=== PATIENT | female | born 1955 | race African-American/Black ===

== ENCOUNTER 2016-02-19 10:07 | Inpatient (IN) | payer OTHER ==
[~2016-02-19 10:07] MED LIST: PATIENT'S OWN MEDICATION (NON-FORMULARY) (Insulin Glargine,Hum.Rec.Anlog 15 UNITS) NS SCH
[2016-02-19] MEDS ORDERED: ALBUTEROL SO4 2.5/IPRATROPIUM 0.5 INH SOL 3 ML VIAL.NEB. NEB ONE ×4 (10:18→10:19)
[2016-02-19] MEDS ORDERED: methylPREDNISolone NA SUCC 125 MG/2 ML VIAL IVPB ONE (10:18)
--- NOTE | 2016-02-19 10:20 | PDOC ---
History of Present Illness - History of Present Illness Initial Comments: 02/19/16 11:36 The patient is a 60 year old female with a past medical hx of diabetes, asthma, HTN, seizure disorder, reflux, hyperlipidemia, hypothyroidism who presents to the ED complaining of SOB and a cough for one week. The patient notes she saw Dr. Hyde 6 days ago and was prescribed Prednisone, and her SOB has not improved. She is scheduled to see Dr. Hyde tomorrow, but was informed to come to the ED if her symptoms worsened within the week. She notes dyspnea on exertion. She states she has a Nebulizer at home and uses it 2-3 times daily with minimal relief. if not feel better then ed. The patient reports feeling this way for about 6 weeks, and was last seen in the ED on 01/28/16. The patient reports a productive cough (yellow, green sputum) that is worse in the morning and on exertion. The patient reports the last time she was given Prednisone for her SOB was about one year ago. The patient denies chest pain The patient denies abdominal pain, nausea, vomiting The patient denies dysuria frequency Allergies: Penicillin, Gabapentin Social: Former smoker Surgical: R hip replacement, bilateral knee arthroscopy, bilateral bunionectomy , cholecystectomy. PCP: Dr. Hernandez Category Consultant: Dr. Hyde <Qi Orourke - Last Filed: 02/19/16 16:31> - General History Source: Patient Exam Limitations: No Limitations <Lisbet Simpson - Last Filed: 02/20/16 08:20> - General Stated Complaint: DIFF BREATHING AND CHEST PAIN Time Seen by Provider: 02/19/16 10:17 Past History <Qi Orourke - Last Filed: 02/19/16 16:31> - Past Medical History Anemia: No Asthma: Yes Cancer: No Cardiac Disorders: No CVA: No COPD: Yes CHF: No Dementia: No Diabetes: Yes (IDDM) GI Disorders: Yes (REFLUX) Disorders: No HTN: Yes Hypercholesterolemia: Yes Liver Disease: No Seizures: Yes Thyroid Disease: Yes (HYPO) - Surgical History Abdominal Surgery: No Appendectomy: No Cardiac Surgery: No Cholecystectomy: Yes Lung Surgery: No Neurologic Surgery: No Orthopedic Surgery: Yes (08/2014 R HIP REPLACEMENT, BILAT KNEE ARTHROSCOPY, BILAT BUNIONECTOMY,) - Immunization History Immunization Up to Date: Yes - Psycho/Social/Smoking Cessation Hx Anxiety: No Suicidal Ideation: No Smoking Status: Yes Smoking History: Never smoked Have you smoked in the past 12 months: No Number of Cigarettes Smoked Daily: 0 If you are a former smoker, when did you quit?: 2004 Hx Alcohol Use: No Drug/Substance Use Hx: No Substance Use Type: None Hx Substance Use Treatment: No <Lisbet Simpson - Last Filed: 02/20/16 08:20> - Past Medical History Allergies/Adverse Reactions: Allergies Allergy/AdvReac Type Severity Reaction Status Date / Time gabapentin [From Neurontin] Allergy PALPITATIONS, Verified 02/19/16 10:22 PASSES OUT Penicillins Allergy TONGUE Verified 02/19/16 10:22 Swelling phenytoin sodium Allergy diarrhea/vo Verified 02/19/16 10:22 [From Dilantin] miting phenytoin sodium extended Allergy Verified 02/19/16 10:22 [From Dilantin] theophylline [Theophylline] Allergy diarrhea,SE Verified 02/19/16 10:22 IZURES Home Medications: Ambulatory Orders Albuterol Sulfate Inhaler - [Ventolin HFA Inhaler -] 1 - 2 inh PO QID PRN Aspirin/Calcium Carbonate/Mag [Aspirin Buffered 325 mg Tab] 325 mg PO BID Atorvastatin Ca [Lipitor] 10 mg PO DAILY 10/20/15 Biotin [Hard Nails] 5,000 mcg PO DAILY 10/20/15 Budesonide/Formeterol Fumarate [SYMBICORT 160/4.5mcg -] 1 inh PO BID 10/20/15 Carbamazepine Xr [Tegretol Xr -] 400 mg PO BID 10/20/15 Cyclobenzaprine HCl [Flexeril -] 10 mg PO BID PRN 10/20/15 Exenatide [Byetta [Non-Formulary]] 10 mcg SQ BID 10/20/15 Folic Acid 2 mg PO DAILY 10/20/15 Glipizide [Glipizide ER] 10 mg PO BID 10/20/15 Hydroxychloroquine Sulfate [Plaquenil] 200 mg PO BID 10/20/15 Insulin Glargine,Hum.rec.anlog [Lantus (nf)] 15 units SQ DAILY 10/20/15 Insulin Lispro [Humalog] 0 unit SQ ACHS 10/20/15 L.acidop,Daren,Lac,Rha/B.lac,Edmundo [Advanced Probiotic Capsule] 625 mg PO DAILY 06/29 Levothyroxine [Synthroid -] 50 mcg PO DAILY 10/20/15 Linaclotide [Linzess] 145 mcg PO DAILY 10/20/15 Losartan Potassium 50 mg PO DAILY 10/20/15 Meloxicam [Mobic (Nf) -] 15 mg PO DAILY 10/20/15 Methotrexate [Mexate -] 12.5 mg PO Q7D 10/20/15 Montelukast Na [Singulair -] 10 mg PO DAILY 10/20/15 [place]-3 Fatty Acids [[place]-3] 2 tab PO DAILY 10/20/15 Omeprazole [Prilosec] 40 mg PO DAILY 10/20/15 Sertraline HCl [Zoloft -] 100 mg PO DAILY 10/20/15 Topiramate [Trokendi Xr] 100 mg PO BID 10/20/15 Umeclidinium [place] [Incruse Ellipta] 62.5 mcg IH ASDIR 10/20/15 Review of Systems - Review of Systems Able to Perform ROS?: Yes Comments:: 02/19/16 11:48 GENERAL/CONSTITUTIONAL: No: fever, chills, weakness, loss of appetite. HEAD, EYES, EARS, NOSE AND THROAT: No: change in vision, ear pain, discharge, sore throat, throat swelling. CARDIOVASCULAR: No: chest pain, lightheadedness, palpitations, syncope RESPIRATORY: +SOB, wheezing, cough, dyspnea on exertion. No: hemoptysis, stridor. GASTROINTESTINAL: No: nausea, vomiting, abdominal cramping, diarrhea, rectal bleeding, constipation. GENITOURINARY: No: dysuria, hematuria, frequency, urgency, flank pain. MUSCULOSKELETAL: No: back pain, neck pain, joint pain, muscle swelling or pain SKIN: No: lesions, pallor, rash or easy bruising. NEUROLOGIC: No: headache, vertigo, paresthesias, weakness ENDOCRINE: No: unexplained weight gain or loss HEMATOLOGIC/LYMPHATIC: No: anemia, easy bleeding, swelling nodes <Qi Orourke - Last Filed: 02/19/16 16:31> *Physical Exam - Vital Signs Last Vital Signs Temp Pulse Resp BP Pulse Ox 98.2 F 86 20 151/86 96 02/19/16 10:12 02/19/16 10:12 02/19/16 10:12 02/19/16 10:12 02/19/16 10:12 - Physical Exam Comments: 02/19/16 11:49 GENERAL: The patient is in mild distress. HEAD: Normal with no signs of trauma. EYES: PERRLA, EOMI, sclera anicteric, conjunctiva clear. ENT: Ears normal, nares patent, oropharynx clear without exudates. Moist mucous membranes. NECK: Normal range of motion, supple without lymphadenopathy, JVD, or masses. LUNGS: +Mild respiratory distress, inspiratory and expiratory wheezes, rhonchi. HEART:Regular rate and rhythm, normal S1 and S2 without murmur, rub or gallop. ABDOMEN: Soft, nontender, normoactive bowel sounds. No guarding, no rebound. EXTREMITIES: Normal range of motion, no edema. No clubbing or cyanosis. No erythema, or tenderness. NEUROLOGICAL: Cranial nerves II through XII grossly intact. Normal speech. No focal neurological deficits. MUSCULOSKELETAL: Back nontender to palpation, no CVA tenderness SKIN: Warm, Dry, normal turgor, no rashes or lesions noted. <Qi Orourke - Last Filed: 02/19/16 16:31> Heart Score/ECG Review #1 ECG reviewed & interpreted by me at: 10:27 02/19/16 10:27 Twelve-lead EKG was performed and reviewed by me. There is normal sinus rhythm with a normal rate of 80 bpm. The axis is normal. The intervals are normal - pr : 158ms, QRS::78ms, QTc:454ms. There are no ST elevations or depressions. T waves nml <Lisbet Simpson - Last Filed: 02/20/16 08:20> ED Treatment Course - LABORATORY CBC & Chemistry Diagram: 02/19/16 10:30 02/19/16 10:30 - ADDITIONAL ORDERS Additional order review: Laboratory Results 02/19/16 10:30 Sodium 144 Potassium 4.7 Chloride 108 H Carbon Dioxide 26 Anion Gap 10 BUN 16 D Creatinine 1.0 Creat Clearance w eGFR 56.75 Random Glucose 110 H Calcium 8.3 L Total Bilirubin 0.3 D AST 50 H D ALT 25 Alkaline Phosphatase 125 H D Creatine Kinase 318 H D Troponin I 0.02 Total Protein 7.4 Albumin 3.1 L 02/19/16 10:30 RBC 3.84 MCV 89.8 MCHC 32.3 RDW 16.4 H MPV 7.3 L Neutrophils % 43.8 D Lymphocytes % 43.3 H D Monocytes % 10.9 H Eosinophils % 0.8 Basophils % 1.2 - RADIOLOGY Radiograph Interpretation: 02/19/16 11:56 Chest X-Ray A single view reveals a weak inspiration with congestive changes, rotation to the left and prominent mediastinum. Since 01/28/2016, the congestive changes have developed. Impression: Weak inspiration. Prominent mediastinum. Congestive changes. Reported By: Morgan Dawson MD 02/19/16 1103 02/19/16 16:31 Chest/Thorax CTA IMPRESSION: 1. No evidence of pulmonary embolism. 2. Limited study with chronic lung disease and no acute pathology within the chest. Reported By: Robbie Chester MD 02/19/16 1621 - Medications Given in the ED: ED Medications Discontinued Medications Generic Name Dose Route Start Last Admin Trade Name Freq PRN Reason Stop Dose Admin Albuterol/Ipratropium 1 amp 02/19/16 10:18 02/19/16 10:24 Duoneb - NEB 02/19/16 10:19 1 amp ONCE ONE Administration Albuterol/Ipratropium 1 amp 02/19/16 10:19 02/19/16 10:53 Duoneb - NEB 02/19/16 10:20 1 amp NOW ONE Administration Albuterol/Ipratropium 1 amp 02/19/16 10:19 02/19/16 10:53 Duoneb - NEB 02/19/16 10:20 1 amp ONCE ONE Administration Methylprednisolone Sodium Succinate 125 mg 02/19/16 10:18 02/19/16 10:53 Solu-Medrol - IVPB 02/19/16 10:19 125 mg ONCE ONE Administration <Qi Orourke - Last Filed: 02/19/16 16:31> - LABORATORY CBC & Chemistry Diagram: 02/19/16 10:30 02/19/16 10:30 - RADIOLOGY Radiology Studies Ordered: Category Date Time Status CHEST X-RAY PORTABLE* [RAD] Stat Radiology 02/19/16 10:18 Ordered <Lisbet Simpson - Last Filed: 02/20/16 08:20> Medical Decision Making - Medical Decision Making 02/19/16 11:[address] Hyde at 1054, awaiting call back. 02/19/16 11:50 Paged Hospitalist at 11:53. Hospitalist called back at 1200. Agrees with plan for admission. <Qi Orourke - Last Filed: 02/19/16 16:31> - Medical Decision Making 02/19/16 10:20 A portion of this note was documented by scribe services under my direction. I have reviewed the details of the note, within reason, and agree with the documentation with the following case summary and management plan written by me. Nursing documentation reviewed and incorporated into medical decision making 02/19/16 12:01 This is a 60-year-old female with a history of asthma, lupus on methotrexate who presents emergency department with severe shortness of breath Patient states that her symptoms began mid December and have been persistent and worsening Pt has had intermittent fevers PT was seen by Dr Alvarenga with no improvement in symptoms despite nebs and prednisone Pt states she felt worse today and came in to the ER for evaluation PT given Solumedrol, Nebs 02/19/16 12:05 Laboratory Tests 02/19/16 02/19/16 10:30 10:30 WBC 9.2 Hgb 11.1 Hct 34.5 Plt Count 345 Neutrophils % 43.8 D Lymphocytes % 43.3 H D BUN 16 D Creatinine 1.0 Random Glucose 110 H Creatine Kinase 318 H D Troponin I 0.02 CXR: congestion, poor inspiratory effort Pt went to the bathroom and became very tachypneic Nebs given again Pt given Magnesium Will Admit Case reviewed with Dr. Alvarenga Will admit to Dr Caldwell <Lisbet Simpson - Last Filed: 02/20/16 08:20> *DC/Admit/Observation/Transfer - Attestations Scribe Attestion: 02/19/16 11:37 Documentation prepared by Qi Orourke, acting as medical record librarian for Lisbet Simpson MD/DO. <Qi Orourke - Last Filed: 02/19/16 16:31> - Discharge Dispostion Admit: Yes <Lisbet Simpson - Last Filed: 02/20/16 08:20> Diagnosis at time of Disposition: Asthma exacerbation - Discharge Dispostion Condition at time of disposition: Stable - Referrals
[2016-02-19] MEDS ORDERED: methylPREDNISolone NA SUCC 125 MG/2 ML VIAL ONE ×2 (10:51→14:02)
[2016-02-19 11:00] LABS: BASOPHIL 1.2 % (0-2.0); EOSINOPHIL 0.8 % (0-4.5); MCHC 32.3 g/dl (32.0-36.0); MEAN CELL VOLUME 89.8 fl (80-96); MEAN PLT VOLUME 7.3 fl (7.5-11.1); NEUTROPHILS 43.8 % (42.8-82.8); PLATELET COUNT 345 K/MM3 (134-434); RDW 16.4 % (11.6-15.6); WHITE BLOOD COUNT 9.2 K/mm3 (4.0-10.0)
[2016-02-19] MEDS ORDERED: MAGNESIUM SULF 50% (8.12 MEQ/2 ML-1 GM VIAL) IVPB ONE ×2 (11:19→11:48)
[2016-02-19 11:20] LABS: ALBUMIN 3.1 g/dl (3.4-5.0); BILIRUBIN,TOTAL 0.3 mg/dL (0.2-1.0); CALCIUM 8.3 mg/dL (8.5-10.1); TOT PROT 7.4 g/dl (6.4-8.2)
[2016-02-19] MEDS ORDERED: MAGNESIUM SULF 50% (8.12 MEQ/2 ML-1 GM VIAL) ONE (11:20)
[2016-02-19 11:22] LABS: TROPONIN I 0.02 ng/ml (0.00-0.05)
[2016-02-19] MEDS: ALBUTEROL SO4 2.5/IPRATROPIUM 0.5 INH SOL 3 ML VIAL.NEB. NEB SCH ×2 (12:30→23:13)
[2016-02-19] MEDS ORDERED: ALBUTEROL SO4 2.5/IPRATROPIUM 0.5 INH SOL 3 ML VIAL.NEB. NEB PRN (13:56)
[2016-02-19] MEDS: methylPREDNISolone NA SUCC 40 MG/1 ML VIAL IVPB SCH ×2 (14:06→18:53)
--- NOTE | 2016-02-19 14:31 | HP ---
CHIEF COMPLAINT: PCP: Dr. Hernandez Corner Cutter: Dr. Hyde HISTORY OF PRESENT ILLNESS: The patient is a 60 year old female, with a significant past medical history of asthma,slupus, seizure (last 2009), syncope, COPD, sleep apnea on cpap, type 2 DM, hyperlipidemia, hypothyroidism,who presents to ED with SOB. patient reports progressive SOb started about a month ago. reports an associated non bloody productive(clear, yellow/green). patient rports using her reports using her rescue inhaler with increased frequency without any help so decided to come to ED.patient is compliant with all her medications, including her asthma meds. patient visited Dr Gibbs (pulmonary) 6 days ago and on a prednisone taper, nebulizers, inhalers patient continued to worsen. patient was instructed by Dr. gibbs to go to ED if symptoms worsen. patient also reports constant chest pain that is stabbing radiating to the back especially with coughing. She notes dyspnea on exertion. Patient reports a new bilateral food swelling and redness that started 1month ago. Patient no history of intubtion 2/2 to asthma exacerbation. The patient denies fever, chills, cough, hemoptysis, diaphoresis, shortness of breath, headache, jaw, calf tenderness/ pain The patient denies recent travel, recent surgery, recent immobilization. The patient denies abdominal pain,nausea, vomiting, diarrhea, hematochezia, melena ER course was notable for: (1)EKG, oxygen (2)UA, CBC w/ diff, cmp, cardiac profile (3)albuterol/ipratropium, Magnesium, methylpredisolone Recent Travel: NO Allergies: Penicillin, Gabapentin Social: Former smoker Surgical: R hip replacement, bilateral knee arthroscopy, bilateral bunionectomy , cholecystectomy. Family History: Allergies gabapentin [From Neurontin] Allergy (Verified 02/19/16 10:22) PALPITATIONS, PASSES OUT Penicillins Allergy (Verified 02/19/16 10:22) TONGUE Swelling phenytoin sodium [From Dilantin] Allergy (Verified 02/19/16 10:22) diarrhea/vomiting phenytoin sodium extended [From Dilantin] Allergy (Verified 02/19/16 10:22) theophylline [Theophylline] Allergy (Verified 02/19/16 10:22) diarrhea,SEIZURES HOME MEDICATIONS: Medication Instructions Recorded Albuterol Sulfate Inhaler - 1 - 2 inh PO QID PRN 01/04/13 [Ventolin HFA Inhaler -] Aspirin/Calcium Carbonate/Mag 325 mg PO BID 10/20/15 [Aspirin Buffered 325 mg Tab] Atorvastatin Ca [Lipitor] 10 mg PO DAILY 10/20/15 Biotin [Hard Nails] 5,000 mcg PO DAILY 10/20/15 Budesonide/Formeterol Fumarate 1 inh PO BID 10/20/15 [SYMBICORT 160/4.5mcg -] Carbamazepine Xr [Tegretol Xr -] 400 mg PO BID 10/20/15 Cyclobenzaprine HCl [Flexeril -] 10 mg PO BID PRN 10/20/15 Exenatide [Byetta [Non-Formulary]] 10 mcg SQ BID 10/20/15 Folic Acid 2 mg PO DAILY 10/20/15 Glipizide [Glipizide ER] 10 mg PO BID 10/20/15 Hydroxychloroquine Sulfate 200 mg PO BID 10/20/15 [Plaquenil] Insulin Glargine,Hum.rec.anlog 15 units SQ DAILY 10/20/15 [Lantus (nf)] Insulin Lispro [Humalog] 0 unit SQ ACHS 10/20/15 L.acidop,Daren,Lac,Rha/B.lac,Edmundo 625 mg PO DAILY 10/20/15 [Advanced Probiotic Capsule] Levothyroxine [Synthroid -] 50 mcg PO DAILY 10/20/15 Linaclotide [Linzess] 145 mcg PO DAILY 10/20/15 Losartan Potassium 50 mg PO DAILY 10/20/15 Meloxicam [Mobic (Nf) -] 15 mg PO DAILY 10/20/15 Methotrexate [Mexate -] 12.5 mg PO Q7D 10/20/15 Montelukast Na [Singulair -] 10 mg PO DAILY 10/20/15 [place]-3 Fatty Acids [[place]-3] 2 tab PO DAILY 10/20/15 Omeprazole [Prilosec] 40 mg PO DAILY 10/20/15 Sertraline HCl [Zoloft -] 100 mg PO DAILY 10/20/15 Topiramate [Trokendi Xr] 100 mg PO BID 10/20/15 Umeclidinium [place] [Incruse 62.5 mcg IH ASDIR 10/20/15 Ellipta] Active Medications Generic Name Dose Route Start Last Admin Trade Name Freq PRN Reason Stop Dose Admin Albuterol Sulfate 2 puff 02/19/16 17:21 Ventolin Hfa Inhaler - IH Q6H PRN ASTHMA Albuterol Sulfate 1 puff 02/19/16 18:09 Ventolin Hfa Inhaler - IH Q6H PRN ASTHMA Albuterol/Ipratropium 1 amp 02/19/16 12:00 02/19/16 12:30 Duoneb - NEB 1 amp QIDR [facility] Administration Atorvastatin Calcium 10 mg 02/19/16 22:00 Lipitor - PO HS [facility] Budesonide/Formoterol Fumarate 1 puff 02/19/16 22:00 Symbicort 160/4.5mcg - IH BID [facility] Carbamazepine 400 mg 02/19/16 22:00 Tegretol Xr - PO BID [facility] Cyclobenzaprine HCl 10 mg 02/19/16 17:21 Flexeril - PO BID PRN PAIN Folic Acid 2 mg 02/20/16 10:00 Folic Acid - PO DAILY [facility] Heparin Sodium (Porcine) 5,000 unit 02/19/16 22:00 Heparin - SQ TID [facility] Hydroxychloroquine Sulfate 200 mg 02/19/16 22:00 Plaquenil - PO BID [facility] Insulin Aspart 0 units 02/19/16 22:00 Novolog Vial SQ ACHS [facility] Protocol Levothyroxine Sodium 50 mcg 02/20/16 07:00 Synthroid - PO DAILY@0700 [facility] Losartan Potassium 50 mg 02/20/16 10:00 Cozaar - PO DAILY [facility] Methotrexate 12.5 mg 02/19/16 17:00 Mexate - PO Q7D [facility] Methylprednisolone Sodium Succinate 60 mg 02/19/16 14:00 02/19/16 18:53 Solu-Medrol - IVPB 60 mg Q8H-IV [facility] Administration Montelukast Sodium 10 mg 02/20/16 10:00 Singulair - PO DAILY [facility] Non-Formulary Medication 325 mg 02/19/16 22:00 Aspirin/Calcium Carbonate/Mag [Aspirin Buffered 325 Mg Tab] PO BID [facility] Non-Formulary Medication 5,000 mcg 02/20/16 10:00 Biotin [Hard Nails] PO DAILY [facility] Non-Formulary Medication 15 units 02/19/16 10:00 Insulin Glargine,Hum.Rec.Anlog NS DAILY [facility] Non-Formulary Medication 625 mg 02/20/16 10:00 L.Acidop,Daren,Lac,Rha/B.Lac,Edmundo [Advanced Probiotic Capsule] PO DAILY [facility] Non-Formulary Medication 145 mcg 02/20/16 10:00 Linaclotide [Linzess] PO DAILY DONTA Non-Formulary Medication 15 mg 02/20/16 10:00 Meloxicam PO DAILY DONTA Non-Formulary Medication 2 tab 02/20/16 10:00 [place]-3 Fatty Acids [[place]-3] PO DAILY DONTA Non-Formulary Medication 100 mg 02/19/16 22:00 Topiramate [Trokendi Xr] PO BID DONTA Non-Formulary Medication 62.5 mcg 02/19/16 17:00 Umeclidinium [place] [Incruse Ellipta] IH ASDIR [facility] Pantoprazole Sodium 40 mg 02/20/16 10:00 Protonix - PO DAILY [facility] Sertraline HCl 100 mg 02/20/16 10:00 Zoloft - PO DAILY [facility] REVIEW OF SYSTEMS CONSTITUTIONAL: obese changed voice. Absent: fever, chills, diaphoresis, generalized weakness, malaise, loss of appetite, weight change, HEENT: Absent: rhinorrhea, nasal congestion, throat pain, throat swelling, difficulty swallowing, mouth swelling, ear pain, eye pain, visual changes CARDIOVASCULAR: chest pain, peripheral edema Absent: syncope, palpitations, irregular heart rate, lightheadedness, RESPIRATORY: cough, shortness of breath, dyspnea with exertion, orthopnea, wheezing, Absent: stridor, hemoptysis GASTROINTESTINAL:nausea, vomiting, Absent: abdominal pain, abdominal distension, diarrhea, constipation, melena, hematochezia GENITOURINARY: Absent: dysuria, frequency, urgency, hesitancy, hematuria, flank pain, genital pain MUSCULOSKELETAL: myalgia,arthralgia, joint swelling, back pain, Absent: neck pain SKIN: Absent: rash, itching, pallor HEMATOLOGIC/IMMUNOLOGIC: Absent: easy bleeding, easy bruising, lymphadenopathy, frequent infections ENDOCRINE: Absent: unexplained weight gain, unexplained weight loss, heat intolerance, cold intolerance NEUROLOGIC: Absent: headache, focal weakness or paresthesias, dizziness, unsteady gait, seizure, mental status changes, bladder or bowel incontinence PSYCHIATRIC: Absent: anxiety, depression, suicidal or homicidal ideation, hallucinations. PHYSICAL EXAMINATION GENERAL: Awake, alert, and fully oriented, in respiratory acute distress. mermaid obese changed voice. HEAD: Normal with no signs of trauma. EYES: Pupils equal, round and reactive to light, extraocular movements intact, sclera anicteric, conjunctiva clear. No lid lag. EARS, NOSE, THROAT: Ears normal, nares patent, oropharynx clear without exudates. Moist mucous membranes. NECK: Normal range of motion, supple without lymphadenopathy, JVD, or masses. LUNGS: Breath sounds equal, clear to auscultation bilaterally. wheezes right middle lobe , diffused rhonchi , and no crackles. No accessory muscle use. 2L NC saturating 94% HEART: distent heart sounds, not appreciated ABDOMEN: obese, Soft, nontender, not distended, normoactive bowel sounds, no guarding, no rebound, no masses. No hepatomegaly or splenomegaly. MUSCULOSKELETAL: Normal range of motion at all joints. No bony deformities or tenderness. No CVA tenderness. LOWER EXTREMITIES: 2+ pulses, warm, well-perfused. No calf tenderness. No peripheral edema. NEUROLOGICAL: Cranial nerves II-XII intact. Normal gait. PSYCHIATRIC: Cooperative. Good eye contact. Appropriate mood and affect. SKIN: Warm, dry, normal turgor, no rashes or lesions noted. US lower ext: Left lower leg soft tissue swelling, no DVT CTA chest: There is good opacification of the central pulmonary vasculature with no filling defects suspicious for pulmonary embolism. The lung griggs are free of pulmonary masses, areas of acute consolidation or pleural effusions. There are areas of groundglass opacification scattered throughout the lungs, as well as platelike atelectasis within the left lower lobe. These changes are most likely chronic in nature. Clinical correlation is advised. No mediastinal masses, fluid collections or significant lymphadenopathy are identified. The heart is not enlarged. There is no evidence of thoracic aortic aneurysm or dissection. Limited evaluation of the upper abdomen demonstrates no acute abnormalities. IMPRESSION: 1. No evidence of pulmonary embolism. 2. Limited study with chronic lung disease and no acute pathology within the chest. EKG: Normal sinus, @ 80bpm, LA 158, Qrs 78, Qtc 454, normal axes, no st t wave changes,LVH, ASSESSMENT/PLAN: This is a 60 year old female with PMHx of asthma, morbid obesity, diabetes, lupus, seizures, who presented to the ED s/p progressive SOB found to be in an asthma exacerbation, also complained of chest pain. # respiratory acute distress, Shortness of breath, likely multifactorial, SOB refractory on asthma regiment with PO steroids, possibly secondary to SLE pulmonary manifestation chest pain 93% with out a pleural effusion, will need to r/o cardiac, infection, drug toxicity, malignancy, on CXR, leg swelling and SOB, CTA (no PE ,acute changes, chronic, no Aortic aneurism, no fluid collection) - echocardiogram - IV steroids - Continue Singulair - Continue Symbicort - Continue Duonebs - (Umeclidinium [place] [Incruse Ellipta]) 62.5 mcg - BNP - eccho -IV lasix trial -Pulmonary consult # chest Pain - Monitor on telemetry - Serial cardiac enzymes - chest CTA # Systemic lupus erythematosus: - Continue Plaquenil - Continue Methotrexate # lower leg erythema and swelling: possible cellulitis vs venous stasis. -US BLLE no DVT, soft tissue swelling. # Type 2 diabetes mellitus - levimir - ISS ACHS - BGM ACHS # Hypertension - Continue Cozaar # Hyperlipidemia - Continue Lipitor # Hypothyroidism - Continue Synthroid - Check TSH # CKD stage 3: - Cr stable, continue to monitor # Seizure disorder - Continue Topamax, Tegretol # Chronic back pain -Cyclobenzaprine HCl (Flexeril) #GERD -Pantoprazole Sodium # major Depression -Sertraline HCl (Zoloft -) # F/E/N: - Monitor electrolytes - Diabetic low Na+ diet # Prophylaxis: - OOB ambulating - SCDs bilaterally Visit type - Emergency Visit Emergency Visit: Yes ED Registration Date: 02/19/16 Care time: The patient presented to the Emergency Department on the above date and was hospitalized for further evaluation of their emergent condition. - New Patient This patient is new to me today: No - Critical Care Critical Care patient: No
--- NOTE | 2016-02-19 14:56 | PN ---
Teaching Attending Note Name of Resident: Raleigh Bell ATTENDING PHYSICIAN STATEMENT I saw and evaluated the patient. I reviewed the resident's note and discussed the case with the resident. I agree with the resident's findings and plan as documented. SUBJECTIVE: This is a 60-year-old woman with a history of asthma, HTN, type 2 DM , hyperlipidemia, hypothyroidism, lupus and seizure disorder who comes to the ER today complaining of shortness of breath. She has been having symptoms for about one month. She saw Dr. Hyde around one week ago and was prescribed a Prednisone taper which she is still taking. Despite Prednisone, inhalers and nebulizers, she has not improved. She also reports intermittent chest pain and swelling of her legs for about one month. OBJECTIVE: Last Vital Signs Temp Pulse Resp BP Pulse Ox 98.2 F 86 20 151/86 96 02/19/16 10:12 02/19/16 10:12 02/19/16 10:12 02/19/16 10:12 02/19/16 10:12 HEART: S1 S2, RRR LUNGS: Diminished BS, wheezes bilaterally ABDOMEN: Obese, soft, non-tender, non-distended, normal BS EXTREMITIES: 1+ edema ASSESSMENT AND PLAN: This is a 60-year-old woman with a history of asthma, HTN, type 2 DM, hyperlipidemia, hypothyroidism, lupus and seizure disorder who presented to the ER with shortness of breath. 1. Asthma exacerbation - Failed outpatient treatment with Prednisone - SoluMedrol, DuoNeb - Continue Singulair - Chest CTA - Pulmonary consult 2. Possible acute CHF - Lasix IV x 1 - Check BNP - Echocardiogram 3. Chest pain - Monitor on telemetry - Serial troponins - Echocardiogram 4. Hypertension - Continue Cozaar 5. Hyperlipidemia - Continue Lipitor 6. Type 2 diabetes mellitus - Hold Glipizide, Byetta - Continue Lantus - Fingersticks with Novolog sliding scale 7. Hypothyroidism - Continue Synthroid 8. Seizure disorder - Continue Tegretol, Topamax 9. Lupus - Continue Plaquenil, Methotrexate 10. Stage 3 CKD - Stable
--- NOTE | 2016-02-19 16:38 | EKG ---
Test Reason : Blood Pressure : / mmHG Vent. Rate : 080 BPM Atrial Rate : 080 BPM P-R Int : 158 ms QRS Dur : 078 ms QT Int : 394 ms P-R-T Axes : 036 -20 050 degrees QTc Int : 454 ms NORMAL SINUS RHYTHM VOLTAGE CRITERIA FOR LEFT VENTRICULAR HYPERTROPHY NONSPECIFIC ST ABNORMALITY ABNORMAL ECG WHEN COMPARED WITH ECG OF 28-JAN-2016 10:53, NO SIGNIFICANT CHANGE WAS FOUND Confirmed by ROSYS RODRIGUES MD ([id number]) on 02/19/2016 4:37:47 PM Referred By: Confirmed By:ROSSY RODRIGUES MD
[2016-02-19] MEDS ORDERED: FUROSEMIDE 40 MG/4 ML INJECTABLE VIAL IVPUSH ONE (16:50)
[2016-02-19] MEDS ORDERED: ALBUTEROL SO4 6.7 GM HFA INHALER IH PRN ×2 (17:21→18:09)
--- NOTE | 2016-02-19 18:23 | CONSULT ---
Consult Consult Specialty:: Pulmnonary Reason for Consultation:: Dyspnea - History of Present Illness Chief Complaint: shortness of breath History of Present Illness: Pt was seen in the emergency room 60 year old lady admitted with increasing shortness of breath.Pt has had increasing dyspnea despite tx with bronchodilators and course Prednisone as an outpt. Patient has a history of COPD, DANY and uses CPAP at home. She denies recent chest pain or palpitations or fever. She has had some sputum production - History Source History Provided By: Patient, Medical Record Limitations to Obtaining History: No Limitations - Past Medical History [employer]: Yes: Seizure, Syncope Pulmonary: Yes: Asthma ...LMP: 03/18/01 Rheumatology: Yes: Lupus Endocrine: Yes: Diabetes Mellitus - Past Surgical History Past Surgical History: Yes: Joint Replacement (Right total hip replacement) - Alcohol/Substance Use Hx Alcohol Use: No History of Substance Use: reports: None - Smoking History Smoking history: Never smoked Have you smoked in the past 12 months: No Aproximately how many cigarettes per day: 0 If you are a former smoker, when did you quit?: 2004 - Social History ADL: Independent History of Recent Travel: No Home Medications - Allergies Allergies/Adverse Reactions: Allergies Allergy/AdvReac Type Severity Reaction Status Date / Time gabapentin [From Neurontin] Allergy PALPITATIONS, Verified 02/19/16 10:22 PASSES OUT Penicillins Allergy TONGUE Verified 02/19/16 10:22 Swelling phenytoin sodium Allergy diarrhea/vo Verified 02/19/16 10:22 [From Dilantin] miting phenytoin sodium extended Allergy Verified 02/19/16 10:22 [From Dilantin] theophylline [Theophylline] Allergy diarrhea,SE Verified 02/19/16 10:22 IZURES - Home Medications Home Medications: Ambulatory Orders Albuterol Sulfate Inhaler - [Ventolin HFA Inhaler -] 1 - 2 inh PO QID PRN Aspirin/Calcium Carbonate/Mag [Aspirin Buffered 325 mg Tab] 325 mg PO BID Atorvastatin Ca [Lipitor] 10 mg PO DAILY 10/20/15 Biotin [Hard Nails] 5,000 mcg PO DAILY 10/20/15 Budesonide/Formeterol Fumarate [SYMBICORT 160/4.5mcg -] 1 inh PO BID 10/20/15 Carbamazepine Xr [Tegretol Xr -] 400 mg PO BID 10/20/15 Cyclobenzaprine HCl [Flexeril -] 10 mg PO BID PRN 10/20/15 Exenatide [Byetta [Non-Formulary]] 10 mcg SQ BID 10/20/15 Folic Acid 2 mg PO DAILY 10/20/15 Glipizide [Glipizide ER] 10 mg PO BID 10/20/15 Hydroxychloroquine Sulfate [Plaquenil] 200 mg PO BID 10/20/15 Insulin Glargine,Hum.rec.anlog [Lantus (nf)] 15 units SQ DAILY 10/20/15 Insulin Lispro [Humalog] 0 unit SQ ACHS 10/20/15 L.acidop,Daren,Lac,Rha/B.lac,Edmundo [Advanced Probiotic Capsule] 625 mg PO DAILY 06/29 Levothyroxine [Synthroid -] 50 mcg PO DAILY 10/20/15 Linaclotide [Linzess] 145 mcg PO DAILY 10/20/15 Losartan Potassium 50 mg PO DAILY 10/20/15 Meloxicam [Mobic (Nf) -] 15 mg PO DAILY 10/20/15 Methotrexate [Mexate -] 12.5 mg PO Q7D 10/20/15 Montelukast Na [Singulair -] 10 mg PO DAILY 10/20/15 [place]-3 Fatty Acids [[place]-3] 2 tab PO DAILY 10/20/15 Omeprazole [Prilosec] 40 mg PO DAILY 10/20/15 Sertraline HCl [Zoloft -] 100 mg PO DAILY 10/20/15 Topiramate [Trokendi Xr] 100 mg PO BID 10/20/15 Umeclidinium [place] [Incruse Ellipta] 62.5 mcg IH ASDIR 10/20/15 Physical Exam Vital Sings: Vital Signs Temperature 98.2 F 02/19/16 10:12 Pulse Rate 88 02/19/16 17:30 Respiratory Rate 20 02/19/16 10:12 Blood Pressure 142/72 02/19/16 17:30 O2 Sat by Pulse Oximetry (%) 96 02/19/16 10:12 Constitutional: Yes: Obese Eyes: No: Sclera Icterus HENT: Yes: Atraumatic, Normocephalic Neck: Yes: Supple, Trachea Midline Cardiovascular: Yes: Regular Rate and Rhythm. No: JVD Respiratory: Yes: Diminished (bilateral) ...Percussion: No: Dullnes, Hyperresonance ...Clubbing: No Gastrointestinal: Yes: Soft. No: Hepatomegaly, Splenomegaly, Tenderness Extremities: No: Calf Tenderness Edema: Yes Edema: LLE: 1+, RLE: 1+ Neurological: Yes: Alert, Oriented Imaging - Results Chest X-ray: Report Reviewed, Image Reviewed Cat Scan: Report Reviewed, Image Reviewed Problem List - Problems (1) Acute exacerbation of chronic obstructive pulmonary disease (COPD) Code(s): J44.1 - CHRONIC OBSTRUCTIVE PULMONARY DISEASE W (ACUTE) EXACERBATION (2) CHF (congestive heart failure) Code(s): I50.9 - HEART FAILURE, UNSPECIFIED (3) Sleep apnea, obstructive Code(s): G47.33 - OBSTRUCTIVE SLEEP APNEA (ADULT) (PEDIATRIC) (4) Morbid obesity Code(s): E66.01 - MORBID (SEVERE) OBESITY DUE TO EXCESS CALORIES Assessment/Plan Pat seen in E.R. 60 year old woman with acute exacerbation COPD. Patient has DANY on CPAP and morbid obesity. Pt may have CHF in addition. Plan: Pt to use her own CPAP machine at night and PRN Maintain SaO2> 90 IV steroids Inhaled bronchodilators Diuretic Thank you for referring this patient for consultation.
[2016-02-19] MEDS: HEPARIN NA (PORCINE) 5,000 UNITS/ML 1ML VIAL SQ SCH (23:49)
[2016-02-19] MEDS: carBAMazepine XR 400 MG TAB.ER.12H PO SCH (23:50)
[2016-02-19] MEDS: ATORVASTATIN CA 10 MG TABLET (FP) PO SCH (23:50)
[2016-02-19] MEDS: INSULIN SLIDING SCALE (NOVOLOG) 1 VIAL SQ SCH (23:50)
[2016-02-19] MEDS: HYDROXYCHLOROQUINE SO4 200 MG TABLET (FP) PO SCH (23:51)
[2016-02-19] MEDS: BUDESONIDE/FORMETEROL FUMARATE 160/4.5 mcg INHALER IH SCH (23:52)
[2016-02-19] MEDS: TOPIRAMATE 100 MG PO SCH (23:53)
[2016-02-19] MEDS: INSULIN DETEMIR 100 UNITS/ML MDV SQ SCH (23:54)
[2016-02-20 01:24] VITALS: BMI 49.0
[2016-02-20] MEDS: methylPREDNISolone NA SUCC 40 MG/1 ML VIAL IVPB SCH ×3 (02:08→18:33)
[2016-02-20 03:35] LABS: URINE APPEARANCE SLCLOUDY; URINE BILIRUBIN NEGATIVE (NEGATIVE); URINE BLOOD NEGATIVE (NEGATIVE); URINE COLOR YELLOW; URINE GLUCOSE (UA) 1+ (NEGATIVE); URINE KETONE NEGATIVE (NEGATIVE); URINE NITRITE NEGATIVE (NEGATIVE); URINE PROTEIN NEGATIVE (NEGATIVE); URINE UROBILINOGEN NEGATIVE E.U./dl (0.2-1.0)
[2016-02-20 03:58] LABS: URINE LEUK ESTERASE TRACE (NEGATIVE)
[2016-02-20 04:20] LABS: URINE BACTERIA FEW /hpf (NONE SEEN); URINE MUCUS RARE; URINE RBC 2 /hpf (0-3); URINE WBC 1 /hpf (3-5)
[2016-02-20] MEDS: ALBUTEROL SO4 2.5/IPRATROPIUM 0.5 INH SOL 3 ML VIAL.NEB. NEB SCH ×2 (06:20→11:41)
[2016-02-20] MEDS: HEPARIN NA (PORCINE) 5,000 UNITS/ML 1ML VIAL SQ SCH ×3 (06:36→21:41)
[2016-02-20] MEDS: INSULIN SLIDING SCALE (NOVOLOG) 1 VIAL SQ SCH ×4 (06:36→21:43)
[2016-02-20] MEDS: LEVOTHYROXINE NA 50 MCG TABLET (FP) PO SCH (06:38)
[2016-02-20 07:46] LABS: BASOPHIL 1.1 % (0-2.0); EOSINOPHIL 0.1 % (0-4.5); MCH 29.4 pg (25.7-33.7); MCHC 32.6 g/dl (32.0-36.0); MEAN CELL VOLUME 90.1 fl (80-96); MEAN PLT VOLUME 7.7 fl (7.5-11.1); NEUTROPHILS 77.9 % (42.8-82.8); PLATELET COUNT 354 K/MM3 (134-434); RDW 16.2 % (11.6-15.6); WHITE BLOOD COUNT 12.8 K/mm3 (4.0-10.0)
[2016-02-20 07:49] LABS: INR 1.06 (0.82-1.09); PROTHROMBIN TIME (PATIENT) 11.7 SEC (9.98-11.88)
--- NOTE | 2016-02-20 08:13 | PN ---
<Raleigh Bell - Last Filed: 02/20/16 21:38> Physical Exam: SUBJECTIVE: Patient seen and examined at bed side. patient reports slight improvment from yesterday still sob. coughed all night D/c SCD as patient is on heparin sq denies chest pain, palpitations, N/V/D, fevers, chills, no other complaints. OBJECTIVE: Vital Signs Period Temp Pulse Resp BP Sys/[place] Pulse Ox Last 24 Hr 98.0 F-98.8 F 70-88 18-22 134-146/54-76 94 GENERAL: Awake, alert, and fully oriented, in respiratory mild acute distress. morbid obese, changed voice. HEAD: Normal with no signs of trauma. EYES: Pupils equal, round and reactive to light, extraocular movements intact, sclera anicteric, conjunctiva clear. No lid lag. EARS, NOSE, THROAT: Ears normal, nares patent, oropharynx clear without exudates. Moist mucous membranes. NECK: Normal range of motion, supple without lymphadenopathy, JVD, or masses. LUNGS: Breath sounds equal, clear to auscultation bilaterally. wheezes right anterior lung griggs ,no rhonchi , and no crackles. No accessory muscle use. HEART: distent heart sounds, not appreciated ABDOMEN: Obese, Soft, nontender, not distended, normoactive bowel sounds, no guarding, no rebound, no masses. No hepatomegaly or splenomegaly. MUSCULOSKELETAL: Normal range of motion at all joints. No bony deformities or tenderness. No CVA tenderness. LOWER EXTREMITIES: 2+ pulses, warm, well-perfused. No calf tenderness. BLLE +2 peripheral edema. NEUROLOGICAL: Cranial nerves II-XII intact. PSYCHIATRIC: Cooperative. Good eye contact. Appropriate mood and affect. SKIN: Warm, dry, normal turgor, no rashes or lesions noted. Laboratory Results - last 24 hr 02/19/16 02/20/16 02/20/16 23:38 02:50 06:00 INR 1.06 POC Glucometer 238 Urine Color Yellow Urine Appearance Slcloudy Urine pH 6.0 Ur Specific [place] 1.034 Urine Protein Negative Urine Glucose (UA) 1+ H Urine Ketones Negative Urine Blood Negative Urine Nitrite Negative Urine Bilirubin Negative Urine Urobilinogen Negative Ur Leukocyte Esterase Trace H Urine RBC 2 Urine WBC 1 Ur Epithelial Cells Few Urine Bacteria Few Urine Mucus Rare 02/20/16 06:34 INR POC Glucometer 261 Urine Color Urine Appearance Urine pH Ur Specific [place] Urine Protein Urine Glucose (UA) Urine Ketones Urine Blood Urine Nitrite Urine Bilirubin Urine Urobilinogen Ur Leukocyte Esterase Urine RBC Urine WBC Ur Epithelial Cells Urine Bacteria Urine Mucus Active Medications Generic Name Dose Route Start Last Admin Trade Name Freq PRN Reason Stop Dose Admin Albuterol Sulfate 2 puff 02/19/16 17:21 Ventolin Hfa Inhaler - IH Q6H PRN ASTHMA Albuterol Sulfate 1 puff 02/19/16 18:09 Ventolin Hfa Inhaler - IH Q6H PRN ASTHMA Albuterol/Ipratropium 1 amp 02/19/16 12:00 02/20/16 06:20 Duoneb - NEB 1 amp QIDR DONTA Administration Atorvastatin Calcium 10 mg 02/19/16 22:00 02/19/16 23:50 Lipitor - PO 10 mg HS DONTA Administration Budesonide/Formoterol Fumarate 1 puff 02/19/16 22:00 02/19/16 23:52 Symbicort 160/4.5mcg - IH 1 pfu BID DONTA Administration Carbamazepine 400 mg 02/19/16 22:00 02/19/16 23:50 Tegretol Xr - PO 400 mg BID DONTA Administration Cyclobenzaprine HCl 10 mg 02/19/16 17:21 Flexeril - PO BID PRN PAIN Folic Acid 2 mg 02/20/16 10:00 Folic Acid - PO DAILY [facility] Heparin Sodium (Porcine) 5,000 unit 02/19/16 22:00 02/20/16 06:36 Heparin - SQ 5,000 unit TID DONTA Administration Hydroxychloroquine Sulfate 200 mg 02/19/16 22:00 02/19/16 23:51 Plaquenil - PO 200 mg BID DONTA Administration Insulin Aspart 1 vial 02/19/16 22:00 02/20/16 06:36 Novolog Vial Sliding Scale - SQ 6 units ACHS DONTA Administration Protocol Insulin Detemir 18 units 02/19/16 23:30 02/19/16 23:54 Levemir Vial SQ 18 units HS DONTA Administration Levothyroxine Sodium 50 mcg 02/20/16 07:00 02/20/16 06:38 Synthroid - PO 50 mcg DAILY@0700 DONTA Administration Losartan Potassium 50 mg 02/20/16 10:00 Cozaar - PO DAILY [facility] Methotrexate 12.5 mg 02/26/16 10:00 Mexate - PO Th@1000 [facility] Methylprednisolone Sodium Succinate 60 mg 02/19/16 14:00 02/20/16 02:08 Solu-Medrol - IVPB 60 mg Q8H-IV DONTA Administration Montelukast Sodium 10 mg 02/20/16 10:00 Singulair - PO DAILY [facility] Non-Formulary Medication 325 mg 02/19/16 22:00 Aspirin/Calcium Carbonate/Mag [Aspirin Buffered 325 Mg Tab] PO BID DONTA Non-Formulary Medication 5,000 mcg 02/20/16 10:00 Biotin [Hard Nails] PO DAILY [facility] Non-Formulary Medication 625 mg 02/20/16 10:00 L.Acidop,Daren,Lac,Rha/B.Lac,Edmundo [Advanced Probiotic Capsule] PO DAILY [facility] Non-Formulary Medication 145 mcg 02/20/16 10:00 Linaclotide [Linzess] PO DAILY [facility] Non-Formulary Medication 15 mg 02/20/16 10:00 Meloxicam PO DAILY [facility] Non-Formulary Medication 2 tab 02/20/16 10:00 [place]-3 Fatty Acids [[place]-3] PO DAILY [facility] Patient's Own 100 mg 02/19/16 22:00 02/19/16 23:53 Medication (Non- PO 100 mg Formulary) ( BID DONTA Administration Topiramate 100 Mg) Non-Formulary Medication 62.5 mcg 02/19/16 17:00 Umeclidinium [place] [Incruse Ellipta] IH ASDIR [facility] Pantoprazole Sodium 40 mg 02/20/16 10:00 Protonix - PO DAILY [facility] Sertraline HCl 100 mg 02/20/16 10:00 Zoloft - PO DAILY [facility] echo: mild concentric LVH, mild MR, mild TR, RV systolic pressure elevated, no pericardial effusion. ASSESSMENT/PLAN: This is a 60 year old female with PMHx of asthma, morbid obesity, diabetes, lupus, seizures, who presented to the ED s/p progressive SOB found to be in an asthma exacerbation, also complained of chest pain. # Acute respiratory distress, likely multifactorial, SOB refractory on asthma regiment with PO steroids, possibly secondary to SLE pulmonary manifestation chest pain 93% with out a pleural effusion, will need to r/o cardiac, infection , drug toxicity, malignancy, CTA (no PE ,acute changes, chronic, no Aortic aneurism, no fluid collection) - IV steroids - Continue Singulair - Continue Symbicort - Continue Duonebs - (Umeclidinium [place] [Incruse Ellipta]) 62.5 mcg - BNP- 299 -Pulmonary consult # chest Pain - Monitor on telemetry - Serial troponin negative x3 # Systemic lupus erythematosus: - Continue Plaquenil - Continue Methotrexate -on steroids # lower leg erythema and swelling: possible cellulitis vs venous stasis. -US BLLE no DVT, soft tissue swelling. # Type 2 diabetes mellitus - levimir - ISS ACHS - BGM ACHS # Hypertension - Continue Cozaar # Hyperlipidemia - Continue Lipitor # Hypothyroidism - Continue Synthroid - Check TSH wNL # CKD stage 3: increased creatinine from yesterday maybe prerenal azotemia secondary to lasix, - Cr stable, continue to monitor # Seizure disorder - Continue Topamax, Tegretol # Chronic back pain -Cyclobenzaprine HCl (Flexeril) #GERD -Pantoprazole Sodium # major Depression -Sertraline HCl (Zoloft -) # F/E/N: - Monitor electrolytes - Diabetic low Na+ diet # Prophylaxis: - OOB ambulating - SCDs bilaterally Visit type - Emergency Visit Emergency Visit: Yes ED Registration Date: 02/19/16 Care time: The patient presented to the Emergency Department on the above date and was hospitalized for further evaluation of their emergent condition. - New Patient This patient is new to me today: No - Critical Care Critical Care patient: No <Jose Servin - Last Filed: 02/21/16 11:34> Physical Exam: ATTENDING PHYSICIAN STATEMENT I saw and evaluated the patient. I reviewed the resident's note and discussed the case with the resident. I agree with the resident's findings and plan as documented. SUBJECTIVE: seen and evaluated at the bedside OBJECTIVE: rhonchi, diffuse wheezing ASSESSMENT AND PLAN: 60 year old female, with a significant past medical history of asthma,slupus, seizure (last 2009), syncope, COPD, sleep apnea on cpap, type 2 DM, hyperlipidemia, hypothyroidism admitted for acute on chronic asthma exacerbation Asthma -still has diffuse wheezing -cont solumedrol 60 Q6 -cont prn nebs -mucormyst x1 -cont symbicort
[2016-02-20 08:33] LABS: ALBUMIN 3.4 g/dl (3.4-5.0); BILIRUBIN,TOTAL 0.2 mg/dL (0.2-1.0); CALCIUM 8.9 mg/dL (8.5-10.1); CREATININE 1.2 mg/dL (0.55-1.02); MAGNESIUM 2.4 mg/dL (1.8-2.4); PHOSPHOROUS 3.9 mg/dL (2.5-4.9); THYROID STIMULATING HORMONE 0.54 uIU/ml (0.358-3.74); TOT PROT 7.3 g/dl (6.4-8.2)
[2016-02-20 08:50] LABS: TROPONIN I 0.02 ng/ml (0.00-0.05)
[2016-02-20] MEDS ORDERED: [UNRECOGNIZED DRUG - MIXTURE] PO SCH (10:00)
[2016-02-20] MEDS ORDERED: OMEGA PO SCH (10:00)
[2016-02-20] MEDS: BIOTIN 5000 MCG PO SCH (12:31)
[2016-02-20] MEDS: PATIENT'S OWN MEDICATION (NON-FORMULARY) (Meloxicam 15 MG) PO SCH (12:32)
[2016-02-20] MEDS: PATIENT'S OWN MEDICATION (NON-FORMULARY) (Linaclotide [Linzess] 145 MCG) PO SCH (12:32)
[2016-02-20] MEDS: TOPIRAMATE 100 MG PO SCH ×2 (12:33→21:51)
[2016-02-20] MEDS: MONTELUKAST NA 10 MG TABLET PO SCH (12:35)
[2016-02-20] MEDS: SERTRALINE HCL 50 MG TABLET (FP) PO SCH (12:35)
[2016-02-20] MEDS: carBAMazepine XR 400 MG TAB.ER.12H PO SCH ×2 (12:35→21:50)
[2016-02-20] MEDS: LOSARTAN POTASSIUM 50 MG TABLET (FP) PO SCH (12:35)
[2016-02-20] MEDS: FOLIC ACID 1 MG TABLET (FP) PO SCH (12:36)
[2016-02-20] MEDS: HYDROXYCHLOROQUINE SO4 200 MG TABLET (FP) PO SCH ×2 (12:36→21:45)
[2016-02-20] MEDS: BUDESONIDE/FORMETEROL FUMARATE 160/4.5 mcg INHALER IH SCH ×2 (12:38→21:49)
[2016-02-20] MEDS: PANTOPRAZOLE 40 MG TABLET (FP) PO SCH (12:38)
--- NOTE | 2016-02-20 13:48 | PN ---
Progress Note, Physician History of Present Illness: Pt alert and oriented. Slightly less dyspneic than yesterday. She was able to sleep using her CPAP machine from home. - Current Medication List Current Medications: Active Medications Albuterol Sulfate (Ventolin Hfa Inhaler -) 2 puff IH Q6H PRN PRN Reason: ASTHMA Albuterol Sulfate (Ventolin Hfa Inhaler -) 1 puff IH Q6H PRN PRN Reason: ASTHMA Albuterol/Ipratropium (Duoneb -) 1 amp NEB QIDR [facility] Last Admin: 02/20/16 11:41 Dose: Not Given Atorvastatin Calcium (Lipitor -) 10 mg PO HS [facility] Last Admin: 02/19/16 23:50 Dose: 10 mg Budesonide/Formoterol Fumarate (Symbicort 160/4.5mcg -) 1 puff IH BID [facility] Last Admin: 02/20/16 12:38 Dose: 1 puff Carbamazepine (Tegretol Xr -) 400 mg PO BID [facility] Last Admin: 02/20/16 12:35 Dose: 400 mg Cyclobenzaprine HCl (Flexeril -) 10 mg PO BID PRN PRN Reason: PAIN Folic Acid (Folic Acid -) 2 mg PO DAILY [facility] Last Admin: 02/20/16 12:36 Dose: 2 mg Heparin Sodium (Porcine) (Heparin -) 5,000 unit SQ TID [facility] Last Admin: 02/20/16 06:36 Dose: 5,000 unit Hydroxychloroquine Sulfate (Plaquenil -) 200 mg PO BID [facility] Last Admin: 02/20/16 12:36 Dose: 200 mg Insulin Aspart (Novolog Vial Sliding Scale -) 1 vial SQ ACHS [facility] PRN Reason: Protocol Last Admin: 02/20/16 12:31 Dose: Not Given Insulin Detemir (Levemir Vial) 18 units SQ [facility] Last Admin: 02/19/16 23:54 Dose: 18 units Levothyroxine Sodium (Synthroid -) 50 mcg PO DAILY@0700 [facility] Last Admin: 02/20/16 06:38 Dose: 50 mcg Losartan Potassium (Cozaar -) 50 mg PO DAILY [facility] Last Admin: 02/20/16 12:35 Dose: 50 mg Methotrexate (Mexate -) 12.5 mg PO Th@1000 [facility] Methylprednisolone Sodium Succinate (Solu-Medrol -) 60 mg IVPB Q8H-IV [facility] Last Admin: 02/20/16 12:41 Dose: 60 mg Montelukast Sodium (Singulair -) 10 mg PO DAILY [facility] Last Admin: 02/20/16 12:35 Dose: 10 mg Non-Formulary Medication (Aspirin/Calcium Carbonate/Mag [Aspirin Buffered 325 Mg Tab]) 325 mg PO BID [facility] Last Admin: 02/20/16 12:36 Dose: Not Given Non-Formulary Medication (Biotin [Hard Nails]) 5,000 mcg PO DAILY [facility] Last Admin: 02/20/16 12:31 Dose: 5,000 mcg Non-Formulary Medication (L.Acidop,Daren,Lac,Rha/B.Lac,Edmundo [Advanced Probiotic Capsule]) 625 mg PO DAILY [facility] Last Admin: 02/20/16 12:37 Dose: Not Given Non-Formulary Medication (Linaclotide [Linzess]) 145 mcg PO DAILY [facility] Last Admin: 02/20/16 12:32 Dose: 145 mcg Non-Formulary Medication (Meloxicam) 15 mg PO DAILY [facility] Last Admin: 02/20/16 12:32 Dose: 15 mg Non-Formulary Medication ([place]-3 Fatty Acids [[place]-3]) 2 tab PO DAILY [facility] Last Admin: 02/20/16 12:38 Dose: Not Given Patient's Own Medication (Non- Formulary) ( Topiramate 100 Mg) 100 mg PO BID [facility] Last Admin: 02/20/16 12:33 Dose: 100 mg Non-Formulary Medication (Umeclidinium [place] [Incruse Ellipta]) 62.5 mcg IH ASDIR [facility] Pantoprazole Sodium (Protonix -) 40 mg PO DAILY [facility] Last Admin: 02/20/16 12:38 Dose: 40 mg Sertraline HCl (Zoloft -) 100 mg PO DAILY [facility] Last Admin: 02/20/16 12:35 Dose: 100 mg - Objective Vital Signs: Vital Signs Temperature 98.8 F 02/20/16 09:00 Pulse Rate 78 02/20/16 09:00 Respiratory Rate 22 02/20/16 09:00 Blood Pressure 141/55 02/20/16 09:00 O2 Sat by Pulse Oximetry (%) 96 02/20/16 09:00 Constitutional: Yes: No Distress HENT: Yes: Normocephalic Neck: Yes: Supple, Trachea Midline Cardiovascular: Yes: Regular Rate and Rhythm. No: JVD Respiratory: Yes: Wheezes (bilateral) Gastrointestinal: Yes: Soft. No: Tenderness Extremities: No: Calf Tenderness Edema: LLE: 1+, RLE: 1+ Neurological: Yes: Alert, Oriented Labs: CBC, BMP 02/20/16 06:00 02/20/16 06:00 INR, PTT INR 1.06 (0.82-1.09) 02/20/16 06:00 - ....Imaging Ultrasound: Report Reviewed (echocardiogram) Problem List - Problems (1) Acute exacerbation of chronic obstructive pulmonary disease (COPD) Code(s): J44.1 - CHRONIC OBSTRUCTIVE PULMONARY DISEASE W (ACUTE) EXACERBATION (2) CHF (congestive heart failure) Code(s): I50.9 - HEART FAILURE, UNSPECIFIED (3) Sleep apnea, obstructive Code(s): G47.33 - OBSTRUCTIVE SLEEP APNEA (ADULT) (PEDIATRIC) (4) Morbid obesity Code(s): E66.01 - MORBID (SEVERE) OBESITY DUE TO EXCESS CALORIES Assessment/Plan 60 year old woman with acute exacerbation COPD. Patient has DANY on CPAP and morbid obesity. Slightly less dyspneic today. Echo shows normal left vent. systolic function and elevated RVSP 30-40mm Hg Plan: Pt to use her own CPAP machine at night and PRN Maintain SaO2> 90 IV steroids Inhaled bronchodilators Diuretic PRN
[2016-02-20] MEDS ORDERED: ASPIRIN 325 MG TABLET PO SCH (15:00)
[2016-02-20] MEDS ORDERED: ACETAMINOPHEN 325 MG TABLET (FP) PO PRN (16:17)
[2016-02-20] MEDS: OMEGA-3 ACID ETHYL ESTERS (FATTY-ACIDS) 1 GM CAPSULE (FP) PO SCH (16:44)
[2016-02-20 16:51] LABS: TROPONIN I 0.02 ng/ml (0.00-0.05)
[2016-02-20] MEDS ORDERED: ACETYLCYSTEINE 20% 200MG/ML 4 ML VIAL *FOR ORAL / INH USE ONLY NEB ONE ×2 (17:59→22:00)
[2016-02-20] MEDS ORDERED: PT OWN MED DRAWER 7, Y5N ONE (18:53)
[2016-02-20] MEDS: ALBUTEROL SO4 0.083% IH SOL 2.5 MG/3 ML VIAL.NEB. NEB PRN (21:21)
[2016-02-20] MEDS: INSULIN DETEMIR 100 UNITS/ML MDV SQ SCH (21:42)
[2016-02-20] MEDS: ATORVASTATIN CA 10 MG TABLET (FP) PO SCH (21:43)
[2016-02-21] MEDS: methylPREDNISolone NA SUCC 40 MG/1 ML VIAL IVPB SCH ×3 (02:45→18:00)
[2016-02-21] MEDS ORDERED: ACETYLCYSTEINE 20% 200MG/ML 4 ML VIAL *FOR ORAL / INH USE ONLY NEB ONE (06:00)
[2016-02-21] MEDS: HEPARIN NA (PORCINE) 5,000 UNITS/ML 1ML VIAL SQ SCH ×3 (06:58→21:34)
[2016-02-21] MEDS: INSULIN SLIDING SCALE (NOVOLOG) 1 VIAL SQ SCH ×4 (07:00→21:37)
[2016-02-21] MEDS: LEVOTHYROXINE NA 50 MCG TABLET (FP) PO SCH (07:00)
[2016-02-21] MEDS: LACTOBACILLUS ACIDOPHILUS 1 EACH TAB (FP) PO SCH (10:28)
[2016-02-21] MEDS: BIOTIN 5000 MCG PO SCH (10:29)
[2016-02-21] MEDS: MONTELUKAST NA 10 MG TABLET PO SCH (10:29)
[2016-02-21] MEDS: PANTOPRAZOLE 40 MG TABLET (FP) PO SCH (10:29)
[2016-02-21] MEDS: SERTRALINE HCL 50 MG TABLET (FP) PO SCH (10:30)
[2016-02-21] MEDS: FOLIC ACID 1 MG TABLET (FP) PO SCH (10:30)
[2016-02-21] MEDS: LOSARTAN POTASSIUM 50 MG TABLET (FP) PO SCH (10:32)
[2016-02-21] MEDS: CYCLOBENZAPRINE HCL 10 MG TABLET (FP) PO PRN (10:32)
[2016-02-21] MEDS: OMEGA-3 ACID ETHYL ESTERS (FATTY-ACIDS) 1 GM CAPSULE (FP) PO SCH (10:36)
[2016-02-21] MEDS: PATIENT'S OWN MEDICATION (NON-FORMULARY) (Meloxicam 15 MG) PO SCH (10:37)
[2016-02-21] MEDS: TOPIRAMATE 100 MG PO SCH ×2 (10:38→21:36)
[2016-02-21] MEDS: PATIENT'S OWN MEDICATION (NON-FORMULARY) (Linaclotide [Linzess] 145 MCG) PO SCH (10:39)
[2016-02-21] MEDS: BUDESONIDE/FORMETEROL FUMARATE 160/4.5 mcg INHALER IH SCH ×2 (10:40→21:38)
[2016-02-21] MEDS: HYDROXYCHLOROQUINE SO4 200 MG TABLET (FP) PO SCH ×2 (10:40→21:35)
[2016-02-21] MEDS: PATIENT'S OWN MEDICATION (NON-FORMULARY) (Umeclidinium Bromide [Incruse Ellipta] 62.5 MCG) IH SCH (10:41)
[2016-02-21] MEDS: carBAMazepine XR 400 MG TAB.ER.12H PO SCH ×2 (10:41→21:36)
--- NOTE | 2016-02-21 11:40 | PN ---
Progress Note, Physician - Current Medication List Current Medications: Active Medications Acetaminophen (Tylenol -) 650 mg PO Q6H PRN PRN Reason: FEVER OR PAIN Last Admin: 02/20/16 16:44 Dose: 650 mg Albuterol Sulfate (Ventolin 0.083% Nebulizer Soln -) 1 amp NEB Q4H PRN PRN Reason: SHORT OF BREATH/WHEEZING Last Admin: 02/20/16 21:21 Dose: 1 amp Atorvastatin Calcium (Lipitor -) 10 mg PO [facility] Last Admin: 02/20/16 21:43 Dose: 10 mg Budesonide/Formoterol Fumarate (Symbicort 160/4.5mcg -) 1 puff IH BID [facility] Last Admin: 02/21/16 10:40 Dose: 1 puff Carbamazepine (Tegretol Xr -) 400 mg PO BID [facility] Last Admin: 02/21/16 10:41 Dose: 400 mg Cyclobenzaprine HCl (Flexeril -) 10 mg PO BID PRN PRN Reason: PAIN Last Admin: 02/21/16 10:32 Dose: 10 mg Folic Acid (Folic Acid -) 2 mg PO DAILY [facility] Last Admin: 02/21/16 10:30 Dose: 2 mg Heparin Sodium (Porcine) (Heparin -) 5,000 unit SQ TID [facility] Last Admin: 02/21/16 06:58 Dose: 5,000 unit Hydroxychloroquine Sulfate (Plaquenil -) 200 mg PO BID [facility] Last Admin: 02/21/16 10:40 Dose: 200 mg Insulin Aspart (Novolog Vial Sliding Scale -) 1 vial SQ [facility] PRN Reason: Protocol Last Admin: 02/21/16 07:00 Dose: 2 units Insulin Detemir (Levemir Vial) 18 units SQ [facility] Last Admin: 02/20/16 21:42 Dose: 18 units Lactobacillus Acidophilus (Bacid -) 1 tab PO DAILY [facility] Last Admin: 02/21/16 10:28 Dose: 1 tab Levothyroxine Sodium (Synthroid -) 50 mcg PO DAILY@0700 [facility] Last Admin: 02/21/16 07:00 Dose: 50 mcg Losartan Potassium (Cozaar -) 50 mg PO DAILY [facility] Last Admin: 02/21/16 10:32 Dose: 50 mg Methotrexate (Mexate -) 12.5 mg PO Th@1000 [facility] Methylprednisolone Sodium Succinate (Solu-Medrol -) 60 mg IVPB Q8H-IV [facility] Last Admin: 02/21/16 10:56 Dose: 60 mg Montelukast Sodium (Singulair -) 10 mg PO DAILY [facility] Last Admin: 02/21/16 10:29 Dose: 10 mg Non-Formulary Medication (Biotin [Hard Nails]) 5,000 mcg PO DAILY [facility] Last Admin: 02/21/16 10:29 Dose: 5,000 mcg Non-Formulary Medication (Linaclotide [Linzess]) 145 mcg PO DAILY [facility] Last Admin: 02/21/16 10:39 Dose: 145 mcg Non-Formulary Medication (Meloxicam) 15 mg PO DAILY [facility] Last Admin: 02/21/16 10:37 Dose: 15 mg Patient's Own Medication (Non- Formulary) ( Topiramate 100 Mg) 100 mg PO BID [facility] Last Admin: 02/21/16 10:38 Dose: 100 mg Non-Formulary Medication (Umeclidinium [place] [Incruse Ellipta]) 62.5 mcg IH DAILY [facility] Last Admin: 02/21/16 10:41 Dose: 62.5 mcg Ceykr-3-Hpci Ethyl Esters (Lovaza -) 1 gm PO DAILY [facility] Last Admin: 02/21/16 10:36 Dose: 1 gm Pantoprazole Sodium (Protonix -) 40 mg PO DAILY [facility] Last Admin: 02/21/16 10:29 Dose: 40 mg Sertraline HCl (Zoloft -) 100 mg PO DAILY [facility] Last Admin: 02/21/16 10:30 Dose: 100 mg - Objective Vital Signs: Vital Signs Temperature 97.6 F 02/21/16 06:00 Pulse Rate 62 02/21/16 06:00 Respiratory Rate 20 02/21/16 06:00 Blood Pressure 160/85 02/21/16 06:00 O2 Sat by Pulse Oximetry (%) 100 02/20/16 21:00 Constitutional: Yes: Well Nourished, No Distress, Calm Eyes: Yes: WNL, Conjunctiva Clear HENT: Yes: WNL, Atraumatic, Normocephalic Neck: Yes: WNL, Supple, Trachea Midline Cardiovascular: Yes: WNL, Regular Rate and Rhythm Respiratory: Yes: Rhonchi Gastrointestinal: Yes: WNL, Normal Bowel Sounds Musculoskeletal: Yes: WNL Extremities: Yes: WNL Edema: No Integumentary: Yes: WNL Neurological: Yes: WNL, Alert, Oriented ...Motor Strength: WNL Psychiatric: Yes: WNL Labs: CBC, BMP 02/20/16 06:00 02/20/16 06:00 INR, PTT INR 1.06 (0.82-1.09) 02/20/16 06:00 Impression/Plan Impression/Plan: 60 year old female, with a significant past medical history of asthma,slupus, seizure (last 2009), syncope, COPD, sleep apnea on cpap, type 2 DM, hyperlipidemia, hypothyroidism admitted for acute on chronic asthma exacerbation Asthma -improved rhonchi, no wheezing -decreased solumedrol 60 Q8 -cont prn nebs -mucormyst x2 -cont symbicort Visit type - Emergency Visit Emergency Visit: Yes ED Registration Date: 02/19/16 Care time: The patient presented to the Emergency Department on the above date and was hospitalized for further evaluation of their emergent condition. - New Patient This patient is new to me today: No - Critical Care Critical Care patient: No
[2016-02-21] MEDS: ALBUTEROL SO4 0.083% IH SOL 2.5 MG/3 ML VIAL.NEB. NEB PRN (14:00)
[2016-02-21] MEDS: ATORVASTATIN CA 10 MG TABLET (FP) PO SCH (21:36)
[2016-02-21] MEDS: INSULIN DETEMIR 100 UNITS/ML MDV SQ SCH (21:36)
[2016-02-22] MEDS: methylPREDNISolone NA SUCC 40 MG/1 ML VIAL IVPB SCH ×2 (01:17→11:11)
[2016-02-22] MEDS: LEVOTHYROXINE NA 50 MCG TABLET (FP) PO SCH (06:14)
[2016-02-22] MEDS: HEPARIN NA (PORCINE) 5,000 UNITS/ML 1ML VIAL SQ SCH ×3 (06:15→22:34)
[2016-02-22] MEDS: INSULIN SLIDING SCALE (NOVOLOG) 1 VIAL SQ SCH ×4 (06:15→22:47)
[2016-02-22 09:08] LABS: BASOPHIL 0.8 % (0-2.0); EOSINOPHIL 0.1 % (0-4.5); MCH 29.2 pg (25.7-33.7); MCHC 32.3 g/dl (32.0-36.0); MEAN CELL VOLUME 90.4 fl (80-96); MEAN PLT VOLUME 7.9 fl (7.5-11.1); NEUTROPHILS 75.4 % (42.8-82.8); PLATELET COUNT 381 K/MM3 (134-434); RDW 16.4 % (11.6-15.6); WHITE BLOOD COUNT 8.9 K/mm3 (4.0-10.0)
[2016-02-22 09:42] LABS: CALCIUM 9.3 mg/dL (8.5-10.1); CREATININE 1.1 mg/dL (0.55-1.02)
[2016-02-22] MEDS ORDERED: PT OWN MED DRAWER 7, Y5N ONE ×3 (11:09→22:42)
[2016-02-22] MEDS: PANTOPRAZOLE 40 MG TABLET (FP) PO SCH (11:11)
[2016-02-22] MEDS: MONTELUKAST NA 10 MG TABLET PO SCH (11:11)
[2016-02-22] MEDS: LACTOBACILLUS ACIDOPHILUS 1 EACH TAB (FP) PO SCH (11:11)
[2016-02-22] MEDS: SERTRALINE HCL 50 MG TABLET (FP) PO SCH (11:12)
[2016-02-22] MEDS: LOSARTAN POTASSIUM 50 MG TABLET (FP) PO SCH (11:12)
[2016-02-22] MEDS: FOLIC ACID 1 MG TABLET (FP) PO SCH (11:12)
[2016-02-22] MEDS: PATIENT'S OWN MEDICATION (NON-FORMULARY) (Meloxicam 15 MG) PO SCH (11:17)
[2016-02-22] MEDS: BUDESONIDE/FORMETEROL FUMARATE 160/4.5 mcg INHALER IH SCH ×2 (11:17→22:35)
[2016-02-22] MEDS: OMEGA-3 ACID ETHYL ESTERS (FATTY-ACIDS) 1 GM CAPSULE (FP) PO SCH (11:19)
[2016-02-22] MEDS: carBAMazepine XR 400 MG TAB.ER.12H PO SCH ×2 (11:20→22:47)
[2016-02-22] MEDS: HYDROXYCHLOROQUINE SO4 200 MG TABLET (FP) PO SCH ×2 (11:21→22:35)
[2016-02-22] MEDS: BIOTIN 5000 MCG PO SCH (11:22)
[2016-02-22] MEDS: PATIENT'S OWN MEDICATION (NON-FORMULARY) (Linaclotide [Linzess] 145 MCG) PO SCH (11:23)
[2016-02-22] MEDS: TOPIRAMATE 100 MG PO SCH ×2 (11:24→22:36)
[2016-02-22] MEDS: PATIENT'S OWN MEDICATION (NON-FORMULARY) (Umeclidinium Bromide [Incruse Ellipta] 62.5 MCG) IH SCH (11:29)
--- NOTE | 2016-02-22 12:13 | PN ---
Progress Note, Physician - Current Medication List Current Medications: Active Medications Acetaminophen (Tylenol -) 650 mg PO Q6H PRN PRN Reason: FEVER OR PAIN Last Admin: 02/20/16 16:44 Dose: 650 mg Acetylcysteine (Mucomyst 20 Oral / Inh Use Only*) 600 mg NEB ONCE ONE Stop: 02/22/16 12:11 Albuterol Sulfate (Ventolin 0.083% Nebulizer Soln -) 1 amp NEB Q4H PRN PRN Reason: SHORT OF BREATH/WHEEZING Last Admin: 02/21/16 14:00 Dose: 1 amp Atorvastatin Calcium (Lipitor -) 10 mg PO HS [facility] Last Admin: 02/21/16 21:36 Dose: 10 mg Budesonide/Formoterol Fumarate (Symbicort 160/4.5mcg -) 1 puff IH BID [facility] Last Admin: 02/22/16 11:17 Dose: 1 puff Carbamazepine (Tegretol Xr -) 400 mg PO BID [facility] Last Admin: 02/22/16 11:20 Dose: 400 mg Cyclobenzaprine HCl (Flexeril -) 10 mg PO BID PRN PRN Reason: PAIN Last Admin: 02/21/16 10:32 Dose: 10 mg Folic Acid (Folic Acid -) 2 mg PO DAILY [facility] Last Admin: 02/22/16 11:12 Dose: 2 mg Heparin Sodium (Porcine) (Heparin -) 5,000 unit SQ TID [facility] Last Admin: 02/22/16 06:15 Dose: 5,000 unit Hydroxychloroquine Sulfate (Plaquenil -) 200 mg PO BID [facility] Last Admin: 02/22/16 11:21 Dose: 200 mg Insulin Aspart (Novolog Vial Sliding Scale -) 1 vial SQ [facility] PRN Reason: Protocol Last Admin: 02/22/16 06:15 Dose: 4 units Insulin Detemir (Levemir Vial) 18 units SQ HS [facility] Last Admin: 02/21/16 21:36 Dose: 18 units Lactobacillus Acidophilus (Bacid -) 1 tab PO DAILY [facility] Last Admin: 02/22/16 11:11 Dose: 1 tab Levothyroxine Sodium (Synthroid -) 50 mcg PO DAILY@0700 [facility] Last Admin: 02/22/16 06:14 Dose: 50 mcg Losartan Potassium (Cozaar -) 50 mg PO DAILY [facility] Last Admin: 02/22/16 11:12 Dose: 50 mg Methotrexate (Mexate -) 12.5 mg PO Th@1000 [facility] Methylprednisolone Sodium Succinate (Solu-Medrol -) 60 mg IVPB Q12H [facility] Montelukast Sodium (Singulair -) 10 mg PO DAILY [facility] Last Admin: 02/22/16 11:11 Dose: 10 mg Non-Formulary Medication (Biotin [Hard Nails]) 5,000 mcg PO DAILY [facility] Last Admin: 02/22/16 11:22 Dose: 5,000 mcg Non-Formulary Medication (Linaclotide [Linzess]) 145 mcg PO DAILY [facility] Last Admin: 02/22/16 11:23 Dose: 145 mcg Non-Formulary Medication (Meloxicam) 15 mg PO DAILY [facility] Last Admin: 02/22/16 11:17 Dose: 15 mg Patient's Own Medication (Non- Formulary) ( Topiramate 100 Mg) 100 mg PO BID [facility] Last Admin: 02/22/16 11:24 Dose: 100 mg Non-Formulary Medication (Umeclidinium [place] [Incruse Ellipta]) 62.5 mcg IH DAILY [facility] Last Admin: 02/22/16 11:29 Dose: 62.5 mcg [id number]-[id number] Ethyl Esters (Lovaza -) 1 gm PO DAILY [facility] Last Admin: 02/22/16 11:19 Dose: 1 gm Pantoprazole Sodium (Protonix -) 40 mg PO DAILY [facility] Last Admin: 02/22/16 11:11 Dose: 40 mg Sertraline HCl (Zoloft -) 100 mg PO DAILY [facility] Last Admin: 02/22/16 11:12 Dose: 100 mg - Objective Vital Signs: Vital Signs Temperature 99.3 F 02/22/16 12:08 Pulse Rate 62 02/22/16 11:04 Respiratory Rate 24 02/22/16 11:04 Blood Pressure 155/77 02/22/16 11:04 O2 Sat by Pulse Oximetry (%) 97 02/21/16 22:00 Constitutional: Yes: Well Nourished, No Distress, Calm Eyes: Yes: WNL, Conjunctiva Clear HENT: Yes: WNL, Atraumatic, Normocephalic Neck: Yes: WNL, Supple, Trachea Midline Cardiovascular: Yes: WNL, Regular Rate and Rhythm Respiratory: Yes: Rhonchi, Wheezes Gastrointestinal: Yes: WNL, Normal Bowel Sounds Musculoskeletal: Yes: WNL Extremities: Yes: WNL Edema: No Integumentary: Yes: WNL Neurological: Yes: WNL, Alert, Oriented ...Motor Strength: WNL Psychiatric: Yes: WNL Labs: CBC, BMP 02/22/16 08:45 02/22/16 08:45 INR, PTT INR 1.06 (0.82-1.09) 02/20/16 06:00 Impression/Plan Impression/Plan: 60 year old female, with a significant past medical history of asthma,slupus, seizure (last 2009), syncope, COPD, sleep apnea on cpap, type 2 DM, hyperlipidemia, hypothyroidism admitted for acute on chronic asthma exacerbation Asthma -improved rhonchi, no wheezing -decrease solumedrol 60 Q8 to Q12 -cont prn nebs -mucormyst x1 -cont symbicort DM -fingersticks elevated because of steroids -cont sliding scale insulin -cont Levemir Seizures -cont carbamazapine -cont topiramate DANY -Cpap at night DVT proph -subQ heparin Visit type - Emergency Visit Emergency Visit: Yes ED Registration Date: 02/19/16 Care time: The patient presented to the Emergency Department on the above date and was hospitalized for further evaluation of their emergent condition. - New Patient This patient is new to me today: No - Critical Care Critical Care patient: No
[2016-02-22] MEDS ORDERED: ACETYLCYSTEINE 20% 200MG/ML 4 ML VIAL *FOR ORAL / INH USE ONLY NEB ONE (13:30)
[2016-02-22] MEDS: ALBUTEROL SO4 0.083% IH SOL 2.5 MG/3 ML VIAL.NEB. NEB PRN (13:56)
--- NOTE | 2016-02-22 15:13 | PN ---
Progress Note, Physician History of Present Illness: Pt alert and oriented. Less dyspneic. No chest pain. Sleeps well on CPAP - Current Medication List Current Medications: Active Medications Acetaminophen (Tylenol -) 650 mg PO Q6H PRN PRN Reason: FEVER OR PAIN Last Admin: 02/20/16 16:44 Dose: 650 mg Albuterol Sulfate (Ventolin 0.083% Nebulizer Soln -) 1 amp NEB Q4H PRN PRN Reason: SHORT OF BREATH/WHEEZING Last Admin: 02/22/16 13:56 Dose: 1 amp Atorvastatin Calcium (Lipitor -) 10 mg PO HS [facility] Last Admin: 02/21/16 21:36 Dose: 10 mg Budesonide/Formoterol Fumarate (Symbicort 160/4.5mcg -) 1 puff IH BID [facility] Last Admin: 02/22/16 11:17 Dose: 1 puff Carbamazepine (Tegretol Xr -) 400 mg PO BID [facility] Last Admin: 02/22/16 11:20 Dose: 400 mg Cyclobenzaprine HCl (Flexeril -) 10 mg PO BID PRN PRN Reason: PAIN Last Admin: 02/21/16 10:32 Dose: 10 mg Folic Acid (Folic Acid -) 2 mg PO DAILY [facility] Last Admin: 02/22/16 11:12 Dose: 2 mg Heparin Sodium (Porcine) (Heparin -) 5,000 unit SQ TID [facility] Last Admin: 02/22/16 13:35 Dose: 5,000 unit Hydroxychloroquine Sulfate (Plaquenil -) 200 mg PO BID [facility] Last Admin: 02/22/16 11:21 Dose: 200 mg Insulin Aspart (Novolog Vial Sliding Scale -) 1 vial SQ [facility] PRN Reason: Protocol Last Admin: 02/22/16 12:16 Dose: 2 units Insulin Detemir (Levemir Vial) 18 units SQ [facility] Last Admin: 02/21/16 21:36 Dose: 18 units Lactobacillus Acidophilus (Bacid -) 1 tab PO DAILY [facility] Last Admin: 02/22/16 11:11 Dose: 1 tab Levothyroxine Sodium (Synthroid -) 50 mcg PO DAILY@0700 [facility] Last Admin: 02/22/16 06:14 Dose: 50 mcg Losartan Potassium (Cozaar -) 50 mg PO DAILY [facility] Last Admin: 02/22/16 11:12 Dose: 50 mg Methotrexate (Mexate -) 12.5 mg PO Th@1000 [facility] Methylprednisolone Sodium Succinate (Solu-Medrol -) 60 mg IVPB BID [facility] Montelukast Sodium (Singulair -) 10 mg PO DAILY [facility] Last Admin: 02/22/16 11:11 Dose: 10 mg Non-Formulary Medication (Biotin [Hard Nails]) 5,000 mcg PO DAILY [facility] Last Admin: 02/22/16 11:22 Dose: 5,000 mcg Non-Formulary Medication (Linaclotide [Linzess]) 145 mcg PO DAILY [facility] Last Admin: 02/22/16 11:23 Dose: 145 mcg Non-Formulary Medication (Meloxicam) 15 mg PO DAILY [facility] Last Admin: 02/22/16 11:17 Dose: 15 mg Patient's Own Medication (Non- Formulary) ( Topiramate 100 Mg) 100 mg PO BID [facility] Last Admin: 02/22/16 11:24 Dose: 100 mg Non-Formulary Medication (Umeclidinium [place] [Incruse Ellipta]) 62.5 mcg IH DAILY [facility] Last Admin: 02/22/16 11:29 Dose: 62.5 mcg Ygftr-3-Pkfu Ethyl Esters (Lovaza -) 1 gm PO DAILY [facility] Last Admin: 02/22/16 11:19 Dose: 1 gm Pantoprazole Sodium (Protonix -) 40 mg PO DAILY [facility] Last Admin: 02/22/16 11:11 Dose: 40 mg Sertraline HCl (Zoloft -) 100 mg PO DAILY [facility] Last Admin: 02/22/16 11:12 Dose: 100 mg - Objective Vital Signs: Vital Signs Temperature 99.3 F 02/22/16 12:08 Pulse Rate 62 02/22/16 11:04 Respiratory Rate 24 02/22/16 11:04 Blood Pressure 155/77 02/22/16 11:04 O2 Sat by Pulse Oximetry (%) 97 02/21/16 22:00 Constitutional: Yes: No Distress Eyes: No: Sclera Icterus HENT: Yes: Atraumatic, Normocephalic Neck: Yes: Supple, Trachea Midline Cardiovascular: Yes: Regular Rate and Rhythm. No: JVD Respiratory: Yes: CTA Bilaterally Gastrointestinal: Yes: Soft. No: Tenderness Extremities: No: Calf Tenderness Edema: No Neurological: Yes: Alert, Oriented Labs: CBC, BMP 02/22/16 08:45 02/22/16 08:45 INR, PTT INR 1.06 (0.82-1.09) 02/20/16 06:00 Problem List - Problems (1) Acute exacerbation of chronic obstructive pulmonary disease (COPD) Code(s): J44.1 - CHRONIC OBSTRUCTIVE PULMONARY DISEASE W (ACUTE) EXACERBATION (2) CHF (congestive heart failure) Code(s): I50.9 - HEART FAILURE, UNSPECIFIED (3) Sleep apnea, obstructive Code(s): G47.33 - OBSTRUCTIVE SLEEP APNEA (ADULT) (PEDIATRIC) (4) Morbid obesity Code(s): E66.01 - MORBID (SEVERE) OBESITY DUE TO EXCESS CALORIES Assessment/Plan 60 year old woman with acute exacerbation COPD. Patient has DANY on CPAP and morbid obesity. Less dyspneic today. Plan: Pt to use her own CPAP machine at night and PRN Maintain SaO2> 90 IV steroids Inhaled bronchodilators Diuretic PRN
[2016-02-22] MEDS ORDERED: INSULIN (NOVOLOG) ASPART 100 UNITS/ML 10ML VIAL ONE (19:19)
[2016-02-22] MEDS: ATORVASTATIN CA 10 MG TABLET (FP) PO SCH (22:35)
[2016-02-22] MEDS: methylPREDNISolone NA SUCC 125 MG/2 ML VIAL IVPB SCH (22:35)
[2016-02-22] MEDS: INSULIN DETEMIR 100 UNITS/ML MDV SQ SCH (22:43)
[2016-02-23] MEDS: carBAMazepine XR 400 MG TAB.ER.12H PO SCH ×3 (00:44→22:04)
[2016-02-23] MEDS: INSULIN SLIDING SCALE (NOVOLOG) 1 VIAL SQ SCH ×4 (06:47→21:58)
[2016-02-23] MEDS: HEPARIN NA (PORCINE) 5,000 UNITS/ML 1ML VIAL SQ SCH ×3 (06:47→21:55)
[2016-02-23] MEDS: LEVOTHYROXINE NA 50 MCG TABLET (FP) PO SCH (06:48)
[2016-02-23] MEDS ORDERED: PT OWN MED DRAWER 7, Y5N ONE ×2 (09:32→13:00)
[2016-02-23] MEDS: LACTOBACILLUS ACIDOPHILUS 1 EACH TAB (FP) PO SCH (09:36)
[2016-02-23] MEDS: LOSARTAN POTASSIUM 50 MG TABLET (FP) PO SCH (09:37)
[2016-02-23] MEDS: FOLIC ACID 1 MG TABLET (FP) PO SCH (09:38)
[2016-02-23] MEDS: PATIENT'S OWN MEDICATION (NON-FORMULARY) (Linaclotide [Linzess] 145 MCG) PO SCH (09:38)
[2016-02-23] MEDS: PATIENT'S OWN MEDICATION (NON-FORMULARY) (Meloxicam 15 MG) PO SCH (09:40)
[2016-02-23] MEDS: PANTOPRAZOLE 40 MG TABLET (FP) PO SCH (09:41)
[2016-02-23] MEDS: MONTELUKAST NA 10 MG TABLET PO SCH (09:41)
[2016-02-23] MEDS: methylPREDNISolone NA SUCC 125 MG/2 ML VIAL IVPB SCH ×2 (09:42→22:00)
[2016-02-23] MEDS: BUDESONIDE/FORMETEROL FUMARATE 160/4.5 mcg INHALER IH SCH ×2 (09:45→22:03)
[2016-02-23] MEDS: TOPIRAMATE 100 MG PO SCH ×2 (09:46→22:05)
[2016-02-23] MEDS: SERTRALINE HCL 50 MG TABLET (FP) PO SCH (09:48)
[2016-02-23] MEDS: PATIENT'S OWN MEDICATION (NON-FORMULARY) (Umeclidinium Bromide [Incruse Ellipta] 62.5 MCG) IH SCH (09:48)
[2016-02-23] MEDS: HYDROXYCHLOROQUINE SO4 200 MG TABLET (FP) PO SCH ×2 (10:01→22:00)
[2016-02-23] MEDS: BIOTIN 5000 MCG PO SCH (10:01)
[2016-02-23] MEDS: OMEGA-3 ACID ETHYL ESTERS (FATTY-ACIDS) 1 GM CAPSULE (FP) PO SCH (13:16)
[2016-02-23] MEDS ORDERED: ACETYLCYSTEINE 20% 200MG/ML 30 ML VIAL *FOR ORAL / INH USE ONLY NEB ONE (13:46)
--- NOTE | 2016-02-23 13:48 | PN ---
Physical Exam: SUBJECTIVE: Patient seen and examined at be bed side. patient reports breathing changed voice,leg swelling improving. Patient reports same back and chest pain. Used CPAP all last night. denies fevers, chills, n/V/D. OBJECTIVE: Vital Signs Period Temp Pulse Resp BP Sys/Oconnell Pulse Ox Last 24 Hr 97.8 F-98.3 F 61-78 18-24 119-155/61-94 100 GENERAL: Awake, alert, and fully oriented, in no cute distress. morbid obese, HEAD: Normal with no signs of trauma. EYES: Pupils equal, round and reactive to light, extraocular movements intact, sclera anicteric, conjunctiva clear. No lid lag. EARS, NOSE, THROAT: Ears normal, nares patent, oropharynx clear without exudates. Moist mucous membranes. NECK: Normal range of motion, supple without lymphadenopathy, JVD, or masses. LUNGS: Breath sounds equal, clear to auscultation bilaterally. mild diffused wheezes ,mild rhonchi , and no crackles. No accessory muscle use. HEART: distent heart sounds, not appreciated ABDOMEN: Obese, Soft, nontender, not distended, normoactive bowel sounds, no guarding, no rebound, no masses. No hepatomegaly or splenomegaly. MUSCULOSKELETAL: Normal range of motion at all joints. No bony deformities or tenderness. No CVA tenderness. LOWER EXTREMITIES: 2+ pulses, warm, well-perfused. No calf tenderness. BLLE +1 peripheral edema. erythema resolved NEUROLOGICAL: Cranial nerves II-XII intact. PSYCHIATRIC: Cooperative. Good eye contact. Appropriate mood and affect. SKIN: Warm, dry, normal turgor, no rashes or lesions noted. Laboratory Results - last 24 hr 02/22/16 02/22/16 02/23/16 17:34 22:46 06:46 POC Glucometer 230 183 209 02/23/16 12:24 POC Glucometer 200 Active Medications Generic Name Dose Route Start Last Admin Trade Name Freq PRN Reason Stop Dose Admin Acetaminophen 650 mg 02/20/16 16:17 02/20/16 16:44 Tylenol - PO 650 mg Q6H PRN Administration FEVER OR PAIN Albuterol Sulfate 1 amp 02/20/16 17:59 02/22/16 13:56 Ventolin 0.083% Nebulizer Soln - NEB 1 amp Q4H PRN Administration SHORT OF BREATH/WHEEZING Atorvastatin Calcium 10 mg 02/19/16 22:00 02/22/16 22:35 Lipitor - PO 10 mg HS [facility] Administration Budesonide/Formoterol Fumarate 1 puff 02/19/16 22:00 02/23/16 09:45 Symbicort 160/4.5mcg - IH 1 puff BID [facility] Administration Carbamazepine 400 mg 02/19/16 22:00 02/23/16 09:47 Tegretol Xr - PO 400 mg BID [facility] Administration Cyclobenzaprine HCl 10 mg 02/19/16 17:21 02/21/16 10:32 Flexeril - PO 10 mg BID PRN Administration PAIN Folic Acid 2 mg 02/20/16 10:00 02/23/16 09:38 Folic Acid - PO 2 mg DAILY [facility] Administration Heparin Sodium (Porcine) 5,000 unit 02/19/16 22:00 02/23/16 13:16 Heparin - SQ 5,000 unit TID [facility] Administration Hydroxychloroquine Sulfate 200 mg 02/19/16 22:00 02/23/16 10:01 Plaquenil - PO 200 mg BID [facility] Administration Insulin Aspart 1 vial 02/19/16 22:00 02/23/16 12:25 Novolog Vial Sliding Scale - SQ 2 units ACHS [facility] Administration Protocol Insulin Detemir 18 units 02/19/16 23:30 02/22/16 22:43 Levemir Vial SQ 18 units HS [facility] Administration Lactobacillus Acidophilus 1 tab 02/20/16 14:50 02/23/16 09:36 Bacid - PO 1 tab DAILY [facility] Administration Levothyroxine Sodium 50 mcg 02/20/16 07:00 02/23/16 06:48 Synthroid - PO 50 mcg DAILY@0700 [facility] Administration Losartan Potassium 50 mg 02/20/16 10:00 02/23/16 09:37 Cozaar - PO 50 mg DAILY [facility] Administration Methotrexate 12.5 mg 02/26/16 10:00 Mexate - PO Th@1000 [facility] Methylprednisolone Sodium Succinate 60 mg 02/22/16 22:00 02/23/16 09:42 Solu-Medrol - IVPB 60 mg BID [facility] Administration Montelukast Sodium 10 mg 02/20/16 10:00 02/23/16 09:41 Singulair - PO 10 mg DAILY [facility] Administration Non-Formulary Medication 5,000 mcg 02/20/16 10:00 02/23/16 10:01 Biotin [Hard Nails] PO 5,000 mcg DAILY [facility] Administration Non-Formulary Medication 145 mcg 02/20/16 10:00 02/23/16 09:38 Linaclotide [Linzess] PO 145 mcg DAILY [facility] Administration Non-Formulary Medication 15 mg 02/20/16 10:00 02/23/16 09:40 Meloxicam PO 15 mg DAILY [facility] Administration Patient's Own 100 mg 02/19/16 22:00 02/23/16 09:46 Medication (Non- PO 100 mg Formulary) ( BID [facility] Administration Topiramate 100 Mg) Non-Formulary Medication 62.5 mcg 02/21/16 10:00 02/23/16 09:48 Umeclidinium [place] [Incruse Ellipta] IH 62.5 mcg DAILY [facility] Administration [id number] Ethyl Esters 1 gm 02/20/16 15:00 02/23/16 13:16 Lovaza - PO 1 gm DAILY [facility] Administration Pantoprazole Sodium 40 mg 02/20/16 10:00 02/23/16 09:41 Protonix - PO 40 mg DAILY [facility] Administration Sertraline HCl 100 mg 02/20/16 10:00 02/23/16 09:48 Zoloft - PO 100 mg DAILY [facility] Administration ASSESSMENT/PLAN: This is a 60 year old female with PMHx of asthma, morbid obesity, diabetes, lupus, seizures, who presented to the ED s/p progressive SOB found to be in an asthma exacerbation, also complained of chest pain. # Acute respiratory distress, likely multifactorial, SOB refractory on asthma regiment with PO steroids, possibly secondary to SLE pulmonary manifestation chest pain 93% with out a pleural effusion, will need to r/o cardiac, infection , drug toxicity, malignancy, CTA (no PE ,acute changes, chronic, no Aortic aneurism, no fluid collection) Asthma: rhonchi and wheezing improving - continue IV steroids yaima: 60mg BID day 2 - Continue Singulair - Continue Symbicort - Continue Duonebs - (Umeclidinium [place] [Incruse Ellipta]) 62.5 mcg - BNP- 299 -Pulmonary consult -mucormyst x1 # chest Pain - Monitor on telemetry - Serial troponin negative x3 # Systemic lupus erythematosus: - Continue Plaquenil - Continue Methotrexate -on steroids # lower leg erythema and swelling: resolved # Type 2 diabetes mellitus - levimir - ISS ACHS - BGM ACHS #elevated Blood sugars:2/2 steriods # Hypertension - Continue Cozaar # Hyperlipidemia - Continue Lipitor # Hypothyroidism - Continue Synthroid - Check TSH wNL # CKD stage 3: increased creatinine from yesterday maybe prerenal azotemia secondary to lasix, - Cr stable, continue to monitor # Seizure disorder - Continue Topamax, Tegretol # Chronic back pain -Cyclobenzaprine HCl (Flexeril) #GERD -Pantoprazole Sodium # major Depression -Sertraline HCl (Zoloft -) # F/E/N: - Monitor electrolytes - Diabetic low Na+ diet # Prophylaxis: - OOB ambulating DVT proph -subQ heparin Visit type - Emergency Visit Emergency Visit: Yes ED Registration Date: 02/19/16 Care time: The patient presented to the Emergency Department on the above date and was hospitalized for further evaluation of their emergent condition. - New Patient This patient is new to me today: No - Critical Care Critical Care patient: No
[2016-02-23] MEDS ORDERED: ACETYLCYSTEINE 20% 200MG/ML 4 ML VIAL *FOR ORAL / INH USE ONLY NEB ONE (14:00)
[2016-02-23] MEDS: ALBUTEROL SO4 0.083% IH SOL 2.5 MG/3 ML VIAL.NEB. NEB PRN (18:43)
--- NOTE | 2016-02-23 19:05 | PN ---
Progress Note, Physician History of Present Illness: Pt alert and oriented. Less dyspneic. No chest pain. Sleeps well on CPAP - Current Medication List Current Medications: Active Medications Acetaminophen (Tylenol -) 650 mg PO Q6H PRN PRN Reason: FEVER OR PAIN Last Admin: 02/20/16 16:44 Dose: 650 mg Albuterol Sulfate (Ventolin 0.083% Nebulizer Soln -) 1 amp NEB Q4H PRN PRN Reason: SHORT OF BREATH/WHEEZING Last Admin: 02/23/16 18:43 Dose: 1 amp Atorvastatin Calcium (Lipitor -) 10 mg PO HS [facility] Last Admin: 02/22/16 22:35 Dose: 10 mg Budesonide/Formoterol Fumarate (Symbicort 160/4.5mcg -) 1 puff IH BID [facility] Last Admin: 02/23/16 09:45 Dose: 1 puff Carbamazepine (Tegretol Xr -) 400 mg PO BID [facility] Last Admin: 02/23/16 09:47 Dose: 400 mg Cyclobenzaprine HCl (Flexeril -) 10 mg PO BID PRN PRN Reason: PAIN Last Admin: 02/21/16 10:32 Dose: 10 mg Folic Acid (Folic Acid -) 2 mg PO DAILY [facility] Last Admin: 02/23/16 09:38 Dose: 2 mg Heparin Sodium (Porcine) (Heparin -) 5,000 unit SQ TID [facility] Last Admin: 02/23/16 13:16 Dose: 5,000 unit Hydroxychloroquine Sulfate (Plaquenil -) 200 mg PO BID [facility] Last Admin: 02/23/16 10:01 Dose: 200 mg Insulin Aspart (Novolog Vial Sliding Scale -) 1 vial SQ [facility] PRN Reason: Protocol Last Admin: 02/23/16 17:36 Dose: 4 units Insulin Detemir (Levemir Vial) 18 units SQ HS [facility] Last Admin: 02/22/16 22:43 Dose: 18 units Lactobacillus Acidophilus (Bacid -) 1 tab PO DAILY [facility] Last Admin: 02/23/16 09:36 Dose: 1 tab Levothyroxine Sodium (Synthroid -) 50 mcg PO DAILY@0700 [facility] Last Admin: 02/23/16 06:48 Dose: 50 mcg Losartan Potassium (Cozaar -) 50 mg PO DAILY [facility] Last Admin: 02/23/16 09:37 Dose: 50 mg Methotrexate (Mexate -) 12.5 mg PO Th@1000 [facility] Methylprednisolone Sodium Succinate (Solu-Medrol -) 60 mg IVPB BID [facility] Last Admin: 02/23/16 09:42 Dose: 60 mg Montelukast Sodium (Singulair -) 10 mg PO DAILY [facility] Last Admin: 02/23/16 09:41 Dose: 10 mg Non-Formulary Medication (Biotin [Hard Nails]) 5,000 mcg PO DAILY [facility] Last Admin: 02/23/16 10:01 Dose: 5,000 mcg Non-Formulary Medication (Linaclotide [Linzess]) 145 mcg PO DAILY [facility] Last Admin: 02/23/16 09:38 Dose: 145 mcg Non-Formulary Medication (Meloxicam) 15 mg PO DAILY [facility] Last Admin: 02/23/16 09:40 Dose: 15 mg Patient's Own Medication (Non- Formulary) ( Topiramate 100 Mg) 100 mg PO BID [facility] Last Admin: 02/23/16 09:46 Dose: 100 mg Non-Formulary Medication (Umeclidinium [place] [Incruse Ellipta]) 62.5 mcg IH DAILY [facility] Last Admin: 02/23/16 09:48 Dose: 62.5 mcg [id number] Ethyl Esters (Lovaza -) 1 gm PO DAILY [facility] Last Admin: 02/23/16 13:16 Dose: 1 gm Pantoprazole Sodium (Protonix -) 40 mg PO DAILY [facility] Last Admin: 02/23/16 09:41 Dose: 40 mg Sertraline HCl (Zoloft -) 100 mg PO DAILY [facility] Last Admin: 02/23/16 09:48 Dose: 100 mg - Objective Vital Signs: Vital Signs Temperature 97.8 F 02/23/16 14:56 Pulse Rate 76 02/23/16 14:56 Respiratory Rate 20 02/23/16 14:56 Blood Pressure 147/76 02/23/16 14:56 O2 Sat by Pulse Oximetry (%) 97 02/23/16 09:00 Constitutional: Yes: No Distress Eyes: No: Sclera Icterus HENT: Yes: Atraumatic, Normocephalic Neck: Yes: Supple, Trachea Midline Cardiovascular: Yes: Regular Rate and Rhythm. No: JVD Respiratory: Yes: CTA Bilaterally Gastrointestinal: Yes: Soft. No: Tenderness Extremities: No: Calf Tenderness Edema: No Neurological: Yes: Alert, Oriented Labs: CBC, BMP 02/22/16 08:45 02/22/16 08:45 INR, PTT INR 1.06 (0.82-1.09) 02/20/16 06:00 Problem List - Problems (1) Acute exacerbation of chronic obstructive pulmonary disease (COPD) Code(s): J44.1 - CHRONIC OBSTRUCTIVE PULMONARY DISEASE W (ACUTE) EXACERBATION (2) CHF (congestive heart failure) Code(s): I50.9 - HEART FAILURE, UNSPECIFIED (3) Sleep apnea, obstructive Code(s): G47.33 - OBSTRUCTIVE SLEEP APNEA (ADULT) (PEDIATRIC) (4) Morbid obesity Code(s): E66.01 - MORBID (SEVERE) OBESITY DUE TO EXCESS CALORIES Assessment/Plan 60 year old woman with acute exacerbation COPD. Patient has DANY on CPAP and morbid obesity. Less dyspneic today. Plan: CPAp at night and PRN Maintain SaO2> 90 IV steroids Inhaled bronchodilators Diuretic PRN
[2016-02-23] MEDS ORDERED: INSULIN (NOVOLOG) ASPART 100 UNITS/ML 10ML VIAL ONE (21:12)
[2016-02-23] MEDS: INSULIN DETEMIR 100 UNITS/ML MDV SQ SCH (21:57)
[2016-02-23] MEDS: ATORVASTATIN CA 10 MG TABLET (FP) PO SCH (21:58)
[2016-02-24] MEDS: HEPARIN NA (PORCINE) 5,000 UNITS/ML 1ML VIAL SQ SCH ×3 (06:43→22:01)
[2016-02-24] MEDS: INSULIN SLIDING SCALE (NOVOLOG) 1 VIAL SQ SCH ×4 (06:44→22:07)
[2016-02-24] MEDS: LEVOTHYROXINE NA 50 MCG TABLET (FP) PO SCH (06:44)
[2016-02-24] MEDS ORDERED: INSULIN (NOVOLOG) ASPART 100 UNITS/ML 10ML VIAL ONE ×2 (06:56→21:12)
[2016-02-24] MEDS ORDERED: PT OWN MED DRAWER 7, Y5N ONE ×2 (06:58→09:37)
[2016-02-24 07:59] LABS: CALCIUM 8.7 mg/dL (8.5-10.1); CREATININE 1.3 mg/dL (0.55-1.02)
--- NOTE | 2016-02-24 08:08 | PN ---
Physical Exam: SUBJECTIVE: Patient seen and examined at bed side. Less dyspneic, and feeling much better. used cpap all night. denies cp. palpitations, N/V/D. Inc wheezing on physical exam at 6am prior to treatment OBJECTIVE: Vital Signs Period Temp Pulse Resp BP Sys/Oconnell Pulse Ox Last 24 Hr 97.7 F-98.6 F 70-87 16-22 136-161/59-88 97-97 GENERAL: Awake, alert, and fully oriented, in no cute distress. morbid obese, HEAD: Normal with no signs of trauma. EYES: Pupils equal, round and reactive to light, extraocular movements intact, sclera anicteric, conjunctiva clear. No lid lag. EARS, NOSE, THROAT: Ears normal, nares patent, oropharynx clear without exudates. Moist mucous membranes. NECK: Normal range of motion, supple without lymphadenopathy, JVD, or masses. LUNGS: Breath sounds equal, clear to auscultation bilaterally. Diffused wheezes anteriorly and posteriorly lung griggs, no rhonchi , and no crackles. No accessory muscle use. HEART: distent heart sounds, not appreciated ABDOMEN: Obese, Soft, nontender, not distended, normoactive bowel sounds, no guarding, no rebound, no masses. No hepatomegaly or splenomegaly. MUSCULOSKELETAL: Normal range of motion at all joints. No bony deformities or tenderness. No CVA tenderness. LOWER EXTREMITIES: 2+ pulses, warm, well-perfused. No calf tenderness. BLLE +1 peripheral edema. erythema resolved NEUROLOGICAL: Cranial nerves II-XII intact. speech normal PSYCHIATRIC: Cooperative. Good eye contact. Appropriate mood and affect. SKIN: Warm, dry, normal turgor, no rashes or lesions noted. Laboratory Results - last 24 hr 02/23/16 02/23/16 02/23/16 12:24 16:31 21:54 POC Glucometer 200 245 292 02/24/16 06:42 POC Glucometer 309 Active Medications Generic Name Dose Route Start Last Admin Trade Name Freq PRN Reason Stop Dose Admin Acetaminophen 650 mg 02/20/16 16:17 02/20/16 16:44 Tylenol - PO 650 mg Q6H PRN Administration FEVER OR PAIN Albuterol Sulfate 1 amp 02/20/16 17:59 02/23/16 18:43 Ventolin 0.083% Nebulizer Soln - NEB 1 amp Q4H PRN Administration SHORT OF BREATH/WHEEZING Atorvastatin Calcium 10 mg 02/19/16 22:00 02/23/16 21:58 Lipitor - PO 10 mg HS [facility] Administration Budesonide/Formoterol Fumarate 1 puff 02/19/16 22:00 02/23/16 22:03 Symbicort 160/4.5mcg - IH 1 puff BID [facility] Administration Carbamazepine 400 mg 02/19/16 22:00 02/23/16 22:04 Tegretol Xr - PO 400 mg BID [facility] Administration Cyclobenzaprine HCl 10 mg 02/19/16 17:21 02/21/16 10:32 Flexeril - PO 10 mg BID PRN Administration PAIN Folic Acid 2 mg 02/20/16 10:00 02/23/16 09:38 Folic Acid - PO 2 mg DAILY [facility] Administration Heparin Sodium (Porcine) 5,000 unit 02/19/16 22:00 02/24/16 06:43 Heparin - SQ 5,000 unit TID [facility] Administration Hydroxychloroquine Sulfate 200 mg 02/19/16 22:00 02/23/16 22:00 Plaquenil - PO 200 mg BID [facility] Administration Insulin Aspart 1 vial 02/19/16 22:00 02/24/16 06:44 Novolog Vial Sliding Scale - SQ 8 units ACHS [facility] Administration Protocol Insulin Detemir 18 units 02/19/16 23:30 02/23/16 21:57 Levemir Vial SQ 18 units HS [facility] Administration Lactobacillus Acidophilus 1 tab 02/20/16 14:50 02/23/16 09:36 Bacid - PO 1 tab DAILY [facility] Administration Levothyroxine Sodium 50 mcg 02/20/16 07:00 02/24/16 06:44 Synthroid - PO 50 mcg DAILY@0700 [facility] Administration Losartan Potassium 50 mg 02/20/16 10:00 02/23/16 09:37 Cozaar - PO 50 mg DAILY [facility] Administration Methotrexate 12.5 mg 02/26/16 10:00 Mexate - PO Th@1000 [facility] Methylprednisolone Sodium Succinate 60 mg 02/22/16 22:00 02/23/16 22:00 Solu-Medrol - IVPB 60 mg BID [facility] Administration Montelukast Sodium 10 mg 02/20/16 10:00 02/23/16 09:41 Singulair - PO 10 mg DAILY [facility] Administration Non-Formulary Medication 5,000 mcg 02/20/16 10:00 02/23/16 10:01 Biotin [Hard Nails] PO 5,000 mcg DAILY [facility] Administration Non-Formulary Medication 145 mcg 02/20/16 10:00 02/23/16 09:38 Linaclotide [Linzess] PO 145 mcg DAILY [facility] Administration Non-Formulary Medication 15 mg 02/20/16 10:00 02/23/16 09:40 Meloxicam PO 15 mg DAILY [facility] Administration Patient's Own 100 mg 02/19/16 22:00 02/23/16 22:05 Medication (Non- PO 100 mg Formulary) ( BID [facility] Administration Topiramate 100 Mg) Non-Formulary Medication 62.5 mcg 02/21/16 10:00 02/23/16 09:48 Umeclidinium [place] [Incruse Ellipta] IH 62.5 mcg DAILY [facility] Administration Dpiqp-[id number] Ethyl Esters 1 gm 02/20/16 15:00 02/23/16 13:16 Lovaza - PO 1 gm DAILY [facility] Administration Pantoprazole Sodium 40 mg 02/20/16 10:00 02/23/16 09:41 Protonix - PO 40 mg DAILY [facility] Administration Sertraline HCl 100 mg 02/20/16 10:00 02/23/16 09:48 Zoloft - PO 100 mg DAILY [facility] Administration ASSESSMENT/PLAN: This is a 60 year old female with PMHx of asthma, morbid obesity, diabetes, lupus, seizures, who presented to the ED s/p progressive SOB found to be in an asthma exacerbation, also complained of chest pain. # Acute respiratory distress, likely multifactorial, SOB refractory on asthma regiment with PO steroids,saturating 99% on 2L. Asthma: rhonchi and wheezing improving - continue IV steroids yaima: 60mg BID day 3 - Continue Singulair - Continue Symbicort - Continue Duonebs - (Umeclidinium [place] [Incruse Ellipta]) 62.5 mcg - BNP- 299 -Pulmonary on board - start Levaquin for productive sputum.(PCN allergy) # chest Pain; likely pleuritic. no recurrent episodes, - Monitor on telemetry - Serial troponin negative x3 # Systemic lupus erythematosus: - Continue Plaquenil - Continue Methotrexate -on steroids # lower leg erythema and swelling: resolved # Type 2 diabetes mellitus - levimir - ISS ACHS - BGM ACHS #elevated Blood sugars:2/2 steriods # Hypertension - Continue Cozaar # Hyperlipidemia - Continue Lipitor # Hypothyroidism - Continue Synthroid - Check TSH wNL # CKD stage 3: prerenal azotemia secondary to initial lasix, - Cr stable, continue to monitor # Seizure disorder - Continue Topamax, Tegretol # Chronic back pain -Cyclobenzaprine HCl (Flexeril) #GERD -Pantoprazole Sodium # major Depression -Sertraline HCl (Zoloft -) # F/E/N: - Monitor electrolytes - Diabetic low Na+ diet # Prophylaxis: - OOB ambulating DVT proph -subQ heparin Visit type - Emergency Visit Emergency Visit: Yes ED Registration Date: 02/19/16 Care time: The patient presented to the Emergency Department on the above date and was hospitalized for further evaluation of their emergent condition. - New Patient This patient is new to me today: No - Critical Care Critical Care patient: No - Discharge Referral Referred to [facility] No
[2016-02-24] MEDS: MONTELUKAST NA 10 MG TABLET PO SCH (09:43)
[2016-02-24] MEDS: LACTOBACILLUS ACIDOPHILUS 1 EACH TAB (FP) PO SCH (09:43)
[2016-02-24] MEDS: FOLIC ACID 1 MG TABLET (FP) PO SCH (09:43)
[2016-02-24] MEDS: LOSARTAN POTASSIUM 50 MG TABLET (FP) PO SCH (09:44)
[2016-02-24] MEDS: PANTOPRAZOLE 40 MG TABLET (FP) PO SCH (09:44)
[2016-02-24] MEDS: SERTRALINE HCL 50 MG TABLET (FP) PO SCH (09:44)
[2016-02-24] MEDS: OMEGA-3 ACID ETHYL ESTERS (FATTY-ACIDS) 1 GM CAPSULE (FP) PO SCH (09:46)
[2016-02-24] MEDS: HYDROXYCHLOROQUINE SO4 200 MG TABLET (FP) PO SCH ×2 (09:47→22:01)
[2016-02-24] MEDS: PATIENT'S OWN MEDICATION (NON-FORMULARY) (Meloxicam 15 MG) PO SCH (09:47)
[2016-02-24] MEDS: BUDESONIDE/FORMETEROL FUMARATE 160/4.5 mcg INHALER IH SCH ×2 (09:48→22:02)
[2016-02-24] MEDS: methylPREDNISolone NA SUCC 125 MG/2 ML VIAL IVPB SCH ×2 (09:48→22:01)
[2016-02-24] MEDS: TOPIRAMATE 100 MG PO SCH ×2 (09:49→22:02)
[2016-02-24] MEDS: carBAMazepine XR 400 MG TAB.ER.12H PO SCH ×2 (09:49→22:02)
[2016-02-24] MEDS: PATIENT'S OWN MEDICATION (NON-FORMULARY) (Umeclidinium Bromide [Incruse Ellipta] 62.5 MCG) IH SCH (09:50)
[2016-02-24] MEDS: PATIENT'S OWN MEDICATION (NON-FORMULARY) (Linaclotide [Linzess] 145 MCG) PO SCH (09:50)
[2016-02-24] MEDS ORDERED: CEFTRIAXONE 2 GM in DEXTROSE 5%-WATER - 100 ML IVPB SCH (11:15)
[2016-02-24] MEDS: BIOTIN 5000 MCG PO SCH (11:20)
[2016-02-24] MEDS ORDERED: LEVOFLOXACIN 250 MG TABLET (FP) PO ONE (12:15)
--- NOTE | 2016-02-24 13:01 | PN ---
Teaching Attending Note Name of Resident: Raleigh Bell ATTENDING PHYSICIAN STATEMENT I saw and evaluated the patient. I reviewed the resident's note and discussed the case with the resident. I agree with the resident's findings and plan as documented. SUBJECTIVE:c/o dypsnea worse on exertion and when laying flat. also has productive cough of yellow sputum. SOB relieved with supplemental oxygen. denies CP, fever, chills, N/V/C/D. This is her first hospitalized visit for Asthma exacerbation OBJECTIVE: Last Vital Signs Temp Pulse Resp BP Pulse Ox 98.6 F 72 22 137/57 97 02/24/16 10:00 02/24/16 10:00 02/24/16 10:00 02/24/16 10:00 02/23/16 21:00 General NAD CV S1 S2 RRR no murmur/rub/gallop Lungs CTA B/L no wheezing/rales/rhonchi ASSESSMENT AND PLAN: 60yo F with PMH SLE, Ashtma, DANY, DM , dyslipidemia, hypothyroid presented to the ER and was admitted for further evaluation of their emergent condition 1. Acute COPD exacerbation- emphasematous changes on CT scan. will start Levaquin for productive sputum. (PCN allergy)keep steroids at current dosing. Echo done showing no signs of heart failure. does not appear to be volume overloaded. saturating 99% on 2L. pulmonary on board. cont inhalers and nebs prn. 2. CP-likely pleuritic. no recurrent episodes 3. NAN- was given lasix on presentation. 4. DM- uncontrolled. likely due to steroids. lantus increased from home medications. will monitor for now. iss, bgm 5. Hypothyroid- cont Lt4 6. DVT ppx- hep sq
--- NOTE | 2016-02-24 14:39 | PN ---
Progress Note, Physician History of Present Illness: Pt alert and oriented. Dyspnea decreased. Pt ambulates short distances.. No chest pain. Sleeps well on CPAP - Current Medication List Current Medications: Active Medications Acetaminophen (Tylenol -) 650 mg PO Q6H PRN PRN Reason: FEVER OR PAIN Last Admin: 02/20/16 16:44 Dose: 650 mg Albuterol Sulfate (Ventolin 0.083% Nebulizer Soln -) 1 amp NEB Q4H PRN PRN Reason: SHORT OF BREATH/WHEEZING Last Admin: 02/23/16 18:43 Dose: 1 amp Atorvastatin Calcium (Lipitor -) 10 mg PO HS [facility] Last Admin: 02/23/16 21:58 Dose: 10 mg Budesonide/Formoterol Fumarate (Symbicort 160/4.5mcg -) 1 puff IH BID [facility] Last Admin: 02/24/16 09:48 Dose: 1 puff Carbamazepine (Tegretol Xr -) 400 mg PO BID [facility] Last Admin: 02/24/16 09:49 Dose: 400 mg Cyclobenzaprine HCl (Flexeril -) 10 mg PO BID PRN PRN Reason: PAIN Last Admin: 02/21/16 10:32 Dose: 10 mg Folic Acid (Folic Acid -) 2 mg PO DAILY [facility] Last Admin: 02/24/16 09:43 Dose: 2 mg Heparin Sodium (Porcine) (Heparin -) 5,000 unit SQ TID [facility] Last Admin: 02/24/16 06:43 Dose: 5,000 unit Hydroxychloroquine Sulfate (Plaquenil -) 200 mg PO BID [facility] Last Admin: 02/24/16 09:47 Dose: 200 mg Insulin Aspart (Novolog Vial Sliding Scale -) 1 vial SQ ACHS [facility] PRN Reason: Protocol Last Admin: 02/24/16 12:21 Dose: 4 units Insulin Detemir (Levemir Vial) 18 units SQ HS [facility] Last Admin: 02/23/16 21:57 Dose: 18 units Lactobacillus Acidophilus (Bacid -) 1 tab PO DAILY [facility] Last Admin: 02/24/16 09:43 Dose: 1 tab Levothyroxine Sodium (Synthroid -) 50 mcg PO DAILY@0700 [facility] Last Admin: 02/24/16 06:44 Dose: 50 mcg Losartan Potassium (Cozaar -) 50 mg PO DAILY [facility] Last Admin: 02/24/16 09:44 Dose: 50 mg Methotrexate (Mexate -) 12.5 mg PO Th@1000 [facility] Methylprednisolone Sodium Succinate (Solu-Medrol -) 60 mg IVPB BID [facility] Last Admin: 02/24/16 09:48 Dose: 60 mg Montelukast Sodium (Singulair -) 10 mg PO DAILY [facility] Last Admin: 02/24/16 09:43 Dose: 10 mg Non-Formulary Medication (Biotin [Hard Nails]) 5,000 mcg PO DAILY [facility] Last Admin: 02/24/16 11:20 Dose: 5,000 mcg Non-Formulary Medication (Linaclotide [Linzess]) 145 mcg PO DAILY [facility] Last Admin: 02/24/16 09:50 Dose: 145 mcg Non-Formulary Medication (Meloxicam) 15 mg PO DAILY [facility] Last Admin: 02/24/16 09:47 Dose: 15 mg Patient's Own Medication (Non- Formulary) ( Topiramate 100 Mg) 100 mg PO BID [facility] Last Admin: 02/24/16 09:49 Dose: 100 mg Non-Formulary Medication (Umeclidinium [place] [Incruse Ellipta]) 62.5 mcg IH DAILY [facility] Last Admin: 02/24/16 09:50 Dose: 62.5 mcg [id number] Ethyl Esters (Lovaza -) 1 gm PO DAILY [facility] Last Admin: 02/24/16 09:46 Dose: 1 gm Pantoprazole Sodium (Protonix -) 40 mg PO DAILY [facility] Last Admin: 02/24/16 09:44 Dose: 40 mg Sertraline HCl (Zoloft -) 100 mg PO DAILY [facility] Last Admin: 02/24/16 09:44 Dose: 100 mg - Objective Vital Signs: Vital Signs Temperature 98.0 F 02/24/16 14:00 Pulse Rate 78 02/24/16 14:00 Respiratory Rate 20 02/24/16 14:00 Blood Pressure 147/70 02/24/16 14:00 O2 Sat by Pulse Oximetry (%) 97 02/24/16 09:00 Constitutional: Yes: No Distress Eyes: No: Sclera Icterus HENT: Yes: Atraumatic, Normocephalic Neck: Yes: Supple, Trachea Midline Cardiovascular: Yes: Regular Rate and Rhythm, JVD Respiratory: Yes: Wheezes (mild bilateral) Gastrointestinal: Yes: Soft. No: Tenderness Extremities: No: Calf Tenderness Edema: No Neurological: Yes: Alert, Oriented Labs: CBC, BMP 02/22/16 08:45 02/24/16 06:25 INR, PTT INR 1.06 (0.82-1.09) 02/20/16 06:00 Problem List - Problems (1) Acute exacerbation of chronic obstructive pulmonary disease (COPD) Code(s): J44.1 - CHRONIC OBSTRUCTIVE PULMONARY DISEASE W (ACUTE) EXACERBATION (2) CHF (congestive heart failure) Code(s): I50.9 - HEART FAILURE, UNSPECIFIED (3) Sleep apnea, obstructive Code(s): G47.33 - OBSTRUCTIVE SLEEP APNEA (ADULT) (PEDIATRIC) (4) Morbid obesity Code(s): E66.01 - MORBID (SEVERE) OBESITY DUE TO EXCESS CALORIES Assessment/Plan 60 year old woman with acute exacerbation COPD. Patient has DANY on CPAP and morbid obesity. Slowly improving Plan: CPAP at night and PRN Maintain SaO2> 90 Antibiotic IV steroids Inhaled bronchodilators Diuretic PRN
[2016-02-24] MEDS ORDERED: ACETYLCYSTEINE 20% 200MG/ML 4 ML VIAL *FOR ORAL / INH USE ONLY NEB ONE (16:45)
[2016-02-24] MEDS: ALBUTEROL SO4 0.083% IH SOL 2.5 MG/3 ML VIAL.NEB. NEB PRN (18:12)
[2016-02-24] MEDS: ATORVASTATIN CA 10 MG TABLET (FP) PO SCH (22:01)
[2016-02-24] MEDS: INSULIN DETEMIR 100 UNITS/ML MDV SQ SCH (22:02)
[2016-02-25] MEDS: INSULIN SLIDING SCALE (NOVOLOG) 1 VIAL SQ SCH ×4 (06:09→21:23)
[2016-02-25] MEDS: LEVOTHYROXINE NA 50 MCG TABLET (FP) PO SCH (06:09)
[2016-02-25] MEDS: HEPARIN NA (PORCINE) 5,000 UNITS/ML 1ML VIAL SQ SCH ×3 (06:09→21:19)
--- NOTE | 2016-02-25 07:56 | PN ---
Physical Exam: SUBJECTIVE: Patient seen and examined at bedside. feels much better, less dyspneic. In good mood Celebrating her birthday today. Denies fevers, chills. patient polyuric, BS 334, per nurse. received 18 lantus HS and 14 units novalog ISS. OBJECTIVE: Vital Signs Period Temp Pulse Resp BP Sys/Oconnell Pulse Ox Last 24 Hr 98.0 F-98.6 F 72-78 16-22 137-161/57-90 97-99 GENERAL: Awake, alert, and fully oriented, in no cute distress. morbid obese, HEAD: Normal with no signs of trauma. EYES: Pupils equal, round and reactive to light, extraocular movements intact, sclera anicteric, conjunctiva clear. No lid lag. EARS, NOSE, THROAT: Ears normal, nares patent, oropharynx clear without exudates. Moist mucous membranes. NECK: Normal range of motion, supple without lymphadenopathy, JVD, or masses. LUNGS: Breath sounds equal, clear to auscultation bilaterally. minimal diffused end expiatory wheezes much improved from yesterday , no rhonchi , and no crackles. No accessory muscle use. HEART: distant heart sounds, not appreciated, reproducible pain on middle lower left chest. ABDOMEN: Obese, Soft, nontender, not distended, normoactive bowel sounds, no guarding, no rebound, no masses. No hepatomegaly or splenomegaly. MUSCULOSKELETAL: Normal range of motion at all joints. No bony deformities or tenderness. No CVA tenderness. LOWER EXTREMITIES: 2+ pulses, warm, well-perfused. No calf tenderness. BLLE +1 peripheral edema. erythema resolved NEUROLOGICAL: Cranial nerves II-XII intact. speech normal PSYCHIATRIC: Cooperative. Good eye contact. Appropriate mood and affect. SKIN: Warm, dry, normal turgor, no rashes or lesions noted. Laboratory Results - last 24 hr 02/24/16 02/24/16 02/24/16 06:25 11:26 16:44 Sodium 139 Potassium 4.7 Chloride 102 Carbon Dioxide 29 Anion Gap 8 BUN 23 H Creatinine 1.3 H POC Glucometer 205 317 Random Glucose 334 H* D Calcium 8.7 02/24/16 02/25/16 22:07 05:35 Sodium Potassium Chloride Carbon Dioxide Anion Gap BUN Creatinine POC Glucometer 274 320 Random Glucose Calcium Active Medications Active Medications Generic Name Dose Route Start Last Admin Trade Name Freq PRN Reason Stop Dose Admin Acetaminophen 650 mg 02/20/16 16:17 02/20/16 16:44 Tylenol - PO 650 mg Q6H PRN Administration FEVER OR PAIN Atorvastatin Calcium 10 mg 02/19/16 22:00 02/24/16 22:01 Lipitor - PO 10 mg HS DONTA Administration Budesonide/Formoterol Fumarate 1 puff 02/19/16 22:00 02/25/16 10:32 Symbicort 160/4.5mcg - IH 1 puff BID DONTA Administration Carbamazepine 400 mg 02/19/16 22:00 02/25/16 10:38 Tegretol Xr - PO 400 mg BID [facility] Administration Cyclobenzaprine HCl 10 mg 02/19/16 17:21 02/21/16 10:32 Flexeril - PO 10 mg BID PRN Administration PAIN Folic Acid 2 mg 02/20/16 10:00 02/25/16 10:33 Folic Acid - PO 2 mg DAILY [facility] Administration Heparin Sodium (Porcine) 5,000 unit 02/19/16 22:00 02/25/16 15:06 Heparin - SQ 5,000 unit TID [facility] Administration Hydroxychloroquine Sulfate 200 mg 02/19/16 22:00 02/25/16 10:36 Plaquenil - PO 200 mg BID [facility] Administration Insulin Aspart 1 vial 02/19/16 22:00 02/25/16 17:16 Novolog Vial Sliding Scale - SQ 8 units ACHS [facility] Administration Protocol Insulin Detemir 23 units 02/25/16 22:00 Levemir Vial SQ HS [facility] Lactobacillus Acidophilus 1 tab 02/20/16 14:50 02/25/16 10:34 Bacid - PO 1 tab DAILY [facility] Administration Levofloxacin 750 mg 02/25/16 10:00 02/25/16 10:35 Levaquin - PO 750 mg DAILY@0600 [facility] Administration Levothyroxine Sodium 50 mcg 02/20/16 07:00 02/25/16 06:09 Synthroid - PO 50 mcg DAILY@0700 [facility] Administration Losartan Potassium 75 mg 02/26/16 10:00 Cozaar - PO DAILY [facility] Methotrexate 12.5 mg 02/26/16 10:00 Mexate - PO Th@1000 [facility] Methylprednisolone Sodium Succinate 60 mg 02/25/16 10:00 02/25/16 10:38 Solu-Medrol - IVPB 60 mg DAILY [facility] Administration Montelukast Sodium 10 mg 02/20/16 10:00 02/25/16 10:34 Singulair - PO 10 mg DAILY [facility] Administration Non-Formulary Medication 5,000 mcg 02/20/16 10:00 02/25/16 10:55 Biotin [Hard Nails] PO 5,000 mcg DAILY [facility] Administration Non-Formulary Medication 145 mcg 02/20/16 10:00 02/25/16 10:37 Linaclotide [Linzess] PO 145 mcg DAILY [facility] Administration Non-Formulary Medication 15 mg 02/20/16 10:00 02/25/16 10:37 Meloxicam PO 15 mg DAILY [facility] Administration Patient's Own 100 mg 02/19/16 22:00 02/25/16 10:38 Medication (Non- PO 100 mg Formulary) ( BID [facility] Administration Topiramate 100 Mg) Non-Formulary Medication 62.5 mcg 02/21/16 10:00 02/25/16 10:39 Umeclidinium Alexis [Incruse Ellipta] IH 62.5 mcg DAILY [facility] Administration [id number] Ethyl Esters 1 gm 02/20/16 15:00 02/25/16 10:35 Lovaza - PO 1 gm DAILY [facility] Administration Pantoprazole Sodium 40 mg 02/20/16 10:00 02/25/16 10:34 Protonix - PO 40 mg DAILY [facility] Administration Sertraline HCl 100 mg 02/20/16 10:00 02/25/16 10:34 Zoloft - PO 100 mg DAILY [facility] Administration ASSESSMENT/PLAN: This is a 60 year old female with PMHx of asthma, morbid obesity, diabetes, lupus, seizures, who presented to the ED s/p progressive SOB found to be in an asthma exacerbation, also complained of chest pain. # Acute respiratory distress, likely multifactorial, SOB refractory on asthma regiment with PO steroids,saturating 99% on 2L. Asthma: rhonchi and wheezing improving: productive cough improving with starting levaquin yesterday. - continue IV steroids yaima: decrease 60mg from BID to QID today. - Continue Singulair - Continue Symbicort - Continue Duonebs - (Umeclidinium Alexis [Incruse Ellipta]) 62.5 mcg - BNP- 299 - Pulmonary on board - cont Levaquin for productive sputum.(PCN allergy)Day 2 # chest Pain; likely pleuritic. no recurrent episodes, reproducible. - Monitor on telemetry - Serial troponin negative x3 # Systemic lupus erythematosus: will follow up as outpatient with Rheumatology. - Continue Plaquenil - Continue Methotrexate - on steroids # lower leg erythema and swelling: resolved # Type 2 diabetes mellitus: uncontrolled 2/2 steriods, BS 334, received 18 lantus HS and 14 units novalog ISS. - inc levimir to 23 units HS - ISS ACHS - BGM ACHS #elevated Blood sugars:2/2 steriods #polyurea; possibly second to elevated BS - will send for UA # Hypertension - Continue Cozaar 75mg daily # Hyperlipidemia - Continue Lipitor # Hypothyroidism - Continue Synthroid - Check TSH wNL # CKD stage 3: prerenal azotemia secondary to initial lasix, - Cr stable, continue to monitor # Seizure disorder - Continue Topamax, Tegretol # Chronic back pain -Cyclobenzaprine HCl (Flexeril) #GERD -Pantoprazole Sodium # major Depression -Sertraline HCl (Zoloft -) # F/E/N: - Monitor electrolytes - Diabetic low Na+ diet- birthday tray # Prophylaxis: - OOB ambulating DVT proph -subQ heparin Dispo: planing on d/c planning tomorrow pending improving resp status. Visit type - Emergency Visit Emergency Visit: Yes ED Registration Date: 02/19/16 Care time: The patient presented to the Emergency Department on the above date and was hospitalized for further evaluation of their emergent condition. - New Patient This patient is new to me today: No - Critical Care Critical Care patient: No
[2016-02-25 08:49] LABS: CREATININE 1.3 mg/dL (0.55-1.02)
[2016-02-25] MEDS: ALBUTEROL SO4 0.083% IH SOL 2.5 MG/3 ML VIAL.NEB. NEB PRN (09:24)
[2016-02-25] MEDS ORDERED: PT OWN MED DRAWER 7, Y5N ONE ×2 (10:29→11:25)
[2016-02-25] MEDS: BUDESONIDE/FORMETEROL FUMARATE 160/4.5 mcg INHALER IH SCH ×2 (10:32→21:24)
[2016-02-25] MEDS: FOLIC ACID 1 MG TABLET (FP) PO SCH (10:33)
[2016-02-25] MEDS: PANTOPRAZOLE 40 MG TABLET (FP) PO SCH (10:34)
[2016-02-25] MEDS: LOSARTAN POTASSIUM 50 MG TABLET (FP) PO SCH (10:34)
[2016-02-25] MEDS: LACTOBACILLUS ACIDOPHILUS 1 EACH TAB (FP) PO SCH (10:34)
[2016-02-25] MEDS: MONTELUKAST NA 10 MG TABLET PO SCH (10:34)
[2016-02-25] MEDS: SERTRALINE HCL 50 MG TABLET (FP) PO SCH (10:34)
[2016-02-25] MEDS: OMEGA-3 ACID ETHYL ESTERS (FATTY-ACIDS) 1 GM CAPSULE (FP) PO SCH (10:35)
[2016-02-25] MEDS: LEVOFLOXACIN 250 MG TABLET (FP) PO SCH (10:35)
[2016-02-25] MEDS: HYDROXYCHLOROQUINE SO4 200 MG TABLET (FP) PO SCH ×2 (10:36→21:24)
[2016-02-25] MEDS: PATIENT'S OWN MEDICATION (NON-FORMULARY) (Meloxicam 15 MG) PO SCH (10:37)
[2016-02-25] MEDS: PATIENT'S OWN MEDICATION (NON-FORMULARY) (Linaclotide [Linzess] 145 MCG) PO SCH (10:37)
[2016-02-25] MEDS: methylPREDNISolone NA SUCC 125 MG/2 ML VIAL IVPB SCH (10:38)
[2016-02-25] MEDS: carBAMazepine XR 400 MG TAB.ER.12H PO SCH ×2 (10:38→21:25)
[2016-02-25] MEDS: TOPIRAMATE 100 MG PO SCH ×2 (10:38→21:25)
[2016-02-25] MEDS: PATIENT'S OWN MEDICATION (NON-FORMULARY) (Umeclidinium Bromide [Incruse Ellipta] 62.5 MCG) IH SCH (10:39)
[2016-02-25] MEDS: BIOTIN 5000 MCG PO SCH (10:55)
[2016-02-25] MEDS ORDERED: LOSARTAN POTASSIUM 25 MG TABLET PO ONE (11:20)
--- NOTE | 2016-02-25 14:24 | PN ---
Progress Note, Physician History of Present Illness: Pt alert and oriented. Dyspnea improving. Pt ambulates short distances. No chest pain. Sleeps well on CPAP - Current Medication List Current Medications: Active Medications Acetaminophen (Tylenol -) 650 mg PO Q6H PRN PRN Reason: FEVER OR PAIN Last Admin: 02/20/16 16:44 Dose: 650 mg Albuterol Sulfate (Ventolin 0.083% Nebulizer Soln -) 1 amp NEB Q4H PRN PRN Reason: SHORT OF BREATH/WHEEZING Last Admin: 02/25/16 09:24 Dose: 1 amp Atorvastatin Calcium (Lipitor -) 10 mg PO HS [facility] Last Admin: 02/24/16 22:01 Dose: 10 mg Budesonide/Formoterol Fumarate (Symbicort 160/4.5mcg -) 1 puff IH BID [facility] Last Admin: 02/25/16 10:32 Dose: 1 puff Carbamazepine (Tegretol Xr -) 400 mg PO BID [facility] Last Admin: 02/25/16 10:38 Dose: 400 mg Cyclobenzaprine HCl (Flexeril -) 10 mg PO BID PRN PRN Reason: PAIN Last Admin: 02/21/16 10:32 Dose: 10 mg Folic Acid (Folic Acid -) 2 mg PO DAILY [facility] Last Admin: 02/25/16 10:33 Dose: 2 mg Heparin Sodium (Porcine) (Heparin -) 5,000 unit SQ TID [facility] Last Admin: 02/25/16 06:09 Dose: 5,000 unit Hydroxychloroquine Sulfate (Plaquenil -) 200 mg PO BID [facility] Last Admin: 02/25/16 10:36 Dose: 200 mg Insulin Aspart (Novolog Vial Sliding Scale -) 1 vial SQ ACHS [facility] PRN Reason: Protocol Last Admin: 02/25/16 11:48 Dose: 2 units Insulin Detemir (Levemir Vial) 23 units SQ [facility] Lactobacillus Acidophilus (Bacid -) 1 tab PO DAILY [facility] Last Admin: 02/25/16 10:34 Dose: 1 tab Levofloxacin (Levaquin -) 750 mg PO DAILY@0600 [facility] Last Admin: 02/25/16 10:35 Dose: 750 mg Levothyroxine Sodium (Synthroid -) 50 mcg PO DAILY@0700 [facility] Last Admin: 02/25/16 06:09 Dose: 50 mcg Losartan Potassium (Cozaar -) 75 mg PO DAILY [facility] Methotrexate (Mexate -) 12.5 mg PO Th@1000 [facility] Methylprednisolone Sodium Succinate (Solu-Medrol -) 60 mg IVPB DAILY [facility] Last Admin: 02/25/16 10:38 Dose: 60 mg Montelukast Sodium (Singulair -) 10 mg PO DAILY [facility] Last Admin: 02/25/16 10:34 Dose: 10 mg Non-Formulary Medication (Biotin [Hard Nails]) 5,000 mcg PO DAILY [facility] Last Admin: 02/25/16 10:55 Dose: 5,000 mcg Non-Formulary Medication (Linaclotide [Linzess]) 145 mcg PO DAILY [facility] Last Admin: 02/25/16 10:37 Dose: 145 mcg Non-Formulary Medication (Meloxicam) 15 mg PO DAILY [facility] Last Admin: 02/25/16 10:37 Dose: 15 mg Patient's Own Medication (Non- Formulary) ( Topiramate 100 Mg) 100 mg PO BID [facility] Last Admin: 02/25/16 10:38 Dose: 100 mg Non-Formulary Medication (Umeclidinium Vale [Incruse Ellipta]) 62.5 mcg IH DAILY [facility] Last Admin: 02/25/16 10:39 Dose: 62.5 mcg Ovoux-0-Axny Ethyl Esters (Lovaza -) 1 gm PO DAILY [facility] Last Admin: 02/25/16 10:35 Dose: 1 gm Pantoprazole Sodium (Protonix -) 40 mg PO DAILY [facility] Last Admin: 02/25/16 10:34 Dose: 40 mg Sertraline HCl (Zoloft -) 100 mg PO DAILY [facility] Last Admin: 02/25/16 10:34 Dose: 100 mg - Objective Vital Signs: Vital Signs Temperature 98.4 F 02/25/16 13:37 Pulse Rate 83 02/25/16 13:37 Respiratory Rate 21 02/25/16 13:37 Blood Pressure 141/72 02/25/16 13:37 O2 Sat by Pulse Oximetry (%) 98 02/25/16 09:24 Constitutional: Yes: No Distress Eyes: No: Sclera Icterus HENT: Yes: Atraumatic. No: Normocephalic Neck: Yes: Supple, Trachea Midline Cardiovascular: Yes: Regular Rate and Rhythm. No: JVD Respiratory: Yes: Diminished Gastrointestinal: Yes: Soft. No: Tenderness Extremities: No: Calf Tenderness Edema: No Labs: CBC, BMP 02/22/16 08:45 02/25/16 07:50 INR, PTT INR 1.06 (0.82-1.09) 02/20/16 06:00 Problem List - Problems (1) Acute exacerbation of chronic obstructive pulmonary disease (COPD) Code(s): J44.1 - CHRONIC OBSTRUCTIVE PULMONARY DISEASE W (ACUTE) EXACERBATION (2) CHF (congestive heart failure) Code(s): I50.9 - HEART FAILURE, UNSPECIFIED (3) Sleep apnea, obstructive Code(s): G47.33 - OBSTRUCTIVE SLEEP APNEA (ADULT) (PEDIATRIC) (4) Morbid obesity Code(s): E66.01 - MORBID (SEVERE) OBESITY DUE TO EXCESS CALORIES Assessment/Plan 60 year old woman with acute exacerbation COPD. Patient has DANY on CPAP and obesity. Resp. status is improving Plan: CPAP at night and PRN Maintain SaO2> 90 Antibiotic Steroid taper in progress Inhaled bronchodilators Diuretic PRN
--- NOTE | 2016-02-25 14:59 | PN ---
Teaching Attending Note Name of Resident: Raleigh Bell ATTENDING PHYSICIAN STATEMENT I saw and evaluated the patient. I reviewed the resident's note and discussed the case with the resident. I agree with the resident's findings and plan as documented. SUBJECTIVE:states breathing has improved. cough continues to be productive but decreased in production. denies CP, fever, chills, N/V/C/D OBJECTIVE: Last Vital Signs Temp Pulse Resp BP Pulse Ox 98.4 F 83 21 141/72 98 02/25/16 13:37 02/25/16 13:37 02/25/16 13:37 02/25/16 13:37 02/25/16 09:24 General NAD CV S1 S2 RRR no murmur/rub/gallop Lungs CTA B/L no wheezing/rales/rhonchi ASSESSMENT AND PLAN: 60yo F with PMH SLE, Ashtma, DANY, DM , dyslipidemia, hypothyroid presented to the ER and was admitted for further evaluation of their emergent condition 1. Acute COPD exacerbation-saturating 98% on RA. started on levaquin yesterday with improvement. will decrease IV steroids to daily dosing. pulmonary on board. inhalers. nebs prn. pulmonary on board 2. CP-likely pleuritic. no recurrent episodes 3. NAN- was given lasix on presentation. no signs of bolume overload 4. DM- uncontrolled. likely due to steroids. will increase lantus to 23units QHS. iss, bgm 5. HTN- uncontrolled. increase losartan. monitor 6. SLE/RA- on MTX and plaquinil. 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 agrees to follow up with next week for monitoring on steroids. 7. Hypothyroid- cont Lt4 8. DVT ppx- hep sq 9. d/c planning tomorrow pending improved respiratory status and transition to po steroids.
[2016-02-25 19:45] LABS: PH,URINE 6.5 (5.0-8.0); URINE APPEARANCE CLEAR; URINE BILIRUBIN NEGATIVE (NEGATIVE); URINE BLOOD NEGATIVE (NEGATIVE); URINE COLOR LT. YELLOW; URINE GLUCOSE (UA) 3+ (NEGATIVE); URINE KETONE NEGATIVE (NEGATIVE); URINE LEUK ESTERASE NEGATIVE (NEGATIVE); URINE NITRITE NEGATIVE (NEGATIVE); URINE PROTEIN NEGATIVE (NEGATIVE); URINE UROBILINOGEN 0.2 E.U/dl E.U./dl (0.2-1.0)
[2016-02-25] MEDS: ATORVASTATIN CA 10 MG TABLET (FP) PO SCH (21:23)
[2016-02-25] MEDS ORDERED: INSULIN DETEMIR 100 UNITS/ML MDV SQ SCH (22:00)
[2016-02-26] MEDS: HEPARIN NA (PORCINE) 5,000 UNITS/ML 1ML VIAL SQ SCH ×2 (06:31→16:01)
[2016-02-26] MEDS: LEVOFLOXACIN 250 MG TABLET (FP) PO SCH (06:32)
[2016-02-26] MEDS: INSULIN SLIDING SCALE (NOVOLOG) 1 VIAL SQ SCH ×3 (06:34→17:39)
[2016-02-26] MEDS: LEVOTHYROXINE NA 50 MCG TABLET (FP) PO SCH (06:35)
[2016-02-26 08:59] LABS: CREATININE 1.2 mg/dL (0.55-1.02)
[2016-02-26] MEDS ORDERED: LOSARTAN POTASSIUM 50 MG TABLET (FP) PO SCH (10:00)
[2016-02-26] MEDS ORDERED: METHOTREXATE 2.5 MG TABLET PO SCH (10:00)
[2016-02-26] MEDS: SERTRALINE HCL 50 MG TABLET (FP) PO SCH (11:03)
[2016-02-26] MEDS: CYCLOBENZAPRINE HCL 10 MG TABLET (FP) PO PRN (11:04)
[2016-02-26] MEDS: PANTOPRAZOLE 40 MG TABLET (FP) PO SCH (11:04)
[2016-02-26] MEDS: FOLIC ACID 1 MG TABLET (FP) PO SCH (11:04)
[2016-02-26] MEDS: MONTELUKAST NA 10 MG TABLET PO SCH (11:04)
[2016-02-26] MEDS: LACTOBACILLUS ACIDOPHILUS 1 EACH TAB (FP) PO SCH (11:06)
[2016-02-26] MEDS: BIOTIN 5000 MCG PO SCH (11:07)
[2016-02-26] MEDS: OMEGA-3 ACID ETHYL ESTERS (FATTY-ACIDS) 1 GM CAPSULE (FP) PO SCH (11:08)
[2016-02-26] MEDS: PATIENT'S OWN MEDICATION (NON-FORMULARY) (Linaclotide [Linzess] 145 MCG) PO SCH (11:08)
[2016-02-26] MEDS: PATIENT'S OWN MEDICATION (NON-FORMULARY) (Meloxicam 15 MG) PO SCH (11:08)
[2016-02-26] MEDS: HYDROXYCHLOROQUINE SO4 200 MG TABLET (FP) PO SCH (11:12)
[2016-02-26] MEDS: BUDESONIDE/FORMETEROL FUMARATE 160/4.5 mcg INHALER IH SCH (11:13)
[2016-02-26] MEDS: methylPREDNISolone NA SUCC 125 MG/2 ML VIAL IVPB SCH (11:13)
[2016-02-26] MEDS: carBAMazepine XR 400 MG TAB.ER.12H PO SCH (11:13)
[2016-02-26] MEDS: TOPIRAMATE 100 MG PO SCH (11:15)
[2016-02-26] MEDS: PATIENT'S OWN MEDICATION (NON-FORMULARY) (Umeclidinium Bromide [Incruse Ellipta] 62.5 MCG) IH SCH (11:16)
--- NOTE | 2016-02-26 13:21 | PN ---
Teaching Attending Note Name of Resident: Raleigh Bell ATTENDING PHYSICIAN STATEMENT I saw and evaluated the patient. I reviewed the resident's note and discussed the case with the resident. I agree with the resident's findings and plan as documented. SUBJECTIVE:states breathing has improved. has intermittent cough but minimal production. denies CP, fever, chills, N/V/C/D OBJECTIVE: Last Vital Signs Temp Pulse Resp BP Pulse Ox 97.9 F 77 20 137/66 91 L 02/26/16 09:32 02/26/16 09:32 02/26/16 09:32 02/26/16 09:32 02/25/16 21:00 General NAD CV S1 S2 RRR no murmur/rub/gallop Lungs CTA B/L no wheezing/rales/rhonchi ASSESSMENT AND PLAN: 60yo F with PMH SLE, Ashtma, DANY, DM , dyslipidemia, hypothyroid presented to the ER and was admitted for further evaluation of their emergent condition 1. Acute COPD exacerbation-clinically improved. on Levaquin day 3. will slowly titrate down steroids every 3 days. check pre and post if qualified for home O2. cont cpap at bedtime. f/u with pulmonary on tuesday. inhalers. nebs prn. 2. CP-likely pleuritic. no recurrent episodes 3. NAN- was given lasix on presentation. now improved. 4. DM- improved. cont current dosing. instructed to monitor sugars closely and bring sugar log to PMD appointment, encouraged to make appointment for tuesday the latest so insulin dosing can be further adjusted. hold home management 5. HTN- improved. losartan increased yesterday. 6. SLE/RA- on MTX and plaquinil. 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 agrees to follow up with next week for monitoring on steroids. 7. Hypothyroid- cont Lt4 8. DVT ppx- hep sq 9. d/c home on steroid taper and levaquin to complete 5 day course
--- NOTE | 2016-02-26 14:08 | DS ---
Physical Exam: SUBJECTIVE: Patient seen and examined at bedside. feels much better, less dyspneic. alert and oriented. Pt ambulates short distances. cough continues to be productive but decreased in production. Denies chest pain, fevers, chills.Sleeps well on CPAP OBJECTIVE: Vital Signs Period Temp Pulse Resp BP Sys/Oconnell Pulse Ox Last 24 Hr 97.9 F-98.7 F 72-81 18-24 134-152/52-72 91-99 PHYSICAL EXAM GENERAL: Awake, alert, and fully oriented, in no cute distress. morbid obese, HEAD: Normal with no signs of trauma. EYES: extraocular movements intact, sclera anicteric, conjunctiva clear. EARS, NOSE, THROAT: Ears normal, nares patent, oropharynx clear without exudates. Moist mucous membranes. NECK: Normal range of motion, supple without lymphadenopathy, LUNGS:CTA B/L no wheezing/rales/rhonchi HEART: distant heart sounds, not appreciated, reproducible pain on middle lower left chest. ABDOMEN: Obese, Soft, nontender, not distended, normoactive bowel sounds, no guarding, no rebound, no masses. MUSCULOSKELETAL: Normal range of motion at all joints. No bony deformities or tenderness. No CVA tenderness. LOWER EXTREMITIES: 2+ pulses, warm, well-perfused. No calf tenderness. BLLE +1 peripheral edema. erythema resolved NEUROLOGICAL: speech normal LABS Laboratory Results - last 24 hr 02/25/16 02/25/16 02/25/16 17:15 18:00 21:18 Sodium Potassium Chloride Carbon Dioxide Anion Gap BUN Creatinine POC Glucometer 305 327 Random Glucose Calcium Urine Color Lt. yellow Urine Appearance Clear Urine pH 6.5 Ur Specific [place] 1.010 Urine Protein Negative Urine Glucose (UA) 3+ H D Urine Ketones Negative Urine Blood Negative Urine Nitrite Negative Urine Bilirubin Negative Urine Urobilinogen 0.2 e.u/dl Ur Leukocyte Esterase Negative 02/26/16 02/26/16 02/26/16 06:30 06:45 11:36 Sodium 143 Potassium 3.8 Chloride 105 Carbon Dioxide 27 Anion Gap 11 BUN 21 H Creatinine 1.2 H POC Glucometer 192 211 Random Glucose 190 H D Calcium 9.0 Urine Color Urine Appearance Urine pH Ur Specific [place] Urine Protein Urine Glucose (UA) Urine Ketones Urine Blood Urine Nitrite Urine Bilirubin Urine Urobilinogen Ur Leukocyte Esterase Active Medications Generic Name Dose Route Start Last Admin Trade Name Freq PRN Reason Stop Dose Admin Acetaminophen 650 mg 02/20/16 16:17 02/20/16 16:44 Tylenol - PO 650 mg Q6H PRN Administration FEVER OR PAIN Atorvastatin Calcium 10 mg 02/19/16 22:00 02/25/16 21:23 Lipitor - PO 10 mg HS DONTA Administration Budesonide/Formoterol Fumarate 1 puff 02/19/16 22:00 02/26/16 11:13 Symbicort 160/4.5mcg - IH 1 puff BID DONTA Administration Carbamazepine 400 mg 02/19/16 22:00 02/26/16 11:13 Tegretol Xr - PO 400 mg BID DONTA Administration Cyclobenzaprine HCl 10 mg 02/19/16 17:21 02/26/16 11:04 Flexeril - PO 10 mg BID PRN Administration PAIN Folic Acid 2 mg 02/20/16 10:00 02/26/16 11:04 Folic Acid - PO 2 mg DAILY DONTA Administration Heparin Sodium (Porcine) 5,000 unit 02/19/16 22:00 02/26/16 06:31 Heparin - SQ 5,000 unit TID DONTA Administration Hydroxychloroquine Sulfate 200 mg 02/19/16 22:00 02/26/16 11:12 Plaquenil - PO 200 mg BID DONTA Administration Insulin Aspart 1 vial 02/19/16 22:00 02/26/16 11:59 Novolog Vial Sliding Scale - SQ 4 units ACHS DONTA Administration Protocol Insulin Detemir 23 units 02/25/16 22:00 02/25/16 21:22 Levemir Vial SQ 23 units HS DONTA Administration Lactobacillus Acidophilus 1 tab 02/20/16 14:50 02/26/16 11:06 Bacid - PO 1 tab DAILY DONTA Administration Levofloxacin 750 mg 02/25/16 10:00 02/26/16 06:32 Levaquin - PO 750 mg DAILY@0600 DONTA Administration Levothyroxine Sodium 50 mcg 02/20/16 07:00 02/26/16 06:35 Synthroid - PO 50 mcg DAILY@0700 DONTA Administration Losartan Potassium 75 mg 02/26/16 10:00 02/26/16 11:04 Cozaar - PO 75 mg DAILY DONTA Administration Methotrexate 12.5 mg 02/26/16 10:00 02/26/16 11:11 Mexate - PO 12.5 mg Th@1000 DONTA Administration Methylprednisolone Sodium Succinate 60 mg 02/25/16 10:00 02/26/16 11:13 Solu-Medrol - IVPB 60 mg DAILY DONTA Administration Montelukast Sodium 10 mg 02/20/16 10:00 02/26/16 11:04 Singulair - PO 10 mg DAILY DONTA Administration Non-Formulary Medication 5,000 mcg 02/20/16 10:00 02/26/16 11:07 Biotin [Hard Nails] PO 5,000 mcg DAILY DONTA Administration Non-Formulary Medication 145 mcg 02/20/16 10:00 02/26/16 11:08 Linaclotide [Linzess] PO 145 mcg DAILY DONTA Administration Non-Formulary Medication 15 mg 02/20/16 10:00 02/26/16 11:08 Meloxicam PO 15 mg DAILY DONTA Administration Patient's Own 100 mg 02/19/16 22:00 02/26/16 11:15 Medication (Non- PO 100 mg Formulary) ( BID DONTA Administration Topiramate 100 Mg) Non-Formulary Medication 62.5 mcg 02/21/16 10:00 02/26/16 11:16 Umeclidinium [place] [Incruse Ellipta] IH 62.5 mcg DAILY DONTA Administration [id number] Ethyl Esters 1 gm 02/20/16 15:00 02/26/16 11:08 Lovaza - PO 1 gm DAILY DONTA Administration Pantoprazole Sodium 40 mg 02/20/16 10:00 02/26/16 11:04 Protonix - PO 40 mg DAILY DONTA Administration Sertraline HCl 100 mg 02/20/16 10:00 02/26/16 11:03 Zoloft - PO 100 mg DAILY DONTA Administration Vital Signs Period Temp Pulse Resp BP Sys/Oconnell Pulse Ox Last 24 Hr 97.9 F-98.7 F 72-81 18-24 134-152/52-72 91-99 HOSPITAL COURSE: Date of Admission:02/19/16 Date of Discharge: 02/26/16 pre and post sat 97% and 95 % respectively, continue Cpap at sleep for DANY. This is a 60 year old female with PMHx of asthma, morbid obesity, diabetes, lupus, seizures, who presented to the ED s/p progressive SOB found to be in an asthma exacerbation, also complained of chest pain. found to have Acute respiratory distress, likely multifactorial, SOB refractory on asthma regiment with PO steroids,saturating 99% on 2L. Asthma: rhonchi and wheezing improving: productive cough improving with levaquin(PCN allergy), IV steroids yiama: bronchio dilators Continue Singulair, Continue Symbicort, Continue Duonebs, ( Umeclidinium [place] [Incruse Ellipta]) Systemic lupus erythematosus: will follow up as outpatient with Rheumatology.( Plaquenil, Methotrexate,on steroids). LLE erythema and swelling: resolved. Type 2 diabetes mellitus: uncontrolled 2/2 steriods. Minutes to complete discharge: 42 Discharge Summary Reason For Visit: ASTHMA EXACERBATION Current Active Problems Acute exacerbation of chronic obstructive pulmonary disease (COPD) (Acute) Asthma exacerbation (Acute) CHF (congestive heart failure) (Acute) CKD (chronic kidney disease) stage 3, GFR 30-59 ml/min (Acute) Hypertension (Acute) Hypothyroidism (Acute) Numbness and tingling in left arm (Acute) SLE (systemic lupus erythematosus) (Acute) Shortness of breath (Acute) Sleep apnea, obstructive (Acute) Type 2 diabetes mellitus (Acute) URI (upper respiratory infection) (Acute) Atypical chest pain (Chronic) Chest pain (Chronic) Diabetic peripheral neuropathy (Chronic) Foot pain (Chronic) Morbid obesity (Chronic) Seizure disorder (Chronic) Condition: Stable - Instructions Diet, Activity, Other Instructions: You are being discharged home. Please call and follow up with your primary care provider Dr. Hernandez in 48 hours to assess your health. Please log your Blood sugars and bring them in to your doctor can assess your insulin regiment in light of your steroid use. We have adjusted your blood pressure medications and please take them to your PCP so he can assess your blood pressure management. Please call and follow up with pulmonology Dr. Hyde in 1 week, to follow up your asthma and oxygen control. Please call and follow up with your House Fellow in 1 week, to follow up your SLE, lung flair, and steroid yaima. Prednisone yaima: Please the prednisone taper Start with once daily( 60 mg for 3 days, then 50mg for 3 days, then 40mg for 3 days, 30 mg for 3 days, then 20mg for 3 days, then see your House Fellow to adjust the rest of your yaima. Please complete course of 4 more days of antibiotics to compete yoru 7 day course even, if you start feeling better. please take your medications as prescribed. Please reports to the ER or the nearest ER if you have any persistent and worsening symptoms, chest pain, palpitation, fevers, chills, night sweats, Nausea, Vomiting, severe headache dizziness or loss of consciousness. Referrals: Goran Hernandez MD [Primary Care Provider] - 02/28/16 Morgan Hyde MD [Staff Physician] - 1 Week Disposition: HOME - Home Medications Comprehensive Discharge Medication List: Ambulatory Orders Albuterol Sulfate Inhaler - [Ventolin HFA Inhaler -] 1 - 2 inh PO QID PRN Aspirin/Calcium Carbonate/Mag [Aspirin Buffered 325 mg Tab] 325 mg PO BID Atorvastatin Ca [Lipitor] 10 mg PO DAILY 10/20/15 Biotin [Hard Nails] 5,000 mcg PO DAILY 10/20/15 Budesonide/Formeterol Fumarate [SYMBICORT 160/4.5mcg -] 1 inh PO BID 10/20/15 Carbamazepine Xr [Tegretol Xr -] 400 mg PO BID 10/20/15 Folic Acid 2 mg PO DAILY 10/20/15 Hydroxychloroquine Sulfate [Plaquenil] 200 mg PO BID 10/20/15 L.acidop,Daren,Lac,Rha/B.lac,Edmundo [Advanced Probiotic Capsule] 625 mg PO DAILY 06/29 Levothyroxine [Synthroid -] 50 mcg PO DAILY 10/20/15 Linaclotide [Linzess] 145 mcg PO DAILY 10/20/15 Meloxicam [Mobic (Nf) -] 15 mg PO DAILY 10/20/15 Methotrexate [Mexate -] 12.5 mg PO Q7D 10/20/15 Montelukast Na [Singulair -] 10 mg PO DAILY 10/20/15 [place]wl-3 Fatty Acids [[place]wl-3] 2 tab PO DAILY 10/20/15 Omeprazole [Prilosec] 40 mg PO DAILY 10/20/15 Sertraline HCl [Zoloft -] 100 mg PO DAILY 10/20/15 Topiramate [Trokendi Xr] 100 mg PO BID 10/20/15 Umeclidinium [place] [Incruse Ellipta] 62.5 mcg IH ASDIR 10/20/15 Insulin (Levemir) [Levemir Vial] 23 units SQ HS #24 ml 02/26/16 Insulin Sliding Scale [Novolog Vial Sliding Scale -] 1 vial SQ ACHS #200 units 02/26/16 Levofloxacin [Levaquin -] 750 mg PO DAILY@0600 #4 tablet 02/26/16 Losartan Potassium [Cozaar -] 75 mg PO DAILY #60 tablet 02/26/16 This patient is new to me today: Yes Date on this admission: 05/17/16 Emergency Visit: No Critical Care patient: No - Discharge Referral Referred to [facility] No
[2016-02-26] MEDS ORDERED: ALBUTEROL SO4 0.083% IH SOL 2.5 MG/3 ML VIAL.NEB. NEB ONE (15:23)
[2016-02-26] MEDS: ALBUTEROL SO4 0.083% IH SOL 2.5 MG/3 ML VIAL.NEB. NEB PRN (15:36)
--- NOTE | 2016-02-26 17:29 | PN ---
Progress Note, Physician History of Present Illness: Pt alert and oriented. Dyspnea improved. . No chest pain. Sleeps well on CPAP - Current Medication List Current Medications: Active Medications Acetaminophen (Tylenol -) 650 mg PO Q6H PRN PRN Reason: FEVER OR PAIN Last Admin: 02/20/16 16:44 Dose: 650 mg Atorvastatin Calcium (Lipitor -) 10 mg PO HS [facility] Last Admin: 02/25/16 21:23 Dose: 10 mg Budesonide/Formoterol Fumarate (Symbicort 160/4.5mcg -) 1 puff IH BID [facility] Last Admin: 02/26/16 11:13 Dose: 1 puff Carbamazepine (Tegretol Xr -) 400 mg PO BID [facility] Last Admin: 02/26/16 11:13 Dose: 400 mg Cyclobenzaprine HCl (Flexeril -) 10 mg PO BID PRN PRN Reason: PAIN Last Admin: 02/26/16 11:04 Dose: 10 mg Folic Acid (Folic Acid -) 2 mg PO DAILY [facility] Last Admin: 02/26/16 11:04 Dose: 2 mg Heparin Sodium (Porcine) (Heparin -) 5,000 unit SQ TID [facility] Last Admin: 02/26/16 16:01 Dose: 5,000 unit Hydroxychloroquine Sulfate (Plaquenil -) 200 mg PO BID [facility] Last Admin: 02/26/16 11:12 Dose: 200 mg Insulin Aspart (Novolog Vial Sliding Scale -) 1 vial SQ ACHS [facility] PRN Reason: Protocol Last Admin: 02/26/16 11:59 Dose: 4 units Insulin Detemir (Levemir Vial) 23 units SQ [facility] Last Admin: 02/25/16 21:22 Dose: 23 units Lactobacillus Acidophilus (Bacid -) 1 tab PO DAILY [facility] Last Admin: 02/26/16 11:06 Dose: 1 tab Levofloxacin (Levaquin -) 750 mg PO DAILY@0600 [facility] Last Admin: 02/26/16 06:32 Dose: 750 mg Levothyroxine Sodium (Synthroid -) 50 mcg PO DAILY@0700 [facility] Last Admin: 02/26/16 06:35 Dose: 50 mcg Losartan Potassium (Cozaar -) 75 mg PO DAILY [facility] Last Admin: 02/26/16 11:04 Dose: 75 mg Methotrexate (Mexate -) 12.5 mg PO Th@1000 [facility] Last Admin: 02/26/16 11:11 Dose: 12.5 mg Methylprednisolone Sodium Succinate (Solu-Medrol -) 60 mg IVPB DAILY [facility] Last Admin: 02/26/16 11:13 Dose: 60 mg Montelukast Sodium (Singulair -) 10 mg PO DAILY [facility] Last Admin: 02/26/16 11:04 Dose: 10 mg Non-Formulary Medication (Biotin [Hard Nails]) 5,000 mcg PO DAILY [facility] Last Admin: 02/26/16 11:07 Dose: 5,000 mcg Non-Formulary Medication (Linaclotide [Linzess]) 145 mcg PO DAILY [facility] Last Admin: 02/26/16 11:08 Dose: 145 mcg Non-Formulary Medication (Meloxicam) 15 mg PO DAILY [facility] Last Admin: 02/26/16 11:08 Dose: 15 mg Patient's Own Medication (Non- Formulary) ( Topiramate 100 Mg) 100 mg PO BID [facility] Last Admin: 02/26/16 11:15 Dose: 100 mg Non-Formulary Medication (Umeclidinium [place] [Incruse Ellipta]) 62.5 mcg IH DAILY [facility] Last Admin: 02/26/16 11:16 Dose: 62.5 mcg [id number] Ethyl Esters (Lovaza -) 1 gm PO DAILY [facility] Last Admin: 02/26/16 11:08 Dose: 1 gm Pantoprazole Sodium (Protonix -) 40 mg PO DAILY [facility] Last Admin: 02/26/16 11:04 Dose: 40 mg Sertraline HCl (Zoloft -) 100 mg PO DAILY [facility] Last Admin: 02/26/16 11:03 Dose: 100 mg - Objective Vital Signs: Vital Signs Temperature 98.7 F 02/26/16 15:16 Pulse Rate 68 02/26/16 15:32 Respiratory Rate 19 02/26/16 15:16 Blood Pressure 125/61 02/26/16 15:16 O2 Sat by Pulse Oximetry (%) 95 02/26/16 15:32 Constitutional: Yes: No Distress Eyes: No: Sclera Icterus HENT: Yes: Atraumatic, Normocephalic Neck: Yes: Supple, Trachea Midline Cardiovascular: Yes: Regular Rate and Rhythm. No: JVD Respiratory: Yes: CTA Bilaterally Gastrointestinal: Yes: Soft. No: Tenderness Extremities: No: Calf Tenderness Edema: No Neurological: Yes: Alert, Oriented Labs: CBC, BMP 02/22/16 08:45 02/26/16 06:45 INR, PTT INR 1.06 (0.82-1.09) 02/20/16 06:00 Problem List - Problems (1) Acute exacerbation of chronic obstructive pulmonary disease (COPD) Code(s): J44.1 - CHRONIC OBSTRUCTIVE PULMONARY DISEASE W (ACUTE) EXACERBATION (2) CHF (congestive heart failure) Code(s): I50.9 - HEART FAILURE, UNSPECIFIED (3) Sleep apnea, obstructive Code(s): G47.33 - OBSTRUCTIVE SLEEP APNEA (ADULT) (PEDIATRIC) (4) Morbid obesity Code(s): E66.01 - MORBID (SEVERE) OBESITY DUE TO EXCESS CALORIES Assessment/Plan 60 year old woman with acute exacerbation COPD. Patient has DANY on CPAP and obesity. Resp. status improved Plan: CPAP at night and PRN Maintain SaO2> 90 Antibiotic Steroid taper in progress Inhaled bronchodilators Diuretic PRN Discharge planning in progress; f/u in office in two weeks
[2016-02-26 18:47] VITALS: BP 156/70; PULSE 93; TEMP 98.5
== END 2016-02-26 18:55 | disposition home or self-care (01) | DRG 191 ==
LOC: JER 10:07 → JERBED 12:57 → J5S 18:00
PROVIDERS: ADMIT Internal Medicine; ATTEND Internal Medicine
PROC: 5A09557 Assistance with Respiratory Ventilation, Greater than 96 Consecutive Hours, Continuous Positive Airway Pressure (ICD-10-PCS; principal; 2016-02-19)
DX: J44.1 Chronic obstructive pulmonary disease with (acute) exacerbation (principal); J45.901 Unspecified asthma with (acute) exacerbation; Z68.42 Body mass index [BMI] 45.0-49.9, adult; N17.9 Acute kidney failure, unspecified; R07.9 Chest pain, unspecified; M32.9 Systemic lupus erythematosus, unspecified; E78.5 Hyperlipidemia, unspecified; E03.9 Hypothyroidism, unspecified; I12.9 Hypertensive chronic kidney disease with stage 1 through stage 4 chronic kidney disease, or unspecified chronic kidney disease; N18.3 Chronic kidney disease, stage 3 (moderate); G40.909 Epilepsy, unspecified, not intractable, without status epilepticus; M54.9 Dorsalgia, unspecified; K21.9 Gastro-esophageal reflux disease without esophagitis; F32.9 Major depressive disorder, single episode, unspecified; I50.9 Heart failure, unspecified; G47.33 Obstructive sleep apnea (adult) (pediatric); E66.01 Morbid (severe) obesity due to excess calories; E11.65 Type 2 diabetes mellitus with hyperglycemia
CPT/HCPCS: 36415; 71010-TC; 71275-TC; 80048; 80053; 80061; 81003; 81015; 82550; 82553; 83036; 83721; 83735; 83880; 84100; 84443; 84484; 85025; 85610; 93005; 93010; 93306-TC; 93970-TC; 94640; 94660; 94761; 97116-GP; 97163-GP; 99281-25; J1644; J8610

== ENCOUNTER 2016-03-03 22:21 | Inpatient (IN) | payer OTHER ==
--- NOTE | 2016-03-03 22:37 | PDOC ---
History of Present Illness - General History Source: Patient Exam Limitations: No Limitations - History of Present Illness Initial Comments: 03/03/16 23:08 The patient is a 61 year old female with significant past medical history of Asthma, lupus, seizure (last 2009), syncope, COPD, sleep apnea on cpap, type 2 DM, hyperlipidemia, hypothyroidism who presents to the ED with worsening SOB, wheezing, and coughing. Patient was seen in the ER on 02/18 for worsening SOB, where she was admitted for asthma exacerbation and discharged on 02/25 with levaquin and prednisone. She returns today for worsening SOB and productive cough with phlegm. Patient reports she completed the full course of levaquin and is currently taking the prednisone with no improvement. She reports worsening dyspnea on exertion and increase leg swelling. She also has complaints of mid sternal radiating to left sided chest pain, which has been on going for the past 2-3 weeks. Patient denies diaphoresis, shoulder pain, arm pain, jaw pain, nausea, and vomiting. The patient denies fever, chills, abdominal pain, and diarrhea. Allergies: gabapentin, penicillin Social History: No alcohol, tobacco, or drug use reported. Past Surgical History: R hip replacement, bilateral knee arthroscopy, bilateral bunionectomy, cholecystectomy PCP: Dr. Goran Hernandez [employer]: Dr. Morgan Hyde <Francesca Garcia - Last Filed: 03/04/16 00:33> - General History Source: Patient <Carmine Angel - Last Filed: 03/04/16 01:03> - General Chief Complaint: Respiratory Distress Stated Complaint: SHORTNESS OF BREATH Time Seen by Provider: 03/03/16 22:36 Past History <Francesca Garcia - Last Filed: 03/04/16 00:33> - Past Medical History Anemia: No Asthma: Yes Cancer: No Cardiac Disorders: No CVA: No COPD: Yes CHF: No Dementia: No Diabetes: Yes (IDDM) GI Disorders: Yes (REFLUX) Disorders: No HTN: Yes Hypercholesterolemia: Yes Liver Disease: No Seizures: Yes Thyroid Disease: Yes (HYPO) - Surgical History Abdominal Surgery: No Appendectomy: No Cardiac Surgery: No Cholecystectomy: Yes Lung Surgery: No Neurologic Surgery: No Orthopedic Surgery: Yes (08/2014 R HIP REPLACEMENT, BILAT KNEE ARTHROSCOPY, BILAT BUNIONECTOMY,) - Immunization History Immunization Up to Date: Yes - Psycho/Social/Smoking Cessation Hx Anxiety: No Suicidal Ideation: No Smoking Status: Yes Smoking History: Never smoked Have you smoked in the past 12 months: No Number of Cigarettes Smoked Daily: 0 If you are a former smoker, when did you quit?: 2004 Information on smoking cessation initiated: No Hx Alcohol Use: No Drug/Substance Use Hx: No Substance Use Type: None Hx Substance Use Treatment: No <Carmine Angel - Last Filed: 03/04/16 01:03> - Past Medical History Allergies/Adverse Reactions: Allergies Allergy/AdvReac Type Severity Reaction Status Date / Time gabapentin [From Neurontin] Allergy PALPITATIONS, Verified 03/03/16 22:22 PASSES OUT Penicillins Allergy TONGUE Verified 03/03/16 22:22 Swelling phenytoin sodium Allergy diarrhea/vo Verified 03/03/16 22:22 [From Dilantin] miting phenytoin sodium extended Allergy Verified 03/03/16 22:22 [From Dilantin] theophylline [Theophylline] Allergy diarrhea,SE Verified 03/03/16 22:22 IZURES Home Medications: Ambulatory Orders Albuterol Sulfate Inhaler - [Ventolin HFA Inhaler -] 1 - 2 inh PO QID PRN Aspirin/Calcium Carbonate/Mag [Aspirin Buffered 325 mg Tab] 325 mg PO BID Atorvastatin Ca [Lipitor] 10 mg PO DAILY 10/20/15 Biotin [Hard Nails] 5,000 mcg PO DAILY 10/20/15 Budesonide/Formeterol Fumarate [SYMBICORT 160/4.5mcg -] 1 inh PO BID 10/20/15 Carbamazepine Xr [Tegretol XR -] 400 mg PO BID 10/20/15 Folic Acid 2 mg PO DAILY 10/20/15 Hydroxychloroquine Sulfate [Plaquenil] 200 mg PO BID 10/20/15 L.acidop,Daren,Lac,Rha/B.lac,Edmundo [Advanced Probiotic Capsule] 625 mg PO DAILY 06/29 Levothyroxine [Synthroid -] 50 mcg PO DAILY 10/20/15 Linaclotide [Linzess] 145 mcg PO DAILY 10/20/15 Meloxicam [Mobic (Nf) -] 15 mg PO DAILY 10/20/15 Methotrexate [Mexate -] 12.5 mg PO Q7D 10/20/15 Montelukast Na [Singulair -] 10 mg PO DAILY 10/20/15 [place]-3 Fatty Acids [[place]-3] 2 tab PO DAILY 10/20/15 Omeprazole [Prilosec] 40 mg PO DAILY 10/20/15 Sertraline HCl [Zoloft -] 100 mg PO DAILY 10/20/15 Topiramate [Trokendi Xr] 100 mg PO BID 10/20/15 Umeclidinium [place] [Incruse Ellipta] 62.5 mcg IH ASDIR 10/20/15 Insulin (Levemir) [Levemir Vial] 23 units SQ HS #24 ml 02/26/16 Insulin Sliding Scale [Novolog Vial Sliding Scale -] 1 vial SQ ACHS #200 units 02/26/16 Levofloxacin [Levaquin -] 750 mg PO DAILY@0600 #4 tablet 02/26/16 Losartan Potassium [Cozaar -] 75 mg PO DAILY #60 tablet 02/26/16 Prednisone 10 mg PO DAILY #117 tablet 02/26/16 Review of Systems - Review of Systems Able to Perform ROS?: Yes Comments:: 03/03/16 23:08 CONSTITUTIONAL: Absent: fever, chills, diaphoresis, generalized weakness, malaise, loss of appetite HEENT: Absent: rhinorrhea, nasal congestion, throat pain, throat swelling, difficulty swallowing, mouth swelling, ear pain, eye pain, visual Changes CARDIOVASCULAR: +leg swelling, midsternal radiating to left-sided chest pain Absent: syncope, palpitations, irregular heart rate, lightheadedness RESPIRATORY: +productive cough, shortness of breath, dyspnea with exertion, wheezing Absent: orthopnea, stridor, hemoptysis GASTROINTESTINAL: Absent: abdominal pain, abdominal distension, nausea, vomiting, diarrhea, constipation, melena, hematochezia GENITOURINARY: Absent: dysuria, frequency, urgency, hesitancy, hematuria, flank pain, genital pain MUSCULOSKELETAL: Absent: myalgia, arthralgia, joint swelling SKIN: Absent: rash, itching, pallor NEUROLOGIC: Absent: headache, focal weakness or paresthesias, dizziness, unsteady gait, seizure, mental status changes, bladder or bowel incontinence PSYCHIATRIC: Absent: anxiety, depression, suicidal or homicidal ideation, hallucinations. <Francesca Garcia - Last Filed: 03/04/16 00:33> *Physical Exam - Vital Signs Last Vital Signs Temp Pulse Resp BP Pulse Ox 97.4 F L 107 H 18 145/77 99 03/03/16 22:23 03/03/16 22:23 03/03/16 22:23 03/03/16 22:23 03/03/16 22:23 - Physical Exam Comments: 03/03/16 23:08 GENERAL: Well developed, well nourished. Awake and alert. No acute distress. HEENT: Normocephalic, atraumatic. PERRLA, EOMI. No conjunctival pallor. Sclera are non- icteric. Moist mucous membranes. Oropharynx is clear. NECK: Supple. Full ROM. No JVD. Carotid pulses 2+ and symmetric, without bruits. No thyromegaly. No lymphadenopathy. CARDIOVASCULAR: Regular rate and rhythm. No murmurs, rubs, or gallops. Distal pulses are 2+ and symmetric. PULMONARY: No evidence of respiratory distress. Diffuse wheezing throughout all lung griggs. Conversational dyspnea. No accessory muscle use. ABDOMINAL: Soft. Non-tender. Non-distended. No rebound or guarding. No organomegaly. Normoactive bowel sounds. MUSCULOSKELETAL Normal range of motion at all joints. No bony deformities or tenderness. No CVA tenderness. EXTREMITIES: No cyanosis. No clubbing. Bilateral pedal edema. No calf tenderness. SKIN: Warm and dry. Normal capillary refill. No rashes. No jaundice. NEUROLOGICAL: Alert, awake, appropriate. Cranial nerves 2-12 intact. No deficits to light touch and temperature in face, upper extremities and lower extremities. No motor deficits in the in face, upper extremities and lower extremities. Normoreflexic in the upper and lower extremities. PSYCHIATRIC: Cooperative. Good eye contact. Appropriate mood and affect. <Francesca Garcia - Last Filed: 03/04/16 00:33> - Vital Signs Last Vital Signs Temp Pulse Resp BP Pulse Ox 97.4 F L 107 H 18 145/77 99 03/03/16 22:23 03/03/16 22:23 03/03/16 22:23 03/03/16 22:23 03/03/16 22:23 <Carmine Angel - Last Filed: 03/04/16 01:03> Heart Score/ECG Review - ECG Impressions Comment:: 03/04/16 00:33 NSR @84bpm Voltage criteria for left ventricular hypertrophy Abnormal ECG <Francesca Garcia - Last Filed: 03/04/16 00:33> ED Treatment Course - LABORATORY CBC & Chemistry Diagram: 03/03/16 23:30 03/03/16 23:30 <Francesca Garcia - Last Filed: 03/04/16 00:33> - LABORATORY CBC & Chemistry Diagram: 03/03/16 23:30 03/03/16 23:30 <Carmine Angel - Last Filed: 03/04/16 01:03> Medical Decision Making - Medical Decision Making 03/04/16 01:03 Dr. Angel: The scribe's documentation has been prepared under my direction and personally reviewed by me in its entirery. I confirm that the note above accurately reflects all work, treatment, procedures, and medical decision making performed by me. <Carmine Angel - Last Filed: 03/04/16 01:03> *DC/Admit/Observation/Transfer - Attestations Scribe Attestion: 03/03/16 23:08 Documentation prepared by Francesca Garcia, acting as medical territory manager for Carmine Angel MD <Francesca Garcia - Last Filed: 03/04/16 00:33> - Discharge Dispostion Admit: Yes <Carmine Angel - Last Filed: 03/04/16 01:03> Diagnosis at time of Disposition: Shortness of breath Chest pain Qualifiers: Chest pain type: unspecified Qualified Code(s): R07.9 - Chest pain, unspecified COPD (chronic obstructive pulmonary disease) Qualifiers: COPD type: unspecified COPD Qualified Code(s): J44.9 - Chronic obstructive pulmonary disease, unspecified - Discharge Dispostion Condition at time of disposition: Stable - Referrals Referrals: Goran Hernandez MD [Primary Care Provider] -
[2016-03-03] MEDS ORDERED: methylPREDNISolone NA SUCC 125 MG/2 ML VIAL IVPB ONE (23:03)
[2016-03-03] MEDS ORDERED: ALBUTEROL SO4 2.5/IPRATROPIUM 0.5 INH SOL 3 ML VIAL.NEB. NEB ONE ×2 (23:03→23:40)
[2016-03-03] MEDS ORDERED: methylPREDNISolone NA SUCC 125 MG/2 ML VIAL ONE (23:39)
[2016-03-04 00:07] LABS: BASOPHIL 0.7 % (0-2.0); MCH 28.9 pg (25.7-33.7); MCHC 32.1 g/dl (32.0-36.0); MEAN CELL VOLUME 90.2 fl (80-96); MEAN PLT VOLUME 8.1 fl (7.5-11.1); NEUTROPHILS 71.4 % (42.8-82.8); PLATELET COUNT 334 K/MM3 (134-434); RDW 17.1 % (11.6-15.6); WHITE BLOOD COUNT 12.8 K/mm3 (4.0-10.0)
[2016-03-04 00:19] LABS: INR 0.94 (0.82-1.09); PROTHROMBIN TIME (PATIENT) 10.3 SEC (9.98-11.88)
--- NOTE | 2016-03-04 00:28 | EKG ---
Test Reason : Blood Pressure : / mmHG Vent. Rate : 084 BPM Atrial Rate : 084 BPM P-R Int : 160 ms QRS Dur : 070 ms QT Int : 370 ms P-R-T Axes : 037 -17 031 degrees QTc Int : 437 ms POOR DATA QUALITY, INTERPRETATION MAY BE ADVERSELY AFFECTED NORMAL SINUS RHYTHM VOLTAGE CRITERIA FOR LEFT VENTRICULAR HYPERTROPHY ABNORMAL ECG WHEN COMPARED WITH ECG OF 19-FEB-2016 10:18, NO SIGNIFICANT CHANGE WAS FOUND Confirmed by ROSSY RODRIGUES MD ([id number]) on 03/04/2016 12:27:55 AM Referred By: Confirmed By:ROSSY RODRIGUES MD
[2016-03-04 00:36] LABS: ALBUMIN 3.5 g/dl (3.4-5.0); CALCIUM 8.8 mg/dL (8.5-10.1)
[2016-03-04 00:40] LABS: BILIRUBIN,TOTAL 0.1 mg/dL (0.2-1.0); CREATININE 1.1 mg/dL (0.55-1.02); TOT PROT 7.3 g/dl (6.4-8.2)
[2016-03-04 00:42] LABS: TROPONIN I 0.02 ng/ml (0.00-0.05)
[2016-03-04] MEDS ORDERED: ALBUTEROL SO4 2.5/IPRATROPIUM 0.5 INH SOL 3 ML VIAL.NEB. NEB STA (01:03)
[2016-03-04] MEDS ORDERED: ALBUTEROL SO4 2.5/IPRATROPIUM 0.5 INH SOL 3 ML VIAL.NEB. NEB ONE (01:10)
--- NOTE | 2016-03-04 02:20 | PN ---
<Lu Kiser - Last Filed: 03/04/16 04:58> Teaching Attending Note ATTENDING PHYSICIAN STATEMENT I saw and evaluated the patient. I reviewed the resident's note and discussed the case with the resident. I agree with the resident's findings and plan as documented. SUBJECTIVE: 61 yo F presents with worsening left-sided chest pain, SOB, wheezing, and coughing. Patient was seen in the ER on 02/19/16 for SOB, where she was admitted for asthma exacerbation and discharged on 02/26/16 with levaquin and prednisone. Patient reports she completed her steroids with no relief. She describes the chest pain as a tightness that radiates toward the back and rates it a 10/10 which is aggravated while lying down. SOB is slightly alleviated by sitting up and patient notes she uses many pillows to sleep. Patient reports a productive cough with yellow sputum, no blood. She reports left-sided headache. No dizziness or LOC. She notes she uses her inhaler everyday. Patient reports her best peak flow to be 300 of 350. Denies any known triggers at home such as pets , excessive dusts, or tobacco smoke. PMHx: Asthma, lupus, seizure (last 2009), syncope, COPD, sleep apnea on cpap, type 2 DM, hyperlipidemia, hypothyroidism, migraine Allergies: penicillin Social Hx: Former smoker quit 10-15 years ago. Smoked for 20 years 1 pack every other day. Former marijuana and cocaine use. Quit drug use 10-15 years ago. Surgical Hx: Left and right hip replacement. Bilateral knees replacement, s/p cholecystectomy, caesareans x4 OBJECTIVE: Last Vital Signs Temp Pulse Resp BP Pulse Ox 97.4 F L 107 H 18 145/77 99 03/03/16 22:23 03/03/16 22:23 03/03/16 22:23 03/03/16 22:23 03/03/16 22:23 GENERAL: Awake, alert, and fully oriented, in no acute distress HEENT: Atraumatic. PERRLA, EOMI. Moist mucosa. No JVD LUNGS: No distress, speaks full sentences, diffuse wheezing, on repeat eval. wheezing resolved. HEART: Regular rate and rhythm, normal S1 and S2, no murmurs, rubs or gallops, peripheral pulses normal and equal bilaterally. ABDOMEN: Soft, nontender, normoactive bowel sounds. No guarding, no rebound. No masses EXTREMITIES: Normal inspection, Normal range of motion, +1 pitting peripheral edema. No clubbing or cyanosis. NEUROLOGICAL: Cranial nerves II through XII grossly intact. Normal speech, normal gait, no focal sensorimotor deficits SKIN: Warm, Dry, normal turgor, no rashes or lesions noted. CBCD WBC 12.8 K/mm3 (4.0-10.0) H D 03/03/16 23:30 RBC 3.92 M/mm3 (3.60-5.2) 03/03/16 23:30 Hgb 11.4 GM/dL (10.7-15.3) 03/03/16 23:30 Hct 35.4 % (32.4-45.2) 03/03/16 23:30 MCV 90.2 fl (80-96) 03/03/16 23:30 MCHC 32.1 g/dl (32.0-36.0) 03/03/16 23:30 RDW 17.1 % (11.6-15.6) H 03/03/16 23:30 Plt Count 334 K/MM3 (134-434) 03/03/16 23:30 MPV 8.1 fl (7.5-11.1) 03/03/16 23:30 CMP Sodium 145 mmol/L (136-145) 03/03/16 23:30 Potassium 4.5 mmol/L (3.5-5.1) 03/03/16 23:30 Chloride 107 mmol/L (98-107) 03/03/16 23:30 Carbon Dioxide 27 mmol/L (21-32) 03/03/16 23:30 Anion Gap 11 (8-16) 03/03/16 23:30 BUN 26 mg/dL (7-18) H D 03/03/16 23:30 Creatinine 1.1 mg/dL (0.55-1.02) H 03/03/16 23:30 Creat Clearance w eGFR 50.67 (>60) 03/03/16 23:30 Calcium 8.8 mg/dL (8.5-10.1) 03/03/16 23:30 Total Bilirubin 0.1 mg/dL (0.2-1.0) L D 03/03/16 23:30 AST 15 U/L (15-37) 03/03/16 23:30 ALT 41 U/L (12-78) D 03/03/16 23:30 Alkaline Phosphatase 118 U/L (45-117) H 03/03/16 23:30 Total Protein 7.3 g/dl (6.4-8.2) 03/03/16 23:30 Albumin 3.5 g/dl (3.4-5.0) 03/03/16 23:30 ASSESSMENT AND PLAN: 1.) Acute respiratory distress, rule out COPD vs asthma exacerbation -Get ABG, baseline Peak flow -Nebulizations Q6 -Continue steroid taper, currently 30 mg daily for 2 more days -Continue home meds -Cpap at night 2.) Peripheral edema -Lasixs 40 mg daily Documentation prepared by Lu Kiser, acting as medical investigator for Liliana Acuna M.D. <Liliana Acuna - Last Filed: 03/11/16 20:02> Teaching Attending Note Name of Resident: Darby Addison
--- NOTE | 2016-03-04 02:50 | HP ---
CHIEF COMPLAINT: Cough, SOB, wheeze PCP: Dr. Goran Hyde. HISTORY OF PRESENT ILLNESS: 61 year old female presented to the ED with the chief complaints of worsening of cough, SOB and wheeze x 1 week. Patient states that she was admitted on 2016 for AE of Asthma and discharged on 02/26/2016 on Levofloxacin and Prednisone. She says that although she completed full course of the antibiotics , the cough got worse, had production of yellow/whitish sputum, no blood noticed. Cough was associated with SOB and audible wheeze. Patient reports using Albuterol every 6 hours with short term relief. These symptoms were associated with chest tightness, radiating under her right breast and back, aggravated on lying down, relieved on sitting up. Also gives h/o orthopnea but no PND. Uses CPAP at home which helps the breathing. Patient states she cannot sleep for more than 4 hours/night. Denies headache, fever, chills, rigors or sweating. ER course was notable for: (1) CBC, CMP (2) CXR (3) Albuterol, Solumedrol Recent Travel: PAST MEDICAL HISTORY: asthma, lupus, seizure (last 2009), syncope, COPD, sleep apnea on cpap, type 2 DM, hyperlipidemia, hypothyroidism PAST SURGICAL HISTORY: R hip replacement, bilateral knee arthroscopy, bilateral bunionectomy, cholecystectomy. Social History: Smoking: Stopped smoking 20 years ago Alcohol: Quit alcohol 20 years ago Drugs: Previous drug user-cocaine, marijuana but stopped 20 years ago. Family History: Allergies gabapentin [From Neurontin] Allergy (Verified 03/03/16 22:22) PALPITATIONS, PASSES OUT Penicillins Allergy (Verified 03/03/16 22:22) TONGUE Swelling phenytoin sodium [From Dilantin] Allergy (Verified 03/03/16 22:22) diarrhea/vomiting phenytoin sodium extended [From Dilantin] Allergy (Verified 03/03/16 22:22) theophylline [Theophylline] Allergy (Verified 03/03/16 22:22) diarrhea,SEIZURES HOME MEDICATIONS: Have to be verified! Medication Instructions Recorded Albuterol Sulfate Inhaler - 1 - 2 inh PO QID PRN 01/04/13 [Ventolin HFA Inhaler -] Aspirin/Calcium Carbonate/Mag 325 mg PO BID 10/20/15 [Aspirin Buffered 325 mg Tab] Atorvastatin Ca [Lipitor] 10 mg PO DAILY 10/20/15 Biotin [Hard Nails] 5,000 mcg PO DAILY 10/20/15 Budesonide/Formeterol Fumarate 1 inh PO BID 10/20/15 [SYMBICORT 160/4.5mcg -] Carbamazepine Xr [Tegretol XR -] 400 mg PO BID 10/20/15 Folic Acid 2 mg PO DAILY 10/20/15 Hydroxychloroquine Sulfate 200 mg PO BID 10/20/15 [Plaquenil] L.acidop,Daren,Lac,Rha/B.lac,Edmundo 625 mg PO DAILY 10/20/15 [Advanced Probiotic Capsule] Levothyroxine [Synthroid -] 50 mcg PO DAILY 10/20/15 Linaclotide [Linzess] 145 mcg PO DAILY 10/20/15 Meloxicam [Mobic (Nf) -] 15 mg PO DAILY 10/20/15 Methotrexate [Mexate -] 12.5 mg PO Q7D 10/20/15 Montelukast Na [Singulair -] 10 mg PO DAILY 10/20/15 [place]-3 Fatty Acids [[place]-3] 2 tab PO DAILY 10/20/15 Omeprazole [Prilosec] 40 mg PO DAILY 10/20/15 Sertraline HCl [Zoloft -] 100 mg PO DAILY 10/20/15 Topiramate [Trokendi Xr] 100 mg PO BID 10/20/15 Umeclidinium [place] [Incruse 62.5 mcg IH ASDIR 10/20/15 Ellipta] Insulin (Levemir) [Levemir Vial] 23 units SQ HS #24 ml 02/26/16 Insulin Sliding Scale [Novolog 1 vial SQ ACHS #200 units 02/26/16 Vial Sliding Scale -] Levofloxacin [Levaquin -] 750 mg PO DAILY@0600 #4 tablet 02/26/16 Losartan Potassium [Cozaar -] 75 mg PO DAILY #60 tablet 02/26/16 Prednisone 10 mg PO DAILY #117 tablet 02/26/16 REVIEW OF SYSTEMS CONSTITUTIONAL: Absent: fever, chills, diaphoresis, generalized weakness, malaise, loss of appetite, weight change HEENT: Absent: rhinorrhea, nasal congestion, throat pain, throat swelling, difficulty swallowing, mouth swelling, ear pain, eye pain, visual changes CARDIOVASCULAR: Present: Chest tightness + Absent: chest pain, syncope, palpitations, irregular heart rate, lightheadedness , peripheral edema RESPIRATORY: Present: SOB, Cough, Orthopnea, wheezing Absent: dyspnea with exertion, stridor, hemoptysis GASTROINTESTINAL: Absent: abdominal pain, abdominal distension, nausea, vomiting, diarrhea, constipation, melena, hematochezia GENITOURINARY: Absent: dysuria, frequency, urgency, hesitancy, hematuria, flank pain, genital pain MUSCULOSKELETAL: Absent: myalgia, arthralgia, joint swelling, back pain, neck pain SKIN: Absent: rash, itching, pallor HEMATOLOGIC/IMMUNOLOGIC: Absent: easy bleeding, easy bruising, lymphadenopathy, frequent infections ENDOCRINE: Absent: unexplained weight gain, unexplained weight loss, heat intolerance, cold intolerance NEUROLOGIC: Absent: headache, focal weakness or paresthesias, dizziness, unsteady gait, seizure, mental status changes, bladder or bowel incontinence PSYCHIATRIC: Absent: anxiety, depression, suicidal or homicidal ideation, hallucinations. PHYSICAL EXAMINATION GENERAL: Patient sitting comfortably in bed, Awake, alert, and fully oriented, in no acute distress. HEAD: Normal with no signs of trauma. EYES: EOM intact, no pallor or icterus. EARS, NOSE, THROAT: Ears normal. Moist mucous membranes. NECK: Normal range of motion, supple without lymphadenopathy, JVD, or masses. LUNGS: Breath sounds equal, scattered wheeze +, no crackles. HEART: Regular rate and rhythm, normal S1 and S2 without murmur. ABDOMEN: Soft, nontender, not distended, normoactive bowel sounds, no guarding, no rebound, no masses. No hepatomegaly or splenomegaly. MUSCULOSKELETAL: Normal range of motion at all joints. No bony deformities or tenderness. No CVA tenderness. UPPER EXTREMITIES: 2+ pulses, warm, well-perfused. No cyanosis. No clubbing. Cap refill <2 seconds. No peripheral edema. LOWER EXTREMITIES: 2+ pulses, warm, well-perfused. B/L pitting edema with erythema +. NEUROLOGICAL: Cranial nerves II-XII intact. Normal speech. Gait not observed. PSYCHIATRIC: Cooperative. Good eye contact. Appropriate mood and affect. SKIN: Warm, dry, normal turgor, no rashes or lesions noted. ASSESSMENT/PLAN: 61 year old female with significant PMH asthma, lupus, seizure (last 2009), syncope, COPD, sleep apnea on cpap, type 2 DM, hyperlipidemia, hypothyroidism of presented to the ED with the chief complaints of worsening of cough, SOB and wheeze x 1 week, R hip replacement, bilateral knee arthroscopy, bilateral bunionectomy, cholecystectomy. # Acute respiratory distress :Cough/sob/wheeze Most likely due to AE of Asthma, since patient got recently treated with full course of Levofloxacin, new infiltrate less likely Less likely COPD exacerbation PEFR ordered CXR report pending Duoneb treatment Solumedrol 40mg IV Daily. Monitor vitals ABG ordered Continue CPAP Antibiotic most likely will not be required # NAN Slightly elevated creatinine Avoid nephrotoxic drugs. # Type II DM On Insulin Levemir 23 Units HS Insulin sliding scale # Sleep Apnea Continue CPAP # Hyperlipidemia/HTN Continue home meds # Hypothyroidism Continue Levothyroxine # FEN Not on IV fluids Electrolytes to be repeated Diabetic diet # Prophylaxis For DVT- Heparin 5000 u sq For GI- On Omeprazole Illness, Investigation and plan of care explained to the patient. She verbalized understanding. Case discussed with Dr. Acuna. Visit type - Emergency Visit Emergency Visit: Yes ED Registration Date: 03/04/16 Care time: The patient presented to the Emergency Department on the above date and was hospitalized for further evaluation of their emergent condition. - New Patient This patient is new to me today: Yes Date on this admission: 03/04/16 - Critical Care Critical Care patient: No
[2016-03-04] MEDS ORDERED: PATIENT'S OWN MEDICATION (NON-FORMULARY) (Umeclidinium Bromide [Incruse Ellipta] 62.5 MCG) IH SCH (06:00)
[2016-03-04 07:38] LABS: ARTERIAL BLD GAS O2 SATURATION 95.6 % (90-98.9); ARTERIAL BLOOD GAS BASE EXCESS -1.4 meq/l (-2-2); ARTERIAL BLOOD GAS HCO3 22.9 meq/L (22-26); ARTERIAL BLOOD GAS PO2 81.1 mmHg (80-100); ARTERIAL BLOOD GAS pH 7.39 (7.35-7.45)
[2016-03-04 07:39] LABS: ALLENS TEST POSITIVE; ART PUNCT SITE LEFT RADIAL; LPM/O2% ROOM AIR; PT. ON O2? NO
[2016-03-04 08:26] LABS: MCH 28.9 pg (25.7-33.7); MCHC 31.9 g/dl (32.0-36.0); MEAN CELL VOLUME 90.7 fl (80-96); MEAN PLT VOLUME 8.4 fl (7.5-11.1); PLATELET COUNT 292 K/MM3 (134-434); WHITE BLOOD COUNT 12.1 K/mm3 (4.0-10.0)
[2016-03-04] MEDS: LEVOTHYROXINE NA 50 MCG TABLET (FP) PO SCH (08:35)
[2016-03-04] MEDS: INSULIN SLIDING SCALE (NOVOLOG) 1 VIAL SQ SCH ×4 (08:35→22:42)
[2016-03-04] MEDS ORDERED: LEVOTHYROXINE NA 25 MCG TABLET (FP) ONE (08:43)
[2016-03-04] MEDS ORDERED: INSULIN REGULAR HUMAN 100 UNITS/ML *VIAL ONE ×2 (08:43→12:22)
[2016-03-04 09:21] LABS: ALBUMIN 3.3 g/dl (3.4-5.0); CALCIUM 8.4 mg/dL (8.5-10.1)
[2016-03-04 09:25] LABS: BILIRUBIN,TOTAL 0.2 mg/dL (0.2-1.0); CREATININE 1.2 mg/dL (0.55-1.02); TOT PROT 6.8 g/dl (6.4-8.2)
[2016-03-04] MEDS ORDERED: [UNRECOGNIZED DRUG - MIXTURE] PO SCH (10:00)
[2016-03-04] MEDS ORDERED: methylPREDNISolone NA SUCC 40 MG/1 ML VIAL IVPB SCH (10:00)
[2016-03-04] MEDS ORDERED: PATIENT'S OWN MEDICATION (NON-FORMULARY) (Meloxicam 15 MG) PO SCH (10:00)
[2016-03-04] MEDS ORDERED: MONTELUKAST NA 10 MG TABLET PO SCH (10:00)
[2016-03-04] MEDS ORDERED: PATIENT'S OWN MEDICATION (NON-FORMULARY) (Linaclotide [Linzess] 145 MCG) PO SCH (10:00)
[2016-03-04] MEDS ORDERED: BIOTIN 5000 MCG PO SCH (10:00)
[2016-03-04] MEDS ORDERED: PATIENT'S OWN MEDICATION (NON-FORMULARY) (Topiramate [Trokendi Xr] 100 MG) PO SCH (10:00)
[2016-03-04] MEDS ORDERED: carBAMazepine XR 400 MG TAB.ER.12H PO SCH (10:00)
--- NOTE | 2016-03-04 10:28 | PN ---
<ServinJose trujillo - Last Filed: 03/04/16 10:42> Physical Exam: ATTENDING PHYSICIAN STATEMENT I saw and evaluated the patient. I reviewed the resident's note and discussed the case with the resident. I agree with the resident's findings and plan as documented. SUBJECTIVE: seen and evaluated at the bedside OBJECTIVE: minimal to no wheezing on exam, no rhonchi but visible SOB when talking ASSESSMENT AND PLAN: 61 year old female, with a significant past medical history of asthma,slupus, seizure (last 2009), syncope, COPD, sleep apnea on cpap, type 2 DM, hyperlipidemia, hypothyroidism admitted for progressive shortness of breath SOB -pt was recently admitted and treated for asthma exacerbation with steroid taper and levofloxacin -again complaining of SOB but now also chest pain when lying flat that is improved with sitting up -given history of lupus will send for 2D echo to eval for possible effusion (no P-R depressions or diffuse S-T changes on EKG) Asthma -minimal to no wheezing on exam today -prednisone 40 QD to complete taper that patient was discharged on -cont prn nebs -cont symbicort -according to note from private change management lead pt has COPD in addition to Asthma but was not on anticolinergic as an outpatient -start turdoza -follow up consult by private change management lead DM -cont sliding scale insulin -cont Levemir Seizures -cont carbamazapine -cont topiramate DANY -Cpap at night as per private change management lead (pt unaware of settings on home Cpap ) DVT proph -subQ heparin <LiliSuellenNina - Last Filed: 03/04/16 17:02> Physical Exam: SUBJECTIVE: Patient seen and examined Patient resting in bed comfortably, NAD. No acute events. She reports mid sternal chest tightness radiating to her back, alleviated by sitting up and aggravated by lying flat. She also reports SOB, even when she talks, wheezing and baseline orthopnea. She has worsening cough with yellow sputum. She complains of worsening LE edema. She deneis h/a, f/c/, n/v, abd pain, palpitations. OBJECTIVE: Vital Signs Period Temp Pulse Resp BP Sys/Oconnell Pulse Ox Last 24 Hr 98.1 F 75 16 131/58 97 GENERAL: The patient is awake, alert, and fully oriented, in mild distress. HEAD: Normal with no signs of trauma. EYES: PERRL, extraocular movements intact, sclera anicteric, conjunctiva clear. No ptosis. ENT: moist mucous membranes. NECK: supple, no JVD LUNGS: diffuse wheezing, restricted air movement HEART: tachy rate and reg rhythm, S1, S2 ABDOMEN: Soft, nontender, nondistended, normoactive bowel sounds EXTREMITIES: 2+ pulses, warm, well-perfused, legs obese, no pitting. NEUROLOGICAL: Cranial nerves II through XII grossly intact. Normal speech, gait not observed. PSYCH: Normal mood, normal affect. SKIN: Warm, dry Laboratory Results - last 24 hr 03/04/16 03/04/16 03/04/16 06:20 06:20 07:27 WBC 12.1 H RBC 3.69 Hgb 10.7 Hct 33.4 MCV 90.7 MCHC 31.9 L RDW 17.0 H Plt Count 292 MPV 8.4 Puncture Site Left radial ABG pH 7.39 ABG pCO2 at Pt Temp 39.1 ABG pO2 at Pt Temp 81.1 ABG HCO3 22.9 ABG O2 Sat (Measured) 95.6 ABG O2 Content 14.2 L ABG Base Excess -1.4 Luis Test Positive Oxygen Flow Rate Room air PEEP 0.0 Sodium 139 Potassium 4.5 Chloride 105 Carbon Dioxide 22 Anion Gap 12 BUN 25 H Creatinine 1.2 H Creat Clearance w eGFR 45.83 POC Glucometer Random Glucose 313 H* D Calcium 8.4 L Total Bilirubin 0.2 D AST 13 L ALT 37 Alkaline Phosphatase 123 H Total Protein 6.8 Albumin 3.3 L 03/04/16 08:20 WBC RBC Hgb Hct MCV MCHC RDW Plt Count MPV Puncture Site ABG pH ABG pCO2 at Pt Temp ABG pO2 at Pt Temp ABG HCO3 ABG O2 Sat (Measured) ABG O2 Content ABG Base Excess Luis Test Oxygen Flow Rate PEEP Sodium Potassium Chloride Carbon Dioxide Anion Gap BUN Creatinine Creat Clearance w eGFR POC Glucometer [phone] Random Glucose Calcium Total Bilirubin AST ALT Alkaline Phosphatase Total Protein Albumin Active Medications Generic Name Dose Route Start Last Admin Trade Name Freq PRN Reason Stop Dose Admin Albuterol/Ipratropium 1 amp 03/04/16 02:57 Duoneb - NEB Q6H PRN SHORTNESS OF BREATH Atorvastatin Calcium 10 mg 03/04/16 22:00 Lipitor - PO HS [facility] Budesonide/Formoterol Fumarate 1 puff 03/04/16 10:00 Symbicort 160/4.5mcg - IH BID [facility] Carbamazepine 400 mg 03/04/16 10:00 Tegretol Xr - PO BID [facility] Folic Acid 2 mg 03/04/16 10:00 Folic Acid - PO DAILY [facility] Hydroxychloroquine Sulfate 200 mg 03/04/16 10:00 Plaquenil - PO BID [facility] Insulin Aspart 1 vial 03/04/16 07:00 03/04/16 08:35 Novolog Vial Sliding Scale - SQ 6 units ACHS [facility] Administration Protocol Insulin Detemir 23 units 03/04/16 22:00 Levemir Vial SQ HS [facility] Levothyroxine Sodium 50 mcg 03/04/16 07:00 03/04/16 08:35 Synthroid - PO 50 mcg AM [facility] Administration Losartan Potassium 75 mg 03/04/16 10:00 Cozaar - PO DAILY [facility] Methotrexate 12.5 mg 03/04/16 06:00 Mexate - PO Q7D [facility] Methylprednisolone Sodium Succinate 40 mg 03/04/16 10:00 Solu-Medrol - IVPB DAILY [facility] Montelukast Sodium 10 mg 03/04/16 10:00 Singulair - PO DAILY [facility] Non-Formulary Medication 325 mg 03/04/16 10:00 Aspirin/Calcium Carbonate/Mag [Aspirin Buffered 325 Mg Tab] PO BID [facility] Non-Formulary Medication 5,000 mcg 03/04/16 10:00 Biotin [Hard Nails] PO DAILY [facility] Non-Formulary Medication 625 mg 03/04/16 10:00 L.Acidop,Daren,Lac,Rha/B.Lac,Edmundo [Advanced Probiotic Capsule] PO DAILY [facility] Non-Formulary Medication 145 mcg 03/04/16 10:00 Linaclotide [Linzess] PO DAILY [facility] Non-Formulary Medication 15 mg 03/04/16 10:00 Meloxicam PO DAILY [facility] Non-Formulary Medication 100 mg 03/04/16 10:00 Topiramate [Trokendi Xr] PO BID [facility] Non-Formulary Medication 62.5 mcg 03/04/16 06:00 Umeclidinium [facility] [Incruse Ellipta] IH ASDIR [facility] Mtols-6-Sypm Ethyl Esters 2 gm 03/04/16 10:00 Lovaza - PO DAILY [facility] Pantoprazole Sodium 40 mg 03/04/16 10:00 Protonix - PO DAILY [facility] Sertraline HCl 100 mg 03/04/16 10:00 Zoloft - PO DAILY [facility] ASSESSMENT/PLAN: This is a 61 yo F with PMH of asthma, COPD, sleep apnea on cpap, lupus, seizure (last 2009), type 2 DM, HLD and hypothyroidism, who presented to the ED with the chief complaints of worsening of cough, SOB and wheeze x 1 week. Recent hospitalization for COPD exacerbation s/p abx treatment and steroids Acute respiratory distress due to Asthma exacerbation vs Lupus pericarditis -less likely COPD exacerbation in light of recent abx therapy, absence of leukocytosis and fever. -CXR unremarkable -abg mild hypoxia -TTE to r/o pericarditis -duonebs q6h prn -singulair, symbicort -Solumedrol 40mg IV Daily. -abx not indicated -CPAP at night -supplemental O2 prn NC CKD -creat 1.1, lower than last admission IDDM2 -Levemir 23 Units HS -Insulin sliding scale Sleep Apnea -Continue CPAP Hyperlipidemia/HTN -statin -losartan, HCTZ Hypothyroidism -Continue Levothyroxine Lupus -weekly methotrexate depression -zoloft FEN no IVF lytes stable DVT GI PPX: SCD, ppi diabetic diet [place] [facility] [place] List - Problems (1) COPD (chronic obstructive pulmonary disease) Code(s): J44.9 - CHRONIC OBSTRUCTIVE PULMONARY DISEASE, UNSPECIFIED Qualifiers : COPD type: unspecified COPD Qualified Code(s): J44.9 - Chronic obstructive pulmonary disease, unspecified (2) Shortness of breath Code(s): R06.02 - SHORTNESS OF BREATH (3) Chest pain Code(s): R07.9 - CHEST PAIN, UNSPECIFIED Qualifiers: Chest pain type: unspecified Qualified Code(s): R07.9 - Chest pain, unspecified (4) Asthma exacerbation Code(s): J45.901 - UNSPECIFIED ASTHMA WITH (ACUTE) EXACERBATION (5) CHF (congestive heart failure) Code(s): I50.9 - HEART FAILURE, UNSPECIFIED (6) CKD (chronic kidney disease) stage 3, GFR 30-59 ml/min Code(s): N18.3 - CHRONIC KIDNEY DISEASE, STAGE 3 (MODERATE) (7) Hypertension Code(s): I10 - ESSENTIAL (PRIMARY) HYPERTENSION Qualifiers: Hypertension type: essential hypertension Qualified Code(s): I10 - Essential (primary) hypertension (8) Hypothyroidism Code(s): E03.9 - HYPOTHYROIDISM, UNSPECIFIED Qualifiers: Hypothyroidism type: unspecified Qualified Code(s): E03.9 - Hypothyroidism, unspecified (9) SLE (systemic lupus erythematosus) Code(s): M32.9 - SYSTEMIC LUPUS ERYTHEMATOSUS, UNSPECIFIED (10) Sleep apnea, obstructive Code(s): G47.33 - OBSTRUCTIVE SLEEP APNEA (ADULT) (PEDIATRIC) (11) Type 2 diabetes mellitus Code(s): E11.9 - TYPE 2 DIABETES MELLITUS WITHOUT COMPLICATIONS Qualifiers: Diabetes mellitus complication status: with kidney complications Diabetes mellitus complication detail: with chronic kidney disease Chronic kidney disease stage: stage 3 (moderate) Qualified Code(s): E11.22 - Type 2 diabetes mellitus with diabetic chronic kidney disease; N18.1 - Chronic kidney disease, stage 1; Z79.4 - continuous churn buttermaker (current) use of insulin (12) Atypical chest pain Code(s): R07.89 - OTHER CHEST PAIN (13) Morbid obesity Code(s): E66.01 - MORBID (SEVERE) OBESITY DUE TO EXCESS CALORIES (14) Seizure disorder Code(s): G40.909 - EPILEPSY, UNSP, NOT INTRACTABLE, WITHOUT STATUS EPILEPTICUS Visit type - Emergency Visit Emergency Visit: Yes ED Registration Date: 03/04/16 Care time: The patient presented to the Emergency Department on the above date and was hospitalized for further evaluation of their emergent condition. - New Patient This patient is new to me today: Yes Date on this admission: 03/04/16 - Critical Care Critical Care patient: No - Discharge Referral Referred to [facility] No
[2016-03-04] MEDS ORDERED: LOSARTAN POTASSIUM 25 MG TABLET ONE ×2 (12:20→12:23)
[2016-03-04] MEDS ORDERED: SERTRALINE HCL 50 MG TABLET (FP) ONE (12:20)
[2016-03-04] MEDS ORDERED: PANTOPRAZOLE 40 MG TABLET (FP) ONE (12:20)
[2016-03-04] MEDS ORDERED: FOLIC ACID 1 MG TABLET (FP) ONE (12:20)
[2016-03-04] MEDS ORDERED: methylPREDNISolone NA SUCC 40 MG/1 ML VIAL ONE (12:21)
[2016-03-04] MEDS ORDERED: MONTELUKAST NA 10 MG TABLET ONE (12:21)
[2016-03-04] MEDS: FOLIC ACID 1 MG TABLET (FP) PO SCH (12:26)
[2016-03-04] MEDS: SERTRALINE HCL 50 MG TABLET (FP) PO SCH (12:26)
[2016-03-04] MEDS: LOSARTAN POTASSIUM 25 MG TABLET PO SCH (12:26)
[2016-03-04] MEDS: methylPREDNISolone NA SUCC 40 MG/1 ML VIAL IVPB SCH (12:26)
[2016-03-04] MEDS: PANTOPRAZOLE 40 MG TABLET (FP) PO SCH (12:26)
[2016-03-04] MEDS: HYDROXYCHLOROQUINE SO4 200 MG TABLET (FP) PO SCH ×2 (13:42→22:22)
[2016-03-04] MEDS: OMEGA-3 ACID ETHYL ESTERS (FATTY-ACIDS) 1 GM CAPSULE (FP) PO SCH (13:42)
[2016-03-04] MEDS: BUDESONIDE/FORMETEROL FUMARATE 160/4.5 mcg INHALER IH SCH ×2 (14:30→22:29)
[2016-03-04 14:37] VITALS: BMI 48.4
[2016-03-04] MEDS ORDERED: METHOTREXATE 2.5 MG TABLET PO SCH (16:45)
[2016-03-04] MEDS ORDERED: PT OWN MED DRAWER 7, Y5N ONE ×2 (17:35→22:19)
[2016-03-04] MEDS: ALBUTEROL SO4 2.5/IPRATROPIUM 0.5 INH SOL 3 ML VIAL.NEB. NEB PRN ×2 (19:06→22:30)
[2016-03-04] MEDS: MONTELUKAST NA 10 MG TABLET PO SCH (22:22)
[2016-03-04] MEDS: ATORVASTATIN CA 10 MG TABLET (FP) PO SCH (22:22)
[2016-03-04] MEDS: carBAMazepine XR 200 MG TAB.ER.12H PO SCH (22:25)
[2016-03-04] MEDS: INSULIN DETEMIR 100 UNITS/ML MDV SQ SCH (22:40)
[2016-03-05] MEDS: LEVOTHYROXINE NA 50 MCG TABLET (FP) PO SCH (06:38)
[2016-03-05 09:07] LABS: CREATININE 1.1 mg/dL (0.55-1.02); MAGNESIUM 2.2 mg/dL (1.8-2.4); PHOSPHOROUS 4.4 mg/dL (2.5-4.9)
[2016-03-05] MEDS: BUDESONIDE/FORMETEROL FUMARATE 160/4.5 mcg INHALER IH SCH ×2 (09:28→21:50)
[2016-03-05] MEDS: PANTOPRAZOLE 40 MG TABLET (FP) PO SCH (09:29)
[2016-03-05] MEDS: SERTRALINE HCL 50 MG TABLET (FP) PO SCH (09:29)
[2016-03-05] MEDS: LOSARTAN POTASSIUM 25 MG TABLET PO SCH (09:29)
[2016-03-05] MEDS: ASPIRIN COATED 81 MG TABLET.EC PO SCH (09:30)
[2016-03-05] MEDS: FOLIC ACID 1 MG TABLET (FP) PO SCH (09:30)
[2016-03-05] MEDS: OMEGA-3 ACID ETHYL ESTERS (FATTY-ACIDS) 1 GM CAPSULE (FP) PO SCH (09:30)
[2016-03-05] MEDS: HYDROXYCHLOROQUINE SO4 200 MG TABLET (FP) PO SCH ×2 (09:31→21:41)
[2016-03-05] MEDS: carBAMazepine XR 200 MG TAB.ER.12H PO SCH ×2 (09:31→21:42)
[2016-03-05] MEDS: methylPREDNISolone NA SUCC 40 MG/1 ML VIAL IVPB SCH ×2 (10:02→12:59)
[2016-03-05] MEDS: ALBUTEROL SO4 2.5/IPRATROPIUM 0.5 INH SOL 3 ML VIAL.NEB. NEB PRN (11:15)
--- NOTE | 2016-03-05 11:27 | PN ---
<Jose Servin - Last Filed: 03/05/16 15:01> Physical Exam: ATTENDING PHYSICIAN STATEMENT I saw and evaluated the patient. I reviewed the resident's note and discussed the case with the resident. I agree with the resident's findings and plan as documented. SUBJECTIVE: seen and evaluated at the bedside OBJECTIVE: minimal to no wheezing on exam, no rhonchi but visible SOB when talking ASSESSMENT AND PLAN: 61 year old female, with a significant past medical history of asthma,slupus, seizure (last 2009), syncope, COPD, sleep apnea on cpap, type 2 DM, hyperlipidemia, hypothyroidism admitted for progressive shortness of breath SOB -pt was recently admitted and treated for asthma exacerbation with steroid taper and levofloxacin -again complaining of SOB but now also chest pain when lying flat that is improved with sitting up -given history of lupus and recent URI pt was sent for 2D echo and has small effusion -follow up ESR and CRP Asthma -minimal to no wheezing on exam today -prednisone 40 QD to complete taper that patient was discharged on -cont prn nebs -cont symbicort -according to note from private teaching manager pt has COPD in addition to Asthma but was not on anticolinergic as an outpatient -start turdoza -follow up consult by private teaching manager DM -cont sliding scale insulin -cont Levemir Seizures -cont carbamazapine -cont topiramate DANY -Cpap at night as per private teaching manager (pt unaware of settings on home Cpap ) DVT proph -subQ heparin <Nina Pearson - Last Filed: 03/05/16 15:22> Physical Exam: SUBJECTIVE: Patient seen and examined Patient resting in bed comfortably, NAD. No acute events. She reports no alleviation in sternal chest tightness, SOB or cough with yellow sputum. She has not ambulaated outside of going to the bathroom. She deneis h/a, f/c/, n/v, abd pain, palpitations. OBJECTIVE: Vital Signs Period Temp Pulse Resp BP Sys/Oconnell Pulse Ox Last 24 Hr 97.8 F-98.9 F 70-88 16-20 136-156/63-80 97 GENERAL: The patient is awake, alert, and fully oriented, in mild distress. HEAD: Normal with no signs of trauma. EYES: PERRL, extraocular movements intact, sclera anicteric, conjunctiva clear. No ptosis. ENT: moist mucous membranes. NECK: supple, no JVD LUNGS: diffuse wheezing, restricted air movement HEART: tachy rate and reg rhythm, S1, S2 ABDOMEN: Soft, nontender, nondistended, normoactive bowel sounds EXTREMITIES: 2+ pulses, warm, well-perfused, legs obese, no pitting. NEUROLOGICAL: Cranial nerves II through XII grossly intact. Normal speech, gait not observed. PSYCH: Normal mood, normal affect. SKIN: Warm, dry Laboratory Results - last 24 hr 03/04/16 03/04/16 03/05/16 17:17 22:30 01:48 Sodium Potassium Chloride Carbon Dioxide Anion Gap BUN Creatinine POC Glucometer 262 219 142 Random Glucose Calcium Phosphorus Magnesium 03/05/16 03/05/16 03/05/16 06:03 08:45 10:59 Sodium 143 Potassium 4.3 Chloride 103 Carbon Dioxide 27 D Anion Gap 13 BUN 20 H Creatinine 1.1 H POC Glucometer 147 226 Random Glucose 125 H D Calcium 9.0 Phosphorus 4.4 Magnesium 2.2 Active Medications Generic Name Dose Route Start Last Admin Trade Name Freq PRN Reason Stop Dose Admin Albuterol/Ipratropium 1 amp 03/04/16 02:57 03/04/16 22:30 Duoneb - NEB 1 amp Q6H PRN Administration SHORTNESS OF BREATH Aspirin 81 mg 03/05/16 10:00 03/05/16 09:30 Ecotrin - PO 81 mg DAILY [facility] Administration Atorvastatin Calcium 10 mg 03/04/16 22:00 03/04/16 22:22 Lipitor - PO 10 mg HS [facility] Administration Budesonide/Formoterol Fumarate 1 puff 03/04/16 10:00 03/05/16 09:28 Symbicort 160/4.5mcg - IH 1 puff BID [facility] Administration Carbamazepine 400 mg 03/04/16 22:00 03/05/16 09:31 Tegretol Xr - PO 400 mg BID [facility] Administration Enoxaparin Sodium 40 mg 03/05/16 11:30 Lovenox - SQ DAILY [facility] Folic Acid 2 mg 03/04/16 10:00 03/05/16 09:30 Folic Acid - PO 2 mg DAILY [facility] Administration Hydroxychloroquine Sulfate 200 mg 03/04/16 10:00 03/05/16 09:31 Plaquenil - PO 200 mg BID [facility] Administration Insulin Aspart 1 vial 03/04/16 07:00 03/04/16 22:42 Novolog Vial Sliding Scale - SQ 4 units ACHS [facility] Administration Protocol Insulin Detemir 23 units 03/04/16 22:00 03/04/16 22:40 Levemir Vial SQ 23 units HS [facility] Administration Levothyroxine Sodium 50 mcg 03/04/16 07:00 03/05/16 06:38 Synthroid - PO 50 mcg AM [facility] Administration Losartan Potassium 75 mg 03/04/16 10:00 03/05/16 09:29 Cozaar - PO 75 mg DAILY [facility] Administration Methotrexate 12.5 mg 03/04/16 16:45 03/04/16 22:22 Mexate - PO 12.5 mg Th@1000 [facility] Administration Methylprednisolone Sodium Succinate 40 mg 03/04/16 10:00 03/04/16 12:26 Solu-Medrol - IVPB 40 mg DAILY [facility] Administration Montelukast Sodium 10 mg 03/04/16 22:00 03/04/16 22:22 Singulair - PO 10 mg HS [facility] Administration Msmyt-0-[facility] Ethyl Esters 2 gm 03/04/16 10:00 03/05/16 09:30 Lovaza - PO 2 gm DAILY [facility] Administration Pantoprazole Sodium 40 mg 03/04/16 10:00 03/05/16 09:29 Protonix - PO 40 mg DAILY [facility] Administration Sertraline HCl 100 mg 03/04/16 10:00 03/05/16 09:29 Zoloft - PO 100 mg DAILY [facility] Administration ASSESSMENT/PLAN: This is a 61 yo F with PMH of asthma, COPD, sleep apnea on cpap, lupus, seizure (last 2009), type 2 DM, HLD and hypothyroidism, who presented to the ED with the chief complaints of worsening of cough, SOB and wheeze x 1 week. Recent hospitalization for COPD exacerbation s/p abx treatment and steroids Acute respiratory distress due to Asthma exacerbation vs Lupus pericarditis -less likely COPD exacerbation in light of recent abx therapy, absence of leukocytosis and fever. -CXR unremarkable -abg mild hypoxia -TTE mild pericardial effusion -CRP, ESR -duonebs q6h prn -singulair, symbicort -Solumedrol 40mg IV Daily. -trudoza -abx not indicated -CPAP at night -supplemental O2 prn NC -consider pulm rehab -f/u dr Vega -possible rheumatology consult CKD -creat 1.1, lower than last admission IDDM2 -Levemir 23 Units HS -Insulin sliding scale Sleep Apnea -Continue CPAP Hyperlipidemia/HTN -statin -losartan, HCTZ Hypothyroidism -Continue Levothyroxine Lupus -weekly methotrexate depression -zoloft FEN no IVF lytes stable DVT GI PPX: SCD, shawn, ppi diabetic diet [place] [facility] [place] - Problems (1) COPD (chronic obstructive pulmonary disease) Code(s): J44.9 - CHRONIC OBSTRUCTIVE PULMONARY DISEASE, UNSPECIFIED Qualifiers : COPD type: unspecified COPD Qualified Code(s): J44.9 - Chronic obstructive pulmonary disease, unspecified (2) Shortness of breath Code(s): R06.02 - SHORTNESS OF BREATH (3) Chest pain Code(s): R07.9 - CHEST PAIN, UNSPECIFIED Qualifiers: Chest pain type: unspecified Qualified Code(s): R07.9 - Chest pain, unspecified (4) Asthma exacerbation Code(s): J45.901 - UNSPECIFIED ASTHMA WITH (ACUTE) EXACERBATION (5) CHF (congestive heart failure) Code(s): I50.9 - HEART FAILURE, UNSPECIFIED (6) CKD (chronic kidney disease) stage 3, GFR 30-59 ml/min Code(s): N18.3 - CHRONIC KIDNEY DISEASE, STAGE 3 (MODERATE) (7) Hypertension Code(s): I10 - ESSENTIAL (PRIMARY) HYPERTENSION Qualifiers: Hypertension type: essential hypertension Qualified Code(s): I10 - Essential (primary) hypertension (8) Hypothyroidism Code(s): E03.9 - HYPOTHYROIDISM, UNSPECIFIED Qualifiers: Hypothyroidism type: unspecified Qualified Code(s): E03.9 - Hypothyroidism, unspecified (9) SLE (systemic lupus erythematosus) Code(s): M32.9 - SYSTEMIC LUPUS ERYTHEMATOSUS, UNSPECIFIED (10) Sleep apnea, obstructive Code(s): G47.33 - OBSTRUCTIVE SLEEP APNEA (ADULT) (PEDIATRIC) (11) Type 2 diabetes mellitus Code(s): E11.9 - TYPE 2 DIABETES MELLITUS WITHOUT COMPLICATIONS Qualifiers: Diabetes mellitus complication status: with kidney complications Diabetes mellitus complication detail: with chronic kidney disease Chronic kidney disease stage: stage 3 (moderate) (12) Atypical chest pain Code(s): R07.89 - OTHER CHEST PAIN (13) Morbid obesity Code(s): E66.01 - MORBID (SEVERE) OBESITY DUE TO EXCESS CALORIES (14) Seizure disorder Code(s): G40.909 - EPILEPSY, UNSP, NOT INTRACTABLE, WITHOUT STATUS EPILEPTICUS (15) Lupus pericarditis Code(s): M32.12 - PERICARDITIS IN SYSTEMIC LUPUS ERYTHEMATOSUS Visit type - Emergency Visit Emergency Visit: Yes ED Registration Date: 03/04/16 Care time: The patient presented to the Emergency Department on the above date and was hospitalized for further evaluation of their emergent condition. - New Patient This patient is new to me today: No - Critical Care Critical Care patient: No - Discharge Referral Referred to [facility] No
[2016-03-05] MEDS: INSULIN SLIDING SCALE (NOVOLOG) 1 VIAL SQ SCH ×3 (11:57→21:49)
[2016-03-05] MEDS ORDERED: ACLIDINIUM BROMIDE 400 MCG/INH AERO.POWD IH SCH (12:45)
[2016-03-05] MEDS: ENOXAPARIN NA (PORCINE) 40 MG/0.4 ML DISP.SYRIN SQ SCH (13:32)
--- NOTE | 2016-03-05 16:05 | CON.PULM ---
Consult Consult Specialty:: PULMONARY Referred by:: FORTINO Reason for Consultation:: SOB - History of Present Illness Chief Complaint: SOB History of Present Illness: The patient is a 61 year old female with significant past medical history of Asthma, lupus, seizure (last 2009), syncope, COPD, sleep apnea on cpap, type 2 DM, hyperlipidemia, hypothyroidism who presents to the ED with worsening SOB, wheezing, and coughing. Patient was seen in the ER on 02/18 for worsening SOB, where she was admitted for asthma exacerbation and discharged on 02/25 with levaquin and prednisone. She returns today for worsening SOB and productive cough with phlegm. Patient reports she completed the full course of levaquin and is currently taking the prednisone with no improvement. She reports worsening dyspnea on exertion and increase leg swelling. She also has complaints of mid sternal radiating to left sided chest pain, which has been on going for the past 2-3 weeks. Patient denies diaphoresis, shoulder pain, arm pain, jaw pain, nausea, and vomiting. 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 No: Alzheimer's Cardio/Vascular: No: AFIB Pulmonary: Yes: Asthma Gastrointestinal: No: Ascites Hepatobiliary: No: Cirrhosis Renal/: No: Renal Failure Reproductive: Yes: Postmenopausal ...LMP: 03/18/01 ...: No Heme/Onc: No: Anemia Infectious Disease: Yes: AIDS Psych: No: Addictions Rheumatology: Yes: Lupus Endocrine: Yes: Diabetes Mellitus - Past Surgical History Past Surgical History: Yes: Cataract Removal, Cholecystectomy, Joint Replacement (Right total hip replacement), Tonsillectomy - Alcohol/Substance Use Hx Alcohol Use: No History of Substance Use: reports: None - Smoking History Smoking history: Former smoker Have you smoked in the past 12 months: No Aproximately how many cigarettes per day: 0 If you are a former smoker, when did you quit?: 2004 - Social History ADL: Independent Place of : [facility] History of Recent Travel: No Home Medications - Allergies Allergies/Adverse Reactions: Allergies Allergy/AdvReac Type Severity Reaction Status Date / Time gabapentin [From Neurontin] Allergy PALPITATIONS, Verified 03/03/16 22:22 PASSES OUT Penicillins Allergy TONGUE Verified 03/03/16 22:22 Swelling phenytoin sodium Allergy diarrhea/vo Verified 03/03/16 22:22 [From Dilantin] miting phenytoin sodium extended Allergy Verified 03/03/16 22:22 [From Dilantin] theophylline [Theophylline] Allergy diarrhea,SE Verified 03/03/16 22:22 IZURES - Home Medications Home Medications: Ambulatory Orders Albuterol Sulfate Inhaler - [Ventolin HFA Inhaler -] 1 - 2 inh PO QID PRN Aspirin/Calcium Carbonate/Mag [Aspirin Buffered 325 mg Tab] 325 mg PO BID Atorvastatin Ca [Lipitor] 10 mg PO DAILY 10/20/15 Biotin [Hard Nails] 5,000 mcg PO DAILY 10/20/15 Budesonide/Formeterol Fumarate [SYMBICORT 160/4.5mcg -] 1 inh PO BID 10/20/15 Carbamazepine Xr [Tegretol XR -] 400 mg PO BID 10/20/15 Folic Acid 2 mg PO DAILY 10/20/15 Hydroxychloroquine Sulfate [Plaquenil] 200 mg PO BID 10/20/15 L.acidop,Daren,Lac,Rha/B.lac,Edmundo [Advanced Probiotic Capsule] 625 mg PO DAILY 06/29 Levothyroxine [Synthroid -] 50 mcg PO DAILY 10/20/15 Linaclotide [Linzess] 145 mcg PO DAILY 10/20/15 Meloxicam [Mobic (Nf) -] 15 mg PO DAILY 10/20/15 Methotrexate [Mexate -] 12.5 mg PO Q7D 10/20/15 Montelukast Na [Singulair -] 10 mg PO DAILY 10/20/15 Ionia-3 Fatty Acids [Ionia-3] 2 tab PO DAILY 10/20/15 Omeprazole [Prilosec] 40 mg PO DAILY 10/20/15 Sertraline HCl [Zoloft -] 100 mg PO DAILY 10/20/15 Topiramate [Trokendi Xr] 100 mg PO BID 10/20/15 Umeclidinium Elgin [Incruse Ellipta] 62.5 mcg IH ASDIR 10/20/15 Insulin (Levemir) [Levemir Vial] 23 units SQ HS #24 ml 02/26/16 Insulin Sliding Scale [Novolog Vial Sliding Scale -] 1 vial SQ ACHS #200 units 02/26/16 Levofloxacin [Levaquin -] 750 mg PO DAILY@0600 #4 tablet 02/26/16 Losartan Potassium [Cozaar -] 75 mg PO DAILY #60 tablet 02/26/16 Prednisone 10 mg PO DAILY #117 tablet 02/26/16 Family Disease History - Family Disease History Family History: Unremarkable Review of Systems - Review of Systems Constitutional: denies: Fever Eyes: denies: Blurred Vision HENT: denies: Difficult Swallowing Neck: denies: Decreased ROM Cardiovascular: reports: Chest Pain Respiratory: reports: Cough, Exercise Intolerance, SOB, SOB on Exertion, Wheezing. denies: Hemoptysis Gastrointestinal: denies: Abdominal Pain Genitourinary: denies: Burning Physical Exam Vital Sings: Vital Signs Temperature 98.3 F 03/05/16 14:23 Pulse Rate 85 03/05/16 14:23 Respiratory Rate 21 03/05/16 14:23 Blood Pressure 132/59 03/05/16 14:23 O2 Sat by Pulse Oximetry (%) 96 03/05/16 10:45 Constitutional: Yes: Calm Eyes: Yes: EOM Intact HENT: Yes: Normocephalic Neck: Yes: Trachea Midline Cardiovascular: Yes: Regular Rate and Rhythm Respiratory: Yes: Diminished Gastrointestinal: Yes: Normal Bowel Sounds, Abdomen, Obese Edema: LLE: 1+, RLE: 1+ Labs: CBC, BMP 03/05/16 08:45 ABG Results ABG pH 7.39 (7.35-7.45) 03/04/16 07:27 ABG pCO2 at Pt Temp 39.1 mmHg (35-45) 03/04/16 07:27 ABG pO2 at Pt Temp 81.1 mmHg (80-100) 03/04/16 07:27 ABG HCO3 22.9 meq/L (22-26) 03/04/16 07:27 ABG O2 Sat (Measured) 95.6 % (90-98.9) 03/04/16 07:27 ABG O2 Content 14.2 % vol (15-22) L 03/04/16 07:27 ABG Base Excess -1.4 meq/l (-2-2) 03/04/16 07:27 REST REVIEWED Imaging - Results Chest X-ray: Image Reviewed EKG: Report Reviewed Problem List - Problems (1) COPD (chronic obstructive pulmonary disease) Code(s): J44.9 - CHRONIC OBSTRUCTIVE PULMONARY DISEASE, UNSPECIFIED Qualifiers : COPD type: unspecified COPD Qualified Code(s): J44.9 - Chronic obstructive pulmonary disease, unspecified (2) Shortness of breath Code(s): R06.02 - SHORTNESS OF BREATH (3) Chest pain Code(s): R07.9 - CHEST PAIN, UNSPECIFIED Qualifiers: Chest pain type: unspecified Qualified Code(s): R07.9 - Chest pain, unspecified (4) Acute exacerbation of chronic obstructive pulmonary disease (COPD) Code(s): J44.1 - CHRONIC OBSTRUCTIVE PULMONARY DISEASE W (ACUTE) EXACERBATION (5) Asthma exacerbation Code(s): J45.901 - UNSPECIFIED ASTHMA WITH (ACUTE) EXACERBATION (6) CKD (chronic kidney disease) stage 3, GFR 30-59 ml/min Code(s): N18.3 - CHRONIC KIDNEY DISEASE, STAGE 3 (MODERATE) (7) SLE (systemic lupus erythematosus) Code(s): M32.9 - SYSTEMIC LUPUS ERYTHEMATOSUS, UNSPECIFIED (8) Seizure activity as manifestation of blood transfusion reaction Code(s): R56.9 - UNSPECIFIED CONVULSIONS T80.89XA - OTH COMP FOL INFUSION, TRANSFUSE AND THERAPUTC INJECT, INIT Y84.8 - OTH MEDICAL PROCEDURES CAUSE ABN REACT/COMPL, W/O MISADVNT (9) Seizure Code(s): R56.9 - UNSPECIFIED CONVULSIONS Assessment/Plan AGREE WITH IVPB STEROIDS/BRONCHODILATORS/O2 SUPPLEMENTATION/SINGULAIR CONTINUATION OF HOME MEDS NASAL SWAB FOR INFLUENZA DVT PROPHYLAXSIS DAILY PEAK FLOW
[2016-03-05] MEDS: ALBUTEROL SO4 2.5/IPRATROPIUM 0.5 INH SOL 3 ML VIAL.NEB. NEB SCH ×2 (17:20→23:17)
[2016-03-05] MEDS ORDERED: PT OWN MED DRAWER 7, Y5N ONE (21:13)
[2016-03-05] MEDS: MONTELUKAST NA 10 MG TABLET PO SCH (21:41)
[2016-03-05] MEDS: ATORVASTATIN CA 10 MG TABLET (FP) PO SCH (21:41)
[2016-03-05] MEDS: INSULIN DETEMIR 100 UNITS/ML MDV SQ SCH (21:49)
[2016-03-06] MEDS: ALBUTEROL SO4 2.5/IPRATROPIUM 0.5 INH SOL 3 ML VIAL.NEB. NEB SCH ×3 (06:25→18:45)
[2016-03-06] MEDS: LEVOTHYROXINE NA 50 MCG TABLET (FP) PO SCH (06:33)
[2016-03-06] MEDS: INSULIN SLIDING SCALE (NOVOLOG) 1 VIAL SQ SCH ×5 (06:34→23:19)
[2016-03-06 09:57] LABS: MCH 29.2 pg (25.7-33.7); MCHC 32.6 g/dl (32.0-36.0); MEAN CELL VOLUME 89.8 fl (80-96); MEAN PLT VOLUME 8.2 fl (7.5-11.1); PLATELET COUNT 274 K/MM3 (134-434); RDW 16.9 % (11.6-15.6); WHITE BLOOD COUNT 8.2 K/mm3 (4.0-10.0)
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
[2016-03-06 10:32] LABS: CALCIUM 8.7 mg/dL (8.5-10.1); PHOSPHOROUS 3.4 mg/dL (2.5-4.9)
[2016-03-06] MEDS: methylPREDNISolone NA SUCC 40 MG/1 ML VIAL IVPB SCH (10:59)
[2016-03-06] MEDS: ENOXAPARIN NA (PORCINE) 40 MG/0.4 ML DISP.SYRIN SQ SCH (10:59)
[2016-03-06] MEDS: LOSARTAN POTASSIUM 25 MG TABLET PO SCH (10:59)
[2016-03-06] MEDS: FOLIC ACID 1 MG TABLET (FP) PO SCH (11:00)
[2016-03-06] MEDS: SERTRALINE HCL 50 MG TABLET (FP) PO SCH (11:00)
[2016-03-06] MEDS: ASPIRIN COATED 81 MG TABLET.EC PO SCH (11:00)
[2016-03-06] MEDS: PANTOPRAZOLE 40 MG TABLET (FP) PO SCH (11:00)
[2016-03-06] MEDS: HYDROXYCHLOROQUINE SO4 200 MG TABLET (FP) PO SCH ×2 (11:01→23:16)
[2016-03-06] MEDS: OMEGA-3 ACID ETHYL ESTERS (FATTY-ACIDS) 1 GM CAPSULE (FP) PO SCH (11:02)
[2016-03-06] MEDS: BUDESONIDE/FORMETEROL FUMARATE 160/4.5 mcg INHALER IH SCH ×2 (11:02→23:17)
[2016-03-06] MEDS: carBAMazepine XR 200 MG TAB.ER.12H PO SCH ×2 (11:03→23:17)
--- NOTE | 2016-03-06 12:06 | PN ---
Progress Note, Physician History of Present Illness: PULMONARY ALERT,LESS CONGESTED,+COUGH - Current Medication List Current Medications: Active Medications Albuterol/Ipratropium (Duoneb -) 1 amp NEB QIDR [facility] Last Admin: 03/06/16 06:25 Dose: 1 amp Aspirin (Ecotrin -) 81 mg PO DAILY [facility] Last Admin: 03/06/16 11:00 Dose: 81 mg Atorvastatin Calcium (Lipitor -) 10 mg PO [facility] Last Admin: 03/05/16 21:41 Dose: 10 mg Budesonide/Formoterol Fumarate (Symbicort 160/4.5mcg -) 1 puff IH BID [facility] Last Admin: 03/06/16 11:02 Dose: 1 puff Carbamazepine (Tegretol Xr -) 400 mg PO BID [facility] Last Admin: 03/06/16 11:03 Dose: 400 mg Enoxaparin Sodium (Lovenox -) 40 mg SQ DAILY [facility] Last Admin: 03/06/16 10:59 Dose: 40 mg Folic Acid (Folic Acid -) 2 mg PO DAILY [facility] Last Admin: 03/06/16 11:00 Dose: 2 mg Hydroxychloroquine Sulfate (Plaquenil -) 200 mg PO BID [facility] Last Admin: 03/06/16 11:01 Dose: 200 mg Insulin Aspart (Novolog Vial Sliding Scale -) 1 vial SQ [facility] PRN Reason: Protocol Last Admin: 03/06/16 06:34 Dose: 10 units Insulin Detemir (Levemir Vial) 23 units SQ [facility] Last Admin: 03/05/16 21:49 Dose: 23 units Levothyroxine Sodium (Synthroid -) 50 mcg PO AM [facility] Last Admin: 03/06/16 06:33 Dose: 50 mcg Losartan Potassium (Cozaar -) 75 mg PO DAILY [facility] Last Admin: 03/06/16 10:59 Dose: 75 mg Methotrexate (Mexate -) 12.5 mg PO Th@1000 [facility] Last Admin: 03/04/16 22:22 Dose: 12.5 mg Methylprednisolone Sodium Succinate (Solu-Medrol -) 40 mg IVPB DAILY [facility] Last Admin: 03/06/16 10:59 Dose: 40 mg Montelukast Sodium (Singulair -) 10 mg PO [facility] Last Admin: 03/05/16 21:41 Dose: 10 mg Sdidv-6-Jiev Ethyl Esters (Lovaza -) 2 gm PO DAILY [facility] Last Admin: 03/06/16 11:02 Dose: 2 gm Pantoprazole Sodium (Protonix -) 40 mg PO DAILY [facility] Last Admin: 03/06/16 11:00 Dose: 40 mg Sertraline HCl (Zoloft -) 100 mg PO DAILY [facility] Last Admin: 03/06/16 11:00 Dose: 100 mg - Objective Vital Signs: Vital Signs Temperature 97.2 F L 03/06/16 06:00 Pulse Rate 79 03/06/16 06:00 Respiratory Rate 20 03/06/16 06:00 Blood Pressure 121/79 03/06/16 06:00 O2 Sat by Pulse Oximetry (%) 95 03/05/16 21:00 Constitutional: Yes: Calm, Obese Eyes: Yes: WNL HENT: Yes: WNL Neck: Yes: WNL Cardiovascular: Yes: Regular Rate and Rhythm, S1, S2 Respiratory: Yes: Wheezes (FEW SCATTERED KIMO WHEEZES) Gastrointestinal: Yes: Normal Bowel Sounds, Soft Extremities: Yes: WNL Edema: Yes Labs: CBC, BMP 03/06/16 09:15 03/06/16 09:15 INR, PTT INR 0.94 (0.82-1.09) 03/03/16 23:30 Assessment/Plan Problem List - Problems (1) COPD (chronic obstructive pulmonary disease) Code(s): J44.9 - CHRONIC OBSTRUCTIVE PULMONARY DISEASE, UNSPECIFIED Qualifiers : COPD type: unspecified COPD Qualified Code(s): J44.9 - Chronic obstructive pulmonary disease, unspecified (2) Shortness of breath Code(s): R06.02 - SHORTNESS OF BREATH (3) Chest pain Code(s): R07.9 - CHEST PAIN, UNSPECIFIED Qualifiers: Chest pain type: unspecified Qualified Code(s): R07.9 - Chest pain, unspecified (4) Acute exacerbation of chronic obstructive pulmonary disease (COPD) Code(s): J44.1 - CHRONIC OBSTRUCTIVE PULMONARY DISEASE W (ACUTE) EXACERBATION (5) Asthma exacerbation Code(s): J45.901 - UNSPECIFIED ASTHMA WITH (ACUTE) EXACERBATION (6) CKD (chronic kidney disease) stage 3, GFR 30-59 ml/min Code(s): N18.3 - CHRONIC KIDNEY DISEASE, STAGE 3 (MODERATE) (7) SLE (systemic lupus erythematosus) Code(s): M32.9 - SYSTEMIC LUPUS ERYTHEMATOSUS, UNSPECIFIED (8) Seizure activity as manifestation of blood transfusion reaction Code(s): R56.9 - UNSPECIFIED CONVULSIONS T80.89XA - OTH COMP FOL INFUSION, TRANSFUSE AND THERAPUTC INJECT, INIT Y84.8 - OTH MEDICAL PROCEDURES CAUSE ABN REACT/COMPL, W/O MISADVNT (9) Seizure Code(s): R56.9 - UNSPECIFIED CONVULSIONS Assessment/Plan IV STEROIDS INHALED BRONCHODILATORS O2 SUPPLEMENTATION SINGULAIR DVT PROPHYLAXSIS DAILY PEAK FLOW DR DAI
[2016-03-06] MEDS ORDERED: PT OWN MED DRAWER 7, Y5N ONE (22:57)
[2016-03-06] MEDS: ATORVASTATIN CA 10 MG TABLET (FP) PO SCH (23:16)
[2016-03-06] MEDS: MONTELUKAST NA 10 MG TABLET PO SCH (23:16)
[2016-03-06] MEDS: INSULIN DETEMIR 100 UNITS/ML MDV SQ SCH (23:25)
[2016-03-07] MEDS: ALBUTEROL SO4 2.5/IPRATROPIUM 0.5 INH SOL 3 ML VIAL.NEB. NEB SCH ×5 (00:20→19:56)
[2016-03-07] MEDS: LEVOTHYROXINE NA 50 MCG TABLET (FP) PO SCH (06:17)
[2016-03-07] MEDS: INSULIN SLIDING SCALE (NOVOLOG) 1 VIAL SQ SCH ×4 (06:18→21:56)
[2016-03-07] MEDS ORDERED: IBUPROFEN 600 MG TABLET (FP) PO SCH (10:15)
--- NOTE | 2016-03-07 10:21 | PN ---
Progress Note, Physician - Current Medication List Current Medications: Active Medications Albuterol/Ipratropium (Duoneb -) 1 amp NEB QIDR [facility] Last Admin: 03/07/16 06:45 Dose: 1 amp Atorvastatin Calcium (Lipitor -) 10 mg PO HS [facility] Last Admin: 03/06/16 23:16 Dose: 10 mg Budesonide/Formoterol Fumarate (Symbicort 160/4.5mcg -) 1 puff IH BID [facility] Last Admin: 03/06/16 23:17 Dose: 1 puff Carbamazepine (Tegretol Xr -) 400 mg PO BID [facility] Last Admin: 03/06/16 23:17 Dose: 400 mg Enoxaparin Sodium (Lovenox -) 40 mg SQ DAILY [facility] Last Admin: 03/06/16 10:59 Dose: 40 mg Folic Acid (Folic Acid -) 2 mg PO DAILY [facility] Last Admin: 03/06/16 11:00 Dose: 2 mg Hydroxychloroquine Sulfate (Plaquenil -) 200 mg PO BID [facility] Last Admin: 03/06/16 23:16 Dose: 200 mg Ibuprofen (Motrin -) 400 mg PO Q8H [facility] Insulin Aspart (Novolog Vial Sliding Scale -) 1 vial SQ [facility] PRN Reason: Protocol Last Admin: 03/07/16 06:18 Dose: 2 units Insulin Detemir (Levemir Vial) 23 units SQ [facility] Last Admin: 03/06/16 23:25 Dose: 23 units Levothyroxine Sodium (Synthroid -) 50 mcg PO AM [facility] Last Admin: 03/07/16 06:17 Dose: 50 mcg Losartan Potassium (Cozaar -) 75 mg PO DAILY [facility] Last Admin: 03/06/16 10:59 Dose: 75 mg Methotrexate (Mexate -) 12.5 mg PO Th@1000 [facility] Last Admin: 03/04/16 22:22 Dose: 12.5 mg Montelukast Sodium (Singulair -) 10 mg PO [facility] Last Admin: 03/06/16 23:16 Dose: 10 mg Xnayy-4-Dxnn Ethyl Esters (Lovaza -) 2 gm PO DAILY [facility] Last Admin: 03/06/16 11:02 Dose: 2 gm Pantoprazole Sodium (Protonix -) 40 mg PO DAILY [facility] Last Admin: 03/06/16 11:00 Dose: 40 mg Sertraline HCl (Zoloft -) 100 mg PO DAILY [facility] Last Admin: 03/06/16 11:00 Dose: 100 mg - Objective Vital Signs: Vital Signs Temperature 98.1 F 03/06/16 18:35 Pulse Rate 98 H 03/06/16 18:35 Respiratory Rate 20 03/06/16 18:35 Blood Pressure 152/55 03/06/16 18:35 O2 Sat by Pulse Oximetry (%) 97 03/06/16 21:00 Constitutional: Yes: Well Nourished, No Distress, Calm Eyes: Yes: WNL, Conjunctiva Clear HENT: Yes: WNL, Atraumatic, Normocephalic Neck: Yes: WNL, Supple, Trachea Midline Cardiovascular: Yes: WNL, Regular Rate and Rhythm Respiratory: Yes: WNL, Regular, CTA Bilaterally Gastrointestinal: Yes: WNL, Normal Bowel Sounds Musculoskeletal: Yes: WNL Extremities: Yes: WNL Edema: No Integumentary: Yes: WNL Neurological: Yes: WNL, Alert, Oriented ...Motor Strength: WNL Psychiatric: Yes: WNL Labs: CBC, BMP 03/06/16 09:15 03/06/16 09:15 INR, PTT INR 0.94 (0.82-1.09) 03/03/16 23:30 Impression/Plan Impression/Plan: 61 year old female, with a significant past medical history of asthma,slupus, seizure (last 2009), syncope, COPD, sleep apnea on cpap, type 2 DM, hyperlipidemia, hypothyroidism admitted for progressive shortness of breath SOB -pt was recently admitted and treated for asthma exacerbation with steroid taper and levofloxacin -again complaining of SOB but now also chest pain when lying flat that is improved with sitting up -given history of lupus and recent URI pt was sent for 2D echo and has small effusion -ESR and CRP elevated -still awaiting Rheum consult Asthma -minimal to no wheezing on exam today -prednisone 40 QD to complete taper that patient was discharged on -cont prn nebs -cont symbicort -cont incruse DM -cont sliding scale insulin -cont Levemir Seizures -cont carbamazapine -cont topiramate DANY -Cpap at night 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 - New Patient This patient is new to me today: No - Critical Care Critical Care patient: No
[2016-03-07] MEDS: SERTRALINE HCL 50 MG TABLET (FP) PO SCH (11:09)
[2016-03-07] MEDS: FOLIC ACID 1 MG TABLET (FP) PO SCH (11:09)
[2016-03-07] MEDS: LOSARTAN POTASSIUM 25 MG TABLET PO SCH (11:09)
[2016-03-07] MEDS: HYDROXYCHLOROQUINE SO4 200 MG TABLET (FP) PO SCH (11:10)
[2016-03-07] MEDS: PANTOPRAZOLE 40 MG TABLET (FP) PO SCH (11:10)
[2016-03-07] MEDS: OMEGA-3 ACID ETHYL ESTERS (FATTY-ACIDS) 1 GM CAPSULE (FP) PO SCH (11:10)
[2016-03-07] MEDS: BUDESONIDE/FORMETEROL FUMARATE 160/4.5 mcg INHALER IH SCH ×2 (11:11→21:49)
[2016-03-07] MEDS: carBAMazepine XR 200 MG TAB.ER.12H PO SCH ×2 (11:12→21:50)
[2016-03-07] MEDS: ASPIRIN COATED 81 MG TABLET.EC PO SCH (11:30)
[2016-03-07] MEDS: ENOXAPARIN NA (PORCINE) 40 MG/0.4 ML DISP.SYRIN SQ SCH (11:31)
--- NOTE | 2016-03-07 11:47 | PN ---
Progress Note, Physician History of Present Illness: pulmonary alert,feeling better less dyspneic. - Current Medication List Current Medications: Active Medications Albuterol/Ipratropium (Duoneb -) 1 amp NEB QIDR [facility] Last Admin: 03/07/16 11:32 Dose: 1 amp Atorvastatin Calcium (Lipitor -) 10 mg PO HS [facility] Last Admin: 03/06/16 23:16 Dose: 10 mg Budesonide/Formoterol Fumarate (Symbicort 160/4.5mcg -) 1 puff IH BID [facility] Last Admin: 03/07/16 11:11 Dose: 1 puff Carbamazepine (Tegretol Xr -) 400 mg PO BID [facility] Last Admin: 03/07/16 11:12 Dose: 400 mg Folic Acid (Folic Acid -) 2 mg PO DAILY [facility] Last Admin: 03/07/16 11:09 Dose: 2 mg Hydroxychloroquine Sulfate (Plaquenil -) 200 mg PO BID [facility] Last Admin: 03/07/16 11:10 Dose: 200 mg Ibuprofen (Motrin -) 400 mg PO Q8H [facility] Insulin Aspart (Novolog Vial Sliding Scale -) 1 vial SQ [facility] PRN Reason: Protocol Last Admin: 03/07/16 06:18 Dose: 2 units Insulin Detemir (Levemir Vial) 23 units SQ [facility] Last Admin: 03/06/16 23:25 Dose: 23 units Levothyroxine Sodium (Synthroid -) 50 mcg PO AM [facility] Last Admin: 03/07/16 06:17 Dose: 50 mcg Losartan Potassium (Cozaar -) 75 mg PO DAILY [facility] Last Admin: 03/07/16 11:09 Dose: 75 mg Methotrexate (Mexate -) 12.5 mg PO Th@1000 [facility] Last Admin: 03/04/16 22:22 Dose: 12.5 mg Montelukast Sodium (Singulair -) 10 mg PO HS [facility] Last Admin: 03/06/16 23:16 Dose: 10 mg Bfppk-[id number] Ethyl Esters (Lovaza -) 2 gm PO DAILY [facility] Last Admin: 03/07/16 11:10 Dose: 2 gm Pantoprazole Sodium (Protonix -) 40 mg PO DAILY [facility] Last Admin: 03/07/16 11:10 Dose: 40 mg Sertraline HCl (Zoloft -) 100 mg PO DAILY [facility] Last Admin: 03/07/16 11:09 Dose: 100 mg - Objective Vital Signs: Vital Signs Temperature 98.1 F 03/06/16 18:35 Pulse Rate 98 H 03/06/16 18:35 Respiratory Rate 20 03/06/16 18:35 Blood Pressure 152/55 03/06/16 18:35 O2 Sat by Pulse Oximetry (%) 97 03/06/16 21:00 Constitutional: Yes: Well Nourished, Calm Eyes: Yes: WNL HENT: Yes: WNL Neck: Yes: WNL Cardiovascular: Yes: Regular Rate and Rhythm, S1, S2 Respiratory: Yes: Diminished Gastrointestinal: Yes: WNL Extremities: Yes: WNL Edema: No Labs: CBC, BMP Assessment/Plan Problem List - Problems (1) COPD (chronic obstructive pulmonary disease) Code(s): J44.9 - CHRONIC OBSTRUCTIVE PULMONARY DISEASE, UNSPECIFIED Qualifiers : COPD type: unspecified COPD Qualified Code(s): J44.9 - Chronic obstructive pulmonary disease, unspecified (2) Shortness of breath Code(s): R06.02 - SHORTNESS OF BREATH (3) Chest pain Code(s): R07.9 - CHEST PAIN, UNSPECIFIED Qualifiers: Chest pain type: unspecified Qualified Code(s): R07.9 - Chest pain, unspecified (4) Acute exacerbation of chronic obstructive pulmonary disease (COPD) Code(s): J44.1 - CHRONIC OBSTRUCTIVE PULMONARY DISEASE W (ACUTE) EXACERBATION (5) Asthma exacerbation Code(s): J45.901 - UNSPECIFIED ASTHMA WITH (ACUTE) EXACERBATION (6) CKD (chronic kidney disease) stage 3, GFR 30-59 ml/min Code(s): N18.3 - CHRONIC KIDNEY DISEASE, STAGE 3 (MODERATE) (7) SLE (systemic lupus erythematosus) Code(s): M32.9 - SYSTEMIC LUPUS ERYTHEMATOSUS, UNSPECIFIED (8) Seizure activity as manifestation of blood transfusion reaction Code(s): R56.9 - UNSPECIFIED CONVULSIONS T80.89XA - OTH COMP FOL INFUSION, TRANSFUSE AND THERAPUTC INJECT, INIT Y84.8 - OTH MEDICAL PROCEDURES CAUSE ABN REACT/COMPL, W/O MISADVNT (9) Seizure Code(s): R56.9 - UNSPECIFIED CONVULSIONS Assessment/Plan INHALED BRONCHODILATORS O2 SUPPLEMENTATION SINGULAIR DVT PROPHYLAXSIS DAILY [facility]OW DR DAI
[2016-03-07] MEDS: predniSONE 20 MG TABLET (UD) PO SCH (12:09)
[2016-03-07] MEDS: IBUPROFEN 400 MG TABLET (FP) PO SCH ×2 (12:12→21:59)
[2016-03-07] MEDS ORDERED: PT OWN MED DRAWER 7, Y5N ONE (21:34)
[2016-03-07] MEDS: ATORVASTATIN CA 10 MG TABLET (FP) PO SCH (21:49)
[2016-03-07] MEDS: MONTELUKAST NA 10 MG TABLET PO SCH (21:49)
[2016-03-07] MEDS: INSULIN DETEMIR 100 UNITS/ML MDV SQ SCH (21:54)
[2016-03-08] MEDS: HYDROXYCHLOROQUINE SO4 200 MG TABLET (FP) PO SCH ×3 (04:04→22:27)
[2016-03-08] MEDS: IBUPROFEN 400 MG TABLET (FP) PO SCH ×3 (04:40→22:31)
[2016-03-08] MEDS: LEVOTHYROXINE NA 50 MCG TABLET (FP) PO SCH (06:24)
[2016-03-08] MEDS: INSULIN SLIDING SCALE (NOVOLOG) 1 VIAL SQ SCH ×4 (06:25→22:33)
[2016-03-08] MEDS: OMEGA-3 ACID ETHYL ESTERS (FATTY-ACIDS) 1 GM CAPSULE (FP) PO SCH (09:14)
[2016-03-08] MEDS: predniSONE 20 MG TABLET (UD) PO SCH (09:15)
[2016-03-08] MEDS: FOLIC ACID 1 MG TABLET (FP) PO SCH (09:16)
[2016-03-08] MEDS: LOSARTAN POTASSIUM 25 MG TABLET PO SCH (09:16)
[2016-03-08] MEDS: SERTRALINE HCL 50 MG TABLET (FP) PO SCH (09:16)
[2016-03-08] MEDS: PANTOPRAZOLE 40 MG TABLET (FP) PO SCH (09:16)
[2016-03-08] MEDS: UMECLIDINIUM NR SCH (09:28)
[2016-03-08] MEDS: [UNRECOGNIZED DRUG - OTHER] NR SCH (09:28)
[2016-03-08] MEDS: carBAMazepine XR 200 MG TAB.ER.12H PO SCH ×2 (09:47→22:28)
[2016-03-08] MEDS ORDERED: PT OWN MED DRAWER 7, Y5N ONE ×3 (09:50→21:10)
--- NOTE | 2016-03-08 09:57 | PN ---
Progress Note, Physician History of Present Illness: Recent events reviewed. Pt alert NAD. Dyspnea is improved but remains dyspneic with mild exertion. - Current Medication List Current Medications: Active Medications Albuterol/Ipratropium (Duoneb -) 1 amp NEB QIDR [facility] Last Admin: 03/07/16 19:56 Dose: 1 amp Atorvastatin Calcium (Lipitor -) 10 mg PO [facility] Last Admin: 03/07/16 21:49 Dose: 10 mg Budesonide/Formoterol Fumarate (Symbicort 160/4.5mcg -) 1 puff IH BID [facility] Last Admin: 03/07/16 21:49 Dose: 1 puff Carbamazepine (Tegretol Xr -) 400 mg PO BID [facility] Last Admin: 03/08/16 09:47 Dose: 400 mg Folic Acid (Folic Acid -) 2 mg PO DAILY [facility] Last Admin: 03/08/16 09:16 Dose: 2 mg Hydroxychloroquine Sulfate (Plaquenil -) 200 mg PO BID [facility] Last Admin: 03/08/16 09:15 Dose: 200 mg Ibuprofen (Motrin -) 400 mg PO Q8H [facility] Last Admin: 03/08/16 04:40 Dose: 400 mg Insulin Aspart (Novolog Vial Sliding Scale -) 1 vial SQ [facility] PRN Reason: Protocol Last Admin: 03/08/16 06:25 Dose: 2 units Insulin Detemir (Levemir Vial) 23 units SQ [facility] Last Admin: 03/07/16 21:54 Dose: 23 units Levothyroxine Sodium (Synthroid -) 50 mcg PO AM [facility] Last Admin: 03/08/16 06:24 Dose: 50 mcg Losartan Potassium (Cozaar -) 75 mg PO DAILY [facility] Last Admin: 03/08/16 09:16 Dose: 75 mg Methotrexate (Mexate -) 12.5 mg PO Th@1000 [facility] Last Admin: 03/04/16 22:22 Dose: 12.5 mg Montelukast Sodium (Singulair -) 10 mg PO [facility] Last Admin: 03/07/16 21:49 Dose: 10 mg N/F , Incruse (Inhaler) 1 each NR DAILY [facility] Last Admin: 03/08/16 09:28 Dose: 1 each Ksjyq-1-Czzt Ethyl Esters (Lovaza -) 2 gm PO DAILY [facility] Last Admin: 01/23/17 09:14 Dose: 2 gm Pantoprazole Sodium (Protonix -) 40 mg PO DAILY [facility] Last Admin: 03/08/16 09:16 Dose: 40 mg Prednisone (Deltasone -) 40 mg PO DAILY [facility] Last Admin: 03/08/16 09:15 Dose: 40 mg Sertraline HCl (Zoloft -) 100 mg PO DAILY [facility] Last Admin: 03/08/16 09:16 Dose: 100 mg - Objective Vital Signs: Vital Signs Temperature 97.2 F L 03/08/16 06:00 Pulse Rate 76 03/08/16 06:00 Respiratory Rate 16 03/08/16 06:00 Blood Pressure 133/89 03/08/16 06:00 O2 Sat by Pulse Oximetry (%) 98 03/07/16 21:00 Constitutional: No: No Distress Eyes: No: Sclera Icterus HENT: Yes: Atraumatic, Normocephalic Neck: Yes: Supple, Trachea Midline Cardiovascular: Yes: Regular Rate and Rhythm. No: JVD Respiratory: Yes: CTA Bilaterally Gastrointestinal: Yes: Soft. No: Tenderness Edema: No Labs: CBC, BMP 03/06/16 09:15 03/06/16 09:15 INR, PTT INR 0.94 (0.82-1.09) 03/03/16 23:30 Problem List - Problems (1) Acute exacerbation of chronic obstructive pulmonary disease (COPD) Code(s): J44.1 - CHRONIC OBSTRUCTIVE PULMONARY DISEASE W (ACUTE) EXACERBATION (2) Sleep apnea, obstructive Code(s): G47.33 - OBSTRUCTIVE SLEEP APNEA (ADULT) (PEDIATRIC) (3) Morbid obesity Code(s): E66.01 - MORBID (SEVERE) OBESITY DUE TO EXCESS CALORIES Assessment/Plan 61 year old lady with Acute Exacerbation exacerbation: improving DANY: stable on CPAP. Pt to use her own CPAP machine and mask in hospital. Morbid Obesity. BMI 48.5. Plan: CPAP at night Systemic steroid taper LABA,LAMA, ICS and Montelukast JUANY PRN O2 to maintain SaO2 >90 Outpt evaluation for bariatric surgery
--- NOTE | 2016-03-08 10:49 | PN ---
Progress Note, Physician - Current Medication List Current Medications: Active Medications Albuterol/Ipratropium (Duoneb -) 1 amp NEB QIDR [facility] Last Admin: 03/07/16 19:56 Dose: 1 amp Atorvastatin Calcium (Lipitor -) 10 mg PO HS [facility] Last Admin: 03/07/16 21:49 Dose: 10 mg Budesonide/Formoterol Fumarate (Symbicort 160/4.5mcg -) 1 puff IH BID [facility] Last Admin: 03/07/16 21:49 Dose: 1 puff Carbamazepine (Tegretol Xr -) 400 mg PO BID [facility] Last Admin: 03/08/16 09:47 Dose: 400 mg Folic Acid (Folic Acid -) 2 mg PO DAILY [facility] Last Admin: 03/08/16 09:16 Dose: 2 mg Hydroxychloroquine Sulfate (Plaquenil -) 200 mg PO BID [facility] Last Admin: 03/08/16 09:15 Dose: 200 mg Ibuprofen (Motrin -) 400 mg PO Q8H [facility] Last Admin: 03/08/16 04:40 Dose: 400 mg Insulin Aspart (Novolog Vial Sliding Scale -) 1 vial SQ [facility] PRN Reason: Protocol Last Admin: 03/08/16 06:25 Dose: 2 units Insulin Detemir (Levemir Vial) 23 units SQ [facility] Last Admin: 03/07/16 21:54 Dose: 23 units Levothyroxine Sodium (Synthroid -) 50 mcg PO AM [facility] Last Admin: 03/08/16 06:24 Dose: 50 mcg Losartan Potassium (Cozaar -) 75 mg PO DAILY [facility] Last Admin: 03/08/16 09:16 Dose: 75 mg Methotrexate (Mexate -) 12.5 mg PO Th@1000 [facility] Last Admin: 03/04/16 22:22 Dose: 12.5 mg Montelukast Sodium (Singulair -) 10 mg PO [facility] Last Admin: 03/07/16 21:49 Dose: 10 mg N/F , Incruse (Inhaler) 1 each NR DAILY [facility] Last Admin: 03/08/16 09:28 Dose: 1 each Rxkwr-3-Musc Ethyl Esters (Lovaza -) 2 gm PO DAILY [facility] Last Admin: 03/08/16 09:14 Dose: 2 gm Pantoprazole Sodium (Protonix -) 40 mg PO DAILY [facility] Last Admin: 03/08/16 09:16 Dose: 40 mg Prednisone (Deltasone -) 40 mg PO DAILY [facility] Last Admin: 03/08/16 09:15 Dose: 40 mg Sertraline HCl (Zoloft -) 100 mg PO DAILY [facility] Last Admin: 03/08/16 09:16 Dose: 100 mg - Objective Vital Signs: Vital Signs Temperature 97.2 F L 03/08/16 06:00 Pulse Rate 76 03/08/16 06:00 Respiratory Rate 16 03/08/16 06:00 Blood Pressure 133/89 03/08/16 06:00 O2 Sat by Pulse Oximetry (%) 98 03/07/16 21:00 Constitutional: Yes: Well Nourished, No Distress, Calm Eyes: Yes: WNL, Conjunctiva Clear HENT: Yes: WNL, Atraumatic, Normocephalic Neck: Yes: WNL, Supple, Trachea Midline Cardiovascular: Yes: WNL, Regular Rate and Rhythm Respiratory: Yes: Diminished (at baseline). No: Rales, Rhonchi, Wheezes Gastrointestinal: Yes: WNL, Normal Bowel Sounds Musculoskeletal: Yes: WNL Extremities: Yes: WNL Edema: No Integumentary: Yes: WNL Neurological: Yes: WNL, Alert, Oriented ...Motor Strength: WNL Psychiatric: Yes: WNL Labs: CBC, BMP 03/06/16 09:15 03/06/16 09:15 INR, PTT INR 0.94 (0.82-1.09) 03/03/16 23:30 Impression/Plan Impression/Plan: 61 year old female, with a significant past medical history of asthma,slupus, seizure (last 2009), syncope, COPD, sleep apnea on cpap, type 2 DM, hyperlipidemia, hypothyroidism admitted for progressive shortness of breath SOB -pt was recently admitted and treated for asthma exacerbation with steroid taper and levofloxacin -again complaining of SOB but now also chest pain when lying flat that is improved with sitting up -given history of lupus and recent URI pt was sent for 2D echo and has small effusion -ESR and CRP elevated -started on standing ibuprofen -still awaiting Rheum consult Asthma -minimal to no wheezing on exam today -completed prednisone taper that patient was discharged on from previous admission -cont prn nebs -cont symbicort -cont incruse DM -cont sliding scale insulin -cont Levemir Seizures -cont carbamazapine -cont topiramate DANY -Cpap at night DVT proph -subQ heparin Visit type - Emergency Visit Emergency Visit: Yes ED Registration Date: 03/04/16 Care time: The patient presented to the Emergency Department on the above date and was hospitalized for further evaluation of their emergent condition. - New Patient This patient is new to me today: No - Critical Care Critical Care patient: No
[2016-03-08] MEDS: BUDESONIDE/FORMETEROL FUMARATE 160/4.5 mcg INHALER IH SCH ×2 (11:30→22:33)
[2016-03-08] MEDS: ALBUTEROL SO4 2.5/IPRATROPIUM 0.5 INH SOL 3 ML VIAL.NEB. NEB SCH ×3 (14:50→23:38)
[2016-03-08] MEDS: ATORVASTATIN CA 10 MG TABLET (FP) PO SCH (22:24)
[2016-03-08] MEDS: MONTELUKAST NA 10 MG TABLET PO SCH (22:26)
[2016-03-08] MEDS: INSULIN DETEMIR 100 UNITS/ML MDV SQ SCH (22:31)
[2016-03-09] MEDS: LEVOTHYROXINE NA 50 MCG TABLET (FP) PO SCH (06:45)
[2016-03-09] MEDS: INSULIN SLIDING SCALE (NOVOLOG) 1 VIAL SQ SCH ×2 (06:46→12:35)
[2016-03-09] MEDS: IBUPROFEN 400 MG TABLET (FP) PO SCH (06:48)
[2016-03-09] MEDS: ALBUTEROL SO4 2.5/IPRATROPIUM 0.5 INH SOL 3 ML VIAL.NEB. NEB SCH (06:57)
[2016-03-09 07:36] VITALS: BP 111/48; PULSE 72; TEMP 98.1
[2016-03-09] MEDS ORDERED: carBAMazepine XR 400 MG TAB.ER.12H PO SCH (10:00)
[2016-03-09] MEDS: FOLIC ACID 1 MG TABLET (FP) PO SCH (10:10)
[2016-03-09] MEDS: LOSARTAN POTASSIUM 25 MG TABLET PO SCH (10:13)
[2016-03-09] MEDS: PANTOPRAZOLE 40 MG TABLET (FP) PO SCH (10:14)
[2016-03-09] MEDS: SERTRALINE HCL 50 MG TABLET (FP) PO SCH (10:14)
[2016-03-09] MEDS: OMEGA-3 ACID ETHYL ESTERS (FATTY-ACIDS) 1 GM CAPSULE (FP) PO SCH (10:15)
[2016-03-09] MEDS: HYDROXYCHLOROQUINE SO4 200 MG TABLET (FP) PO SCH (10:15)
[2016-03-09] MEDS: BUDESONIDE/FORMETEROL FUMARATE 160/4.5 mcg INHALER IH SCH (10:15)
[2016-03-09] MEDS: [UNRECOGNIZED DRUG - OTHER] NR SCH (10:17)
[2016-03-09] MEDS: UMECLIDINIUM NR SCH (10:17)
--- NOTE | 2016-03-09 13:15 | DS ---
Physical Exam: SUBJECTIVE: Patient seen and examined Patient resting in bed comfortably, NAD. No acute events. afebrile and hemodynamically stable.Her reproducible sternal chest tightness is still persent but her SOB is improved and she was able to ambulate. She deneis h/a, f /c/, n/v, abd pain, palpitations. OBJECTIVE: Vital Signs Period Temp Pulse Resp BP Sys/Oconnell Pulse Ox Last 24 Hr 97.5 F-99.0 F 72-99 18-20 111-147/48-73 98-98 PHYSICAL EXAM GENERAL: The patient is awake, alert, and fully oriented, in mild distress. HEAD: Normal with no signs of trauma. EYES: PERRL, extraocular movements intact, sclera anicteric, conjunctiva clear. No ptosis. ENT: moist mucous membranes. NECK: supple, no JVD LUNGS: diffuse wheezing, restricted air movement HEART: tachy rate and reg rhythm, S1, S2. reproducible sternal chest pain ABDOMEN: Soft, nontender, nondistended, normoactive bowel sounds EXTREMITIES: 2+ pulses, warm, well-perfused, legs obese, no pitting. NEUROLOGICAL: Cranial nerves II through XII grossly intact. Normal speech, gait not observed. PSYCH: Normal mood, normal affect. SKIN: Warm, dry LABS Laboratory Results - last 24 hr 03/08/16 03/08/16 03/09/16 17:30 22:22 06:45 POC Glucometer 367 282 190 03/09/16 12:21 POC Glucometer 138 HOSPITAL COURSE: Date of Admission:03/04/16 61 year old female with PMH of asthma, lupus, seizure (last 2009), syncope, COPD, sleep apnea on cpap, type 2 DM, hyperlipidemia, hypothyroidism, who presented to the ED with the chief complaints of worsening of cough, SOB and wheeze x 1 week. Patient states that she was admitted on 02/19/2016 for AE of Asthma and discharged on 02/26/2016 on Levofloxacin and Prednisone. She says that although she completed full course of the antibiotics, the cough got worse , had production of yellow/whitish sputum, no blood noticed. Cough was associated with SOB and audible wheeze. Patient reports using Albuterol every 6 hours with short term relief. These symptoms were associated with chest tightness, radiating under her right breast and back, aggravated on lying down, relieved on sitting up. Also gives h/o orthopnea but no PND. Uses CPAP at home which helps the breathing. Patient states she cannot sleep for more than 4 hours /night. Denies headache, fever, chills, rigors or sweating. She was afebrole and had mild steroid associated leukocytosios. She had restricted air movement on physical exam. She was admitted with SOB due to asthma exacerbation vs pericarditis associated with lupus. 2D echo showed trace pericardial effusion effusion, ESR and CRP mildly elevated. She was started on standing ibuprofen, which didn't alleviate symptoms. She had minimal to no wheezing and completed prednisone taper that patient was discharged on from previous admission. She was salso treated with prn nebs, symbicort and incruse. She was discharged to rehab with improved symptoms and advised to f/u with rheumatology ubaldo. Date of Discharge: 03/09/16 Minutes to complete discharge: 30 (na) Discharge Summary Reason For Visit: COPD CHEST PAIN Current Active Problems COPD (chronic obstructive pulmonary disease) (Acute) Lupus pericarditis (Acute) Seizure (Acute) Seizure activity as manifestation of blood transfusion reaction (Acute) Shortness of breath (Acute) Chest pain (Chronic) Condition: Stable - Instructions Diet, Activity, Other Instructions: you were admitted due to asthma exacerbation. you completed a course of antibiotic and a course of steroids and don't require any further antibiotic or steroid therapy. continue your daily inhalers and the Duoneb inhaler that was added to your regimen in the hospital and was sent to your pharmacy. Follow up with pulmonology and primary care after you finish rehab There was some concern that your symptoms might be associated with lupus. please follow up with rheumatlogy as soon as possible. return to hospital if symptoms worsen Referrals: Eriberto Harvey MD [Staff Physician] - 1 Week Goran Hernandez MD [Primary Care Provider] - 1 Week Disposition: [facility] - Home Medications Comprehensive Discharge Medication List: Ambulatory Orders Albuterol Sulfate Inhaler - [Ventolin HFA Inhaler -] 1 - 2 inh PO QID PRN Aspirin/Calcium Carbonate/Mag [Aspirin Buffered 325 mg Tab] 325 mg PO BID Atorvastatin Ca [Lipitor] 10 mg PO DAILY 10/20/15 Biotin [Hard Nails] 5,000 mcg PO DAILY 10/20/15 Budesonide/Formeterol Fumarate [SYMBICORT 160/4.5mcg -] 1 inh PO BID 10/20/15 Carbamazepine Xr [Tegretol XR -] 400 mg PO BID 10/20/15 Folic Acid 2 mg PO DAILY 10/20/15 Hydroxychloroquine Sulfate [Plaquenil] 200 mg PO BID 10/20/15 L.acidop,Daren,Lac,Rha/B.lac,Edmundo [Advanced Probiotic Capsule] 625 mg PO DAILY 06/29 Levothyroxine [Synthroid -] 50 mcg PO DAILY 10/20/15 Linaclotide [Linzess] 145 mcg PO DAILY 10/20/15 Meloxicam [Mobic (Nf) -] 15 mg PO DAILY 10/20/15 Methotrexate [Mexate -] 12.5 mg PO Q7D 10/20/15 Montelukast Na [Singulair -] 10 mg PO DAILY 10/20/15 Tripp-3 Fatty Acids [Tripp-3] 2 tab PO DAILY 10/20/15 Omeprazole [Prilosec] 40 mg PO DAILY 10/20/15 Sertraline HCl [Zoloft -] 100 mg PO DAILY 10/20/15 Topiramate [Trokendi Xr] 100 mg PO BID 10/20/15 Umeclidinium Volcano [Incruse Ellipta] 62.5 mcg IH ASDIR 10/20/15 Insulin (Levemir) [Levemir Vial] 23 units SQ HS #24 ml 02/26/16 Insulin Sliding Scale [Novolog Vial Sliding Scale -] 1 vial SQ [facility] #200 units 02/26/16 Losartan Potassium [Cozaar -] 75 mg PO DAILY #60 tablet 02/26/16 Albuterol 2.5/Ipratropium 0.5 [Duoneb -] 1 amp NEB QIDR #10 amp 03/09/16 Problem List - Problems (1) COPD (chronic obstructive pulmonary disease) Code(s): J44.9 - CHRONIC OBSTRUCTIVE PULMONARY DISEASE, UNSPECIFIED Qualifiers : COPD type: unspecified COPD Qualified Code(s): J44.9 - Chronic obstructive pulmonary disease, unspecified (2) Shortness of breath Code(s): R06.02 - SHORTNESS OF BREATH (3) Chest pain Code(s): R07.9 - CHEST PAIN, UNSPECIFIED Qualifiers: Chest pain type: unspecified Qualified Code(s): R07.9 - Chest pain, unspecified (4) Asthma exacerbation Code(s): J45.901 - UNSPECIFIED ASTHMA WITH (ACUTE) EXACERBATION (5) CHF (congestive heart failure) Code(s): I50.9 - HEART FAILURE, UNSPECIFIED (6) CKD (chronic kidney disease) stage 3, GFR 30-59 ml/min Code(s): N18.3 - CHRONIC KIDNEY DISEASE, STAGE 3 (MODERATE) (7) Hypertension Code(s): I10 - ESSENTIAL (PRIMARY) HYPERTENSION Qualifiers: Hypertension type: essential hypertension Qualified Code(s): I10 - Essential (primary) hypertension (8) Hypothyroidism Code(s): E03.9 - HYPOTHYROIDISM, UNSPECIFIED Qualifiers: Hypothyroidism type: unspecified Qualified Code(s): E03.9 - Hypothyroidism, unspecified (9) SLE (systemic lupus erythematosus) Code(s): M32.9 - SYSTEMIC LUPUS ERYTHEMATOSUS, UNSPECIFIED (10) Sleep apnea, obstructive Code(s): G47.33 - OBSTRUCTIVE SLEEP APNEA (ADULT) (PEDIATRIC) (11) Type 2 diabetes mellitus Code(s): E11.9 - TYPE 2 DIABETES MELLITUS WITHOUT COMPLICATIONS Qualifiers: Diabetes mellitus complication status: with kidney complications Diabetes mellitus complication detail: with chronic kidney disease Chronic kidney disease stage: stage 3 (moderate) (12) Atypical chest pain Code(s): R07.89 - OTHER CHEST PAIN (13) Morbid obesity Code(s): E66.01 - MORBID (SEVERE) OBESITY DUE TO EXCESS CALORIES (14) Seizure disorder Code(s): G40.909 - EPILEPSY, UNSP, NOT INTRACTABLE, WITHOUT STATUS EPILEPTICUS (15) Lupus pericarditis Code(s): M32.12 - PERICARDITIS IN SYSTEMIC LUPUS ERYTHEMATOSUS This patient is new to me today: No Emergency Visit: Yes ED Registration Date: 03/04/16 Care time: The patient presented to the Emergency Department on the above date and was hospitalized for further evaluation of their emergent condition. Critical Care patient: No - Discharge Referral Referred to [facility] Med [facility] No
--- NOTE | 2016-03-09 13:34 | PN ---
Teaching Attending Note Name of Resident: Nina Pearson ATTENDING PHYSICIAN STATEMENT I saw and evaluated the patient. I reviewed the resident's note and discussed the case with the resident. I agree with the resident's findings and plan as documented. SUBJECTIVE:continues to have intermittent chest "soreness" worse when leaning forward and laying down but has overall improved since admission. does not radiate. she states her breathing has improved. denies fever, chills, cough, N/ V/C/D OBJECTIVE: Last Vital Signs Temp Pulse Resp BP Pulse Ox 98.1 F 72 18 111/48 98 03/09/16 06:00 03/09/16 06:00 03/09/16 06:00 03/09/16 06:00 03/09/16 09:00 General NAD CV S1 S2 RRR no murmur/rub/gallop +chest wall tenderness substernal Lungs CTA B/L mild coarse breathing ASSESSMENT AND PLAN: 61yo F with PMH ashtma, DANY on cpap, SLE, COPD, hypothyroid and dyslipidemia presented to the ER and was admitted for further evaluation of their emergent condition 1. Acute COPD exacerbation- currently saturating 99% on RA. completed steroid coarse set up by pulmonary. concerns for SLE flare which was concern from previous admission. Rheumatology was consulted and has no evaluated on this admission. has appt with private solo musician. plan is for discharge to SNF for SUSIE and pulmonary rehab. counseled pt on need to follow up with solo musician and PMD. which she verbalized understanding and agreement. will d /c her to SNF
== END 2016-03-09 13:30 | DRG 191 ==
LOC: JER 22:21 → JERBED 03-04 01:13 → J5S 03-04 15:33 → OBSVTOIN 03-04 15:38
PROVIDERS: ADMIT Family Medicine; ATTEND Internal Medicine
PROC: 5A09557 Assistance with Respiratory Ventilation, Greater than 96 Consecutive Hours, Continuous Positive Airway Pressure (ICD-10-PCS; principal; 2016-03-04)
DX: J44.1 Chronic obstructive pulmonary disease with (acute) exacerbation (principal); J45.901 Unspecified asthma with (acute) exacerbation; Z68.42 Body mass index [BMI] 45.0-49.9, adult; N17.9 Acute kidney failure, unspecified; E78.5 Hyperlipidemia, unspecified; E03.9 Hypothyroidism, unspecified; G47.33 Obstructive sleep apnea (adult) (pediatric); R07.9 Chest pain, unspecified; E11.9 Type 2 diabetes mellitus without complications; E66.01 Morbid (severe) obesity due to excess calories; Z87.891 Personal history of nicotine dependence; I10 Essential (primary) hypertension
CPT/HCPCS: 36415; 36600; 71020-TC; 80048; 80053; 82550; 82803; 83735; 83880; 84100; 84484; 85025; 85027; 85610; 85651; 86140; 93005; 93010; 93306-TC; 94640; 94660; 97116-GP; 97162-PG; 99284-25; G0378; J8610

== ENCOUNTER 2016-05-20 13:35 | Inpatient (IN) | payer OTHER ==
[2016-05-20 13:42] VITALS: BMI 47.5
[2016-05-20 14:25] LABS: BASOPHIL 1.1 % (0-2.0); EOSINOPHIL 0.3 % (0-4.5); MCH 28.9 pg (25.7-33.7); MCHC 32.3 g/dl (32.0-36.0); MEAN CELL VOLUME 89.4 fl (80-96); MEAN PLT VOLUME 8.2 fl (7.5-11.1); NEUTROPHILS 49.7 % (42.8-82.8); PLATELET COUNT 323 K/MM3 (134-434); RDW 16.9 % (11.6-15.6); WHITE BLOOD COUNT 7.8 K/mm3 (4.0-10.0)
[2016-05-20 15:03] LABS: ALBUMIN 3.4 g/dl (3.4-5.0); CALCIUM 8.4 mg/dL (8.5-10.1); COCKROFT - GAULT 101.252; CREATININE 1.1 mg/dL (0.55-1.02)
[2016-05-20 15:07] LABS: BILIRUBIN,TOTAL 0.3 mg/dL (0.2-1.0); TOT PROT 7.4 g/dl (6.4-8.2); TROPONIN I 0.02 ng/ml (0.00-0.05)
[2016-05-20 15:09] LABS: INR 1.04 (0.82-1.09); PROTHROMBIN TIME (PATIENT) 11.5 SEC (9.98-11.88)
[2016-05-20] MEDS ORDERED: ONDANSETRON 4 MG/2 ML VIAL IVPUSH ONE (16:04)
--- NOTE | 2016-05-20 16:07 | EKG ---
Test Reason : Blood Pressure : / mmHG Vent. Rate : 073 BPM Atrial Rate : 073 BPM P-R Int : 162 ms QRS Dur : 080 ms QT Int : 378 ms P-R-T Axes : 045 -11 044 degrees QTc Int : 416 ms POOR DATA QUALITY, INTERPRETATION MAY BE ADVERSELY AFFECTED NORMAL SINUS RHYTHM MODERATE VOLTAGE CRITERIA FOR LVH, MAY BE NORMAL VARIANT BORDERLINE ECG WHEN COMPARED WITH ECG OF 03-MAR-2016 23:55, NO SIGNIFICANT CHANGE WAS FOUND Confirmed by ROSSY RODRIGUES MD ([id number]) on 05/20/2016 4:07:44 PM Referred By: Confirmed By:ROSSY RODRIGUES MD
--- NOTE | 2016-05-20 16:10 | PDOC ---
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 Patient states mild epigastric burning radiating to her mid chest and radiating into her back. Patient also stating increasing shortness of breath over the past few weeks without cough, fever or chills. Patient is followed by Dr. Dr. Hernandez for primary care, Dr. 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 Timing/Duration: changing over time Severity: mild Associated Symptoms: reports: chest pain, nausea/vomiting Past History - Past Medical History Allergies/Adverse Reactions: Allergies Allergy/AdvReac Type Severity Reaction Status Date / Time gabapentin [From Neurontin] Allergy PALPITATIONS, Verified 05/20/16 13:43 PASSES OUT Penicillins Allergy TONGUE Verified 05/20/16 13:43 Swelling phenytoin sodium Allergy diarrhea/vo Verified 05/20/16 13:43 [From Dilantin] miting phenytoin sodium extended Allergy Verified 05/20/16 13:43 [From Dilantin] theophylline [Theophylline] Allergy diarrhea,SE Verified 05/20/16 13:43 IZURES Home Medications: Ambulatory Orders Albuterol Sulfate Inhaler - [Ventolin HFA Inhaler -] 1 - 2 inh PO QID PRN Atorvastatin Ca [Lipitor] 10 mg PO DAILY 10/20/15 Biotin [Hard Nails] 5,000 mcg PO DAILY 10/20/15 Budesonide/Formeterol Fumarate [SYMBICORT 160/4.5mcg -] 1 inh PO BID 10/20/15 Carbamazepine Xr [Tegretol XR -] 400 mg PO BID 10/20/15 Folic Acid 2 mg PO DAILY 10/20/15 Hydroxychloroquine Sulfate [Plaquenil] 200 mg PO BID 10/20/15 L.acidop,Daren,Lac,Rha/B.lac,Edmundo [Advanced Probiotic Capsule] 625 mg PO DAILY 06/29 Levothyroxine [Synthroid -] 50 mcg PO DAILY 10/20/15 Linaclotide [Linzess] 145 mcg PO DAILY 10/20/15 Meloxicam [Mobic (Nf) -] 15 mg PO DAILY 10/20/15 Methotrexate [Mexate -] 12.5 mg PO Q7D 10/20/15 Montelukast Na [Singulair -] 10 mg PO DAILY 10/20/15 Lawrence-3 Fatty Acids [Lawrence-3] 2 tab PO DAILY 10/20/15 Omeprazole [Prilosec] 40 mg PO DAILY 10/20/15 Sertraline HCl [Zoloft -] 100 mg PO DAILY 10/20/15 Topiramate [Trokendi Xr] 100 mg PO BID 10/20/15 Umeclidinium [place] [Incruse Ellipta] 62.5 mcg IH ASDIR 10/20/15 Insulin (Levemir) [Levemir Vial] 23 units SQ HS #24 ml 02/26/16 Insulin Sliding Scale [Novolog Vial Sliding Scale -] 1 vial SQ ACHS #200 units 02/26/16 Losartan Potassium [Cozaar -] 75 mg PO DAILY #60 tablet 02/26/16 Albuterol 2.5/Ipratropium 0.5 [Duoneb -] 1 amp NEB QIDR #10 amp 03/09/16 Me-Thfolate Gluc/B12/Herb #236 [Rheumate Capsule] 1 each PO DAILY 05/20/16 Methylprednisolone [Medrol Dose Diomedes] 20 mg PO ASDIR 05/20/16 Anemia: No Asthma: Yes Cancer: No Cardiac Disorders: No CVA: No COPD: Yes CHF: No Dementia: No Diabetes: Yes (IDDM) GI Disorders: Yes (REFLUX) Disorders: No HTN: Yes Hypercholesterolemia: Yes Liver Disease: No Seizures: Yes Thyroid Disease: Yes (HYPO) - Surgical History Abdominal Surgery: No Appendectomy: No Cardiac Surgery: No Cholecystectomy: Yes Lung Surgery: No Neurologic Surgery: No Orthopedic Surgery: Yes (08/2014 R HIP REPLACEMENT, BILAT KNEE ARTHROSCOPY, BILAT BUNIONECTOMY,) - Immunization History Immunization Up to Date: Yes - Psycho/Social/Smoking Cessation Hx Anxiety: No Suicidal Ideation: No Smoking Status: Yes Smoking History: Former smoker Have you smoked in the past 12 months: No Number of Cigarettes Smoked Daily: 0 If you are a former smoker, when did you quit?: 2004 Information on smoking cessation initiated: No Hx Alcohol Use: No Drug/Substance Use Hx: No Substance Use Type: None Hx Substance Use Treatment: No Patient Lives Alone: No Review of Systems - Review of Systems Able to Perform ROS?: Yes Constitutional: No: Symptoms Reported HEENTM: No: Symptoms Reported Respiratory: Yes: SOB with Exertion. No: Orthopnea Cardiac (ROS): Yes: Chest Pain ABD/GI: Yes: Nausea, Vomiting, Indigestion : No: Symptoms Reported Musculoskeletal: No: Symptoms Reported Integumentary: No: Symptoms Reported Neurological: No: Symptoms reported Endocrine: No: Symptoms Reported Hematologic/Lymphatic: No: Symptoms Reported *Physical Exam - Vital Signs Last Vital Signs Temp Pulse Resp BP Pulse Ox 99.6 F 77 22 153/82 95 05/20/16 13:37 05/20/16 13:37 05/20/16 13:37 05/20/16 13:37 05/20/16 13:37 - Physical Exam General Appearance: Yes: Nourished, Appropriately Dressed. No: Apparent Distress HEENT: positive: SHANDRA. negative: EOMI Neck: positive: Supple Respiratory/Chest: positive: Lungs Clear, Normal Breath Sounds. negative: Respiratory Distress, Accessory Muscle Use Cardiovascular: positive: Regular Rhythm, Regular Rate. negative: Murmur Female Pelvic Exam: positive: other (diaper wet) Gastrointestinal/Abdominal: positive: Soft. negative: Tenderness Integumentary: positive: Normal Color, Warm, Moist Neurologic: positive: Normal Mood/Affect (appropriate for age and active), Motor Strength 5/5 (ambulatory) ED Treatment Course - LABORATORY CBC & Chemistry Diagram: 05/20/16 14:17 05/20/16 14:17 - ADDITIONAL ORDERS Additional order review: Laboratory Results 05/20/16 14:17 Sodium 143 Potassium 4.3 Chloride 107 Carbon Dioxide 26 Anion Gap 10 BUN 13 D Creatinine 1.1 H Creat Clearance w eGFR 50.67 Random Glucose 111 H D Calcium 8.4 L Total Bilirubin 0.3 D AST 47 H D ALT 29 D Alkaline Phosphatase 131 H Creatine Kinase 257 H D CK-MB (CK-2) 1.200 Troponin I 0.02 Total Protein 7.4 Albumin 3.4 05/20/16 14:17 RBC 3.98 MCV 89.4 MCHC 32.3 RDW 16.9 H MPV 8.2 Neutrophils % 49.7 D Lymphocytes % 38.5 D Monocytes % 10.4 H Eosinophils % 0.3 D Basophils % 1.1 - RADIOLOGY Radiology Studies Ordered: Category Date Time Status CHEST X-RAY PORTABLE* [RAD] Stat Radiology 05/20/16 16:03 Ordered Medical Decision Making - Medical Decision Making 05/20/16 15:10 Patient here for episodic 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 patient states intermittent chest pain to the midsternum radiating to back 2 weeks. Patient states was seen by travel registered nurse nicu on Tuesday and given steroids. Patient exam had no acute findings. Patient ordered for by mouth challenge. 05/20/16 16:10 Laboratory Tests 05/20/16 05/20/16 05/20/16 14:17 14:17 14:17 WBC 7.8 Hgb 11.5 Hct 35.6 Plt Count 323 Neutrophils % 49.7 D INR Pending Sodium 143 Potassium 4.3 Chloride 107 Carbon Dioxide 26 Anion Gap 10 BUN 13 D Creatinine 1.1 H Calcium 8.4 L AST 47 H D ALT 29 D Alkaline Phosphatase 131 H Creatine Kinase 257 H D Troponin I 0.02 05/20/16 17:28 Patient still complaining of epigastric to midsternal chest discomfort which she describes a burning aching sensation radiating to her back. Patient will be given a dose of morphine and will be admitted to telemetry under the hospitalist since Dr. Hernandez does not admit here. 05/20/16 17:31 *DC/Admit/Observation/Transfer Diagnosis at time of Disposition: Chest pain Qualifiers: Chest pain type: unspecified Qualified Code(s): R07.9 - Chest pain, unspecified Nausea and vomiting Qualifiers: Vomiting type: unspecified Vomiting Intractability: intractable Qualified Code( s): R11.2 - Nausea with vomiting, unspecified - Discharge Dispostion Admit: Yes
[2016-05-20] MEDS ORDERED: ONDANSETRON 4 MG/2 ML VIAL ONE (16:17)
[2016-05-20] MEDS ORDERED: morphine CARPU-JECT 2 MG/1 ML DISP.SYRIN IVPUSH ONE (17:32)
--- NOTE | 2016-05-20 17:49 | HP ---
CHIEF COMPLAINT: "i cant breathe well" PCP: Dr David Rousseau: Dr Hyde Rheum: Dr Kateryna Cannon Cards: Dr Fish HISTORY OF PRESENT ILLNESS: 61 year old female with PMH of asthma, lupus, seizure (last 2009), syncope, COPD, sleep apnea on cpap, type 2 DM, hyperlipidemia, hypothyroidism, recently hospitalized for asthma exacerbation and chest pain worked up for lupus pericarditis (trace pericard effusion found on tte) but more likley costochindritis, who presents to ED due to increased sob and chest pain x 2 w. Today she was coughing very had and experienced one episode of NBNB vomiting ( food contents), which happens occasionally when she has severe cough. Patient states that she began experiencing symptoms similar to her usual COPD exacerbation, including sob, exertional dyspnea, cough with clear sputum and diffuse dull chest pain exacerbated by movement of upper extremities and cough. She also noticed runny nose. Her chest pain is reproducible, waxing/waning, and radiating to back and shoulders. Its alleviated by sitting forward as usual. She saw Pulm a week ago and was placed on predispose taper. she took 3 days of prednisone 40 and one day of prednisone 20, which did not alleviate her symptoms. She noticed mild increase in LE edema. Her inhalers have not been helping. She denies sick contacts, palpitations, loc, weight gain or increase in usual orthopnea. She uses CPAP at home. Since last admission, she has f/u with rheumatology but was not placed on any new medication. She denies f/c, abd pain, diarrhea or dysuria. ER course was notable for: (1)ekg, cxr (2)labs (3)morphine, zofran Recent Travel: denies PAST MEDICAL HISTORY: as above PAST SURGICAL HISTORY: 3 c sections, cardiac cath w/o stents at [place], b/l ankle surgery, knee surgery Social History: lives with Smoking: past smoker quit 15 yrs ago Alcohol: past EtOH Drugs: Past marijuana, cocaine Family History: HTN, HLD, heart disease Allergies gabapentin [From Neurontin] Allergy (Verified 05/20/16 13:43) PALPITATIONS, PASSES OUT Penicillins Allergy (Verified 05/20/16 13:43) TONGUE Swelling phenytoin sodium [From Dilantin] Allergy (Verified 05/20/16 13:43) diarrhea/vomiting phenytoin sodium extended [From Dilantin] Allergy (Verified 05/20/16 13:43) theophylline [Theophylline] Allergy (Verified 05/20/16 13:43) diarrhea,SEIZURES HOME MEDICATIONS: Home Medications Medication Instructions Recorded Albuterol Sulfate Inhaler - 1 - 2 inh PO QID PRN 01/04/13 [Ventolin HFA Inhaler -] Atorvastatin Ca [Lipitor] 10 mg PO DAILY 10/20/15 Biotin [Hard Nails] 5,000 mcg PO DAILY 10/20/15 Budesonide/Formeterol Fumarate 1 inh PO BID 10/20/15 [SYMBICORT 160/4.5mcg -] Carbamazepine Xr [Tegretol XR -] 400 mg PO BID 10/20/15 Folic Acid 2 mg PO DAILY 10/20/15 Hydroxychloroquine Sulfate 200 mg PO BID 10/20/15 [Plaquenil] L.acidop,Daren,Lac,Rha/B.lac,Edmundo 625 mg PO DAILY 10/20/15 [Advanced Probiotic Capsule] Levothyroxine [Synthroid -] 50 mcg PO DAILY 10/20/15 Linaclotide [Linzess] 145 mcg PO DAILY 10/20/15 Meloxicam [Mobic (Nf) -] 15 mg PO DAILY 10/20/15 Methotrexate [Mexate -] 12.5 mg PO Q7D 10/20/15 Montelukast Na [Singulair -] 10 mg PO DAILY 10/20/15 Hyder-3 Fatty Acids [Hyder-3] 2 tab PO DAILY 10/20/15 Omeprazole [Prilosec] 40 mg PO DAILY 10/20/15 Sertraline HCl [Zoloft -] 100 mg PO DAILY 10/20/15 Topiramate [Trokendi Xr] 100 mg PO BID 10/20/15 Umeclidinium [place] [Incruse 62.5 mcg IH ASDIR 10/20/15 Ellipta] Insulin (Levemir) [Levemir Vial] 23 units SQ HS #24 ml 02/26/16 Insulin Sliding Scale [Novolog 1 vial SQ ACHS #200 units 02/26/16 Vial Sliding Scale -] Losartan Potassium [Cozaar -] 75 mg PO DAILY #60 tablet 02/26/16 Albuterol 2.5/Ipratropium 0.5 1 amp NEB QIDR #10 amp 03/09/16 [Duoneb -] Me-Thfolate Gluc/B12/Herb #236 1 each PO DAILY 05/20/16 [Rheumate Capsule] Methylprednisolone [Medrol Dose 20 mg PO ASDIR 05/20/16 Diomedes] REVIEW OF SYSTEMS CONSTITUTIONAL: Absent: fever, chills, diaphoresis, generalized weakness HEENT: Absent: throat pain, difficulty swallowing CARDIOVASCULAR: Absent: syncope, palpitations, irregular heart rate RESPIRATORY: Absent: stridor, hemoptysis GASTROINTESTINAL: Absent: abdominal pain, abdominal distension, diarrhea, constipation GENITOURINARY: Absent: dysuria MUSCULOSKELETAL: Absent: neck pain SKIN: Absent: rash, itching, pallor HEMATOLOGIC/IMMUNOLOGIC: Absent: frequent infections ENDOCRINE: Absent: unexplained weight gain NEUROLOGIC: Absent: focal weakness or paresthesias, dizziness, unsteady gait, seizure PSYCHIATRIC: Absent: anxiety, depression PHYSICAL EXAMINATION Vital Signs - 24 hr 05/20/16 13:37 Temperature 99.6 F Pulse Rate 77 Respiratory 22 Rate Blood Pressure 153/82 O2 Sat by Pulse 95 Oximetry (%) GENERAL: Awake, alert, and fully oriented, in no acute distress. HEAD: Normal with no signs of trauma. EYES: Pupils equal, round and reactive to light, extraocular movements intact, sclera anicteric, conjunctiva clear. EARS, NOSE, THROAT: nares patent, oropharynx clear without exudates. Moist mucous membranes. NECK: supple without lymphadenopathy, JVD, or masses. LUNGS: slighlty restricted air entry, mild wheezes at bases. sounds better that february admission HEART: Regular rate and rhythm, normal S1 and S2 without murmur, rub or gallop. ABDOMEN: Soft, nontender, not distended, normoactive bowel sounds MUSCULOSKELETAL: No CVA tenderness. UPPER EXTREMITIES: 2+ pulses, warm, well-perfused. No peripheral edema. LOWER EXTREMITIES: 2+ pulses, warm, well-perfused. No calf tenderness. No peripheral edema. NEUROLOGICAL: Cranial nerves II-XII intact. Normal speech. PSYCHIATRIC: Cooperative. Good eye contact. Appropriate mood and affect. SKIN: Warm, dry Laboratory Results - last 24 hr 05/20/16 05/20/16 05/20/16 14:17 14:17 14:17 WBC 7.8 RBC 3.98 Hgb 11.5 Hct 35.6 MCV 89.4 MCHC 32.3 RDW 16.9 H Plt Count 323 MPV 8.2 Neutrophils % 49.7 D Lymphocytes % 38.5 D Monocytes % 10.4 H Eosinophils % 0.3 D Basophils % 1.1 INR 1.04 Sodium 143 Potassium 4.3 Chloride 107 Carbon Dioxide 26 Anion Gap 10 BUN 13 D Creatinine 1.1 H Creat Clearance w eGFR 50.67 Random Glucose 111 H D Calcium 8.4 L Total Bilirubin 0.3 D AST 47 H D ALT 29 D Alkaline Phosphatase 131 H Creatine Kinase 257 H D CK-MB (CK-2) 1.200 Troponin I 0.02 B-Natriuretic Peptide Total Protein 7.4 Albumin 3.4 05/20/16 16:11 WBC RBC Hgb Hct MCV MCHC RDW Plt Count MPV Neutrophils % Lymphocytes % Monocytes % Eosinophils % Basophils % INR Sodium Potassium Chloride Carbon Dioxide Anion Gap BUN Creatinine Creat Clearance w eGFR Random Glucose Calcium Total Bilirubin AST ALT Alkaline Phosphatase Creatine Kinase CK-MB (CK-2) Troponin I B-Natriuretic Peptide 356.15 H Total Protein Albumin ASSESSMENT/PLAN: 61 year old female with PMH of asthma, lupus, seizure (last 2009), syncope, COPD, sleep apnea on cpap, type 2 DM, hyperlipidemia, hypothyroidism, recently hospitalized for asthma exacerbation and chest pain worked up for lupus pericarditis (trace pericard effusion found on tte) but more likley costochindritis, who presents to ED due to increased sob and chest pain x 2 w. Acute on chronic COPD exacerbation -mild; good air entry, minimal wheezes at bases -no evidence of infectious process; CXR unremarkable, afebrile, no leukocytosis -will give one does on IV medrol 40 mg and then taper on PO pred stating at 40 -duoneb tid and q4h prn -symbicort 160 -singulair 10 d Atypical chest pain -costochondritis vs respiratory muscle fatigue/soreness -reproducible -trop - x1, trend one more -ekg no evidence of ACS -ibuprofen GERD -protonix daily -maalox bid Sleep apnea -use her own CPAP at night Lupus -methotrexate on wednesdays -plaquenil HTN -losartan HX SZ -topiramate IDDM2 -levemir 18 am -novolog sliding scale -BMG HLD -atorvastatin Hypothyroidism -levothyroxine depression -sertaline -carbamazepine FEN no IVF lytes stable diabetic Na restricted diet PPX: SCD, PPI Dispo: obs med regina Problem List - Problem (1) COPD (chronic obstructive pulmonary disease) Code(s): J44.9 - CHRONIC OBSTRUCTIVE PULMONARY DISEASE, UNSPECIFIED Qualifiers : COPD type: unspecified COPD Qualified Code(s): J44.9 - Chronic obstructive pulmonary disease, unspecified (2) Nausea & vomiting Code(s): R11.2 - NAUSEA WITH VOMITING, UNSPECIFIED Qualifiers: Vomiting type: unspecified Vomiting Intractability: intractable Qualified Code(s): R11.2 - Nausea with vomiting, unspecified (3) Shortness of breath Code(s): R06.02 - SHORTNESS OF BREATH (4) Chest pain Code(s): R07.9 - CHEST PAIN, UNSPECIFIED Qualifiers: Chest pain type: unspecified Qualified Code(s): R07.9 - Chest pain, unspecified (5) Acute exacerbation of chronic obstructive pulmonary disease (COPD) Code(s): J44.1 - CHRONIC OBSTRUCTIVE PULMONARY DISEASE W (ACUTE) EXACERBATION (6) Asthma exacerbation Code(s): J45.901 - UNSPECIFIED ASTHMA WITH (ACUTE) EXACERBATION (7) CKD (chronic kidney disease) stage 3, GFR 30-59 ml/min Code(s): N18.3 - CHRONIC KIDNEY DISEASE, STAGE 3 (MODERATE) (8) Hypertension Code(s): I10 - ESSENTIAL (PRIMARY) HYPERTENSION Qualifiers: Hypertension type: essential hypertension Qualified Code(s): I10 - Essential (primary) hypertension (9) Hypothyroidism Code(s): E03.9 - HYPOTHYROIDISM, UNSPECIFIED Qualifiers: Hypothyroidism type: unspecified Qualified Code(s): E03.9 - Hypothyroidism, unspecified (10) Numbness and tingling in left arm Code(s): R20.0 - ANESTHESIA OF SKIN R20.2 - PARESTHESIA OF SKIN (11) SLE (systemic lupus erythematosus) Code(s): M32.9 - SYSTEMIC LUPUS ERYTHEMATOSUS, UNSPECIFIED (12) Sleep apnea, obstructive Code(s): G47.33 - OBSTRUCTIVE SLEEP APNEA (ADULT) (PEDIATRIC) (13) Type 2 diabetes mellitus Code(s): E11.9 - TYPE 2 DIABETES MELLITUS WITHOUT COMPLICATIONS Qualifiers: Diabetes mellitus complication status: with kidney complications Diabetes mellitus complication detail: with chronic kidney disease Chronic kidney disease stage: stage 3 (moderate) (14) Atypical chest pain Code(s): R07.89 - OTHER CHEST PAIN (15) Diabetic peripheral neuropathy Code(s): E11.42 - TYPE 2 DIABETES MELLITUS WITH DIABETIC POLYNEUROPATHY (16) Morbid obesity Code(s): E66.01 - MORBID (SEVERE) OBESITY DUE TO EXCESS CALORIES (17) Seizure disorder Code(s): G40.909 - EPILEPSY, UNSP, NOT INTRACTABLE, WITHOUT STATUS EPILEPTICUS Visit type - Emergency Visit Emergency Visit: Yes ED Registration Date: 05/20/16 Care time: The patient presented to the Emergency Department on the above date and was hospitalized for further evaluation of their emergent condition. - New Patient This patient is new to me today: No - Critical Care Critical Care patient: No
[2016-05-20] MEDS ORDERED: morphine CARPU-JECT 2 MG/1 ML DISP.SYRIN ONE (18:05)
[2016-05-20] MEDS ORDERED: methylPREDNISolone NA SUCC 40 MG/1 ML VIAL IVPB ONE (19:11)
[2016-05-20] MEDS ORDERED: ALBUTEROL SO4 2.5/IPRATROPIUM 0.5 INH SOL 3 ML VIAL.NEB. NEB PRN (19:12)
[2016-05-20] MEDS ORDERED: IBUPROFEN 400 MG TABLET (FP) PO PRN (19:13)
[2016-05-20] MEDS ORDERED: PATIENT'S OWN MEDICATION (NON-FORMULARY) (Umeclidinium Bromide [Incruse Ellipta] 62.5 MCG) IH SCH (19:15)
--- NOTE | 2016-05-20 19:15 | PN ---
Teaching Attending Note Name of Resident: Nina Pearson ATTENDING PHYSICIAN STATEMENT I saw and evaluated the patient. I reviewed the resident's note and discussed the case with the resident. I agree with the resident's findings and plan as documented. SUBJECTIVE: CC: Chest pain HPI : 61 y/o lady with h/o HTN, COPD , DANY on CPAP, DM , questionable h/o CHF , DM , LUpus , , and other medical problems who presented with CP. 2 weeks ago she started having cough , with retrosternal CP , which is there most of the time , no hemoptysis , no fever or chills, no purulent sputum production . pcp is worse with upper body movements and with breathing . she denies any sick contact or recent sore throat. she was started on steroids po , few days ago , now down on 20 mg daily. 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 OBJECTIVE: NAD , AAOx3 HEENT: NC , AT, symmetric face , no facial droop, slightly congested oropharynx , MMM. no JVD, no LAP in neck CV: RRR, no MRG Lungs : minimal wheezes at bases , no crackles . good air entry Abd : obese , soft, NT, ND , minimal bruises on abd at site of insulin injections . NL BS Ext : trace edema . no TTP . slight erythema Neuro: Symmetric face , no facial droop, tongue at mid line, strength 5/5 in upper ext prox and distally , 4/5 in R hip flexion ( old ) , 5/5 in LLE prox and distal . sensation to light touch decreased in R upper ext . ASSESSMENT AND PLAN: 61 y/o lady with h/o HTN, COPD , DANY on CPAP, DM , questionable h/o CHF , DM , Lupus , and other medical problems who presented with CP. 1- Acute COPD exacerbation: did not get much improvement on steroids and inhalers as out p t no evidence of PNA , no evidence of fluid overload on exam. - Give one dose of solu-Medrol , then prednisone. - Duo-Nebs TID and PRN - cont singular and symbicort - hold home spiriva 2- Chest pain : atypcal, unlikely cardiac. EKG with no acute ischemic changes . likely MS due to cough , also posible GI ( gastritis while on steroids ) last stress test in 5/16 with no clear report , prior to that 2012 with no ischemia last echo in 03/05/16 with NL EF and trivial pericardial effusion , Echo on with LVH , nl EF - repeat trop x 1 - give PPI and maalox 3- HTN: cont losartan 4-DM: cont home lantus 17 units in AM and SSI 5- LUpus , cont MTX q tuesday and plaqunil
[2016-05-20] MEDS ORDERED: PATIENT'S OWN MEDICATION (NON-FORMULARY) (Topiramate [Trokendi Xr] 100 MG) PO SCH (22:00)
[2016-05-20] MEDS ORDERED: INSULIN SLIDING SCALE (NOVOLOG) 1 VIAL SQ SCH (22:00)
[2016-05-21] MEDS ORDERED: methylPREDNISolone NA SUCC 125 MG/2 ML VIAL ONE (00:24)
[2016-05-21] MEDS: ALBUTEROL SO4 2.5/IPRATROPIUM 0.5 INH SOL 3 ML VIAL.NEB. NEB SCH ×4 (00:30→22:10)
[2016-05-21] MEDS: OMEGA-3 ACID ETHYL ESTERS (FATTY-ACIDS) 1 GM CAPSULE (FP) PO SCH ×3 (00:47→22:56)
[2016-05-21] MEDS: INSULIN SLIDING SCALE (NOVOLOG) 1 VIAL SQ SCH ×5 (00:47→22:33)
[2016-05-21] MEDS: CYCLOBENZAPRINE HCL 10 MG TABLET (FP) PO SCH ×3 (00:47→22:56)
[2016-05-21] MEDS: ATORVASTATIN CA 10 MG TABLET (FP) PO SCH ×2 (00:47→22:56)
[2016-05-21] MEDS: SENNOSIDES 8.6MG TABLET (FP) PO SCH ×2 (00:48→22:56)
[2016-05-21] MEDS: BUDESONIDE/FORMETEROL FUMARATE 160/4.5 mcg INHALER IH SCH ×3 (00:48→22:57)
[2016-05-21] MEDS: carBAMazepine XR 400 MG TAB.ER.12H PO SCH ×3 (00:48→22:56)
[2016-05-21] MEDS: TOPIRAMATE 100 MG TABLET PO SCH ×3 (00:49→22:56)
[2016-05-21] MEDS: HYDROXYCHLOROQUINE SO4 200 MG TABLET (FP) PO SCH ×3 (00:49→22:56)
[2016-05-21] MEDS: MAG HYDROX/AL HYDROX/SIMETH 30 ML UNIT-DOSE CUP PO SCH ×3 (00:54→22:57)
[2016-05-21] MEDS: LEVOTHYROXINE NA 50 MCG TABLET (FP) PO SCH (06:55)
[2016-05-21 07:55] LABS: CALCIUM 8.5 mg/dL (8.5-10.1); COCKROFT - GAULT 101.252; CREATININE 1.1 mg/dL (0.55-1.02); MAGNESIUM 2.1 mg/dL (1.8-2.4); PHOSPHOROUS 3.6 mg/dL (2.5-4.9)
[2016-05-21 09:26] LABS: WHITE BLOOD COUNT 7.2 K/mm3 (4.0-10.0)
[2016-05-21 09:27] LABS: MEAN CELL VOLUME 90.5 fl (80-96)
[2016-05-21 09:28] LABS: MCHC 32.1 g/dl (32.0-36.0); MEAN PLT VOLUME 9.2 fl (7.5-11.1); RDW 16.4 % (11.6-15.6)
[2016-05-21] MEDS: LACTOBACILLUS ACIDOPHILUS 1 EACH TAB (FP) PO SCH (09:54)
[2016-05-21] MEDS: LOSARTAN POTASSIUM 50 MG TABLET (FP) PO SCH (09:54)
[2016-05-21] MEDS: MONTELUKAST NA 10 MG TABLET PO SCH (09:55)
[2016-05-21] MEDS: PANTOPRAZOLE 40 MG TABLET (FP) PO SCH (09:55)
[2016-05-21] MEDS: FOLIC ACID 1 MG TABLET (FP) PO SCH (09:55)
[2016-05-21] MEDS: SERTRALINE HCL 50 MG TABLET (FP) PO SCH (09:56)
[2016-05-21] MEDS ORDERED: PT OWN MED DRAWER 7, Y5N ONE (09:57)
[2016-05-21] MEDS ORDERED: HERB PO SCH (10:00)
[2016-05-21] MEDS ORDERED: PATIENT'S OWN MEDICATION (NON-FORMULARY) (Sertraline Hcl 100 MG) PO SCH (10:00)
[2016-05-21] MEDS ORDERED: PATIENT'S OWN MEDICATION (NON-FORMULARY) (Meloxicam 15 MG) PO SCH (10:00)
[2016-05-21] MEDS ORDERED: B12 PO SCH (10:00)
[2016-05-21] MEDS ORDERED: OMEGA PO SCH (10:00)
[2016-05-21] MEDS ORDERED: PATIENT'S OWN MEDICATION (NON-FORMULARY) (Linaclotide [Linzess] 145 MCG) PO SCH (10:00)
[2016-05-21] MEDS ORDERED: BIOTIN 2500 MCG PO SCH (10:00)
[2016-05-21] MEDS ORDERED: [UNRECOGNIZED DRUG - OTHER] PO SCH (10:00)
[2016-05-21 10:19] LABS: MCHC 32.4 g/dl (32.0-36.0); MEAN CELL VOLUME 89.7 fl (80-96); PLATELET COUNT 291 K/MM3 (134-434); RDW 15.7 % (11.6-15.6); WHITE BLOOD COUNT 6.6 K/mm3 (4.0-10.0)
[2016-05-21] MEDS: INSULIN DETEMIR 100 UNITS/ML MDV SQ SCH (11:14)
[2016-05-21] MEDS ORDERED: methylPREDNISolone NA SUCC 40 MG/1 ML VIAL IVPB ONE (13:45)
--- NOTE | 2016-05-21 16:25 | PN ---
Physical Exam: SUBJECTIVE: Patient seen and examined Patient resting in bed NAD. afbrile hemodynamiclly stable. States her SOB is the same and her chest still hurts, still reproducible. no tele events. states she still has cough. Denies palpitations, abd pain, n/v, diarrhea. OBJECTIVE: Vital Signs Period Temp Pulse Resp BP Sys/Oconnell Pulse Ox Last 24 Hr 97.2 F-99.4 F 63-82 20-20 110-136/50-87 95-95 GENERAL: Awake, alert, and fully oriented, in no acute distress. HEAD: Normal with no signs of trauma. EYES: Pupils equal, round and reactive to light, extraocular movements intact, sclera anicteric, conjunctiva clear. EARS, NOSE, THROAT: nares patent, oropharynx clear without exudates. Moist mucous membranes. NECK: supple without lymphadenopathy, JVD, or masses. LUNGS: more restricted air entry, no wheezes. slightly worse than yesterday HEART: Regular rate and rhythm, normal S1 and S2 without murmur, rub or gallop. ABDOMEN: Soft, nontender, not distended, normoactive bowel sounds MUSCULOSKELETAL: No CVA tenderness. UPPER EXTREMITIES: 2+ pulses, warm, well-perfused. No peripheral edema. LOWER EXTREMITIES: 2+ pulses, warm, well-perfused. No calf tenderness. No peripheral edema. NEUROLOGICAL: Cranial nerves II-XII intact. Normal speech. PSYCHIATRIC: Cooperative. Good eye contact. Appropriate mood and affect. SKIN: Warm, dry Laboratory Results - last 24 hr 05/21/16 05/21/16 05/21/16 00:06 00:30 05:35 WBC 7.2 RBC 4.05 Hgb 11.8 Hct 36.6 MCV 90.5 MCHC 32.1 RDW 16.4 H Plt Count No Result Required. MPV 9.2 D Sodium Potassium Chloride Carbon Dioxide Anion Gap BUN Creatinine POC Glucometer 154 Random Glucose Calcium Phosphorus Magnesium Troponin I 0.02 05/21/16 05/21/16 05/21/16 05:35 06:46 09:56 WBC 6.6 RBC 3.94 Hgb 11.4 Hct 35.3 MCV 89.7 MCHC 32.4 RDW 15.7 H Plt Count 291 MPV 8.0 D Sodium 141 Potassium 4.7 Chloride 107 Carbon Dioxide 23 Anion Gap 11 BUN 13 Creatinine 1.1 H POC Glucometer 179 Random Glucose 162 H D Calcium 8.5 Phosphorus 3.6 Magnesium 2.1 Troponin I 05/21/16 05/21/16 11:10 15:52 WBC RBC Hgb Hct MCV MCHC RDW Plt Count MPV Sodium Potassium Chloride Carbon Dioxide Anion Gap BUN Creatinine POC Glucometer 136 169 Random Glucose Calcium Phosphorus Magnesium Troponin I Active Medications Generic Name Dose Route Start Last Admin Trade Name Freq PRN Reason Stop Dose Admin Al Hydroxide/Mg Hydroxide 30 ml 05/20/16 22:00 05/21/16 09:56 Mylanta Oral Suspension - PO 30 ml BID DONTA Administration Albuterol/Ipratropium 1 amp 05/20/16 19:12 Duoneb - NEB Q4H PRN SHORTNESS OF BREATH Albuterol/Ipratropium 1 amp 05/20/16 22:00 05/21/16 13:48 Duoneb - NEB 1 amp TIDR DONTA Administration Atorvastatin Calcium 10 mg 05/20/16 22:00 05/21/16 00:47 Lipitor - PO 10 mg HS DONTA Administration Budesonide/Formoterol Fumarate 1 puff 05/20/16 22:00 05/21/16 10:00 Symbicort 160/4.5mcg - IH 1 puff BID DONTA Administration Carbamazepine 400 mg 05/20/16 22:00 05/21/16 10:01 Tegretol Xr - PO 400 mg BID DONTA Administration Cyclobenzaprine HCl 10 mg 05/20/16 22:00 05/21/16 09:54 Flexeril - PO 10 mg BID DONTA Administration Folic Acid 2 mg 05/21/16 10:00 05/21/16 09:55 Folic Acid - PO 2 mg DAILY DONTA Administration Hydroxychloroquine Sulfate 200 mg 05/20/16 22:00 05/21/16 10:00 Plaquenil - PO 200 mg BID DONTA Administration Insulin Aspart 1 vial 05/20/16 22:00 05/21/16 11:12 Novolog Vial Sliding Scale - SQ Not Given ACHS [facility] Protocol Insulin Detemir 18 units 05/21/16 10:00 05/21/16 11:14 Levemir Vial SQ 18 units DAILY DONTA Administration Lactobacillus Acidophilus 1 tab 05/21/16 10:00 05/21/16 09:54 Bacid - PO 1 tab DAILY DONTA Administration Levothyroxine Sodium 50 mcg 05/21/16 07:00 05/21/16 06:55 Synthroid - PO 50 mcg DAILY@0700 DONTA Administration Losartan Potassium 50 mg 05/21/16 10:00 05/21/16 09:54 Cozaar - PO 50 mg DAILY DONTA Administration Montelukast Sodium 10 mg 05/21/16 10:00 05/21/16 09:55 Singulair - PO 10 mg DAILY DONTA Administration Non-Formulary Medication 2,500 mcg 05/21/16 10:00 Biotin [Hard Nails] PO DAILY DONTA Non-Formulary Medication 145 mcg 05/21/16 10:00 Linaclotide [Linzess] PO DAILY DONTA Non-Formulary Medication 1 each 05/21/16 10:00 Me-Thfolate Gluc/B12/Herb #236 [Rheumate Capsule] PO DAILY DONTA Non-Formulary Medication 15 mg 05/21/16 10:00 Meloxicam PO DAILY DONTA Non-Formulary Medication 62.5 mcg 05/20/16 19:15 Umeclidinium Bath [Incruse Ellipta] IH ASDIR [facility] Zrxbi-6-[id number] Ethyl Esters 2 gm 05/20/16 22:00 05/21/16 09:53 Lovaza - PO 2 gm BID DONTA Administration Pantoprazole Sodium 40 mg 05/21/16 10:00 05/21/16 09:55 Protonix - PO 40 mg DAILY DONTA Administration Senna 2 tab 05/20/16 22:00 05/21/16 00:48 Senna - PO 2 tab HS DONTA Administration Sertraline HCl 100 mg 05/21/16 10:00 05/21/16 09:56 Zoloft - PO 100 mg DAILY DONTA Administration Topiramate 100 mg 05/20/16 22:00 05/21/16 10:01 Topamax - PO 100 mg BID DONTA Administration ASSESSMENT/PLAN: 61 year old female with PMH of asthma, lupus, seizure (last 2009), syncope, COPD, sleep apnea on cpap, type 2 DM, hyperlipidemia, hypothyroidism, recently hospitalized for asthma exacerbation and chest pain worked up for lupus pericarditis (trace pericard effusion found on tte) but more likley costochindritis, who presents to ED due to increased sob and chest pain x 2 w. Acute on chronic COPD exacerbation -no evidence of infectious process; CXR unremarkable, afebrile, no leukocytosis -IV medrol 40 bid -Azithromycin dauily -duoneb tid and q4h prn -symbicort 160 -singulair 10 d Atypical chest pain -costochondritis vs respiratory muscle fatigue/soreness -reproducible -trop - x2 -ekg no evidence of ACS GERD -protonix daily -maalox bid Sleep apnea -use her own CPAP at night Lupus -methotrexate on wednesdays -plaquenil HTN -losartan HX SZ -topiramate IDDM2 -levemir 18 am -novolog sliding scale -BMG HLD -atorvastatin Hypothyroidism -levothyroxine depression -sertaline -carbamazepine FEN no IVF lytes stable diabetic Na restricted diet PPX: SCD, PPI Dispo: obs med regina Problem List - Problems (1) COPD (chronic obstructive pulmonary disease) Code(s): J44.9 - CHRONIC OBSTRUCTIVE PULMONARY DISEASE, UNSPECIFIED Qualifiers : COPD type: unspecified COPD Qualified Code(s): J44.9 - Chronic obstructive pulmonary disease, unspecified (2) Nausea & vomiting Code(s): R11.2 - NAUSEA WITH VOMITING, UNSPECIFIED Qualifiers: Vomiting type: unspecified Vomiting Intractability: intractable Qualified Code(s): R11.2 - Nausea with vomiting, unspecified (3) Shortness of breath Code(s): R06.02 - SHORTNESS OF BREATH (4) Chest pain Code(s): R07.9 - CHEST PAIN, UNSPECIFIED Qualifiers: Chest pain type: unspecified Qualified Code(s): R07.9 - Chest pain, unspecified (5) Acute exacerbation of chronic obstructive pulmonary disease (COPD) Code(s): J44.1 - CHRONIC OBSTRUCTIVE PULMONARY DISEASE W (ACUTE) EXACERBATION (6) Asthma exacerbation Code(s): J45.901 - UNSPECIFIED ASTHMA WITH (ACUTE) EXACERBATION (7) CKD (chronic kidney disease) stage 3, GFR 30-59 ml/min Code(s): N18.3 - CHRONIC KIDNEY DISEASE, STAGE 3 (MODERATE) (8) Hypertension Code(s): I10 - ESSENTIAL (PRIMARY) HYPERTENSION Qualifiers: Hypertension type: essential hypertension Qualified Code(s): I10 - Essential (primary) hypertension (9) Hypothyroidism Code(s): E03.9 - HYPOTHYROIDISM, UNSPECIFIED Qualifiers: Hypothyroidism type: unspecified Qualified Code(s): E03.9 - Hypothyroidism, unspecified (10) Numbness and tingling in left arm Code(s): R20.0 - ANESTHESIA OF SKIN R20.2 - PARESTHESIA OF SKIN (11) SLE (systemic lupus erythematosus) Code(s): M32.9 - SYSTEMIC LUPUS ERYTHEMATOSUS, UNSPECIFIED (12) Sleep apnea, obstructive Code(s): G47.33 - OBSTRUCTIVE SLEEP APNEA (ADULT) (PEDIATRIC) (13) Type 2 diabetes mellitus Code(s): E11.9 - TYPE 2 DIABETES MELLITUS WITHOUT COMPLICATIONS Qualifiers: Diabetes mellitus complication status: with kidney complications Diabetes mellitus complication detail: with chronic kidney disease Chronic kidney disease stage: stage 3 (moderate) (14) Atypical chest pain Code(s): R07.89 - OTHER CHEST PAIN (15) Diabetic peripheral neuropathy Code(s): E11.42 - TYPE 2 DIABETES MELLITUS WITH DIABETIC POLYNEUROPATHY (16) Morbid obesity Code(s): E66.01 - MORBID (SEVERE) OBESITY DUE TO EXCESS CALORIES (17) Seizure disorder Code(s): G40.909 - EPILEPSY, UNSP, NOT INTRACTABLE, WITHOUT STATUS EPILEPTICUS Visit type - Emergency Visit Emergency Visit: Yes ED Registration Date: 05/20/16 Care time: The patient presented to the Emergency Department on the above date and was hospitalized for further evaluation of their emergent condition. - New Patient This patient is new to me today: No - Critical Care Critical Care patient: No - Discharge Referral Referred to [facility] Med P.C.: No
--- NOTE | 2016-05-21 18:01 | PN ---
Teaching Attending Note Name of Resident: Nina Pearson ATTENDING PHYSICIAN STATEMENT I saw and evaluated the patient. I reviewed the resident's note and discussed the case with the resident. I agree with the resident's findings and plan as documented. SUBJECTIVE: no fever or chills. no abd pain . cont to have chest pain despite waking her up from deep sleep . cont to have SOB OBJECTIVE: NAD , AAOx3 HEENT: NC , AT, MMM. no JVD CV: RRR, no MRG Lungs: decreased air entry on R side . good air entry on L side Ext : trace edema . no TTP . slight erythema ASSESSMENT AND PLAN: 61 y/o lady with h/o HTN, COPD , DANY on CPAP, DM , questionable h/o CHF , DM , Lupus , and other medical problems who presented with CP. 1- Acute COPD exacerbation: worse lung exam today - Switch to IV steroids 40 BID. - cont Duo-Nebs TID and PRN - cont singular and symbicort - Hold home spiriva - azithro x 3 days for anti-inflammatory effects 2- Chest pain : atypical, unlikely cardiac.EKG with no ischemic changes. likely has GERD/gastritis. - Repeat trop x 1 - cont PPI and maalox 3- HTN: cont losartan 4-DM: cont home lantus and SSI 5- Lupus , cont MTX q tuesday and plaqunil HLOC
[2016-05-21] MEDS: AZITHROMYCIN IVPB 250 ML IVPB SCH (19:02)
[2016-05-21] MEDS: methylPREDNISolone NA SUCC 40 MG/1 ML VIAL IVPB SCH (22:57)
[2016-05-22] MEDS: ALBUTEROL SO4 2.5/IPRATROPIUM 0.5 INH SOL 3 ML VIAL.NEB. NEB SCH ×4 (06:35→23:15)
[2016-05-22] MEDS: INSULIN SLIDING SCALE (NOVOLOG) 1 VIAL SQ SCH ×4 (06:44→22:47)
[2016-05-22] MEDS: LEVOTHYROXINE NA 50 MCG TABLET (FP) PO SCH (06:44)
[2016-05-22 07:48] LABS: BASOPHIL 0.9 % (0-2.0); MCH 28.9 pg (25.7-33.7); MCHC 32.1 g/dl (32.0-36.0); MEAN PLT VOLUME 8.2 fl (7.5-11.1); PLATELET COUNT 295 K/MM3 (134-434); RDW 15.8 % (11.6-15.6); WHITE BLOOD COUNT 7.7 K/mm3 (4.0-10.0)
[2016-05-22 08:17] LABS: CALCIUM 9.1 mg/dL (8.5-10.1); COCKROFT - GAULT 101.252; CREATININE 1.1 mg/dL (0.55-1.02)
[2016-05-22] MEDS: PANTOPRAZOLE 40 MG TABLET (FP) PO SCH (09:57)
[2016-05-22] MEDS: AZITHROMYCIN IVPB 250 ML IVPB SCH (09:57)
[2016-05-22] MEDS: methylPREDNISolone NA SUCC 40 MG/1 ML VIAL IVPB SCH ×2 (09:57→22:46)
[2016-05-22] MEDS: LOSARTAN POTASSIUM 50 MG TABLET (FP) PO SCH (09:57)
[2016-05-22] MEDS: OMEGA-3 ACID ETHYL ESTERS (FATTY-ACIDS) 1 GM CAPSULE (FP) PO SCH ×2 (09:57→22:46)
[2016-05-22] MEDS: MAG HYDROX/AL HYDROX/SIMETH 30 ML UNIT-DOSE CUP PO SCH ×2 (09:57→22:46)
[2016-05-22] MEDS: CYCLOBENZAPRINE HCL 10 MG TABLET (FP) PO SCH ×2 (09:57→22:46)
[2016-05-22] MEDS: FOLIC ACID 1 MG TABLET (FP) PO SCH (09:57)
[2016-05-22] MEDS: MONTELUKAST NA 10 MG TABLET PO SCH (09:58)
[2016-05-22] MEDS: carBAMazepine XR 400 MG TAB.ER.12H PO SCH ×2 (09:58→22:47)
[2016-05-22] MEDS: SERTRALINE HCL 50 MG TABLET (FP) PO SCH (09:58)
[2016-05-22] MEDS: HYDROXYCHLOROQUINE SO4 200 MG TABLET (FP) PO SCH ×2 (09:58→22:47)
[2016-05-22] MEDS: LACTOBACILLUS ACIDOPHILUS 1 EACH TAB (FP) PO SCH (09:58)
[2016-05-22] MEDS: BUDESONIDE/FORMETEROL FUMARATE 160/4.5 mcg INHALER IH SCH ×2 (09:59→22:55)
[2016-05-22] MEDS: TOPIRAMATE 100 MG TABLET PO SCH ×2 (09:59→22:47)
[2016-05-22] MEDS: INSULIN DETEMIR 100 UNITS/ML MDV SQ SCH (11:44)
--- NOTE | 2016-05-22 12:06 | PN ---
Progress Note (short form) - Note Progress Note: Subjective: no fever or chills, no abd pain , Chest pain has improved . SOB has slightly improved Objective: Vital Signs: Last Vital Signs Temp Pulse Resp BP Pulse Ox 98.2 F 74 18 142/74 96 05/22/16 09:54 05/22/16 09:54 05/22/16 09:54 05/22/16 09:54 05/21/16 19:00 Laboratory Results - last 24 hr 05/21/16 05/21/16 05/22/16 15:52 22:29 05:35 WBC 7.7 RBC 3.91 Hgb 11.3 Hct 35.2 MCV 90.0 MCHC 32.1 RDW 15.8 H Plt Count 295 MPV 8.2 Neutrophils % 74.0 D Lymphocytes % 21.8 D Monocytes % 3.3 L Eosinophils % 0.0 D Basophils % 0.9 Sodium Potassium Chloride Carbon Dioxide Anion Gap BUN Creatinine POC Glucometer 169 150 Random Glucose Calcium 05/22/16 05/22/16 05:35 06:24 WBC RBC Hgb Hct MCV MCHC RDW Plt Count MPV Neutrophils % Lymphocytes % Monocytes % Eosinophils % Basophils % Sodium 141 Potassium 4.6 Chloride 105 Carbon Dioxide 25 Anion Gap 11 BUN 16 D Creatinine 1.1 H POC Glucometer 202 Random Glucose 210 H D Calcium 9.1 Physical Exam: NAD , AAOx3 HEENT: NC , AT, MMM. no JVD CV: RRR, no MRG Lungs: improved air entry today , scattered wheezes Ext : no edema , no erythema ASSESSMENT AND PLAN: 61 y/o lady with h/o HTN, COPD , DANY on CPAP, DM , questionable h/o CHF , DM , Lupus , and other medical problems who presented with CP. 1- Acute COPD exacerbation: worse lung exam today - cont IV steroids 40 BID. - increase standing Duo-Nebs to QID - cont singular and symbicort - Hold home spiriva - Azithro x 3 days for anti-inflammatory effects ( day 2 ) 2- Atypical Chest pain : likely has GERD/gastritis. - Repeat trop x 1. - cont PPI and maalox 3- HTN: cont losartan 4-DM: cont home lantus and SSI 5- Lupus , cont MTX q tuesday and plaqunil will re-assess tomorrow for possible dc Visit type - Emergency Visit Emergency Visit: Yes ED Registration Date: 05/21/16 Care time: The patient presented to the Emergency Department on the above date and was hospitalized for further evaluation of their emergent condition. - New Patient This patient is new to me today: No - Critical Care Critical Care patient: No
[2016-05-22] MEDS: ATORVASTATIN CA 10 MG TABLET (FP) PO SCH (22:46)
[2016-05-22] MEDS: SENNOSIDES 8.6MG TABLET (FP) PO SCH (22:46)
[2016-05-23] MEDS ORDERED: ACETAMINOPHEN 325 MG TABLET (FP) PO ONE (03:15)
[2016-05-23] MEDS: ALBUTEROL SO4 2.5/IPRATROPIUM 0.5 INH SOL 3 ML VIAL.NEB. NEB SCH ×3 (06:10→17:56)
[2016-05-23] MEDS ORDERED: oxyCODONE HCL 5 MG TABLET PO ONE (06:31)
[2016-05-23] MEDS: LEVOTHYROXINE NA 50 MCG TABLET (FP) PO SCH (06:39)
[2016-05-23] MEDS ORDERED: PT OWN MED DRAWER 7, Y5N ONE (11:51)
[2016-05-23] MEDS ORDERED: AZITHROMYCIN 250 MG TABLET (FP) PO ONE (11:54)
[2016-05-23] MEDS: CYCLOBENZAPRINE HCL 10 MG TABLET (FP) PO SCH (11:54)
[2016-05-23] MEDS: SERTRALINE HCL 50 MG TABLET (FP) PO SCH (11:59)
[2016-05-23] MEDS: FOLIC ACID 1 MG TABLET (FP) PO SCH (11:59)
[2016-05-23] MEDS: OMEGA-3 ACID ETHYL ESTERS (FATTY-ACIDS) 1 GM CAPSULE (FP) PO SCH (12:00)
[2016-05-23] MEDS: INSULIN SLIDING SCALE (NOVOLOG) 1 VIAL SQ SCH ×2 (12:00→17:32)
[2016-05-23] MEDS: PANTOPRAZOLE 40 MG TABLET (FP) PO SCH (12:00)
[2016-05-23] MEDS: LOSARTAN POTASSIUM 50 MG TABLET (FP) PO SCH (12:00)
[2016-05-23] MEDS: methylPREDNISolone NA SUCC 40 MG/1 ML VIAL IVPB SCH (12:00)
[2016-05-23] MEDS: MONTELUKAST NA 10 MG TABLET PO SCH (12:00)
[2016-05-23] MEDS: LACTOBACILLUS ACIDOPHILUS 1 EACH TAB (FP) PO SCH (12:00)
[2016-05-23] MEDS: TOPIRAMATE 100 MG TABLET PO SCH (12:01)
[2016-05-23] MEDS: carBAMazepine XR 400 MG TAB.ER.12H PO SCH (12:01)
[2016-05-23] MEDS: MAG HYDROX/AL HYDROX/SIMETH 30 ML UNIT-DOSE CUP PO SCH (12:01)
[2016-05-23] MEDS: HYDROXYCHLOROQUINE SO4 200 MG TABLET (FP) PO SCH (12:01)
[2016-05-23] MEDS: AZITHROMYCIN IVPB 250 ML IVPB SCH (12:02)
[2016-05-23] MEDS: BUDESONIDE/FORMETEROL FUMARATE 160/4.5 mcg INHALER IH SCH (12:03)
[2016-05-23] MEDS: INSULIN DETEMIR 100 UNITS/ML MDV SQ SCH (12:11)
--- NOTE | 2016-05-23 17:05 | DS ---
Physical Examination Vital Signs: Vital Signs Temperature 98.1 F 05/23/16 10:00 Pulse Rate 88 05/23/16 10:00 Respiratory Rate 18 05/23/16 10:00 Blood Pressure 110/48 05/23/16 10:00 O2 Sat by Pulse Oximetry (%) 98 05/23/16 03:00 Findings/Remarks: no SOB , feels better , exam : NAD , AAOx3 HEENT: NC , AT, MMM. no JVD CV: RRR, no MRG Lungs:much improved air entry today , no wheezes heard Ext : no edema , no erythema Labs: CBC, BMP 05/22/16 05:35 05/22/16 05:35 Discharge Summary Reason For Visit: CHEST PAIN Current Active Problems Atypical chest pain (Acute) COPD (chronic obstructive pulmonary disease) (Acute) Chest pain (Acute) CKD (chronic kidney disease) stage 3, GFR 30-59 ml/min (Chronic) Sleep apnea, obstructive (Chronic) Hospital Course: 61 y/o lady with h/o HTN, COPD , DANY on CPAP, DM , questionable h/o CHF , DM , Lupus , and other medical problems who presented with CP. Her chest pain was felt to be atypical due to GERD exacerbated by steroid use . her EKG did nto show acute ischemic changes and het honorio did not show any arrhythmias her CP has resolved today , with PPI and maalox . It was not felt to be due to lupus flare or pericarditis , or ACS . She was found to be in acute COPD exacerbation , and was started on IV steroids and Nebs with significant improvement in her sx she was given azithro x 3 days and dc on steroid taper to follow wit Dr. Vega . Cxray did not show any infiltrate she was continued on all her home medications as pre-admission routine dispo : Home f/u PCP and Pulm condition improved time spent 40 min Condition: Improved - Instructions Diet, Activity, Other Instructions: please follow with Dr. Hernandez and Dr. Hyde in 1 week - take your prednisone as prescribed ( 40 mg daily x 3 days then 30 mg days for 3 days , then 20 mg daily for 3 days then 10 mg daily for 3 days then stop ) - DO NOT stop your prednisone abruptly as it can cause hypotensionand even - consult with Dr. 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 Referrals: Goran Hernandez MD [Primary Care Provider] - Morgan Hyde MD [Staff Physician] - 1 Week Disposition: HOME - Home Medications Comprehensive Discharge Medication List: Ambulatory Orders Albuterol Sulfate Inhaler - [Ventolin HFA Inhaler -] 1 - 2 inh PO QID PRN Atorvastatin Ca [Lipitor] 10 mg PO DAILY 10/20/15 Biotin [Hard Nails] 5,000 mcg PO DAILY 10/20/15 Budesonide/Formeterol Fumarate [SYMBICORT 160/4.5mcg -] 1 inh PO BID 10/20/15 Carbamazepine Xr [Tegretol XR -] 400 mg PO BID 10/20/15 Folic Acid 2 mg PO DAILY 10/20/15 Hydroxychloroquine Sulfate [Plaquenil] 200 mg PO BID 10/20/15 L.acidop,Daren,Lac,Rha/B.lac,Edmundo [Advanced Probiotic Capsule] 625 mg PO DAILY 06/29 Levothyroxine [Synthroid -] 50 mcg PO DAILY 10/20/15 Linaclotide [Linzess] 145 mcg PO DAILY 10/20/15 Methotrexate [Mexate -] 12.5 mg PO Q7D 10/20/15 Montelukast Na [Singulair -] 10 mg PO DAILY 10/20/15 Independence-3 Fatty Acids [Independence-3] 2 tab PO DAILY 10/20/15 Omeprazole [Prilosec] 40 mg PO DAILY 10/20/15 Sertraline HCl [Zoloft -] 100 mg PO DAILY 10/20/15 Topiramate [Trokendi Xr] 100 mg PO BID 10/20/15 Umeclidinium Bovina [Incruse Ellipta] 62.5 mcg IH ASDIR 10/20/15 Losartan Potassium [Cozaar -] 75 mg PO DAILY #60 tablet 02/26/16 Albuterol 2.5/Ipratropium 0.5 [Duoneb -] 1 amp NEB QIDR #10 amp 03/09/16 Me-Thfolate Gluc/B12/Herb #236 [Rheumate Capsule] 1 each PO DAILY 05/20/16 Insulin (Levemir) [Levemir Vial] 17 units SQ AM #24 ml 05/23/16 Insulin Sliding Scale [Novolog Vial Sliding Scale -] See Protocol SQ AC #1 units 05/23/16 Prednisone 10 mg PO DAILY #30 tablet 05/23/16 Sennosides [Senna -] 2 tab PO HS tablet 05/23/16 This patient is new to me today: No Emergency Visit: Yes ED Registration Date: 05/21/16 Care time: The patient presented to the Emergency Department on the above date and was hospitalized for further evaluation of their emergent condition. Critical Care patient: No - Discharge Referral Referred to [facility] Med P.C.: No
[2016-05-23 20:42] VITALS: BP 147/58; PULSE 94; TEMP 98.6
== END 2016-05-23 21:49 | disposition home or self-care (01) | DRG 191 ==
LOC: JER 13:35 → JERBED 17:33 → INTOOBSV 17:33 → UNDOADMOB 17:33 → JERBED 19:39 → J4W 05-21 00:13 → OBSVTOIN 05-21 18:16
PROVIDERS: ADMIT Internal Medicine; ATTEND Internal Medicine
PROC: 5A09457 Assistance with Respiratory Ventilation, 24-96 Consecutive Hours, Continuous Positive Airway Pressure (ICD-10-PCS; principal; 2016-05-21)
DX: J44.1 Chronic obstructive pulmonary disease with (acute) exacerbation (principal); Z68.42 Body mass index [BMI] 45.0-49.9, adult; R07.89 Other chest pain; I12.9 Hypertensive chronic kidney disease with stage 1 through stage 4 chronic kidney disease, or unspecified chronic kidney disease; E11.22 Type 2 diabetes mellitus with diabetic chronic kidney disease; N18.3 Chronic kidney disease, stage 3 (moderate); G47.33 Obstructive sleep apnea (adult) (pediatric); K21.9 Gastro-esophageal reflux disease without esophagitis; E03.9 Hypothyroidism, unspecified; F32.9 Major depressive disorder, single episode, unspecified; E66.9 Obesity, unspecified; Z87.891 Personal history of nicotine dependence; Z79.4 Long term (current) use of insulin; M32.9 Systemic lupus erythematosus, unspecified
CPT/HCPCS: 36415; 71010-TC; 80048; 80053; 82550; 82553; 83735; 83880; 84100; 84484; 85025; 85027; 85610; 93005; 93010; 94010; 94640; 99283-25; G0378

== ENCOUNTER 2016-08-13 12:10 | Observation (INO) | payer OTHER ==
--- NOTE | 2016-08-13 12:29 | PDOC ---
History of Present Illness - General History Source: Patient, Old Records Exam Limitations: No Limitations <Remington Ivy - Last Filed: 08/13/16 14:07> - General History Source: Patient Exam Limitations: No Limitations <Lisbet Simpson - Last Filed: 08/13/16 16:21> - General Chief Complaint: Chest Pain Stated Complaint: CHEST PAIN, LT SIDE NUMBNESS Time Seen by Provider: 08/13/16 12:28 - History of Present Illness Initial Comments: 08/13/16 13:19 The patient is a 61 year old female with a past medical history of obesity, COPD , CHF and hypertension, who presents to the emergency department with chest pain and left sided numbness for 4 days. The patient describes her chest pain is intermittent with associated intermittent sleepiness and fatigue. She states that her left sided numbness starts in her arm and radiated to her left foot. She endorses nausea and vomiting. The patient states that she had a stress test two weeks ago and was found to have an 83% blockage. She notes that she is on 2 L of oxygen at home and takes a baby aspirin daily which she took this morning. PCP: Dr. Bañuelos [phone] (Remington Ivy) Past History <Remington Ivy - Last Filed: 08/13/16 14:07> - Past Medical History Anemia: No Asthma: Yes Cancer: No Cardiac Disorders: Yes (CAD) CVA: No COPD: Yes (O2 DEPENDANT) CHF: No Dementia: No Diabetes: Yes (IDDM) GI Disorders: Yes (REFLUX) Disorders: No HTN: Yes Hypercholesterolemia: Yes Liver Disease: No Seizures: Yes Thyroid Disease: Yes (HYPO) Other medical history: LUPUS - Surgical History Abdominal Surgery: No Appendectomy: No Cardiac Surgery: No Cholecystectomy: Yes Lung Surgery: No Neurologic Surgery: No Orthopedic Surgery: Yes (08/2014 R HIP REPLACEMENT, BILAT KNEE ARTHROSCOPY, BILAT BUNIONECTOMY,) - Immunization History Immunization Up to Date: Yes - Psycho/Social/Smoking Cessation Hx Anxiety: No Suicidal Ideation: No Smoking Status: Yes Smoking History: Unknown if ever smoked Have you smoked in the past 12 months: No Number of Cigarettes Smoked Daily: 0 If you are a former smoker, when did you quit?: 2004 Information on smoking cessation initiated: No Hx Alcohol Use: No Drug/Substance Use Hx: No Substance Use Type: None Hx Substance Use Treatment: No <Lisbet Simpson - Last Filed: 08/13/16 16:21> - Past Medical History Allergies/Adverse Reactions: Allergies Allergy/AdvReac Type Severity Reaction Status Date / Time gabapentin [From Neurontin] Allergy PALPITATIONS, Verified 08/13/16 12:15 PASSES OUT Penicillins Allergy TONGUE Verified 08/13/16 12:15 Swelling phenytoin sodium Allergy diarrhea/vo Verified 08/13/16 12:15 [From Dilantin] miting phenytoin sodium extended Allergy Verified 08/13/16 12:15 [From Dilantin] theophylline [Theophylline] Allergy diarrhea,SE Verified 08/13/16 12:15 IZURES Home Medications: Ambulatory Orders Albuterol Sulfate Inhaler - [Ventolin HFA Inhaler -] 1 - 2 inh PO QID PRN Atorvastatin Ca [Lipitor] 10 mg PO DAILY 10/20/15 Biotin [Hard Nails] 5,000 mcg PO DAILY 10/20/15 Budesonide/Formeterol Fumarate [SYMBICORT 160/4.5mcg -] 1 inh PO BID 10/20/15 Carbamazepine Xr [Tegretol XR -] 300 mg PO BID 10/20/15 Folic Acid 2 mg PO DAILY 10/20/15 L.acidop,Daren,Lac,Rha/B.lac,Edmundo [Advanced Probiotic Capsule] 625 mg PO DAILY 06/29 Levothyroxine [Synthroid -] 50 mcg PO DAILY 10/20/15 Linaclotide [Linzess] 145 mcg PO DAILY 10/20/15 Methotrexate [Mexate -] 12.5 mg PO Q7D 10/20/15 Montelukast Na [Singulair -] 10 mg PO DAILY 10/20/15 [place]-3 Fatty Acids [[place]-3] 2 tab PO DAILY 10/20/15 Omeprazole [Prilosec] 40 mg PO DAILY 10/20/15 Sertraline HCl [Zoloft -] 100 mg PO DAILY 10/20/15 Topiramate [Trokendi Xr] 100 mg PO BID 10/20/15 Umeclidinium Dewitt [Incruse Ellipta] 62.5 mcg IH ASDIR 10/20/15 Albuterol 2.5/Ipratropium 0.5 [Duoneb -] 1 amp NEB QIDR #10 amp 03/09/16 Me-Thfolate Gluc/B12/Herb #236 [Rheumate Capsule] 1 each PO DAILY 05/20/16 Insulin Sliding Scale [Novolog Vial Sliding Scale -] See Protocol SQ AC #1 units 05/23/16 Exenatide [Byetta] 10 mcg SQ BID 08/13/16 Glipizide 10 mg PO BID 08/13/16 Hydroxychloroquine Sulfate [Plaquenil] 200 mg PO BID 08/13/16 Insulin (Levemir) [Levemir Vial] 17 units SQ HS 08/13/16 Insulin Glargine,Hum.rec.anlog [Lantus (nf)] 15 units SQ DAILY 08/13/16 Losartan Potassium [Cozaar -] 50 mg PO DAILY 08/13/16 Pramipexole Dihydrochloride [Mirapex -] 0.5 mg PO ASDIR 08/13/16 Cardiac Specific PMH - Complaint Specific PMHX Pacemaker: No <Lisbet Simpson - Last Filed: 08/13/16 16:21> Review of Systems - Review of Systems Able to Perform ROS?: Yes <Remington vIy - Last Filed: 08/13/16 14:07> <Lisbet Simpson - Last Filed: 08/13/16 16:21> - Review of Systems Comments:: 08/13/16 13:19 GENERAL/CONSTITUTIONAL: (+) Fatigue No: fever, chills, loss of appetite. HEAD, EYES, EARS, NOSE AND THROAT: No: change in vision, ear pain, discharge, sore throat, throat swelling. CARDIOVASCULAR: (+) Chest pain, left sided numbness No: lightheadedness, palpitations, syncope RESPIRATORY: No: cough, shortness of breath, wheezing, hemoptysis, stridor. GASTROINTESTINAL: (+) Nausea, vomiting No: abdominal cramping, diarrhea, rectal bleeding, constipation. GENITOURINARY: No: dysuria, hematuria, frequency, urgency, flank pain. MUSCULOSKELETAL: No: back pain, neck pain, joint pain, muscle swelling or pain SKIN: No: lesions, pallor, rash or easy bruising. NEUROLOGIC: No: headache, vertigo, paresthesias, weakness ENDOCRINE: No: unexplained weight gain or loss HEMATOLOGIC/LYMPHATIC: No: anemia, easy bleeding, swelling nodes (CataRemington) *Physical Exam <Remington Ivy - Last Filed: 08/13/16 14:07> <Lisbet Simpson - Last Filed: 08/13/16 16:21> - Vital Signs Last Vital Signs Temp Pulse Resp BP Pulse Ox 98.4 F 86 16 149/77 97 08/13/16 12:15 08/13/16 12:15 08/13/16 12:15 08/13/16 12:15 08/13/16 12:52 - Physical Exam Comments: 08/13/16 13:19 GENERAL: The patient is in no acute distress. HEAD: Normal with no signs of trauma. EYES: PERRLA, EOMI, sclera anicteric, conjunctiva clear. ENT: Ears normal, nares patent, oropharynx clear without exudates. Moist mucous membranes. NECK: Normal range of motion, supple without lymphadenopathy, JVD, or masses. LUNGS: Breath sounds equal, clear to auscultation bilaterally. No wheezes, and no crackles. HEART:Regular rate and rhythm, normal S1 and S2 without murmur, rub or gallop. ABDOMEN: (+) Morbidly obese. Soft, nontender, normoactive bowel sounds. No guarding, no rebound. EXTREMITIES: (+) Normal range of motion 3+ pitting edema to the knees bilaterally. No clubbing or cyanosis. No erythema, or tenderness. NEUROLOGICAL: Cranial nerves II through XII grossly intact. Normal speech. No focal neurological deficits. MUSCULOSKELETAL: Back nontender to palpation, no CVA tenderness SKIN: Warm, Dry, normal turgor, no rashes or lesions noted. (Raudel Ivyke) ED Treatment Course - LABORATORY CBC & Chemistry Diagram: 08/13/16 12:37 <MaximobrandonRaudelRemington - Last Filed: 08/13/16 14:07> - LABORATORY CBC & Chemistry Diagram: 08/13/16 12:37 08/13/16 12:37 <Lisbet Simpson - Last Filed: 08/13/16 16:21> - ADDITIONAL ORDERS Additional order review: Laboratory Results 08/13/16 08/13/16 08/13/16 12:37 12:37 12:37 INR 1.16 H Sodium 143 Potassium 4.4 Chloride 107 Carbon Dioxide 26 Anion Gap 10 BUN 12 D Creatinine 1.0 Creat Clearance w eGFR 56.56 Random Glucose 89 D Calcium 9.4 Magnesium 2.0 Total Bilirubin 0.3 AST 31 D ALT 30 Alkaline Phosphatase 134 H Creatine Kinase 187 D CK-MB (CK-2) 2.227 Troponin I 0.02 Total Protein 7.6 Albumin 3.5 Blood Type O POSITIVE Antibody Screen Negative 08/13/16 12:37 RBC 4.09 MCV 89.6 MCHC 32.4 RDW 17.2 H MPV 8.2 Neutrophils % 83.3 H Lymphocytes % 14.0 D Monocytes % 2.1 L Eosinophils % 0.1 D Basophils % 0.5 - RADIOLOGY Radiology Studies Ordered: Category Date Time Status CHEST X-RAY PORTABLE* [RAD] Stat Radiology 08/13/16 12:31 Completed 08/13/16 14:07 EXAM#: TYPE/EXAM: RESULT: [id number] RAD/CHEST X-RAY PORTABLE* Chest pain evaluate for infiltrate. Single portable chest x-ray. Comparison study May 20, 2016. No evidence of widening of the superior mediastinum. Unremarkable contour of the thoracic aorta, cardiac silhouette. The lungs are well aerated. No evidence of pneumonia, CHF, large pleural effusion or pneumothorax. Impression. No evidence of active pulmonary disease. Reported By: Shaji Key MD [id number] (Remington Ivy) - Medications Given in the ED: ED Medications Discontinued Medications Generic Name Dose Route Start Last Admin Trade Name Freq PRN Reason Stop Dose Admin Aspirin 162 mg 08/13/16 12:30 08/13/16 13:54 Asa - PO 08/13/16 12:31 162 mg ONCE ONE Administration Morphine Sulfate 4 mg 08/13/16 14:01 08/13/16 14:02 Morphine Injection - IVPUSH 08/13/16 14:02 4 mg NOW ONE Administration Medical Decision Making <Remington Ivy - Last Filed: 08/13/16 14:07> <Lisbet Simpson - Last Filed: 08/13/16 16:21> - Medical Decision Making 08/13/16 12:29 A portion of this note was documented by scribe services under my direction. I have reviewed the details of the note, within reason, and agree with the documentation with the following case summary and management plan written by me. Nursing documentation reviewed and incorporated into medical decision making 08/13/16 16:10 This is a 61 yo F with a history of morbid obesity, HTN, HLD she presents to the ER with a complaint of chest pain x 4 days (+) shortness of breath No fevers or chills No chest wall trauma No sputum production No wheezing Pt states that she has had a positive stress test and her doctor scheduled her for a cardiac cathetherization on August 22 at [place] Her doctor is Ethel Denton Labs sent EKG CXR Laboratory Tests 08/13/16 08/13/16 08/13/16 12:37 12:37 12:37 WBC 8.8 Hgb 11.8 Hct 36.6 Plt Count 336 Neutrophils % 83.3 H Lymphocytes % 14.0 D INR 1.16 H BUN 12 D Creatinine 1.0 Random Glucose 89 D Creatine Kinase 187 D CK-MB (CK-2) 2.227 Troponin I 0.02 08/13/16 16:16 Will admit to hospitalist service given patient has a reported (+) stress test Case reviewed with JAGDISH Ferrell (Lisbet Simpson) *DC/Admit/Observation/Transfer <Remington Ivy - Last Filed: 08/13/16 14:07> - Discharge Dispostion Admit: Yes <Lisbet Simpson - Last Filed: 08/13/16 16:21> Diagnosis at time of Disposition: Chest pain Qualifiers: Chest pain type: unspecified Qualified Code(s): R07.9 - Chest pain, unspecified - Discharge Dispostion Condition at time of disposition: Stable - Referrals Referrals: Goran Hernandez MD [Primary Care Provider] - - Attestations Scribe Attestion: 08/13/16 13:19 Documentation prepared by Remington Ivy, acting as territory sales manager medical for Lisbet Simpson MD. (Remington Ivy)
[2016-08-13] MEDS ORDERED: ASPIRIN 81 MG CHEWABLE TABLETS PO ONE (12:30)
[2016-08-13] MEDS ORDERED: ASPIRIN 81 MG CHEWABLE TABLETS ONE (13:53)
[2016-08-13] MEDS ORDERED: morphine CARPU-JECT 4 MG/1 ML DISP.SYRIN ONE (13:54)
[2016-08-13] MEDS ORDERED: morphine CARPU-JECT 4 MG/1 ML DISP.SYRIN IVPUSH ONE (14:01)
[2016-08-13 14:16] LABS: EOSINOPHIL 0.1 % (0-4.5)
[2016-08-13 14:26] LABS: ALBUMIN 3.5 g/dl (3.4-5.0); ANION GAP 10 (8-16); BILIRUBIN,TOTAL 0.3 mg/dL (0.2-1.0); CALCIUM 9.4 mg/dL (8.5-10.1); CO2 26 mmol/L (21-32); GLUCOSE,RANDOM 89 mg/dL (74-106); SGPT/ALT 30 U/L (12-78); TOT PROT 7.6 g/dl (6.4-8.2)
[2016-08-13 14:28] LABS: ALK PHOS 134 U/L (45-117); TROPONIN I 0.02 ng/ml (0.00-0.05)
[2016-08-13 14:34] LABS: SGOT/AST 31 U/L (15-37)
[2016-08-13 14:39] LABS: BASOPHIL 0.5 % (0-2.0); MCHC 32.4 g/dl (32.0-36.0); MEAN CELL VOLUME 89.6 fl (80-96); MEAN PLT VOLUME 8.2 fl (7.5-11.1); NEUTROPHILS 83.3 % (42.8-82.8); PLATELET COUNT 336 K/MM3 (134-434); RDW 17.2 % (11.6-15.6); WHITE BLOOD COUNT 8.8 K/mm3 (4.0-10.0)
[2016-08-13 15:22] LABS: INR 1.16 (0.82-1.09); PROTHROMBIN TIME (PATIENT) 12.8 SEC (9.98-11.88)
--- NOTE | 2016-08-13 16:05 | HP ---
CHIEF COMPLAINT: midsternal chest pain at rest PCP: Edda HISTORY OF PRESENT ILLNESS: This is a 61yo woman with PMH of COPD, HTN, seizure , SLE, DM, hypothyroid, DANY on CPAP who presents today with 3-4 days of midsternal chest pain radiating to left shoulder into hands and also her left leg. She reports associated SOB, MYERS, nausea and vomiting. She has been experiencing these symptoms intermittently over past 2 weeks. She states she was evaluated by Dr. Denton 2 weeks ago and told she had an "83% blockage in my heart." She states that Dr. Denton set up a catheterization in [place] scheduled for August 22 which is a Tuesday. ER course was notable for: (1) trop #1 (-) (2) CXR- no evidence of active pulmonary disease Recent Travel: denies PAST MEDICAL HISTORY: see HPI PAST SURGICAL HISTORY: L TKR Social History: Smoking: denies Alcohol: denies Drugs: denies Family History: Allergies gabapentin [From Neurontin] Allergy (Verified 08/13/16 12:15) PALPITATIONS, PASSES OUT Penicillins Allergy (Verified 08/13/16 12:15) TONGUE Swelling phenytoin sodium [From Dilantin] Allergy (Verified 08/13/16 12:15) diarrhea/vomiting phenytoin sodium extended [From Dilantin] Allergy (Verified 08/13/16 12:15) theophylline [Theophylline] Allergy (Verified 08/13/16 12:15) diarrhea,SEIZURES HOME MEDICATIONS: Home Medications 3 Medication Instructions Recorded Albuterol Sulfate Inhaler - 1 - 2 inh PO QID PRN 01/04/13 [Ventolin HFA Inhaler -] Atorvastatin Ca [Lipitor] 10 mg PO DAILY 10/20/15 Biotin [Hard Nails] 5,000 mcg PO DAILY 10/20/15 Budesonide/Formeterol Fumarate 1 inh PO BID 10/20/15 [SYMBICORT 160/4.5mcg -] Carbamazepine Xr [Tegretol XR -] 300 mg PO BID 10/20/15 Folic Acid 2 mg PO DAILY 10/20/15 L.acidop,Daren,Lac,Rha/B.lac,Edmundo 625 mg PO DAILY 10/20/15 [Advanced Probiotic Capsule] Levothyroxine [Synthroid -] 50 mcg PO DAILY 10/20/15 Linaclotide [Linzess] 145 mcg PO DAILY 10/20/15 Methotrexate [Mexate -] 12.5 mg PO Q7D 10/20/15 Montelukast Na [Singulair -] 10 mg PO DAILY 10/20/15 [place]-3 Fatty Acids [[place]-3] 2 tab PO DAILY 10/20/15 Omeprazole [Prilosec] 40 mg PO DAILY 10/20/15 Sertraline HCl [Zoloft -] 100 mg PO DAILY 10/20/15 Topiramate [Trokendi Xr] 100 mg PO BID 10/20/15 Umeclidinium Davy [Incruse 62.5 mcg IH ASDIR 10/20/15 Ellipta] Albuterol 2.5/Ipratropium 0.5 1 amp NEB QIDR #10 amp 03/09/16 [Duoneb -] Me-Thfolate Gluc/B12/Herb #236 1 each PO DAILY 05/20/16 [Rheumate Capsule] Insulin Sliding Scale [Novolog See Protocol SQ AC #1 units 05/23/16 Vial Sliding Scale -] Exenatide [Byetta] 10 mcg SQ BID 08/13/16 Glipizide 10 mg PO BID 08/13/16 Hydroxychloroquine Sulfate 200 mg PO BID 08/13/16 [Plaquenil] Insulin (Levemir) [Levemir Vial] 17 units SQ HS 08/13/16 Insulin Glargine,Hum.rec.anlog 15 units SQ DAILY 08/13/16 [Lantus (nf)] Losartan Potassium [Cozaar -] 50 mg PO DAILY 08/13/16 Pramipexole Dihydrochloride 0.5 mg PO ASDIR 08/13/16 [Mirapex -] REVIEW OF SYSTEMS CONSTITUTIONAL: Present- generalized weakness Absent: fever, chills, diaphoresis, malaise, loss of appetite, weight change HEENT: Absent: rhinorrhea, nasal congestion, throat pain, throat swelling, difficulty swallowing, mouth swelling, ear pain, eye pain, visual changes CARDIOVASCULAR: Present- chest pain Absent: syncope, palpitations, irregular heart rate, lightheadedness, peripheral edema RESPIRATORY: Present- shortness of breath, dyspnea with exertion, orthopnea Absent: cough, wheezing, stridor, hemoptysis GASTROINTESTINAL: Present- nausea, vomiting Absent: abdominal pain, abdominal distension, diarrhea, constipation, melena, hematochezia GENITOURINARY: Absent: dysuria, frequency, urgency, hesitancy, hematuria, flank pain, genital pain MUSCULOSKELETAL: Absent: myalgia, arthralgia, joint swelling, back pain, neck pain SKIN: Absent: rash, itching, pallor HEMATOLOGIC/IMMUNOLOGIC: Present- easy bruising Absent: easy bleeding, lymphadenopathy, frequent infections ENDOCRINE: Absent: unexplained weight gain, unexplained weight loss, heat intolerance, cold intolerance NEUROLOGIC: Absent: headache, focal weakness or paresthesias, dizziness, unsteady gait, seizure, mental status changes, bladder or bowel incontinence PSYCHIATRIC: Absent: anxiety, depression, suicidal or homicidal ideation, hallucinations. PHYSICAL EXAMINATION Vital Signs - 24 hr 3 08/13/16 08/13/16 12:15 12:52 Temperature 98.4 F Pulse Rate 86 Respiratory 16 Rate Blood Pressure 149/77 O2 Sat by Pulse 96 97 Oximetry (%) GENERAL: Awake, alert, and fully oriented, in no acute distress. HEAD: Normal with no signs of trauma. EYES: Pupils equal, round and reactive to light, extraocular movements intact, sclera anicteric, conjunctiva clear. No lid lag. EARS, NOSE, THROAT: Ears normal, nares patent, oropharynx clear without exudates. Moist mucous membranes. NECK: Normal range of motion, supple without lymphadenopathy, JVD, or masses. LUNGS: Breath sounds equal, diminished to auscultation bilaterally. No wheezes, and no crackles. No accessory muscle use. HEART: Regular rate and rhythm, normal S1 and S2 without murmur, rub or gallop. ABDOMEN: Obese abdomen. Soft, nontender, not distended, normoactive bowel sounds , no guarding, no rebound, no masses. No hepatomegaly or splenomegaly. MUSCULOSKELETAL: Normal range of motion at all joints. No bony deformities or tenderness. No CVA tenderness. UPPER EXTREMITIES: 2+ pulses, warm, well-perfused. No cyanosis. No clubbing. No peripheral edema. LOWER EXTREMITIES: 2+ pulses, warm, well-perfused. No calf tenderness. Dependant peripheral edema. Resolving ecchymoses to bilateral thighs. NEUROLOGICAL: Cranial nerves II-XII intact. Normal speech. Gait not tested. PSYCHIATRIC: Cooperative. Good eye contact. Appropriate mood and affect. SKIN: Warm, dry, normal turgor, no rashes or lesions noted, normal capillary refill. Laboratory Results - last 24 hr 3 08/13/16 08/13/16 08/13/16 12:37 12:37 12:37 WBC 8.8 RBC 4.09 Hgb 11.8 Hct 36.6 MCV 89.6 MCHC 32.4 RDW 17.2 H Plt Count 336 MPV 8.2 Neutrophils % 83.3 H Lymphocytes % 14.0 D Monocytes % 2.1 L Eosinophils % 0.1 D Basophils % 0.5 INR 1.16 H Sodium 143 Potassium 4.4 Chloride 107 Carbon Dioxide 26 Anion Gap 10 BUN 12 D Creatinine 1.0 Creat Clearance w eGFR 56.56 Random Glucose 89 D Calcium 9.4 Magnesium 2.0 Total Bilirubin 0.3 AST 31 D ALT 30 Alkaline Phosphatase 134 H Creatine Kinase 187 D CK-MB (CK-2) 2.227 Troponin I 0.02 Total Protein 7.6 Albumin 3.5 Blood Type Antibody Screen 3 08/13/16 12:37 WBC RBC Hgb Hct MCV MCHC RDW Plt Count MPV Neutrophils % Lymphocytes % Monocytes % Eosinophils % Basophils % INR Sodium Potassium Chloride Carbon Dioxide Anion Gap BUN Creatinine Creat Clearance w eGFR Random Glucose Calcium Magnesium Total Bilirubin AST ALT Alkaline Phosphatase Creatine Kinase CK-MB (CK-2) Troponin I Total Protein Albumin Blood Type O POSITIVE Antibody Screen Negative Stress Test 07/09/16: No ischemic EKG changes and no arrhythmias with dobutamine infusion. Mild anteroseptal ischemia. LVEF- 79% ASSESSMENT/PLAN: A: 61yo woman with midsternal chest pain starting 3-4 days ago. Increased risk for CAD given obesity, SLE, DM, HTN and DANY. No change in exercise tolerance- but does not walk long distance, up stairs or inclines. HEART score- 6. P: 1. Chest pain - serial troponin - daily ASA 325 - O2 titrate to keep SpO2>94% - start metoprolol 25mg bid - last echo 03/05/16- EF 57.4% - pavan Bruno consult - telemetry - Lipitor 10mg 2. SLE - Plaquenil 200mg bid - methotrexate every Tuesday 3. DANY - CPAP overnight 4. HTN - Losartan 50mg - start metoprolol 25mg bid 5. HLD - Lipitor 10mg - AM lipid panel 6. DM - hold oral hypoglycemics - FSBG qACHS - ISS - Levamir 15 units qHS - A1c in AM 7. Seizure disorder - tegretol 300mg bid 8. Migraines - topiramate 100mg bid - reglan prn 9. Hypothyroidism - Synthroid 50mcg 10. Depression - Zoloft 100mg 11. COPD - O2 titrated to keep SpO2>94% - Singulair 10mg - Incruse Ellipta 12. F/E/N - Low Na diabetic diet - replete prn 13. PPX - omeprazole - heparin Dispo- requires observation for acute medical condition Code Status- FULL CODE Visit type - Emergency Visit Emergency Visit: Yes ED Registration Date: 08/13/16 Care time: The patient presented to the Emergency Department on the above date and was hospitalized for further evaluation of their emergent condition. - New Patient This patient is new to me today: Yes Date on this admission: 08/13/16 - Critical Care Critical Care patient: No
[2016-08-13] MEDS ORDERED: PATIENT'S OWN MEDICATION (NON-FORMULARY) (Umeclidinium Bromide [Incruse Ellipta] 62.5 MCG) IH SCH (16:15)
[2016-08-13] MEDS: INSULIN SLIDING SCALE (NOVOLOG) 1 VIAL SQ SCH ×2 (17:56→22:44)
[2016-08-13] MEDS: ALBUTEROL SO4 2.5/IPRATROPIUM 0.5 INH SOL 3 ML VIAL.NEB. NEB SCH (18:12)
[2016-08-13 20:35] LABS: TROPONIN I < 0.02 ng/ml (0.00-0.05)
[2016-08-13 20:43] VITALS: BMI 49.6
[2016-08-13] MEDS ORDERED: carBAMazepine XR 400 MG TAB.ER.12H PO SCH (22:00)
[2016-08-13] MEDS ORDERED: PATIENT'S OWN MEDICATION (NON-FORMULARY) (Topiramate [Trokendi Xr] 100 MG) PO SCH (22:00)
[2016-08-13] MEDS: HEPARIN NA (PORCINE) 5,000 UNITS/ML 1ML VIAL SQ SCH (22:32)
[2016-08-13] MEDS: ATORVASTATIN CA 10 MG TABLET (FP) PO SCH (22:33)
[2016-08-13] MEDS: METOPROLOL TARTRATE 25 MG TABLET (FP) PO SCH (22:33)
[2016-08-13] MEDS: INSULIN DETEMIR 100 UNITS/ML MDV SQ SCH (22:43)
[2016-08-13] MEDS: HYDROXYCHLOROQUINE SO4 200 MG TABLET (FP) PO SCH (23:19)
[2016-08-13] MEDS: BUDESONIDE/FORMETEROL FUMARATE 160/4.5 mcg INHALER IH SCH (23:20)
[2016-08-13] MEDS: TOPIRAMATE 100 MG TABLET PO SCH (23:23)
[2016-08-14] MEDS: ALBUTEROL SO4 2.5/IPRATROPIUM 0.5 INH SOL 3 ML VIAL.NEB. NEB SCH ×4 (00:05→17:09)
[2016-08-14] MEDS: INSULIN SLIDING SCALE (NOVOLOG) 1 VIAL SQ SCH ×4 (06:28→21:38)
[2016-08-14] MEDS: LEVOTHYROXINE NA 50 MCG TABLET (FP) PO SCH (06:28)
[2016-08-14 08:58] LABS: BASOPHIL 1.5 % (0-2.0); EOSINOPHIL 0.6 % (0-4.5); MCH 29.2 pg (25.7-33.7); MCHC 32.6 g/dl (32.0-36.0); MEAN CELL VOLUME 89.5 fl (80-96); MEAN PLT VOLUME 7.9 fl (7.5-11.1); NEUTROPHILS 48.2 % (42.8-82.8); PLATELET COUNT 320 K/MM3 (134-434); WHITE BLOOD COUNT 6.6 K/mm3 (4.0-10.0)
--- NOTE | 2016-08-14 09:10 | PN ---
Physical Exam: SUBJECTIVE: Patient seen and examined at bedside. Has mid-sternal chest pain that radiates to back. It is constant. It does not wax or wane. Nothing makes it worse. It is not dependent on exertion. OBJECTIVE: Vital Signs Period Temp Pulse Resp BP Sys/Oconnell Pulse Ox Last 24 Hr 97.6 F-98.7 F 72-92 18-22 110-145/55-74 98-98 GENERAL: The patient is awake, alert, and fully oriented, in no acute distress. HEAD: Normal with no signs of trauma. LUNGS: Breath sounds equal, clear to auscultation bilaterally, no wheezes, no crackles, no accessory muscle use. HEART: Regular rate and rhythm, S1, S2, + systolic murmur ABDOMEN: morbidly obese, soft, nontender, nondistended, normoactive bowel sounds , no guarding, no rebound NEUROLOGICAL: Cranial nerves II through XII grossly intact. Normal speech, gait not observed. Moving all extremities freely. Laboratory Results - last 24 hr 08/13/16 08/13/16 08/13/16 17:55 19:45 22:24 WBC RBC Hgb Hct MCV MCHC RDW Plt Count MPV Neutrophils % Lymphocytes % Monocytes % Eosinophils % Basophils % POC Glucometer [id number] Creatine Kinase 145 Troponin I < 0.02 Triglycerides Cholesterol Total LDL Cholesterol HDL Cholesterol 08/14/16 08/14/16 08/14/16 06:08 08:20 08:20 WBC 6.6 RBC 3.76 Hgb 11.0 Hct 33.7 MCV 89.5 MCHC 32.6 RDW 17.0 H Plt Count 320 MPV 7.9 Neutrophils % 48.2 D Lymphocytes % 43.0 H D Monocytes % 6.7 D Eosinophils % 0.6 D Basophils % 1.5 POC Glucometer 123 Creatine Kinase Troponin I Triglycerides Cancelled Cholesterol Cancelled Total LDL Cholesterol Cancelled HDL Cholesterol Cancelled Active Medications Generic Name Dose Route Start Last Admin Trade Name Freq PRN Reason Stop Dose Admin Albuterol/Ipratropium 1 amp 08/13/16 18:00 08/14/16 06:46 Duoneb - NEB 1 amp QIDR DONTA Administration Aspirin 325 mg 08/14/16 10:00 Asa - PO DAILY DONTA Atorvastatin Calcium 10 mg 08/13/16 22:00 08/13/16 22:33 Lipitor - PO 10 mg HS DONTA Administration Budesonide/Formoterol Fumarate 1 puff 08/13/16 22:00 08/13/16 23:20 Symbicort 160/4.5mcg - IH 1 puff BID DONTA Administration Carbamazepine 300 mg 08/13/16 22:00 08/13/16 23:22 Tegretol Xr - PO 300 mg BID DONTA Administration Folic Acid 2 mg 08/14/16 10:00 Folic Acid - PO DAILY [facility] Heparin Sodium (Porcine) 5,000 unit 08/13/16 22:00 08/13/16 22:32 Heparin - SQ 5,000 unit BID DONTA Administration Hydroxychloroquine Sulfate 200 mg 08/13/16 22:00 08/13/16 23:19 Plaquenil - PO 200 mg BID DONTA Administration Insulin Aspart 1 vial 08/13/16 16:30 08/14/16 06:28 Novolog Vial Sliding Scale - SQ Not Given ACHS [facility] Protocol Insulin Detemir 17 units 08/13/16 22:00 08/13/16 22:43 Levemir Vial SQ 17 units HS [facility] Administration Levothyroxine Sodium 50 mcg 08/14/16 07:00 08/14/16 06:28 Synthroid - PO 50 mcg ACBK [facility] Administration Losartan Potassium 50 mg 08/14/16 10:00 Cozaar - PO DAILY [facility] Metoprolol Tartrate 25 mg 08/13/16 22:00 08/13/16 22:33 Lopressor - PO 25 mg BID DONTA Administration Non-Formulary Medication 145 mcg 08/14/16 10:00 Linaclotide [Linzess] PO DAILY [facility] Non-Formulary Medication 1 each 08/14/16 10:00 Me-Thfolate Gluc/B12/Herb #236 [Rheumate Capsule] PO DAILY [facility] Non-Formulary Medication 62.5 mcg 08/13/16 16:15 08/13/16 17:56 Umeclidinium [place] [Incruse Ellipta] IH Not Given ASDIR [facility] [id number] Ethyl Esters 2 gm 08/14/16 10:00 Lovaza - PO DAILY [facility] Pantoprazole Sodium 40 mg 08/14/16 10:00 Protonix - PO DAILY [facility] Sertraline HCl 100 mg 08/14/16 10:00 Zoloft - PO DAILY [facility] Topiramate 100 mg 08/13/16 22:00 08/13/16 23:23 Topamax - PO 100 mg BID DONTA Administration Cardiac testing: Echocaridogram 03/05/16: normal LV systolic function, mild mr/tr Stress Test 07/09/16: No ischemic EKG changes and no arrhythmias with dobutamine infusion. Mild anteroseptal ischemia. LVEF- 79% ASSESSMENT/PLAN 61 year-old female with a PMH of HTN, CAD, COPD, IDDM, hypothyroidism, SLE, migraines, seizure disorder, depression, and DANY on CPAP, admitted for midsternal chest pain. Chest pain CAD --troponins negative x 3 --has recurrent symptoms, multiple risk factors, and recent stress showed mild anteroseptal ischemia --discussed with Dr. Edmonds, will transfer patient tomorrow to [facility] for cath --patient had been scheduled to go to [facility] for cath next week, but given new admission, prudent to send for cath promptly; plan discussed with patient and she agrees --continue ASA, Lipitor, metoprolol Hypertension --BP well-controlled --continue metoprolol, losartan COPD, chronic --continue Symbicort IDDM --continue Levemir --Novolog sliding scale coverage Hypothyroidism SLE --continue Plaquenil --methotrexate every Tuesday DANY --CPAP overnight Seizure disorder --continue tegretol Mirgraines --continue Topamax Hypothyroidism --continue levothyroxine Depression --continue Zoloft F/E/N Fluids: PO intake adequate Electrolytes: replete as indicated Nutrition: cholesterol sodium controlled; NPO after midnight for possible cath tomorrow DVT prophylaxis: subq heparin, oob, ambulation Dispo: for transfer tomorrow to [facility] for cardiac catheterization. Visit type - Emergency Visit Emergency Visit: Yes ED Registration Date: 08/13/16 Care time: The patient presented to the Emergency Department on the above date and was hospitalized for further evaluation of their emergent condition. - New Patient This patient is new to me today: Yes Date on this admission: 08/14/16 - Critical Care Critical Care patient: No
[2016-08-14 09:18] LABS: TROPONIN I < 0.02 ng/ml (0.00-0.05)
[2016-08-14 09:25] LABS: ALBUMIN 3.2 g/dl (3.4-5.0); ANION GAP 10 (8-16); BILIRUBIN,TOTAL 0.2 mg/dL (0.2-1.0); CALCIUM 8.7 mg/dL (8.5-10.1); CO2 26 mmol/L (21-32); GLUCOSE,RANDOM 121 mg/dL (74-106); SGPT/ALT 26 U/L (12-78); TOT PROT 6.8 g/dl (6.4-8.2)
[2016-08-14 09:27] LABS: ALK PHOS 119 U/L (45-117); CHOLESTEROL 146 mg/dL (50-200); CREATININE 1.2 mg/dL (0.55-1.02); LDL CHOLESTEROL (ONLY SJRH) 95 mg/dL (5-100); SGOT/AST 20 U/L (15-37)
[2016-08-14] MEDS: FOLIC ACID 1 MG TABLET (FP) PO SCH (09:37)
[2016-08-14] MEDS: PANTOPRAZOLE 40 MG TABLET (FP) PO SCH (09:37)
[2016-08-14] MEDS: ASPIRIN 325 MG TABLET PO SCH (09:37)
[2016-08-14] MEDS: OMEGA-3 ACID ETHYL ESTERS (FATTY-ACIDS) 1 GM CAPSULE (FP) PO SCH (09:38)
[2016-08-14] MEDS: HEPARIN NA (PORCINE) 5,000 UNITS/ML 1ML VIAL SQ SCH ×2 (09:38→21:35)
[2016-08-14] MEDS: SERTRALINE HCL 50 MG TABLET (FP) PO SCH (09:38)
[2016-08-14] MEDS: LOSARTAN POTASSIUM 50 MG TABLET (FP) PO SCH (09:38)
[2016-08-14] MEDS: METOPROLOL TARTRATE 25 MG TABLET (FP) PO SCH ×2 (09:39→21:37)
[2016-08-14] MEDS ORDERED: PATIENT'S OWN MEDICATION (NON-FORMULARY) (Omeprazole [Prilosec] 40 MG) PO SCH (10:00)
[2016-08-14] MEDS: BUDESONIDE/FORMETEROL FUMARATE 160/4.5 mcg INHALER IH SCH ×2 (10:00→21:41)
[2016-08-14] MEDS ORDERED: HERB PO SCH (10:00)
[2016-08-14] MEDS ORDERED: PATIENT'S OWN MEDICATION (NON-FORMULARY) (Sertraline Hcl [Zoloft -] 100 MG) PO SCH (10:00)
[2016-08-14] MEDS ORDERED: [UNRECOGNIZED DRUG - OTHER] PO SCH (10:00)
[2016-08-14] MEDS ORDERED: OMEGA PO SCH (10:00)
[2016-08-14] MEDS ORDERED: B12 PO SCH (10:00)
[2016-08-14] MEDS ORDERED: PATIENT'S OWN MEDICATION (NON-FORMULARY) (Linaclotide [Linzess] 145 MCG) PO SCH (10:00)
[2016-08-14] MEDS ORDERED: PT OWN MED DRAWER 7, Y5N ONE ×3 (12:10→21:32)
[2016-08-14] MEDS: HYDROXYCHLOROQUINE SO4 200 MG TABLET (FP) PO SCH ×2 (12:12→21:38)
[2016-08-14] MEDS: TOPIRAMATE 100 MG TABLET PO SCH ×2 (12:12→21:38)
--- NOTE | 2016-08-14 13:05 | CON.CARD ---
Consult Consult Specialty:: Cardiology Referred by:: Paulette Bedolla Reason for Consultation:: Chest pain and CAD - History of Present Illness Chief Complaint: Chest pain History of Present Illness: This is a 61yo woman with PMH of COPD, HTN, seizure, SLE, DM, hypothyroid, DANY on CPAP who presents today with 3-4 days of midsternal chest pain radiating to left shoulder into hands and also her left leg. She reports associated SOB, MYERS , nausea and vomiting. She has been experiencing these symptoms intermittently over past few weeks. Nuclear Stress Test done 07/09/16: nl ecg, mild anteroseptal ischemia, nl lvef 79 % Echocaridogram 03/05/16: normal LV systolic function, mild mr/tr - History Source History Provided By: Patient, Medical Record - Past Medical History [employer]: Yes: Seizure, Syncope. No: Alzheimer's Pulmonary: Yes: Asthma ...LMP: 03/18/01 Infectious Disease: Yes: AIDS Rheumatology: Yes: Lupus Endocrine: Yes: Diabetes Mellitus - Past Surgical History Past Surgical History: Yes: Cataract Removal, Cholecystectomy, Joint Replacement (Right total hip replacement), Tonsillectomy - Alcohol/Substance Use Hx Alcohol Use: No History of Substance Use: reports: None - Smoking History Smoking history: Former smoker Have you smoked in the past 12 months: No Aproximately how many cigarettes per day: 0 If you are a former smoker, when did you quit?: 2004 - Social History ADL: Independent History of Recent Travel: No Home Medications - Allergies Allergies/Adverse Reactions: Allergies Allergy/AdvReac Type Severity Reaction Status Date / Time gabapentin [From Neurontin] Allergy PALPITATIONS, Verified 08/13/16 12:15 PASSES OUT Penicillins Allergy TONGUE Verified 08/13/16 12:15 Swelling phenytoin sodium Allergy diarrhea/vo Verified 08/13/16 12:15 [From Dilantin] miting phenytoin sodium extended Allergy Verified 08/13/16 12:15 [From Dilantin] theophylline [Theophylline] Allergy diarrhea,SE Verified 08/13/16 12:15 IZURES - Home Medications Home Medications: Ambulatory Orders Albuterol Sulfate Inhaler - [Ventolin HFA Inhaler -] 1 - 2 inh PO QID PRN Atorvastatin Ca [Lipitor] 10 mg PO DAILY 10/20/15 Biotin [Hard Nails] 5,000 mcg PO DAILY 10/20/15 Budesonide/Formeterol Fumarate [SYMBICORT 160/4.5mcg -] 1 inh PO BID 10/20/15 Carbamazepine Xr [Tegretol XR -] 300 mg PO BID 10/20/15 Folic Acid 2 mg PO DAILY 10/20/15 L.acidop,Daren,Lac,Rha/B.lac,Edmundo [Advanced Probiotic Capsule] 625 mg PO DAILY 06/29 Levothyroxine [Synthroid -] 50 mcg PO DAILY 10/20/15 Linaclotide [Linzess] 145 mcg PO DAILY 10/20/15 Methotrexate [Mexate -] 12.5 mg PO Q7D 10/20/15 Montelukast Na [Singulair -] 10 mg PO DAILY 10/20/15 [place]-3 Fatty Acids [[place]-3] 2 tab PO DAILY 10/20/15 Omeprazole [Prilosec] 40 mg PO DAILY 10/20/15 Sertraline HCl [Zoloft -] 100 mg PO DAILY 10/20/15 Topiramate [Trokendi Xr] 100 mg PO BID 10/20/15 Umeclidinium [place] [Incruse Ellipta] 62.5 mcg IH ASDIR 10/20/15 Albuterol 2.5/Ipratropium 0.5 [Duoneb -] 1 amp NEB QIDR #10 amp 03/09/16 Insulin Sliding Scale [Novolog Vial Sliding Scale -] See Protocol SQ AC #1 units 05/23/16 Exenatide [Byetta] 10 mcg SQ BID 08/13/16 Glipizide 10 mg PO BID 08/13/16 Hydroxychloroquine Sulfate [Plaquenil] 200 mg PO BID 08/13/16 Insulin Glargine,Hum.rec.anlog [Lantus (nf)] 23 units SQ DAILY 08/13/16 Losartan Potassium [Cozaar -] 50 mg PO DAILY 08/13/16 Pramipexole Dihydrochloride [Mirapex -] 0.5 mg PO ASDIR 08/13/16 Vital Signs: Vital Signs Temperature 97 F L 08/14/16 09:00 Pulse Rate 69 08/14/16 09:00 Respiratory Rate 18 08/14/16 09:00 Blood Pressure 114/63 08/14/16 09:00 O2 Sat by Pulse Oximetry (%) 97 08/14/16 09:00 Constitutional: Yes: No Distress Neck: Yes: Supple Respiratory: Yes: CTA Bilaterally Gastrointestinal: Yes: Normal Bowel Sounds, Soft, Abdomen, Obese Cardiovascular: Yes: Regular Rate and Rhythm JVD: No Carotid Bruit: No Heart Sounds: Yes: S1, S2 Murmur: No: Systolic Murmur Edema: LLE: Trace, RLE: Trace - Other Data Labs, Other Data: CBC, BMP 08/14/16 08:20 08/14/16 08:20 INR, PTT INR 1.16 (0.82-1.09) H 08/13/16 12:37 Troponin, BNP 08/13/16 08/14/16 19:45 08:20 Troponin I < 0.02 < 0.02 Troponin, BNP 08/13/16 08/14/16 19:45 08:20 Troponin I < 0.02 < 0.02 Echo: Image Reviewed Ejection Fraction %: LVEF > or = 40 % Imaging - Results Chest X-ray: Report Reviewed EKG: Image Reviewed Problem List - Problems (1) Chest pain Code(s): R07.9 - CHEST PAIN, UNSPECIFIED Qualifiers: Chest pain type: unspecified Qualified Code(s): R07.9 - Chest pain, unspecified Assessment/Plan This is a 61yo woman with PMH of COPD, HTN, seizure, SLE, DM, hypothyroid, DANY on CPAP who presents today with 3-4 days of midsternal chest pain radiating to left shoulder into hands and also her left leg. She reports associated SOB, MYERS , nausea and vomiting. She has been experiencing these symptoms intermittently over past few weeks. Nuclear Stress Test done 07/09/16: nl ecg, mild anteroseptal ischemia, nl lvef 79 % Echocaridogram 03/05/16: normal LV systolic function, mild mr/tr 1) CAD/Chest pain -Given recurrent chest pain and admissions with NST with mild anteroseptal ischemia patient had been planned for cardiac cath as outpatient in another week or so. Discussed with patient and she agrees on having it done sooner given symptoms. Will plan for transfer tomorrow to [facility] and cardiac cath on Tuesday08/16/16 if patient is agreement. Aspirin 81mg daily Would uptitrate atorvastatin as tolerates. Was on 10mg at home increase to 20mg and if no complaints will continue to increase. Started on low dose metoprolol 25mg bid Continue telemetry monitoring Repeat ekg today and daily ekgs. Trend CE's Please call with any change in clinical status
--- NOTE | 2016-08-14 14:54 | EKG ---
Test Reason : Blood Pressure : / mmHG Vent. Rate : 080 BPM Atrial Rate : 080 BPM P-R Int : 164 ms QRS Dur : 084 ms QT Int : 362 ms P-R-T Axes : 038 -16 053 degrees QTc Int : 417 ms NORMAL SINUS RHYTHM VOLTAGE CRITERIA FOR LEFT VENTRICULAR HYPERTROPHY ABNORMAL ECG WHEN COMPARED WITH ECG OF 20-MAY-2016 13:45, NO SIGNIFICANT CHANGE WAS FOUND Confirmed by KIKI SYED MD ([id number]) on 08/14/2016 2:53:56 PM Referred By: Confirmed By:KIKI SYED MD
[2016-08-14] MEDS: INSULIN DETEMIR 100 UNITS/ML MDV SQ SCH (21:36)
[2016-08-14] MEDS: ATORVASTATIN CA 10 MG TABLET (FP) PO SCH (21:37)
[2016-08-14] MEDS ORDERED: ACETAMINOPHEN 325 MG TABLET (FP) PO PRN (22:20)
[2016-08-14] MEDS: predniSONE 10 MG TABLET (UD) PO SCH (22:56)
[2016-08-15] MEDS: ALBUTEROL SO4 2.5/IPRATROPIUM 0.5 INH SOL 3 ML VIAL.NEB. NEB SCH ×4 (00:04→17:03)
[2016-08-15] MEDS: LEVOTHYROXINE NA 50 MCG TABLET (FP) PO SCH (06:08)
[2016-08-15] MEDS: INSULIN SLIDING SCALE (NOVOLOG) 1 VIAL SQ SCH ×2 (06:08→12:30)
--- NOTE | 2016-08-15 07:23 | DS ---
Physical Exam: SUBJECTIVE: Patient seen and examined. OBJECTIVE: Vital Signs Period Temp Pulse Resp BP Sys/Oconnell Pulse Ox Last 24 Hr 97 F-99 F 66-97 18-20 93-150/41-68 97-97 PHYSICAL EXAM GENERAL: The patient is awake, alert, and fully oriented, in no acute distress. HEAD: Normal with no signs of trauma. LUNGS: Breath sounds equal, clear to auscultation bilaterally, no wheezes, no crackles, no accessory muscle use. HEART: Regular rate and rhythm, S1, S2, + systolic murmur ABDOMEN: morbidly obese, soft, nontender, nondistended, normoactive bowel sounds , no guarding, no rebound NEUROLOGICAL: Cranial nerves II through XII grossly intact. Normal speech, gait not observed. Moving all extremities freely. Laboratory Results - last 24 hr 08/14/16 08/14/16 08/14/16 08:20 08:20 08:20 WBC 6.6 RBC 3.76 Hgb 11.0 Hct 33.7 MCV 89.5 MCHC 32.6 RDW 17.0 H Plt Count 320 MPV 7.9 Neutrophils % 48.2 D Lymphocytes % 43.0 H D Monocytes % 6.7 D Eosinophils % 0.6 D Basophils % 1.5 Sodium 141 Potassium 3.9 Chloride 105 Carbon Dioxide 26 Anion Gap 10 BUN 17 D Creatinine 1.2 H Creat Clearance w eGFR 45.83 POC Glucometer Random Glucose 121 H D Hemoglobin A1c % 6.9 H D Calcium 8.7 Total Bilirubin 0.2 D AST 20 D ALT 26 Alkaline Phosphatase 119 H Creatine Kinase Troponin I Total Protein 6.8 Albumin 3.2 L Triglycerides 172 H D Cholesterol 146 Total LDL Cholesterol 95 HDL Cholesterol 35 L D 08/14/16 08/14/16 08/14/16 08:20 08:20 12:02 WBC RBC Hgb Hct MCV MCHC RDW Plt Count MPV Neutrophils % Lymphocytes % Monocytes % Eosinophils % Basophils % Sodium Potassium Chloride Carbon Dioxide Anion Gap BUN Creatinine Creat Clearance w eGFR POC Glucometer 218 Random Glucose Hemoglobin A1c % Calcium Total Bilirubin AST ALT Alkaline Phosphatase Creatine Kinase 136 Troponin I < 0.02 Total Protein Albumin Triglycerides Cancelled Cholesterol Cancelled Total LDL Cholesterol Cancelled HDL Cholesterol Cancelled 08/14/16 08/14/16 08/15/16 17:17 21:34 05:43 WBC RBC Hgb Hct MCV MCHC RDW Plt Count MPV Neutrophils % Lymphocytes % Monocytes % Eosinophils % Basophils % Sodium Potassium Chloride Carbon Dioxide Anion Gap BUN Creatinine Creat Clearance w eGFR POC Glucometer 157 152 162 Random Glucose Hemoglobin A1c % Calcium Total Bilirubin AST ALT Alkaline Phosphatase Creatine Kinase Troponin I Total Protein Albumin Triglycerides Cholesterol Total LDL Cholesterol HDL Cholesterol HOSPITAL COURSE: Date of Admission:08/13/16 Date of Discharge: 08/15/16 Cardiac testing: Echocaridogram 03/05/16: normal LV systolic function, mild mr/tr Stress Test 07/09/16: No ischemic EKG changes and no arrhythmias with dobutamine infusion. Mild anteroseptal ischemia. LVEF- 79% ASSESSMENT/PLAN 61 year-old female with a PMH of HTN, CAD, COPD, IDDM, hypothyroidism, SLE, migraines, seizure disorder, depression, and DANY on CPAP, admitted for midsternal chest pain. Chest pain CAD --troponins negative x 3 --has recurrent symptoms, multiple risk factors, and recent stress showed mild anteroseptal ischemia --discussed with Dr. Edmonds, will transfer patient tomorrow to [facility] for cath --patient had been scheduled to go to [facility] for cath next week, but given new admission, prudent to send for cath promptly; plan discussed with patient and she agrees --continue ASA, Lipitor, metoprolol Hypertension --BP well-controlled --continued metoprolol, losartan COPD, chronic --continued Symbicort IDDM --continued Levemir (NOTE: Could not include on medication reconciliation; this is a home medication that should be continued) --Novolog sliding scale coverage Hypothyroidism --continued levothyroxine SLE --continue Plaquenil --methotrexate every Tuesday DANY --CPAP overnight Seizure disorder --continued tegretol Mirgraines --continued Topamax Hypothyroidism --continued levothyroxine Depression --continued Zoloft F/E/N Fluids: PO intake adequate Electrolytes: replete as indicated Nutrition: cholesterol sodium controlled; NPO after midnight for possible cath tomorrow DVT prophylaxis: subq heparin, oob, ambulation Dispo: transfer to [facility] for cardiac catheterization. Minutes to complete discharge: 35 Discharge Summary Reason For Visit: CHEST PAIN Current Active Problems Atypical chest pain (Acute) COPD (chronic obstructive pulmonary disease) (Acute) Chest pain (Acute) CKD (chronic kidney disease) stage 3, GFR 30-59 ml/min (Chronic) Sleep apnea, obstructive (Chronic) Condition: Stable - Instructions Diet, Activity, Other Instructions: Patient is being transferred to [facility] for cardiac catheterization. Referrals: Goran Hernandez MD [Primary Care Provider] - Disposition: TRANSFER ACUTE CARE/OTHER HOSP - Home Medications Comprehensive Discharge Medication List: Ambulatory Orders Albuterol Sulfate Inhaler - [Ventolin HFA Inhaler -] 1 - 2 inh PO QID PRN Atorvastatin Ca [Lipitor] 10 mg PO DAILY 10/20/15 Biotin [Hard Nails] 5,000 mcg PO DAILY 10/20/15 Budesonide/Formeterol Fumarate [SYMBICORT 160/4.5mcg -] 1 inh PO BID 10/20/15 Carbamazepine Xr [Tegretol XR -] 300 mg PO BID 10/20/15 Folic Acid 2 mg PO DAILY 10/20/15 L.acidop,Daren,Lac,Rha/B.lac,Edmundo [Advanced Probiotic Capsule] 625 mg PO DAILY 06/29 Levothyroxine [Synthroid -] 50 mcg PO DAILY 10/20/15 Linaclotide [Linzess] 145 mcg PO DAILY 10/20/15 Methotrexate [Mexate -] 12.5 mg PO Q7D 10/20/15 Montelukast Na [Singulair -] 10 mg PO DAILY 10/20/15 [place]-3 Fatty Acids [[place]-3] 2 tab PO DAILY 10/20/15 Omeprazole [Prilosec] 40 mg PO DAILY 10/20/15 Sertraline HCl [Zoloft -] 100 mg PO DAILY 10/20/15 Topiramate [Trokendi Xr] 100 mg PO BID 10/20/15 Umeclidinium [place] [Incruse Ellipta] 62.5 mcg IH ASDIR 10/20/15 Albuterol 2.5/Ipratropium 0.5 [Duoneb -] 1 amp NEB QIDR #10 amp 03/09/16 Insulin Sliding Scale [Novolog Vial Sliding Scale -] See Protocol SQ AC #1 units 05/23/16 Exenatide [Byetta] 10 mcg SQ BID 08/13/16 Glipizide 10 mg PO BID 08/13/16 Hydroxychloroquine Sulfate [Plaquenil] 200 mg PO BID 08/13/16 Insulin Glargine,Hum.rec.anlog [Lantus (10mL VIAL) -] 23 units SQ DAILY Losartan Potassium [Cozaar -] 50 mg PO DAILY 08/13/16 Pramipexole Dihydrochloride [Mirapex -] 0.5 mg PO ASDIR 08/13/16 Aspirin [ASA -] 325 mg PO DAILY tablet 08/15/16 Metoprolol Tartrate [Lopressor -] 25 mg PO BID tablet 08/15/16 Prednisone [Deltasone -] 10 mg PO DAILY tablet 08/15/16 This patient is new to me today: No Emergency Visit: Yes ED Registration Date: 08/13/16 Care time: The patient presented to the Emergency Department on the above date and was hospitalized for further evaluation of their emergent condition. Critical Care patient: No - Discharge Referral Referred to [facility] No
[2016-08-15] MEDS: OMEGA-3 ACID ETHYL ESTERS (FATTY-ACIDS) 1 GM CAPSULE (FP) PO SCH (09:13)
[2016-08-15] MEDS: SERTRALINE HCL 50 MG TABLET (FP) PO SCH (09:14)
[2016-08-15] MEDS: PANTOPRAZOLE 40 MG TABLET (FP) PO SCH (09:15)
[2016-08-15] MEDS: predniSONE 10 MG TABLET (UD) PO SCH (09:15)
[2016-08-15] MEDS: METOPROLOL TARTRATE 25 MG TABLET (FP) PO SCH (09:15)
[2016-08-15] MEDS: ASPIRIN 325 MG TABLET PO SCH (09:15)
[2016-08-15] MEDS: FOLIC ACID 1 MG TABLET (FP) PO SCH (09:15)
[2016-08-15] MEDS: LOSARTAN POTASSIUM 50 MG TABLET (FP) PO SCH (09:15)
[2016-08-15] MEDS: HEPARIN NA (PORCINE) 5,000 UNITS/ML 1ML VIAL SQ SCH (09:15)
[2016-08-15] MEDS: HYDROXYCHLOROQUINE SO4 200 MG TABLET (FP) PO SCH (09:16)
[2016-08-15] MEDS: TOPIRAMATE 100 MG TABLET PO SCH (09:16)
[2016-08-15] MEDS: BUDESONIDE/FORMETEROL FUMARATE 160/4.5 mcg INHALER IH SCH (09:17)
--- NOTE | 2016-08-15 13:33 | PN ---
Progress Note, Physician Chief Complaint: Chest pain History of Present Illness: This is a 61yo woman with PMH of COPD, HTN, seizure, SLE, DM, hypothyroid, DANY on CPAP who presents today with 3-4 days of midsternal chest pain radiating to left shoulder into hands and also her left leg. She reports associated SOB, MYERS , nausea and vomiting. She has been experiencing these symptoms intermittently over past few weeks. Nuclear Stress Test done 07/09/16: nl ecg, mild anteroseptal ischemia, nl lvef 79 % Echocaridogram 03/05/16: normal LV systolic function, mild mr/tr - Current Medication List Current Medications: Active Medications Acetaminophen (Tylenol -) 650 mg PO Q6H PRN PRN Reason: FEVER OR PAIN Last Admin: 08/14/16 22:55 Dose: 650 mg Albuterol/Ipratropium (Duoneb -) 1 amp NEB QIDR [facility] Last Admin: 08/15/16 11:11 Dose: 1 amp Aspirin (Asa -) 325 mg PO DAILY [facility] Last Admin: 08/15/16 09:15 Dose: 325 mg Atorvastatin Calcium (Lipitor -) 10 mg PO HS [facility] Last Admin: 08/14/16 21:37 Dose: 10 mg Budesonide/Formoterol Fumarate (Symbicort 160/4.5mcg -) 1 puff IH BID [facility] Last Admin: 08/15/16 09:17 Dose: 1 puff Carbamazepine (Tegretol Xr -) 300 mg PO BID [facility] Last Admin: 08/15/16 09:17 Dose: 300 mg Folic Acid (Folic Acid -) 2 mg PO DAILY [facility] Last Admin: 08/15/16 09:15 Dose: 2 mg Heparin Sodium (Porcine) (Heparin -) 5,000 unit SQ BID [facility] Last Admin: 08/15/16 09:15 Dose: 5,000 unit Hydroxychloroquine Sulfate (Plaquenil -) 200 mg PO BID [facility] Last Admin: 08/15/16 09:16 Dose: 200 mg Insulin Aspart (Novolog Vial Sliding Scale -) 1 vial SQ ACHS [facility] PRN Reason: Protocol Last Admin: 08/15/16 12:30 Dose: 2 units Insulin Detemir (Levemir Vial) 17 units SQ HS [facility] Last Admin: 08/14/16 21:36 Dose: 17 units Levothyroxine Sodium (Synthroid -) 50 mcg PO ACBK [facility] Last Admin: 08/15/16 06:08 Dose: 50 mcg Losartan Potassium (Cozaar -) 50 mg PO DAILY [facility] Last Admin: 08/15/16 09:15 Dose: 50 mg Metoprolol Tartrate (Lopressor -) 25 mg PO BID [facility] Last Admin: 08/15/16 09:15 Dose: 25 mg Non-Formulary Medication (Linaclotide [Linzess]) 145 mcg PO DAILY [facility] Non-Formulary Medication (Me-Thfolate Gluc/B12/Herb #236 [Rheumate Capsule]) 1 each PO DAILY [facility] Non-Formulary Medication (Umeclidinium [place] [Incruse Ellipta]) 62.5 mcg IH ASDIR [facility] Last Admin: 08/13/16 17:56 Dose: Not Given [id number] Ethyl Esters (Lovaza -) 2 gm PO DAILY [facility] Last Admin: 08/15/16 09:13 Dose: 2 gm Pantoprazole Sodium (Protonix -) 40 mg PO DAILY [facility] Last Admin: 08/15/16 09:15 Dose: 40 mg Prednisone (Deltasone -) 10 mg PO DAILY [facility] Last Admin: 08/15/16 09:15 Dose: 10 mg Sertraline HCl (Zoloft -) 100 mg PO DAILY [facility] Last Admin: 08/15/16 09:14 Dose: 100 mg Topiramate (Topamax -) 100 mg PO BID [facility] Last Admin: 08/15/16 09:16 Dose: 100 mg - Objective Vital Signs: Vital Signs Temperature 98 F 08/15/16 06:00 Pulse Rate 89 08/15/16 06:00 Respiratory Rate 20 08/15/16 06:00 Blood Pressure 117/58 08/15/16 06:00 O2 Sat by Pulse Oximetry (%) 97 08/14/16 21:00 Constitutional: Yes: No Distress Neck: Yes: Supple Cardiovascular: Yes: Regular Rate and Rhythm. No: JVD, Murmur Respiratory: Yes: CTA Bilaterally Gastrointestinal: Yes: Normal Bowel Sounds, Soft Edema: No Labs: CBC, BMP 08/14/16 08:20 08/14/16 08:20 INR, PTT INR 1.16 (0.82-1.09) H 08/13/16 12:37 Problem List - Problems (1) Chest pain Code(s): R07.9 - CHEST PAIN, UNSPECIFIED Qualifiers: Chest pain type: unspecified Qualified Code(s): R07.9 - Chest pain, unspecified Assessment/Plan This is a 61yo woman with PMH of COPD, HTN, seizure, SLE, DM, hypothyroid, DANY on CPAP who presents today with 3-4 days of midsternal chest pain radiating to left shoulder into hands and also her left leg. She reports associated SOB, MYERS , nausea and vomiting. She has been experiencing these symptoms intermittently over past few weeks. Nuclear Stress Test done 07/09/16: nl ecg, mild anteroseptal ischemia, nl lvef 79 % Echocaridogram 03/05/16: normal LV systolic function, mild mr/tr 1) CAD/Chest pain -Given recurrent chest pain and admissions with NST with mild anteroseptal ischemia patient had been planned for cardiac cath as outpatient in another week or so. Discussed with patient and she agrees on having it done sooner given symptoms. Will plan for transfer to [facility] and cardiac cath on Tuesday08/16/16 Discussed benefits and risks of cardiac cath including not limited to bleeding, infection, allergy, vascular damage, renal damage, heart attack, stroke, , and emergent surgery.. Aspirin 81mg daily Would uptitrate atorvastatin as tolerates. Was on 10mg at home increase to 20mg and if no complaints will continue to increase. Low dose metoprolol 25mg bid Continue telemetry monitoring
--- NOTE | 2016-08-15 14:35 | PN ---
Physical Exam: SUBJECTIVE: Patient seen and examined OBJECTIVE: Vital Signs Period Temp Pulse Resp BP Sys/Oconnell Pulse Ox Last 24 Hr 98 F-98.2 F 66-89 20-20 93-150/41-68 97 Laboratory Results - last 24 hr 08/14/16 08/14/16 08/15/16 17:17 21:34 05:43 POC Glucometer 157 152 162 08/15/16 11:11 POC Glucometer 161 Active Medications Generic Name Dose Route Start Last Admin Trade Name Freq PRN Reason Stop Dose Admin Acetaminophen 650 mg 08/14/16 22:20 08/14/16 22:55 Tylenol - PO 650 mg Q6H PRN Administration FEVER OR PAIN Albuterol/Ipratropium 1 amp 08/13/16 18:00 08/15/16 11:11 Duoneb - NEB 1 amp QIDR DONTA Administration Aspirin 325 mg 08/14/16 10:00 08/15/16 09:15 Asa - PO 325 mg DAILY DONTA Administration Atorvastatin Calcium 10 mg 08/13/16 22:00 08/14/16 21:37 Lipitor - PO 10 mg HS DONTA Administration Budesonide/Formoterol Fumarate 1 puff 08/13/16 22:00 08/15/16 09:17 Symbicort 160/4.5mcg - IH 1 puff BID DONTA Administration Carbamazepine 300 mg 08/13/16 22:00 08/15/16 09:17 Tegretol Xr - PO 300 mg BID DONTA Administration Folic Acid 2 mg 08/14/16 10:00 08/15/16 09:15 Folic Acid - PO 2 mg DAILY DONTA Administration Heparin Sodium (Porcine) 5,000 unit 08/13/16 22:00 08/15/16 09:15 Heparin - SQ 5,000 unit BID DONTA Administration Hydroxychloroquine Sulfate 200 mg 08/13/16 22:00 08/15/16 09:16 Plaquenil - PO 200 mg BID DONTA Administration Insulin Aspart 1 vial 08/13/16 16:30 08/15/16 12:30 Novolog Vial Sliding Scale - SQ 2 units ACHS DONTA Administration Protocol Insulin Detemir 17 units 08/13/16 22:00 08/14/16 21:36 Levemir Vial SQ 17 units HS DONTA Administration Levothyroxine Sodium 50 mcg 08/14/16 07:00 08/15/16 06:08 Synthroid - PO 50 mcg ACBK DONTA Administration Losartan Potassium 50 mg 08/14/16 10:00 08/15/16 09:15 Cozaar - PO 50 mg DAILY DONTA Administration Metoprolol Tartrate 25 mg 08/13/16 22:00 08/15/16 09:15 Lopressor - PO 25 mg BID DONTA Administration Non-Formulary Medication 145 mcg 08/14/16 10:00 Linaclotide [Linzess] PO DAILY DONTA Non-Formulary Medication 1 each 08/14/16 10:00 Me-Thfolate Gluc/B12/Herb #236 [Rheumate Capsule] PO DAILY DONTA Non-Formulary Medication 62.5 mcg 08/13/16 16:15 08/13/16 17:56 Umeclidinium [place] [Incruse Ellipta] IH Not Given ASDIR DONTA Ncvii-4-Uatn Ethyl Esters 2 gm 08/14/16 10:00 08/15/16 09:13 Lovaza - PO 2 gm DAILY DONTA Administration Pantoprazole Sodium 40 mg 08/14/16 10:00 08/15/16 09:15 Protonix - PO 40 mg DAILY DONTA Administration Prednisone 10 mg 08/14/16 22:30 08/15/16 09:15 Deltasone - PO 10 mg DAILY DONTA Administration Sertraline HCl 100 mg 08/14/16 10:00 08/15/16 09:14 Zoloft - PO 100 mg DAILY DONTA Administration Topiramate 100 mg 08/13/16 22:00 08/15/16 09:16 Topamax - PO 100 mg BID DONTA Administration ASSESSMENT/PLAN:
[2016-08-15 14:56] VITALS: BP 98/31; PULSE 66; TEMP 98.6
--- NOTE | 2016-08-15 15:42 | DS ---
Physical Exam: SUBJECTIVE: Patient seen and examined. OBJECTIVE: Vital Signs Period Temp Pulse Resp BP Sys/Oconnell Pulse Ox Last 24 Hr 98 F-98.6 F 66-89 20-20 93-150/31-68 97-99 PHYSICAL EXAM GENERAL: The patient is awake, alert, and fully oriented, in no acute distress. HEAD: Normal with no signs of trauma. LUNGS: Breath sounds equal, clear to auscultation bilaterally, no wheezes, no crackles, no accessory muscle use. HEART: Regular rate and rhythm, S1, S2, + systolic murmur ABDOMEN: morbidly obese, soft, nontender, nondistended, normoactive bowel sounds , no guarding, no rebound NEUROLOGICAL: Cranial nerves II through XII grossly intact. Normal speech, gait not observed. Moving all extremities freely. CBCD WBC 6.6 K/mm3 (4.0-10.0) 08/14/16 08:20 RBC 3.76 M/mm3 (3.60-5.2) 08/14/16 08:20 Hgb 11.0 GM/dL (10.7-15.3) 08/14/16 08:20 Hct 33.7 % (32.4-45.2) 08/14/16 08:20 MCV 89.5 fl (80-96) 08/14/16 08:20 MCHC 32.6 g/dl (32.0-36.0) 08/14/16 08:20 RDW 17.0 % (11.6-15.6) H 08/14/16 08:20 Plt Count 320 K/MM3 (134-434) 08/14/16 08:20 MPV 7.9 fl (7.5-11.1) 08/14/16 08:20 CMP Sodium 141 mmol/L (136-145) 08/14/16 08:20 Potassium 3.9 mmol/L (3.5-5.1) 08/14/16 08:20 Chloride 105 mmol/L (98-107) 08/14/16 08:20 Carbon Dioxide 26 mmol/L (21-32) 08/14/16 08:20 Anion Gap 10 (8-16) 08/14/16 08:20 BUN 17 mg/dL (7-18) D 08/14/16 08:20 Creatinine 1.2 mg/dL (0.55-1.02) H 08/14/16 08:20 Creat Clearance w eGFR 45.83 (>60) 08/14/16 08:20 Calcium 8.7 mg/dL (8.5-10.1) 08/14/16 08:20 Total Bilirubin 0.2 mg/dL (0.2-1.0) D 08/14/16 08:20 AST 20 U/L (15-37) D 08/14/16 08:20 ALT 26 U/L (12-78) 08/14/16 08:20 Alkaline Phosphatase 119 U/L (45-117) H 08/14/16 08:20 Total Protein 6.8 g/dl (6.4-8.2) 08/14/16 08:20 Albumin 3.2 g/dl (3.4-5.0) L 08/14/16 08:20 HOSPITAL COURSE: Date of Admission:08/13/16 Date of Discharge: 08/15/16 Cardiac testing: Echocaridogram 03/05/16: normal LV systolic function, mild mr/tr Stress Test 07/09/16: No ischemic EKG changes and no arrhythmias with dobutamine infusion. Mild anteroseptal ischemia. LVEF- 79% 61 year-old female with a PMH of HTN, CAD, COPD, IDDM, hypothyroidism, SLE, migraines, seizure disorder, depression, and DANY on CPAP, admitted for midsternal chest pain. Chest pain CAD --troponins negative x 3 --has recurrent symptoms, multiple risk factors, and recent stress showed mild anteroseptal ischemia --discussed with Dr. Edmonds, will transfer patient to [facility] for cath --patient had been scheduled to go to [facility] for cath next week, but given new admission, prudent to send for cath promptly; plan discussed with patient and she agrees --continued ASA, Lipitor, metoprolol Hypertension --BP well-controlled --continued metoprolol, losartan COPD, chronic --continued Symbicort IDDM --continued Levemir --Novolog sliding scale coverage SLE --continued Plaquenil --methotrexate every Tuesday DANY --CPAP overnight Seizure disorder --continued tegretol Mirgraines --continued Topamax Hypothyroidism --continue levothyroxine Depression --continued Zoloft Dispo: transferred to [facility] for cardiac catheterization. Minutes to complete discharge: 35 Discharge Summary Reason For Visit: CHEST PAIN Current Active Problems Atypical chest pain (Acute) COPD (chronic obstructive pulmonary disease) (Acute) Chest pain (Acute) CKD (chronic kidney disease) stage 3, GFR 30-59 ml/min (Chronic) Sleep apnea, obstructive (Chronic) Condition: Stable - Instructions Diet, Activity, Other Instructions: Patient is being transferred to [facility] for cardiac catheterization. Referrals: Goran Hernandez MD [Primary Care Provider] - Disposition: TRANSFER ACUTE CARE/OTHER HOSP - Home Medications Comprehensive Discharge Medication List: Ambulatory Orders Albuterol Sulfate Inhaler - [Ventolin HFA Inhaler -] 1 - 2 inh PO QID PRN Atorvastatin Ca [Lipitor] 10 mg PO DAILY 10/20/15 Biotin [Hard Nails] 5,000 mcg PO DAILY 10/20/15 Budesonide/Formeterol Fumarate [SYMBICORT 160/4.5mcg -] 1 inh PO BID 10/20/15 Carbamazepine Xr [Tegretol XR -] 300 mg PO BID 10/20/15 Folic Acid 2 mg PO DAILY 10/20/15 L.acidop,Daren,Lac,Rha/B.lac,Edmundo [Advanced Probiotic Capsule] 625 mg PO DAILY 06/29 Levothyroxine [Synthroid -] 50 mcg PO DAILY 10/20/15 Linaclotide [Linzess] 145 mcg PO DAILY 10/20/15 Methotrexate [Mexate -] 12.5 mg PO Q7D 10/20/15 Montelukast Na [Singulair -] 10 mg PO DAILY 10/20/15 [place]-3 Fatty Acids [[place]-3] 2 tab PO DAILY 10/20/15 Omeprazole [Prilosec] 40 mg PO DAILY 10/20/15 Sertraline HCl [Zoloft -] 100 mg PO DAILY 10/20/15 Topiramate [Trokendi Xr] 100 mg PO BID 10/20/15 Umeclidinium [place] [Incruse Ellipta] 62.5 mcg IH ASDIR 10/20/15 Albuterol 2.5/Ipratropium 0.5 [Duoneb -] 1 amp [facility] QIDR #10 amp 03/09/16 Insulin Sliding Scale [Novolog Vial Sliding Scale -] See Protocol SQ AC #1 units 05/23/16 Exenatide [Byetta] 10 mcg SQ BID 08/13/16 Glipizide 10 mg PO BID 08/13/16 Hydroxychloroquine Sulfate [Plaquenil] 200 mg PO BID 08/13/16 Insulin Glargine,Hum.rec.anlog [Lantus (10mL VIAL) -] 23 units SQ DAILY Losartan Potassium [Cozaar -] 50 mg PO DAILY 08/13/16 Pramipexole Dihydrochloride [Mirapex -] 0.5 mg PO ASDIR 08/13/16 Aspirin [ASA -] 325 mg PO DAILY tablet 08/15/16 Metoprolol Tartrate [Lopressor -] 25 mg PO BID tablet 08/15/16 Prednisone [Deltasone -] 10 mg PO DAILY tablet 08/15/16 This patient is new to me today: No Emergency Visit: Yes ED Registration Date: 08/13/16 Care time: The patient presented to the Emergency Department on the above date and was hospitalized for further evaluation of their emergent condition. Critical Care patient: No - Discharge Referral Referred to [facility] No
== END 2016-08-15 18:38 | disposition short-term general hospital (02) ==
LOC: JER 12:10 → JERBED 16:22 → J4W 20:04
PROVIDERS: ADMIT Internal Medicine; ATTEND Nurse Practitioner Acute Care
PROC: 3E033NZ Introduction of Analgesics, Hypnotics, Sedatives into Peripheral Vein, Percutaneous Approach (ICD-10-PCS; principal; 2016-08-13)
PROC: 3E013VG Introduction of Insulin into Subcutaneous Tissue, Percutaneous Approach (ICD-10-PCS; 2016-08-13)
PROC: 3E013GC Introduction of Other Therapeutic Substance into Subcutaneous Tissue, Percutaneous Approach (ICD-10-PCS; 2016-08-13)
PROC: 3E0F7GC Introduction of Other Therapeutic Substance into Respiratory Tract, Via Natural or Artificial Opening (ICD-10-PCS; 2016-08-13)
PROC: 3E0F7GC Introduction of Other Therapeutic Substance into Respiratory Tract, Via Natural or Artificial Opening (ICD-10-PCS; 2016-08-13)
DX: R07.9 Chest pain, unspecified (principal); I10 Essential (primary) hypertension; I25.10 Atherosclerotic heart disease of native coronary artery without angina pectoris; I50.9 Heart failure, unspecified; E11.9 Type 2 diabetes mellitus without complications; E78.5 Hyperlipidemia, unspecified; E03.9 Hypothyroidism, unspecified; E66.9 Obesity, unspecified; J45.909 Unspecified asthma, uncomplicated; J44.9 Chronic obstructive pulmonary disease, unspecified; M32.9 Systemic lupus erythematosus, unspecified; G40.909 Epilepsy, unspecified, not intractable, without status epilepticus; K21.9 Gastro-esophageal reflux disease without esophagitis; Z68.42 Body mass index [BMI] 45.0-49.9, adult; Z99.81 Dependence on supplemental oxygen; Z79.4 Long term (current) use of insulin; Z96.641 Presence of right artificial hip joint; Z88.0 Allergy status to penicillin; Z88.8 Allergy status to other drugs, medicaments and biological substances; G47.30 Sleep apnea, unspecified; F32.9 Major depressive disorder, single episode, unspecified
CPT/HCPCS: 36415; 71010-TC; 80053; 80061; 82550; 82553; 83036; 83721; 83735; 84484; 85025; 85610; 86850; 86900; 86901; 93005; 93010; 94640; 99284-25; G0378; J1644

== ENCOUNTER 2016-10-12 15:02 | Emergency (ER) | payer OTHER ==
[2016-10-12 15:14] VITALS: BP 127/60; PULSE 93; TEMP 97.8; BMI 47.5
--- NOTE | 2016-10-12 15:56 | PDOC ---
History of Present Illness - General Chief Complaint: Pain Stated Complaint: PAIN rt calf, o2 dependant Time Seen by Provider: 10/12/16 15:31 History Source: Patient Exam Limitations: No Limitations Past History - Past Medical History Allergies/Adverse Reactions: Allergies Allergy/AdvReac Type Severity Reaction Status Date / Time gabapentin [From Neurontin] Allergy PALPITATIONS, Verified 10/12/16 15:09 PASSES OUT Penicillins Allergy TONGUE Verified 10/12/16 15:09 Swelling phenytoin sodium Allergy diarrhea/vo Verified 10/12/16 15:09 [From Dilantin] miting phenytoin sodium extended Allergy Verified 10/12/16 15:09 [From Dilantin] theophylline [Theophylline] Allergy diarrhea,SE Verified 10/12/16 15:09 IZURES Home Medications: Ambulatory Orders Albuterol Sulfate Inhaler - [Ventolin HFA Inhaler -] 1 - 2 inh PO QID PRN Atorvastatin Ca [Lipitor] 10 mg PO DAILY 10/20/15 Biotin [Hard Nails] 5,000 mcg PO DAILY 10/20/15 Budesonide/Formeterol Fumarate [SYMBICORT 160/4.5mcg -] 1 inh PO BID 10/20/15 Carbamazepine Xr [Tegretol XR -] 300 mg PO BID 10/20/15 Folic Acid 2 mg PO DAILY 10/20/15 L.acidop,Daren,Lac,Rha/B.lac,Edmundo [Advanced Probiotic Capsule] 625 mg PO DAILY 06/29 Levothyroxine [Synthroid -] 50 mcg PO DAILY 10/20/15 Linaclotide [Linzess] 145 mcg PO DAILY 10/20/15 Methotrexate [Mexate -] 12.5 mg PO Q7D 10/20/15 Montelukast Na [Singulair -] 10 mg PO DAILY 10/20/15 [place]-3 Fatty Acids [[place]-3] 2 tab PO DAILY 10/20/15 Omeprazole [Prilosec] 40 mg PO DAILY 10/20/15 Sertraline HCl [Zoloft -] 100 mg PO DAILY 10/20/15 Topiramate [Trokendi Xr] 100 mg PO BID 10/20/15 Umeclidinium [place] [Incruse Ellipta] 62.5 mcg IH ASDIR 10/20/15 Albuterol 2.5/Ipratropium 0.5 [Duoneb -] 1 amp NEB QIDR #10 amp 03/09/16 Insulin Sliding Scale [Novolog Vial Sliding Scale -] See Protocol SQ AC #1 units 05/23/16 Exenatide [Byetta] 10 mcg SQ BID 08/13/16 Glipizide 10 mg PO BID 08/13/16 Hydroxychloroquine Sulfate [Plaquenil] 200 mg PO BID 08/13/16 Insulin Glargine,Hum.rec.anlog [Lantus (10mL VIAL) -] 23 units SQ DAILY Losartan Potassium [Cozaar -] 50 mg PO DAILY 08/13/16 Pramipexole Dihydrochloride [Mirapex -] 0.5 mg PO ASDIR 08/13/16 Furosemide [Lasix] 40 mg PO DAILY 10/12/16 Prednisone [Deltasone -] 5 mg PO DAILY 10/12/16 Anemia: No Asthma: Yes Cancer: No Cardiac Disorders: Yes (CAD) CVA: No COPD: Yes (O2 DEPENDANT) CHF: No Dementia: No Diabetes: Yes (IDDM) GI Disorders: Yes (REFLUX) Disorders: No HTN: Yes Hypercholesterolemia: Yes Liver Disease: No Seizures: Yes Thyroid Disease: Yes (HYPO) - Surgical History Abdominal Surgery: No Appendectomy: No Cardiac Surgery: No Cholecystectomy: Yes Lung Surgery: No Neurologic Surgery: No Orthopedic Surgery: Yes (08/2014 R HIP REPLACEMENT, BILAT KNEE ARTHROSCOPY, BILAT BUNIONECTOMY,) - Immunization History Immunization Up to Date: Yes - Psycho/Social/Smoking Cessation Hx Anxiety: No Suicidal Ideation: No Smoking Status: Yes Smoking History: Former smoker Have you smoked in the past 12 months: No Number of Cigarettes Smoked Daily: 0 If you are a former smoker, when did you quit?: 2004 Information on smoking cessation initiated: No Hx Alcohol Use: No Drug/Substance Use Hx: No Substance Use Type: Alcohol, Cocaine, Marijuana Hx Substance Use Treatment: No Review of Systems - Review of Systems Constitutional: No: Chills, Fever, Malaise, Weakness Cardiac (ROS): No: Chest Pain, Lightheadedness, Palpitations, Chest Tightness Musculoskeletal: Yes: Muscle Pain (R lower leg pain) Integumentary: Yes: Bruising (R calf) Neurological: No: Headache, Numbness, Paresthesia, Weakness *Physical Exam - Vital Signs Last Vital Signs Temp Pulse Resp BP Pulse Ox 97.8 F 93 H 18 127/60 98 10/12/16 15:10 10/12/16 15:10 10/12/16 15:10 10/12/16 15:10 10/12/16 15:10 - Physical Exam Comments: 10/12/16 18:52 GENERAL: Well developed, well nourished. Awake and alert. No acute distress. HEENT: Normocephalic, atraumatic. PERRLA, EOMI. No conjunctival pallor. Sclera are non- icteric. Moist mucous membranes. Oropharynx is clear. NECK: Supple. Full ROM. No JVD. Carotid pulses 2+ and symmetric, without bruits. No thyromegaly. No lymphadenopathy. CARDIOVASCULAR: Regular rate and rhythm. No murmurs, rubs, or gallops. Distal pulses are 2+ and symmetric. PULMONARY: No evidence of respiratory distress. Lungs clear to auscultation bilaterally. No wheezing, rales or rhonchi. ABDOMINAL: Soft. Non-tender. Non-distended. No rebound or guarding. No organomegaly. Normoactive bowel sounds. MUSCULOSKELETAL Normal range of motion at all joints. No bony deformities or tenderness. No CVA tenderness. EXTREMITIES: No cyanosis. No clubbing. No edema. No calf tenderness. SKIN: Warm and dry. Normal capillary refill. No rashes. No jaundice. NEUROLOGICAL: Alert, awake, appropriate. Cranial nerves 2-12 intact. No deficits to light touch and temperature in face, upper extremities and lower extremities. No motor deficits in the in face, upper extremities and lower extremities. Normoreflexic in the upper and lower extremities. Normal speech. Toes are down- going bilaterally. Gait is normal without ataxia. PSYCHIATRIC: Cooperative. Good eye contact. Appropriate mood and affect. ED Treatment Course - LABORATORY CBC & Chemistry Diagram: 10/12/16 16:08 10/12/16 17:30 *DC/Admit/Observation/Transfer Diagnosis at time of Disposition: Bruising - Discharge Dispostion Disposition: HOME Condition at time of disposition: Good Admit: No - Referrals Referrals: Goran Hernandez MD [Primary Care Provider] - - Patient Instructions Additional Instructions: You have bruising on your leg. Your work up today was negative for infection, blood clots, or blood abnormalities. You may take ibuprofen as needed for the pain. You may take 800mg three times a day as needed, no more than 2,400mg a day. Follow up with your primary care doctor within the week. Return to the ED if you have worsening pain, shortness of breath, fevers, chills , or any changes in your symptoms.
[2016-10-12] MEDS ORDERED: ACETAMINOPHEN 325 MG TABLET (FP) PO ONE (15:58)
[2016-10-12 16:36] LABS: BASOPHIL 1.2 % (0-2.0); EOSINOPHIL 0.2 % (0-4.5); MCH 29.8 pg (25.7-33.7); MCHC 33.1 g/dl (32.0-36.0); MEAN CELL VOLUME 90.1 fl (80-96); MEAN PLT VOLUME 8.1 fl (7.5-11.1); NEUTROPHILS 62.7 % (42.8-82.8); PLATELET COUNT 387 K/MM3 (134-434); RDW 15.8 % (11.6-15.6); URINE APPEARANCE SLCLOUDY; URINE BILIRUBIN NEGATIVE (NEGATIVE); URINE BLOOD NEGATIVE (NEGATIVE); URINE COLOR LTYELLOW; URINE GLUCOSE (UA) NEGATIVE (NEGATIVE); URINE KETONE NEGATIVE (NEGATIVE); URINE LEUK ESTERASE NEGATIVE (NEGATIVE); URINE NITRITE NEGATIVE (NEGATIVE); URINE PROTEIN NEGATIVE (NEGATIVE); URINE UROBILINOGEN NEGATIVE mg/dL (0.2-1.0); WHITE BLOOD COUNT 8.7 K/mm3 (4.0-10.0)
[2016-10-12 16:47] LABS: INR 1.15 (0.82-1.09); PROTHROMBIN TIME (PATIENT) 12.7 SEC (9.98-11.88)
[2016-10-12 18:31] LABS: ALBUMIN 3.5 g/dl (3.4-5.0); ALK PHOS 136 U/L (45-117); ANION GAP 6 (8-16); CALCIUM 9.1 mg/dL (8.5-10.1); CO2 29 mmol/L (21-32); CREATININE 1.1 mg/dL (0.55-1.02); GLUCOSE,RANDOM 95 mg/dL (74-106); SGOT/AST 21 U/L (15-37); SGPT/ALT 29 U/L (12-78); TOT PROT 7.5 g/dl (6.4-8.2)
[2016-10-12 18:32] LABS: BILIRUBIN,TOTAL < 0.1 mg/dL (0.2-1.0)
--- NOTE | 2016-10-13 09:38 | EKG ---
Test Reason : Blood Pressure : / mmHG Vent. Rate : 081 BPM Atrial Rate : 081 BPM P-R Int : 174 ms QRS Dur : 084 ms QT Int : 386 ms P-R-T Axes : 031 -24 028 degrees QTc Int : 448 ms NORMAL SINUS RHYTHM VOLTAGE CRITERIA FOR LEFT VENTRICULAR HYPERTROPHY ABNORMAL ECG WHEN COMPARED WITH ECG OF 13-AUG-2016 12:23, NO SIGNIFICANT CHANGE WAS FOUND Confirmed by KIKI SYED MD ([id number]) on 10/13/2016 9:37:55 AM Referred By: Confirmed By:KIKI SYED MD
== END 2016-10-12 19:08 | disposition home or self-care (01) ==
LOC: JER 15:02
DX: S80.11XA Contusion of right lower leg, initial encounter (principal); X58.XXXA Exposure to other specified factors, initial encounter; Y93.9 Activity, unspecified; I25.10 Atherosclerotic heart disease of native coronary artery without angina pectoris; I10 Essential (primary) hypertension; E11.9 Type 2 diabetes mellitus without complications; Z79.4 Long term (current) use of insulin; E78.00 Pure hypercholesterolemia, unspecified; E03.9 Hypothyroidism, unspecified; J44.9 Chronic obstructive pulmonary disease, unspecified; Z99.81 Dependence on supplemental oxygen; Z86.69 Personal history of other diseases of the nervous system and sense organs; Z87.891 Personal history of nicotine dependence
CPT/HCPCS: 36415; 71010-TC; 80053; 81003; 85025; 85610; 93005; 93010; 93971-TC; 99283-25

== ENCOUNTER 2016-11-07 15:58 | Inpatient (IN) | payer OTHER ==
[2016-11-07 16:01] VITALS: BMI 48.4
--- NOTE | 2016-11-07 16:28 | PDOC ---
History of Present Illness - General History Source: Patient Exam Limitations: No Limitations - History of Present Illness Initial Comments: 11/07/16 16:34 The patient is a 61 year old female with a significant past medical history of COPD (on 2L of O2 at home), CHF, diabetes, hypertension, hyperlipidemia, and hypothyroidism who presents to the ED with complaints of cough for over a week. The patient reports a dry hacking cough with associated wheezing. She reports chest pain and mid back pain secondary to cough. She states she is a unable to sleep at night secondary to presents symptoms. The patient reports her certified emergency vehicle technician recently tapered her prednisone dosing from 40 mg to 5 mg last month and notes an increase in coughing since then. Patient reports doing multiple inhaler treatments as needed, and notes her last treatment was at 2:30 pm earlier today. Denies fevers or chills. Denies nausea, vomiting, or diarrhea. Denies dysuria or changes in urinary output. Denies any other symptoms. Social hx: The patient is a former smoker. Surgical hx: Cholecystectomy, orthopedic right hip replacement, bilaterally knee arthroscopy, bilateral bunionectomy. PCP: Dr. 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 Hyde <Shaggy Noriega - Last Filed: 11/07/16 16:34> <Lilibeth Irizarry - Last Filed: 11/07/16 20:23> - General Chief Complaint: Shortness of Breath Stated Complaint: SOB Time Seen by Provider: 11/07/16 16:26 Past History <Shaggy Noriega - Last Filed: 11/07/16 16:34> - Past Medical History Anemia: No Asthma: Yes Cancer: No Cardiac Disorders: Yes (CAD) CVA: No COPD: Yes (O2 DEPENDANT) CHF: No Dementia: No Diabetes: Yes (IDDM) GI Disorders: Yes (REFLUX) Disorders: No HTN: Yes Hypercholesterolemia: Yes Liver Disease: No Seizures: Yes Thyroid Disease: Yes (HYPO) - Surgical History Abdominal Surgery: No (TUBAL LIGATION/PARTIAL HYSTERECTOMY) Appendectomy: No Cardiac Surgery: No Cholecystectomy: Yes Lung Surgery: No Neurologic Surgery: No Orthopedic Surgery: Yes (08/2014 R HIP REPLACEMENT, BILAT KNEE ARTHROSCOPY, BILAT BUNIONECTOMY,) - Immunization History Immunization Up to Date: Yes - Suicide/Smoking/Psychosocial Hx Smoking Status: Yes Smoking History: Never smoked Have you smoked in the past 12 months: No Number of Cigarettes Smoked Daily: 0 If you are a former smoker, when did you quit?: 2004 Information on smoking cessation initiated: No Hx Alcohol Use: No Drug/Substance Use Hx: No Substance Use Type: None Hx Substance Use Treatment: No <Lilibeth Irizarry - Last Filed: 11/07/16 20:23> - Past Medical History Allergies/Adverse Reactions: Allergies Allergy/AdvReac Type Severity Reaction Status Date / Time gabapentin [From Neurontin] Allergy PALPITATIONS, Verified 11/07/16 16:01 PASSES OUT Penicillins Allergy TONGUE Verified 11/07/16 16:01 Swelling phenytoin sodium Allergy diarrhea/vo Verified 11/07/16 16:01 [From Dilantin] miting phenytoin sodium extended Allergy Verified 11/07/16 16:01 [From Dilantin] theophylline [Theophylline] Allergy diarrhea,SE Verified 11/07/16 16:01 IZURES Home Medications: Ambulatory Orders Albuterol Sulfate Inhaler - [Ventolin HFA Inhaler -] 1 - 2 inh PO QID PRN Atorvastatin Ca [Lipitor] 10 mg PO DAILY 10/20/15 Biotin [Hard Nails] 5,000 mcg PO DAILY 10/20/15 Budesonide/Formeterol Fumarate [SYMBICORT 160/4.5mcg -] 1 inh PO BID 10/20/15 Carbamazepine Xr [Tegretol XR -] 300 mg PO BID 10/20/15 Folic Acid 2 mg PO DAILY 10/20/15 L.acidop,Daren,Lac,Rha/B.lac,Edmundo [Advanced Probiotic Capsule] 625 mg PO DAILY 06/29 Levothyroxine [Synthroid -] 50 mcg PO DAILY 10/20/15 Linaclotide [Linzess] 145 mcg PO DAILY 10/20/15 Methotrexate [Mexate -] 12.5 mg PO Q7D 10/20/15 Montelukast Na [Singulair -] 10 mg PO DAILY 10/20/15 [place]-3 Fatty Acids [[place]-3] 2 tab PO DAILY 10/20/15 Omeprazole [Prilosec] 40 mg PO DAILY 10/20/15 Sertraline HCl [Zoloft -] 100 mg PO DAILY 10/20/15 Topiramate [Trokendi Xr] 100 mg PO BID 10/20/15 Umeclidinium [place] [Incruse Ellipta] 62.5 mcg IH ASDIR 10/20/15 Albuterol 2.5/Ipratropium 0.5 [Duoneb -] 1 amp NEB QIDR #10 amp 03/09/16 Insulin Sliding Scale [Novolog Vial Sliding Scale -] See Protocol SQ AC #1 units 05/23/16 Exenatide [Byetta] 10 mcg SQ BID 08/13/16 Glipizide 10 mg PO BID 08/13/16 Hydroxychloroquine Sulfate [Plaquenil] 200 mg PO BID 08/13/16 Insulin Glargine,Hum.rec.anlog [Lantus (10mL VIAL) -] 23 units SQ DAILY Losartan Potassium [Cozaar -] 50 mg PO DAILY 08/13/16 Pramipexole Dihydrochloride [Mirapex -] 0.5 mg PO ASDIR 08/13/16 Furosemide [Lasix] 40 mg PO DAILY 10/12/16 Prednisone [Deltasone -] 5 mg PO DAILY 10/12/16 Review of Systems - Review of Systems Able to Perform ROS?: Yes Comments:: 11/07/16 16:34 CONSTITUTIONAL: No reported: Fever, Chills, Diaphoresis, Generalized Weakness, Malaise, Loss of Appetite HEENT: No reported: Rhinorrhea, Nasal Congestion, Throat Pain, Throat Swelling, Difficulty Swallowing, Mouth Swelling, Ear Pain, Eye Pain, Visual Changes CARDIOVASCULAR: + chest pain No reported: Syncope, Palpitations, Irregular Heart Rate, Lightheadedness, Peripheral Edema RESPIRATORY: + cough, SOB No reported: , SOB with Exertion, Orthopnea, Wheezing, Stridor, Hemoptysis GASTROINTESTINAL: No reported: Abdominal pain, Abdominal Distension, Nausea, Vomiting, Diarrhea, Constipation, Melena, Hematochezia GENITOURINARY: No reported: Dysuria, Frequency, Urgency, Hesitancy, Flank Pain, Genital Pain MUSCULOSKELETAL: + back pain No reported: Myalgia, Arthralgia, Joint Swelling, Neck Pain SKIN: No reported: Rash, Itching, Pallor HEMEATOLOGIC/IMMUNOLOGIC: No reported: Easy Bleeding, Easy Bruising, Lymphadenopathy, Frequent infections ENDOCRINE: No reported: Unexplained Weight Gain, Unexplained Weight Loss, Heat Intolerance , Cold Intolerance NEUROLOGIC: No reported: Headache, Focal Weakness, Paresthesias, Vertigo, Lightheadedness, Unsteady Gait, Seizure, Mental Status Changes, Incontinence PSYCHIATRIC: No reported: Anxiety, Depression All Other Systems: Reviewed and Negative <Shaggy Noriega - Last Filed: 11/07/16 16:34> *Physical Exam - Vital Signs Last Vital Signs Temp Pulse Resp BP Pulse Ox 98.8 F 85 19 133/67 96 11/07/16 15:59 11/07/16 15:59 11/07/16 15:59 11/07/16 15:59 11/07/16 15:59 - Physical Exam Comments: 11/07/16 16:34 GENERAL: Well developed, well nourished. Awake and alert. No acute distress. HEENT: Normocephalic, atraumatic. PERRLA, EOMI. No conjunctival pallor. Sclera are non- icteric. Moist mucous membranes. Oropharynx is clear. NECK: Supple. Full ROM. No JVD. Carotid pulses 2+ and symmetric, without bruits. No thyromegaly. No lymphadenopathy. CARDIOVASCULAR: Regular rate and rhythm. No murmurs, rubs, or gallops. Distal pulses are 2+ and symmetric. PULMONARY: + upper airway wheezing secondary to coughing. 100% on 2 liters of O2. Lungs clear to auscultation bilaterally. No rales or rhonchi. ABDOMINAL: Soft. Non-tender. Non-distended. No rebound or guarding. No organomegaly. Normoactive bowel sounds. MUSCULOSKELETAL Normal range of motion at all joints. No bony deformities or tenderness. No CVA tenderness. EXTREMITIES: No cyanosis. No clubbing. No edema. No calf tenderness. SKIN: Warm and dry. Normal capillary refill. No rashes. No jaundice. NEUROLOGICAL: Alert, awake, appropriate. Cranial nerves 2-12 intact. No deficits to light touch and temperature in face, upper extremities and lower extremities. No motor deficits in the in face, upper extremities and lower extremities. Normoreflexic in the upper and lower extremities. Normal speech. Toes are down- going bilaterally. Gait is normal without ataxia. PSYCHIATRIC: Cooperative. Good eye contact. Appropriate mood and affect. <Shaggy Noriega - Last Filed: 11/07/16 16:34> - Vital Signs Last Vital Signs Temp Pulse Resp BP Pulse Ox 98.8 F 85 19 133/67 96 11/07/16 15:59 11/07/16 15:59 11/07/16 15:59 11/07/16 15:59 11/07/16 15:59 <Lilibeth Irizarry - Last Filed: 11/07/16 20:23> Heart Score/ECG Review - History History: Slightly suspicious - Electrocardiogram EKG: Normal - Age Age: 45-65 - Risk Factors Risk Factors Heart Score: Yes Hx Hypercholesterolemia, Yes Hx Hypertension, Yes Hx Diabetes, Yes Hx Obesity Based on the list above the patient has:: >/=3 risk factors or Hx atherosclerotic disease - Troponin Troponin: </= normal limit - Score Heart Score - Total: 3 <Lilibeth Irizarry - Last Filed: 11/07/16 20:23> ED Treatment Course - LABORATORY CBC & Chemistry Diagram: 11/07/16 17:08 11/07/16 17:08 <Lilibeth Irizarry - Last Filed: 11/07/16 20:23> Medical Decision Making - Medical Decision Making 11/07/16 20:07 61-year-old female presents with complaint of substernal chest pain and several weeks of dry cough. sHe states that she's been on prednisone taper and is currently taking prednisone 5 mg daily. DrLashon is Dr. Dr. Hernandez and Dr. Hyde She has lupus, severe COPD and is always oxygen dependent 2 L, type 2 diabetes, but does use long-acting insulins, sleep apnea, which she uses C Pap, obesity She said that she ran out of her albuterol nebulization liquid, but still has her inhaler Patient was given respiratory treatment, steroids, aspirin No EKG changes were noted. Her first troponin was negative Case discussed with hospitalist and she's been admitted to OBS telemetry 11/07/16 20:23 <Lilibeth Irizarry - Last Filed: 11/07/16 20:23> *DC/Admit/Observation/Transfer - Attestations Scribe Attestion: 11/07/16 16:35 Documentation prepared by Shaggy Noriega, acting as medical director occupational health for Lilibeth Irizarry MD <Shaggy Noriega - Last Filed: 11/07/16 16:34> - Discharge Dispostion Admit: Yes <Lilibeth Irizarry - Last Filed: 11/07/16 20:23> Diagnosis at time of Disposition: Morbid obesity Type 2 diabetes mellitus Qualifiers: Diabetes mellitus complication status: with kidney complications Diabetes mellitus complication detail: with chronic kidney disease Diabetes mellitus rodent exterminator insulin use: without rodent exterminator use Chronic kidney disease stage: unspecified stage Qualified Code(s): E11.22 - Type 2 diabetes mellitus with diabetic chronic kidney disease COPD (chronic obstructive pulmonary disease) Qualifiers: COPD type: unspecified COPD Qualified Code(s): J44.9 - Chronic obstructive pulmonary disease, unspecified Chest pain Qualifiers: Chest pain type: unspecified Qualified Code(s): R07.9 - Chest pain, unspecified
[2016-11-07] MEDS ORDERED: predniSONE 20 MG TABLET (UD) PO ONE (16:30)
[2016-11-07] MEDS ORDERED: MAGNESIUM SULF 50% (8.12 MEQ/2 ML-1 GM VIAL) IVPB ONE (16:30)
[2016-11-07] MEDS ORDERED: ALBUTEROL SO4 0.083% IH SOL 2.5 MG/3 ML VIAL.NEB. NEB ONE ×2 (16:30→16:44)
[2016-11-07] MEDS ORDERED: MAGNESIUM SULF 50% (8.12 MEQ/2 ML-1 GM VIAL) ONE ×2 (16:45→16:55)
[2016-11-07] MEDS ORDERED: predniSONE 20 MG TABLET (UD) ONE (16:45)
[2016-11-07 17:15] LABS: BASOPHIL 1.9 % (0-2.0); EOSINOPHIL 0.4 % (0-4.5); MCH 29.4 pg (25.7-33.7); MEAN CELL VOLUME 88.9 fl (80-96); MEAN PLT VOLUME 8.1 fl (7.5-11.1); NEUTROPHILS 68.6 % (42.8-82.8); PLATELET COUNT 353 K/MM3 (134-434); RDW 15.7 % (11.6-15.6); WHITE BLOOD COUNT 7.7 K/mm3 (4.0-10.0)
[2016-11-07 17:27] LABS: INR 1.16 (0.82-1.09); PROTHROMBIN TIME (PATIENT) 12.8 SEC (9.98-11.88)
[2016-11-07 17:51] LABS: ALBUMIN 3.5 g/dl (3.4-5.0); ALK PHOS 141 U/L (45-117); ANION GAP 6 (8-16); BILIRUBIN,TOTAL 0.2 mg/dL (0.2-1.0); CALCIUM 8.8 mg/dL (8.5-10.1); CO2 28 mmol/L (21-32); CPK 163 IU/L (26-192); CREATININE 1.1 mg/dL (0.55-1.02); GLUCOSE,RANDOM 98 mg/dL (74-106); SGOT/AST 21 U/L (15-37); SGPT/ALT 24 U/L (12-78); TOT PROT 7.6 g/dl (6.4-8.2); TROPONIN I < 0.02 ng/ml (0.00-0.05)
[2016-11-07] MEDS ORDERED: ASPIRIN 81 MG CHEWABLE TABLETS PO ONE (19:11)
[2016-11-07] MEDS ORDERED: ASPIRIN 81 MG CHEWABLE TABLETS ONE (19:17)
--- NOTE | 2016-11-07 19:31 | PN ---
Teaching Attending Note Name of Resident: Georgina Goode ATTENDING PHYSICIAN STATEMENT I saw and evaluated the patient. I reviewed the resident's note and discussed the case with the resident. I agree with the resident's findings and plan as documented. SUBJECTIVE: 61 yo F with pmhx of COPD (2 L 02 ), CHF, DM, HTN, HLD, and hypothyriodism who presents with cough X1 week. Noticed cough was dry. States she also had wheezing associated. Notes his cough was a week in duration. Also notes associated chest pain. States she was on Prednisone from her consultant electronics and her dose got tapered, but recently increased from 5mg to 10 mg. No fevers or chills. Chest pain is associated with cough and has associated diaphoresis. No chest pressure. No current shortness of breath. OBJECTIVE: Physical: VS: Vital Signs Period Temp Pulse Resp BP Sys/O[place]nell Pulse Ox Last 24 Hr 98.8 F 75-85 19-20 109-133/58-67 96-100 GEN: NAD, Resting in bed, able to speak full sentences HEENT: NCAT, PERRL, Throat without erythema or exudates CARD: RRR S1, S2 RESP: Mild expiratory wheezing bilaterally ABD: BSx4, NTD to palpation EXT: - C/C/E CBCD WBC 7.7 K/mm3 (4.0-10.0) 11/07/16 17:08 RBC 3.93 M/mm3 (3.60-5.2) 11/07/16 17:08 Hgb 11.5 GM/dL (10.7-15.3) 11/07/16 17:08 Hct 34.9 % (32.4-45.2) 11/07/16 17:08 MCV 88.9 fl (80-96) 11/07/16 17:08 MCHC 33.0 g/dl (32.0-36.0) 11/07/16 17:08 RDW 15.7 % (11.6-15.6) H 11/07/16 17:08 Plt Count 353 K/MM3 (134-434) 11/07/16 17:08 MPV 8.1 fl (7.5-11.1) 11/07/16 17:08 CMP Sodium 139 mmol/L (136-145) 11/07/16 17:08 Potassium 4.2 mmol/L (3.5-5.1) 11/07/16 17:08 Chloride 105 mmol/L (98-107) 11/07/16 17:08 Carbon Dioxide 28 mmol/L (21-32) 11/07/16 17:08 Anion Gap 6 (8-16) L 11/07/16 17:08 BUN 20 mg/dL (7-18) H 11/07/16 17:08 Creatinine 1.1 mg/dL (0.55-1.02) H 11/07/16 17:08 Creat Clearance w eGFR 50.67 (>60) 11/07/16 17:08 Random Glucose 98 mg/dL (74-106) 11/07/16 17:08 Calcium 8.8 mg/dL (8.5-10.1) 11/07/16 17:08 Total Bilirubin 0.2 mg/dL (0.2-1.0) D 11/07/16 17:08 AST 21 U/L (15-37) 11/07/16 17:08 ALT 24 U/L (12-78) 11/07/16 17:08 Alkaline Phosphatase 141 U/L (45-117) H 11/07/16 17:08 Total Protein 7.6 g/dl (6.4-8.2) 11/07/16 17:08 Albumin 3.5 g/dl (3.4-5.0) 11/07/16 17:08 CARDIAC ENZYMES Creatine Kinase 163 IU/L (26-192) 11/07/16 17:08 Troponin I < 0.02 ng/ml (0.00-0.05) 11/07/16 17:08 Home Medications Medication Instructions Recorded Albuterol Sulfate Inhaler - 1 - 2 inh PO QID PRN 01/04/13 [Ventolin HFA Inhaler -] Atorvastatin Ca [Lipitor] 10 mg PO DAILY 10/20/15 Biotin [Hard Nails] 5,000 mcg PO DAILY 10/20/15 Budesonide/Formeterol Fumarate 1 inh PO BID 10/20/15 [SYMBICORT 160/4.5mcg -] Carbamazepine Xr [Tegretol XR -] 300 mg PO BID 10/20/15 Folic Acid 2 mg PO DAILY 10/20/15 L.acidop,Daren,Lac,Rha/B.lac,Edmundo 625 mg PO DAILY 10/20/15 [Advanced Probiotic Capsule] Levothyroxine [Synthroid -] 50 mcg PO DAILY 10/20/15 Linaclotide [Linzess] 145 mcg PO DAILY 10/20/15 Methotrexate [Mexate -] 12.5 mg PO Q7D 10/20/15 Montelukast Na [Singulair -] 10 mg PO DAILY 10/20/15 [place]-3 Fatty Acids [[place]-3] 2 tab PO DAILY 10/20/15 Omeprazole [Prilosec] 40 mg PO DAILY 10/20/15 Sertraline HCl [Zoloft -] 100 mg PO DAILY 10/20/15 Topiramate [Trokendi Xr] 100 mg PO BID 10/20/15 Umeclidinium [place] [Incruse 62.5 mcg IH ASDIR 10/20/15 Ellipta] Albuterol 2.5/Ipratropium 0.5 1 amp NEB QIDR #10 amp 03/09/16 [Duoneb -] Insulin Sliding Scale [Novolog See Protocol SQ AC #1 units 05/23/16 Vial Sliding Scale -] Exenatide [Byetta] 10 mcg SQ BID 08/13/16 Glipizide 10 mg PO BID 08/13/16 Hydroxychloroquine Sulfate 200 mg PO BID 08/13/16 [Plaquenil] Insulin Glargine,Hum.rec.anlog 23 units SQ DAILY 08/13/16 [Lantus (10mL VIAL) -] Losartan Potassium [Cozaar -] 50 mg PO DAILY 08/13/16 Pramipexole Dihydrochloride 0.5 mg PO ASDIR 08/13/16 [Mirapex -] Furosemide [Lasix] 40 mg PO DAILY 10/12/16 Prednisone [Deltasone -] 5 mg PO DAILY 10/12/16 CXR- No acute process, pending final read. EKG: NSR, no acute St-T changes ASSESSMENT AND PLAN: 61 yo F with pmhx of COPD, CHF, DM, HTN, Seizure DO SLE HLD, and hypothyriodism who presents with wheezing and dry cough with associated chest pain. 1.) PULM: Acute Exacerbation of Asthma/COPD/hx. of sleep apnea - NEBS Atc/prn - Can continue Prednisone 60mg in am - C/W home meds for COPD/Asthma - Pulm Consult - 02 >90 - CPAP at night 2.) CARDS- Chest Pain- Atypical/ CAD hx of - As per pt. had Non-Obstructive CAD - Less Likely ACS, Most likely from cough - HEART 4 - Trend Trop/EKG - ASA - Morphine/Nitro prn pain - 02 - Cardio consult in light of recent cath at [facility] 4.) DM - FS - RAISS - C/W Lantus - Hold Po meds 5.) SLE - On Methotrexate Q Weds and Plaquenil 6.) HTN - C/W home meds 7.) Stage 3 CKD - Monitor Cr - Avoid Nephrotoxins 8.) Hypothyriodism - TSH - C/W 9.) Seizure DO - C/W Tegretol/Topamax 10.) DvtPpx - Heparin [address] in Med-Sx
--- NOTE | 2016-11-07 19:35 | HP ---
CHIEF COMPLAINT: " SOB and dry cough with substernal chest pain" PCP: Dr. Hernandez Visual Display Associate: Dr. Stone Bulk Plant Operator: Dr. Laboy HISTORY OF PRESENT ILLNESS: Patient is a 61 year old woman with significant Past Medical History of COPD on home oxygen, CAD s/p cath no stent, HTN, HLD, DM, seizure, SLE, hypothyroid , DANY on CPAP presented to the ED with the chief complaint of worsening shortness of breath and dry cough and substernal chest pain. As per the patient , due to her persistent dry cough, she went to see Dr. Stone, was on tapering dose of prednisone (40mg-->30mg-->20mg-->10mg-->was on 5mg) but increased to 10mg due to her worsening symptoms. She noticed her symptoms worsening after the tapering dose of steroid. Patient mentions that she started having substernal chest pain today, attributing to persistent dry cough. Pain was 8/10 in intensity, non radiating, aggravated on deep inspiration and relieved on lying down. Denies palpitation, abdominal pain, nausea or vomiting. Bowel/Bladder habit normal. Sleep/Appetite decreased since illness. ER course was notable for: (1) Afebrile, hemodynamically stable, Troponin x 1 negative (2) EKG: (3) Aspirin 162mg; IV Magnesium 2gm and Prednisone 60mg Recent Travel: PAST MEDICAL HISTORY: COPD on home oxygen, CAD s/p cath no stent, HTN, HLD, DM , seizure, SLE, hypothyroid, DANY on CPAP PAST SURGICAL HISTORY: Cath twice (last one in [facility]) Social History: Smoking: Former smoker quit 2004, smoked for 20-25 yrs Alcohol: Denies Drugs: Denies Family History: Unknown Allergies gabapentin [From Neurontin] Allergy (Verified 11/07/16 16:01) PALPITATIONS, PASSES OUT Penicillins Allergy (Verified 11/07/16 16:01) TONGUE Swelling phenytoin sodium [From Dilantin] Allergy (Verified 11/07/16 16:01) diarrhea/vomiting phenytoin sodium extended [From Dilantin] Allergy (Verified 11/07/16 16:01) theophylline [Theophylline] Allergy (Verified 11/07/16 16:01) diarrhea,SEIZURES HOME MEDICATIONS: Home Medications Medication Instructions Recorded Albuterol Sulfate Inhaler - 1 - 2 inh PO QID PRN 01/04/13 [Ventolin HFA Inhaler -] Atorvastatin Ca [Lipitor] 10 mg PO DAILY 10/20/15 Biotin [Hard Nails] 5,000 mcg PO DAILY 10/20/15 Budesonide/Formeterol Fumarate 1 inh PO BID 10/20/15 [SYMBICORT 160/4.5mcg -] Carbamazepine Xr [Tegretol XR -] 300 mg PO BID 10/20/15 Folic Acid 2 mg PO DAILY 10/20/15 L.acidop,Daren,Lac,Rha/B.lac,Edmundo 625 mg PO DAILY 10/20/15 [Advanced Probiotic Capsule] Levothyroxine [Synthroid -] 50 mcg PO DAILY 10/20/15 Linaclotide [Linzess] 145 mcg PO DAILY 10/20/15 Methotrexate [Mexate -] 12.5 mg PO Q7D 10/20/15 Montelukast Na [Singulair -] 10 mg PO DAILY 10/20/15 [place]-3 Fatty Acids [[place]-3] 2 tab PO DAILY 10/20/15 Omeprazole [Prilosec] 40 mg PO DAILY 10/20/15 Sertraline HCl [Zoloft -] 100 mg PO DAILY 10/20/15 Topiramate [Trokendi Xr] 100 mg PO BID 10/20/15 Umeclidinium [place] [Incruse 62.5 mcg IH ASDIR 10/20/15 Ellipta] Albuterol 2.5/Ipratropium 0.5 1 amp NEB QIDR #10 amp 03/09/16 [Duoneb -] Insulin Sliding Scale [Novolog See Protocol SQ AC #1 units 05/23/16 Vial Sliding Scale -] Exenatide [Byetta] 10 mcg SQ BID 08/13/16 Glipizide 10 mg PO BID 08/13/16 Hydroxychloroquine Sulfate 200 mg PO BID 08/13/16 [Plaquenil] Insulin Glargine,Hum.rec.anlog 23 units SQ DAILY 08/13/16 [Lantus (10mL VIAL) -] Losartan Potassium [Cozaar -] 50 mg PO DAILY 08/13/16 Pramipexole Dihydrochloride 0.5 mg PO ASDIR 08/13/16 [Mirapex -] Furosemide [Lasix] 40 mg PO DAILY 10/12/16 Prednisone [Deltasone -] 5 mg PO DAILY 10/12/16 REVIEW OF SYSTEMS CONSTITUTIONAL: Absent: fever, chills, diaphoresis, generalized weakness, malaise, loss of appetite, weight change HEENT: Absent: rhinorrhea, nasal congestion, throat pain, throat swelling, difficulty swallowing, mouth swelling, ear pain, eye pain, visual changes CARDIOVASCULAR: Present: chest pain Absent:syncope, palpitations, irregular heart rate, lightheadedness, peripheral edema RESPIRATORY: Present: shortness of breath, wheezing, Absent: cough, , dyspnea with exertion, orthopnea, stridor, hemoptysis GASTROINTESTINAL: Absent: abdominal pain, abdominal distension, nausea, vomiting, diarrhea, constipation, melena, hematochezia GENITOURINARY: Absent: dysuria, frequency, urgency, hesitancy, hematuria, flank pain, genital pain MUSCULOSKELETAL: Absent: myalgia, arthralgia, joint swelling, back pain, neck pain SKIN: Absent: rash, itching, pallor HEMATOLOGIC/IMMUNOLOGIC: Absent: easy bleeding, easy bruising, lymphadenopathy, frequent infections ENDOCRINE: Absent: unexplained weight gain, unexplained weight loss, heat intolerance, cold intolerance NEUROLOGIC: Absent: headache, focal weakness or paresthesias, dizziness, unsteady gait, seizure, mental status changes, bladder or bowel incontinence PSYCHIATRIC: Absent: anxiety, depression, suicidal or homicidal ideation, hallucinations. PHYSICAL EXAMINATION Vital Signs - 24 hr 11/07/16 11/07/16 11/07/16 15:59 16:00 18:36 Temperature 98.8 F Pulse Rate 85 Pulse Rate [ 75 Apical] Respiratory 19 20 Rate Blood Pressure 133/67 Blood Pressure 109/58 [Left Arm] O2 Sat by Pulse 96 100 Oximetry (%) GENERAL: Patient is comfortably sitting in bed, Awake, alert, and fully oriented , in no acute distress,, nasal canula in place. HEAD: Normal with no signs of trauma. EYES: EOM intact, no pallor or icterus. EARS, NOSE, THROAT: Ears normal. Moist mucous membranes. NECK: Supple. LUNGS: B/L Breath sounds equal, occasional wheeze on the Right> Left, and no crackles. HEART: Regular rate and rhythm, normal S1 and S2 with soft systolic murmur. ABDOMEN: Soft, nontender, not distended, normoactive bowel sounds, no guarding, no rebound, no masses. No hepatomegaly or splenomegaly. MUSCULOSKELETAL: Normal range of motion at all joints. No bony deformities or tenderness. No CVA tenderness. UPPER EXTREMITIES: 2+ pulses, warm, well-perfused. No cyanosis. No clubbing. No peripheral edema. LOWER EXTREMITIES: 2+ pulses, warm, well-perfused. No calf tenderness. No peripheral edema. NEUROLOGICAL: No facial droop, Normal speech. Gait not observed. PSYCHIATRIC: Cooperative. Good eye contact. Appropriate mood and affect. SKIN: Warm, dry, normal turgor, no rashes or lesions noted, normal capillary refill. Laboratory Results - last 24 hr 11/07/16 11/07/16 11/07/16 17:08 17:08 17:08 WBC 7.7 RBC 3.93 Hgb 11.5 Hct 34.9 MCV 88.9 MCH 29.4 MCHC 33.0 RDW 15.7 H Plt Count 353 MPV 8.1 Neutrophils % 68.6 Lymphocytes % 25.2 Monocytes % 3.9 Eosinophils % 0.4 D Basophils % 1.9 PT with INR INR Sodium 139 Potassium 4.2 Chloride 105 Carbon Dioxide 28 Anion Gap 6 L BUN 20 H Creatinine 1.1 H Creat Clearance w eGFR 50.67 Random Glucose 98 Calcium 8.8 Total Bilirubin 0.2 D AST 21 ALT 24 Alkaline Phosphatase 141 H Creatine Kinase 163 Creatine Kinase Index 1.1 CK-MB (CK-2) 1.89 Troponin I < 0.02 B-Natriuretic Peptide Total Protein 7.6 Albumin 3.5 11/07/16 11/07/16 17:08 17:08 WBC RBC Hgb Hct MCV MCH MCHC RDW Plt Count MPV Neutrophils % Lymphocytes % Monocytes % Eosinophils % Basophils % PT with INR 12.80 H INR 1.16 H Sodium Potassium Chloride Carbon Dioxide Anion Gap BUN Creatinine Creat Clearance w eGFR Random Glucose Calcium Total Bilirubin AST ALT Alkaline Phosphatase Creatine Kinase Creatine Kinase Index CK-MB (CK-2) Troponin I B-Natriuretic Peptide 197.57 H Total Protein Albumin ASSESSMENT/PLAN: Patient is a 61 year old woman with significant Past Medical History of COPD on home oxygen, CAD s/p cath no stent, HTN, HLD, DM, seizure, SLE, hypothyroid , DANY on CPAP presented to the ED with the chief complaint of SOB, cough, chest pain. # Atypical chest pain likely due to bronchitis Since patient has h/o DM, HTN, HLD and had recent cath without stent (08/16/16 ) in [facility] , would like to r/o ACS, however low suspicion for ACS. Patient has had persistent cough, is on tapering dose of steroid, hence chest pain could be due to bronchitis Presented with midsternal chest pain On arrival, afebrile, hemodynamically stable, EKG no change, Troponin x 1 negative Received Aspirin 162 mg in the ED Admitted in Tele/Obs Will do next troponin----> @ 11pm Continuous cardiac monitoring # COPD/Asthma exacerbation (on home oxygen) On steroid tapering dose as outpatient, on 10mg of Prednisone. Will continue PO Prednisone 60mg and if her symptoms doesn't improve, will start her on IV Solu-medrol Continue oxygen PRN No antibiotics give at this time, CXR no consolidation, no crackles. Albuterol PRN, Symbicort BID Singulair 10mg PO Lizzy Hyde consult requested # CAD s/p cath no stent 07/09/16 stress test: Small and mild reversible anterior perfusion defect; EF 79 % Continue Aspirin 81mg PO Daily # Hypertension- Stable Continue Losartan 50 mg po daily Lasix 40 mg PO daily # Hyperlipidemia Continue Lipitor 10 mg PO HS # Diabetes Mellitus A1c pending Levemir 23 U sq ISS Finger stick glucose monitoring Watch for hypoglycemic episodes # SLE Continue Hydroxychloroquine 200 mg po BID Hold Methotrexate(takes 12.5 mg of Methotrexate every Tuesday) Continue folic acid 2 mg PO daily # Seizure: no seizure activity at this time Continue Carbazemipine 300mg PO BID # Hypothyroidism TSH ordered for am Continue Synthroid 50 mcg po daily # DANY on CPAP Continue CPAP (pts own) # Migraines Topiramate 100 mg PO BID # Depression Continue Zoloft 100 mg PO Daily # GERD On Protonix 40mg PO Daily # FEN Not on IV fluids Electrolytes wnl, to be repeated tomorrow Diabetic diet # Prophylaxis For DVT: On Heparin 5000 U sq For GI: On Protonix 40mg PO Daily. # Medications: Confirmed with the patient. # Code Status: Full Code # Dispo: Admitted in Tele/Obs. Duration of stay unknown. Illness, Investigation and Plan of care explained to the patient. She verbalized understanding. Case seen and discussed with Dr. Rodriguez. Visit type - Emergency Visit Emergency Visit: Yes ED Registration Date: 11/09/16 Care time: The patient presented to the Emergency Department on the above date and was hospitalized for further evaluation of their emergent condition. - New Patient This patient is new to me today: Yes Date on this admission: 11/09/16 - Critical Care Critical Care patient: No
--- NOTE | 2016-11-07 19:39 | HP ---
CHIEF COMPLAINT: cough PCP: Dr. Hernandez Clinic Assistant: Dr. Laboy Transportation Director: Dr. Hyde HISTORY OF PRESENT ILLNESS: 61 y.o. F with pmh of COPD, HTN, HLD, seizure, SLE, DM, hypothyroid, DANY on CPAP presents with 1 month hx of dry cough. Patient states cough has been worsening over last 1 week. Patient also endorses substernal, 9/10 chest pain radiating to the back. This pain worsens when coughing and laying flat. Also, patient states she has been having wheezing. Patient states her prednisone was tapered from 40 mg to 5 mg over the past month. Patient has been using increased albuterol inhalers her last one being at 2:30 today. Patient denies fever, chills, sob, n/v/d/c, urinary symptoms ER course was notable for: (1) vs- wnl, bnp- 197, trop negative x1 (2) Respiratory tx, steroids, asa (3) EKG no changes Recent Travel: denies PAST MEDICAL HISTORY: as per hpi PAST SURGICAL HISTORY: L total knee replacement, cholecystectomy Social History: Smoking: former smoker quit 2004, smoked for 20-25 yrs Alcohol: denies Drugs: denies Family History: unknown Allergies gabapentin [From Neurontin] Allergy (Verified 11/07/16 16:01) PALPITATIONS, PASSES OUT Penicillins Allergy (Verified 11/07/16 16:01) TONGUE Swelling phenytoin sodium [From Dilantin] Allergy (Verified 11/07/16 16:01) diarrhea/vomiting phenytoin sodium extended [From Dilantin] Allergy (Verified 11/07/16 16:01) theophylline [Theophylline] Allergy (Verified 11/07/16 16:01) diarrhea,SEIZURES HOME MEDICATIONS: Home Medications Medication Instructions Recorded Albuterol Sulfate Inhaler - 1 - 2 inh PO QID PRN 01/04/13 [Ventolin HFA Inhaler -] Atorvastatin Ca [Lipitor] 10 mg PO DAILY 10/20/15 Biotin [Hard Nails] 5,000 mcg PO DAILY 10/20/15 Budesonide/Formeterol Fumarate 1 inh PO BID 10/20/15 [SYMBICORT 160/4.5mcg -] Carbamazepine Xr [Tegretol XR -] 300 mg PO BID 10/20/15 Folic Acid 2 mg PO DAILY 10/20/15 L.acidop,Daren,Lac,Rha/B.lac,Edmundo 625 mg PO DAILY 10/20/15 [Advanced Probiotic Capsule] Levothyroxine [Synthroid -] 50 mcg PO DAILY 10/20/15 Linaclotide [Linzess] 145 mcg PO DAILY 10/20/15 Methotrexate [Mexate -] 12.5 mg PO Q7D 10/20/15 Montelukast Na [Singulair -] 10 mg PO DAILY 10/20/15 [place]-3 Fatty Acids [[place]-3] 2 tab PO DAILY 10/20/15 Omeprazole [Prilosec] 40 mg PO DAILY 10/20/15 Sertraline HCl [Zoloft -] 100 mg PO DAILY 10/20/15 Topiramate [Trokendi Xr] 100 mg PO BID 10/20/15 Umeclidinium [place] [Incruse 62.5 mcg IH ASDIR 10/20/15 Ellipta] Albuterol 2.5/Ipratropium 0.5 1 amp NEB QIDR #10 amp 03/09/16 [Duoneb -] Insulin Sliding Scale [Novolog See Protocol SQ AC #1 units 05/23/16 Vial Sliding Scale -] Exenatide [Byetta] 10 mcg SQ BID 08/13/16 Glipizide 10 mg PO BID 08/13/16 Hydroxychloroquine Sulfate 200 mg PO BID 08/13/16 [Plaquenil] Insulin Glargine,Hum.rec.anlog 23 units SQ DAILY 08/13/16 [Lantus (10mL VIAL) -] Losartan Potassium [Cozaar -] 50 mg PO DAILY 08/13/16 Pramipexole Dihydrochloride 0.5 mg PO ASDIR 08/13/16 [Mirapex -] Furosemide [Lasix] 40 mg PO DAILY 10/12/16 Prednisone [Deltasone -] 5 mg PO DAILY 10/12/16 REVIEW OF SYSTEMS CONSTITUTIONAL: Absent: fever, chills, diaphoresis, generalized weakness, malaise, loss of appetite, weight change HEENT: Absent: rhinorrhea, nasal congestion, throat pain, throat swelling, difficulty swallowing, mouth swelling, ear pain, eye pain, visual changes CARDIOVASCULAR: Absent: chest pain, syncope, palpitations, irregular heart rate, lightheadedness , peripheral edema RESPIRATORY: Absent: cough, shortness of breath, dyspnea with exertion, orthopnea, wheezing, stridor, hemoptysis GASTROINTESTINAL: Absent: abdominal pain, abdominal distension, nausea, vomiting, diarrhea, constipation, melena, hematochezia GENITOURINARY: Absent: dysuria, frequency, urgency, hesitancy, hematuria, flank pain, genital pain MUSCULOSKELETAL: Absent: myalgia, arthralgia, joint swelling, back pain, neck pain SKIN: Absent: rash, itching, pallor HEMATOLOGIC/IMMUNOLOGIC: Absent: easy bleeding, easy bruising, lymphadenopathy, frequent infections ENDOCRINE: Absent: unexplained weight gain, unexplained weight loss, heat intolerance, cold intolerance NEUROLOGIC: Absent: headache, focal weakness or paresthesias, dizziness, unsteady gait, seizure, mental status changes, bladder or bowel incontinence PSYCHIATRIC: Absent: anxiety, depression, suicidal or homicidal ideation, hallucinations. PHYSICAL EXAMINATION Vital Signs - 24 hr 11/07/16 11/07/16 11/07/16 15:59 16:00 18:36 Temperature 98.8 F Pulse Rate 85 Pulse Rate [ 75 Apical] Respiratory 19 20 Rate Blood Pressure 133/67 Blood Pressure 109/58 [Left Arm] O2 Sat by Pulse 96 100 Oximetry (%) GENERAL: Awake, alert, and fully oriented, in no acute distress. 2L o2 nc in nose HEAD: Normal with no signs of trauma. EYES: Extraocular movements intact, sclera anicteric, conjunctiva clear. No lid lag. EARS, NOSE, THROAT: Oropharynx clear without exudates. Moist mucous membranes. NECK: Normal range of motion, supple without lymphadenopathy, JVD, or masses. LUNGS: Breath sounds equal, +expiratory wheezing. No crackles HEART: Regular rate and rhythm, normal S1 and S2 without murmur, rub or gallop. ABDOMEN: Soft, nontender, not distended, normoactive bowel sounds, no guarding, no rebound, no masses. No hepatomegaly or splenomegaly. MUSCULOSKELETAL: Normal range of motion at all joints. No bony deformities or tenderness. No CVA tenderness. UPPER EXTREMITIES: 2+ pulses, warm, well-perfused. No cyanosis. No clubbing. No peripheral edema. LOWER EXTREMITIES: 2+ pulses, warm, well-perfused. No calf tenderness. No peripheral edema. NEUROLOGICAL: Cranial nerves II-XII intact. Normal speech. Normal gait. PSYCHIATRIC: Cooperative. Good eye contact. Appropriate mood and affect. SKIN: Warm, dry, normal turgor, no rashes or lesions noted, normal capillary refill. Laboratory Results - last 24 hr 11/07/16 11/07/16 11/07/16 17:08 17:08 17:08 WBC 7.7 RBC 3.93 Hgb 11.5 Hct 34.9 MCV 88.9 MCH 29.4 MCHC 33.0 RDW 15.7 H Plt Count 353 MPV 8.1 Neutrophils % 68.6 Lymphocytes % 25.2 Monocytes % 3.9 Eosinophils % 0.4 D Basophils % 1.9 PT with INR INR Sodium 139 Potassium 4.2 Chloride 105 Carbon Dioxide 28 Anion Gap 6 L BUN 20 H Creatinine 1.1 H Creat Clearance w eGFR 50.67 Random Glucose 98 Calcium 8.8 Total Bilirubin 0.2 D AST 21 ALT 24 Alkaline Phosphatase 141 H Creatine Kinase 163 Creatine Kinase Index 1.1 CK-MB (CK-2) 1.89 Troponin I < 0.02 B-Natriuretic Peptide Total Protein 7.6 Albumin 3.5 11/07/16 11/07/16 17:08 17:08 WBC RBC Hgb Hct MCV MCH MCHC RDW Plt Count MPV Neutrophils % Lymphocytes % Monocytes % Eosinophils % Basophils % PT with INR 12.80 H INR 1.16 H Sodium Potassium Chloride Carbon Dioxide Anion Gap BUN Creatinine Creat Clearance w eGFR Random Glucose Calcium Total Bilirubin AST ALT Alkaline Phosphatase Creatine Kinase Creatine Kinase Index CK-MB (CK-2) Troponin I B-Natriuretic Peptide 197.57 H Total Protein Albumin ASSESSMENT/PLAN: 61 year old F with multiple medical comorbidities presented with worsening cough x 1 month admitted for acute asthma exacerbation #Acute Asthma/COPD exacerbation, likely 2/2 to prednisone taper -Prednisone 60 mg po daily -Duonebs 1 amp neb q4 prn -Duonebs 1 amp neb qidr -Symbicort 1 puff IH BID -Incruse Ellipta 62.5 mcg IH -Singular 10 mg po daily -O2 2L -Pulmonary Consult, Dr. Gibbs #Chest Pain, Atypical -Aspirin 81 mg po daily -Trend troponins/EKG -Recent cath on 08/16 @ [facility], no blockage -Morphine 1 mg IV q4h prn -Nitrostat 0.4 mg q5m prn -Cardiology consult, Dr. Laboy #CHF, not in acute exacerbation -Continue Lasix 40 mg po daily #SLE -Plaquenil 200 mg po bid -Methotrexate held (pt takes mtx 12.5 mg every tuesday) -Continue folic acid 2 mg po daily #HTN -Losartan 50 mg po daily -Lasix 40 mg po daily #HLD -Lipitor 10 mg po hs #DANY -on CPAP, patient brought home machine #DM -Hold oral hypoglycemics -BGM achs -ISS achs -Levemir 23 units sq daily (in AM) #Seizure Disorder -Tegretol 300 mg po bid #Migraines -Topirmate 100 mg po bid #Hypothyroidism -TSH -Synthroid 50 mcg po daily #Depression -Zoloft 100 mg po daily #GERD -protonix 40 mg po daily #FEN/GI -No IV fluids -WNL -Sodium/Diabetic Diet #PPx DVT- scds GI- protonix 40 mg po daily #Dispo -Tele/obs -Pending consults, pt likely needs longer prednisone taper Visit type - Emergency Visit Emergency Visit: Yes Care time: The patient presented to the Emergency Department on the above date and was hospitalized for further evaluation of their emergent condition. - New Patient This patient is new to me today: Yes Date on this admission: 11/07/16 - Critical Care Critical Care patient: No
[2016-11-07] MEDS ORDERED: morphine CARPU-JECT 2 MG/1 ML DISP.SYRIN IVPUSH PRN (20:22)
[2016-11-07] MEDS ORDERED: NITROGLYCERIN SUBLINGUAL 1/150 0.4 MG TAB SL PRN ×2 (20:22→21:01)
[2016-11-07] MEDS ORDERED: ALBUTEROL SO4 2.5/IPRATROPIUM 0.5 INH SOL 3 ML VIAL.NEB. NEB PRN (20:22)
[2016-11-07] MEDS ORDERED: PATIENT'S OWN MEDICATION (NON-FORMULARY) (Umeclidinium Bromide [Incruse Ellipta] 62.5 MCG) IH SCH (20:45)
[2016-11-07] MEDS ORDERED: ALBUTEROL SO4 18 GM HFA INHALER IH PRN (21:14)
[2016-11-07] MEDS ORDERED: PATIENT'S OWN MEDICATION (NON-FORMULARY) (Topiramate [Trokendi Xr] 100 MG) PO SCH (22:00)
[2016-11-07] MEDS: PRAMIPEXOLE DIHYDROCHLORIDE 0.5 MG TABLET PO SCH (23:29)
[2016-11-07] MEDS: HYDROXYCHLOROQUINE SO4 200 MG TABLET (FP) PO SCH (23:29)
[2016-11-07] MEDS: INSULIN SLIDING SCALE (NOVOLOG) 1 VIAL SQ SCH (23:30)
[2016-11-07] MEDS: BUDESONIDE/FORMETEROL FUMARATE 160/4.5 mcg INHALER IH SCH (23:30)
[2016-11-07] MEDS: ATORVASTATIN CA 10 MG TABLET (FP) PO SCH (23:35)
[2016-11-08] MEDS ORDERED: ALBUTEROL SO4 2.5/IPRATROPIUM 0.5 INH SOL 3 ML VIAL.NEB. NEB SCH
[2016-11-08 01:16] LABS: CPK 144 IU/L (26-192)
[2016-11-08 01:17] LABS: TROPONIN I < 0.02 ng/ml (0.00-0.05)
[2016-11-08] MEDS: INSULIN SLIDING SCALE (NOVOLOG) 1 VIAL SQ SCH ×4 (06:44→22:11)
[2016-11-08] MEDS: INSULIN DETEMIR 100 UNITS/ML MDV SQ SCH (06:46)
[2016-11-08] MEDS: LEVOTHYROXINE NA 50 MCG TABLET (FP) PO SCH (06:46)
[2016-11-08] MEDS ORDERED: PT OWN MED DRAWER 7, Y5N ONE ×4 (06:52→21:48)
[2016-11-08 07:34] LABS: EOSINOPHIL 0.1 % (0-4.5); MCH 29.3 pg (25.7-33.7); MCHC 32.6 g/dl (32.0-36.0); MEAN PLT VOLUME 8.2 fl (7.5-11.1); NEUTROPHILS 73.2 % (42.8-82.8); PLATELET COUNT 367 K/MM3 (134-434); RDW 15.5 % (11.6-15.6); WHITE BLOOD COUNT 9.7 K/mm3 (4.0-10.0)
[2016-11-08 08:22] LABS: ALBUMIN 3.3 g/dl (3.4-5.0); ANION GAP 9 (8-16); CALCIUM 9.1 mg/dL (8.5-10.1); CO2 28 mmol/L (21-32); CREATININE 1.1 mg/dL (0.55-1.02); GLUCOSE,RANDOM 115 mg/dL (74-106); MAGNESIUM 2.6 mg/dL (1.8-2.4); PHOSPHOROUS 3.4 mg/dL (2.5-4.9); SGOT/AST 16 U/L (15-37); SGPT/ALT 24 U/L (12-78)
[2016-11-08 08:33] LABS: ALK PHOS 142 U/L (45-117); BILIRUBIN,TOTAL 0.2 mg/dL (0.2-1.0); THYROID STIMULATING HORMONE 1.01 uIU/ml (0.358-3.74); TOT PROT 7.5 g/dl (6.4-8.2)
[2016-11-08] MEDS ORDERED: FLU VACCINE QUAD 60 MCG/0.5 ML (MDV 17-18) IM ONE (09:00)
[2016-11-08] MEDS ORDERED: predniSONE 20 MG TABLET (UD) PO SCH (10:00)
[2016-11-08] MEDS ORDERED: PATIENT'S OWN MEDICATION (NON-FORMULARY) (Linaclotide [Linzess] 145 MCG) PO SCH (10:00)
[2016-11-08] MEDS: SERTRALINE HCL 50 MG TABLET (FP) PO SCH (10:16)
[2016-11-08] MEDS: FOLIC ACID 1 MG TABLET (FP) PO SCH (10:16)
[2016-11-08] MEDS: HYDROXYCHLOROQUINE SO4 200 MG TABLET (FP) PO SCH ×2 (10:16→22:11)
[2016-11-08] MEDS: PANTOPRAZOLE 40 MG TABLET (FP) PO SCH (10:17)
[2016-11-08] MEDS: LOSARTAN POTASSIUM 50 MG TABLET (FP) PO SCH (10:17)
[2016-11-08] MEDS: ASPIRIN COATED 81 MG TABLET.EC PO SCH (10:17)
[2016-11-08] MEDS: MONTELUKAST NA 10 MG TABLET PO SCH (10:17)
[2016-11-08] MEDS: BUDESONIDE/FORMETEROL FUMARATE 160/4.5 mcg INHALER IH SCH ×3 (10:17→23:39)
[2016-11-08] MEDS: FUROSEMIDE 40 MG TABLET (FP) PO SCH (10:17)
--- NOTE | 2016-11-08 10:53 | EKG ---
Test Reason : Blood Pressure : / mmHG Vent. Rate : 063 BPM Atrial Rate : 063 BPM P-R Int : 170 ms QRS Dur : 090 ms QT Int : 452 ms P-R-T Axes : 044 -11 021 degrees QTc Int : 462 ms NORMAL SINUS RHYTHM MINIMAL VOLTAGE CRITERIA FOR LVH, MAY BE NORMAL VARIANT BORDERLINE ECG WHEN COMPARED WITH ECG OF 07-NOV-2016 20:56, NO SIGNIFICANT CHANGE WAS FOUND Confirmed by KRUPA SIERRA MD ([id number]) on 11/08/2016 10:53:23 AM Referred By: JOHN VELASQUEZ Confirmed By:KRUPA SIERRA MD
--- NOTE | 2016-11-08 10:53 | CON.CARD ---
Consult Consult Specialty:: cardio Referred by:: hospitalist Reason for Consultation:: sob, atyp cp - History of Present Illness Chief Complaint: same History of Present Illness: 61 yo female here for cough. sees dr garrison for copd/asthma, was on prednisone gradually tapered 40mg to 5mg as of few weeks ago. since then she notes incr cough--incessant, can't bring up any phlegm. during day and at night. assctd sob has prior h/o msarlyn cp. currently with increase in chest pains when coughing, occurs at rest. no radiation or assctd presyncope/diaphoresis. 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 No: Alzheimer's Pulmonary: Yes: Asthma ...LMP: 03/18/01 Infectious Disease: Yes: AIDS Rheumatology: Yes: Lupus Endocrine: Yes: Diabetes Mellitus - Past Surgical History Past Surgical History: Yes: Cataract Removal, Cholecystectomy, Joint Replacement (Right total hip replacement), Tonsillectomy - Alcohol/Substance Use Hx Alcohol Use: No History of Substance Use: reports: None - Smoking History Smoking history: Never smoked Have you smoked in the past 12 months: No Aproximately how many cigarettes per day: 0 If you are a former smoker, when did you quit?: 2004 - Social History ADL: Independent History of Recent Travel: No Home Medications - Allergies Allergies/Adverse Reactions: Allergies Allergy/AdvReac Type Severity Reaction Status Date / Time gabapentin [From Neurontin] Allergy PALPITATIONS, Verified 11/07/16 16:01 PASSES OUT Penicillins Allergy TONGUE Verified 11/07/16 16:01 Swelling phenytoin sodium Allergy diarrhea/vo Verified 11/07/16 16:01 [From Dilantin] miting phenytoin sodium extended Allergy Verified 11/07/16 16:01 [From Dilantin] theophylline [Theophylline] Allergy diarrhea,SE Verified 11/07/16 16:01 IZURES - Home Medications Home Medications: Ambulatory Orders Albuterol Sulfate Inhaler - [Ventolin HFA Inhaler -] 1 - 2 inh PO QID PRN Atorvastatin Ca [Lipitor] 10 mg PO DAILY 10/20/15 Biotin [Hard Nails] 5,000 mcg PO DAILY 10/20/15 Budesonide/Formeterol Fumarate [SYMBICORT 160/4.5mcg -] 1 inh PO BID 10/20/15 Carbamazepine Xr [Tegretol XR -] 300 mg PO BID 10/20/15 Folic Acid 2 mg PO DAILY 10/20/15 L.acidop,Daren,Lac,Rha/B.lac,Edmundo [Advanced Probiotic Capsule] 625 mg PO DAILY 06/29 Levothyroxine [Synthroid -] 50 mcg PO DAILY 10/20/15 Linaclotide [Linzess] 145 mcg PO DAILY 10/20/15 Methotrexate [Mexate -] 12.5 mg PO Q7D 10/20/15 Montelukast Na [Singulair -] 10 mg PO DAILY 10/20/15 [place]-3 Fatty Acids [[place]-3] 2 tab PO DAILY 10/20/15 Omeprazole [Prilosec] 40 mg PO DAILY 10/20/15 Sertraline HCl [Zoloft -] 100 mg PO DAILY 10/20/15 Topiramate [Trokendi Xr] 100 mg PO BID 10/20/15 Umeclidinium [place] [Incruse Ellipta] 62.5 mcg IH ASDIR 10/20/15 Albuterol 2.5/Ipratropium 0.5 [Duoneb -] 1 amp NEB QIDR #10 amp 03/09/16 Insulin Sliding Scale [Novolog Vial Sliding Scale -] See Protocol SQ AC #1 units 05/23/16 Exenatide [Byetta] 10 mcg SQ BID 08/13/16 Glipizide 10 mg PO BID 08/13/16 Hydroxychloroquine Sulfate [Plaquenil] 200 mg PO BID 08/13/16 Insulin Glargine,Hum.rec.anlog [Lantus (10mL VIAL) -] 23 units SQ DAILY Losartan Potassium [Cozaar -] 50 mg PO DAILY 08/13/16 Pramipexole Dihydrochloride [Mirapex -] 0.5 mg PO ASDIR 08/13/16 Furosemide [Lasix] 40 mg PO DAILY 10/12/16 Prednisone [Deltasone -] 5 mg PO DAILY 10/12/16 Family Disease History - Family Disease History Family History: Denies (no cmp) Review of Systems - Review of Systems Constitutional: denies: Chills, Fever Eyes: denies: Eye Pain HENT: denies: Nasal Congestion Neck: denies: Stiffness Cardiovascular: denies: Palpitations Respiratory: reports: Orthopnea, PND, Wheezing Gastrointestinal: denies: Diarrhea, Rectal Bleeding Genitourinary: denies: Burning, Hematuria Musculoskeletal: denies: Muscle Pain Integumentary: denies: Rash Neurological: denies: Numbness, Seizure, Syncope Endocrine: denies: Excessive Sweating Hematology/Lymphatic: denies: Excessive Bleeding Vital Signs: Vital Signs Temperature 97.4 F L 11/08/16 06:00 Pulse Rate 64 11/08/16 09:03 Respiratory Rate 18 11/08/16 09:03 Blood Pressure 123/63 11/08/16 09:03 O2 Sat by Pulse Oximetry (%) 98 11/08/16 09:00 Constitutional: Yes: No Distress, Obese Eyes: No: Sclera Icterus HENT: No: Nasal Congestion Neck: No: Decreased ROM Respiratory: Yes: CTA Bilaterally (decr sounds diffusely). No: Accessory Muscle Use, Rales, Wheezes Gastrointestinal: Yes: Normal Bowel Sounds. No: Distention, Hepatomegaly, Palpable Mass, Tenderness Cardiovascular: Yes: Regular Rate and Rhythm (decr intensity sounds) JVD: No Carotid Bruit: No PMI: Non-Displaced Heart Sounds: Yes: S1, S2. No: Gallop Murmur: No: Systolic Murmur, Diastolic Murmur Musculoskeletal: Yes: Other (No kyphosis) Extremities: No: Cold, Cyanosis Edema: No Peripheral Pulses: 2+ Left Carotid, 2+ Right Carotid, 2+ Left Doralis Pedis, 2+ Right Dorsalis Pedis Integumentary: No: Jaundice Neurological: Yes: Alert, Oriented (x3) Psychiatric: No: Agitated - Other Data Labs, Other Data: CBC, BMP 11/08/16 05:30 11/08/16 05:30 INR, PTT INR 1.16 (0.82-1.09) H 11/07/16 17:08 Troponin, BNP 11/07/16 11/08/16 23:45 05:30 Troponin I < 0.02 < 0.02 Troponin, BNP 11/07/16 11/08/16 23:45 05:30 Troponin I < 0.02 < 0.02 Laboratory Tests 11/07/16 11/07/16 11/07/16 17:08 17:08 23:45 WBC Hgb Plt Count Sodium Potassium Carbon Dioxide BUN Creatinine AST ALT Troponin I < 0.02 < 0.02 B-Natriuretic Peptide 197.57 H 11/08/16 11/08/16 11/08/16 05:30 05:30 05:30 WBC 9.7 Hgb 11.1 Plt Count 367 Sodium 141 Potassium 4.3 Carbon Dioxide 28 BUN 20 H Creatinine 1.1 H AST 16 D ALT 24 Troponin I < 0.02 B-Natriuretic Peptide tele: NSR Imaging - Results Chest X-ray: Report Reviewed Assessment/Plan [facility] 08/30 (chaim): mild luminal irregularities LCX; LVEDP 25 Nuclear Stress Test done 07/09/16: nl ecg, mild anteroseptal ischemia, nl lvef 79 % Echo 03/02: normal LV systolic function; nl RV; mild MR/TR; nl RVSP. CXR: clear lungs/pleura ECG: NSR, normal axis/intervals. no path q's, no ST-Ts acute asthma exacerbation: -presented with dry cough and wheezing -being tx'd for asthma here by hospitalist. -dr garrison consulted Atypical chest pain -SX'S ARE M-SKEL (PLEURITIC, WORSE WITH COUGHING) WITH NORMAL COR ANGIOGRAM ( PRIOR MPI FINDINGS HIGHLY LIKELY FALSE POSITIVE DUE TO SOFT TISSUE ATTENUATION) -SIMILAR SX'S HERE, NO FURTHER W/U INDICATED -d/c telemetry Chronic diastolic congestive heart failure -CHRONIC SOB MULTIFACTORIAL--LARGE COMPONENT FROM COPD, OBESITY/DECONDITIONING, AND DANY (INCLUDING PND). -HOWEVER REMAINS WITH ORTHOPNEA WELL. -LVEDP MODERATELY ELEVATED AT CATH (25). -SHE'S NOT SURE IF SOB IMPROVED SINCE STARTED LASIX 08/30, BUT EDEMA CERTAINLY DID. -BNP 350 (05/31). -ON LASIX 40 QD AT HOME. -EUVOLEMIC LIKELY HERE, CONT HOME REGIMEN. Essential hypertension -SBP 130-144 IN OFFICE -ON LASIX AND LOSARTAN AT HOME--CONT HERE Obstructive sleep apnea -COMPLYING WITH CPAP Pure hypercholesterolemia -PRIMARY PREVENTION, + DM. -MINIMAL SUBCLINICAL ATHERO ON CORONARY ANGIOGRAM. -TOLERATING ATORVA 10 FROM BEFORE, OMEGA-3 FA'S. -08/30: LDL 95, HDL 35, TG 172. Morbid obesity -BMI 46. -CONSIDERING BARIATRIC SURGERY--I REC'D THIS HAS SIGNIFICANT POTENTIAL TO DECREASE FUTURE COMORBIDITIES AND CV RISK Type 2 diabetes mellitus without complication -ON INSULIN. -A1C 6.9% (08/30). -PER PMD/ENDO SLE: -meds per pmd
--- NOTE | 2016-11-08 11:06 | EKG ---
Test Reason : Blood Pressure : / mmHG Vent. Rate : 077 BPM Atrial Rate : 077 BPM P-R Int : 172 ms QRS Dur : 076 ms QT Int : 398 ms P-R-T Axes : 028 -22 028 degrees QTc Int : 450 ms NORMAL SINUS RHYTHM VOLTAGE CRITERIA FOR LEFT VENTRICULAR HYPERTROPHY ABNORMAL ECG WHEN COMPARED WITH ECG OF 07-NOV-2016 16:49, NO SIGNIFICANT CHANGE WAS FOUND Confirmed by KRUPA SIERRA MD ([id number]) on 11/08/2016 11:06:18 AM Referred By: Confirmed By:KRUPA SIERRA MD
--- NOTE | 2016-11-08 11:13 | EKG ---
Test Reason : Blood Pressure : / mmHG Vent. Rate : 076 BPM Atrial Rate : 076 BPM P-R Int : 170 ms QRS Dur : 078 ms QT Int : 398 ms P-R-T Axes : 029 -21 038 degrees QTc Int : 447 ms NORMAL SINUS RHYTHM MODERATE VOLTAGE CRITERIA FOR LVH, MAY BE NORMAL VARIANT BORDERLINE ECG WHEN COMPARED WITH ECG OF 12-OCT-2016 16:33, NO SIGNIFICANT CHANGE WAS FOUND Confirmed by KRUPA SIERRA MD ([id number]) on 11/08/2016 11:13:30 AM Referred By: Confirmed By:KRUPA SIERRA MD
--- NOTE | 2016-11-08 11:37 | PN ---
Physical Exam: SUBJECTIVE: Patient seen and examined. Ms. Montoya states she feels better but still feels chest and neck tightness. She sleeps on several pillows. OBJECTIVE: Vital Signs Period Temp Pulse Resp BP Sys/Oconnell Pulse Ox Last 24 Hr 97.4 F-98.8 F 56-84 18-22 106-143/46-73 98-100 PE Neuro: alert, awake cn 2-12intact Pulm: course bc, clear, no wheezing appreciated + NC CV: s1s 2 rrr no mrg Abd: obese, s nt nd lower abd incision Ext: warm, no le edema Laboratory Results - last 24 hr 11/07/16 11/07/16 11/08/16 22:51 23:45 05:30 WBC RBC Hgb Hct MCV MCH MCHC RDW Plt Count MPV Neutrophils % Lymphocytes % Monocytes % Eosinophils % Basophils % Sodium Potassium Chloride Carbon Dioxide Anion Gap BUN Creatinine Creat Clearance w eGFR POC Glucometer 344 Random Glucose Hemoglobin A1c % 6.9 H Calcium Phosphorus Magnesium Total Bilirubin AST ALT Alkaline Phosphatase Creatine Kinase 144 Troponin I < 0.02 Total Protein Albumin TSH 11/08/16 11/08/16 11/08/16 05:30 05:30 05:30 WBC 9.7 RBC 3.77 Hgb 11.1 Hct 34.0 MCV 90.0 MCH 29.3 MCHC 32.6 RDW 15.5 Plt Count 367 MPV 8.2 Neutrophils % 73.2 Lymphocytes % 20.4 Monocytes % 5.3 Eosinophils % 0.1 Basophils % 1.0 Sodium 141 Potassium 4.3 Chloride 104 Carbon Dioxide 28 Anion Gap 9 BUN 20 H Creatinine 1.1 H Creat Clearance w eGFR 50.67 POC Glucometer Random Glucose 115 H Hemoglobin A1c % Calcium 9.1 Phosphorus 3.4 Magnesium 2.6 H D Total Bilirubin 0.2 AST 16 D ALT 24 Alkaline Phosphatase 142 H Creatine Kinase Troponin I < 0.02 Total Protein 7.5 Albumin 3.3 L TSH 1.01 D Active Medications Generic Name Dose Route Start Last Admin Trade Name Freq PRN Reason Stop Dose Admin Albuterol Sulfate 1 puff 11/07/16 21:14 Ventolin Hfa Inhaler - IH Q4H PRN SHORTNESS OF BREATH Aspirin 81 mg 11/08/16 10:00 11/08/16 10:17 Ecotrin - PO 81 mg DAILY DONTA Administration Atorvastatin Calcium 10 mg 11/07/16 23:15 11/07/16 23:35 Lipitor - PO 10 mg HS [facility] Administration Budesonide/Formoterol Fumarate 1 puff 11/07/16 22:00 11/08/16 10:17 Symbicort 160/4.5mcg - IH 1 puff BID [facility] Administration Carbamazepine 300 mg 11/07/16 22:00 11/08/16 10:18 Tegretol Xr - PO 300 mg BID DONTA Administration Folic Acid 2 mg 11/08/16 10:00 11/08/16 10:16 Folic Acid - PO 2 mg DAILY [facility] Administration Furosemide 40 mg 11/08/16 10:00 11/08/16 10:17 Lasix - PO 40 mg DAILY [facility] Administration Heparin Sodium (Porcine) 5,000 unit 11/08/16 06:00 Heparin - SQ TID [facility] Hydroxychloroquine Sulfate 200 mg 11/07/16 22:00 11/08/16 10:16 Plaquenil - PO 200 mg BID [facility] Administration Insulin Aspart 0 vial 11/07/16 22:00 11/08/16 06:44 Novolog Vial Sliding Scale - SQ Not Given [facility] Protocol Insulin Detemir 23 units 11/08/16 07:00 11/08/16 06:46 Levemir Vial SQ 23 units DAILY@0700 [facility] Administration Levothyroxine Sodium 50 mcg 11/08/16 07:00 11/08/16 06:46 Synthroid - PO 50 mcg DAILY@0700 [facility] Administration Losartan Potassium 50 mg 11/08/16 10:00 11/08/16 10:17 Cozaar - PO 50 mg DAILY [facility] Administration Methylprednisolone Sodium Succinate 40 mg 11/08/16 22:00 Solu-Medrol - IVPB BID [facility] Montelukast Sodium 10 mg 11/08/16 10:00 11/08/16 10:17 Singulair - PO 10 mg DAILY [facility] Administration Morphine Sulfate 1 mg 11/07/16 20:22 Morphine Injection - IVPUSH Q4H PRN PAIN Nitroglycerin 0.4 mg 11/07/16 21:01 Nitrostat - SL Q5M PRN FOR CHEST PAIN Non-Formulary Medication 145 mcg 11/08/16 10:00 Linaclotide [Linzess] PO DAILY [facility] Non-Formulary Medication 100 mg 11/07/16 22:00 Topiramate [Trokendi Xr] PO BID [facility] Non-Formulary Medication 62.5 mcg 11/07/16 20:45 Umeclidinium [place] [Incruse Ellipta] IH ASDIR DONTA Pantoprazole Sodium 40 mg 11/08/16 10:00 11/08/16 10:17 Protonix - PO 40 mg DAILY [facility] Administration Pramipexole Dihydrochloride 0.5 mg 11/07/16 20:45 11/07/16 23:29 Mirapex - PO 0.5 mg DAILY [facility] Administration Sertraline HCl 100 mg 11/08/16 10:00 11/08/16 10:16 Zoloft - PO 100 mg DAILY DONTA Administration Assessment: 61 year old female with pmh of COPD, HTN, HLD, seizure, SLE, DM, hypothyroid, DANY on CPAP presents with 1 month hx of dry cough, worsening over past week, now admitted with chest and back pain with acute asthma exacerbation Plan: 1. Acute asthma exacerbation/COPD - Stop prednisone PO - Change to medrol 40mg daily IV - Albuterol 1 amp neb q4 prn - Symbicort 1 puff IH BID - Incruse Ellipta 62.5mcg - Singular daily 2. Atypical chest pain - Serial trops x2 neg - Likely due to above, msk from cough - Previous cath normal 3. Chronic Diastolic HF - Continue lasix 40mg daily, increase per cardiology - Spironolactone addition as outpt - Cozaar 50mg daily 4. HTN - Meds above 5. SLE - Plaquenil 200 mg po bid - Methotrexate held (pt takes mtx 12.5 mg every tuesday) - Continue folic acid 2 mg po daily 6. HLD -Lipitor 10 mg po hs 7. DANY - Continue CPAP, patient brought home machine 8. DM II - Hgb a1c 6.9 - Continue Levemir 23u qam - ISS, BGM ACHS - Hold oral hypoglycemics 9. Seizure Disorder -Tegretol 300 mg po bid 10. Migraines -Topirmate 100 mg po bid 11. Hypothyroidism - TSH wnl - Maintain current Synthroid 50mcg 12. Depression - Zoloft 100mg day Visit type - Emergency Visit Emergency Visit: Yes ED Registration Date: 11/07/16 Care time: The patient presented to the Emergency Department on the above date and was hospitalized for further evaluation of their emergent condition. - New Patient This patient is new to me today: Yes Date on this admission: 11/08/16 - Critical Care Critical Care patient: No
[2016-11-08] MEDS: PRAMIPEXOLE DIHYDROCHLORIDE 0.5 MG TABLET PO SCH ×2 (11:40→13:51)
--- NOTE | 2016-11-08 12:21 | CON.PULM ---
Consult Reason for Consultation:: Exacerbation COPD - History of Present Illness Chief Complaint: shortness of breath History of Present Illness: 61 year old lady with known COPD, steroid and oxygen dependent, morbid obesity and obstructive sleep apnea on CPAP developed increased dyspnea and wheezing as Prednisone dose tapered. Pt treated in ER and now is improved with decreased shortness of breath. No fever, hemoptysis, chest pain or palpitations. 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 No: Alzheimer's Pulmonary: Yes: Asthma ...LMP: 03/18/01 Infectious Disease: Yes: AIDS Rheumatology: Yes: Lupus Endocrine: Yes: Diabetes Mellitus - Past Surgical History Past Surgical History: Yes: Cataract Removal, Cholecystectomy, Joint Replacement (Right total hip replacement), Tonsillectomy - Alcohol/Substance Use Hx Alcohol Use: No History of Substance Use: reports: None - Smoking History Smoking history: Never smoked Have you smoked in the past 12 months: No Aproximately how many cigarettes per day: 0 If you are a former smoker, when did you quit?: 2004 - Social History ADL: Independent History of Recent Travel: No Home Medications - Allergies Allergies/Adverse Reactions: Allergies Allergy/AdvReac Type Severity Reaction Status Date / Time gabapentin [From Neurontin] Allergy PALPITATIONS, Verified 11/07/16 16:01 PASSES OUT Penicillins Allergy TONGUE Verified 11/07/16 16:01 Swelling phenytoin sodium Allergy diarrhea/vo Verified 11/07/16 16:01 [From Dilantin] miting phenytoin sodium extended Allergy Verified 11/07/16 16:01 [From Dilantin] theophylline [Theophylline] Allergy diarrhea,SE Verified 11/07/16 16:01 IZURES - Home Medications Home Medications: Ambulatory Orders Albuterol Sulfate Inhaler - [Ventolin HFA Inhaler -] 1 - 2 inh PO QID PRN Atorvastatin Ca [Lipitor] 10 mg PO DAILY 10/20/15 Biotin [Hard Nails] 5,000 mcg PO DAILY 10/20/15 Budesonide/Formeterol Fumarate [SYMBICORT 160/4.5mcg -] 1 inh PO BID 10/20/15 Carbamazepine Xr [Tegretol XR -] 300 mg PO BID 10/20/15 Folic Acid 2 mg PO DAILY 10/20/15 L.acidop,Daren,Lac,Rha/B.lac,Edmundo [Advanced Probiotic Capsule] 625 mg PO DAILY 06/29 Levothyroxine [Synthroid -] 50 mcg PO DAILY 10/20/15 Linaclotide [Linzess] 145 mcg PO DAILY 10/20/15 Methotrexate [Mexate -] 12.5 mg PO Q7D 10/20/15 Montelukast Na [Singulair -] 10 mg PO DAILY 10/20/15 [place]-3 Fatty Acids [[place]-3] 2 tab PO DAILY 10/20/15 Omeprazole [Prilosec] 40 mg PO DAILY 10/20/15 Sertraline HCl [Zoloft -] 100 mg PO DAILY 10/20/15 Topiramate [Trokendi Xr] 100 mg PO BID 10/20/15 Umeclidinium [place] [Incruse Ellipta] 62.5 mcg IH ASDIR 10/20/15 Albuterol 2.5/Ipratropium 0.5 [Duoneb -] 1 amp NEB QIDR #10 amp 03/09/16 Insulin Sliding Scale [Novolog Vial Sliding Scale -] See Protocol SQ AC #1 units 05/23/16 Exenatide [[place]] 10 mcg SQ BID 08/13/16 Glipizide 10 mg PO BID 08/13/16 Hydroxychloroquine Sulfate [Plaquenil] 200 mg PO BID 08/13/16 Insulin Glargine,Hum.rec.anlog [Lantus (10mL VIAL) -] 23 units SQ DAILY Losartan Potassium [Cozaar -] 50 mg PO DAILY 08/13/16 Pramipexole Dihydrochloride [Mirapex -] 0.5 mg PO ASDIR 08/13/16 Furosemide [Lasix] 40 mg PO DAILY 10/12/16 Prednisone [Deltasone -] 5 mg PO DAILY 10/12/16 Review of Systems - Review of Systems Constitutional: denies: Chills, Fever Eyes: denies: Blurred Vision Cardiovascular: reports: Shortness of Breath. denies: Edema, Palpitations Respiratory: reports: Cough, Exercise Intolerance, SOB, Wheezing. denies: Hemoptysis Gastrointestinal: denies: Abdominal Pain, Rectal Bleeding, Vomiting, Vomiting Blood Neurological: reports: No Symptoms Physical Exam Vital Sings: Vital Signs Temperature 97.4 F L 11/08/16 06:00 Pulse Rate 64 11/08/16 09:03 Respiratory Rate 18 11/08/16 11:45 Blood Pressure 123/63 11/08/16 09:03 O2 Sat by Pulse Oximetry (%) 98 11/08/16 11:45 Constitutional: Yes: No Distress, Obese Eyes: No: Sclera Icterus HENT: No: Atraumatic, Normocephalic Neck: No: Supple, Trachea Midline Cardiovascular: Yes: Regular Rate and Rhythm. No: JVD Respiratory: Yes: Wheezes (mild bilateral) ...Palpation: No: Tenderness ...Percussion: No: Dullnes ...Clubbing: No Gastrointestinal: Yes: Soft. No: Hepatomegaly, Splenomegaly, Tenderness Extremities: No: Calf Tenderness Edema: No Neurological: Yes: Alert, Oriented Labs: CBC, BMP 11/08/16 05:30 11/08/16 05:30 Imaging - Results Chest X-ray: Report Reviewed, Image Reviewed (Portable: MARY) Assessment/Plan 61 year old lady with: AECOD-. No evidence of respiratory infection: probably related to reduction in Prednisone dose. No CHF. Morbid Obesity Obstructive Sleep Apnea Plan: Prednisone 40 mg daily-with tapering as patient improves. As outpatient would taper down to Prednisone 20 over 10 days then re-evaluate in office with slower taper-pt may need 10 mg maintenance dosage. Continue bronchodilators and inhaled steroids O2 Pt being evaluated for possible bariatric surgery CPAP continued nightly. Thank you for referring thispatient for consultation.
[2016-11-08] MEDS: HEPARIN NA (PORCINE) 5,000 UNITS/ML 1ML VIAL SQ SCH ×2 (13:46→22:09)
[2016-11-08] MEDS ORDERED: INSULIN (NOVOLOG) ASPART 100 UNITS/ML 10ML VIAL ONE (18:05)
[2016-11-08] MEDS ORDERED: ONDANSETRON 4 MG/2 ML VIAL IVPB PRN (18:26)
[2016-11-08] MEDS ORDERED: methylPREDNISolone NA SUCC 40 MG/1 ML VIAL IVPB SCH (22:00)
[2016-11-08] MEDS ORDERED: ATORVASTATIN CA 10 MG TABLET (FP) PO SCH (22:00)
[2016-11-08] MEDS: ATORVASTATIN CA 10 MG TABLET (FP) PO SCH (22:10)
[2016-11-09] MEDS: INSULIN SLIDING SCALE (NOVOLOG) 1 VIAL SQ SCH ×2 (06:39→12:37)
[2016-11-09] MEDS: LEVOTHYROXINE NA 50 MCG TABLET (FP) PO SCH (06:40)
[2016-11-09] MEDS: HEPARIN NA (PORCINE) 5,000 UNITS/ML 1ML VIAL SQ SCH (06:41)
[2016-11-09] MEDS: INSULIN DETEMIR 100 UNITS/ML MDV SQ SCH (06:41)
[2016-11-09 07:55] VITALS: BP 151/78; PULSE 66; TEMP 98
[2016-11-09 08:31] LABS: ANION GAP 6 (8-16); CALCIUM 9.4 mg/dL (8.5-10.1); CO2 30 mmol/L (21-32); CREATININE 1.1 mg/dL (0.55-1.02); GLUCOSE,RANDOM 119 mg/dL (74-106)
--- NOTE | 2016-11-09 09:02 | PN ---
Progress Note (short form) - Note Progress Note: s: still sob but a little better; no cp palps dizzy o: Vital Signs Period Temp Pulse Resp BP Sys/Oconnell Pulse Ox Last 24 Hr 97.8 F-98.8 F 62-78 18-20 123-158/63-78 98-98 Constitutional: Yes: No Distress, Obese Eyes: No: Sclera Icterus Respiratory: Yes: CTA Bilaterally (decr sounds diffusely). No: Accessory Muscle Use, Rales, Wheezes Gastrointestinal: Yes: Normal Bowel Sounds. No: Distention, Hepatomegaly, Palpable Mass, Tenderness Cardiovascular: Yes: Regular Rate and Rhythm (decr intensity sounds) JVD: No Heart Sounds: Yes: S1, S2. No: Gallop Murmur: No: Systolic Murmur, Diastolic Murmur Extremities: No: Cold, Cyanosis Edema: No Integumentary: No: Jaundice diaphoresis Neurological: Yes: Alert, Oriented (x3) Psychiatric: No: Agitated Current Medications Generic Name Dose Route Start Last Admin Trade Name Freq PRN Reason Stop Dose Admin Albuterol Sulfate 1 puff 11/07/16 21:14 Ventolin Hfa Inhaler - IH Q4H PRN SHORTNESS OF BREATH Aspirin 81 mg 11/08/16 10:00 11/08/16 10:17 Ecotrin - PO 81 mg DAILY DONTA Administration Atorvastatin Calcium 10 mg 11/07/16 23:15 11/08/16 22:10 Lipitor - PO 10 mg HS DONTA Administration Budesonide/Formoterol Fumarate 1 puff 11/07/16 22:00 11/08/16 23:39 Symbicort 160/4.5mcg - IH 1 puff BID ODNTA Administration Carbamazepine 300 mg 11/07/16 22:00 11/08/16 22:12 Tegretol Xr - PO 300 mg BID DONTA Administration Folic Acid 2 mg 11/08/16 10:00 11/08/16 10:16 Folic Acid - PO 2 mg DAILY DONTA Administration Furosemide 40 mg 11/08/16 10:00 11/08/16 10:17 Lasix - PO 40 mg DAILY DONTA Administration Heparin Sodium (Porcine) 5,000 unit 11/08/16 06:00 11/09/16 06:41 Heparin - SQ 5,000 unit TID DONTA Administration Hydroxychloroquine Sulfate 200 mg 11/07/16 22:00 11/08/16 22:11 Plaquenil - PO 200 mg BID DONTA Administration Insulin Aspart 0 vial 11/07/16 22:00 11/09/16 06:39 Novolog Vial Sliding Scale - SQ Not Given ACHS [facility] Protocol Insulin Detemir 23 units 11/08/16 07:00 11/09/16 06:41 Levemir Vial SQ 23 units DAILY@0700 DONTA Administration Levothyroxine Sodium 50 mcg 11/08/16 07:00 11/09/16 06:40 Synthroid - PO 50 mcg DAILY@0700 [facility] Administration Losartan Potassium 50 mg 11/08/16 10:00 11/08/16 10:17 Cozaar - PO 50 mg DAILY [facility] Administration Methylprednisolone Sodium Succinate 40 mg 11/09/16 10:00 Solu-Medrol - IVPB DAILY [facility] Montelukast Sodium 10 mg 11/08/16 10:00 11/08/16 10:17 Singulair - PO 10 mg DAILY [facility] Administration Morphine Sulfate 1 mg 11/07/16 20:22 Morphine Injection - IVPUSH Q4H PRN PAIN Nitroglycerin 0.4 mg 11/07/16 21:01 Nitrostat - SL Q5M PRN FOR CHEST PAIN Non-Formulary Medication 145 mcg 11/08/16 10:00 Linaclotide [Linzess] PO DAILY [facility] Non-Formulary Medication 100 mg 11/07/16 22:00 Topiramate [Trokendi Xr] PO BID [facility] Non-Formulary Medication 62.5 mcg 11/07/16 20:45 Umeclidinium [place] [Incruse Ellipta] IH ASDIR [facility] Ondansetron HCl 4 mg 11/08/16 18:26 Zofran Injection IVPB Q6H PRN NAUSEA Pantoprazole Sodium 40 mg 11/08/16 10:00 11/08/16 10:17 Protonix - PO 40 mg DAILY [facility] Administration Pramipexole Dihydrochloride 0.5 mg 11/07/16 20:45 11/08/16 13:51 Mirapex - PO 0.5 mg DAILY [facility] Administration Sertraline HCl 100 mg 11/08/16 10:00 11/08/16 10:16 Zoloft - PO 100 mg DAILY [facility] Administration CBC, BMP 11/08/16 05:30 Imaging - Results Chest X-ray: Report Reviewed [facility] 08/30 (chaim): mild luminal irregularities LCX; LVEDP 25 Nuclear Stress Test done 07/09/16: nl ecg, mild anteroseptal ischemia, nl lvef 79 % Echo 03/02: normal LV systolic function; nl RV; mild MR/TR; nl RVSP. CXR: clear lungs/pleura ECG: NSR, normal axis/intervals. no path q's, no ST-Ts Assessment/Plan acute asthma exacerbation: -presented with dry cough and wheezing -being tx'd for asthma here by hospitalist. -dr garrison consulted Atypical chest pain -SX'S ARE M-SKEL (PLEURITIC, WORSE WITH COUGHING) WITH NORMAL COR ANGIOGRAM ( PRIOR MPI FINDINGS HIGHLY LIKELY FALSE POSITIVE DUE TO SOFT TISSUE ATTENUATION) -SIMILAR SX'S HERE, NO FURTHER W/U INDICATED AT THIS TIME Chronic diastolic congestive heart failure -CHRONIC SOB MULTIFACTORIAL--LARGE COMPONENT FROM COPD, OBESITY/DECONDITIONING, AND DANY (INCLUDING PND). -HOWEVER REMAINS WITH ORTHOPNEA WELL. -LVEDP MODERATELY ELEVATED AT CATH (25). -SHE'S NOT SURE IF SOB IMPROVED SINCE STARTED LASIX 08/30, BUT EDEMA CERTAINLY DID. -BNP 350 (05/31). -ON LASIX 40 QD AT HOME. -EUVOLEMIC LIKELY HERE, CONT HOME REGIMEN. Essential hypertension -ON LASIX AND LOSARTAN AT HOME--CONT HERE Obstructive sleep apnea -COMPLYING WITH CPAP Pure hypercholesterolemia -PRIMARY PREVENTION, + DM. -MINIMAL SUBCLINICAL ATHERO ON CORONARY ANGIOGRAM. -TOLERATING ATORVA 10 FROM BEFORE, OMEGA-3 FA'S. -08/30: LDL 95, HDL 35, TG 172. Morbid obesity -BMI 46. -CONSIDERING BARIATRIC SURGERY--I REC'D THIS HAS SIGNIFICANT POTENTIAL TO DECREASE FUTURE COMORBIDITIES AND CV RISK Type 2 diabetes mellitus without complication -ON INSULIN. -A1C 6.9% (08/30). -PER PMD/ENDO SLE: -meds per pmd
--- NOTE | 2016-11-09 09:18 | DS ---
Physical Exam: SUBJECTIVE: Patient seen and examined OBJECTIVE: Vital Signs Period Temp Pulse Resp BP Sys/Oconnell Pulse Ox Last 24 Hr 97.8 F-98.8 F 62-78 18-20 133-158/67-78 98-98 PHYSICAL EXAM GENERAL: The patient is awake, alert, and fully oriented, in no acute distress. Morbidly obese HEAD: Normal with no signs of trauma. NECK: Trachea midline, full range of motion, supple. LUNGS: Breath sounds equal, clear to auscultation bilaterally HEART: Regular rate and rhythm, S1, S2 ABDOMEN: Soft, nontender, nondistended, normoactive bowel sounds EXTREMITIES: 2+ pulses, warm, well-perfused, no edema. NEUROLOGICAL: Cranial nerves II through XII grossly intact. Normal speech, gait not observed. PSYCH: Normal mood, normal affect. SKIN: Warm, dry, normal turgor, no rashes or lesions noted. LABS Laboratory Results - last 24 hr 11/08/16 11/08/16 11/08/16 11:34 15:35 22:03 POC Glucometer 135 239 170 11/09/16 06:24 POC Glucometer 125 HOSPITAL COURSE: Date of Admission:11/07/16 Date of Discharge: 11/09/16 Minutes to complete discharge: 35 Discharge Summary Reason For Visit: MORBID OBESITY, COPD Current Active Problems Atypical chest pain (Resolved) COPD (chronic obstructive pulmonary disease) (Acute) CKD (chronic kidney disease) stage 3, GFR 30-59 ml/min (Chronic) Morbid obesity (Chronic) Sleep apnea, obstructive (Chronic) Type 2 diabetes mellitus (Chronic) Hospital Course: This is a 61 year old female with pmh of COPD, HTN, HLD, seizure, SLE, DM, hypothyroid, DANY on CPAP presents with 1 month hx of dry cough, worsening over past week, now admitted with chest and back pain with acute asthma exacerbation Plan: 1. Acute asthma exacerbation/COPD - Discharge with Prednisone taper as discussed with Dr. Hyde - Albuterol 1 amp neb q4 prn - Symbicort 1 puff IH BID - Increase Ellipta 62.5mcg - Singular daily 2. Atypical chest pain - Serial trops x2 neg - Likely due to above, msk from cough - Previous cath normal 3. Chronic Diastolic HF - Continue lasix 40mg daily, increase per cardiology - Spironolactone addition as outpt - Cozaar 50mg daily 4. HTN - Meds above 5. SLE - Plaquenil 200 mg po bid - Methotrexate held (pt takes mtx 12.5 mg every tuesday) - Continue folic acid 2 mg po daily 6. HLD -Lipitor 10 mg po hs 7. DANY - Continue CPAP, patient brought home machine 8. DM II - Hgb a1c 6.9 - Continue Levemir 23u qam - ISS, BGM ACHS - Hold oral hypoglycemics 9. Seizure Disorder -Tegretol 300 mg po bid 10. Migraines -Topirmate 100 mg po bid 11. Hypothyroidism - TSH wnl - Maintain current Synthroid 50mcg 12. Depression - Zoloft 100mg day Condition: Improved - Instructions Diet, Activity, Other Instructions: Please return to the ED with new, persistent, or worsening symptoms. Please follow-up with providers as indicated. Prednisone taper: Take 40mg (4 tablets) of Prednisone by mouth for 4 days starting on 11/10/16 Take 30mg (3 tablets) of Prednisone by mouth for 5 days starting on 11/14/16 Take 20mg (2 tablets) of Prednisone by mouth for 5 days starting on 11/19/16 You MUST follow-up with your senior systems engineer within 1 week to discuss your Prednisone taper and for your doctor to determine duration of steroid therapy Referrals: Pipo Rojas MD [Staff Physician] - (Please follow-up with Dr. Rojas for a consultation for bariatic surgery) Orion Laboy MD [Staff Physician] - 1 Week Morgan Hyde MD [Staff Physician] - (Please follow-up with Dr. Hyde (pulmonary) within 1 week for further management of your asthma) Disposition: HOME - Home Medications Comprehensive Discharge Medication List: Ambulatory Orders Albuterol Sulfate Inhaler - [Ventolin HFA Inhaler -] 1 - 2 inh PO QID PRN Atorvastatin Ca [Lipitor] 10 mg PO DAILY 10/20/15 Biotin [Hard Nails] 5,000 mcg PO DAILY 10/20/15 Budesonide/Formeterol Fumarate [SYMBICORT 160/4.5mcg -] 1 inh PO BID 10/20/15 Carbamazepine Xr [Tegretol XR -] 300 mg PO BID 10/20/15 Folic Acid 2 mg PO DAILY 10/20/15 L.acidop,Daren,Lac,Rha/B.lac,Edmundo [Advanced Probiotic Capsule] 625 mg PO DAILY 06/29 Levothyroxine [Synthroid -] 50 mcg PO DAILY 10/20/15 Linaclotide [Linzess] 145 mcg PO DAILY 10/20/15 Methotrexate [Mexate -] 12.5 mg PO Q7D 10/20/15 Montelukast Na [Singulair -] 10 mg PO DAILY 10/20/15 Desdemona-3 Fatty Acids [Desdemona-3] 2 tab PO DAILY 10/20/15 Omeprazole [Prilosec] 40 mg PO DAILY 10/20/15 Sertraline HCl [Zoloft -] 100 mg PO DAILY 10/20/15 Topiramate [Trokendi Xr] 100 mg PO BID 10/20/15 Umeclidinium [place] [Incruse Ellipta] 62.5 mcg IH ASDIR 10/20/15 Albuterol 2.5/Ipratropium 0.5 [Duoneb -] 1 amp NEB QIDR #10 amp 03/09/16 Insulin Sliding Scale [Novolog Vial Sliding Scale -] See Protocol SQ AC #1 units 05/23/16 Exenatide [Byetta] 10 mcg SQ BID 08/13/16 Glipizide 10 mg PO BID 08/13/16 Hydroxychloroquine Sulfate [Plaquenil] 200 mg PO BID 08/13/16 Insulin Glargine,Hum.rec.anlog [Lantus (10mL VIAL) -] 23 units SQ DAILY Losartan Potassium [Cozaar -] 50 mg PO DAILY 08/13/16 Pramipexole Dihydrochloride [Mirapex -] 0.5 mg PO ASDIR 08/13/16 Furosemide [Lasix] 40 mg PO DAILY 10/12/16 Aspirin Coated [Ecotrin -] 81 mg PO DAILY #30 tab 11/09/16 This patient is new to me today: Yes Date on this admission: 11/09/16 Emergency Visit: Yes ED Registration Date: 11/07/16 Care time: The patient presented to the Emergency Department on the above date and was hospitalized for further evaluation of their emergent condition. Critical Care patient: No - Discharge Referral Referred to [facility] Med P.C.: Yes Physician Referral: Azael Sauer MD (Int Med)
[2016-11-09] MEDS: FOLIC ACID 1 MG TABLET (FP) PO SCH (09:33)
[2016-11-09] MEDS: ASPIRIN COATED 81 MG TABLET.EC PO SCH (09:33)
[2016-11-09] MEDS: LOSARTAN POTASSIUM 50 MG TABLET (FP) PO SCH (09:33)
[2016-11-09] MEDS: MONTELUKAST NA 10 MG TABLET PO SCH (09:33)
[2016-11-09] MEDS: PANTOPRAZOLE 40 MG TABLET (FP) PO SCH (09:33)
[2016-11-09] MEDS: PRAMIPEXOLE DIHYDROCHLORIDE 0.5 MG TABLET PO SCH (09:34)
[2016-11-09] MEDS: FUROSEMIDE 40 MG TABLET (FP) PO SCH (09:34)
[2016-11-09] MEDS: HYDROXYCHLOROQUINE SO4 200 MG TABLET (FP) PO SCH (09:34)
[2016-11-09] MEDS: BUDESONIDE/FORMETEROL FUMARATE 160/4.5 mcg INHALER IH SCH (09:34)
[2016-11-09] MEDS: SERTRALINE HCL 50 MG TABLET (FP) PO SCH (09:34)
[2016-11-09] MEDS ORDERED: methylPREDNISolone NA SUCC 40 MG/1 ML VIAL IVPB SCH (10:00)
== END 2016-11-09 14:33 | disposition home or self-care (01) | DRG 191 ==
LOC: JER 15:58 → J4W 22:37 → OBSVTOIN 11-09 07:00
PROVIDERS: ADMIT Internal Medicine; ATTEND Registered Nurse
PROC: 5A09357 Assistance with Respiratory Ventilation, Less than 24 Consecutive Hours, Continuous Positive Airway Pressure (ICD-10-PCS; principal; 2016-11-09)
DX: J44.1 Chronic obstructive pulmonary disease with (acute) exacerbation (principal); Z68.42 Body mass index [BMI] 45.0-49.9, adult; I13.0 Hypertensive heart and chronic kidney disease with heart failure and stage 1 through stage 4 chronic kidney disease, or unspecified chronic kidney disease; I50.32 Chronic diastolic (congestive) heart failure; R07.89 Other chest pain; E78.5 Hyperlipidemia, unspecified; G47.33 Obstructive sleep apnea (adult) (pediatric); E11.9 Type 2 diabetes mellitus without complications; G40.909 Epilepsy, unspecified, not intractable, without status epilepticus; G43.909 Migraine, unspecified, not intractable, without status migrainosus; E03.9 Hypothyroidism, unspecified; F32.9 Major depressive disorder, single episode, unspecified; M32.9 Systemic lupus erythematosus, unspecified; E66.01 Morbid (severe) obesity due to excess calories; J20.9 Acute bronchitis, unspecified; K21.9 Gastro-esophageal reflux disease without esophagitis; E11.22 Type 2 diabetes mellitus with diabetic chronic kidney disease; N18.3 Chronic kidney disease, stage 3 (moderate)
CPT/HCPCS: 36415; 71010-TC; 80048; 80053; 82553; 83036; 83735; 83880; 84100; 84443; 84484; 85025; 85610; 87804; 90688; 93005; 93010; 99284-25; G0008; G0378; J1644

== ENCOUNTER 2016-11-23 07:22 | Inpatient (IN) | payer OTHER ==
[2016-11-19 10:55] VITALS: BMI 48.4
[~2016-11-23 07:22] MED LIST changes: +BUPIVACAINE HCL/PF 0.5% (5MG/ML) 10 ML VIAL IJ ONE; -PATIENT'S OWN MEDICATION (NON-FORMULARY) (Insulin Glargine,Hum.Rec.Anlog 15 UNITS) NS SCH
[2016-11-23] MEDS ORDERED: MIDAZOLAM HCL 2 MG/2 ML SINGLE DOSE VIAL ONE ×2 (07:38→08:53)
[2016-11-23] MEDS ORDERED: SUCCINYLCHOLINE CHLORIDE 200 MG/10 ML VIAL ONE (07:39)
[2016-11-23] MEDS ORDERED: PROPOFOL 20 ML ONE ×6 (07:40→08:52)
[2016-11-23] MEDS ORDERED: LIDOCAINE HCL/PF 2% SDV 5ML VIAL ONE (07:45)
[2016-11-23] MEDS ORDERED: ROCURONIUM BROMIDE 50 MG/5 ML VIAL ONE ×3 (08:52→10:30)
[2016-11-23] MEDS ORDERED: ceFAZolin SODIUM 1 GM VIAL ONE ×2 (08:57→09:25)
[2016-11-23] MEDS ORDERED: HYDROCORTISONE SOD SUCCINATE 2 ML ONE ×2 (09:26→09:54)
[2016-11-23] MEDS ORDERED: CLINDAMYCIN 600 MG PREMIX BAG IVPB ONE (10:05)
[2016-11-23] MEDS ORDERED: CLINDAMYCIN PHOSPHATE 600 MG/4 ML VIAL ONE (10:06)
[2016-11-23] MEDS ORDERED: ePHEDrine SULFATE 50 MG/1 ML AMPULE ONE (10:20)
[2016-11-23] MEDS ORDERED: ALBUTEROL SO4 18 GM HFA INHALER IH ONE (10:47)
[2016-11-23] MEDS ORDERED: NEOSTIGMINE METHYLSULFATE 0.5 MG/ML - 10 ML MDV ONE (11:26)
[2016-11-23] MEDS ORDERED: GLYCOPYRROLATE 0.2 MG/1 ML VIAL ONE (11:26)
[2016-11-23] MEDS ORDERED: BUPIVACAINE HCL/PF 0.5% (5MG/ML) 10 ML VIAL IJ ONE (11:30)
[2016-11-23] MEDS ORDERED: PROMETHAZINE HCL 25 MG/1 ML VIAL IVPUSH PRN (11:55)
[2016-11-23] MEDS ORDERED: oxyCODONE HCL 5 MG TABLET PO PRN (11:55)
[2016-11-23] MEDS ORDERED: LACTATED RINGERS SOLUTION 1,000 ML IV SCH (12:00)
[2016-11-23] MEDS ORDERED: ONDANSETRON 4 MG/2 ML VIAL IVPB PRN ×2 (12:42→21:14)
[2016-11-23] MEDS ORDERED: HYDROmorphone HCL CARPU-JECT 1 MG/1 ML DISP.SYRIN IVPB PRN (12:42)
[2016-11-23] MEDS ORDERED: ENOXAPARIN NA (PORCINE) 40 MG/0.4 ML DISP.SYRIN SQ ONE ×2 (12:42→14:55)
[2016-11-23] MEDS ORDERED: SODIUM CHLORIDE 1,000 ML IV SCH (12:45)
--- NOTE | 2016-11-23 13:18 | HP ---
[facility] - Chief Complaint Chief Complaint: Morbid obesity History Source: Patient Limitations to Obtaining History: No Limitations - Past Medical History Allergies/Adverse Reactions: Allergies Allergy/AdvReac Type Severity Reaction Status Date / Time gabapentin [From Neurontin] Allergy PALPITATIONS, Verified 11/19/16 10:56 PASSES OUT Penicillins Allergy TONGUE Verified 11/19/16 10:56 Swelling phenytoin sodium Allergy diarrhea/vo Verified 11/19/16 10:56 [From Dilantin] miting phenytoin sodium extended Allergy Verified 11/19/16 10:56 [From Dilantin] theophylline [Theophylline] Allergy diarrhea,SE Verified 11/19/16 10:56 IZURES [employer]UD[employer] 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 No: Alzheimer's Pulmonary: Yes: Asthma ...LMP: 03/18/01 Infectious Disease: Yes: AIDS Rheumatology: Yes: Lupus Endocrine: Yes: Diabetes Mellitus - Current Medications Current Medications: Home Medications Medication Instructions Recorded Atorvastatin Ca [Lipitor] 10 mg PO HS 10/20/15 Biotin [Hard Nails] 5,000 mcg PO DAILY 10/20/15 Budesonide/Formeterol Fumarate 2 inh PO BID 10/20/15 [SYMBICORT 160/4.5mcg -] Carbamazepine Xr [Tegretol XR -] 300 mg PO BID 10/20/15 Folic Acid 1 mg PO DAILY 10/20/15 Levothyroxine [Synthroid -] 50 mcg PO UTDICT 10/20/15 Linaclotide [Linzess] 145 mcg PO UTDICT 10/20/15 Methotrexate [Mexate -] 12.5 mg PO WEEKLY 10/20/15 Montelukast Na [Singulair -] 10 mg PO DAILY 10/20/15 Butler-3 Fatty Acids [[place]ler-3] 3 tab PO DAILY 10/20/15 Sertraline HCl [Zoloft -] 100 mg PO DAILY 10/20/15 Topiramate [Trokendi Xr] 100 mg PO BID 10/20/15 Umeclidinium [place] [Incruse 62.5 mcg IH DAILY 10/20/15 Ellipta] Insulin Sliding Scale [Novolog See Protocol SQ AC #1 units 05/23/16 Vial Sliding Scale -] Glipizide 10 mg PO BID 08/13/16 Hydroxychloroquine Sulfate 200 mg PO BID 08/13/16 [Plaquenil] Insulin Glargine,Hum.rec.anlog 22 units SQ DAILY 08/13/16 [Lantus (10mL VIAL) -] Losartan Potassium [Cozaar -] 50 mg PO DAILY 08/13/16 Furosemide [Lasix] 40 mg PO DAILY 10/12/16 Aspirin Coated [Ecotrin -] 81 mg PO DAILY #30 tab 11/09/16 Albuterol Sulfate [Proair 90 mcg IH PRN PRN 11/19/16 Respiclick] Meloxicam [Mobic] 15 mg PO DAILY 11/19/16 Pramipexole Dihydrochloride 0.5 mg PO BID 11/19/16 [Mirapex -] Prednisone 20 mg PO ASDIR 11/19/16 Tiotropium [place] [Spiriva] 1 inh PO DAILY 11/19/16 Famotidine [Pepcid] 20 mg PO BID #60 tablet 11/23/16 Oxycodone HCl/Acetaminophen 1 - 2 tab PO Q6H #28 tab MDD 4 11/23/16 [Percocet 5-325 mg Tablet] Satellite Physical Exam - Physical Examination Vital Signs: Vital Signs Period Temp Pulse Resp BP Sys/Oconnell Pulse Ox Last 24 Hr 98.2 F-98.3 F 80-88 12-18 109-129/49-65 97-100 General Appearance: Calm Lung: Clear to auscultation Heart: Regular rate & rhythm Abdomen: Soft Neurological: Alert, Oriented Satellite Impression/Plan - Impression/Plan Impression: Morbid obesity Operative Procedure: laparoscopic possible open gastric band placement possible liver biopsy Date to be Performed: 11/23/16
--- NOTE | 2016-11-23 13:19 | OP ---
Operative Note - Note: Operative Date: 11/23/16 Pre-Operative Diagnosis: Morbid obesity Operation: Laparoscopic gastric band placement, wedge liver biopsy Post-Operative Diagnosis: Other (Morbid obesity, hepatomegaly) Surgeon: Pipo Rojas Derrick Boat Runner: Preston Ivy Anesthesia: General Specimens Removed: Liver biopsy- wedge Estimated Blood Loss (mls): 30 Operative Report Dictated: Yes
[2016-11-23 13:35] LABS: MCH 29.1 pg (25.7-33.7); MCHC 32.2 g/dl (32.0-36.0); MEAN CELL VOLUME 90.4 fl (80-96); MEAN PLT VOLUME 7.7 fl (7.5-11.1); PLATELET COUNT 306 K/MM3 (134-434); RDW 16.5 % (11.6-15.6); WHITE BLOOD COUNT 15.5 K/mm3 (4.0-10.0)
[2016-11-23 13:51] LABS: ANION GAP 8 (8-16); CALCIUM 8.4 mg/dL (8.5-10.1); CO2 26 mmol/L (21-32); CREATININE 1.1 mg/dL (0.55-1.02); GLUCOSE,RANDOM 187 mg/dL (74-106)
--- NOTE | 2016-11-23 14:20 | SPEC ---
DATE OF OPERATION: 11/23/2016 SURGEON: Pipo Rojas MD HOUSEHOLD COOK: Preston Ivy MD PREOPERATIVE DIAGNOSIS: Morbid obesity. POSTOPERATIVE DIAGNOSIS: Morbid obesity and hepatomegaly. PROCEDURE: Laparoscopic gastric band placement and excisional wedge liver biopsy of the left lobe of the liver. SPECIMEN: Left lobe liver wedge biopsy. ESTIMATED BLOOD LOSS: 30 mL. DRAINS: None. ANESTHESIA: GET. REASON FOR PROCEDURE: This is a 61-year-old female presented to the office for weight loss, options. After describing different options, she decided to proceed with a laparoscopic, possible open, gastric band placement for gastric restriction. The patient was seen by the respective subspecialties and cleared for surgery. The risks and benefits of the procedure were explained. These included bleeding, infection, hernia, CO, DVT, PE, injury to surrounding structures including the liver, colon, bowel, spleen, esophagus, vessel injury, nerve injury, weight regain, obstruction, gastric band slip, gastric band erosion, port site slip, port site infection, vitamin deficiency, hair loss, and as some of the possible complications. The patient understood and signed informed consent. DESCRIPTION OF PROCEDURE: The patient was placed supine on the operating room table. The patient underwent general endotracheal intubation. The arms were brought out at 90 degrees and secured. A footboard was placed and the legs were secured laterally with padding. The abdomen was prepped and draped in the usual sterile fashion. A time-out was performed. An incision was made in the left upper quadrant and a Veress needle inserted. Pneumoperitoneum was established. The Veress needle was then removed and a 12-mm trocar inserted. Inspection of the abdominal cavity was then performed with the laparoscopic camera. Subsequently, in the right upper quadrant to the right of midline, a 15-mm trocar was inserted under direct visualization. A 5-mm trocar was placed further laterally in the right upper quadrant and a 12-mm trocar placed below the left costal margin. A stab wound was made in the subxiphoid area and a Dena clamp inserted and removed to dilate the tract. A Pina liver retractor was inserted. The post was secured at the bedside by the nursing staff. The patient was placed in steep reverse Trendelenburg position, and the Pina liver retractor was used to secure the liver towards the anterior abdominal wall. The fundus of the stomach was noted and grasped towards the patient's right side and caudad. The omentum was also retracted downward as well. Electrocautery was used to score the peritoneum over the left esophagogastric junction freeing this area until the left nikki of the diaphragm was noted. The stomach was then pulled laterally to the patients left side, and the caudate lobe of the liver was identified. The pars flaccida was identified, and an opening created within it. The right nikki of the diaphragm was noted. The caudate lobe of the liver was retracted, and the inferior vena cava was noted to be away from the field. The peritoneum anterior to the right nikki was scored with electrocautery, and a laparoscopic dissector was used to gently make a tunnel from the right to the left nikki until it was free in the left upper quadrant of the abdomen. The gastric band was then chosen and prepped by the surgical pathologist. This was then placed within the abdominal cavity. The band tubing was placed into the laparoscopic dissector, which was pulled and withdrawn to the patients right side. The band tubing was placed within the band buckle and secured, securing the band around the stomach. The band was noted to be in good position and not too tight around the stomach. The stomach was then imbricated over the band. An Endo Stitch was used to grab the body of the stomach and secure it to itself, imbricating the stomach over the band. Hemostasis was noted. The band tubing was then brought out of the 15-mm trocar. A wedge liver biopsy was then performed. The left lobe of the liver was identified. A portion of the edge of the left lobe of the liver was grasped. Using electrocautery, a wedge of the left liver was excised. The specimen was removed and sent off the field. Hemostasis of the wedge liver biopsy site was attained and noted using electrocautery. The Pina liver retractor was removed under direct visualization. Pneumoperitoneum was desufflated and all trocars removed. The skin at the 15-mm trocar site was extended, and dissection continued until the anterior fascia was identified. Four 2-0 Prolene sutures were placed in the fascia. The end of the band tubing was cut and removed and sent off the field. The port was secured to the band tubing. The port was secured to the fascia using the four 2-0 Prolene sutures. Hemostasis was again noted. Antibiotic irrigation was placed within all incision sites and Marcaine was injected at all incision sites. A 3-0 Vicryl suture was used to close the deep subcutaneous tissue at this area, and 4-0 Biosyn sutures were used to close all incision sites. Sterile dressings were applied. The patient tolerated the procedure well and was transferred to the recovery room in stable condition. Da CLEMONS/[id number]
[2016-11-23] MEDS ORDERED: ALBUTEROL SO4 18 GM HFA INHALER IH PRN (15:15)
[2016-11-23] MEDS: SODIUM CHLORIDE 1,000 ML IV SCH (17:22)
[2016-11-23] MEDS: INSULIN SLIDING SCALE (NOVOLOG) 1 VIAL SQ SCH (17:23)
[2016-11-23] MEDS ORDERED: PT OWN MED DRAWER 7, Y5N ONE (21:22)
[2016-11-23] MEDS ORDERED: FAMOTIDINE 20 MG/50 ML IVPB 50 ML IVPB SCH (22:00)
[2016-11-23] MEDS: FAMOTIDINE 20 MG/50 ML IVPB 50 ML IVPB SCH (23:03)
[2016-11-23] MEDS: carBAMazepine XR 200 MG TAB.ER.12H PO SCH (23:04)
[2016-11-23] MEDS: PRAMIPEXOLE DIHYDROCHLORIDE 0.5 MG TABLET PO SCH (23:04)
[2016-11-23] MEDS: TOPIRAMATE 25 MG TABLET (FP) PO SCH (23:04)
[2016-11-23] MEDS: MONTELUKAST NA 10 MG TABLET PO SCH (23:04)
[2016-11-23] MEDS: BUDESONIDE/FORMETEROL FUMARATE 160/4.5 mcg INHALER IH SCH (23:05)
[2016-11-24] MEDS: HYDROmorphone HCL CARPU-JECT 1 MG/1 ML DISP.SYRIN IVPB PRN ×2 (02:08→17:07)
[2016-11-24] MEDS: LEVOTHYROXINE NA 50 MCG TABLET (FP) PO SCH (06:55)
[2016-11-24] MEDS: INSULIN SLIDING SCALE (NOVOLOG) 1 VIAL SQ SCH ×3 (07:28→16:39)
--- NOTE | 2016-11-24 10:14 | PN ---
Progress Note (short form) - Note Progress Note: POD #1 - s/p laparoscopic gastric banding under general anesthesia. Pt. doing well, walking about room without difficulty. C/o some sore throat from endotracheal tube - reassured it should dissipate over the next few days. Continue current care.
[2016-11-24] MEDS ORDERED: PT OWN MED DRAWER 7, Y5N ONE ×2 (10:38→20:32)
[2016-11-24] MEDS: BUDESONIDE/FORMETEROL FUMARATE 160/4.5 mcg INHALER IH SCH ×2 (10:44→21:29)
[2016-11-24] MEDS: FUROSEMIDE 40 MG TABLET (FP) PO SCH (10:46)
[2016-11-24] MEDS: SERTRALINE HCL 50 MG TABLET (FP) PO SCH (10:46)
[2016-11-24] MEDS: LOSARTAN POTASSIUM 50 MG TABLET (FP) PO SCH (10:47)
[2016-11-24] MEDS: TOPIRAMATE 25 MG TABLET (FP) PO SCH ×2 (10:47→21:29)
[2016-11-24] MEDS: FAMOTIDINE 20 MG/50 ML IVPB 50 ML IVPB SCH ×2 (10:47→21:29)
[2016-11-24] MEDS: carBAMazepine XR 200 MG TAB.ER.12H PO SCH ×2 (10:48→21:30)
[2016-11-24] MEDS: PRAMIPEXOLE DIHYDROCHLORIDE 0.5 MG TABLET PO SCH ×2 (10:48→21:28)
[2016-11-24] MEDS: oxyCODONE HCL 5 MG TABLET PO PRN (11:40)
--- NOTE | 2016-11-24 16:31 | CON.PULM ---
Consult - History of Present Illness History of Present Illness: 61 year old woman S/P Laparacopic Gastric Band placement yesterday Patient has COPD, steroid and oxygen dependent, morbid obesity and obstructive sleep apnea on CPAP. Patient's steroids were being gradually tapered as an outpt. Pt currently is without significant dyspnea. She has been able to ambulate today. No wheezing, chest pain or cough. She complains of pain at incision sites. 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 No: Alzheimer's Pulmonary: Yes: Asthma ...LMP: 03/18/01 Infectious Disease: Yes: AIDS Rheumatology: Yes: Lupus Endocrine: Yes: Diabetes Mellitus - Past Surgical History Past Surgical History: Yes: Cataract Removal, Cholecystectomy, Joint Replacement (Right total hip replacement), Tonsillectomy - Alcohol/Substance Use Hx Alcohol Use: No History of Substance Use: reports: None - Smoking History Smoking history: Former smoker Have you smoked in the past 12 months: No Aproximately how many cigarettes per day: 0 If you are a former smoker, when did you quit?: 15YRS AGO - Social History ADL: Independent History of Recent Travel: No Home Medications - Allergies Allergies/Adverse Reactions: Allergies Allergy/AdvReac Type Severity Reaction Status Date / Time gabapentin [From Neurontin] Allergy PALPITATIONS, Verified 11/19/16 10:56 PASSES OUT Penicillins Allergy TONGUE Verified 11/19/16 10:56 Swelling phenytoin sodium Allergy diarrhea/vo Verified 11/19/16 10:56 [From Dilantin] miting phenytoin sodium extended Allergy Verified 11/19/16 10:56 [From Dilantin] theophylline [Theophylline] Allergy diarrhea,SE Verified 11/19/16 10:56 IZURES - Home Medications Home Medications: Ambulatory Orders Atorvastatin Ca [Lipitor] 10 mg PO HS 10/20/15 Biotin [Hard Nails] 5,000 mcg PO DAILY 10/20/15 Budesonide/Formeterol Fumarate [SYMBICORT 160/4.5mcg -] 2 inh PO BID 10/20/15 Carbamazepine Xr [Tegretol XR -] 300 mg PO BID 10/20/15 Folic Acid 1 mg PO DAILY 10/20/15 Levothyroxine [Synthroid -] 50 mcg PO UTDICT 10/20/15 Linaclotide [Linzess] 145 mcg PO UTDICT 10/20/15 Methotrexate [Mexate -] 12.5 mg PO WEEKLY 10/20/15 Montelukast Na [Singulair -] 10 mg PO DAILY 10/20/15 [place]-3 Fatty Acids [Exchange-3] 3 tab PO DAILY 10/20/15 Sertraline HCl [Zoloft -] 100 mg PO DAILY 10/20/15 Topiramate [Trokendi Xr] 100 mg PO BID 10/20/15 Umeclidinium [place] [Incruse Ellipta] 62.5 mcg IH DAILY 10/20/15 Insulin Sliding Scale [Novolog Vial Sliding Scale -] See Protocol SQ AC #1 units 05/23/16 Glipizide 10 mg PO BID 08/13/16 Hydroxychloroquine Sulfate [Plaquenil] 200 mg PO BID 08/13/16 Insulin Glargine,Hum.rec.anlog [Lantus (10mL VIAL) -] 22 units SQ DAILY Losartan Potassium [Cozaar -] 50 mg PO DAILY 08/13/16 Furosemide [Lasix] 40 mg PO DAILY 10/12/16 Aspirin Coated [Ecotrin -] 81 mg PO DAILY #30 tab 11/09/16 Albuterol Sulfate [Proair Respiclick] 90 mcg IH PRN PRN 11/19/16 Meloxicam [Mobic] 15 mg PO DAILY 11/19/16 Pramipexole Dihydrochloride [Mirapex -] 0.5 mg PO BID 11/19/16 Prednisone 20 mg PO ASDIR 11/19/16 Tiotropium [place] [Spiriva] 1 inh PO DAILY 11/19/16 Famotidine [Pepcid] 20 mg PO BID #60 tablet 11/23/16 Oxycodone HCl/Acetaminophen [Percocet 5-325 mg Tablet] 1 - 2 tab PO Q6H #28 tab MDD 4 11/23/16 Review of Systems - Review of Systems Constitutional: denies: Chills, Fever HENT: reports: Difficult Swallowing (sore throat post intubation) Cardiovascular: denies: Chest Pain, Edema, Palpitations, Shortness of Breath Respiratory: denies: Cough, Hemoptysis, Wheezing Gastrointestinal: reports: Abdominal Pain. denies: Vomiting, Vomiting Blood Neurological: reports: No Symptoms Physical Exam Vital Sings: Vital Signs Temperature 99.1 F 11/24/16 14:15 Pulse Rate 87 11/24/16 14:15 Respiratory Rate 21 11/24/16 14:15 Blood Pressure 120/57 11/24/16 14:15 O2 Sat by Pulse Oximetry (%) 92 L 11/24/16 11:54 Constitutional: Yes: No Distress, Obese Eyes: No: Sclera Icterus HENT: Yes: Atraumatic, Normocephalic Neck: Yes: Supple, Trachea Midline Cardiovascular: Yes: Regular Rate and Rhythm Respiratory: Yes: CTA Bilaterally. No: Wheezes ...Percussion: No: Dullnes ...Clubbing: No Gastrointestinal: Yes: Soft, Tenderness Extremities: No: Calf Tenderness Edema: No Neurological: Yes: Alert, Oriented Labs: CBC, BMP 11/23/16 13:20 11/23/16 13:20 Imaging - Results Chest X-ray: Report Reviewed, Image Reviewed (11/07/16: MARY) Problem List - Problems (1) COPD (chronic obstructive pulmonary disease) Code(s): J44.9 - CHRONIC OBSTRUCTIVE PULMONARY DISEASE, UNSPECIFIED Qualifiers : COPD type: unspecified COPD Qualified Code(s): J44.9 - Chronic obstructive pulmonary disease, unspecified; J44.9 - Chronic obstructive pulmonary disease, unspecified; J44.9 - Chronic obstructive pulmonary disease, unspecified; J44.9 - Chronic obstructive pulmonary disease, unspecified (2) Morbid (severe) obesity due to excess calories Code(s): E66.01 - MORBID (SEVERE) OBESITY DUE TO EXCESS CALORIES (3) Sleep apnea, obstructive Code(s): G47.33 - OBSTRUCTIVE SLEEP APNEA (ADULT) (PEDIATRIC) (4) Type 2 diabetes mellitus Code(s): E11.9 - TYPE 2 DIABETES MELLITUS WITHOUT COMPLICATIONS Qualifiers: Diabetes mellitus complication status: with kidney complications Diabetes mellitus complication detail: with chronic kidney disease Diabetes mellitus termite inspector insulin use: without termite inspector use Chronic kidney disease stage: unspecified stage Qualified Code(s): E11.22 - Type 2 diabetes mellitus with diabetic chronic kidney disease; E11.22 - Type 2 diabetes mellitus with diabetic chronic kidney disease; E11.22 - Type 2 diabetes mellitus with diabetic chronic kidney disease; E11.22 - Type 2 diabetes mellitus with diabetic chronic kidney disease; E11.22 - Type 2 diabetes mellitus with diabetic chronic kidney disease; N18.1 - Chronic kidney disease, stage 1; N18.1 - Chronic kidney disease, stage 1; Z79.4 - senior care ( current) use of insulin; Z79.4 - marine oil terminal superintendent (current) use of insulin; Z79.4 - marine oil terminal superintendent (current) use of insulin; Z79.4 - marine oil terminal superintendent (current) use of insulin Assessment/Plan 61 y/o woman 1 day post Gastric Lap Band surgery. COPD-stable DANY-stable with CPAP Morbid Obesity Plan: Continue current medications Prednisone 10 mg daily-with further tapering as an outpt. CPAP at night Discharge planning per Pulmonary follow-up schedued as outpt next week. Thank you for referring this patient for consultation.
[2016-11-24] MEDS: SODIUM CHLORIDE 1,000 ML IV SCH (17:01)
--- NOTE | 2016-11-24 19:17 | PN ---
Progress Note (short form) - Note Progress Note: POD 1 + Abdominal pain requiring IV pain medication + wheezing Tolerating clears Vital Signs Period Temp Pulse Resp BP Sys/Oconnell Pulse Ox Last 24 Hr 98.3 F-99.4 F 82-104 20-21 104-154/51-68 92-98 Abd soft, dressings in place UGI- no obstruction/leak, band in good position Admitted for pain control and wheezing
--- NOTE | 2016-11-24 21:25 | HP ---
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 No: Alzheimer's Pulmonary: Yes: Asthma ...LMP: 03/18/01 Infectious Disease: Yes: AIDS Rheumatology: Yes: Lupus Endocrine: Yes: Diabetes Mellitus - Past Surgical History Past Surgical History: Yes: Cataract Removal, Cholecystectomy, Joint Replacement (Right total hip replacement), Tonsillectomy - Smoking History Smoking history: Former smoker Have you smoked in the past 12 months: No Aproximately how many cigarettes per day: 0 If you are a former smoker, when did you quit?: 15YRS AGO - Alcohol/Substance Use Hx Alcohol Use: No History of Substance Use: reports: None - Social History ADL: Independent History of Recent Travel: No Home Medications - Allergies Allergies/Adverse Reactions: Allergies Allergy/AdvReac Type Severity Reaction Status Date / Time gabapentin [From Neurontin] Allergy PALPITATIONS, Verified 11/19/16 10:56 PASSES OUT Penicillins Allergy TONGUE Verified 11/19/16 10:56 Swelling phenytoin sodium Allergy diarrhea/vo Verified 11/19/16 10:56 [From Dilantin] miting phenytoin sodium extended Allergy Verified 11/19/16 10:56 [From Dilantin] theophylline [Theophylline] Allergy diarrhea,SE Verified 11/19/16 10:56 IZURES - Home Medications Home Medications: Ambulatory Orders Atorvastatin Ca [Lipitor] 10 mg PO HS 10/20/15 Biotin [Hard Nails] 5,000 mcg PO DAILY 10/20/15 Budesonide/Formeterol Fumarate [SYMBICORT 160/4.5mcg -] 2 inh PO BID 10/20/15 Carbamazepine Xr [Tegretol XR -] 300 mg PO BID 10/20/15 Folic Acid 1 mg PO DAILY 10/20/15 Levothyroxine [Synthroid -] 50 mcg PO UTDICT 10/20/15 Linaclotide [Linzess] 145 mcg PO UTDICT 10/20/15 Methotrexate [Mexate -] 12.5 mg PO WEEKLY 10/20/15 Montelukast Na [Singulair -] 10 mg PO DAILY 10/20/15 [place]-3 Fatty Acids [[place]-3] 3 tab PO DAILY 10/20/15 Sertraline HCl [Zoloft -] 100 mg PO DAILY 10/20/15 Topiramate [Trokendi Xr] 100 mg PO BID 10/20/15 Umeclidinium [place] [Incruse Ellipta] 62.5 mcg IH DAILY 10/20/15 Insulin Sliding Scale [Novolog Vial Sliding Scale -] See Protocol SQ AC #1 units 05/23/16 Glipizide 10 mg PO BID 08/13/16 Hydroxychloroquine Sulfate [Plaquenil] 200 mg PO BID 08/13/16 Insulin Glargine,Hum.rec.anlog [Lantus (10mL VIAL) -] 22 units SQ DAILY Losartan Potassium [Cozaar -] 50 mg PO DAILY 08/13/16 Furosemide [Lasix] 40 mg PO DAILY 10/12/16 Aspirin Coated [Ecotrin -] 81 mg PO DAILY #30 tab 11/09/16 Albuterol Sulfate [Proair Respiclick] 90 mcg IH PRN PRN 11/19/16 Meloxicam [Mobic] 15 mg PO DAILY 11/19/16 Pramipexole Dihydrochloride [Mirapex -] 0.5 mg PO BID 11/19/16 Prednisone 20 mg PO ASDIR 11/19/16 Tiotropium [place] [Spiriva] 1 inh PO DAILY 11/19/16 Famotidine [Pepcid] 20 mg PO BID #60 tablet 11/23/16 Oxycodone HCl/Acetaminophen [Percocet 5-325 mg Tablet] 1 - 2 tab PO Q6H #28 tab MDD 4 11/23/16 Family Disease History - Family Disease History Family History: Denies Review of Systems - Review of Systems Constitutional: denies: Chills, Fever HENT: reports: No Symptoms Neck: reports: No Symptoms Cardiovascular: denies: Chest Pain Respiratory: reports: SOB on Exertion Gastrointestinal: denies: Abdominal Pain Neurological: denies: Change in LOC Physical Examination Vital Signs: Vital Signs Temperature 99.1 F 11/24/16 14:15 Pulse Rate 87 11/24/16 14:15 Respiratory Rate 21 11/24/16 14:15 Blood Pressure 120/57 11/24/16 14:15 O2 Sat by Pulse Oximetry (%) 92 L 11/24/16 11:54 Constitutional: Yes: Calm HENT: Yes: WNL Neck: Yes: Supple Cardiovascular: Yes: Regular Rate and Rhythm Respiratory: Yes: Diminished Gastrointestinal: Yes: Soft, Abdomen, Obese Wound/Incision: Yes: Dressing Dry and Intact Neurological: Yes: Alert, Oriented Labs: CBC, BMP 11/23/16 13:20 11/23/16 13:20 Problem List - Problems (1) COPD (chronic obstructive pulmonary disease) Code(s): J44.9 - CHRONIC OBSTRUCTIVE PULMONARY DISEASE, UNSPECIFIED Qualifiers : COPD type: unspecified COPD Qualified Code(s): J44.9 - Chronic obstructive pulmonary disease, unspecified; J44.9 - Chronic obstructive pulmonary disease, unspecified; J44.9 - Chronic obstructive pulmonary disease, unspecified; J44.9 - Chronic obstructive pulmonary disease, unspecified (2) Morbid (severe) obesity due to excess calories Code(s): E66.01 - MORBID (SEVERE) OBESITY DUE TO EXCESS CALORIES (3) Morbid obesity Code(s): E66.01 - MORBID (SEVERE) OBESITY DUE TO EXCESS CALORIES (4) Sleep apnea, obstructive Code(s): G47.33 - OBSTRUCTIVE SLEEP APNEA (ADULT) (PEDIATRIC) (5) Type 2 diabetes mellitus Code(s): E11.9 - TYPE 2 DIABETES MELLITUS WITHOUT COMPLICATIONS Qualifiers: Diabetes mellitus complication status: with kidney complications Diabetes mellitus complication detail: with chronic kidney disease Diabetes mellitus penitentiary insulin use: without superintendent terminal use Chronic kidney disease stage: unspecified stage Qualified Code(s): E11.22 - Type 2 diabetes mellitus with diabetic chronic kidney disease; E11.22 - Type 2 diabetes mellitus with diabetic chronic kidney disease; E11.22 - Type 2 diabetes mellitus with diabetic chronic kidney disease; E11.22 - Type 2 diabetes mellitus with diabetic chronic kidney disease; E11.22 - Type 2 diabetes mellitus with diabetic chronic kidney disease; N18.1 - Chronic kidney disease, stage 1; N18.1 - Chronic kidney disease, stage 1; Z79.4 - half-way ( current) use of insulin; Z79.4 - termite control representative (current) use of insulin; Z79.4 - half-way (current) use of insulin; Z79.4 - termite control representative (current) use of insulin (6) Hypertension Code(s): I10 - ESSENTIAL (PRIMARY) HYPERTENSION Qualifiers: Hypertension type: essential hypertension Qualified Code(s): I10 - Essential (primary) hypertension; I10 - Essential (primary) hypertension; I10 - Essential (primary) hypertension Assessment/Plan 61 female with morbid obesity S/P Gastric band placement Admitted for pain control and wheezing
[2016-11-24] MEDS: MONTELUKAST NA 10 MG TABLET PO SCH (21:29)
[2016-11-25] MEDS: INSULIN SLIDING SCALE (NOVOLOG) 1 VIAL SQ SCH ×2 (06:13→12:25)
[2016-11-25] MEDS: LEVOTHYROXINE NA 50 MCG TABLET (FP) PO SCH (06:14)
[2016-11-25 09:18] VITALS: BP 109/49; PULSE 97; TEMP 98.7
[2016-11-25] MEDS: FAMOTIDINE 20 MG/50 ML IVPB 50 ML IVPB SCH (09:25)
[2016-11-25] MEDS ORDERED: PT OWN MED DRAWER 7, Y5N ONE (09:28)
[2016-11-25] MEDS: SERTRALINE HCL 50 MG TABLET (FP) PO SCH (09:29)
[2016-11-25] MEDS: FUROSEMIDE 40 MG TABLET (FP) PO SCH (09:29)
[2016-11-25] MEDS: TOPIRAMATE 25 MG TABLET (FP) PO SCH (09:29)
[2016-11-25] MEDS: LOSARTAN POTASSIUM 50 MG TABLET (FP) PO SCH (09:29)
[2016-11-25] MEDS: carBAMazepine XR 200 MG TAB.ER.12H PO SCH (09:30)
[2016-11-25] MEDS: PRAMIPEXOLE DIHYDROCHLORIDE 0.5 MG TABLET PO SCH (09:31)
[2016-11-25] MEDS: BUDESONIDE/FORMETEROL FUMARATE 160/4.5 mcg INHALER IH SCH (09:31)
[2016-11-25] MEDS ORDERED: predniSONE 10 MG TABLET (UD) PO SCH (10:00)
[2016-11-25] MEDS: oxyCODONE HCL 5 MG TABLET PO PRN (12:27)
--- NOTE | 2016-11-25 13:40 | PATH ---
Surgical Pathology Report Patient Name: PREM GILES Med. Rec. #: [id number] /Age/Gender: 1955 (Age: 61) / F Account: [id number] Location: [address] [place] [address] Taken: 11/23/2016 Received: 11/23/2016 Reported: 11/25/2016 Physicians: Pipo Rojas M.D. Specimen(s) Received WEDGE LIVER BIOPSY Clinical History Morbid obesity Final Diagnosis LIVER, WEDGE BIOPSY: LIVER PARENCHYMA WITH MILD STEATOSIS (~10%). NO INCREASE IN IRON SHOWN ON IRON STAIN. NO FIBROSIS SEEN ON RETICULIN AND TRICHROME SPECIAL STAINS. Electronically Signed Lu Tafoya M.D. Gross Description Received in formalin labeled "wedge liver biopsy," is a 2.5 x 1.8 x 0.7 cm pink hays, irregular portion of soft tissue, consistent with a portion of liver. The specimen is serially sectioned and entirely submitted in one cassette. /11/23/201611/23/2016
== END 2016-11-25 14:05 | disposition home or self-care (01) | DRG 621 ==
LOC: JASU-SURG 07:22 → J6W 16:48 → J6S 16:51 → JASU-SURG 11-24 19:15
PROVIDERS: ADMIT Surgery; ATTEND Surgery
PROC: 0DV64CZ Restriction of Stomach with Extraluminal Device, Percutaneous Endoscopic Approach (ICD-10-PCS; principal; 2016-11-23 09:00)
PROC: 0FB24ZX Excision of Left Lobe Liver, Percutaneous Endoscopic Approach, Diagnostic (ICD-10-PCS; 2016-11-23 09:00)
DX: E66.01 Morbid (severe) obesity due to excess calories (principal); Z68.42 Body mass index [BMI] 45.0-49.9, adult; Z87.891 Personal history of nicotine dependence; J44.9 Chronic obstructive pulmonary disease, unspecified; G47.33 Obstructive sleep apnea (adult) (pediatric); I10 Essential (primary) hypertension; E11.9 Type 2 diabetes mellitus without complications; R16.0 Hepatomegaly, not elsewhere classified; K76.0 Fatty (change of) liver, not elsewhere classified
CPT/HCPCS: 36415; 74241-TC; 80048; 85027; 88307-TC; 94760

== ENCOUNTER 2017-02-11 11:54 | Observation (INO) | payer OTHER ==
--- NOTE | 2017-02-11 12:59 | PDOC ---
History of Present Illness - History of Present Illness Initial Comments: 02/11/17 13:33 The patient is a 61 year old female with a significant past medical history of COPD (on 2L of O2 at home), CHF, diabetes, hypertension, hyperlipidemia, and hypothyroidism who presents to the ED with a couple of weeks of progressive shortness of breath and constant chest tightness. The patient states she has become increasingly more short of breath after coughing and with walking. She reports having a constant cough at baseline, however, reports the cough has been worse since the progression of her current symptoms. She reports a chest tightness which is constant, radiating to her back, and 8/10 in severity at this time. She states she alternated 10mg and 5mg of prednisone every other day and reports "this happens whenever the pelota maker decreases the prednisone". The patient states she had a lapband surgery in November [address] Hyde did not take her off of the prednisone. She states she has since lost about 30 lbs. She states she has been hospitalized in the past for similar symptoms and "they increase my prednisone". Social hx: The patient is a former smoker. Surgical hx: lapband (11/2016), Cholecystectomy, orthopedic right hip replacement, bilaterally knee arthroscopy, bilateral bunionectomy. PCP: Dr. Hernandez Air Twister Winder: Dr. Hyde <Cristy Colvin - Last Filed: 02/11/17 13:55> <Brendan Forrest - Last Filed: 02/11/17 17:30> - General Chief Complaint: Shortness of Breath Stated Complaint: SOB Time Seen by Provider: 02/11/17 12:59 Past History <Cristy Colvin - Last Filed: 02/11/17 13:55> - Past Medical History Anemia: No Asthma: Yes Cancer: No Cardiac Disorders: Yes (CAD) CVA: No COPD: Yes (O2 2L CONTINUOUSLY) CHF: No Dementia: No Diabetes: Yes GI Disorders: Yes (REFLUX) Disorders: No HTN: Yes Hypercholesterolemia: Yes Liver Disease: No Seizures: Yes (NO RECENT [id number]) Thyroid Disease: Yes (HYPO) - Surgical History Abdominal Surgery: No Appendectomy: No Cardiac Surgery: No Cholecystectomy: Yes GI Surgery: Yes (LAP sx 11/23/16) Lung Surgery: No Neurologic Surgery: No Orthopedic Surgery: Yes (KIMO HIP REPLACEMENT) - Immunization History Immunization Up to Date: Yes - Suicide/Smoking/Psychosocial Hx Smoking Status: Yes Smoking History: Former smoker Have you smoked in the past 12 months: No Number of Cigarettes Smoked Daily: 0 If you are a former smoker, when did you quit?: 1999 Information on smoking cessation initiated: No Hx Alcohol Use: No Drug/Substance Use Hx: No Substance Use Type: None Hx Substance Use Treatment: No <Brendan Forrest - Last Filed: 02/11/17 17:30> - Past Medical History Allergies/Adverse Reactions: Allergies Allergy/AdvReac Type Severity Reaction Status Date / Time gabapentin [From Neurontin] Allergy PALPITATIONS, Verified 02/11/17 12:08 PASSES OUT Penicillins Allergy TONGUE Verified 02/11/17 12:08 Swelling phenytoin sodium Allergy diarrhea/vo Verified 02/11/17 12:08 [From Dilantin] miting phenytoin sodium extended Allergy Verified 02/11/17 12:08 [From Dilantin] theophylline [Theophylline] Allergy diarrhea,SE Verified 02/11/17 12:08 IZURES Home Medications: Ambulatory Orders Atorvastatin Ca [Lipitor] 10 mg PO HS 10/20/15 Biotin [Hard Nails] 5,000 mcg PO DAILY 10/20/15 Carbamazepine Xr [Tegretol XR -] 300 mg PO BID 10/20/15 Folic Acid 1 mg PO DAILY 10/20/15 Levothyroxine [Synthroid -] 50 mcg PO UTDICT 10/20/15 Methotrexate [Mexate -] 12.5 mg PO WEEKLY 10/20/15 Montelukast Na [Singulair -] 10 mg PO DAILY 10/20/15 [place]-3 Fatty Acids [[place]-3] 3 tab PO DAILY 10/20/15 Sertraline HCl [Zoloft -] 100 mg PO DAILY 10/20/15 Topiramate [Trokendi Xr] 100 mg PO BID 10/20/15 Umeclidinium [place] [Incruse Ellipta] 62.5 mcg IH DAILY 10/20/15 Glipizide 10 mg PO BID 08/13/16 Hydroxychloroquine Sulfate [Plaquenil] 200 mg PO BID 08/13/16 Insulin Glargine,Hum.rec.anlog [Lantus (10mL VIAL) -] 22 units SQ DAILY Albuterol Sulfate [Proair Respiclick] 90 mcg IH PRN PRN 11/19/16 Pramipexole Dihydrochloride [Mirapex -] 0.5 mg PO BID 11/19/16 Prednisone 20 mg PO ASDIR 11/19/16 Review of Systems - Review of Systems Able to Perform ROS?: Yes Comments:: 02/11/17 13:41 ROS: A complete review of 10 out of 10 review of systems is taken and is negative apart from what is previously mentioned below and in the HPI. Constitutional: No recent illness; no fever ENT: No sore throat Cardiovascular: (+) Chest tigthness radiating to back. No palpitations; Pulmonary: (+) cough and difficulty breathing. Gastrointestinal: No nausea; no vomiting; no diarrhea Genitourinary: No urinary problems; no hematuria Skin: No rash Lymph system: No swollen glands Musculoskeletal: No joint swelling Neurological: No weakness; oo numbness; No Headache; no vertigo; no lightheadedness Psychiatric:No anxiety; no depression <Cristy Colvin - Last Filed: 02/11/17 13:55> *Physical Exam - Vital Signs Last Vital Signs Temp Pulse Resp BP Pulse Ox 98.8 F 74 18 146/76 98 02/11/17 12:04 02/11/17 12:04 02/11/17 12:04 02/11/17 12:04 02/11/17 12:04 - Physical Exam Comments: 02/11/17 13:42 Vitals: Triage vital signs reviewed General Appearance: (+) in mild distress, Obese. Head: Atraumatic Eyes: Pupils equal reactive round, extraocular movement intact Ears: TM's normal bilaterally Nose: Nares patent bilaterally; no nasal congestion Throat: Posterior oropharynx without erythema, mucous membranes moist Neck: Supple; No nuchal rigidity Chest Wall: Nontender Cardiac: Regular rate and rhythm, no murmurs, no rubs, no gallops Lungs: (+) conversational dyspnea on O2, decreased breath sounds in all lung griggs. Abdomen: Soft, nondistended, normal bowel sounds, nontender to palpation Genitourinary: Rectal: Exam deferred Extremities: Full range of motion to all extremities, no cyanosis, clubbing, or edema Skin: Warm and dry, no rashes or lesions, no rash, no petechiae Neuro: AOX3; Cranial Nerves 2-12 grossly intact, Strength intact to all extremities, Sensation intact to all extremities, gait normal Psych: Normal mood, normal affect <Cristy Colvin - Last Filed: 02/11/17 13:55> - Vital Signs Last Vital Signs Temp Pulse Resp BP Pulse Ox 98.8 F 74 18 146/76 98 02/11/17 12:04 02/11/17 12:04 02/11/17 12:04 02/11/17 12:04 02/11/17 12:04 <Brendan Forrest - Last Filed: 02/11/17 17:30> ED Treatment Course - LABORATORY CBC & Chemistry Diagram: 02/11/17 14:01 02/11/17 15:01 <Brendan Forrest - Last Filed: 02/11/17 17:30> Medical Decision Making - Medical Decision Making 02/11/17 13:55 Pt is a 61 yo F with COPD who presents with progressive dyspnea, increased cough , and chest tightness for a couple of weeks. Plan: Labs, CXR, EKG, reassess <Cristy Colvin - Last Filed: 02/11/17 13:55> - Medical Decision Making Patient does not feel significantly better after DuoNeb's and steroids. At this point we'll observe for COPD exacerbation. Additional's nebulizer treatments ordered. Also troponin added onto patient's blood work Hospitalist will follow-up Findings, the need for follow-up, strict return instructions discussed with patient. EKG performed at 1353 demonstrates rate of 70, rhythm of sinus rhythm, axis equal to left axis deviation. Additional findings include: Incomplete right bundle-branch block no ST elevations no T-wave inversions <Brendan Forrest - Last Filed: 02/11/17 17:30> *DC/Admit/Observation/Transfer - Attestations Scribe Attestion: 02/11/17 13:45 Documentation prepared by Cristy Colvin, acting as medical intern for Brendan Forrest MD, <Cristy Colvin - Last Filed: 02/11/17 13:55> - Discharge Dispostion Admit: Yes <Brendan Forrest - Last Filed: 02/11/17 17:30> Diagnosis at time of Disposition: COPD (chronic obstructive pulmonary disease) Qualifiers: COPD type: unspecified COPD Qualified Code(s): J44.9 - Chronic obstructive pulmonary disease, unspecified
[2017-02-11] MEDS ORDERED: ALBUTEROL SO4 0.083% IH SOL 2.5 MG/3 ML VIAL.NEB. NEB ONE ×2 (13:25→14:06)
[2017-02-11] MEDS ORDERED: methylPREDNISolone NA SUCC 125 MG/2 ML VIAL IVPB ONE (13:25)
[2017-02-11] MEDS ORDERED: methylPREDNISolone NA SUCC 125 MG/2 ML VIAL ONE (14:06)
[2017-02-11 15:13] LABS: HEMATOCRIT 39.2 % (32.4-45.2); HEMOGLOBIN 12.6 GM/dL (10.7-15.3); MCH 29.1 pg (25.7-33.7); MCHC 32.2 g/dl (32.0-36.0); MEAN CELL VOLUME 90.4 fl (80-96); MEAN PLT VOLUME 8.3 fl (7.5-11.1); PLATELET COUNT 357 K/MM3 (134-434); RBC 4.33 M/mm3 (3.60-5.2); RDW 16.5 % (11.6-15.6); WHITE BLOOD COUNT 9.4 K/mm3 (4.0-10.0)
[2017-02-11 15:41] LABS: ALBUMIN 3.6 g/dl (3.4-5.0); ALK PHOS 139 U/L (45-117); ANION GAP 11 (8-16); BILIRUBIN,TOTAL 0.2 mg/dL (0.2-1.0); BLOOD UREA NITROGEN 18 mg/dL (7-18); CALCIUM 9.2 mg/dL (8.5-10.1); CHLORIDE 106 mmol/L (98-107); CO2 25 mmol/L (21-32); GLUCOSE,RANDOM 96 mg/dL (74-106); POTASSIUM 3.8 mmol/L (3.5-5.1); SGOT/AST 26 U/L (15-37); SGPT/ALT 31 U/L (12-78); SODIUM 142 mmol/L (136-145); TOT PROT 7.4 g/dl (6.4-8.2)
[2017-02-11 15:45] LABS: PLATELET ESTIMATE ADEQUATE; SMUDGE CELLS 2
--- NOTE | 2017-02-11 17:45 | HP ---
CHIEF COMPLAINT: " SOB and dry cough with substernal chest pain" PCP: Dr. Hernandez Ethical Hacker: Dr. Stone Vessel Captain: Dr. Laboy HISTORY OF PRESENT ILLNESS: Patient is a 61 year old female came in to the ED with the chief complaint of SOB and dry cough with substernal Chest pain x 3 weeks. As per the patient, she started having dry cough associated with SOB. She also reports to have sweating and feeling feverish but didn't measure the temperature. Initially thought it was cold. No sick contacts. Her symptoms started getting worse. Had been taking predinisone 5mg and 10mg alternatively but didn't get better. Patient also mentions she had an appointment with Dr. Stone last week but had to cancel because of her illness. She also has been complaining of chest pain, located centrally, radiating towards her back, constant, 10/10, worse with coughing. Not associated with nausea or vomiting. Denies palpitations, abdominal pain, headache, loc, trauma. Bowel/Bladder habit normal. Sleep/Appetite decreased since her illness. Had gastric band placement on 11/24/[address] Rojas and she lost 30 lbs since then. ER course was notable for: (1) Afebrile, hemodynamically stable, Troponin x 1 negative (2) EKG: no significant ST or T wave changes. (3) Solumedrol 125mg, Albuterol. Recent Travel: None PAST MEDICAL HISTORY: COPD on home oxygen, CAD s/p cath no stent, HTN, HLD, DM , seizure, SLE, hypothyroid, DANY on CPAP PAST SURGICAL HISTORY: Cath twice (last one in [facility]) Social History: Smoking: Former smoker quit 2004, smoked for 20-25 yrs Alcohol: Denies Drugs: Denies Family History: Non contributory Allergies gabapentin [From Neurontin] Allergy (Verified 02/11/17 12:08) PALPITATIONS, PASSES OUT Penicillins Allergy (Verified 02/11/17 12:08) TONGUE Swelling phenytoin sodium [From Dilantin] Allergy (Verified 02/11/17 12:08) diarrhea/vomiting phenytoin sodium extended [From Dilantin] Allergy (Verified 02/11/17 12:08) theophylline [Theophylline] Allergy (Verified 02/11/17 12:08) diarrhea,SEIZURES HOME MEDICATIONS: Home Medications Medication Instructions Recorded Atorvastatin Ca [Lipitor] 10 mg PO HS 10/20/15 Biotin [Hard Nails] 5,000 mcg PO DAILY 10/20/15 Carbamazepine Xr [Tegretol XR -] 300 mg PO BID 10/20/15 Folic Acid 1 mg PO DAILY 10/20/15 Levothyroxine [Synthroid -] 50 mcg PO UTDICT 10/20/15 Methotrexate [Mexate -] 12.5 mg PO WEEKLY 10/20/15 Montelukast Na [Singulair -] 10 mg PO DAILY 10/20/15 Baker-3 Fatty Acids [Baker-3] 3 tab PO DAILY 10/20/15 Sertraline HCl [Zoloft -] 100 mg PO DAILY 10/20/15 Topiramate [Trokendi Xr] 100 mg PO BID 10/20/15 Umeclidinium [place] [Incruse 62.5 mcg IH DAILY 10/20/15 Ellipta] Glipizide 10 mg PO BID 08/13/16 Hydroxychloroquine Sulfate 200 mg PO BID 08/13/16 [Plaquenil] Insulin Glargine,Hum.rec.anlog 22 units SQ DAILY 08/13/16 [Lantus (10mL VIAL) -] Albuterol Sulfate [Proair 90 mcg IH PRN PRN 11/19/16 Respiclick] Pramipexole Dihydrochloride 0.5 mg PO BID 11/19/16 [Mirapex -] Prednisone 20 mg PO ASDIR 11/19/16 REVIEW OF SYSTEMS CONSTITUTIONAL: Absent: fever, chills, diaphoresis, generalized weakness, malaise, loss of appetite, weight change HEENT: Absent: rhinorrhea, nasal congestion, throat pain, throat swelling, difficulty swallowing, mouth swelling, ear pain, eye pain, visual changes CARDIOVASCULAR: Present: chest pain Absent:syncope, palpitations, irregular heart rate, lightheadedness, peripheral edema RESPIRATORY: Present: shortness of breath, wheezing, Absent: cough, , dyspnea with exertion, orthopnea, stridor, hemoptysis GASTROINTESTINAL: Absent: abdominal pain, abdominal distension, nausea, vomiting, diarrhea, constipation, melena, hematochezia GENITOURINARY: Absent: dysuria, frequency, urgency, hesitancy, hematuria, flank pain, genital pain MUSCULOSKELETAL: Absent: myalgia, arthralgia, joint swelling, back pain, neck pain SKIN: Absent: rash, itching, pallor HEMATOLOGIC/IMMUNOLOGIC: Absent: easy bleeding, easy bruising, lymphadenopathy, frequent infections ENDOCRINE: Absent: unexplained weight gain, unexplained weight loss, heat intolerance, cold intolerance NEUROLOGIC: Absent: headache, focal weakness or paresthesias, dizziness, unsteady gait, seizure, mental status changes, bladder or bowel incontinence PSYCHIATRIC: Absent: anxiety, depression, suicidal or homicidal ideation, hallucinations. PHYSICAL EXAMINATION Vital Signs - 24 hr 02/11/17 02/11/17 02/11/17 12:04 15:26 17:10 Temperature 98.8 F Pulse Rate 74 Pulse Rate [ 87 Radial] Respiratory 18 24 Rate Blood Pressure 146/76 Blood Pressure 141/69 [Left Arm] O2 Sat by Pulse 98 100 98 Oximetry (%) GENERAL: Patient is comfortably sitting in bed, Awake, alert, and fully oriented , in mild respiratory distress,, nasal canula in place. HEAD: Normal with no signs of trauma. EYES: EOM intact, no pallor or icterus. EARS, NOSE, THROAT: Ears normal. Moist mucous membranes. NECK: Supple. LUNGS: B/L Breath sounds equal, decreased breath sounds b/l, occasional wheeze on the Right> Left, and no crackles. HEART: Regular rate and rhythm, normal S1 and S2 with soft systolic murmur. ABDOMEN: Soft, nontender, not distended, normoactive bowel sounds, no guarding, no rebound, no masses. No hepatomegaly or splenomegaly. MUSCULOSKELETAL: Normal range of motion at all joints. No bony deformities or tenderness. No CVA tenderness. UPPER EXTREMITIES: 2+ pulses, warm, well-perfused. No cyanosis. No clubbing. No peripheral edema. LOWER EXTREMITIES: 2+ pulses, warm, well-perfused. No calf tenderness. B/l trace edema. NEUROLOGICAL: No facial droop, Normal speech. Gait not observed. PSYCHIATRIC: Cooperative. Good eye contact. Appropriate mood and affect. SKIN: Warm, dry, normal turgor, no rashes or lesions noted, normal capillary refill. Laboratory Results - last 24 hr 02/11/17 02/11/17 14:01 15:01 WBC 9.4 D RBC 4.33 Hgb 12.6 D Hct 39.2 D MCV 90.4 MCH 29.1 MCHC 32.2 RDW 16.5 H Plt Count 357 MPV 8.3 Total Counted 100 Neutrophils % No Result Required. Neutrophils % (Manual) 34.0 L Lymphocytes % No Result Required. Lymphocytes % (Manual) 55.0 H Monocytes % (Manual) 5 Eosinophils % (Manual) 2.0 Smudge Cells 2 Platelet Estimate Adequate Platelet Comment No clumping noted Sodium 142 Potassium 3.8 Chloride 106 Carbon Dioxide 25 Anion Gap 11 BUN 18 Creatinine 1.0 Creat Clearance w eGFR 56.56 Random Glucose 96 D Calcium 9.2 Total Bilirubin 0.2 AST 26 D ALT 31 D Alkaline Phosphatase 139 H Total Protein 7.4 Albumin 3.6 ASSESSMENT/PLAN: Patient is a 61 year old woman with significant Past Medical History of COPD on home oxygen, CAD s/p cath no stent, HTN, HLD, DM, seizure, SLE, hypothyroid , DANY on CPAP presented to the ED with the chief complaint of SOB, cough, chest pain. # Atypical chest pain likely due to bronchitis Since patient has h/o DM, HTN, HLD and had recent cath without stent (08/16/16 ) in [facility] , would like to r/o ACS, however low suspicion for ACS. Patient has had persistent cough, is on tapering dose of steroid, hence chest pain could be due to bronchitis Presented with midsternal chest pain On arrival, afebrile, hemodynamically stable, EKG no change, Troponin x 1 negative Admitted in Tele/Obs Will do next troponin----> @ midnight Continuous cardiac monitoring # COPD exacerbation (on home oxygen) On steroid tapering dose as outpatient, on 10mg/5mg of Prednisone. Will continue IV Solumedrol 60mg BID Continue oxygen PRN No antibiotics give at this time, CXR no consolidation, no crackles. Albuterol PRN, Symbicort BID, Spirva Singulair 10mg PO Lizzy Hyde consult requested # CAD s/p cath no stent 07/09/16 stress test: Small and mild reversible anterior perfusion defect; EF 79 % Continue Aspirin 81mg PO Daily # Hypertension- Stable Continue Losartan 50 mg PO daily # Hyperlipidemia Continue Lipitor 10 mg PO HS # Diabetes Mellitus A1c pending Levemir 18 U sq (pt reports she takes 18 U only) ISS Finger stick glucose monitoring Watch for hypoglycemic episodes # SLE Continue Hydroxychloroquine 200 mg po BID Hold Methotrexate(takes 12.5 mg of Methotrexate every Tuesday) Continue folic acid 2 mg PO daily # Seizure: no seizure activity at this time Continue Carbazemipine 300mg PO BID # Hypothyroidism Continue Synthroid 50 mcg po daily # DANY on CPAP Continue CPAP (pts own) # Migraines Topiramate 100 mg PO BID # Depression Continue Zoloft 100 mg PO Daily # GERD On Protonix 40mg PO Daily # Morbid Obesity s/p gastric bypass # FEN Not on IV fluids Electrolytes wnl, to be repeated tomorrow Diabetic diet # Prophylaxis For DVT: On SCD's For GI: On Protonix 40mg PO Daily. # Medications: Confirmed with the patient. # Code Status: Full Code # Dispo: Admitted in Tele/Obs. Duration of stay unknown. Illness, Investigation and Plan of care explained to the patient. She verbalized understanding. Case discussed with Dr. Do. Visit type - Emergency Visit Emergency Visit: Yes ED Registration Date: 02/11/17 Care time: The patient presented to the Emergency Department on the above date and was hospitalized for further evaluation of their emergent condition. - New Patient This patient is new to me today: Yes Date on this admission: 02/11/17 - Critical Care Critical Care patient: No
--- NOTE | 2017-02-11 18:17 | PN ---
Teaching Attending Note Name of Resident: Darby Addison ATTENDING PHYSICIAN STATEMENT I saw and evaluated the patient. I reviewed the resident's note and discussed the case with the resident. I agree with the resident's findings and plan as documented. SUBJECTIVE:61yo F with PMH DANY on cpap, SLE, COPD on 2L NC, morbid obesity s/p gastric bypass, CAD s/p PCI, hypothyroid and dyslipidemia presented to the ER with SOB on exertion for the past 3 weeks. progressively worsening. assoc iwth non productive cough. for the past few days assoc CP but worse on coughing. states she has been on steroids for the past year and recently been alternating pred 5 and 10mg but always feels worse on the days she takes only 5mg. had appt with senior contract specialist last week but missed appt because was too sick to go. dneis fever, chills, N/V/C/D or JI has lost 30 lbs since gastic bypass 12/2016 OBJECTIVE: Last Vital Signs Temp Pulse Resp BP Pulse Ox 98.8 F 87 24 141/69 98 02/11/17 12:04 02/11/17 17:10 02/11/17 17:10 02/11/17 17:10 02/11/17 17:10 General NAD CV S1 S2 RRR no murmur/rub/gallop +chest wall tenderness Lungs CTA B/L no wheezing/rales/rhonchi Abdomen soft NT/ND obese Extremities non pitting edema ASSESSMENT AND PLAN: 61yo F with PMH DANY on cpap, SLE, COPD on 2L NC, morbid obesity s/p gastric bypass, CAD s/p PCI, hypothyroid and dyslipidemia presented to the ER with SOB on exertion 1. Acute COPD exacerbation- medicine observation. currently saturating 99% on 2L NC. received medrol 125mcg. start medrol 60mg Q12H, nebs prn, singulair, inhalers. pulmonary consulted. supplemental oxygen as needed to maintain spO2 > 90% 2. Atypical CP- more likely pleuritic from cough. continuous cardiac monitoring. trend cardiac enzymes neg x2. 3. hypothyroid- cont LT4 4. DANY- cpap HS 5. Morbid obesity s/p gastric bypass 6. SLE- on mtx and plaquenil 7. DM- cont lantus and iss 8. DVT ppx- EAM
[2017-02-11] MEDS ORDERED: METHOTREXATE 2.5 MG TABLET PO SCH (18:45)
[2017-02-11] MEDS ORDERED: LEVOTHYROXINE NA 50 MCG TABLET (FP) PO SCH (18:45)
[2017-02-11] MEDS ORDERED: INSULIN SLIDING SCALE (NOVOLOG) 1 VIAL SQ SCH (22:00)
[2017-02-11] MEDS ORDERED: ATORVASTATIN CA 10 MG TABLET (FP) PO SCH (22:00)
[2017-02-11] MEDS ORDERED: carBAMazepine XR 400 MG TAB.ER.12H PO SCH (22:00)
[2017-02-11 22:45] VITALS: BMI 43.5
[2017-02-11] MEDS: ALBUTEROL SO4 0.083% IH SOL 2.5 MG/3 ML VIAL.NEB. NEB PRN (22:45)
[2017-02-11] MEDS: TIOTROPIUM BROMIDE 18 MCG/INH (DEVICE W/ 5 CAPSULES) IH SCH (22:48)
[2017-02-11] MEDS: HYDROXYCHLOROQUINE SO4 200 MG TABLET (FP) PO SCH (22:49)
[2017-02-11] MEDS: PRAMIPEXOLE DIHYDROCHLORIDE 0.5 MG TABLET PO SCH (22:49)
[2017-02-11] MEDS: BUDESONIDE/FORMETEROL FUMARATE 80/4.5 mcg INHALER IH SCH (22:50)
[2017-02-11] MEDS: methylPREDNISolone NA SUCC 40 MG/1 ML VIAL IVPUSH SCH (22:50)
[2017-02-11] MEDS: TOPIRAMATE 100 MG TABLET PO SCH (22:51)
[2017-02-11] MEDS: INSULIN DETEMIR 100 UNITS/ML MDV SQ SCH (23:00)
[2017-02-12] MEDS: INSULIN SLIDING SCALE (NOVOLOG) 1 VIAL SQ SCH ×4 (06:44→21:29)
[2017-02-12] MEDS: ALBUTEROL SO4 0.083% IH SOL 2.5 MG/3 ML VIAL.NEB. NEB PRN (06:45)
[2017-02-12] MEDS ORDERED: LEVOTHYROXINE NA 50 MCG TABLET (FP) PO SCH (07:00)
[2017-02-12 07:39] LABS: BASO % 0.6 % (0-2.0); HEMATOCRIT 39.2 % (32.4-45.2); HEMOGLOBIN 12.4 GM/dL (10.7-15.3); LYMPH % 18.1 % (8-40); MCH 28.7 pg (25.7-33.7); MCHC 31.7 g/dl (32.0-36.0); MEAN CELL VOLUME 90.7 fl (80-96); MEAN PLT VOLUME 8.3 fl (7.5-11.1); MONO % 2.4 % (3.8-10.2); NEUT % 78.9 % (42.8-82.8); PLATELET COUNT 351 K/MM3 (134-434); RBC 4.32 M/mm3 (3.60-5.2); RDW 16.2 % (11.6-15.6); WHITE BLOOD COUNT 8.3 K/mm3 (4.0-10.0)
[2017-02-12 07:48] LABS: ALBUMIN 3.1 g/dl (3.4-5.0); ANION GAP 8 (8-16); BILIRUBIN,TOTAL 0.3 mg/dL (0.2-1.0); BLOOD UREA NITROGEN 15 mg/dL (7-18); CALCIUM 8.6 mg/dL (8.5-10.1); CHLORIDE 110 mmol/L (98-107); CO2 23 mmol/L (21-32); CREATININE 0.9 mg/dL (0.55-1.02); GLUCOSE,RANDOM 179 mg/dL (74-106); POTASSIUM 4.4 mmol/L (3.5-5.1); SGOT/AST 14 U/L (15-37); SGPT/ALT 28 U/L (12-78); SODIUM 141 mmol/L (136-145)
[2017-02-12 07:57] LABS: ALK PHOS 129 U/L (45-117)
[2017-02-12] MEDS ORDERED: PT OWN MED DRAWER 7, Y5N ONE ×2 (09:22→21:18)
[2017-02-12] MEDS: INSULIN DETEMIR 100 UNITS/ML MDV SQ SCH (09:57)
[2017-02-12] MEDS: PRAMIPEXOLE DIHYDROCHLORIDE 0.5 MG TABLET PO SCH ×2 (09:58→21:28)
[2017-02-12] MEDS: HYDROXYCHLOROQUINE SO4 200 MG TABLET (FP) PO SCH ×2 (09:58→21:28)
[2017-02-12] MEDS: TOPIRAMATE 100 MG TABLET PO SCH ×2 (09:58→21:28)
[2017-02-12] MEDS: methylPREDNISolone NA SUCC 40 MG/1 ML VIAL IVPUSH SCH (09:59)
[2017-02-12] MEDS ORDERED: SERTRALINE HCL 50 MG TABLET (FP) PO SCH (10:00)
[2017-02-12] MEDS ORDERED: OMEGA-3 ACID ETHYL ESTERS (FATTY-ACIDS) 1 GM CAPSULE (FP) PO SCH (10:00)
[2017-02-12] MEDS ORDERED: MONTELUKAST NA 10 MG TABLET PO SCH (10:00)
[2017-02-12] MEDS ORDERED: BIOTIN 5000 MCG PO SCH (10:00)
[2017-02-12] MEDS ORDERED: FOLIC ACID 1 MG TABLET (FP) PO SCH (10:00)
[2017-02-12] MEDS: BUDESONIDE/FORMETEROL FUMARATE 80/4.5 mcg INHALER IH SCH ×2 (10:02→21:32)
[2017-02-12] MEDS: TIOTROPIUM BROMIDE 18 MCG/INH (DEVICE W/ 5 CAPSULES) IH SCH (10:03)
[2017-02-12] MEDS ORDERED: INSULIN (NOVOLOG) ASPART 100 UNITS/ML 10ML VIAL ONE (11:21)
--- NOTE | 2017-02-12 11:30 | PN ---
Progress Note (short form) - Note Progress Note: continues to have non productive cough. able to walk further than yesterday however becomes very dyspnic. constinues to have chest tightness during "coughing fits". denies fever, chills, N/V/C?D Current Medications Generic Name Dose Route Start Last Admin Trade Name Freq PRN Reason Stop Dose Admin Albuterol Sulfate 1 amp 02/11/17 18:40 02/12/17 06:45 Ventolin 0.083% Nebulizer Soln - NEB 1 amp Q4H PRN Administration SHORT OF BREATH/WHEEZING Atorvastatin Calcium 10 mg 02/11/17 22:00 02/11/17 22:48 Lipitor - PO 10 mg HS DONTA Administration Budesonide/Formoterol Fumarate 2 puff 02/11/17 22:00 02/12/17 10:02 Symbicort 80/4.5mcg - IH 2 puff BID DONTA Administration Carbamazepine 300 mg 02/12/17 07:23 02/12/17 10:00 Tegretol Xr - PO 300 mg BID DONTA Administration Folic Acid 1 mg 02/12/17 10:00 02/12/17 09:58 Folic Acid - PO 1 mg DAILY DONTA Administration Hydroxychloroquine Sulfate 200 mg 02/11/17 22:00 02/12/17 09:58 Plaquenil - PO 200 mg BID DONTA Administration Insulin Aspart 1 vial 02/11/17 22:10 02/12/17 06:44 Novolog Vial Sliding Scale - SQ 4 units ACHS DONTA Administration Protocol Insulin Detemir 18 units 02/11/17 18:45 02/12/17 09:57 Levemir Vial SQ 18 units DAILY DONTA Administration Levothyroxine Sodium 50 mcg 02/12/17 07:00 02/12/17 06:44 Synthroid - PO 50 mcg DAILY@0700 DONTA Administration Methotrexate 12.5 mg 02/11/17 18:45 Mexate - PO WEEKLY DONTA Methylprednisolone Sodium Succinate 60 mg 02/11/17 22:00 02/12/17 09:59 Solu-Medrol - IVPUSH 60 mg BID DONTA Administration Montelukast Sodium 10 mg 02/12/17 10:00 02/12/17 09:58 Singulair - PO 10 mg DAILY DONTA Administration Non-Formulary Medication 5,000 mcg 02/12/17 10:00 Biotin [Hard Nails] PO DAILY DONTA [id number] Ethyl Esters 3 gm 02/12/17 10:00 02/12/17 09:59 Lovaza - PO 3 gm DAILY ODNTA Administration Pramipexole Dihydrochloride 0.5 mg 02/11/17 22:00 02/12/17 09:58 Mirapex - PO 0.5 mg BID DONTA Administration Sertraline HCl 100 mg 02/12/17 10:00 02/12/17 09:59 Zoloft - PO 100 mg DAILY DONTA Administration Tiotropium [place] 1 puff 02/11/17 18:45 02/12/17 10:03 Spiriva - IH 1 puff DAILY DONTA Administration Topiramate 100 mg 02/11/17 22:30 02/12/17 09:58 Topamax - PO 100 mg BID DONTA Administration Last Vital Signs Temp Pulse Resp BP Pulse Ox 98.1 F 76 20 151/70 99 02/12/17 09:08 02/12/17 09:08 02/12/17 09:08 02/12/17 09:08 02/11/17 21:00 General NAD CV S1 S2 RRR no murmur/rub/gallop +chest wall tenderness Lungs CTA B/L no wheezing/rales/rhonchi Abdomen soft NT/ND obese Extremities non pitting edema CBCD WBC 8.3 K/mm3 (4.0-10.0) 02/12/17 05:05 RBC 4.32 M/mm3 (3.60-5.2) 02/12/17 05:05 Hgb 12.4 GM/dL (10.7-15.3) 02/12/17 05:05 Hct 39.2 % (32.4-45.2) 02/12/17 05:05 MCV 90.7 fl (80-96) 02/12/17 05:05 MCHC 31.7 g/dl (32.0-36.0) L 02/12/17 05:05 RDW 16.2 % (11.6-15.6) H 02/12/17 05:05 Plt Count 351 K/MM3 (134-434) 02/12/17 05:05 MPV 8.3 fl (7.5-11.1) 02/12/17 05:05 CMP Sodium 141 mmol/L (136-145) 02/12/17 05:05 Potassium 4.4 mmol/L (3.5-5.1) 02/12/17 05:05 Chloride 110 mmol/L (98-107) H 02/12/17 05:05 Carbon Dioxide 23 mmol/L (21-32) 02/12/17 05:05 Anion Gap 8 (8-16) 02/12/17 05:05 BUN 15 mg/dL (7-18) 02/12/17 05:05 Creatinine 0.9 mg/dL (0.55-1.02) 02/12/17 05:05 Creat Clearance w eGFR > 60 (>60) 02/12/17 05:05 Random Glucose 179 mg/dL (74-106) H D 02/12/17 05:05 Calcium 8.6 mg/dL (8.5-10.1) 02/12/17 05:05 Total Bilirubin 0.3 mg/dL (0.2-1.0) D 02/12/17 05:05 AST 14 U/L (15-37) L D 02/12/17 05:05 ALT 28 U/L (12-78) 02/12/17 05:05 Alkaline Phosphatase 129 U/L (45-117) H 02/12/17 05:05 Total Protein 7.0 g/dl (6.4-8.2) 02/12/17 05:05 Albumin 3.1 g/dl (3.4-5.0) L 02/12/17 05:05 CARDIAC ENZYMES Troponin I < 0.02 ng/ml (0.00-0.05) 02/12/17 00:15 ASSESSMENT AND PLAN: 61yo F with PMH DANY on cpap, SLE, COPD on 2L NC, morbid obesity s/p gastric bypass, CAD s/p PCI, hypothyroid and dyslipidemia presented to the ER with SOB on exertion 1. Acute COPD exacerbation- remains dyspnic on exertion. on medrol 60mg BID. 3L NC and saturating well. plan to conver to prednisone in the AM. cont nebs prn, singulair, inhalers. pulmonary consulted. supplemental oxygen as needed to maintain spO2 > 90% 2. Atypical CP- more likely pleuritic from cough. continuous cardiac monitoring. no events on monitor CE neg x2. 3. hypothyroid- cont LT4 4. DANY- cpap HS 5. Morbid obesity s/p gastric bypass 6. SLE- on mtx and plaquenil 7. DM- cont lantus and iss 8. DVT ppx- EAM 9. d/c planning for the AM. notified pt anticipate discharge tomorrow if continues to improve. can d/c cardiac monitoring Visit type - Emergency Visit Emergency Visit: Yes ED Registration Date: 02/11/17 Care time: The patient presented to the Emergency Department on the above date and was hospitalized for further evaluation of their emergent condition. - New Patient This patient is new to me today: No - Critical Care Critical Care patient: No - Discharge Referral Referred to [facility] Yes Physician Referral: Morgan Hyde MD (Pulm)
[2017-02-12] MEDS ORDERED: ALBUTEROL SO4 0.083% IH SOL 2.5 MG/3 ML VIAL.NEB. NEB PRN (11:41)
[2017-02-12] MEDS ORDERED: METHOTREXATE 2.5 MG TABLET PO SCH (11:41)
--- NOTE | 2017-02-12 12:45 | CON.PULM ---
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 No: Alzheimer's Cardio/Vascular: No: AFIB Pulmonary: Yes: Asthma, COPD, Sleep Apnea Gastrointestinal: No: Ascites Hepatobiliary: No: Cirrhosis Renal/: No: Renal Failure Reproductive: Yes: Postmenopausal ...LMP: 03/18/01 Heme/Onc: Yes: Anemia Infectious Disease: Yes: AIDS Rheumatology: Yes: Lupus Endocrine: Yes: Diabetes Mellitus - Past Surgical History Past Surgical History: Yes: Cataract Removal, Cholecystectomy, Joint Replacement (Right total hip replacement), Tonsillectomy - Alcohol/Substance Use Hx Alcohol Use: No History of Substance Use: reports: None - Smoking History Smoking history: Former smoker Have you smoked in the past 12 months: No Aproximately how many cigarettes per day: 0 If you are a former smoker, when did you quit?: 1999 - Social History ADL: Independent History of Recent Travel: No Home Medications - Allergies Allergies/Adverse Reactions: Allergies Allergy/AdvReac Type Severity Reaction Status Date / Time gabapentin [From Neurontin] Allergy PALPITATIONS, Verified 02/11/17 12:08 PASSES OUT Penicillins Allergy TONGUE Verified 02/11/17 12:08 Swelling phenytoin sodium Allergy diarrhea/vo Verified 02/11/17 12:08 [From Dilantin] miting phenytoin sodium extended Allergy Verified 02/11/17 12:08 [From Dilantin] theophylline [Theophylline] Allergy diarrhea,SE Verified 02/11/17 12:08 IZURES - Home Medications Home Medications: Ambulatory Orders Atorvastatin Ca [Lipitor] 10 mg PO HS 10/20/15 Biotin [Hard Nails] 5,000 mcg PO DAILY 10/20/15 Carbamazepine Xr [Tegretol XR -] 300 mg PO BID 10/20/15 Folic Acid 1 mg PO DAILY 10/20/15 Levothyroxine [Synthroid -] 50 mcg PO UTDICT 10/20/15 Methotrexate [Mexate -] 12.5 mg PO WEEKLY 10/20/15 Montelukast Na [Singulair -] 10 mg PO DAILY 10/20/15 [place]-3 Fatty Acids [[place]-3] 3 tab PO DAILY 10/20/15 Sertraline HCl [Zoloft -] 100 mg PO DAILY 10/20/15 Topiramate [Trokendi Xr] 100 mg PO BID 10/20/15 Umeclidinium [place] [Incruse Ellipta] 62.5 mcg IH DAILY 10/20/15 Glipizide 10 mg PO BID 08/13/16 Hydroxychloroquine Sulfate [Plaquenil] 200 mg PO BID 08/13/16 Insulin Glargine,Hum.rec.anlog [Lantus (10mL VIAL) -] 22 units SQ DAILY Albuterol Sulfate [Proair Respiclick] 90 mcg IH PRN PRN 11/19/16 Pramipexole Dihydrochloride [Mirapex -] 0.5 mg PO BID 11/19/16 Prednisone 20 mg PO ASDIR 11/19/16 Family Disease History - Family Disease History Family History: Unremarkable Review of Systems - Review of Systems Constitutional: denies: Fever, Loss of Appetite Eyes: reports: No Symptoms HENT: reports: No Symptoms Neck: reports: No Symptoms Cardiovascular: reports: Chest Pain (WITH COUGH), Shortness of Breath. denies: Palpitations Respiratory: reports: Cough, Exercise Intolerance, SOB, SOB on Exertion, Wheezing. denies: Hemoptysis Gastrointestinal: reports: No Symptoms Genitourinary: reports: No Symptoms Physical Exam Vital Sings: Vital Signs Temperature 98.1 F 02/12/17 09:08 Pulse Rate 76 02/12/17 09:08 Respiratory Rate 20 02/12/17 09:08 Blood Pressure 151/70 02/12/17 09:08 O2 Sat by Pulse Oximetry (%) 99 02/11/17 21:00 Constitutional: Yes: Calm Eyes: Yes: EOM Intact HENT: Yes: Normocephalic Neck: Yes: Trachea Midline Cardiovascular: Yes: Regular Rate and Rhythm, S1, S2 Respiratory: Yes: Diminished Gastrointestinal: Yes: Soft, Abdomen, Obese Edema: No Integumentary: Yes: WNL Neurological: Yes: Alert ...Motor Strength: WNL Psychiatric: Yes: WNL Labs: CBC, BMP 02/12/17 05:05 02/12/17 05:05 REST REVIEWED Imaging - Results Chest X-ray: Report Reviewed, Image Reviewed Problem List - Problems (1) COPD (chronic obstructive pulmonary disease) Code(s): J44.9 - CHRONIC OBSTRUCTIVE PULMONARY DISEASE, UNSPECIFIED Qualifiers: COPD type: unspecified COPD Qualified Code(s): J44.9 - Chronic obstructive pulmonary disease, unspecified (2) Atypical chest pain Code(s): R07.89 - OTHER CHEST PAIN (3) Morbid (severe) obesity due to excess calories Code(s): E66.01 - MORBID (SEVERE) OBESITY DUE TO EXCESS CALORIES (4) CHF (congestive heart failure) Code(s): I50.9 - HEART FAILURE, UNSPECIFIED Assessment/Plan A/E COPD LIKELY DUE TO ACUTE BRONCHITIS HOME O2/OSAS ON NIPPV MULTIPLE CO-MORBIDITIES INCLUDING SLE ON METHOTREXATE/PLAQUENIL BRIEF COURSE STEROIDS/BRONCHODILATORS/O2 2L/M NIPPV HS AND PRN GLYCEMIC CONTROL OBSERVING OFF ABS WILL FOLLOW Eduin HART MD
[2017-02-12] MEDS: FUROSEMIDE 40 MG TABLET (FP) PO SCH (15:21)
[2017-02-12] MEDS: LOSARTAN POTASSIUM 50 MG TABLET (FP) PO SCH (15:21)
[2017-02-12] MEDS: methylPREDNISolone NA SUCC 125 MG/2 ML VIAL IVPUSH SCH (21:27)
[2017-02-12] MEDS ORDERED: ATORVASTATIN CA 10 MG TABLET (FP) PO SCH (22:00)
[2017-02-13] MEDS: INSULIN SLIDING SCALE (NOVOLOG) 1 VIAL SQ SCH ×2 (06:00→11:17)
[2017-02-13] MEDS ORDERED: LEVOTHYROXINE NA 50 MCG TABLET (FP) PO SCH (07:00)
[2017-02-13 08:03] VITALS: BP 128/72; PULSE 72; TEMP 97.7
[2017-02-13] MEDS: methylPREDNISolone NA SUCC 125 MG/2 ML VIAL IVPUSH SCH (09:26)
[2017-02-13] MEDS: FUROSEMIDE 40 MG TABLET (FP) PO SCH (09:26)
[2017-02-13] MEDS: LOSARTAN POTASSIUM 50 MG TABLET (FP) PO SCH (09:26)
[2017-02-13] MEDS ORDERED: PT OWN MED DRAWER 7, Y5N ONE (09:32)
[2017-02-13] MEDS: PRAMIPEXOLE DIHYDROCHLORIDE 0.5 MG TABLET PO SCH (09:34)
[2017-02-13] MEDS: HYDROXYCHLOROQUINE SO4 200 MG TABLET (FP) PO SCH (09:36)
[2017-02-13] MEDS: TOPIRAMATE 100 MG TABLET PO SCH (09:37)
[2017-02-13] MEDS: BUDESONIDE/FORMETEROL FUMARATE 80/4.5 mcg INHALER IH SCH (09:37)
[2017-02-13] MEDS ORDERED: SERTRALINE HCL 50 MG TABLET (FP) PO SCH (10:00)
[2017-02-13] MEDS ORDERED: TIOTROPIUM BROMIDE 18 MCG/INH (DEVICE W/ 5 CAPSULES) IH SCH (10:00)
[2017-02-13] MEDS ORDERED: INSULIN DETEMIR 100 UNITS/ML MDV SQ SCH (10:00)
[2017-02-13] MEDS ORDERED: FOLIC ACID 1 MG TABLET (FP) PO SCH (10:00)
[2017-02-13] MEDS ORDERED: OMEGA-3 ACID ETHYL ESTERS (FATTY-ACIDS) 1 GM CAPSULE (FP) PO SCH (10:00)
[2017-02-13] MEDS ORDERED: BIOTIN 5000 MCG PO SCH (10:00)
[2017-02-13] MEDS ORDERED: MONTELUKAST NA 10 MG TABLET PO SCH (10:00)
--- NOTE | 2017-02-13 12:22 | DS ---
Physical Exam: SUBJECTIVE: Patient seen and examined. She is complaining of occasional cough. No overnight events, no fever, chills, sore throat. OBJECTIVE: Vital Signs Period Temp Pulse Resp BP Sys/Oconnell Pulse Ox Last 24 Hr 97.6 F-98.7 F 61-96 18-20 128-146/65-76 97-100 PHYSICAL EXAM GENERAL: The patient is awake, alert, and fully oriented, in no acute distress, lying in bed comfortably. HEAD: Normal with no signs of trauma. EYES: extraocular movements intact ENT: oropharynx clear without exudates, moist mucous membranes NECK: Trachea midline, full range of motion, supple. LUNGS: Breath sounds equal, clear to auscultation bilaterally, no wheezes, no crackles, no accessory muscle use. HEART: Regular rate and rhythm, S1, S2 without murmur, rub or gallop. ABDOMEN: Obese, soft, nontender, nondistended, normoactive bowel sounds, no guarding, no rebound EXTREMITIES: 2+ pulses, warm, well-perfused, trace edema. NEUROLOGICAL: Normal speech, no facial asymmetry, gait not observed. PSYCH: Normal mood, normal affect. SKIN: Warm, dry, normal turgor. LABS Laboratory Results - last 24 hr 02/12/17 02/12/17 02/13/17 17:12 21:26 05:37 POC Glucometer 188 134 172 02/13/17 11:17 POC Glucometer 127 HOSPITAL COURSE: Date of Admission:02/11/17 Date of Discharge: 02/13/17 Minutes to complete discharge: 30 Discharge Summary Reason For Visit: COPD Current Active Problems COPD (chronic obstructive pulmonary disease) (Acute) Chest pain (Acute) Hospital Course: Patient is a 61 year old female came in to the hospital with the chief complaint of SOB and dry cough with substernal chest pain x 3 weeks. As per the patient, she started having dry cough associated with SOB. She also reports to have sweating and feeling feverish but didn't measure the temperature. Initially thought it was cold. No sick contacts. Her symptoms started getting worse. Had been taking predinisone 5mg and 10mg alternatively but didn't get better. Patient also mentions she had an appointment with Dr. Stone last week but had to cancel because of her illness. She also has been complaining of chest pain, located centrally, radiating towards her back, constant, 10/10, worse with coughing. Not associated with nausea or vomiting. The pt was afebrile, normotensive. No acute changes on CXR or ECG. Hospital course: The pt was admitted to telemetry observation. Acute COPD exacerbation we started Solu medrol 60mg BID, oxygen supplementation on 3L NC, consulted Pulmunologist. The pt clinically improved and we switched her to Prednisone taper starting at 60 mg daily for 12 days. We also recommended that she will follow Dr. Hyde- Pulmunologist at the dose of Prednisne 20 mg. We recommended continue taking nebs prn, singulair, inhalers. Atypical CP more likely pleuritic from cough, continuous cardiac monitoring, no acute events were reported, We also continued her home medications for hypothyroidism, DANY, SLE, DMII. She was counseled about importance of weight loss and medical risk associated with obesity. She verbalized understanding. Condition: Good - Instructions Diet, Activity, Other Instructions: You we admitted to the hospital for COPD exacerbation and chest pain. We discharged you with the recommendation to taper Prednisone dose. Please continue: Prednisone 60 mg for 2 more days, starting tomorrow 02/14/17, then go down to 50 mg for two days, 40 mg for two days, 30 mg x days, 20 mg x days, 10 mg x 2 days. When you start taking 20 mg daily, we would like you to see Dr Hyde- Pulmunologist. We started two new medications in the hospital: Spiriva and Symbicort, please continue taking them as prescribed. Please follow up with your primary care physician in 1 week. If you start experiencing chest pain, shortness of breath, palpitations, dizziness please come back to emergency room as soon as possible. Referrals: Goran Hernandez MD [Staff Physician] - Morgan Hyde MD [Staff Physician] - Disposition: HOME - Home Medications Comprehensive Discharge Medication List: Ambulatory Orders Atorvastatin Ca [Lipitor] 10 mg PO HS 10/20/15 Biotin [Hard Nails] 5,000 mcg PO DAILY 10/20/15 Carbamazepine Xr [Tegretol XR -] 300 mg PO BID 10/20/15 Folic Acid 1 mg PO DAILY 10/20/15 Levothyroxine [Synthroid -] 50 mcg PO UTDICT 10/20/15 Methotrexate [Mexate -] 12.5 mg PO WEEKLY 10/20/15 Montelukast Na [Singulair -] 10 mg PO DAILY 10/20/15 [place]-3 Fatty Acids [[place]-3] 3 tab PO DAILY 10/20/15 Sertraline HCl [Zoloft -] 100 mg PO DAILY 10/20/15 Topiramate [Trokendi Xr] 100 mg PO BID 10/20/15 Umeclidinium [place] [Incruse Ellipta] 62.5 mcg IH DAILY 10/20/15 Glipizide 10 mg PO BID 08/13/16 Hydroxychloroquine Sulfate [Plaquenil] 200 mg PO BID 08/13/16 Insulin Glargine,Hum.rec.anlog [Lantus (10mL VIAL) -] 22 units SQ DAILY Albuterol Sulfate [Proair Respiclick] 90 mcg IH PRN PRN 11/19/16 Pramipexole Dihydrochloride [Mirapex -] 0.5 mg PO BID 11/19/16 Furosemide [Lasix -] 1 tab PO DAILY 02/12/17 Losartan Potassium 1 tab PO DAILY 02/12/17 Budesonide/Formeterol Fumarate [SYMBICORT 80/4.5mcg -] 2 puff IH BID #1 inhaler 02/13/17 Prednisone See Taper PO DAILY 12 Days tablet 02/13/17 Tiotropium [place] [Spiriva] 1 puff IH DAILY #1 inh 02/13/17 Problem List - Problems (1) Atypical chest pain Code(s): R07.89 - OTHER CHEST PAIN (2) COPD (chronic obstructive pulmonary disease) Code(s): J44.9 - CHRONIC OBSTRUCTIVE PULMONARY DISEASE, UNSPECIFIED Qualifiers: COPD type: unspecified COPD Qualified Code(s): J44.9 - Chronic obstructive pulmonary disease, unspecified (3) Chest pain Code(s): R07.9 - CHEST PAIN, UNSPECIFIED Qualifiers: Chest pain type: unspecified Qualified Code(s): R07.9 - Chest pain, unspecified (4) Morbid (severe) obesity due to excess calories Code(s): E66.01 - MORBID (SEVERE) OBESITY DUE TO EXCESS CALORIES (5) CHF (congestive heart failure) Code(s): I50.9 - HEART FAILURE, UNSPECIFIED (6) CKD (chronic kidney disease) stage 3, GFR 30-59 ml/min Code(s): N18.3 - CHRONIC KIDNEY DISEASE, STAGE 3 (MODERATE) (7) Hypertension Code(s): I10 - ESSENTIAL (PRIMARY) HYPERTENSION Qualifiers: Hypertension type: essential hypertension Qualified Code(s): I10 - Essential (primary) hypertension (8) SLE (systemic lupus erythematosus) Code(s): M32.9 - SYSTEMIC LUPUS ERYTHEMATOSUS, UNSPECIFIED (9) Type 2 diabetes mellitus Code(s): E11.9 - TYPE 2 DIABETES MELLITUS WITHOUT COMPLICATIONS Qualifiers: Diabetes mellitus complication status: with kidney complications Diabetes mellitus complication detail: with chronic kidney disease Diabetes mellitus care home insulin use: without care home use Chronic kidney disease stage: unspecified stage Qualified Code(s): E11.22 - Type 2 diabetes mellitus with diabetic chronic kidney disease This patient is new to me today: Yes Date on this admission: 02/13/17 Emergency Visit: Yes ED Registration Date: 02/11/17 Care time: The patient presented to the Emergency Department on the above date and was hospitalized for further evaluation of their emergent condition. Critical Care patient: No - Discharge Referral Referred to [facility] Yes Physician Referral: Morgan Hyde MD (Pulm)
--- NOTE | 2017-02-13 12:24 | PN ---
Progress Note (short form) - Note Progress Note: PULMONARY VSS/AFEBRILE ANICTERIC MINIMAL EXP WHEEZE S1S2 BS+ OBESE NO EDEMA LABS/MEDS/IMAGES/MICRO/NOTES REVIEWED A/E COPD LIKELY DUE TO ACUTE BRONCHITIS HOME O2/OSAS ON NIPPV MULTIPLE CO-MORBIDITIES INCLUDING SLE ON METHOTREXATE/PLAQUENIL BRIEF COURSE STEROIDS/BRONCHODILATORS/O2 2L/M NIPPV HS AND PRN GLYCEMIC CONTROL NO OBJECTION TO CONTINUING TREATMENT AT HOME Eduin HART MD Problem List - Problems (1) COPD (chronic obstructive pulmonary disease) Code(s): J44.9 - CHRONIC OBSTRUCTIVE PULMONARY DISEASE, UNSPECIFIED Qualifiers: COPD type: unspecified COPD Qualified Code(s): J44.9 - Chronic obstructive pulmonary disease, unspecified (2) Atypical chest pain Code(s): R07.89 - OTHER CHEST PAIN (3) Morbid (severe) obesity due to excess calories Code(s): E66.01 - MORBID (SEVERE) OBESITY DUE TO EXCESS CALORIES (4) CHF (congestive heart failure) Code(s): I50.9 - HEART FAILURE, UNSPECIFIED
--- NOTE | 2017-02-13 13:07 | PN ---
Teaching Attending Note Name of Resident: Harriet Brink ATTENDING PHYSICIAN STATEMENT I saw and evaluated the patient. I reviewed the resident's note and discussed the case with the resident. I agree with the resident's findings and plan as documented. SUBJECTIVE:continues to have non productive cough. breahting improved. requesting robitussin with codiene for discharge. dnies Cp, fever, chills OBJECTIVE: Last Vital Signs Temp Pulse Resp BP Pulse Ox 97.7 F 72 20 128/72 98 02/13/17 08:01 02/13/17 08:01 02/13/17 08:10 02/13/17 08:01 02/13/17 08:10 General NAD Lungs CTA B/L no wheezing/rale/rhonchi ASSESSMENT AND PLAN: 61yo F with PMH DANY on cpap, SLE, COPD on 2L NC, morbid obesity s/p gastric bypass, CAD s/p PCI, hypothyroid and dyslipidemia presented to the ER with SOB on exertion 1. Acute COPD exacerbation- improved. saturating well on 2L NC. transition prednosone po 60mg and decrease by 10mg Q2D. explained need to f/u with pulmonary once reaches 20mg. instructed not to go into cold weather in the evening as this may aggravate lung condition.cont nebs prn, singulair, inhalers. pulmonary consulted. supplemental oxygen as needed to maintain spO2 > 90% 2. Atypical CP- more likely pleuritic from cough. continuous cardiac monitoring. no events on monitor CE neg x2. 3. hypothyroid- cont LT4 4. DANY- cpap HS 5. Morbid obesity s/p gastric bypass 6. SLE- on mtx and plaquenil 7. DM- cont lantus and iss 8. DVT ppx- EAM 9. d/c home
--- NOTE | 2017-02-21 12:43 | EKG ---
Test Reason : Blood Pressure : / mmHG Vent. Rate : 070 BPM Atrial Rate : 070 BPM P-R Int : 162 ms QRS Dur : 076 ms QT Int : 420 ms P-R-T Axes : 038 -13 027 degrees QTc Int : 453 ms NORMAL SINUS RHYTHM MODERATE VOLTAGE CRITERIA FOR LVH, MAY BE NORMAL VARIANT BORDERLINE ECG WHEN COMPARED WITH ECG OF 08-NOV-2016 08:36, NO SIGNIFICANT CHANGE WAS FOUND Confirmed by CLAUDIA WARREN, JEY ([id number]) on 02/21/2017 12:42:56 PM Referred By: Confirmed By:JEY TAYLOR MD
== END 2017-02-13 14:28 | disposition home or self-care (01) ==
LOC: JER 11:54 → UNDOADMOB 17:24 → JERBED 17:24 → J4W 20:45
PROVIDERS: ADMIT Internal Medicine; ATTEND Internal Medicine
PROC: 3E033NZ Introduction of Analgesics, Hypnotics, Sedatives into Peripheral Vein, Percutaneous Approach (ICD-10-PCS; principal; 2017-02-11)
PROC: 3E013VG Introduction of Insulin into Subcutaneous Tissue, Percutaneous Approach (ICD-10-PCS; 2017-02-11)
PROC: 3E0F7GC Introduction of Other Therapeutic Substance into Respiratory Tract, Via Natural or Artificial Opening (ICD-10-PCS; 2017-02-11)
DX: J44.1 Chronic obstructive pulmonary disease with (acute) exacerbation (principal); R07.89 Other chest pain; I10 Essential (primary) hypertension; I25.10 Atherosclerotic heart disease of native coronary artery without angina pectoris; I50.9 Heart failure, unspecified; E11.9 Type 2 diabetes mellitus without complications; E78.5 Hyperlipidemia, unspecified; E03.9 Hypothyroidism, unspecified; G47.33 Obstructive sleep apnea (adult) (pediatric); K21.9 Gastro-esophageal reflux disease without esophagitis; M32.9 Systemic lupus erythematosus, unspecified; G40.909 Epilepsy, unspecified, not intractable, without status epilepticus; G43.909 Migraine, unspecified, not intractable, without status migrainosus; F32.9 Major depressive disorder, single episode, unspecified; E66.01 Morbid (severe) obesity due to excess calories; Z79.4 Long term (current) use of insulin; Z88.0 Allergy status to penicillin; Z87.891 Personal history of nicotine dependence; Z96.643 Presence of artificial hip joint, bilateral; Z99.81 Dependence on supplemental oxygen; Z88.8 Allergy status to other drugs, medicaments and biological substances; Z98.61 Coronary angioplasty status; Z99.89 Dependence on other enabling machines and devices; Z68.41 Body mass index [BMI] 40.0-44.9, adult
CPT/HCPCS: 36415; 71020-TC; 80053; 84443; 84484; 85025; 93005; 93010; 94640; 96372; 96374; 96376; 99283-25; G0378

== ENCOUNTER 2017-02-16 04:58 | Inpatient (IN) | payer OTHER, MEDICARE ==
--- NOTE | 2017-02-16 05:29 | PDOC ---
History of Present Illness - General History Source: Patient - History of Present Illness Initial Comments: 02/16/17 05:31 The patient is a 61 year old female with a significant past medical history of COPD (on 2L of O2 at home), CHF, diabetes, hypertension, hyperlipidemia, and hypothyroidism who presents to the ED s/p discharge from 2-day admission for COPD exacerbation on 02/11/17 for complaint of recurrent dyspnea and chest tightness. She also reports some numbness to right upper chest. The patient states she has been compliant with her medications. She reports a dry cough. She reports her last dose of prednisone was yesterday. She reportedly used her inhaler just prior to presentation, however, states she has run out of nebulizer solution at home. Social hx: The patient is a former smoker. Surgical hx: lapband (11/2016), Cholecystectomy, orthopedic right hip replacement, bilaterally knee arthroscopy, bilateral bunionectomy. PCP: Dr. Hernandez Nitroglycerin Supervisor: Dr. Hyde <Cristy Colvin - Last Filed: 02/16/17 05:35> <James Clements - Last Filed: 02/16/17 10:59> - General History Source: Patient <Carmine Angel - Last Filed: 02/16/17 20:11> - General Chief Complaint: Shortness of Breath Stated Complaint: S.O.B. Time Seen by Provider: 02/16/17 05:29 Past History <Cristy Colvin - Last Filed: 02/16/17 05:35> <James Clements - Last Filed: 02/16/17 10:59> - Past Medical History Anemia: No Asthma: Yes Cancer: No Cardiac Disorders: Yes (CAD) CVA: No COPD: Yes (O2 2L CONTINUOUSLY) CHF: No Dementia: No Diabetes: Yes GI Disorders: Yes (REFLUX) Disorders: No HTN: Yes Hypercholesterolemia: Yes Liver Disease: No Seizures: Yes (NO RECENT [id number]) Thyroid Disease: Yes (HYPO) - Surgical History Abdominal Surgery: No Appendectomy: No Cardiac Surgery: No Cholecystectomy: Yes GI Surgery: Yes (LAP sx 11/23/16) Lung Surgery: No Neurologic Surgery: No Orthopedic Surgery: Yes (BILAT HIP REPLACEMENT/BILAT KNEE SX) - Immunization History Immunization Up to Date: Yes - Suicide/Smoking/Psychosocial Hx Smoking Status: Yes Smoking History: Unknown if ever smoked Have you smoked in the past 12 months: No Number of Cigarettes Smoked Daily: 0 If you are a former smoker, when did you quit?: 15YRS AGO Information on smoking cessation initiated: No Hx Alcohol Use: No Drug/Substance Use Hx: No Substance Use Type: None Hx Substance Use Treatment: No <Carmine Angel - Last Filed: 02/16/17 20:11> - Past Medical History Allergies/Adverse Reactions: Allergies Allergy/AdvReac Type Severity Reaction Status Date / Time gabapentin [From Neurontin] Allergy PALPITATIONS, Verified 02/16/17 05:20 PASSES OUT Penicillins Allergy TONGUE Verified 02/16/17 05:20 Swelling phenytoin sodium Allergy diarrhea/vo Verified 02/16/17 05:20 [From Dilantin] miting phenytoin sodium extended Allergy Verified 02/16/17 05:20 [From Dilantin] theophylline [Theophylline] Allergy diarrhea,SE Verified 02/16/17 05:20 IZURES Home Medications: Ambulatory Orders Atorvastatin Ca [Lipitor] 10 mg PO HS 10/20/15 Biotin [Hard Nails] 5,000 mcg PO DAILY 10/20/15 Carbamazepine Xr [Tegretol XR -] 300 mg PO BID 10/20/15 Folic Acid 1 mg PO DAILY 10/20/15 Levothyroxine [Synthroid -] 50 mcg PO UTDICT 10/20/15 Methotrexate [Mexate -] 12.5 mg PO WEEKLY 10/20/15 Montelukast Na [Singulair -] 10 mg PO DAILY 10/20/15 [place]-3 Fatty Acids [[place]-3] 3 tab PO DAILY 10/20/15 Sertraline HCl [Zoloft -] 100 mg PO DAILY 10/20/15 Topiramate [Trokendi Xr] 100 mg PO BID 10/20/15 Umeclidinium [place] [Incruse Ellipta] 62.5 mcg IH DAILY 10/20/15 Glipizide 10 mg PO BID 08/13/16 Hydroxychloroquine Sulfate [Plaquenil] 200 mg PO BID 08/13/16 Insulin Glargine,Hum.rec.anlog [Lantus (10mL VIAL) -] 22 units SQ DAILY Albuterol Sulfate [Proair Respiclick] 90 mcg IH PRN PRN 11/19/16 Pramipexole Dihydrochloride [Mirapex -] 0.5 mg PO BID 11/19/16 Furosemide [Lasix -] 1 tab PO DAILY 02/12/17 Losartan Potassium 1 tab PO DAILY 02/12/17 Budesonide/Formeterol Fumarate [SYMBICORT 80/4.5mcg -] 2 puff IH BID #1 inhaler 02/13/17 Guaifenesin AC [Robitussin AC] 10 ml PO Q6H PRN #100 ml MDD 60 02/13/17 Prednisone See Taper PO DAILY 12 Days #42 tablet 02/13/17 Tiotropium [place] [Spiriva] 1 puff IH DAILY #1 inh 02/13/17 Review of Systems - Review of Systems Able to Perform ROS?: Yes Comments:: 02/16/17 05:32 CONSTITUTIONAL: Absent: fever, chills, diaphoresis, generalized weakness, malaise, loss of appetite HEENT: Absent: rhinorrhea, nasal congestion, throat pain, throat swelling, difficulty swallowing, mouth swelling, ear pain, eye pain, visual Changes CARDIOVASCULAR: (+) chest tightness, Right sided chest "numbness" Absent: chest pain, syncope, palpitations, irregular heart rate, lightheadedness , peripheral edema RESPIRATORY: (+) cough, shortness of breath, dyspnea with exertion, Absent: orthopnea, wheezing, stridor, hemoptysis GASTROINTESTINAL: Absent: abdominal pain, abdominal distension, nausea, vomiting, diarrhea, constipation, melena, hematochezia GENITOURINARY: Absent: dysuria, frequency, urgency, hesitancy, hematuria, flank pain, genital pain MUSCULOSKELETAL: Absent: myalgia, arthralgia, joint swelling SKIN: Absent: rash, itching, pallor HEMATOLOGIC/IMMUNOLOGIC: Absent: easy bleeding, easy bruising, lymphadenopathy, frequent infections ENDOCRINE: Absent: unexplained weight gain, unexplained weight loss, heat intolerance, cold intolerance NEUROLOGIC: Absent: headache, focal weakness or paresthesias, dizziness, unsteady gait, seizure, mental status changes, bladder or bowel incontinence PSYCHIATRIC: Absent: anxiety, depression, suicidal or homicidal ideation, hallucinations. <Cristy Colvin - Last Filed: 02/16/17 05:35> *Physical Exam - Vital Signs Last Vital Signs Temp Pulse Resp BP Pulse Ox 98.3 F 86 18 112/53 99 02/16/17 05:20 02/16/17 05:20 02/16/17 05:20 02/16/17 05:20 02/16/17 05:20 - Physical Exam Comments: 02/16/17 05:33 GENERAL: (+) Morbidly obese. Awake and alert. No acute distress. HEENT: Normocephalic, atraumatic. PERRLA, EOMI. No conjunctival pallor. Sclera are non- icteric. Moist mucous membranes. Oropharynx is clear. NECK: Supple. Full ROM. No JVD. Carotid pulses 2+ and symmetric, without bruits. No thyromegaly. No lymphadenopathy. CARDIOVASCULAR: Regular rate and rhythm. No murmurs, rubs, or gallops. Distal pulses are 2+ and symmetric. PULMONARY: (+) decreased breath sounds bilaterally. No prolonged air exchange. No conversational dyspnea. No retractions. Lungs clear to auscultation bilaterally. No wheezing, rales or rhonchi. ABDOMINAL: Soft. Non-tender. Non-distended. No rebound or guarding. No organomegaly. Normoactive bowel sounds. MUSCULOSKELETAL Normal range of motion at all joints. No bony deformities or tenderness. No CVA tenderness. EXTREMITIES: No cyanosis. No clubbing. No edema. No calf tenderness. SKIN: Warm and dry. Normal capillary refill. No rashes. No jaundice. NEUROLOGICAL: Alert, awake, appropriate. Cranial nerves 2-12 intact. Normoreflexic in the upper and lower extremities. Normal speech. Toes are down-going bilaterally. Gait is normal without ataxia. PSYCHIATRIC: Cooperative. Good eye contact. Appropriate mood and affect. <Cristy Colvin - Last Filed: 02/16/17 05:35> - Vital Signs Last Vital Signs Temp Pulse Resp BP Pulse Ox 98.3 F 86 18 112/53 99 02/16/17 05:20 02/16/17 05:20 02/16/17 05:20 02/16/17 05:20 02/16/17 05:20 <James Clements - Last Filed: 02/16/17 10:59> - Vital Signs Last Vital Signs Temp Pulse Resp BP Pulse Ox 98.3 F 86 18 112/53 99 02/16/17 05:20 02/16/17 05:20 02/16/17 05:20 02/16/17 05:20 02/16/17 05:20 <Carmine Angel - Last Filed: 02/16/17 20:11> Heart Score/ECG Review - ECG Intrepretation Comment:: 02/16/17 05:35 EKG was read by Dr. Angel at 05:17 Impression: Normal sinus rhythm. Voltage criteria for left ventricular hypertrophy. <Cristy Colvin - Last Filed: 02/16/17 05:35> ED Treatment Course - LABORATORY CBC & Chemistry Diagram: 02/16/17 06:06 02/16/17 06:00 - ADDITIONAL ORDERS Additional order review: Laboratory Results 02/16/17 02/16/17 02/16/17 09:00 06:00 06:00 PT with INR INR D-Dimer 233 Sodium Potassium Chloride Carbon Dioxide Anion Gap BUN Creatinine Creat Clearance w eGFR Random Glucose Calcium Magnesium 1.9 D Total Bilirubin AST ALT Alkaline Phosphatase Creatine Kinase Troponin I Total Protein Albumin Urine Color Yellow Urine Appearance Slcloudy Urine pH 5.0 Ur Specific [place] 1.028 Urine Protein Negative Urine Glucose (UA) Negative Urine Ketones Trace H Urine Blood Negative Urine Nitrite Negative Urine Bilirubin Negative Urine Urobilinogen 2.0 H 02/16/17 02/16/17 06:00 06:00 PT with INR 11.10 INR 0.98 D-Dimer Sodium 142 Potassium 3.8 Chloride 107 Carbon Dioxide 25 Anion Gap 10 BUN 19 H D Creatinine 0.9 Creat Clearance w eGFR > 60 Random Glucose 103 D Calcium 8.3 L Magnesium Total Bilirubin 0.2 D AST 14 L ALT 32 Alkaline Phosphatase 135 H Creatine Kinase 63 Troponin I < 0.02 Total Protein 7.3 Albumin 3.4 Urine Color Urine Appearance Urine pH Ur Specific [place] Urine Protein Urine Glucose (UA) Urine Ketones Urine Blood Urine Nitrite Urine Bilirubin Urine Urobilinogen 02/16/17 06:06 RBC 4.36 MCV 89.3 MCHC 33.3 RDW 16.2 H MPV 7.9 Neutrophils % 52.5 D Lymphocytes % 37.5 D Monocytes % 7.6 D Eosinophils % 0.6 D Basophils % 1.8 - Medications Given in the ED: ED Medications Discontinued Medications Generic Name Dose Route Start Last Admin Trade Name Freq PRN Reason Stop Dose Admin Albuterol/Ipratropium 1 amp 02/16/17 05:30 02/16/17 06:42 Duoneb - NEB 02/16/17 05:31 1 amp ONCE STA Administration Albuterol/Ipratropium 1 amp 02/16/17 05:31 02/16/17 06:42 Duoneb - NEB 02/16/17 05:32 1 amp ONCE STA Administration Albuterol/Ipratropium 1 amp 02/16/17 09:25 02/16/17 09:35 Duoneb - NEB 02/16/17 09:26 1 amp ONCE ONE Administration Magnesium Sulfate 2 gm 02/16/17 09:25 02/16/17 09:35 Magnesium Sulfate IVPB 02/16/17 09:26 2 gm ONCE ONE Administration Methylprednisolone Sodium Succinate 125 mg 02/16/17 05:30 02/16/17 06:43 Solu-Medrol - IVPB 02/16/17 05:31 125 mg ONCE ONE Administration <James Clements - Last Filed: 02/16/17 10:59> - LABORATORY CBC & Chemistry Diagram: 02/16/17 06:06 02/16/17 06:00 <Carmine Angel - Last Filed: 02/16/17 20:11> Medical Decision Making - Medical Decision Making 02/16/17 20:10 Dr. Angel: The scribe's documentation has been prepared under my direction and personally reviewed by me in its entirery. I confirm that the note above accurately reflects all work, treatment, procedures, and medical decision making performed by me. Pt still coughing and SOB. Pt was admitted to continued treatment <Carmine Angel - Last Filed: 02/16/17 20:11> *DC/Admit/Observation/Transfer - Attestations Scribe Attestion: 02/16/17 05:34 Documentation prepared by Cristy Colvin, acting as faculty i on call medical assistant for Carmine Angel DO <Cristy Colvin - Last Filed: 02/16/17 05:35> - Discharge Dispostion Admit: Yes <James Clements - Last Filed: 02/16/17 10:59> <Carmine Angel - Last Filed: 02/16/17 20:11> Diagnosis at time of Disposition: Acute exacerbation of chronic obstructive pulmonary disease (COPD) - Discharge Dispostion Condition at time of disposition: Fair
[2017-02-16] MEDS ORDERED: ALBUTEROL SO4 2.5/IPRATROPIUM 0.5 INH SOL 3 ML VIAL.NEB. NEB STA ×2 (05:30→05:31)
[2017-02-16] MEDS ORDERED: methylPREDNISolone NA SUCC 125 MG/2 ML VIAL IVPB ONE (05:30)
[2017-02-16 06:28] LABS: BASO % 1.8 % (0-2.0); EOS % 0.6 % (0-4.5); HEMATOCRIT 38.9 % (32.4-45.2); LYMPH % 37.5 % (8-40); MCH 29.8 pg (25.7-33.7); MCHC 33.3 g/dl (32.0-36.0); MEAN CELL VOLUME 89.3 fl (80-96); MEAN PLT VOLUME 7.9 fl (7.5-11.1); MONO % 7.6 % (3.8-10.2); NEUT % 52.5 % (42.8-82.8); PLATELET COUNT 331 K/MM3 (134-434); RBC 4.36 M/mm3 (3.60-5.2); RDW 16.2 % (11.6-15.6); WHITE BLOOD COUNT 8.9 K/mm3 (4.0-10.0)
[2017-02-16] MEDS ORDERED: methylPREDNISolone NA SUCC 125 MG/2 ML VIAL ONE ×2 (06:33→14:32)
[2017-02-16] MEDS ORDERED: ALBUTEROL SO4 2.5/IPRATROPIUM 0.5 INH SOL 3 ML VIAL.NEB. NEB ONE ×3 (06:33→09:31)
[2017-02-16 07:04] LABS: ALBUMIN 3.4 g/dl (3.4-5.0); ANION GAP 10 (8-16); BILIRUBIN,TOTAL 0.2 mg/dL (0.2-1.0); BLOOD UREA NITROGEN 19 mg/dL (7-18); CALCIUM 8.3 mg/dL (8.5-10.1); CHLORIDE 107 mmol/L (98-107); CO2 25 mmol/L (21-32); CREATININE 0.9 mg/dL (0.55-1.02); GLUCOSE,RANDOM 103 mg/dL (74-106); POTASSIUM 3.8 mmol/L (3.5-5.1); SGOT/AST 14 U/L (15-37); SGPT/ALT 32 U/L (12-78); SODIUM 142 mmol/L (136-145); TOT PROT 7.3 g/dl (6.4-8.2)
[2017-02-16 07:06] LABS: ALK PHOS 135 U/L (45-117); INR 0.98 (0.82-1.09); PROTHROMBIN TIME (PATIENT) 11.1 SEC (9.98-11.88)
[2017-02-16 08:35] LABS: URINE APPEARANCE SLCLOUDY; URINE BILIRUBIN NEGATIVE (NEGATIVE); URINE BLOOD NEGATIVE (NEGATIVE); URINE COLOR YELLOW; URINE GLUCOSE (UA) NEGATIVE (NEGATIVE); URINE KETONE TRACE (NEGATIVE); URINE LEUK ESTERASE NEGATIVE (NEGATIVE); URINE NITRITE NEGATIVE (NEGATIVE); URINE PROTEIN NEGATIVE (NEGATIVE)
[2017-02-16] MEDS ORDERED: MAGNESIUM SULF 50% (8.12 MEQ/2 ML-1 GM VIAL) IVPB ONE (09:25)
[2017-02-16] MEDS ORDERED: MAGNESIUM SULF 50% (8.12 MEQ/2 ML-1 GM VIAL) ONE (09:31)
--- NOTE | 2017-02-16 10:29 | HP ---
CHIEF COMPLAINT: " Worsening SOB and dry cough" PCP: Dr. Hernandez Lumber Racker: Dr. Stone Wildlife Conservation Officer: Dr. Laboy HISTORY OF PRESENT ILLNESS: Patient is a 61 year old female came in to the ED with the chief complaint of worsening SOB and dry cough since her discharge from [facility] 3 days ago. Patient was admitted on 02/11/17-02/13/2017 for COPD exacerbation, was treated with IV solumedrol 60mg BID and was sent home on Prednisone taper. As per the patient, on the day of discharge she was feeling better. However, after going home SOB worsened associated with dry cough. Pt also reports to have substernal chest pain due to vigorous coughing. She was on Prednisone taper but didn't take the recommended dose, was taking only 20mg instead of 60mg. Denies fever, chills, rigors or sweating. Had sick contact- pts had cold. Patient also mentions to have diarrhoea x 1 day about 2 days ago. She had constipation while she was at the hospital, so took grape juice to clear her bowels and started having 6-7 episodes of watery diarrhoea, non bloody which has resolved. No abdominal pain, nausea or vomiting. Denies palpitations, abdominal pain, headache, loc, trauma. Bladder habit normal. Sleep/Appetite decreased since her illness. Had gastric band placement on 11/24/[address] Rojas and she lost 30 lbs since then. (1) Afebrile, hemodynamically stable, Troponin x 1 negative (2) EKG: no significant ST or T wave changes. (3) Solumedrol 125mg, Duoneb, IV Magnesium 2mg Recent Travel: None PAST MEDICAL HISTORY: COPD on home oxygen, CAD s/p cath no stent, HTN, HLD, DM , seizure, SLE, hypothyroid, DANY on CPAP PAST SURGICAL HISTORY: Cath twice (last one in [facility]) with no stent Social History: Smoking: Former smoker quit 2004, smoked for 20-25 yrs Alcohol: Denies Drugs: Denies Family History: Non contributory Allergies gabapentin [From Neurontin] Allergy (Verified 02/16/17 05:20) PALPITATIONS, PASSES OUT Penicillins Allergy (Verified 02/16/17 05:20) TONGUE Swelling phenytoin sodium [From Dilantin] Allergy (Verified 02/16/17 05:20) diarrhea/vomiting phenytoin sodium extended [From Dilantin] Allergy (Verified 02/16/17 05:20) theophylline [Theophylline] Allergy (Verified 02/16/17 05:20) diarrhea,SEIZURES HOME MEDICATIONS: Home Medications Medication Instructions Recorded Atorvastatin Ca [Lipitor] 10 mg PO HS 10/20/15 Biotin [Hard Nails] 5,000 mcg PO DAILY 10/20/15 Carbamazepine Xr [Tegretol XR -] 300 mg PO BID 10/20/15 Folic Acid 1 mg PO DAILY 10/20/15 Levothyroxine [Synthroid -] 50 mcg PO UTDICT 10/20/15 Methotrexate [Mexate -] 12.5 mg PO WEEKLY 10/20/15 Montelukast Na [Singulair -] 10 mg PO DAILY 10/20/15 [place]-3 Fatty Acids [[place]-3] 3 tab PO DAILY 10/20/15 Sertraline HCl [Zoloft -] 100 mg PO DAILY 10/20/15 Topiramate [Trokendi Xr] 100 mg PO BID 10/20/15 Umeclidinium [place] [Incruse 62.5 mcg IH DAILY 10/20/15 Ellipta] Glipizide 10 mg PO BID 08/13/16 Hydroxychloroquine Sulfate 200 mg PO BID 08/13/16 [Plaquenil] Insulin Glargine,Hum.rec.anlog 22 units SQ DAILY 08/13/16 [Lantus (10mL VIAL) -] Albuterol Sulfate [Proair 90 mcg IH PRN PRN 11/19/16 Respiclick] Pramipexole Dihydrochloride 0.5 mg PO BID 11/19/16 [Mirapex -] Furosemide [Lasix -] 1 tab PO DAILY 02/12/17 Losartan Potassium 1 tab PO DAILY 02/12/17 Budesonide/Formeterol Fumarate 2 puff IH BID #1 inhaler 02/13/17 [SYMBICORT 80/4.5mcg -] Guaifenesin AC [Robitussin AC] 10 ml PO Q6H PRN #100 ml MDD 60 02/13/17 Prednisone See Taper PO DAILY 12 Days #42 02/13/17 tablet Tiotropium [place] [Spiriva] 1 puff IH DAILY #1 inh 02/13/17 REVIEW OF SYSTEMS CONSTITUTIONAL: Absent: fever, chills, diaphoresis, generalized weakness, malaise, loss of appetite, weight change HEENT: Absent: rhinorrhea, nasal congestion, throat pain, throat swelling, difficulty swallowing, mouth swelling, ear pain, eye pain, visual changes CARDIOVASCULAR: Present: chest pain Absent:syncope, palpitations, irregular heart rate, lightheadedness, peripheral edema RESPIRATORY: Present: shortness of breath, wheezing, Absent: cough, , dyspnea with exertion, orthopnea, stridor, hemoptysis GASTROINTESTINAL: Absent: abdominal pain, abdominal distension, nausea, vomiting, diarrhea, constipation, melena, hematochezia GENITOURINARY: Absent: dysuria, frequency, urgency, hesitancy, hematuria, flank pain, genital pain MUSCULOSKELETAL: Absent: myalgia, arthralgia, joint swelling, back pain, neck pain SKIN: Absent: rash, itching, pallor HEMATOLOGIC/IMMUNOLOGIC: Absent: easy bleeding, easy bruising, lymphadenopathy, frequent infections ENDOCRINE: Absent: unexplained weight gain, unexplained weight loss, heat intolerance, cold intolerance NEUROLOGIC: Absent: headache, focal weakness or paresthesias, dizziness, unsteady gait, seizure, mental status changes, bladder or bowel incontinence PSYCHIATRIC: Absent: anxiety, depression, suicidal or homicidal ideation, hallucinations. PHYSICAL EXAMINATION Vital Signs - 24 hr 02/16/17 05:20 Temperature 98.3 F Pulse Rate 86 Respiratory 18 Rate Blood Pressure 112/53 O2 Sat by Pulse 99 Oximetry (%) GENERAL: Patient is comfortably sitting in bed, Awake, alert, and fully oriented , in mild respiratory distress,, nasal canula in place. HEAD: Normal with no signs of trauma. EYES: EOM intact, no pallor or icterus. EARS, NOSE, THROAT: Ears normal. Moist mucous membranes. NECK: Supple. LUNGS: B/L Breath sounds equal, decreased breath sounds b/l, occasional wheeze on the Right> Left, and no crackles. HEART: Regular rate and rhythm, normal S1 and S2 with soft systolic murmur. ABDOMEN: Soft, nontender, not distended, normoactive bowel sounds, no guarding, no rebound, no masses. No hepatomegaly or splenomegaly. MUSCULOSKELETAL: Normal range of motion at all joints. No bony deformities or tenderness. No CVA tenderness. UPPER EXTREMITIES: 2+ pulses, warm, well-perfused. No cyanosis. No clubbing. No peripheral edema. LOWER EXTREMITIES: 2+ pulses, warm, well-perfused. No calf tenderness. B/l trace edema. NEUROLOGICAL: No facial droop, Normal speech. Gait not observed. PSYCHIATRIC: Cooperative. Good eye contact. Appropriate mood and affect. SKIN: Warm, dry, normal turgor, no rashes or lesions noted, normal capillary refill. Laboratory Results - last 24 hr 02/16/17 02/16/17 02/16/17 06:00 06:00 06:00 WBC RBC Hgb Hct MCV MCH MCHC RDW Plt Count MPV Neutrophils % Lymphocytes % Monocytes % Eosinophils % Basophils % PT with INR 11.10 INR 0.98 D-Dimer Sodium 142 Potassium 3.8 Chloride 107 Carbon Dioxide 25 Anion Gap 10 BUN 19 H D Creatinine 0.9 Creat Clearance w eGFR > 60 Random Glucose 103 D Calcium 8.3 L Magnesium 1.9 D Total Bilirubin 0.2 D AST 14 L ALT 32 Alkaline Phosphatase 135 H Creatine Kinase 63 Troponin I < 0.02 Total Protein 7.3 Albumin 3.4 Urine Color Urine Appearance Urine pH Ur Specific [place] Urine Protein Urine Glucose (UA) Urine Ketones Urine Blood Urine Nitrite Urine Bilirubin Urine Urobilinogen 02/16/17 02/16/17 02/16/17 06:00 06:06 09:00 WBC 8.9 RBC 4.36 Hgb 13.0 Hct 38.9 MCV 89.3 MCH 29.8 MCHC 33.3 RDW 16.2 H Plt Count 331 MPV 7.9 Neutrophils % 52.5 D Lymphocytes % 37.5 D Monocytes % 7.6 D Eosinophils % 0.6 D Basophils % 1.8 PT with INR INR D-Dimer 233 Sodium Potassium Chloride Carbon Dioxide Anion Gap BUN Creatinine Creat Clearance w eGFR Random Glucose Calcium Magnesium Total Bilirubin AST ALT Alkaline Phosphatase Creatine Kinase Troponin I Total Protein Albumin Urine Color Yellow Urine Appearance Slcloudy Urine pH 5.0 Ur Specific [place] 1.028 Urine Protein Negative Urine Glucose (UA) Negative Urine Ketones Trace H Urine Blood Negative Urine Nitrite Negative Urine Bilirubin Negative Urine Urobilinogen 2.0 H ASSESSMENT/PLAN: Patient is a 61 year old woman with significant Past Medical History of COPD on home oxygen, CAD s/p cath no stent, HTN, HLD, DM, seizure, SLE, hypothyroid , DANY on CPAP presented to the ED with the chief complaint of worsening SOB and dry cough since her discharge 2 days ago. # COPD exacerbation (on home oxygen) likely due to non compliance to her medication On discharge 3days ago, sob and dry cough worsened, was not taking the correct dose of Prednisone. Admit in Med-Surg/Obs Continue IV Solumedrol 60mg Q8H Continue oxygen PRN IV Azithromycin 500mg x 3 days (although she is afebrile, no leukocytosis, trial of antibiotics to see if her symptoms improve) Albuterol PRN, Symbicort BID, Spirva Singulair 10mg PO Daiy Dr. Hyde consult requested Flu negative # Atypical chest pain likely due to bronchitis EKG: no acute ST or T wave changes, Troponin x 1 negative, unlikely ACS. Hence doesn't need tele monitoring Patient has had persistent cough, is on tapering dose of steroid, hence chest pain could be due to bronchitis # CAD s/p cath no stent 07/09/16 stress test: Small and mild reversible anterior perfusion defect; EF 79 % Continue Aspirin 81mg PO Daily # Hypertension- Stable Continue Losartan 50 mg PO daily # Hyperlipidemia Continue Lipitor 10 mg PO HS # Diabetes Mellitus A1c pending, was not done last admission. Levemir 18 U sq (pt reports she takes 18 U only, doesn't take 22U) ISS Finger stick glucose monitoring Watch for hypoglycemic episodes # SLE Continue Hydroxychloroquine 200 mg po BID Hold Methotrexate(takes 12.5 mg of Methotrexate every Tuesday) Continue folic acid 2 mg PO daily # Seizure: no seizure activity at this time Continue Carbamazipine 300mg PO BID # Hypothyroidism Continue Synthroid 50 mcg po daily # DANY on CPAP Continue CPAP (pts own) # Migraines Topiramate 100 mg PO BID # Depression Continue Zoloft 100 mg PO Daily # GERD On Protonix 40mg PO Daily # Morbid Obesity s/p gastric bypass # FEN Not on IV fluids Electrolytes wnl, to be repeated tomorrow Diabetic diet # Prophylaxis For DVT: Heparin 5000 IU TID, early ambulation. For GI: On Protonix 40mg PO Daily. # Medications: Confirmed with the patient. # Code Status: Full Code # Dispo: Admitted in Tele/Obs. Duration of stay unknown. Illness, Investigation and Plan of care explained to the patient. She verbalized understanding. Case discussed with Dr. Thurston. Visit type - Emergency Visit Emergency Visit: Yes ED Registration Date: 02/16/17 Care time: The patient presented to the Emergency Department on the above date and was hospitalized for further evaluation of their emergent condition. - New Patient This patient is new to me today: Yes Date on this admission: 02/16/17 - Critical Care Critical Care patient: No
[2017-02-16] MEDS ORDERED: PATIENT'S OWN MEDICATION (NON-FORMULARY) (Umeclidinium Bromide [Incruse Ellipta] 62.5 MCG) IH SCH (10:45)
[2017-02-16] MEDS ORDERED: METHOTREXATE 2.5 MG TABLET PO SCH ×2 (10:45→13:00)
[2017-02-16] MEDS ORDERED: MONTELUKAST NA 10 MG TABLET ONE (11:56)
[2017-02-16] MEDS ORDERED: FOLIC ACID 1 MG TABLET (FP) ONE (11:56)
[2017-02-16] MEDS ORDERED: carBAMazepine 200 MG TABLET ONE (11:56)
[2017-02-16] MEDS ORDERED: SERTRALINE HCL 50 MG TABLET (FP) ONE (11:56)
[2017-02-16] MEDS ORDERED: TOPIRAMATE 25 MG TABLET (FP) ONE (11:57)
[2017-02-16] MEDS: SERTRALINE HCL 50 MG TABLET (FP) PO SCH (12:00)
[2017-02-16] MEDS: MONTELUKAST NA 10 MG TABLET PO SCH (12:00)
[2017-02-16] MEDS: FOLIC ACID 1 MG TABLET (FP) PO SCH (12:00)
[2017-02-16] MEDS: TOPIRAMATE 100 MG TABLET PO SCH ×2 (12:05→22:18)
[2017-02-16] MEDS: BUDESONIDE/FORMETEROL FUMARATE 80/4.5 mcg INHALER IH SCH ×2 (12:15→22:20)
--- NOTE | 2017-02-16 13:04 | PN ---
Teaching Attending Note Name of Resident: Darby Addison ATTENDING PHYSICIAN STATEMENT I saw and evaluated the patient. I reviewed the resident's note and discussed the case with the resident. I agree with the resident's findings and plan as documented. SUBJECTIVE: The patient is a 61 year old female with a significant past medical history of COPD (on 2L of O2 at home), CHF, diabetes, hypertension, hyperlipidemia, and hypothyroidism ,SLE who presents to the ED. complaint of recurrent dyspnea and chest tightness with nonproductive cough. As per patient, her was sick at home with URI then she started having the same symptoms except she developed hoarseness. Denies having any fever or chills. Having difficulty breathing, is on home oxygen of 2 liters and uses CPAP at home. Patient was recently discharged from the hospital. The patient states she has been compliant with her medications except she reduced her prednisone from 60 to 20mg daily. OBJECTIVE: Vital Signs Temperature 98 F 02/16/17 09:20 Pulse Rate 66 02/16/17 09:20 Respiratory Rate 18 02/16/17 05:20 Blood Pressure 139/68 02/16/17 09:20 O2 Sat by Pulse Oximetry (%) 99 02/16/17 09:20 CBCD WBC 8.9 K/mm3 (4.0-10.0) 02/16/17 06:06 RBC 4.36 M/mm3 (3.60-5.2) 02/16/17 06:06 Hgb 13.0 GM/dL (10.7-15.3) 02/16/17 06:06 Hct 38.9 % (32.4-45.2) 02/16/17 06:06 MCV 89.3 fl (80-96) 02/16/17 06:06 MCHC 33.3 g/dl (32.0-36.0) 02/16/17 06:06 RDW 16.2 % (11.6-15.6) H 02/16/17 06:06 Plt Count 331 K/MM3 (134-434) 02/16/17 06:06 MPV 7.9 fl (7.5-11.1) 02/16/17 06:06 CMP Sodium 142 mmol/L (136-145) 02/16/17 06:00 Potassium 3.8 mmol/L (3.5-5.1) 02/16/17 06:00 Chloride 107 mmol/L (98-107) 02/16/17 06:00 Carbon Dioxide 25 mmol/L (21-32) 02/16/17 06:00 Anion Gap 10 (8-16) 02/16/17 06:00 BUN 19 mg/dL (7-18) H D 02/16/17 06:00 Creatinine 0.9 mg/dL (0.55-1.02) 02/16/17 06:00 Creat Clearance w eGFR > 60 (>60) 02/16/17 06:00 Random Glucose 103 mg/dL (74-106) D 02/16/17 06:00 Calcium 8.3 mg/dL (8.5-10.1) L 02/16/17 06:00 Total Bilirubin 0.2 mg/dL (0.2-1.0) D 02/16/17 06:00 AST 14 U/L (15-37) L 02/16/17 06:00 ALT 32 U/L (12-78) 02/16/17 06:00 Alkaline Phosphatase 135 U/L (45-117) H 02/16/17 06:00 Total Protein 7.3 g/dl (6.4-8.2) 02/16/17 06:00 Albumin 3.4 g/dl (3.4-5.0) 02/16/17 06:00 CARDIAC ENZYMES Creatine Kinase 63 IU/L (26-192) 02/16/17 06:00 Troponin I < 0.02 ng/ml (0.00-0.05) 02/16/17 06:00 Current Medications Generic Name Dose Route Start Last Admin Trade Name Freq PRN Reason Stop Dose Admin Albuterol Sulfate 1 amp 02/16/17 12:00 Ventolin 0.083% Nebulizer Soln - NEB QIDR DONTA Atorvastatin Calcium 10 mg 02/16/17 22:00 Lipitor - PO HS [facility] Budesonide/Formoterol Fumarate 2 puff 02/16/17 10:45 02/16/17 12:15 Symbicort 80/4.5mcg - IH Not Given BID [facility] Carbamazepine 300 mg 02/16/17 10:45 02/16/17 12:00 Tegretol Xr - PO 300 mg BID [facility] Administration Folic Acid 1 mg 02/16/17 10:45 02/16/17 12:00 Folic Acid - PO 1 mg DAILY [facility] Administration Furosemide 40 mg 02/16/17 10:45 Lasix - PO DAILY [facility] Guaifenesin/Codeine Phosphate 10 ml 02/16/17 10:33 Robitussin Ac - PO Q6H PRN COUGH Heparin Sodium (Porcine) 5,000 unit 02/16/17 18:00 Heparin - SQ Q8H-IV [facility] Hydroxychloroquine Sulfate 200 mg 02/16/17 10:45 Plaquenil - PO BID [facility] Insulin Aspart 1 vial 02/16/17 11:00 Novolog Vial Sliding Scale - SQ ACHS [facility] Protocol Insulin Detemir 18 units 02/16/17 12:00 Levemir Vial SQ DAILY@0700 [facility] Levothyroxine Sodium 50 mcg 02/17/17 07:00 Synthroid - PO AM [facility] Losartan Potassium 50 mg 02/16/17 10:45 Cozaar - PO DAILY [facility] Methotrexate 12.5 mg 02/16/17 13:00 Mexate - PO We@1000 [facility] Methylprednisolone Sodium Succinate 60 mg 02/16/17 22:00 Solu-Medrol - IVPB BID [facility] Montelukast Sodium 10 mg 02/16/17 10:45 02/16/17 12:00 Singulair - PO 10 mg DAILY [facility] Administration Non-Formulary Medication 5,000 mcg 02/17/17 10:00 Biotin [Hard Nails] PO DAILY [facility] Non-Formulary Medication 100 mg 02/16/17 10:45 Topiramate [Trokendi Xr] PO BID [facility] Non-Formulary Medication 62.5 mcg 02/16/17 10:45 Umeclidinium [place] [Incruse Ellipta] IH DAILY [facility] [place]-7-Emox Ethyl Esters 3 gm 02/16/17 10:45 Lovaza - PO DAILY [facility] Pramipexole Dihydrochloride 0.5 mg 02/16/17 10:45 Mirapex - PO BID [facility] Sertraline HCl 100 mg 02/16/17 10:45 02/16/17 12:00 Zoloft - PO 100 mg DAILY [facility] Administration Tiotropium [place] 1 puff 02/16/17 10:45 Spiriva - IH DAILY [facility] Home Medications Medication Instructions Recorded Atorvastatin Ca [Lipitor] 10 mg PO HS 10/20/15 Biotin [Hard Nails] 5,000 mcg PO DAILY 10/20/15 Carbamazepine Xr [Tegretol XR -] 300 mg PO BID 10/20/15 Folic Acid 1 mg PO DAILY 10/20/15 Levothyroxine [Synthroid -] 50 mcg PO UTDICT 10/20/15 Methotrexate [Mexate -] 12.5 mg PO WEEKLY 10/20/15 Montelukast Na [Singulair -] 10 mg PO DAILY 10/20/15 [place]-3 Fatty Acids [[place]-3] 3 tab PO DAILY 10/20/15 Sertraline HCl [Zoloft -] 100 mg PO DAILY 10/20/15 Topiramate [Trokendi Xr] 100 mg PO BID 10/20/15 Umeclidinium [place] [Incruse 62.5 mcg IH DAILY 10/20/15 Ellipta] Glipizide 10 mg PO BID 08/13/16 Hydroxychloroquine Sulfate 200 mg PO BID 08/13/16 [Plaquenil] Insulin Glargine,Hum.rec.anlog 22 units SQ DAILY 08/13/16 [Lantus (10mL VIAL) -] Albuterol Sulfate [Proair 90 mcg IH PRN PRN 11/19/16 Respiclick] Pramipexole Dihydrochloride 0.5 mg PO BID 11/19/16 [Mirapex -] Furosemide [Lasix -] 1 tab PO DAILY 02/12/17 Losartan Potassium 1 tab PO DAILY 02/12/17 Budesonide/Formeterol Fumarate 2 puff IH BID #1 inhaler 02/13/17 [SYMBICORT 80/4.5mcg -] Guaifenesin AC [Robitussin AC] 10 ml PO Q6H PRN #100 ml MDD 60 02/13/17 Prednisone See Taper PO DAILY 12 Days #42 02/13/17 tablet Tiotropium [place] [Spiriva] 1 puff IH DAILY #1 inh 02/13/17 PE: Chest: diminished air entry BL, No wheezing or rails. Heart: S1S2 positive, SEM2/6 rest of PE per resident's note CXR: Atelectatic changes, no infiltrate. Report reviewed ASSESSMENT AND PLAN: Patient is a 61 year old woman with significant Past Medical History of COPD on home oxygen, CAD s/p cath with no stents, HTN, HLD, DM, seizure, SLE, hypothyroid, DANY on CPAP presented to the ED c/o worsening of SOB with difficulty breathing, dry cough since her discharge 2 days ago and developed hoarseness. # Acute exacerbation of chronic obstructive pulmonary disease (COPD), will order Solu medrol 60mg iv q6hr,pulmonary consult, Zithromax IV 500mg daily x 3 days, Check for RSV, check for rapid flu., continue home Cpap, spiriva, neb tx, # Atypical chest pain r/o ACS, troponin 1st set negative CEq6 x1 more set, EKG No ST elevation or depression. # Hx of Seizure continue home meds # Hx of DM continue home meds #Hx of Hypothyroidism continue Synthroid # Hx of SLE (systemic lupus erythematosus) # Hx of diastoic CHF (congestive heart failure) # hx of HLD continue home meds # Hx of Depression continue home meds
--- NOTE | 2017-02-16 13:16 | EKG ---
Test Reason : Blood Pressure : / mmHG Vent. Rate : 076 BPM Atrial Rate : 076 BPM P-R Int : 154 ms QRS Dur : 070 ms QT Int : 402 ms P-R-T Axes : 027 -22 044 degrees QTc Int : 452 ms NORMAL SINUS RHYTHM VOLTAGE CRITERIA FOR LEFT VENTRICULAR HYPERTROPHY ABNORMAL ECG WHEN COMPARED WITH ECG OF 11-FEB-2017 13:53, NO SIGNIFICANT CHANGE WAS FOUND Confirmed by RADHA PINZON MD ([id number]) on 02/16/2017 1:15:38 PM Referred By: Confirmed By:RADHA PINZON MD
[2017-02-16] MEDS: TIOTROPIUM BROMIDE 18 MCG/INH (DEVICE W/ 5 CAPSULES) IH SCH (13:51)
[2017-02-16] MEDS: HYDROXYCHLOROQUINE SO4 200 MG TABLET (FP) PO SCH ×2 (14:00→22:18)
[2017-02-16] MEDS: PRAMIPEXOLE DIHYDROCHLORIDE 0.5 MG TABLET PO SCH ×2 (14:00→22:18)
[2017-02-16] MEDS: LOSARTAN POTASSIUM 50 MG TABLET (FP) PO SCH (14:00)
[2017-02-16] MEDS: AZITHROMYCIN IVPB 500 MG in DEXTROSE 5%-WATER - 250 ML IVPB SCH (14:00)
[2017-02-16] MEDS: INSULIN DETEMIR 100 UNITS/ML MDV SQ SCH (14:00)
[2017-02-16] MEDS ORDERED: methylPREDNISolone NA SUCC 125 MG/2 ML VIAL IVPB SCH ×2 (14:00→22:00)
[2017-02-16] MEDS: ALBUTEROL SO4 0.083% IH SOL 2.5 MG/3 ML VIAL.NEB. NEB SCH ×3 (14:00→23:54)
[2017-02-16] MEDS: OMEGA-3 ACID ETHYL ESTERS (FATTY-ACIDS) 1 GM CAPSULE (FP) PO SCH (14:00)
[2017-02-16] MEDS: FUROSEMIDE 40 MG TABLET (FP) PO SCH (14:00)
[2017-02-16] MEDS: INSULIN SLIDING SCALE (NOVOLOG) 1 VIAL SQ SCH ×3 (14:00→22:18)
[2017-02-16] MEDS ORDERED: FUROSEMIDE 40 MG TABLET (FP) ONE (14:04)
[2017-02-16] MEDS ORDERED: ALBUTEROL SO4 0.083% IH SOL 2.5 MG/3 ML VIAL.NEB. NEB ONE (14:04)
[2017-02-16] MEDS ORDERED: AZITHROMYCIN IVPB 250 ML IVPB ONE (14:05)
[2017-02-16] MEDS ORDERED: LOSARTAN POTASSIUM 25 MG TABLET ONE (14:05)
[2017-02-16] MEDS ORDERED: INSULIN REGULAR HUMAN 100 UNITS/ML *VIAL ONE (14:06)
[2017-02-16] MEDS ORDERED: INSULIN DETEMIR 100 UNITS/ML MDV SQ ONE (14:07)
--- NOTE | 2017-02-16 15:16 | CON.PULM ---
Consult Consult Specialty:: PULMONARY Referred by:: FORTINO Reason for Consultation:: SOB/COUGH - History of Present Illness Chief Complaint: SOB/COUGH History of Present Illness: The patient is a 61 year old female with a significant past medical history of COPD (on 2L of O2 at home), CHF, diabetes, hypertension, hyperlipidemia, and hypothyroidism who presents to the ED s/p discharge from 3-day admission for COPD exacerbation on 02/11/17 for complaint of recurrent dyspnea and chest tightness with constant nonproductive cough.. She also reports some numbness to right upper chest. The patient states she has been compliant with her medications except she inadvertently reduced her prednisone from 60 to 20mg daily.She reports a dry cough. She reports her last dose of prednisone was yesterday. She reportedly used her inhaler just prior to presentation, however, states she has run out of nebulizer solution at home. She dpoes not smoke and does not have any pets in the house. Her was recently ill with a URI. 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 No: Alzheimer's Cardio/Vascular: No: AFIB Pulmonary: Yes: Asthma, COPD, O2 Dependent, Sleep Apnea, Other (uses NIPPV at night) Gastrointestinal: No: Ascites Hepatobiliary: No: Cirrhosis Reproductive: Yes: Postmenopausal ...LMP: 03/18/01 Heme/Onc: No: Anemia Rheumatology: Yes: Lupus Endocrine: Yes: Diabetes Mellitus - Past Surgical History Past Surgical History: Yes: Cataract Removal, Cholecystectomy, Joint Replacement (Right total hip replacement), Tonsillectomy - Alcohol/Substance Use Hx Alcohol Use: No History of Substance Use: reports: None - Smoking History Smoking history: Unknown if ever smoked Have you smoked in the past 12 months: No Aproximately how many cigarettes per day: 0 If you are a former smoker, when did you quit?: 15YRS AGO - Social History Usual Living Arrangement: With Spouse ADL: Independent Place of : [facility] History of Recent Travel: No Home Medications - Allergies Allergies/Adverse Reactions: Allergies Allergy/AdvReac Type Severity Reaction Status Date / Time gabapentin [From Neurontin] Allergy PALPITATIONS, Verified 02/16/17 05:20 PASSES OUT Penicillins Allergy TONGUE Verified 02/16/17 05:20 Swelling phenytoin sodium Allergy diarrhea/vo Verified 02/16/17 05:20 [From Dilantin] miting phenytoin sodium extended Allergy Verified 02/16/17 05:20 [From Dilantin] theophylline [Theophylline] Allergy diarrhea,SE Verified 02/16/17 05:20 IZURES - Home Medications Home Medications: Ambulatory Orders Atorvastatin Ca [Lipitor] 10 mg PO HS 10/20/15 Biotin [Hard Nails] 5,000 mcg PO DAILY 10/20/15 Carbamazepine Xr [Tegretol XR -] 300 mg PO BID 10/20/15 Folic Acid 1 mg PO DAILY 10/20/15 Levothyroxine [Synthroid -] 50 mcg PO UTDICT 10/20/15 Methotrexate [Mexate -] 12.5 mg PO WEEKLY 10/20/15 Montelukast Na [Singulair -] 10 mg PO DAILY 10/20/15 [place]-3 Fatty Acids [[place]-3] 3 tab PO DAILY 10/20/15 Sertraline HCl [Zoloft -] 100 mg PO DAILY 10/20/15 Topiramate [Trokendi Xr] 100 mg PO BID 10/20/15 Umeclidinium [place] [Incruse Ellipta] 62.5 mcg IH DAILY 10/20/15 Glipizide 10 mg PO BID 08/13/16 Hydroxychloroquine Sulfate [Plaquenil] 200 mg PO BID 08/13/16 Insulin Glargine,Hum.rec.anlog [Lantus (10mL VIAL) -] 22 units SQ DAILY Albuterol Sulfate [Proair Respiclick] 90 mcg IH PRN PRN 11/19/16 Pramipexole Dihydrochloride [Mirapex -] 0.5 mg PO BID 11/19/16 Furosemide [Lasix -] 1 tab PO DAILY 02/12/17 Losartan Potassium 1 tab PO DAILY 02/12/17 Budesonide/Formeterol Fumarate [SYMBICORT 80/4.5mcg -] 2 puff IH BID #1 inhaler 02/13/17 Guaifenesin AC [Robitussin AC] 10 ml PO Q6H PRN #100 ml MDD 60 02/13/17 Prednisone See Taper PO DAILY 12 Days #42 tablet 02/13/17 Tiotropium [place] [Spiriva] 1 puff IH DAILY #1 inh 02/13/17 Family Disease History - Family Disease History Family History: Unremarkable Review of Systems - Review of Systems Constitutional: reports: Loss of Appetite. denies: Fever Eyes: denies: Blurred Vision HENT: denies: Difficult Swallowing Neck: denies: Decreased ROM Cardiovascular: reports: Chest Pain, Shortness of Breath. denies: Palpitations Respiratory: reports: Cough, Exercise Intolerance, Snoring, SOB, SOB on Exertion , Wheezing. denies: Hemoptysis, Orthopnea Gastrointestinal: denies: Abdominal Pain Genitourinary: denies: Burning Breasts: reports: No Symptoms Reported Musculoskeletal: reports: No Symptoms Integumentary: reports: No Symptoms Neurological: reports: Change in Speech (hoarseness of voice) Physical Exam Vital Sings: Vital Signs Temperature 98 F 02/16/17 09:20 Pulse Rate 91 H 02/16/17 13:20 Respiratory Rate 18 02/16/17 05:20 Blood Pressure 133/62 02/16/17 13:20 O2 Sat by Pulse Oximetry (%) 97 02/16/17 13:20 Constitutional: Yes: Calm Eyes: Yes: EOM Intact HENT: Yes: Normocephalic Neck: Yes: Trachea Midline Cardiovascular: Yes: Regular Rate and Rhythm, S1, S2 Respiratory: Yes: Diminished, Poor Air Entry, Other (no stridor) ...Clubbing: No Gastrointestinal: Yes: Normal Bowel Sounds, Abdomen, Obese Edema: No Integumentary: Yes: WNL Psychiatric: Yes: Alert Labs: CBC, BMP 02/16/17 06:06 02/16/17 06:00 rest reviewed Imaging - Results Chest X-ray: Report Reviewed, Image Reviewed Cat Scan: Report Reviewed, Image Reviewed EKG: Report Reviewed, Image Reviewed Problem List - Problems (1) SLE (systemic lupus erythematosus) Code(s): M32.9 - SYSTEMIC LUPUS ERYTHEMATOSUS, UNSPECIFIED (2) Acute exacerbation of chronic obstructive pulmonary disease (COPD) Code(s): J44.1 - CHRONIC OBSTRUCTIVE PULMONARY DISEASE W (ACUTE) EXACERBATION (3) Atypical chest pain Code(s): R07.89 - OTHER CHEST PAIN (4) COPD (chronic obstructive pulmonary disease) Code(s): J44.9 - CHRONIC OBSTRUCTIVE PULMONARY DISEASE, UNSPECIFIED Qualifiers: COPD type: unspecified COPD Qualified Code(s): J44.9 - Chronic obstructive pulmonary disease, unspecified (5) CHF (congestive heart failure) Code(s): I50.9 - HEART FAILURE, UNSPECIFIED (6) CKD (chronic kidney disease) stage 3, GFR 30-59 ml/min Code(s): N18.3 - CHRONIC KIDNEY DISEASE, STAGE 3 (MODERATE) Assessment/Plan RE-ADMITTED W ACUTE EXACERBATION COPD/DYSPHONIA/NEW ELEVATION OF LEFT HEMIDIAPHRAGM SLE/RECENT BARIATRIC SURG (?CAUSE OF LEFT LUCILA ELEVATION) RESTART STEROIDS/BRONCHODILATORS/TRIAL OF ANTIBIOTICS CONTINUE IMMUNOSUPPRESANTS FOR SLE NIPPV/O2 SUPPLEMENTATION WILL FOLLOW Eduin HART MD
[2017-02-16 16:09] VITALS: BMI 63.1
[2017-02-16] MEDS ORDERED: HEPARIN NA (PORCINE) 5,000 UNITS/ML 1ML VIAL SQ SCH (18:00)
[2017-02-16] MEDS ORDERED: INSULIN (NOVOLOG) ASPART 100 UNITS/ML 10ML VIAL ONE (19:00)
[2017-02-16] MEDS ORDERED: PT OWN MED DRAWER 7, Y5N ONE ×3 (19:01→21:48)
[2017-02-16] MEDS: ATORVASTATIN CA 10 MG TABLET (FP) PO SCH (22:18)
[2017-02-16] MEDS: methylPREDNISolone NA SUCC 125 MG/2 ML VIAL IVPUSH SCH (22:19)
[2017-02-17] MEDS: INSULIN SLIDING SCALE (NOVOLOG) 1 VIAL SQ SCH ×4 (06:44→23:02)
[2017-02-17] MEDS: INSULIN DETEMIR 100 UNITS/ML MDV SQ SCH (06:44)
[2017-02-17] MEDS: methylPREDNISolone NA SUCC 125 MG/2 ML VIAL IVPUSH SCH ×4 (06:44→22:59)
[2017-02-17] MEDS: HEPARIN NA (PORCINE) 5,000 UNITS/ML 1ML VIAL SQ SCH ×3 (06:44→22:59)
[2017-02-17] MEDS: LEVOTHYROXINE NA 50 MCG TABLET (FP) PO SCH (06:45)
[2017-02-17] MEDS: ALBUTEROL SO4 0.083% IH SOL 2.5 MG/3 ML VIAL.NEB. NEB SCH ×4 (06:53→23:19)
[2017-02-17] MEDS ORDERED: PT OWN MED DRAWER 7, Y5N ONE (07:00)
[2017-02-17] MEDS ORDERED: INSULIN (NOVOLOG) ASPART 100 UNITS/ML 10ML VIAL ONE ×2 (07:01→11:43)
[2017-02-17] MEDS: guaiFENesin/CODEINE 10 ML UNIT-DOSE CUPS PO PRN ×2 (07:05→13:58)
[2017-02-17 08:36] LABS: BASO % 0.5 % (0-2.0); EOS % 0.4 % (0-4.5); HEMATOCRIT 38.1 % (32.4-45.2); HEMOGLOBIN 12.2 GM/dL (10.7-15.3); LYMPH % 13.7 % (8-40); MCH 28.9 pg (25.7-33.7); MCHC 32.1 g/dl (32.0-36.0); MONO % 4.5 % (3.8-10.2); NEUT % 80.9 % (42.8-82.8); PLATELET COUNT 356 K/MM3 (134-434); RBC 4.24 M/mm3 (3.60-5.2); RDW 16.6 % (11.6-15.6); WHITE BLOOD COUNT 12.1 K/mm3 (4.0-10.0)
[2017-02-17 09:04] LABS: ANION GAP 7 (8-16); BLOOD UREA NITROGEN 16 mg/dL (7-18); CALCIUM 9.3 mg/dL (8.5-10.1); CHLORIDE 105 mmol/L (98-107); CO2 28 mmol/L (21-32); GLUCOSE,RANDOM 149 mg/dL (74-106); MAGNESIUM 2.5 mg/dL (1.8-2.4); POTASSIUM 4.3 mmol/L (3.5-5.1); SODIUM 140 mmol/L (136-145)
[2017-02-17] MEDS ORDERED: BIOTIN 5000 MCG PO SCH (10:00)
[2017-02-17] MEDS: SERTRALINE HCL 50 MG TABLET (FP) PO SCH (10:18)
[2017-02-17] MEDS: FOLIC ACID 1 MG TABLET (FP) PO SCH (10:18)
[2017-02-17] MEDS: FUROSEMIDE 40 MG TABLET (FP) PO SCH (10:18)
[2017-02-17] MEDS: MONTELUKAST NA 10 MG TABLET PO SCH (10:18)
[2017-02-17] MEDS: TOPIRAMATE 100 MG TABLET PO SCH ×2 (10:19→23:00)
[2017-02-17] MEDS: LOSARTAN POTASSIUM 50 MG TABLET (FP) PO SCH (10:19)
[2017-02-17] MEDS: BUDESONIDE/FORMETEROL FUMARATE 80/4.5 mcg INHALER IH SCH ×2 (10:20→22:58)
[2017-02-17] MEDS: AZITHROMYCIN IVPB 500 MG in DEXTROSE 5%-WATER - 250 ML IVPB SCH (10:20)
[2017-02-17] MEDS: TIOTROPIUM BROMIDE 18 MCG/INH (DEVICE W/ 5 CAPSULES) IH SCH (10:22)
[2017-02-17] MEDS: HYDROXYCHLOROQUINE SO4 200 MG TABLET (FP) PO SCH ×2 (10:46→22:59)
[2017-02-17] MEDS: PRAMIPEXOLE DIHYDROCHLORIDE 0.5 MG TABLET PO SCH ×2 (10:48→23:00)
[2017-02-17] MEDS: OMEGA-3 ACID ETHYL ESTERS (FATTY-ACIDS) 1 GM CAPSULE (FP) PO SCH (10:48)
--- NOTE | 2017-02-17 13:12 | PN ---
Progress Note, Physician History of Present Illness: PULMONARY ALERT,FEELING BETTER,LESS DYSPNEIC - Current Medication List Current Medications: Active Medications Albuterol Sulfate (Ventolin 0.083% Nebulizer Soln -) 1 amp NEB QIDR [facility] Last Admin: 02/17/17 11:07 Dose: 1 amp Atorvastatin Calcium (Lipitor -) 10 mg PO HS [facility] Last Admin: 02/16/17 22:18 Dose: 10 mg Budesonide/Formoterol Fumarate (Symbicort 80/4.5mcg -) 2 puff IH BID [facility] Last Admin: 02/17/17 10:20 Dose: 2 puff Carbamazepine (Tegretol Xr -) 300 mg PO BID [facility] Last Admin: 02/17/17 10:47 Dose: 300 mg Folic Acid (Folic Acid -) 1 mg PO DAILY [facility] Last Admin: 02/17/17 10:18 Dose: 1 mg Furosemide (Lasix -) 40 mg PO DAILY [facility] Last Admin: 02/17/17 10:18 Dose: 40 mg Guaifenesin/Codeine Phosphate (Robitussin Ac -) 10 ml PO Q6H PRN PRN Reason: COUGH Last Admin: 02/17/17 07:05 Dose: 10 ml Heparin Sodium (Porcine) (Heparin -) 5,000 unit SQ TID [facility] Last Admin: 02/17/17 06:44 Dose: 5,000 unit Hydroxychloroquine Sulfate (Plaquenil -) 200 mg PO BID [facility] Last Admin: 02/17/17 10:46 Dose: 200 mg Azithromycin 500 mg/ Dextrose 250 mls @ 250 mls/hr IVPB DAILY [facility] Stop: 02/18/17 13:30 Last Admin: 02/17/17 10:20 Dose: 250 mls/hr Insulin Aspart (Novolog Vial Sliding Scale -) 1 vial SQ ACHS [facility] PRN Reason: Protocol Last Admin: 02/17/17 12:03 Dose: 2 units Insulin Detemir (Levemir Vial) 18 units SQ DAILY@0700 [facility] Last Admin: 02/17/17 06:44 Dose: 18 units Levothyroxine Sodium (Synthroid -) 50 mcg PO AM [facility] Last Admin: 02/17/17 06:45 Dose: 50 mcg Losartan Potassium (Cozaar -) 50 mg PO DAILY [facility] Last Admin: 02/17/17 10:19 Dose: 50 mg Methotrexate (Mexate -) 12.5 mg PO We@1000 [facility] Last Admin: 02/16/17 14:00 Dose: 12.5 mg Methylprednisolone Sodium Succinate (Solu-Medrol -) 60 mg IVPUSH TID [facility] Last Admin: 02/17/17 06:44 Dose: 60 mg Montelukast Sodium (Singulair -) 10 mg PO DAILY [facility] Last Admin: 02/17/17 10:18 Dose: 10 mg [id number] Ethyl Esters (Lovaza -) 3 gm PO DAILY [facility] Last Admin: 02/17/17 10:48 Dose: 3 gm Pramipexole Dihydrochloride (Mirapex -) 0.5 mg PO BID [facility] Last Admin: 02/17/17 10:48 Dose: 0.5 mg Sertraline HCl (Zoloft -) 100 mg PO DAILY [facility] Last Admin: 02/17/17 10:18 Dose: 100 mg Tiotropium [place] (Spiriva -) 1 puff IH DAILY [facility] Last Admin: 02/17/17 10:22 Dose: 1 puff Topiramate (Topamax -) 100 mg PO BID [facility] Last Admin: 02/17/17 10:19 Dose: 100 mg - Objective Vital Signs: Vital Signs Temperature 98.6 F 02/17/17 09:00 Pulse Rate 92 H 02/17/17 11:08 Respiratory Rate 18 02/17/17 09:00 Blood Pressure 153/79 02/17/17 09:00 O2 Sat by Pulse Oximetry (%) 95 02/17/17 11:08 Constitutional: Yes: Well Nourished, Calm Eyes: Yes: WNL HENT: Yes: WNL Neck: Yes: WNL Cardiovascular: Yes: Regular Rate and Rhythm, S1, S2 Respiratory: Yes: Wheezes (FEW WHEEZES) Gastrointestinal: Yes: Normal Bowel Sounds, Soft Extremities: Yes: WNL Edema: No Labs: CBC, BMP 02/17/17 08:00 02/17/17 08:00 INR, PTT INR 0.98 (0.82-1.09) 02/16/17 06:00 Assessment/Plan Problem List - Problems (1) SLE (systemic lupus erythematosus) Code(s): M32.9 - SYSTEMIC LUPUS ERYTHEMATOSUS, UNSPECIFIED (2) Acute exacerbation of chronic obstructive pulmonary disease (COPD) Code(s): J44.1 - CHRONIC OBSTRUCTIVE PULMONARY DISEASE W (ACUTE) EXACERBATION (3) Atypical chest pain Code(s): R07.89 - OTHER CHEST PAIN (4) COPD (chronic obstructive pulmonary disease) Code(s): J44.9 - CHRONIC OBSTRUCTIVE PULMONARY DISEASE, UNSPECIFIED Qualifiers: COPD type: unspecified COPD Qualified Code(s): J44.9 - Chronic obstructive pulmonary disease, unspecified (5) CHF (congestive heart failure) Code(s): I50.9 - HEART FAILURE, UNSPECIFIED (6) CKD (chronic kidney disease) stage 3, GFR 30-59 ml/min Code(s): N18.3 - CHRONIC KIDNEY DISEASE, STAGE 3 (MODERATE) Assessment/Plan ACUTE EXACERBATION COPD DYSPHONIA NEW ELEVATION OF LEFT HEMIDIAPHRAGM SLE RECENT BARIATRIC SURG (?CAUSE OF LEFT LUCILA ELEVATION) STEROID TAPER BRONCHODILATORS TRIAL OF ANTIBIOTICS IMMUNOSUPPRESANTS FOR SLE NIPPV/O2 SUPPLEMENTATION DR DAI
--- NOTE | 2017-02-17 13:51 | CONSULT ---
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 No: Alzheimer's Cardio/Vascular: No: AFIB Pulmonary: Yes: Asthma, COPD, O2 Dependent, Sleep Apnea, Other (uses NIPPV at night) Gastrointestinal: No: Ascites Hepatobiliary: No: Cirrhosis ...LMP: 03/18/01 Rheumatology: Yes: Lupus Endocrine: Yes: Diabetes Mellitus - Past Surgical History Past Surgical History: Yes: Cataract Removal, Cholecystectomy, Joint Replacement (Right total hip replacement), Tonsillectomy - Alcohol/Substance Use Hx Alcohol Use: No History of Substance Use: reports: None - Smoking History Smoking history: Unknown if ever smoked Have you smoked in the past 12 months: No Aproximately how many cigarettes per day: 0 If you are a former smoker, when did you quit?: 15YRS AGO - Social History Usual Living Arrangement: With Spouse ADL: Independent History of Recent Travel: No Home Medications - Allergies Allergies/Adverse Reactions: Allergies Allergy/AdvReac Type Severity Reaction Status Date / Time gabapentin [From Neurontin] Allergy PALPITATIONS, Verified 02/16/17 05:20 PASSES OUT Penicillins Allergy TONGUE Verified 02/16/17 05:20 Swelling phenytoin sodium Allergy diarrhea/vo Verified 02/16/17 05:20 [From Dilantin] miting phenytoin sodium extended Allergy Verified 02/16/17 05:20 [From Dilantin] theophylline [Theophylline] Allergy diarrhea,SE Verified 02/16/17 05:20 IZURES - Home Medications Home Medications: Ambulatory Orders Atorvastatin Ca [Lipitor] 10 mg PO HS 10/20/15 Biotin [Hard Nails] 5,000 mcg PO DAILY 10/20/15 Carbamazepine Xr [Tegretol XR -] 300 mg PO BID 10/20/15 Folic Acid 1 mg PO DAILY 10/20/15 Levothyroxine [Synthroid -] 50 mcg PO UTDICT 10/20/15 Methotrexate [Mexate -] 12.5 mg PO WEEKLY 10/20/15 Montelukast Na [Singulair -] 10 mg PO DAILY 10/20/15 [place]-3 Fatty Acids [[place]-3] 3 tab PO DAILY 10/20/15 Sertraline HCl [Zoloft -] 100 mg PO DAILY 10/20/15 Topiramate [Trokendi Xr] 100 mg PO BID 10/20/15 Umeclidinium [place] [Incruse Ellipta] 62.5 mcg IH DAILY 10/20/15 Glipizide 10 mg PO BID 08/13/16 Hydroxychloroquine Sulfate [Plaquenil] 200 mg PO BID 08/13/16 Insulin Glargine,Hum.rec.anlog [Lantus (10mL VIAL) -] 22 units SQ DAILY Albuterol Sulfate [Proair Respiclick] 90 mcg IH PRN PRN 11/19/16 Pramipexole Dihydrochloride [Mirapex -] 0.5 mg PO BID 11/19/16 Furosemide [Lasix -] 1 tab PO DAILY 02/12/17 Losartan Potassium 1 tab PO DAILY 02/12/17 Budesonide/Formeterol Fumarate [SYMBICORT 80/4.5mcg -] 2 puff IH BID #1 inhaler 02/13/17 Guaifenesin AC [Robitussin AC] 10 ml PO Q6H PRN #100 ml MDD 60 02/13/17 Prednisone See Taper PO DAILY 12 Days #42 tablet 02/13/17 Tiotropium [place] [Spiriva] 1 puff IH DAILY #1 inh 02/13/17 Review of Systems - Review of Systems Constitutional: denies: Chills, Fever HENT: reports: No Symptoms Cardiovascular: denies: Chest Pain Respiratory: reports: SOB Gastrointestinal: denies: Abdominal Pain Pain Intensity: 0 Physical Exam Vital Signs: Vital Signs Temperature 98.6 F 02/17/17 09:00 Pulse Rate 92 H 02/17/17 11:08 Respiratory Rate 18 02/17/17 09:00 Blood Pressure 153/79 02/17/17 09:00 O2 Sat by Pulse Oximetry (%) 95 02/17/17 11:08 Constitutional: Yes: Calm Neck: Yes: Supple Cardiovascular: Yes: WNL Respiratory: Yes: Diminished Gastrointestinal: Yes: Soft. No: Tenderness Neurological: Yes: Alert, Oriented Labs: CBC, BMP 02/17/17 08:00 02/17/17 08:00 Imaging - Results Cat Scan: Report Reviewed, Image Reviewed Problem List - Problems (1) Acute exacerbation of chronic obstructive pulmonary disease (COPD) Code(s): J44.1 - CHRONIC OBSTRUCTIVE PULMONARY DISEASE W (ACUTE) EXACERBATION Assessment/Plan No dysphagia or difficulty from the lap band Continue treatment per pulmonary Can follow up for band adjustment once optimized
[2017-02-17] MEDS: ACETAMINOPHEN 325 MG TABLET (FP) PO PRN (13:57)
--- NOTE | 2017-02-17 16:56 | PN ---
Teaching Attending Note Name of Resident: Morgan Adams ATTENDING PHYSICIAN STATEMENT Time of evaluation: 10:20 AM I saw and evaluated the patient. I reviewed the resident's note and discussed the case with the resident. I agree with the resident's findings and plan as documented. SUBJECTIVE: patient seen and examined. Just walked with respiratory therapist, coughing and wheezy with dyspnea. Later sat down with nebulizer treatment. No new complaints otherwise. OBJECTIVE: Vital Signs Period Temp Pulse Resp BP Sys/Oconnell Pulse Ox Last 24 Hr 98.0 F-99 F 63-92 -18 99-153/45-79 91-98 Intake & Output 02/14/17 02/15/17 02/16/17 02/17/17 23:59 23:59 23:59 23:59 Weight 345 lb General: mildly dyspnea with audible wheezing and coughing sitting in bed CVS;S1s2 regular Chest: scattered expiratory wheezing, decreased air entry Abdomen: soft, obese, NT Home Medication List Medication Instructions Recorded Confirmed Type Atorvastatin Ca [Lipitor] 10 mg PO HS 10/20/15 02/16/17 History Biotin [Hard Nails] 5,000 mcg PO DAILY 10/20/15 02/16/17 History Carbamazepine Xr [Tegretol XR -] 300 mg PO BID 10/20/15 02/16/17 History Folic Acid 1 mg PO DAILY 10/20/15 02/16/17 History Levothyroxine [Synthroid -] 50 mcg PO UTDICT 10/20/15 02/16/17 History Methotrexate [Mexate -] 12.5 mg PO WEEKLY 10/20/15 02/16/17 History Montelukast Na [Singulair -] 10 mg PO DAILY 10/20/15 02/16/17 History [place]-3 Fatty Acids [[place]-3] 3 tab PO DAILY 10/20/15 02/16/17 History Sertraline HCl [Zoloft -] 100 mg PO DAILY 10/20/15 02/16/17 History Topiramate [Trokendi Xr] 100 mg PO BID 10/20/15 02/16/17 History Umeclidinium [place] [Incruse 62.5 mcg IH DAILY 10/20/15 02/16/17 History Ellipta] Glipizide 10 mg PO BID 08/13/16 02/16/17 History Hydroxychloroquine Sulfate 200 mg PO BID 08/13/16 02/16/17 History [Plaquenil] Insulin Glargine,Hum.rec.anlog 22 units SQ DAILY 08/13/16 02/16/17 History [Lantus (10mL VIAL) -] Albuterol Sulfate [Proair 90 mcg IH PRN PRN 11/19/16 02/16/17 History Respiclick] Pramipexole Dihydrochloride 0.5 mg PO BID 11/19/16 02/16/17 History [Mirapex -] Furosemide [Lasix -] 1 tab PO DAILY 02/12/17 02/16/17 History Losartan Potassium 1 tab PO DAILY 02/12/17 02/16/17 History Active Medications Generic Name Dose Route Start Last Admin Trade Name Freq PRN Reason Stop Dose Admin Acetaminophen 650 mg 02/17/17 13:29 02/17/17 13:57 Tylenol - PO 650 mg Q6H PRN Administration FEVER OR PAIN Albuterol Sulfate 1 amp 02/16/17 12:00 02/17/17 11:07 Ventolin 0.083% Nebulizer Soln - NEB 1 amp QIDR [facility]TA Administration Atorvastatin Calcium 10 mg 02/16/17 22:00 02/16/17 22:18 Lipitor - PO 10 mg HS DONTA Administration Budesonide/Formoterol Fumarate 2 puff 02/16/17 10:45 02/17/17 10:20 Symbicort 80/4.5mcg - IH 2 puff BID DONTA Administration Carbamazepine 300 mg 02/16/17 10:45 02/17/17 10:47 Tegretol Xr - PO 300 mg BID DONTA Administration Folic Acid 1 mg 02/16/17 10:45 02/17/17 10:18 Folic Acid - PO 1 mg DAILY [facility] Administration Furosemide 40 mg 02/16/17 10:45 02/17/17 10:18 Lasix - PO 40 mg DAILY [facility] Administration Guaifenesin/Codeine Phosphate 10 ml 02/16/17 10:33 02/17/17 13:58 Robitussin Ac - PO 10 ml Q6H PRN Administration COUGH Heparin Sodium (Porcine) 5,000 unit 02/17/17 06:00 02/17/17 13:51 Heparin - SQ 5,000 unit TID [facility] Administration Hydroxychloroquine Sulfate 200 mg 02/16/17 10:45 02/17/17 10:46 Plaquenil - PO 200 mg BID [facility] Administration Azithromycin 500 mg/ Dextrose 250 mls @ 250 mls/hr 02/16/17 13:15 02/17/17 10 :20 IVPB 02/18/17 13:30 250 mls/hr DAILY [facility] Administration Insulin Aspart 1 vial 02/16/17 11:00 02/17/17 12:03 Novolog Vial Sliding Scale - SQ 2 units ACHS [facility] Administration Protocol Insulin Detemir 18 units 02/16/17 12:00 02/17/17 06:44 Levemir Vial SQ 18 units DAILY@0700 [facility] Administration Levothyroxine Sodium 50 mcg 02/17/17 07:00 02/17/17 06:45 Synthroid - PO 50 mcg AM [facility] Administration Losartan Potassium 50 mg 02/16/17 10:45 02/17/17 10:19 Cozaar - PO 50 mg DAILY [facility] Administration Methotrexate 12.5 mg 02/16/17 13:00 02/16/17 14:00 Mexate - PO 12.5 mg We@1000 [facility] Administration Methylprednisolone Sodium Succinate 40 mg 02/17/17 13:12 02/17/17 16:33 Solu-Medrol - IVPUSH 40 mg TID [facility] Administration Montelukast Sodium 10 mg 02/16/17 10:45 02/17/17 10:18 Singulair - PO 10 mg DAILY [facility] Administration [id number] Ethyl Esters 3 gm 02/16/17 10:45 02/17/17 10:48 Lovaza - PO 3 gm DAILY [facility] Administration Pramipexole Dihydrochloride 0.5 mg 02/16/17 10:45 02/17/17 10:48 Mirapex - PO 0.5 mg BID [facility] Administration Sertraline HCl 100 mg 02/16/17 10:45 02/17/17 10:18 Zoloft - PO 100 mg DAILY [facility] Administration Tiotropium [place] 1 puff 02/16/17 10:45 02/17/17 10:22 Spiriva - IH 1 puff DAILY [facility] Administration Topiramate 100 mg 02/16/17 13:45 02/17/17 10:19 Topamax - PO 100 mg BID [facility] Administration Laboratory Results - last 24 hr 02/16/17 02/16/17 02/16/17 09:00 18:08 21:05 WBC RBC Hgb Hct MCV MCH MCHC RDW Plt Count MPV Neutrophils % Lymphocytes % Monocytes % Eosinophils % Basophils % Sodium Potassium Chloride Carbon Dioxide Anion Gap BUN Creatinine POC Glucometer 175 240 Random Glucose Hemoglobin A1c % Calcium Magnesium Ur Leukocyte Esterase Negative 02/17/17 02/17/17 02/17/17 06:10 08:00 08:00 WBC 12.1 H D RBC 4.24 Hgb 12.2 Hct 38.1 MCV 90.0 MCH 28.9 MCHC 32.1 RDW 16.6 H Plt Count 356 MPV 8.0 Neutrophils % 80.9 D Lymphocytes % 13.7 D Monocytes % 4.5 Eosinophils % 0.4 Basophils % 0.5 Sodium 140 Potassium 4.3 Chloride 105 Carbon Dioxide 28 Anion Gap 7 L BUN 16 Creatinine 1.0 POC Glucometer 185 Random Glucose 149 H D Hemoglobin A1c % Calcium 9.3 Magnesium 2.5 H D Ur Leukocyte Esterase 02/17/17 02/17/17 08:00 11:34 WBC RBC Hgb Hct MCV MCH MCHC RDW Plt Count MPV Neutrophils % Lymphocytes % Monocytes % Eosinophils % Basophils % Sodium Potassium Chloride Carbon Dioxide Anion Gap BUN Creatinine POC Glucometer 193 Random Glucose Hemoglobin A1c % 7.1 H D Calcium Magnesium Ur Leukocyte Esterase Microbiology 02/16/17 20:00 Nasopharyngeal Swab Respiratory Virus (PCR) - Preliminary 02/16/17 06:00 Blood - Peripheral Venous Blood Culture - Preliminary NO GROWTH OBTAINED AFTER 24 HOURS, INCUBATION TO CONTINUE FOR 4 DAYS. 02/16/17 06:06 Blood - Peripheral Venous Blood Culture - Preliminary NO GROWTH OBTAINED AFTER 24 HOURS, INCUBATION TO CONTINUE FOR 4 DAYS. 02/16/17 20:00 Nasopharyngeal Swab Influenza Types A,B Antigen (SERVANDO) - Final 02/16/17 20:00 Nasopharyngeal Swab - Final ASSESSMENT AND PLAN: 61 yof with PMHx of COPD on 2L home oxygen, CAD s/p cath no stent, HTN, HLD, DM, seizure, SLE, hypothyroid, DANY on CPAP, recently admitted with COPD exacerbation comes back with worsening dyspnea after reportedly taking prednisone 20 mg after discharge instead of 60 mg as advised. -Acute COPD exacerbation -Atypical chest pain -CAD s/p cath, no stent -HTN -HLD -DM -SLE on immunosuppressants -Seizure disorder -Hypothyroidisms -Morbid obesity s/p gastric banding Plan: Still with significant wheezing and symptoms. Continue IV solumedrol. Place on standing nebs. Azithromycin day 2. Continue to monitor oxygen requirments. follow u RVP. Increase levemir to home dose 22 units, titrate as needed. ISS, diabetic diet. Continue home meds with caution. Chest symptoms more related to coughing and COPD. ACS ruled out. Low threshold for antibiotics if new leucocytosis, fevers or fails to improve given patient on immunosupressants. GI/DVTPPX dispo anticipate atleast 2 midnight stays given need for IV steroids, round the clock respiratory treatments, and close respiratory montoirng. Admit to inpatient. Plan discussed with patient in detail, all questions answered.
--- NOTE | 2017-02-17 21:55 | PN ---
Physical Exam: SUBJECTIVE: Pt seen and examined earlier in day with general medical team. Pt seen with staff walking in halls without oxygenation. Pt walked minimal amount of feet and was brought back to bed. Pt currently coughing with some audible wheezes and dyspnic. No other complaints or acute events overnight otherwise. OBJECTIVE: Vital Signs Period Temp Pulse Resp BP Sys/Oconnell Pulse Ox Last 24 Hr 98.0 F-99 F 63-92 18-18 99-153/45-79 91-97 GENERAL: Mild distress at bedside receiving breathing treatment, awake, alert, and fully oriented HEENT: LUNGS: Markedly decreased breath sounds in lower lung griggs, upper griggs with prolonged expiratory phase and expiratory wheezes bilaterally, no crackles or rhonchi, no accessory muscle use. HEART: slighlty tachycardic, S1, S2 without murmur ABDOMEN: Soft, nontender, nondistended, normoactive bowel sounds, no guarding, no hepatomegaly EXTREMITIES: 2+ distal pulses, warm, well-perfused, no edema. NEUROLOGICAL: Cranial nerves II through XII grossly intact. Normal speech, however dyspneic currently, gait normal PSYCH: Normal mood, normal affect. SKIN: Warm, dry, normal turgor, no rashes or lesions noted Laboratory Results - last 24 hr 02/17/17 02/17/17 02/17/17 06:10 08:00 08:00 WBC 12.1 H D RBC 4.24 Hgb 12.2 Hct 38.1 MCV 90.0 MCH 28.9 MCHC 32.1 RDW 16.6 H Plt Count 356 MPV 8.0 Neutrophils % 80.9 D Lymphocytes % 13.7 D Monocytes % 4.5 Eosinophils % 0.4 Basophils % 0.5 Sodium 140 Potassium 4.3 Chloride 105 Carbon Dioxide 28 Anion Gap 7 L BUN 16 Creatinine 1.0 POC Glucometer 185 Random Glucose 149 H D Hemoglobin A1c % Calcium 9.3 Magnesium 2.5 H D 02/17/17 02/17/17 02/17/17 08:00 11:34 17:25 WBC RBC Hgb Hct MCV MCH MCHC RDW Plt Count MPV Neutrophils % Lymphocytes % Monocytes % Eosinophils % Basophils % Sodium Potassium Chloride Carbon Dioxide Anion Gap BUN Creatinine POC Glucometer 193 198 Random Glucose Hemoglobin A1c % 7.1 H D Calcium Magnesium Active Medications Generic Name Dose Route Start Last Admin Trade Name Freq PRN Reason Stop Dose Admin Acetaminophen 650 mg 02/17/17 13:29 02/17/17 13:57 Tylenol - PO 650 mg Q6H PRN Administration FEVER OR PAIN Albuterol Sulfate 1 amp 02/16/17 12:00 02/17/17 18:05 Ventolin 0.083% Nebulizer Soln - NEB 1 amp QIDR [facility] Administration Atorvastatin Calcium 10 mg 02/16/17 22:00 02/16/17 22:18 Lipitor - PO 10 mg HS [facility] Administration Budesonide/Formoterol Fumarate 2 puff 02/16/17 10:45 02/17/17 10:20 Symbicort 80/4.5mcg - IH 2 puff BID [facility] Administration Carbamazepine 300 mg 02/16/17 10:45 02/17/17 10:47 Tegretol Xr - PO 300 mg BID [facility] Administration Folic Acid 1 mg 02/16/17 10:45 02/17/17 10:18 Folic Acid - PO 1 mg DAILY [facility] Administration Furosemide 40 mg 02/16/17 10:45 02/17/17 10:18 Lasix - PO 40 mg DAILY [facility] Administration Guaifenesin/Codeine Phosphate 10 ml 02/16/17 10:33 02/17/17 13:58 Robitussin Ac - PO 10 ml Q6H PRN Administration COUGH Heparin Sodium (Porcine) 5,000 unit 02/17/17 06:00 02/17/17 13:51 Heparin - SQ 5,000 unit TID [facility] Administration Hydroxychloroquine Sulfate 200 mg 02/16/17 10:45 02/17/17 10:46 Plaquenil - PO 200 mg BID [facility] Administration Azithromycin 500 mg/ Dextrose 250 mls @ 250 mls/hr 02/16/17 13:15 02/17/17 10 :20 IVPB 02/18/17 13:30 250 mls/hr DAILY [facility] Administration Insulin Aspart 1 vial 02/16/17 11:00 02/17/17 17:40 Novolog Vial Sliding Scale - SQ 2 units ACHS [facility] Administration Protocol Insulin Detemir 22 units 02/17/17 16:57 Levemir Vial SQ DAILY@0700 [facility] Levothyroxine Sodium 50 mcg 02/17/17 07:00 02/17/17 06:45 Synthroid - PO 50 mcg AM [facility] Administration Losartan Potassium 50 mg 02/16/17 10:45 02/17/17 10:19 Cozaar - PO 50 mg DAILY [facility] Administration Methotrexate 12.5 mg 02/16/17 13:00 02/16/17 14:00 Mexate - PO 12.5 mg We@1000 [facility] Administration Methylprednisolone Sodium Succinate 40 mg 02/17/17 13:12 02/17/17 16:33 Solu-Medrol - IVPUSH 40 mg TID [facility] Administration Montelukast Sodium 10 mg 02/16/17 10:45 02/17/17 10:18 Singulair - PO 10 mg DAILY [facility] Administration [id number] Ethyl Esters 3 gm 02/16/17 10:45 02/17/17 10:48 Lovaza - PO 3 gm DAILY [facility] Administration Pramipexole Dihydrochloride 0.5 mg 02/16/17 10:45 02/17/17 10:48 Mirapex - PO 0.5 mg BID [facility] Administration Sertraline HCl 100 mg 02/16/17 10:45 02/17/17 10:18 Zoloft - PO 100 mg DAILY [facility] Administration Tiotropium [place] 1 puff 02/16/17 10:45 02/17/17 10:22 Spiriva - IH 1 puff DAILY [facility] Administration Topiramate 100 mg 02/16/17 13:45 02/17/17 10:19 Topamax - PO 100 mg BID [facility] Administration ASSESSMENT/PLAN: 61yo F with history of COPD (2L NC baseline), DANY (CPAP), CAD (s/p catherization ), SLE, DM, HTN, HLD who was recently admitted for a COPD exacerbation seen again for worsening dyspnea after decreasing her prednisone dose to 20mg from 60mg s/p discharge. 1) Acute COPD exacerbation --Albuterol nebs QID --Solumedrol 40mg IVP TID --Spiriva to continue --Singulair to continue --Symbicort to continue --Zithromax day 2 --Titrate O2 >90% SpO2 --Robutussin PRN for cough 2) Atypical Chest pain --Most likely 2/2 to cough and increase work of breathing --r/o ACS --Has been improving as coughing is under control 3) DM --BGM --ISS --Increase Levemir to 22U 4) CAD s/p cath x1, HTN --Continue Cozaar 50mg qDaily --Lipitor 10mg PO HS 5) SLE --continue home medications --Monitor leukocytosis or fever spikes due to immunosuppressant therapy 6) Seizure disorder --Continue carbamazepine home dosing 7) Hypothyroidism --Continue home Synthroid FEN: Fluids: None currently; tolerating PO Electrolyte abnormalities: Nutrition: Diabetic diet PPX: DVT - Heparin SQ TID Dispo: Admit; will require >2 midnights for proper medical optimization given amount of wheezing on exam Case discussed with Dr. Yesi Adams, DO - Internal Medicine PGY-1 Visit type - Emergency Visit Emergency Visit: No - New Patient This patient is new to me today: Yes Date on this admission: 02/17/17 - Critical Care Critical Care patient: No
[2017-02-17] MEDS: ATORVASTATIN CA 10 MG TABLET (FP) PO SCH (23:00)
[2017-02-18] MEDS: ALBUTEROL SO4 0.083% IH SOL 2.5 MG/3 ML VIAL.NEB. NEB SCH ×4 (06:10→23:31)
[2017-02-18] MEDS: HEPARIN NA (PORCINE) 5,000 UNITS/ML 1ML VIAL SQ SCH ×3 (06:25→22:46)
[2017-02-18] MEDS: INSULIN SLIDING SCALE (NOVOLOG) 1 VIAL SQ SCH ×4 (06:25→22:47)
[2017-02-18] MEDS: LEVOTHYROXINE NA 50 MCG TABLET (FP) PO SCH (06:25)
[2017-02-18] MEDS: methylPREDNISolone NA SUCC 125 MG/2 ML VIAL IVPUSH SCH (06:26)
[2017-02-18] MEDS: INSULIN DETEMIR 100 UNITS/ML MDV SQ SCH (06:26)
[2017-02-18] MEDS ORDERED: INSULIN (NOVOLOG) ASPART 100 UNITS/ML 10ML VIAL ONE (06:54)
[2017-02-18 08:31] LABS: HEMATOCRIT 38.4 % (32.4-45.2); HEMOGLOBIN 12.2 GM/dL (10.7-15.3); MCH 28.6 pg (25.7-33.7); MCHC 31.8 g/dl (32.0-36.0); MEAN CELL VOLUME 90.1 fl (80-96); MEAN PLT VOLUME 8.4 fl (7.5-11.1); PLATELET COUNT 318 K/MM3 (134-434); RBC 4.26 M/mm3 (3.60-5.2); RDW 16.7 % (11.6-15.6); WHITE BLOOD COUNT 7.7 K/mm3 (4.0-10.0)
--- NOTE | 2017-02-18 08:55 | PN ---
Teaching Attending Note Name of Resident: Morgan Adams ATTENDING PHYSICIAN STATEMENT Time of evaluation: 12:20 PM I saw and evaluated the patient. I reviewed the resident's note and discussed the case with the resident. I agree with the resident's findings and plan as documented. SUBJECTIVE: Patient seen and examined. breathing slowly improved. No other complaints, No abdominal pain or urinary symptoms. OBJECTIVE: Vital Signs Period Temp Pulse Resp BP Sys/Oconnell Pulse Ox Last 24 Hr 97.4 F-99 F 60-92 18-20 99-153/51-79 91-95 Intake & Output 02/15/17 02/16/17 02/17/17 02/18/17 23:59 23:59 23:59 23:59 Intake Total 1000 300 Balance 1000 300 Weight 345 lb General; sitting in bed, better breathing today Chest:Improved air entry, occasional wheezing Abdomen: soft, obese, NT Extremities: no edema Home Medication List Medication Instructions Recorded Confirmed Type Atorvastatin Ca [Lipitor] 10 mg PO HS 10/20/15 02/16/17 History Biotin [Hard Nails] 5,000 mcg PO DAILY 10/20/15 02/16/17 History Carbamazepine Xr [Tegretol XR -] 300 mg PO BID 10/20/15 02/16/17 History Folic Acid 1 mg PO DAILY 10/20/15 02/16/17 History Levothyroxine [Synthroid -] 50 mcg PO UTDICT 10/20/15 02/16/17 History Methotrexate [Mexate -] 12.5 mg PO WEEKLY 10/20/15 02/16/17 History Montelukast Na [Singulair -] 10 mg PO DAILY 10/20/15 02/16/17 History Tuthill-3 Fatty Acids [Tuthill-3] 3 tab PO DAILY 10/20/15 02/16/17 History Sertraline HCl [Zoloft -] 100 mg PO DAILY 10/20/15 02/16/17 History Topiramate [Trokendi Xr] 100 mg PO BID 10/20/15 02/16/17 History Umeclidinium [place] [Incruse 62.5 mcg IH DAILY 10/20/15 02/16/17 History Ellipta] Glipizide 10 mg PO BID 08/13/16 02/16/17 History Hydroxychloroquine Sulfate 200 mg PO BID 08/13/16 02/16/17 History [Plaquenil] Insulin Glargine,Hum.rec.anlog 22 units SQ DAILY 08/13/16 02/16/17 History [Lantus (10mL VIAL) -] Albuterol Sulfate [Proair 90 mcg IH PRN PRN 11/19/16 02/16/17 History Respiclick] Pramipexole Dihydrochloride 0.5 mg PO BID 11/19/16 02/16/17 History [Mirapex -] Furosemide [Lasix -] 1 tab PO DAILY 02/12/17 02/16/17 History Losartan Potassium 1 tab PO DAILY 02/12/17 02/16/17 History Active Medications Generic Name Dose Route Start Last Admin Trade Name Freq PRN Reason Stop Dose Admin Acetaminophen 650 mg 02/17/17 13:29 02/17/17 13:57 Tylenol - PO 650 mg Q6H PRN Administration FEVER OR PAIN Albuterol Sulfate 1 amp 02/16/17 12:00 02/18/17 06:10 Ventolin 0.083% Nebulizer Soln - NEB 1 amp QIDR [facility] Administration Atorvastatin Calcium 10 mg 02/16/17 22:00 02/17/17 23:00 Lipitor - PO 10 mg HS [facility] Administration Budesonide/Formoterol Fumarate 2 puff 02/16/17 10:45 02/17/17 22:58 Symbicort 80/4.5mcg - IH 2 puff BID [facility] Administration Carbamazepine 300 mg 02/16/17 10:45 02/17/17 23:01 Tegretol Xr - PO 300 mg BID [facility] Administration Folic Acid 1 mg 02/16/17 10:45 02/17/17 10:18 Folic Acid - PO 1 mg DAILY [facility] Administration Furosemide 40 mg 02/16/17 10:45 02/17/17 10:18 Lasix - PO 40 mg DAILY [facility] Administration Guaifenesin/Codeine Phosphate 10 ml 02/16/17 10:33 02/17/17 13:58 Robitussin Ac - PO 10 ml Q6H PRN Administration COUGH Heparin Sodium (Porcine) 5,000 unit 02/17/17 06:00 02/18/17 06:25 Heparin - SQ 5,000 unit TID [facility] Administration Hydroxychloroquine Sulfate 200 mg 02/16/17 10:45 02/17/17 22:59 Plaquenil - PO 200 mg BID [facility] Administration Azithromycin 500 mg/ Dextrose 250 mls @ 250 mls/hr 02/16/17 13:15 02/17/17 10 :20 IVPB 02/18/17 13:30 250 mls/hr DAILY [facility] Administration Insulin Aspart 1 vial 02/16/17 11:00 02/18/17 06:25 Novolog Vial Sliding Scale - SQ 2 units ACHS [facility] Administration Protocol Insulin Detemir 22 units 02/17/17 16:57 02/18/17 06:26 Levemir Vial SQ 22 units DAILY@0700 [facility] Administration Levothyroxine Sodium 50 mcg 02/17/17 07:00 02/18/17 06:25 Synthroid - PO 50 mcg AM [facility] Administration Losartan Potassium 50 mg 02/16/17 10:45 02/17/17 10:19 Cozaar - PO 50 mg DAILY [facility] Administration Methotrexate 12.5 mg 02/16/17 13:00 02/16/17 14:00 Mexate - PO 12.5 mg We@1000 [facility] Administration Methylprednisolone Sodium Succinate 40 mg 02/17/17 13:12 02/18/17 06:26 Solu-Medrol - IVPUSH 40 mg TID [facility] Administration Montelukast Sodium 10 mg 02/16/17 10:45 02/17/17 10:18 Singulair - PO 10 mg DAILY [facility] Administration Uawms-0-[id number] Ethyl Esters 3 gm 02/16/17 10:45 02/17/17 10:48 Lovaza - PO 3 gm DAILY [facility] Administration Pramipexole Dihydrochloride 0.5 mg 02/16/17 10:45 02/17/17 23:00 Mirapex - PO 0.5 mg BID [facility] Administration Sertraline HCl 100 mg 02/16/17 10:45 02/17/17 10:18 Zoloft - PO 100 mg DAILY [facility] Administration Tiotropium [place] 1 puff 02/16/17 10:45 02/17/17 10:22 Spiriva - IH 1 puff DAILY [facility] Administration Topiramate 100 mg 02/16/17 13:45 02/17/17 23:00 Topamax - PO 100 mg BID [facility] Administration Microbiology 02/16/17 06:06 Blood - Peripheral Venous Blood Culture - Preliminary Pending Organism 02/16/17 06:00 Blood - Peripheral Venous Blood Culture - Preliminary NO GROWTH OBTAINED AFTER 48 HOURS, INCUBATION TO CONTINUE FOR 3 DAYS. 02/16/17 20:00 Nasopharyngeal Swab Respiratory Virus (PCR) - Preliminary 02/16/17 20:00 Nasopharyngeal Swab Influenza Types A,B Antigen (SERVANDO) - Final 02/16/17 20:00 Nasopharyngeal Swab - Final ASSESSMENT AND PLAN: 61 yof with PMHx of COPD on 2L home oxygen, CAD s/p cath no stent, HTN, HLD, DM, seizure, SLE, hypothyroid, DANY on CPAP, recently admitted with COPD exacerbation comes back with worsening dyspnea after reportedly taking prednisone 20 mg after discharge instead of 60 mg as advised. -Acute COPD exacerbation -Atypical chest pain -CAD s/p cath, no stent -HTN -HLD -DM, with steroid induced hyperglycemia -SLE on immunosuppressants -Seizure disorder -Hypothyroidisms -Morbid obesity s/p gastric banding Plan: taper solumedrolto 40 mg IV q12h, transition to PO in Am if continues to improve. Standing nebs. s/p 3 days. Continue to monitor oxygen requirments. follow u RVP. GNB bacteremia, ?source, ID input appreciated. Levaquin. Gentamicin x 1. Agree given patient on immunosuppressants. Follow up final culture Levemir home dose 22 units, titrate as needed. ISS, diabetic diet. Continue home meds with caution. Chest symptoms more related to coughing and COPD. ACS ruled out. GI/DVTPPX check ambulatory oxygen needs dispo hold off d/c plan given new bacteremia.
[2017-02-18 09:03] LABS: CHLORIDE 103 mmol/L (98-107); SODIUM 136 mmol/L (136-145)
[2017-02-18] MEDS ORDERED: PT OWN MED DRAWER 7, Y5N ONE (09:13)
[2017-02-18 09:22] LABS: ANION GAP 11 (8-16); BLOOD UREA NITROGEN 18 mg/dL (7-18); CALCIUM 9.5 mg/dL (8.5-10.1); CO2 22 mmol/L (21-32); GLUCOSE,RANDOM 145 mg/dL (74-106)
[2017-02-18] MEDS: TIOTROPIUM BROMIDE 18 MCG/INH (DEVICE W/ 5 CAPSULES) IH SCH (10:05)
[2017-02-18] MEDS: AZITHROMYCIN IVPB 500 MG in DEXTROSE 5%-WATER - 250 ML IVPB SCH (10:05)
[2017-02-18] MEDS: FOLIC ACID 1 MG TABLET (FP) PO SCH (10:06)
[2017-02-18] MEDS: OMEGA-3 ACID ETHYL ESTERS (FATTY-ACIDS) 1 GM CAPSULE (FP) PO SCH (10:06)
[2017-02-18] MEDS: SERTRALINE HCL 50 MG TABLET (FP) PO SCH (10:06)
[2017-02-18] MEDS: MONTELUKAST NA 10 MG TABLET PO SCH (10:06)
[2017-02-18] MEDS: TOPIRAMATE 100 MG TABLET PO SCH ×2 (10:07→22:47)
[2017-02-18] MEDS: FUROSEMIDE 40 MG TABLET (FP) PO SCH (10:07)
[2017-02-18] MEDS: HYDROXYCHLOROQUINE SO4 200 MG TABLET (FP) PO SCH ×2 (10:07→22:47)
[2017-02-18] MEDS: PRAMIPEXOLE DIHYDROCHLORIDE 0.5 MG TABLET PO SCH ×2 (10:07→22:47)
[2017-02-18] MEDS: BUDESONIDE/FORMETEROL FUMARATE 80/4.5 mcg INHALER IH SCH ×2 (10:07→22:47)
[2017-02-18] MEDS: LOSARTAN POTASSIUM 50 MG TABLET (FP) PO SCH (10:07)
[2017-02-18 10:15] LABS: POTASSIUM 4.7 mmol/L (3.5-5.1)
[2017-02-18 12:39] LABS: MAGNESIUM 2.1 mg/dL (1.8-2.4)
--- NOTE | 2017-02-18 13:21 | PN ---
Progress Note, Physician History of Present Illness: PULMONARY ALERT,FEELING BETTER,DYSPNEA IMPROVING - Current Medication List Current Medications: Active Medications Acetaminophen (Tylenol -) 650 mg PO Q6H PRN PRN Reason: FEVER OR PAIN Last Admin: 02/17/17 13:57 Dose: 650 mg Albuterol Sulfate (Ventolin 0.083% Nebulizer Soln -) 1 amp NEB QIDR [facility] Last Admin: 02/18/17 11:09 Dose: 1 amp Atorvastatin Calcium (Lipitor -) 10 mg PO HS [facility] Last Admin: 02/17/17 23:00 Dose: 10 mg Budesonide/Formoterol Fumarate (Symbicort 80/4.5mcg -) 2 puff IH BID [facility] Last Admin: 02/18/17 10:07 Dose: 2 puff Carbamazepine (Tegretol Xr -) 300 mg PO BID [facility] Last Admin: 02/18/17 10:07 Dose: 300 mg Folic Acid (Folic Acid -) 1 mg PO DAILY [facility] Last Admin: 02/18/17 10:06 Dose: 1 mg Furosemide (Lasix -) 40 mg PO DAILY [facility] Last Admin: 02/18/17 10:07 Dose: 40 mg Guaifenesin/Codeine Phosphate (Robitussin Ac -) 10 ml PO Q6H PRN PRN Reason: COUGH Last Admin: 02/17/17 13:58 Dose: 10 ml Heparin Sodium (Porcine) (Heparin -) 5,000 unit SQ TID [facility] Last Admin: 02/18/17 06:25 Dose: 5,000 unit Hydroxychloroquine Sulfate (Plaquenil -) 200 mg PO BID [facility] Last Admin: 02/18/17 10:07 Dose: 200 mg Insulin Aspart (Novolog Vial Sliding Scale -) 1 vial SQ ACHS [facility] PRN Reason: Protocol Last Admin: 02/18/17 11:49 Dose: 4 units Insulin Detemir (Levemir Vial) 22 units SQ DAILY@0700 [facility] Last Admin: 02/18/17 06:26 Dose: 22 units Levothyroxine Sodium (Synthroid -) 50 mcg PO AM [facility] Last Admin: 02/18/17 06:25 Dose: 50 mcg Losartan Potassium (Cozaar -) 50 mg PO DAILY [facility] Last Admin: 02/18/17 10:07 Dose: 50 mg Methotrexate (Mexate -) 12.5 mg PO We@1000 [facility] Last Admin: 02/16/17 14:00 Dose: 12.5 mg Methylprednisolone Sodium Succinate (Solu-Medrol -) 40 mg IVPUSH BID [facility] Montelukast Sodium (Singulair -) 10 mg PO DAILY [facility] Last Admin: 02/18/17 10:06 Dose: 10 mg Ykatt-4-Heqf Ethyl Esters (Lovaza -) 3 gm PO DAILY [facility] Last Admin: 02/18/17 10:06 Dose: 3 gm Pramipexole Dihydrochloride (Mirapex -) 0.5 mg PO BID [facility] Last Admin: 02/18/17 10:07 Dose: 0.5 mg Sertraline HCl (Zoloft -) 100 mg PO DAILY [facility] Last Admin: 02/18/17 10:06 Dose: 100 mg Tiotropium [place] (Spiriva -) 1 puff IH DAILY [facility] Last Admin: 02/18/17 10:05 Dose: 1 puff Topiramate (Topamax -) 100 mg PO BID [facility] Last Admin: 02/18/17 10:07 Dose: 100 mg - Objective Vital Signs: Vital Signs Temperature 99.0 F 02/18/17 09:43 Pulse Rate 82 02/18/17 10:11 Respiratory Rate 18 02/18/17 09:43 Blood Pressure 137/69 02/18/17 09:43 O2 Sat by Pulse Oximetry (%) 95 02/18/17 10:11 Constitutional: Yes: Calm, Obese Eyes: Yes: WNL HENT: Yes: WNL Cardiovascular: Yes: Regular Rate and Rhythm, S1, S2 Respiratory: Yes: Wheezes (SCATTERED KIMO WHEEZES) Gastrointestinal: Yes: Normal Bowel Sounds, Soft Extremities: Yes: WNL Edema: No Labs: CBC, BMP 02/18/17 07:05 02/18/17 07:05 INR, PTT INR 0.98 (0.82-1.09) 02/16/17 06:00 Assessment/Plan Problem List - Problems (1) SLE (systemic lupus erythematosus) Code(s): M32.9 - SYSTEMIC LUPUS ERYTHEMATOSUS, UNSPECIFIED (2) Acute exacerbation of chronic obstructive pulmonary disease (COPD) Code(s): J44.1 - CHRONIC OBSTRUCTIVE PULMONARY DISEASE W (ACUTE) EXACERBATION (3) Atypical chest pain Code(s): R07.89 - OTHER CHEST PAIN (4) COPD (chronic obstructive pulmonary disease) Code(s): J44.9 - CHRONIC OBSTRUCTIVE PULMONARY DISEASE, UNSPECIFIED Qualifiers: COPD type: unspecified COPD Qualified Code(s): J44.9 - Chronic obstructive pulmonary disease, unspecified (5) CHF (congestive heart failure) Code(s): I50.9 - HEART FAILURE, UNSPECIFIED (6) CKD (chronic kidney disease) stage 3, GFR 30-59 ml/min Code(s): N18.3 - CHRONIC KIDNEY DISEASE, STAGE 3 (MODERATE) Assessment/Plan ACUTE EXACERBATION COPD DYSPHONIA NEW ELEVATION OF LEFT HEMIDIAPHRAGM SLE RECENT BARIATRIC SURG (?CAUSE OF LEFT LUCILA ELEVATION) STEROIDS SAME DOSE BRONCHODILATORS IMMUNOSUPPRESANTS FOR SLE NIPPV/O2 SUPPLEMENT[address] DR DAI
[2017-02-18] MEDS ORDERED: GENTAMICIN INJECTION 300 MG in SODIUM CHLORIDE 100 ML IVPB ONE (17:16)
--- NOTE | 2017-02-18 17:20 | PN ---
Progress Note (short form) - Note Progress Note: ID Consult dictated Gram Negative Bacteremia/ Sepsis ? Source Acute exacerbation COPD Major PCN allergy Await identification of blood isolate Empiric levaquin + stat dose gentamicin
[2017-02-18] MEDS: LEVOFLOXACIN 750 MG IVPB 750 MG/150 ML BAG IVPB SCH (18:05)
--- NOTE | 2017-02-18 19:26 | CONS ---
INFECTIOUS DISEASE CONSULTATION DATE OF CONSULTATION: DATE OF DICTATION: 02/18/2017 REASON FOR CONSULTATION: The patient is a 61-year-old, morbidly obese, diabetic female with a history of COPD, evaluated for positive blood culture. HISTORY OF PRESENT ILLNESS: She was recently hospitalized at [facility] from February 11 through February 13 with an acute exacerbation of COPD. She was discharged home feeling better. While at home, she developed recurrent shortness of breath, chest discomfort, and dry cough. She had been in contact with her who had a respiratory tract illness. According to the notes, she was taking 20 mg of prednisone instead of the prescribed dose of 60 mg. She was admitted to the hospital where she was treated for an acute exacerbation of COPD with steroids, bronchodilators, and Zithromax. Blood cultures are now positive from February 16, one bottle of gram-negative rods. She reports feeling better. She is chronically short of breath. She does have a dry cough. She has had some nausea but no vomiting. She had one episode of diarrhea. She denies any dysuria or hematuria. She does have urinary frequency; however, attributes this to diuretic therapy. PAST MEDICAL HISTORY: Positive for diabetes mellitus, diabetic retinopathy, COPD, morbid obesity, obstructive sleep apnea, lupus, hypertension, hyperlipidemia, seizure disorder, hypothyroidism, cataracts. PAST SURGICAL HISTORY: Status post gastric band November 2016, section, tonsillectomy, hemorrhoidectomy, right total hip replacement. ALLERGIES: PENICILLIN, NEURONTIN, and DILANTIN. With respect to PENICILLIN, she reports developing tongue swelling. SOCIAL HISTORY: Lives at home with her . She is a former smoker, stopped 15 years ago. Recent hospitalization as noted. SYSTEMS REVIEW: Neurologic: No loss of consciousness, seizure activity, or focal weakness. Cardiac: Negative retrosternal chest pain or palpitations. Respiratory: As per HPI. Gastrointestinal: Positive nausea, one episode of diarrhea. Genitourinary: Negative for urinary tract infection. LABORATORY DATA: White count on admission 12.1, presently is 7.7; hematocrit 38.4; platelet count 318. BUN 18, creatinine 1.0. Urinalysis negative leukocyte esterase. CAT scan of the chest shows atelectatic changes without evidence of infiltrate. PHYSICAL EXAMINATION: General: The patient is awake and alert, is morbidly obese. Vital Signs: Temperature 97.8; blood pressure 109/77; pulse 86, regular; respirations 20 per minute. HEENT: Sclerae anicteric. Heart: Sounds S1, S2. Lungs: Diminished breath sounds bilaterally. Abdomen: Obese, soft. No tenderness elicited. No mass, rebound, or rigidity. Extremities: Positive for edema. IMPRESSION: 1. Gram-negative bacteremia/sepsis, unclear source. 2. Acute exacerbation of chronic obstructive pulmonary disease. 3. History of major PENICILLIN allergy. 4. Lupus. RECOMMENDATION: Obtain urine culture, await identification of blood isolate, empiric antibiotic coverage in this PENICILLIN-allergic patient with Levaquin and stat dose gentamicin. Further recommendations pending identification of blood isolate. Will follow. Thank you for the kind referral. CONSUELO TORRES M.D. [id number]
--- NOTE | 2017-02-18 20:31 | PN ---
Physical Exam: SUBJECTIVE: Patient seen and examined earlier in morning. No acute events overnight. No new complaints per pt. Pt reports her breathing improving. Denies fevers/chills, CP/discomfort, abdominal pain, diarrhea/constipation. OBJECTIVE: Vital Signs Period Temp Pulse Resp BP Sys/Oconnell Pulse Ox Last 24 Hr 97.4 F-99.0 F 60-91 18-20 109-146/51-77 95-98 GENERAL: NAD, awake, alert, and fully oriented HEENT: NC/AT, sclera anicteric, No JVD noted, moist mucosa without any exudates or erythema in posterior oropharynx LUNGS: Improved aeration compared to previous exam however still diminished, prolonged expiratory phase, slight wheezing noted, no crackles or rhonchi, no accessory muscle use. On 2LNC HEART: RRR, S1, S2 without murmur ABDOMEN: Soft, nontender, nondistended, normoactive bowel sounds, no guarding, no hepatomegaly EXTREMITIES: 2+ distal pulses, warm, well-perfused, no edema. NEUROLOGICAL: Cranial nerves II through XII grossly intact. Normal speech, however dyspneic currently, gait normal PSYCH: Normal mood, normal affect. SKIN: Warm, dry, normal turgor, no rashes or lesions noted Laboratory Results - last 24 hr 02/17/17 02/18/17 02/18/17 22:57 06:24 07:05 WBC 7.7 D RBC 4.26 Hgb 12.2 Hct 38.4 MCV 90.1 MCH 28.6 MCHC 31.8 L RDW 16.7 H Plt Count 318 MPV 8.4 Sodium Potassium Chloride Carbon Dioxide Anion Gap BUN Creatinine POC Glucometer 223 155 Random Glucose Calcium Magnesium 02/18/17 02/18/17 02/18/17 07:05 11:47 16:57 WBC RBC Hgb Hct MCV MCH MCHC RDW Plt Count MPV Sodium 136 Potassium 4.7 Chloride 103 Carbon Dioxide 22 D Anion Gap 11 BUN 18 Creatinine 1.0 POC Glucometer 216 137 Random Glucose 145 H Calcium 9.5 Magnesium 2.1 Active Medications Generic Name Dose Route Start Last Admin Trade Name Freq PRN Reason Stop Dose Admin Acetaminophen 650 mg 02/17/17 13:29 02/17/17 13:57 Tylenol - PO 650 mg Q6H PRN Administration FEVER OR PAIN Albuterol Sulfate 1 amp 02/16/17 12:00 02/18/17 17:22 Ventolin 0.083% Nebulizer Soln - NEB 1 amp QIDR DONTA Administration Atorvastatin Calcium 10 mg 02/16/17 22:00 02/17/17 23:00 Lipitor - PO 10 mg HS DONTA Administration Budesonide/Formoterol Fumarate 2 puff 02/16/17 10:45 02/18/17 10:07 Symbicort 80/4.5mcg - IH 2 puff BID DONTA Administration Carbamazepine 300 mg 02/16/17 10:45 02/18/17 10:07 Tegretol Xr - PO 300 mg BID DONTA Administration Folic Acid 1 mg 02/16/17 10:45 02/18/17 10:06 Folic Acid - PO 1 mg DAILY DONTA Administration Furosemide 40 mg 02/16/17 10:45 02/18/17 10:07 Lasix - PO 40 mg DAILY DONTA Administration Guaifenesin/Codeine Phosphate 10 ml 02/16/17 10:33 02/17/17 13:58 Robitussin Ac - PO 10 ml Q6H PRN Administration COUGH Heparin Sodium (Porcine) 5,000 unit 02/17/17 06:00 02/18/17 15:07 Heparin - SQ 5,000 unit TID DONTA Administration Hydroxychloroquine Sulfate 200 mg 02/16/17 10:45 02/18/17 10:07 Plaquenil - PO 200 mg BID DONTA Administration Levofloxacin 750 mg in 150 mls @ 150 mls/hr 02/18/17 17:30 02/18/17 18:05 Levaquin 750 Mg Premixed Ivpb - IVPB 150 mls/hr DAILY DONTA Administration Insulin Aspart 1 vial 02/16/17 11:00 02/18/17 17:00 Novolog Vial Sliding Scale - SQ Not Given [facility] Protocol Insulin Detemir 22 units 02/17/17 16:57 02/18/17 06:26 Levemir Vial SQ 22 units DAILY@0700 DONTA Administration Levothyroxine Sodium 50 mcg 02/17/17 07:00 02/18/17 06:25 Synthroid - PO 50 mcg AM DONTA Administration Losartan Potassium 50 mg 02/16/17 10:45 02/18/17 10:07 Cozaar - PO 50 mg DAILY DONTA Administration Methotrexate 12.5 mg 02/16/17 13:00 02/16/17 14:00 Mexate - PO 12.5 mg We@1000 DONTA Administration Methylprednisolone Sodium Succinate 40 mg 02/18/17 22:00 Solu-Medrol - IVPUSH BID DONTA Montelukast Sodium 10 mg 02/16/17 10:45 02/18/17 10:06 Singulair - PO 10 mg DAILY DONTA Administration [id number] Ethyl Esters 3 gm 02/16/17 10:45 02/18/17 10:06 Lovaza - PO 3 gm DAILY DONTA Administration Pramipexole Dihydrochloride 0.5 mg 02/16/17 10:45 02/18/17 10:07 Mirapex - PO 0.5 mg BID DONTA Administration Sertraline HCl 100 mg 02/16/17 10:45 02/18/17 10:06 Zoloft - PO 100 mg DAILY DONTA Administration Tiotropium [place] 1 puff 02/16/17 10:45 02/18/17 10:05 Spiriva - IH 1 puff DAILY DONTA Administration Topiramate 100 mg 02/16/17 13:45 02/18/17 10:07 Topamax - PO 100 mg BID DONTA Administration ASSESSMENT/PLAN: 61yo F with history of COPD (2L NC baseline), DANY (CPAP), CAD (s/p catherization ), SLE, DM, HTN, HLD who was recently admitted for a COPD exacerbation seen again for worsening dyspnea after decreasing her prednisone dose to 20mg from 60mg s/p discharge. 1) Acute COPD exacerbation --Albuterol nebs QID --Decreased Solumedrol 40mg IVP to q12h (possibility of transition to orals soon) --Spiriva to continue --Singulair to continue --Symbicort to continue --Zithromax day 2 --Titrate O2 >90% SpO2 --Robutussin PRN for cough 2) Gram negative bacteremia --Unknown source --Consult ID --Rec Levaquin. Gentamicin x 1 given pt is on immunosuppresive therapy due to SLE 3) DM --BGM --ISS --Increase Levemir to 22U 4) CAD s/p cath x1, HTN --Continue Cozaar 50mg qDaily --Lipitor 10mg PO HS 5) SLE --Continue home medications --Methotrexate received Wednesdays --Monitor leukocytosis or fever spikes due to immunosuppressant therapy 6) Seizure disorder --Continue carbamazepine home dosing 7) Hypothyroidism --Continue home Synthroid 8) Atypical Chest pain --Most likely 2/2 to cough and increase work of breathing --Ruled out ACS --Has been improving as coughing is under control FEN: Fluids: None currently; tolerating PO Electrolyte abnormalities:None currently Nutrition: Diabetic diet PPX: DVT - Heparin SQ TID Dispo: Continue M/S Case discussed with Dr. Yesi Adams, DO - Internal Medicine PGY-1 Visit type - Emergency Visit Emergency Visit: No - New Patient This patient is new to me today: No - Critical Care Critical Care patient: No
[2017-02-18] MEDS: methylPREDNISolone NA SUCC 40 MG/1 ML VIAL IVPUSH SCH (22:46)
[2017-02-18] MEDS: ATORVASTATIN CA 10 MG TABLET (FP) PO SCH (22:47)
[2017-02-19] MEDS: ALBUTEROL SO4 0.083% IH SOL 2.5 MG/3 ML VIAL.NEB. NEB SCH ×4 (06:00→23:56)
[2017-02-19] MEDS: INSULIN SLIDING SCALE (NOVOLOG) 1 VIAL SQ SCH ×4 (06:27→21:59)
[2017-02-19] MEDS: HEPARIN NA (PORCINE) 5,000 UNITS/ML 1ML VIAL SQ SCH ×3 (06:28→21:58)
[2017-02-19] MEDS: INSULIN DETEMIR 100 UNITS/ML MDV SQ SCH (06:28)
[2017-02-19] MEDS: LEVOTHYROXINE NA 50 MCG TABLET (FP) PO SCH (06:28)
[2017-02-19] MEDS: BUDESONIDE/FORMETEROL FUMARATE 80/4.5 mcg INHALER IH SCH ×2 (09:19→21:59)
[2017-02-19] MEDS: TIOTROPIUM BROMIDE 18 MCG/INH (DEVICE W/ 5 CAPSULES) IH SCH (09:19)
[2017-02-19] MEDS: HYDROXYCHLOROQUINE SO4 200 MG TABLET (FP) PO SCH ×2 (09:20→21:59)
[2017-02-19] MEDS: PRAMIPEXOLE DIHYDROCHLORIDE 0.5 MG TABLET PO SCH ×2 (09:20→21:58)
[2017-02-19] MEDS: TOPIRAMATE 100 MG TABLET PO SCH ×2 (09:20→22:00)
[2017-02-19] MEDS: OMEGA-3 ACID ETHYL ESTERS (FATTY-ACIDS) 1 GM CAPSULE (FP) PO SCH (09:20)
[2017-02-19] MEDS: SERTRALINE HCL 50 MG TABLET (FP) PO SCH (09:27)
[2017-02-19] MEDS: methylPREDNISolone NA SUCC 40 MG/1 ML VIAL IVPUSH SCH (09:27)
[2017-02-19] MEDS: MONTELUKAST NA 10 MG TABLET PO SCH (09:27)
[2017-02-19] MEDS: FOLIC ACID 1 MG TABLET (FP) PO SCH (09:27)
[2017-02-19] MEDS: FUROSEMIDE 40 MG TABLET (FP) PO SCH (09:27)
[2017-02-19] MEDS: LOSARTAN POTASSIUM 50 MG TABLET (FP) PO SCH (09:28)
[2017-02-19] MEDS: LEVOFLOXACIN 750 MG IVPB 750 MG/150 ML BAG IVPB SCH (09:45)
[2017-02-19] MEDS: guaiFENesin/CODEINE 10 ML UNIT-DOSE CUPS PO PRN (09:57)
--- NOTE | 2017-02-19 11:18 | PN ---
Progress Note, Physician History of Present Illness: Awake, alert No complaints No fever/ chills BC GNR ??[place] Pt does not have cats or dogs - Current Medication List Current Medications: Active Medications Acetaminophen (Tylenol -) 650 mg PO Q6H PRN PRN Reason: FEVER OR PAIN Last Admin: 02/17/17 13:57 Dose: 650 mg Albuterol Sulfate (Ventolin 0.083% Nebulizer Soln -) 1 amp NEB QIDR [facility] Last Admin: 02/19/17 06:00 Dose: Not Given Atorvastatin Calcium (Lipitor -) 10 mg PO HS [facility] Last Admin: 02/18/17 22:47 Dose: 10 mg Budesonide/Formoterol Fumarate (Symbicort 80/4.5mcg -) 2 puff IH BID [facility] Last Admin: 02/19/17 09:19 Dose: 2 puff Carbamazepine (Tegretol Xr -) 300 mg PO BID [facility] Last Admin: 02/19/17 09:24 Dose: 300 mg Folic Acid (Folic Acid -) 1 mg PO DAILY [facility] Last Admin: 02/19/17 09:27 Dose: 1 mg Furosemide (Lasix -) 40 mg PO DAILY [facility] Last Admin: 02/19/17 09:27 Dose: 40 mg Guaifenesin/Codeine Phosphate (Robitussin Ac -) 10 ml PO Q6H PRN PRN Reason: COUGH Last Admin: 02/19/17 09:57 Dose: 10 ml Heparin Sodium (Porcine) (Heparin -) 5,000 unit SQ TID [facility] Last Admin: 02/19/17 06:28 Dose: 5,000 unit Hydroxychloroquine Sulfate (Plaquenil -) 200 mg PO BID [facility] Last Admin: 02/19/17 09:20 Dose: 200 mg Levofloxacin (Levaquin 750 Mg Premixed Ivpb -) 750 mg in 150 mls @ 150 mls/hr IVPB DAILY [facility] Last Admin: 02/19/17 09:45 Dose: 150 mls/hr Insulin Aspart (Novolog Vial Sliding Scale -) 1 vial SQ ACHS [facility] PRN Reason: Protocol Last Admin: 02/19/17 06:27 Dose: 4 units Insulin Detemir (Levemir Vial) 22 units SQ DAILY@0700 [facility] Last Admin: 02/19/17 06:28 Dose: 22 units Levothyroxine Sodium (Synthroid -) 50 mcg PO AM [facility] Last Admin: 02/19/17 06:28 Dose: 50 mcg Losartan Potassium (Cozaar -) 50 mg PO DAILY [facility] Last Admin: 02/19/17 09:28 Dose: 50 mg Methotrexate (Mexate -) 12.5 mg PO We@1000 [facility] Last Admin: 02/16/17 14:00 Dose: 12.5 mg Methylprednisolone Sodium Succinate (Solu-Medrol -) 40 mg IVPUSH BID [facility] Last Admin: 02/19/17 09:27 Dose: 40 mg Montelukast Sodium (Singulair -) 10 mg PO DAILY [facility] Last Admin: 02/19/17 09:27 Dose: 10 mg [id number] Ethyl Esters (Lovaza -) 3 gm PO DAILY [facility] Last Admin: 02/19/17 09:20 Dose: 3 gm Pramipexole Dihydrochloride (Mirapex -) 0.5 mg PO BID [facility] Last Admin: 02/19/17 09:20 Dose: 0.5 mg Sertraline HCl (Zoloft -) 100 mg PO DAILY [facility] Last Admin: 02/19/17 09:27 Dose: 100 mg Tiotropium [place] (Spiriva -) 1 puff IH DAILY [facility] Last Admin: 02/19/17 09:19 Dose: 1 puff Topiramate (Topamax -) 100 mg PO BID [facility] Last Admin: 02/19/17 09:20 Dose: 100 mg - Objective Vital Signs: Vital Signs Temperature 98.0 F 02/19/17 06:05 Pulse Rate 69 02/19/17 06:05 Respiratory Rate 20 02/19/17 06:05 Blood Pressure 112/62 02/19/17 06:05 O2 Sat by Pulse Oximetry (%) 95 02/18/17 21:00 Constitutional: Yes: No Distress, Obese Eyes: Yes: Conjunctiva Clear Cardiovascular: Yes: Regular Rate and Rhythm, S1, S2 Respiratory: Yes: Diminished Gastrointestinal: Yes: Normal Bowel Sounds, Soft, Abdomen, Obese. No: Tenderness Edema: No Labs: CBC, BMP 02/18/17 07:05 02/18/17 07:05 INR, PTT INR 0.98 (0.82-1.09) 02/16/17 06:00 Assessment/Plan Gram Negative bacteremia Await final identification Hx Major PCN allergy Acute exacerbation COPD Continue empiric levaquin pending c/s
[2017-02-19] MEDS ORDERED: predniSONE 20 MG TABLET (UD) PO ONE (11:47)
--- NOTE | 2017-02-19 11:51 | PN ---
Teaching Attending Note Name of Resident: . ATTENDING PHYSICIAN STATEMENT Time of evaluation: 8:45 AM I saw and evaluated the patient. I reviewed the resident's note and discussed the case with the resident. I agree with the resident's findings and plan as documented. SUBJECTIVE: Patient seen and examined. breathing continues to improve. No nausea, vomiting, abdominal pain, diarrhea or urinary symptoms. No new fevers or chills. overall feels well. OBJECTIVE: Vital Signs Period Temp Pulse Resp BP Sys/Oconnell Pulse Ox Last 24 Hr 97.8 F-98.4 F 69-91 18-20 109-153/62-103 95 Intake & Output 02/16/17 02/17/17 02/18/17 02/19/17 23:59 23:59 23:59 23:59 Intake Total 1000 1800 100 Balance 1000 1800 100 Weight 345 lb General: sitting in bed in no acute distress Chest: improved air entry bilaterally, no wheezing today Abdomen: soft, obese, NT throughout, no CVA tenderness Extremities: no edema Home Medication List Medication Instructions Recorded Confirmed Type Atorvastatin Ca [Lipitor] 10 mg PO HS 10/20/15 02/16/17 History Biotin [Hard Nails] 5,000 mcg PO DAILY 10/20/15 02/16/17 History Carbamazepine Xr [Tegretol XR -] 300 mg PO BID 10/20/15 02/16/17 History Folic Acid 1 mg PO DAILY 10/20/15 02/16/17 History Levothyroxine [Synthroid -] 50 mcg PO UTDICT 10/20/15 02/16/17 History Methotrexate [Mexate -] 12.5 mg PO WEEKLY 10/20/15 02/16/17 History Montelukast Na [Singulair -] 10 mg PO DAILY 10/20/15 02/16/17 History [place]-3 Fatty Acids [[place]-3] 3 tab PO DAILY 10/20/15 02/16/17 History Sertraline HCl [Zoloft -] 100 mg PO DAILY 10/20/15 02/16/17 History Topiramate [Trokendi Xr] 100 mg PO BID 10/20/15 02/16/17 History Umeclidinium [place] [Incruse 62.5 mcg IH DAILY 10/20/15 02/16/17 History Ellipta] Glipizide 10 mg PO BID 08/13/16 02/16/17 History Hydroxychloroquine Sulfate 200 mg PO BID 08/13/16 02/16/17 History [Plaquenil] Insulin Glargine,Hum.rec.anlog 22 units SQ DAILY 08/13/16 02/16/17 History [Lantus (10mL VIAL) -] Albuterol Sulfate [Proair 90 mcg IH PRN PRN 11/19/16 02/16/17 History Respiclick] Pramipexole Dihydrochloride 0.5 mg PO BID 11/19/16 02/16/17 History [Mirapex -] Furosemide [Lasix -] 1 tab PO DAILY 02/12/17 02/16/17 History Losartan Potassium 1 tab PO DAILY 02/12/17 02/16/17 History Active Medications Generic Name Dose Route Start Last Admin Trade Name Freq PRN Reason Stop Dose Admin Acetaminophen 650 mg 02/17/17 13:29 02/17/17 13:57 Tylenol - PO 650 mg Q6H PRN Administration FEVER OR PAIN Albuterol Sulfate 1 amp 02/16/17 12:00 02/19/17 11:16 Ventolin 0.083% Nebulizer Soln - NEB 1 amp QIDR DONTA Administration Atorvastatin Calcium 10 mg 02/16/17 22:00 02/18/17 22:47 Lipitor - PO 10 mg HS DONTA Administration Budesonide/Formoterol Fumarate 2 puff 02/16/17 10:45 02/19/17 09:19 Symbicort 80/4.5mcg - IH 2 puff BID DONTA Administration Carbamazepine 300 mg 02/16/17 10:45 02/19/17 09:24 Tegretol Xr - PO 300 mg BID DONTA Administration Folic Acid 1 mg 02/16/17 10:45 02/19/17 09:27 Folic Acid - PO 1 mg DAILY DONTA Administration Furosemide 40 mg 02/16/17 10:45 02/19/17 09:27 Lasix - PO 40 mg DAILY DONTA Administration Guaifenesin/Codeine Phosphate 10 ml 02/16/17 10:33 02/19/17 09:57 Robitussin Ac - PO 10 ml Q6H PRN Administration COUGH Heparin Sodium (Porcine) 5,000 unit 02/17/17 06:00 02/19/17 06:28 Heparin - SQ 5,000 unit TID DONTA Administration Hydroxychloroquine Sulfate 200 mg 02/16/17 10:45 02/19/17 09:20 Plaquenil - PO 200 mg BID DONTA Administration Levofloxacin 750 mg in 150 mls @ 150 mls/hr 02/18/17 17:30 02/19/17 09:45 Levaquin 750 Mg Premixed Ivpb - IVPB 150 mls/hr DAILY DONTA Administration Insulin Aspart 1 vial 02/16/17 11:00 02/19/17 06:27 Novolog Vial Sliding Scale - SQ 4 units ACHS DONTA Administration Protocol Insulin Detemir 22 units 02/17/17 16:57 02/19/17 06:28 Levemir Vial SQ 22 units DAILY@0700 DONTA Administration Levothyroxine Sodium 50 mcg 02/17/17 07:00 02/19/17 06:28 Synthroid - PO 50 mcg AM DONTA Administration Losartan Potassium 50 mg 02/16/17 10:45 02/19/17 09:28 Cozaar - PO 50 mg DAILY DONTA Administration Montelukast Sodium 10 mg 02/16/17 10:45 02/19/17 09:27 Singulair - PO 10 mg DAILY DONTA Administration [id number]-[id number] Ethyl Esters 3 gm 02/16/17 10:45 02/19/17 09:20 Lovaza - PO 3 gm DAILY DONTA Administration Pramipexole Dihydrochloride 0.5 mg 02/16/17 10:45 02/19/17 09:20 Mirapex - PO 0.5 mg BID DONTA Administration Prednisone 60 mg 02/20/17 10:00 Deltasone - PO DAILY DONTA Prednisone 20 mg 02/19/17 11:47 Deltasone - PO 02/19/17 11:48 ONCE ONE Sertraline HCl 100 mg 02/16/17 10:45 02/19/17 09:27 Zoloft - PO 100 mg DAILY DONTA Administration Tiotropium [place] 1 puff 02/16/17 10:45 02/19/17 09:19 Spiriva - IH 1 puff DAILY DONTA Administration Topiramate 100 mg 02/16/17 13:45 02/19/17 09:20 Topamax - PO 100 mg BID DONTA Administration Laboratory Results - last 24 hr 02/18/17 02/18/17 02/18/17 07:05 11:47 16:57 POC Glucometer 216 137 Magnesium 2.1 02/18/17 02/19/17 02/19/17 22:34 06:26 11:24 POC Glucometer 134 212 158 Magnesium Microbiology 02/16/17 06:06 Blood - Peripheral Venous Blood Culture - Preliminary Pending Organism 02/16/17 06:00 Blood - Peripheral Venous Blood Culture - Preliminary NO GROWTH OBTAINED AFTER 72 HOURS, INCUBATION TO CONTINUE FOR 2 DAYS. 02/16/17 20:00 Nasopharyngeal Swab Respiratory Virus (PCR) - Preliminary 02/16/17 20:00 Nasopharyngeal Swab Influenza Types A,B Antigen (SERVANDO) - Final 02/16/17 20:00 Nasopharyngeal Swab - Final ASSESSMENT AND PLAN: 61 yof with PMHx of COPD on 2L home oxygen, CAD s/p cath no stent, HTN, HLD, DM , seizure, SLE, hypothyroid, DANY on CPAP, recently admitted with COPD exacerbation comes back with worsening dyspnea after reportedly taking prednisone 20 mg after discharge instead of 60 mg as advised. -Acute COPD exacerbation -GNB bacteremia -Atypical chest pain -CAD s/p cath, no stent -HTN -HLD -DM, with steroid induced hyperglycemia -SLE on immunosuppressants -Seizure disorder -Hypothyroidisms -Morbid obesity s/p gastric banding Plan: improved, changed to prednisone 60 mg daily. Standing nebs. Azithromycin s/p 3 days. At home oxygen needs, continue to monitor. follow u RVP. GNB bacteremia, ?source, ID input appreciated. Levaquin day 2. s/p Gentamicin x 1 on 02/18. Agree given patient on immunosuppressants. Follow up final culture. D/ c methotrexate for now (receives on tuesday) Levemir home dose 22 units, titrate as needed. ISS, diabetic diet. Continue home meds with caution. Chest symptoms more related to coughing and COPD. ACS ruled out. GI/DVTPPX dispo hold off d/c plan given new bacteremia. Plan discussed with patient in detail, all questions answered.
--- NOTE | 2017-02-19 12:37 | PN ---
Progress Note, Physician History of Present Illness: [id number] alert,feeling better,less dyspneic - Current Medication List Current Medications: Active Medications Acetaminophen (Tylenol -) 650 mg PO Q6H PRN PRN Reason: FEVER OR PAIN Last Admin: 02/17/17 13:57 Dose: 650 mg Albuterol Sulfate (Ventolin 0.083% Nebulizer Soln -) 1 amp NEB QIDR [facility] Last Admin: 02/19/17 11:16 Dose: 1 amp Atorvastatin Calcium (Lipitor -) 10 mg PO HS [facility] Last Admin: 02/18/17 22:47 Dose: 10 mg Budesonide/Formoterol Fumarate (Symbicort 80/4.5mcg -) 2 puff IH BID [facility] Last Admin: 02/19/17 09:19 Dose: 2 puff Carbamazepine (Tegretol Xr -) 300 mg PO BID [facility] Last Admin: 02/19/17 09:24 Dose: 300 mg Folic Acid (Folic Acid -) 1 mg PO DAILY [facility] Last Admin: 02/19/17 09:27 Dose: 1 mg Furosemide (Lasix -) 40 mg PO DAILY [facility] Last Admin: 02/19/17 09:27 Dose: 40 mg Guaifenesin/Codeine Phosphate (Robitussin Ac -) 10 ml PO Q6H PRN PRN Reason: COUGH Last Admin: 02/19/17 09:57 Dose: 10 ml Heparin Sodium (Porcine) (Heparin -) 5,000 unit SQ TID [facility] Last Admin: 02/19/17 06:28 Dose: 5,000 unit Hydroxychloroquine Sulfate (Plaquenil -) 200 mg PO BID [facility] Last Admin: 02/19/17 09:20 Dose: 200 mg Levofloxacin (Levaquin 750 Mg Premixed Ivpb -) 750 mg in 150 mls @ 150 mls/hr IVPB DAILY [facility] Last Admin: 02/19/17 09:45 Dose: 150 mls/hr Insulin Aspart (Novolog Vial Sliding Scale -) 1 vial SQ ACHS [facility] PRN Reason: Protocol Last Admin: 02/19/17 12:13 Dose: 2 units Insulin Detemir (Levemir Vial) 22 units SQ DAILY@0700 [facility] Last Admin: 02/19/17 06:28 Dose: 22 units Levothyroxine Sodium (Synthroid -) 50 mcg PO AM [facility] Last Admin: 02/19/17 06:28 Dose: 50 mcg Losartan Potassium (Cozaar -) 50 mg PO DAILY [facility] Last Admin: 02/19/17 09:28 Dose: 50 mg Montelukast Sodium (Singulair -) 10 mg PO DAILY [facility] Last Admin: 02/19/17 09:27 Dose: 10 mg Lgyan-9-Norf Ethyl Esters (Lovaza -) 3 gm PO DAILY [facility] Last Admin: 02/19/17 09:20 Dose: 3 gm Pramipexole Dihydrochloride (Mirapex -) 0.5 mg PO BID [facility] Last Admin: 02/19/17 09:20 Dose: 0.5 mg Prednisone (Deltasone -) 60 mg PO DAILY [facility] Sertraline HCl (Zoloft -) 100 mg PO DAILY [facility] Last Admin: 02/19/17 09:27 Dose: 100 mg Tiotropium [place] (Spiriva -) 1 puff IH DAILY [facility] Last Admin: 02/19/17 09:19 Dose: 1 puff Topiramate (Topamax -) 100 mg PO BID [facility] Last Admin: 02/19/17 09:20 Dose: 100 mg - Objective Vital Signs: Vital Signs Temperature 98.0 F 02/19/17 06:05 Pulse Rate 69 02/19/17 06:05 Respiratory Rate 20 02/19/17 06:05 Blood Pressure 112/62 02/19/17 06:05 O2 Sat by Pulse Oximetry (%) 95 02/18/17 21:00 Constitutional: Yes: Well Nourished, Calm Eyes: Yes: WNL HENT: Yes: WNL Neck: Yes: WNL Cardiovascular: Yes: Regular Rate and Rhythm, S1, S2 Respiratory: Yes: Diminished Gastrointestinal: Yes: Normal Bowel Sounds, Soft Extremities: Yes: WNL Edema: No Labs: CBC, BMP Assessment/Plan Problem List - Problems (1) SLE (systemic lupus erythematosus) Code(s): M32.9 - SYSTEMIC LUPUS ERYTHEMATOSUS, UNSPECIFIED (2) Acute exacerbation of chronic obstructive pulmonary disease (COPD) Code(s): J44.1 - CHRONIC OBSTRUCTIVE PULMONARY DISEASE W (ACUTE) EXACERBATION (3) Atypical chest pain Code(s): R07.89 - OTHER CHEST PAIN (4) COPD (chronic obstructive pulmonary disease) Code(s): J44.9 - CHRONIC OBSTRUCTIVE PULMONARY DISEASE, UNSPECIFIED Qualifiers: COPD type: unspecified COPD Qualified Code(s): J44.9 - Chronic obstructive pulmonary disease, unspecified (5) CHF (congestive heart failure) Code(s): I50.9 - HEART FAILURE, UNSPECIFIED (6) CKD (chronic kidney disease) stage 3, GFR 30-59 ml/min Code(s): N18.3 - CHRONIC KIDNEY DISEASE, STAGE 3 (MODERATE) Assessment/Plan ACUTE EXACERBATION COPD IMPROVING DYSPHONIA NEW ELEVATION OF LEFT HEMIDIAPHRAGM SLE RECENT BARIATRIC SURG (?CAUSE OF LEFT LUCILA ELEVATION) GRAM - BACTEREMIA PREDNISONE BRONCHODILATORS IMMUNOSUPPRESANTS FOR SLE NIPPV/O2 SUPPLEMENTATION ABX PER ID DR DAI
[2017-02-19] MEDS: ATORVASTATIN CA 10 MG TABLET (FP) PO SCH (21:58)
[2017-02-19] MEDS: DOCUSATE SODIUM 100 MG CAPSULE (FP) PO SCH (21:58)
[2017-02-19] MEDS: SENNOSIDES 8.6MG TABLET (FP) PO SCH (21:59)
[2017-02-20] MEDS: ALBUTEROL SO4 0.083% IH SOL 2.5 MG/3 ML VIAL.NEB. NEB SCH ×4 (06:12→23:35)
[2017-02-20] MEDS: HEPARIN NA (PORCINE) 5,000 UNITS/ML 1ML VIAL SQ SCH ×3 (06:36→22:01)
[2017-02-20] MEDS: INSULIN SLIDING SCALE (NOVOLOG) 1 VIAL SQ SCH ×4 (06:36→22:03)
[2017-02-20] MEDS: INSULIN DETEMIR 100 UNITS/ML MDV SQ SCH (06:36)
[2017-02-20] MEDS: LEVOTHYROXINE NA 50 MCG TABLET (FP) PO SCH (06:36)
[2017-02-20] MEDS ORDERED: INSULIN (NOVOLOG) ASPART 100 UNITS/ML 10ML VIAL ONE ×2 (06:47→11:46)
--- NOTE | 2017-02-20 09:39 | PN ---
Progress Note, Physician Chief Complaint: ID Subjective improvement Levofloxacin IV Afebrile Still has couph - Current Medication List Current Medications: Active Medications Acetaminophen (Tylenol -) 650 mg PO Q6H PRN PRN Reason: FEVER OR PAIN Last Admin: 02/17/17 13:57 Dose: 650 mg Albuterol Sulfate (Ventolin 0.083% Nebulizer Soln -) 1 amp NEB QIDR [facility] Last Admin: 02/20/17 06:12 Dose: Not Given Atorvastatin Calcium (Lipitor -) 10 mg PO HS [facility] Last Admin: 02/19/17 21:58 Dose: 10 mg Budesonide/Formoterol Fumarate (Symbicort 80/4.5mcg -) 2 puff IH BID [facility] Last Admin: 02/19/17 21:59 Dose: 2 puff Carbamazepine (Tegretol Xr -) 300 mg PO BID [facility] Last Admin: 02/19/17 22:00 Dose: 300 mg Docusate Sodium (Colace -) 100 mg PO BID [facility] Last Admin: 02/19/17 21:58 Dose: 100 mg Folic Acid (Folic Acid -) 1 mg PO DAILY [facility] Last Admin: 02/19/17 09:27 Dose: 1 mg Furosemide (Lasix -) 40 mg PO DAILY [facility] Last Admin: 02/19/17 09:27 Dose: 40 mg Guaifenesin/Codeine Phosphate (Robitussin Ac -) 10 ml PO Q6H PRN PRN Reason: COUGH Last Admin: 02/19/17 09:57 Dose: 10 ml Heparin Sodium (Porcine) (Heparin -) 5,000 unit SQ TID [facility] Last Admin: 02/20/17 06:36 Dose: 5,000 unit Hydroxychloroquine Sulfate (Plaquenil -) 200 mg PO BID [facility] Last Admin: 02/19/17 21:59 Dose: 200 mg Levofloxacin (Levaquin 750 Mg Premixed Ivpb -) 750 mg in 150 mls @ 150 mls/hr IVPB DAILY [facility] Last Admin: 02/19/17 09:45 Dose: 150 mls/hr Insulin Aspart (Novolog Vial Sliding Scale -) 1 vial SQ ACHS [facility] PRN Reason: Protocol Last Admin: 02/20/17 06:36 Dose: Not Given Insulin Detemir (Levemir Vial) 22 units SQ DAILY@0700 [facility] Last Admin: 02/20/17 06:36 Dose: 22 units Levothyroxine Sodium (Synthroid -) 50 mcg PO AM [facility] Last Admin: 02/20/17 06:36 Dose: 50 mcg Losartan Potassium (Cozaar -) 50 mg PO DAILY [facility] Last Admin: 02/19/17 09:28 Dose: 50 mg Montelukast Sodium (Singulair -) 10 mg PO DAILY [facility] Last Admin: 02/19/17 09:27 Dose: 10 mg Umccp-4-Qply Ethyl Esters (Lovaza -) 3 gm PO DAILY [facility] Last Admin: 02/19/17 09:20 Dose: 3 gm Pramipexole Dihydrochloride (Mirapex -) 0.5 mg PO BID [facility] Last Admin: 02/19/17 21:58 Dose: 0.5 mg Prednisone (Deltasone -) 60 mg PO DAILY [facility] Senna (Senna -) 2 tab PO HS [facility] Last Admin: 02/19/17 21:59 Dose: 2 tab Sertraline HCl (Zoloft -) 100 mg PO DAILY [facility] Last Admin: 02/19/17 09:27 Dose: 100 mg Tiotropium [place] (Spiriva -) 1 puff IH DAILY [facility] Last Admin: 02/19/17 09:19 Dose: 1 puff Topiramate (Topamax -) 100 mg PO BID [facility] Last Admin: 02/19/17 22:00 Dose: 100 mg - Objective Vital Signs: Vital Signs Temperature 97.2 F L 02/20/17 06:00 Pulse Rate 60 02/20/17 06:00 Respiratory Rate 20 02/20/17 06:00 Blood Pressure 114/58 02/20/17 06:00 O2 Sat by Pulse Oximetry (%) 98 02/19/17 21:00 Neck: Yes: WNL, Supple Cardiovascular: Yes: S1, S2 Respiratory: Yes: WNL, Regular, CTA Bilaterally Gastrointestinal: Yes: WNL, Normal Bowel Sounds, Soft Labs: CBC, BMP 02/18/17 07:05 02/18/17 07:05 INR, PTT INR 0.98 (0.82-1.09) 02/16/17 06:00 Assessment/Plan Microbiology 02/16/17 06:06 Blood - Peripheral Venous Blood Culture - Preliminary Pending Organism Laboratory Tests 02/18/17 02/18/17 07:05 07:05 WBC 7.7 D Hgb 12.2 Plt Count 318 BUN 18 Creatinine 1.0 Assessment Exacerbation of COPD Positive blood culture now looking like a contaminant gram post bacillus per lab ( not Listeria) Plan Levoflox can be changed to oral 750 x 3 days Imer WARREN
[2017-02-20] MEDS ORDERED: PT OWN MED DRAWER 7, Y5N ONE ×2 (10:02→13:44)
[2017-02-20] MEDS: HYDROXYCHLOROQUINE SO4 200 MG TABLET (FP) PO SCH ×2 (10:07→22:02)
[2017-02-20] MEDS: DOCUSATE SODIUM 100 MG CAPSULE (FP) PO SCH ×2 (10:07→22:01)
[2017-02-20] MEDS: predniSONE 20 MG TABLET (UD) PO SCH (10:08)
[2017-02-20] MEDS: FUROSEMIDE 40 MG TABLET (FP) PO SCH (10:09)
[2017-02-20] MEDS: FOLIC ACID 1 MG TABLET (FP) PO SCH (10:09)
[2017-02-20] MEDS: SERTRALINE HCL 50 MG TABLET (FP) PO SCH (10:09)
[2017-02-20] MEDS: LEVOFLOXACIN 250 MG TABLET (FP) PO SCH (10:09)
[2017-02-20] MEDS: OMEGA-3 ACID ETHYL ESTERS (FATTY-ACIDS) 1 GM CAPSULE (FP) PO SCH (10:10)
[2017-02-20] MEDS: MONTELUKAST NA 10 MG TABLET PO SCH (10:10)
[2017-02-20] MEDS: PRAMIPEXOLE DIHYDROCHLORIDE 0.5 MG TABLET PO SCH ×2 (10:11→22:02)
[2017-02-20] MEDS: LOSARTAN POTASSIUM 50 MG TABLET (FP) PO SCH (10:11)
[2017-02-20] MEDS: TOPIRAMATE 100 MG TABLET PO SCH ×2 (10:12→22:03)
[2017-02-20] MEDS: TIOTROPIUM BROMIDE 18 MCG/INH (DEVICE W/ 5 CAPSULES) IH SCH (10:13)
[2017-02-20] MEDS: BUDESONIDE/FORMETEROL FUMARATE 80/4.5 mcg INHALER IH SCH ×2 (10:13→22:02)
[2017-02-20 10:14] LABS: BASO % 0.7 % (0-2.0); EOS % 0.4 % (0-4.5); HEMATOCRIT 40.5 % (32.4-45.2); HEMOGLOBIN 13.3 GM/dL (10.7-15.3); LYMPH % 32.2 % (8-40); MCH 29.3 pg (25.7-33.7); MCHC 32.9 g/dl (32.0-36.0); MEAN CELL VOLUME 89.2 fl (80-96); MEAN PLT VOLUME 8.1 fl (7.5-11.1); MONO % 4.6 % (3.8-10.2); NEUT % 62.1 % (42.8-82.8); PLATELET COUNT 351 K/MM3 (134-434); RBC 4.54 M/mm3 (3.60-5.2); RDW 16.4 % (11.6-15.6); WHITE BLOOD COUNT 12.8 K/mm3 (4.0-10.0)
[2017-02-20 10:41] LABS: ALBUMIN 3.7 g/dl (3.4-5.0); ANION GAP 8 (8-16); BILIRUBIN,TOTAL 0.4 mg/dL (0.2-1.0); BLOOD UREA NITROGEN 24 mg/dL (7-18); CALCIUM 9.5 mg/dL (8.5-10.1); CHLORIDE 96 mmol/L (98-107); CO2 30 mmol/L (21-32); CREATININE 1.3 mg/dL (0.55-1.02); GLUCOSE,RANDOM 200 mg/dL (74-106); SGPT/ALT 37 U/L (12-78); SODIUM 134 mmol/L (136-145); TOT PROT 7.9 g/dl (6.4-8.2)
[2017-02-20 10:42] LABS: ALK PHOS 145 U/L (45-117)
[2017-02-20 10:58] LABS: POTASSIUM 3.7 mmol/L (3.5-5.1)
[2017-02-20 10:59] LABS: SGOT/AST 17 U/L (15-37)
--- NOTE | 2017-02-20 11:06 | PN ---
Teaching Attending Note Name of Resident: . ATTENDING PHYSICIAN STATEMENT SUBJECTIVE: patient seen and examined. breathing continues to improve, no new complaints. OBJECTIVE: Vital Signs Period Temp Pulse Resp BP Sys/Oconnell Pulse Ox Last 24 Hr 97.2 F-98.8 F 60-103 20-20 114-146/58-78 98 Intake & Output 02/17/17 02/18/17 02/19/17 02/20/17 23:59 23:59 23:59 23:59 Intake Total 1000 1800 1150 200 Balance 1000 1800 1150 200 General: sitting in bed, no respiratory distress or use of acessory muscles of respiration CVS:S1s2 regular Chest: improved air entry, no rales or wheezing abdomen: soft, obese, NT Extremities: no edema Home Medication List Medication Instructions Recorded Confirmed Type Atorvastatin Ca [Lipitor] 10 mg PO HS 10/20/15 02/16/17 History Biotin [Hard Nails] 5,000 mcg PO DAILY 10/20/15 02/16/17 History Carbamazepine Xr [Tegretol XR -] 300 mg PO BID 10/20/15 02/16/17 History Folic Acid 1 mg PO DAILY 10/20/15 02/16/17 History Levothyroxine [Synthroid -] 50 mcg PO UTDICT 10/20/15 02/16/17 History Methotrexate [Mexate -] 12.5 mg PO WEEKLY 10/20/15 02/16/17 History Montelukast Na [Singulair -] 10 mg PO DAILY 10/20/15 02/16/17 History [place]-3 Fatty Acids [[place]-3] 3 tab PO DAILY 10/20/15 02/16/17 History Sertraline HCl [Zoloft -] 100 mg PO DAILY 10/20/15 02/16/17 History Topiramate [Trokendi Xr] 100 mg PO BID 10/20/15 02/16/17 History Umeclidinium [place] [Incruse 62.5 mcg IH DAILY 10/20/15 02/16/17 History Ellipta] Glipizide 10 mg PO BID 08/13/16 02/16/17 History Hydroxychloroquine Sulfate 200 mg PO BID 08/13/16 02/16/17 History [Plaquenil] Insulin Glargine,Hum.rec.anlog 22 units SQ DAILY 08/13/16 02/16/17 History [Lantus (10mL VIAL) -] Albuterol Sulfate [Proair 90 mcg IH PRN PRN 11/19/16 02/16/17 History Respiclick] Pramipexole Dihydrochloride 0.5 mg PO BID 11/19/16 02/16/17 History [Mirapex -] Furosemide [Lasix -] 1 tab PO DAILY 02/12/17 02/16/17 History Losartan Potassium 1 tab PO DAILY 02/12/17 02/16/17 History Active Medications Generic Name Dose Route Start Last Admin Trade Name Freq PRN Reason Stop Dose Admin Acetaminophen 650 mg 02/17/17 13:29 02/17/17 13:57 Tylenol - PO 650 mg Q6H PRN Administration FEVER OR PAIN Albuterol Sulfate 1 amp 02/16/17 12:00 02/20/17 06:12 Ventolin 0.083% Nebulizer Soln - NEB Not Given QIDR [facility] Atorvastatin Calcium 10 mg 02/16/17 22:00 02/19/17 21:58 Lipitor - PO 10 mg HS [facility] Administration Budesonide/Formoterol Fumarate 2 puff 02/16/17 10:45 02/20/17 10:13 Symbicort 80/4.5mcg - IH 2 puff BID [facility] Administration Carbamazepine 300 mg 02/16/17 10:45 02/20/17 10:12 Tegretol Xr - PO 300 mg BID [facility] Administration Docusate Sodium 100 mg 02/19/17 22:00 02/20/17 10:07 Colace - PO 100 mg BID [facility] Administration Folic Acid 1 mg 02/16/17 10:45 02/20/17 10:09 Folic Acid - PO 1 mg DAILY [facility] Administration Furosemide 40 mg 02/16/17 10:45 02/20/17 10:09 Lasix - PO 40 mg DAILY [facility] Administration Guaifenesin/Codeine Phosphate 10 ml 02/16/17 10:33 02/19/17 09:57 Robitussin Ac - PO 10 ml Q6H PRN Administration COUGH Heparin Sodium (Porcine) 5,000 unit 02/17/17 06:00 02/20/17 06:36 Heparin - SQ 5,000 unit TID [facility] Administration Hydroxychloroquine Sulfate 200 mg 02/16/17 10:45 02/20/17 10:07 Plaquenil - PO 200 mg BID [facility] Administration Sodium Chloride 1,000 mls @ 75 mls/hr 02/20/17 11:15 Normal Saline - IV 02/20/17 23:14 ASDIR [facility] Insulin Aspart 1 vial 02/16/17 11:00 02/20/17 06:36 Novolog Vial Sliding Scale - SQ Not Given ACHS [facility] Protocol Insulin Detemir 22 units 02/17/17 16:57 02/20/17 06:36 Levemir Vial SQ 22 units DAILY@0700 [facility] Administration Levofloxacin 750 mg 02/20/17 10:00 02/20/17 10:09 Levaquin - PO 750 mg DAILY [facility] Administration Levothyroxine Sodium 50 mcg 02/17/17 07:00 02/20/17 06:36 Synthroid - PO 50 mcg AM [facility] Administration Losartan Potassium 50 mg 02/16/17 10:45 02/20/17 10:11 Cozaar - PO 50 mg DAILY [facility] Administration Montelukast Sodium 10 mg 02/16/17 10:45 02/20/17 10:10 Singulair - PO 10 mg DAILY [facility] Administration Ppgtq-0-Ifkg Ethyl Esters 3 gm 02/16/17 10:45 02/20/17 10:10 Lovaza - PO 3 gm DAILY [facility] Administration Pramipexole Dihydrochloride 0.5 mg 02/16/17 10:45 02/20/17 10:11 Mirapex - PO 0.5 mg BID [facility] Administration Prednisone 60 mg 02/20/17 10:00 02/20/17 10:08 Deltasone - PO 60 mg DAILY [facility] Administration Senna 2 tab 02/19/17 22:00 02/19/17 21:59 Senna - PO 2 tab HS [facility] Administration Sertraline HCl 100 mg 02/16/17 10:45 02/20/17 10:09 Zoloft - PO 100 mg DAILY [facility] Administration Tiotropium [place] 1 puff 02/16/17 10:45 02/20/17 10:13 Spiriva - IH 1 puff DAILY [facility] Administration Topiramate 100 mg 02/16/17 13:45 02/20/17 10:12 Topamax - PO 100 mg BID [facility] Administration Laboratory Results - last 24 hr 02/19/17 02/19/17 02/19/17 11:24 16:18 21:18 WBC RBC Hgb Hct MCV MCH MCHC RDW Plt Count MPV Neutrophils % Lymphocytes % Monocytes % Eosinophils % Basophils % Sodium Potassium Chloride Carbon Dioxide Anion Gap BUN Creatinine Creat Clearance w eGFR POC Glucometer 158 192 219 Random Glucose Calcium Total Bilirubin AST ALT Alkaline Phosphatase Total Protein Albumin 02/20/17 02/20/17 02/20/17 06:26 10:05 10:05 WBC 12.8 H D RBC 4.54 Hgb 13.3 Hct 40.5 MCV 89.2 MCH 29.3 MCHC 32.9 RDW 16.4 H Plt Count 351 MPV 8.1 Neutrophils % 62.1 D Lymphocytes % 32.2 D Monocytes % 4.6 Eosinophils % 0.4 Basophils % 0.7 Sodium 134 L Potassium 3.7 D Chloride 96 L Carbon Dioxide 30 D Anion Gap 8 BUN 24 H D Creatinine 1.3 H D Creat Clearance w eGFR 41.78 POC Glucometer 148 Random Glucose 200 H D Calcium 9.5 Total Bilirubin 0.4 D AST 17 D ALT 37 Alkaline Phosphatase 145 H Total Protein 7.9 Albumin 3.7 Microbiology 02/18/17 21:00 Urine - Urine Clean Catch Urine Culture - Final NO GROWTH OBTAINED 02/16/17 06:06 Blood - Peripheral Venous Blood Culture - Preliminary Pending Organism 02/16/17 06:00 Blood - Peripheral Venous Blood Culture - Preliminary NO GROWTH OBTAINED AFTER 96 HOURS, INCUBATION TO CONTINUE FOR 1 DAYS. 02/16/17 20:00 Nasopharyngeal Swab Respiratory Virus (PCR) - Preliminary 02/16/17 20:00 Nasopharyngeal Swab Influenza Types A,B Antigen (SERVANDO) - Final 02/16/17 20:00 Nasopharyngeal Swab - Final ASSESSMENT AND PLAN: 61 yof with PMHx of COPD on 2L home oxygen, CAD s/p cath no stent, HTN, HLD, DM , seizure, SLE, hypothyroid, DANY on CPAP, recently admitted with COPD exacerbation comes back with worsening dyspnea after reportedly taking prednisone 20 mg after discharge instead of 60 mg as advised. -Acute COPD exacerbation -Gm positive bacillus bacteremia, ?contaminant. -Atypical chest pain -Mild NAN today with hyponatremia -CAD s/p cath, no stent -HTN -HLD -DM, with steroid induced hyperglycemia -SLE on immunosuppressants -Seizure disorder -Hypothyroidisms -Morbid obesity s/p gastric banding Plan: improved, changed to prednisone 60 mg daily. Standing nebs. Slow taper by 10 mg every 4-5 days. Discussed with patient, to continue meds as advised on dc. Azithromycin s/p 3 days. At home oxygen needs, continue to monitor. follow u RVP. Discussed with Dr. Willams, blood cx now reporting GP bacillus, likely contaminant. Plan for levaquin x 3 days. Patient continues to improve clinically. D/c methotrexate for now (receives on tuesday) Mild NAN today, will place on NS at75 x12 hours, repeat labs in AM. Mild leucocytosis today, clinically improved, monitor for now Levemir home dose 22 units, titrate as needed. ISS, diabetic diet. resume glipizide in 24 hours based on blood sugars. Continue home meds Chest symptoms more related to coughing and COPD. ACS ruled out. GI/DVTPPX dispo check ambulatory oxygen saturations, d/c in 24hours on oral antibiotics and prednisone if continues to improve. Plan discussed with patient in detail, all questions answered.
[2017-02-20] MEDS ORDERED: SODIUM CHLORIDE 1,000 ML IV SCH (11:15)
--- NOTE | 2017-02-20 12:37 | PN ---
Progress Note, Physician History of Present Illness: pulmonary alert,feeling better,less dyspneic - Current Medication List Current Medications: Active Medications Acetaminophen (Tylenol -) 650 mg PO Q6H PRN PRN Reason: FEVER OR PAIN Last Admin: 02/17/17 13:57 Dose: 650 mg Albuterol Sulfate (Ventolin 0.083% Nebulizer Soln -) 1 amp NEB QIDR [facility] Last Admin: 02/20/17 11:18 Dose: 1 amp Atorvastatin Calcium (Lipitor -) 10 mg PO HS [facility] Last Admin: 02/19/17 21:58 Dose: 10 mg Budesonide/Formoterol Fumarate (Symbicort 80/4.5mcg -) 2 puff IH BID [facility] Last Admin: 02/20/17 10:13 Dose: 2 puff Carbamazepine (Tegretol Xr -) 300 mg PO BID [facility] Last Admin: 02/20/17 10:12 Dose: 300 mg Docusate Sodium (Colace -) 100 mg PO BID [facility] Last Admin: 02/20/17 10:07 Dose: 100 mg Folic Acid (Folic Acid -) 1 mg PO DAILY [facility] Last Admin: 02/20/17 10:09 Dose: 1 mg Furosemide (Lasix -) 40 mg PO DAILY [facility] Last Admin: 02/20/17 10:09 Dose: 40 mg Guaifenesin/Codeine Phosphate (Robitussin Ac -) 10 ml PO Q6H PRN PRN Reason: COUGH Last Admin: 02/19/17 09:57 Dose: 10 ml Heparin Sodium (Porcine) (Heparin -) 5,000 unit SQ TID [facility] Last Admin: 02/20/17 06:36 Dose: 5,000 unit Hydroxychloroquine Sulfate (Plaquenil -) 200 mg PO BID [facility] Last Admin: 02/20/17 10:07 Dose: 200 mg Sodium Chloride (Normal Saline -) 1,000 mls @ 75 mls/hr IV ASDIR [facility] Stop: 02/20/17 23:14 Insulin Aspart (Novolog Vial Sliding Scale -) 1 vial SQ ACHS [facility] PRN Reason: Protocol Last Admin: 02/20/17 11:49 Dose: Not Given Insulin Detemir (Levemir Vial) 22 units SQ DAILY@0700 [facility] Last Admin: 02/20/17 06:36 Dose: 22 units Levofloxacin (Levaquin -) 750 mg PO DAILY [facility] Last Admin: 02/20/17 10:09 Dose: 750 mg Levothyroxine Sodium (Synthroid -) 50 mcg PO AM [facility] Last Admin: 02/20/17 06:36 Dose: 50 mcg Losartan Potassium (Cozaar -) 50 mg PO DAILY [facility] Last Admin: 02/20/17 10:11 Dose: 50 mg Montelukast Sodium (Singulair -) 10 mg PO DAILY [facility] Last Admin: 02/20/17 10:10 Dose: 10 mg Pmerv-8-Cttv Ethyl Esters (Lovaza -) 3 gm PO DAILY [facility] Last Admin: 02/20/17 10:10 Dose: 3 gm Pramipexole Dihydrochloride (Mirapex -) 0.5 mg PO BID [facility] Last Admin: 02/20/17 10:11 Dose: 0.5 mg Prednisone (Deltasone -) 60 mg PO DAILY [facility] Last Admin: 02/20/17 10:08 Dose: 60 mg Senna (Senna -) 2 tab PO HS [facility] Last Admin: 02/19/17 21:59 Dose: 2 tab Sertraline HCl (Zoloft -) 100 mg PO DAILY [facility] Last Admin: 02/20/17 10:09 Dose: 100 mg Tiotropium [place] (Spiriva -) 1 puff IH DAILY [facility] Last Admin: 02/20/17 10:13 Dose: 1 puff Topiramate (Topamax -) 100 mg PO BID [facility] Last Admin: 02/20/17 10:12 Dose: 100 mg - Objective Vital Signs: Vital Signs Temperature 97.2 F L 02/20/17 06:00 Pulse Rate 91 H 02/20/17 10:00 Respiratory Rate 18 02/20/17 10:00 Blood Pressure 120/92 02/20/17 10:00 O2 Sat by Pulse Oximetry (%) 98 02/19/17 21:00 Constitutional: Yes: Well Nourished, Calm Eyes: Yes: WNL HENT: Yes: WNL Neck: Yes: WNL Cardiovascular: Yes: Regular Rate and Rhythm, S1, S2 Respiratory: Yes: CTA Bilaterally Gastrointestinal: Yes: Normal Bowel Sounds, Soft Extremities: Yes: WNL Edema: Yes Edema: LLE: Trace, RLE: Trace Labs: CBC, BMP 02/20/17 10:05 02/20/17 10:05 INR, PTT INR 0.98 (0.82-1.09) 02/16/17 06:00 Assessment/Plan Problem List - Problems (1) SLE (systemic lupus erythematosus) Code(s): M32.9 - SYSTEMIC LUPUS ERYTHEMATOSUS, UNSPECIFIED (2) Acute exacerbation of chronic obstructive pulmonary disease (COPD) Code(s): J44.1 - CHRONIC OBSTRUCTIVE PULMONARY DISEASE W (ACUTE) EXACERBATION (3) Atypical chest pain Code(s): R07.89 - OTHER CHEST PAIN (4) COPD (chronic obstructive pulmonary disease) Code(s): J44.9 - CHRONIC OBSTRUCTIVE PULMONARY DISEASE, UNSPECIFIED Qualifiers: COPD type: unspecified COPD Qualified Code(s): J44.9 - Chronic obstructive pulmonary disease, unspecified (5) CHF (congestive heart failure) Code(s): I50.9 - HEART FAILURE, UNSPECIFIED (6) CKD (chronic kidney disease) stage 3, GFR 30-59 ml/min Code(s): N18.3 - CHRONIC KIDNEY DISEASE, STAGE 3 (MODERATE) Assessment/Plan ACUTE EXACERBATION COPD IMPROVING DYSPHONIA NEW ELEVATION OF LEFT HEMIDIAPHRAGM SLE RECENT BARIATRIC SURG (?CAUSE OF LEFT LUCILA ELEVATION) GRAM - BACTEREMIA PREDNISONE BRONCHODILATORS IMMUNOSUPPRESANTS FOR SLE NIPPV/O2 SUPPLEMENTATION ABX PER ID PFTS OUTPATIENT DR DAI
[2017-02-20] MEDS: ATORVASTATIN CA 10 MG TABLET (FP) PO SCH (22:02)
[2017-02-20] MEDS: SENNOSIDES 8.6MG TABLET (FP) PO SCH (22:02)
[2017-02-21] MEDS: ALBUTEROL SO4 0.083% IH SOL 2.5 MG/3 ML VIAL.NEB. NEB SCH (06:18)
[2017-02-21] MEDS: INSULIN SLIDING SCALE (NOVOLOG) 1 VIAL SQ SCH ×4 (06:36→22:55)
[2017-02-21] MEDS: HEPARIN NA (PORCINE) 5,000 UNITS/ML 1ML VIAL SQ SCH ×3 (06:36→22:52)
[2017-02-21] MEDS: INSULIN DETEMIR 100 UNITS/ML MDV SQ SCH (06:36)
[2017-02-21] MEDS: LEVOTHYROXINE NA 50 MCG TABLET (FP) PO SCH (06:37)
[2017-02-21] MEDS ORDERED: INSULIN (NOVOLOG) ASPART 100 UNITS/ML 10ML VIAL ONE ×2 (06:54→11:29)
[2017-02-21 07:59] LABS: ANION GAP 10 (8-16); BLOOD UREA NITROGEN 20 mg/dL (7-18); CALCIUM 9.2 mg/dL (8.5-10.1); CHLORIDE 103 mmol/L (98-107); CO2 25 mmol/L (21-32); CREATININE 1.1 mg/dL (0.55-1.02); GLUCOSE,RANDOM 137 mg/dL (74-106); MAGNESIUM 2.2 mg/dL (1.8-2.4); SODIUM 138 mmol/L (136-145)
[2017-02-21 10:16] LABS: BASO % 0.8 % (0-2.0); EOS % 0.1 % (0-4.5); HEMATOCRIT 40.1 % (32.4-45.2); HEMOGLOBIN 12.9 GM/dL (10.7-15.3); LYMPH % 33.5 % (8-40); MCH 28.8 pg (25.7-33.7); MCHC 32.1 g/dl (32.0-36.0); MEAN CELL VOLUME 89.9 fl (80-96); MEAN PLT VOLUME 7.9 fl (7.5-11.1); MONO % 6.6 % (3.8-10.2); PLATELET COUNT 330 K/MM3 (134-434); RBC 4.46 M/mm3 (3.60-5.2); RDW 16.5 % (11.6-15.6); WHITE BLOOD COUNT 12.1 K/mm3 (4.0-10.0)
[2017-02-21] MEDS: LEVOFLOXACIN 250 MG TABLET (FP) PO SCH (11:20)
[2017-02-21] MEDS: FUROSEMIDE 40 MG TABLET (FP) PO SCH (11:20)
[2017-02-21] MEDS: FOLIC ACID 1 MG TABLET (FP) PO SCH (11:20)
[2017-02-21] MEDS: predniSONE 20 MG TABLET (UD) PO SCH (11:20)
[2017-02-21] MEDS: LOSARTAN POTASSIUM 50 MG TABLET (FP) PO SCH (11:20)
[2017-02-21] MEDS: DOCUSATE SODIUM 100 MG CAPSULE (FP) PO SCH ×2 (11:20→22:52)
[2017-02-21] MEDS: OMEGA-3 ACID ETHYL ESTERS (FATTY-ACIDS) 1 GM CAPSULE (FP) PO SCH (11:21)
[2017-02-21] MEDS: PRAMIPEXOLE DIHYDROCHLORIDE 0.5 MG TABLET PO SCH ×2 (11:21→22:52)
[2017-02-21] MEDS: MONTELUKAST NA 10 MG TABLET PO SCH (11:22)
[2017-02-21] MEDS: TIOTROPIUM BROMIDE 18 MCG/INH (DEVICE W/ 5 CAPSULES) IH SCH (11:22)
[2017-02-21] MEDS: BUDESONIDE/FORMETEROL FUMARATE 80/4.5 mcg INHALER IH SCH (11:22)
[2017-02-21] MEDS: SERTRALINE HCL 50 MG TABLET (FP) PO SCH (11:22)
[2017-02-21] MEDS: HYDROXYCHLOROQUINE SO4 200 MG TABLET (FP) PO SCH ×2 (11:22→22:52)
[2017-02-21] MEDS: TOPIRAMATE 100 MG TABLET PO SCH ×2 (11:22→22:52)
--- NOTE | 2017-02-21 13:32 | PN ---
Progress Note, Physician History of Present Illness: pulmonary alert,c/o increased sob today - Current Medication List Current Medications: Active Medications Acetaminophen (Tylenol -) 650 mg PO Q6H PRN PRN Reason: FEVER OR PAIN Last Admin: 02/17/17 13:57 Dose: 650 mg Atorvastatin Calcium (Lipitor -) 10 mg PO HS [facility] Last Admin: 02/20/17 22:02 Dose: 10 mg Budesonide/Formoterol Fumarate (Symbicort 80/4.5mcg -) 2 puff IH BID [facility] Last Admin: 02/21/17 11:22 Dose: 2 puff Carbamazepine (Tegretol Xr -) 300 mg PO BID [facility] Last Admin: 02/21/17 11:23 Dose: 300 mg Docusate Sodium (Colace -) 100 mg PO BID [facility] Last Admin: 02/21/17 11:20 Dose: 100 mg Folic Acid (Folic Acid -) 1 mg PO DAILY [facility] Last Admin: 02/21/17 11:20 Dose: 1 mg Furosemide (Lasix -) 40 mg PO DAILY [facility] Last Admin: 02/21/17 11:20 Dose: 40 mg Guaifenesin/Codeine Phosphate (Robitussin Ac -) 10 ml PO Q6H PRN PRN Reason: COUGH Last Admin: 02/19/17 09:57 Dose: 10 ml Heparin Sodium (Porcine) (Heparin -) 5,000 unit SQ TID [facility] Last Admin: 02/21/17 06:36 Dose: 5,000 unit Hydroxychloroquine Sulfate (Plaquenil -) 200 mg PO BID [facility] Last Admin: 02/21/17 11:22 Dose: 200 mg Insulin Aspart (Novolog Vial Sliding Scale -) 1 vial SQ ACHS [facility] PRN Reason: Protocol Last Admin: 02/21/17 11:38 Dose: Not Given Insulin Detemir (Levemir Vial) 22 units SQ DAILY@0700 [facility] Last Admin: 02/21/17 06:36 Dose: 22 units Levofloxacin (Levaquin -) 750 mg PO DAILY [facility] Last Admin: 02/21/17 11:20 Dose: 750 mg Levothyroxine Sodium (Synthroid -) 50 mcg PO AM [facility] Last Admin: 02/21/17 06:37 Dose: 50 mcg Losartan Potassium (Cozaar -) 50 mg PO DAILY [facility] Last Admin: 02/21/17 11:20 Dose: 50 mg Montelukast Sodium (Singulair -) 10 mg PO DAILY [facility] Last Admin: 02/21/17 11:22 Dose: 10 mg Veksc-2-Kshv Ethyl Esters (Lovaza -) 3 gm PO DAILY [facility] Last Admin: 02/21/17 11:21 Dose: 3 gm Pramipexole Dihydrochloride (Mirapex -) 0.5 mg PO BID [facility] Last Admin: 02/21/17 11:21 Dose: 0.5 mg Prednisone (Deltasone -) 60 mg PO DAILY [facility] Last Admin: 02/21/17 11:20 Dose: 60 mg Senna (Senna -) 2 tab PO HS [facility] Last Admin: 02/20/17 22:02 Dose: 2 tab Sertraline HCl (Zoloft -) 100 mg PO DAILY [facility] Last Admin: 02/21/17 11:22 Dose: 100 mg Tiotropium [place] (Spiriva -) 1 puff IH DAILY [facility] Last Admin: 02/21/17 11:22 Dose: 1 puff Topiramate (Topamax -) 100 mg PO BID [facility] Last Admin: 02/21/17 11:22 Dose: 100 mg - Objective Vital Signs: Vital Signs Temperature 99.9 F H 02/21/17 09:30 Pulse Rate 89 02/21/17 09:37 Respiratory Rate 20 02/21/17 09:30 Blood Pressure 140/53 02/21/17 09:30 O2 Sat by Pulse Oximetry (%) 99 02/21/17 09:37 Constitutional: Yes: Well Nourished, Calm Eyes: Yes: WNL Neck: Yes: WNL Cardiovascular: Yes: Regular Rate and Rhythm, S1, S2 Respiratory: Yes: Wheezes (few wheezes) Gastrointestinal: Yes: Normal Bowel Sounds, Soft Extremities: Yes: WNL Edema: No Labs: CBC, BMP 02/21/17 09:35 02/21/17 07:00 INR, PTT INR 0.98 (0.82-1.09) 02/16/17 06:00 Assessment/Plan Problem List - Problems (1) SLE (systemic lupus erythematosus) Code(s): M32.9 - SYSTEMIC LUPUS ERYTHEMATOSUS, UNSPECIFIED (2) Acute exacerbation of chronic obstructive pulmonary disease (COPD) Code(s): J44.1 - CHRONIC OBSTRUCTIVE PULMONARY DISEASE W (ACUTE) EXACERBATION (3) Atypical chest pain Code(s): R07.89 - OTHER CHEST PAIN (4) COPD (chronic obstructive pulmonary disease) Code(s): J44.9 - CHRONIC OBSTRUCTIVE PULMONARY DISEASE, UNSPECIFIED Qualifiers: COPD type: unspecified COPD Qualified Code(s): J44.9 - Chronic obstructive pulmonary disease, unspecified (5) CHF (congestive heart failure) Code(s): I50.9 - HEART FAILURE, UNSPECIFIED (6) CKD (chronic kidney disease) stage 3, GFR 30-59 ml/min Code(s): N18.3 - CHRONIC KIDNEY DISEASE, STAGE 3 (MODERATE) Assessment/Plan ACUTE EXACERBATION COPD IMPROVING DYSPHONIA NEW ELEVATION OF LEFT HEMIDIAPHRAGM SLE RECENT BARIATRIC SURG (?CAUSE OF ELEVATED LEFT LUCILA-DIAPHRAGM) GRAM - BACTEREMIA PREDNISONE BRONCHODILATORS IMMUNOSUPPRESANTS FOR SLE NIPPV/O2 SUPPLEMENTATION ABX PER ID PFTS OUTPATIENT DR DAI
--- NOTE | 2017-02-21 13:44 | PN ---
Teaching Attending Note Name of Resident: Morgan Adams ATTENDING PHYSICIAN STATEMENT Time of evaluation: 11:15 AM I saw and evaluated the patient. I reviewed the resident's note and discussed the case with the resident. I agree with the resident's findings and plan as documented. SUBJECTIVE: patient seen and examined. breathing improved, no new complaints. OBJECTIVE: Vital Signs Period Temp Pulse Resp BP Sys/Oconnell Pulse Ox Last 24 Hr 97.2 F-99.9 F 62-114 20-20 103-142/45-83 96-99 Intake & Output 02/18/17 02/19/17 02/20/17 02/21/17 23:59 23:59 23:59 23:59 Intake Total 1800 4720 472 4672 Balance 1800 0566 618 [id number] General: sitting in bed in no acute distress CVS;S1s2 regular Chest: markedly improved air entry, no wheezing abdomen: soft, obese, NT Extremities: no edema Home Medication List Medication Instructions Recorded Confirmed Type Atorvastatin Ca [Lipitor] 10 mg PO HS 10/20/15 02/16/17 History Biotin [Hard Nails] 5,000 mcg PO DAILY 10/20/15 02/16/17 History Carbamazepine Xr [Tegretol XR -] 300 mg PO BID 10/20/15 02/16/17 History Folic Acid 1 mg PO DAILY 10/20/15 02/16/17 History Levothyroxine [Synthroid -] 50 mcg PO UTDICT 10/20/15 02/16/17 History Methotrexate [Mexate -] 12.5 mg PO WEEKLY 10/20/15 02/16/17 History Montelukast Na [Singulair -] 10 mg PO DAILY 10/20/15 02/16/17 History [place]-3 Fatty Acids [[place]-3] 3 tab PO DAILY 10/20/15 02/16/17 History Sertraline HCl [Zoloft -] 100 mg PO DAILY 10/20/15 02/16/17 History Topiramate [Trokendi Xr] 100 mg PO BID 10/20/15 02/16/17 History Umeclidinium [place] [Incruse 62.5 mcg IH DAILY 10/20/15 02/16/17 History Ellipta] Glipizide 10 mg PO BID 08/13/16 02/16/17 History Hydroxychloroquine Sulfate 200 mg PO BID 08/13/16 02/16/17 History [Plaquenil] Insulin Glargine,Hum.rec.anlog 22 units SQ DAILY 08/13/16 02/16/17 History [Lantus (10mL VIAL) -] Albuterol Sulfate [Proair 90 mcg IH PRN PRN 11/19/16 02/16/17 History Respiclick] Pramipexole Dihydrochloride 0.5 mg PO BID 11/19/16 02/16/17 History [Mirapex -] Furosemide [Lasix -] 1 tab PO DAILY 02/12/17 02/16/17 History Losartan Potassium 1 tab PO DAILY 02/12/17 02/16/17 History Active Medications Generic Name Dose Route Start Last Admin Trade Name Freq PRN Reason Stop Dose Admin Acetaminophen 650 mg 02/17/17 13:29 02/17/17 13:57 Tylenol - PO 650 mg Q6H PRN Administration FEVER OR PAIN Atorvastatin Calcium 10 mg 02/16/17 22:00 02/20/17 22:02 Lipitor - PO 10 mg HS DONTA Administration Budesonide/Formoterol Fumarate 2 puff 02/21/17 22:00 Symbicort 160/4.5mcg - IH BID DONTA Carbamazepine 300 mg 02/16/17 10:45 02/21/17 11:23 Tegretol Xr - PO 300 mg BID DONTA Administration Docusate Sodium 100 mg 02/19/17 22:00 02/21/17 11:20 Colace - PO 100 mg BID DONTA Administration Folic Acid 1 mg 02/16/17 10:45 02/21/17 11:20 Folic Acid - PO 1 mg DAILY DONTA Administration Furosemide 40 mg 02/16/17 10:45 02/21/17 11:20 Lasix - PO 40 mg DAILY DONTA Administration Guaifenesin/Codeine Phosphate 10 ml 02/16/17 10:33 02/19/17 09:57 Robitussin Ac - PO 10 ml Q6H PRN Administration COUGH Heparin Sodium (Porcine) 5,000 unit 02/17/17 06:00 02/21/17 06:36 Heparin - SQ 5,000 unit TID DONTA Administration Hydroxychloroquine Sulfate 200 mg 02/16/17 10:45 02/21/17 11:22 Plaquenil - PO 200 mg BID DONTA Administration Insulin Aspart 1 vial 02/16/17 11:00 02/21/17 11:38 Novolog Vial Sliding Scale - SQ Not Given ACHS [facility] Protocol Insulin Detemir 22 units 02/17/17 16:57 02/21/17 06:36 Levemir Vial SQ 22 units DAILY@0700 DONTA Administration Levofloxacin 750 mg 02/20/17 10:00 02/21/17 11:20 Levaquin - PO 750 mg DAILY DONTA Administration Levothyroxine Sodium 50 mcg 02/17/17 07:00 02/21/17 06:37 Synthroid - PO 50 mcg AM DONTA Administration Losartan Potassium 50 mg 02/16/17 10:45 02/21/17 11:20 Cozaar - PO 50 mg DAILY DONTA Administration Montelukast Sodium 10 mg 02/16/17 10:45 02/21/17 11:22 Singulair - PO 10 mg DAILY DONTA Administration [id number]-[id number] Ethyl Esters 3 gm 02/16/17 10:45 02/21/17 11:21 Lovaza - PO 3 gm DAILY DONTA Administration Pramipexole Dihydrochloride 0.5 mg 02/16/17 10:45 02/21/17 11:21 Mirapex - PO 0.5 mg BID DONTA Administration Prednisone 60 mg 02/20/17 10:00 02/21/17 11:20 Deltasone - PO 60 mg DAILY DONTA Administration Senna 2 tab 02/19/17 22:00 02/20/17 22:02 Senna - PO 2 tab HS DONTA Administration Sertraline HCl 100 mg 02/16/17 10:45 02/21/17 11:22 Zoloft - PO 100 mg DAILY DONTA Administration Tiotropium [place] 1 puff 02/16/17 10:45 02/21/17 11:22 Spiriva - IH 1 puff DAILY DONTA Administration Topiramate 100 mg 02/16/17 13:45 02/21/17 11:22 Topamax - PO 100 mg BID DONTA Administration Laboratory Results - last 24 hr 02/20/17 02/20/17 02/21/17 17:40 20:56 05:43 WBC Corrected WBC (auto) RBC Hgb Hct MCV MCH MCHC RDW Plt Count MPV Neutrophils % Lymphocytes % Monocytes % Eosinophils % Basophils % Nucleated RBC % Platelet Estimate Platelet Comment Sodium Potassium Chloride Carbon Dioxide Anion Gap BUN Creatinine POC Glucometer 287 237 152 Random Glucose Calcium Magnesium 02/21/17 02/21/17 02/21/17 07:00 07:00 09:35 WBC Cancelled 12.1 H Corrected WBC (auto) Cancelled RBC Cancelled 4.46 Hgb Cancelled 12.9 Hct Cancelled 40.1 MCV Cancelled 89.9 MCH Cancelled 28.8 MCHC Cancelled 32.1 RDW Cancelled 16.5 H Plt Count Cancelled 330 MPV Cancelled 7.9 Neutrophils % Cancelled 59.0 Lymphocytes % Cancelled 33.5 Monocytes % Cancelled 6.6 Eosinophils % Cancelled 0.1 Basophils % Cancelled 0.8 Nucleated RBC % Cancelled Platelet Estimate Cancelled Platelet Comment Cancelled Sodium 138 Potassium 4.0 Chloride 103 Carbon Dioxide 25 Anion Gap 10 BUN 20 H Creatinine 1.1 H POC Glucometer Random Glucose 137 H D Calcium 9.2 Magnesium 2.2 02/21/17 11:38 WBC Corrected WBC (auto) RBC Hgb Hct MCV MCH MCHC RDW Plt Count MPV Neutrophils % Lymphocytes % Monocytes % Eosinophils % Basophils % Nucleated RBC % Platelet Estimate Platelet Comment Sodium Potassium Chloride Carbon Dioxide Anion Gap BUN Creatinine POC Glucometer 145 Random Glucose Calcium Magnesium Microbiology 02/16/17 06:06 Blood - Peripheral Venous Blood Culture - Preliminary Bacillus Species 02/16/17 06:00 Blood - Peripheral Venous Blood Culture - Final NO GROWTH AFTER 5 DAYS INCUBATION 02/18/17 21:00 Urine - Urine Clean Catch Urine Culture - Final NO GROWTH OBTAINED 02/16/17 20:00 Nasopharyngeal Swab Respiratory Virus (PCR) - Preliminary 02/16/17 20:00 Nasopharyngeal Swab Influenza Types A,B Antigen (SERVANDO) - Final 02/16/17 20:00 Nasopharyngeal Swab - Final ASSESSMENT AND PLAN: 61 yof with PMHx of COPD on 2L home oxygen, CAD s/p cath no stent, HTN, HLD, DM , seizure, SLE, hypothyroid, DANY on CPAP, recently admitted with COPD exacerbation comes back with worsening dyspnea after reportedly taking prednisone 20 mg after discharge instead of 60 mg as advised. -Acute COPD exacerbation -Gm positive bacillus bacteremia, ?contaminant. -Atypical chest pain -Mild NAN 02/20 with hyponatremia -CAD s/p cath, no stent -HTN -HLD -DM, with steroid induced hyperglycemia -SLE on immunosuppressants -Seizure disorder -Hypothyroidisms -Morbid obesity s/p gastric banding Plan: improved, changed to prednisone 60 mg on 02/20. Standing nebs. Slow taper by 10 mg every 4-5 days. Discussed with patient, to continue meds as advised on dc. s/p 3 days of azithromycin. At home oxygen needs, continue to monitor. follow u RVP. Blood cultures noted, discussed with ID, likely contaminant. Plan for levaquin x 2 days. Patient continues to improve clinically. Follow up final blood cultures. Hold methotrexate for now (receives on tuesday) Renal function improved with gentle hydration overnight, monitor fornow. WBC stable, ?Steroid related, monitor. Levemir home dose 22 units, titrate as needed. ISS, diabetic diet. resume glipizide on d/c based on blood sugars. Continue home meds Chest symptoms more related to coughing and COPD. ACS ruled out. GI/DVTPPX dispo check ambulatory oxygen saturations, d/c in 24hours on oral antibiotics and prednisone pending final blood cultures. Plan discussed with patient in detail, all questions answered.
--- NOTE | 2017-02-21 17:01 | PN ---
Physical Exam: SUBJECTIVE: Patient seen and examined earlier in morning. No acute events overnight. no new complaints OBJECTIVE: Vital Signs Period Temp Pulse Resp BP Sys/Oconnell Pulse Ox Last 24 Hr 97.5 F-99.9 F 62-114 20-20 103-140/45-63 96-99 GENERAL: NAD, awake, alert, and fully oriented HEENT: NC/AT, sclera anicteric, No JVD noted, moist mucosa without any exudates or erythema in posterior oropharynx LUNGS: CTA bilaterally with no evidence of wheezing currently, prolonged expiratory phase, no crackles or rhonchi, no accessory muscle use. On 2LNC HEART: RRR, S1, S2 without murmur ABDOMEN: Soft, nontender, nondistended, normoactive bowel sounds, no guarding, no hepatomegaly EXTREMITIES: 2+ distal pulses, warm, well-perfused, no edema. PSYCH: Normal mood, normal affect. SKIN: Warm, dry, no rashes or lesions noted Laboratory Results - last 24 hr 02/20/17 02/20/17 02/21/17 17:40 20:56 05:43 WBC Corrected WBC (auto) RBC Hgb Hct MCV MCH MCHC RDW Plt Count MPV Neutrophils % Lymphocytes % Monocytes % Eosinophils % Basophils % Nucleated RBC % Platelet Estimate Platelet Comment Sodium Potassium Chloride Carbon Dioxide Anion Gap BUN Creatinine POC Glucometer 287 237 152 Random Glucose Calcium Magnesium 02/21/17 02/21/17 02/21/17 07:00 07:00 09:35 WBC Cancelled 12.1 H Corrected WBC (auto) Cancelled RBC Cancelled 4.46 Hgb Cancelled 12.9 Hct Cancelled 40.1 MCV Cancelled 89.9 MCH Cancelled 28.8 MCHC Cancelled 32.1 RDW Cancelled 16.5 H Plt Count Cancelled 330 MPV Cancelled 7.9 Neutrophils % Cancelled 59.0 Lymphocytes % Cancelled 33.5 Monocytes % Cancelled 6.6 Eosinophils % Cancelled 0.1 Basophils % Cancelled 0.8 Nucleated RBC % Cancelled Platelet Estimate Cancelled Platelet Comment Cancelled Sodium 138 Potassium 4.0 Chloride 103 Carbon Dioxide 25 Anion Gap 10 BUN 20 H Creatinine 1.1 H POC Glucometer Random Glucose 137 H D Calcium 9.2 Magnesium 2.2 02/21/17 02/21/17 11:38 16:23 WBC Corrected WBC (auto) RBC Hgb Hct MCV MCH MCHC RDW Plt Count MPV Neutrophils % Lymphocytes % Monocytes % Eosinophils % Basophils % Nucleated RBC % Platelet Estimate Platelet Comment Sodium Potassium Chloride Carbon Dioxide Anion Gap BUN Creatinine POC Glucometer 145 274 Random Glucose Calcium Magnesium Active Medications Generic Name Dose Route Start Last Admin Trade Name Freq PRN Reason Stop Dose Admin Acetaminophen 650 mg 02/17/17 13:29 02/17/17 13:57 Tylenol - PO 650 mg Q6H PRN Administration FEVER OR PAIN Atorvastatin Calcium 10 mg 02/16/17 22:00 02/20/17 22:02 Lipitor - PO 10 mg HS [facility] Administration Budesonide/Formoterol Fumarate 2 puff 02/21/17 22:00 Symbicort 160/4.5mcg - IH BID DONTA Carbamazepine 300 mg 02/16/17 10:45 02/21/17 11:23 Tegretol Xr - PO 300 mg BID DONTA Administration Docusate Sodium 100 mg 02/19/17 22:00 02/21/17 11:20 Colace - PO 100 mg BID DONTA Administration Folic Acid 1 mg 02/16/17 10:45 02/21/17 11:20 Folic Acid - PO 1 mg DAILY DONTA Administration Furosemide 40 mg 02/16/17 10:45 02/21/17 11:20 Lasix - PO 40 mg DAILY DONTA Administration Guaifenesin/Codeine Phosphate 10 ml 02/16/17 10:33 02/19/17 09:57 Robitussin Ac - PO 10 ml Q6H PRN Administration COUGH Heparin Sodium (Porcine) 5,000 unit 02/17/17 06:00 02/21/17 13:52 Heparin - SQ 5,000 unit TID [facility] Administration Hydroxychloroquine Sulfate 200 mg 02/16/17 10:45 02/21/17 11:22 Plaquenil - PO 200 mg BID [facility] Administration Insulin Aspart 1 vial 02/16/17 11:00 02/21/17 16:25 Novolog Vial Sliding Scale - SQ 6 units ACHS [facility] Administration Protocol Insulin Detemir 22 units 02/17/17 16:57 02/21/17 06:36 Levemir Vial SQ 22 units DAILY@0700 [facility] Administration Levofloxacin 750 mg 02/20/17 10:00 02/21/17 11:20 Levaquin - PO 750 mg DAILY DONTA Administration Levothyroxine Sodium 50 mcg 02/17/17 07:00 02/21/17 06:37 Synthroid - PO 50 mcg AM DONTA Administration Losartan Potassium 50 mg 02/16/17 10:45 02/21/17 11:20 Cozaar - PO 50 mg DAILY DONTA Administration Montelukast Sodium 10 mg 02/16/17 10:45 02/21/17 11:22 Singulair - PO 10 mg DAILY DONTA Administration Aodcw-3-Hvxe Ethyl Esters 3 gm 02/16/17 10:45 02/21/17 11:21 Lovaza - PO 3 gm DAILY DONTA Administration Pramipexole Dihydrochloride 0.5 mg 02/16/17 10:45 02/21/17 11:21 Mirapex - PO 0.5 mg BID DONTA Administration Prednisone 60 mg 02/20/17 10:00 02/21/17 11:20 Deltasone - PO 60 mg DAILY DONTA Administration Senna 2 tab 02/19/17 22:00 02/20/17 22:02 Senna - PO 2 tab HS DONTA Administration Sertraline HCl 100 mg 02/16/17 10:45 02/21/17 11:22 Zoloft - PO 100 mg DAILY DONTA Administration Tiotropium [place] 1 puff 02/16/17 10:45 02/21/17 11:22 Spiriva - IH 1 puff DAILY DONTA Administration Topiramate 100 mg 02/16/17 13:45 02/21/17 11:22 Topamax - PO 100 mg BID DONTA Administration ASSESSMENT/PLAN: 61yo F with history of COPD (2L NC baseline), DANY (CPAP), CAD (s/p catherization ), SLE, DM, HTN, HLD who was recently admitted for a COPD exacerbation seen again for worsening dyspnea after decreasing her prednisone dose to 20mg from 60mg s/p discharge. 1) Acute COPD exacerbation --Albuterol nebs QID --Prednisone 60mg qdaily continue for one more day then taper down --Spiriva to continue --Singulair to continue --Symbicort to continue --Zithromax day 4; continue for 3 days then stop --Titrate O2 >90% SpO2 --Robutussin PRN for cough 2) DM --BGM --ISS --Increase Levemir to 22U 3) CAD s/p cath x1, HTN --Continue Cozaar 50mg qDaily --Lipitor 10mg PO HS 4) SLE --Continue home medications --Methotrexate received Wednesdays --Monitor leukocytosis or fever spikes due to immunosuppressant therapy 5) Seizure disorder --Continue carbamazepine home dosing 6) Hypothyroidism --Continue home Synthroid 7) Atypical Chest pain --Most likely 2/2 to cough and increase work of breathing --Ruled out ACS --Has been improving as coughing is under control FEN: Fluids: None currently; tolerating PO Electrolyte abnormalities:None currently Nutrition: Diabetic diet PPX: DVT - Heparin SQ TID Dispo: d/c pending final microbiology report (most likely contaminate, but send- out waiting final report) Case discussed with Dr. Yesi Adams, DO - Internal Medicine PGY-1 Visit type - Emergency Visit Emergency Visit: No - New Patient This patient is new to me today: No - Critical Care Critical Care patient: No
[2017-02-21] MEDS: SENNOSIDES 8.6MG TABLET (FP) PO SCH (22:52)
[2017-02-21] MEDS: ATORVASTATIN CA 10 MG TABLET (FP) PO SCH (22:52)
[2017-02-21] MEDS: ACETAMINOPHEN 325 MG TABLET (FP) PO PRN (22:53)
[2017-02-21] MEDS: BUDESONIDE/FORMETEROL FUMARATE 160/4.5 mcg INHALER IH SCH (22:54)
[2017-02-22] MEDS: HEPARIN NA (PORCINE) 5,000 UNITS/ML 1ML VIAL SQ SCH ×3 (06:39→22:20)
[2017-02-22] MEDS: INSULIN SLIDING SCALE (NOVOLOG) 1 VIAL SQ SCH ×4 (06:40→22:26)
[2017-02-22] MEDS: INSULIN DETEMIR 100 UNITS/ML MDV SQ SCH (06:40)
[2017-02-22] MEDS: LEVOTHYROXINE NA 50 MCG TABLET (FP) PO SCH (06:40)
[2017-02-22 08:42] LABS: HEMATOCRIT 39.4 % (32.4-45.2); HEMOGLOBIN 12.4 GM/dL (10.7-15.3); MCH 28.4 pg (25.7-33.7); MCHC 31.6 g/dl (32.0-36.0); MEAN CELL VOLUME 89.9 fl (80-96); MEAN PLT VOLUME 7.9 fl (7.5-11.1); PLATELET COUNT 331 K/MM3 (134-434); RBC 4.38 M/mm3 (3.60-5.2); RDW 16.4 % (11.6-15.6); WHITE BLOOD COUNT 12.3 K/mm3 (4.0-10.0)
[2017-02-22 09:02] LABS: ANION GAP 8 (8-16); BLOOD UREA NITROGEN 24 mg/dL (7-18); CALCIUM 9.4 mg/dL (8.5-10.1); CHLORIDE 102 mmol/L (98-107); CO2 27 mmol/L (21-32); CREATININE 1.3 mg/dL (0.55-1.02); GLUCOSE,RANDOM 154 mg/dL (74-106); SODIUM 137 mmol/L (136-145)
[2017-02-22] MEDS ORDERED: PT OWN MED DRAWER 7, Y5N ONE (10:50)
[2017-02-22] MEDS: DOCUSATE SODIUM 100 MG CAPSULE (FP) PO SCH ×2 (10:52→22:20)
[2017-02-22] MEDS: LEVOFLOXACIN 250 MG TABLET (FP) PO SCH (10:53)
[2017-02-22] MEDS: SERTRALINE HCL 50 MG TABLET (FP) PO SCH (10:53)
[2017-02-22] MEDS: LOSARTAN POTASSIUM 50 MG TABLET (FP) PO SCH (10:53)
[2017-02-22] MEDS: predniSONE 20 MG TABLET (UD) PO SCH (10:53)
[2017-02-22] MEDS: OMEGA-3 ACID ETHYL ESTERS (FATTY-ACIDS) 1 GM CAPSULE (FP) PO SCH (10:54)
[2017-02-22] MEDS: MONTELUKAST NA 10 MG TABLET PO SCH (10:54)
[2017-02-22] MEDS: FUROSEMIDE 40 MG TABLET (FP) PO SCH (10:54)
[2017-02-22] MEDS: FOLIC ACID 1 MG TABLET (FP) PO SCH (10:54)
[2017-02-22] MEDS: HYDROXYCHLOROQUINE SO4 200 MG TABLET (FP) PO SCH ×2 (10:55→22:23)
[2017-02-22] MEDS: PRAMIPEXOLE DIHYDROCHLORIDE 0.5 MG TABLET PO SCH ×2 (10:55→22:21)
[2017-02-22] MEDS: TOPIRAMATE 100 MG TABLET PO SCH ×2 (10:56→22:22)
[2017-02-22] MEDS: TIOTROPIUM BROMIDE 18 MCG/INH (DEVICE W/ 5 CAPSULES) IH SCH (10:57)
[2017-02-22] MEDS: BUDESONIDE/FORMETEROL FUMARATE 160/4.5 mcg INHALER IH SCH ×2 (12:33→22:22)
--- NOTE | 2017-02-22 13:04 | PN ---
Progress Note, Physician History of Present Illness: pulmonary alert,still c/o sob - Current Medication List Current Medications: Active Medications Acetaminophen (Tylenol -) 650 mg PO Q6H PRN PRN Reason: FEVER OR PAIN Last Admin: 02/21/17 22:53 Dose: 650 mg Atorvastatin Calcium (Lipitor -) 10 mg PO HS [facility] Last Admin: 02/21/17 22:52 Dose: 10 mg Budesonide/Formoterol Fumarate (Symbicort 160/4.5mcg -) 2 puff IH BID [facility] Last Admin: 02/22/17 12:33 Dose: Not Given Carbamazepine (Tegretol Xr -) 300 mg PO BID [facility] Last Admin: 02/22/17 10:55 Dose: 300 mg Docusate Sodium (Colace -) 100 mg PO BID [facility] Last Admin: 02/22/17 10:52 Dose: 100 mg Folic Acid (Folic Acid -) 1 mg PO DAILY [facility] Last Admin: 02/22/17 10:54 Dose: 1 mg Furosemide (Lasix -) 40 mg PO DAILY [facility] Last Admin: 02/22/17 10:54 Dose: 40 mg Guaifenesin/Codeine Phosphate (Robitussin Ac -) 10 ml PO Q6H PRN PRN Reason: COUGH Last Admin: 02/19/17 09:57 Dose: 10 ml Heparin Sodium (Porcine) (Heparin -) 5,000 unit SQ TID [facility] Last Admin: 02/22/17 06:39 Dose: 5,000 unit Hydroxychloroquine Sulfate (Plaquenil -) 200 mg PO BID [facility] Last Admin: 02/22/17 10:55 Dose: 200 mg Insulin Aspart (Novolog Vial Sliding Scale -) 1 vial SQ ACHS [facility] PRN Reason: Protocol Last Admin: 02/22/17 12:04 Dose: Not Given Insulin Detemir (Levemir Vial) 22 units SQ DAILY@0700 [facility] Last Admin: 02/22/17 06:40 Dose: 22 units Levofloxacin (Levaquin -) 750 mg PO DAILY [facility] Last Admin: 02/22/17 10:53 Dose: 750 mg Levothyroxine Sodium (Synthroid -) 50 mcg PO AM [facility] Last Admin: 02/22/17 06:40 Dose: 50 mcg Losartan Potassium (Cozaar -) 50 mg PO DAILY [facility] Last Admin: 02/22/17 10:53 Dose: 50 mg Montelukast Sodium (Singulair -) 10 mg PO DAILY [facility] Last Admin: 02/22/17 10:54 Dose: 10 mg Ywwvh-2-Vxxp Ethyl Esters (Lovaza -) 3 gm PO DAILY [facility] Last Admin: 02/22/17 10:54 Dose: 3 gm Pramipexole Dihydrochloride (Mirapex -) 0.5 mg PO BID [facility] Last Admin: 02/22/17 10:55 Dose: 0.5 mg Prednisone (Deltasone -) 60 mg PO DAILY [facility] Last Admin: 02/22/17 10:53 Dose: 60 mg Senna (Senna -) 2 tab PO HS [facility] Last Admin: 02/21/17 22:52 Dose: 2 tab Sertraline HCl (Zoloft -) 100 mg PO DAILY [facility] Last Admin: 02/22/17 10:53 Dose: 100 mg Tiotropium [place] (Spiriva -) 1 puff IH DAILY [facility] Last Admin: 02/22/17 10:57 Dose: 1 puff Topiramate (Topamax -) 100 mg PO BID [facility] Last Admin: 02/22/17 10:56 Dose: 100 mg - Objective Vital Signs: Vital Signs Temperature 97.6 F 02/22/17 05:19 Pulse Rate 81 02/22/17 09:38 Respiratory Rate 20 02/22/17 09:00 Blood Pressure 128/75 02/22/17 09:00 O2 Sat by Pulse Oximetry (%) 98 02/22/17 09:38 Constitutional: Yes: Well Nourished, Calm Eyes: Yes: WNL HENT: Yes: WNL Neck: Yes: WNL Cardiovascular: Yes: Regular Rate and Rhythm, S1, S2 Respiratory: Yes: Wheezes (few wheezes) Gastrointestinal: Yes: Normal Bowel Sounds, Soft Extremities: Yes: WNL Edema: Yes Labs: CBC, BMP 02/22/17 08:20 02/22/17 08:20 INR, PTT INR 0.98 (0.82-1.09) 02/16/17 06:00 Assessment/Plan Problem List - Problems (1) SLE (systemic lupus erythematosus) Code(s): M32.9 - SYSTEMIC LUPUS ERYTHEMATOSUS, UNSPECIFIED (2) Acute exacerbation of chronic obstructive pulmonary disease (COPD) Code(s): J44.1 - CHRONIC OBSTRUCTIVE PULMONARY DISEASE W (ACUTE) EXACERBATION (3) Atypical chest pain Code(s): R07.89 - OTHER CHEST PAIN (4) COPD (chronic obstructive pulmonary disease) Code(s): J44.9 - CHRONIC OBSTRUCTIVE PULMONARY DISEASE, UNSPECIFIED Qualifiers: COPD type: unspecified COPD Qualified Code(s): J44.9 - Chronic obstructive pulmonary disease, unspecified (5) CHF (congestive heart failure) Code(s): I50.9 - HEART FAILURE, UNSPECIFIED (6) CKD (chronic kidney disease) stage 3, GFR 30-59 ml/min Code(s): N18.3 - CHRONIC KIDNEY DISEASE, STAGE 3 (MODERATE) Assessment/Plan ACUTE EXACERBATION COPD IMPROVING DYSPHONIA NEW ELEVATION OF LEFT HEMIDIAPHRAGM SLE RECENT BARIATRIC SURG (?CAUSE OF ELEVATED LEFT LUCILA-DIAPHRAGM) GRAM - BACTEREMIA PREDNISONE BRONCHODILATORS IMMUNOSUPPRESANTS FOR SLE NIPPV/O2 SUPPLEMENTATION ABX PER ID PFTS OUTPATIENT DR DAI
--- NOTE | 2017-02-22 14:36 | PN ---
Teaching Attending Note Name of Resident: Morgan Adams ATTENDING PHYSICIAN STATEMENT I saw and evaluated the patient. I reviewed the resident's note and discussed the case with the resident. I agree with the resident's findings and plan as documented. SUBJECTIVE:continues to have cough but no longer productive. denies Cp, SOB, fever, chills, N/V/C/D OBJECTIVE: Last Vital Signs Temp Pulse Resp BP Pulse Ox 97.6 F 81 20 128/75 98 02/22/17 05:19 02/22/17 09:38 02/22/17 09:00 02/22/17 09:00 02/22/17 09:38 General NAD CV S1 S2 RRR no murmur/rub/gallop Lungs mild wheezing no crackles ASSESSMENT AND PLAN: 61 yof with PMHx of COPD on 2L home oxygen, CAD s/p cath no stent, HTN, HLD, DM , seizure, SLE, hypothyroid, DANY on CPAP, recently admitted with COPD exacerbation comes back with worsening dyspnea after reportedly taking prednisone 20 mg after discharge instead of 60 mg as advised. 1. Acute COPD exacerbation- clinically improved. saturating 95% on 2L NC. will need slow prednisone taper. currently on 60mg and will decrease by 10mg every 4days. on levaquin day 6 out of 7. continue inhalers. ID and pulmonary on board. 2. +bacteremia- positive bacillus bacteremia, likely contaminant, cx now sent to [facility] to verify. will repeat cx here 3. Atypical chest pain- likely muscular. now resolved 4. Mild NAN- possible dehydration with steroid use. encourage po intake. 02/20 with hyponatremia 5. CAD s/p cath, no stent 6. HTN 7. HLD 8. DM, with steroid induced hyperglycemia- on levemir 22 units. 9. SLE on immunosuppressants- on plaquenil and mtx 10. Seizure disorder- no seizure like activity. on topamax 11. Hypothyroid- on Lt4 12. Morbid obesity s/p gastric banding 13. DVT ppx- hep sq 14. medically optimized for discharge however will need to verify bacteremia prior to discharging.
--- NOTE | 2017-02-22 17:19 | PN ---
Physical Exam: SUBJECTIVE: Patient seen and examined earlier in the morning. Pt has no new complaints today with no overnight events. OBJECTIVE: Vital Signs Period Temp Pulse Resp BP Sys/Oconnell Pulse Ox Last 24 Hr 97.6 F-98.4 F 81-91 18-22 121-139/67-75 98-99 GENERAL: NAD, awake, alert, and fully oriented HEENT: NC/AT, sclera anicteric, No JVD noted, moist mucosa without any exudates or erythema in posterior oropharynx LUNGS: CTA bilaterally with no evidence of wheezing currently, prolonged expiratory phase, no crackles or rhonchi, no accessory muscle use. On 2LNC HEART: RRR, S1, S2 without murmur ABDOMEN: Soft, nontender, nondistended, normoactive bowel sounds, no guarding, no hepatomegaly EXTREMITIES: 2+ distal pulses, warm, well-perfused, no edema. PSYCH: Normal mood, normal affect. SKIN: Warm, dry, no rashes or lesions noted Laboratory Results - last 24 hr 02/21/17 02/22/17 02/22/17 22:51 06:39 08:20 WBC 12.3 H RBC 4.38 Hgb 12.4 Hct 39.4 MCV 89.9 MCH 28.4 MCHC 31.6 L RDW 16.4 H Plt Count 331 MPV 7.9 Sodium Potassium Chloride Carbon Dioxide Anion Gap BUN Creatinine POC Glucometer 246 184 Random Glucose Calcium 02/22/17 02/22/17 02/22/17 08:20 12:04 16:57 WBC RBC Hgb Hct MCV MCH MCHC RDW Plt Count MPV Sodium 137 Potassium 4.0 Chloride 102 Carbon Dioxide 27 Anion Gap 8 BUN 24 H Creatinine 1.3 H POC Glucometer 143 365 Random Glucose 154 H Calcium 9.4 Active Medications Generic Name Dose Route Start Last Admin Trade Name Freq PRN Reason Stop Dose Admin Acetaminophen 650 mg 02/17/17 13:29 02/21/17 22:53 Tylenol - PO 650 mg Q6H PRN Administration FEVER OR PAIN Atorvastatin Calcium 10 mg 02/16/17 22:00 02/21/17 22:52 Lipitor - PO 10 mg HS DONTA Administration Budesonide/Formoterol Fumarate 2 puff 02/21/17 22:00 02/22/17 12:33 Symbicort 160/4.5mcg - IH Not Given BID DONTA Carbamazepine 300 mg 02/16/17 10:45 02/22/17 10:55 Tegretol Xr - PO 300 mg BID DONTA Administration Docusate Sodium 100 mg 02/19/17 22:00 02/22/17 10:52 Colace - PO 100 mg BID DONTA Administration Folic Acid 1 mg 02/16/17 10:45 02/22/17 10:54 Folic Acid - PO 1 mg DAILY DONTA Administration Furosemide 40 mg 02/16/17 10:45 02/22/17 10:54 Lasix - PO 40 mg DAILY DONTA Administration Guaifenesin/Codeine Phosphate 10 ml 02/16/17 10:33 02/19/17 09:57 Robitussin Ac - PO 10 ml Q6H PRN Administration COUGH Heparin Sodium (Porcine) 5,000 unit 02/17/17 06:00 02/22/17 14:45 Heparin - SQ 5,000 unit TID DONTA Administration Hydroxychloroquine Sulfate 200 mg 02/16/17 10:45 02/22/17 10:55 Plaquenil - PO 200 mg BID DONTA Administration Insulin Aspart 1 vial 02/16/17 11:00 02/22/17 17:00 Novolog Vial Sliding Scale - SQ 10 units ACHS DONTA Administration Protocol Insulin Detemir 22 units 02/17/17 16:57 02/22/17 06:40 Levemir Vial SQ 22 units DAILY@0700 DONTA Administration Levofloxacin 750 mg 02/20/17 10:00 02/22/17 10:53 Levaquin - PO 750 mg DAILY DONTA Administration Levothyroxine Sodium 50 mcg 02/17/17 07:00 02/22/17 06:40 Synthroid - PO 50 mcg AM DONTA Administration Losartan Potassium 50 mg 02/16/17 10:45 02/22/17 10:53 Cozaar - PO 50 mg DAILY DONTA Administration Montelukast Sodium 10 mg 02/16/17 10:45 02/22/17 10:54 Singulair - PO 10 mg DAILY DONTA Administration [id number] Ethyl Esters 3 gm 02/16/17 10:45 02/22/17 10:54 Lovaza - PO 3 gm DAILY DONTA Administration Pramipexole Dihydrochloride 0.5 mg 02/16/17 10:45 02/22/17 10:55 Mirapex - PO 0.5 mg BID DONTA Administration Prednisone 50 mg 02/23/17 10:00 Deltasone - PO DAILY DONTA Senna 2 tab 02/19/17 22:00 02/21/17 22:52 Senna - PO 2 tab HS DONTA Administration Sertraline HCl 100 mg 02/16/17 10:45 02/22/17 10:53 Zoloft - PO 100 mg DAILY DONTA Administration Tiotropium [place] 1 puff 02/16/17 10:45 02/22/17 10:57 Spiriva - IH 1 puff DAILY DONTA Administration Topiramate 100 mg 02/16/17 13:45 02/22/17 10:56 Topamax - PO 100 mg BID DONTA Administration ASSESSMENT/PLAN: 61yo F with history of COPD (2L NC baseline), DANY (CPAP), CAD (s/p catherization ), SLE, DM, HTN, HLD who was recently admitted for a COPD exacerbation seen again for worsening dyspnea after decreasing her prednisone dose to 20mg from 60mg s/p discharge. 1) Acute COPD exacerbation --Albuterol nebs QID --Prednisone 500mg qdaily starting tomorrow AM --Spiriva to continue --Singulair to continue --Symbicort to continue --Zithromax day 5; continue for 2 days then stop --Pt creatinine clearance 67; continue at current dose --Titrate O2 >90% SpO2 --Robutussin PRN for cough --Due to send-out will repeat cultures to make sure there is no microbe; if negative for 24hrs will discharge and f/u labs 2) DM --BGM --ISS --Increase Levemir to 22U 3) CAD s/p cath x1, HTN --Continue Cozaar 50mg qDaily --Lipitor 10mg PO HS 4) SLE --Continue home medications --Methotrexate received Wednesdays --Monitor leukocytosis or fever spikes due to immunosuppressant therapy 5) Seizure disorder --Continue carbamazepine home dosing 6) Hypothyroidism --Continue home Synthroid 7) Atypical Chest pain --Most likely 2/2 to cough and increase work of breathing --Ruled out ACS --Has been improving as coughing is under control FEN: Fluids: None currently; tolerating PO Electrolyte abnormalities:None currently Nutrition: Diabetic diet PPX: DVT - Heparin SQ TID Dispo: d/c pending repeat cultures Case discussed with Dr. Hi Adams, DO - Internal Medicine PGY-1 Visit type - Emergency Visit Emergency Visit: No - New Patient This patient is new to me today: No - Critical Care Critical Care patient: No
[2017-02-22] MEDS: ATORVASTATIN CA 10 MG TABLET (FP) PO SCH (22:21)
[2017-02-22] MEDS: SENNOSIDES 8.6MG TABLET (FP) PO SCH (22:21)
[2017-02-23] MEDS: INSULIN DETEMIR 100 UNITS/ML MDV SQ SCH (06:29)
[2017-02-23] MEDS: INSULIN SLIDING SCALE (NOVOLOG) 1 VIAL SQ SCH ×3 (06:30→17:16)
[2017-02-23] MEDS: LEVOTHYROXINE NA 50 MCG TABLET (FP) PO SCH ×2 (06:30→11:02)
[2017-02-23] MEDS: HEPARIN NA (PORCINE) 5,000 UNITS/ML 1ML VIAL SQ SCH ×2 (06:30→14:34)
[2017-02-23] MEDS ORDERED: INSULIN (NOVOLOG) ASPART 100 UNITS/ML 10ML VIAL ONE (07:35)
[2017-02-23] MEDS: METHOTREXATE 2.5 MG TABLET PO SCH ×2 (09:00→15:28)
[2017-02-23] MEDS ORDERED: predniSONE 20 MG TABLET (UD) PO SCH (10:00)
[2017-02-23] MEDS ORDERED: PT OWN MED DRAWER 7, Y5N ONE ×3 (10:59→11:31)
[2017-02-23] MEDS: LEVOFLOXACIN 250 MG TABLET (FP) PO SCH (11:00)
[2017-02-23] MEDS: MONTELUKAST NA 10 MG TABLET PO SCH (11:02)
[2017-02-23] MEDS: DOCUSATE SODIUM 100 MG CAPSULE (FP) PO SCH (11:02)
[2017-02-23] MEDS: FOLIC ACID 1 MG TABLET (FP) PO SCH (11:02)
[2017-02-23] MEDS: FUROSEMIDE 40 MG TABLET (FP) PO SCH (11:02)
[2017-02-23] MEDS: SERTRALINE HCL 50 MG TABLET (FP) PO SCH (11:02)
[2017-02-23] MEDS: LOSARTAN POTASSIUM 50 MG TABLET (FP) PO SCH (11:02)
[2017-02-23] MEDS: HYDROXYCHLOROQUINE SO4 200 MG TABLET (FP) PO SCH (11:03)
[2017-02-23] MEDS: PRAMIPEXOLE DIHYDROCHLORIDE 0.5 MG TABLET PO SCH (11:03)
[2017-02-23] MEDS: TIOTROPIUM BROMIDE 18 MCG/INH (DEVICE W/ 5 CAPSULES) IH SCH (11:05)
[2017-02-23] MEDS: OMEGA-3 ACID ETHYL ESTERS (FATTY-ACIDS) 1 GM CAPSULE (FP) PO SCH (11:05)
[2017-02-23] MEDS: TOPIRAMATE 100 MG TABLET PO SCH (11:05)
[2017-02-23] MEDS: BUDESONIDE/FORMETEROL FUMARATE 160/4.5 mcg INHALER IH SCH (11:06)
--- NOTE | 2017-02-23 12:52 | PN ---
Progress Note, Physician History of Present Illness: pulmonary alert,feeling better,-sob - Current Medication List Current Medications: Active Medications Acetaminophen (Tylenol -) 650 mg PO Q6H PRN PRN Reason: FEVER OR PAIN Last Admin: 02/21/17 22:53 Dose: 650 mg Atorvastatin Calcium (Lipitor -) 10 mg PO HS [facility] Last Admin: 02/22/17 22:21 Dose: 10 mg Budesonide/Formoterol Fumarate (Symbicort 160/4.5mcg -) 2 puff IH BID [facility] Last Admin: 02/23/17 11:06 Dose: 2 puff Carbamazepine (Tegretol Xr -) 300 mg PO BID [facility] Last Admin: 02/23/17 11:12 Dose: 300 mg Docusate Sodium (Colace -) 100 mg PO BID [facility] Last Admin: 02/23/17 11:02 Dose: 100 mg Folic Acid (Folic Acid -) 1 mg PO DAILY [facility] Last Admin: 02/23/17 11:02 Dose: 1 mg Furosemide (Lasix -) 40 mg PO DAILY [facility] Last Admin: 02/23/17 11:02 Dose: 40 mg Guaifenesin/Codeine Phosphate (Robitussin Ac -) 10 ml PO Q6H PRN PRN Reason: COUGH Last Admin: 02/19/17 09:57 Dose: 10 ml Heparin Sodium (Porcine) (Heparin -) 5,000 unit SQ TID [facility] Last Admin: 02/23/17 06:30 Dose: 5,000 unit Hydroxychloroquine Sulfate (Plaquenil -) 200 mg PO BID [facility] Last Admin: 02/23/17 11:03 Dose: 200 mg Insulin Aspart (Novolog Vial Sliding Scale -) 1 vial SQ ACHS [facility] PRN Reason: Protocol Last Admin: 02/23/17 12:18 Dose: 7 units Insulin Detemir (Levemir Vial) 22 units SQ DAILY@0700 [facility] Last Admin: 02/23/17 06:29 Dose: 22 units Levofloxacin (Levaquin -) 750 mg PO DAILY [facility] Last Admin: 02/23/17 11:00 Dose: 750 mg Levothyroxine Sodium (Synthroid -) 50 mcg PO AM [facility] Last Admin: 02/23/17 11:02 Dose: 50 mcg Losartan Potassium (Cozaar -) 50 mg PO DAILY [facility] Last Admin: 02/23/17 11:02 Dose: 50 mg Methotrexate (Mexate -) 12.5 mg PO We@1000 [facility] Last Admin: 02/23/17 09:00 Dose: Not Given Montelukast Sodium (Singulair -) 10 mg PO DAILY [facility] Last Admin: 02/23/17 11:02 Dose: 10 mg [id number] Ethyl Esters (Lovaza -) 3 gm PO DAILY [facility] Last Admin: 02/23/17 11:05 Dose: 3 gm Pramipexole Dihydrochloride (Mirapex -) 0.5 mg PO BID [facility] Last Admin: 02/23/17 11:03 Dose: 0.5 mg Prednisone (Deltasone -) 50 mg PO DAILY [facility] Last Admin: 02/23/17 11:00 Dose: 50 mg Senna (Senna -) 2 tab PO HS [facility] Last Admin: 02/22/17 22:21 Dose: 2 tab Sertraline HCl (Zoloft -) 100 mg PO DAILY [facility] Last Admin: 02/23/17 11:02 Dose: 100 mg Tiotropium [place] (Spiriva -) 1 puff IH DAILY [facility] Last Admin: 02/23/17 11:05 Dose: 1 puff Topiramate (Topamax -) 100 mg PO BID [facility] Last Admin: 02/23/17 11:05 Dose: 100 mg - Objective Vital Signs: Vital Signs Temperature 98.7 F 02/23/17 10:55 Pulse Rate 77 02/23/17 10:55 Respiratory Rate 20 02/23/17 10:55 Blood Pressure 117/63 02/23/17 10:55 O2 Sat by Pulse Oximetry (%) 98 02/22/17 21:00 Constitutional: Yes: Well Nourished, Calm Eyes: Yes: WNL HENT: Yes: WNL Neck: Yes: WNL Cardiovascular: Yes: Regular Rate and Rhythm, S1, S2 Respiratory: Yes: CTA Bilaterally Gastrointestinal: Yes: Normal Bowel Sounds, Soft Extremities: Yes: WNL Edema: No Labs: Assessment/Plan Problem List - Problems (1) SLE (systemic lupus erythematosus) Code(s): M32.9 - SYSTEMIC LUPUS ERYTHEMATOSUS, UNSPECIFIED (2) Acute exacerbation of chronic obstructive pulmonary disease (COPD) Code(s): J44.1 - CHRONIC OBSTRUCTIVE PULMONARY DISEASE W (ACUTE) EXACERBATION (3) Atypical chest pain Code(s): R07.89 - OTHER CHEST PAIN (4) COPD (chronic obstructive pulmonary disease) Code(s): J44.9 - CHRONIC OBSTRUCTIVE PULMONARY DISEASE, UNSPECIFIED Qualifiers: COPD type: unspecified COPD Qualified Code(s): J44.9 - Chronic obstructive pulmonary disease, unspecified (5) CHF (congestive heart failure) Code(s): I50.9 - HEART FAILURE, UNSPECIFIED (6) CKD (chronic kidney disease) stage 3, GFR 30-59 ml/min Code(s): N18.3 - CHRONIC KIDNEY DISEASE, STAGE 3 (MODERATE) Assessment/Plan ACUTE EXACERBATION COPD IMPROVING DYSPHONIA NEW ELEVATION OF LEFT HEMIDIAPHRAGM SLE RECENT BARIATRIC SURG (?CAUSE OF ELEVATED LEFT LUCILA-DIAPHRAGM) PREDNISONE taper BRONCHODILATORS IMMUNOSUPPRESANTS FOR SLE NIPPV/O2 SUPPLEMENTATION ABX PFTS OUTPATIENT DR DAI
--- NOTE | 2017-02-23 13:31 | PN ---
Teaching Attending Note Name of Resident: Morgan Adams ATTENDING PHYSICIAN STATEMENT I saw and evaluated the patient. I reviewed the resident's note and discussed the case with the resident. I agree with the resident's findings and plan as documented. SUBJECTIVE:asymptomatic. states breathing is improved. denies Cp, SOB, fever, chills, N/V/C/D OBJECTIVE: Last Vital Signs Temp Pulse Resp BP Pulse Ox 98.7 F 77 20 117/63 99 02/23/17 10:55 02/23/17 10:55 02/23/17 10:55 02/23/17 10:55 02/23/17 09:00 General NAD CV S1 S2 RRR no murmur/rub/gallop Lungs CTA B/L no wheezing or crackles ASSESSMENT AND PLAN: 61 yof with PMHx of COPD on 2L home oxygen, CAD s/p cath no stent, HTN, HLD, DM , seizure, SLE, hypothyroid, DANY on CPAP, recently admitted with COPD exacerbation comes back with worsening dyspnea after reportedly taking prednisone 20 mg after discharge instead of 60 mg as advised. 1. Acute COPD exacerbation- clinically improved. saturating 95% on 2L NC. will need slow prednisone taper. will complete 7 day course of levaquin today. continue inhalers. ID and pulmonary on board. 2. +bacteremia- positive bacillus bacteremia, likely contaminant, cx now sent to [facility] to verify.no anthracis reported. repeat sent. no further workup required 3. Atypical chest pain- likely muscular. now resolved 4. Mild NAN- possible dehydration with steroid use. encourage po intake. 5. CAD s/p cath, no stent 6. HTN 7. HLD 8. DM, with steroid induced hyperglycemia-uncontrolled. low readings in the AM and afternoon. will increase sliding coverage. on levemir 22 units. instructed importance of close monitoring as titrated off steroid. instructed to make log of sugars and insulin administered. bring this to next PMD appt for further adjustment of insulin 9. SLE on immunosuppressants- on plaquenil and mtx 10. Seizure disorder- no seizure like activity. on topamax 11. Hypothyroid- on Lt4 12. Morbid obesity s/p gastric banding 13. DVT ppx- hep sq 14. d/c home
--- NOTE | 2017-02-23 16:26 | DS ---
Physical Exam: SUBJECTIVE: Patient seen and examined OBJECTIVE: Vital Signs Period Temp Pulse Resp BP Sys/Oconnell Pulse Ox Last 24 Hr 97.4 F-98.7 F 62-103 20-22 111-117/49-76 98-99 PHYSICAL EXAM GENERAL: The patient is awake, alert, and fully oriented, in no acute distress. HEAD: Normal with no signs of trauma. EYES: PERRL, extraocular movements intact, sclera anicteric, conjunctiva clear. ENT: Ears normal, nares patent, oropharynx clear without exudates, moist mucous membranes. NECK: Trachea midline, full range of motion, supple. LUNGS: Breath sounds equal, clear to auscultation bilaterally, no wheezes, no crackles, no accessory muscle use. HEART: Regular rate and rhythm, S1, S2 without murmur, rub or gallop. ABDOMEN: Soft, nontender, nondistended, normoactive bowel sounds, no guarding, no rebound, no hepatosplenomegaly, no masses. EXTREMITIES: 2+ pulses, warm, well-perfused, no edema. NEUROLOGICAL: Cranial nerves II through XII grossly intact. Normal speech, gait not observed. PSYCH: Normal mood, normal affect. SKIN: Warm, dry, normal turgor, no rashes or lesions noted. LABS Laboratory Results - last 24 hr 02/22/17 02/22/17 02/23/17 16:57 21:04 05:51 POC Glucometer 365 315 130 02/23/17 11:49 POC Glucometer 265 HOSPITAL COURSE: Date of Admission:02/17/17 Date of Discharge: 02/23/17 Discharge Summary Reason For Visit: COPD W ACUTE EXACERBATION Current Active Problems Acute exacerbation of chronic obstructive pulmonary disease (COPD) (Acute) SLE (systemic lupus erythematosus) (Chronic) Condition: Good - Instructions Diet, Activity, Other Instructions: You were hospitalized for your asthma/COPD Please be sure to finish your prednisone taper as instructed If you start to develop more wheezing and become increasingly short of breath please return to the ER for further evaluation or call your doctor PLease check your sugars closely over the next few days as your steroids are tapered. Document what your readings are and how much insulin you inject yourself with. bring this with you to your next doctor appointment. MEDICATION CHANGES: You will be given a new tapering course of steroids 02/24/17 - 40mg ONCE (4 tablets in the morning) 02/25/17 - 40 mg ONCE (4 tablets in the morning) 02/26/17- 30mg once (3 tabs in the morning) 02/27/17- 30mg once (3 tabs in the morning) 02/28/17 - 20mg ONCE (2 tablets in the morning) 03/01/17 - 20mg ONCE (2 tablets in the morning 03/02/17 - 10mg ONCE (1 tablet in the morning) 03/03/17 - 10mg ONCE (1 tablet in the morning) 03/04/17 - STOP the steroids You completed your whole antibiotic course in the hospital and do not need any more antibiotics Insulin sliding scale blood glucose sugar # units of insulin <150 0 151-200 3 201-250 5 251-300 7 301-350 9 351-400 11 401-450 13 FOLLOW-UPs Please follow-up with Dr. Rojas on your normally scheduled appointments for you gastric banding Please follow-up with primary doctor, Dr. Heard, within a week Referrals: Goran Hernandez MD [Primary Care Provider] - Disposition: HOME - Home Medications Comprehensive Discharge Medication List: Ambulatory Orders Atorvastatin Ca [Lipitor] 10 mg PO HS 10/20/15 Biotin [Hard Nails] 5,000 mcg PO DAILY 10/20/15 Carbamazepine Xr [Tegretol XR -] 300 mg PO BID 10/20/15 Folic Acid 1 mg PO DAILY 10/20/15 Levothyroxine [Synthroid -] 50 mcg PO UTDICT 10/20/15 Methotrexate [Mexate -] 12.5 mg PO WEEKLY 10/20/15 Montelukast Na [Singulair -] 10 mg PO DAILY 10/20/15 Wallace-3 Fatty Acids [Wallace-3] 3 tab PO DAILY 10/20/15 Sertraline HCl [Zoloft -] 100 mg PO DAILY 10/20/15 Topiramate [Trokendi Xr] 100 mg PO BID 10/20/15 Umeclidinium [place] [Incruse Ellipta] 62.5 mcg IH DAILY 10/20/15 Glipizide 10 mg PO BID 08/13/16 Hydroxychloroquine Sulfate [Plaquenil] 200 mg PO BID 08/13/16 Insulin Glargine,Hum.rec.anlog [Lantus (10mL VIAL) -] 22 units SQ DAILY Albuterol Sulfate [Proair Respiclick] 90 mcg IH PRN PRN 11/19/16 Pramipexole Dihydrochloride [Mirapex -] 0.5 mg PO BID 11/19/16 Furosemide [Lasix -] 1 tab PO DAILY 02/12/17 Losartan Potassium 1 tab PO DAILY 02/12/17 Budesonide/Formeterol Fumarate [SYMBICORT 80/4.5mcg -] 2 puff IH BID #1 inhaler 02/13/17 Guaifenesin AC [Robitussin AC -] 10 ml PO Q6H PRN #100 ml MDD 60 02/13/17 Tiotropium [place] [Spiriva] 1 puff IH DAILY #1 inh 02/13/17 Insulin Sliding Scale [Novolog Vial Sliding Scale -] See Protocol SQ ACHS #1 vial 02/23/17 Prednisone See Taper PO DAILY #20 tablet 02/23/17
--- NOTE | 2017-02-23 19:22 | PN ---
Progress Note (short form) - Note Progress Note: No acute events No pain Shortness of breath improved Vital Signs Period Temp Pulse Resp BP Sys/Oconnell Pulse Ox Last 24 Hr 97.4 F-98.7 F 62-103 20-22 111-117/49-76 98-99 Abd soft, NT CBC, BMP 02/22/17 08:20 02/22/17 08:20 No surgical intervention Will follow up in office for band adjustments Problem List - Problems (1) Acute exacerbation of chronic obstructive pulmonary disease (COPD) Code(s): J44.1 - CHRONIC OBSTRUCTIVE PULMONARY DISEASE W (ACUTE) EXACERBATION
[2017-02-23 20:24] VITALS: BP 128/55; PULSE 85; TEMP 97.9
== END 2017-02-23 20:22 | disposition home or self-care (01) | DRG 191 ==
LOC: JER 04:58 → JERBED 11:00 → J5S 17:49 → OBSVTOIN 02-17 13:21
PROVIDERS: ADMIT Internal Medicine; ATTEND Internal Medicine
PROC: 5A09557 Assistance with Respiratory Ventilation, Greater than 96 Consecutive Hours, Continuous Positive Airway Pressure (ICD-10-PCS; principal; 2017-02-16)
DX: J44.1 Chronic obstructive pulmonary disease with (acute) exacerbation (principal); Z68.44 Body mass index [BMI] 60.0-69.9, adult; N17.9 Acute kidney failure, unspecified; I13.0 Hypertensive heart and chronic kidney disease with heart failure and stage 1 through stage 4 chronic kidney disease, or unspecified chronic kidney disease; R07.89 Other chest pain; J20.9 Acute bronchitis, unspecified; I25.10 Atherosclerotic heart disease of native coronary artery without angina pectoris; E78.5 Hyperlipidemia, unspecified; E03.9 Hypothyroidism, unspecified; M32.9 Systemic lupus erythematosus, unspecified; G47.33 Obstructive sleep apnea (adult) (pediatric); G43.909 Migraine, unspecified, not intractable, without status migrainosus; F32.9 Major depressive disorder, single episode, unspecified; K21.9 Gastro-esophageal reflux disease without esophagitis; E66.01 Morbid (severe) obesity due to excess calories; E86.0 Dehydration; G40.909 Epilepsy, unspecified, not intractable, without status epilepticus; N18.3 Chronic kidney disease, stage 3 (moderate); E11.22 Type 2 diabetes mellitus with diabetic chronic kidney disease; E11.65 Type 2 diabetes mellitus with hyperglycemia; I50.9 Heart failure, unspecified
CPT/HCPCS: 36415; 71045-TC; 71250-TC; 80048; 80053; 81003; 82550; 82962; 83036; 83735; 84484; 85025; 85027; 85379; 85610; 87040; 87086; 87633; 87804; 93005; 93010; 94640; 94660; 94761; 99285-25; G0378; J1644; J8610

== ENCOUNTER 2017-02-28 09:30 | Emergency (ER) | payer OTHER, MEDICARE ==
[2017-02-28 09:42] VITALS: TEMP 98.9; BMI 44.0
--- NOTE | 2017-02-28 10:21 | PDOC ---
History of Present Illness - General History Source: Patient Exam Limitations: No Limitations - History of Present Illness Initial Comments: CHIEF COMPLAINT: 62-year-old afebrile female with significant past medical history of COPD (on 2 L of oxygen at home), CHF, IDDM, hypertension, hyperlipidemia, and hypothyroidism who presents to the ED s/p discharge from 6- day admission for COPD exacerbation on 02/23/17 for complaint of recurrent dyspnea and chest tightness since 5am this morning. HISTORY OF PRESENT ILLNESS: The patient also admits to wheezing. She reports orthopnea as well but states that is baseline for her. The patient states she has been compliant with her medications. She reports a dry cough. She denies f/c , JI, neck pain, productive cough, abd pain, n/v/d, back pain, hematuria, dysuria. Social hx: The patient is a former smoker. Surgical hx: lapband (11/2016), Cholecystectomy, orthopedic right hip replacement, bilaterally knee arthroscopy, bilateral bunionectomy. PCP: Dr. Hernandez Digital Associate: Dr. Hyde Vital signs on arrival are notable for O2 sat of 99% on 2L O2 via NC. REVIEW OF SYSTEMS: GENERAL/CONSTITUTIONAL: No fever/chills. No weakness. No weight change. HEAD, EYES, EARS, NOSE AND THROAT: No change in vision. No ear pain or discharge. No sore throat. CARDIOVASCULAR: +SOB and chest tightness.. RESPIRATORY: +dry cough and wheezing. No hemoptysis. GASTROINTESTINAL: No abd pain, nausea, vomiting, diarrhea. GENITOURINARY: No dysuria, frequency, or change in urination. MUSCULOSKELETAL: No joint or muscle swelling or pain. No neck or back pain. SKIN: No rash or easy bruising. NEUROLOGIC: No headache, vertigo, loss of consciousness, or loss of sensation. PHYSICAL EXAM: GENERAL: The patient is awake, alert, and fully oriented, in mild distress with conversational dyspnea on O2. HEAD: Normal with no signs of trauma. ENT: Pupils equal, round and reactive to light, extraocular movements intact, sclera anicteric, conjunctiva clear. Neck supple. LUNGS: Diminished breath sounds in left posterior griggs. No wheezing, rhonchi , rales or crackles. Normal excursion. No respiratory distress or use of accessory muscles. CV: RRR, S1/S2, no MRG. Cap refill < 2 sec. ABDOMEN: Soft, non-distended, non-tender even to deep palpation, no hepatomegaly or splenomegaly, no masses. EXTREMITIES: Normal range of motion, no edema. NEUROLOGICAL: Normal speech, normal gait. CN II-XII grossly intact. PSYCH: Normal mood, normal affect. SKIN: Warm, dry, normal turgor, no rashes or lesions noted. <Jessica Razo - Last Filed: 02/28/17 15:20> <Ceferino Ng - Last Filed: 03/01/17 08:08> - General Chief Complaint: Shortness of Breath Stated Complaint: DIFFICULTY BREATHING Time Seen by Provider: 02/28/17 10:14 Past History - Past Medical History Anemia: No Asthma: Yes Cancer: No Cardiac Disorders: Yes (CAD) CVA: No COPD: Yes (O2 2L CONTINUOUSLY) CHF: No DVT: No Dementia: No Diabetes: Yes GI Disorders: Yes (REFLUX) Disorders: No HTN: Yes Hypercholesterolemia: Yes Liver Disease: No Seizures: Yes (NO RECENT [id number]) Thyroid Disease: Yes (HYPO) - Surgical History Abdominal Surgery: No Appendectomy: No Cardiac Surgery: No Cholecystectomy: Yes GI Surgery: Yes (LAP sx 11/23/16) Lung Surgery: No Neurologic Surgery: No Orthopedic Surgery: Yes (BILAT HIP REPLACEMENT/BILAT KNEE SX) - Immunization History Immunization Up to Date: Yes - Suicide/Smoking/Psychosocial Hx Smoking Status: Yes Smoking History: Unknown if ever smoked Have you smoked in the past 12 months: No Number of Cigarettes Smoked Daily: 0 If you are a former smoker, when did you quit?: 15YRS AGO Information on smoking cessation initiated: No Hx Alcohol Use: No Drug/Substance Use Hx: No Substance Use Type: None Hx Substance Use Treatment: No <Jessica Razo - Last Filed: 02/28/17 15:20> <Ceferino Ng - Last Filed: 03/01/17 08:08> - Past Medical History Allergies/Adverse Reactions: Allergies Allergy/AdvReac Type Severity Reaction Status Date / Time gabapentin [From Neurontin] Allergy PALPITATIONS, Verified 02/28/17 09:37 PASSES OUT Penicillins Allergy TONGUE Verified 02/28/17 09:37 Swelling phenytoin sodium Allergy diarrhea/vo Verified 02/28/17 09:37 [From Dilantin] miting phenytoin sodium extended Allergy Verified 02/28/17 09:37 [From Dilantin] theophylline [Theophylline] Allergy diarrhea,SE Verified 02/28/17 09:37 IZURES Home Medications: Ambulatory Orders Atorvastatin Ca [Lipitor] 10 mg PO HS 10/20/15 Biotin [Hard Nails] 5,000 mcg PO DAILY 10/20/15 Carbamazepine Xr [Tegretol XR -] 300 mg PO BID 10/20/15 Folic Acid 1 mg PO DAILY 10/20/15 Levothyroxine [Synthroid -] 50 mcg PO UTDICT 10/20/15 Methotrexate [Mexate -] 12.5 mg PO WE 10/20/15 Montelukast Na [Singulair -] 10 mg PO DAILY 10/20/15 [place]-3 Fatty Acids [[place]-3] 3 tab PO DAILY 10/20/15 Sertraline HCl [Zoloft -] 100 mg PO DAILY 10/20/15 Topiramate [Trokendi Xr] 100 mg PO BID 10/20/15 Umeclidinium [place] [Incruse Ellipta] 62.5 mcg IH DAILY 10/20/15 Glipizide 10 mg PO BID 08/13/16 Hydroxychloroquine Sulfate [Plaquenil] 200 mg PO BID 08/13/16 Insulin Glargine,Hum.rec.anlog [Lantus (10mL VIAL) -] 22 units SQ DAILY Albuterol Sulfate [Proair Respiclick] 90 mcg IH PRN PRN 11/19/16 Pramipexole Dihydrochloride [Mirapex -] 0.5 mg PO BID 11/19/16 Furosemide [Lasix -] 40 mg PO DAILY 02/12/17 Losartan Potassium 50 mg PO DAILY 02/12/17 Guaifenesin AC [Robitussin AC -] 10 ml PO Q6H PRN #100 ml MDD 60 02/13/17 Tiotropium [place] [Spiriva] 1 puff IH DAILY #1 inh 02/13/17 Insulin Sliding Scale [Novolog Vial Sliding Scale -] See Protocol SQ ACHS #1 vial 02/23/17 Prednisone See Taper PO DAILY #20 tablet 02/23/17 Albuterol 0.083% Nebulizer Myriam [Ventolin 0.083% Nebulizer Soln -] 1 neb NEB Q4H #100 vial 02/28/17 Budesonide/Formeterol Fumarate [SYMBICORT 160/4.5mcg -] 2 inh PO BID 02/28/17 *Physical Exam - Vital Signs Last Vital Signs Temp Pulse Resp BP Pulse Ox 98.9 F 89 18 143/85 100 02/28/17 09:37 02/28/17 09:37 02/28/17 09:37 02/28/17 09:37 02/28/17 10:10 <Jessica Razo - Last Filed: 02/28/17 15:20> - Vital Signs Last Vital Signs Temp Pulse Resp BP Pulse Ox 98.9 F 89 18 143/85 100 02/28/17 09:37 02/28/17 09:37 02/28/17 09:37 02/28/17 09:37 02/28/17 10:10 <Ceferino Ng - Last Filed: 03/01/17 08:08> Heart Score/ECG Review - ECG Impressions Comment:: 02/28/17 13:29 Twelve-lead EKG was performed and reviewed by me. There is normal sinus rhythm with a normal rate. Rate of [address] changes suggestive of acute ischemia <Ceferino Ng - Last Filed: 03/01/17 08:08> ED Treatment Course - LABORATORY CBC & Chemistry Diagram: 02/28/17 11:15 02/28/17 12:41 <Jessica Razo - Last Filed: 02/28/17 15:20> - LABORATORY CBC & Chemistry Diagram: 02/28/17 11:15 02/28/17 12:41 - ADDITIONAL ORDERS Additional order review: Laboratory Results 02/28/17 02/28/17 02/28/17 12:41 12:20 11:15 Sodium 138 Cancelled Potassium 4.2 Cancelled Chloride 100 Cancelled Carbon Dioxide 28 Cancelled Anion Gap 10 Cancelled BUN 16 Cancelled Creatinine 1.1 H Cancelled Creat Clearance w eGFR 50.50 Cancelled Random Glucose 266 H Cancelled Calcium 8.6 Cancelled Total Bilirubin 0.3 D Cancelled AST 16 Cancelled ALT 31 Cancelled Alkaline Phosphatase 111 Cancelled Total Protein 7.2 Cancelled Albumin 3.5 Cancelled Urine Color Yellow Urine Appearance Slcloudy Urine pH 5.0 Ur Specific [place] 1.012 Urine Protein Negative Urine Glucose (UA) Negative Urine Ketones Negative Urine Blood Negative Urine Nitrite Negative Urine Bilirubin Negative Urine Urobilinogen Negative Ur Leukocyte Esterase Negative 02/28/17 11:15 RBC 4.30 MCV 89.6 MCHC 32.3 RDW 16.8 H MPV 8.0 Neutrophils % 67.9 Lymphocytes % 29.5 Monocytes % 2.3 L Eosinophils % 0.1 Basophils % 0.2 - Medications Given in the ED: ED Medications Discontinued Medications Generic Name Dose Route Start Last Admin Trade Name Chuckyq PRN Reason Stop Dose Admin Albuterol/Ipratropium 1 amp 02/28/17 10:30 02/28/17 10:46 Duoneb - NEB 02/28/17 10:46 1 amp Q15M DONTA Administration Prednisone 60 mg 02/28/17 10:24 02/28/17 10:46 Deltasone - PO 02/28/17 10:25 40 mg ONCE ONE Administration <Ceferino Ng - Last Filed: 03/01/17 08:08> Medical Decision Making - Medical Decision Making A/P: 62 y/o female here for her 3rd time in 2 weeks (after 2 day admission and subsequent 6 day admission) c/o continued SOB and chest tightness. Plan is as follows: 1. Labs 2. CXR 3. UA 4. O2 via NC 5. Prednisone PO 6. Duoneb 7. EKG CXR IMPRESSION: No evidence of active pulmonary disease. Labs unremarkable After 2 Duonebs the patient admits she feels much better. Lungs remain CTA without wheezing. She informs me that she has a nebulizer at home but ran out of the albuterol. Discussed the case with Dr. Ng and both feel we can discharge the patient to home with rx for albuterol for nebulizer. Instructed the patient to f/u with Dr. Hernandez this week and return to the ER with any worsening or concerning symptoms. The patient verbalizes understanding of all instructions, has no further questions and is awaiting discharge. <Jessica Razo - Last Filed: 02/28/17 15:20> - Medical Decision Making 03/01/17 08:08 The patient was seen and evaluated in conjunction with JAGDISH Razo under my direct supervision, ancillary studies were reviewed. I agree with the plan as outlined by JAGDISH Razo . <Ceferino Ng - Last Filed: 03/01/17 08:08> *DC/Admit/Observation/Transfer <Jessica Razo - Last Filed: 02/28/17 15:20> <Ceferino Ng - Last Filed: 03/01/17 08:08> Diagnosis at time of Disposition: Acute exacerbation of chronic obstructive pulmonary disease (COPD) - Discharge Dispostion Disposition: HOME Condition at time of disposition: Improved - Prescriptions Prescriptions: Albuterol 0.083% Nebulizer Myriam [Ventolin 0.083% Nebulizer Soln -] 1 neb NEB Q4H #100 vial - Referrals Referrals: Goran Hernandez MD [Primary Care Provider] - Call tomorrow - Patient Instructions Printed Discharge Instructions: DI for Chronic Obstructive Pulmonary Disease Additional Instructions: Discharge Instructions: -Continue taking all home medications. -A prescription for albuterol has been sent to your pharmacy; please take as prescribed if needed for shortness of breath -Follow up with Dr. Hernandez tomorrow -Return to the ER immediately with any worsening or concerning symptoms
[2017-02-28] MEDS ORDERED: predniSONE 20 MG TABLET (UD) PO ONE (10:24)
[2017-02-28] MEDS ORDERED: predniSONE 20 MG TABLET (UD) ONE (10:28)
[2017-02-28] MEDS: ALBUTEROL SO4 2.5/IPRATROPIUM 0.5 INH SOL 3 ML VIAL.NEB. NEB SCH ×2 (10:28→10:46)
[2017-02-28] MEDS ORDERED: ALBUTEROL SO4 2.5/IPRATROPIUM 0.5 INH SOL 3 ML VIAL.NEB. NEB ONE (10:28)
[2017-02-28 11:43] LABS: BASO % 0.2 % (0-2.0); EOS % 0.1 % (0-4.5); HEMATOCRIT 38.5 % (32.4-45.2); HEMOGLOBIN 12.4 GM/dL (10.7-15.3); LYMPH % 29.5 % (8-40); MCH 28.9 pg (25.7-33.7); MCHC 32.3 g/dl (32.0-36.0); MEAN CELL VOLUME 89.6 fl (80-96); MONO % 2.3 % (3.8-10.2); NEUT % 67.9 % (42.8-82.8); PLATELET COUNT 312 K/MM3 (134-434); RDW 16.8 % (11.6-15.6); WHITE BLOOD COUNT 11.8 K/mm3 (4.0-10.0)
[2017-02-28 12:34] LABS: URINE APPEARANCE SLCLOUDY; URINE BILIRUBIN NEGATIVE (NEGATIVE); URINE BLOOD NEGATIVE (NEGATIVE); URINE COLOR YELLOW; URINE GLUCOSE (UA) NEGATIVE (NEGATIVE); URINE KETONE NEGATIVE (NEGATIVE); URINE LEUK ESTERASE NEGATIVE (NEGATIVE); URINE NITRITE NEGATIVE (NEGATIVE); URINE PROTEIN NEGATIVE (NEGATIVE); URINE UROBILINOGEN NEGATIVE mg/dL (0.2-1.0)
[2017-02-28 13:17] LABS: ALBUMIN 3.5 g/dl (3.4-5.0); ANION GAP 10 (8-16); BILIRUBIN,TOTAL 0.3 mg/dL (0.2-1.0); BLOOD UREA NITROGEN 16 mg/dL (7-18); CALCIUM 8.6 mg/dL (8.5-10.1); CHLORIDE 100 mmol/L (98-107); CO2 28 mmol/L (21-32); CREATININE 1.1 mg/dL (0.55-1.02); GLUCOSE,RANDOM 266 mg/dL (74-106); SGPT/ALT 31 U/L (12-78); SODIUM 138 mmol/L (136-145); TOT PROT 7.2 g/dl (6.4-8.2)
[2017-02-28 13:18] LABS: ALK PHOS 111 U/L (45-117)
[2017-02-28 13:20] LABS: POTASSIUM 4.2 mmol/L (3.5-5.1)
[2017-02-28 13:21] LABS: SGOT/AST 16 U/L (15-37)
[2017-02-28 15:45] VITALS: BP 119/69; PULSE 96
--- NOTE | 2017-03-01 10:53 | EKG ---
Test Reason : Blood Pressure : / mmHG Vent. Rate : 083 BPM Atrial Rate : 083 BPM P-R Int : 148 ms QRS Dur : 076 ms QT Int : 362 ms P-R-T Axes : 039 -19 061 degrees QTc Int : 425 ms POOR DATA QUALITY, INTERPRETATION MAY BE ADVERSELY AFFECTED NORMAL SINUS RHYTHM POSSIBLE LEFT ATRIAL ENLARGEMENT LEFT VENTRICULAR HYPERTROPHY ABNORMAL ECG WHEN COMPARED WITH ECG OF 16-FEB-2017 05:17, NO SIGNIFICANT CHANGE WAS FOUND Confirmed by MD Mike, Jose ([id number]) on 03/01/2017 10:52:30 AM Referred By: Confirmed By:Jose Mckeon MD
== END 2017-02-28 15:45 | disposition home or self-care (01) ==
LOC: JER 09:30
PROC: 3E0F7GC Introduction of Other Therapeutic Substance into Respiratory Tract, Via Natural or Artificial Opening (ICD-10-PCS; principal; 2017-02-28)
DX: J44.1 Chronic obstructive pulmonary disease with (acute) exacerbation (principal); Z99.81 Dependence on supplemental oxygen; I10 Essential (primary) hypertension; E11.9 Type 2 diabetes mellitus without complications; E78.00 Pure hypercholesterolemia, unspecified; E03.9 Hypothyroidism, unspecified; Z86.69 Personal history of other diseases of the nervous system and sense organs; Z79.4 Long term (current) use of insulin
CPT/HCPCS: 36415; 71045-TC; 80053; 81003; 82550; 84484; 85025; 93005; 93010; 94640; 99283-25

== ENCOUNTER 2017-03-31 10:48 | Inpatient (IN) | payer OTHER, MEDICARE ==
[2017-03-31] MEDS ORDERED: SODIUM CHLORIDE 1,000 ML IV STA (11:58)
[2017-03-31] MEDS: ALBUTEROL SO4 2.5/IPRATROPIUM 0.5 INH SOL 3 ML VIAL.NEB. NEB SCH ×4 (12:00→20:13)
[2017-03-31] MEDS ORDERED: ACETAMINOPHEN 1000 MG/100 ML VIAL (NON FORMULARY) IVPB ONE (12:02)
[2017-03-31] MEDS ORDERED: methylPREDNISolone NA SUCC 125 MG/2 ML VIAL IVPB ONE (12:02)
--- NOTE | 2017-03-31 12:07 | PDOC ---
History of Present Illness - General History Source: Patient Exam Limitations: No Limitations - History of Present Illness Initial Comments: 03/31/17 12:41 The patient is a 62 year old female with a significant PMH of COPD (on 2L of oxygen at home), CHD, IDDM, lupus, HTN, HLD, and hypothyroidism who presents to the emergency department s/p syncopal episode at her rn ortho's office in the setting of shortness of breath, worsening dry cough, subjective fevers, night sweats, and wheezing that began approximately 3 days ago. The patient states she has been using her nebulizer 3-4 times a day with no improvements at home and is currently tapering off prednisone at 10mg from last hospital admission in February. The patient notes associated chest pain radiating the back and dizziness prior to her syncopal episode. As per homeopathic doctor, the patient fell, hit the front of her head on the ground, and had LOC for less than a minute. The patient is now complaining of persistent, pleuritic, mid sternal chest pain since her syncopal episode earlier today. The patient denies any numbness or weakness to the extremities. The patient denies any sick contacts. Patient is not currently on blood thinners. Denies fever, chills, nausea, vomit, diarrhea and constipation. Denies dysuria, frequency, urgency and hematuria. Allergies: NKDA Social hx: The patient is a former smoker. Surgical hx: lapband (11/2016), Cholecystectomy, orthopedic right hip replacement, bilaterally knee arthroscopy, bilateral bunionectomy. PCP: Dr. Hernandez Director Of Field Service: Dr. Hyde <Elena Cash - Last Filed: 03/31/17 12:38> <Melvin Radford - Last Filed: 03/31/17 17:08> - General Chief Complaint: Shortness of Breath Stated Complaint: SOB Time Seen by Provider: 03/31/17 10:51 Past History <Elena Cash - Last Filed: 03/31/17 12:38> - Past Medical History Anemia: No Asthma: Yes Cancer: No Cardiac Disorders: Yes (CAD) CVA: No COPD: Yes (O2 3L CONTINUOUSLY) CHF: No DVT: No Dementia: No Diabetes: Yes GI Disorders: Yes (REFLUX) Disorders: No HTN: Yes Hypercholesterolemia: Yes Liver Disease: No Seizures: Yes (NO RECENT [id number]) Thyroid Disease: Yes (HYPO) - Surgical History Abdominal Surgery: No Appendectomy: No Cardiac Surgery: No Cholecystectomy: Yes GI Surgery: Yes (LAP sx 11/23/16) Lung Surgery: No Neurologic Surgery: No Orthopedic Surgery: Yes (BILAT HIP REPLACEMENT/BILAT KNEE SX) - Immunization History Immunization Up to Date: Yes - Suicide/Smoking/Psychosocial Hx Smoking Status: Yes Smoking History: Never smoked Have you smoked in the past 12 months: No Number of Cigarettes Smoked Daily: 0 If you are a former smoker, when did you quit?: 15YRS AGO Information on smoking cessation initiated: No Hx Alcohol Use: No Drug/Substance Use Hx: No Substance Use Type: None Hx Substance Use Treatment: No <Melvin Radford - Last Filed: 03/31/17 17:08> - Past Medical History Allergies/Adverse Reactions: Allergies Allergy/AdvReac Type Severity Reaction Status Date / Time gabapentin [From Neurontin] Allergy PALPITATIONS, Verified 03/31/17 11:59 PASSES OUT Penicillins Allergy TONGUE Verified 03/31/17 11:59 Swelling phenytoin sodium Allergy diarrhea/vo Verified 03/31/17 11:59 [From Dilantin] miting phenytoin sodium extended Allergy Verified 03/31/17 11:59 [From Dilantin] theophylline [Theophylline] Allergy diarrhea,SE Verified 03/31/17 11:59 IZURES Home Medications: Ambulatory Orders Atorvastatin Ca [Lipitor] 10 mg PO HS 03/31/17 Exenatide [Byetta] 10 mcg SQ BID 03/31/17 Glipizide [Glipizide Xl] 10 mg PO BID 03/31/17 Insulin (LOG) Aspart [NovoLOG -] 6 unit SQ DAILY 03/31/17 Insulin (LOG) Aspart [NovoLOG -] 10 units SQ ASDIR 03/31/17 Insulin Glargine,Hum.rec.anlog [Lantus] 18 unit SQ AM 03/31/17 Levothyroxine [Synthroid -] 50 mcg PO ASDIR 03/31/17 Levothyroxine [Synthroid -] 50 mcg PO ASDIR 03/31/17 Metformin HCl 500 mg PO BID 03/31/17 Review of Systems - Review of Systems Constitutional: Yes: Chills, Fever HEENTM: Yes: Nose Congestion Respiratory: Yes: Cough, Shortness of Breath Cardiac (ROS): Yes: Chest Pain, Edema, Syncope ABD/GI: No: Diarrhea, Vomiting : No: Dysuria, Frequency Neurological: No: Headache All Other Systems: Reviewed and Negative <Melvin Radford - Last Filed: 03/31/17 17:08> *Physical Exam - Vital Signs Last Vital Signs Temp Pulse Resp BP Pulse Ox 101 F H 102 H 26 H 117/99 95 03/31/17 10:51 03/31/17 10:51 03/31/17 10:51 03/31/17 10:51 03/31/17 10:51 - Physical Exam Comments: 03/31/17 12:38 GENERAL: The patient is awake, alert, and fully oriented, in no acute distress. HEAD: Normal with no signs of trauma. EYES: Pupils equal, round and reactive to light, extraocular movements intact, sclera anicteric, conjunctiva clear with no pallor. ENT: Ears normal, nares patent, oropharynx clear without exudates. Moist mucous membranes. NECK: Normal range of motion, supple without lymphadenopathy, JVD, or masses. LUNGS: (+) Fair air entry. (+) Distinct breath sounds. (+) Inspiratory and expiratory wheezing, R>L. No crackles. HEART: Regular rate and rhythm, normal S1 and S2 without murmur or rub. ABDOMEN: Soft/nontender/nondistended. BS wnl. No guarding or rebound. No palpable masses. No hepatosplenomegaly. EXTREMITIES: (+) Trace pretibial edema. Normal range of motion. No clubbing or cyanosis. No cords, erythema, or tenderness. NEUROLOGICAL: Cranial nerves II through XII grossly intact. Normal speech, normal gait. PSYCH: Normal mood, normal affect. SKIN: Warm, Dry, normal turgor, no rashes or lesions noted. <Elena Cash - Last Filed: 03/31/17 12:38> - Vital Signs Last Vital Signs Temp Pulse Resp BP Pulse Ox 101 F H 102 H 26 H 117/99 95 03/31/17 10:51 03/31/17 10:51 03/31/17 10:51 03/31/17 10:51 03/31/17 10:51 <Melvin Radford - Last Filed: 03/31/17 17:08> Heart Score/ECG Review #1 ECG reviewed & interpreted by me at: 10:59 General ECG Interpretation: Sinus Rhythm, Normal Rate (107), Normal Intervals ( qtc 424, LVH), No acute ischemic changes <RalphhortenciaramanaMelvin - Last Filed: 03/31/17 17:08> ED Treatment Course - LABORATORY CBC & Chemistry Diagram: 03/31/17 12:25 03/31/17 12:25 <Elena Cash - Last Filed: 03/31/17 12:38> - LABORATORY CBC & Chemistry Diagram: 03/31/17 12:25 03/31/17 13:45 - RADIOLOGY Radiology Studies Ordered: Category Date Time Status CHEST CTA [CT] Stat CT Scan 03/31/17 12:[address] WITHOUT CONTRAST [CT] Stat CT Scan 03/31/17 12:03 Ordered CHEST X-RAY PORTABLE* [RAD] Stat Radiology 03/31/17 11:58 Ordered <RalphfaustoMelvin - Last Filed: 03/31/17 17:08> Medical Decision Making - Medical Decision Making <Elena Cash - Last Filed: 03/31/17 12:38> - Critical Care Time Total Critical Care Time (minutes): 75 Critical Care Statement: The care of this patient involved high complexity decision making to prevent further life threatening deterioration of the patient 's condition and/or to evaluate & treat vital organ system(s) failure or risk of failure. - Medical Decision Making 03/31/17 12:31 A portion of this note was documented by scribe services under my direction. I have reviewed the details of the note, within reason, and agree with the documentation with the following case summary and management plan written by me. 62-year-old female with history of COPD presents with syncopal episode while at her rn ortho's office in the setting of worsening cough, shortness of breath, and subjective fever/chills over the last 3 days. Prior to the syncope, patient had chest pressure radiating to her back, reports that is now persistent. Vitals as noted, fever, tachycardia, tachypnea, O2 sat 95% on 3 L status post nebulizers by EMS Trauma exam is negative Tachypnea but speaking full sentences Scattered inspiratory and expiratory wheezing 62-year-old female with history of COPD presents with worsening respiratory symptoms, fever, and now syncope with chest pain. Concerning for sepsis, possibly pneumonia, possibly influenza. Positive COPD exacerbation. Chest pain with syncope could be concerning for dissection versus PE given recent hospitalizations. Blood pressure normal. Sepsis protocol initiated Tylenol, antibiotics as needed Nebulizers, IV steroids CT head, chest x-ray. CTA chest. Admission 03/31/17 13:37 CXR without acute pathology, CBC wnl . 03/31/17 16:35 chem wnl, trop negative. CT head without acute injury. CTA chest pending report. Treated empirically for influenza with Tamiflu. Accepted for inpatient tele by Dr. Caldwell, signout given to UNIFORM CAP OPERATOR Francis. 03/31/17 17:07 No PE or aneurysm on CTA chest. Respiratory status improved. Likely COPD exacerbation in the setting of SARAH, also syncope, r/o ACS. <Melvin Radford - Last Filed: 03/31/17 17:08> *DC/Admit/Observation/Transfer - Attestations Scribe Attestion: 03/31/17 12:41 Documentation prepared by Elena Cash, acting as diploma medical assistant for Melvin Radford MD. <Elena Cash - Last Filed: 03/31/17 12:38> - Discharge Dispostion Admit: Yes <Melvin Radford - Last Filed: 03/31/17 17:08> Diagnosis at time of Disposition: Acute exacerbation of chronic obstructive pulmonary disease (COPD), Syncope and collapse, Influenza-like illness Chest pain Qualifiers: Chest pain type: precordial pain Qualified Code(s): R07.2 - Precordial pain - Discharge Dispostion Condition at time of disposition: Fair - Referrals Referrals: Goran Hernandez MD [Primary Care Provider] - - Patient Instructions - Post Discharge Activity
[2017-03-31 12:40] LABS: BASO % 0.6 % (0-2.0); EOS % 0.2 % (0-4.5); HEMATOCRIT 37.9 % (32.4-45.2); HEMOGLOBIN 12.4 GM/dL (10.7-15.3); LYMPH % 12.2 % (8-40); MCH 29.5 pg (25.7-33.7); MCHC 32.6 g/dl (32.0-36.0); MEAN CELL VOLUME 90.4 fl (80-96); MEAN PLT VOLUME 7.9 fl (7.5-11.1); PLATELET COUNT 331 K/MM3 (134-434); RBC 4.19 M/mm3 (3.60-5.2); RDW 16.5 % (11.6-15.6); WHITE BLOOD COUNT 8.9 K/mm3 (4.0-10.0)
[2017-03-31 12:42] LABS: VENOUS PC02 44.6 mmHg (38-52); VENOUS PH 7.39 (7.32-7.42); VENOUS PO2 33.6 mmHg (28-48)
[2017-03-31 12:50] LABS: INR 1.12 (0.82-1.09); PROTHROMBIN TIME (PATIENT) 12.7 SEC (9.98-11.88)
[2017-03-31] MEDS ORDERED: ACETAMINOPHEN INJECTION 100 ML IVPB ONE (12:50)
[2017-03-31] MEDS ORDERED: methylPREDNISolone NA SUCC 125 MG/2 ML VIAL ONE (12:51)
[2017-03-31 14:34] LABS: URINE APPEARANCE SLCLOUDY; URINE BILIRUBIN NEGATIVE (NEGATIVE); URINE BLOOD NEGATIVE (NEGATIVE); URINE COLOR LTYELLOW; URINE GLUCOSE (UA) NEGATIVE (NEGATIVE); URINE KETONE NEGATIVE (NEGATIVE); URINE LEUK ESTERASE NEGATIVE (NEGATIVE); URINE NITRITE NEGATIVE (NEGATIVE); URINE PROTEIN NEGATIVE (NEGATIVE); URINE UROBILINOGEN NEGATIVE mg/dL (0.2-1.0)
[2017-03-31 14:42] LABS: ALBUMIN 3.1 g/dl (3.4-5.0); ANION GAP 10 (8-16); BILIRUBIN,TOTAL 0.2 mg/dL (0.2-1.0); BLOOD UREA NITROGEN 16 mg/dL (7-18); CALCIUM 8.3 mg/dL (8.5-10.1); CHLORIDE 107 mmol/L (98-107); CO2 25 mmol/L (21-32); GLUCOSE,RANDOM 117 mg/dL (74-106); POTASSIUM 3.6 mmol/L (3.5-5.1); SGOT/AST 15 U/L (15-37); SGPT/ALT 24 U/L (12-78); SODIUM 142 mmol/L (136-145); TOT PROT 6.8 g/dl (6.4-8.2)
[2017-03-31 14:46] LABS: ALK PHOS 106 U/L (45-117)
--- NOTE | 2017-03-31 16:28 | EKG ---
Test Reason : Blood Pressure : / mmHG Vent. Rate : 107 BPM Atrial Rate : 107 BPM P-R Int : 152 ms QRS Dur : 068 ms QT Int : 318 ms P-R-T Axes : 025 -23 067 degrees QTc Int : 424 ms SINUS TACHYCARDIA VOLTAGE CRITERIA FOR LEFT VENTRICULAR HYPERTROPHY ABNORMAL ECG WHEN COMPARED WITH ECG OF 28-FEB-2017 10:52, NO SIGNIFICANT CHANGE WAS FOUND Confirmed by ROSSY RODRIGUES MD ([id number]) on 03/31/2017 4:27:36 PM Referred By: Confirmed By:ROSSY RODRIGUES MD
[2017-03-31] MEDS ORDERED: OSELTAMIVIR PHOSPHATE 75 MG CAPSULE PO ONE (16:33)
[2017-03-31] MEDS ORDERED: OSELTAMIVIR PHOSPHATE 75 MG CAPSULE ONE ×2 (17:17→22:02)
--- NOTE | 2017-03-31 17:25 | HP ---
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 The patient states for the last 3 days shes been feeling sob, with cough, fevers, night sweats, and wheezing with minimal improvement from nebulizer 3-4x times/day. Today, pt states she was having chest pain radiating to her back and then became lightheaded and dizzy and then she passed out and hit her head losing consciousness for ~1min. Pt was recently admitted 02/2017 and currently on prednisone taper of 20mg daily. ED course: - CTA negative - Duo nebs History Source: Patient, Medical Record Limitations to Obtaining History: No Limitations - Past Medical History [employer]: Yes: Alzheimer's, Seizure, Syncope Cardiovascular: Yes: CAD, HTN, Hyperlipdemia Pulmonary: Yes: Asthma, COPD, O2 Dependent, Sleep Apnea, Other (uses NIPPV at night) ...LMP: 03/18/01 Heme/Onc: Yes: Anemia Rheumatology: Yes: Lupus Endocrine: Yes: Diabetes Mellitus - Past Surgical History Past Surgical History: Yes: Cataract Removal, Cholecystectomy, Joint Replacement (Right total hip replacement), Tonsillectomy - Smoking History Smoking history: Never smoked Have you smoked in the past 12 months: No Aproximately how many cigarettes per day: 0 If you are a former smoker, when did you quit?: 15YRS AGO - Alcohol/Substance Use Hx Alcohol Use: No History of Substance Use: reports: None - Social History ADL: Independent History of Recent Travel: No Home Medications - Allergies Allergies/Adverse Reactions: Allergies Allergy/AdvReac Type Severity Reaction Status Date / Time gabapentin [From Neurontin] Allergy PALPITATIONS, Verified 03/31/17 11:59 PASSES OUT Penicillins Allergy TONGUE Verified 03/31/17 11:59 Swelling phenytoin sodium Allergy diarrhea/vo Verified 03/31/17 11:59 [From Dilantin] miting phenytoin sodium extended Allergy Verified 03/31/17 11:59 [From Dilantin] theophylline [Theophylline] Allergy diarrhea,SE Verified 03/31/17 11:59 IZURES - Home Medications Home Medications: Ambulatory Orders Albuterol Sulfate [Proair Hfa] 1 puff IH Q4H PRN 03/31/17 Atorvastatin Ca [Lipitor] 10 mg PO HS 03/31/17 Biotin 5,000 mcg PO DAILY 03/31/17 Budesonide/Formeterol Fumarate [SYMBICORT 160/4.5mcg -] 2 inh PO BID 03/31/17 Carbamazepine [Carbamazepine ER] 300 mg PO BID 03/31/17 Exenatide [Byetta] 10 mcg SQ BID 03/31/17 Furosemide [Lasix -] 40 mg PO DAILY 03/31/17 Glipizide [Glipizide Xl] 10 mg PO BID 03/31/17 Hydroxychloroquine So4 [Plaquenil -] 200 mg PO BID 03/31/17 Insulin (LOG) Aspart [NovoLOG -] 6 unit SQ DAILY 03/31/17 Insulin (LOG) Aspart [NovoLOG -] 10 units SQ ASDIR 03/31/17 Insulin Glargine,Hum.rec.anlog [Lantus] 22 unit SQ AM 03/31/17 Levothyroxine [Synthroid -] 50 mcg PO ASDIR 03/31/17 Levothyroxine [Synthroid -] 50 mcg PO ASDIR 03/31/17 Losartan Potassium 50 mg PO DAILY 03/31/17 Metformin HCl 500 mg PO BID 03/31/17 Methotrexate [Mexate -] 62.5 mg PO Q7D 03/31/17 Montelukast Na [Singulair -] 10 mg PO HS 03/31/17 [place]-3 Fatty Acids [[place]-3] 1,000 mg PO DAILY 03/31/17 Pramipexole Dihydrochloride [Mirapex -] 0.5 mg PO BID 03/31/17 Sertraline HCl 100 mg PO HS 03/31/17 Tiotropium [place] [Spiriva] 1 inh PO DAILY 03/31/17 Topiramate 100 mg PO BID 03/31/17 Review of Systems - Review of Systems Constitutional: reports: Malaise, Night Sweats Eyes: reports: No Symptoms HENT: reports: No Symptoms Neck: reports: No Symptoms Cardiovascular: reports: Chest Pain, Shortness of Breath Respiratory: reports: Cough, SOB, SOB on Exertion, Wheezing Gastrointestinal: reports: No Symptoms Genitourinary: reports: No Symptoms Musculoskeletal: reports: No Symptoms Integumentary: reports: No Symptoms Neurological: reports: No Symptoms Endocrine: reports: No Symptoms Hematology/Lymphatic: reports: No Symptoms Psychiatric: reports: No Symptoms Physical Examination Vital Signs: Vital Signs Temperature 101 F H 03/31/17 10:51 Pulse Rate 102 H 03/31/17 10:51 Respiratory Rate 26 H 03/31/17 10:51 Blood Pressure 117/99 03/31/17 10:51 O2 Sat by Pulse Oximetry (%) 95 03/31/17 10:51 Constitutional: Yes: Well Nourished Eyes: Yes: Conjunctiva Clear HENT: Yes: Atraumatic Neck: Yes: Supple Cardiovascular: Yes: Regular Rate and Rhythm, S1, S2 Respiratory: Yes: Diminished, On Nasal O2 Gastrointestinal: Yes: Normal Bowel Sounds, Soft Musculoskeletal: Yes: WNL Extremities: Yes: WNL Edema: No Integumentary: Yes: WNL Neurological: Yes: Alert, Oriented, Cran Nerves II-XII Intact Labs: CBC, BMP 03/31/17 12:25 03/31/17 13:45 Imaging - Results Chest X-ray: Report Reviewed, Image Reviewed Cat Scan: Report Reviewed Problem List - Problems (1) Acute exacerbation of chronic obstructive pulmonary disease (COPD) Code(s): J44.1 - CHRONIC OBSTRUCTIVE PULMONARY DISEASE W (ACUTE) EXACERBATION (2) Chest pain Code(s): R07.9 - CHEST PAIN, UNSPECIFIED Qualifiers: Chest pain type: precordial pain Qualified Code(s): R07.2 - Precordial pain (3) Influenza-like illness Code(s): R69 - ILLNESS, UNSPECIFIED (4) Syncope and collapse Code(s): R55 - SYNCOPE AND COLLAPSE (5) COPD (chronic obstructive pulmonary disease) Code(s): J44.9 - CHRONIC OBSTRUCTIVE PULMONARY DISEASE, UNSPECIFIED Qualifiers: COPD type: unspecified COPD Qualified Code(s): J44.9 - Chronic obstructive pulmonary disease, unspecified (6) Hypertension Code(s): I10 - ESSENTIAL (PRIMARY) HYPERTENSION Qualifiers: Hypertension type: essential hypertension Qualified Code(s): I10 - Essential (primary) hypertension (7) Hypothyroidism Code(s): E03.9 - HYPOTHYROIDISM, UNSPECIFIED Qualifiers: Hypothyroidism type: unspecified Qualified Code(s): E03.9 - Hypothyroidism , unspecified (8) SLE (systemic lupus erythematosus) Code(s): M32.9 - SYSTEMIC LUPUS ERYTHEMATOSUS, UNSPECIFIED (9) Seizure disorder Code(s): G40.909 - EPILEPSY, UNSP, NOT INTRACTABLE, WITHOUT STATUS EPILEPTICUS Assessment/Plan Assessment: 62 year old female with a significant PMH of COPD (on 2L of oxygen at home), CHF, IDDM, lupus, HTN, HLD, seizures, and hypothyroidism admitted s/p syncopal episode 2/2 worsening sob and chest pain referring to back Plan: 1. Acute Asthma exacerbation - Start medrol 40mg q8 - Duo nebs - Supplemental 02 - symbicort - Spiriva - Singulair - Pulm consult 2. Influenza - Empirical treat due to symptoms - Tamiflu 75mg BID 3. HTN - Losartan 50mg daily - Lasix 40mg daily 4. Hypothyroid - Synthroid 50mcg 5. Lupus - Plaquenil - Mirapex 6. HLD - Statin 7 Seizures - Topamax - Dr. Block neuro 8. DM II - Levemir 22 units - ISS, BGM ACHS 9. DVT - Lovenox sq Visit type - Emergency Visit Emergency Visit: Yes ED Registration Date: 03/31/17 Care time: The patient presented to the Emergency Department on the above date and was hospitalized for further evaluation of their emergent condition. - New Patient This patient is new to me today: Yes Date on this admission: 04/01/17 - Critical Care Critical Care patient: No
[2017-03-31] MEDS ORDERED: ALBUTEROL SO4 2.5/IPRATROPIUM 0.5 INH SOL 3 ML VIAL.NEB. NEB ONE (20:09)
[2017-03-31] MEDS: OSELTAMIVIR PHOSPHATE 75 MG CAPSULE PO SCH (22:06)
[2017-04-01] MEDS ORDERED: methylPREDNISolone NA SUCC 40 MG/1 ML VIAL ONE (02:41)
[2017-04-01] MEDS: methylPREDNISolone NA SUCC 40 MG/1 ML VIAL IVPUSH SCH ×3 (02:55→18:11)
[2017-04-01] MEDS ORDERED: ALBUTEROL SO4 2.5/IPRATROPIUM 0.5 INH SOL 3 ML VIAL.NEB. NEB ONE ×2 (08:01→12:02)
[2017-04-01] MEDS: ALBUTEROL SO4 2.5/IPRATROPIUM 0.5 INH SOL 3 ML VIAL.NEB. NEB SCH ×4 (08:02→20:09)
[2017-04-01 08:58] LABS: BASO % 0.4 % (0-2.0); HEMATOCRIT 36.5 % (32.4-45.2); HEMOGLOBIN 11.6 GM/dL (10.7-15.3); LYMPH % 13.3 % (8-40); MCH 29.3 pg (25.7-33.7); MCHC 31.8 g/dl (32.0-36.0); MEAN PLT VOLUME 8.3 fl (7.5-11.1); MONO % 3.5 % (3.8-10.2); NEUT % 82.8 % (42.8-82.8); PLATELET COUNT 326 K/MM3 (134-434); RBC 3.96 M/mm3 (3.60-5.2); RDW 16.4 % (11.6-15.6); WHITE BLOOD COUNT 8.2 K/mm3 (4.0-10.0)
[2017-04-01 09:02] LABS: ALBUMIN 3.5 g/dl (3.4-5.0); ANION GAP 13 (8-16); BILIRUBIN,TOTAL 0.3 mg/dL (0.2-1.0); BLOOD UREA NITROGEN 18 mg/dL (7-18); CALCIUM 8.8 mg/dL (8.5-10.1); CHLORIDE 105 mmol/L (98-107); CO2 23 mmol/L (21-32); CREATININE 1.1 mg/dL (0.55-1.02); GLUCOSE,RANDOM 199 mg/dL (74-106); POTASSIUM 4.2 mmol/L (3.5-5.1); SGOT/AST 12 U/L (15-37); SGPT/ALT 22 U/L (12-78); SODIUM 141 mmol/L (136-145)
[2017-04-01 09:05] LABS: ALK PHOS 114 U/L (45-117); N-TERMINAL BNP 142.34 pg/ml (5-125); TOT PROT 7.5 g/dl (6.4-8.2)
[2017-04-01] MEDS: OSELTAMIVIR PHOSPHATE 75 MG CAPSULE PO SCH ×2 (09:59→22:07)
[2017-04-01] MEDS: PANTOPRAZOLE 40 MG TABLET (FP) PO SCH (10:00)
[2017-04-01] MEDS: ENOXAPARIN NA (PORCINE) 40 MG/0.4 ML DISP.SYRIN SQ SCH (10:00)
--- NOTE | 2017-04-01 14:52 | CON.PULM ---
Consult Consult Specialty:: PULMONARY Referred by:: FORTINO Reason for Consultation:: SOB/COUGH/COPD - History of Present Illness Chief Complaint: SOB History of Present Illness: The patient is a 61 year old female with a significant past medical history of COPD (on 2L of O2 at home), CHF, diabetes, hypertension, hyperlipidemia, and hypothyroidism, lupus who presents to the ED s/p discharge for COPD exacerbation on 02/11/17 for complaint of recurrent dyspnea and chest tightness with constant nonproductive cough. The patient states she has been compliant with her medications. She reports a dry cough. She reports her last dose of prednisone was yesterday. She does not smoke and does not have any pets in the house. She had lap-band surgery 4 months ago and has lost 30 lbs since. - History Source History Provided By: Patient, Medical Record Limitations to Obtaining History: No Limitations - Past Medical History CCO: Yes: Alzheimer's, Seizure, Syncope Cardio/Vascular: Yes: CAD, HTN, Hyperlipdemia Pulmonary: Yes: Asthma, COPD, O2 Dependent, Sleep Apnea, Other (uses NIPPV at night) ...LMP: 03/18/01 Rheumatology: Yes: Lupus Endocrine: Yes: Diabetes Mellitus - Past Surgical History Past Surgical History: Yes: Cataract Removal, Cholecystectomy, , Joint Replacement (Right total hip replacement), Tonsillectomy - Alcohol/Substance Use Hx Alcohol Use: No History of Substance Use: reports: None - Smoking History Smoking history: Never smoked Have you smoked in the past 12 months: No Aproximately how many cigarettes per day: 0 If you are a former smoker, when did you quit?: 15YRS AGO - Social History Usual Living Arrangement: With Spouse ADL: Independent History of Recent Travel: No Home Medications - Allergies Allergies/Adverse Reactions: Allergies Allergy/AdvReac Type Severity Reaction Status Date / Time gabapentin [From Neurontin] Allergy PALPITATIONS, Verified 03/31/17 11:59 PASSES OUT Penicillins Allergy TONGUE Verified 03/31/17 11:59 Swelling phenytoin sodium Allergy diarrhea/vo Verified 03/31/17 11:59 [From Dilantin] miting phenytoin sodium extended Allergy Verified 03/31/17 11:59 [From Dilantin] theophylline [Theophylline] Allergy diarrhea,SE Verified 03/31/17 11:59 IZURES - Home Medications Home Medications: Ambulatory Orders Albuterol Sulfate [Proair Hfa] 1 puff IH Q4H PRN 03/31/17 Atorvastatin Ca [Lipitor] 10 mg PO HS 03/31/17 Biotin 5,000 mcg PO DAILY 03/31/17 Budesonide/Formeterol Fumarate [SYMBICORT 160/4.5mcg -] 2 inh PO BID 03/31/17 Carbamazepine [Carbamazepine ER] 300 mg PO BID 03/31/17 Exenatide [Byetta] 10 mcg SQ BID 03/31/17 Furosemide [Lasix -] 40 mg PO DAILY 03/31/17 Glipizide [Glipizide Xl] 10 mg PO BID 03/31/17 Hydroxychloroquine So4 [Plaquenil -] 200 mg PO BID 03/31/17 Insulin (LOG) Aspart [NovoLOG -] 6 unit SQ DAILY 03/31/17 Insulin (LOG) Aspart [NovoLOG -] 10 units SQ ASDIR 03/31/17 Insulin Glargine,Hum.rec.anlog [Lantus] 22 unit SQ AM 03/31/17 Levothyroxine [Synthroid -] 50 mcg PO ASDIR 03/31/17 Levothyroxine [Synthroid -] 50 mcg PO ASDIR 03/31/17 Losartan Potassium 50 mg PO DAILY 03/31/17 Metformin HCl 500 mg PO BID 03/31/17 Methotrexate [Mexate -] 62.5 mg PO Q7D 03/31/17 Montelukast Na [Singulair -] 10 mg PO HS 03/31/17 [place]-3 Fatty Acids [[place]-3] 1,000 mg PO DAILY 03/31/17 Pramipexole Dihydrochloride [Mirapex -] 0.5 mg PO BID 03/31/17 Sertraline HCl 100 mg PO HS 03/31/17 Tiotropium [place] [Spiriva] 1 inh PO DAILY 03/31/17 Topiramate 100 mg PO BID 03/31/17 Family Disease History - Family Disease History Family History: Unremarkable Review of Systems - Review of Systems Cardiovascular: reports: Shortness of Breath Respiratory: reports: Cough, Exercise Intolerance, SOB, SOB on Exertion, Wheezing. denies: Hemoptysis Physical Exam Vital Sings: Vital Signs Temperature 98.9 F 04/01/17 07:18 Pulse Rate 76 04/01/17 12:00 Respiratory Rate 22 04/01/17 12:00 Blood Pressure 127/59 04/01/17 12:00 O2 Sat by Pulse Oximetry (%) 100 04/01/17 12:00 Constitutional: Yes: Calm Eyes: Yes: EOM Intact HENT: Yes: Normocephalic Neck: Yes: Trachea Midline Cardiovascular: Yes: Regular Rate and Rhythm Respiratory: Yes: Diminished Gastrointestinal: Yes: Normal Bowel Sounds, Soft Edema: No Neurological: Yes: Alert Labs: CBC, BMP 04/01/17 08:22 04/01/17 08:22 REST REVIEWED Imaging - Results Chest X-ray: Report Reviewed, Image Reviewed Cat Scan: Report Reviewed, Image Reviewed EKG: Report Reviewed Assessment/Plan RE-ADMITTED W ACUTE EXACERBATION COPD/ELEVATION OF LEFT HEMIDIAPHRAGM SLE/RECENT BARIATRIC SURG (?CAUSE OF LEFT LUCILA ELEVATION) RESTART STEROIDS/BRONCHODILATORS/TRIAL OF ANTIBIOTICS CONTINUE IMMUNOSUPPRESANTS FOR SLE NIPPV/O2 SUPPLEMENTATION. Eduin HART MD
--- NOTE | 2017-04-01 14:52 | PN ---
Physical Exam: SUBJECTIVE: Patient seen and examined. States her chest pain is improved, she still feels the same. Appears improved, eating lunch. OBJECTIVE: Vital Signs Period Temp Pulse Resp BP Sys/Oconnell Pulse Ox Last 24 Hr 97.5 F-98.9 F 71-95 20-22 104-128/41-68 98-100 PE Neuro: alert, awake, cn 2-12intact Pulm: distant, diminished +nc CV: s1 s2 rrr Abd: s nt nd +bs Ext: warm, no pitting edema Laboratory Results - last 24 hr 04/01/17 04/01/17 08:22 08:22 WBC 8.2 RBC 3.96 Hgb 11.6 Hct 36.5 MCV 92.0 MCH 29.3 MCHC 31.8 L RDW 16.4 H Plt Count 326 MPV 8.3 Neutrophils % 82.8 Lymphocytes % 13.3 Monocytes % 3.5 L Eosinophils % 0.0 D Basophils % 0.4 Sodium 141 Potassium 4.2 Chloride 105 Carbon Dioxide 23 Anion Gap 13 BUN 18 Creatinine 1.1 H Creat Clearance w eGFR 50.50 Random Glucose 199 H Calcium 8.8 Total Bilirubin 0.3 D AST 12 L ALT 22 Alkaline Phosphatase 114 B-Natriuretic Peptide 142.34 H Total Protein 7.5 Albumin 3.5 Active Medications Generic Name Dose Route Start Last Admin Trade Name Freq PRN Reason Stop Dose Admin Acetaminophen 650 mg 03/31/17 18:46 Tylenol - PO Q4H PRN PAIN LEVEL 4 - 6 Albuterol/Ipratropium 1 amp 03/31/17 20:00 04/01/17 12:01 Duoneb - NEB 1 amp RQID DONTA Administration Atorvastatin Calcium 10 mg 04/01/17 22:00 Lipitor - PO HS DONTA Budesonide/Formoterol Fumarate 2 puff 04/01/17 22:00 Symbicort 160/4.5mcg - IH BID DONTA Enoxaparin Sodium 40 mg 04/01/17 10:00 04/01/17 10:00 Lovenox - SQ 40 mg DAILY DONTA Administration Furosemide 40 mg 04/01/17 15:00 Lasix - PO DAILY [facility] Hydroxychloroquine Sulfate 200 mg 04/01/17 22:00 Plaquenil - PO BID [facility] Levothyroxine Sodium 50 mcg 04/02/17 07:00 Synthroid - PO DAILY@0700 DONTA Losartan Potassium 50 mg 04/01/17 15:00 Cozaar - PO DAILY DONTA Methylprednisolone Sodium Succinate 40 mg 04/01/17 02:00 04/01/17 10:00 Solu-Medrol - IVPUSH 40 mg Q8H-IV DONTA Administration Montelukast Sodium 10 mg 04/01/17 22:00 Singulair - PO HS [facility] Non-Formulary Medication 22 unit 04/01/17 22:00 Insulin Glargine,Hum.Rec.Anlog [Lantus] SQ HS [facility] Oseltamivir Phosphate 75 mg 03/31/17 22:00 04/01/17 09:59 Tamiflu - PO 04/05/17 21:59 75 mg BID DONTA Administration Pantoprazole Sodium 40 mg 04/01/17 10:00 04/01/17 10:00 Protonix - PO 40 mg DAILY DONTA Administration Pramipexole Dihydrochloride 0.5 mg 04/01/17 22:00 Mirapex - PO BID [facility] Tiotropium [place] 1 puff 04/02/17 10:00 Spiriva - IH DAILY [facility] Topiramate 100 mg 04/01/17 22:00 Topamax - PO BID [facility] Assessment: 62 year old female with a significant PMH of COPD (on 2L of oxygen at home), CHF, IDDM, lupus, HTN, HLD, seizures, and hypothyroidism admitted s/p syncopal episode 2/2 worsening sob and chest pain referring to back Plan: 1. Acute Asthma/copd exacerbation - Medrol 40mg q8 - Duo nebs - Supplemental 02 - symbicort - Spiriva - Singulair - Trial levaquin 500mg x3 days - Pulm seeing 2. Influenza - Empirical treat due to symptoms - Tamiflu 75mg BID (day 1) 3. HTN - Losartan 50mg daily - Lasix 40mg daily 4. Hypothyroid - Synthroid 50mcg 5. Lupus - Plaquenil - Mirapex 6. HLD - Statin 7 Seizures - Topamax - Dr. Block neuro 8. DM II - Levemir 22 units - ISS, BGM ACHS 9. DVT - Lovenox sq Problem List - Problems (1) Acute exacerbation of chronic obstructive pulmonary disease (COPD) Code(s): J44.1 - CHRONIC OBSTRUCTIVE PULMONARY DISEASE W (ACUTE) EXACERBATION (2) Chest pain Code(s): R07.9 - CHEST PAIN, UNSPECIFIED Qualifiers: Chest pain type: precordial pain Qualified Code(s): R07.2 - Precordial pain (3) Influenza-like illness Code(s): R69 - ILLNESS, UNSPECIFIED (4) Syncope and collapse Code(s): R55 - SYNCOPE AND COLLAPSE (5) COPD (chronic obstructive pulmonary disease) Code(s): J44.9 - CHRONIC OBSTRUCTIVE PULMONARY DISEASE, UNSPECIFIED Qualifiers: COPD type: unspecified COPD Qualified Code(s): J44.9 - Chronic obstructive pulmonary disease, unspecified (6) Hypertension Code(s): I10 - ESSENTIAL (PRIMARY) HYPERTENSION Qualifiers: Hypertension type: essential hypertension Qualified Code(s): I10 - Essential (primary) hypertension (7) Hypothyroidism Code(s): E03.9 - HYPOTHYROIDISM, UNSPECIFIED Qualifiers: Hypothyroidism type: unspecified Qualified Code(s): E03.9 - Hypothyroidism , unspecified (8) SLE (systemic lupus erythematosus) Code(s): M32.9 - SYSTEMIC LUPUS ERYTHEMATOSUS, UNSPECIFIED (9) Seizure disorder Code(s): G40.909 - EPILEPSY, UNSP, NOT INTRACTABLE, WITHOUT STATUS EPILEPTICUS Visit type - Emergency Visit Emergency Visit: Yes ED Registration Date: 03/31/17 Care time: The patient presented to the Emergency Department on the above date and was hospitalized for further evaluation of their emergent condition. - New Patient This patient is new to me today: No - Critical Care Critical Care patient: No
[2017-04-01] MEDS: LOSARTAN POTASSIUM 50 MG TABLET (FP) PO SCH (16:46)
[2017-04-01] MEDS: FUROSEMIDE 40 MG TABLET (FP) PO SCH (16:46)
[2017-04-01] MEDS: INSULIN SLIDING SCALE (NOVOLOG) 1 VIAL SQ SCH (17:00)
[2017-04-01] MEDS ORDERED: INSULIN (NOVOLOG) ASPART 100 UNITS/ML 10ML VIAL ONE (17:03)
[2017-04-02] MEDS: PRAMIPEXOLE DIHYDROCHLORIDE 0.5 MG TABLET PO SCH ×3 (00:31→21:41)
[2017-04-02] MEDS: ATORVASTATIN CA 10 MG TABLET (FP) PO SCH ×2 (00:31→21:41)
[2017-04-02] MEDS: INSULIN DETEMIR 100 UNITS/ML MDV SQ SCH ×2 (00:31→21:44)
[2017-04-02] MEDS: HYDROXYCHLOROQUINE SO4 200 MG TABLET (FP) PO SCH ×3 (00:31→21:41)
[2017-04-02] MEDS: TOPIRAMATE 100 MG TABLET PO SCH ×3 (00:31→21:43)
[2017-04-02] MEDS: MONTELUKAST NA 10 MG TABLET PO SCH ×2 (00:31→21:42)
[2017-04-02] MEDS: INSULIN SLIDING SCALE (NOVOLOG) 1 VIAL SQ SCH ×5 (00:31→21:44)
[2017-04-02 00:49] VITALS: BMI 45.6
[2017-04-02] MEDS: methylPREDNISolone NA SUCC 40 MG/1 ML VIAL IVPUSH SCH ×3 (01:04→17:01)
[2017-04-02] MEDS: BUDESONIDE/FORMETEROL FUMARATE 160/4.5 mcg INHALER IH SCH ×3 (01:04→21:43)
[2017-04-02] MEDS: LEVOTHYROXINE NA 50 MCG TABLET (FP) PO SCH (06:34)
--- NOTE | 2017-04-02 07:31 | PN ---
Physical Exam: SUBJECTIVE: Patient seen and examined. Cough is better. OBJECTIVE: Vital Signs Period Temp Pulse Resp BP Sys/Oconnell Pulse Ox Last 24 Hr 97.7 F-99.0 F 57-89 20-22 106-129/50-84 98-100 GENERAL: The patient is awake, alert, and fully oriented, in no acute distress. LUNGS: Mild expiratory wheezing HEART: Regular rate and rhythm, S1, S2 ABDOMEN: Soft, nontender, nondistended, normoactive bowel sounds, no guarding, no rebound EXTREMITIES: 2+ pulses, warm, well-perfused, no edema. NEUROLOGICAL: Cranial nerves II through XII grossly intact. Normal speech SKIN: Warm, dry, normal turgor Laboratory Results - last 24 hr 04/01/17 04/01/17 04/01/17 08:22 08:22 16:56 WBC 8.2 RBC 3.96 Hgb 11.6 Hct 36.5 MCV 92.0 MCH 29.3 MCHC 31.8 L RDW 16.4 H Plt Count 326 MPV 8.3 Neutrophils % 82.8 Lymphocytes % 13.3 Monocytes % 3.5 L Eosinophils % 0.0 D Basophils % 0.4 Sodium 141 Potassium 4.2 Chloride 105 Carbon Dioxide 23 Anion Gap 13 BUN 18 Creatinine 1.1 H Creat Clearance w eGFR 50.50 POC Glucometer [phone] Random Glucose 199 H Calcium 8.8 Total Bilirubin 0.3 D AST 12 L ALT 22 Alkaline Phosphatase 114 B-Natriuretic Peptide 142.34 H Total Protein 7.5 Albumin 3.5 04/02/17 00:20 WBC RBC Hgb Hct MCV MCH MCHC RDW Plt Count MPV Neutrophils % Lymphocytes % Monocytes % Eosinophils % Basophils % Sodium Potassium Chloride Carbon Dioxide Anion Gap BUN Creatinine Creat Clearance w eGFR POC Glucometer 206 Random Glucose Calcium Total Bilirubin AST ALT Alkaline Phosphatase B-Natriuretic Peptide Total Protein Albumin Active Medications Generic Name Dose Route Start Last Admin Trade Name Freq PRN Reason Stop Dose Admin Acetaminophen 650 mg 03/31/17 18:46 Tylenol - PO Q4H PRN PAIN LEVEL 4 - 6 Albuterol/Ipratropium 1 amp 03/31/17 20:00 04/01/17 20:09 Duoneb - NEB 1 amp RQID DONTA Administration Atorvastatin Calcium 10 mg 04/01/17 22:00 04/02/17 00:31 Lipitor - PO 10 mg HS DONTA Administration Budesonide/Formoterol Fumarate 2 puff 04/01/17 22:00 04/02/17 01:04 Symbicort 160/4.5mcg - IH 2 puff BID DONTA Administration Enoxaparin Sodium 40 mg 04/01/17 10:00 04/01/17 10:00 Lovenox - SQ 40 mg DAILY DONTA Administration Furosemide 40 mg 04/01/17 15:00 04/01/17 16:46 Lasix - PO 40 mg DAILY DONTA Administration Hydroxychloroquine Sulfate 200 mg 04/01/17 22:00 04/02/17 00:31 Plaquenil - PO 200 mg BID DONTA Administration Insulin Aspart 1 vial 04/01/17 16:30 04/02/17 06:33 Novolog Vial Sliding Scale - SQ 4 unit ACHS DONTA Administration Protocol Insulin Detemir 22 units 04/01/17 22:00 04/02/17 00:31 Levemir Vial SQ 22 unit HS DONTA Administration Levofloxacin 500 mg 04/01/17 15:15 04/01/17 16:46 Levaquin - PO 04/03/17 15:14 500 mg DAILY DONTA Administration Levothyroxine Sodium 50 mcg 04/02/17 07:00 04/02/17 06:34 Synthroid - PO 50 mcg DAILY@0700 DONTA Administration Losartan Potassium 50 mg 04/01/17 15:00 04/01/17 16:46 Cozaar - PO 50 mg DAILY DONTA Administration Methylprednisolone Sodium Succinate 40 mg 04/01/17 02:00 04/02/17 01:04 Solu-Medrol - IVPUSH 40 mg Q8H-IV DONTA Administration Montelukast Sodium 10 mg 04/01/17 22:00 04/02/17 00:31 Singulair - PO 10 mg HS DONTA Administration Oseltamivir Phosphate 75 mg 03/31/17 22:00 04/01/17 22:07 Tamiflu - PO 04/05/17 21:59 75 mg BID DONTA Administration Pantoprazole Sodium 40 mg 04/01/17 10:00 04/01/17 10:00 Protonix - PO 40 mg DAILY DONTA Administration Pramipexole Dihydrochloride 0.5 mg 04/01/17 22:00 04/02/17 00:31 Mirapex - PO 0.5 mg BID DONTA Administration Topiramate 100 mg 04/01/17 22:00 04/02/17 00:31 Topamax - PO 100 mg BID DONTA Administration ASSESSMENT/PLAN 62 year-old female with a PMH significant for HTN, CAD, diastolic heart failure , COPD on home O2, IDDM, SLE, migraines, seizure disorder, depression, DANY on CPAP, s/p gastric banding 11/2016. Admitted for COPD exacerbation. COPD exacerbation --continue solumedrol 40mg q8h --duonebs, inhalers, Singulair --Levofloxacin PO (day #2) --empiric Tamiflu --pulmonary following --will need pre post Coronary artery disease --08/2016 [facility] Brodie: mild luminal irregularities LCX Syncope --troponin neg x 1 --ECG not suggestive of acute ischemic event --CTA negative PE, negative aneurysm --US carotids, echo pending Hypertension --BP stable --continue losartan, lasix Hyperlipidemia --continue Lipitor Hypothyroidism --continue levothyroxine SLE --continue Plaquenil, mirapex --methotrexate every Tuesday Seizure disorder --continue Tegretol Migraines --continue Topamax Depression --continue Topamax, seroquel IDDM --Levemir 22U qhs --Novolog sliding scale coverage IDDM --continued Levemir --Novolog sliding scale coverage DANY --CPAP overnight FEN Fluids: PO intake adequate Electrolytes: replete as indicated Nutrition: low sodium, diabetic DVT prophylaxis: lovenox, oob, ambulation Dispo: continues to require inpatient care. Full code. Visit type - Emergency Visit Emergency Visit: Yes ED Registration Date: 03/31/17 Care time: The patient presented to the Emergency Department on the above date and was hospitalized for further evaluation of their emergent condition. - New Patient This patient is new to me today: Yes Date on this admission: 04/02/17 - Critical Care Critical Care patient: No
[2017-04-02 07:59] LABS: ANION GAP 11 (8-16); BLOOD UREA NITROGEN 21 mg/dL (7-18); CHLORIDE 107 mmol/L (98-107); CO2 24 mmol/L (21-32); GLUCOSE,RANDOM 235 mg/dL (74-106); POTASSIUM 4.4 mmol/L (3.5-5.1); SODIUM 142 mmol/L (136-145)
[2017-04-02 08:02] LABS: CREATININE 0.9 mg/dL (0.55-1.02)
[2017-04-02] MEDS: ALBUTEROL SO4 2.5/IPRATROPIUM 0.5 INH SOL 3 ML VIAL.NEB. NEB SCH ×4 (08:21→20:16)
[2017-04-02] MEDS: PANTOPRAZOLE 40 MG TABLET (FP) PO SCH (09:46)
[2017-04-02] MEDS: LOSARTAN POTASSIUM 50 MG TABLET (FP) PO SCH (09:46)
[2017-04-02] MEDS: FUROSEMIDE 40 MG TABLET (FP) PO SCH (09:47)
[2017-04-02] MEDS: OSELTAMIVIR PHOSPHATE 75 MG CAPSULE PO SCH ×2 (09:49→21:42)
[2017-04-02] MEDS ORDERED: TIOTROPIUM BROMIDE 18 MCG/INH (DEVICE W/ 5 CAPSULES) IH SCH ×2 (10:00)
[2017-04-02] MEDS: ENOXAPARIN NA (PORCINE) 40 MG/0.4 ML DISP.SYRIN SQ SCH (11:15)
[2017-04-02] MEDS: ACETAMINOPHEN 325 MG TABLET (FP) PO PRN ×2 (16:52→21:44)
[2017-04-02] MEDS ORDERED: PT OWN MED DRAWER 7, Y5N ONE (21:40)
[2017-04-02] MEDS: SERTRALINE HCL 50 MG TABLET (FP) PO SCH (21:43)
[2017-04-02] MEDS ORDERED: PATIENT'S OWN MEDICATION (NON-FORMULARY) (Carbamazepine [Carbamazepine Er] 300 MG) PO SCH (22:00)
[2017-04-02] MEDS ORDERED: SODIUM CHLORIDE NASAL SPRAY 44 ML BOTTLE NS PRN (22:52)
[2017-04-03] MEDS: methylPREDNISolone NA SUCC 40 MG/1 ML VIAL IVPUSH SCH ×4 (01:05→22:34)
[2017-04-03] MEDS: INSULIN SLIDING SCALE (NOVOLOG) 1 VIAL SQ SCH ×4 (06:37→21:58)
[2017-04-03] MEDS: LEVOTHYROXINE NA 50 MCG TABLET (FP) PO SCH (06:38)
[2017-04-03] MEDS: ALBUTEROL SO4 2.5/IPRATROPIUM 0.5 INH SOL 3 ML VIAL.NEB. NEB SCH ×4 (07:34→20:25)
[2017-04-03 07:52] LABS: BASO % 0.6 % (0-2.0); LYMPH % 20.6 % (8-40); MCH 29.8 pg (25.7-33.7); MCHC 32.3 g/dl (32.0-36.0); MEAN CELL VOLUME 92.2 fl (80-96); MEAN PLT VOLUME 8.3 fl (7.5-11.1); MONO % 3.6 % (3.8-10.2); NEUT % 75.2 % (42.8-82.8); PLATELET COUNT 334 K/MM3 (134-434); RBC 3.68 M/mm3 (3.60-5.2); RDW 16.8 % (11.6-15.6)
[2017-04-03 08:23] LABS: ALBUMIN 3.1 g/dl (3.4-5.0); ALK PHOS 100 U/L (45-117); ANION GAP 10 (8-16); BILIRUBIN,TOTAL 0.1 mg/dL (0.2-1.0); BLOOD UREA NITROGEN 19 mg/dL (7-18); CALCIUM 9.1 mg/dL (8.5-10.1); CHLORIDE 105 mmol/L (98-107); CO2 27 mmol/L (21-32); CREATININE 0.9 mg/dL (0.55-1.02); GLUCOSE,RANDOM 224 mg/dL (74-106); MAGNESIUM 2.2 mg/dL (1.8-2.4); POTASSIUM 4.3 mmol/L (3.5-5.1); SGOT/AST 13 U/L (15-37); SGPT/ALT 22 U/L (12-78); SODIUM 142 mmol/L (136-145)
[2017-04-03] MEDS: LOSARTAN POTASSIUM 50 MG TABLET (FP) PO SCH (09:44)
[2017-04-03] MEDS: ENOXAPARIN NA (PORCINE) 40 MG/0.4 ML DISP.SYRIN SQ SCH (09:44)
[2017-04-03] MEDS: PRAMIPEXOLE DIHYDROCHLORIDE 0.5 MG TABLET PO SCH ×2 (09:44→21:49)
[2017-04-03] MEDS: PANTOPRAZOLE 40 MG TABLET (FP) PO SCH (09:44)
[2017-04-03] MEDS: TOPIRAMATE 100 MG TABLET PO SCH ×2 (09:46→21:55)
[2017-04-03] MEDS: HYDROXYCHLOROQUINE SO4 200 MG TABLET (FP) PO SCH ×2 (09:46→21:49)
[2017-04-03] MEDS: OSELTAMIVIR PHOSPHATE 75 MG CAPSULE PO SCH ×2 (09:46→21:49)
[2017-04-03] MEDS: FUROSEMIDE 40 MG TABLET (FP) PO SCH (09:46)
[2017-04-03] MEDS: BUDESONIDE/FORMETEROL FUMARATE 160/4.5 mcg INHALER IH SCH ×2 (09:51→21:48)
--- NOTE | 2017-04-03 11:27 | PN ---
Physical Exam: SUBJECTIVE: Patient seen and examined. Feeling better but cough remains. OBJECTIVE: Vital Signs Period Temp Pulse Resp BP Sys/Oconnell Pulse Ox Last 24 Hr 97.6 F-98.4 F 55-78 18-21 109-160/58-69 GENERAL: The patient is awake, alert, and fully oriented, in no acute distress. LUNGS: CTA HEART: Regular rate and rhythm, S1, S2 ABDOMEN: Soft, nontender, nondistended, normoactive bowel sounds, no guarding, no rebound EXTREMITIES: 2+ pulses, warm, well-perfused, no edema. NEUROLOGICAL: Cranial nerves II through XII grossly intact. Normal speech SKIN: Warm, dry, normal turgor Laboratory Results - last 24 hr 04/02/17 04/02/17 04/02/17 11:16 16:54 20:17 WBC RBC Hgb Hct MCV MCH MCHC RDW Plt Count MPV Neutrophils % Lymphocytes % Monocytes % Eosinophils % Basophils % Sodium Potassium Chloride Carbon Dioxide Anion Gap BUN Creatinine Creat Clearance w eGFR POC Glucometer 243 217 237 Random Glucose Calcium Magnesium Total Bilirubin AST ALT Alkaline Phosphatase Total Protein Albumin 04/03/17 04/03/17 04/03/17 05:21 06:20 06:20 WBC 7.0 RBC 3.68 Hgb 11.0 Hct 34.0 MCV 92.2 MCH 29.8 MCHC 32.3 RDW 16.8 H Plt Count 334 MPV 8.3 Neutrophils % 75.2 Lymphocytes % 20.6 D Monocytes % 3.6 L Eosinophils % 0.0 Basophils % 0.6 Sodium 142 Potassium 4.3 Chloride 105 Carbon Dioxide 27 Anion Gap 10 BUN 19 H Creatinine 0.9 Creat Clearance w eGFR > 60 POC Glucometer 259 Random Glucose 224 H Calcium 9.1 Magnesium 2.2 Total Bilirubin 0.1 L D AST 13 L ALT 22 Alkaline Phosphatase 100 Total Protein 7.0 Albumin 3.1 L Active Medications Generic Name Dose Route Start Last Admin Trade Name Freq PRN Reason Stop Dose Admin Acetaminophen 650 mg 03/31/17 18:46 04/02/17 21:44 Tylenol - PO 650 mg Q4H PRN Administration PAIN LEVEL 4 - 6 Albuterol/Ipratropium 1 amp 03/31/17 20:00 04/03/17 07:34 Duoneb - NEB 1 amp RQID DONTA Administration Atorvastatin Calcium 10 mg 04/01/17 22:00 04/02/17 21:41 Lipitor - PO 10 mg HS DONTA Administration Budesonide/Formoterol Fumarate 2 puff 04/01/17 22:00 04/03/17 09:51 Symbicort 160/4.5mcg - IH 2 puff BID DONTA Administration Carbamazepine 300 mg 04/02/17 22:00 04/03/17 09:45 Tegretol Xr - PO 300 mg BID DONTA Administration Enoxaparin Sodium 40 mg 04/01/17 10:00 04/03/17 09:44 Lovenox - SQ 40 mg DAILY DONTA Administration Furosemide 40 mg 04/01/17 15:00 04/03/17 09:46 Lasix - PO 40 mg DAILY DONTA Administration Hydroxychloroquine Sulfate 200 mg 04/01/17 22:00 04/03/17 09:46 Plaquenil - PO 200 mg BID DONTA Administration Insulin Aspart 1 vial 04/01/17 16:30 04/03/17 11:22 Novolog Vial Sliding Scale - SQ 4 unit ACHS [facility] Administration Protocol Insulin Detemir 22 units 04/01/17 22:00 04/02/17 21:44 Levemir Vial SQ 22 unit HS DONTA Administration Levofloxacin 500 mg 04/01/17 15:15 04/03/17 09:44 Levaquin - PO 04/03/17 15:14 500 mg DAILY DONTA Administration Levothyroxine Sodium 50 mcg 04/02/17 07:00 04/03/17 06:38 Synthroid - PO 50 mcg DAILY@0700 DONTA Administration Losartan Potassium 50 mg 04/01/17 15:00 04/03/17 09:44 Cozaar - PO 50 mg DAILY DONTA Administration Methylprednisolone Sodium Succinate 40 mg 04/01/17 02:00 04/03/17 09:44 Solu-Medrol - IVPUSH 40 mg Q8H-IV DONTA Administration Montelukast Sodium 10 mg 04/01/17 22:00 04/02/17 21:42 Singulair - PO 10 mg HS DONTA Administration Oseltamivir Phosphate 75 mg 03/31/17 22:00 04/03/17 09:46 Tamiflu - PO 04/05/17 21:59 75 mg BID DONTA Administration Pantoprazole Sodium 40 mg 04/01/17 10:00 04/03/17 09:44 Protonix - PO 40 mg DAILY DONTA Administration Pramipexole Dihydrochloride 0.5 mg 04/01/17 22:00 04/03/17 09:44 Mirapex - PO 0.5 mg BID DONTA Administration Sertraline HCl 100 mg 04/02/17 22:00 04/02/17 21:43 Zoloft - PO 100 mg HS DONTA Administration Sodium Chloride 2 spray 04/02/17 22:52 04/02/17 23:00 [place] Nasal [place] - NS 2 spray BID PRN Administration NASAL CONGESTION Topiramate 100 mg 04/01/17 22:00 04/03/17 09:46 Topamax - PO 100 mg BID DONTA Administration ASSESSMENT/PLAN 62 year-old female with a PMH significant for HTN, CAD, diastolic heart failure , COPD on home O2, IDDM, SLE, migraines, seizure disorder, depression, DANY on CPAP, s/p gastric banding 11/2016. Admitted for COPD exacerbation and syncope. COPD exacerbation --tapering solumedrol 40mg q12h --duonebs, inhalers, Singulair --Levofloxacin PO (day #3) --empiric Tamiflu --pulmonary following --will need pre post Coronary artery disease --08/2016 [facility] Brodie: mild luminal irregularities LCX Syncope --troponin neg x 1 --ECG not suggestive of acute ischemic event --CTA negative PE, negative aneurysm --US carotids unremarkable --Echo pending Hypertension --BP stable --continue losartan, lasix Hyperlipidemia --continue Lipitor Hypothyroidism --continue levothyroxine SLE --continue Plaquenil, mirapex --methotrexate every Tuesday Seizure disorder --continue Tegretol Migraines --continue Topamax Depression --continue Topamax, seroquel IDDM --Levemir 22U qhs --Novolog sliding scale coverage IDDM --continued Levemir --Novolog sliding scale coverage DANY --CPAP overnight FEN Fluids: PO intake adequate Electrolytes: replete as indicated Nutrition: low sodium, diabetic DVT prophylaxis: lovenox, oob, ambulation Dispo: continues to require inpatient care. Full code. Visit type - Emergency Visit Emergency Visit: Yes ED Registration Date: 03/31/17 Care time: The patient presented to the Emergency Department on the above date and was hospitalized for further evaluation of their emergent condition. - New Patient This patient is new to me today: No - Critical Care Critical Care patient: No
--- NOTE | 2017-04-03 12:53 | PN ---
Progress Note (short form) - Note Progress Note: OOB to chair on [place] O2. Reports breathing is better, but not at her baseline. No CP. Used her own CPAP overnight with no issue. Intake & Output 03/31/17 04/01/17 04/02/17 04/03/17 23:59 23:59 23:59 23:59 Intake Total 1100 500 Output Total 300 2450 1600 Balance 800 -1950 -1600 Weight 240 lb 249 lb 11.2 oz Last Vital Signs Temp Pulse Resp BP Pulse Ox 98.4 F 68 20 136/68 98 04/03/17 10:00 04/03/17 10:00 04/03/17 10:00 04/03/17 10:00 04/02/17 00:00 Active Medications Acetaminophen (Tylenol -) 650 mg PO Q4H PRN PRN Reason: PAIN LEVEL 4 - 6 Last Admin: 04/02/17 21:44 Dose: 650 mg Albuterol/Ipratropium (Duoneb -) 1 amp NEB RQID [facility] Last Admin: 04/03/17 11:40 Dose: 1 amp Atorvastatin Calcium (Lipitor -) 10 mg PO HS [facility] Last Admin: 04/02/17 21:41 Dose: 10 mg Budesonide/Formoterol Fumarate (Symbicort 160/4.5mcg -) 2 puff IH BID [facility] Last Admin: 04/03/17 09:51 Dose: 2 puff Carbamazepine (Tegretol Xr -) 300 mg PO BID [facility] Last Admin: 04/03/17 09:45 Dose: 300 mg Enoxaparin Sodium (Lovenox -) 40 mg SQ DAILY [facility] Last Admin: 04/03/17 09:44 Dose: 40 mg Furosemide (Lasix -) 40 mg PO DAILY [facility] Last Admin: 04/03/17 09:46 Dose: 40 mg Hydroxychloroquine Sulfate (Plaquenil -) 200 mg PO BID [facility] Last Admin: 04/03/17 09:46 Dose: 200 mg Insulin Aspart (Novolog Vial Sliding Scale -) 1 vial SQ ACHS [facility] PRN Reason: Protocol Last Admin: 04/03/17 11:22 Dose: 4 unit Insulin Detemir (Levemir Vial) 22 units SQ HS [facility] Last Admin: 04/02/17 21:44 Dose: 22 unit Levofloxacin (Levaquin -) 500 mg PO DAILY [facility] Stop: 04/03/17 15:14 Last Admin: 04/03/17 09:44 Dose: 500 mg Levothyroxine Sodium (Synthroid -) 50 mcg PO DAILY@0700 [facility] Last Admin: 04/03/17 06:38 Dose: 50 mcg Losartan Potassium (Cozaar -) 50 mg PO DAILY [facility] Last Admin: 04/03/17 09:44 Dose: 50 mg Methylprednisolone Sodium Succinate (Solu-Medrol -) 40 mg IVPUSH Q12H [facility] Last Admin: 04/03/17 12:49 Dose: Not Given Montelukast Sodium (Singulair -) 10 mg PO HS [facility] Last Admin: 04/02/17 21:42 Dose: 10 mg Oseltamivir Phosphate (Tamiflu -) 75 mg PO BID [facility] Stop: 04/05/17 21:59 Last Admin: 04/03/17 09:46 Dose: 75 mg Pantoprazole Sodium (Protonix -) 40 mg PO DAILY [facility] Last Admin: 04/03/17 09:44 Dose: 40 mg Pramipexole Dihydrochloride (Mirapex -) 0.5 mg PO BID [facility] Last Admin: 04/03/17 09:44 Dose: 0.5 mg Sertraline HCl (Zoloft -) 100 mg PO [facility] Last Admin: 04/02/17 21:43 Dose: 100 mg Sodium Chloride ([place] Nasal [place] -) 2 spray NS BID PRN PRN Reason: NASAL CONGESTION Last Admin: 04/02/17 23:00 Dose: 2 spray Topiramate (Topamax -) 100 mg PO BID [facility] Last Admin: 04/03/17 09:46 Dose: 100 mg Constitutional: Yes: Awake and alert, NAD Eyes: Yes: EOM Intact HENT: Yes: Normocephalic Neck: Yes: Trachea Midline Cardiovascular: Yes: Regular Rate and Rhythm Respiratory: Yes: Diminished at the bases, few scattered rhonchi, no wheeze Gastrointestinal: Yes: Normal Bowel Sounds, Soft Edema: No Neurological: Yes: Alert Labs: Laboratory Results - last 24 hr 04/02/17 04/02/17 04/03/17 16:54 20:17 05:21 WBC RBC Hgb Hct MCV MCH MCHC RDW Plt Count MPV Neutrophils % Lymphocytes % Monocytes % Eosinophils % Basophils % Sodium Potassium Chloride Carbon Dioxide Anion Gap BUN Creatinine Creat Clearance w eGFR POC Glucometer 217 237 259 Random Glucose Calcium Magnesium Total Bilirubin AST ALT Alkaline Phosphatase Total Protein Albumin 04/03/17 04/03/17 04/03/17 06:20 06:20 10:55 WBC 7.0 RBC 3.68 Hgb 11.0 Hct 34.0 MCV 92.2 MCH 29.8 MCHC 32.3 RDW 16.8 H Plt Count 334 MPV 8.3 Neutrophils % 75.2 Lymphocytes % 20.6 D Monocytes % 3.6 L Eosinophils % 0.0 Basophils % 0.6 Sodium 142 Potassium 4.3 Chloride 105 Carbon Dioxide 27 Anion Gap 10 BUN 19 H Creatinine 0.9 Creat Clearance w eGFR > 60 POC Glucometer 206 Random Glucose 224 H Calcium 9.1 Magnesium 2.2 Total Bilirubin 0.1 L D AST 13 L ALT 22 Alkaline Phosphatase 100 Total Protein 7.0 Albumin 3.1 L Assessment/Plan ACUTE EXACERBATION COPD ELEVATION OF LEFT HEMIDIAPHRAGM PE RULED OUT BY CTA ACUTE BRONCHITIS RECENT BARIATRIC SURG OSAS ON CPAP IV MEDROL BRONCHODILATORS WILL D/C ABX FOR NOW NOTED TAMIFLU CPAP QHS O2 NEEDED TO MAINTAIN SATURATION SINGULAIR SYMBICORT CARDIAC WORKUP ONGOING : IF REMAINS STABLE IN AM: THERE IS NO PULMONARY CONTRAINDICATION IF CARDIAC CATH IS ANTICIPATED DR DRAKE
[2017-04-03] MEDS ORDERED: PT OWN MED DRAWER 7, Y5N ONE (21:39)
[2017-04-03] MEDS: MONTELUKAST NA 10 MG TABLET PO SCH (21:48)
[2017-04-03] MEDS: ATORVASTATIN CA 10 MG TABLET (FP) PO SCH (21:49)
[2017-04-03] MEDS: SERTRALINE HCL 50 MG TABLET (FP) PO SCH (21:49)
[2017-04-03] MEDS: ACETAMINOPHEN 325 MG TABLET (FP) PO PRN (21:51)
[2017-04-03] MEDS: INSULIN DETEMIR 100 UNITS/ML MDV SQ SCH (21:58)
[2017-04-04] MEDS: INSULIN SLIDING SCALE (NOVOLOG) 1 VIAL SQ SCH ×4 (06:31→23:17)
[2017-04-04] MEDS: LEVOTHYROXINE NA 50 MCG TABLET (FP) PO SCH (06:32)
[2017-04-04] MEDS ORDERED: INSULIN (NOVOLOG) ASPART 100 UNITS/ML 10ML VIAL ONE (06:40)
[2017-04-04] MEDS: ALBUTEROL SO4 2.5/IPRATROPIUM 0.5 INH SOL 3 ML VIAL.NEB. NEB SCH ×4 (07:40→19:48)
--- NOTE | 2017-04-04 08:14 | DS ---
Physical Exam: SUBJECTIVE: Patient seen and examined OBJECTIVE: Vital Signs Period Temp Pulse Resp BP Sys/Oconnell Pulse Ox Last 24 Hr 97.8 F-98.4 F 62-72 18-20 109-147/59-77 PHYSICAL EXAM GENERAL: The patient is awake, alert, and fully oriented, in no acute distress. HEAD: Normal with no signs of trauma. EYES: PERRL, extraocular movements intact, sclera anicteric, conjunctiva clear. ENT: Ears normal, nares patent, oropharynx clear without exudates, moist mucous membranes. NECK: Trachea midline, full range of motion, supple. LUNGS: Breath sounds equal, clear to auscultation bilaterally, no wheezes, no crackles, no accessory muscle use. HEART: Regular rate and rhythm, S1, S2 without murmur, rub or gallop. ABDOMEN: Soft, nontender, nondistended, normoactive bowel sounds, no guarding, no rebound, no hepatosplenomegaly, no masses. EXTREMITIES: 2+ pulses, warm, well-perfused, no edema. NEUROLOGICAL: Cranial nerves II through XII grossly intact. Normal speech, gait not observed. PSYCH: Normal mood, normal affect. SKIN: Warm, dry, normal turgor, no rashes or lesions noted. LABS Laboratory Results - last 24 hr 04/03/17 04/03/17 04/03/17 06:20 06:20 10:55 WBC 7.0 RBC 3.68 Hgb 11.0 Hct 34.0 MCV 92.2 MCH 29.8 MCHC 32.3 RDW 16.8 H Plt Count 334 MPV 8.3 Neutrophils % 75.2 Lymphocytes % 20.6 D Monocytes % 3.6 L Eosinophils % 0.0 Basophils % 0.6 Sodium 142 Potassium 4.3 Chloride 105 Carbon Dioxide 27 Anion Gap 10 BUN 19 H Creatinine 0.9 Creat Clearance w eGFR > 60 POC Glucometer 206 Random Glucose 224 H Calcium 9.1 Magnesium 2.2 Total Bilirubin 0.1 L D AST 13 L ALT 22 Alkaline Phosphatase 100 Total Protein 7.0 Albumin 3.1 L 04/03/17 04/03/17 04/04/17 16:43 21:57 06:31 WBC RBC Hgb Hct MCV MCH MCHC RDW Plt Count MPV Neutrophils % Lymphocytes % Monocytes % Eosinophils % Basophils % Sodium Potassium Chloride Carbon Dioxide Anion Gap BUN Creatinine Creat Clearance w eGFR POC Glucometer 232 149 227 Random Glucose Calcium Magnesium Total Bilirubin AST ALT Alkaline Phosphatase Total Protein Albumin HOSPITAL COURSE: Date of Admission:03/31/17 Date of Discharge: 04/04/17 Discharge Summary Reason For Visit: CHRONIC OBSTRUCTIVE PULMONARY DISEASE WITH ACUTE E Current Active Problems Acute exacerbation of chronic obstructive pulmonary disease (COPD) (Acute) Chest pain (Acute) Influenza-like illness (Acute) Syncope and collapse (Acute) Condition: Fair - Instructions Referrals: Goran Hernandez MD [Primary Care Provider] - - Home Medications Comprehensive Discharge Medication List: Ambulatory Orders Albuterol Sulfate [Proair Hfa] 1 puff IH Q4H PRN 03/31/17 Atorvastatin Ca [Lipitor] 10 mg PO HS 03/31/17 Biotin 5,000 mcg PO DAILY 03/31/17 Budesonide/Formeterol Fumarate [SYMBICORT 160/4.5mcg -] 2 inh PO BID 03/31/17 Carbamazepine [Carbamazepine ER] 300 mg PO BID 03/31/17 Exenatide [Byetta] 10 mcg SQ BID 03/31/17 Furosemide [Lasix -] 40 mg PO DAILY 03/31/17 Glipizide [Glipizide Xl] 10 mg PO BID 03/31/17 Hydroxychloroquine So4 [Plaquenil -] 200 mg PO BID 03/31/17 Insulin (LOG) Aspart [NovoLOG -] 6 unit SQ DAILY 03/31/17 Insulin (LOG) Aspart [NovoLOG -] 10 units SQ ASDIR 03/31/17 Insulin Glargine,Hum.rec.anlog [Lantus] 22 unit SQ AM 03/31/17 Levothyroxine [Synthroid -] 50 mcg PO ASDIR 03/31/17 Levothyroxine [Synthroid -] 50 mcg PO ASDIR 03/31/17 Losartan Potassium 50 mg PO DAILY 03/31/17 Metformin HCl 500 mg PO BID 03/31/17 Methotrexate [Mexate -] 62.5 mg PO Q7D 03/31/17 Montelukast Na [Singulair -] 10 mg PO HS 03/31/17 [place]-3 Fatty Acids [[place]-3] 1,000 mg PO DAILY 03/31/17 Pramipexole Dihydrochloride [Mirapex -] 0.5 mg PO BID 03/31/17 Sertraline HCl 100 mg PO HS 03/31/17 Tiotropium [place] [Spiriva] 1 inh PO DAILY 03/31/17 Topiramate 100 mg PO BID 03/31/17
--- NOTE | 2017-04-04 08:14 | PN ---
Physical Exam: SUBJECTIVE: Patient seen and examined OBJECTIVE: Vital Signs Period Temp Pulse Resp BP Sys/Oconnell Pulse Ox Last 24 Hr 97.8 F-98.4 F 62-72 18-20 109-147/59-77 GENERAL: The patient is awake, alert, and fully oriented, in no acute distress. LUNGS: CTA HEART: Regular rate and rhythm, S1, S2 ABDOMEN: Soft, nontender, nondistended, normoactive bowel sounds, no guarding, no rebound EXTREMITIES: 2+ pulses, warm, well-perfused, no edema. NEUROLOGICAL: Cranial nerves II through XII grossly intact. Normal speech SKIN: Warm, dry, normal turgor Laboratory Results - last 24 hr 04/03/17 04/03/17 04/03/17 06:20 06:20 10:55 WBC 7.0 RBC 3.68 Hgb 11.0 Hct 34.0 MCV 92.2 MCH 29.8 MCHC 32.3 RDW 16.8 H Plt Count 334 MPV 8.3 Neutrophils % 75.2 Lymphocytes % 20.6 D Monocytes % 3.6 L Eosinophils % 0.0 Basophils % 0.6 Sodium 142 Potassium 4.3 Chloride 105 Carbon Dioxide 27 Anion Gap 10 BUN 19 H Creatinine 0.9 Creat Clearance w eGFR > 60 POC Glucometer 206 Random Glucose 224 H Calcium 9.1 Magnesium 2.2 Total Bilirubin 0.1 L D AST 13 L ALT 22 Alkaline Phosphatase 100 Total Protein 7.0 Albumin 3.1 L 04/03/17 04/03/17 04/04/17 16:43 21:57 06:31 WBC RBC Hgb Hct MCV MCH MCHC RDW Plt Count MPV Neutrophils % Lymphocytes % Monocytes % Eosinophils % Basophils % Sodium Potassium Chloride Carbon Dioxide Anion Gap BUN Creatinine Creat Clearance w eGFR POC Glucometer 232 149 227 Random Glucose Calcium Magnesium Total Bilirubin AST ALT Alkaline Phosphatase Total Protein Albumin Active Medications Generic Name Dose Route Start Last Admin Trade Name Freq PRN Reason Stop Dose Admin Acetaminophen 650 mg 03/31/17 18:46 04/03/17 21:51 Tylenol - PO 650 mg Q4H PRN Administration PAIN LEVEL 4 - 6 Albuterol/Ipratropium 1 amp 03/31/17 20:00 04/04/17 07:40 Duoneb - NEB 1 amp RQID DONTA Administration Atorvastatin Calcium 10 mg 04/01/17 22:00 04/03/17 21:49 Lipitor - PO 10 mg HS DONTA Administration Budesonide/Formoterol Fumarate 2 puff 04/01/17 22:00 04/03/17 21:48 Symbicort 160/4.5mcg - IH 2 puff BID DONTA Administration Carbamazepine 300 mg 04/02/17 22:00 04/03/17 21:55 Tegretol Xr - PO 300 mg BID DONTA Administration Enoxaparin Sodium 40 mg 04/01/17 10:00 04/03/17 09:44 Lovenox - SQ 40 mg DAILY DONTA Administration Furosemide 40 mg 04/01/17 15:00 04/03/17 09:46 Lasix - PO 40 mg DAILY DONTA Administration Hydroxychloroquine Sulfate 200 mg 04/01/17 22:00 04/03/17 21:49 Plaquenil - PO 200 mg BID DONTA Administration Insulin Aspart 1 vial 04/01/17 16:30 04/04/17 06:31 Novolog Vial Sliding Scale - SQ 4 unit ACHS DONTA Administration Protocol Insulin Detemir 22 units 04/01/17 22:00 04/03/17 21:58 Levemir Vial SQ 22 unit HS DONTA Administration Levothyroxine Sodium 50 mcg 04/02/17 07:00 04/04/17 06:32 Synthroid - PO 50 mcg DAILY@0700 DONTA Administration Losartan Potassium 50 mg 04/01/17 15:00 04/03/17 09:44 Cozaar - PO 50 mg DAILY DONTA Administration Methylprednisolone Sodium Succinate 40 mg 04/03/17 11:30 04/03/17 22:34 Solu-Medrol - IVPUSH 40 mg Q12H DONTA Administration Montelukast Sodium 10 mg 04/01/17 22:00 04/03/17 21:48 Singulair - PO 10 mg HS DONTA Administration Oseltamivir Phosphate 75 mg 03/31/17 22:00 04/03/17 21:49 Tamiflu - PO 04/05/17 21:59 75 mg BID DONTA Administration Pantoprazole Sodium 40 mg 04/01/17 10:00 04/03/17 09:44 Protonix - PO 40 mg DAILY DONTA Administration Pramipexole Dihydrochloride 0.5 mg 04/01/17 22:00 04/03/17 21:49 Mirapex - PO 0.5 mg BID DONTA Administration Sertraline HCl 100 mg 04/02/17 22:00 04/03/17 21:49 Zoloft - PO 100 mg HS DONTA Administration Sodium Chloride 2 spray 04/02/17 22:52 04/02/17 23:00 [place] Nasal [place] - NS 2 spray BID PRN Administration NASAL CONGESTION Topiramate 100 mg 04/01/17 22:00 04/03/17 21:55 Topamax - PO 100 mg BID DONTA Administration ASSESSMENT/PLAN 62 year-old female with a PMH significant for HTN, CAD, diastolic heart failure , COPD on home O2, IDDM, SLE, migraines, seizure disorder, depression, DANY on CPAP, s/p gastric banding 11/2016. Admitted for COPD exacerbation and syncope. COPD exacerbation --switch to PO prednisone 60mg, continue taper --duonebs, inhalers, Singulair --Levofloxacin PO (day #4) --empiric Tamiflu (last dose 04/05 evening) --pulmonary following --pre post Coronary artery disease --08/2016 [facility] Brodie: mild luminal irregularities LCX Syncope --troponin neg x 1 --ECG not suggestive of acute ischemic event --CTA negative PE, negative aneurysm --US carotids unremarkable --Echo still pending Hypertension --BP stable --continue losartan, lasix Hyperlipidemia --continue Lipitor Hypothyroidism --continue levothyroxine SLE --continue Plaquenil, mirapex --methotrexate every Tuesday Seizure disorder --continue Tegretol Migraines --continue Topamax Depression --continue Topamax, seroquel IDDM --Levemir 22U qhs --Novolog sliding scale coverage IDDM --continued Levemir --Novolog sliding scale coverage DANY --CPAP overnight FEN Fluids: PO intake adequate Electrolytes: replete as indicated Nutrition: low sodium, diabetic DVT prophylaxis: lovenox, oob, ambulation Dispo: continues to require inpatient care. Full code. Visit type - Emergency Visit Emergency Visit: Yes ED Registration Date: 03/31/17 Care time: The patient presented to the Emergency Department on the above date and was hospitalized for further evaluation of their emergent condition. - New Patient This patient is new to me today: No - Critical Care Critical Care patient: No
[2017-04-04] MEDS ORDERED: PT OWN MED DRAWER 7, Y5N ONE ×3 (10:07→23:07)
[2017-04-04] MEDS: ENOXAPARIN NA (PORCINE) 40 MG/0.4 ML DISP.SYRIN SQ SCH (10:14)
[2017-04-04] MEDS: PRAMIPEXOLE DIHYDROCHLORIDE 0.5 MG TABLET PO SCH ×2 (10:15→23:17)
[2017-04-04] MEDS: FUROSEMIDE 40 MG TABLET (FP) PO SCH (10:15)
[2017-04-04] MEDS: BUDESONIDE/FORMETEROL FUMARATE 160/4.5 mcg INHALER IH SCH ×2 (10:15→23:18)
[2017-04-04] MEDS: HYDROXYCHLOROQUINE SO4 200 MG TABLET (FP) PO SCH ×2 (10:15→23:17)
[2017-04-04] MEDS: TOPIRAMATE 100 MG TABLET PO SCH ×2 (10:15→23:17)
[2017-04-04] MEDS: PANTOPRAZOLE 40 MG TABLET (FP) PO SCH (10:15)
[2017-04-04] MEDS: OSELTAMIVIR PHOSPHATE 75 MG CAPSULE PO SCH ×2 (10:15→23:17)
[2017-04-04] MEDS: LOSARTAN POTASSIUM 50 MG TABLET (FP) PO SCH (10:29)
[2017-04-04] MEDS: methylPREDNISolone NA SUCC 40 MG/1 ML VIAL IVPUSH SCH (11:22)
--- NOTE | 2017-04-04 12:01 | PN ---
Progress Note, Physician History of Present Illness: pulmonary alert,feeling better,less dyspneic - Current Medication List Current Medications: Active Medications Acetaminophen (Tylenol -) 650 mg PO Q4H PRN PRN Reason: PAIN LEVEL 4 - 6 Last Admin: 04/03/17 21:51 Dose: 650 mg Albuterol/Ipratropium (Duoneb -) 1 amp NEB RQID [facility] Last Admin: 04/04/17 07:40 Dose: 1 amp Atorvastatin Calcium (Lipitor -) 10 mg PO HS [facility] Last Admin: 04/03/17 21:49 Dose: 10 mg Budesonide/Formoterol Fumarate (Symbicort 160/4.5mcg -) 2 puff IH BID [facility] Last Admin: 04/04/17 10:15 Dose: 2 puff Carbamazepine (Tegretol Xr -) 300 mg PO BID [facility] Last Admin: 04/04/17 10:16 Dose: 300 mg Enoxaparin Sodium (Lovenox -) 40 mg SQ DAILY [facility] Last Admin: 04/04/17 10:14 Dose: 40 mg Furosemide (Lasix -) 40 mg PO DAILY [facility] Last Admin: 04/04/17 10:15 Dose: 40 mg Hydroxychloroquine Sulfate (Plaquenil -) 200 mg PO BID [facility] Last Admin: 04/04/17 10:15 Dose: 200 mg Insulin Aspart (Novolog Vial Sliding Scale -) 1 vial SQ [facility] PRN Reason: Protocol Last Admin: 04/04/17 11:22 Dose: 4 unit Insulin Detemir (Levemir Vial) 22 units SQ [facility] Last Admin: 04/03/17 21:58 Dose: 22 unit Levothyroxine Sodium (Synthroid -) 50 mcg PO DAILY@0700 [facility] Last Admin: 04/04/17 06:32 Dose: 50 mcg Losartan Potassium (Cozaar -) 50 mg PO DAILY [facility] Last Admin: 04/04/17 10:29 Dose: 50 mg Methylprednisolone Sodium Succinate (Solu-Medrol -) 40 mg IVPUSH Q12H [facility] Last Admin: 04/04/17 11:22 Dose: 40 mg Montelukast Sodium (Singulair -) 10 mg PO [facility] Last Admin: 04/03/17 21:48 Dose: 10 mg Oseltamivir Phosphate (Tamiflu -) 75 mg PO BID [facility] Stop: 02/20/18 21:59 Last Admin: 04/04/17 10:15 Dose: 75 mg Pantoprazole Sodium (Protonix -) 40 mg PO DAILY [facility] Last Admin: 04/04/17 10:15 Dose: 40 mg Pramipexole Dihydrochloride (Mirapex -) 0.5 mg PO BID [facility] Last Admin: 04/04/17 10:15 Dose: 0.5 mg Sertraline HCl (Zoloft -) 100 mg PO HS [facility] Last Admin: 04/03/17 21:49 Dose: 100 mg Sodium Chloride ([place] Nasal [place] -) 2 spray NS BID PRN PRN Reason: NASAL CONGESTION Last Admin: 04/02/17 23:00 Dose: 2 spray Topiramate (Topamax -) 100 mg PO BID [facility] Last Admin: 04/04/17 10:15 Dose: 100 mg - Objective Vital Signs: Vital Signs Temperature 97.8 F 04/04/17 06:00 Pulse Rate 64 04/04/17 06:00 Respiratory Rate 20 04/04/17 06:00 Blood Pressure 120/62 04/04/17 06:00 O2 Sat by Pulse Oximetry (%) 98 04/02/17 00:00 Constitutional: Yes: Well Nourished, Calm Eyes: Yes: WNL HENT: Yes: WNL Neck: Yes: WNL Cardiovascular: Yes: Regular Rate and Rhythm, S1, S2 Respiratory: Yes: Diminished Gastrointestinal: Yes: Normal Bowel Sounds, Soft Extremities: Yes: WNL Edema: No Labs: Problem List - Problems (1) Influenza-like illness Code(s): R69 - ILLNESS, UNSPECIFIED (2) Syncope and collapse Code(s): R55 - SYNCOPE AND COLLAPSE (3) COPD (chronic obstructive pulmonary disease) Code(s): J44.9 - CHRONIC OBSTRUCTIVE PULMONARY DISEASE, UNSPECIFIED Qualifiers: COPD type: unspecified COPD Qualified Code(s): J44.9 - Chronic obstructive pulmonary disease, unspecified (4) Morbid (severe) obesity due to excess calories Code(s): E66.01 - MORBID (SEVERE) OBESITY DUE TO EXCESS CALORIES (5) Hypertension Code(s): I10 - ESSENTIAL (PRIMARY) HYPERTENSION Qualifiers: Hypertension type: essential hypertension Qualified Code(s): I10 - Essential (primary) hypertension (6) Hypothyroidism Code(s): E03.9 - HYPOTHYROIDISM, UNSPECIFIED Qualifiers: Hypothyroidism type: unspecified Qualified Code(s): E03.9 - Hypothyroidism , unspecified (7) SLE (systemic lupus erythematosus) Code(s): M32.9 - SYSTEMIC LUPUS ERYTHEMATOSUS, UNSPECIFIED (8) Sleep apnea, obstructive Code(s): G47.33 - OBSTRUCTIVE SLEEP APNEA (ADULT) (PEDIATRIC) Assessment/Plan Assessment/Plan ACUTE EXACERBATION COPD ELEVATION OF LEFT HEMIDIAPHRAGM PE RULED OUT BY CTA ACUTE BRONCHITIS RECENT BARIATRIC SURG OSAS ON CPAP IV MEDROL BRONCHODILATORS TAMIFLU CPAP QHS O2 NEEDED TO MAINTAIN SATURATION SINGULAIR SYMBICORT CARDIAC WORKUP ONGOING : IF REMAINS STABLE IN AM: THERE IS NO PULMONARY CONTRAINDICATION IF CARDIAC CATH IS ANTICIPATED DR DAI
[2017-04-04] MEDS: SERTRALINE HCL 50 MG TABLET (FP) PO SCH (23:16)
[2017-04-04] MEDS: ATORVASTATIN CA 10 MG TABLET (FP) PO SCH (23:16)
[2017-04-04] MEDS: MONTELUKAST NA 10 MG TABLET PO SCH (23:17)
[2017-04-04] MEDS: INSULIN DETEMIR 100 UNITS/ML MDV SQ SCH (23:18)
[2017-04-05] MEDS: LEVOTHYROXINE NA 50 MCG TABLET (FP) PO SCH (06:36)
[2017-04-05] MEDS: INSULIN SLIDING SCALE (NOVOLOG) 1 VIAL SQ SCH ×2 (06:38→11:58)
[2017-04-05] MEDS: ALBUTEROL SO4 2.5/IPRATROPIUM 0.5 INH SOL 3 ML VIAL.NEB. NEB SCH ×2 (08:15→12:41)
[2017-04-05] MEDS ORDERED: PT OWN MED DRAWER 7, Y5N ONE ×3 (09:39→13:34)
[2017-04-05] MEDS: OSELTAMIVIR PHOSPHATE 75 MG CAPSULE PO SCH (09:43)
[2017-04-05] MEDS: TOPIRAMATE 100 MG TABLET PO SCH (09:43)
[2017-04-05] MEDS: HYDROXYCHLOROQUINE SO4 200 MG TABLET (FP) PO SCH (09:43)
[2017-04-05] MEDS: LOSARTAN POTASSIUM 50 MG TABLET (FP) PO SCH (09:44)
[2017-04-05] MEDS: PANTOPRAZOLE 40 MG TABLET (FP) PO SCH (09:44)
[2017-04-05] MEDS: ENOXAPARIN NA (PORCINE) 40 MG/0.4 ML DISP.SYRIN SQ SCH (09:44)
[2017-04-05] MEDS: PRAMIPEXOLE DIHYDROCHLORIDE 0.5 MG TABLET PO SCH (09:44)
[2017-04-05] MEDS: FUROSEMIDE 40 MG TABLET (FP) PO SCH (09:44)
[2017-04-05] MEDS: BUDESONIDE/FORMETEROL FUMARATE 160/4.5 mcg INHALER IH SCH (09:49)
[2017-04-05] MEDS ORDERED: predniSONE 20 MG TABLET (UD) PO SCH (10:00)
--- NOTE | 2017-04-05 11:44 | DS ---
Physical Exam: SUBJECTIVE: Patient seen and examined OBJECTIVE: Vital Signs Period Temp Pulse Resp BP Sys/Oconnell Pulse Ox Last 24 Hr 97.7 F-98.9 F 62-82 20-20 115-131/54-84 94-97 PHYSICAL EXAM GENERAL: The patient is awake, alert, and fully oriented, in no acute distress. HEAD: Normal with no signs of trauma. EYES: PERRL, extraocular movements intact, sclera anicteric, conjunctiva clear. ENT: Ears normal, nares patent, oropharynx clear without exudates, moist mucous membranes. NECK: Trachea midline, full range of motion, supple. LUNGS: Breath sounds equal, clear to auscultation bilaterally, no wheezes, no crackles, no accessory muscle use. HEART: Regular rate and rhythm, S1, S2 without murmur, rub or gallop. ABDOMEN: Soft, nontender, nondistended, normoactive bowel sounds, no guarding, no rebound, no hepatosplenomegaly, no masses. EXTREMITIES: 2+ pulses, warm, well-perfused, no edema. NEUROLOGICAL: Cranial nerves II through XII grossly intact. Normal speech, gait not observed. PSYCH: Normal mood, normal affect. SKIN: Warm, dry, normal turgor, no rashes or lesions noted. LABS Laboratory Results - last 24 hr 04/04/17 04/04/17 04/04/17 11:22 16:20 23:13 POC Glucometer 242 272 226 04/05/17 04/05/17 06:00 11:13 POC Glucometer 161 163 HOSPITAL COURSE: Date of Admission:03/31/17 Date of Discharge: 04/05/17 62 year-old female with a PMH significant for HTN, CAD, diastolic heart failure , COPD on home O2, IDDM, SLE, migraines, seizure disorder, depression, DANY on CPAP, s/p gastric banding 11/2016. Admitted for COPD exacerbation and syncope. COPD exacerbation --switch to PO prednisone 60mg, continue taper --duonebs, inhalers, Singulair --Levofloxacin PO --completed 5 days treatment --empiric Tamiflu (last dose 04/05 evening) --pulmonary following --pre post Coronary artery disease --08/2016 [facility] Brodie: mild luminal irregularities LCX Syncope --troponin neg x 1 --ECG not suggestive of acute ischemic event --CTA negative PE, negative aneurysm --US carotids unremarkable --Echo still pending Hypertension --BP stable --continue losartan, lasix Hyperlipidemia --continue Lipitor Hypothyroidism --continue levothyroxine SLE --continue Plaquenil, mirapex --methotrexate every Tuesday Seizure disorder --continue Tegretol Migraines --continue Topamax Depression --continue Topamax, seroquel IDDM --Levemir 22U qhs --Novolog sliding scale coverage IDDM --continued Levemir --Novolog sliding scale coverage DANY --CPAP overnight FEN Fluids: PO intake adequate Electrolytes: replete as indicated Nutrition: low sodium, diabetic Minutes to complete discharge: 35 Discharge Summary Reason For Visit: CHRONIC OBSTRUCTIVE PULMONARY DISEASE WITH ACUTE E Current Active Problems Acute exacerbation of chronic obstructive pulmonary disease (COPD) (Acute) Chest pain (Acute) Influenza-like illness (Acute) Syncope and collapse (Acute) Condition: Improved - Instructions Referrals: Goran Hernandez MD [Primary Care Provider] - Disposition: HOME - Home Medications Comprehensive Discharge Medication List: Ambulatory Orders Albuterol Sulfate [Proair Hfa] 1 puff IH Q4H PRN 03/31/17 Atorvastatin Ca [Lipitor] 10 mg PO HS 03/31/17 Biotin 5,000 mcg PO DAILY 03/31/17 Budesonide/Formeterol Fumarate [SYMBICORT 160/4.5mcg -] 2 inh PO BID 03/31/17 Carbamazepine [Carbamazepine ER] 300 mg PO BID 03/31/17 Exenatide [Byetta] 10 mcg SQ BID 03/31/17 Furosemide [Lasix -] 40 mg PO DAILY 03/31/17 Glipizide [Glipizide Xl] 10 mg PO BID 03/31/17 Hydroxychloroquine So4 [Plaquenil -] 200 mg PO BID 03/31/17 Insulin (LOG) Aspart [NovoLOG -] 6 unit SQ DAILY 03/31/17 Insulin (LOG) Aspart [NovoLOG -] 10 units SQ ASDIR 03/31/17 Insulin Glargine,Hum.rec.anlog [Lantus] 22 unit SQ AM 03/31/17 Levothyroxine [Synthroid -] 50 mcg PO ASDIR 03/31/17 Levothyroxine [Synthroid -] 50 mcg PO ASDIR 03/31/17 Losartan Potassium 50 mg PO DAILY 03/31/17 Metformin HCl 500 mg PO BID 03/31/17 Methotrexate [Mexate -] 62.5 mg PO Q7D 03/31/17 Montelukast Na [Singulair -] 10 mg PO HS 03/31/17 [place]-3 Fatty Acids [[place]-3] 1,000 mg PO DAILY 03/31/17 Pramipexole Dihydrochloride [Mirapex -] 0.5 mg PO BID 03/31/17 Sertraline HCl 100 mg PO HS 03/31/17 Tiotropium [place] [Spiriva] 1 inh PO DAILY 03/31/17 Topiramate 100 mg PO BID 03/31/17 This patient is new to me today: No Emergency Visit: Yes ED Registration Date: 03/31/17 Care time: The patient presented to the Emergency Department on the above date and was hospitalized for further evaluation of their emergent condition. Critical Care patient: No
[2017-04-05 14:18] VITALS: BP 135/75; PULSE 86; TEMP 97.5
== END 2017-04-05 15:52 | disposition home or self-care (01) | DRG 191 ==
LOC: JER 10:48 → JERBED 16:36 → J4S 04-01 23:45
PROVIDERS: ADMIT Internal Medicine; ATTEND Nurse Practitioner Acute Care
DX: J44.1 Chronic obstructive pulmonary disease with (acute) exacerbation (principal); Z68.42 Body mass index [BMI] 45.0-49.9, adult; I50.30 Unspecified diastolic (congestive) heart failure; I11.0 Hypertensive heart disease with heart failure; E11.9 Type 2 diabetes mellitus without complications; J20.9 Acute bronchitis, unspecified; J44.0 Chronic obstructive pulmonary disease with (acute) lower respiratory infection; J11.1 Influenza due to unidentified influenza virus with other respiratory manifestations; E78.5 Hyperlipidemia, unspecified; E03.9 Hypothyroidism, unspecified; I25.10 Atherosclerotic heart disease of native coronary artery without angina pectoris; K21.9 Gastro-esophageal reflux disease without esophagitis; R07.2 Precordial pain; M32.8 Other forms of systemic lupus erythematosus; G47.33 Obstructive sleep apnea (adult) (pediatric); G30.8 Other Alzheimer's disease; F02.80 Dementia in other diseases classified elsewhere, unspecified severity, without behavioral disturbance, psychotic disturbance, mood disturbance, and anxiety; D64.9 Anemia, unspecified; G40.909 Epilepsy, unspecified, not intractable, without status epilepticus; R55 Syncope and collapse; E66.8 Other obesity; G43.809 Other migraine, not intractable, without status migrainosus; F32.9 Major depressive disorder, single episode, unspecified; Z79.4 Long term (current) use of insulin; Z96.643 Presence of artificial hip joint, bilateral; Z99.81 Dependence on supplemental oxygen; Z87.891 Personal history of nicotine dependence; Z98.84 Bariatric surgery status
CPT/HCPCS: 36415; 70450-TC; 71045-TC-FY; 71275-TC; 80048; 80053; 81003; 82550; 82803; 82962; 83605; 83735; 83880; 84484; 85025; 85610; 85730; 87040; 87070; 87086; 87205; 93005; 93010; 93306-TC; 93880-TC; 94640; 97116-GP; 97161-GP; 99285-25

== ENCOUNTER 2017-04-25 11:02 | Inpatient (IN) | payer OTHER, MEDICARE ==
[2017-04-25] MEDS ORDERED: methylPREDNISolone NA SUCC 125 MG/2 ML VIAL IVPB ONE (12:06)
[2017-04-25] MEDS ORDERED: ALBUTEROL SO4 2.5/IPRATROPIUM 0.5 INH SOL 3 ML VIAL.NEB. NEB ONE ×2 (12:06→12:35)
--- NOTE | 2017-04-25 12:06 | PDOC ---
History of Present Illness - General Chief Complaint: Shortness of Breath Stated Complaint: SOB Time Seen by Provider: 04/25/17 11:45 History Source: Patient Exam Limitations: No Limitations - History of Present Illness Initial Comments: This is a 62 YOF with h/o COPD on home O2, diastolic CHF, DANY on CPAP, IDDM, SLE (on Plaquenil, Mirapex, and every Tuesday on Methotrexate), HTN (on losartan and Lasix), HLD, hypothyroidism (on levothyroxine), CAD (08/2016 [facility] Brodie: mild luminal irregularities LCX), seizure disorder, and morbid obesity s/ p gastric band 11/2016. She p/w SOB, dry cough, chest discomfort, BLE swelling, watery diarrhea, lightheadedness, headache, and subjective fever (no elevated temperature on home thermometer) since yesterday. She was admitted here to [facility] from 03/31-04/05/17 for COPD exacerbation and syncope, had negative chest CTA and negative US carotids, was treated with Levaquin and Tamiflu, and was discharged on Prednisone taper starting at 60 mg. She is currently on 10 mg Prednisone daily, has been admitted to the hospital for her COPD but never the ICU, and has never been intubated for her COPD or any difficulty breathing. Her PCP is Dr. Hernandez. Past History - Past Medical History Allergies/Adverse Reactions: Allergies Allergy/AdvReac Type Severity Reaction Status Date / Time gabapentin [From Neurontin] Allergy PALPITATIONS, Verified 04/25/17 11:15 PASSES OUT Penicillins Allergy TONGUE Verified 04/25/17 11:15 Swelling phenytoin sodium Allergy diarrhea/vo Verified 04/25/17 11:15 [From Dilantin] miting phenytoin sodium extended Allergy Verified 04/25/17 11:15 [From Dilantin] theophylline [Theophylline] Allergy diarrhea,SE Verified 04/25/17 11:15 IZURES Home Medications: Ambulatory Orders Albuterol Sulfate [Proair Hfa] 1 puff IH Q4H PRN 03/31/17 Atorvastatin Ca [Lipitor] 10 mg PO HS 03/31/17 Biotin 5,000 mcg PO DAILY 03/31/17 Budesonide/Formeterol Fumarate [SYMBICORT 160/4.5mcg -] 2 inh PO BID 03/31/17 Carbamazepine [Carbamazepine ER] 300 mg PO BID 03/31/17 Exenatide [Byetta] 10 mcg SQ BID 03/31/17 Furosemide [Lasix -] 40 mg PO DAILY 03/31/17 Glipizide [Glipizide Xl] 10 mg PO BID 03/31/17 Hydroxychloroquine So4 [Plaquenil -] 200 mg PO BID 03/31/17 Insulin Glargine,Hum.rec.anlog [Lantus] 22 unit SQ AM 03/31/17 Levothyroxine [Synthroid -] 50 mcg PO ASDIR 03/31/17 Losartan Potassium 50 mg PO DAILY 03/31/17 Metformin HCl 500 mg PO BID 03/31/17 Montelukast Na [Singulair -] 10 mg PO HS 03/31/17 [place]-3 Fatty Acids [[place]-3] 1,000 mg PO DAILY 03/31/17 Pramipexole Dihydrochloride [Mirapex -] 0.5 mg PO BID 03/31/17 Sertraline HCl 100 mg PO HS 03/31/17 Tiotropium [place] [Spiriva] 1 inh PO DAILY 03/31/17 Topiramate 100 mg PO BID 03/31/17 predniSONE [Deltasone -] See Taper PO DAILY #42 tablet 04/05/17 Insulin Lispro [Humalog] 0 unit SQ ASDIR 04/25/17 Anemia: No Asthma: Yes Cancer: No (home c-pap) Cardiac Disorders: Yes (CAD) CVA: No COPD: Yes (O2 2L CONTINUOUSLY) CHF: No DVT: No Dementia: No Diabetes: Yes (iddm) GI Disorders: Yes (REFLUX) Disorders: No HTN: Yes Hypercholesterolemia: Yes Liver Disease: No Seizures: Yes (NO RECENT [id number]) Thyroid Disease: Yes (HYPO) - Surgical History Abdominal Surgery: Yes (lapband) Appendectomy: No Cardiac Surgery: No Cholecystectomy: Yes GI Surgery: Yes (LAP sx 11/23/16) Lung Surgery: No Neurologic Surgery: No Orthopedic Surgery: Yes (BILAT HIP REPLACEMENT/BILAT KNEE SX) - Immunization History Immunization Up to Date: Yes - Suicide/Smoking/Psychosocial Hx Smoking Status: Yes Smoking History: Former smoker Have you smoked in the past 12 months: No Number of Cigarettes Smoked Daily: 10 If you are a former smoker, when did you quit?: 20 years ago Information on smoking cessation initiated: No Hx Alcohol Use: No Drug/Substance Use Hx: Yes (marijuana) Substance Use Type: None Hx Substance Use Treatment: No Review of Systems - Review of Systems Able to Perform ROS?: Yes Constitutional: Yes: Fever (subjective). No: Chills, Unexplained wgt Loss HEENTM: No: Nose Congestion, Throat Pain Respiratory: Yes: Cough, Shortness of Breath Cardiac (ROS): Yes: Chest Pain, Edema (yesterday), Lightheadedness. No: Syncope ABD/GI: Yes: Diarrhea (watery), Nausea. No: Constipated, Vomiting : No: Burning, Dysuria Musculoskeletal: Yes: Back Pain (left upper), Muscle Pain (left arm). No: Neck Pain Integumentary: No: Bruising, Rash Neurological: Yes: Headache. No: Numbness, Tingling, Weakness Endocrine: No: Unexplained Weight Gain, Unexplained Weight Loss *Physical Exam - Vital Signs Last Vital Signs Temp Pulse Resp BP Pulse Ox 99 F 88 22 145/69 97 04/25/17 11:15 04/25/17 11:15 04/25/17 11:15 04/25/17 11:15 04/25/17 11:15 - Physical Exam General Appearance: Yes: Nourished, Appropriately Dressed, Mild Distress, Obese , Other (alert and appropriate adult female who is heavy-busted, accompanied by family, wheeled back to ER room in a wheelchair with supplemental 2 LPM via NC from home) HEENT: positive: EOMI, Normal Voice, Hearing Grossly Normal. negative: Scleral Icterus (R), Scleral Icterus (L), Nasal Congestion Neck: positive: Trachea midline, Supple. negative: Tender, Rigid, Stridor Respiratory/Chest: positive: Lungs Clear, Normal Breath Sounds, Other (shallow breathing, on NC, decreased lung sounds left base). negative: Respiratory Distress, Crackles, Rhonchi, Stridor, Wheezing Cardiovascular: positive: Regular Rhythm, Regular Rate, S1, S2. negative: Edema , JVD, Murmur Gastrointestinal/Abdominal: positive: Normal Bowel Sounds, Flat, Soft. negative : Tender, Organomegaly, Pulsatile Mass, Guarding Musculoskeletal: positive: Normal Inspection. negative: Decreased Range of Motion, Vertebral Tenderness Extremity: positive: Normal Capillary Refill, Normal Inspection, Normal Range of Motion. negative: Tender, Cyanosis Integumentary: positive: Normal Color, Dry, Warm. negative: Erythema, Rash, Bruising Neurologic: positive: clinical laboratory technologist II-XII NML intact (grossly), Fully Oriented, Alert, Normal Mood/Affect, Normal Response, Motor Strength 06/18 ED Treatment Course - LABORATORY CBC & Chemistry Diagram: 04/25/17 13:45 04/25/17 13:45 Medical Decision Making - Medical Decision Making 62 YOF with h/o COPD on home O2, diastolic CHF, DANY on CPAP, CAD, IDDM, and morbid obesity s/p lap band 11/2016. She presents with SOB and cough similar to prior COPD exacerbation, but this time also with chest pain, watery diarrhea, and flu-like sxs. DDX IBNLT COPD exacerbation, CHF exacerbation, bronchitis/PNA, ACS, anemia +- demand ischemia, PE, etc. Ordered is ABG CBCD CMP Mg Phos Troponin BNP TSH CXR EKG. 04/25/17 14:47 Patient with improved aeration after DuoNeb x3 and SoluMedrol. EKG with NSR, rate 84, normal axis and intervals, no ischemic changes. CXR shows LLL opacity which could represent PNA. BG is 165, alk phos 122, otherwise blood labs wnl. Pneumonia severity index is 101, correlating with 9.3% mortality. 04/25/17 15:01 Ordered is vancomycin 17 mg/kg for 2 Gm first dose. Also ordered is Levaquin 750 mg. Patient has not met SIRS vitals, qSOFA is 0-1 based on resp rate. Attempted to draw blood cultures prior to antibiotic administration but the patient is a difficult IV stick. 04/25/17 15:32 Page sent to [facility] (admitting for Pt's PCP David) for admission. 04/25/17 15:[address] Pierre with [facility] who agrees with plan for admission. Decision to Admit order placed to Dr. Milian. *DC/Admit/Observation/Transfer Diagnosis at time of Disposition: COPD exacerbation, Hyperglycemia Pneumonia Qualifiers: Pneumonia type: due to unspecified organism Laterality: left Lung location: lower lobe of lung Qualified Code(s): J18.1 - Lobar pneumonia, unspecified organism - Discharge Dispostion Condition at time of disposition: Guarded Admit: Yes - Referrals Referrals: Goran Hernandez MD [Primary Care Provider] - - Patient Instructions - Post Discharge Activity
[2017-04-25] MEDS ORDERED: methylPREDNISolone NA SUCC 125 MG/2 ML VIAL ONE (12:35)
[2017-04-25] MEDS ORDERED: ASPIRIN 325 MG TABLET PO ONE (12:40)
[2017-04-25] MEDS ORDERED: ASPIRIN 325 MG TABLET ONE (13:00)
[2017-04-25 13:02] LABS: ARTERIAL BLD GAS O2 SATURATION 96.1 % (90-98.9); ARTERIAL BLOOD GAS BASE EXCESS 0.4 meq/l (-2-2); ARTERIAL BLOOD GAS PCO2 40.5 mmHg (35-45); ARTERIAL BLOOD GAS PO2 85.8 mmHg (80-100); CARBOXYHEMOGLOBIN 1.2 gm% (0.5-2.0)
[2017-04-25 13:03] LABS: ALLENS TEST POSITIVE
--- NOTE | 2017-04-25 13:17 | PDOC ---
Attending Attestation - Resident Resident Name: HowardKalyn - ED Attending Attestation I have performed the following: I have examined & evaluated the patient, The case was reviewed & discussed with the resident, I agree w/resident's findings & plan, Exceptions are as noted - HPI HPI: 04/25/17 13:14 62-year-old female with history of COPD on home O2, question diastolic CHF on diuretics (relatively normal echo on previous admission about 3 weeks ago) presents with 1 day of worsening shortness of breath the setting of dry cough, no fevers or chills. Patient had previously been treated for COPD exacerbation and treated empirically for flu, has been on steroid taper since discharge. - Physicial Exam PE: 04/25/17 13:15 Tachypnea, otherwise seated in stretcher speaking full sentences Distant breath sounds, slight crackles at the right base, decreased breath sounds at the left base. Moderate air entry, no accessory muscle use, no audible expiratory wheezing Trace pretibial edema bilaterally - Medical Decision Making 04/25/17 13:16 Patient seen and evaluated with the resident. I agree with the overall evaluation, assessment, and management with the following summary of visit: 62-year-old female with history of COPD and diastolic CHF presents with worsening shortness of breath for 1 day and increased cough. Question COPD exacerbation, question pneumonia, question CHF/effusion. Rule out ACS given left chest pain. Labs, chest x-ray Nebulizers, IV steroids EKG is sinus with LVH but no acute ischemic changes Reassess Heart Score/ECG Review #1 ECG reviewed & interpreted by me at: 12:04 General ECG Interpretation: Sinus Rhythm, Normal Rate (84), Normal Intervals ( LVH, QTC 451), No acute ischemic changes Compared to previous ECG there are: No significant change (03/31/17)
[2017-04-25 14:14] LABS: BASO % 0.2 % (0-2.0); EOS % 0.2 % (0-4.5); HEMATOCRIT 34.4 % (32.4-45.2); HEMOGLOBIN 11.4 GM/dL (10.7-15.3); LYMPH % 28.4 % (8-40); MCH 30.8 pg (25.7-33.7); MCHC 33.2 g/dl (32.0-36.0); MEAN CELL VOLUME 92.8 fl (80-96); MEAN PLT VOLUME 8.2 fl (7.5-11.1); NEUT % 68.2 % (42.8-82.8); PLATELET COUNT 298 K/MM3 (134-434); RBC 3.71 M/mm3 (3.60-5.2); RDW 16.3 % (11.6-15.6)
[2017-04-25 14:15] LABS: ALBUMIN 3.5 g/dl (3.4-5.0); ANION GAP 14 (8-16); BILIRUBIN,TOTAL 0.3 mg/dL (0.2-1.0); BLOOD UREA NITROGEN 13 mg/dL (7-18); CALCIUM 8.7 mg/dL (8.5-10.1); CHLORIDE 101 mmol/L (98-107); CO2 25 mmol/L (21-32); GLUCOSE,RANDOM 165 mg/dL (74-106); INR 1.04 (0.82-1.09); MAGNESIUM 2.2 mg/dL (1.8-2.4); PHOSPHOROUS 2.6 mg/dL (2.5-4.9); POTASSIUM 3.9 mmol/L (3.5-5.1); PROTHROMBIN TIME (PATIENT) 11.7 SEC (9.98-11.88); SGOT/AST 17 U/L (15-37); SGPT/ALT 31 U/L (12-78); SODIUM 140 mmol/L (136-145); TOT PROT 7.3 g/dl (6.4-8.2)
[2017-04-25 14:16] LABS: ALK PHOS 122 U/L (45-117); N-TERMINAL BNP 66.59 pg/ml (5-125)
[2017-04-25 14:18] LABS: ACTIVATED PTT 29.4 SECONDS (26.9-34.4)
[2017-04-25] MEDS ORDERED: VANCOMYCIN 1,000 MG VIAL (RESTRICTED TO ID ONLY) IVPB ONE (14:51)
[2017-04-25] MEDS ORDERED: VANCOMYCIN 2,000 MG in DEXTROSE 5%-WATER - 500 ML IVPB ONE (15:15)
[2017-04-25] MEDS ORDERED: VANCOMYCIN 1 GRAM (PRE-DOCKED) 2,000 MG/500 ML BAG IVPB ONE (15:28)
--- NOTE | 2017-04-25 15:48 | EKG ---
Test Reason : Blood Pressure : / mmHG Vent. Rate : 084 BPM Atrial Rate : 084 BPM P-R Int : 148 ms QRS Dur : 072 ms QT Int : 382 ms P-R-T Axes : 023 -20 058 degrees QTc Int : 451 ms POOR DATA QUALITY, INTERPRETATION MAY BE ADVERSELY AFFECTED NORMAL SINUS RHYTHM VOLTAGE CRITERIA FOR LEFT VENTRICULAR HYPERTROPHY ABNORMAL ECG WHEN COMPARED WITH ECG OF 31-MAR-2017 10:59, NO SIGNIFICANT CHANGE WAS FOUND Confirmed by KRUPA SIERRA MD ([id number]) on 04/25/2017 3:48:18 PM Referred By: Confirmed By:KRUPA SIERRA MD
--- NOTE | 2017-04-25 16:44 | HP ---
CHIEF COMPLAINT: "I have trouble breathing" Family History: Allergies gabapentin [From Neurontin] Allergy (Verified 04/25/17 11:15) PALPITATIONS, PASSES OUT Penicillins Allergy (Verified 04/25/17 11:15) TONGUE Swelling phenytoin sodium [From Dilantin] Allergy (Verified 04/25/17 11:15) diarrhea/vomiting phenytoin sodium extended [From Dilantin] Allergy (Verified 04/25/17 11:15) theophylline [Theophylline] Allergy (Verified 04/25/17 11:15) diarrhea,SEIZURES HOME MEDICATIONS: Home Medications Medication Instructions Recorded Albuterol Sulfate [Proair Hfa] 1 puff IH Q4H PRN 03/31/17 Atorvastatin Ca [Lipitor] 10 mg PO HS 03/31/17 Biotin 5,000 mcg PO DAILY 03/31/17 Budesonide/Formeterol Fumarate 2 inh PO BID 03/31/17 [SYMBICORT 160/4.5mcg -] Carbamazepine [Carbamazepine ER] 300 mg PO BID 03/31/17 Exenatide [Byetta] 10 mcg SQ BID 03/31/17 Furosemide [Lasix -] 40 mg PO DAILY 03/31/17 Glipizide [Glipizide Xl] 10 mg PO BID 03/31/17 Hydroxychloroquine So4 [Plaquenil 200 mg PO BID 03/31/17 -] Insulin Glargine,Hum.rec.anlog 22 unit SQ AM 03/31/17 [Lantus] Levothyroxine [Synthroid -] 50 mcg PO ASDIR 03/31/17 Losartan Potassium 50 mg PO DAILY 03/31/17 Metformin HCl 500 mg PO BID 03/31/17 Montelukast Na [Singulair -] 10 mg PO HS 03/31/17 [place]-3 Fatty Acids [[place]-3] 1,000 mg PO DAILY 03/31/17 Pramipexole Dihydrochloride 0.5 mg PO BID 03/31/17 [Mirapex -] Sertraline HCl 100 mg PO HS 03/31/17 Tiotropium [place] [Spiriva] 1 inh PO DAILY 03/31/17 Topiramate 100 mg PO BID 03/31/17 predniSONE [Deltasone -] See Taper PO DAILY #42 tablet 04/05/17 Insulin Lispro [Humalog] 0 unit SQ ASDIR 04/25/17 REVIEW OF SYSTEMS CONSTITUTIONAL: Absent: fever, chills, diaphoresis, generalized weakness, malaise, loss of appetite, weight change HEENT: Absent: rhinorrhea, nasal congestion, throat pain, throat swelling, difficulty swallowing, mouth swelling, ear pain, eye pain, visual changes CARDIOVASCULAR: Absent: chest pain, syncope, palpitations, irregular heart rate, lightheadedness , peripheral edema RESPIRATORY: Absent: cough, shortness of breath, dyspnea with exertion, orthopnea, wheezing, stridor, hemoptysis GASTROINTESTINAL: Absent: abdominal pain, abdominal distension, nausea, vomiting, diarrhea, constipation, melena, hematochezia GENITOURINARY: Absent: dysuria, frequency, urgency, hesitancy, hematuria, flank pain, genital pain MUSCULOSKELETAL: Absent: myalgia, arthralgia, joint swelling, back pain, neck pain SKIN: Absent: rash, itching, pallor HEMATOLOGIC/IMMUNOLOGIC: Absent: easy bleeding, easy bruising, lymphadenopathy, frequent infections ENDOCRINE: Absent: unexplained weight gain, unexplained weight loss, heat intolerance, cold intolerance NEUROLOGIC: Absent: headache, focal weakness or paresthesias, dizziness, unsteady gait, seizure, mental status changes, bladder or bowel incontinence PSYCHIATRIC: Absent: anxiety, depression, suicidal or homicidal ideation, hallucinations. PHYSICAL EXAMINATION Vital Signs - 24 hr 04/25/17 04/25/17 04/25/17 11:15 13:11 16:14 Temperature 99 F Pulse Rate 88 85 Pulse Rate [ 90 Apical] Respiratory 22 20 Rate Blood Pressure 145/69 Blood Pressure 130/70 [Left Arm] O2 Sat by Pulse 97 100 100 Oximetry (%) GENERAL: Awake, alert, and fully oriented, in no acute distress. HEAD: Normal with no signs of trauma. EYES: Pupils equal, round and reactive to light, extraocular movements intact, sclera anicteric, conjunctiva clear. No lid lag. EARS, NOSE, THROAT: Ears normal, nares patent, oropharynx clear without exudates. Moist mucous membranes. NECK: Normal range of motion, supple without lymphadenopathy, JVD, or masses. LUNGS: Breath sounds equal, clear to auscultation bilaterally. No wheezes, and no crackles. No accessory muscle use. HEART: Regular rate and rhythm, normal S1 and S2 without murmur, rub or gallop. ABDOMEN: Soft, nontender, not distended, normoactive bowel sounds, no guarding, no rebound, no masses. No hepatomegaly or splenomegaly. MUSCULOSKELETAL: Normal range of motion at all joints. No bony deformities or tenderness. No CVA tenderness. UPPER EXTREMITIES: 2+ pulses, warm, well-perfused. No cyanosis. No clubbing. No peripheral edema. LOWER EXTREMITIES: 2+ pulses, warm, well-perfused. No calf tenderness. No peripheral edema. NEUROLOGICAL: Cranial nerves II-XII intact. Normal speech. Normal gait. PSYCHIATRIC: Cooperative. Good eye contact. Appropriate mood and affect. SKIN: Warm, dry, normal turgor, no rashes or lesions noted, normal capillary refill. Laboratory Results - last 24 hr 04/25/17 04/25/17 04/25/17 13:00 13:45 13:45 WBC 10.0 D RBC 3.71 Hgb 11.4 Hct 34.4 MCV 92.8 MCH 30.8 MCHC 33.2 RDW 16.3 H Plt Count 298 MPV 8.2 Neutrophils % 68.2 Lymphocytes % 28.4 D Monocytes % 3.0 L Eosinophils % 0.2 D Basophils % 0.2 PT with INR INR PTT (Actin FS) Anticoagulation Therapy No Result Required. Puncture Site Right radial ABG pH 7.40 ABG pCO2 at Pt Temp 40.5 ABG pO2 at Pt Temp 85.8 ABG HCO3 24.6 ABG O2 Sat (Measured) 96.1 ABG O2 Content 15.1 ABG Base Excess 0.4 Luis Test Positive Carboxyhemoglobin 1.2 Methemoglobin 1.4 O2 Delivery Device No Result Required. Oxygen Flow Rate Yes Vent Mode No Result Required. Vent Rate No Result Required. Mechanical Rate No Result Required. Pressure Support Vent No Result Required. Sodium 140 Potassium 3.9 Chloride 101 Carbon Dioxide 25 Anion Gap 14 BUN 13 Creatinine 1.0 Creat Clearance w eGFR 56.37 Random Glucose 165 H Calcium 8.7 Phosphorus Magnesium Total Bilirubin 0.3 D AST 17 ALT 31 Alkaline Phosphatase 122 H Troponin I B-Natriuretic Peptide Total Protein 7.3 Albumin 3.5 TSH 0.90 Blood Type Antibody Screen 04/25/17 04/25/17 04/25/17 13:45 13:45 13:45 WBC RBC Hgb Hct MCV MCH MCHC RDW Plt Count MPV Neutrophils % Lymphocytes % Monocytes % Eosinophils % Basophils % PT with INR 11.70 INR 1.04 PTT (Actin FS) 29.4 Anticoagulation Therapy Puncture Site ABG pH ABG pCO2 at Pt Temp ABG pO2 at Pt Temp ABG HCO3 ABG O2 Sat (Measured) ABG O2 Content ABG Base Excess Luis Test Carboxyhemoglobin Methemoglobin O2 Delivery Device Oxygen Flow Rate Vent Mode Vent Rate Mechanical Rate Pressure Support Vent Sodium Potassium Chloride Carbon Dioxide Anion Gap BUN Creatinine Creat Clearance w eGFR Random Glucose Calcium Phosphorus 2.6 Magnesium 2.2 Total Bilirubin AST ALT Alkaline Phosphatase Troponin I 0.02 B-Natriuretic Peptide 66.59 Total Protein Albumin TSH Blood Type O POSITIVE Antibody Screen Negative ASSESSMENT/PLAN: Hospitalist Screening - Colonoscopy Questionnaire Colonoscopy Questionnaire: Colonoscopy Questionnaire
--- NOTE | 2017-04-25 16:58 | HP ---
CHIEF COMPLAINT: PCP: Dr. Hernandez. HISTORY OF PRESENT ILLNESS: This is a 62 YOF with h/o COPD on 3L, HFPEF, DANY on CPAP, IDDM, SLE (Plaquenil, Mirapex, Methotrexate), HTN, HLD, hypothyroidism, CAD (08/2016 cath [facility]: mild luminal irregularities in LCX), seizure d/o, and morbid obesity s/p gastric band 11/2016, who presents with worsening sob, dry cough, malaise, subjective fever, sore throat, LE edema, diarrhea since sat. She denies sick contacts. Her last admission for COPD exacerbation was 01/29-02/02: completed high dose IV medrol, Levaquin + tamiflu x 5 d and was sent home on slow prednisone taper ( still on 10 mg). She has a history of frequent admissions for COPD w/o ICU admission or intubation. Patient reports having asthma as well and attributes current symptoms to usual prodrome of copd exacerbation. In ED she is afebrile, hemodynamically stable, with 100% O2 sat on 2L. Her abg shows no hypoxia, pH abnormality of CO2 retention and her labs are unremarkable. ER course was notable for: (1)CXR, (2)ekg (3)levaquin, vanco, nebs, medrol 125, asa Recent Travel: denies PAST MEDICAL HISTORY: PAST SURGICAL HISTORY: Cataract Removal, Cholecystectomy, Joint Replacement ( Right total hip replacement), Tonsillectomy, lap band, cardiac cath Social History: Smoking: Former smoker quit 2004, smoked for 20-25 yrs Alcohol: Denies Drugs: Denies Family History: Non contributory Allergies gabapentin [From Neurontin] Allergy (Verified 04/25/17 11:15) PALPITATIONS, PASSES OUT Penicillins Allergy (Verified 04/25/17 11:15) TONGUE Swelling phenytoin sodium [From Dilantin] Allergy (Verified 04/25/17 11:15) diarrhea/vomiting phenytoin sodium extended [From Dilantin] Allergy (Verified 04/25/17 11:15) theophylline [Theophylline] Allergy (Verified 04/25/17 11:15) diarrhea,SEIZURES HOME MEDICATIONS: Home Medications Medication Instructions Recorded Albuterol Sulfate [Proair Hfa] 1 puff IH Q4H PRN 03/31/17 Atorvastatin Ca [Lipitor] 10 mg PO HS 03/31/17 Biotin 5,000 mcg PO DAILY 03/31/17 Budesonide/Formeterol Fumarate 2 inh PO BID 03/31/17 [SYMBICORT 160/4.5mcg -] Carbamazepine [Carbamazepine ER] 300 mg PO BID 03/31/17 Exenatide [Byetta] 10 mcg SQ BID 03/31/17 Furosemide [Lasix -] 40 mg PO DAILY 03/31/17 Glipizide [Glipizide Xl] 10 mg PO BID 03/31/17 Hydroxychloroquine So4 [Plaquenil 200 mg PO BID 03/31/17 -] Insulin Glargine,Hum.rec.anlog 22 unit SQ AM 03/31/17 [Lantus] Levothyroxine [Synthroid -] 50 mcg PO ASDIR 03/31/17 Losartan Potassium 50 mg PO DAILY 03/31/17 Metformin HCl 500 mg PO BID 03/31/17 Montelukast Na [Singulair -] 10 mg PO HS 03/31/17 [place]-3 Fatty Acids [[place]-3] 1,000 mg PO DAILY 03/31/17 Pramipexole Dihydrochloride 0.5 mg PO BID 03/31/17 [Mirapex -] Sertraline HCl 100 mg PO HS 03/31/17 Tiotropium [place] [Spiriva] 1 inh PO DAILY 03/31/17 Topiramate 100 mg PO BID 03/31/17 predniSONE [Deltasone -] See Taper PO DAILY #42 tablet 04/05/17 Insulin Lispro [Humalog] 0 unit SQ ASDIR 04/25/17 REVIEW OF SYSTEMS CONSTITUTIONAL: Absent: diaphoresis, loss of appetite, weight change HEENT: Absent: rhinorrhea, nasal congestion, difficulty swallowing CARDIOVASCULAR: Absent: chest pain, syncope, palpitations, irregular heart rate, lightheadedness RESPIRATORY: Absent: orthopnea, stridor, hemoptysis GASTROINTESTINAL: Absent: abdominal pain, abdominal distension, nausea, vomiting, constipation, melena, hematochezia GENITOURINARY: Absent: dysuria MUSCULOSKELETAL: Absent: joint swelling, back pain, neck pain SKIN: Absent: rash, itching, pallor HEMATOLOGIC/IMMUNOLOGIC: Absent: easy bleeding, easy bruising ENDOCRINE: Absent: unexplained weight gain, unexplained weight loss, heat intolerance, cold intolerance NEUROLOGIC: Absent: headache, focal weakness or paresthesias PSYCHIATRIC: Absent: anxiety, depression PHYSICAL EXAMINATION Vital Signs - 24 hr 04/25/17 04/25/17 04/25/17 11:15 13:11 16:14 Temperature 99 F Pulse Rate 88 85 Pulse Rate [ 90 Apical] Respiratory 22 20 Rate Blood Pressure 145/69 Blood Pressure 130/70 [Left Arm] O2 Sat by Pulse 97 100 100 Oximetry (%) GENERAL: Awake, alert, and fully oriented, in no acute distress. HEAD: Normal with no signs of trauma. EYES: Pupils equal, round and reactive to light, extraocular movements intact, sclera anicteric, conjunctiva clear. No lid lag. EARS, NOSE, THROAT: Moist mucous membranes, slightly erythematous oropharynx . NECK: supple without lymphadenopathy, JVD, or masses. LUNGS: diffusely restricted breath sounds with diffuse fine wheezes. no ronchi or crackles HEART: distant heart sounds, Regular rate and rhythm, normal S1 and S2 ABDOMEN: obese, Soft, nontender, not distended, normoactive bowel sounds, no guarding, no rebound, no masses. MUSCULOSKELETAL: No CVA tenderness. UPPER EXTREMITIES: 2+ pulses, warm, well-perfused. No cyanosis. No clubbing. No peripheral edema. LOWER EXTREMITIES: 2+ pulses, warm, well-perfused. No calf tenderness. trace peripheral edema. NEUROLOGICAL: Cranial nerves II-XII intact. strenmgth 5/5 b/l in ue and le, sensation intact, 1+ patellar reflexes b/l. Normal speech. PSYCHIATRIC: Cooperative. Good eye contact. Appropriate mood and affect. SKIN: Warm, dry Laboratory Results - last 24 hr 04/25/17 04/25/17 04/25/17 13:00 13:45 13:45 WBC 10.0 D RBC 3.71 Hgb 11.4 Hct 34.4 MCV 92.8 MCH 30.8 MCHC 33.2 RDW 16.3 H Plt Count 298 MPV 8.2 Neutrophils % 68.2 Lymphocytes % 28.4 D Monocytes % 3.0 L Eosinophils % 0.2 D Basophils % 0.2 PT with INR INR PTT (Actin FS) Anticoagulation Therapy No Result Required. Puncture Site Right radial ABG pH 7.40 ABG pCO2 at Pt Temp 40.5 ABG pO2 at Pt Temp 85.8 ABG HCO3 24.6 ABG O2 Sat (Measured) 96.1 ABG O2 Content 15.1 ABG Base Excess 0.4 Luis Test Positive Carboxyhemoglobin 1.2 Methemoglobin 1.4 O2 Delivery Device No Result Required. Oxygen Flow Rate Yes Vent Mode No Result Required. Vent Rate No Result Required. Mechanical Rate No Result Required. Pressure Support Vent No Result Required. Sodium 140 Potassium 3.9 Chloride 101 Carbon Dioxide 25 Anion Gap 14 BUN 13 Creatinine 1.0 Creat Clearance w eGFR 56.37 Random Glucose 165 H Calcium 8.7 Phosphorus Magnesium Total Bilirubin 0.3 D AST 17 ALT 31 Alkaline Phosphatase 122 H Troponin I B-Natriuretic Peptide Total Protein 7.3 Albumin 3.5 TSH 0.90 Blood Type Antibody Screen 04/25/17 04/25/17 04/25/17 13:45 13:45 13:45 WBC RBC Hgb Hct MCV MCH MCHC RDW Plt Count MPV Neutrophils % Lymphocytes % Monocytes % Eosinophils % Basophils % PT with INR 11.70 INR 1.04 PTT (Actin FS) 29.4 Anticoagulation Therapy Puncture Site ABG pH ABG pCO2 at Pt Temp ABG pO2 at Pt Temp ABG HCO3 ABG O2 Sat (Measured) ABG O2 Content ABG Base Excess Luis Test Carboxyhemoglobin Methemoglobin O2 Delivery Device Oxygen Flow Rate Vent Mode Vent Rate Mechanical Rate Pressure Support Vent Sodium Potassium Chloride Carbon Dioxide Anion Gap BUN Creatinine Creat Clearance w eGFR Random Glucose Calcium Phosphorus 2.6 Magnesium 2.2 Total Bilirubin AST ALT Alkaline Phosphatase Troponin I 0.02 B-Natriuretic Peptide 66.59 Total Protein Albumin TSH Blood Type O POSITIVE Antibody Screen Negative ASSESSMENT/PLAN: This is a 62 YOF with h/o COPD on 3L, HFPEF, DANY on CPAP, IDDM, SLE (Plaquenil, Mirapex, Methotrexate), HTN, HLD, hypothyroidism, CAD (08/2016 cath [facility]: mild luminal irregularities in LCX), seizure d/o, and morbid obesity s/p gastric band 11/2016, who presents with worsening sob, dry cough, malaise, subjective fever, sore throat, LE edema, diarrhea since sat Mild Acute on chronic Asthma/COPD exacerbation -likely caused by viral URI -abg no CO2 retention or hypoxia -Medrol 40 BID -po azithomycin -Duo nebs, albuterol prn -continue home Symbicort, Singulair -continue home 3 L NC O2 -CPAP At night -repeat CXR (initial study poor quality) -flu swab, rsv HTN -controlled -Losartan 50mg d, Lasix 40mg d HLD -lipitor IDDMII -Levemir 22 units AM -ISS, BGM ACHS -hold po metformin, glipizide Hypothyroid -stable -continue Synthroid 50mcg d SLE -stable -continue Plaquenil, Mirapex SZ d/o -topamax, carbamazepine Dispo: obs m/s Problem List - Problem (1) COPD exacerbation Code(s): J44.1 - CHRONIC OBSTRUCTIVE PULMONARY DISEASE W (ACUTE) EXACERBATION (2) Hyperglycemia Code(s): R73.9 - HYPERGLYCEMIA, UNSPECIFIED (3) Pneumonia Code(s): J18.9 - PNEUMONIA, UNSPECIFIED ORGANISM Qualifiers: Pneumonia type: due to unspecified organism Laterality: left Lung location: lower lobe of lung Qualified Code(s): J18.1 - Lobar pneumonia, unspecified organism (4) Acute exacerbation of chronic obstructive pulmonary disease (COPD) Code(s): J44.1 - CHRONIC OBSTRUCTIVE PULMONARY DISEASE W (ACUTE) EXACERBATION (5) COPD (chronic obstructive pulmonary disease) Code(s): J44.9 - CHRONIC OBSTRUCTIVE PULMONARY DISEASE, UNSPECIFIED Qualifiers: COPD type: unspecified COPD Qualified Code(s): J44.9 - Chronic obstructive pulmonary disease, unspecified (6) Influenza-like illness Code(s): R69 - ILLNESS, UNSPECIFIED (7) Morbid (severe) obesity due to excess calories Code(s): E66.01 - MORBID (SEVERE) OBESITY DUE TO EXCESS CALORIES (8) CHF (congestive heart failure) Code(s): I50.9 - HEART FAILURE, UNSPECIFIED (9) CKD (chronic kidney disease) stage 3, GFR 30-59 ml/min Code(s): N18.3 - CHRONIC KIDNEY DISEASE, STAGE 3 (MODERATE) (10) Diabetic peripheral neuropathy Code(s): E11.42 - TYPE 2 DIABETES MELLITUS WITH DIABETIC POLYNEUROPATHY (11) Hypertension Code(s): I10 - ESSENTIAL (PRIMARY) HYPERTENSION Qualifiers: Hypertension type: essential hypertension Qualified Code(s): I10 - Essential (primary) hypertension (12) Hypothyroidism Code(s): E03.9 - HYPOTHYROIDISM, UNSPECIFIED Qualifiers: Hypothyroidism type: unspecified Qualified Code(s): E03.9 - Hypothyroidism , unspecified (13) Morbid obesity Code(s): E66.01 - MORBID (SEVERE) OBESITY DUE TO EXCESS CALORIES (14) SLE (systemic lupus erythematosus) Code(s): M32.9 - SYSTEMIC LUPUS ERYTHEMATOSUS, UNSPECIFIED (15) Seizure disorder Code(s): G40.909 - EPILEPSY, UNSP, NOT INTRACTABLE, WITHOUT STATUS EPILEPTICUS (16) Sleep apnea, obstructive Code(s): G47.33 - OBSTRUCTIVE SLEEP APNEA (ADULT) (PEDIATRIC) (17) Type 2 diabetes mellitus Code(s): E11.9 - TYPE 2 DIABETES MELLITUS WITHOUT COMPLICATIONS Qualifiers: Diabetes mellitus [facility] insulin use: without collection teller use Diabetes mellitus complication status: with kidney complications Diabetes mellitus complication detail: with chronic kidney disease Chronic kidney disease stage : unspecified stage Qualified Code(s): E11.22 - Type 2 diabetes mellitus with diabetic chronic kidney disease Visit type - Emergency Visit Emergency Visit: Yes ED Registration Date: 04/25/17 Care time: The patient presented to the Emergency Department on the above date and was hospitalized for further evaluation of their emergent condition. - New Patient This patient is new to me today: Yes Date on this admission: 04/25/17 - Critical Care Critical Care patient: No
--- NOTE | 2017-04-25 18:18 | HP ---
CHIEF COMPLAINT: Shortness of breath PCP: Dr. Heard HISTORY OF PRESENT ILLNESS: 62 year old female with past medical history of COPD on three liters of home oxygen, CAD status post cath with no stent placed, hypertension, hyperlipidemia , lupus, DANY on CPAP, type II diabetes, hypothyroidism, seizure disorder, and morbid obesity presented with shortness of breath, dry cough, subjective fevers , and lower extremity edema that began on Tuesday. Patient states she began having worsening shortness of breath along with a sore throat and fevers with sweats on Tuesday. She increased her albuterol nebs to Q4 hours throughout Tuesday and Tuesday without any improvement in her symptoms.S he decided to come to the ER today because her symptoms were worsening. She denies any chills , chest pain, or abdominal pain. She denies any sick contacts or anyone else near Her that is sick. Her last admission was in March for COPD exacerbation. She completed Levaquin and Tamiflu along with a prednisone taper. She is now taking prednisone 10 mg chronically. ER course was notable for: (1) Afebrile, VS stable (2) ABG within normal limits ph 7.4, CO2- 40.5, hco3-24.6 (3) CXR- poor film, needs to be redone (4) labs unremarkable Recent Travel: Denies PAST MEDICAL HISTORY: As per HPI PAST SURGICAL HISTORY: Hip replacement, cardiac cath, tonsillectomy, Cholecystectomy Social History: Smoking: denies Alcohol: denies Drugs: denies Family History: Unsure by patient Allergies gabapentin [From Neurontin] Allergy (Verified 04/25/17 11:15) PALPITATIONS, PASSES OUT Penicillins Allergy (Verified 04/25/17 11:15) TONGUE Swelling phenytoin sodium [From Dilantin] Allergy (Verified 04/25/17 11:15) diarrhea/vomiting phenytoin sodium extended [From Dilantin] Allergy (Verified 04/25/17 11:15) theophylline [Theophylline] Allergy (Verified 04/25/17 11:15) diarrhea,SEIZURES HOME MEDICATIONS: Home Medications Medication Instructions Recorded Albuterol Sulfate [Proair Hfa] 1 puff IH Q4H PRN 03/31/17 Atorvastatin Ca [Lipitor] 10 mg PO HS 03/31/17 Biotin 5,000 mcg PO DAILY 03/31/17 Budesonide/Formeterol Fumarate 2 inh PO BID 03/31/17 [SYMBICORT 160/4.5mcg -] Carbamazepine [Carbamazepine ER] 300 mg PO BID 03/31/17 Exenatide [Byetta] 10 mcg SQ BID 03/31/17 Furosemide [Lasix -] 40 mg PO DAILY 03/31/17 Glipizide [Glipizide Xl] 10 mg PO BID 03/31/17 Hydroxychloroquine So4 [Plaquenil 200 mg PO BID 03/31/17 -] Insulin Glargine,Hum.rec.anlog 22 unit SQ AM 03/31/17 [Lantus] Levothyroxine [Synthroid -] 50 mcg PO ASDIR 03/31/17 Losartan Potassium 50 mg PO DAILY 03/31/17 Metformin HCl 500 mg PO BID 03/31/17 Montelukast Na [Singulair -] 10 mg PO HS 03/31/17 [place]-3 Fatty Acids [[place]-3] 1,000 mg PO DAILY 03/31/17 Pramipexole Dihydrochloride 0.5 mg PO BID 03/31/17 [Mirapex -] Sertraline HCl 100 mg PO HS 03/31/17 Tiotropium [place] [Spiriva] 1 inh PO DAILY 03/31/17 Topiramate 100 mg PO BID 03/31/17 predniSONE [Deltasone -] See Taper PO DAILY #42 tablet 04/05/17 Insulin Lispro [Humalog] 0 unit SQ ASDIR 04/25/17 REVIEW OF SYSTEMS CONSTITUTIONAL: Absent: +fever, chills, diaphoresis, generalized weakness, +malaise, loss of appetite, weight change HEENT: Absent: rhinorrhea, nasal congestion, throat pain, throat swelling, difficulty swallowing, mouth swelling, ear pain, eye pain, visual changes CARDIOVASCULAR: Absent: chest pain, syncope, palpitations, irregular heart rate, lightheadedness , peripheral edema RESPIRATORY: Absent: +dry cough, +shortness of breath, dyspnea with exertion, orthopnea, wheezing, stridor, hemoptysis GASTROINTESTINAL: Absent: abdominal pain, abdominal distension, +nausea, vomiting, +diarrhea, constipation, melena, hematochezia GENITOURINARY: Absent: dysuria, frequency, urgency, hesitancy, hematuria, flank pain, genital pain MUSCULOSKELETAL: Absent: myalgia, arthralgia, joint swelling, back pain, neck pain SKIN: Absent: rash, itching, pallor HEMATOLOGIC/IMMUNOLOGIC: Absent: easy bleeding, easy bruising, lymphadenopathy, frequent infections ENDOCRINE: Absent: unexplained weight gain, unexplained weight loss, heat intolerance, cold intolerance NEUROLOGIC: Absent: headache, focal weakness or paresthesias, dizziness, unsteady gait, seizure, mental status changes, bladder or bowel incontinence PSYCHIATRIC: Absent: anxiety, depression, suicidal or homicidal ideation, hallucinations. PHYSICAL EXAMINATION Vital Signs - 24 hr 04/25/17 04/25/17 04/25/17 11:15 13:11 16:14 Temperature 99 F Pulse Rate 88 85 Pulse Rate [ 90 Apical] Respiratory 22 20 Rate Blood Pressure 145/69 Blood Pressure 130/70 [Left Arm] O2 Sat by Pulse 97 100 100 Oximetry (%) 04/25/17 04/25/17 17:21 18:17 Temperature 98.3 F Pulse Rate 89 Pulse Rate [ Apical] Respiratory 18 22 Rate Blood Pressure 136/74 Blood Pressure 123/64 [Left Arm] O2 Sat by Pulse 98 Oximetry (%) GENERAL: Awake, alert, and fully oriented, in no acute distress. HEAD: Normal with no signs of trauma. EYES: Pupils equal, round and reactive to light, Extraocular movements intact, sclera anicteric, conjunctiva clear. No lid lag. EARS, NOSE, THROAT: Moist mucous membranes, mild erythema in posterior oropharynx erythematous oropharynx . NECK: Supple without lymphadenopathy, JVD, or masses. LUNGS: Decreased breath sounds throughout, mild wheezing bilaterally. No crackles or rhonchi appreciated HEART: +s1s2 RRR, distant heart sounds 2/2 to body habitus ABDOMEN: +Obese, Soft, nontender, not distended, normoactive bowel sounds, no guarding, no rebound, no masses. MUSCULOSKELETAL: No CVA tenderness. UPPER EXTREMITIES: 2+ pulses, warm, well-perfused. No cyanosis. No clubbing. No peripheral edema. LOWER EXTREMITIES: 2+ pulses, warm, well-perfused. No calf tenderness. trace peripheral edema. NEUROLOGICAL: Cranial nerves II-XII intact. Strength 5/5 in bilateraly upper and lower extremities, sensation intact b/l, 1-2+ reflexes b/l, Normal speech, finger to nose intact, gait not observed. PSYCHIATRIC: Cooperative. Good eye contact. Appropriate mood and affect. SKIN: Warm, dry Laboratory Results - last 24 hr 04/25/17 04/25/17 04/25/17 13:00 13:45 13:45 WBC 10.0 D RBC 3.71 Hgb 11.4 Hct 34.4 MCV 92.8 MCH 30.8 MCHC 33.2 RDW 16.3 H Plt Count 298 MPV 8.2 Neutrophils % 68.2 Lymphocytes % 28.4 D Monocytes % 3.0 L Eosinophils % 0.2 D Basophils % 0.2 PT with INR INR PTT (Actin FS) Anticoagulation Therapy No Result Required. Puncture Site Right radial ABG pH 7.40 ABG pCO2 at Pt Temp 40.5 ABG pO2 at Pt Temp 85.8 ABG HCO3 24.6 ABG O2 Sat (Measured) 96.1 ABG O2 Content 15.1 ABG Base Excess 0.4 Luis Test Positive Carboxyhemoglobin 1.2 Methemoglobin 1.4 O2 Delivery Device No Result Required. Oxygen Flow Rate Yes Vent Mode No Result Required. Vent Rate No Result Required. Mechanical Rate No Result Required. Pressure Support Vent No Result Required. Sodium 140 Potassium 3.9 Chloride 101 Carbon Dioxide 25 Anion Gap 14 BUN 13 Creatinine 1.0 Creat Clearance w eGFR 56.37 Random Glucose 165 H Calcium 8.7 Phosphorus Magnesium Total Bilirubin 0.3 D AST 17 ALT 31 Alkaline Phosphatase 122 H Troponin I B-Natriuretic Peptide Total Protein 7.3 Albumin 3.5 TSH 0.90 Blood Type Antibody Screen 04/25/17 04/25/17 04/25/17 13:45 13:45 13:45 WBC RBC Hgb Hct MCV MCH MCHC RDW Plt Count MPV Neutrophils % Lymphocytes % Monocytes % Eosinophils % Basophils % PT with INR 11.70 INR 1.04 PTT (Actin FS) 29.4 Anticoagulation Therapy Puncture Site ABG pH ABG pCO2 at Pt Temp ABG pO2 at Pt Temp ABG HCO3 ABG O2 Sat (Measured) ABG O2 Content ABG Base Excess Luis Test Carboxyhemoglobin Methemoglobin O2 Delivery Device Oxygen Flow Rate Vent Mode Vent Rate Mechanical Rate Pressure Support Vent Sodium Potassium Chloride Carbon Dioxide Anion Gap BUN Creatinine Creat Clearance w eGFR Random Glucose Calcium Phosphorus 2.6 Magnesium 2.2 Total Bilirubin AST ALT Alkaline Phosphatase Troponin I 0.02 B-Natriuretic Peptide 66.59 Total Protein Albumin TSH Blood Type O POSITIVE Antibody Screen Negative ASSESSMENT/PLAN: 62 year old female with past medical history of COPD on three liters of home oxygen, CAD status post cath with no stent placed, hypertension, hyperlipidemia , lupus, DANY on CPAP, type II diabetes, hypothyroidism, seizure disorder, and morbid obesity presented with shortness of breath, dry cough, subjective fevers , and lower extremity edema. #Acute on chronic copd exacerbation, mild -Received vanco/levaquin and 125 mg medrol in ED -Duonebs standing and prn q6h -Mederol 40 mg bid IV -Azithromycin 250 mg po daily -continue symbicort/singular 10 po hs -Hold spiriva -Pulmonary consult, Dr. Hyde -O2 as needed -Influenza swab #DANY -Continue home cpap at night #CAD -Continue asa 81 #HTN -Continue lasix 40 mg daily and losartan 50 mg daily #HLD -continue lipitor 10 mg po hs #Seizure d/o -Continue seizure medications, carbamazapine 300 mg po bid, topomax 100 mg po bid #SLE -continue plaquenil 200 mg po bid, pramipaxole 0.5 mg po bid #DM -ISS achs -Levemir 22 units sq am -BGM achs #hypothyroidism -continue synthroid 50 mcg po daily #FEN/GI -No IVF -Monitor BMP -Diabetic/sodium diet #PPx -Protonix 40 mg po daily -heparin 5000 u sq tid #Dispo: Inpatient admission Visit type - Emergency Visit Emergency Visit: Yes ED Registration Date: 04/25/17 Care time: The patient presented to the Emergency Department on the above date and was hospitalized for further evaluation of their emergent condition. - New Patient This patient is new to me today: Yes Date on this admission: 04/25/17 - Critical Care Critical Care patient: No Hospitalist Screening - Colonoscopy Questionnaire Colonoscopy Questionnaire: Colonoscopy Questionnaire - Patient: 50 - 75 years old and never had a screening colonoscopy: Unknown History of colon or rectal polyps, or CA: Unknown History of IBD, Crohn's disease or UC: Unknown History of abdominal radiation therapy as a child: Unknown - Relative: 1 with colon or rectal CA, or polyps at age 60 or younger: Unknown Colon or rectal CA diagnosed at age 45 or younger: Unknown Multiple relatives with colon or rectal CA: Unknown - Outcome: Screening Result: Negative Screen
[2017-04-25 19:00] VITALS: BMI 46.3
[2017-04-25] MEDS ORDERED: LEVOTHYROXINE NA 50 MCG TABLET (FP) PO SCH (19:00)
[2017-04-25] MEDS ORDERED: ALBUTEROL SO4 2.5/IPRATROPIUM 0.5 INH SOL 3 ML VIAL.NEB. NEB PRN (19:02)
--- NOTE | 2017-04-25 19:25 | PN ---
Teaching Attending Note Name of Resident: Milton Zimmerman ATTENDING PHYSICIAN STATEMENT I saw and evaluated the patient. I reviewed the resident's note and discussed the case with the resident. I agree with the resident's findings and plan as documented. SUBJECTIVE: CC: SOB HPI: SOB for few days , subjective fever. no sick contact. sore throat. non productive cough . L sided cp under breast with cough . she was admited for COPD exacerbation last month and dc on prednisone taper . now sh eis down to her chronic maintenance dose of 10 mg daily. in ER cxray was rotated withpoor quality, repeat ordered . she was given Abx and steroids OBJECTIVE: NAD , AAOx3 . symmetric face , round equal pupils , no facial droop. MMM, No JVD CV: RRR, distant heart sound Lungs: poor air entry . no wheezes . Abd: obese , soft, NT, ND , NL BS Ext: no edema or erythema Neuro : symmetric face , round equal pupils , no facial droop. strength 5/5 in upper and lower ext, proximally and distally. reflexes 2+ kne jerk and biceps b/ l ASSESSMENT AND PLAN: 62 y/o lady with CAD, D CHF, COPD , on 3 L of o2, DANY on CPAP , SLE , HTN, hypothyroidism, seizure, gastric banding , Morbid obesity who presented with SOB , sore throat , and cough . She was found to have COPD exacerbation 1- Acute COPD exacerbation : clinically she does not have PNA. cxray with rotation , and unable to evaluate L base , but no clinical sx of PNA. - NEbs - solu-Medrol - hold spiriva while on Nebs - cont symbicort and singular - azithro x 3 days for antiinflammatory effect - 3 L of O2 - consult pulm, her primary business process representative - check flu swab 2- CAD, D CHF : cont losartan , ASA. 3- seizure: cont meds 4- h/o Lupus : cont meds 5- Dm : levemir and SSI DVT and GI prophylaxis
[2017-04-25] MEDS ORDERED: PATIENT'S OWN MEDICATION (NON-FORMULARY) (Sertraline Hcl [Sertraline Hcl] 100 MG) PO SCH (22:00)
[2017-04-25] MEDS ORDERED: PATIENT'S OWN MEDICATION (NON-FORMULARY) (Carbamazepine [Carbamazepine Er] 300 MG) PO SCH (22:00)
[2017-04-25] MEDS: HEPARIN NA (PORCINE) 5,000 UNITS/ML 1ML VIAL SQ SCH (22:06)
[2017-04-25] MEDS: PANTOPRAZOLE 40 MG TABLET (FP) PO SCH (22:07)
[2017-04-25] MEDS: PRAMIPEXOLE DIHYDROCHLORIDE 0.5 MG TABLET PO SCH (22:08)
[2017-04-25] MEDS: HYDROXYCHLOROQUINE SO4 200 MG TABLET (FP) PO SCH (22:08)
[2017-04-25] MEDS: carBAMazepine 200 MG TABLET PO SCH (22:09)
[2017-04-25] MEDS: TOPIRAMATE 100 MG TABLET PO SCH (22:13)
[2017-04-25] MEDS: BUDESONIDE/FORMETEROL FUMARATE 160/4.5 mcg INHALER IH SCH (22:13)
[2017-04-25] MEDS: ATORVASTATIN CA 10 MG TABLET (FP) PO SCH (22:16)
[2017-04-25] MEDS: MONTELUKAST NA 10 MG TABLET PO SCH (22:16)
[2017-04-25] MEDS: methylPREDNISolone NA SUCC 40 MG/1 ML VIAL IVPUSH SCH (22:17)
[2017-04-25] MEDS: SERTRALINE HCL 50 MG TABLET (FP) PO SCH (22:36)
[2017-04-25] MEDS: INSULIN SLIDING SCALE (NOVOLOG) 1 VIAL SQ SCH (23:02)
[2017-04-26] MEDS: HEPARIN NA (PORCINE) 5,000 UNITS/ML 1ML VIAL SQ SCH ×3 (06:35→22:56)
[2017-04-26] MEDS: INSULIN DETEMIR 100 UNITS/ML MDV SQ SCH (06:37)
[2017-04-26] MEDS: ALBUTEROL SO4 2.5/IPRATROPIUM 0.5 INH SOL 3 ML VIAL.NEB. NEB SCH ×5 (06:40→20:45)
[2017-04-26] MEDS: INSULIN SLIDING SCALE (NOVOLOG) 1 VIAL SQ SCH ×4 (06:40→22:57)
[2017-04-26] MEDS: LEVOTHYROXINE NA 50 MCG TABLET (FP) PO SCH (06:42)
[2017-04-26] MEDS ORDERED: INSULIN GLARGINE HUM REC ANLOG 22 UNIT SQ SCH (07:00)
[2017-04-26] MEDS ORDERED: [UNRECOGNIZED DRUG - OTHER] SQ SCH (07:00)
[2017-04-26 07:29] LABS: BASO % 0.9 % (0-2.0); EOS % 0.1 % (0-4.5); HEMATOCRIT 33.4 % (32.4-45.2); HEMOGLOBIN 11.1 GM/dL (10.7-15.3); LYMPH % 18.4 % (8-40); MCH 30.9 pg (25.7-33.7); MCHC 33.1 g/dl (32.0-36.0); MEAN CELL VOLUME 93.2 fl (80-96); MEAN PLT VOLUME 8.1 fl (7.5-11.1); MONO % 4.8 % (3.8-10.2); NEUT % 75.8 % (42.8-82.8); PLATELET COUNT 275 K/MM3 (134-434); RBC 3.58 M/mm3 (3.60-5.2); RDW 16.6 % (11.6-15.6)
[2017-04-26 07:48] LABS: ANION GAP 11 (8-16); BLOOD UREA NITROGEN 15 mg/dL (7-18); CALCIUM 8.8 mg/dL (8.5-10.1); CHLORIDE 102 mmol/L (98-107); CO2 26 mmol/L (21-32); CREATININE 1.1 mg/dL (0.55-1.02); GLUCOSE,RANDOM 213 mg/dL (74-106); POTASSIUM 4.2 mmol/L (3.5-5.1); SODIUM 139 mmol/L (136-145)
[2017-04-26] MEDS ORDERED: PT OWN MED DRAWER 7, Y5N ONE ×3 (10:50→23:16)
[2017-04-26] MEDS: AZITHROMYCIN 250 MG TABLET PO SCH (10:58)
[2017-04-26] MEDS: LOSARTAN POTASSIUM 50 MG TABLET (FP) PO SCH (10:58)
[2017-04-26] MEDS: methylPREDNISolone NA SUCC 40 MG/1 ML VIAL IVPUSH SCH ×2 (10:58→22:58)
[2017-04-26] MEDS: HYDROXYCHLOROQUINE SO4 200 MG TABLET (FP) PO SCH ×2 (10:58→22:58)
[2017-04-26] MEDS: FUROSEMIDE 40 MG TABLET (FP) PO SCH (10:58)
[2017-04-26] MEDS: PANTOPRAZOLE 40 MG TABLET (FP) PO SCH (10:58)
[2017-04-26] MEDS: BUDESONIDE/FORMETEROL FUMARATE 160/4.5 mcg INHALER IH SCH ×2 (10:58→22:58)
[2017-04-26] MEDS: TOPIRAMATE 100 MG TABLET PO SCH ×2 (10:59→22:59)
[2017-04-26] MEDS: carBAMazepine 200 MG TABLET PO SCH ×2 (10:59→22:58)
[2017-04-26] MEDS: PRAMIPEXOLE DIHYDROCHLORIDE 0.5 MG TABLET PO SCH ×2 (11:02→22:57)
--- NOTE | 2017-04-26 12:11 | EKG ---
Test Reason : Blood Pressure : / mmHG Vent. Rate : 085 BPM Atrial Rate : 085 BPM P-R Int : 156 ms QRS Dur : 082 ms QT Int : 370 ms P-R-T Axes : 033 -18 050 degrees QTc Int : 440 ms NORMAL SINUS RHYTHM VOLTAGE CRITERIA FOR LEFT VENTRICULAR HYPERTROPHY ABNORMAL ECG WHEN COMPARED WITH ECG OF 25-APR-2017 12:04, NO SIGNIFICANT CHANGE WAS FOUND PATIENT SITTING UP IN BED DURING EKG DUE TO COUGHING Confirmed by MD TRACI, LEONEL ([id number]) on 04/26/2017 12:10:30 PM Referred By: Nakita RAMEY Confirmed By:LEONEL AVILES MD
--- NOTE | 2017-04-26 14:46 | CON.PULM ---
Consult Reason for Consultation:: dyspnea - History of Present Illness Chief Complaint: shortness of breath History of Present Illness: Several day history of increased dyspnea and non-productive. Patient had a sore throat, cough and diarrhea which started 2 days prior to admission. Patient has a history of COPD, Lupus, seizure disorder, DAYN and uses CPAP ( AutoPAp) at home and O2 at home. She denies recent chest pain or palpitations or fever. No hemoptysis. She was hospitalized in February and March 2017 with exacerbation COPD. She has been Prednisone in varying doses for several months. She had been tapered down to 10 mg daily recently. - History Source History Provided By: Patient, Medical Record - Past Medical History COPY READER: Yes: Seizure, Syncope Cardio/Vascular: Yes: CAD, HTN, Hyperlipdemia Pulmonary: Yes: Asthma, COPD, O2 Dependent, Sleep Apnea, Other (uses NIPPV at night) ...LMP: 03/18/01 ...: No Rheumatology: Yes: Lupus Endocrine: Yes: Diabetes Mellitus - Past Surgical History Past Surgical History: Yes: Cataract Removal, Cholecystectomy, , Joint Replacement (Right total hip replacement), Tonsillectomy - Alcohol/Substance Use Hx Alcohol Use: No History of Substance Use: reports: None - Smoking History Smoking history: Former smoker Have you smoked in the past 12 months: No Aproximately how many cigarettes per day: 10 If you are a former smoker, when did you quit?: 20 years ago - Social History Usual Living Arrangement: With Spouse ADL: Independent History of Recent Travel: No Home Medications - Allergies Allergies/Adverse Reactions: Allergies Allergy/AdvReac Type Severity Reaction Status Date / Time gabapentin [From Neurontin] Allergy PALPITATIONS, Verified 04/25/17 11:15 PASSES OUT Penicillins Allergy TONGUE Verified 04/25/17 11:15 Swelling phenytoin sodium Allergy diarrhea/vo Verified 04/25/17 11:15 [From Dilantin] miting phenytoin sodium extended Allergy Verified 04/25/17 11:15 [From Dilantin] theophylline [Theophylline] Allergy diarrhea,SE Verified 04/25/17 11:15 IZURES - Home Medications Home Medications: Ambulatory Orders Albuterol Sulfate [Proair Hfa] 1 puff IH Q4H PRN 03/31/17 Atorvastatin Ca [Lipitor] 10 mg PO HS 03/31/17 Biotin 5,000 mcg PO DAILY 03/31/17 Budesonide/Formeterol Fumarate [SYMBICORT 160/4.5mcg -] 2 inh PO BID 03/31/17 Carbamazepine [Carbamazepine ER] 300 mg PO BID 03/31/17 Exenatide [Byetta] 10 mcg SQ BID 03/31/17 Furosemide [Lasix -] 40 mg PO DAILY 03/31/17 Glipizide [Glipizide Xl] 10 mg PO BID 03/31/17 Hydroxychloroquine So4 [Plaquenil -] 200 mg PO BID 03/31/17 Insulin Glargine,Hum.rec.anlog [Lantus] 22 unit SQ AM 03/31/17 Levothyroxine [Synthroid -] 50 mcg PO ASDIR 03/31/17 Losartan Potassium 50 mg PO DAILY 03/31/17 Metformin HCl 500 mg PO BID 03/31/17 Montelukast Na [Singulair -] 10 mg PO HS 03/31/17 [place]eswick-3 Fatty Acids [Keswick-3] 1,000 mg PO DAILY 03/31/17 Pramipexole Dihydrochloride [Mirapex -] 0.5 mg PO BID 03/31/17 Sertraline HCl 100 mg PO HS 03/31/17 Tiotropium [place] [Spiriva] 1 inh PO DAILY 03/31/17 Topiramate 100 mg PO BID 03/31/17 predniSONE [Deltasone -] See Taper PO DAILY #42 tablet 04/05/17 Insulin Lispro [Humalog] 0 unit SQ ASDIR 04/25/17 Omeprazole 40 mg PO DAILY 04/26/17 Physical Exam Vital Sings: Vital Signs Temperature 98 F 04/26/17 08:54 Pulse Rate 86 04/26/17 08:54 Respiratory Rate 24 04/26/17 08:54 Blood Pressure 137/76 04/26/17 08:54 O2 Sat by Pulse Oximetry (%) 98 04/25/17 17:21 SaO2 97 currently on 2 LO2 by my measurement Constitutional: Yes: No Distress Eyes: No: Sclera Icterus HENT: Yes: Atraumatic, Normocephalic Neck: Yes: Supple, Trachea Midline Cardiovascular: Yes: Regular Rate and Rhythm. No: JVD Respiratory: Yes: Cough (frequent non-productive cough), Diminished (decreased intensity breath sounds bilaterally) ...Clubbing: No Gastrointestinal: Yes: Soft. No: Hepatomegaly, Splenomegaly, Tenderness Edema: No Neurological: Yes: Alert, Oriented Labs: CBC, BMP 04/26/17 06:30 04/26/17 06:30 ABG Results ABG pH 7.40 (7.35-7.45) 04/25/17 13:00 ABG pCO2 at Pt Temp 40.5 mmHg (35-45) 04/25/17 13:00 ABG pO2 at Pt Temp 85.8 mmHg (80-100) 04/25/17 13:00 ABG HCO3 24.6 meq/L (22-26) 04/25/17 13:00 ABG O2 Sat (Measured) 96.1 % (90-98.9) 04/25/17 13:00 ABG O2 Content 15.1 % vol (15-22) 04/25/17 13:00 ABG Base Excess 0.4 meq/l (-2-2) 04/25/17 13:00 Imaging - Results Chest X-ray: Report Reviewed, Image Reviewed (PA and Lateral today: MARY, no CHF Portable on admission: roatated film, technically poor) Problem List - Problems (1) Obstructive sleep apnea (adult) (pediatric) Code(s): G47.33 - OBSTRUCTIVE SLEEP APNEA (ADULT) (PEDIATRIC) (2) COPD exacerbation Code(s): J44.1 - CHRONIC OBSTRUCTIVE PULMONARY DISEASE W (ACUTE) EXACERBATION (3) Morbid (severe) obesity due to excess calories Code(s): E66.01 - MORBID (SEVERE) OBESITY DUE TO EXCESS CALORIES (4) SLE (systemic lupus erythematosus) Code(s): M32.9 - SYSTEMIC LUPUS ERYTHEMATOSUS, UNSPECIFIED (5) Seizure disorder Code(s): G40.909 - EPILEPSY, UNSP, NOT INTRACTABLE, WITHOUT STATUS EPILEPTICUS Assessment/Plan Acute exacerbation COPD-still with significant cough and dyspnea. CXR negative. DANY-stable on AutoPap Plan; Systemic steroids with tapering over the next few days O2 to maintain SaO2 greater than 90 AutoPap (patient is using her own mask and AutoPap machine Bronchodilators Bedside Spirometry Thank you for referring this patient for consultation
--- NOTE | 2017-04-26 15:48 | PN ---
Physical Exam: SUBJECTIVE: Patient seen and examined No acute events overnight. Patient feels better this morning. Continues to have dry chronic cough OBJECTIVE: Vital Signs Period Temp Pulse Resp BP Sys/Oconnell Pulse Ox Last 24 Hr 97.8 F-98.9 F 80-93 18-24 112-144/58-76 98-100 GENERAL: Awake, alert, and fully oriented, in no acute distress. HEAD: Normal with no signs of trauma. EYES: Pupils equal, round and reactive to light, Extraocular movements intact, sclera anicteric, conjunctiva clear. No lid lag. EARS, NOSE, THROAT: Moist mucous membranes, mild erythema in posterior oropharynx erythematous oropharynx . NECK: Supple without lymphadenopathy, JVD, or masses. LUNGS: Decreased breath sounds throughout, poor air entry & mild wheezing bilaterally. No crackles or rhonchi appreciated HEART: +s1s2 RRR, distant heart sounds 2/2 to body habitus ABDOMEN: +Obese, Soft, nontender, not distended, normoactive bowel sounds, no guarding, no rebound, no masses. MUSCULOSKELETAL: No CVA tenderness. UPPER EXTREMITIES: 2+ pulses, warm, well-perfused. No cyanosis. No clubbing. No peripheral edema. LOWER EXTREMITIES: 2+ pulses, warm, well-perfused. No calf tenderness. trace peripheral edema. NEUROLOGICAL: Cranial nerves II-XII intact. Strength 5/5 in bilateraly upper and lower extremities, sensation intact b/l, 1-2+ reflexes b/l, Normal speech, finger to nose intact, gait not observed. PSYCHIATRIC: Cooperative. Good eye contact. Appropriate mood and affect. SKIN: Warm, dry Laboratory Results - last 24 hr 04/25/17 04/26/17 04/26/17 22:45 05:55 06:30 WBC 10.0 RBC 3.58 L Hgb 11.1 Hct 33.4 MCV 93.2 MCH 30.9 MCHC 33.1 RDW 16.6 H Plt Count 275 MPV 8.1 Neutrophils % 75.8 Lymphocytes % 18.4 D Monocytes % 4.8 Eosinophils % 0.1 Basophils % 0.9 D Sodium Potassium Chloride Carbon Dioxide Anion Gap BUN Creatinine POC Glucometer 155 243 Random Glucose Calcium Creatine Kinase Troponin I 04/26/17 04/26/17 04/26/17 06:30 06:30 12:50 WBC RBC Hgb Hct MCV MCH MCHC RDW Plt Count MPV Neutrophils % Lymphocytes % Monocytes % Eosinophils % Basophils % Sodium 139 Potassium 4.2 Chloride 102 Carbon Dioxide 26 Anion Gap 11 BUN 15 Creatinine 1.1 H POC Glucometer 184 Random Glucose 213 H Calcium 8.8 Creatine Kinase 77 Cancelled Troponin I < 0.02 Cancelled 04/26/17 13:20 WBC RBC Hgb Hct MCV MCH MCHC RDW Plt Count MPV Neutrophils % Lymphocytes % Monocytes % Eosinophils % Basophils % Sodium Potassium Chloride Carbon Dioxide Anion Gap BUN Creatinine POC Glucometer Random Glucose Calcium Creatine Kinase 82 Troponin I < 0.02 Active Medications Generic Name Dose Route Start Last Admin Trade Name Freq PRN Reason Stop Dose Admin Albuterol/Ipratropium 1 amp 04/26/17 00:00 04/26/17 06:40 Duoneb - NEB 1 amp QIDR DONTA Administration Albuterol/Ipratropium 1 amp 04/25/17 19:02 04/25/17 19:28 Duoneb - NEB 1 amp Q6H PRN Administration SHORT OF BREATH/WHEEZING Atorvastatin Calcium 10 mg 04/25/17 22:00 04/25/17 22:16 Lipitor - PO 10 mg HS DONTA Administration Azithromycin 250 mg 04/26/17 10:00 04/26/17 10:58 Zithromax - PO 250 mg DAILY DONTA Administration Budesonide/Formoterol Fumarate 2 puff 04/25/17 22:00 04/26/17 10:58 Symbicort 160/4.5mcg - IH 2 puff BID DONTA Administration Carbamazepine 300 mg 04/25/17 22:00 04/26/17 10:59 Tegretol - PO 300 mg BID DONTA Administration Furosemide 40 mg 04/26/17 10:00 04/26/17 10:58 Lasix - PO 40 mg DAILY DONTA Administration Heparin Sodium (Porcine) 5,000 unit 04/25/17 22:00 04/26/17 06:35 Heparin - SQ 5,000 unit TID DONTA Administration Hydroxychloroquine Sulfate 200 mg 04/25/17 22:00 04/26/17 10:58 Plaquenil - PO 200 mg BID DONTA Administration Insulin Aspart 1 vial 04/25/17 22:00 04/26/17 13:07 Novolog Vial Sliding Scale - SQ Not Given ACHS [facility] Protocol Insulin Detemir 22 units 04/26/17 07:00 04/26/17 06:37 Levemir Vial SQ 22 units AM DONTA Administration Levothyroxine Sodium 50 mcg 04/26/17 07:00 04/26/17 06:42 Synthroid - PO 50 mcg DAILY@0700 DONTA Administration Losartan Potassium 50 mg 04/26/17 10:00 04/26/17 10:58 Cozaar - PO 50 mg DAILY DONTA Administration Methylprednisolone Sodium Succinate 40 mg 04/25/17 22:00 04/26/17 10:58 Solu-Medrol - IVPUSH 40 mg BID DONTA Administration Montelukast Sodium 10 mg 04/25/17 22:00 04/25/17 22:16 Singulair - PO 10 mg HS DONTA Administration Pantoprazole Sodium 40 mg 04/25/17 19:00 04/26/17 10:58 Protonix - PO 40 mg DAILY DONTA Administration Pramipexole Dihydrochloride 0.5 mg 04/25/17 22:00 04/26/17 11:02 Mirapex - PO 0.5 mg BID DONTA Administration Sertraline HCl 100 mg 04/25/17 22:00 04/25/17 22:36 Zoloft - PO 100 mg HS DONTA Administration Topiramate 100 mg 04/25/17 22:00 04/26/17 10:59 Topamax - PO 100 mg BID DONTA Administration Microbiology 04/26/17 01:15 Influenza Types A,B Antigen (SERVANDO) - Final Nasopharyngeal Swab - Final ASSESSMENT/PLAN: 62 year old female with past medical history of COPD on three liters of home oxygen, CAD status post cath with no stent placed, hypertension, hyperlipidemia , lupus, DANY on CPAP, type II diabetes, hypothyroidism, seizure disorder, and morbid obesity presented with shortness of breath, dry cough, subjective fevers , and lower extremity edema. #Acute on chronic copd exacerbation, mild -Received vanco/levaquin and 125 mg medrol in ED -Duonebs standing and prn q6h -Mederol 40 mg bid IV, taper when tolerated. Day 2 -Azithromycin 250 mg po daily x 3 days. Tomorrow will be last day -continue symbicort/singular 10 po hs -Hold spiriva -Pulmonary consult, Dr. Hyde -O2 as needed -Influenza swab negative #DANY -Continue home cpap at night #CAD -Continue asa 81 #HTN -Continue lasix 40 mg daily and losartan 50 mg daily #Diastolic CHF -continue lasix 40 mg daily #HLD -continue lipitor 10 mg po hs #Seizure d/o -Continue seizure medications, carbamazapine 300 mg po bid, topomax 100 mg po bid #SLE -continue plaquenil 200 mg po bid, pramipaxole 0.5 mg po bid -receives 12.5 mg methotrexate on Tuesday mornings #DM -ISS achs -Levemir 22 units sq am -BGM achs #hypothyroidism -continue synthroid 50 mcg po daily #FEN/GI -No IVF -Monitor BMP -Diabetic/sodium diet #PPx -Protonix 40 mg po daily -heparin 5000 u sq tid #Dispo: Inpatient admission Visit type - Emergency Visit Emergency Visit: Yes ED Registration Date: 04/25/17 Care time: The patient presented to the Emergency Department on the above date and was hospitalized for further evaluation of their emergent condition. - New Patient This patient is new to me today: No - Critical Care Critical Care patient: No
--- NOTE | 2017-04-26 18:28 | PN ---
Teaching Attending Note Name of Resident: Milton Zimmerman ATTENDING PHYSICIAN STATEMENT I saw and evaluated the patient. I reviewed the resident's note and discussed the case with the resident. I agree with the resident's findings and plan as documented. SUBJECTIVE: No fever or chills, SOB is better today .. cont with cough . OBJECTIVE: NAD CV: RRR, distant heart sound Lungs: slightly improved air entry but still restricted air movement . minimal wheezing Ext: no edema or erythema ASSESSMENT AND PLAN: 62 y/o lady with CAD, D CHF, COPD , on 3 L of o2, DANY on CPAP , SLE , HTN, hypothyroidism, seizure, gastric banding , Morbid obesity who presented with SOB , sore throat , and cough . She was found to have COPD exacerbation 1- Acute COPD exacerbation : slightly better. No PNA - cxray showe dretrocardiac density onlaterla film, seen on laterla film form . Ct form 04/03 did not show any pulm masses or infilrates. will d/w rad in am - cont medrol ( day 2 on 40 BID ) - cont Nebs and inhalers - hold spiriva - cont singular - cont O2 and HS CPAP - Pulm recs pending . appreciate help 2- CAD, D CHF : cont losartan , ASA. monitor renal function 3- seizure: cont meds 4- h/o Lupus : cont meds 5- Dm : levemir and SSI DVT and GI prophylaxis
[2017-04-26] MEDS: ATORVASTATIN CA 10 MG TABLET (FP) PO SCH (22:57)
[2017-04-26] MEDS: MONTELUKAST NA 10 MG TABLET PO SCH (22:58)
[2017-04-26] MEDS: SERTRALINE HCL 50 MG TABLET (FP) PO SCH (22:59)
[2017-04-27] MEDS: INSULIN SLIDING SCALE (NOVOLOG) 1 VIAL SQ SCH ×4 (06:43→22:19)
[2017-04-27] MEDS: INSULIN DETEMIR 100 UNITS/ML MDV SQ SCH (06:43)
[2017-04-27] MEDS: HEPARIN NA (PORCINE) 5,000 UNITS/ML 1ML VIAL SQ SCH ×3 (06:44→22:19)
[2017-04-27] MEDS: LEVOTHYROXINE NA 50 MCG TABLET (FP) PO SCH (06:44)
[2017-04-27] MEDS: METHOTREXATE 2.5 MG TABLET PO SCH (06:44)
[2017-04-27 07:44] LABS: ANION GAP 15 (8-16); BLOOD UREA NITROGEN 17 mg/dL (7-18); CALCIUM 8.8 mg/dL (8.5-10.1); CHLORIDE 102 mmol/L (98-107); CO2 22 mmol/L (21-32); CREATININE 1.1 mg/dL (0.55-1.02); GLUCOSE,RANDOM 280 mg/dL (74-106); POTASSIUM 4.4 mmol/L (3.5-5.1); SODIUM 139 mmol/L (136-145)
[2017-04-27] MEDS: ALBUTEROL SO4 2.5/IPRATROPIUM 0.5 INH SOL 3 ML VIAL.NEB. NEB SCH ×2 (08:30→12:00)
--- NOTE | 2017-04-27 08:38 | PN ---
<Milton Zimmerman - Last Filed: 04/27/17 16:38> Physical Exam: SUBJECTIVE: Patient seen and examined No acute events overnight. Patient feels better this morning. She continues to have dry chronic cough with some sputum production. Patient denies fever, chills , chest pain, abdominal pain. OBJECTIVE: Vital Signs Period Temp Pulse Resp BP Sys/Oconnell Pulse Ox Last 24 Hr 98 F-99.6 F 83-811 20-24 107-137/46-76 100 GENERAL: Awake, alert, and fully oriented, in no acute distress. HEAD: Normal with no signs of trauma. EYES: Pupils equal, round and reactive to light, Extraocular movements intact, sclera anicteric, conjunctiva clear. No lid lag. EARS, NOSE, THROAT: Moist mucous membranes, mild erythema in posterior oropharynx. NECK: Supple without lymphadenopathy, JVD, or masses. LUNGS: Decreased breath sounds throughout, poor air exchange & increased wheezing bilaterally. No crackles or rhonchi appreciated HEART: +s1s2 RRR, distant heart sounds 2/2 to body habitus ABDOMEN: +Obese, Soft, nontender, not distended, normoactive bowel sounds, no guarding, no rebound, no masses. MUSCULOSKELETAL: No CVA tenderness. UPPER EXTREMITIES: 2+ pulses, warm, well-perfused. No cyanosis. No clubbing. No peripheral edema. LOWER EXTREMITIES: 2+ pulses, warm, well-perfused. No calf tenderness. trace peripheral edema. NEUROLOGICAL: Cranial nerves II-XII intact. Strength 5/5 in bilateraly upper and lower extremities, sensation intact b/l, 1-2+ reflexes b/l, Normal speech, finger to nose intact, gait not observed. PSYCHIATRIC: Cooperative. Good eye contact. Appropriate mood and affect. SKIN: Warm, dry Laboratory Results - last 24 hr 04/26/17 04/26/17 04/26/17 06:30 06:30 12:50 Sodium 139 Potassium 4.2 Chloride 102 Carbon Dioxide 26 Anion Gap 11 BUN 15 Creatinine 1.1 H POC Glucometer 184 Random Glucose 213 H Calcium 8.8 Creatine Kinase 77 Cancelled Troponin I < 0.02 Cancelled 04/26/17 04/26/17 04/26/17 13:20 16:43 21:46 Sodium Potassium Chloride Carbon Dioxide Anion Gap BUN Creatinine POC Glucometer 276 182 Random Glucose Calcium Creatine Kinase 82 Troponin I < 0.02 04/27/17 04/27/17 05:53 06:00 Sodium 139 Potassium 4.4 Chloride 102 Carbon Dioxide 22 Anion Gap 15 BUN 17 Creatinine 1.1 H POC Glucometer 277 Random Glucose 280 H Calcium 8.8 Creatine Kinase Troponin I Active Medications Generic Name Dose Route Start Last Admin Trade Name Freq PRN Reason Stop Dose Admin Albuterol/Ipratropium 1 amp 04/25/17 19:02 04/25/17 19:28 Duoneb - NEB 1 amp Q6H PRN Administration SHORT OF BREATH/WHEEZING Albuterol/Ipratropium 1 amp 04/26/17 16:45 04/26/17 20:45 Duoneb - NEB 1 amp RQID DONTA Administration Atorvastatin Calcium 10 mg 04/25/17 22:00 04/26/17 22:57 Lipitor - PO 10 mg HS DONTA Administration Azithromycin 250 mg 04/26/17 10:00 04/26/17 10:58 Zithromax - PO 04/27/17 23:59 250 mg DAILY DONTA Administration Budesonide/Formoterol Fumarate 2 puff 04/25/17 22:00 04/26/17 22:58 Symbicort 160/4.5mcg - IH 2 puff BID DONTA Administration Carbamazepine 300 mg 04/25/17 22:00 04/26/17 22:58 Tegretol - PO 300 mg BID DONTA Administration Furosemide 40 mg 04/26/17 10:00 04/26/17 10:58 Lasix - PO 40 mg DAILY DONTA Administration Heparin Sodium (Porcine) 5,000 unit 04/25/17 22:00 04/27/17 06:44 Heparin - SQ 5,000 unit TID DONTA Administration Hydroxychloroquine Sulfate 200 mg 04/25/17 22:00 04/26/17 22:58 Plaquenil - PO 200 mg BID DONTA Administration Insulin Aspart 1 vial 04/25/17 22:00 04/27/17 06:43 Novolog Vial Sliding Scale - SQ 4 units ACHS DONTA Administration Protocol Insulin Detemir 22 units 04/26/17 07:00 04/27/17 06:43 Levemir Vial SQ 22 units AM DONTA Administration Levothyroxine Sodium 50 mcg 04/26/17 07:00 04/27/17 06:44 Synthroid - PO 50 mcg DAILY@0700 DONTA Administration Losartan Potassium 50 mg 04/26/17 10:00 04/26/17 10:58 Cozaar - PO 50 mg DAILY DONTA Administration Methotrexate 12.5 mg 04/27/17 07:30 04/27/17 06:44 Mexate - PO 12.5 mg We@0730 DONTA Administration Methylprednisolone Sodium Succinate 40 mg 04/25/17 22:00 04/26/17 22:58 Solu-Medrol - IVPUSH 40 mg BID DONTA Administration Montelukast Sodium 10 mg 04/25/17 22:00 04/26/17 22:58 Singulair - PO 10 mg HS DONTA Administration Pantoprazole Sodium 40 mg 04/25/17 19:00 04/26/17 10:58 Protonix - PO 40 mg DAILY DONTA Administration Pramipexole Dihydrochloride 0.5 mg 04/25/17 22:00 04/26/17 22:57 Mirapex - PO 0.5 mg BID DONTA Administration Sertraline HCl 100 mg 04/25/17 22:00 04/26/17 22:59 Zoloft - PO 100 mg HS DONTA Administration Topiramate 100 mg 04/25/17 22:00 04/26/17 22:59 Topamax - PO 100 mg BID DONTA Administration ASSESSMENT/PLAN: 62 year old female with past medical history of COPD on three liters of home oxygen, CAD status post cath with no stent placed, hypertension, hyperlipidemia , lupus, DANY on CPAP, type II diabetes, hypothyroidism, seizure disorder, and morbid obesity presented with shortness of breath, dry cough, subjective fevers , and lower extremity edema. #Acute on chronic copd exacerbation, mild -Received vanco/levaquin and 125 mg medrol in ED -Duonebs standing and prn q6h -Increase Solu-Mederol to 60 mg q8hIV, taper when tolerated. Day 3 of steroids -Increase Azithromycin to 500 mg IV. Today is day 3. Tomorrow will be last day -continue symbicort/singular 10 po hs -Hold spiriva -Pulmonary consult, Dr. Hyde -O2 as needed -Influenza swab negative #DANY -Continue home cpap at night #CAD -Continue Asa 81 #HTN -Continue Lasix 40 mg daily and Losartan 50 mg daily #Diastolic CHF -Continue Lasix 40 mg daily #HLD -Continue Lipitor 10 mg po hs #Seizure d/o -Continue seizure medications, carbamazapine 300 mg po bid, topomax 100 mg po bid #SLE -continue plaquenil 200 mg po bid, pramipaxole 0.5 mg po bid -received 12.5 mg methotrexate on 04/27. Patient receives 12.5 mg MTX on every tue morning. #DM -ISS achs -Levemir 22 units sq am -BGM achs #hypothyroidism -continue synthroid 50 mcg po daily #FEN/GI -No IVF -Monitor BMP -Diabetic/sodium diet #PPx -Protonix 40 mg po daily -heparin 5000 u sq tid #Dispo: Inpatient admission Visit type - Emergency Visit Emergency Visit: Yes ED Registration Date: 04/25/17 Care time: The patient presented to the Emergency Department on the above date and was hospitalized for further evaluation of their emergent condition. - New Patient This patient is new to me today: No - Critical Care Critical Care patient: No <Getachew Thurston - Last Filed: 04/27/17 20:03> Physical Exam: Patient seen and examined with the resident. Patient is having difficulty with her breathing has hx of COPD. will increase her Solu Medrol to 60mg IV q8, continue with IV Zithromax, continue Duonebs, will continue to monitor her. Vital Signs Temperature 98.6 F 04/27/17 18:00 Pulse Rate 98 H 04/27/17 18:00 Respiratory Rate 18 04/27/17 18:00 Blood Pressure 108/63 04/27/17 18:00 O2 Sat by Pulse Oximetry (%) 97 04/27/17 09:00 CBCD WBC 10.0 K/mm3 (4.0-10.0) 04/26/17 06:30 RBC 3.58 M/mm3 (3.60-5.2) L 04/26/17 06:30 Hgb 11.1 GM/dL (10.7-15.3) 04/26/17 06:30 Hct 33.4 % (32.4-45.2) 04/26/17 06:30 MCV 93.2 fl (80-96) 04/26/17 06:30 MCHC 33.1 g/dl (32.0-36.0) 04/26/17 06:30 RDW 16.6 % (11.6-15.6) H 04/26/17 06:30 Plt Count 275 K/MM3 (134-434) 04/26/17 06:30 MPV 8.1 fl (7.5-11.1) 04/26/17 06:30 CMP Sodium 139 mmol/L (136-145) 04/27/17 06:00 Potassium 4.4 mmol/L (3.5-5.1) 04/27/17 06:00 Chloride 102 mmol/L (98-107) 04/27/17 06:00 Carbon Dioxide 22 mmol/L (21-32) 04/27/17 06:00 Anion Gap 15 (8-16) 04/27/17 06:00 BUN 17 mg/dL (7-18) 04/27/17 06:00 Creatinine 1.1 mg/dL (0.55-1.02) H 04/27/17 06:00 Creat Clearance w eGFR 56.37 (>60) 04/25/17 13:45 Random Glucose 280 mg/dL (74-106) H 04/27/17 06:00 Calcium 8.8 mg/dL (8.5-10.1) 04/27/17 06:00 Total Bilirubin 0.3 mg/dL (0.2-1.0) D 04/25/17 13:45 AST 17 U/L (15-37) 04/25/17 13:45 ALT 31 U/L (12-78) 04/25/17 13:45 Alkaline Phosphatase 122 U/L (45-117) H 04/25/17 13:45 Total Protein 7.3 g/dl (6.4-8.2) 04/25/17 13:45 Albumin 3.5 g/dl (3.4-5.0) 04/25/17 13:45 CARDIAC ENZYMES Creatine Kinase 82 IU/L (26-192) 04/26/17 13:20 Troponin I < 0.02 ng/ml (0.00-0.05) 04/26/17 13:20 Current Medications Generic Name Dose Route Start Last Admin Trade Name Freq PRN Reason Stop Dose Admin Albuterol Sulfate 1 amp 04/27/17 13:35 04/27/17 16:00 Ventolin 0.5% - NEB 1 amp Q4H PRN Administration SHORTNESS OF BREATH Atorvastatin Calcium 10 mg 04/25/17 22:00 04/26/17 22:57 Lipitor - PO 10 mg HS DONAT Administration Budesonide/Formoterol Fumarate 2 puff 04/25/17 22:00 04/27/17 09:44 Symbicort 160/4.5mcg - IH 2 puff BID DONTA Administration Carbamazepine 300 mg 04/25/17 22:00 04/27/17 09:45 Tegretol - PO 300 mg BID DONTA Administration Furosemide 40 mg 04/26/17 10:00 04/27/17 09:44 Lasix - PO 40 mg DAILY DONTA Administration Guaifenesin/Codeine Phosphate 5 ml 04/27/17 17:26 Robitussin Ac - PO TID PRN COUGH Heparin Sodium (Porcine) 5,000 unit 04/25/17 22:00 04/27/17 18:21 Heparin - SQ 5,000 unit TID DONTA Administration Hydroxychloroquine Sulfate 200 mg 04/25/17 22:00 04/27/17 09:45 Plaquenil - PO 200 mg BID DONTA Administration Azithromycin 500 mg/ Dextrose 250 mls @ 250 mls/hr 04/27/17 11:45 04/27/17 18 :21 IVPB 250 mls/hr DAILY DONTA Administration Insulin Aspart 1 vial 04/25/17 22:00 04/27/17 18:21 Novolog Vial Sliding Scale - SQ 4 units ACHS [facility] Administration Protocol Insulin Detemir 22 units 04/26/17 07:00 04/27/17 06:43 Levemir Vial SQ 22 units AM DONTA Administration Levothyroxine Sodium 50 mcg 04/26/17 07:00 04/27/17 06:44 Synthroid - PO 50 mcg DAILY@0700 DONTA Administration Losartan Potassium 50 mg 04/26/17 10:00 04/27/17 09:44 Cozaar - PO 50 mg DAILY DONTA Administration Methotrexate 12.5 mg 04/27/17 07:30 04/27/17 06:44 Mexate - PO 12.5 mg We@0730 DONTA Administration Methylprednisolone Sodium Succinate 60 mg 04/27/17 18:44 Solu-Medrol - IVPUSH Q8H-IV DONTA Montelukast Sodium 10 mg 04/25/17 22:00 04/26/17 22:58 Singulair - PO 10 mg HS DONTA Administration Pantoprazole Sodium 40 mg 04/25/17 19:00 03/14/18 09:44 Protonix - PO 40 mg DAILY DONTA Administration Pramipexole Dihydrochloride 0.5 mg 04/25/17 22:00 04/27/17 09:44 Mirapex - PO 0.5 mg BID DONTA Administration Sertraline HCl 100 mg 04/25/17 22:00 04/26/17 22:59 Zoloft - PO 100 mg HS DONTA Administration Tiotropium [place] 1 puff 04/27/17 13:00 04/27/17 14:14 Spiriva - IH 1 puff DAILY DONTA Administration Topiramate 100 mg 04/25/17 22:00 04/27/17 09:45 Topamax - PO 100 mg BID DONTA Administration Home Medications Medication Instructions Recorded Albuterol Sulfate [Proair Hfa] 1 puff IH Q4H PRN 03/31/17 Atorvastatin Ca [Lipitor] 10 mg PO HS 03/31/17 Biotin 5,000 mcg PO DAILY 03/31/17 Budesonide/Formeterol Fumarate 2 inh PO BID 03/31/17 [SYMBICORT 160/4.5mcg -] Carbamazepine [Carbamazepine ER] 300 mg PO BID 03/31/17 Exenatide [Byetta] 10 mcg SQ BID 03/31/17 Furosemide [Lasix -] 40 mg PO DAILY 03/31/17 Glipizide [Glipizide Xl] 10 mg PO BID 03/31/17 Hydroxychloroquine So4 [Plaquenil 200 mg PO BID 03/31/17 -] Insulin Glargine,Hum.rec.anlog 22 unit SQ AM 03/31/17 [Lantus] Levothyroxine [Synthroid -] 50 mcg PO ASDIR 03/31/17 Losartan Potassium 50 mg PO DAILY 03/31/17 Metformin HCl 500 mg PO BID 03/31/17 Montelukast Na [Singulair -] 10 mg PO HS 03/31/17 Kevin-3 Fatty Acids [Kevin-3] 1,000 mg PO DAILY 03/31/17 Pramipexole Dihydrochloride 0.5 mg PO BID 03/31/17 [Mirapex -] Sertraline HCl 100 mg PO HS 03/31/17 Tiotropium [place] [Spiriva] 1 inh PO DAILY 03/31/17 Topiramate 100 mg PO BID 03/31/17 predniSONE [Deltasone -] See Taper PO DAILY #42 tablet 04/05/17 Insulin Lispro [Humalog] 0 unit SQ ASDIR 04/25/17 Omeprazole 40 mg PO DAILY 04/26/17
[2017-04-27] MEDS: methylPREDNISolone NA SUCC 40 MG/1 ML VIAL IVPUSH SCH (09:43)
[2017-04-27] MEDS: AZITHROMYCIN 250 MG TABLET PO SCH (09:44)
[2017-04-27] MEDS: PRAMIPEXOLE DIHYDROCHLORIDE 0.5 MG TABLET PO SCH ×2 (09:44→22:19)
[2017-04-27] MEDS: LOSARTAN POTASSIUM 50 MG TABLET (FP) PO SCH (09:44)
[2017-04-27] MEDS: FUROSEMIDE 40 MG TABLET (FP) PO SCH (09:44)
[2017-04-27] MEDS: BUDESONIDE/FORMETEROL FUMARATE 160/4.5 mcg INHALER IH SCH ×2 (09:44→22:21)
[2017-04-27] MEDS: PANTOPRAZOLE 40 MG TABLET (FP) PO SCH (09:44)
[2017-04-27] MEDS: carBAMazepine 200 MG TABLET PO SCH ×2 (09:45→22:22)
[2017-04-27] MEDS: HYDROXYCHLOROQUINE SO4 200 MG TABLET (FP) PO SCH ×2 (09:45→22:21)
[2017-04-27] MEDS: TOPIRAMATE 100 MG TABLET PO SCH ×2 (09:45→22:22)
[2017-04-27] MEDS ORDERED: methylPREDNISolone NA SUCC 40 MG/1 ML VIAL IVPUSH SCH (10:00)
[2017-04-27] MEDS ORDERED: methylPREDNISolone NA SUCC 125 MG/2 ML VIAL IVPUSH SCH (11:41)
[2017-04-27] MEDS ORDERED: guaiFENesin/CODEINE 5 ML UNIT-DOSE CUPS PO ONE (12:30)
[2017-04-27] MEDS ORDERED: TIOTROPIUM BROMIDE 18 MCG CAPSULES IH SCH (13:00)
[2017-04-27] MEDS: TIOTROPIUM BROMIDE 18 MCG CAPSULES IH SCH (14:14)
[2017-04-27] MEDS: ALBUTEROL SO4 0.5 % INH SOLN 2.5 MG/0.5 ML VIAL.NEB. NEB PRN (16:00)
--- NOTE | 2017-04-27 17:20 | PN ---
Progress Note, Physician History of Present Illness: Patient had episode of severe dyspnea and cough severql hours ago. She feels better noqw post increase in steroids addition of LAMA (Spiriva) and guaifenesin with codeine. - Current Medication List Current Medications: Active Medications Albuterol Sulfate (Ventolin 0.5% -) 1 amp NEB Q4H PRN PRN Reason: SHORTNESS OF BREATH Last Admin: 04/27/17 16:00 Dose: 1 amp Atorvastatin Calcium (Lipitor -) 10 mg PO HS [facility] Last Admin: 04/26/17 22:57 Dose: 10 mg Budesonide/Formoterol Fumarate (Symbicort 160/4.5mcg -) 2 puff IH BID [facility] Last Admin: 04/27/17 09:44 Dose: 2 puff Carbamazepine (Tegretol -) 300 mg PO BID [facility] Last Admin: 04/27/17 09:45 Dose: 300 mg Furosemide (Lasix -) 40 mg PO DAILY [facility] Last Admin: 04/27/17 09:44 Dose: 40 mg Heparin Sodium (Porcine) (Heparin -) 5,000 unit SQ TID [facility] Last Admin: 04/27/17 06:44 Dose: 5,000 unit Hydroxychloroquine Sulfate (Plaquenil -) 200 mg PO BID [facility] Last Admin: 04/27/17 09:45 Dose: 200 mg Azithromycin 500 mg/ Dextrose 250 mls @ 250 mls/hr IVPB DAILY [facility] Insulin Aspart (Novolog Vial Sliding Scale -) 1 vial SQ ACHS [facility] PRN Reason: Protocol Last Admin: 04/27/17 13:14 Dose: 2 units Insulin Detemir (Levemir Vial) 22 units SQ AM [facility] Last Admin: 04/27/17 06:43 Dose: 22 units Levothyroxine Sodium (Synthroid -) 50 mcg PO DAILY@0700 [facility] Last Admin: 04/27/17 06:44 Dose: 50 mcg Losartan Potassium (Cozaar -) 50 mg PO DAILY [facility] Last Admin: 04/27/17 09:44 Dose: 50 mg Methotrexate (Mexate -) 12.5 mg PO We@0730 [facility] Last Admin: 04/27/17 06:44 Dose: 12.5 mg Methylprednisolone Sodium Succinate (Solu-Medrol -) 60 mg IVPUSH Q8H-IV DONTA Montelukast Sodium (Singulair -) 10 mg PO HS [facility] Last Admin: 03/13/18 22:58 Dose: 10 mg Pantoprazole Sodium (Protonix -) 40 mg PO DAILY [facility] Last Admin: 04/27/17 09:44 Dose: 40 mg Pramipexole Dihydrochloride (Mirapex -) 0.5 mg PO BID [facility] Last Admin: 04/27/17 09:44 Dose: 0.5 mg Sertraline HCl (Zoloft -) 100 mg PO [facility] Last Admin: 04/26/17 22:59 Dose: 100 mg Tiotropium [place] (Spiriva -) 1 puff IH DAILY [facility] Last Admin: 04/27/17 14:14 Dose: 1 puff Topiramate (Topamax -) 100 mg PO BID [facility] Last Admin: 04/27/17 09:45 Dose: 100 mg - Objective Vital Signs: Vital Signs Temperature 98.7 F 04/27/17 13:50 Pulse Rate 96 H 04/27/17 13:50 Respiratory Rate 21 04/27/17 13:50 Blood Pressure 120/66 04/27/17 13:50 O2 Sat by Pulse Oximetry (%) 97 04/27/17 09:00 Constitutional: Yes: No Distress Eyes: No: Sclera Icterus HENT: Yes: Atraumatic, Normocephalic Neck: Yes: Supple, Trachea Midline Cardiovascular: Yes: Regular Rate and Rhythm. No: JVD Respiratory: Yes: CTA Bilaterally Gastrointestinal: Yes: Soft. No: Tenderness Edema: No Neurological: Yes: Alert, Oriented Labs: CBC, BMP 04/26/17 06:30 04/27/17 06:00 INR, PTT INR 1.04 (0.82-1.09) 04/25/17 13:45 Problem List - Problems (1) Obstructive sleep apnea (adult) (pediatric) Code(s): G47.33 - OBSTRUCTIVE SLEEP APNEA (ADULT) (PEDIATRIC) (2) COPD exacerbation Code(s): J44.1 - CHRONIC OBSTRUCTIVE PULMONARY DISEASE W (ACUTE) EXACERBATION (3) Morbid (severe) obesity due to excess calories Code(s): E66.01 - MORBID (SEVERE) OBESITY DUE TO EXCESS CALORIES (4) SLE (systemic lupus erythematosus) Code(s): M32.9 - SYSTEMIC LUPUS ERYTHEMATOSUS, UNSPECIFIED (5) Seizure disorder Code(s): G40.909 - EPILEPSY, UNSP, NOT INTRACTABLE, WITHOUT STATUS EPILEPTICUS Assessment/Plan Acute exacerbation COPD Significant cough and dyspnea continues. Will add LAMA and cough suppressant. Plan: Guaifenesin with codeine 5 cc q 4 hours PRN Soiriva daily Systemic steroids O2 to maintain SaO2 greater than 90 AutoPap: patient is using her own mask and AutoPap machine Bronchodilators
[2017-04-27] MEDS ORDERED: guaiFENesin/CODEINE 5 ML UNIT-DOSE CUPS PO PRN (17:26)
[2017-04-27] MEDS: AZITHROMYCIN IVPB 500 MG in DEXTROSE 5%-WATER - 250 ML IVPB SCH (18:21)
[2017-04-27] MEDS: ATORVASTATIN CA 10 MG TABLET (FP) PO SCH (22:19)
[2017-04-27] MEDS: MONTELUKAST NA 10 MG TABLET PO SCH (22:21)
[2017-04-27] MEDS: SERTRALINE HCL 50 MG TABLET (FP) PO SCH (22:22)
[2017-04-27] MEDS ORDERED: PT OWN MED DRAWER 7, Y5N ONE (22:31)
[2017-04-28] MEDS: methylPREDNISolone NA SUCC 40 MG/1 ML VIAL IVPUSH SCH ×3 (02:41→18:18)
[2017-04-28] MEDS: INSULIN DETEMIR 100 UNITS/ML MDV SQ SCH (06:59)
[2017-04-28] MEDS: HEPARIN NA (PORCINE) 5,000 UNITS/ML 1ML VIAL SQ SCH ×3 (06:59→21:59)
[2017-04-28] MEDS: INSULIN SLIDING SCALE (NOVOLOG) 1 VIAL SQ SCH ×4 (07:01→21:44)
[2017-04-28] MEDS: LEVOTHYROXINE NA 50 MCG TABLET (FP) PO SCH (07:02)
[2017-04-28] MEDS ORDERED: INSULIN (NOVOLOG) ASPART 100 UNITS/ML 10ML VIAL ONE ×2 (07:08→11:30)
[2017-04-28] MEDS: ALBUTEROL SO4 0.5 % INH SOLN 2.5 MG/0.5 ML VIAL.NEB. NEB PRN ×2 (07:31→20:40)
[2017-04-28 08:43] LABS: ANION GAP 12 (8-16); BLOOD UREA NITROGEN 20 mg/dL (7-18); CHLORIDE 101 mmol/L (98-107); CO2 24 mmol/L (21-32); CREATININE 1.1 mg/dL (0.55-1.02); GLUCOSE,RANDOM 247 mg/dL (74-106); POTASSIUM 4.3 mmol/L (3.5-5.1); SODIUM 137 mmol/L (136-145)
[2017-04-28] MEDS ORDERED: PT OWN MED DRAWER 7, Y5N ONE ×2 (09:27→12:27)
[2017-04-28] MEDS: FUROSEMIDE 40 MG TABLET (FP) PO SCH (09:50)
[2017-04-28] MEDS: LOSARTAN POTASSIUM 50 MG TABLET (FP) PO SCH (09:50)
[2017-04-28] MEDS: BUDESONIDE/FORMETEROL FUMARATE 160/4.5 mcg INHALER IH SCH ×2 (09:51→21:58)
[2017-04-28] MEDS: TIOTROPIUM BROMIDE 18 MCG CAPSULES IH SCH (09:51)
[2017-04-28] MEDS: HYDROXYCHLOROQUINE SO4 200 MG TABLET (FP) PO SCH ×2 (09:51→21:58)
[2017-04-28] MEDS: PANTOPRAZOLE 40 MG TABLET (FP) PO SCH (09:51)
[2017-04-28] MEDS: carBAMazepine 200 MG TABLET PO SCH ×2 (09:52→22:00)
[2017-04-28] MEDS: TOPIRAMATE 100 MG TABLET PO SCH ×2 (09:53→22:00)
[2017-04-28] MEDS: PRAMIPEXOLE DIHYDROCHLORIDE 0.5 MG TABLET PO SCH ×2 (09:53→21:59)
[2017-04-28] MEDS: AZITHROMYCIN IVPB 500 MG in DEXTROSE 5%-WATER - 250 ML IVPB SCH (10:14)
[2017-04-28] MEDS ORDERED: MAGNESIUM HYDROX 2400MG/30ML ORAL SUSPENSION 30 ML CUP PO ONE (11:26)
--- NOTE | 2017-04-28 12:10 | PN ---
<Milton Zimmerman - Last Filed: 04/28/17 18:21> Physical Exam: SUBJECTIVE: Patient seen and examined No acute events overnight. Patient feels well this morning. Mild chronic cough. Patient denies fever, chills, chest pain, abdominal pain. OBJECTIVE: Vital Signs Period Temp Pulse Resp BP Sys/Oconnell Pulse Ox Last 24 Hr 97.7 F-99.1 F 67-98 18-21 108-141/61-77 98 GENERAL: Awake, alert, and fully oriented, in no acute distress. HEAD: Normal with no signs of trauma. EYES: Pupils equal, round and reactive to light, Extraocular movements intact, sclera anicteric, conjunctiva clear. No lid lag. EARS, NOSE, THROAT: Moist mucous membranes, mild erythema in posterior oropharynx. NECK: Supple without lymphadenopathy, JVD, or masses. LUNGS: Decreased breath sounds throughout, poor air entry, scattered wheezing-- mildly improved from yesterday. No crackles or rhonchi appreciated HEART: +S1S2, RRR, distant heart sounds ABDOMEN: +Obese, Soft, nontender, not distended, normoactive bowel sounds, no guarding, no rebound, no masses. MUSCULOSKELETAL: No CVA tenderness. UPPER EXTREMITIES: 2+ pulses, warm, well-perfused. No cyanosis. No clubbing. No peripheral edema. LOWER EXTREMITIES: 2+ pulses, warm, well-perfused. No calf tenderness. trace peripheral edema. NEUROLOGICAL: Cranial nerves II-XII intact. Strength 5/5 in bilateraly upper and lower extremities, sensation intact b/l, 1-2+ reflexes b/l, Normal speech, finger to nose intact, gait not observed. PSYCHIATRIC: Cooperative. Good eye contact. Appropriate mood and affect. SKIN: Warm, dry Laboratory Results - last 24 hr 04/27/17 04/27/17 04/27/17 13:07 18:20 21:37 Sodium Potassium Chloride Carbon Dioxide Anion Gap BUN Creatinine POC Glucometer 241 265 218 Random Glucose Calcium 04/28/17 04/28/17 04/28/17 05:51 07:40 11:26 Sodium 137 Potassium 4.3 Chloride 101 Carbon Dioxide 24 Anion Gap 12 BUN 20 H Creatinine 1.1 H POC Glucometer 270 338 Random Glucose 247 H Calcium 9.0 Active Medications Generic Name Dose Route Start Last Admin Trade Name Freq PRN Reason Stop Dose Admin Albuterol Sulfate 1 amp 04/27/17 13:35 04/28/17 07:31 Ventolin 0.5% - NEB 1 amp Q4H PRN Administration SHORTNESS OF BREATH Atorvastatin Calcium 10 mg 04/25/17 22:00 04/27/17 22:19 Lipitor - PO 10 mg HS DONTA Administration Budesonide/Formoterol Fumarate 2 puff 04/25/17 22:00 04/28/17 09:51 Symbicort 160/4.5mcg - IH 2 puff BID DONTA Administration Carbamazepine 300 mg 04/25/17 22:00 04/28/17 09:52 Tegretol - PO 300 mg BID DONTA Administration Docusate Sodium 100 mg 04/28/17 14:00 Colace - PO TID DONTA Furosemide 40 mg 04/26/17 10:00 04/28/17 09:50 Lasix - PO 40 mg DAILY DONTA Administration Guaifenesin/Codeine Phosphate 5 ml 04/27/17 17:26 04/28/17 09:50 Robitussin Ac - PO 5 ml TID PRN Administration COUGH Heparin Sodium (Porcine) 5,000 unit 04/25/17 22:00 04/28/17 06:59 Heparin - SQ 5,000 unit TID DONTA Administration Hydroxychloroquine Sulfate 200 mg 04/25/17 22:00 04/28/17 09:51 Plaquenil - PO 200 mg BID DONTA Administration Azithromycin 500 mg/ Dextrose 250 mls @ 250 mls/hr 04/27/17 11:45 04/28/17 10 :14 IVPB 250 mls/hr DAILY DONTA Administration Insulin Aspart 1 vial 04/25/17 22:00 04/28/17 07:01 Novolog Vial Sliding Scale - SQ 4 units ACHS [facility] Administration Protocol Insulin Detemir 22 units 04/26/17 07:00 04/28/17 06:59 Levemir Vial SQ 22 units AM [facility] Administration Levothyroxine Sodium 50 mcg 04/26/17 07:00 04/28/17 07:02 Synthroid - PO 50 mcg DAILY@0700 DONTA Administration Losartan Potassium 50 mg 04/26/17 10:00 04/28/17 09:50 Cozaar - PO 50 mg DAILY DONTA Administration Methotrexate 12.5 mg 04/27/17 07:30 04/27/17 06:44 Mexate - PO 12.5 mg We@0730 DONTA Administration Methylprednisolone Sodium Succinate 60 mg 04/27/17 18:44 04/28/17 10:14 Solu-Medrol - IVPUSH 60 mg Q8H-IV DONTA Administration Montelukast Sodium 10 mg 04/25/17 22:00 04/27/17 22:21 Singulair - PO 10 mg HS DONTA Administration Pantoprazole Sodium 40 mg 04/25/17 19:00 04/28/17 09:51 Protonix - PO 40 mg DAILY DONTA Administration Pramipexole Dihydrochloride 0.5 mg 04/25/17 22:00 04/28/17 09:53 Mirapex - PO 0.5 mg BID DONTA Administration Sertraline HCl 100 mg 04/25/17 22:00 04/27/17 22:22 Zoloft - PO 100 mg HS DONTA Administration Tiotropium [place] 1 puff 04/27/17 13:00 04/28/17 09:51 Spiriva - IH 1 puff DAILY DONTA Administration Topiramate 100 mg 04/25/17 22:00 04/28/17 09:53 Topamax - PO 100 mg BID DONTA Administration ASSESSMENT/PLAN: 62 year old female with past medical history of COPD on three liters of home oxygen, CAD status post cath with no stent placed, hypertension, hyperlipidemia , lupus, DANY on CPAP, type II diabetes, hypothyroidism, seizure disorder, and morbid obesity presented with shortness of breath, dry cough, subjective fevers , and lower extremity edema. #Acute on chronic copd exacerbation, mild -Received vanco/levaquin and 125 mg medrol in ED -Duonebs standing and prn q6h -Continue Solu-Mederol to 60 mg q8hIV, taper when tolerated. Day 4 of steroids -Continue Azithromycin to 500 mg IV. Today is the last day -continue symbicort/singular 10 po hs -Spiriva restarted by pulmonary -Pulmonary consult, Dr. Hyde -O2 as needed -Influenza swab negative -RSV negative -Legionella/strep pneumonia antigen pending #DANY -Continue home CPAP at night #CAD -Continue Asa 81 #HTN -Continue Lasix 40 mg daily and Losartan 50 mg daily #Diastolic CHF -Continue Lasix 40 mg daily #HLD -Continue Lipitor 10 mg po hs #Seizure d/o -Continue seizure medications, Carbamazapine 300 mg po bid, Topomax 100 mg po bid #SLE -continue Plaquenil 200 mg po bid, Pramipaxole 0.5 mg po bid -received 12.5 mg Methotrexate on 04/27. Patient receives 12.5 mg MTX on every tue morning. #DM -ISS achs -Levemir 22 units sq am -BGM achs #hypothyroidism -continue Synthroid 50 mcg po daily #FEN/GI -No IVF -Monitor BMP -Diabetic/sodium diet #PPx -Protonix 40 mg po daily -Heparin 5000 u sq tid #Dispo: Inpatient admission Visit type - Emergency Visit Emergency Visit: Yes ED Registration Date: 04/25/17 Care time: The patient presented to the Emergency Department on the above date and was hospitalized for further evaluation of their emergent condition. - New Patient This patient is new to me today: No - Critical Care Critical Care patient: No <Getachew Thurston - Last Filed: 04/28/17 19:29> Physical Exam: Patient seen and examined, feels better today, will continue her Steroid 60mg IV q8h, will reevaluate her in am to that we can start tapering her off the steroid.
[2017-04-28] MEDS: DOCUSATE SODIUM 100 MG CAPSULE (FP) PO SCH ×3 (12:14→21:59)
--- NOTE | 2017-04-28 17:03 | PN ---
Progress Note, Physician History of Present Illness: Dyspnea and cough slightly improved but respiratory status is still not back to her baseline. - Current Medication List Current Medications: Active Medications Albuterol Sulfate (Ventolin 0.5% -) 1 amp NEB Q4H PRN PRN Reason: SHORTNESS OF BREATH Last Admin: 04/28/17 07:31 Dose: 1 amp Atorvastatin Calcium (Lipitor -) 10 mg PO HS [facility] Last Admin: 04/27/17 22:19 Dose: 10 mg Budesonide/Formoterol Fumarate (Symbicort 160/4.5mcg -) 2 puff IH BID [facility] Last Admin: 04/28/17 09:51 Dose: 2 puff Carbamazepine (Tegretol -) 300 mg PO BID [facility] Last Admin: 04/28/17 09:52 Dose: 300 mg Docusate Sodium (Colace -) 100 mg PO TID [facility] Last Admin: 04/28/17 14:24 Dose: Not Given Furosemide (Lasix -) 40 mg PO DAILY [facility] Last Admin: 04/28/17 09:50 Dose: 40 mg Guaifenesin/Codeine Phosphate (Robitussin Ac -) 5 ml PO TID PRN PRN Reason: COUGH Last Admin: 04/28/17 09:50 Dose: 5 ml Heparin Sodium (Porcine) (Heparin -) 5,000 unit SQ TID [facility] Last Admin: 04/28/17 14:40 Dose: 5,000 unit Hydroxychloroquine Sulfate (Plaquenil -) 200 mg PO BID [facility] Last Admin: 04/28/17 09:51 Dose: 200 mg Azithromycin 500 mg/ Dextrose 250 mls @ 250 mls/hr IVPB DAILY [facility] Last Admin: 04/28/17 10:14 Dose: 250 mls/hr Insulin Aspart (Novolog Vial Sliding Scale -) 1 vial SQ ACHS [facility] PRN Reason: Protocol Last Admin: 04/28/17 16:32 Dose: Not Given Insulin Detemir (Levemir Vial) 22 units SQ AM [facility] Last Admin: 04/28/17 06:59 Dose: 22 units Levothyroxine Sodium (Synthroid -) 50 mcg PO DAILY@0700 [facility] Last Admin: 04/28/17 07:02 Dose: 50 mcg Losartan Potassium (Cozaar -) 50 mg PO DAILY [facility] Last Admin: 04/28/17 09:50 Dose: 50 mg Methotrexate (Mexate -) 12.5 mg PO We@0730 [facility] Last Admin: 04/27/17 06:44 Dose: 12.5 mg Methylprednisolone Sodium Succinate (Solu-Medrol -) 60 mg IVPUSH Q8H-IV [facility] Last Admin: 04/28/17 10:14 Dose: 60 mg Montelukast Sodium (Singulair -) 10 mg PO HS [facility] Last Admin: 04/27/17 22:21 Dose: 10 mg Pantoprazole Sodium (Protonix -) 40 mg PO DAILY [facility] Last Admin: 04/28/17 09:51 Dose: 40 mg Pramipexole Dihydrochloride (Mirapex -) 0.5 mg PO BID [facility] Last Admin: 04/28/17 09:53 Dose: 0.5 mg Sertraline HCl (Zoloft -) 100 mg PO [facility] Last Admin: 04/27/17 22:22 Dose: 100 mg Tiotropium [place] (Spiriva -) 1 puff IH DAILY [facility] Last Admin: 04/28/17 09:51 Dose: 1 puff Topiramate (Topamax -) 100 mg PO BID [facility] Last Admin: 04/28/17 09:53 Dose: 100 mg - Objective Vital Signs: Vital Signs Temperature 98.1 F 04/28/17 14:31 Pulse Rate 94 H 04/28/17 14:31 Respiratory Rate 20 04/28/17 14:31 Blood Pressure 121/60 04/28/17 14:31 O2 Sat by Pulse Oximetry (%) 95 04/28/17 09:00 Constitutional: Yes: No Distress Eyes: No: Sclera Icterus HENT: Yes: Atraumatic, Normocephalic Neck: Yes: Supple, Trachea Midline Cardiovascular: Yes: Regular Rate and Rhythm. No: JVD Respiratory: Yes: Diminished (decreased intensity breath sounds bilaterally) Gastrointestinal: Yes: Soft. No: Tenderness Edema: No Neurological: Yes: Alert, Oriented Labs: CBC, BMP 04/26/17 06:30 04/28/17 07:40 INR, PTT INR 1.04 (0.82-1.09) 04/25/17 13:45 Problem List - Problems (1) Obstructive sleep apnea (adult) (pediatric) Code(s): G47.33 - OBSTRUCTIVE SLEEP APNEA (ADULT) (PEDIATRIC) (2) COPD exacerbation Code(s): J44.1 - CHRONIC OBSTRUCTIVE PULMONARY DISEASE W (ACUTE) EXACERBATION (3) Morbid (severe) obesity due to excess calories Code(s): E66.01 - MORBID (SEVERE) OBESITY DUE TO EXCESS CALORIES (4) SLE (systemic lupus erythematosus) Code(s): M32.9 - SYSTEMIC LUPUS ERYTHEMATOSUS, UNSPECIFIED (5) Seizure disorder Code(s): G40.909 - EPILEPSY, UNSP, NOT INTRACTABLE, WITHOUT STATUS EPILEPTICUS Assessment/Plan Acute exacerbation COPD. Slight improvement but still has significant cough and dyspnea. Plan: Guaifenesin with codeine 5 cc q 4 hours PRN Spiriva daily Systemic steroids O2 to maintain SaO2 greater than 90 AutoPap: patient is using her own mask and AutoPap machine Bronchodilators
[2017-04-28] MEDS: MONTELUKAST NA 10 MG TABLET PO SCH (21:59)
[2017-04-28] MEDS: ATORVASTATIN CA 10 MG TABLET (FP) PO SCH (21:59)
[2017-04-28] MEDS: SERTRALINE HCL 50 MG TABLET (FP) PO SCH (22:00)
[2017-04-29] MEDS: methylPREDNISolone NA SUCC 40 MG/1 ML VIAL IVPUSH SCH ×3 (02:00→17:38)
[2017-04-29] MEDS: LEVOTHYROXINE NA 50 MCG TABLET (FP) PO SCH (06:26)
[2017-04-29] MEDS: DOCUSATE SODIUM 100 MG CAPSULE (FP) PO SCH ×3 (06:26→21:39)
[2017-04-29] MEDS: HEPARIN NA (PORCINE) 5,000 UNITS/ML 1ML VIAL SQ SCH ×3 (06:26→21:39)
[2017-04-29] MEDS: INSULIN SLIDING SCALE (NOVOLOG) 1 VIAL SQ SCH ×4 (06:27→21:38)
[2017-04-29] MEDS: INSULIN DETEMIR 100 UNITS/ML MDV SQ SCH (06:27)
[2017-04-29 07:42] LABS: ANION GAP 10 (8-16); BLOOD UREA NITROGEN 26 mg/dL (7-18); CALCIUM 9.1 mg/dL (8.5-10.1); CHLORIDE 99 mmol/L (98-107); CO2 26 mmol/L (21-32); CREATININE 1.2 mg/dL (0.55-1.02); GLUCOSE,RANDOM 290 mg/dL (74-106); POTASSIUM 4.3 mmol/L (3.5-5.1); SODIUM 135 mmol/L (136-145)
[2017-04-29] MEDS ORDERED: PT OWN MED DRAWER 7, Y5N ONE (10:16)
[2017-04-29] MEDS: FUROSEMIDE 40 MG TABLET (FP) PO SCH (10:17)
[2017-04-29] MEDS: PANTOPRAZOLE 40 MG TABLET (FP) PO SCH (10:17)
[2017-04-29] MEDS: LOSARTAN POTASSIUM 50 MG TABLET (FP) PO SCH (10:17)
[2017-04-29] MEDS: HYDROXYCHLOROQUINE SO4 200 MG TABLET (FP) PO SCH ×2 (10:18→21:40)
[2017-04-29] MEDS: PRAMIPEXOLE DIHYDROCHLORIDE 0.5 MG TABLET PO SCH ×2 (10:18→21:39)
[2017-04-29] MEDS: carBAMazepine 200 MG TABLET PO SCH ×2 (10:19→21:40)
[2017-04-29] MEDS: AZITHROMYCIN IVPB 500 MG in DEXTROSE 5%-WATER - 250 ML IVPB SCH (10:19)
[2017-04-29] MEDS: TOPIRAMATE 100 MG TABLET PO SCH ×2 (10:19→21:40)
[2017-04-29] MEDS: TIOTROPIUM BROMIDE 18 MCG CAPSULES IH SCH (10:20)
[2017-04-29] MEDS: BUDESONIDE/FORMETEROL FUMARATE 160/4.5 mcg INHALER IH SCH ×2 (10:20→21:38)
--- NOTE | 2017-04-29 11:45 | PN ---
<Milton Zimmerman - Last Filed: 04/29/17 15:05> Physical Exam: SUBJECTIVE: Patient seen and examined No acute events overnight. Patient feels better this morning. Had 1 episode of Nb/Nb emesis. Patient denies fever, chills, chest pain, abdominal pain. OBJECTIVE: Vital Signs Period Temp Pulse Resp BP Sys/Oconnell Pulse Ox Last 24 Hr 97.5 F-98.1 F 65-94 20-20 121-155/53-72 98 GENERAL: Awake, alert, and fully oriented, in no acute distress. HEAD: Normal with no signs of trauma. EYES: Pupils equal, round and reactive to light, Extraocular movements intact, sclera anicteric, conjunctiva clear. No lid lag. EARS, NOSE, THROAT: Moist mucous membranes, mild erythema in posterior oropharynx. NECK: Supple without lymphadenopathy, JVD, or masses. LUNGS: Decreased breath sounds throughout, poor air entry, scattered wheezing-- mildly improved from yesterday. No crackles or rhonchi appreciated HEART: +S1S2, RRR, distant heart sounds ABDOMEN: +Obese, Soft, nontender, not distended, normoactive bowel sounds, no guarding, no rebound, no masses. MUSCULOSKELETAL: No CVA tenderness. UPPER EXTREMITIES: 2+ pulses, warm, well-perfused. No cyanosis. No clubbing. No peripheral edema. LOWER EXTREMITIES: 2+ pulses, warm, well-perfused. No calf tenderness. trace peripheral edema. NEUROLOGICAL: Cranial nerves II-XII intact. Strength 5/5 in bilateraly upper and lower extremities, sensation intact b/l, 1-2+ reflexes b/l, Normal speech, finger to nose intact, gait not observed. PSYCHIATRIC: Cooperative. Good eye contact. Appropriate mood and affect. SKIN: Warm, dry Laboratory Results - last 24 hr 04/28/17 04/28/17 04/28/17 11:26 16:29 21:43 Sodium Potassium Chloride Carbon Dioxide Anion Gap BUN Creatinine POC Glucometer 338 189 381 Random Glucose Calcium 04/29/17 04/29/17 05:40 07:00 Sodium 135 L Potassium 4.3 Chloride 99 Carbon Dioxide 26 Anion Gap 10 BUN 26 H Creatinine 1.2 H POC Glucometer 280 Random Glucose 290 H Calcium 9.1 Active Medications Generic Name Dose Route Start Last Admin Trade Name Freq PRN Reason Stop Dose Admin Albuterol Sulfate 1 amp 04/27/17 13:35 04/28/17 20:40 Ventolin 0.5% - NEB 1 amp Q4H PRN Administration SHORTNESS OF BREATH Atorvastatin Calcium 10 mg 04/25/17 22:00 04/28/17 21:59 Lipitor - PO 10 mg HS DONTA Administration Budesonide/Formoterol Fumarate 2 puff 04/25/17 22:00 04/29/17 10:20 Symbicort 160/4.5mcg - IH 2 puff BID DONTA Administration Carbamazepine 300 mg 04/25/17 22:00 04/29/17 10:19 Tegretol - PO 300 mg BID DONTA Administration Docusate Sodium 100 mg 04/28/17 14:00 04/29/17 06:26 Colace - PO 100 mg TID DONTA Administration Furosemide 40 mg 04/26/17 10:00 04/29/17 10:17 Lasix - PO 40 mg DAILY [facility] Administration Guaifenesin/Codeine Phosphate 5 ml 04/29/17 10:22 Robitussin Ac - PO Q6H PRN COUGH Heparin Sodium (Porcine) 5,000 unit 04/25/17 22:00 04/29/17 06:26 Heparin - SQ 5,000 unit TID [facility] Administration Hydroxychloroquine Sulfate 200 mg 04/25/17 22:00 04/29/17 10:18 Plaquenil - PO 200 mg BID [facility] Administration Azithromycin 500 mg/ Dextrose 250 mls @ 250 mls/hr 04/27/17 11:45 04/29/17 10 :19 IVPB 250 mls/hr DAILY [facility] Administration Insulin Aspart 1 vial 04/29/17 07:45 Novolog Vial Sliding Scale - SQ ACHS [facility] Protocol Insulin Detemir 22 units 04/26/17 07:00 04/29/17 06:27 Levemir Vial SQ 22 units AM [facility] Administration Levothyroxine Sodium 50 mcg 04/26/17 07:00 04/29/17 06:26 Synthroid - PO 50 mcg DAILY@0700 [facility] Administration Losartan Potassium 50 mg 04/26/17 10:00 04/29/17 10:17 Cozaar - PO 50 mg DAILY [facility] Administration Methotrexate 12.5 mg 04/27/17 07:30 04/27/17 06:44 Mexate - PO 12.5 mg We@0730 [facility] Administration Methylprednisolone Sodium Succinate 60 mg 04/27/17 18:44 04/29/17 10:20 Solu-Medrol - IVPUSH 60 mg Q8H-IV [facility] Administration Montelukast Sodium 10 mg 04/25/17 22:00 04/28/17 21:59 Singulair - PO 10 mg HS [facility] Administration Pantoprazole Sodium 40 mg 04/25/17 19:00 04/29/17 10:17 Protonix - PO 40 mg DAILY [facility] Administration Pramipexole Dihydrochloride 0.5 mg 04/25/17 22:00 04/29/17 10:18 Mirapex - PO 0.5 mg BID [facility] Administration Sertraline HCl 100 mg 04/25/17 22:00 04/28/17 22:00 Zoloft - PO 100 mg HS [facility] Administration Tiotropium [place] 1 puff 04/27/17 13:00 04/29/17 10:20 Spiriva - IH 1 puff DAILY [facility] Administration Topiramate 100 mg 04/25/17 22:00 04/29/17 10:19 Topamax - PO 100 mg BID [facility] Administration ASSESSMENT/PLAN: 62 year old female with past medical history of COPD on three liters of home oxygen, CAD status post cath with no stent placed, hypertension, hyperlipidemia , lupus, DANY on CPAP, type II diabetes, hypothyroidism, seizure disorder, and morbid obesity presented with shortness of breath, dry cough, subjective fevers , and lower extremity edema. #Acute on chronic copd exacerbation, mild -Received vanco/levaquin and 125 mg medrol in ED -Duonebs standing and prn q6h -Continue Solu-Mederol to 60 mg q8hIV, taper when tolerated. Day 5 of steroids -Continue Azithromycin to 500 mg IV. Today is the last day -continue symbicort/singular 10 po hs -Spiriva restarted by pulmonary -Robitussin AC 5 ml q6h prn for cough -Pulmonary consult, Dr. Hyde -O2 as needed -Influenza swab negative -RSV negative -Legionella/strep pneumonia antigen pending #DANY -Continue home CPAP at night #CAD -Continue Asa 81 #HTN -Continue Lasix 40 mg daily and Losartan 50 mg daily #Diastolic CHF -Continue Lasix 40 mg daily #HLD -Continue Lipitor 10 mg po hs #Seizure d/o -Continue seizure medications, Carbamazapine 300 mg po bid, Topomax 100 mg po bid #SLE -continue Plaquenil 200 mg po bid, Pramipaxole 0.5 mg po bid -received 12.5 mg Methotrexate on 04/27. Patient receives 12.5 mg MTX on every tue morning. #DM -ISS achs -Levemir 22 units sq am -BGM achs #hypothyroidism -continue Synthroid 50 mcg po daily #FEN/GI -No IVF -Monitor BMP -Diabetic/sodium diet #PPx -Protonix 40 mg po daily -Heparin 5000 u sq tid #Dispo: Inpatient admission Visit type - Emergency Visit Emergency Visit: Yes ED Registration Date: 04/25/17 Care time: The patient presented to the Emergency Department on the above date and was hospitalized for further evaluation of their emergent condition. - New Patient This patient is new to me today: No - Critical Care Critical Care patient: No <KarenaGetachew - Last Filed: 04/29/17 19:18> Physical Exam: Patient seen and examined. Patient is slightly better today with no acute distress, continue oxygen and steroid,will start to taper steroids in am. Vital Signs Temperature 98.3 F 04/29/17 14:41 Pulse Rate 86 04/29/17 14:41 Respiratory Rate 18 04/29/17 14:41 Blood Pressure 118/55 04/29/17 14:41 O2 Sat by Pulse Oximetry (%) 98 04/28/17 21:00 CBCD WBC 10.0 K/mm3 (4.0-10.0) 04/26/17 06:30 RBC 3.58 M/mm3 (3.60-5.2) L 04/26/17 06:30 Hgb 11.1 GM/dL (10.7-15.3) 04/26/17 06:30 Hct 33.4 % (32.4-45.2) 04/26/17 06:30 MCV 93.2 fl (80-96) 04/26/17 06:30 MCHC 33.1 g/dl (32.0-36.0) 04/26/17 06:30 RDW 16.6 % (11.6-15.6) H 04/26/17 06:30 Plt Count 275 K/MM3 (134-434) 04/26/17 06:30 MPV 8.1 fl (7.5-11.1) 04/26/17 06:30 CMP Sodium 135 mmol/L (136-145) L 04/29/17 07:00 Potassium 4.3 mmol/L (3.5-5.1) 04/29/17 07:00 Chloride 99 mmol/L (98-107) 04/29/17 07:00 Carbon Dioxide 26 mmol/L (21-32) 04/29/17 07:00 Anion Gap 10 (8-16) 04/29/17 07:00 BUN 26 mg/dL (7-18) H 04/29/17 07:00 Creatinine 1.2 mg/dL (0.55-1.02) H 04/29/17 07:00 Creat Clearance w eGFR 56.37 (>60) 04/25/17 13:45 Random Glucose 290 mg/dL (74-106) H 04/29/17 07:00 Calcium 9.1 mg/dL (8.5-10.1) 04/29/17 07:00 Total Bilirubin 0.3 mg/dL (0.2-1.0) D 04/25/17 13:45 AST 17 U/L (15-37) 04/25/17 13:45 ALT 31 U/L (12-78) 04/25/17 13:45 Alkaline Phosphatase 122 U/L (45-117) H 04/25/17 13:45 Total Protein 7.3 g/dl (6.4-8.2) 04/25/17 13:45 Albumin 3.5 g/dl (3.4-5.0) 04/25/17 13:45 CARDIAC ENZYMES Creatine Kinase 82 IU/L (26-192) 04/26/17 13:20 Troponin I < 0.02 ng/ml (0.00-0.05) 04/26/17 13:20 Current Medications Generic Name Dose Route Start Last Admin Trade Name Freq PRN Reason Stop Dose Admin Albuterol Sulfate 1 amp 04/27/17 13:35 04/28/17 20:40 Ventolin 0.5% - NEB 1 amp Q4H PRN Administration SHORTNESS OF BREATH Atorvastatin Calcium 10 mg 04/25/17 22:00 04/28/17 21:59 Lipitor - PO 10 mg HS DONTA Administration Budesonide/Formoterol Fumarate 2 puff 03/12/18 22:00 04/29/17 10:20 Symbicort 160/4.5mcg - IH 2 puff BID DONTA Administration Carbamazepine 300 mg 04/25/17 22:00 04/29/17 10:19 Tegretol - PO 300 mg BID DONTA Administration Docusate Sodium 100 mg 04/28/17 14:00 04/29/17 15:23 Colace - PO 100 mg TID DONTA Administration Furosemide 40 mg 04/26/17 10:00 04/29/17 10:17 Lasix - PO 40 mg DAILY [facility]TA Administration Guaifenesin/Codeine Phosphate 5 ml 04/29/17 10:22 Robitussin Ac - PO Q6H PRN COUGH Heparin Sodium (Porcine) 5,000 unit 04/25/17 22:00 04/29/17 15:23 Heparin - SQ 5,000 unit TID [facility]TA Administration Hydroxychloroquine Sulfate 200 mg 04/25/17 22:00 04/29/17 10:18 Plaquenil - PO 200 mg BID [facility]TA Administration Azithromycin 500 mg/ Dextrose 250 mls @ 250 mls/hr 04/27/17 11:45 04/29/17 10 :19 IVPB 04/29/17 23:59 250 mls/hr DAILY [facility]TA Administration Insulin Aspart 1 vial 04/29/17 07:45 04/29/17 17:37 Novolog Vial Sliding Scale - SQ 6 units ACHS [facility]TA Administration Protocol Insulin Detemir 22 units 04/26/17 07:00 04/29/17 06:27 Levemir Vial SQ 22 units AM [facility] Administration Levothyroxine Sodium 50 mcg 04/26/17 07:00 04/29/17 06:26 Synthroid - PO 50 mcg DAILY@0700 [facility] Administration Losartan Potassium 50 mg 04/26/17 10:00 04/29/17 10:17 Cozaar - PO 50 mg DAILY [facility] Administration Methotrexate 12.5 mg 04/27/17 07:30 04/27/17 06:44 Mexate - PO 12.5 mg We@0730 [facility] Administration Methylprednisolone Sodium Succinate 60 mg 04/27/17 18:44 04/29/17 17:38 Solu-Medrol - IVPUSH 60 mg Q8H-IV [facility]TA Administration Montelukast Sodium 10 mg 04/25/17 22:00 04/28/17 21:59 Singulair - PO 10 mg HS DONTA Administration Pantoprazole Sodium 40 mg 04/25/17 19:00 04/29/17 10:17 Protonix - PO 40 mg DAILY [facility]TA Administration Pramipexole Dihydrochloride 0.5 mg 04/25/17 22:00 04/29/17 10:18 Mirapex - PO 0.5 mg BID DONTA Administration Sertraline HCl 100 mg 04/25/17 22:00 04/28/17 22:00 Zoloft - PO 100 mg HS DONTA Administration Tiotropium [place] 1 puff 04/27/17 13:00 04/29/17 10:20 Spiriva - IH 1 puff DAILY [facility]TA Administration Topiramate 100 mg 04/25/17 22:00 04/29/17 10:19 Topamax - PO 100 mg BID DONTA Administration Home Medications Medication Instructions Recorded Albuterol Sulfate [Proair Hfa] 1 puff IH Q4H PRN 03/31/17 Atorvastatin Ca [Lipitor] 10 mg PO HS 03/31/17 Biotin 5,000 mcg PO DAILY 03/31/17 Budesonide/Formeterol Fumarate 2 inh PO BID 03/31/17 [SYMBICORT 160/4.5mcg -] Carbamazepine [Carbamazepine ER] 300 mg PO BID 03/31/17 Exenatide [Byetta] 10 mcg SQ BID 03/31/17 Furosemide [Lasix -] 40 mg PO DAILY 03/31/17 Glipizide [Glipizide Xl] 10 mg PO BID 03/31/17 Hydroxychloroquine So4 [Plaquenil 200 mg PO BID 03/31/17 -] Insulin Glargine,Hum.rec.anlog 22 unit SQ AM 03/31/17 [Lantus] Levothyroxine [Synthroid -] 50 mcg PO ASDIR 03/31/17 Losartan Potassium 50 mg PO DAILY 03/31/17 Metformin HCl 500 mg PO BID 03/31/17 Montelukast Na [Singulair -] 10 mg PO HS 03/31/17 [place]-3 Fatty Acids [[place]-3] 1,000 mg PO DAILY 03/31/17 Pramipexole Dihydrochloride 0.5 mg PO BID 03/31/17 [Mirapex -] Sertraline HCl 100 mg PO HS 03/31/17 Tiotropium [place] [Spiriva] 1 inh PO DAILY 03/31/17 Topiramate 100 mg PO BID 03/31/17 predniSONE [Deltasone -] See Taper PO DAILY #42 tablet 04/05/17 Insulin Lispro [Humalog] 0 unit SQ ASDIR 04/25/17 Omeprazole 40 mg PO DAILY 04/26/17
[2017-04-29] MEDS ORDERED: INSULIN (NOVOLOG) ASPART 100 UNITS/ML 10ML VIAL ONE ×2 (12:14→21:36)
[2017-04-29] MEDS: guaiFENesin/CODEINE 5 ML UNIT-DOSE CUPS PO PRN (21:38)
[2017-04-29] MEDS: ATORVASTATIN CA 10 MG TABLET (FP) PO SCH (21:40)
[2017-04-29] MEDS: MONTELUKAST NA 10 MG TABLET PO SCH (21:40)
[2017-04-29] MEDS: SERTRALINE HCL 50 MG TABLET (FP) PO SCH (21:40)
[2017-04-30] MEDS: methylPREDNISolone NA SUCC 40 MG/1 ML VIAL IVPUSH SCH ×3 (02:27→17:59)
[2017-04-30] MEDS: DOCUSATE SODIUM 100 MG CAPSULE (FP) PO SCH ×3 (06:09→22:55)
[2017-04-30] MEDS: INSULIN DETEMIR 100 UNITS/ML MDV SQ SCH (06:10)
[2017-04-30] MEDS: LEVOTHYROXINE NA 50 MCG TABLET (FP) PO SCH (06:10)
[2017-04-30] MEDS: INSULIN SLIDING SCALE (NOVOLOG) 1 VIAL SQ SCH ×3 (06:10→17:58)
[2017-04-30] MEDS: HEPARIN NA (PORCINE) 5,000 UNITS/ML 1ML VIAL SQ SCH ×3 (06:10→22:55)
--- NOTE | 2017-04-30 10:34 | PN ---
Physical Exam: SUBJECTIVE: Patient seen and examined Patient is comfortable, oxygen dependent on 2l oxygen at home. OBJECTIVE: GENERAL: The patient is awake, alert, and fully oriented, in no acute distress. HEAD: Normal with no signs of trauma. EYES: PERRL, extraocular movements intact, sclera anicteric, conjunctiva clear. No ptosis. ENT: Ears normal, nares patent, oropharynx clear without exudates, moist mucous membranes. NECK: Trachea midline, full range of motion, supple. LUNGS: Breath sounds equal, clear to auscultation bilaterally, no wheezes, no crackles, no accessory muscle use. HEART: Regular rate and rhythm, S1, S2 without murmur, rub or gallop. ABDOMEN: Soft, nontender, nondistended, normoactive bowel sounds, no guarding, no rebound, no hepatosplenomegaly, no masses. EXTREMITIES: 2+ pulses, warm, well-perfused, no edema. NEUROLOGICAL: Cranial nerves II through XII grossly intact. Normal speech, gait not observed. PSYCH: Normal mood, normal affect. SKIN: Warm, dry, normal turgor, no rashes or lesions noted Laboratory Results - last 24 hr 04/29/17 04/29/17 04/29/17 12:11 17:23 21:34 POC Glucometer 220 290 240 04/30/17 05:35 POC Glucometer 258 CBCD WBC 10.0 K/mm3 (4.0-10.0) 04/26/17 06:30 RBC 3.58 M/mm3 (3.60-5.2) L 04/26/17 06:30 Hgb 11.1 GM/dL (10.7-15.3) 04/26/17 06:30 Hct 33.4 % (32.4-45.2) 04/26/17 06:30 MCV 93.2 fl (80-96) 04/26/17 06:30 MCHC 33.1 g/dl (32.0-36.0) 04/26/17 06:30 RDW 16.6 % (11.6-15.6) H 04/26/17 06:30 Plt Count 275 K/MM3 (134-434) 04/26/17 06:30 MPV 8.1 fl (7.5-11.1) 04/26/17 06:30 CMP Sodium 135 mmol/L (136-145) L 04/29/17 07:00 Potassium 4.3 mmol/L (3.5-5.1) 04/29/17 07:00 Chloride 99 mmol/L (98-107) 04/29/17 07:00 Carbon Dioxide 26 mmol/L (21-32) 04/29/17 07:00 Anion Gap 10 (8-16) 04/29/17 07:00 BUN 26 mg/dL (7-18) H 04/29/17 07:00 Creatinine 1.2 mg/dL (0.55-1.02) H 04/29/17 07:00 Creat Clearance w eGFR 56.37 (>60) 04/25/17 13:45 Random Glucose 290 mg/dL (74-106) H 04/29/17 07:00 Calcium 9.1 mg/dL (8.5-10.1) 04/29/17 07:00 Total Bilirubin 0.3 mg/dL (0.2-1.0) D 04/25/17 13:45 AST 17 U/L (15-37) 04/25/17 13:45 ALT 31 U/L (12-78) 04/25/17 13:45 Alkaline Phosphatase 122 U/L (45-117) H 04/25/17 13:45 Total Protein 7.3 g/dl (6.4-8.2) 04/25/17 13:45 Albumin 3.5 g/dl (3.4-5.0) 04/25/17 13:45 CARDIAC ENZYMES Creatine Kinase 82 IU/L (26-192) 04/26/17 13:20 Troponin I < 0.02 ng/ml (0.00-0.05) 04/26/17 13:20 Active Medications Generic Name Dose Route Start Last Admin Trade Name Freq PRN Reason Stop Dose Admin Albuterol Sulfate 1 amp 04/27/17 13:35 04/28/17 20:40 Ventolin 0.5% - NEB 1 amp Q4H PRN Administration SHORTNESS OF BREATH Atorvastatin Calcium 10 mg 04/25/17 22:00 04/29/17 21:40 Lipitor - PO 10 mg HS DONTA Administration Budesonide/Formoterol Fumarate 2 puff 04/25/17 22:00 04/29/17 21:38 Symbicort 160/4.5mcg - IH 2 puff BID [facility]AT Administration Carbamazepine 300 mg 04/25/17 22:00 04/29/17 21:40 Tegretol - PO 300 mg BID DONTA Administration Docusate Sodium 100 mg 04/28/17 14:00 04/30/17 06:09 Colace - PO 100 mg TID DONTA Administration Furosemide 40 mg 04/26/17 10:00 04/29/17 10:17 Lasix - PO 40 mg DAILY [facility]TA Administration Guaifenesin/Codeine Phosphate 5 ml 04/29/17 10:22 04/29/17 21:38 Robitussin Ac - PO 5 ml Q6H PRN Administration COUGH Heparin Sodium (Porcine) 5,000 unit 04/25/17 22:00 04/30/17 06:10 Heparin - SQ 5,000 unit TID DONTA Administration Hydroxychloroquine Sulfate 200 mg 04/25/17 22:00 04/29/17 21:40 Plaquenil - PO 200 mg BID DONTA Administration Insulin Aspart 1 vial 04/29/17 07:45 04/30/17 06:10 Novolog Vial Sliding Scale - SQ 4 units ACHS DONTA Administration Protocol Insulin Detemir 22 units 04/26/17 07:00 04/30/17 06:10 Levemir Vial SQ 22 units AM [facility]TA Administration Levothyroxine Sodium 50 mcg 04/26/17 07:00 04/30/17 06:10 Synthroid - PO 50 mcg DAILY@0700 DONTA Administration Losartan Potassium 50 mg 04/26/17 10:00 04/29/17 10:17 Cozaar - PO 50 mg DAILY DONTA Administration Methotrexate 12.5 mg 04/27/17 07:30 04/27/17 06:44 Mexate - PO 12.5 mg We@0730 DONTA Administration Methylprednisolone Sodium Succinate 60 mg 04/27/17 18:44 04/30/17 02:27 Solu-Medrol - IVPUSH 60 mg Q8H-IV DONTA Administration Montelukast Sodium 10 mg 04/25/17 22:00 04/29/17 21:40 Singulair - PO 10 mg HS DONTA Administration Pantoprazole Sodium 40 mg 04/25/17 19:00 04/29/17 10:17 Protonix - PO 40 mg DAILY DONTA Administration Pramipexole Dihydrochloride 0.5 mg 04/25/17 22:00 04/29/17 21:39 Mirapex - PO 0.5 mg BID DONTA Administration Sertraline HCl 100 mg 04/25/17 22:00 04/29/17 21:40 Zoloft - PO 100 mg HS DONTA Administration Tiotropium [place] 1 puff 04/27/17 13:00 04/29/17 10:20 Spiriva - IH 1 puff DAILY DONTA Administration Topiramate 100 mg 04/25/17 22:00 04/29/17 21:40 Topamax - PO 100 mg BID DONTA Administration Home Medications Medication Instructions Recorded Albuterol Sulfate [Proair Hfa] 1 puff IH Q4H PRN 03/31/17 Atorvastatin Ca [Lipitor] 10 mg PO HS 03/31/17 Biotin 5,000 mcg PO DAILY 03/31/17 Budesonide/Formeterol Fumarate 2 inh PO BID 03/31/17 [SYMBICORT 160/4.5mcg -] Carbamazepine [Carbamazepine ER] 300 mg PO BID 03/31/17 Exenatide [Byetta] 10 mcg SQ BID 03/31/17 Furosemide [Lasix -] 40 mg PO DAILY 03/31/17 Glipizide [Glipizide Xl] 10 mg PO BID 03/31/17 Hydroxychloroquine So4 [Plaquenil 200 mg PO BID 03/31/17 -] Insulin Glargine,Hum.rec.anlog 22 unit SQ AM 03/31/17 [Lantus] Levothyroxine [Synthroid -] 50 mcg PO ASDIR 03/31/17 Losartan Potassium 50 mg PO DAILY 03/31/17 Metformin HCl 500 mg PO BID 03/31/17 Montelukast Na [Singulair -] 10 mg PO HS 03/31/17 [place]-3 Fatty Acids [[place]-3] 1,000 mg PO DAILY 03/31/17 Pramipexole Dihydrochloride 0.5 mg PO BID 03/31/17 [Mirapex -] Sertraline HCl 100 mg PO HS 03/31/17 Tiotropium [place] [Spiriva] 1 inh PO DAILY 03/31/17 Topiramate 100 mg PO BID 03/31/17 predniSONE [Deltasone -] See Taper PO DAILY #42 tablet 04/05/17 Insulin Lispro [Humalog] 0 unit SQ ASDIR 04/25/17 Omeprazole 40 mg PO DAILY 04/26/17 ASSESSMENT/PLAN: 62 year old female with past medical history of COPD on three liters of home oxygen, CAD status post cath with no stent placed, hypertension, hyperlipidemia , lupus, DANY on CPAP, type II diabetes, hypothyroidism, seizure disorder, and morbid obesity presented with shortness of breath, dry cough, subjective fevers , and lower extremity edema. #Acute on chronic copd exacerbation, on IV steroid continue, pulm on the case. Continue Spiriva, symbicort. #DANY on CPAP at night continue #CAD Continue Asa 81 #HTN continue Lasix 40 mg daily and Losartan 50 mg daily #Diastolic CHF continue Lasix 40 mg daily #HLD continue Lipitor 10 mg po hs #Seizure d/o on Carbamazapine 300 mg po bid, Topomax 100 mg po bid continue #SLE continue Plaquenil 200 mg po bid, Pramipaxole 0.5 mg po bid, ON MTX on every tue morning 12.5mg #DM ISS achs, continue as perDr. shresta #hypothyroidism continue Synthroid 50 mcg po daily GI Px: Protonix 40 mg po daily DVT Px:Heparin 5000 u sq tid Visit type - Emergency Visit Emergency Visit: Yes ED Registration Date: 04/25/17 Care time: The patient presented to the Emergency Department on the above date and was hospitalized for further evaluation of their emergent condition. - New Patient This patient is new to me today: No - Critical Care Critical Care patient: No - Discharge Referral Referred to [facility] No
[2017-04-30] MEDS ORDERED: PT OWN MED DRAWER 7, Y5N ONE ×4 (11:08→22:04)
[2017-04-30] MEDS: PRAMIPEXOLE DIHYDROCHLORIDE 0.5 MG TABLET PO SCH ×2 (11:16→22:57)
[2017-04-30] MEDS: PANTOPRAZOLE 40 MG TABLET (FP) PO SCH (11:16)
[2017-04-30] MEDS: FUROSEMIDE 40 MG TABLET (FP) PO SCH (11:16)
[2017-04-30] MEDS: LOSARTAN POTASSIUM 50 MG TABLET (FP) PO SCH (11:16)
[2017-04-30] MEDS: TOPIRAMATE 100 MG TABLET PO SCH ×2 (11:17→22:56)
[2017-04-30] MEDS: carBAMazepine 200 MG TABLET PO SCH ×2 (11:17→22:56)
[2017-04-30] MEDS: HYDROXYCHLOROQUINE SO4 200 MG TABLET (FP) PO SCH ×2 (11:17→22:57)
[2017-04-30] MEDS: BUDESONIDE/FORMETEROL FUMARATE 160/4.5 mcg INHALER IH SCH ×2 (11:17→22:56)
[2017-04-30] MEDS: INCRUSE ELLIPTA IH SCH (14:47)
[2017-04-30] MEDS: TIOTROPIUM BROMIDE 18 MCG CAPSULES IH SCH (14:48)
[2017-04-30] MEDS: LINZESS 145 MCG PO SCH (14:48)
--- NOTE | 2017-04-30 15:00 | CONSULT ---
Consult Consult Specialty:: Endocrinology Referred by:: Dr Thurston Reason for Consultation:: Hyperglycemia - History of Present Illness Chief Complaint: SOB History of Present Illness: This is a 62 Y/O F with h/o COPD on home oxygen, Sleep apnea on CPAP, T2DM, SLE (Plaquenil, Mirapex, Methotrexate), HTN, HLD, hypothyroidism, CAD (08/2016 cath [place]: mild luminal irregularities in LCX), seizure d/o, and morbid obesity s/p gastric band 11/2016, who presents with worsening SOB, dry cough, malaise, subjective fever, sore throat, LE edema, diarrhea since sat. She denied sick contacts. She has a history of frequent admissions for COPD w/o ICU admission or intubation. Patient reports having asthma as well and attributes current symptoms to usual prodrome of COPD exacerbation. Pt was admitted and treated with IV steroids and bronchodilators with improvement of symptoms. Pt however continues to be hyperglycemic as she is on steroids. FS at home 120 to 125 in the morning, No hypos. No polyuria, polydipsia. No visual symptoms, No paresthesia of feet. 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 Cardio/Vascular: Yes: CAD, HTN, Hyperlipdemia Pulmonary: Yes: Asthma, COPD, O2 Dependent, Sleep Apnea, Other (uses NIPPV at night) ...LMP: 03/18/01 ...: No Rheumatology: Yes: Lupus Endocrine: Yes: Diabetes Mellitus - Past Surgical History Past Surgical History: Yes: Cataract Removal, Cholecystectomy, , Joint Replacement (Right total hip replacement), Tonsillectomy - Alcohol/Substance Use Hx Alcohol Use: No History of Substance Use: reports: None - Smoking History Smoking history: Former smoker Have you smoked in the past 12 months: No Aproximately how many cigarettes per day: 10 If you are a former smoker, when did you quit?: 20 years ago - Social History Usual Living Arrangement: With Spouse ADL: Independent History of Recent Travel: No Home Medications - Allergies Allergies/Adverse Reactions: Allergies Allergy/AdvReac Type Severity Reaction Status Date / Time gabapentin [From Neurontin] Allergy PALPITATIONS, Verified 04/25/17 11:15 PASSES OUT Penicillins Allergy TONGUE Verified 04/25/17 11:15 Swelling phenytoin sodium Allergy diarrhea/vo Verified 04/25/17 11:15 [From Dilantin] miting phenytoin sodium extended Allergy Verified 04/25/17 11:15 [From Dilantin] theophylline [Theophylline] Allergy diarrhea,SE Verified 04/25/17 11:15 IZURES - Home Medications Home Medications: Ambulatory Orders Albuterol Sulfate [Proair Hfa] 1 puff IH Q4H PRN 03/31/17 Atorvastatin Ca [Lipitor] 10 mg PO HS 03/31/17 Biotin 5,000 mcg PO DAILY 03/31/17 Budesonide/Formeterol Fumarate [SYMBICORT 160/4.5mcg -] 2 inh PO BID 03/31/17 Carbamazepine [Carbamazepine ER] 300 mg PO BID 03/31/17 Exenatide [Byetta] 10 mcg SQ BID 03/31/17 Furosemide [Lasix -] 40 mg PO DAILY 03/31/17 Glipizide [Glipizide Xl] 10 mg PO BID 03/31/17 Hydroxychloroquine So4 [Plaquenil -] 200 mg PO BID 03/31/17 Insulin Glargine,Hum.rec.anlog [Lantus] 22 unit SQ AM 03/31/17 Levothyroxine [Synthroid -] 50 mcg PO ASDIR 03/31/17 Losartan Potassium 50 mg PO DAILY 03/31/17 Metformin HCl 500 mg PO BID 03/31/17 Montelukast Na [Singulair -] 10 mg PO HS 03/31/17 [place]-3 Fatty Acids [[place]-3] 1,000 mg PO DAILY 03/31/17 Pramipexole Dihydrochloride [Mirapex -] 0.5 mg PO BID 03/31/17 Sertraline HCl 100 mg PO HS 03/31/17 Tiotropium [place] [Spiriva] 1 inh PO DAILY 03/31/17 Topiramate 100 mg PO BID 03/31/17 predniSONE [Deltasone -] See Taper PO DAILY #42 tablet 04/05/17 Insulin Lispro [Humalog] 0 unit SQ ASDIR 04/25/17 Omeprazole 40 mg PO DAILY 04/26/17 Family Disease History - Family Disease History Other Family History: No family h/o DM Review of Systems - Review of Systems Constitutional: reports: Malaise Eyes: reports: No Symptoms HENT: reports: No Symptoms Neck: reports: No Symptoms Cardiovascular: reports: Shortness of Breath Respiratory: reports: Cough, SOB, Wheezing Gastrointestinal: reports: No Symptoms Genitourinary: reports: No Symptoms Breasts: reports: No Symptoms Reported Musculoskeletal: reports: No Symptoms Integumentary: reports: No Symptoms Neurological: reports: No Symptoms Endocrine: reports: No Symptoms Hematology/Lymphatic: reports: No Symptoms Physical Exam Vital Signs: Vital Signs Temperature 97.8 F 04/30/17 06:15 Pulse Rate 75 04/30/17 06:15 Respiratory Rate 20 04/30/17 06:15 Blood Pressure 157/89 04/30/17 06:15 O2 Sat by Pulse Oximetry (%) 97 04/29/17 21:00 Constitutional: Yes: No Distress, Calm Eyes: Yes: Conjunctiva Clear, EOM Intact HENT: Yes: Atraumatic, Normocephalic Neck: Yes: Supple, Trachea Midline Cardiovascular: Yes: Regular Rate and Rhythm Respiratory: Yes: Regular, Diminished (diffusely), Other (scattered rhonchi) Gastrointestinal: Yes: Normal Bowel Sounds, Soft Renal/: Yes: WNL Musculoskeletal: Yes: WNL Extremities: Yes: WNL Edema: No Neurological: Yes: Alert, Oriented Labs: CBC, BMP 04/26/17 06:30 04/29/17 07:00 Imaging - Results Chest X-ray: Report Reviewed (No infiltrates) Problem List - Problems (1) COPD exacerbation Code(s): J44.1 - CHRONIC OBSTRUCTIVE PULMONARY DISEASE W (ACUTE) EXACERBATION (2) Hyperglycemia Code(s): R73.9 - HYPERGLYCEMIA, UNSPECIFIED (3) Obstructive sleep apnea (adult) (pediatric) Code(s): G47.33 - OBSTRUCTIVE SLEEP APNEA (ADULT) (PEDIATRIC) Assessment/Plan AP: T2DM with hyperlgycemia COPD exacerbation Sleep Apnes Obesity Hypothyroidism BGM QACHS Levemir 22 units daily in morning Change novolog Coverage, will need to adjust as necessary with change in steroid dosage IV steroids O2 Bronchodilators Levothyroxine Methotrexate
[2017-04-30] MEDS ORDERED: INSULIN (NOVOLOG) ASPART 100 UNITS/ML 10ML VIAL ONE (18:07)
[2017-04-30] MEDS: ALBUTEROL SO4 0.5 % INH SOLN 2.5 MG/0.5 ML VIAL.NEB. NEB PRN (22:15)
[2017-04-30] MEDS: MONTELUKAST NA 10 MG TABLET PO SCH (22:55)
[2017-04-30] MEDS: ATORVASTATIN CA 10 MG TABLET (FP) PO SCH (22:55)
[2017-04-30] MEDS: SERTRALINE HCL 50 MG TABLET (FP) PO SCH (22:56)
[2017-04-30] MEDS: Insulin (LOG) Aspart 100 UNITS/ML VIAL SQ SCH (23:02)
[2017-05-01] MEDS: methylPREDNISolone NA SUCC 40 MG/1 ML VIAL IVPUSH SCH ×3 (02:18→21:32)
[2017-05-01] MEDS: DOCUSATE SODIUM 100 MG CAPSULE (FP) PO SCH ×4 (06:05→21:28)
[2017-05-01] MEDS: HEPARIN NA (PORCINE) 5,000 UNITS/ML 1ML VIAL SQ SCH ×3 (06:05→21:28)
[2017-05-01] MEDS: INSULIN DETEMIR 100 UNITS/ML MDV SQ SCH (06:06)
[2017-05-01] MEDS: INSULIN SLIDING SCALE (NOVOLOG) 1 VIAL SQ SCH ×3 (06:08→17:23)
[2017-05-01] MEDS: LEVOTHYROXINE NA 50 MCG TABLET (FP) PO SCH (06:10)
--- NOTE | 2017-05-01 07:19 | PN ---
Physical Exam: SUBJECTIVE: Patient seen and examined No acute events overnight. Patient feels mildly improved this AM. Patient denies fever, chills, chest pain, abdominal pain. OBJECTIVE: Vital Signs Period Temp Pulse Resp BP Sys/Oconnell Pulse Ox Last 24 Hr 97.7 F-99.1 F 73-77 18-20 105-132/45-63 95-95 GENERAL: Awake, alert, and fully oriented, in no acute distress. HEAD: Normal with no signs of trauma. EYES: Pupils equal, round and reactive to light, Extraocular movements intact, sclera anicteric, conjunctiva clear. No lid lag. EARS, NOSE, THROAT: Moist mucous membranes, mild erythema in posterior oropharynx. NECK: Supple without lymphadenopathy, JVD, or masses. LUNGS: Decreased breath sounds throughout, poor air entry. No crackles or rhonchi appreciated HEART: +S1S2, RRR, distant heart sounds ABDOMEN: +Obese, Soft, nontender, not distended, normoactive bowel sounds, no guarding, no rebound, no masses. MUSCULOSKELETAL: No CVA tenderness. UPPER EXTREMITIES: 2+ pulses, warm, well-perfused. No cyanosis. No clubbing. No peripheral edema. LOWER EXTREMITIES: 2+ pulses, warm, well-perfused. No calf tenderness. trace peripheral edema. NEUROLOGICAL: Cranial nerves II-XII intact. Strength 5/5 in bilateraly upper and lower extremities, sensation intact b/l, 1-2+ reflexes b/l, Normal speech, finger to nose intact, gait not observed. PSYCHIATRIC: Cooperative. Good eye contact. Appropriate mood and affect. SKIN: Warm, dry Laboratory Results - last 24 hr 04/30/17 04/30/17 04/30/17 11:29 17:53 21:52 POC Glucometer 307 220 320 05/01/17 06:02 POC Glucometer 281 Active Medications Generic Name Dose Route Start Last Admin Trade Name Freq PRN Reason Stop Dose Admin Albuterol Sulfate 1 amp 04/27/17 13:35 04/30/17 22:15 Ventolin 0.5% - NEB 1 amp Q4H PRN Administration SHORTNESS OF BREATH Atorvastatin Calcium 10 mg 04/25/17 22:00 04/30/17 22:55 Lipitor - PO 10 mg HS DONTA Administration Budesonide/Formoterol Fumarate 2 puff 04/25/17 22:00 04/30/17 22:56 Symbicort 160/4.5mcg - IH 2 puff BID DONTA Administration Carbamazepine 300 mg 04/25/17 22:00 04/30/17 22:56 Tegretol - PO 300 mg BID DONTA Administration Docusate Sodium 100 mg 04/28/17 14:00 05/01/17 06:05 Colace - PO 100 mg TID DONTA Administration Furosemide 40 mg 04/26/17 10:00 04/30/17 11:16 Lasix - PO 40 mg DAILY DONTA Administration Guaifenesin/Codeine Phosphate 5 ml 04/29/17 10:22 04/29/17 21:38 Robitussin Ac - PO 5 ml Q6H PRN Administration COUGH Heparin Sodium (Porcine) 5,000 unit 04/25/17 22:00 05/01/17 06:05 Heparin - SQ 5,000 unit TID DONTA Administration Hydroxychloroquine Sulfate 200 mg 04/25/17 22:00 04/30/17 22:57 Plaquenil - PO 200 mg BID DONTA Administration Insulin Aspart 0 units 04/30/17 22:00 04/30/17 23:02 Novolog SQ 8 units HS DONTA Administration Protocol Insulin Aspart 1 vial 04/30/17 16:30 05/01/17 06:08 Novolog Vial Sliding Scale - SQ 10 units TIDAC DONTA Administration Protocol Insulin Detemir 22 units 04/26/17 07:00 05/01/17 06:06 Levemir Vial SQ 22 units AM DONTA Administration Levothyroxine Sodium 50 mcg 04/26/17 07:00 05/01/17 06:10 Synthroid - PO 50 mcg DAILY@0700 DONTA Administration Losartan Potassium 50 mg 04/26/17 10:00 04/30/17 11:16 Cozaar - PO 50 mg DAILY DONTA Administration Methotrexate 12.5 mg 04/27/17 07:30 04/27/17 06:44 Mexate - PO 12.5 mg We@0730 DONTA Administration Methylprednisolone Sodium Succinate 60 mg 04/27/17 18:44 05/01/17 02:18 Solu-Medrol - IVPUSH 60 mg Q8H-IV DONTA Administration Montelukast Sodium 10 mg 04/25/17 22:00 04/30/17 22:55 Singulair - PO 10 mg HS DONTA Administration Nf(Linzess 145mcg 1 each 04/30/17 15:00 04/30/17 14:48 Capsule) PO 1 each DAILY DONTA Administration Nf(Incruse Ellipta 1 each 04/30/17 15:00 04/30/17 14:47 Inhaler)62.5mcg/Inh IH 1 each DAILY DONTA Administration Pantoprazole Sodium 40 mg 04/25/17 19:00 04/30/17 11:16 Protonix - PO 40 mg DAILY DONTA Administration Pramipexole Dihydrochloride 0.5 mg 04/25/17 22:00 04/30/17 22:57 Mirapex - PO 0.5 mg BID DONTA Administration Sertraline HCl 100 mg 04/25/17 22:00 04/30/17 22:56 Zoloft - PO 100 mg HS DONTA Administration Tiotropium [place] 1 puff 04/27/17 13:00 04/30/17 14:48 Spiriva - IH 1 puff DAILY DONTA Administration Topiramate 100 mg 04/25/17 22:00 04/30/17 22:56 Topamax - PO 100 mg BID DONTA Administration ASSESSMENT/PLAN: 62 year old female with past medical history of COPD on three liters of home oxygen, CAD status post cath with no stent placed, hypertension, hyperlipidemia , lupus, DANY on CPAP, type II diabetes, hypothyroidism, seizure disorder, and morbid obesity presented with shortness of breath, dry cough, subjective fevers , and lower extremity edema. #Acute on chronic copd exacerbation, mild -Received vanco/levaquin and 125 mg medrol in ED -Duonebs standing q4h and prn -Decrease Solu-Mederol to 40 BID -continue symbicort/singular 10 po hs -Spiriva restarted by pulmonary -Robitussin AC 5 ml q6h prn for cough -Pulmonary consult, Dr. Hyde -O2 as needed -Influenza swab negative -RSV negative -Legionella/strep pneumonia antigen pending #DANY -Continue home CPAP at night #CAD -Continue Asa 81 #HTN -Continue Lasix 40 mg daily and Losartan 50 mg daily #Diastolic CHF -Continue Lasix 40 mg daily #HLD -Continue Lipitor 10 mg po hs #Seizure d/o -Continue seizure medications, Carbamazapine 300 mg po bid, Topomax 100 mg po bid #SLE -continue Plaquenil 200 mg po bid, Pramipaxole 0.5 mg po bid -received 12.5 mg Methotrexate on 04/27. Patient receives 12.5 mg MTX on every tue morning. #DM -ISS achs -Levemir 22 units sq am -BGM achs #hypothyroidism -continue Synthroid 50 mcg po daily #FEN/GI -No IVF -Monitor BMP -Diabetic/sodium diet #PPx -Protonix 40 mg po daily -Heparin 5000 u sq tid #Dispo: Inpatient admission Visit type - Emergency Visit Emergency Visit: Yes ED Registration Date: 04/25/17 Care time: The patient presented to the Emergency Department on the above date and was hospitalized for further evaluation of their emergent condition. - New Patient This patient is new to me today: No - Critical Care Critical Care patient: No
[2017-05-01] MEDS ORDERED: PT OWN MED DRAWER 7, Y5N ONE ×2 (10:21→20:37)
[2017-05-01] MEDS: FUROSEMIDE 40 MG TABLET (FP) PO SCH (10:30)
[2017-05-01] MEDS: LOSARTAN POTASSIUM 50 MG TABLET (FP) PO SCH (10:30)
[2017-05-01] MEDS: PANTOPRAZOLE 40 MG TABLET (FP) PO SCH (10:30)
[2017-05-01] MEDS: carBAMazepine 200 MG TABLET PO SCH ×2 (10:31→21:28)
[2017-05-01] MEDS: HYDROXYCHLOROQUINE SO4 200 MG TABLET (FP) PO SCH ×2 (10:31→21:28)
[2017-05-01] MEDS: TOPIRAMATE 100 MG TABLET PO SCH ×2 (10:31→21:28)
[2017-05-01] MEDS: PRAMIPEXOLE DIHYDROCHLORIDE 0.5 MG TABLET PO SCH ×2 (10:31→21:28)
[2017-05-01] MEDS: LINZESS 145 MCG PO SCH (10:34)
[2017-05-01] MEDS: INCRUSE ELLIPTA IH SCH (10:35)
[2017-05-01] MEDS: TIOTROPIUM BROMIDE 18 MCG CAPSULES IH SCH (10:35)
[2017-05-01] MEDS: BUDESONIDE/FORMETEROL FUMARATE 160/4.5 mcg INHALER IH SCH ×2 (10:36→21:31)
--- NOTE | 2017-05-01 12:56 | PN ---
Progress Note (short form) - Note Progress Note: Feels better Still with Cough and SOB Blood sugar 200s No hypos Vital Signs Period Temp Pulse Resp BP Sys/Oconnell Pulse Ox Last 24 Hr 97.7 F-98.3 F 70-75 18-20 105-139/52-67 95 PE: AOx3 Neck: Supple, No JVD HEENT: PERRL, EOMI Lungs: CTA, diffusely diminished BS CVS: S1S2 Abd: Benign Ext: No edema Neuro: No focal deficit Current Medications Generic Name Dose Route Start Last Admin Trade Name Freq PRN Reason Stop Dose Admin Albuterol Sulfate 1 amp 04/27/17 13:35 04/30/17 22:15 Ventolin 0.5% - NEB 1 amp Q4H PRN Administration SHORTNESS OF BREATH Albuterol/Ipratropium 1 amp 05/01/17 11:22 Duoneb - NEB Q4H PRN SHORTNESS OF BREATH Atorvastatin Calcium 10 mg 04/25/17 22:00 04/30/17 22:55 Lipitor - PO 10 mg HS DONTA Administration Budesonide/Formoterol Fumarate 2 puff 04/25/17 22:00 05/01/17 10:36 Symbicort 160/4.5mcg - IH 2 puff BID DONTA Administration Carbamazepine 300 mg 04/25/17 22:00 05/01/17 10:31 Tegretol - PO 300 mg BID DONTA Administration Docusate Sodium 100 mg 04/28/17 14:00 05/01/17 06:05 Colace - PO 100 mg TID DONTA Administration Furosemide 40 mg 04/26/17 10:00 05/01/17 10:30 Lasix - PO 40 mg DAILY DONTA Administration Guaifenesin/Codeine Phosphate 5 ml 04/29/17 10:22 04/29/17 21:38 Robitussin Ac - PO 5 ml Q6H PRN Administration COUGH Heparin Sodium (Porcine) 5,000 unit 04/25/17 22:00 05/01/17 06:05 Heparin - SQ 5,000 unit TID DONTA Administration Hydroxychloroquine Sulfate 200 mg 04/25/17 22:00 05/01/17 10:31 Plaquenil - PO 200 mg BID DONTA Administration Insulin Aspart 0 units 04/30/17 22:00 04/30/17 23:02 Novolog SQ 8 units HS DONTA Administration Protocol Insulin Aspart 1 vial 04/30/17 16:30 05/01/17 12:27 Novolog Vial Sliding Scale - SQ 10 units TIDAC DONTA Administration Protocol Insulin Detemir 22 units 04/26/17 07:00 05/01/17 06:06 Levemir Vial SQ 22 units AM DONTA Administration Levothyroxine Sodium 50 mcg 04/26/17 07:00 05/01/17 06:10 Synthroid - PO 50 mcg DAILY@0700 DONTA Administration Losartan Potassium 50 mg 04/26/17 10:00 05/01/17 10:30 Cozaar - PO 50 mg DAILY DONTA Administration Methotrexate 12.5 mg 04/27/17 07:30 04/27/17 06:44 [place] - PO 12.5 mg We@0730 DONTA Administration Methylprednisolone Sodium Succinate 40 mg 05/01/17 22:00 Solu-Medrol - IVPUSH BID DONTA Montelukast Sodium 10 mg 04/25/17 22:00 04/30/17 22:55 Singulair - PO 10 mg HS DONTA Administration Nf(Linzess 145mcg 1 each 04/30/17 15:00 05/01/17 10:34 Capsule) PO 1 each DAILY DONTA Administration Nf(Incruse Ellipta 1 each 04/30/17 15:00 05/01/17 10:35 Inhaler)62.5mcg/Inh IH 1 each DAILY DONTA Administration Pantoprazole Sodium 40 mg 04/25/17 19:00 05/01/17 10:30 Protonix - PO 40 mg DAILY DONTA Administration Pramipexole Dihydrochloride 0.5 mg 04/25/17 22:00 05/01/17 10:31 Mirapex - PO 0.5 mg BID DONTA Administration Sertraline HCl 100 mg 04/25/17 22:00 04/30/17 22:56 Zoloft - PO 100 mg HS DONTA Administration Tiotropium [place] 1 puff 04/27/17 13:00 05/01/17 10:35 Spiriva - IH 1 puff DAILY DONTA Administration Topiramate 100 mg 04/25/17 22:00 05/01/17 10:31 Topamax - PO 100 mg BID DONTA Administration Current Medications Generic Name Dose Route Start Last Admin Trade Name Freq PRN Reason Stop Dose Admin Albuterol Sulfate 1 amp 04/27/17 13:35 04/30/17 22:15 Ventolin 0.5% - NEB 1 amp Q4H PRN Administration SHORTNESS OF BREATH Albuterol/Ipratropium 1 amp 05/01/17 11:22 Duoneb - NEB Q4H PRN SHORTNESS OF BREATH Atorvastatin Calcium 10 mg 04/25/17 22:00 04/30/17 22:55 Lipitor - PO 10 mg HS DONTA Administration Budesonide/Formoterol Fumarate 2 puff 04/25/17 22:00 05/01/17 10:36 Symbicort 160/4.5mcg - IH 2 puff BID DONTA Administration Carbamazepine 300 mg 04/25/17 22:00 05/01/17 10:31 Tegretol - PO 300 mg BID DONTA Administration Docusate Sodium 100 mg 04/28/17 14:00 05/01/17 06:05 Colace - PO 100 mg TID DONTA Administration Furosemide 40 mg 04/26/17 10:00 05/01/17 10:30 Lasix - PO 40 mg DAILY DONTA Administration Guaifenesin/Codeine Phosphate 5 ml 04/29/17 10:22 04/29/17 21:38 Robitussin Ac - PO 5 ml Q6H PRN Administration COUGH Heparin Sodium (Porcine) 5,000 unit 04/25/17 22:00 05/01/17 06:05 Heparin - SQ 5,000 unit TID DONTA Administration Hydroxychloroquine Sulfate 200 mg 04/25/17 22:00 05/01/17 10:31 Plaquenil - PO 200 mg BID DONTA Administration Insulin Aspart 0 units 04/30/17 22:00 04/30/17 23:02 Novolog SQ 8 units HS DONTA Administration Protocol Insulin Aspart 1 vial 04/30/17 16:30 05/01/17 12:27 Novolog Vial Sliding Scale - SQ 10 units TIDAC [facility] Administration Protocol Insulin Detemir 22 units 04/26/17 07:00 05/01/17 06:06 Levemir Vial SQ 22 units AM DONTA Administration Levothyroxine Sodium 50 mcg 04/26/17 07:00 05/01/17 06:10 Synthroid - PO 50 mcg DAILY@0700 DONTA Administration Losartan Potassium 50 mg 04/26/17 10:00 05/01/17 10:30 Cozaar - PO 50 mg DAILY DONTA Administration Methotrexate 12.5 mg 04/27/17 07:30 04/27/17 06:44 Mex[place] - PO 12.5 mg We@0730 DONTA Administration Methylprednisolone Sodium Succinate 40 mg 05/01/17 22:00 Solu-Medrol - IVPUSH BID DONTA Montelukast Sodium 10 mg 04/25/17 22:00 04/30/17 22:55 Singulair - PO 10 mg HS DONTA Administration Nf(Linzess 145mcg 1 each 04/30/17 15:00 05/01/17 10:34 Capsule) PO 1 each DAILY DONTA Administration Nf(Incruse Ellipta 1 each 04/30/17 15:00 05/01/17 10:35 Inhaler)62.5mcg/Inh IH 1 each DAILY DONTA Administration Pantoprazole Sodium 40 mg 04/25/17 19:00 05/01/17 10:30 Protonix - PO 40 mg DAILY DONTA Administration Pramipexole Dihydrochloride 0.5 mg 04/25/17 22:00 05/01/17 10:31 Mirapex - PO 0.5 mg BID DONTA Administration Sertraline HCl 100 mg 04/25/17 22:00 04/30/17 22:56 Zoloft - PO 100 mg HS DONTA Administration Tiotropium [place] 1 puff 04/27/17 13:00 05/01/17 10:35 Spiriva - IH 1 puff DAILY DONTA Administration Topiramate 100 mg 04/25/17 22:00 05/01/17 10:31 Topamax - PO 100 mg BID DONTA Administration AP: T2DM with hyperlgycemia COPD exacerbation Sleep Apnes Obesity Hypothyroidism BGM QACHS Levemir 22 units daily in morning Continue novolog Coverage, will not increase dose as Methylprednisone dose is decreased to 40mg BID IV steroids O2 Bronchodilators Levothyroxine Methotrexate Hydroxycholorquin Problem List - Problems (1) COPD exacerbation Code(s): J44.1 - CHRONIC OBSTRUCTIVE PULMONARY DISEASE W (ACUTE) EXACERBATION (2) Hyperglycemia Code(s): R73.9 - HYPERGLYCEMIA, UNSPECIFIED (3) Obstructive sleep apnea (adult) (pediatric) Code(s): G47.33 - OBSTRUCTIVE SLEEP APNEA (ADULT) (PEDIATRIC)
[2017-05-01] MEDS: ATORVASTATIN CA 10 MG TABLET (FP) PO SCH (21:28)
[2017-05-01] MEDS: MONTELUKAST NA 10 MG TABLET PO SCH (21:28)
[2017-05-01] MEDS: SERTRALINE HCL 50 MG TABLET (FP) PO SCH (21:28)
[2017-05-01] MEDS: Insulin (LOG) Aspart 100 UNITS/ML VIAL SQ SCH (21:39)
[2017-05-02] MEDS ORDERED: PT OWN MED DRAWER 7, Y5N ONE ×4 (05:02→10:38)
[2017-05-02] MEDS: HEPARIN NA (PORCINE) 5,000 UNITS/ML 1ML VIAL SQ SCH ×3 (05:42→21:50)
[2017-05-02] MEDS: DOCUSATE SODIUM 100 MG CAPSULE (FP) PO SCH ×3 (05:42→21:38)
[2017-05-02] MEDS: INSULIN SLIDING SCALE (NOVOLOG) 1 VIAL SQ SCH ×4 (06:13→17:25)
[2017-05-02] MEDS: INSULIN DETEMIR 100 UNITS/ML MDV SQ SCH (06:16)
[2017-05-02] MEDS: LEVOTHYROXINE NA 50 MCG TABLET (FP) PO SCH (06:16)
[2017-05-02] MEDS: ALBUTEROL SO4 2.5/IPRATROPIUM 0.5 INH SOL 3 ML VIAL.NEB. NEB PRN ×2 (07:22→11:06)
[2017-05-02] MEDS: BUDESONIDE/FORMETEROL FUMARATE 160/4.5 mcg INHALER IH SCH ×2 (10:23→21:38)
[2017-05-02] MEDS: TIOTROPIUM BROMIDE 18 MCG CAPSULES IH SCH (10:25)
[2017-05-02] MEDS: PANTOPRAZOLE 40 MG TABLET (FP) PO SCH (10:26)
[2017-05-02] MEDS: FUROSEMIDE 40 MG TABLET (FP) PO SCH (10:26)
[2017-05-02] MEDS: methylPREDNISolone NA SUCC 40 MG/1 ML VIAL IVPUSH SCH ×2 (10:26→21:39)
[2017-05-02] MEDS: LOSARTAN POTASSIUM 50 MG TABLET (FP) PO SCH (10:26)
[2017-05-02] MEDS: HYDROXYCHLOROQUINE SO4 200 MG TABLET (FP) PO SCH ×2 (10:27→21:40)
[2017-05-02] MEDS: PRAMIPEXOLE DIHYDROCHLORIDE 0.5 MG TABLET PO SCH ×2 (10:27→21:39)
[2017-05-02] MEDS: carBAMazepine 200 MG TABLET PO SCH ×2 (10:27→21:39)
[2017-05-02] MEDS: TOPIRAMATE 100 MG TABLET PO SCH ×2 (10:28→21:40)
[2017-05-02] MEDS: INCRUSE ELLIPTA IH SCH (10:29)
[2017-05-02] MEDS: LINZESS 145 MCG PO SCH (10:29)
[2017-05-02] MEDS: guaiFENesin/CODEINE 5 ML UNIT-DOSE CUPS PO PRN (10:39)
--- NOTE | 2017-05-02 11:09 | PN ---
Progress Note (short form) - Note Progress Note: Feels better Still with Cough and SOB Blood sugar slightly better No hypos Vital Signs Period Temp Pulse Resp BP Sys/Oconnell Pulse Ox Last 24 Hr 97.4 F-98.6 F 79-88 18-20 114-154/61-93 100 PE: AOx3 Neck: Supple, No JVD HEENT: PERRL, EOMI Lungs: CTA, diffusely diminished BS CVS: S1S2 Abd: Benign Ext: No edema Neuro: No focal deficit CMP Sodium 135 mmol/L (136-145) L 04/29/17 07:00 Potassium 4.3 mmol/L (3.5-5.1) 04/29/17 07:00 Chloride 99 mmol/L (98-107) 04/29/17 07:00 Carbon Dioxide 26 mmol/L (21-32) 04/29/17 07:00 Anion Gap 10 (8-16) 04/29/17 07:00 BUN 26 mg/dL (7-18) H 04/29/17 07:00 Creatinine 1.2 mg/dL (0.55-1.02) H 04/29/17 07:00 Creat Clearance w eGFR 56.37 (>60) 04/25/17 13:45 POC Glucometer 272 UNITS (80-120) 05/02/17 05:41 Random Glucose 290 mg/dL (74-106) H 04/29/17 07:00 Calcium 9.1 mg/dL (8.5-10.1) 04/29/17 07:00 Phosphorus 2.6 mg/dL (2.5-4.9) 04/25/17 13:45 Magnesium 2.2 mg/dL (1.8-2.4) 04/25/17 13:45 Total Bilirubin 0.3 mg/dL (0.2-1.0) D 04/25/17 13:45 AST 17 U/L (15-37) 04/25/17 13:45 ALT 31 U/L (12-78) 04/25/17 13:45 Alkaline Phosphatase 122 U/L (45-117) H 04/25/17 13:45 Creatine Kinase 82 IU/L (26-192) 04/26/17 13:20 Troponin I < 0.02 ng/ml (0.00-0.05) 04/26/17 13:20 B-Natriuretic Peptide 66.59 pg/ml (5-125) 04/25/17 13:45 Total Protein 7.3 g/dl (6.4-8.2) 04/25/17 13:45 Albumin 3.5 g/dl (3.4-5.0) 04/25/17 13:45 TSH 0.90 uIU/ml (0.358-3.74) 04/25/17 13:45 Current Medications Generic Name Dose Route Start Last Admin Trade Name Freq PRN Reason Stop Dose Admin Albuterol Sulfate 1 amp 04/27/17 13:35 04/30/17 22:15 Ventolin 0.5% - NEB 1 amp Q4H PRN Administration SHORTNESS OF BREATH Albuterol/Ipratropium 1 amp 05/01/17 11:22 05/02/17 07:22 Duoneb - NEB 1 amp Q4H PRN Administration SHORTNESS OF BREATH Atorvastatin Calcium 10 mg 04/25/17 22:00 05/01/17 21:28 Lipitor - PO 10 mg HS DONTA Administration Budesonide/Formoterol Fumarate 2 puff 04/25/17 22:00 05/02/17 10:23 Symbicort 160/4.5mcg - IH 2 puff BID DONTA Administration Carbamazepine 300 mg 04/25/17 22:00 05/02/17 10:27 Tegretol - PO 300 mg BID DONTA Administration Docusate Sodium 100 mg 04/28/17 14:00 05/02/17 05:42 Colace - PO 100 mg TID DONTA Administration Furosemide 40 mg 04/26/17 10:00 05/02/17 10:26 Lasix - PO 40 mg DAILY DONTA Administration Guaifenesin/Codeine Phosphate 5 ml 04/29/17 10:22 05/02/17 10:39 Robitussin Ac - PO 5 ml Q6H PRN Administration COUGH Heparin Sodium (Porcine) 5,000 unit 04/25/17 22:00 05/02/17 05:42 Heparin - SQ 5,000 unit TID DONTA Administration Hydroxychloroquine Sulfate 200 mg 04/25/17 22:00 05/02/17 10:27 Plaquenil - PO 200 mg BID DONTA Administration Insulin Aspart 0 units 04/30/17 22:00 05/01/17 21:39 Novolog SQ Not Given HS DONTA Protocol Insulin Aspart 1 vial 04/30/17 16:30 05/02/17 06:13 Novolog Vial Sliding Scale - SQ 10 units TIDAC DONTA Administration Protocol Insulin Detemir 22 units 04/26/17 07:00 05/02/17 06:16 Levemir Vial SQ 22 units AM DONTA Administration Levothyroxine Sodium 50 mcg 04/26/17 07:00 05/02/17 06:16 Synthroid - PO 50 mcg DAILY@0700 DONTA Administration Losartan Potassium 50 mg 04/26/17 10:00 05/02/17 10:26 Cozaar - PO 50 mg DAILY DONTA Administration Methotrexate 12.5 mg 04/27/17 07:30 04/27/17 06:44 Mexate - PO 12.5 mg We@0730 DONTA Administration Methylprednisolone Sodium Succinate 40 mg 05/01/17 22:00 05/02/17 10:26 Solu-Medrol - IVPUSH 40 mg BID DONTA Administration Montelukast Sodium 10 mg 04/25/17 22:00 05/01/17 21:28 Singulair - PO 10 mg HS DONTA Administration Nf(Linzess 145mcg 1 each 04/30/17 15:00 05/02/17 10:29 Capsule) PO 1 each DAILY DONTA Administration Nf(Incruse Ellipta 1 each 04/30/17 15:00 05/02/17 10:29 Inhaler)62.5mcg/Inh IH 1 each DAILY DONTA Administration Pantoprazole Sodium 40 mg 04/25/17 19:00 05/02/17 10:26 Protonix - PO 40 mg DAILY DONTA Administration Pramipexole Dihydrochloride 0.5 mg 04/25/17 22:00 05/02/17 10:27 Mirapex - PO 0.5 mg BID DONTA Administration Sertraline HCl 100 mg 04/25/17 22:00 05/01/17 21:28 Zoloft - PO 100 mg HS DONTA Administration Tiotropium [place] 1 puff 04/27/17 13:00 05/02/17 10:25 Spiriva - IH 1 puff DAILY DONTA Administration Topiramate 100 mg 04/25/17 22:00 05/02/17 10:28 Topamax - PO 100 mg BID DONTA Administration AP: T2DM with hyperlgycemia COPD exacerbation Sleep Apnes Obesity Hypothyroidism BGM QACHS Increase Levemir 25 units daily in morning INcrease novolog Coverage, IV steroids O2 Bronchodilators Levothyroxine Methotrexate Hydroxycholorquin Problem List - Problems (1) COPD exacerbation Code(s): J44.1 - CHRONIC OBSTRUCTIVE PULMONARY DISEASE W (ACUTE) EXACERBATION (2) Hyperglycemia Code(s): R73.9 - HYPERGLYCEMIA, UNSPECIFIED (3) Obstructive sleep apnea (adult) (pediatric) Code(s): G47.33 - OBSTRUCTIVE SLEEP APNEA (ADULT) (PEDIATRIC)
--- NOTE | 2017-05-02 12:25 | PN ---
Teaching Attending Note Name of Resident: Milton Zimmerman ATTENDING PHYSICIAN STATEMENT I saw and evaluated the patient. I reviewed the resident's note and discussed the case with the resident. I agree with the resident's findings and plan as documented. SUBJECTIVE: Patient complains of wheezing and SOB with exertion. OBJECTIVE: Vital Signs Period Temp Pulse Resp BP Sys/Oconnell Pulse Ox Last 24 Hr 97.4 F-98.6 F 79-88 18-20 114-154/61-93 100 HEART: S1S2, RRR LUNGS: Bilateral wheezes ABDOMEN: Obese, soft, non-tender, non-distended, normal BS EXTREMITIES: No edema Laboratory Results - last 24 hr 05/01/17 05/01/17 05/01/17 12:26 17:22 21:39 POC Glucometer 270 280 195 05/02/17 05/02/17 05:41 11:11 POC Glucometer 272 320 Current Medications Generic Name Dose Route Start Last Admin Trade Name Freq PRN Reason Stop Dose Admin Albuterol Sulfate 1 amp 04/27/17 13:35 04/30/17 22:15 Ventolin 0.5% - NEB 1 amp Q4H PRN Administration SHORTNESS OF BREATH Albuterol/Ipratropium 1 amp 05/01/17 11:22 05/02/17 11:06 Duoneb - NEB 1 amp Q4H PRN Administration SHORTNESS OF BREATH Atorvastatin Calcium 10 mg 04/25/17 22:00 05/01/17 21:28 Lipitor - PO 10 mg HS DONTA Administration Budesonide/Formoterol Fumarate 2 puff 04/25/17 22:00 05/02/17 10:23 Symbicort 160/4.5mcg - IH 2 puff BID DONTA Administration Carbamazepine 300 mg 04/25/17 22:00 05/02/17 10:27 Tegretol - PO 300 mg BID DONTA Administration Docusate Sodium 100 mg 04/28/17 14:00 05/02/17 05:42 Colace - PO 100 mg TID DONTA Administration Furosemide 40 mg 04/26/17 10:00 05/02/17 10:26 Lasix - PO 40 mg DAILY DONTA Administration Guaifenesin/Codeine Phosphate 5 ml 04/29/17 10:22 05/02/17 10:39 Robitussin Ac - PO 5 ml Q6H PRN Administration COUGH Heparin Sodium (Porcine) 5,000 unit 04/25/17 22:00 05/02/17 05:42 Heparin - SQ 5,000 unit TID DONTA Administration Hydroxychloroquine Sulfate 200 mg 04/25/17 22:00 05/02/17 10:27 Plaquenil - PO 200 mg BID DONTA Administration Insulin Aspart 0 units 04/30/17 22:00 05/01/17 21:39 Novolog SQ Not Given HS DONTA Protocol Insulin Aspart 1 vial 05/02/17 11:30 05/02/17 12:20 Novolog Vial Sliding Scale - SQ 16 unit TIDAC DONTA Administration Protocol Insulin Detemir 25 units 05/03/17 07:00 Levemir Vial SQ AM DONTA Levothyroxine Sodium 50 mcg 04/26/17 07:00 05/02/17 06:16 Synthroid - PO 50 mcg DAILY@0700 DONTA Administration Losartan Potassium 50 mg 04/26/17 10:00 05/02/17 10:26 Cozaar - PO 50 mg DAILY DONTA Administration Methotrexate 12.5 mg 04/27/17 07:30 04/27/17 06:44 Mexate - PO 12.5 mg We@0730 DONTA Administration Methylprednisolone Sodium Succinate 40 mg 05/01/17 22:00 05/02/17 10:26 Solu-Medrol - IVPUSH 40 mg BID DONTA Administration Montelukast Sodium 10 mg 04/25/17 22:00 05/01/17 21:28 Singulair - PO 10 mg HS DONTA Administration Nf(Linzess 145mcg 1 each 04/30/17 15:00 05/02/17 10:29 Capsule) PO 1 each DAILY DONTA Administration Nf(Incruse Ellipta 1 each 04/30/17 15:00 05/02/17 10:29 Inhaler)62.5mcg/Inh IH 1 each DAILY DONTA Administration Pantoprazole Sodium 40 mg 04/25/17 19:00 05/02/17 10:26 Protonix - PO 40 mg DAILY DONTA Administration Pramipexole Dihydrochloride 0.5 mg 04/25/17 22:00 05/02/17 10:27 Mirapex - PO 0.5 mg BID DONTA Administration Sertraline HCl 100 mg 04/25/17 22:00 05/01/17 21:28 Zoloft - PO 100 mg HS DONTA Administration Tiotropium [place] 1 puff 04/27/17 13:00 05/02/17 10:25 Spiriva - IH 1 puff DAILY DONTA Administration Topiramate 100 mg 04/25/17 22:00 05/02/17 10:28 Topamax - PO 100 mg BID DONTA Administration ASSESSMENT AND PLAN: This is a 62 year old woman with a history of COPD, chronic hypoxic respiratory failure, CAD, HTN, chronic diastolic HF, hyperlipidemia, lupus, DANY, type 2 DM, hypothyroidism, seizure disorder, morbid obesity who presented to the ED with shortness of breath. 1. Acute exacerbation of COPD - SoluMedrol being tapered - Continue Symbicort, Spiriva, Singulair, DuoNeb, oxygen 2. CAD - Continue aspirin 3. HTN - Continue Cozaar, Lasix 4. Chronic diastolic heart failure - Stable - Continue Lasix 5. Chronic hypoxic respiratory failure secondary to COPD, DANY, CHF 6. Hyperlipidemia - Continue Lipitor 7. Seizure disorder - Continue Tegretol, Topamax 8. Lupus - Continue Plaquenil, Methotrexate 9. Type 2 DM - Continue Levemir, Novolog sliding scale 10. Hypothyroidism - Continue Synthroid 11. Morbid obesity 12. DANY - Continue CPAP at night
--- NOTE | 2017-05-02 15:36 | PN ---
Physical Exam: SUBJECTIVE: Patient seen and examined No acute events overnight. Patient feels the same as yesterday. OBJECTIVE: Vital Signs Period Temp Pulse Resp BP Sys/Oconnell Pulse Ox Last 24 Hr 97.4 F-98.6 F 79-94 18-20 114-154/60-93 98-100 GENERAL: Awake, alert, and fully oriented, in no acute distress. HEAD: Normal with no signs of trauma. EYES: Pupils equal, round and reactive to light, Extraocular movements intact, sclera anicteric, conjunctiva clear. No lid lag. EARS, NOSE, THROAT: Moist mucous membranes, mild erythema in posterior oropharynx. NECK: Supple without lymphadenopathy, JVD, or masses. LUNGS: Decreased breath sounds throughout, poor air entry. No crackles or rhonchi appreciated HEART: +S1S2, RRR, distant heart sounds ABDOMEN: +Obese, Soft, nontender, not distended, normoactive bowel sounds, no guarding, no rebound, no masses. MUSCULOSKELETAL: No CVA tenderness. UPPER EXTREMITIES: 2+ pulses, warm, well-perfused. No cyanosis. No clubbing. No peripheral edema. LOWER EXTREMITIES: 2+ pulses, warm, well-perfused. No calf tenderness. trace peripheral edema. NEUROLOGICAL: Cranial nerves II-XII intact. Strength 5/5 in bilateraly upper and lower extremities, sensation intact b/l, 1-2+ reflexes b/l, Normal speech, finger to nose intact, gait not observed. PSYCHIATRIC: Cooperative. Good eye contact. Appropriate mood and affect. SKIN: Warm, dry Laboratory Results - last 24 hr 05/01/17 05/01/17 05/02/17 17:22 21:39 05:41 POC Glucometer 280 195 272 05/02/17 11:11 POC Glucometer 320 Active Medications Generic Name Dose Route Start Last Admin Trade Name Freq PRN Reason Stop Dose Admin Albuterol Sulfate 1 amp 05/02/17 16:00 Ventolin 0.5% - NEB Q4H DONTA Atorvastatin Calcium 10 mg 04/25/17 22:00 05/01/17 21:28 Lipitor - PO 10 mg HS DONTA Administration Budesonide/Formoterol Fumarate 2 puff 04/25/17 22:00 05/02/17 10:23 Symbicort 160/4.5mcg - IH 2 puff BID DONTA Administration Carbamazepine 300 mg 04/25/17 22:00 05/02/17 10:27 Tegretol - PO 300 mg BID DONTA Administration Docusate Sodium 100 mg 04/28/17 14:00 05/02/17 14:28 Colace - PO 100 mg TID DONTA Administration Furosemide 40 mg 04/26/17 10:00 05/02/17 10:26 Lasix - PO 40 mg DAILY DONTA Administration Guaifenesin/Codeine Phosphate 5 ml 04/29/17 10:22 05/02/17 10:39 Robitussin Ac - PO 5 ml Q6H PRN Administration COUGH Heparin Sodium (Porcine) 5,000 unit 04/25/17 22:00 05/02/17 14:28 Heparin - SQ 5,000 unit TID DONTA Administration Hydroxychloroquine Sulfate 200 mg 04/25/17 22:00 05/02/17 10:27 Plaquenil - PO 200 mg BID DONTA Administration Insulin Aspart 0 units 04/30/17 22:00 05/01/17 21:39 Novolog SQ Not Given HS [facility] Protocol Insulin Aspart 1 vial 05/02/17 11:30 05/02/17 12:20 Novolog Vial Sliding Scale - SQ 16 unit TIDAC DONTA Administration Protocol Insulin Detemir 25 units 05/03/17 07:00 Levemir Vial SQ AM [facility] Levothyroxine Sodium 50 mcg 04/26/17 07:00 05/02/17 06:16 Synthroid - PO 50 mcg DAILY@0700 DONTA Administration Losartan Potassium 50 mg 04/26/17 10:00 05/02/17 10:26 Cozaar - PO 50 mg DAILY DONTA Administration Methotrexate 12.5 mg 04/27/17 07:30 04/27/17 06:44 Mexate - PO 12.5 mg We@0730 DONTA Administration Methylprednisolone Sodium Succinate 40 mg 05/01/17 22:00 05/02/17 10:26 Solu-Medrol - IVPUSH 40 mg BID DONTA Administration Montelukast Sodium 10 mg 04/25/17 22:00 05/01/17 21:28 Singulair - PO 10 mg HS DONTA Administration Nf(Linzess 145mcg 1 each 04/30/17 15:00 05/02/17 10:29 Capsule) PO 1 each DAILY DONTA Administration Nf(Incruse Ellipta 1 each 04/30/17 15:00 05/02/17 10:29 Inhaler)62.5mcg/Inh IH 1 each DAILY DONTA Administration Pantoprazole Sodium 40 mg 04/25/17 19:00 05/02/17 10:26 Protonix - PO 40 mg DAILY DONTA Administration Pramipexole Dihydrochloride 0.5 mg 04/25/17 22:00 05/02/17 10:27 Mirapex - PO 0.5 mg BID DONTA Administration Sertraline HCl 100 mg 04/25/17 22:00 05/01/17 21:28 Zoloft - PO 100 mg HS DONTA Administration Tiotropium [place] 1 puff 04/27/17 13:00 05/02/17 10:25 Spiriva - IH 1 puff DAILY DONTA Administration Topiramate 100 mg 04/25/17 22:00 05/02/17 10:28 Topamax - PO 100 mg BID DONTA Administration ASSESSMENT/PLAN: 62 year old female with past medical history of COPD on three liters of home oxygen, CAD status post cath with no stent placed, hypertension, hyperlipidemia , lupus, DANY on CPAP, type II diabetes, hypothyroidism, seizure disorder, and morbid obesity presented with shortness of breath, dry cough, subjective fevers , and lower extremity edema. #Acute on chronic copd exacerbation, mild -Received vanco/levaquin and 125 mg medrol in ED -albuterol standing q4h and prn -Continue Solu-Mederol 40 BID -continue symbicort/singular 10 po hs -Spiriva restarted by pulmonary -Robitussin AC 5 ml q6h prn for cough -Pulmonary consult, Dr. Hyde -O2 as needed -Influenza swab negative -RSV negative -Legionella/strep pneumonia antigen pending #DANY -Continue home CPAP at night #CAD -Continue [place] 81 #HTN -Continue Lasix 40 mg daily and Losartan 50 mg daily #Diastolic CHF -Continue Lasix 40 mg daily #HLD -Continue Lipitor 10 mg po hs #Seizure d/o -Continue seizure medications, Carbamazapine 300 mg po bid, Topomax 100 mg po bid #SLE -continue Plaquenil 200 mg po bid, Pramipaxole 0.5 mg po bid -received 12.5 mg Methotrexate on 04/27. Patient receives 12.5 mg MTX on every tue morning. #DM -ISS achs -Levemir 22 units sq am -BGM achs #hypothyroidism -continue Synthroid 50 mcg po daily #FEN/GI -No IVF -Monitor BMP -Diabetic/sodium diet #PPx -Protonix 40 mg po daily -Heparin 5000 u sq tid #Dispo: Inpatient admission Visit type - Emergency Visit Emergency Visit: Yes ED Registration Date: 04/25/17 Care time: The patient presented to the Emergency Department on the above date and was hospitalized for further evaluation of their emergent condition. - New Patient This patient is new to me today: No - Critical Care Critical Care patient: No
--- NOTE | 2017-05-02 17:09 | PN ---
Progress Note, Physician History of Present Illness: Dyspnea and cough improved-was able to ambulate in the mora today - Current Medication List Current Medications: Active Medications Albuterol Sulfate (Ventolin 0.5% -) 1 amp NEB Q4H [facility] Atorvastatin Calcium (Lipitor -) 10 mg PO HS [facility] Last Admin: 05/01/17 21:28 Dose: 10 mg Budesonide/Formoterol Fumarate (Symbicort 160/4.5mcg -) 2 puff IH BID [facility] Last Admin: 05/02/17 10:23 Dose: 2 puff Carbamazepine (Tegretol -) 300 mg PO BID [facility] Last Admin: 05/02/17 10:27 Dose: 300 mg Docusate Sodium (Colace -) 100 mg PO TID [facility] Last Admin: 05/02/17 14:28 Dose: 100 mg Furosemide (Lasix -) 40 mg PO DAILY [facility] Last Admin: 05/02/17 10:26 Dose: 40 mg Guaifenesin/Codeine Phosphate (Robitussin Ac -) 5 ml PO Q6H PRN PRN Reason: COUGH Last Admin: 05/02/17 10:39 Dose: 5 ml Heparin Sodium (Porcine) (Heparin -) 5,000 unit SQ TID [facility] Last Admin: 05/02/17 14:28 Dose: 5,000 unit Hydroxychloroquine Sulfate (Plaquenil -) 200 mg PO BID [facility] Last Admin: 05/02/17 10:27 Dose: 200 mg Insulin Aspart (Novolog) 0 units SQ HS [facility] PRN Reason: Protocol Last Admin: 05/01/17 21:39 Dose: Not Given Insulin Aspart (Novolog Vial Sliding Scale -) 1 vial SQ TIDAC [facility] PRN Reason: Protocol Last Admin: 05/02/17 12:20 Dose: 16 unit Insulin Detemir (Levemir Vial) 25 units SQ AM [facility] Levothyroxine Sodium (Synthroid -) 50 mcg PO DAILY@0700 [facility] Last Admin: 05/02/17 06:16 Dose: 50 mcg Losartan Potassium (Cozaar -) 50 mg PO DAILY [facility] Last Admin: 05/02/17 10:26 Dose: 50 mg Methotrexate (Mexate -) 12.5 mg PO We@0730 [facility] Last Admin: 04/27/17 06:44 Dose: 12.5 mg Methylprednisolone Sodium Succinate (Solu-Medrol -) 40 mg IVPUSH BID [facility] Last Admin: 05/02/17 10:26 Dose: 40 mg Montelukast Sodium (Singulair -) 10 mg PO HS [facility] Last Admin: 05/01/17 21:28 Dose: 10 mg Nf(Linzess 145mcg (Capsule)) 1 each PO DAILY [facility] Last Admin: 05/02/17 10:29 Dose: 1 each Nf(Incruse Ellipta (Inhaler)62.5mcg/Inh) 1 each IH DAILY [facility] Last Admin: 05/02/17 10:29 Dose: 1 each Pantoprazole Sodium (Protonix -) 40 mg PO DAILY [facility] Last Admin: 05/02/17 10:26 Dose: 40 mg Pramipexole Dihydrochloride (Mirapex -) 0.5 mg PO BID [facility] Last Admin: 05/02/17 10:27 Dose: 0.5 mg Sertraline HCl (Zoloft -) 100 mg PO HS [facility] Last Admin: 05/01/17 21:28 Dose: 100 mg Tiotropium [place] (Spiriva -) 1 puff IH DAILY [facility] Last Admin: 05/02/17 10:25 Dose: 1 puff Topiramate (Topamax -) 100 mg PO BID [facility] Last Admin: 05/02/17 10:28 Dose: 100 mg - Objective Vital Signs: Vital Signs Temperature 98.0 F 05/02/17 14:32 Pulse Rate 94 H 05/02/17 14:32 Respiratory Rate 20 05/02/17 14:32 Blood Pressure 138/60 05/02/17 14:32 O2 Sat by Pulse Oximetry (%) 98 05/02/17 09:00 Constitutional: Yes: No Distress Eyes: No: Sclera Icterus HENT: Yes: Atraumatic, Normocephalic Neck: Yes: Supple, Trachea Midline Cardiovascular: Yes: Regular Rate and Rhythm. No: JVD Respiratory: Yes: CTA Bilaterally Gastrointestinal: Yes: Soft, Tenderness Edema: LLE: Trace, RLE: Trace Neurological: Yes: Alert, Oriented Labs: CBC, BMP 04/26/17 06:30 04/29/17 07:00 INR, PTT INR 1.04 (0.82-1.09) 04/25/17 13:45 Problem List - Problems (1) Obstructive sleep apnea (adult) (pediatric) Code(s): G47.33 - OBSTRUCTIVE SLEEP APNEA (ADULT) (PEDIATRIC) (2) COPD exacerbation Code(s): J44.1 - CHRONIC OBSTRUCTIVE PULMONARY DISEASE W (ACUTE) EXACERBATION (3) Morbid (severe) obesity due to excess calories Code(s): E66.01 - MORBID (SEVERE) OBESITY DUE TO EXCESS CALORIES (4) SLE (systemic lupus erythematosus) Code(s): M32.9 - SYSTEMIC LUPUS ERYTHEMATOSUS, UNSPECIFIED (5) Seizure disorder Code(s): G40.909 - EPILEPSY, UNSP, NOT INTRACTABLE, WITHOUT STATUS EPILEPTICUS Assessment/Plan Acute exacerbation COPD:improving respiratory status Plan: Guaifenesin with codeine 5 cc q 4 hours PRN Spiriva daily Systemic steroids being tapered O2 to maintain SaO2 greater than 90 AutoPap: patient is using her own mask and AutoPap machine Bronchodilators
[2017-05-02] MEDS: ALBUTEROL SO4 0.5 % INH SOLN 2.5 MG/0.5 ML VIAL.NEB. NEB SCH ×2 (19:14→21:00)
[2017-05-02] MEDS: ATORVASTATIN CA 10 MG TABLET (FP) PO SCH (21:38)
[2017-05-02] MEDS: MONTELUKAST NA 10 MG TABLET PO SCH (21:38)
[2017-05-02] MEDS: SERTRALINE HCL 50 MG TABLET (FP) PO SCH (21:44)
[2017-05-02] MEDS: Insulin (LOG) Aspart 100 UNITS/ML VIAL SQ SCH (21:55)
[2017-05-03] MEDS: ALBUTEROL SO4 0.5 % INH SOLN 2.5 MG/0.5 ML VIAL.NEB. NEB SCH ×6 (00:41→21:00)
[2017-05-03] MEDS: DOCUSATE SODIUM 100 MG CAPSULE (FP) PO SCH ×3 (06:30→22:07)
[2017-05-03] MEDS: INSULIN SLIDING SCALE (NOVOLOG) 1 VIAL SQ SCH ×4 (06:32→17:33)
[2017-05-03] MEDS: LEVOTHYROXINE NA 50 MCG TABLET (FP) PO SCH (06:36)
[2017-05-03] MEDS ORDERED: INSULIN DETEMIR 100 UNITS/ML MDV SQ SCH (07:00)
[2017-05-03] MEDS ORDERED: PT OWN MED DRAWER 7, Y5N ONE ×3 (08:19→10:11)
[2017-05-03 08:49] LABS: BASO % 0.9 % (0-2.0); EOS % 0.5 % (0-4.5); HEMATOCRIT 35.8 % (32.4-45.2); HEMOGLOBIN 11.9 GM/dL (10.7-15.3); LYMPH % 28.1 % (8-40); MCH 31.1 pg (25.7-33.7); MCHC 33.2 g/dl (32.0-36.0); MEAN CELL VOLUME 93.7 fl (80-96); MEAN PLT VOLUME 7.8 fl (7.5-11.1); MONO % 4.8 % (3.8-10.2); NEUT % 65.7 % (42.8-82.8); PLATELET COUNT 346 K/MM3 (134-434); RBC 3.82 M/mm3 (3.60-5.2); RDW 16.5 % (11.6-15.6); WHITE BLOOD COUNT 10.6 K/mm3 (4.0-10.0)
[2017-05-03 09:13] LABS: ANION GAP 10 (8-16); BLOOD UREA NITROGEN 23 mg/dL (7-18); CALCIUM 9.5 mg/dL (8.5-10.1); CHLORIDE 102 mmol/L (98-107); CO2 26 mmol/L (21-32); GLUCOSE,RANDOM 162 mg/dL (74-106); POTASSIUM 4.2 mmol/L (3.5-5.1); SODIUM 138 mmol/L (136-145)
[2017-05-03] MEDS: LOSARTAN POTASSIUM 50 MG TABLET (FP) PO SCH (09:46)
[2017-05-03] MEDS: FUROSEMIDE 40 MG TABLET (FP) PO SCH (09:46)
[2017-05-03] MEDS: PANTOPRAZOLE 40 MG TABLET (FP) PO SCH (09:47)
[2017-05-03] MEDS: HYDROXYCHLOROQUINE SO4 200 MG TABLET (FP) PO SCH ×2 (09:47→22:07)
[2017-05-03] MEDS: methylPREDNISolone NA SUCC 40 MG/1 ML VIAL IVPUSH SCH (09:47)
[2017-05-03] MEDS: carBAMazepine 200 MG TABLET PO SCH ×2 (09:48→22:08)
[2017-05-03] MEDS: BUDESONIDE/FORMETEROL FUMARATE 160/4.5 mcg INHALER IH SCH ×2 (09:49→22:05)
[2017-05-03] MEDS: TIOTROPIUM BROMIDE 18 MCG CAPSULES IH SCH (09:49)
[2017-05-03] MEDS: PRAMIPEXOLE DIHYDROCHLORIDE 0.5 MG TABLET PO SCH ×2 (09:50→22:08)
[2017-05-03] MEDS: TOPIRAMATE 100 MG TABLET PO SCH ×2 (09:51→22:08)
[2017-05-03] MEDS: INCRUSE ELLIPTA IH SCH (09:55)
[2017-05-03] MEDS: LINZESS 145 MCG PO SCH (10:00)
--- NOTE | 2017-05-03 10:53 | PN ---
Progress Note (short form) - Note Progress Note: Feels better Less Cough and SOB Blood sugar still 200s No hypos Vital Signs Period Temp Pulse Resp BP Sys/Oconnell Pulse Ox Last 24 Hr 97.8 F-99.2 F 64-94 20-20 121-140/55-67 98 PE: AOx3 Neck: Supple, No JVD HEENT: PERRL, EOMI Lungs: CTA, diffusely diminished BS CVS: S1S2 Abd: Benign Ext: No edema Neuro: No focal deficit CMP Sodium 138 mmol/L (136-145) 05/03/17 08:20 Potassium 4.2 mmol/L (3.5-5.1) 05/03/17 08:20 Chloride 102 mmol/L (98-107) 05/03/17 08:20 Carbon Dioxide 26 mmol/L (21-32) 05/03/17 08:20 Anion Gap 10 (8-16) 05/03/17 08:20 BUN 23 mg/dL (7-18) H 05/03/17 08:20 Creatinine 1.0 mg/dL (0.55-1.02) 05/03/17 08:20 Creat Clearance w eGFR 56.37 (>60) 04/25/17 13:45 POC Glucometer 283 UNITS (80-120) 05/03/17 05:50 Random Glucose 162 mg/dL (74-106) H 05/03/17 08:20 Calcium 9.5 mg/dL (8.5-10.1) 05/03/17 08:20 Phosphorus 2.6 mg/dL (2.5-4.9) 04/25/17 13:45 Magnesium 2.2 mg/dL (1.8-2.4) 04/25/17 13:45 Total Bilirubin 0.3 mg/dL (0.2-1.0) D 04/25/17 13:45 AST 17 U/L (15-37) 04/25/17 13:45 ALT 31 U/L (12-78) 04/25/17 13:45 Alkaline Phosphatase 122 U/L (45-117) H 04/25/17 13:45 Creatine Kinase 82 IU/L (26-192) 04/26/17 13:20 Troponin I < 0.02 ng/ml (0.00-0.05) 04/26/17 13:20 B-Natriuretic Peptide 66.59 pg/ml (5-125) 04/25/17 13:45 Total Protein 7.3 g/dl (6.4-8.2) 04/25/17 13:45 Albumin 3.5 g/dl (3.4-5.0) 04/25/17 13:45 TSH 0.90 uIU/ml (0.358-3.74) 04/25/17 13:45 Current Medications Generic Name Dose Route Start Last Admin Trade Name Freq PRN Reason Stop Dose Admin Albuterol Sulfate 1 amp 05/02/17 16:00 05/03/17 08:00 Ventolin 0.5% - NEB 1 amp Q4H DONTA Administration Atorvastatin Calcium 10 mg 04/25/17 22:00 05/02/17 21:38 Lipitor - PO 10 mg HS DONTA Administration Budesonide/Formoterol Fumarate 2 puff 04/25/17 22:00 05/03/17 09:49 Symbicort 160/4.5mcg - IH 2 puff BID DONTA Administration Carbamazepine 300 mg 04/25/17 22:00 05/03/17 09:48 Tegretol - PO 300 mg BID DONTA Administration Docusate Sodium 100 mg 04/28/17 14:00 05/03/17 06:30 Colace - PO 100 mg TID DONTA Administration Furosemide 40 mg 04/26/17 10:00 05/03/17 09:46 Lasix - PO 40 mg DAILY DONTA Administration Guaifenesin/Codeine Phosphate 5 ml 04/29/17 10:22 05/02/17 10:39 Robitussin Ac - PO 5 ml Q6H PRN Administration COUGH Hydroxychloroquine Sulfate 200 mg 04/25/17 22:00 05/03/17 09:47 Plaquenil - PO 200 mg BID DONTA Administration Insulin Aspart 0 units 04/30/17 22:00 05/02/17 21:55 Novolog SQ Not Given HS DONTA Protocol Insulin Aspart 1 vial 05/02/17 11:30 05/03/17 06:32 Novolog Vial Sliding Scale - SQ 14 unit TIDAC DONTA Administration Protocol Insulin Detemir 25 units 05/03/17 07:00 05/03/17 06:30 Levemir Vial SQ 25 units AM DONTA Administration Levothyroxine Sodium 50 mcg 04/26/17 07:00 05/03/17 06:36 Synthroid - PO 50 mcg DAILY@0700 DONTA Administration Losartan Potassium 50 mg 04/26/17 10:00 05/03/17 09:46 Cozaar - PO 50 mg DAILY DONTA Administration Methotrexate 12.5 mg 04/27/17 07:30 04/27/17 06:44 Mexate - PO 12.5 mg We@0730 DONTA Administration Methylprednisolone Sodium Succinate 40 mg 05/01/17 22:00 05/03/17 09:47 Solu-Medrol - IVPUSH 40 mg BID DONTA Administration Montelukast Sodium 10 mg 04/25/17 22:00 05/02/17 21:38 Singulair - PO 10 mg HS DONTA Administration Nf(Linzess 145mcg 1 each 04/30/17 15:00 05/03/17 10:00 Capsule) PO 1 each DAILY [facility] Administration Nf(Incruse Ellipta 1 each 04/30/17 15:00 05/03/17 09:55 Inhaler)62.5mcg/Inh IH 1 each DAILY [facility] Administration Pantoprazole Sodium 40 mg 04/25/17 19:00 05/03/17 09:47 Protonix - PO 40 mg DAILY DONTA Administration Pramipexole Dihydrochloride 0.5 mg 04/25/17 22:00 05/03/17 09:50 Mirapex - PO 0.5 mg BID DONTA Administration Sertraline HCl 100 mg 04/25/17 22:00 05/02/17 21:44 Zoloft - PO 100 mg HS DONTA Administration Tiotropium [place] 1 puff 04/27/17 13:00 05/03/17 09:49 Spiriva - IH 1 puff DAILY [facility] Administration Topiramate 100 mg 04/25/17 22:00 05/03/17 09:51 Topamax - PO 100 mg BID DONTA Administration AP: T2DM with hyperlgycemia COPD exacerbation Sleep Apnes Obesity Hypothyroidism BGM QACHS Levemir 28 units daily in morning INcrease novolog Coverage, Changed to Prednisone 40mg BID O2 Bronchodilators Levothyroxine Methotrexate Hydroxycholorquin Problem List - Problems (1) COPD exacerbation Code(s): J44.1 - CHRONIC OBSTRUCTIVE PULMONARY DISEASE W (ACUTE) EXACERBATION (2) Hyperglycemia Code(s): R73.9 - HYPERGLYCEMIA, UNSPECIFIED (3) Obstructive sleep apnea (adult) (pediatric) Code(s): G47.33 - OBSTRUCTIVE SLEEP APNEA (ADULT) (PEDIATRIC)
[2017-05-03] MEDS ORDERED: INSULIN (NOVOLOG) ASPART 100 UNITS/ML 10ML VIAL ONE (11:58)
--- NOTE | 2017-05-03 14:40 | PN ---
Physical Exam: SUBJECTIVE: Patient seen and examined No acute events overnight. Patient feels mildly better than yesterday. OBJECTIVE: Vital Signs Period Temp Pulse Resp BP Sys/Oconnell Pulse Ox Last 24 Hr 97.8 F-99.3 F 64-92 20-22 110-140/55-67 98-98 GENERAL: Awake, alert, and fully oriented, in no acute distress. HEAD: Normal with no signs of trauma. EYES: Pupils equal, round and reactive to light, Extraocular movements intact, sclera anicteric, conjunctiva clear. No lid lag. EARS, NOSE, THROAT: Moist mucous membranes, mild erythema in posterior oropharynx. NECK: Supple without lymphadenopathy, JVD, or masses. LUNGS: Decreased breath sounds throughout, poor air entry--improving. No crackles or rhonchi appreciated HEART: +S1S2, RRR, distant heart sounds ABDOMEN: +Obese, Soft, nontender, not distended, normoactive bowel sounds, no guarding, no rebound, no masses. MUSCULOSKELETAL: No CVA tenderness. UPPER EXTREMITIES: 2+ pulses, warm, well-perfused. No cyanosis. No clubbing. No peripheral edema. LOWER EXTREMITIES: 2+ pulses, warm, well-perfused. No calf tenderness. trace peripheral edema. NEUROLOGICAL: Cranial nerves II-XII intact. Strength 5/5 in bilateraly upper and lower extremities, sensation intact b/l, 1-2+ reflexes b/l, Normal speech, finger to nose intact, gait not observed. PSYCHIATRIC: Cooperative. Good eye contact. Appropriate mood and affect. SKIN: Warm, dry Laboratory Results - last 24 hr 05/02/17 05/02/17 05/03/17 16:30 21:49 05:50 WBC RBC Hgb Hct MCV MCH MCHC RDW Plt Count MPV Neutrophils % Lymphocytes % Monocytes % Eosinophils % Basophils % Sodium Potassium Chloride Carbon Dioxide Anion Gap BUN Creatinine POC Glucometer 298 199 283 Random Glucose Calcium 05/03/17 05/03/17 05/03/17 08:20 08:20 11:28 WBC 10.6 H RBC 3.82 Hgb 11.9 Hct 35.8 MCV 93.7 MCH 31.1 MCHC 33.2 RDW 16.5 H Plt Count 346 D MPV 7.8 Neutrophils % 65.7 Lymphocytes % 28.1 D Monocytes % 4.8 Eosinophils % 0.5 D Basophils % 0.9 Sodium 138 Potassium 4.2 Chloride 102 Carbon Dioxide 26 Anion Gap 10 BUN 23 H Creatinine 1.0 POC Glucometer 175 Random Glucose 162 H Calcium 9.5 Active Medications Generic Name Dose Route Start Last Admin Trade Name Freq PRN Reason Stop Dose Admin Albuterol Sulfate 1 amp 05/02/17 16:00 05/03/17 11:55 Ventolin 0.5% - NEB 1 amp Q4H DONTA Administration Atorvastatin Calcium 10 mg 04/25/17 22:00 05/02/17 21:38 Lipitor - PO 10 mg HS DONTA Administration Budesonide/Formoterol Fumarate 2 puff 04/25/17 22:00 05/03/17 09:49 Symbicort 160/4.5mcg - IH 2 puff BID DONTA Administration Carbamazepine 300 mg 04/25/17 22:00 05/03/17 09:48 Tegretol - PO 300 mg BID DONTA Administration Docusate Sodium 100 mg 04/28/17 14:00 05/03/17 14:12 Colace - PO 100 mg TID DONTA Administration Furosemide 40 mg 04/26/17 10:00 05/03/17 09:46 Lasix - PO 40 mg DAILY DONTA Administration Guaifenesin/Codeine Phosphate 5 ml 04/29/17 10:22 05/02/17 10:39 Robitussin Ac - PO 5 ml Q6H PRN Administration COUGH Hydroxychloroquine Sulfate 200 mg 04/25/17 22:00 05/03/17 09:47 Plaquenil - PO 200 mg BID DONTA Administration Insulin Aspart 0 units 04/30/17 22:00 05/02/17 21:55 Novolog SQ Not Given HS [facility] Protocol Insulin Aspart 1 vial 05/03/17 10:56 05/03/17 11:40 Novolog Vial Sliding Scale - SQ 10 units TIDAC [facility] Administration Protocol Insulin Detemir 28 units 05/04/17 07:00 Levemir Vial SQ AM [facility] Levothyroxine Sodium 50 mcg 04/26/17 07:00 05/03/17 06:36 Synthroid - PO 50 mcg DAILY@0700 DONTA Administration Losartan Potassium 50 mg 04/26/17 10:00 05/03/17 09:46 Cozaar - PO 50 mg DAILY DONTA Administration Methotrexate 12.5 mg 04/27/17 07:30 04/27/17 06:44 Mexate - PO 12.5 mg We@0730 DONTA Administration Montelukast Sodium 10 mg 04/25/17 22:00 05/02/17 21:38 Singulair - PO 10 mg HS DONTA Administration Nf(Linzess 145mcg 1 each 04/30/17 15:00 05/03/17 10:00 Capsule) PO 1 each DAILY DONTA Administration Nf(Incruse Ellipta 1 each 04/30/17 15:00 05/03/17 09:55 Inhaler)62.5mcg/Inh IH 1 each DAILY DONTA Administration Pantoprazole Sodium 40 mg 04/25/17 19:00 05/03/17 09:47 Protonix - PO 40 mg DAILY DONTA Administration Pramipexole Dihydrochloride 0.5 mg 04/25/17 22:00 05/03/17 09:50 Mirapex - PO 0.5 mg BID ODNTA Administration Prednisone 40 mg 05/03/17 22:00 Deltasone - PO BID DONTA Sertraline HCl 100 mg 04/25/17 22:00 05/02/17 21:44 Zoloft - PO 100 mg HS DONTA Administration Tiotropium [place] 1 puff 04/27/17 13:00 05/03/17 09:49 Spiriva - IH 1 puff DAILY DONTA Administration Topiramate 100 mg 04/25/17 22:00 05/03/17 09:51 Topamax - PO 100 mg BID DONTA Administration ASSESSMENT/PLAN: 62 year old female with past medical history of COPD on three liters of home oxygen, CAD status post cath with no stent placed, hypertension, hyperlipidemia , lupus, DANY on CPAP, type II diabetes, hypothyroidism, seizure disorder, and morbid obesity presented with shortness of breath, dry cough, subjective fevers , and lower extremity edema. #Acute on chronic copd exacerbation, mild -Received vanco/levaquin and 125 mg medrol in ED -albuterol standing q4h and prn -Decrease solumederol to prednisone 40 mg bid. Can be d/c on prednisone taper tomorrow per Pulmonary -continue symbicort/singular 10 po hs -Spiriva restarted by pulmonary -Robitussin AC 5 ml q6h prn for cough -Pulmonary consult, Dr. Hyde -O2 as needed -Influenza swab negative -RSV negative -Legionella/strep pneumonia antigen pending #DANY -Continue home CPAP at night #CAD -Continue Asa 81 #HTN -Continue Lasix 40 mg daily and Losartan 50 mg daily #Diastolic CHF -Continue Lasix 40 mg daily #HLD -Continue Lipitor 10 mg po hs #Seizure d/o -Continue seizure medications, Carbamazapine 300 mg po bid, Topomax 100 mg po bid #SLE -continue Plaquenil 200 mg po bid, Pramipaxole 0.5 mg po bid -received 12.5 mg Methotrexate on 04/27. Patient receives 12.5 mg MTX on every tue morning. #DM -ISS achs -Levemir 22 units sq am -BGM achs #hypothyroidism -continue Synthroid 50 mcg po daily #FEN/GI -No IVF -Monitor BMP -Diabetic/sodium diet #PPx -Protonix 40 mg po daily -Heparin 5000 u sq tid #Dispo: Can be d/c in AM Visit type - Emergency Visit Emergency Visit: Yes ED Registration Date: 04/25/17 Care time: The patient presented to the Emergency Department on the above date and was hospitalized for further evaluation of their emergent condition. - New Patient This patient is new to me today: No - Critical Care Critical Care patient: No
--- NOTE | 2017-05-03 18:34 | PN ---
Teaching Attending Note Name of Resident: Milton Zimmerman ATTENDING PHYSICIAN STATEMENT I saw and evaluated the patient. I reviewed the resident's note and discussed the case with the resident. I agree with the resident's findings and plan as documented. SUBJECTIVE: Patient feels less SOB. OBJECTIVE: Vital Signs Period Temp Pulse Resp BP Sys/Oconnell Pulse Ox Last 24 Hr 97.8 F-99.3 F 64-92 20-22 110-140/55-67 98-98 HEART: S1S2, RRR LUNGS: Clear with decreased BS ABDOMEN: Obese, soft, non-tender, non-distended, normal BS EXTREMITIES: No edema Laboratory Results - last 24 hr 05/02/17 05/03/17 05/03/17 21:49 05:50 08:20 WBC 10.6 H RBC 3.82 Hgb 11.9 Hct 35.8 MCV 93.7 MCH 31.1 MCHC 33.2 RDW 16.5 H Plt Count 346 D MPV 7.8 Neutrophils % 65.7 Lymphocytes % 28.1 D Monocytes % 4.8 Eosinophils % 0.5 D Basophils % 0.9 Sodium Potassium Chloride Carbon Dioxide Anion Gap BUN Creatinine POC Glucometer 199 283 Random Glucose Calcium 05/03/17 05/03/17 08:20 11:28 WBC RBC Hgb Hct MCV MCH MCHC RDW Plt Count MPV Neutrophils % Lymphocytes % Monocytes % Eosinophils % Basophils % Sodium 138 Potassium 4.2 Chloride 102 Carbon Dioxide 26 Anion Gap 10 BUN 23 H Creatinine 1.0 POC Glucometer 175 Random Glucose 162 H Calcium 9.5 Current Medications Generic Name Dose Route Start Last Admin Trade Name Freq PRN Reason Stop Dose Admin Albuterol Sulfate 1 amp 05/02/17 16:00 05/03/17 16:15 Ventolin 0.5% - NEB 1 amp Q4H DONTA Administration Atorvastatin Calcium 10 mg 04/25/17 22:00 05/02/17 21:38 Lipitor - PO 10 mg HS DONTA Administration Budesonide/Formoterol Fumarate 2 puff 04/25/17 22:00 05/03/17 09:49 Symbicort 160/4.5mcg - IH 2 puff BID DONTA Administration Carbamazepine 300 mg 04/25/17 22:00 05/03/17 09:48 Tegretol - PO 300 mg BID DOTNA Administration Docusate Sodium 100 mg 04/28/17 14:00 05/03/17 14:12 Colace - PO 100 mg TID DONTA Administration Furosemide 40 mg 04/26/17 10:00 05/03/17 09:46 Lasix - PO 40 mg DAILY DONTA Administration Guaifenesin/Codeine Phosphate 5 ml 04/29/17 10:22 05/02/17 10:39 Robitussin Ac - PO 5 ml Q6H PRN Administration COUGH Hydroxychloroquine Sulfate 200 mg 04/25/17 22:00 05/03/17 09:47 Plaquenil - PO 200 mg BID DONTA Administration Insulin Aspart 0 units 04/30/17 22:00 05/02/17 21:55 Novolog SQ Not Given HS DONTA Protocol Insulin Aspart 1 vial 05/03/17 10:56 05/03/17 17:33 Novolog Vial Sliding Scale - SQ 18 units TIDAC DONTA Administration Protocol Insulin Detemir 28 units 05/04/17 07:00 Levemir Vial SQ AM DONTA Levothyroxine Sodium 50 mcg 04/26/17 07:00 05/03/17 06:36 Synthroid - PO 50 mcg DAILY@0700 DONTA Administration Losartan Potassium 50 mg 04/26/17 10:00 05/03/17 09:46 Cozaar - PO 50 mg DAILY ODNTA Administration Methotrexate 12.5 mg 04/27/17 07:30 04/27/17 06:44 Mexate - PO 12.5 mg We@0730 DONTA Administration Montelukast Sodium 10 mg 04/25/17 22:00 05/02/17 21:38 Singulair - PO 10 mg HS DONTA Administration Nf(Linzess 145mcg 1 each 04/30/17 15:00 05/03/17 10:00 Capsule) PO 1 each DAILY DONTA Administration Nf(Incruse Ellipta 1 each 04/30/17 15:00 05/03/17 09:55 Inhaler)62.5mcg/Inh IH 1 each DAILY DONTA Administration Pantoprazole Sodium 40 mg 04/25/17 19:00 05/03/17 09:47 Protonix - PO 40 mg DAILY DONTA Administration Pramipexole Dihydrochloride 0.5 mg 04/25/17 22:00 05/03/17 09:50 Mirapex - PO 0.5 mg BID DONTA Administration Prednisone 40 mg 05/03/17 22:00 Deltasone - PO BID DONTA Sertraline HCl 100 mg 04/25/17 22:00 05/02/17 21:44 Zoloft - PO 100 mg HS DONTA Administration Tiotropium [place] 1 puff 04/27/17 13:00 05/03/17 09:49 Spiriva - IH 1 puff DAILY DONTA Administration Topiramate 100 mg 04/25/17 22:00 05/03/17 09:51 Topamax - PO 100 mg BID DONTA Administration ASSESSMENT AND PLAN: This is a 62 year old woman with a history of COPD, chronic hypoxic respiratory failure, CAD, HTN, chronic diastolic HF, hyperlipidemia, lupus, DANY, type 2 DM, hypothyroidism, seizure disorder, morbid obesity who presented to the ED with shortness of breath. 1. Acute exacerbation of COPD - Change SoluMedrol to Prednisone - Continue Symbicort, Spiriva, Singulair, DuoNeb, oxygen 2. CAD - Continue aspirin 3. HTN - Continue Cozaar, Lasix 4. Chronic diastolic heart failure - Stable - Continue Lasix 5. Chronic hypoxic respiratory failure secondary to COPD, DANY, CHF 6. Hyperlipidemia - Continue Lipitor 7. Seizure disorder - Continue Tegretol, Topamax 8. Lupus - Continue Plaquenil, Methotrexate 9. Type 2 DM - Continue Levemir, Novolog sliding scale 10. Hypothyroidism - Continue Synthroid 11. Morbid obesity with BMI 46.3 12. DANY - Continue CPAP at night
[2017-05-03] MEDS: Insulin (LOG) Aspart 100 UNITS/ML VIAL SQ SCH (22:05)
[2017-05-03] MEDS: predniSONE 20 MG TABLET (UD) PO SCH (22:06)
[2017-05-03] MEDS: SERTRALINE HCL 50 MG TABLET (FP) PO SCH (22:06)
[2017-05-03] MEDS: ATORVASTATIN CA 10 MG TABLET (FP) PO SCH (22:06)
[2017-05-03] MEDS: MONTELUKAST NA 10 MG TABLET PO SCH (22:11)
[2017-05-04] MEDS: ALBUTEROL SO4 0.5 % INH SOLN 2.5 MG/0.5 ML VIAL.NEB. NEB SCH ×4 (00:30→11:05)
[2017-05-04] MEDS: LEVOTHYROXINE NA 50 MCG TABLET (FP) PO SCH (06:03)
[2017-05-04] MEDS: DOCUSATE SODIUM 100 MG CAPSULE (FP) PO SCH (06:03)
[2017-05-04] MEDS: INSULIN SLIDING SCALE (NOVOLOG) 1 VIAL SQ SCH ×2 (06:07→11:32)
[2017-05-04] MEDS: METHOTREXATE 2.5 MG TABLET PO SCH (06:51)
[2017-05-04] MEDS ORDERED: INSULIN DETEMIR 100 UNITS/ML MDV SQ SCH (07:00)
--- NOTE | 2017-05-04 09:10 | PN ---
Progress Note (short form) - Note Progress Note: Feels better Blood sugar still 200s No hypos Vital Signs Period Temp Pulse Resp BP Sys/Oconnell Pulse Ox Last 24 Hr 98.0 F-99.3 F 74-104 15-22 110-163/58-82 98-98 PE: AOx3 Neck: Supple, No JVD HEENT: PERRL, EOMI Lungs: CTA, diffusely diminished BS CVS: S1S2 Abd: Benign Ext: No edema Neuro: No focal deficit CMP Sodium 138 mmol/L (136-145) 05/03/17 08:20 Potassium 4.2 mmol/L (3.5-5.1) 05/03/17 08:20 Chloride 102 mmol/L (98-107) 05/03/17 08:20 Carbon Dioxide 26 mmol/L (21-32) 05/03/17 08:20 Anion Gap 10 (8-16) 05/03/17 08:20 BUN 23 mg/dL (7-18) H 05/03/17 08:20 Creatinine 1.0 mg/dL (0.55-1.02) 05/03/17 08:20 Creat Clearance w eGFR 56.37 (>60) 04/25/17 13:45 POC Glucometer 335 UNITS (80-120) 05/04/17 05:32 Random Glucose 162 mg/dL (74-106) H 05/03/17 08:20 Calcium 9.5 mg/dL (8.5-10.1) 05/03/17 08:20 Phosphorus 2.6 mg/dL (2.5-4.9) 04/25/17 13:45 Magnesium 2.2 mg/dL (1.8-2.4) 04/25/17 13:45 Total Bilirubin 0.3 mg/dL (0.2-1.0) D 04/25/17 13:45 AST 17 U/L (15-37) 04/25/17 13:45 ALT 31 U/L (12-78) 04/25/17 13:45 Alkaline Phosphatase 122 U/L (45-117) H 04/25/17 13:45 Creatine Kinase 82 IU/L (26-192) 04/26/17 13:20 Troponin I < 0.02 ng/ml (0.00-0.05) 04/26/17 13:20 B-Natriuretic Peptide 66.59 pg/ml (5-125) 04/25/17 13:45 Total Protein 7.3 g/dl (6.4-8.2) 04/25/17 13:45 Albumin 3.5 g/dl (3.4-5.0) 04/25/17 13:45 TSH 0.90 uIU/ml (0.358-3.74) 04/25/17 13:45 Current Medications Generic Name Dose Route Start Last Admin Trade Name Attila PRN Reason Stop Dose Admin Albuterol Sulfate 1 amp 05/02/17 16:00 05/04/17 07:00 Ventolin 0.5% - NEB 1 amp Q4H DONTA Administration Atorvastatin Calcium 10 mg 04/25/17 22:00 05/03/17 22:06 Lipitor - PO 10 mg HS DONTA Administration Budesonide/Formoterol Fumarate 2 puff 04/25/17 22:00 05/03/17 22:05 Symbicort 160/4.5mcg - IH 2 puff BID DONTA Administration Carbamazepine 300 mg 04/25/17 22:00 05/03/17 22:08 Tegretol - PO 300 mg BID DONTA Administration Docusate Sodium 100 mg 04/28/17 14:00 05/04/17 06:03 Colace - PO 100 mg TID DONTA Administration Furosemide 40 mg 04/26/17 10:00 05/03/17 09:46 Lasix - PO 40 mg DAILY DONTA Administration Hydroxychloroquine Sulfate 200 mg 04/25/17 22:00 05/03/17 22:07 Plaquenil - PO 200 mg BID DONTA Administration Insulin Aspart 0 units 04/30/17 22:00 05/03/17 22:05 Novolog SQ 4 units HS DONTA Administration Protocol Insulin Aspart 1 vial 05/03/17 10:56 05/04/17 06:07 Novolog Vial Sliding Scale - SQ 20 units TIDAC DONTA Administration Protocol Insulin Detemir 28 units 05/04/17 07:00 05/04/17 06:08 Levemir Vial SQ 28 units AM DONTA Administration Levothyroxine Sodium 50 mcg 04/26/17 07:00 05/04/17 06:03 Synthroid - PO 50 mcg DAILY@0700 DONTA Administration Losartan Potassium 50 mg 04/26/17 10:00 05/03/17 09:46 Cozaar - PO 50 mg DAILY DONTA Administration Methotrexate 12.5 mg 04/27/17 07:30 05/04/17 06:51 Mexate - PO 12.5 mg We@0730 DONTA Administration Montelukast Sodium 10 mg 04/25/17 22:00 05/03/17 22:11 Singulair - PO 10 mg HS DONTA Administration Nf(Linzess 145mcg 1 each 04/30/17 15:00 05/03/17 10:00 Capsule) PO 1 each DAILY DONTA Administration Nf(Incruse Ellipta 1 each 04/30/17 15:00 05/03/17 09:55 Inhaler)62.5mcg/Inh IH 1 each DAILY DONTA Administration Pantoprazole Sodium 40 mg 04/25/17 19:00 05/03/17 09:47 Protonix - PO 40 mg DAILY DONTA Administration Pramipexole Dihydrochloride 0.5 mg 04/25/17 22:00 05/03/17 22:08 Mirapex - PO 0.5 mg BID DONTA Administration Prednisone 40 mg 05/03/17 22:00 05/03/17 22:06 Deltasone - PO 40 mg BID DONTA Administration Sertraline HCl 100 mg 04/25/17 22:00 05/03/17 22:06 Zoloft - PO 100 mg HS DONTA Administration Tiotropium [place] 1 puff 04/27/17 13:00 05/03/17 09:49 Spiriva - IH 1 puff DAILY DONTA Administration Topiramate 100 mg 04/25/17 22:00 05/03/17 22:08 Topamax - PO 100 mg BID DONTA Administration AP: T2DM with hyperlgycemia COPD exacerbation Sleep Apnes Obesity Hypothyroidism BGM QACHS Levemir 28 units daily in morning Continue novolog Coverage, OnPrednisone 40mg BID O2 Nasal canula Discussed need to change Insulin dose with change in dose of Prednisone. Pt to call me once discharged with BGM record to adjust Insulin dose as necessary. Bronchodilators Levothyroxine Methotrexate Hydroxycholorquin Problem List - Problems (1) COPD exacerbation Code(s): J44.1 - CHRONIC OBSTRUCTIVE PULMONARY DISEASE W (ACUTE) EXACERBATION (2) Hyperglycemia Code(s): R73.9 - HYPERGLYCEMIA, UNSPECIFIED (3) Obstructive sleep apnea (adult) (pediatric) Code(s): G47.33 - OBSTRUCTIVE SLEEP APNEA (ADULT) (PEDIATRIC)
[2017-05-04] MEDS ORDERED: PT OWN MED DRAWER 7, Y5N ONE ×2 (10:13→12:35)
[2017-05-04] MEDS: FUROSEMIDE 40 MG TABLET (FP) PO SCH (10:17)
[2017-05-04] MEDS: predniSONE 20 MG TABLET (UD) PO SCH (10:17)
[2017-05-04] MEDS: LOSARTAN POTASSIUM 50 MG TABLET (FP) PO SCH (10:17)
[2017-05-04] MEDS: PANTOPRAZOLE 40 MG TABLET (FP) PO SCH (10:17)
[2017-05-04] MEDS: TIOTROPIUM BROMIDE 18 MCG CAPSULES IH SCH (10:18)
[2017-05-04] MEDS: BUDESONIDE/FORMETEROL FUMARATE 160/4.5 mcg INHALER IH SCH (10:18)
[2017-05-04] MEDS: LINZESS 145 MCG PO SCH (10:19)
[2017-05-04] MEDS: PRAMIPEXOLE DIHYDROCHLORIDE 0.5 MG TABLET PO SCH (10:20)
[2017-05-04] MEDS: carBAMazepine 200 MG TABLET PO SCH (10:20)
[2017-05-04] MEDS: HYDROXYCHLOROQUINE SO4 200 MG TABLET (FP) PO SCH (10:20)
[2017-05-04] MEDS: TOPIRAMATE 100 MG TABLET PO SCH (10:20)
[2017-05-04] MEDS: INCRUSE ELLIPTA IH SCH (10:21)
[2017-05-04 10:59] VITALS: BP 146/64; PULSE 83; TEMP 98.8
--- NOTE | 2017-05-04 13:10 | DS ---
Physical Exam: Selected Entries 05/04/17 05/04/17 09:00 10:00 Temperature 98.8 F Pulse Rate 83 Respiratory 20 Rate Blood Pressure 146/64 O2 Sat by Pulse 100 Oximetry (%) Oxygen Flow 3 Rate Laboratory Tests 04/25/17 04/25/17 04/25/17 13:00 13:45 13:45 WBC Hgb Hct Plt Count ABG pH 7.40 ABG pCO2 at Pt Temp 40.5 ABG HCO3 24.6 Sodium Potassium Chloride Carbon Dioxide Anion Gap BUN Creatinine POC Glucometer Random Glucose Calcium Troponin I B-Natriuretic Peptide 66.59 TSH 0.90 04/26/17 04/29/17 04/29/17 13:20 05:40 21:34 WBC Hgb Hct Plt Count ABG pH ABG pCO2 at Pt Temp ABG HCO3 Sodium Potassium Chloride Carbon Dioxide Anion Gap BUN Creatinine POC Glucometer 280 240 Random Glucose Calcium Troponin I < 0.02 B-Natriuretic Peptide TSH 05/01/17 05/01/17 05/03/17 06:02 21:39 05:50 WBC Hgb Hct Plt Count ABG pH ABG pCO2 at Pt Temp ABG HCO3 Sodium Potassium Chloride Carbon Dioxide Anion Gap BUN Creatinine POC Glucometer 281 195 283 Random Glucose Calcium Troponin I B-Natriuretic Peptide TSH 05/03/17 05/03/17 05/04/17 08:20 08:20 11:20 WBC 10.6 H Hgb 11.9 Hct 35.8 Plt Count 346 D ABG pH ABG pCO2 at Pt Temp ABG HCO3 Sodium 138 Potassium 4.2 Chloride 102 Carbon Dioxide 26 Anion Gap 10 BUN 23 H Creatinine 1.0 POC Glucometer 149 Random Glucose 162 H Calcium 9.5 Troponin I B-Natriuretic Peptide TSH Microbiology 04/27/17 22:00 Urine For Antigen Detection Legionella Antigen - Final 04/27/17 22:00 Urine For Antigen Detection Streptococcus pneumoniae Antigen (M - Final 04/27/17 21:19 Nasopharyngeal Aspirate Respiratory Syncytial Virus Ag - Final 04/26/17 01:15 Nasopharyngeal Swab Influenza Types A,B Antigen (SERVANDO) - Final 04/26/17 01:15 Nasopharyngeal Swab - Final EKG 04/25- NSR, LVH EKG 04/26- NSR, LVH Imaging CXR 04/25- No acute pathology CXR 04/26- No acute pathology CXR 04/30- No acute pathology HOSPITAL COURSE: Date of Admission:04/25/17 Date of Discharge: 05/04/17 62 year old female with past medical history of COPD on three liters of home oxygen, CAD status post cath with no stent placed, hypertension, hyperlipidemia , lupus, DANY on CPAP, type II diabetes, hypothyroidism, seizure disorder, and morbid obesity presented with shortness of breath, dry cough, subjective fevers , and lower extremity edema admitted for acute on chronic COPD exacerbation. Patient was treated with an IV solumederol taper. Patient began feeling better and was d/c on prednisone taper 40 mg x 3 days, 30 mg x 3 days, 20 mg x 3 days, and then will continue 10 mg. In addition, patient's sugars were uncontrolled while in the hospital. Patient's levemir was increased to 28 units in the morning. The remainder of her medications stayed the same. She will follow up with her PCP, Drafter Seismograph, and Donor Specialist. Minutes to complete discharge: 45 Discharge Summary Reason For Visit: COPD,HYPERGLYCEMIA,PNA Current Active Problems COPD exacerbation (Acute) CAD (coronary artery disease) (Chronic) CHF (congestive heart failure) (Chronic) Hypertension (Chronic) Hypothyroidism (Chronic) SLE (systemic lupus erythematosus) (Chronic) Seizure disorder (Chronic) Sleep apnea, obstructive (Chronic) Type 2 diabetes mellitus (Chronic) Condition: Stable - Instructions Diet, Activity, Other Instructions: You were in the hospital for an exacerbation of your chronic obstructive pulmonary disease. You were treated with IV steroids. Please follow up with your primary care provider within 1 week. Please follow up with your lung doctor within 1 week (Dr. Hyde). Please follow up with the cp bleacher operator within 1 week regarding your blood sugars. Continue your home medications. The following changes have been made to your home medications: -We have increased your levemir to 28 units in the morning. Please follow up closely with your primary care provider and cp bleacher operator after your hospital stay to monitor your sugars. Please take the following steroid taper: Prednisone 10 mg -40 mg daily (4 tablets) x 3 days -30 mg daily (3 tablets) x 3 days -20 mg daily (2 tablets) x 3 days -Continue 10 mg daily after taper *If you have chest pain, shortness of breath, or any new/worsening symptoms please come back to the hospital immediately. Referrals: Goran Hernandez MD [Primary Care Provider] - Morgan Hyde MD [Staff Physician] - Demetrio Garrett MD [Staff Physician] - Disposition: HOME - Home Medications Comprehensive Discharge Medication List: Ambulatory Orders Albuterol Sulfate [Proair Hfa] 1 puff IH Q4H PRN 03/31/17 Atorvastatin Ca [Lipitor] 10 mg PO HS 03/31/17 Biotin 5,000 mcg PO DAILY 03/31/17 Budesonide/Formeterol Fumarate [SYMBICORT 160/4.5mcg -] 2 inh PO BID 03/31/17 Carbamazepine [Carbamazepine ER] 300 mg PO BID 03/31/17 Exenatide [[place]] 10 mcg SQ BID 03/31/17 Furosemide [Lasix -] 40 mg PO DAILY 03/31/17 Glipizide [Glipizide Xl] 10 mg PO BID 03/31/17 Hydroxychloroquine So4 [Plaquenil -] 200 mg PO BID 03/31/17 Levothyroxine [Synthroid -] 50 mcg PO ASDIR 03/31/17 Losartan Potassium 50 mg PO DAILY 03/31/17 Metformin HCl 500 mg PO BID 03/31/17 Montelukast Na [Singulair -] 10 mg PO HS 03/31/17 [place]-3 Fatty Acids [[place]-3] 1,000 mg PO DAILY 03/31/17 Pramipexole Dihydrochloride [Mirapex -] 0.5 mg PO BID 03/31/17 Sertraline HCl 100 mg PO HS 03/31/17 Tiotropium [place] [Spiriva] 1 inh PO DAILY 03/31/17 Topiramate 100 mg PO BID 03/31/17 Insulin Lispro [Humalog] 0 unit SQ ASDIR 04/25/17 Omeprazole 40 mg PO DAILY 04/26/17 Insulin (Levemir) [Levemir Vial] 28 units SQ AM #10 ml 05/04/17 Methotrexate [Mexate -] 12.5 mg PO We@0730 tablet 05/04/17 Prednisone See Taper PO DAILY #27 tablet 05/04/17 This patient is new to me today: No Emergency Visit: Yes ED Registration Date: 04/25/17 Care time: The patient presented to the Emergency Department on the above date and was hospitalized for further evaluation of their emergent condition. Critical Care patient: No - Discharge Referral Referred to [facility] Yes Physician Referral: Goran Heard MD ([facility])
--- NOTE | 2017-05-04 18:46 | PN ---
Teaching Attending Note Name of Resident: Milton Zimmerman ATTENDING PHYSICIAN STATEMENT I saw and evaluated the patient. I reviewed the resident's note and discussed the case with the resident. I agree with the resident's findings and plan as documented. SUBJECTIVE: no fever or chills, no SOB . still has minimal cough OBJECTIVE: NAD CV: RRR Lungs: No wheezing , improved air entry Ext: no edema or erythema ASSESSMENT AND PLAN: 62 y/o lady with CAD, D CHF, COPD , on 3 L of o2, DANY on CPAP , SLE , HTN, hypothyroidism, seizure, gastric banding , Morbid obesity who presented with SOB , sore throat , and cough . She was found to have COPD exacerbation 1- Acute COPD exacerbation :Improved - prednisone taper until she reaches 10 mg ( her maintenance dose ) - cont inhalers and Nebs at home 2- CAD, D CHF : cont losartan , ASA. 3- seizure: cont meds 4- h/o Lupus : cont meds 5- Dm : levemir at increased dose and SSI dc home f/u with pulm, endo and PCP
== END 2017-05-04 13:54 | disposition home or self-care (01) | DRG 191 ==
LOC: JER 11:02 → JERBED 15:56 → J5S 18:05 → OBSVTOIN 18:51
PROVIDERS: ADMIT Internal Medicine; ATTEND Internal Medicine
PROC: 5A09557 Assistance with Respiratory Ventilation, Greater than 96 Consecutive Hours, Continuous Positive Airway Pressure (ICD-10-PCS; principal; 2017-04-25)
DX: J44.1 Chronic obstructive pulmonary disease with (acute) exacerbation (principal); Z68.42 Body mass index [BMI] 45.0-49.9, adult; I50.32 Chronic diastolic (congestive) heart failure; J96.11 Chronic respiratory failure with hypoxia; G47.33 Obstructive sleep apnea (adult) (pediatric); I25.10 Atherosclerotic heart disease of native coronary artery without angina pectoris; E78.5 Hyperlipidemia, unspecified; M32.9 Systemic lupus erythematosus, unspecified; G40.909 Epilepsy, unspecified, not intractable, without status epilepticus; E03.9 Hypothyroidism, unspecified; E66.01 Morbid (severe) obesity due to excess calories; I11.0 Hypertensive heart disease with heart failure; Z79.4 Long term (current) use of insulin; E11.65 Type 2 diabetes mellitus with hyperglycemia
CPT/HCPCS: 36415; 36600; 71045-TC-FY; 71046-TC-FY; 80048; 80053; 82375; 82550; 82803; 82962; 83050; 83735; 83880; 84100; 84443; 84484; 85025; 85610; 85730; 86850; 86900; 86901; 87420; 87804; 87899; 93005; 93010; 94010; 94640; 94660; 97116-GP; 97161-GP; 99283-25; G0378; J1644; J8610

== ENCOUNTER 2017-06-21 16:02 | Inpatient (IN) | payer OTHER, MEDICARE ==
--- NOTE | 2017-06-21 16:12 | PDOC ---
Rapid Medical Evaluation Chief Complaint: Cold Symptoms Time Seen by Provider: 06/21/17 16:10 Medical Evaluation: Allergies Allergy/AdvReac Type Severity Reaction Status Date / Time gabapentin [From Neurontin] Allergy PALPITATIONS, Verified 04/25/17 11:15 PASSES OUT Penicillins Allergy TONGUE Verified 04/25/17 11:15 Swelling phenytoin sodium Allergy diarrhea/vo Verified 04/25/17 11:15 [From Dilantin] miting phenytoin sodium extended Allergy Verified 04/25/17 11:15 [From Dilantin] theophylline [Theophylline] Allergy diarrhea,SE Verified 04/25/17 11:15 IZURES 06/21/17 16:10 I have performed a brief in-person evaluation of this patient. The patient presents with a chief complaint of: cough w/ sob and CP. H/o COPD on 3L oxygen, lupus on methotrexate and plaquenil, IDDM, HLD, HTN, CAD, on lasix , chronic, edema, seizures, reflux, s/p lap band PMD is [place] Pulm is [place] Pertinent physical exam findings:Stable w/ clear lungs and lower ext edema I have ordered the following:ekg/cxr/labs The patient will proceed to the ED for further evaluation Discharge Disposition - Diagnosis SOB (shortness of breath) - Referrals - Patient Instructions - Post Discharge Activity
[2017-06-21 16:47] LABS: BASO % 1.4 % (0-2.0); EOS % 0.1 % (0-4.5); HEMATOCRIT 35.3 % (32.4-45.2); HEMOGLOBIN 11.9 GM/dL (10.7-15.3); LYMPH % 25.8 % (8-40); MCH 31.8 pg (25.7-33.7); MCHC 33.8 g/dl (32.0-36.0); MEAN PLT VOLUME 8.2 fl (7.5-11.1); NEUT % 66.7 % (42.8-82.8); PLATELET COUNT 372 K/MM3 (134-434); RBC 3.75 M/mm3 (3.60-5.2); RDW 14.8 % (11.6-15.6); WHITE BLOOD COUNT 8.6 K/mm3 (4.0-10.0)
--- NOTE | 2017-06-21 16:53 | PDOC ---
History of Present Illness - General History Source: Patient Exam Limitations: No Limitations - History of Present Illness Initial Comments: 06/21/17 18:09 The patient is a 62 year old female with a significant past medical history of COPD on 3L oxygen, CAD on lasix, chronic edema on lower extremities, IDDM, lupus on methotrexate and plaquenil, reflux, HLD, HTN, asthma, hypothyroidism, and seizures who presents to the emergency department for evaluation of cough and shortness of breath. The patient reports a few days of coughing and increasing tiredness. She reports intermittent episodes of chest pain and tightness with inspiration which prompted her visit to the ED. The patient reports associated symptoms of shortness of breath, subjective fever, diaphoresis, and generalized weakness. She reports she started feeling sick after her home worker has been coughing around her recently. The patient denies headache, and dizziness, chills, nausea, vomiting, diarrhea, and constipation. Denies dysuria, frequency, urgency, and hematuria. Allergies: Gabapentin, penicillin, phenytoin sodium, phenytoin sodium extended, theophylline Past surgical history: Cholecystectomy, tonsillectomy, 4x, tubal ligation, lap band (2017) Social history: Former smoker 20 years ago. No reported alcohol or drug use. PCP: Dr. Goran Hernandez [phone]) Pulm: Dr. Hyde <Quentin Paulino - Last Filed: 06/21/17 18:09> <Lilibeth Irizarry - Last Filed: 06/21/17 22:14> - General Chief Complaint: Cold Symptoms Stated Complaint: RESPIRATORY Time Seen by Provider: 06/21/17 16:10 Past History <Quentin Paulino - Last Filed: 06/21/17 18:09> - Past Medical History Anemia: No Asthma: Yes Cancer: No Cardiac Disorders: Yes (CAD) CVA: No COPD: Yes (uses 02 at 3l nasal cannula) CHF: No DVT: No Dementia: No Diabetes: Yes (iddm) GI Disorders: Yes (REFLUX) Disorders: No HTN: Yes Hypercholesterolemia: Yes Liver Disease: No Seizures: Yes (NO RECENT [id number]) Thyroid Disease: Yes (HYPO) Other medical history: lopus - Surgical History Abdominal Surgery: Yes (lapband) Appendectomy: No Cardiac Surgery: No Cholecystectomy: Yes GI Surgery: Yes (LAP sx 11/23/16) Lung Surgery: No Neurologic Surgery: No Orthopedic Surgery: Yes (BILAT HIP REPLACEMENT/BILAT KNEE SX) - Immunization History Immunization Up to Date: Yes - Suicide/Smoking/Psychosocial Hx Smoking Status: Yes Smoking History: Former smoker Have you smoked in the past 12 months: No Number of Cigarettes Smoked Daily: 10 If you are a former smoker, when did you quit?: 20 years ago Cigars Per Day: 0 Information on smoking cessation initiated: No Hx Alcohol Use: No Drug/Substance Use Hx: No Substance Use Type: None Hx Substance Use Treatment: No <Lilibeth Irizarry - Last Filed: 06/21/17 22:14> - Past Medical History Allergies/Adverse Reactions: Allergies Allergy/AdvReac Type Severity Reaction Status Date / Time gabapentin [From Neurontin] Allergy PALPITATIONS, Verified 04/25/17 11:15 PASSES OUT Penicillins Allergy TONGUE Verified 04/25/17 11:15 Swelling phenytoin sodium Allergy diarrhea/vo Verified 04/25/17 11:15 [From Dilantin] miting phenytoin sodium extended Allergy Verified 04/25/17 11:15 [From Dilantin] theophylline [Theophylline] Allergy diarrhea,SE Verified 04/25/17 11:15 IZURES Home Medications: Ambulatory Orders Albuterol Sulfate [Proair Hfa] 1 puff IH Q4H PRN 03/31/17 Atorvastatin Ca [Lipitor] 10 mg PO HS 03/31/17 Biotin 5,000 mcg PO DAILY 03/31/17 Budesonide/Formeterol Fumarate [SYMBICORT 160/4.5mcg -] 2 inh PO BID 03/31/17 Carbamazepine [Carbamazepine ER] 300 mg PO BID 03/31/17 Exenatide [Byetta] 10 mcg SQ BID 03/31/17 Furosemide [Lasix -] 80 mg PO DAILY 03/31/17 Glipizide [Glipizide Xl] 10 mg PO BID 03/31/17 Hydroxychloroquine So4 [Plaquenil -] 200 mg PO BID 03/31/17 Levothyroxine [Synthroid -] 50 mcg PO ASDIR 03/31/17 Losartan Potassium 50 mg PO DAILY 03/31/17 Metformin HCl 500 mg PO BID 03/31/17 Montelukast Na [Singulair -] 10 mg PO HS 03/31/17 [place]-3 Fatty Acids [[place]-3] 1,000 mg PO DAILY 03/31/17 Pramipexole Dihydrochloride [Mirapex -] 0.5 mg PO BID 03/31/17 Sertraline HCl 100 mg PO HS 03/31/17 Tiotropium [place] [Spiriva] 1 inh PO DAILY 03/31/17 Topiramate 100 mg PO BID 03/31/17 Insulin Lispro [Humalog] 0 unit SQ ASDIR 04/25/17 Omeprazole 40 mg PO DAILY 04/26/17 Insulin (Levemir) [Levemir Vial] 28 units SQ AM #10 ml 05/04/17 Methotrexate [Mexate -] 12.5 mg PO We@0730 tablet 05/04/17 Pen Needle, Diabetic [Insulin Pen Needle] 1 each MC AM #30 dis.needle 05/04/17 Prednisone See Taper PO DAILY #27 tablet 05/04/17 Review of Systems - Review of Systems Able to Perform ROS?: Yes Comments:: CONSTITUTIONAL: (+)subjective fever. (+)Diaphoresis. (+)Generalized weakness. Absent: chills, malaise, loss of appetite HEENT: Absent: rhinorrhea, nasal congestion, throat pain, throat swelling, difficulty swallowing, mouth swelling, ear pain, eye pain, visual Changes CARDIOVASCULAR: (+)Chest pain. Absent: syncope, palpitations, irregular heart rate, lightheadedness, peripheral edema RESPIRATORY: (+)Cough. (+)Shortness of breath. (+)Dyspnea with exertion. Absent: orthopnea, wheezing, stridor, hemoptysis GASTROINTESTINAL: Absent: abdominal pain, abdominal distension, nausea, vomiting, diarrhea, constipation, melena, hematochezia GENITOURINARY: Absent: dysuria, frequency, urgency, hesitancy, hematuria, flank pain, genital pain MUSCULOSKELETAL: Absent: myalgia, arthralgia, joint swelling SKIN: Absent: rash, itching, pallor HEMATOLOGIC/IMMUNOLOGIC: Absent: easy bleeding, easy bruising, lymphadenopathy, frequent infections ENDOCRINE: Absent: unexplained weight gain, unexplained weight loss, heat intolerance, cold intolerance NEUROLOGIC: Absent: headache, focal weakness or paresthesias, dizziness, unsteady gait, seizure, mental status changes, bladder or bowel incontinence PSYCHIATRIC: Absent: anxiety, depression, suicidal or homicidal ideation, hallucinations. <Raju,Renju - Last Filed: 06/21/17 18:09> *Physical Exam - Vital Signs Last Vital Signs Temp Pulse Resp BP Pulse Ox 99.7 F H 97 H 23 157/80 99 06/21/17 16:08 06/21/17 16:08 06/21/17 16:08 06/21/17 16:08 06/21/17 16:08 - Physical Exam Comments: GENERAL: (+)Morbidly obese. Well developed, well nourished. Awake and alert. No acute distress. HEENT: Normocephalic, atraumatic. PERRLA, EOMI. No conjunctival pallor. Sclera are non- icteric. Moist mucous membranes. Oropharynx is clear. NECK: Supple. Full ROM. No JVD. Carotid pulses 2+ and symmetric, without bruits. No thyromegaly. No lymphadenopathy. CARDIOVASCULAR: Regular rate and rhythm. No murmurs, rubs, or gallops. Distal pulses are 2+ and symmetric. PULMONARY: (+)faint rales at bases. No evidence of respiratory distress. ABDOMINAL: (+)Protuberant belly. Soft. Non-tender. Non-distended. No rebound or guarding. No organomegaly. Normoactive bowel sounds. MUSCULOSKELETAL Normal range of motion at all joints. No bony deformities or tenderness. No CVA tenderness. EXTREMITIES: (+)Bilateral pitting edema 2+. No cyanosis. No clubbing. No edema. No calf tenderness. SKIN: Warm and dry. Normal capillary refill. No rashes. No jaundice. NEUROLOGICAL: Alert, awake, appropriate. Cranial nerves 2-12 intact. No deficits to light touch and temperature in face, upper extremities and lower extremities. No motor deficits in the in face, upper extremities and lower extremities. Normoreflexic in the upper and lower extremities. Normal speech. Toes are down- going bilaterally. Gait is normal without ataxia. PSYCHIATRIC: Cooperative. Good eye contact. Appropriate mood and affect. <Quentin Paulino - Last Filed: 06/21/17 18:09> - Vital Signs Last Vital Signs Temp Pulse Resp BP Pulse Ox 99.7 F H 97 H 23 157/80 99 06/21/17 16:08 06/21/17 16:08 06/21/17 16:08 06/21/17 16:08 06/21/17 16:08 <Lilibeth Irizarry - Last Filed: 06/21/17 22:14> ED Treatment Course - LABORATORY CBC & Chemistry Diagram: 06/21/17 16:32 06/21/17 16:32 - ADDITIONAL ORDERS Additional order review: Laboratory Results 06/21/17 06/21/17 06/21/17 17:02 16:32 16:32 Sodium 142 Potassium 4.0 Chloride 106 Carbon Dioxide 28 Anion Gap 8 BUN 15 Creatinine 1.2 H Creat Clearance w eGFR 45.67 Random Glucose 87 Calcium 8.8 Total Bilirubin < 0.1 L D AST 27 ALT 30 Alkaline Phosphatase 131 H Creatine Kinase 178 Creatine Kinase Index 0.9 CK-MB (CK-2) 1.668 Troponin I < 0.02 B-Natriuretic Peptide 180.39 H Total Protein 7.8 Albumin 3.6 Urine Color Ltyellow Urine Appearance Clear Urine pH 7.0 D Ur Specific [place] 1.011 Urine Protein Negative Urine Glucose (UA) Negative Urine Ketones Negative Urine Blood Negative Urine Nitrite Negative Urine Bilirubin Negative Urine Urobilinogen Negative Ur Leukocyte Esterase Negative 06/21/17 16:32 RBC 3.75 MCV 94.0 MCHC 33.8 RDW 14.8 D MPV 8.2 Neutrophils % 66.7 Lymphocytes % 25.8 Monocytes % 6.0 Eosinophils % 0.1 Basophils % 1.4 - Medications Given in the ED: ED Medications Discontinued Medications Generic Name Dose Route Start Last Admin Trade Name Freq PRN Reason Stop Dose Admin Acetaminophen 650 mg 06/21/17 16:54 06/21/17 17:08 Tylenol - PO 06/21/17 16:55 650 mg ONCE ONE Administration <Quentin Paulino - Last Filed: 06/21/17 18:09> - LABORATORY CBC & Chemistry Diagram: 06/21/17 16:32 06/21/17 16:32 - ADDITIONAL ORDERS Additional order review: 06/21/17 16:32 RBC 3.75 MCV 94.0 MCHC 33.8 RDW 14.8 D MPV 8.2 Neutrophils % 66.7 Lymphocytes % 25.8 Monocytes % 6.0 Eosinophils % 0.1 Basophils % 1.4 <Lilibeth Irizarry - Last Filed: 06/21/17 22:14> *DC/Admit/Observation/Transfer - Attestations Scribe Attestion: Documentation prepared by Quentin Paulino, acting as pediatrician/medical doctor for Lilibeth Irizarry MD. <Quentin Paulino - Last Filed: 06/21/17 18:09> - Discharge Dispostion Decision to Admit order: Yes <Lilibeth Irizarry - Last Filed: 06/21/17 22:14> Diagnosis at time of Disposition: SOB (shortness of breath) COPD (chronic obstructive pulmonary disease) Qualifiers: COPD type: COPD with acute exacerbation Qualified Code(s): J44.1 - Chronic obstructive pulmonary disease with (acute) exacerbation CHF (congestive heart failure) Qualifiers: Heart failure type: other Qualified Code(s): I50.9 - Heart failure, unspecified - Referrals Referrals: Goran Hernandez MD [Primary Care Provider] - - Patient Instructions - Post Discharge Activity
[2017-06-21] MEDS ORDERED: ACETAMINOPHEN 325 MG TABLET (FP) PO ONE (16:54)
[2017-06-21] MEDS ORDERED: ACETAMINOPHEN 325 MG TABLET (FP) ONE ×2 (17:05→17:10)
[2017-06-21 17:11] LABS: ALBUMIN 3.6 g/dl (3.4-5.0); ANION GAP 8 (8-16); BLOOD UREA NITROGEN 15 mg/dL (7-18); CALCIUM 8.8 mg/dL (8.5-10.1); CHLORIDE 106 mmol/L (98-107); CO2 28 mmol/L (21-32); CREATININE 1.2 mg/dL (0.55-1.02); GLUCOSE,RANDOM 87 mg/dL (74-106); SGPT/ALT 30 U/L (12-78); SODIUM 142 mmol/L (136-145); TOT PROT 7.8 g/dl (6.4-8.2)
[2017-06-21 17:13] LABS: BILIRUBIN,TOTAL < 0.1 mg/dL (0.2-1.0); SGOT/AST 27 U/L (15-37)
[2017-06-21 17:14] LABS: ALK PHOS 131 U/L (45-117)
[2017-06-21 17:50] LABS: URINE APPEARANCE CLEAR; URINE BILIRUBIN NEGATIVE (<2.0 mg/dL); URINE COLOR LTYELLOW; URINE GLUCOSE (UA) NEGATIVE (NEGATIVE); URINE KETONE NEGATIVE (NEGATIVE); URINE LEUK ESTERASE NEGATIVE (NEGATIVE); URINE NITRITE NEGATIVE (NEGATIVE); URINE PROTEIN NEGATIVE (NEGATIVE); URINE UROBILINOGEN NEGATIVE mg/dL (0.2-1.0)
[2017-06-21] MEDS ORDERED: ALBUTEROL SO4 2.5/IPRATROPIUM 0.5 INH SOL 3 ML VIAL.NEB. NEB ONE ×2 (18:08→18:32)
[2017-06-21] MEDS ORDERED: DEXAMETHASONE SOD PHOSPHATE 10 MG/1 ML VIAL IM ONE (18:09)
[2017-06-21] MEDS ORDERED: DEXAMETHASONE SOD PHOSPHATE 10 MG/1 ML VIAL ONE (18:32)
[2017-06-22] MEDS ORDERED: FUROSEMIDE 20 MG TABLET (FP) PO ONE ×2 (00:56→06:28)
[2017-06-22] MEDS ORDERED: FUROSEMIDE 40 MG TABLET (FP) ONE ×2 (03:56→06:26)
[2017-06-22] MEDS ORDERED: ALBUTEROL SO4 2.5/IPRATROPIUM 0.5 INH SOL 3 ML VIAL.NEB. NEB STA (05:20)
[2017-06-22] MEDS ORDERED: ALBUTEROL SO4 2.5/IPRATROPIUM 0.5 INH SOL 3 ML VIAL.NEB. NEB ONE (05:40)
--- NOTE | 2017-06-22 06:28 | PDOC ---
*Physical Exam - Vital Signs Last Vital Signs Temp Pulse Resp BP Pulse Ox 99.7 F H 97 H 23 157/80 99 06/21/17 16:08 06/21/17 16:08 06/21/17 16:08 06/21/17 16:08 06/21/17 16:08 ED Treatment Course - LABORATORY CBC & Chemistry Diagram: 06/21/17 16:32 06/21/17 16:32 - ADDITIONAL ORDERS Additional order review: 06/21/17 16:32 RBC 3.75 MCV 94.0 MCHC 33.8 RDW 14.8 D MPV 8.2 Neutrophils % 66.7 Lymphocytes % 25.8 Monocytes % 6.0 Eosinophils % 0.1 Basophils % 1.4 - Medications Given in the ED: ED Medications Discontinued Medications Generic Name Dose Route Start Last Admin Trade Name Freq PRN Reason Stop Dose Admin Acetaminophen 650 mg 06/21/17 16:54 06/21/17 17:08 Tylenol - PO 06/21/17 16:55 650 mg ONCE ONE Administration Albuterol/Ipratropium 1 amp 06/21/17 18:08 06/21/17 18:37 Duoneb - NEB 06/21/17 18:09 1 amp ONCE ONE Administration Albuterol/Ipratropium 1 amp 06/22/17 05:20 06/22/17 06:02 Duoneb - NEB 06/22/17 05:21 1 amp ONCE STA Administration Dexamethasone Sodium Phosphate 10 mg 06/21/17 18:09 06/21/17 18:37 Decadron Injection - IM 06/21/17 18:10 10 mg ONCE ONE Administration Furosemide 20 mg 06/22/17 00:56 06/22/17 01:20 Lasix - PO 06/22/17 00:57 20 mg ONCE ONE Administration Medical Decision Making - Medical Decision Making 06/22/17 06:24 Pt still feels sob despite treatment in the ED. CE x3 are negative.. Will admit pt. *DC/Admit/Observation/Transfer Diagnosis at time of Disposition: SOB (shortness of breath) COPD (chronic obstructive pulmonary disease) Qualifiers: COPD type: COPD with acute exacerbation Qualified Code(s): J44.1 - Chronic obstructive pulmonary disease with (acute) exacerbation CHF (congestive heart failure) Qualifiers: Heart failure type: other Qualified Code(s): I50.9 - Heart failure, unspecified - Referrals - Patient Instructions - Post Discharge Activity
[2017-06-22] MEDS: INSULIN (LEVEMIR) 100 UNITS/ML UNITS SQ SCH (07:30)
--- NOTE | 2017-06-22 09:17 | HP ---
CHIEF COMPLAINT: cough, SOB PCP: Dr Heard HISTORY OF PRESENT ILLNESS: The patient is a 62 year old female with past medical history of COPD on 3 L of home oxygen, CAD, CHF, hypertension, hyperlipidemia, lupus, DANY on CPAP at night , DMII, hypothyroidism, seizure disorder, and morbid obesity presented with worsening shortness of breath, dry cough along with lower extremity swelling for 4-5 days. Her last admission was in April for COPD exacerbation. She completed Prednisone taper 40 mg. She is now taking Prednisone 10 mg chronically. After the discharge from the hospital she visited her Store Assistant Dr Laboy that increased her lasix to 80 mg daily. The patient denies chest pain , palpitations, dysuria, abdominal pain. She denies fever, chills. She denies any sick contacts. The patient is compliant with medications. ER course was notable for: (1)Dexamethasone 10 mg IV (2)Albuterol nebs (3)lasix 80 mg PAST MEDICAL HISTORY: As per HPI PAST SURGICAL HISTORY: Hip replacement, cardiac cath, tonsillectomy, Cholecystectomy Social History: Smoking: denies Alcohol: denies Drugs: denies Family History: doesn't know Allergies gabapentin [From Neurontin] Allergy (Verified 04/25/17 11:15) PALPITATIONS, PASSES OUT Penicillins Allergy (Verified 04/25/17 11:15) TONGUE Swelling phenytoin sodium [From Dilantin] Allergy (Verified 04/25/17 11:15) diarrhea/vomiting phenytoin sodium extended [From Dilantin] Allergy (Verified 04/25/17 11:15) theophylline [Theophylline] Allergy (Verified 04/25/17 11:15) diarrhea,SEIZURES HOME MEDICATIONS: Home Medications Medication Instructions Recorded Albuterol Sulfate [Proair Hfa] 1 puff IH Q4H PRN 03/31/17 Atorvastatin Ca [Lipitor] 10 mg PO HS 03/31/17 Biotin 5,000 mcg PO DAILY 03/31/17 Budesonide/Formeterol Fumarate 2 inh PO BID 03/31/17 [SYMBICORT 160/4.5mcg -] Carbamazepine [Carbamazepine ER] 300 mg PO BID 03/31/17 Exenatide [Byetta] 10 mcg SQ BID 03/31/17 Furosemide [Lasix -] 80 mg PO DAILY 03/31/17 Glipizide [Glipizide Xl] 10 mg PO BID 03/31/17 Hydroxychloroquine So4 [Plaquenil 200 mg PO BID 03/31/17 -] Levothyroxine [Synthroid -] 50 mcg PO ASDIR 03/31/17 Losartan Potassium 50 mg PO DAILY 03/31/17 Metformin HCl 500 mg PO BID 03/31/17 Montelukast Na [Singulair -] 10 mg PO HS 03/31/17 [place]-3 Fatty Acids [[place]-3] 1,000 mg PO DAILY 03/31/17 Pramipexole Dihydrochloride 0.5 mg PO BID 03/31/17 [Mirapex -] Sertraline HCl 100 mg PO HS 03/31/17 Tiotropium [place] [Spiriva] 1 inh PO DAILY 03/31/17 Topiramate 100 mg PO BID 03/31/17 Insulin Lispro [Humalog] 0 unit SQ ASDIR 04/25/17 Omeprazole 40 mg PO DAILY 04/26/17 Insulin (Levemir) [Levemir Vial] 28 units SQ AM #10 ml 05/04/17 Methotrexate [Mexate -] 12.5 mg PO We@0730 tablet 05/04/17 Pen Needle, Diabetic [Insulin Pen 1 each MC AM #30 dis.needle 05/04/17 Needle] Prednisone See Taper PO DAILY #27 tablet 05/04/17 REVIEW OF SYSTEMS CONSTITUTIONAL: Absent: fever, chills, diaphoresis, generalized weakness, malaise, loss of appetite, weight change HEENT: Absent: rhinorrhea, nasal congestion, throat pain, throat swelling, difficulty swallowing, mouth swelling CARDIOVASCULAR: peripheral edema Absent: chest pain, syncope, palpitations, irregular heart rate, lightheadedness RESPIRATORY: shortness of breath, cough Absent: cough, dyspnea with exertion, orthopnea, wheezing, stridor GASTROINTESTINAL: Absent: abdominal pain, abdominal distension, nausea, vomiting, diarrhea, constipation GENITOURINARY: Absent: dysuria, frequency, urgency, hesitancy, hematuria, MUSCULOSKELETAL: Absent: myalgia, arthralgia, joint swelling, back pain, neck pain SKIN: Absent: rash, itching, HEMATOLOGIC/IMMUNOLOGIC: Absent: easy bleeding, easy bruising ENDOCRINE: Absent: unexplained weight gain, unexplained weight loss NEUROLOGIC: Absent: headache, focal weakness or paresthesias, dizziness, unsteady gait, seizure PSYCHIATRIC: Absent: anxiety, depression PHYSICAL EXAMINATION Vital Signs - 24 hr 06/21/17 06/22/17 06/22/17 16:08 00:07 04:00 Temperature 99.7 F H 98.5 F Pulse Rate 97 H 97 H Pulse Rate [ 68 Left Radial] Respiratory 23 23 20 Rate Blood Pressure 157/80 Blood Pressure 128/60 [Left Arm] O2 Sat by Pulse 99 99 100 Oximetry (%) 06/22/17 07:50 Temperature Pulse Rate Pulse Rate [ Left Radial] Respiratory Rate Blood Pressure Blood Pressure [Left Arm] O2 Sat by Pulse 99 Oximetry (%) GENERAL: Awake, alert, and fully oriented, in no acute distress, sitting comfortably, on NC. HEAD: Normal with no signs of trauma. EYES: Pupils equal, round and reactive to light, extraocular movements intact, sclera anicteric, conjunctiva clear. EARS, NOSE, THROAT: Ears normal, nares patent, oropharynx clear without exudates. Moist mucous membranes. NECK: Normal range of motion, supple without lymphadenopathy, JVD. LUNGS: Breath sounds equal, diminished bilaterally, no wheezes, occasional crackles. HEART: Diminished heart sounds, regular rate and rhythm, normal S1 and S2 without murmur, rub or gallop. ABDOMEN: Obese, soft, nontender, not distended, normoactive bowel sounds, no guarding, no rebound, no masses. MUSCULOSKELETAL: Normal range of motion at all joints. No bony deformities or tenderness. UPPER EXTREMITIES: 2+ pulses, 1+ peripheral edema. LOWER EXTREMITIES: 2+ pulses, no calf tenderness. 2+ peripheral edema. NEUROLOGICAL: Normal speech, no facial asymmetry, motor 5/5 in all extremities, sensation to light touch intact. PSYCHIATRIC: Cooperative. Good eye contact. Appropriate mood and affect. SKIN: Warm, dry, normal turgor, no rashes or lesions noted. Laboratory Results - last 24 hr 06/21/17 06/21/17 06/21/17 16:32 16:32 16:32 WBC 8.6 RBC 3.75 Hgb 11.9 Hct 35.3 MCV 94.0 MCH 31.8 MCHC 33.8 RDW 14.8 D Plt Count 372 MPV 8.2 Neutrophils % 66.7 Lymphocytes % 25.8 Monocytes % 6.0 Eosinophils % 0.1 Basophils % 1.4 Sodium 142 Potassium 4.0 Chloride 106 Carbon Dioxide 28 Anion Gap 8 BUN 15 Creatinine 1.2 H Creat Clearance w eGFR 45.67 Random Glucose 87 Calcium 8.8 Total Bilirubin < 0.1 L D AST 27 ALT 30 Alkaline Phosphatase 131 H Creatine Kinase 178 Creatine Kinase Index 0.9 CK-MB (CK-2) 1.668 Troponin I < 0.02 B-Natriuretic Peptide 180.39 H Total Protein 7.8 Albumin 3.6 Urine Color Urine Appearance Urine pH Ur Specific [place] Urine Protein Urine Glucose (UA) Urine Ketones Urine Blood Urine Nitrite Urine Bilirubin Urine Urobilinogen Ur Leukocyte Esterase 06/21/17 06/21/17 06/22/17 17:02 23:30 05:30 WBC RBC Hgb Hct MCV MCH MCHC RDW Plt Count MPV Neutrophils % Lymphocytes % Monocytes % Eosinophils % Basophils % Sodium Potassium Chloride Carbon Dioxide Anion Gap BUN Creatinine Creat Clearance w eGFR Random Glucose Calcium Total Bilirubin AST ALT Alkaline Phosphatase Creatine Kinase 154 131 Creatine Kinase Index 0.9 CK-MB (CK-2) 1.445 Troponin I < 0.02 < 0.02 B-Natriuretic Peptide Total Protein Albumin Urine Color Ltyellow Urine Appearance Clear Urine pH 7.0 D Ur Specific [place] 1.011 Urine Protein Negative Urine Glucose (UA) Negative Urine Ketones Negative Urine Blood Negative Urine Nitrite Negative Urine Bilirubin Negative Urine Urobilinogen Negative Ur Leukocyte Esterase Negative ASSESSMENT/PLAN: The patient is a 62 year old female with past medical history of COPD on 3 L of home oxygen, CAD, CHF, hypertension, hyperlipidemia, lupus, DANY on CPAP, DMII, hypothyroidism, seizure disorder, and morbid obesity presented with worsening shortness of breath, dry cough along with lower extremity swelling for 4-5 days. She is admitted for COPD exacerbation and lower extremity edema. Acute on chronic COPD exacerbation: -no acute pathology on CXR -Dexamethasone given in ED, we will continue Solumedrol 40 mg Q8H IV -continue Oxygen supplementation -continue Azithromycin 250 mg qd -pulmonary consultation, Dr Hyde -Duonebs standing and prn q6h -hold Spiriva Lower extremity edema with SOB: -we will continue lasix 80 mg daily -Dr Laboy consultation -cardiac monitoring -BNP slightly elevated to 180 that doesn't indicate CHF exacerbation -strict i&O -sodium restriction -continue ASA DANY -Continue home CPAP at night HTN -Continue lasix 80 mg daily and losartan 50 mg daily HLD -continue lipitor 10 mg po hs Seizure d/o -Continue carbamazapine 300 mg po bid, topimax 100 mg po bid SLE -continue plaquenil 200 mg po bid, pramipaxole 0.5 mg po bid DM: -ISS ACHS -Levemir 28 units sq AM -BGM ACHS -ordered HgA1C (last one 7.1 from February 2017) Hypothyroidism -continue synthroid 50 mcg po daily FEN/GI -No IVF -no electrolyte abnormalities -Diabetic/sodium diet PPx -Protonix 40 mg po daily -heparin 5000 u sq tid Dispo: Inpatient admission to telemetry Discussed with Dr Caldwell Problem List - Problem (1) COPD (chronic obstructive pulmonary disease) Code(s): J44.9 - CHRONIC OBSTRUCTIVE PULMONARY DISEASE, UNSPECIFIED Qualifiers: COPD type: COPD with acute exacerbation Qualified Code(s): J44.1 - Chronic obstructive pulmonary disease with (acute) exacerbation (2) SOB (shortness of breath) Code(s): R06.02 - SHORTNESS OF BREATH (3) CHF (congestive heart failure) Code(s): I50.9 - HEART FAILURE, UNSPECIFIED Qualifiers: Heart failure type: other Qualified Code(s): I50.9 - Heart failure, unspecified (4) Hyperglycemia Code(s): R73.9 - HYPERGLYCEMIA, UNSPECIFIED (5) Morbid (severe) obesity due to excess calories Code(s): E66.01 - MORBID (SEVERE) OBESITY DUE TO EXCESS CALORIES (6) CAD (coronary artery disease) Code(s): I25.10 - ATHSCL HEART DISEASE OF [place] CORONARY ARTERY W/O ANG PCTRS (7) Hypertension Code(s): I10 - ESSENTIAL (PRIMARY) HYPERTENSION Qualifiers: Hypertension type: essential hypertension Qualified Code(s): I10 - Essential (primary) hypertension (8) Hypothyroidism Code(s): E03.9 - HYPOTHYROIDISM, UNSPECIFIED Qualifiers: Hypothyroidism type: unspecified Qualified Code(s): E03.9 - Hypothyroidism , unspecified (9) SLE (systemic lupus erythematosus) Code(s): M32.9 - SYSTEMIC LUPUS ERYTHEMATOSUS, UNSPECIFIED (10) Seizure disorder Code(s): G40.909 - EPILEPSY, UNSP, NOT INTRACTABLE, WITHOUT STATUS EPILEPTICUS (11) Sleep apnea, obstructive Code(s): G47.33 - OBSTRUCTIVE SLEEP APNEA (ADULT) (PEDIATRIC) (12) Type 2 diabetes mellitus Code(s): E11.9 - TYPE 2 DIABETES MELLITUS WITHOUT COMPLICATIONS Qualifiers: 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 - New Patient This patient is new to me today: No - Critical Care Critical Care patient: No Hospitalist Screening - Colonoscopy Questionnaire Colonoscopy Questionnaire: Colonoscopy Questionnaire - Patient: 50 - 75 years old and never had a screening colonoscopy: No History of colon or rectal polyps, or CA: No History of IBD, Crohn's disease or UC: No History of abdominal radiation therapy as a child: No - Relative: 1 with colon or rectal CA, or polyps at age 60 or younger: No Colon or rectal CA diagnosed at age 45 or younger: No Multiple relatives with colon or rectal CA: No - Outcome: Screening Result: Negative Screen
[2017-06-22] MEDS ORDERED: PATIENT'S OWN MEDICATION (NON-FORMULARY) (Carbamazepine [Carbamazepine Er] 300 MG) PO SCH (10:00)
[2017-06-22] MEDS ORDERED: PATIENT'S OWN MEDICATION (NON-FORMULARY) (Omeprazole [Omeprazole] 40 MG) PO SCH (10:00)
[2017-06-22] MEDS ORDERED: FUROSEMIDE 40 MG TABLET (FP) PO SCH (10:00)
[2017-06-22] MEDS ORDERED: ALBUTEROL SO4 0.083% IH SOL 2.5 MG/3 ML VIAL.NEB. NEB PRN (10:04)
[2017-06-22] MEDS ORDERED: ALBUTEROL SO4 0.083% IH SOL 2.5 MG/3 ML VIAL.NEB. NEB SCH (10:15)
--- NOTE | 2017-06-22 10:44 | PN ---
Teaching Attending Note Name of Resident: Harriet Brink ATTENDING PHYSICIAN STATEMENT I saw and evaluated the patient. I reviewed the resident's note and discussed the case with the resident. I agree with the resident's findings and plan as documented. SUBJECTIVE: This is a 62 year old woman with a history of COPD, chronic hypoxic respiratory failure, CAD, chronic diastolic heart failure, HTN, hyperlipidemia, lupus, DANY, type 2 DM, hypothyroidism, seizure disorder, morbid obesity who comes to the ED complaining of shortness of breath, non-productive cough, and swelling of her legs x 4 days. OBJECTIVE: Vital Signs Period Temp Pulse Resp BP Sys/Oconnell Pulse Ox Last 24 Hr 98.5 F-99.7 F 68-97 20-23 128-157/60-80 99-100 HEART: S1S2, RRR LUNGS: Bilateral crackles ABDOMEN: Obese, soft, non-tender, non-distended, normal BS EXTREMITIES: 1+ edema Laboratory Tests 06/21/17 06/21/17 06/21/17 16:32 16:32 16:32 WBC 8.6 RBC 3.75 Hgb 11.9 Hct 35.3 MCV 94.0 MCH 31.8 MCHC 33.8 RDW 14.8 D Plt Count 372 MPV 8.2 Neutrophils % 66.7 Lymphocytes % 25.8 Monocytes % 6.0 Eosinophils % 0.1 Basophils % 1.4 Sodium 142 Potassium 4.0 Chloride 106 Carbon Dioxide 28 Anion Gap 8 BUN 15 Creatinine 1.2 H Creat Clearance w eGFR 45.67 Random Glucose 87 Calcium 8.8 Total Bilirubin < 0.1 L D AST 27 ALT 30 Alkaline Phosphatase 131 H Creatine Kinase 178 Creatine Kinase Index 0.9 CK-MB (CK-2) 1.668 Troponin I < 0.02 B-Natriuretic Peptide 180.39 H Total Protein 7.8 Albumin 3.6 Urine Color Urine Appearance Urine pH Ur Specific [place] Urine Protein Urine Glucose (UA) Urine Ketones Urine Blood Urine Nitrite Urine Bilirubin Urine Urobilinogen Ur Leukocyte Esterase 06/21/17 06/21/17 06/22/17 17:02 23:30 05:30 WBC RBC Hgb Hct MCV MCH MCHC RDW Plt Count MPV Neutrophils % Lymphocytes % Monocytes % Eosinophils % Basophils % Sodium Potassium Chloride Carbon Dioxide Anion Gap BUN Creatinine Creat Clearance w eGFR Random Glucose Calcium Total Bilirubin AST ALT Alkaline Phosphatase Creatine Kinase 154 131 Creatine Kinase Index 0.9 CK-MB (CK-2) 1.445 Troponin I < 0.02 < 0.02 B-Natriuretic Peptide Total Protein Albumin Urine Color Ltyellow Urine Appearance Clear Urine pH 7.0 D Ur Specific [place] 1.011 Urine Protein Negative Urine Glucose (UA) Negative Urine Ketones Negative Urine Blood Negative Urine Nitrite Negative Urine Bilirubin Negative Urine Urobilinogen Negative Ur Leukocyte Esterase Negative Home Medications Medication Instructions Recorded Albuterol Sulfate [Proair Hfa] 1 puff IH Q4H PRN 03/31/17 Atorvastatin Ca [Lipitor] 10 mg PO HS 03/31/17 Biotin 5,000 mcg PO DAILY 03/31/17 Budesonide/Formeterol Fumarate 2 inh PO BID 03/31/17 [SYMBICORT 160/4.5mcg -] Carbamazepine [Carbamazepine ER] 300 mg PO BID 03/31/17 Exenatide [Byetta] 10 mcg SQ BID 03/31/17 Furosemide [Lasix -] 80 mg PO DAILY 03/31/17 Glipizide [Glipizide Xl] 10 mg PO BID 03/31/17 Hydroxychloroquine So4 [Plaquenil 200 mg PO BID 03/31/17 -] Levothyroxine [Synthroid -] 50 mcg PO ASDIR 03/31/17 Losartan Potassium 50 mg PO DAILY 03/31/17 Metformin HCl 500 mg PO BID 03/31/17 Montelukast Na [Singulair -] 10 mg PO HS 03/31/17 [place]-3 Fatty Acids [[place]-3] 1,000 mg PO DAILY 03/31/17 Pramipexole Dihydrochloride 0.5 mg PO BID 03/31/17 [Mirapex -] Sertraline HCl 100 mg PO HS 03/31/17 Tiotropium [place] [Spiriva] 1 inh PO DAILY 03/31/17 Topiramate 100 mg PO BID 03/31/17 Insulin Lispro [Humalog] 0 unit SQ ASDIR 04/25/17 Omeprazole 40 mg PO DAILY 04/26/17 Insulin (Levemir) [Levemir Vial] 28 units SQ AM #10 ml 05/04/17 Methotrexate [Mexate -] 12.5 mg PO We@0730 tablet 05/04/17 Pen Needle, Diabetic [Insulin Pen 1 each MC AM #30 dis.needle 05/04/17 Needle] Prednisone See Taper PO DAILY #27 tablet 05/04/17 ASSESSMENT AND PLAN: This is a 62 year old woman with a history of COPD, chronic hypoxic respiratory failure, CAD, chronic diastolic heart failure, HTN, hyperlipidemia, lupus, DANY, type 2 DM, hypothyroidism, seizure disorder, morbid obesity who presented to the ED with shortness of breath, non-productive cough, and swelling of her legs x 4 days. 1. Acute exacerbation of COPD - SoluMedrol, DuoNeb - Continue Symbicort, Singulair - Hold Spiriva - Oxygen to maintain saturation >90% 2. Acute on chronic diastolic heart failure - Lasix IV - Continue Cozaar - I&O - Daily weight 3. Chronic hypoxic respiratory failure 4. CAD 5. HTN - Continue Cozaar, Lasix 6. Hyperlipidemia - Continue Lipitor 7. Seizure disorder - Continue Tegretol, Topamax 8. Lupus - Continue Plaquenil, Methotrexate 9. Type 2 DM - Hold metformin, glipizide, Byetta - Continue Levemir - Fingersticks with Novolog sliding scale 10. Hypothyroidism - Continue Synthroid 11. Morbid obesity 12. DANY - Uses CPAP at night
[2017-06-22] MEDS ORDERED: CARBAMAZEPINE PO SCH (11:00)
[2017-06-22] MEDS: methylPREDNISolone NA SUCC 40 MG/1 ML VIAL IVPUSH SCH ×2 (12:00→17:36)
[2017-06-22] MEDS: LOSARTAN POTASSIUM 50 MG TABLET (FP) PO SCH (12:00)
[2017-06-22] MEDS ORDERED: methylPREDNISolone NA SUCC 40 MG/1 ML VIAL ONE (12:00)
[2017-06-22] MEDS: HEPARIN NA (PORCINE) 5,000 UNITS/ML 1ML VIAL SQ SCH ×2 (12:00→17:35)
[2017-06-22] MEDS: TOPIRAMATE 100 MG TABLET PO SCH ×2 (12:00→23:06)
[2017-06-22] MEDS ORDERED: ALBUTEROL SO4 0.083% IH SOL 2.5 MG/3 ML VIAL.NEB. NEB ONE (12:00)
[2017-06-22] MEDS: BUDESONIDE/FORMETEROL FUMARATE 160/4.5 mcg INHALER IH SCH ×2 (12:00→22:15)
[2017-06-22] MEDS: HYDROXYCHLOROQUINE SO4 200 MG TABLET (FP) PO SCH ×2 (12:05→23:06)
--- NOTE | 2017-06-22 12:07 | CON.CARD ---
Cardiology Consult (text) - Consultation Consultation Note: Chief Complaint: sob, cough, cp, le edema History of Present Illness: 62 yo female here for above cc. Several days of wheezing, cough, pleuritic cp. Also some le edema. No palps, dizzy, loc, pnd, orthopnea. 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 No: Alzheimer's Pulmonary: Yes: Asthma ...LMP: 03/18/01 Infectious Disease: Yes: AIDS Rheumatology: Yes: Lupus Endocrine: Yes: Diabetes Mellitus - Past Surgical History Past Surgical History: Yes: Cataract Removal, Cholecystectomy, Joint Replacement (Right total hip replacement), Tonsillectomy - Alcohol/Substance Use Hx Alcohol Use: No History of Substance Use: reports: None - Smoking History Smoking history: Never smoked Have you smoked in the past 12 months: No Aproximately how many cigarettes per day: 0 If you are a former smoker, when did you quit?: 2004 - Social History ADL: Independent History of Recent Travel: No - Home Medications Home Medications Medication Instructions Recorded Albuterol Sulfate [Proair Hfa] 1 puff IH Q4H PRN 03/31/17 Atorvastatin Ca [Lipitor] 10 mg PO HS 03/31/17 Biotin 5,000 mcg PO DAILY 03/31/17 Budesonide/Formeterol Fumarate 2 inh PO BID 03/31/17 [SYMBICORT 160/4.5mcg -] Carbamazepine [Carbamazepine ER] 300 mg PO BID 03/31/17 Exenatide [Byetta] 10 mcg SQ BID 03/31/17 Furosemide [Lasix -] 80 mg PO DAILY 03/31/17 Glipizide [Glipizide Xl] 10 mg PO BID 03/31/17 Hydroxychloroquine So4 [Plaquenil 200 mg PO BID 03/31/17 -] Levothyroxine [Synthroid -] 50 mcg PO ASDIR 03/31/17 Losartan Potassium 50 mg PO DAILY 03/31/17 Metformin HCl 500 mg PO BID 03/31/17 Montelukast Na [Singulair -] 10 mg PO HS 03/31/17 [place]-3 Fatty Acids [[place]-3] 1,000 mg PO DAILY 03/31/17 Pramipexole Dihydrochloride 0.5 mg PO BID 03/31/17 [Mirapex -] Sertraline HCl 100 mg PO HS 03/31/17 Tiotropium [place] [Spiriva] 1 inh PO DAILY 03/31/17 Topiramate 100 mg PO BID 03/31/17 Insulin Lispro [Humalog] 0 unit SQ ASDIR 04/25/17 Omeprazole 40 mg PO DAILY 04/26/17 Insulin (Levemir) [Levemir Vial] 28 units SQ AM #10 ml 05/04/17 Methotrexate [Mexate -] 12.5 mg PO We@0730 tablet 05/04/17 Pen Needle, Diabetic [Insulin Pen 1 each MC AM #30 dis.needle 05/04/17 Needle] Prednisone See Taper PO DAILY #27 tablet 05/04/17 Family Disease History - Family Disease History Family History: Denies (no cmp) Review of Systems - Review of Systems Constitutional: denies: Chills, Fever Eyes: denies: Eye Pain HENT: denies: Nasal Congestion Neck: denies: Stiffness Cardiovascular: denies: Palpitations Respiratory: reports: Wheezing Gastrointestinal: denies: Diarrhea, Rectal Bleeding Genitourinary: denies: Burning, Hematuria Musculoskeletal: denies: Muscle Pain Integumentary: denies: Rash Neurological: denies: Numbness, Seizure, Syncope Endocrine: denies: Excessive Sweating Hematology/Lymphatic: denies: Excessive Bleeding Vital Signs: Vital Signs Period Temp Pulse Resp BP Sys/Oconnell Pulse Ox Last 24 Hr 98.5 F-99.7 F 68-97 20-23 128-157/60-80 99-100 Constitutional: Yes: No Distress, Obese Eyes: No: Sclera Icterus HENT: No: Nasal Congestion Neck: No: Decreased ROM Respiratory: Yes: b/l wheeze No: Accessory Muscle Use, Rales, Wheezes Gastrointestinal: Yes: Normal Bowel Sounds. No: Distention, Hepatomegaly, Palpable Mass, Tenderness Cardiovascular: Yes: Regular Rate and Rhythm (decr intensity sounds) JVD: No Carotid Bruit: No PMI: Non-Displaced Heart Sounds: Yes: S1, S2. No: Gallop Murmur: No: Systolic Murmur, Diastolic Murmur Musculoskeletal: Yes: Other (No kyphosis) Extremities: No: Cold, Cyanosis Edema: trace le edema bl Peripheral Pulses: 2+ Left Carotid, 2+ Right Carotid, 2+ Left Doralis Pedis, 2+ Right Dorsalis Pedis Integumentary: No: Jaundice Neurological: Yes: Alert, Oriented (x3) Psychiatric: No: Agitated - Other Data Labs, Other Data: Laboratory Last Values WBC 8.6 K/mm3 (4.0-10.0) 06/21/17 16:32 RBC 3.75 M/mm3 (3.60-5.2) 06/21/17 16:32 Hgb 11.9 GM/dL (10.7-15.3) 06/21/17 16:32 Hct 35.3 % (32.4-45.2) 06/21/17 16:32 MCV 94.0 fl (80-96) 06/21/17 16:32 MCH 31.8 pg (25.7-33.7) 06/21/17 16:32 MCHC 33.8 g/dl (32.0-36.0) 06/21/17 16:32 RDW 14.8 % (11.6-15.6) D 06/21/17 16:32 Plt Count 372 K/MM3 (134-434) 06/21/17 16:32 MPV 8.2 fl (7.5-11.1) 06/21/17 16:32 Neutrophils % 66.7 % (42.8-82.8) 06/21/17 16:32 Lymphocytes % 25.8 % (8-40) 06/21/17 16:32 Monocytes % 6.0 % (3.8-10.2) 06/21/17 16:32 Eosinophils % 0.1 % (0-4.5) 06/21/17 16:32 Basophils % 1.4 % (0-2.0) 06/21/17 16:32 Sodium 142 mmol/L (136-145) 06/21/17 16:32 Potassium 4.0 mmol/L (3.5-5.1) 06/21/17 16:32 Chloride 106 mmol/L (98-107) 06/21/17 16:32 Carbon Dioxide 28 mmol/L (21-32) 06/21/17 16:32 Anion Gap 8 (8-16) 06/21/17 16:32 BUN 15 mg/dL (7-18) 06/21/17 16:32 Creatinine 1.2 mg/dL (0.55-1.02) H 06/21/17 16:32 Creat Clearance w eGFR 45.67 (>60) 06/21/17 16:32 Random Glucose 87 mg/dL (74-106) 06/21/17 16:32 Calcium 8.8 mg/dL (8.5-10.1) 06/21/17 16:32 Total Bilirubin < 0.1 mg/dL (0.2-1.0) L D 06/21/17 16:32 AST 27 U/L (15-37) 06/21/17 16:32 ALT 30 U/L (12-78) 06/21/17 16:32 Alkaline Phosphatase 131 U/L (45-117) H 06/21/17 16:32 Creatine Kinase 131 IU/L (26-192) 06/22/17 05:30 Creatine Kinase Index 0.9 % (0.0-5.0) 06/21/17 23:30 CK-MB (CK-2) 1.445 ng/mL (0.5-3.6) 06/21/17 23:30 Troponin I < 0.02 ng/ml (0.00-0.05) 06/22/17 05:30 B-Natriuretic Peptide 180.39 pg/ml (5-125) H 06/21/17 16:32 Total Protein 7.8 g/dl (6.4-8.2) 06/21/17 16:32 Albumin 3.6 g/dl (3.4-5.0) 06/21/17 16:32 Urine Color Ltyellow 06/21/17 17:02 Urine Appearance Clear 06/21/17 17:02 Urine pH 7.0 (5.0-8.0) D 06/21/17 17:02 Ur Specific [place] 1.011 (1.001-1.035) 06/21/17 17:02 Urine Protein Negative (NEGATIVE) 06/21/17 17:02 Urine Glucose (UA) Negative (NEGATIVE) 06/21/17 17:02 Urine Ketones Negative (NEGATIVE) 06/21/17 17:02 Urine Blood Negative (NEGATIVE) 06/21/17 17:02 Urine Nitrite Negative (NEGATIVE) 06/21/17 17:02 Urine Bilirubin Negative (<2.0 mg/dL) 06/21/17 17:02 Urine Urobilinogen Negative mg/dL (0.2-1.0) 06/21/17 17:02 Ur Leukocyte Esterase Negative (NEGATIVE) 06/21/17 17:02 [facility] 08/30 (monte): mild luminal irregularities LCX; LVEDP 25 Nuclear Stress Test done 07/09/16: nl ecg, mild anteroseptal ischemia, nl lvef 79 % Echo 03/02: normal LV systolic function; nl RV; mild MR/TR; nl RVSP. echo 03/2017: nl lv/rv, no sig valve path, nl rvsp CXR: no chf ECG: NSR, normal axis/intervals. no path q's, no ST-Ts Assessment/Plan sob, acute asthma exacerbation: -likely main etiology of current sxs is asthma -steroids per pmd/pulm Atypical chest pain -CHRONIC. SX'S ARE M-SKEL (PLEURITIC, WORSE WITH COUGHING) WITH NORMAL COR ANGIOGRAM (PRIOR MPI FINDINGS HIGHLY LIKELY FALSE POSITIVE DUE TO SOFT TISSUE ATTENUATION) -SIMILAR SX'S HERE, CE's Negx3. NO FURTHER CARDIAC W/U INDICATED AT THIS TIME acute diastolic congestive heart failure -CHRONIC SOB MULTIFACTORIAL--LARGE COMPONENT FROM COPD, OBESITY/DECONDITIONING, AND DANY (INCLUDING PND). -ON LASIX 80 QD AT HOME. Here with some le edema now. -agree with trial of iv lasix. Essential hypertension -cont home meds Pure hypercholesterolemia -cont statin
[2017-06-22] MEDS: INSULIN SLIDING SCALE (NOVOLOG) 1 VIAL SQ SCH ×3 (12:10→23:14)
[2017-06-22] MEDS: PRAMIPEXOLE DIHYDROCHLORIDE 0.5 MG TABLET PO SCH ×2 (12:10→22:16)
[2017-06-22] MEDS: ALBUTEROL SO4 2.5/IPRATROPIUM 0.5 INH SOL 3 ML VIAL.NEB. NEB SCH ×2 (12:17→17:14)
[2017-06-22] MEDS ORDERED: INSULIN REGULAR HUMAN 100 UNITS/ML *VIAL ONE (12:17)
[2017-06-22] MEDS: AZITHROMYCIN IVPB 250 MG in DEXTROSE 5%-WATER - 250 ML IVPB SCH (12:18)
[2017-06-22] MEDS ORDERED: AZITHROMYCIN IVPB 250 ML IVPB ONE (12:19)
[2017-06-22] MEDS: PANTOPRAZOLE 40 MG TABLET (FP) PO SCH (12:20)
--- NOTE | 2017-06-22 17:15 | CON.PULM ---
Consult - History of Present Illness Chief Complaint: Cough and shortness of breath History of Present Illness: Increasing cough and dyspnea despite increase in Furosemide to 80 mg daily. Pt has a history of COPD, Lupus, seizure disorder, DANY and uses CPAP (AutoPAp) at home and O2 at home. She denies recent chest pain or palpitations or fever. No hemoptysis. She was hospitalized in February and March 2017 with exacerbation COPD. She has been on Prednisone in varying doses for several months. She has been on 10 mg daily for several weeks. PFT 06/06/2017: Minimal obstruction. Mild restriction. 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 Cardio/Vascular: Yes: CAD, HTN, Hyperlipdemia Pulmonary: Yes: Asthma, COPD, O2 Dependent, Sleep Apnea, Other (uses NIPPV at night) ...LMP: 03/18/01 Rheumatology: Yes: Lupus Endocrine: Yes: Diabetes Mellitus - Past Surgical History Past Surgical History: Yes: Cataract Removal, Cholecystectomy, , Joint Replacement (Right total hip replacement), Tonsillectomy - Alcohol/Substance Use Hx Alcohol Use: No History of Substance Use: reports: None - Smoking History Smoking history: Former smoker Have you smoked in the past 12 months: No Aproximately how many cigarettes per day: 10 If you are a former smoker, when did you quit?: 20 years ago - Social History Usual Living Arrangement: With Spouse ADL: Independent History of Recent Travel: No Home Medications - Allergies Allergies/Adverse Reactions: Allergies Allergy/AdvReac Type Severity Reaction Status Date / Time gabapentin [From Neurontin] Allergy PALPITATIONS, Verified 04/25/17 11:15 PASSES OUT Penicillins Allergy TONGUE Verified 04/25/17 11:15 Swelling phenytoin sodium Allergy diarrhea/vo Verified 04/25/17 11:15 [From Dilantin] miting phenytoin sodium extended Allergy Verified 04/25/17 11:15 [From Dilantin] theophylline [Theophylline] Allergy diarrhea,SE Verified 04/25/17 11:15 IZURES - Home Medications Home Medications: Ambulatory Orders Albuterol Sulfate [Proair Hfa] 1 puff IH Q4H PRN 03/31/17 Atorvastatin Ca [Lipitor] 10 mg PO HS 03/31/17 Biotin 5,000 mcg PO DAILY 03/31/17 Budesonide/Formeterol Fumarate [SYMBICORT 160/4.5mcg -] 2 inh PO BID 03/31/17 Carbamazepine [Carbamazepine ER] 300 mg PO BID 03/31/17 Exenatide [[place]] 10 mcg SQ BID 03/31/17 Furosemide [Lasix -] 80 mg PO DAILY 03/31/17 Glipizide [Glipizide Xl] 10 mg PO BID 03/31/17 Hydroxychloroquine So4 [Plaquenil -] 200 mg PO BID 03/31/17 Levothyroxine [Synthroid -] 50 mcg PO ASDIR 03/31/17 Losartan Potassium 50 mg PO DAILY 03/31/17 Metformin HCl 500 mg PO BID 03/31/17 Montelukast Na [Singulair -] 10 mg PO HS 03/31/17 [place]-3 Fatty Acids [[place]-3] 1,000 mg PO DAILY 03/31/17 Pramipexole Dihydrochloride [Mirapex -] 0.5 mg PO BID 03/31/17 Sertraline HCl 100 mg PO HS 03/31/17 Tiotropium [place] [Spiriva] 1 inh PO DAILY 03/31/17 Topiramate 100 mg PO BID 03/31/17 Insulin Lispro [Humalog] 0 unit SQ ASDIR 04/25/17 Omeprazole 40 mg PO DAILY 04/26/17 Insulin (Levemir) [Levemir Vial] 28 units SQ AM #10 ml 05/04/17 Methotrexate [Mexate -] 12.5 mg PO We@0730 tablet 05/04/17 Pen Needle, Diabetic [Insulin Pen Needle] 1 each MC AM #30 dis.needle 05/04/17 Prednisone See Taper PO DAILY #27 tablet 05/04/17 Physical Exam Vital Sings: Vital Signs Temperature 98 F 06/22/17 12:45 Pulse Rate 82 06/22/17 12:45 Respiratory Rate 19 06/22/17 15:48 Blood Pressure 136/86 06/22/17 12:45 O2 Sat by Pulse Oximetry (%) 95 06/22/17 15:48 Constitutional: Yes: No Distress Eyes: No: Sclera Icterus HENT: Yes: Atraumatic Neck: Yes: Supple, Trachea Midline Cardiovascular: Yes: Regular Rate and Rhythm. No: JVD Respiratory: Yes: CTA Bilaterally ...Clubbing: No Gastrointestinal: Yes: Soft. No: Hepatomegaly, Splenomegaly, Tenderness Extremities: No: Calf Tenderness Edema: Yes Edema: LUE: 4+ (pedal edema) Neurological: Yes: Alert, Oriented Labs: CBC, BMP 06/21/17 16:32 06/21/17 16:32 Imaging - Results Chest X-ray: Report Reviewed, Image Reviewed (MARY) Problem List - Problems (1) Acute and chronic respiratory failure with hypoxia Code(s): J96.21 - ACUTE AND CHRONIC RESPIRATORY FAILURE WITH HYPOXIA (2) Acute exacerbation of chronic obstructive pulmonary disease (COPD) Code(s): J44.1 - CHRONIC OBSTRUCTIVE PULMONARY DISEASE W (ACUTE) EXACERBATION (3) Obstructive sleep apnea (adult) (pediatric) Code(s): G47.33 - OBSTRUCTIVE SLEEP APNEA (ADULT) (PEDIATRIC) (4) Morbid (severe) obesity due to excess calories Code(s): E66.01 - MORBID (SEVERE) OBESITY DUE TO EXCESS CALORIES (5) Diastolic congestive heart failure Code(s): I50.30 - UNSPECIFIED DIASTOLIC (CONGESTIVE) HEART FAILURE (6) SLE (systemic lupus erythematosus) Code(s): M32.9 - SYSTEMIC LUPUS ERYTHEMATOSUS, UNSPECIFIED Assessment/Plan Acute exacerbation COPD. Acute on chronic hypoxic respiratory failure. DANY. Morbid Obesity. Daistolic CHF, SLE. Increased dyspnea despite current medications Suggest; IV steroids O2 to maintain SaO2 >90 Inhaled bronchodilators Diuretic treatment per cardiology CPAP-pt to use her own machine.
[2017-06-22] MEDS: LEVOTHYROXINE NA 50 MCG TABLET (FP) PO SCH (17:35)
[2017-06-22] MEDS ORDERED: METHOTREXATE 2.5 MG TABLET PO SCH (20:30)
[2017-06-22] MEDS: ATORVASTATIN CA 10 MG TABLET (FP) PO SCH (22:13)
[2017-06-22] MEDS: MONTELUKAST NA 10 MG TABLET PO SCH (22:14)
[2017-06-22] MEDS: SERTRALINE HCL 50 MG TABLET (FP) PO SCH (22:14)
[2017-06-22] MEDS ORDERED: INSULIN (NOVOLOG) ASPART 100 UNITS/ML 10ML VIAL ONE (23:12)
[2017-06-23] MEDS: ALBUTEROL SO4 2.5/IPRATROPIUM 0.5 INH SOL 3 ML VIAL.NEB. NEB SCH ×5 (00:07→20:45)
[2017-06-23] MEDS: HEPARIN NA (PORCINE) 5,000 UNITS/ML 1ML VIAL SQ SCH ×3 (03:00→17:03)
[2017-06-23] MEDS: methylPREDNISolone NA SUCC 40 MG/1 ML VIAL IVPUSH SCH ×3 (03:00→17:03)
[2017-06-23 06:34] LABS: BASO % 0.6 % (0-2.0); EOS % 0.1 % (0-4.5); HEMATOCRIT 34.6 % (32.4-45.2); HEMOGLOBIN 11.4 GM/dL (10.7-15.3); LYMPH % 18.2 % (8-40); MCH 31.8 pg (25.7-33.7); MEAN CELL VOLUME 96.3 fl (80-96); MEAN PLT VOLUME 8.1 fl (7.5-11.1); MONO % 6.1 % (3.8-10.2); PLATELET COUNT 390 K/MM3 (134-434); RBC 3.59 M/mm3 (3.60-5.2); RDW 14.9 % (11.6-15.6); WHITE BLOOD COUNT 9.4 K/mm3 (4.0-10.0)
[2017-06-23] MEDS: INSULIN (LEVEMIR) 100 UNITS/ML UNITS SQ SCH (06:41)
[2017-06-23] MEDS: LEVOTHYROXINE NA 50 MCG TABLET (FP) PO SCH (06:42)
[2017-06-23] MEDS: INSULIN SLIDING SCALE (NOVOLOG) 1 VIAL SQ SCH ×4 (06:42→21:56)
[2017-06-23] MEDS ORDERED: PT OWN MED DRAWER 7, Y5N ONE ×3 (08:09→21:29)
--- NOTE | 2017-06-23 09:34 | PN ---
Teaching Attending Note Name of Resident: Hariret Brink ATTENDING PHYSICIAN STATEMENT I saw and evaluated the patient. I reviewed the resident's note and discussed the case with the resident. I agree with the resident's findings and plan as documented. SUBJECTIVE: Patient reports she is feeling a little better. OBJECTIVE: Vital Signs Period Temp Pulse Resp BP Sys/[place] Pulse Ox Last 24 Hr 97.3 F-98.6 F 65-90 18-20 130-145/48-86 3-98 HEART: S1S2, RRR LUNGS: Clear with diminished BS ABDOMEN: Obese, soft, non-tender, non-distended, normal BS EXTREMITIES: Trace edema Laboratory Results - last 24 hr 06/22/17 06/22/17 06/22/17 12:12 17:39 23:10 WBC RBC Hgb Hct MCV MCH MCHC RDW Plt Count MPV Neutrophils % Lymphocytes % Monocytes % Eosinophils % Basophils % POC Glucometer [id number] 351 06/23/17 06/23/17 06:05 06:40 WBC 9.4 RBC 3.59 L Hgb 11.4 Hct 34.6 MCV 96.3 H MCH 31.8 MCHC 33.0 RDW 14.9 Plt Count 390 MPV 8.1 Neutrophils % 75.0 Lymphocytes % 18.2 D Monocytes % 6.1 Eosinophils % 0.1 Basophils % 0.6 POC Glucometer 191 Current Medications Generic Name Dose Route Start Last Admin Trade Name Freq PRN Reason Stop Dose Admin Albuterol Sulfate 1 amp 06/22/17 10:04 06/22/17 12:17 Ventolin 0.083% Nebulizer Soln - NEB 1 amp Q4H PRN Administration SHORT OF BREATH/WHEEZING Albuterol/Ipratropium 1 amp 06/22/17 11:00 06/23/17 06:20 Duoneb - NEB 1 amp QIDR DONTA Administration Atorvastatin Calcium 10 mg 06/22/17 22:00 06/22/17 22:13 Lipitor - PO 10 mg HS DONTA Administration Budesonide/Formoterol Fumarate 2 puff 06/22/17 12:00 06/22/17 22:15 Symbicort 160/4.5mcg - IH 2 puff BID ODNTA Administration Carbamazepine 300 mg 06/22/17 22:00 06/22/17 23:05 Tegretol Xr - PO 300 mg BID DONTA Administration Furosemide 80 mg 06/23/17 10:00 Lasix Injection - IVPUSH DAILY DONTA Heparin Sodium (Porcine) 5,000 unit 06/22/17 10:00 06/23/17 03:00 Heparin - SQ 5,000 unit Q8H-IV DONTA Administration Hydroxychloroquine Sulfate 200 mg 06/22/17 10:45 06/22/17 23:06 Plaquenil - PO 200 mg BID DONTA Administration Azithromycin 250 mg/ Dextrose 250 mls @ 250 mls/hr 06/22/17 11:00 06/22/17 12 :18 IVPB 250 mls/hr DAILY DONTA Administration Insulin Aspart 1 vial 06/22/17 11:00 06/23/17 06:42 Novolog Vial Sliding Scale - SQ 2 units ACHS DONTA Administration Protocol Insulin Detemir 30 units 06/24/17 07:00 Levemir Vial SQ DAILY@0700 DONTA Levothyroxine Sodium 50 mcg 06/22/17 16:00 06/23/17 06:42 Synthroid - PO 50 mcg DAILY@0700 DONTA Administration Losartan Potassium 50 mg 06/22/17 10:45 06/22/17 12:00 Cozaar - PO 50 mg DAILY DONTA Administration Methotrexate 12.5 mg 06/22/17 20:30 06/22/17 22:13 Mexate - PO 12.5 mg We@1000 DONTA Administration Methylprednisolone Sodium Succinate 40 mg 06/22/17 10:45 06/23/17 03:00 Solu-Medrol - IVPUSH 40 mg Q8H-IV DONTA Administration Montelukast Sodium 10 mg 06/22/17 22:00 06/22/17 22:14 Singulair - PO 10 mg HS DONTA Administration Pantoprazole Sodium 40 mg 06/22/17 10:45 06/22/17 12:20 Protonix - PO 40 mg DAILY DONTA Administration Pramipexole Dihydrochloride 0.5 mg 06/22/17 11:00 06/22/17 22:16 Mirapex - PO 0.5 mg BID DONTA Administration Sertraline HCl 100 mg 06/22/17 22:00 06/22/17 22:14 Zoloft - PO 100 mg HS DONTA Administration Topiramate 100 mg 06/22/17 11:00 06/22/17 23:06 Topamax - PO 100 mg BID DONTA Administration ASSESSMENT AND PLAN: This is a 62 year old woman with a history of COPD, chronic hypoxic respiratory failure, CAD, chronic diastolic heart failure, HTN, hyperlipidemia, lupus, DANY, type 2 DM, hypothyroidism, seizure disorder, morbid obesity who presented to the ED with shortness of breath, non-productive cough, and swelling of her legs x 4 days. 1. Acute exacerbation of COPD - Continue SoluMedrol, Symbicort, Singulair, DuoNeb - Spiriva held - Continue oxygen to maintain saturation >90% 2. Acute on chronic diastolic heart failure - Continue Lasix IV, Cozaar - I&O - Daily weight 3. Chronic hypoxic respiratory failure 4. CAD 5. HTN - Continue Cozaar, Lasix 6. Hyperlipidemia - Continue Lipitor 7. Seizure disorder - Continue Tegretol, Topamax 8. Lupus - Continue Plaquenil, Methotrexate 9. Type 2 DM - Continue Levemir, Novolog sliding scale - Metformin, glipizide, Byetta held 10. Hypothyroidism - Continue Synthroid 11. Morbid obesity with BMI 49.2 12. DANY - Uses CPAP at night
[2017-06-23] MEDS: PANTOPRAZOLE 40 MG TABLET (FP) PO SCH (09:36)
[2017-06-23] MEDS: FUROSEMIDE 40 MG/4 ML INJECTABLE VIAL IVPUSH SCH (09:36)
[2017-06-23] MEDS: HYDROXYCHLOROQUINE SO4 200 MG TABLET (FP) PO SCH ×2 (09:38→21:56)
[2017-06-23] MEDS: TOPIRAMATE 100 MG TABLET PO SCH ×2 (09:38→21:57)
[2017-06-23] MEDS: PRAMIPEXOLE DIHYDROCHLORIDE 0.5 MG TABLET PO SCH ×2 (09:38→21:56)
[2017-06-23] MEDS: LOSARTAN POTASSIUM 50 MG TABLET (FP) PO SCH (09:46)
[2017-06-23] MEDS: BUDESONIDE/FORMETEROL FUMARATE 160/4.5 mcg INHALER IH SCH ×2 (09:48→23:00)
[2017-06-23 10:30] LABS: ALBUMIN 3.5 g/dl (3.4-5.0); ANION GAP 17 (8-16); BILIRUBIN,TOTAL 0.2 mg/dL (0.2-1.0); BLOOD UREA NITROGEN 18 mg/dL (7-18); CALCIUM 9.4 mg/dL (8.5-10.1); CHLORIDE 108 mmol/L (98-107); CO2 18 mmol/L (21-32); CREATININE 1.1 mg/dL (0.55-1.02); GLUCOSE,RANDOM 169 mg/dL (74-106); POTASSIUM 4.1 mmol/L (3.5-5.1); SGOT/AST 19 U/L (15-37); SGPT/ALT 25 U/L (12-78); SODIUM 143 mmol/L (136-145); TOT PROT 7.3 g/dl (6.4-8.2)
[2017-06-23 10:34] LABS: ALK PHOS 123 U/L (45-117); N-TERMINAL BNP 111.79 pg/ml (5-125)
--- NOTE | 2017-06-23 10:56 | PN ---
Progress Note (short form) - Note Progress Note: s: still with sob, le edema, a little better, no cp palps dizzy o: Vital Signs Period Temp Pulse Resp BP Sys/Oconnell Pulse Ox Last 24 Hr 97.3 F-98.6 F 65-90 18-20 130-145/48-86 3-98 Constitutional: Yes: No Distress, Obese Eyes: No: Sclera Icterus HENT: No: Nasal Congestion Neck: No: Decreased ROM Respiratory: Yes: b/l wheeze No: Accessory Muscle Use, Rales, Wheezes Gastrointestinal: Yes: Normal Bowel Sounds. No: Distention, Hepatomegaly, Palpable Mass, Tenderness Cardiovascular: Yes: Regular Rate and Rhythm (decr intensity sounds) JVD: No Heart Sounds: Yes: S1, S2. No: Gallop Murmur: No: Systolic Murmur, Diastolic Murmur Extremities: No: Cold, Cyanosis Edema: trace le edema bl Integumentary: No: Jaundice Neurological: Yes: Alert, Oriented (x3) Psychiatric: No: Agitated Current Medications Generic Name Dose Route Start Last Admin Trade Name Freq PRN Reason Stop Dose Admin Albuterol Sulfate 1 amp 06/22/17 10:04 06/22/17 12:17 Ventolin 0.083% Nebulizer Soln - NEB 1 amp Q4H PRN Administration SHORT OF BREATH/WHEEZING Albuterol/Ipratropium 1 amp 06/22/17 11:00 06/23/17 06:20 Duoneb - NEB 1 amp QIDR DONTA Administration Atorvastatin Calcium 10 mg 06/22/17 22:00 06/22/17 22:13 Lipitor - PO 10 mg HS DONTA Administration Budesonide/Formoterol Fumarate 2 puff 06/22/17 12:00 06/23/17 09:48 Symbicort 160/4.5mcg - IH 2 puff BID DONTA Administration Carbamazepine 300 mg 06/22/17 22:00 06/23/17 09:37 Tegretol Xr - PO 300 mg BID DONTA Administration Furosemide 80 mg 06/23/17 10:00 06/23/17 09:36 Lasix Injection - IVPUSH 80 mg DAILY DONTA Administration Heparin Sodium (Porcine) 5,000 unit 06/22/17 10:00 06/23/17 09:36 Heparin - SQ 5,000 unit Q8H-IV DONTA Administration Hydroxychloroquine Sulfate 200 mg 06/22/17 10:45 06/23/17 09:38 Plaquenil - PO 200 mg BID DONTA Administration Azithromycin 250 mg/ Dextrose 250 mls @ 250 mls/hr 06/22/17 11:00 06/22/17 12 :18 IVPB 250 mls/hr DAILY DONTA Administration Insulin Aspart 1 vial 06/22/17 11:00 06/23/17 06:42 Novolog Vial Sliding Scale - SQ 2 units ACHS DONTA Administration Protocol Insulin Detemir 30 units 06/24/17 07:00 Levemir Vial SQ DAILY@0700 DONTA Levothyroxine Sodium 50 mcg 06/22/17 16:00 06/23/17 06:42 Synthroid - PO 50 mcg DAILY@0700 DONTA Administration Losartan Potassium 50 mg 06/22/17 10:45 06/23/17 09:46 Cozaar - PO 50 mg DAILY DONTA Administration Methotrexate 12.5 mg 06/22/17 20:30 06/22/17 22:13 Mexate - PO 12.5 mg We@1000 DONTA Administration Methylprednisolone Sodium Succinate 40 mg 06/22/17 10:45 06/23/17 09:36 Solu-Medrol - IVPUSH 40 mg Q8H-IV DONTA Administration Montelukast Sodium 10 mg 06/22/17 22:00 06/22/17 22:14 Singulair - PO 10 mg HS DONTA Administration Pantoprazole Sodium 40 mg 06/22/17 10:45 06/23/17 09:36 Protonix - PO 40 mg DAILY DONTA Administration Pramipexole Dihydrochloride 0.5 mg 06/22/17 11:00 06/23/17 09:38 Mirapex - PO 0.5 mg BID DONTA Administration Sertraline HCl 100 mg 06/22/17 22:00 06/22/17 22:14 Zoloft - PO 100 mg HS DONTA Administration Topiramate 100 mg 06/22/17 11:00 06/23/17 09:38 Topamax - PO 100 mg BID DONTA Administration - Other Data Labs, Other Data: CBC, BMP 06/23/17 06:05 06/23/17 06:05 LHC 08/30 (monte): mild luminal irregularities LCX; LVEDP 25 Nuclear Stress Test done 07/09/16: nl ecg, mild anteroseptal ischemia, nl lvef 79 % Echo 03/02: normal LV systolic function; nl RV; mild MR/TR; nl RVSP. echo 03/2017: nl lv/rv, no sig valve path, nl rvsp CXR: no chf ECG: NSR, normal axis/intervals. no path q's, no ST-Ts tele: sr Assessment/Plan sob, acute asthma exacerbation: -likely main etiology of current sxs is asthma -steroids per pmd/pulm Atypical chest pain -CHRONIC. SX'S ARE M-SKEL (PLEURITIC, WORSE WITH COUGHING) WITH NORMAL COR ANGIOGRAM (PRIOR MPI FINDINGS HIGHLY LIKELY FALSE POSITIVE DUE TO SOFT TISSUE ATTENUATION) -SIMILAR SX'S HERE, CE's Negx3. NO FURTHER CARDIAC W/U INDICATED AT THIS TIME acute diastolic congestive heart failure -CHRONIC SOB MULTIFACTORIAL--LARGE COMPONENT FROM COPD, OBESITY/DECONDITIONING, AND DANY (INCLUDING PND). -ON LASIX 80 QD AT HOME. Here with some le edema now. -agree with trial of iv lasix. Essential hypertension -cont home meds Pure hypercholesterolemia -cont statin
[2017-06-23] MEDS: AZITHROMYCIN IVPB 250 MG in DEXTROSE 5%-WATER - 250 ML IVPB SCH (11:25)
--- NOTE | 2017-06-23 12:58 | PN ---
Physical Exam: SUBJECTIVE: Patient seen and examined. She is still complaining of cough and SOB. The patient denies fever, chills, chest pain. OBJECTIVE: Vital Signs Period Temp Pulse Resp BP Sys/Oconnell Pulse Ox Last 24 Hr 97.3 F-98.6 F 65-90 18-20 130-145/48-74 95-98 GENERAL: The patient is awake, alert, and fully oriented, in no acute distress, lying in bed on NC. HEAD: Normal with no signs of trauma. EYES: extraocular movements intact, conjunctiva clear. ENT: Oropharynx clear without exudates, moist mucous membranes. NECK: Trachea midline, full range of motion, supple. LUNGS: Diminished breath sounds bilaterally, no wheezes, no crackles, no accessory muscle use. HEART: Regular rate and rhythm, distant heart sounds, S1, S2 without murmur, rub or gallop. ABDOMEN: Obese, soft, nontender, nondistended, normoactive bowel sounds, no guarding, no rebound, no hepatosplenomegaly, no masses. EXTREMITIES: 2+ pulses, 2+ lower extremity edema. NEUROLOGICAL: Normal speech, no facial asymmetry, gait not observed. PSYCH: Normal mood, normal affect. SKIN: Warm, dry, normal turgor, no rashes. Laboratory Results - last 24 hr 06/22/17 06/22/17 06/22/17 12:12 17:39 23:10 WBC RBC Hgb Hct MCV MCH MCHC RDW Plt Count MPV Neutrophils % Lymphocytes % Monocytes % Eosinophils % Basophils % Sodium Potassium Chloride Carbon Dioxide Anion Gap BUN Creatinine Creat Clearance w eGFR POC Glucometer [phone] 351 Random Glucose Hemoglobin A1c % Calcium Total Bilirubin AST ALT Alkaline Phosphatase B-Natriuretic Peptide Total Protein Albumin 06/23/17 06/23/17 06/23/17 06:05 06:05 06:05 WBC 9.4 RBC 3.59 L Hgb 11.4 Hct 34.6 MCV 96.3 H MCH 31.8 MCHC 33.0 RDW 14.9 Plt Count 390 MPV 8.1 Neutrophils % 75.0 Lymphocytes % 18.2 D Monocytes % 6.1 Eosinophils % 0.1 Basophils % 0.6 Sodium 143 Potassium 4.1 Chloride 108 H Carbon Dioxide 18 L Anion Gap 17 H BUN 18 Creatinine 1.1 H Creat Clearance w eGFR 50.50 POC Glucometer Random Glucose 169 H Hemoglobin A1c % 9.4 H Calcium 9.4 Total Bilirubin 0.2 D AST 19 ALT 25 Alkaline Phosphatase 123 H B-Natriuretic Peptide 111.79 Total Protein 7.3 Albumin 3.5 06/23/17 06/23/17 06:40 11:20 WBC RBC Hgb Hct MCV MCH MCHC RDW Plt Count MPV Neutrophils % Lymphocytes % Monocytes % Eosinophils % Basophils % Sodium Potassium Chloride Carbon Dioxide Anion Gap BUN Creatinine Creat Clearance w eGFR POC Glucometer 191 213 Random Glucose Hemoglobin A1c % Calcium Total Bilirubin AST ALT Alkaline Phosphatase B-Natriuretic Peptide Total Protein Albumin Active Medications Generic Name Dose Route Start Last Admin Trade Name Freq PRN Reason Stop Dose Admin Albuterol Sulfate 1 amp 06/22/17 10:04 06/22/17 12:17 Ventolin 0.083% Nebulizer Soln - NEB 1 amp Q4H PRN Administration SHORT OF BREATH/WHEEZING Albuterol/Ipratropium 1 amp 06/22/17 11:00 06/23/17 06:20 Duoneb - NEB 1 amp QIDR DONTA Administration Atorvastatin Calcium 10 mg 06/22/17 22:00 06/22/17 22:13 Lipitor - PO 10 mg HS DONTA Administration Budesonide/Formoterol Fumarate 2 puff 06/22/17 12:00 06/23/17 09:48 Symbicort 160/4.5mcg - IH 2 puff BID DONTA Administration Carbamazepine 300 mg 06/22/17 22:00 06/23/17 09:37 Tegretol Xr - PO 300 mg BID DONTA Administration Furosemide 80 mg 06/23/17 10:00 06/23/17 09:36 Lasix Injection - IVPUSH 80 mg DAILY DONTA Administration Heparin Sodium (Porcine) 5,000 unit 06/22/17 10:00 06/23/17 09:36 Heparin - SQ 5,000 unit Q8H-IV DONTA Administration Hydroxychloroquine Sulfate 200 mg 06/22/17 10:45 06/23/17 09:38 Plaquenil - PO 200 mg BID DONTA Administration Azithromycin 250 mg/ Dextrose 250 mls @ 250 mls/hr 06/22/17 11:00 06/23/17 11 :25 IVPB 250 mls/hr DAILY DONTA Administration Insulin Aspart 1 vial 06/22/17 11:00 06/23/17 11:21 Novolog Vial Sliding Scale - SQ 4 units ACHS DONTA Administration Protocol Insulin Detemir 30 units 06/24/17 07:00 Levemir Vial SQ DAILY@0700 [facility] Levothyroxine Sodium 50 mcg 06/22/17 16:00 06/23/17 06:42 Synthroid - PO 50 mcg DAILY@0700 DONTA Administration Losartan Potassium 50 mg 06/22/17 10:45 06/23/17 09:46 Cozaar - PO 50 mg DAILY DONTA Administration Methotrexate 12.5 mg 06/22/17 20:30 06/22/17 22:13 Mexate - PO 12.5 mg We@1000 DONTA Administration Methylprednisolone Sodium Succinate 40 mg 06/22/17 10:45 06/23/17 09:36 Solu-Medrol - IVPUSH 40 mg Q8H-IV DONTA Administration Montelukast Sodium 10 mg 06/22/17 22:00 06/22/17 22:14 Singulair - PO 10 mg HS DONTA Administration Pantoprazole Sodium 40 mg 06/22/17 10:45 06/23/17 09:36 Protonix - PO 40 mg DAILY DONTA Administration Pramipexole Dihydrochloride 0.5 mg 06/22/17 11:00 06/23/17 09:38 Mirapex - PO 0.5 mg BID DONTA Administration Sertraline HCl 100 mg 06/22/17 22:00 06/22/17 22:14 Zoloft - PO 100 mg HS DONTA Administration Topiramate 100 mg 06/22/17 11:00 06/23/17 09:38 Topamax - PO 100 mg BID DONTA Administration ASSESSMENT/PLAN: The patient is a 62 year old female with past medical history of COPD on 3 L of home oxygen, CAD, CHF, hypertension, hyperlipidemia, lupus, DANY on CPAP, DMII, hypothyroidism, seizure disorder, and morbid obesity presented with worsening shortness of breath, dry cough along with lower extremity swelling for 4-5 days. She is admitted for COPD exacerbation and lower extremity edema. Acute on chronic COPD exacerbation: -no acute pathology on CXR -continue Solumedrol 40 mg Q8H IV -continue Oxygen supplementation -continue Azithromycin 250 mg qd, today day 2 -pulmonary consultation, Dr Hyde, will follow up recommendations -Duo nebs standing and prn q6h -hold Spiriva Lower extremity edema with SOB: -we will continue lasix 80 mg IV daily -f/u cardiology consultation -cardiac monitoring -BNP slightly elevated to 180 that doesn't indicate CHF exacerbation -daily weights -sodium restriction -continue ASA DANY -Continue home CPAP at night HTN -Continue Lasix 80 mg daily and Losartan 50 mg daily HLD -continue Lipitor 10 mg po hs Seizure d/o -Continue carbamazapine 300 mg po bid, topimax 100 mg po bid SLE -continue plaquenil 200 mg po bid, pramipaxole 0.5 mg po bid DM: -ISS ACHS -Levemir 28 units sq AM, will increase to 30 units tomorrow -BGM ACHS -new HgA1c 9.4, significantly worse than in February 2017 7.1% Hypothyroidism -continue Synthroid 50 mcg po daily FEN/GI -No IVF -no electrolyte abnormalities -Diabetic/sodium diet PPx -Protonix 40 mg po daily -Heparin 5000 u sq tid Dispo: telemetry Discussed with Dr Caldwell Problem List - Problems (1) COPD (chronic obstructive pulmonary disease) Code(s): J44.9 - CHRONIC OBSTRUCTIVE PULMONARY DISEASE, UNSPECIFIED Qualifiers: COPD type: COPD with acute exacerbation Qualified Code(s): J44.1 - Chronic obstructive pulmonary disease with (acute) exacerbation (2) SOB (shortness of breath) Code(s): R06.02 - SHORTNESS OF BREATH (3) CHF (congestive heart failure) Code(s): I50.9 - HEART FAILURE, UNSPECIFIED Qualifiers: Heart failure type: other Qualified Code(s): I50.9 - Heart failure, unspecified (4) Hyperglycemia Code(s): R73.9 - HYPERGLYCEMIA, UNSPECIFIED (5) Morbid (severe) obesity due to excess calories Code(s): E66.01 - MORBID (SEVERE) OBESITY DUE TO EXCESS CALORIES (6) CAD (coronary artery disease) Code(s): I25.10 - ATHSCL HEART DISEASE OF [place] CORONARY ARTERY W/O ANG PCTRS (7) Hypertension Code(s): I10 - ESSENTIAL (PRIMARY) HYPERTENSION Qualifiers: Hypertension type: essential hypertension Qualified Code(s): I10 - Essential (primary) hypertension (8) Hypothyroidism Code(s): E03.9 - HYPOTHYROIDISM, UNSPECIFIED Qualifiers: Hypothyroidism type: unspecified Qualified Code(s): E03.9 - Hypothyroidism , unspecified (9) SLE (systemic lupus erythematosus) Code(s): M32.9 - SYSTEMIC LUPUS ERYTHEMATOSUS, UNSPECIFIED (10) Seizure disorder Code(s): G40.909 - EPILEPSY, UNSP, NOT INTRACTABLE, WITHOUT STATUS EPILEPTICUS (11) Sleep apnea, obstructive Code(s): G47.33 - OBSTRUCTIVE SLEEP APNEA (ADULT) (PEDIATRIC) (12) Type 2 diabetes mellitus Code(s): E11.9 - TYPE 2 DIABETES MELLITUS WITHOUT COMPLICATIONS Qualifiers: Diabetes mellitus shelter insulin use: without moth exterminator use Diabetes mellitus complication status: with kidney complications Diabetes mellitus complication detail: with chronic kidney disease Chronic kidney disease stage : unspecified stage Qualified Code(s): E11.22 - Type 2 diabetes mellitus with diabetic chronic kidney disease Visit type - Emergency Visit Emergency Visit: Yes ED Registration Date: 06/22/17 Care time: The patient presented to the Emergency Department on the above date and was hospitalized for further evaluation of their emergent condition. - New Patient This patient is new to me today: No - Critical Care Critical Care patient: No - Discharge Referral Referred to [facility] Med P.C.: No
--- NOTE | 2017-06-23 17:15 | PN ---
Progress Note, Physician History of Present Illness: Slightly less dyspneic today. Diurising with IV Lasix - Current Medication List Current Medications: Active Medications Albuterol Sulfate (Ventolin 0.083% Nebulizer Soln -) 1 amp NEB Q4H PRN PRN Reason: SHORT OF BREATH/WHEEZING Last Admin: 06/22/17 12:17 Dose: 1 amp Albuterol/Ipratropium (Duoneb -) 1 amp NEB QIDR [facility] Last Admin: 06/23/17 11:40 Dose: 1 amp Atorvastatin Calcium (Lipitor -) 10 mg PO HS [facility] Last Admin: 06/22/17 22:13 Dose: 10 mg Budesonide/Formoterol Fumarate (Symbicort 160/4.5mcg -) 2 puff IH BID [facility] Last Admin: 06/23/17 09:48 Dose: 2 puff Carbamazepine (Tegretol Xr -) 300 mg PO BID [facility] Last Admin: 06/23/17 09:37 Dose: 300 mg Furosemide (Lasix Injection -) 80 mg IVPUSH DAILY [facility] Last Admin: 06/23/17 09:36 Dose: 80 mg Heparin Sodium (Porcine) (Heparin -) 5,000 unit SQ Q8H-IV [facility] Last Admin: 06/23/17 17:03 Dose: 5,000 unit Hydroxychloroquine Sulfate (Plaquenil -) 200 mg PO BID [facility] Last Admin: 06/23/17 09:38 Dose: 200 mg Azithromycin 250 mg/ Dextrose 250 mls @ 250 mls/hr IVPB DAILY [facility] Last Admin: 06/23/17 11:25 Dose: 250 mls/hr Insulin Aspart (Novolog Vial Sliding Scale -) 1 vial SQ ACHS [facility] PRN Reason: Protocol Last Admin: 06/23/17 16:58 Dose: 10 units Insulin Detemir (Levemir Vial) 30 units SQ DAILY@0700 [facility] Levothyroxine Sodium (Synthroid -) 50 mcg PO DAILY@0700 [facility] Last Admin: 06/23/17 06:42 Dose: 50 mcg Losartan Potassium (Cozaar -) 50 mg PO DAILY [facility] Last Admin: 06/23/17 09:46 Dose: 50 mg Methotrexate (Mexate -) 12.5 mg PO We@1000 [facility] Last Admin: 06/22/17 22:13 Dose: 12.5 mg Methylprednisolone Sodium Succinate (Solu-Medrol -) 40 mg IVPUSH Q8H-IV [facility] Last Admin: 06/23/17 17:03 Dose: 40 mg Montelukast Sodium (Singulair -) 10 mg PO [facility] Last Admin: 06/22/17 22:14 Dose: 10 mg Pantoprazole Sodium (Protonix -) 40 mg PO DAILY [facility] Last Admin: 06/23/17 09:36 Dose: 40 mg Pramipexole Dihydrochloride (Mirapex -) 0.5 mg PO BID [facility] Last Admin: 06/23/17 09:38 Dose: 0.5 mg Sertraline HCl (Zoloft -) 100 mg PO [facility] Last Admin: 06/22/17 22:14 Dose: 100 mg Topiramate (Topamax -) 100 mg PO BID [facility] Last Admin: 06/23/17 09:38 Dose: 100 mg - Objective Vital Signs: Vital Signs Temperature 98.4 F 06/23/17 14:05 Pulse Rate 82 06/23/17 14:05 Respiratory Rate 20 06/23/17 14:05 Blood Pressure 151/55 06/23/17 14:05 O2 Sat by Pulse Oximetry (%) 98 06/23/17 07:59 Constitutional: Yes: No Distress Eyes: No: Sclera Icterus HENT: Yes: Atraumatic, Normocephalic Neck: Yes: Supple, Trachea Midline Cardiovascular: Yes: Regular Rate and Rhythm. No: JVD Respiratory: Yes: Diminished (bilateral) Gastrointestinal: Yes: Soft. No: Tenderness Edema: LLE: 2+, RLE: 2+ Neurological: Yes: Alert, Oriented Labs: CBC, BMP 06/23/17 06:05 06/23/17 06:05 Assessment/Plan Acute exacerbation COPD. Acute on chronic hypoxic respiratory failure. DANY. Morbid Obesity. Diastolic CHF, SLE. Dyspnea and edema slightly improved Suggest; IV steroids O2 to maintain SaO2 >90 Inhaled bronchodilators Diuretic treatment per cardiology CPAP-pt to use her own machine.
[2017-06-23] MEDS: ATORVASTATIN CA 10 MG TABLET (FP) PO SCH (21:55)
[2017-06-23] MEDS: MONTELUKAST NA 10 MG TABLET PO SCH (21:56)
[2017-06-23] MEDS: SERTRALINE HCL 50 MG TABLET (FP) PO SCH (21:57)
[2017-06-23] MEDS ORDERED: INSULIN (NOVOLOG) ASPART 100 UNITS/ML 10ML VIAL ONE (22:00)
[2017-06-24] MEDS: HEPARIN NA (PORCINE) 5,000 UNITS/ML 1ML VIAL SQ SCH ×3 (02:54→17:54)
[2017-06-24] MEDS: methylPREDNISolone NA SUCC 40 MG/1 ML VIAL IVPUSH SCH ×3 (02:54→17:54)
[2017-06-24] MEDS: INSULIN SLIDING SCALE (NOVOLOG) 1 VIAL SQ SCH ×4 (06:34→21:27)
[2017-06-24] MEDS: LEVOTHYROXINE NA 50 MCG TABLET (FP) PO SCH (06:34)
[2017-06-24] MEDS: INSULIN (LEVEMIR) 100 UNITS/ML UNITS SQ SCH (06:35)
[2017-06-24 07:31] LABS: BASO % 0.5 % (0-2.0); HEMATOCRIT 35.5 % (32.4-45.2); HEMOGLOBIN 11.8 GM/dL (10.7-15.3); LYMPH % 19.3 % (8-40); MCH 31.5 pg (25.7-33.7); MCHC 33.2 g/dl (32.0-36.0); MEAN CELL VOLUME 94.9 fl (80-96); MEAN PLT VOLUME 8.2 fl (7.5-11.1); MONO % 4.2 % (3.8-10.2); PLATELET COUNT 404 K/MM3 (134-434); RBC 3.73 M/mm3 (3.60-5.2); RDW 14.7 % (11.6-15.6)
[2017-06-24] MEDS: ALBUTEROL SO4 2.5/IPRATROPIUM 0.5 INH SOL 3 ML VIAL.NEB. NEB SCH ×4 (07:35→21:00)
[2017-06-24 07:50] LABS: ALBUMIN 3.7 g/dl (3.4-5.0); ANION GAP 8 (8-16); BLOOD UREA NITROGEN 23 mg/dL (7-18); CALCIUM 9.5 mg/dL (8.5-10.1); CHLORIDE 101 mmol/L (98-107); CO2 30 mmol/L (21-32); GLUCOSE,RANDOM 230 mg/dL (74-106); POTASSIUM 4.3 mmol/L (3.5-5.1); SODIUM 139 mmol/L (136-145)
[2017-06-24 07:54] LABS: ALK PHOS 126 U/L (45-117); BILIRUBIN,TOTAL 0.2 mg/dL (0.2-1.0); CREATININE 1.3 mg/dL (0.55-1.02); SGOT/AST 22 U/L (15-37); SGPT/ALT 31 U/L (12-78); TOT PROT 7.7 g/dl (6.4-8.2)
[2017-06-24] MEDS: AZITHROMYCIN IVPB 250 MG in DEXTROSE 5%-WATER - 250 ML IVPB SCH (09:20)
[2017-06-24] MEDS: BUDESONIDE/FORMETEROL FUMARATE 160/4.5 mcg INHALER IH SCH ×2 (09:20→21:24)
--- NOTE | 2017-06-24 09:21 | PN ---
Physical Exam: SUBJECTIVE: Patient seen and examined. She is feeling good today, complaining of constipation. OBJECTIVE: Vital Signs Period Temp Pulse Resp BP Sys/Oconnell Pulse Ox Last 24 Hr 97.0 F-98.4 F 64-87 18-20 129-164/55-82 95-96 GENERAL: The patient is awake, alert, and fully oriented, in no acute distress, lying in bed on NC. HEAD: Normal with no signs of trauma. EYES: extraocular movements intact, conjunctiva clear. ENT: Oropharynx clear without exudates, moist mucous membranes. NECK: Trachea midline, full range of motion, supple. LUNGS: Diminished breath sounds bilaterally, no wheezes, no crackles, no accessory muscle use. HEART: Regular rate and rhythm, distant heart sounds, S1, S2 without murmur, rub or gallop. ABDOMEN: Obese, soft, nontender, nondistended, normoactive bowel sounds, no guarding, no rebound, no hepatosplenomegaly, no masses. EXTREMITIES: 2+ pulses, 2+ lower extremity edema. NEUROLOGICAL: Normal speech, no facial asymmetry, gait not observed. PSYCH: Normal mood, normal affect. SKIN: Warm, dry, normal turgor, no rashes. Laboratory Results - last 24 hr 06/23/17 06/23/17 06/23/17 06:05 06:05 11:20 WBC RBC Hgb Hct MCV MCH MCHC RDW Plt Count MPV Neutrophils % Lymphocytes % Monocytes % Eosinophils % Basophils % Sodium 143 Potassium 4.1 Chloride 108 H Carbon Dioxide 18 L Anion Gap 17 H BUN 18 Creatinine 1.1 H Creat Clearance w eGFR 50.50 POC Glucometer 213 Random Glucose 169 H Hemoglobin A1c % 9.4 H Calcium 9.4 Total Bilirubin 0.2 D AST 19 ALT 25 Alkaline Phosphatase 123 H B-Natriuretic Peptide 111.79 Total Protein 7.3 Albumin 3.5 06/23/17 06/23/17 06/24/17 16:57 21:55 05:26 WBC RBC Hgb Hct MCV MCH MCHC RDW Plt Count MPV Neutrophils % Lymphocytes % Monocytes % Eosinophils % Basophils % Sodium Potassium Chloride Carbon Dioxide Anion Gap BUN Creatinine Creat Clearance w eGFR POC Glucometer 283 270 212 Random Glucose Hemoglobin A1c % Calcium Total Bilirubin AST ALT Alkaline Phosphatase B-Natriuretic Peptide Total Protein Albumin 06/24/17 06/24/17 06:15 06:15 WBC 8.0 RBC 3.73 Hgb 11.8 Hct 35.5 MCV 94.9 MCH 31.5 MCHC 33.2 RDW 14.7 Plt Count 404 MPV 8.2 Neutrophils % 76.0 Lymphocytes % 19.3 Monocytes % 4.2 Eosinophils % 0.0 D Basophils % 0.5 Sodium 139 Potassium 4.3 Chloride 101 Carbon Dioxide 30 Anion Gap 8 BUN 23 H Creatinine 1.3 H Creat Clearance w eGFR 41.64 POC Glucometer Random Glucose 230 H Hemoglobin A1c % Calcium 9.5 Total Bilirubin 0.2 AST 22 ALT 31 Alkaline Phosphatase 126 H B-Natriuretic Peptide Total Protein 7.7 Albumin 3.7 Active Medications Generic Name Dose Route Start Last Admin Trade Name Freq PRN Reason Stop Dose Admin Albuterol Sulfate 1 amp 06/22/17 10:04 06/22/17 12:17 Ventolin 0.083% Nebulizer Soln - NEB 1 amp Q4H PRN Administration SHORT OF BREATH/WHEEZING Albuterol/Ipratropium 1 amp 06/23/17 20:00 06/23/17 20:45 Duoneb - NEB 1 amp RQID DONTA Administration Atorvastatin Calcium 10 mg 06/22/17 22:00 06/23/17 21:55 Lipitor - PO 10 mg HS DONTA Administration Budesonide/Formoterol Fumarate 2 puff 06/22/17 12:00 06/23/17 23:00 Symbicort 160/4.5mcg - IH 2 puff BID DONTA Administration Carbamazepine 300 mg 06/22/17 22:00 06/23/17 21:57 Tegretol Xr - PO 300 mg BID DONTA Administration Furosemide 80 mg 06/23/17 10:00 06/23/17 09:36 Lasix Injection - IVPUSH 80 mg DAILY DONTA Administration Heparin Sodium (Porcine) 5,000 unit 06/22/17 10:00 06/24/17 02:54 Heparin - SQ 5,000 unit Q8H-IV DONTA Administration Hydroxychloroquine Sulfate 200 mg 06/22/17 10:45 06/23/17 21:56 Plaquenil - PO 200 mg BID DONTA Administration Azithromycin 250 mg/ Dextrose 250 mls @ 250 mls/hr 06/22/17 11:00 06/23/17 11 :25 IVPB 250 mls/hr DAILY DONTA Administration Insulin Aspart 1 vial 06/22/17 11:00 06/24/17 06:34 Novolog Vial Sliding Scale - SQ 6 units ACHS DONTA Administration Protocol Insulin Detemir 30 units 06/24/17 07:00 06/24/17 06:35 Levemir Vial SQ 30 units DAILY@0700 DONTA Administration Levothyroxine Sodium 50 mcg 06/22/17 16:00 06/24/17 06:34 Synthroid - PO 50 mcg DAILY@0700 DONTA Administration Losartan Potassium 50 mg 06/22/17 10:45 06/23/17 09:46 Cozaar - PO 50 mg DAILY DONTA Administration Methotrexate 12.5 mg 06/22/17 20:30 06/22/17 22:13 Mexate - PO 12.5 mg We@1000 DONTA Administration Methylprednisolone Sodium Succinate 40 mg 06/22/17 10:45 06/24/17 02:54 Solu-Medrol - IVPUSH 40 mg Q8H-IV DONTA Administration Montelukast Sodium 10 mg 06/22/17 22:00 06/23/17 21:56 Singulair - PO 10 mg HS DONTA Administration Pantoprazole Sodium 40 mg 06/22/17 10:45 06/23/17 09:36 Protonix - PO 40 mg DAILY DONTA Administration Pramipexole Dihydrochloride 0.5 mg 06/22/17 11:00 06/23/17 21:56 Mirapex - PO 0.5 mg BID DONTA Administration Sertraline HCl 100 mg 06/22/17 22:00 06/23/17 21:57 Zoloft - PO 100 mg HS DONTA Administration Topiramate 100 mg 06/22/17 11:00 06/23/17 21:57 Topamax - PO 100 mg BID DONTA Administration ASSESSMENT/PLAN: The patient is a 62 year old female with past medical history of COPD on 3 L of home oxygen, CAD, CHF, hypertension, hyperlipidemia, lupus, DANY on CPAP, DMII, hypothyroidism, seizure disorder, and morbid obesity presented with worsening shortness of breath, dry cough along with lower extremity swelling for 4-5 days. She is admitted for COPD exacerbation and lower extremity edema. Acute on chronic COPD exacerbation: -no acute pathology on CXR -continue Solumedrol 40 mg Q8H IV -continue Oxygen supplementation -continue Azithromycin 250 mg qd, today day 3 -pulmonary consultation, Dr Hyde, will follow up recommendations -Duo nebs standing and prn q6h -hold Spiriva Lower extremity edema with SOB: -we will continue lasix 80 mg IV daily -f/u cardiology consultation -cardiac monitoring -BNP slightly elevated to 180 that doesn't indicate CHF exacerbation -daily weights -sodium restriction -continue ASA DANY -Continue home CPAP at night Elevated Cr: -the patient has elevation of Cr to 1.3 today -will monitor for now HTN -Continue Lasix 80 mg daily and Losartan 50 mg daily HLD -continue Lipitor 10 mg po hs Seizure d/o -Continue carbamazapine 300 mg po bid, topimax 100 mg po bid SLE -continue plaquenil 200 mg po bid, pramipaxole 0.5 mg po bid DM: -ISS ACHS -Levemir increased to 30 units AM -BGM ACHS -new HgA1c 9.4%, significantly worse than in February 2017 7.1% Hypothyroidism -continue Synthroid 50 mcg po daily FEN/GI -No IVF -no electrolyte abnormalities -Diabetic/sodium diet PPx -Protonix 40 mg po daily -Heparin 5000 u sq tid Dispo: telemetry Discussed with Dr Caldwell Problem List - Problems (1) COPD (chronic obstructive pulmonary disease) Code(s): J44.9 - CHRONIC OBSTRUCTIVE PULMONARY DISEASE, UNSPECIFIED Qualifiers: COPD type: COPD with acute exacerbation Qualified Code(s): J44.1 - Chronic obstructive pulmonary disease with (acute) exacerbation (2) SOB (shortness of breath) Code(s): R06.02 - SHORTNESS OF BREATH (3) CHF (congestive heart failure) Code(s): I50.9 - HEART FAILURE, UNSPECIFIED Qualifiers: Heart failure type: other Qualified Code(s): I50.9 - Heart failure, unspecified (4) Hyperglycemia Code(s): R73.9 - HYPERGLYCEMIA, UNSPECIFIED (5) Morbid (severe) obesity due to excess calories Code(s): E66.01 - MORBID (SEVERE) OBESITY DUE TO EXCESS CALORIES (6) CAD (coronary artery disease) Code(s): I25.10 - ATHSCL HEART DISEASE OF [place] CORONARY ARTERY W/O ANG PCTRS (7) Hypertension Code(s): I10 - ESSENTIAL (PRIMARY) HYPERTENSION Qualifiers: Hypertension type: essential hypertension Qualified Code(s): I10 - Essential (primary) hypertension (8) Hypothyroidism Code(s): E03.9 - HYPOTHYROIDISM, UNSPECIFIED Qualifiers: Hypothyroidism type: unspecified Qualified Code(s): E03.9 - Hypothyroidism , unspecified (9) SLE (systemic lupus erythematosus) Code(s): M32.9 - SYSTEMIC LUPUS ERYTHEMATOSUS, UNSPECIFIED (10) Seizure disorder Code(s): G40.909 - EPILEPSY, UNSP, NOT INTRACTABLE, WITHOUT STATUS EPILEPTICUS (11) Sleep apnea, obstructive Code(s): G47.33 - OBSTRUCTIVE SLEEP APNEA (ADULT) (PEDIATRIC) (12) Type 2 diabetes mellitus Code(s): E11.9 - TYPE 2 DIABETES MELLITUS WITHOUT COMPLICATIONS Qualifiers: Diabetes mellitus shelter insulin use: without shelter use Diabetes mellitus complication status: with kidney complications Diabetes mellitus complication detail: with chronic kidney disease Chronic kidney disease stage : unspecified stage Qualified Code(s): E11.22 - Type 2 diabetes mellitus with diabetic chronic kidney disease Visit type - Emergency Visit Emergency Visit: Yes ED Registration Date: 06/22/17 Care time: The patient presented to the Emergency Department on the above date and was hospitalized for further evaluation of their emergent condition. - New Patient This patient is new to me today: No - Critical Care Critical Care patient: No - Discharge Referral Referred to [facility] Med [facility] Yes Physician Referral: Morgan Hyde MD (Pulm)
[2017-06-24] MEDS: PANTOPRAZOLE 40 MG TABLET (FP) PO SCH (09:22)
[2017-06-24] MEDS: FUROSEMIDE 40 MG/4 ML INJECTABLE VIAL IVPUSH SCH (09:22)
[2017-06-24] MEDS: LOSARTAN POTASSIUM 50 MG TABLET (FP) PO SCH (09:22)
[2017-06-24] MEDS: PRAMIPEXOLE DIHYDROCHLORIDE 0.5 MG TABLET PO SCH ×2 (09:23→21:23)
[2017-06-24] MEDS: TOPIRAMATE 100 MG TABLET PO SCH ×2 (09:24→21:24)
[2017-06-24] MEDS: HYDROXYCHLOROQUINE SO4 200 MG TABLET (FP) PO SCH ×2 (09:24→21:23)
--- NOTE | 2017-06-24 11:44 | PN ---
Progress Note (short form) - Note Progress Note: s: still with sob, le edema, a little better, no cp palps dizzy o: Vital Signs Period Temp Pulse Resp BP Sys/Oconnell Pulse Ox Last 24 Hr 97.0 F-98.4 F 64-87 18-20 129-164/55-82 95-96 Constitutional: Yes: No Distress, Obese Eyes: No: Sclera Icterus HENT: No: Nasal Congestion Neck: No: Decreased ROM Respiratory: Yes: b/l wheeze No: Accessory Muscle Use, Rales, Wheezes Gastrointestinal: Yes: Normal Bowel Sounds. No: Distention, Hepatomegaly, Palpable Mass, Tenderness Cardiovascular: Yes: Regular Rate and Rhythm (decr intensity sounds) JVD: No Heart Sounds: Yes: S1, S2. No: Gallop Murmur: No: Systolic Murmur, Diastolic Murmur Extremities: No: Cold, Cyanosis Edema: trace le edema bl Integumentary: No: Jaundice Neurological: Yes: Alert, Oriented (x3) Psychiatric: No: Agitated Current Medications Generic Name Dose Route Start Last Admin Trade Name Freq PRN Reason Stop Dose Admin Albuterol Sulfate 1 amp 06/22/17 10:04 06/22/17 12:17 Ventolin 0.083% Nebulizer Soln - NEB 1 amp Q4H PRN Administration SHORT OF BREATH/WHEEZING Albuterol/Ipratropium 1 amp 06/23/17 20:00 06/24/17 11:15 Duoneb - NEB 1 amp RQID DONTA Administration Atorvastatin Calcium 10 mg 06/22/17 22:00 06/23/17 21:55 Lipitor - PO 10 mg HS DONTA Administration Budesonide/Formoterol Fumarate 2 puff 06/22/17 12:00 06/24/17 09:20 Symbicort 160/4.5mcg - IH 2 puff BID DONTA Administration Carbamazepine 300 mg 06/22/17 22:00 06/24/17 09:23 Tegretol Xr - PO 300 mg BID DONTA Administration Furosemide 80 mg 06/23/17 10:00 06/24/17 09:22 Lasix Injection - IVPUSH 80 mg DAILY DONTA Administration Heparin Sodium (Porcine) 5,000 unit 06/22/17 10:00 06/24/17 09:21 Heparin - SQ 5,000 unit Q8H-IV DONTA Administration Hydroxychloroquine Sulfate 200 mg 06/22/17 10:45 06/24/17 09:24 Plaquenil - PO 200 mg BID DONTA Administration Azithromycin 250 mg/ Dextrose 250 mls @ 250 mls/hr 06/22/17 11:00 06/24/17 09 :20 IVPB 250 mls/hr DAILY DONTA Administration Insulin Aspart 1 vial 06/22/17 11:00 06/24/17 06:34 Novolog Vial Sliding Scale - SQ 6 units ACHS DONTA Administration Protocol Insulin Detemir 30 units 06/24/17 07:00 06/24/17 06:35 Levemir Vial SQ 30 units DAILY@0700 DONTA Administration Levothyroxine Sodium 50 mcg 06/22/17 16:00 06/24/17 06:34 Synthroid - PO 50 mcg DAILY@0700 DONTA Administration Losartan Potassium 50 mg 06/22/17 10:45 06/24/17 09:22 Cozaar - PO 50 mg DAILY DONTA Administration Methotrexate 12.5 mg 06/22/17 20:30 06/22/17 22:13 Mexate - PO 12.5 mg We@1000 DONTA Administration Methylprednisolone Sodium Succinate 40 mg 06/22/17 10:45 06/24/17 09:21 Solu-Medrol - IVPUSH 40 mg Q8H-IV DONTA Administration Montelukast Sodium 10 mg 06/22/17 22:00 06/23/17 21:56 Singulair - PO 10 mg HS DONTA Administration Pantoprazole Sodium 40 mg 06/22/17 10:45 06/24/17 09:22 Protonix - PO 40 mg DAILY DONTA Administration Pramipexole Dihydrochloride 0.5 mg 06/22/17 11:00 06/24/17 09:23 Mirapex - PO 0.5 mg BID DONTA Administration Sertraline HCl 100 mg 06/22/17 22:00 06/23/17 21:57 Zoloft - PO 100 mg HS DONTA Administration Topiramate 100 mg 06/22/17 11:00 06/24/17 09:24 Topamax - PO 100 mg BID DONTA Administration CBC, BMP 06/24/17 06:15 06/24/17 06:15 LHC 08/30 (monte): mild luminal irregularities LCX; LVEDP 25 Nuclear Stress Test done 07/09/16: nl ecg, mild anteroseptal ischemia, nl lvef 79 % Echo 03/02: normal LV systolic function; nl RV; mild MR/TR; nl RVSP. echo 03/2017: nl lv/rv, no sig valve path, nl rvsp CXR: no chf ECG: NSR, normal axis/intervals. no path q's, no ST-Ts tele: sr Assessment/Plan sob, acute asthma exacerbation: -likely main etiology of current sxs is asthma -steroids per pmd/pulm Atypical chest pain -CHRONIC. SX'S ARE M-SKEL (PLEURITIC, WORSE WITH COUGHING) WITH NORMAL COR ANGIOGRAM (PRIOR MPI FINDINGS HIGHLY LIKELY FALSE POSITIVE DUE TO SOFT TISSUE ATTENUATION) -SIMILAR SX'S HERE, CE's Negx3. NO FURTHER CARDIAC W/U INDICATED AT THIS TIME acute diastolic congestive heart failure -CHRONIC SOB MULTIFACTORIAL--LARGE COMPONENT FROM COPD, OBESITY/DECONDITIONING, AND DANY (INCLUDING PND). -ON LASIX 80 QD AT HOME. Here with some le edema now. -agree iv lasix for now, le edema improving Essential hypertension -cont home meds Pure hypercholesterolemia -cont statin
--- NOTE | 2017-06-24 15:44 | PN ---
Teaching Attending Note Name of Resident: Harriet Brink ATTENDING PHYSICIAN STATEMENT I saw and evaluated the patient. I reviewed the resident's note and discussed the case with the resident. I agree with the resident's findings and plan as documented. SUBJECTIVE: Patient continues to feel SOB. OBJECTIVE: Vital Signs Period Temp Pulse Resp BP Sys/Oconnell Pulse Ox Last 24 Hr 97.0 F-98.4 F 64-87 18-20 129-164/61-82 95-96 HEART: S1S2, RRR LUNGS: Clear with diminished BS ABDOMEN: Obese, soft, non-tender, non-distended, normal BS EXTREMITIES: Trace edema Laboratory Results - last 24 hr 06/23/17 06/23/17 06/24/17 16:57 21:55 05:26 WBC RBC Hgb Hct MCV MCH MCHC RDW Plt Count MPV Neutrophils % Lymphocytes % Monocytes % Eosinophils % Basophils % Sodium Potassium Chloride Carbon Dioxide Anion Gap BUN Creatinine Creat Clearance w eGFR POC Glucometer 283 270 212 Random Glucose Calcium Total Bilirubin AST ALT Alkaline Phosphatase Total Protein Albumin 06/24/17 06/24/17 06/24/17 06:15 06:15 11:46 WBC 8.0 RBC 3.73 Hgb 11.8 Hct 35.5 MCV 94.9 MCH 31.5 MCHC 33.2 RDW 14.7 Plt Count 404 MPV 8.2 Neutrophils % 76.0 Lymphocytes % 19.3 Monocytes % 4.2 Eosinophils % 0.0 D Basophils % 0.5 Sodium 139 Potassium 4.3 Chloride 101 Carbon Dioxide 30 Anion Gap 8 BUN 23 H Creatinine 1.3 H Creat Clearance w eGFR 41.64 POC Glucometer 294 Random Glucose 230 H Calcium 9.5 Total Bilirubin 0.2 AST 22 ALT 31 Alkaline Phosphatase 126 H Total Protein 7.7 Albumin 3.7 Current Medications Generic Name Dose Route Start Last Admin Trade Name Freq PRN Reason Stop Dose Admin Albuterol Sulfate 1 amp 06/22/17 10:04 06/22/17 12:17 Ventolin 0.083% Nebulizer Soln - NEB 1 amp Q4H PRN Administration SHORT OF BREATH/WHEEZING Albuterol/Ipratropium 1 amp 06/23/17 20:00 06/24/17 11:15 Duoneb - NEB 1 amp RQID DONTA Administration Atorvastatin Calcium 10 mg 06/22/17 22:00 06/23/17 21:55 Lipitor - PO 10 mg HS DONTA Administration Budesonide/Formoterol Fumarate 2 puff 06/22/17 12:00 06/24/17 09:20 Symbicort 160/4.5mcg - IH 2 puff BID DONTA Administration Carbamazepine 300 mg 06/22/17 22:00 06/24/17 09:23 Tegretol Xr - PO 300 mg BID DONTA Administration Furosemide 80 mg 06/23/17 10:00 06/24/17 09:22 Lasix Injection - IVPUSH 80 mg DAILY DONTA Administration Heparin Sodium (Porcine) 5,000 unit 06/22/17 10:00 06/24/17 09:21 Heparin - SQ 5,000 unit Q8H-IV DONTA Administration Hydroxychloroquine Sulfate 200 mg 06/22/17 10:45 06/24/17 09:24 Plaquenil - PO 200 mg BID DONTA Administration Azithromycin 250 mg/ Dextrose 250 mls @ 250 mls/hr 06/22/17 11:00 06/24/17 09 :20 IVPB 250 mls/hr DAILY DONTA Administration Insulin Aspart 1 vial 06/22/17 11:00 06/24/17 11:50 Novolog Vial Sliding Scale - SQ 8 units ACHS DONTA Administration Protocol Insulin Detemir 30 units 06/24/17 07:00 06/24/17 06:35 Levemir Vial SQ 30 units DAILY@0700 DONTA Administration Levothyroxine Sodium 50 mcg 06/22/17 16:00 06/24/17 06:34 Synthroid - PO 50 mcg DAILY@0700 DONTA Administration Losartan Potassium 50 mg 06/22/17 10:45 06/24/17 09:22 Cozaar - PO 50 mg DAILY DONTA Administration Methotrexate 12.5 mg 06/22/17 20:30 06/22/17 22:13 Mexate - PO 12.5 mg We@1000 DONTA Administration Methylprednisolone Sodium Succinate 40 mg 06/22/17 10:45 06/24/17 09:21 Solu-Medrol - IVPUSH 40 mg Q8H-IV DONTA Administration Montelukast Sodium 10 mg 06/22/17 22:00 06/23/17 21:56 Singulair - PO 10 mg HS DONTA Administration Pantoprazole Sodium 40 mg 06/22/17 10:45 06/24/17 09:22 Protonix - PO 40 mg DAILY DONTA Administration Pramipexole Dihydrochloride 0.5 mg 06/22/17 11:00 06/24/17 09:23 Mirapex - PO 0.5 mg BID DONTA Administration Sertraline HCl 100 mg 06/22/17 22:00 06/23/17 21:57 Zoloft - PO 100 mg HS DONTA Administration Topiramate 100 mg 06/22/17 11:00 06/24/17 09:24 Topamax - PO 100 mg BID DONTA Administration ASSESSMENT AND PLAN: This is a 62 year old woman with a history of COPD, chronic hypoxic respiratory failure, CAD, chronic diastolic heart failure, HTN, hyperlipidemia, lupus, DANY, type 2 DM, hypothyroidism, seizure disorder, morbid obesity who presented to the ED with shortness of breath, non-productive cough, and swelling of her legs x 4 days. 1. Acute exacerbation of COPD - Continue SoluMedrol, Symbicort, Singulair, DuoNeb - Spiriva held - Continue oxygen to maintain saturation >90% 2. Acute on chronic diastolic heart failure - Continue Lasix IV, Cozaar - I&O - Daily weight 3. Chronic hypoxic respiratory failure - Uses oxygen at home 4. CAD 5. HTN - Continue Cozaar, Lasix 6. Hyperlipidemia - Continue Lipitor 7. Seizure disorder - Continue Tegretol, Topamax 8. Lupus - Continue Plaquenil, Methotrexate 9. Type 2 DM - Continue Levemir, Novolog sliding scale - Metformin, glipizide, [place] held 10. Hypothyroidism - Continue Synthroid 11. Morbid obesity with BMI 49.2 12. DANY - Uses CPAP at night
[2017-06-24] MEDS ORDERED: INSULIN (NOVOLOG) ASPART 100 UNITS/ML 10ML VIAL ONE (21:15)
[2017-06-24] MEDS: ATORVASTATIN CA 10 MG TABLET (FP) PO SCH (21:22)
[2017-06-24] MEDS: MONTELUKAST NA 10 MG TABLET PO SCH (21:24)
[2017-06-24] MEDS: SERTRALINE HCL 50 MG TABLET (FP) PO SCH (21:24)
[2017-06-25] MEDS: HEPARIN NA (PORCINE) 5,000 UNITS/ML 1ML VIAL SQ SCH ×3 (01:00→18:15)
[2017-06-25] MEDS: methylPREDNISolone NA SUCC 40 MG/1 ML VIAL IVPUSH SCH ×3 (01:00→18:15)
[2017-06-25] MEDS: LEVOTHYROXINE NA 50 MCG TABLET (FP) PO SCH (06:33)
[2017-06-25] MEDS: INSULIN SLIDING SCALE (NOVOLOG) 1 VIAL SQ SCH ×4 (06:34→21:26)
[2017-06-25] MEDS: INSULIN (LEVEMIR) 100 UNITS/ML UNITS SQ SCH (06:34)
[2017-06-25 07:21] LABS: EOS % 0.1 % (0-4.5); HEMATOCRIT 33.8 % (32.4-45.2); HEMOGLOBIN 11.2 GM/dL (10.7-15.3); LYMPH % 18.4 % (8-40); MCH 31.5 pg (25.7-33.7); MCHC 33.2 g/dl (32.0-36.0); MEAN CELL VOLUME 95.1 fl (80-96); MEAN PLT VOLUME 8.6 fl (7.5-11.1); MONO % 3.1 % (3.8-10.2); NEUT % 77.4 % (42.8-82.8); PLATELET COUNT 390 K/MM3 (134-434); RBC 3.55 M/mm3 (3.60-5.2); RDW 14.7 % (11.6-15.6); WHITE BLOOD COUNT 7.6 K/mm3 (4.0-10.0)
[2017-06-25 07:44] LABS: ALBUMIN 3.4 g/dl (3.4-5.0); ANION GAP 12 (8-16); BLOOD UREA NITROGEN 24 mg/dL (7-18); CALCIUM 8.9 mg/dL (8.5-10.1); CHLORIDE 99 mmol/L (98-107); CO2 28 mmol/L (21-32); POTASSIUM 4.4 mmol/L (3.5-5.1); SODIUM 139 mmol/L (136-145)
[2017-06-25 07:49] LABS: ALK PHOS 124 U/L (45-117); BILIRUBIN,TOTAL 0.3 mg/dL (0.2-1.0); CREATININE 1.3 mg/dL (0.55-1.02); SGOT/AST 17 U/L (15-37); SGPT/ALT 32 U/L (12-78); TOT PROT 6.9 g/dl (6.4-8.2)
[2017-06-25 07:55] LABS: GLUCOSE,RANDOM 382 mg/dL (74-106)
[2017-06-25] MEDS: ALBUTEROL SO4 2.5/IPRATROPIUM 0.5 INH SOL 3 ML VIAL.NEB. NEB SCH ×4 (08:30→20:50)
[2017-06-25] MEDS ORDERED: PT OWN MED DRAWER 7, Y5N ONE ×3 (08:54→21:16)
--- NOTE | 2017-06-25 09:00 | PN ---
Progress Note (short form) - Note Progress Note: c/o non productive cough. was able to ambulate further with PT yesterday prior to becoming short of breath. states improvement after breathing treatments. states leg still feel significantly swollen. denies Cp, fver, chills, N/V/C/D Current Medications Generic Name Dose Route Start Last Admin Trade Name Freq PRN Reason Stop Dose Admin Albuterol Sulfate 1 amp 06/22/17 10:04 06/22/17 12:17 Ventolin 0.083% Nebulizer Soln - NEB 1 amp Q4H PRN Administration SHORT OF BREATH/WHEEZING Albuterol/Ipratropium 1 amp 06/23/17 20:00 06/25/17 08:30 Duoneb - NEB 1 amp RQID DONTA Administration Atorvastatin Calcium 10 mg 06/22/17 22:00 06/24/17 21:22 Lipitor - PO 10 mg HS DONTA Administration Budesonide/Formoterol Fumarate 2 puff 06/22/17 12:00 06/24/17 21:24 Symbicort 160/4.5mcg - IH 2 puff BID DONTA Administration Carbamazepine 300 mg 06/22/17 22:00 06/24/17 21:24 Tegretol Xr - PO 300 mg BID DONTA Administration Furosemide 80 mg 06/23/17 10:00 06/24/17 09:22 Lasix Injection - IVPUSH 80 mg DAILY DONTA Administration Heparin Sodium (Porcine) 5,000 unit 06/22/17 10:00 06/25/17 01:00 Heparin - SQ 5,000 unit Q8H-IV DONTA Administration Hydroxychloroquine Sulfate 200 mg 06/22/17 10:45 06/24/17 21:23 Plaquenil - PO 200 mg BID DONTA Administration Azithromycin 250 mg/ Dextrose 250 mls @ 250 mls/hr 06/22/17 11:00 06/24/17 09 :20 IVPB 250 mls/hr DAILY DONTA Administration Insulin Aspart 1 vial 06/22/17 11:00 06/25/17 06:34 Novolog Vial Sliding Scale - SQ 10 units ACHS DONTA Administration Protocol Insulin Detemir 30 units 06/24/17 07:00 06/25/17 06:34 Levemir Vial SQ 30 units DAILY@0700 DONTA Administration Levothyroxine Sodium 50 mcg 06/22/17 16:00 06/25/17 06:33 Synthroid - PO 50 mcg DAILY@0700 DONTA Administration Losartan Potassium 50 mg 06/22/17 10:45 06/24/17 09:22 Cozaar - PO 50 mg DAILY DONTA Administration Methotrexate 12.5 mg 06/22/17 20:30 06/22/17 22:13 Mexate - PO 12.5 mg We@1000 DONTA Administration Methylprednisolone Sodium Succinate 40 mg 06/22/17 10:45 06/25/17 01:00 Solu-Medrol - IVPUSH 40 mg Q8H-IV DONTA Administration Montelukast Sodium 10 mg 06/22/17 22:00 06/24/17 21:24 Singulair - PO 10 mg HS DONTA Administration Pantoprazole Sodium 40 mg 06/22/17 10:45 06/24/17 09:22 Protonix - PO 40 mg DAILY DONTA Administration Pramipexole Dihydrochloride 0.5 mg 06/22/17 11:00 06/24/17 21:23 Mirapex - PO 0.5 mg BID DONTA Administration Sertraline HCl 100 mg 06/22/17 22:00 06/24/17 21:24 Zoloft - PO 100 mg HS DONTA Administration Topiramate 100 mg 06/22/17 11:00 06/24/17 21:24 Topamax - PO 100 mg BID DONTA Administration Last Vital Signs Temp Pulse Resp BP Pulse Ox 97.9 F 75 20 133/70 99 06/25/17 01:00 06/25/17 01:00 06/25/17 01:00 06/25/17 01:00 06/24/17 21:39 Intake & Output 06/22/17 06/23/17 06/24/17 06/25/17 23:59 23:59 23:59 23:59 Intake Total 620 990 380 Balance 620 990 380 Weight 262 lb 269 lb 3.2 oz 268 lb 12.8 oz 264 lb 3.2 oz General NAD CV S1 S2 RRR no murmur/rub/gallop Lungs CTA poor inspiratory effort Abdomen soft NT/ND Extremities trace pitting edema CBCD WBC 7.6 K/mm3 (4.0-10.0) 06/25/17 05:46 RBC 3.55 M/mm3 (3.60-5.2) L 06/25/17 05:46 Hgb 11.2 GM/dL (10.7-15.3) 06/25/17 05:46 Hct 33.8 % (32.4-45.2) 06/25/17 05:46 MCV 95.1 fl (80-96) 06/25/17 05:46 MCHC 33.2 g/dl (32.0-36.0) 06/25/17 05:46 RDW 14.7 % (11.6-15.6) 06/25/17 05:46 Plt Count 390 K/MM3 (134-434) 06/25/17 05:46 MPV 8.6 fl (7.5-11.1) 06/25/17 05:46 CMP Sodium 139 mmol/L (136-145) 06/25/17 05:46 Potassium 4.4 mmol/L (3.5-5.1) 06/25/17 05:46 Chloride 99 mmol/L (98-107) 06/25/17 05:46 Carbon Dioxide 28 mmol/L (21-32) 06/25/17 05:46 Anion Gap 12 (8-16) 06/25/17 05:46 BUN 24 mg/dL (7-18) H 06/25/17 05:46 Creatinine 1.3 mg/dL (0.55-1.02) H 06/25/17 05:46 Creat Clearance w eGFR 41.64 (>60) 06/25/17 05:46 Calcium 8.9 mg/dL (8.5-10.1) 06/25/17 05:46 Total Bilirubin 0.3 mg/dL (0.2-1.0) D 06/25/17 05:46 AST 17 U/L (15-37) 06/25/17 05:46 ALT 32 U/L (12-78) 06/25/17 05:46 Alkaline Phosphatase 124 U/L (45-117) H 06/25/17 05:46 Total Protein 6.9 g/dl (6.4-8.2) 06/25/17 05:46 Albumin 3.4 g/dl (3.4-5.0) 06/25/17 05:46 Assessment and plan 62 year old woman with a history of COPD, chronic hypoxic respiratory failure, CAD, chronic diastolic heart failure, HTN, hyperlipidemia, lupus, DANY, type 2 DM , hypothyroidism, seizure disorder, morbid obesity who presented to the ED with shortness of breath, non-productive cough, and swelling of her legs x 4 days. 1. Acute exacerbation of COPD- clinically improved but continues to have cough. could be from COPD vs volume overload. saturating 99% on 3L NC. does not feet comfortable decreasing steroids today. explained side effects assoc. with steroid use. agree to monitor another day and decrease possibly tomorrow. states she has been on chronic steroids for 2 years and was on 10mg for several weeks prior to hospitalization. cont medrol 40mg Q8H, Azithro day 4, nebs RTC, singulair. on home O2 3L NC and cpap HS. pulmonary on board. 2. Acute on chronic diastolic heart failure- improved however cough could be related to volume. will cont lasix IV today. consider switching to po tomorrow. cont daily weights. cardio on board. 3. Chronic hypoxic respiratory failure/DANY- on home O2 requirements. cpap HS. 4. CAD 5. HTN- Continue Cozaar, Lasix 6. Hyperlipidemia- Continue Lipitor 7. Seizure disorder- Continue Tegretol, Topamax 8. Lupus- Continue Plaquenil, Methotrexate 9. Type 2 DM- uncontrolled. expected to improve as steroids decrease. cont levemir at increased dosing. and oral hypoglycemics. 10. Hypothyroidism- Continue Synthroid 11. Morbid obesity with BMI 49.2 12. DVT ppx- hep sq Visit type - Emergency Visit Emergency Visit: Yes ED Registration Date: 06/22/17 Care time: The patient presented to the Emergency Department on the above date and was hospitalized for further evaluation of their emergent condition. - New Patient This patient is new to me today: Yes Date on this admission: 06/25/17 - Critical Care Critical Care patient: No - Discharge Referral Referred to [facility] Med P.C.: Yes Physician Referral: Morgan Hyde MD (Pulm)
[2017-06-25] MEDS: FUROSEMIDE 40 MG/4 ML INJECTABLE VIAL IVPUSH SCH (09:06)
[2017-06-25] MEDS: AZITHROMYCIN IVPB 250 MG in DEXTROSE 5%-WATER - 250 ML IVPB SCH (09:06)
[2017-06-25] MEDS: PANTOPRAZOLE 40 MG TABLET (FP) PO SCH (09:06)
[2017-06-25] MEDS: LOSARTAN POTASSIUM 50 MG TABLET (FP) PO SCH (09:06)
[2017-06-25] MEDS: TOPIRAMATE 100 MG TABLET PO SCH ×2 (09:07→21:25)
[2017-06-25] MEDS: HYDROXYCHLOROQUINE SO4 200 MG TABLET (FP) PO SCH ×2 (09:07→21:24)
[2017-06-25] MEDS: PRAMIPEXOLE DIHYDROCHLORIDE 0.5 MG TABLET PO SCH ×2 (09:07→21:24)
[2017-06-25] MEDS: BUDESONIDE/FORMETEROL FUMARATE 160/4.5 mcg INHALER IH SCH ×2 (09:09→21:26)
--- NOTE | 2017-06-25 09:21 | PN ---
Progress Note, Physician Chief Complaint: sob History of Present Illness: still sob--a little better still cough, wheeze leg swelling much better cp when coughing or deep breaths - Current Medication List Current Medications: Active Medications Albuterol Sulfate (Ventolin 0.083% Nebulizer Soln -) 1 amp NEB Q4H PRN PRN Reason: SHORT OF BREATH/WHEEZING Last Admin: 06/22/17 12:17 Dose: 1 amp Albuterol/Ipratropium (Duoneb -) 1 amp NEB RQID [facility] Last Admin: 06/25/17 08:30 Dose: 1 amp Atorvastatin Calcium (Lipitor -) 10 mg PO HS [facility] Last Admin: 06/24/17 21:22 Dose: 10 mg Budesonide/Formoterol Fumarate (Symbicort 160/4.5mcg -) 2 puff IH BID [facility] Last Admin: 06/25/17 09:09 Dose: 2 puff Carbamazepine (Tegretol Xr -) 300 mg PO BID [facility] Last Admin: 06/25/17 09:08 Dose: 300 mg Furosemide (Lasix Injection -) 80 mg IVPUSH DAILY [facility] Last Admin: 06/25/17 09:06 Dose: 80 mg Heparin Sodium (Porcine) (Heparin -) 5,000 unit SQ Q8H-IV [facility] Last Admin: 06/25/17 09:06 Dose: 5,000 unit Hydroxychloroquine Sulfate (Plaquenil -) 200 mg PO BID [facility] Last Admin: 06/25/17 09:07 Dose: 200 mg Azithromycin 250 mg/ Dextrose 250 mls @ 250 mls/hr IVPB DAILY [facility] Last Admin: 06/25/17 09:06 Dose: 250 mls/hr Insulin Aspart (Novolog Vial Sliding Scale -) 1 vial SQ ACHS [facility] PRN Reason: Protocol Last Admin: 06/25/17 06:34 Dose: 10 units Insulin Detemir (Levemir Vial) 30 units SQ DAILY@0700 [facility] Last Admin: 06/25/17 06:34 Dose: 30 units Levothyroxine Sodium (Synthroid -) 50 mcg PO DAILY@0700 [facility] Last Admin: 06/25/17 06:33 Dose: 50 mcg Losartan Potassium (Cozaar -) 50 mg PO DAILY [facility] Last Admin: 06/25/17 09:06 Dose: 50 mg Methotrexate (Mexate -) 12.5 mg PO We@1000 [facility] Last Admin: 06/22/17 22:13 Dose: 12.5 mg Methylprednisolone Sodium Succinate (Solu-Medrol -) 40 mg IVPUSH Q8H-IV [facility] Last Admin: 06/25/17 09:06 Dose: 40 mg Montelukast Sodium (Singulair -) 10 mg PO HS [facility] Last Admin: 06/24/17 21:24 Dose: 10 mg Pantoprazole Sodium (Protonix -) 40 mg PO DAILY [facility] Last Admin: 06/25/17 09:06 Dose: 40 mg Pramipexole Dihydrochloride (Mirapex -) 0.5 mg PO BID [facility] Last Admin: 06/25/17 09:07 Dose: 0.5 mg Sertraline HCl (Zoloft -) 100 mg PO [facility] Last Admin: 06/24/17 21:24 Dose: 100 mg Topiramate (Topamax -) 100 mg PO BID [facility] Last Admin: 06/25/17 09:07 Dose: 100 mg - Objective Vital Signs: Vital Signs Temperature 97.9 F 06/25/17 01:00 Pulse Rate 75 06/25/17 01:00 Respiratory Rate 20 06/25/17 01:00 Blood Pressure 133/70 06/25/17 01:00 O2 Sat by Pulse Oximetry (%) 99 06/24/17 21:39 Constitutional: Yes: No Distress, Calm, Obese Cardiovascular: Yes: Regular Rate and Rhythm (decr intensity), S1, S2. No: Gallop, Murmur Respiratory: Yes: Regular, CTA Bilaterally (decr intensity diffusely). No: Accessory Muscle Use, Rales, Wheezes Extremities: No: Cold Edema: No Neurological: Yes: Alert, Oriented Psychiatric: No: Agitated Labs: CBC, BMP 06/25/17 05:46 06/25/17 05:46 Assessment/Plan [facility] 08/30 (monte): mild luminal irregularities LCX; LVEDP 25 Nuclear Stress Test done 07/09/16: nl ecg, mild anteroseptal ischemia, nl lvef 79 % Echo 03/02: normal LV systolic function; nl RV; mild MR/TR; nl RVSP. echo 03/2017: nl lv/rv, no sig valve path, nl rvsp CXR: no chf ECG: NSR, normal axis/intervals. no path q's, no ST-Ts tele: NSR Assessment/Plan acute exacerbation asthma/copd: -has had frequent asthma exacerbations req steroids recently, now again same -tx per pulm -has had incr fluid retention/edema as outpt on prednisone recently--lasix dose incr'd to 80 qd (of note, this did not help her ongoing sob at that time, which wa likely all sec to airways dz) atypical chest pain -CHRONIC. SX'S ARE M-SKEL (PLEURITIC, WORSE WITH COUGHING) WITH NORMAL COR ANGIOGRAM (PRIOR MPI FINDINGS HIGHLY LIKELY FALSE POSITIVE DUE TO SOFT TISSUE ATTENUATION) -SIMILAR SX'S HERE, CE's Negx3. NO FURTHER CARDIAC W/U INDICATED AT THIS TIME chronic diastolic congestive heart failure -lasix recently incr'd for LE edema sec to steroids as outpt -agree with IV lasix while here with copd exacerbation, on steroids--pt notes wt and edema both improving -monitor labs trend, low threshold to cut back lasix/change to po if bun/creat or bicarb uptrending Essential hypertension -well controlled -cont home meds Pure hypercholesterolemia -cont home statin NO INDICATION FOR CONTINUE TELEMETRY MONITORING
[2017-06-25 16:31] VITALS: BMI 49.0
[2017-06-25] MEDS: ATORVASTATIN CA 10 MG TABLET (FP) PO SCH (21:23)
[2017-06-25] MEDS: SERTRALINE HCL 50 MG TABLET (FP) PO SCH (21:23)
[2017-06-25] MEDS: MONTELUKAST NA 10 MG TABLET PO SCH (21:23)
[2017-06-25] MEDS ORDERED: INSULIN (NOVOLOG) ASPART 100 UNITS/ML 10ML VIAL ONE (21:34)
[2017-06-26] MEDS: methylPREDNISolone NA SUCC 40 MG/1 ML VIAL IVPUSH SCH ×2 (01:13→09:34)
[2017-06-26] MEDS: HEPARIN NA (PORCINE) 5,000 UNITS/ML 1ML VIAL SQ SCH ×3 (01:13→17:45)
[2017-06-26] MEDS: INSULIN (LEVEMIR) 100 UNITS/ML UNITS SQ SCH (06:25)
[2017-06-26] MEDS: INSULIN SLIDING SCALE (NOVOLOG) 1 VIAL SQ SCH ×4 (06:26→21:36)
[2017-06-26] MEDS: LEVOTHYROXINE NA 50 MCG TABLET (FP) PO SCH (06:26)
[2017-06-26] MEDS: ALBUTEROL SO4 2.5/IPRATROPIUM 0.5 INH SOL 3 ML VIAL.NEB. NEB SCH ×4 (07:30→20:00)
[2017-06-26 07:43] LABS: ANION GAP 10 (8-16); BLOOD UREA NITROGEN 24 mg/dL (7-18); CALCIUM 9.4 mg/dL (8.5-10.1); CHLORIDE 97 mmol/L (98-107); CO2 31 mmol/L (21-32); CREATININE 1.4 mg/dL (0.55-1.02); GLUCOSE,RANDOM 278 mg/dL (74-106); POTASSIUM 4.6 mmol/L (3.5-5.1); SODIUM 138 mmol/L (136-145)
[2017-06-26] MEDS: FUROSEMIDE 40 MG/4 ML INJECTABLE VIAL IVPUSH SCH (09:33)
[2017-06-26] MEDS: LOSARTAN POTASSIUM 50 MG TABLET (FP) PO SCH (09:33)
[2017-06-26] MEDS: PRAMIPEXOLE DIHYDROCHLORIDE 0.5 MG TABLET PO SCH ×2 (09:33→21:34)
[2017-06-26] MEDS: PANTOPRAZOLE 40 MG TABLET (FP) PO SCH (09:34)
[2017-06-26] MEDS: HYDROXYCHLOROQUINE SO4 200 MG TABLET (FP) PO SCH ×2 (09:34→21:34)
[2017-06-26] MEDS: BUDESONIDE/FORMETEROL FUMARATE 160/4.5 mcg INHALER IH SCH ×2 (09:35→21:44)
[2017-06-26] MEDS: TOPIRAMATE 100 MG TABLET PO SCH ×2 (09:36→21:34)
[2017-06-26] MEDS: AZITHROMYCIN IVPB 250 MG in DEXTROSE 5%-WATER - 250 ML IVPB SCH (09:36)
--- NOTE | 2017-06-26 09:53 | PN ---
Progress Note, Physician Chief Complaint: sob History of Present Illness: sob and cp about the same as yesterday. no leg swelling no syncope - Current Medication List Current Medications: Active Medications Albuterol Sulfate (Ventolin 0.083% Nebulizer Soln -) 1 amp NEB Q4H PRN PRN Reason: SHORT OF BREATH/WHEEZING Last Admin: 06/22/17 12:17 Dose: 1 amp Albuterol/Ipratropium (Duoneb -) 1 amp NEB RQID [facility] Last Admin: 06/25/17 20:50 Dose: 1 amp Atorvastatin Calcium (Lipitor -) 10 mg PO HS [facility] Last Admin: 06/25/17 21:23 Dose: 10 mg Budesonide/Formoterol Fumarate (Symbicort 160/4.5mcg -) 2 puff IH BID [facility] Last Admin: 06/26/17 09:35 Dose: 2 puff Carbamazepine (Tegretol Xr -) 300 mg PO BID [facility] Last Admin: 06/26/17 09:35 Dose: 300 mg Furosemide (Lasix Injection -) 80 mg IVPUSH DAILY [facility] Last Admin: 06/26/17 09:33 Dose: 80 mg Heparin Sodium (Porcine) (Heparin -) 5,000 unit SQ Q8H-IV [facility] Last Admin: 06/26/17 09:33 Dose: 5,000 unit Hydroxychloroquine Sulfate (Plaquenil -) 200 mg PO BID [facility] Last Admin: 06/26/17 09:34 Dose: 200 mg Azithromycin 250 mg/ Dextrose 250 mls @ 250 mls/hr IVPB DAILY [facility] Last Admin: 06/26/17 09:36 Dose: 250 mls/hr Insulin Aspart (Novolog Vial Sliding Scale -) 1 vial SQ ACHS [facility] PRN Reason: Protocol Last Admin: 06/26/17 06:26 Dose: 6 units Insulin Detemir (Levemir Vial) 30 units SQ DAILY@0700 [facility] Last Admin: 06/26/17 06:25 Dose: 30 units Levothyroxine Sodium (Synthroid -) 50 mcg PO DAILY@0700 [facility] Last Admin: 06/26/17 06:26 Dose: 50 mcg Losartan Potassium (Cozaar -) 50 mg PO DAILY [facility] Last Admin: 06/26/17 09:33 Dose: 50 mg Methotrexate (Mexate -) 12.5 mg PO We@1000 [facility] Last Admin: 06/22/17 22:13 Dose: 12.5 mg Methylprednisolone Sodium Succinate (Solu-Medrol -) 40 mg IVPUSH Q8H-IV [facility] Last Admin: 06/26/17 09:34 Dose: 40 mg Montelukast Sodium (Singulair -) 10 mg PO HS [facility] Last Admin: 06/25/17 21:23 Dose: 10 mg Pantoprazole Sodium (Protonix -) 40 mg PO DAILY [facility] Last Admin: 06/26/17 09:34 Dose: 40 mg Pramipexole Dihydrochloride (Mirapex -) 0.5 mg PO BID [facility] Last Admin: 06/26/17 09:33 Dose: 0.5 mg Sertraline HCl (Zoloft -) 100 mg PO HS [facility] Last Admin: 06/25/17 21:23 Dose: 100 mg Topiramate (Topamax -) 100 mg PO BID [facility] Last Admin: 06/26/17 09:36 Dose: 100 mg - Objective Vital Signs: Vital Signs Temperature 98 F 06/25/17 22:00 Pulse Rate 67 06/26/17 06:39 Respiratory Rate 18 06/26/17 06:39 Blood Pressure 161/78 06/26/17 06:39 O2 Sat by Pulse Oximetry (%) 96 06/25/17 22:00 Constitutional: Yes: No Distress, Calm, Obese Cardiovascular: Yes: Regular Rate and Rhythm (decr intensity (copd)), S1, S2. No: Gallop, Murmur Respiratory: Yes: Regular, CTA Bilaterally (decr diffusely (copd)). No: Accessory Muscle Use, Rales, Wheezes Extremities: No: Cold Edema: No Neurological: Yes: Alert, Oriented Psychiatric: No: Agitated Labs: CBC, BMP 06/25/17 05:46 06/26/17 05:44 Assessment/Plan [facility] 08/30 (monte): mild luminal irregularities LCX; LVEDP 25 Nuclear Stress Test done 07/09/16: nl ecg, mild anteroseptal ischemia, nl lvef 79 % Echo 03/02: normal LV systolic function; nl RV; mild MR/TR; nl RVSP. echo 03/2017: nl lv/rv, no sig valve path, nl rvsp CXR: no chf ECG: NSR, normal axis/intervals. no path q's, no ST-Ts tele: NSR Assessment/Plan acute exacerbation asthma/copd: -has had frequent asthma exacerbations req steroids recently, now again same -tx per pulm -has had incr fluid retention/edema as outpt on prednisone recently--lasix dose incr'd to 80 qd (of note, this did not help her ongoing sob at that time, which wa likely all sec to airways dz) atypical chest pain -CHRONIC. SX'S ARE M-SKEL (PLEURITIC, WORSE WITH COUGHING) WITH NORMAL COR ANGIOGRAM (PRIOR MPI FINDINGS HIGHLY LIKELY FALSE POSITIVE DUE TO SOFT TISSUE ATTENUATION) -SIMILAR SX'S HERE, CE's Negx3. NO FURTHER CARDIAC W/U INDICATED AT THIS TIME chronic diastolic congestive heart failure -lasix recently incr'd for LE edema sec to steroids as outpt -agree with IV lasix while here with copd exacerbation, on steroids--pt notes wt and edema both improving -06/26: creat and bicarb slightly up today. monitor trend tomorrow--anticipate will cut back lasix (and ? change to PO) if trend continues Essential hypertension -well controlled for the most part here. at times high ? steroids effect -cont home meds, monitor bp trend Pure hypercholesterolemia -cont home statin NO INDICATION FOR CONTINUE TELEMETRY MONITORING
--- NOTE | 2017-06-26 14:22 | PN ---
Physical Exam: SUBJECTIVE: Patient seen and examined. She says she still feels SOB. OBJECTIVE: Vital Signs Period Temp Pulse Resp BP Sys/Oconnell Pulse Ox Last 24 Hr 98 F-98.8 F 67-91 18-21 116-161/57-78 96-98 GENERAL: The patient is awake, alert, and fully oriented, in no acute distress. LUNGS: Breath sounds diminished. HEART: Regular rate and rhythm, S1, S2 without murmur, rub or gallop. ABDOMEN: Obese, soft, nontender, nondistended, normoactive bowel sounds, no guarding, no rebound, no hepatosplenomegaly, no masses. EXTREMITIES: 2+ pulses, warm, well-perfused, no edema. Laboratory Results - last 24 hr 06/25/17 06/25/17 06/26/17 17:55 21:21 05:44 Sodium 138 Potassium 4.6 Chloride 97 L Carbon Dioxide 31 Anion Gap 10 BUN 24 H Creatinine 1.4 H POC Glucometer 221 243 Random Glucose 278 H Calcium 9.4 06/26/17 06/26/17 05:46 11:43 Sodium Potassium Chloride Carbon Dioxide Anion Gap BUN Creatinine POC Glucometer 289 266 Random Glucose Calcium Active Medications Generic Name Dose Route Start Last Admin Trade Name Freq PRN Reason Stop Dose Admin Albuterol Sulfate 1 amp 06/22/17 10:04 06/22/17 12:17 Ventolin 0.083% Nebulizer Soln - NEB 1 amp Q4H PRN Administration SHORT OF BREATH/WHEEZING Albuterol/Ipratropium 1 amp 06/23/17 20:00 06/26/17 11:42 Duoneb - NEB 1 amp RQID DONTA Administration Atorvastatin Calcium 10 mg 06/22/17 22:00 06/25/17 21:23 Lipitor - PO 10 mg HS DONTA Administration Budesonide/Formoterol Fumarate 2 puff 06/22/17 12:00 06/26/17 09:35 Symbicort 160/4.5mcg - IH 2 puff BID DONTA Administration Carbamazepine 300 mg 06/22/17 22:00 06/26/17 09:35 Tegretol Xr - PO 300 mg BID DONTA Administration Furosemide 80 mg 06/23/17 10:00 06/26/17 09:33 Lasix Injection - IVPUSH 80 mg DAILY DONTA Administration Heparin Sodium (Porcine) 5,000 unit 06/22/17 10:00 06/26/17 09:33 Heparin - SQ 5,000 unit Q8H-IV DONTA Administration Hydroxychloroquine Sulfate 200 mg 06/22/17 10:45 06/26/17 09:34 Plaquenil - PO 200 mg BID DONTA Administration Azithromycin 250 mg/ Dextrose 250 mls @ 250 mls/hr 06/22/17 11:00 06/26/17 09 :36 IVPB 250 mls/hr DAILY DONTA Administration Insulin Aspart 1 vial 06/22/17 11:00 06/26/17 11:44 Novolog Vial Sliding Scale - SQ 6 units ACHS DONTA Administration Protocol Insulin Detemir 30 units 06/24/17 07:00 06/26/17 06:25 Levemir Vial SQ 30 units DAILY@0700 DONTA Administration Levothyroxine Sodium 50 mcg 06/22/17 16:00 06/26/17 06:26 Synthroid - PO 50 mcg DAILY@0700 DONTA Administration Losartan Potassium 50 mg 06/22/17 10:45 06/26/17 09:33 Cozaar - PO 50 mg DAILY DONTA Administration Methotrexate 12.5 mg 06/22/17 20:30 06/22/17 22:13 Mexate - PO 12.5 mg We@1000 DONTA Administration Methylprednisolone Sodium Succinate 40 mg 06/22/17 10:45 06/26/17 09:34 Solu-Medrol - IVPUSH 40 mg Q8H-IV DONTA Administration Montelukast Sodium 10 mg 06/22/17 22:00 06/25/17 21:23 Singulair - PO 10 mg HS DONTA Administration Pantoprazole Sodium 40 mg 06/22/17 10:45 06/26/17 09:34 Protonix - PO 40 mg DAILY DONTA Administration Pramipexole Dihydrochloride 0.5 mg 06/22/17 11:00 06/26/17 09:33 Mirapex - PO 0.5 mg BID DONTA Administration Sertraline HCl 100 mg 06/22/17 22:00 06/25/17 21:23 Zoloft - PO 100 mg HS DONTA Administration Topiramate 100 mg 06/22/17 11:00 06/26/17 09:36 Topamax - PO 100 mg BID DONTA Administration ASSESSMENT/PLAN: This is a 62 year old woman with a history of COPD, chronic hypoxic respiratory failure, CAD, chronic diastolic heart failure, HTN, hyperlipidemia, lupus, DANY, type 2 DM, hypothyroidism, seizure disorder, morbid obesity who presented to the ED with shortness of breath, non-productive cough, and swelling of her legs x 4 days. 1. Acute exacerbation of COPD - Taper SoluMedrol - Continue Symbicort, Singulair, DuoNeb - Completed Zithromax x 5 days - Spiriva held - Continue oxygen to maintain saturation >90% 2. Acute on chronic diastolic heart failure - Continue Lasix IV, Cozaar - I&O - Daily weight 3. Chronic hypoxic respiratory failure secondary to COPD, CHF, DANY - Continue oxygen, CPAP at night 4. CAD 5. HTN - Continue Cozaar, Lasix 6. Hyperlipidemia - Continue Lipitor 7. Seizure disorder - Continue Tegretol, Topamax 8. Lupus - Continue Plaquenil, Methotrexate 9. Type 2 DM - Continue Levemir, Novolog sliding scale - Metformin, glipizide, Byetta held 10. Hypothyroidism - Continue Synthroid 11. Morbid obesity with BMI 48.7 12. DANY - Uses CPAP at night Visit type - Emergency Visit Emergency Visit: Yes ED Registration Date: 06/22/17 Care time: The patient presented to the Emergency Department on the above date and was hospitalized for further evaluation of their emergent condition. - New Patient This patient is new to me today: No - Critical Care Critical Care patient: No - Discharge Referral Referred to [facility] Med P.C.: No
[2017-06-26] MEDS ORDERED: methylPREDNISolone NA SUCC 40 MG/1 ML VIAL IVPUSH SCH ×2 (14:30→21:00)
[2017-06-26] MEDS ORDERED: PT OWN MED DRAWER 7, Y5N ONE (21:30)
[2017-06-26] MEDS: ATORVASTATIN CA 10 MG TABLET (FP) PO SCH (21:34)
[2017-06-26] MEDS: MONTELUKAST NA 10 MG TABLET PO SCH (21:34)
[2017-06-26] MEDS: SERTRALINE HCL 50 MG TABLET (FP) PO SCH (21:34)
[2017-06-27] MEDS: HEPARIN NA (PORCINE) 5,000 UNITS/ML 1ML VIAL SQ SCH ×2 (02:59→09:14)
[2017-06-27] MEDS: INSULIN (LEVEMIR) 100 UNITS/ML UNITS SQ SCH (06:25)
[2017-06-27] MEDS: INSULIN SLIDING SCALE (NOVOLOG) 1 VIAL SQ SCH ×2 (06:26→11:58)
[2017-06-27] MEDS: LEVOTHYROXINE NA 50 MCG TABLET (FP) PO SCH (06:28)
[2017-06-27 07:01] LABS: ANION GAP 9 (8-16); BLOOD UREA NITROGEN 30 mg/dL (7-18); CALCIUM 9.6 mg/dL (8.5-10.1); CHLORIDE 97 mmol/L (98-107); CO2 31 mmol/L (21-32); CREATININE 1.4 mg/dL (0.55-1.02); GLUCOSE,RANDOM 264 mg/dL (74-106); POTASSIUM 4.3 mmol/L (3.5-5.1); SODIUM 137 mmol/L (136-145)
[2017-06-27] MEDS: ALBUTEROL SO4 2.5/IPRATROPIUM 0.5 INH SOL 3 ML VIAL.NEB. NEB SCH ×2 (07:42→13:00)
--- NOTE | 2017-06-27 07:57 | PN ---
Physical Exam: SUBJECTIVE: Patient seen and examined OBJECTIVE: Vital Signs Period Temp Pulse Resp BP Sys/Oconnell Pulse Ox Last 24 Hr 98 F-98.8 F 62-89 18-18 98-164/36-87 98-98 GENERAL: The patient is awake, alert, and fully oriented, in no acute distress. HEAD: Normal with no signs of trauma. EYES: PERRL, extraocular movements intact, sclera anicteric, conjunctiva clear. No ptosis. ENT: Ears normal, nares patent, oropharynx clear without exudates, moist mucous membranes. NECK: Trachea midline, full range of motion, supple. LUNGS: Breath sounds equal, clear to auscultation bilaterally, no wheezes, no crackles, no accessory muscle use. HEART: Regular rate and rhythm, S1, S2 without murmur, rub or gallop. ABDOMEN: Soft, nontender, nondistended, normoactive bowel sounds, no guarding, no rebound, no hepatosplenomegaly, no masses. EXTREMITIES: 2+ pulses, warm, well-perfused, no edema. NEUROLOGICAL: Cranial nerves II through XII grossly intact. Normal speech, gait not observed. PSYCH: Normal mood, normal affect. SKIN: Warm, dry, normal turgor, no rashes or lesions noted Laboratory Results - last 24 hr 06/26/17 06/26/17 06/26/17 11:43 16:58 21:23 Sodium Potassium Chloride Carbon Dioxide Anion Gap BUN Creatinine POC Glucometer 266 224 248 Random Glucose Calcium 06/27/17 06/27/17 05:48 06:22 Sodium 137 Potassium 4.3 Chloride 97 L Carbon Dioxide 31 Anion Gap 9 BUN 30 H Creatinine 1.4 H POC Glucometer 246 Random Glucose 264 H Calcium 9.6 Active Medications Generic Name Dose Route Start Last Admin Trade Name Freq PRN Reason Stop Dose Admin Albuterol Sulfate 1 amp 06/22/17 10:04 06/22/17 12:17 Ventolin 0.083% Nebulizer Soln - NEB 1 amp Q4H PRN Administration SHORT OF BREATH/WHEEZING Albuterol/Ipratropium 1 amp 06/23/17 20:00 06/27/17 07:42 Duoneb - NEB 1 amp RQID DONTA Administration Atorvastatin Calcium 10 mg 06/22/17 22:00 06/26/17 21:34 Lipitor - PO 10 mg HS DONTA Administration Budesonide/Formoterol Fumarate 2 puff 06/22/17 12:00 06/26/17 21:44 Symbicort 160/4.5mcg - IH 2 puff BID DONTA Administration Carbamazepine 300 mg 06/22/17 22:00 06/26/17 21:35 Tegretol Xr - PO 300 mg BID DONTA Administration Furosemide 80 mg 06/23/17 10:00 06/26/17 09:33 Lasix Injection - IVPUSH 80 mg DAILY DONTA Administration Heparin Sodium (Porcine) 5,000 unit 06/22/17 10:00 06/27/17 02:59 Heparin - SQ 5,000 unit Q8H-IV DONTA Administration Hydroxychloroquine Sulfate 200 mg 06/22/17 10:45 06/26/17 21:34 Plaquenil - PO 200 mg BID DONTA Administration Insulin Aspart 1 vial 06/22/17 11:00 06/27/17 06:26 Novolog Vial Sliding Scale - SQ 4 units ACHS DONTA Administration Protocol Insulin Detemir 30 units 06/24/17 07:00 06/27/17 06:25 Levemir Vial SQ 30 units DAILY@0700 DONTA Administration Levothyroxine Sodium 50 mcg 06/22/17 16:00 06/27/17 06:28 Synthroid - PO 50 mcg DAILY@0700 DONTA Administration Losartan Potassium 50 mg 06/22/17 10:45 06/26/17 09:33 Cozaar - PO 50 mg DAILY DONTA Administration Methotrexate 12.5 mg 06/22/17 20:30 06/22/17 22:13 Mexate - PO 12.5 mg We@1000 DONTA Administration Methylprednisolone Sodium Succinate 40 mg 06/26/17 21:00 06/26/17 21:34 Solu-Medrol - IVPUSH 40 mg Q12H DONTA Administration Montelukast Sodium 10 mg 06/22/17 22:00 06/26/17 21:34 Singulair - PO 10 mg HS DONTA Administration Pantoprazole Sodium 40 mg 06/22/17 10:45 06/26/17 09:34 Protonix - PO 40 mg DAILY DONTA Administration Pramipexole Dihydrochloride 0.5 mg 06/22/17 11:00 06/26/17 21:34 Mirapex - PO 0.5 mg BID DONTA Administration Sertraline HCl 100 mg 06/22/17 22:00 06/26/17 21:34 Zoloft - PO 100 mg HS DONTA Administration Topiramate 100 mg 06/22/17 11:00 06/26/17 21:34 Topamax - PO 100 mg BID DONTA Administration ASSESSMENT/PLAN:
[2017-06-27] MEDS: HYDROXYCHLOROQUINE SO4 200 MG TABLET (FP) PO SCH (09:15)
[2017-06-27] MEDS: PRAMIPEXOLE DIHYDROCHLORIDE 0.5 MG TABLET PO SCH (09:15)
[2017-06-27] MEDS: TOPIRAMATE 100 MG TABLET PO SCH (09:16)
[2017-06-27] MEDS: PANTOPRAZOLE 40 MG TABLET (FP) PO SCH (09:16)
[2017-06-27] MEDS: BUDESONIDE/FORMETEROL FUMARATE 160/4.5 mcg INHALER IH SCH (09:20)
[2017-06-27] MEDS: LOSARTAN POTASSIUM 50 MG TABLET (FP) PO SCH (09:20)
[2017-06-27] MEDS ORDERED: predniSONE 20 MG TABLET (UD) PO SCH (10:00)
[2017-06-27 10:18] VITALS: BP 137/60; PULSE 82; TEMP 82
--- NOTE | 2017-06-27 10:18 | DS ---
Physical Exam: SUBJECTIVE: Patient seen and examined. States feels better, breathing is better. OBJECTIVE: Vital Signs Period Temp Pulse Resp BP Sys/Oconnell Pulse Ox Last 24 Hr 98 F-98.8 F 62-89 18-18 98-164/36-87 97-98 PHYSICAL EXAM GENERAL: The patient is awake, alert, and fully oriented, in no acute distress. LUNGS: Breath sounds equal, clear to auscultation bilaterally, no wheezes, no crackles, no accessory muscle use. HEART: Regular rate and rhythm, S1, S2 without murmur, rub or gallop. NEUROLOGICAL: Cranial nerves II through XII grossly intact. Normal speech, gait not observed. LABS CBCD WBC 7.6 K/mm3 (4.0-10.0) 06/25/17 05:46 RBC 3.55 M/mm3 (3.60-5.2) L 06/25/17 05:46 Hgb 11.2 GM/dL (10.7-15.3) 06/25/17 05:46 Hct 33.8 % (32.4-45.2) 06/25/17 05:46 MCV 95.1 fl (80-96) 06/25/17 05:46 MCHC 33.2 g/dl (32.0-36.0) 06/25/17 05:46 RDW 14.7 % (11.6-15.6) 06/25/17 05:46 Plt Count 390 K/MM3 (134-434) 06/25/17 05:46 MPV 8.6 fl (7.5-11.1) 06/25/17 05:46 CMP Sodium 137 mmol/L (136-145) 06/27/17 05:48 Potassium 4.3 mmol/L (3.5-5.1) 06/27/17 05:48 Chloride 97 mmol/L (98-107) L 06/27/17 05:48 Carbon Dioxide 31 mmol/L (21-32) 06/27/17 05:48 Anion Gap 9 (8-16) 06/27/17 05:48 BUN 30 mg/dL (7-18) H 06/27/17 05:48 Creatinine 1.4 mg/dL (0.55-1.02) H 06/27/17 05:48 Creat Clearance w eGFR 41.64 (>60) 06/25/17 05:46 Calcium 9.6 mg/dL (8.5-10.1) 06/27/17 05:48 Total Bilirubin 0.3 mg/dL (0.2-1.0) D 06/25/17 05:46 AST 17 U/L (15-37) 06/25/17 05:46 ALT 32 U/L (12-78) 06/25/17 05:46 Alkaline Phosphatase 124 U/L (45-117) H 06/25/17 05:46 Total Protein 6.9 g/dl (6.4-8.2) 06/25/17 05:46 Albumin 3.4 g/dl (3.4-5.0) 06/25/17 05:46 HOSPITAL COURSE: Date of Admission:06/22/17 Date of Discharge: 06/27/17 Pre hospital course 62 year-old woman with a history of COPD, chronic hypoxic respiratory failure, CAD, chronic diastolic heart failure, HTN, hyperlipidemia, lupus, DANY, type 2 DM , hypothyroidism, seizure disorder, morbid obesity who came to the ED complaining of shortness of breath, non-productive cough, and swelling of her legs x 4 days. Hospital course by problem list 1. Acute exacerbation of COPD - treated with IV steroids, discharged on PO taper - Continued Symbicort, Singulair, DuoNeb - Completed Zithromax x 5 days - Spiriva held - Continued oxygen to maintain saturation >90% 2. Acute on chronic diastolic heart failure - Treated with Lasix IV, Cozaar; discharged on PO Lasix 40mg BID 3. Chronic hypoxic respiratory failure secondary to COPD, CHF, DANY - Continue doxygen, CPAP at night 4. CAD 5. HTN - Continued Cozaar, Lasix 6. Hyperlipidemia - Continued Lipitor 7. Seizure disorder - Continued Tegretol, Topamax 8. Lupus - Continued Plaquenil, Methotrexate 9. Type 2 DM - Continued Levemir, Novolog sliding scale - Metformin, glipizide, Byetta held 10. Hypothyroidism - Continued Synthroid 11. Morbid obesity with BMI 48.7 12. DANY - Uses CPAP at night Minutes to complete discharge: 35 Discharge Summary Reason For Visit: CONGESTIVE HEWART FAILURE,CHRONIC OBSTRUCTIVE Current Active Problems Acute and chronic respiratory failure with hypoxia (Acute) COPD (chronic obstructive pulmonary disease) (Acute) Diastolic congestive heart failure (Acute) SOB (shortness of breath) (Acute) CHF (congestive heart failure) (Chronic) Condition: Improved - Instructions Diet, Activity, Other Instructions: Two prescriptions have been sent to your pharmacy: 1. Prednisone 2. Lasix Take these medications as directed. You should follow up with your primary care provider Dr. Hernandze within one week of your discharge. Referrals: Goran Hernandez MD [Primary Care Provider] - - Home Medications Comprehensive Discharge Medication List: Ambulatory Orders Albuterol Sulfate [Proair Hfa] 1 puff IH Q4H PRN 03/31/17 Atorvastatin Ca [Lipitor] 10 mg PO HS 03/31/17 Biotin 5,000 mcg PO DAILY 03/31/17 Budesonide/Formeterol Fumarate [SYMBICORT 160/4.5mcg -] 2 inh PO BID 03/31/17 Carbamazepine [Carbamazepine ER] 300 mg PO BID 03/31/17 Exenatide [Byetta] 10 mcg SQ BID 03/31/17 Glipizide [Glipizide Xl] 10 mg PO BID 03/31/17 Hydroxychloroquine So4 [Plaquenil -] 200 mg PO BID 03/31/17 Levothyroxine [Synthroid -] 50 mcg PO ASDIR 03/31/17 Losartan Potassium 50 mg PO DAILY 03/31/17 Metformin HCl 500 mg PO BID 03/31/17 Montelukast Na [Singulair -] 10 mg PO HS 03/31/17 [place]-3 Fatty Acids [[place]-3] 1,000 mg PO DAILY 03/31/17 Pramipexole Dihydrochloride [Mirapex -] 0.5 mg PO BID 03/31/17 Sertraline HCl 100 mg PO HS 03/31/17 Tiotropium [place] [Spiriva] 1 inh PO DAILY 03/31/17 Topiramate 100 mg PO BID 03/31/17 Insulin Lispro [Humalog] 0 unit SQ ASDIR 04/25/17 Omeprazole 40 mg PO DAILY 04/26/17 Insulin (Levemir) [Levemir Vial] 28 units SQ AM #10 ml 05/04/17 Methotrexate [Mexate -] 12.5 mg PO We@0730 tablet 05/04/17 Pen Needle, Diabetic [Insulin Pen Needle] 1 each MC AM #30 dis.needle 05/04/17 Furosemide [Lasix -] 40 mg PO BID@0600,1400 #60 tablet 06/27/17 predniSONE [Deltasone -] See Taper PO ASDIR #42 tablet 06/27/17 This patient is new to me today: Yes Date on this admission: 06/27/17 Emergency Visit: Yes ED Registration Date: 06/22/17 Care time: The patient presented to the Emergency Department on the above date and was hospitalized for further evaluation of their emergent condition. Critical Care patient: No - Discharge Referral Referred to [facility] Med P.C[facility] Yes Physician Referral: Goran Heard MD (Fam Med), Morgan Hyde MD (Pulm)
--- NOTE | 2017-06-27 10:26 | PN ---
Progress Note, Physician Chief Complaint: sob History of Present Illness: breathing is better cp with coughing persists no palpit no leg swelling - Current Medication List Current Medications: Active Medications Albuterol Sulfate (Ventolin 0.083% Nebulizer Soln -) 1 amp NEB Q4H PRN PRN Reason: SHORT OF BREATH/WHEEZING Last Admin: 06/22/17 12:17 Dose: 1 amp Albuterol/Ipratropium (Duoneb -) 1 amp NEB RQID [facility] Last Admin: 06/27/17 07:42 Dose: 1 amp Atorvastatin Calcium (Lipitor -) [address] [facility] Last Admin: 06/26/17 21:34 Dose: 10 mg Budesonide/Formoterol Fumarate (Symbicort 160/4.5mcg -) 2 puff IH BID [facility] Last Admin: 06/27/17 09:20 Dose: 2 puff Carbamazepine (Tegretol Xr -) 300 mg PO BID [facility] Last Admin: 06/27/17 09:16 Dose: 300 mg Furosemide (Lasix -) 40 mg PO BID@0600,1400 [facility] Heparin Sodium (Porcine) (Heparin -) 5,000 unit SQ Q8H-IV [facility] Last Admin: 06/27/17 09:14 Dose: 5,000 unit Hydroxychloroquine Sulfate (Plaquenil -) 200 mg PO BID [facility] Last Admin: 06/27/17 09:15 Dose: 200 mg Insulin Aspart (Novolog Vial Sliding Scale -) 1 vial SQ ACHS [facility] PRN Reason: Protocol Last Admin: 06/27/17 06:26 Dose: 4 units Insulin Detemir (Levemir Vial) 30 units SQ DAILY@0700 [facility] Last Admin: 06/27/17 06:25 Dose: 30 units Levothyroxine Sodium (Synthroid -) 50 mcg PO DAILY@0700 [facility] Last Admin: 06/27/17 06:28 Dose: 50 mcg Losartan Potassium (Cozaar -) 50 mg PO DAILY [facility] Last Admin: 06/27/17 09:20 Dose: 50 mg Methotrexate (Mexate -) 12.5 mg PO We@1000 [facility] Last Admin: 06/22/17 22:13 Dose: 12.5 mg Montelukast Sodium (Singulair -) 10 mg PO HS [facility] Last Admin: 06/26/17 21:34 Dose: 10 mg Pantoprazole Sodium (Protonix -) 40 mg PO DAILY [facility] Last Admin: 06/27/17 09:16 Dose: 40 mg Pramipexole Dihydrochloride (Mirapex -) 0.5 mg PO BID [facility] Last Admin: 06/27/17 09:15 Dose: 0.5 mg Prednisone (Deltasone -) 40 mg PO BID [facility] Stop: 06/27/17 22:01 Last Admin: 06/27/17 09:14 Dose: 40 mg Prednisone (Deltasone -) 60 mg PO DAILY [facility] Stop: 06/29/17 10:01 Sertraline HCl (Zoloft -) 100 mg PO HS [facility] Last Admin: 06/26/17 21:34 Dose: 100 mg Topiramate (Topamax -) 100 mg PO BID [facility] Last Admin: 06/27/17 09:16 Dose: 100 mg - Objective Vital Signs: Vital Signs Temperature 82 F L 06/27/17 10:00 Pulse Rate 82 06/27/17 10:00 Respiratory Rate 18 06/27/17 10:00 Blood Pressure 137/60 06/27/17 10:00 O2 Sat by Pulse Oximetry (%) 97 06/27/17 09:00 Constitutional: Yes: No Distress, Calm, Obese Cardiovascular: Yes: Regular Rate and Rhythm (soft sounds (copd/obesity)), S1, S2. No: Gallop, Murmur Respiratory: Yes: Regular, CTA Bilaterally (decr sounds (copd)). No: Accessory Muscle Use, Rales, Wheezes Extremities: No: Cold Edema: No Neurological: Yes: Alert, Oriented Psychiatric: No: Agitated Labs: CBC, BMP 06/25/17 05:46 06/27/17 05:48 Assessment/Plan [facility] 08/30 ([facility]): mild luminal irregularities LCX; LVEDP 25 Nuclear Stress Test done 07/09/16: nl ecg, mild anteroseptal ischemia, nl lvef 79 % Echo 03/02: normal LV systolic function; nl RV; mild MR/TR; nl RVSP. echo 03/2017: nl lv/rv, no sig valve path, nl rvsp CXR: no chf ECG: NSR, normal axis/intervals. no path q's, no ST-Ts tele: NSR Assessment/Plan acute exacerbation asthma/copd: -has had frequent asthma exacerbations req steroids recently, now again same -tx per pulm -has had incr fluid retention/edema as outpt on prednisone recently--lasix dose incr'd to 80 qd (of note, this did not help her ongoing sob at that time, which wa likely all sec to airways dz) atypical chest pain -CHRONIC. SX'S ARE M-SKEL (PLEURITIC, WORSE WITH COUGHING) WITH NORMAL COR ANGIOGRAM (PRIOR MPI FINDINGS HIGHLY LIKELY FALSE POSITIVE DUE TO SOFT TISSUE ATTENUATION) -SIMILAR SX'S HERE, CE's Negx3. NO FURTHER CARDIAC W/U INDICATED AT THIS TIME chronic diastolic congestive heart failure -lasix recently incr'd for LE edema sec to steroids as outpt -agree with IV lasix while here with copd exacerbation, on steroids--pt notes wt and edema both improving -06/27: remains with no leg edema. remains mildly pre-renal on labs. wt stable. change lasix to 80 po daily. pt will call me if leg swelling increases at home. Essential hypertension -well controlled -cont home meds, monitor bp trend Pure hypercholesterolemia -cont home statin NO INDICATION FOR CONTINUE TELEMETRY MONITORING
[2017-06-27] MEDS ORDERED: FUROSEMIDE 40 MG TABLET (FP) PO SCH (14:00)
[2017-06-28] MEDS ORDERED: FUROSEMIDE 40 MG TABLET (FP) PO SCH (10:00)
[2017-06-28] MEDS ORDERED: predniSONE 20 MG TABLET (UD) PO SCH (10:00)
[2017-06-29] MEDS ORDERED: METHOTREXATE 2.5 MG TABLET PO SCH (07:30)
== END 2017-06-27 14:57 | disposition home or self-care (01) | DRG 291 ==
LOC: JER 16:02 → JERBED 22:14 → OBSVTOIN 06-22 13:23 → J4W 06-22 15:04
PROVIDERS: ADMIT Internal Medicine; ATTEND Nurse Practitioner Acute Care
PROC: 5A09557 Assistance with Respiratory Ventilation, Greater than 96 Consecutive Hours, Continuous Positive Airway Pressure (ICD-10-PCS; principal; 2017-06-22)
DX: I11.0 Hypertensive heart disease with heart failure (principal); J96.21 Acute and chronic respiratory failure with hypoxia; J44.1 Chronic obstructive pulmonary disease with (acute) exacerbation; J45.901 Unspecified asthma with (acute) exacerbation; J96.11 Chronic respiratory failure with hypoxia; Z68.42 Body mass index [BMI] 45.0-49.9, adult; J44.0 Chronic obstructive pulmonary disease with (acute) lower respiratory infection; I50.33 Acute on chronic diastolic (congestive) heart failure; E78.5 Hyperlipidemia, unspecified; E11.9 Type 2 diabetes mellitus without complications; G47.33 Obstructive sleep apnea (adult) (pediatric); E03.9 Hypothyroidism, unspecified; R07.89 Other chest pain; E66.01 Morbid (severe) obesity due to excess calories; I25.10 Atherosclerotic heart disease of native coronary artery without angina pectoris; M32.9 Systemic lupus erythematosus, unspecified
CPT/HCPCS: 36415; 71045-TC-FY; 80048; 80053; 81003; 82550; 82553; 82962; 83036; 83880; 84484; 85025; 94640; 94660; 97116-GP; 97161-GP; 99284-25; G0378; J1100; J1644; J7620; J8610

== ENCOUNTER 2017-08-13 15:52 | Observation (INO) | payer OTHER, MEDICARE ==
[2017-08-13] MEDS ORDERED: methylPREDNISolone NA SUCC 125 MG/2 ML VIAL IVPUSH ONE (18:25)
[2017-08-13] MEDS ORDERED: ALBUTEROL SO4 2.5/IPRATROPIUM 0.5 INH SOL 3 ML VIAL.NEB. NEB ONE ×5 (18:25→22:35)
[2017-08-13] MEDS ORDERED: ALBUTEROL SO4 0.083% IH SOL 2.5 MG/3 ML VIAL.NEB. NEB ONE (18:27)
[2017-08-13] MEDS ORDERED: methylPREDNISolone NA SUCC 125 MG/2 ML VIAL ONE (18:27)
--- NOTE | 2017-08-13 18:32 | PDOC ---
History of Present Illness - History of Present Illness Initial Comments: The patient is a 62 year old female with PMHx of COPD on 3 L of home oxygen, CAD , CHF, hypertension, hyperlipidemia, lupus, sleep apnea, , DMII, hypothyroidism , seizure disorder, and morbid obesity presented with chest tightness and shortness of breath (similar to her past COPD exacerbations). She states that her lower extremities are notably more swollen than usual. She also notes a non- productive cough. She denies fever, chills She denies h/o DVT, or blood clots. 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 08/13/17 18:36 <Effie Linares - Last Filed: 08/13/17 18:38> - General History Source: Patient Exam Limitations: No Limitations - History of Present Illness Initial Comments: 08/13/17 18:26 62-year-old female history of COPD, CHF, hypertension diabetes here today complaining of worsening shortness of breath. Patient does take home O2 believes she is having a COPD exacerbation. Has been feeling progressively more short of breath for 3-4 days denies any fevers chills also describes some chest tightness. Did use her inhalers at home feel no relief she is on baseline steroids prednisone 10 mg daily no leg swelling no history of prior DVT or PE no other moderating factors does have bilateral leg swelling which is at her baseline <Adrienne Castillo - Last Filed: 08/13/17 22:21> - General Chief Complaint: Shortness of Breath Stated Complaint: SOB Time Seen by Provider: 08/13/17 16:17 Past History <Effie Linares - Last Filed: 08/13/17 18:38> - Past Medical History Anemia: No Asthma: Yes Cancer: No Cardiac Disorders: Yes (CAD) CVA: No COPD: Yes (uses 02 at 3l nasal cannula) CHF: No DVT: No Dementia: No Diabetes: Yes (iddm) GI Disorders: Yes (REFLUX) Disorders: No HTN: Yes Hypercholesterolemia: Yes Liver Disease: No Seizures: Yes (NO RECENT [id number]) Thyroid Disease: Yes (HYPO) - Surgical History Abdominal Surgery: Yes (lapband) Appendectomy: No Cardiac Surgery: No Cholecystectomy: Yes GI Surgery: Yes (LAP sx 11/23/16) Lung Surgery: No Neurologic Surgery: No Orthopedic Surgery: Yes (BILAT HIP REPLACEMENT/BILAT KNEE SX) - Immunization History Immunization Up to Date: Yes - Suicide/Smoking/Psychosocial Hx Smoking Status: Yes Smoking History: Former smoker Have you smoked in the past 12 months: No Number of Cigarettes Smoked Daily: 10 If you are a former smoker, when did you quit?: 20 years ago Cigars Per Day: 0 Information on smoking cessation initiated: No Hx Alcohol Use: No Drug/Substance Use Hx: No Substance Use Type: None Hx Substance Use Treatment: No <Adrienne Castillo - Last Filed: 08/13/17 22:21> - Past Medical History Allergies/Adverse Reactions: Allergies Allergy/AdvReac Type Severity Reaction Status Date / Time gabapentin [From Neurontin] Allergy PALPITATIONS, Verified 08/13/17 16:01 PASSES OUT Penicillins Allergy TONGUE Verified 08/13/17 16:01 Swelling phenytoin sodium Allergy diarrhea/vo Verified 08/13/17 16:01 [From Dilantin] miting phenytoin sodium extended Allergy Verified 08/13/17 16:01 [From Dilantin] theophylline [Theophylline] Allergy diarrhea,SE Verified 08/13/17 16:01 IZURES fresh garlic Allergy Uncoded 08/13/17 16:01 Home Medications: Ambulatory Orders Albuterol Sulfate [Proair Hfa] 1 puff IH Q4H PRN 03/31/17 Atorvastatin Ca [Lipitor] 10 mg PO HS 03/31/17 Biotin 5,000 mcg PO DAILY 03/31/17 Budesonide/Formeterol Fumarate [SYMBICORT 160/4.5mcg -] 2 inh PO BID 03/31/17 Carbamazepine [Carbamazepine ER] 300 mg PO BID 03/31/17 Exenatide [Byetta] 10 mcg SQ BID 03/31/17 Glipizide [Glipizide Xl] 10 mg PO BID 03/31/17 Hydroxychloroquine So4 [Plaquenil -] 200 mg PO BID 03/31/17 Levothyroxine [Synthroid -] 50 mcg PO ASDIR 03/31/17 Losartan Potassium 50 mg PO DAILY 03/31/17 Montelukast Na [Singulair -] 10 mg PO HS 03/31/17 [place]-3 Fatty Acids [[place]-3] 1,000 mg PO DAILY 03/31/17 Pramipexole Dihydrochloride [Mirapex -] 0.5 mg PO BID 03/31/17 Sertraline HCl 100 mg PO HS 03/31/17 Tiotropium [place] [Spiriva] 1 inh PO DAILY 03/31/17 Topiramate 100 mg PO BID 03/31/17 metFORMIN HCL [Metformin HCl] 500 mg PO BID 03/31/17 Insulin Lispro [Humalog] 0 unit SQ ASDIR 04/25/17 Insulin (Levemir) [Levemir Vial] 28 units SQ AM #10 ml 05/04/17 Methotrexate [Mexate -] 12.5 mg PO We@0730 tablet 05/04/17 Pen Needle, Diabetic [Insulin Pen Needle] 1 each MC AM #30 dis.needle 05/04/17 Furosemide [Lasix -] 40 mg PO BID@0600,1400 #60 tablet 06/27/17 Review of Systems - Review of Systems Comments:: GENERAL/CONSTITUTIONAL: No fever or chills. No weakness. HEAD, EYES, EARS, NOSE AND THROAT: No change in vision. No ear pain or discharge. No sore throat. CARDIOVASCULAR: +chest tightness, + shortness of breath. RESPIRATORY: + cough, no hemoptysis. GASTROINTESTINAL: No nausea, vomiting, diarrhea or constipation. GENITOURINARY: No dysuria, frequency, or change in urination. MUSCULOSKELETAL: +LE swelling. No joint pain. No neck or back pain. SKIN: No rash NEUROLOGIC: No headache, vertigo, loss of consciousness, or change in strength/ sensation. ENDOCRINE: No increased thirst. No abnormal weight change. HEMATOLOGIC/LYMPHATIC: No anemia, easy bleeding, or history of blood clots. ALLERGIC/IMMUNOLOGIC: No hives or skin allergy. 08/13/17 18:38 <Effie Linares - Last Filed: 08/13/17 18:38> - Review of Systems Constitutional: No: Chills, Diaphoresis, Fever HEENTM: No: Blurred Vision Respiratory: Yes: Cough, Shortness of Breath, Wheezing. No: Orthopnea, Productive cough, Hemoptysis : No: Burning, Dysuria, Discharge Musculoskeletal: No: Back Pain Integumentary: No: Bruising Neurological: No: Headache All Other Systems: Reviewed and Negative <Cirilli,Adrienne - Last Filed: 08/13/17 22:21> *Physical Exam - Vital Signs Last Vital Signs Temp Pulse Resp BP Pulse Ox 98.1 F 82 18 118/64 97 08/13/17 15:57 08/13/17 15:57 08/13/17 15:57 08/13/17 15:57 08/13/17 16:54 <Effie Linares - Last Filed: 08/13/17 18:38> - Vital Signs Last Vital Signs Temp Pulse Resp BP Pulse Ox 98.1 F 82 18 118/64 97 08/13/17 15:57 08/13/17 15:57 08/13/17 15:57 08/13/17 15:57 08/13/17 16:54 - Physical Exam General Appearance: Yes: Nourished HEENT: positive: Normal ENT Inspection Neck: positive: Trachea midline Respiratory/Chest: positive: Wheezing (at bases. decreased airflow. no accessory muscle use. ) Cardiovascular: positive: Regular Rhythm, Regular Rate, S1, S2 Gastrointestinal/Abdominal: positive: Normal Bowel Sounds, Flat. negative: Tender Musculoskeletal: positive: Normal Inspection Extremity: positive: Pedal Edema (1+ pitting edema bilaterally.) Integumentary: positive: Normal Color, Dry, Warm Neurologic: positive: Fully Oriented, Alert, Normal Mood/Affect <Adrienne Castillo - Last Filed: 08/13/17 22:21> Heart Score/ECG Review #1 General ECG Interpretation: Sinus Rhythm, Normal Rate (83), Normal Intervals, No acute ischemic changes Compared to previous ECG there are: Other (left axis, TWI III.) <Adrienne Castillo - Last Filed: 08/13/17 22:21> ED Treatment Course - LABORATORY CBC & Chemistry Diagram: 08/13/17 18:50 08/13/17 18:50 - RADIOLOGY Radiology Studies Ordered: Category Date Time Status CHEST PA & LAT [RAD] Stat Radiology 08/13/17 18:24 Ordered <Adrienne Castillo - Last Filed: 08/13/17 22:21> Medical Decision Making - Medical Decision Making 08/13/17 18:31 62 yo F with h/o copd chf htn dm. with sob. diffeerential chf, copd. acs pneumonia, effusion. renal failure, anemial. plan labs ekg cxr nebs. ekg . bnp. reassess. pt pcp abida, and Dr. Hyde tone regulator. 08/13/17 22:19 pt cxr unremakrable. labs unremarkable. BNP low. pt not improved after two nebs and steroids, will admit for observation nebs and steroids. <Adrienne Castillo - Last Filed: 08/13/17 22:21> *DC/Admit/Observation/Transfer - Attestations Scribe Attestion: 08/13/17 18:38 Documentation prepared by Effie Linares, acting as certified medical biller for Adrienne Castillo MD. <Effie Linares - Last Filed: 08/13/17 18:38> <Adrienne Castillo - Last Filed: 08/13/17 22:21> - Referrals Referrals: Goran Hernandez MD [Primary Care Provider] - - Patient Instructions - Post Discharge Activity
[2017-08-13 19:08] LABS: BASO % 1.2 % (0-2.0); EOS % 0.1 % (0-4.5); HEMOGLOBIN 12.3 GM/dL (10.7-15.3); LYMPH % 20.2 % (8-40); MCH 29.9 pg (25.7-33.7); MCHC 32.3 g/dl (32.0-36.0); MEAN CELL VOLUME 92.7 fl (80-96); MEAN PLT VOLUME 8.1 fl (7.5-11.1); MONO % 2.3 % (3.8-10.2); NEUT % 76.2 % (42.8-82.8); PLATELET COUNT 351 K/MM3 (134-434); WHITE BLOOD COUNT 9.3 K/mm3 (4.0-10.0)
[2017-08-13 19:32] LABS: ALBUMIN 3.7 g/dl (3.4-5.0); ANION GAP 10 (8-16); BLOOD UREA NITROGEN 17 mg/dL (7-18); CHLORIDE 103 mmol/L (98-107); CO2 28 mmol/L (21-32); CREATININE 1.2 mg/dL (0.55-1.02); GLUCOSE,RANDOM 212 mg/dL (74-106); POTASSIUM 3.6 mmol/L (3.5-5.1); SGOT/AST 23 U/L (15-37); SGPT/ALT 38 U/L (12-78); SODIUM 141 mmol/L (136-145)
[2017-08-13 19:36] LABS: ALK PHOS 135 U/L (45-117); BILIRUBIN,TOTAL 0.3 mg/dL (0.2-1.0); N-TERMINAL BNP 101.11 pg/ml (5-125); TOT PROT 7.8 g/dl (6.4-8.2)
--- NOTE | 2017-08-13 23:02 | HP ---
CHIEF COMPLAINT: Short of breath PCP: Dr. Hernandez [employer]: Dr. Hyde HISTORY OF PRESENT ILLNESS: 61yo F with history of COPD (3L NC baseline), DANY (CPAP; unknown settings), CAD (s/p catherization), SLE, DM, HTN, HLD who was recently admitted for a COPD exacerbation seen again for worsening shortness of breath refractory to her inhaler use at home. Pt reports tapering down steroids from her previous admission and was back onto her baseline 10mg Prednisone. Pt reports recently at [employer] she was in close contact with someone who had a mild upper respiratory infection. She reports having clear rhinorrhea and has had an increased cough lately. In addition, she endorses some increased lower extremity edema, however admits to eating dinner one day at [email or web address]. Pt denies fever/chills, n/v/d/c, chest discomfort, palpitations, diaphoresis, jaw claudication, abdominal pain, dysuria, polyuria. ER course was notable for: (1) Duoneb treatments (2) Medrol 125mg x1 (3) CXR - Chronic pleural changes noted; no evidence of effusions or vascular congestion Recent Travel: None PAST MEDICAL HISTORY: COPD (3L NC baseline), DANY (CPAP; unknown settings), CAD (s/p catherization) , SLE, DM, HTN, HLD, Hypothyroidism, Seizure disorder, Morbid obesity PAST SURGICAL HISTORY: Hip replacement, cardiac cath, tonsillectomy, Cholecystectomy Social History: Smoking: denies Alcohol: denies Drugs: denies Family History: doesn't know Allergies gabapentin [From Neurontin] Allergy (Verified 08/13/17 16:01) PALPITATIONS, PASSES OUT Penicillins Allergy (Verified 08/13/17 16:01) TONGUE Swelling phenytoin sodium [From Dilantin] Allergy (Verified 08/13/17 16:01) diarrhea/vomiting phenytoin sodium extended [From Dilantin] Allergy (Verified 08/13/17 16:01) theophylline [Theophylline] Allergy (Verified 08/13/17 16:01) diarrhea,SEIZURES fresh garlic Allergy (Uncoded 08/13/17 16:01) HOME MEDICATIONS: Home Medications Medication Instructions Recorded Albuterol Sulfate [Proair Hfa] 1 puff IH Q4H PRN 03/31/17 Atorvastatin Ca [Lipitor] 10 mg PO HS 03/31/17 Biotin 5,000 mcg PO DAILY 03/31/17 Budesonide/Formeterol Fumarate 2 inh PO BID 03/31/17 [SYMBICORT 160/4.5mcg -] Carbamazepine [Carbamazepine ER] 300 mg PO BID 03/31/17 Exenatide [Byetta] 10 mcg SQ BID 03/31/17 Glipizide [Glipizide Xl] 10 mg PO BID 03/31/17 Hydroxychloroquine So4 [Plaquenil 200 mg PO BID 03/31/17 -] Levothyroxine [Synthroid -] 50 mcg PO ASDIR 03/31/17 Losartan Potassium 50 mg PO DAILY 03/31/17 Montelukast Na [Singulair -] 10 mg PO HS 03/31/17 [place]-3 Fatty Acids [[place]-3] 1,000 mg PO DAILY 03/31/17 Pramipexole Dihydrochloride 0.5 mg PO BID 03/31/17 [Mirapex -] Sertraline HCl 100 mg PO HS 03/31/17 Tiotropium [place] [Spiriva] 1 inh PO DAILY 03/31/17 Topiramate 100 mg PO BID 03/31/17 metFORMIN HCL [Metformin HCl] 500 mg PO BID 03/31/17 Insulin Lispro [Humalog] 0 unit SQ ASDIR 04/25/17 Insulin (Levemir) [Levemir Vial] 28 units SQ AM #10 ml 05/04/17 Methotrexate [Mexate -] 12.5 mg PO We@0730 tablet 05/04/17 Pen Needle, Diabetic [Insulin Pen 1 each MC AM #30 dis.[email or web address] 05/04/17 Needle] Furosemide [Lasix -] 40 mg PO BID@0600,1400 #60 tablet 06/27/17 REVIEW OF SYSTEMS CONSTITUTIONAL: Absent: fever, chills, diaphoresis, generalized weakness, malaise, loss of appetite, weight change HEENT: Present: rhinorrhea, Absent: nasal congestion, throat pain, throat swelling, difficulty swallowing , mouth swelling, ear pain, eye pain, visual changes CARDIOVASCULAR: Present: Peripheral edema Absent: chest pain, syncope, palpitations, irregular heart rate, lightheadedness RESPIRATORY: Present: Cough, shortness of breath, wheezing Absent: dyspnea with exertion, orthopnea, stridor, hemoptysis GASTROINTESTINAL: Absent: abdominal pain, abdominal distension, nausea, vomiting, diarrhea, constipation, melena, hematochezia GENITOURINARY: Absent: dysuria, frequency, urgency, hesitancy, hematuria, flank pain, SKIN: Absent: rash, itching, pallor NEUROLOGIC: Absent: headache, focal weakness or paresthesias, dizziness, unsteady gait, seizure, mental status changes, bladder or bowel incontinence PHYSICAL EXAMINATION Vital Signs - 24 hr 08/13/17 08/13/17 15:57 16:54 Temperature 98.1 F Pulse Rate 82 Respiratory 18 Rate Blood Pressure 118/64 O2 Sat by Pulse 97 97 Oximetry (%) GENERAL: Awake, alert, and fully oriented, in no acute distress. HEENT: NC/AT, EOMI, CECILLE, MMM, no erythema noted in posterior oropharynx NECK: Supple, No JVD, no lymphadenopathy LUNGS: Distant, diminished breath sounds at bases bilaterally. Slight end- expiratory wheezes, and no crackles. No accessory muscle use. On 3LNC HEART: RRR, normal S1 and S2 without murmur ABDOMEN: Soft, obese, nontender, not distended, normoactive bowel sounds, no guarding EXTREMITIES: 2+ DP pulses, warm, well-perfused. 1+ pitting edema to mid lower leg noted, no calf tenderness NEUROLOGICAL: Cranial nerves II-XII intact. Normal speech. Normal gait. PSYCHIATRIC: Cooperative. Good eye contact. Appropriate mood and affect. SKIN: Warm, dry, normal turgor, early skin changes in LLE noted, normal capillary refill. Laboratory Results - last 24 hr 08/13/17 08/13/17 08/13/17 18:50 18:50 18:50 WBC 9.3 RBC 4.10 Hgb 12.3 Hct 38.0 MCV 92.7 MCH 29.9 MCHC 32.3 RDW 15.0 Plt Count 351 MPV 8.1 Absolute Neuts (auto) 7.1 Neutrophils % 76.2 Lymphocytes % 20.2 Monocytes % 2.3 L Eosinophils % 0.1 Basophils % 1.2 Nucleated RBC % 0 Sodium 141 Potassium 3.6 Chloride 103 Carbon Dioxide 28 Anion Gap 10 BUN 17 Creatinine 1.2 H Creat Clearance w eGFR 45.67 Random Glucose 212 H Calcium 9.0 Total Bilirubin 0.3 AST 23 ALT 38 Alkaline Phosphatase 135 H Troponin I 0.02 B-Natriuretic Peptide 101.11 Total Protein 7.8 Albumin 3.7 08/13/17 18:50 WBC RBC Hgb Hct MCV MCH MCHC RDW Plt Count MPV Absolute Neuts (auto) Neutrophils % Lymphocytes % Monocytes % Eosinophils % Basophils % Nucleated RBC % Sodium Potassium Chloride Carbon Dioxide Anion Gap BUN Creatinine Creat Clearance w eGFR Random Glucose Calcium Total Bilirubin AST ALT Alkaline Phosphatase Troponin I B-Natriuretic Peptide 101.14 Total Protein Albumin ASSESSMENT/PLAN: 1) Suspected COPD exacerbation --Positive sick contacts --most likely viral URI which spurred on COPd exacerbation --Duonebs QId, Alb PRN --medrol 60mg qdaily --CPAP at night --Singulair continued --Hold spiriva as redundant --Maintain SpO2 >90% 2) History of CHF --Does not seem in exacerbation: No changes to O2 requirements, pt's physical exam seems more of her baseline based on my past examinations of her --Daily weights --I&O's to be monitored --Continue home dose Lasix 40mg PO BID --May need to double a one-time strength dose if pt does not improve 3) DM --BGM --ISS ACHS --Levemir 28U AM to continue 4) SLE --Continue home medications 5) History of Seizures --Continue Carbamazepine home dose FEN: Fluids: None; tolerating PO Electrolyte abnormalities: None currently Nutrition: Diabetic, sodium-controlled diet PPX: DVT -Heparin SQ Dispo: Place in M/S Obs; test PFTs in morning Case discussed with Dr. Nora Adams, DO - IM PGY-1 Visit type - Emergency Visit Emergency Visit: Yes ED Registration Date: 08/13/17 Care time: The patient presented to the Emergency Department on the above date and was hospitalized for further evaluation of their emergent condition. - New Patient This patient is new to me today: Yes Date on this admission: 08/14/17 - Critical Care Critical Care patient: No Hospitalist Screening - Colonoscopy Questionnaire Colonoscopy Questionnaire: Colonoscopy Questionnaire - Patient: 50 - 75 years old and never had a screening colonoscopy: Unknown History of colon or rectal polyps, or CA: Unknown History of IBD, Crohn's disease or UC: Unknown History of abdominal radiation therapy as a child: Unknown - Relative: 1 with colon or rectal CA, or polyps at age 60 or younger: Unknown Colon or rectal CA diagnosed at age 45 or younger: Unknown Multiple relatives with colon or rectal CA: Unknown - Outcome: Screening Result: Negative Screen
[2017-08-13] MEDS ORDERED: ALBUTEROL SO4 0.083% IH SOL 2.5 MG/3 ML VIAL.NEB. NEB PRN (23:12)
--- NOTE | 2017-08-14 04:03 | PN ---
Teaching Attending Note Name of Resident: Morgan Adams ATTENDING PHYSICIAN STATEMENT I saw and evaluated the patient. I reviewed the resident's note and discussed the case with the resident. I agree with the resident's findings and plan as documented. SUBJECTIVE: 62F COPD 3L home O2, DANY, morbid obesity comes in for worsening SOB Lungs: mild exp wheezes A/P COPD Exacerbation - mild continue Nebz and steroids admit to Obs
[2017-08-14 04:11] VITALS: BMI 49.4
[2017-08-14] MEDS: LEVOTHYROXINE NA 50 MCG TABLET (FP) PO SCH (06:08)
[2017-08-14] MEDS: HEPARIN NA (PORCINE) 5,000 UNITS/ML 1ML VIAL SQ SCH ×3 (06:08→21:19)
[2017-08-14] MEDS: INSULIN SLIDING SCALE (NOVOLOG) 1 VIAL SQ SCH ×4 (06:42→21:19)
[2017-08-14] MEDS ORDERED: INSULIN (LEVEMIR) 100 UNITS/ML UNITS SQ SCH ×2 (07:00→12:23)
[2017-08-14] MEDS: ALBUTEROL SO4 2.5/IPRATROPIUM 0.5 INH SOL 3 ML VIAL.NEB. NEB SCH ×4 (07:20→20:31)
--- NOTE | 2017-08-14 09:28 | EKG ---
Test Reason : Blood Pressure : / mmHG Vent. Rate : 083 BPM Atrial Rate : 083 BPM P-R Int : 158 ms QRS Dur : 074 ms QT Int : 376 ms P-R-T Axes : 037 -18 043 degrees QTc Int : 441 ms NORMAL SINUS RHYTHM MODERATE VOLTAGE CRITERIA FOR LVH, MAY BE NORMAL VARIANT NONSPECIFIC T WAVE ABNORMALITY ABNORMAL ECG WHEN COMPARED WITH ECG OF 26-APR-2017 09:28, NO SIGNIFICANT CHANGE WAS FOUND Confirmed by CONSUELO COLLINS MD ([id number]) on 08/14/2017 9:27:46 AM Referred By: Confirmed By:CONSUELO COLLINS MD
[2017-08-14] MEDS ORDERED: TOPIRAMATE 100 MG TABLET PO SCH (10:00)
[2017-08-14] MEDS ORDERED: methylPREDNISolone NA SUCC 40 MG/1 ML VIAL IVPUSH SCH (10:00)
--- NOTE | 2017-08-14 10:39 | PN ---
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 BLOOD SUGARS MONITOR LYTES CONSIDER BACTRIM PROPHYLAXIS DVT PROPHYLAXIS DR DAI Problem List - Problems (1) Acute and chronic respiratory failure with hypoxia Code(s): J96.21 - ACUTE AND CHRONIC RESPIRATORY FAILURE WITH HYPOXIA (2) Acute exacerbation of chronic obstructive pulmonary disease (COPD) Code(s): J44.1 - CHRONIC OBSTRUCTIVE PULMONARY DISEASE W (ACUTE) EXACERBATION (3) Hyperglycemia Code(s): R73.9 - HYPERGLYCEMIA, UNSPECIFIED (4) Morbid (severe) obesity due to excess calories Code(s): E66.01 - MORBID (SEVERE) OBESITY DUE TO EXCESS CALORIES (5) Obstructive sleep apnea (adult) (pediatric) Code(s): G47.33 - OBSTRUCTIVE SLEEP APNEA (ADULT) (PEDIATRIC) (6) SOB (shortness of breath) Code(s): R06.02 - SHORTNESS OF BREATH (7) CAD (coronary artery disease) Code(s): I25.10 - ATHSCL HEART DISEASE OF [place] CORONARY ARTERY W/O ANG PCTRS (8) CKD (chronic kidney disease) stage 3, GFR 30-59 ml/min Code(s): N18.3 - CHRONIC KIDNEY DISEASE, STAGE 3 (MODERATE) (9) Hypertension Code(s): I10 - ESSENTIAL (PRIMARY) HYPERTENSION Qualifiers: Hypertension type: essential hypertension Qualified Code(s): I10 - Essential (primary) hypertension (10) SLE (systemic lupus erythematosus) Code(s): M32.9 - SYSTEMIC LUPUS ERYTHEMATOSUS, UNSPECIFIED (11) Seizure disorder Code(s): G40.909 - EPILEPSY, UNSP, NOT INTRACTABLE, WITHOUT STATUS EPILEPTICUS (12) Sleep apnea, obstructive Code(s): G47.33 - OBSTRUCTIVE SLEEP APNEA (ADULT) (PEDIATRIC)
[2017-08-14] MEDS ORDERED: PT OWN MED DRAWER 7, Y5N ONE ×2 (10:47→16:49)
[2017-08-14] MEDS: methylPREDNISolone NA SUCC 40 MG/1 ML VIAL IVPUSH SCH (10:49)
[2017-08-14] MEDS: LOSARTAN POTASSIUM 50 MG TABLET (FP) PO SCH (10:49)
[2017-08-14] MEDS: HYDROXYCHLOROQUINE SO4 200 MG TABLET (FP) PO SCH ×2 (10:49→23:09)
--- NOTE | 2017-08-14 12:05 | CONS ---
DATE OF CONSULTATION: 08/14/2017 REFERRING PHYSICIAN: Jae Milian MD The patient is a 61-year-old white female with past medical history of advanced COPD, on home O2 at 3 L; obstructive sleep apnea, maintained on auto-PAP; ASHD, status post cardiac catheterization; SLE, maintained on prednisone, methotrexate, and Plaquenil; hypertension; hyperlipidemia; diabetes, insulin-dependent admitted to Health system with increasing shortness of breath and dyspnea on exertion. The patient was recently hospitalized at [facility] secondary to COPD exacerbation. She initially was doing well on high-dose steroids and recently tapered back down to 10 mg daily. She apparently was at [employer] recently and in close contact with somebody that had a URI. On the day of admission, she started developing some cough productive of clear sputum. She also has been having increased lower extremity edema and shortness of breath. She denies any chest pain, palpitations, nausea, vomiting, or diaphoresis. She has a history of smoking; quit greater than 20 years ago. There is no history of occupational exposures to chemicals or fumes. She has never been intubated. PAST MEDICAL HISTORY: Again, includes COPD, on home O2 at 3 L, obstructive sleep apnea, on auto-PAP, ASHD, status post cardiac catheterization, SLE, diabetes, hypertension, hyperlipidemia, and morbid obesity. REVIEW OF SYSTEMS: Positive for dyspnea, positive cough. No chest pain, no palpitations. Positive wheezing. No abdominal pain. Positive lower extremity edema. CURRENT MEDICATIONS: Solu-Medrol 40 daily; Tylenol; Cozaar; Skelaxin; heparin subcutaneously; Tegretol; Topamax; Zoloft. PHYSICAL EXAMINATION: General: The patient is an obese female, but awake, alert, in no acute distress. Vital Signs: She is currently afebrile, blood pressure is 112/76, respiratory rate 22, O2 saturation is 97% on 3 L. HEENT: Normocephalic, atraumatic. Neck: Supple. Heart: Regular, S1, S2. Chest: Few scattered bilateral wheezes. Abdomen: Soft, bowel sounds are positive. Extremities: Trace bilateral lower extremity edema. LABORATORIES: WBC is 9.3, hemoglobin 12.3, hematocrit 38, platelet count of 351,000. Chemistries: BUN 17, creatinine 1.2 CHEST X-RAY: No infiltrates and no effusions. PFTs as an outpatient revealed mild obstruction, reduced diffusion capacity, and mild restriction. IMPRESSION: 1. Bfylx-yj-wftkjna hypoxemic respiratory failure secondary to decompensated chronic obstructive pulmonary disease. 2. Systemic lupus erythematosus. 3. Obstructive sleep apnea, on continuous positive-airway pressure, on bjxd-cuehvsns-advvpo pressure. 4. Seizure disorder. 5. Insulin-dependent diabetes mellitus. 6. Mild chronic kidney disease. 7. Morbid obesity. PLAN: IV steroids, inhaled bronchodilators, supplemental O2, auto-PAP at night. Also consider a Bactrim for PCP prophylaxis. MARGIE DAI M.D. [id number]
[2017-08-14] MEDS ORDERED: NICOTINE 14 MG/24 HOURS TOPICAL PATCH TD SCH (12:30)
[2017-08-14] MEDS: BUDESONIDE/FORMETEROL FUMARATE 160/4.5 mcg INHALER IH SCH ×2 (13:37→21:21)
[2017-08-14] MEDS ORDERED: INSULIN (NOVOLOG) ASPART 100 UNITS/ML 10ML VIAL ONE (17:25)
--- NOTE | 2017-08-14 17:57 | PN ---
Physical Exam: SUBJECTIVE: Patient seen and examined at bedside. No acute complaints, no overnight events, continues to complain of SOB. OBJECTIVE: Vital Signs Period Temp Pulse Resp BP Sys/Oconnell Pulse Ox Last 24 Hr 97.7 F-99.8 F 71-91 20-22 112-137/59-76 97-97 GENERAL: The patient is awake, alert, and fully oriented, in no acute distress. HEAD: Normal with no signs of trauma. EYES: PERRL, extraocular movements intact, sclera anicteric, conjunctiva clear. No ptosis. ENT: Ears normal, nares patent, oropharynx clear without exudates, moist mucous membranes. NECK: Trachea midline, full range of motion, supple. LUNGS: Good air entry and effort, mild wheezing throughout lung griggs b/l, prolonged expiratory phase. HEART: Regular rate and rhythm, S1, S2 without murmur, rub or gallop. ABDOMEN: Soft, nontender, nondistended, normoactive bowel sounds, no guarding, no rebound, no hepatosplenomegaly, no masses. EXTREMITIES: 2+ pulses, warm, well-perfused, mild LE edema. NEUROLOGICAL: Cranial nerves II through XII grossly intact. Normal speech, gait not observed. PSYCH: Normal mood, normal affect. SKIN: Warm, dry, normal turgor, no rashes or lesions noted Laboratory Results - last 24 hr 08/13/17 08/13/17 08/13/17 18:50 18:50 18:50 WBC 9.3 RBC 4.10 Hgb 12.3 Hct 38.0 MCV 92.7 MCH 29.9 MCHC 32.3 RDW 15.0 Plt Count 351 MPV 8.1 Absolute Neuts (auto) 7.1 Neutrophils % 76.2 Lymphocytes % 20.2 Monocytes % 2.3 L Eosinophils % 0.1 Basophils % 1.2 Nucleated RBC % 0 Sodium 141 Potassium 3.6 Chloride 103 Carbon Dioxide 28 Anion Gap 10 BUN 17 Creatinine 1.2 H Creat Clearance w eGFR 45.67 POC Glucometer Random Glucose 212 H Calcium 9.0 Total Bilirubin 0.3 AST 23 ALT 38 Alkaline Phosphatase 135 H Troponin I 0.02 B-Natriuretic Peptide 101.11 Total Protein 7.8 Albumin 3.7 08/13/17 08/14/17 08/14/17 18:50 05:36 11:36 WBC RBC Hgb Hct MCV MCH MCHC RDW Plt Count MPV Absolute Neuts (auto) Neutrophils % Lymphocytes % Monocytes % Eosinophils % Basophils % Nucleated RBC % Sodium Potassium Chloride Carbon Dioxide Anion Gap BUN Creatinine Creat Clearance w eGFR POC Glucometer 326 163 Random Glucose Calcium Total Bilirubin AST ALT Alkaline Phosphatase Troponin I B-Natriuretic Peptide 101.14 Total Protein Albumin 08/14/17 16:41 WBC RBC Hgb Hct MCV MCH MCHC RDW Plt Count MPV Absolute Neuts (auto) Neutrophils % Lymphocytes % Monocytes % Eosinophils % Basophils % Nucleated RBC % Sodium Potassium Chloride Carbon Dioxide Anion Gap BUN Creatinine Creat Clearance w eGFR POC Glucometer 264 Random Glucose Calcium Total Bilirubin AST ALT Alkaline Phosphatase Troponin I B-Natriuretic Peptide Total Protein Albumin Active Medications Generic Name Dose Route Start Last Admin Trade Name Freq PRN Reason Stop Dose Admin Albuterol Sulfate 1 amp 08/13/17 23:12 Ventolin 0.083% Nebulizer Soln - NEB Q8H PRN SHORT OF BREATH/WHEEZING Albuterol/Ipratropium 1 amp 08/14/17 08:00 08/14/17 15:28 Duoneb - NEB 1 amp RQID DONTA Administration Atorvastatin Calcium 10 mg 08/14/17 22:00 Lipitor - PO HS DONTA Budesonide/Formoterol Fumarate 2 puff 08/14/17 12:30 08/14/17 13:37 Symbicort 160/4.5mcg - IH 2 puff BID DONTA Administration Carbamazepine 300 mg 08/14/17 10:00 08/14/17 10:50 Tegretol Xr - PO 300 mg BID DONTA Administration Furosemide 40 mg 08/15/17 06:00 Lasix - PO BID@0600,1400 DONTA Heparin Sodium (Porcine) 5,000 unit 08/14/17 06:00 08/14/17 13:37 Heparin - SQ 5,000 unit TID DONTA Administration Hydroxychloroquine Sulfate 200 mg 08/14/17 10:00 08/14/17 10:49 Plaquenil - PO 200 mg BID DONTA Administration Insulin Aspart 1 vial 08/14/17 07:00 08/14/17 17:28 Novolog Vial Sliding Scale - SQ 6 units ACHS DONTA Administration Protocol Insulin Detemir 32 units 08/14/17 12:23 Levemir Vial SQ AM DONTA Levothyroxine Sodium 50 mcg 08/14/17 07:00 08/14/17 06:08 Synthroid - PO 50 mcg 0700 DONTA Administration Losartan Potassium 50 mg 08/14/17 10:00 08/14/17 10:49 Cozaar - PO 50 mg DAILY DONTA Administration Methotrexate 12.5 mg 08/17/17 07:30 Mexate - PO We@0730 [facility] Methylprednisolone Sodium Succinate 40 mg 08/14/17 10:00 08/14/17 10:49 Solu-Medrol - IVPUSH 40 mg DAILY DONTA Administration Montelukast Sodium 10 mg 08/14/17 22:00 Singulair - PO HS DONTA Sertraline HCl 100 mg 08/14/17 22:00 Zoloft - PO HS DONTA Topiramate 100 mg 08/14/17 10:00 08/14/17 10:49 Topamax - PO 100 mg BID DONTA Administration ASSESSMENT/PLAN: 62 y/o F w/ PMHx COPD on home O2 and baseline steroids, CHF, IDDM, DANY< SLE, Seizure disorder, HTN, HLD, hypothyroidism presents w/ SOB refractory to home regimen 2/2 sick contact at [facility] 1) COPD exacerbation -no evident respiratory distress, Pt speaking and breathing normally without excess effort -Solumedrol 40mg IV qD, Singulair 10 mg PO HS, Symbicort 2 puffs BID, duonebs QID, albuterol PRN -O2 3LNC -maintain >90% O2 sat 2) History of CHF -likely unrelated to current exacerbation -home Lasix 40 mg PO BID -CXR unchanged vs. April 3) T2DM -serial blood glucose -sliding scale insulin -Levemir 32U AM 3) DANY -on CPAP 4) SLE -home medications as above 5) Seizure disorder -home medications as above 6) Depression -home medications as above 7) HTN -home medications as above 8) HLD -home medications as above 9) Hypothyroidism -home medications as above #FEN: Fluids: None; tolerating PO Electrolyte abnormalities: None currently Nutrition: Diabetic, sodium-controlled diet #PPX: DVT -Heparin SQ 5000U TID #Dispo: D/C home w/ pulm outpatient f/u Visit type - Emergency Visit Emergency Visit: No - New Patient This patient is new to me today: Yes Date on this admission: 08/14/17 - Critical Care Critical Care patient: No
--- NOTE | 2017-08-14 18:14 | PN ---
Teaching Attending Note Name of Resident: Jose Connelly ATTENDING PHYSICIAN STATEMENT I saw and evaluated the patient. I reviewed the resident's note and discussed the case with the resident. I agree with the resident's findings and plan as documented. SUBJECTIVE: No fever or chills, SOB is the same . no cough OBJECTIVE: NAD , round face, central obesity, buffalo hump CV: RRR Lungs: scattered wheezing , god air entry . Ext: no edema or erythema ASSESSMENT AND PLAN: 62 y/o lady with CAD, D CHF, COPD , on 3 L of o2, DANY on CPAP , SLE , HTN, hypothyroidism, seizure, gastric banding , Morbid obesity who presented with SOB , and was found to have COPD exacerbation 1- Acute COPD exacerbation : - cont solumedrol - no PNA - cont Nebs - resume symbicort - cont home CPAP - will ask pulm about dosing for bactrim prophylaxis 2- CAD, h/o CHF cont losartan , ASA and lasix 3- seizure: cont meds 4- h/o Lupus : cont meds 5- Dm : levemir at 32 an dSSI possible dc tomorrow PPT eval
[2017-08-14] MEDS ORDERED: ATORVASTATIN CA 10 MG TABLET (FP) PO SCH (22:00)
[2017-08-14] MEDS ORDERED: SERTRALINE HCL 50 MG TABLET (FP) PO SCH (22:00)
[2017-08-14] MEDS ORDERED: MONTELUKAST NA 10 MG TABLET PO SCH (22:00)
[2017-08-15] MEDS ORDERED: PT OWN MED DRAWER 7, Y5N ONE ×2 (06:33→10:30)
[2017-08-15] MEDS: INSULIN SLIDING SCALE (NOVOLOG) 1 VIAL SQ SCH ×3 (06:41→18:04)
[2017-08-15] MEDS: HEPARIN NA (PORCINE) 5,000 UNITS/ML 1ML VIAL SQ SCH ×2 (06:41→14:49)
[2017-08-15] MEDS: FUROSEMIDE 40 MG TABLET (FP) PO SCH ×2 (06:42→14:49)
[2017-08-15] MEDS: LEVOTHYROXINE NA 50 MCG TABLET (FP) PO SCH (06:43)
[2017-08-15] MEDS ORDERED: INSULIN (NOVOLOG) ASPART 100 UNITS/ML 10ML VIAL ONE (06:49)
[2017-08-15] MEDS: ALBUTEROL SO4 2.5/IPRATROPIUM 0.5 INH SOL 3 ML VIAL.NEB. NEB SCH ×3 (07:20→15:52)
[2017-08-15 07:52] LABS: BASO % 1.5 % (0-2.0); EOS % 0.8 % (0-4.5); HEMATOCRIT 34.4 % (32.4-45.2); HEMOGLOBIN 11.3 GM/dL (10.7-15.3); LYMPH % 39.6 % (8-40); MCH 30.6 pg (25.7-33.7); MCHC 32.8 g/dl (32.0-36.0); MEAN CELL VOLUME 93.5 fl (80-96); MEAN PLT VOLUME 8.3 fl (7.5-11.1); MONO % 7.2 % (3.8-10.2); NEUT % 50.9 % (42.8-82.8); PLATELET COUNT 309 K/MM3 (134-434); RBC 3.68 M/mm3 (3.60-5.2); RDW 14.5 % (11.6-15.6); WHITE BLOOD COUNT 8.1 K/mm3 (4.0-10.0)
[2017-08-15 08:17] LABS: ANION GAP 11 (8-16); BLOOD UREA NITROGEN 17 mg/dL (7-18); CALCIUM 8.9 mg/dL (8.5-10.1); CHLORIDE 106 mmol/L (98-107); CO2 26 mmol/L (21-32); CREATININE 1.1 mg/dL (0.55-1.02); GLUCOSE,RANDOM 147 mg/dL (74-106); POTASSIUM 3.8 mmol/L (3.5-5.1); SODIUM 143 mmol/L (136-145)
[2017-08-15] MEDS: HYDROXYCHLOROQUINE SO4 200 MG TABLET (FP) PO SCH (10:31)
[2017-08-15] MEDS: LOSARTAN POTASSIUM 50 MG TABLET (FP) PO SCH (10:31)
[2017-08-15] MEDS: BUDESONIDE/FORMETEROL FUMARATE 160/4.5 mcg INHALER IH SCH (10:32)
[2017-08-15] MEDS: methylPREDNISolone NA SUCC 40 MG/1 ML VIAL IVPUSH SCH (10:35)
--- NOTE | 2017-08-15 11:13 | PN ---
Progress Note (short form) - Note Progress Note: PULMONARY States breathing slightly improved. +nonproductive cough. Vital Signs Period Temp Pulse Resp BP Sys/Oconnell Pulse Ox Last 24 Hr 98.0 F-99.8 F 66-85 18-20 126-137/62-68 97 Gen: NAD at rest Heart: RRR Lung: distant breath sounds, no wheezes Abd: soft, nontender Ext: no edema CBC, BMP 08/15/17 07:10 08/15/17 07:10 Active Medications Albuterol Sulfate (Ventolin 0.083% Nebulizer Soln -) 1 amp NEB Q8H PRN PRN Reason: SHORT OF BREATH/WHEEZING Last Admin: 08/15/17 05:00 Dose: 1 amp Albuterol/Ipratropium (Duoneb -) 1 amp NEB RQID [facility] Last Admin: 08/15/17 07:20 Dose: 1 amp Atorvastatin Calcium (Lipitor -) 10 mg PO HS [facility] Last Admin: 08/14/17 21:19 Dose: 10 mg Budesonide/Formoterol Fumarate (Symbicort 160/4.5mcg -) 2 puff IH BID [facility] Last Admin: 08/15/17 10:32 Dose: 2 puff Carbamazepine (Tegretol Xr -) 300 mg PO BID [facility] Last Admin: 08/15/17 10:33 Dose: 300 mg Furosemide (Lasix -) 40 mg PO BID@0600,1400 [facility] Last Admin: 08/15/17 06:42 Dose: 40 mg Heparin Sodium (Porcine) (Heparin -) 5,000 unit SQ TID [facility] Last Admin: 08/15/17 06:41 Dose: 5,000 unit Hydroxychloroquine Sulfate (Plaquenil -) 200 mg PO BID [facility] Last Admin: 08/15/17 10:31 Dose: 200 mg Insulin Aspart (Novolog Vial Sliding Scale -) 1 vial SQ ACHS [facility]; Protocol Last Admin: 08/15/17 06:41 Dose: 2 units Insulin Detemir (Levemir Vial) 32 units SQ AM [facility] Last Admin: 08/15/17 06:41 Dose: 32 units Levothyroxine Sodium (Synthroid -) 50 mcg PO 0700 [facility] Last Admin: 08/15/17 06:43 Dose: 50 mcg Losartan Potassium (Cozaar -) 50 mg PO DAILY [facility] Last Admin: 08/15/17 10:31 Dose: 50 mg Methotrexate (Mexate -) 12.5 mg PO We@0730 [facility] Methylprednisolone Sodium Succinate (Solu-Medrol -) 40 mg IVPUSH DAILY [facility] Last Admin: 08/15/17 10:35 Dose: 40 mg Montelukast Sodium (Singulair -) 10 mg PO [facility] Last Admin: 08/14/17 21:19 Dose: 10 mg Sertraline HCl (Zoloft -) 100 mg PO [facility] Last Admin: 08/14/17 21:19 Dose: 100 mg A/P Acute on Chronic Hypoxic Respiratory Failure Acute COPD Exacerbation Lupus CAD HTN DM DANY CKD - can change steroids to PO prednisone and taper back to baseline dose as outpt - inhaled bronchodilators - O2 to keep SpO2 >90% - auto-PAP at night - DVT prophylaxis
[2017-08-15 12:14] VITALS: TEMP 97.5
[2017-08-15 13:43] VITALS: PULSE 88
--- NOTE | 2017-08-15 15:15 | PN ---
Teaching Attending Note Name of Resident: Jose Connelly ATTENDING PHYSICIAN STATEMENT I saw and evaluated the patient. I reviewed the resident's note and discussed the case with the resident. I agree with the resident's findings and plan as documented. SUBJECTIVE: No fever or chills. stable breathing . OBJECTIVE: NAD , round face, central obesity, buffalo hump CV: RRR Lungs: no wheezing , good air entry . Ext: no edema or erythema ASSESSMENT AND PLAN: 62 y/o lady with CAD, D CHF, COPD , on 3 L of o2, DANY on CPAP , SLE , HTN, hypothyroidism, seizure, gastric banding , Morbid obesity who presented with SOB , and was found to have COPD exacerbation 1- Acute COPD exacerbation: - start prednisone taper ( slow ) - no PNA - cont Nebs - symbicort - cont home CPAP - d/w dr. Vasquez, PCP prophylaxis is not indicated if chronic prednisone dose is < 20 daily 2- CAD, h/o CHF cont losartan , ASA and lasix 3- seizure: cont meds 4- h/o Lupus : cont meds 5- Dm : levemir at 33 an [facility] home . d/w Dr. Vasquez
[2017-08-15 20:32] VITALS: BP 156/92
--- NOTE | 2017-08-15 21:06 | DS ---
Physical Exam: SUBJECTIVE: Patient seen and examined at bedside. Continues to complain of difficulty breathing and cough but speaking and breathing normally without excess effort on 3L NC. OBJECTIVE: Vital Signs Period Temp Pulse Resp BP Sys/Oconnell Pulse Ox Last 24 Hr 97.5 F-98.4 F 66-98 20-20 106-156/45-92 94-97 PHYSICAL EXAM GENERAL: The patient is awake, alert, and fully oriented, in no acute distress. HEAD: Normal with no signs of trauma. EYES: PERRL, extraocular movements intact, sclera anicteric, conjunctiva clear. ENT: moist mucous membranes NECK: Trachea midline, full range of motion, supple. LUNGS: Good air entry bilateral, scant wheezing, prolonged expiratory phase HEART: RRR no m/r/g ABDOMEN: Soft, nontender, nondistended, normoactive bowel sounds, no guarding, no rebound, no hepatosplenomegaly, no masses. EXTREMITIES: 2+ pulses, warm, well-perfused, no edema. NEUROLOGICAL: Cranial nerves II through XII grossly intact. Normal speech, gait not observed. PSYCH: Normal mood, normal affect. SKIN: Warm, dry, normal turgor, no rashes or lesions noted. LABS Laboratory Results - last 24 hr 08/14/17 08/15/17 08/15/17 20:48 05:32 07:10 WBC 8.1 RBC 3.68 Hgb 11.3 Hct 34.4 MCV 93.5 MCH 30.6 MCHC 32.8 RDW 14.5 Plt Count 309 MPV 8.3 Absolute Neuts (auto) 4.1 Neutrophils % 50.9 D Lymphocytes % 39.6 D Monocytes % 7.2 D Eosinophils % 0.8 D Basophils % 1.5 Nucleated RBC % 0 Sodium Potassium Chloride Carbon Dioxide Anion Gap BUN Creatinine Creat Clearance w eGFR POC Glucometer 255 160 Random Glucose Calcium 08/15/17 08/15/17 08/15/17 07:10 11:17 16:22 WBC RBC Hgb Hct MCV MCH MCHC RDW Plt Count MPV Absolute Neuts (auto) Neutrophils % Lymphocytes % Monocytes % Eosinophils % Basophils % Nucleated RBC % Sodium 143 Potassium 3.8 Chloride 106 Carbon Dioxide 26 Anion Gap 11 BUN 17 Creatinine 1.1 H Creat Clearance w eGFR 50.50 POC Glucometer 387 312 Random Glucose 147 H Calcium 8.9 HOSPITAL COURSE: Date of Admission:08/13/17 Patient w/ PMHx COPD on 3L NC and 10mg prednisone daily at baseline admitted for COPD exacerbation after sick contact in [facility] during the previous week. Given Solumedrol 125 and duonebs in ED and admitted to medicine floor. Remained afebrile without white count throughout hospital course. Provided with home COPD regimen minus prednisone, maintained on 40mg solumedrol daily. Oxygen saturation remained 95+ on 3L NC (home oxygen level) throughout. On final day of hospitalization evaluated PT for safety to discharge home, and by respiratory therapy for confirmation of O2 saturation pre- and post-ambulation. Discharged home with instructions for conversion to oral steroids and slow taper down to 10mg for maintenance. Referred for 1 week outpatient followup with crown wheel assembler Dr. Hyde and PCP Dr. Hernandez. Date of Discharge: 08/15/17 Minutes to complete discharge: 30 Discharge Summary Reason For Visit: CHRONIC OBSTRUCTION PULMONARY DISEASE WITH ACUTE Condition: Improved - Instructions Diet, Activity, Other Instructions: You were admitted for COPD exacerbation. You were treated with medications to improve your respiratory function, which has improved to your baseline during this hospitalization. Referrals You require outpatient follow-up with your primary care provider, Dr. Hernandez. You also require follow up with your crown wheel assembler, Dr. Hyde. We have made referrals to both of them. Please arrange an appointment with both providers within one week of discharge. Medical Recommendations: you require a slow taper of steroids upon returning home. Please take the following: Dose Days 40mg 1-2 35mg 3-4 30mg 5-6 25mg 7-8 20mg 9-10 15mg 11-12 10mg 13 and continue at 10mg daily every day after Please take all other home medications as prescribed when you are discharged. If you experience any worsening shortness of breath, painful breathing, labored breathing, worsening cough, or any new symptom please come to the emergency department immediately. Referrals: Goran Hernandez MD [Primary Care Provider] - 1 Week Morgan Hyde MD [Staff Physician] - 1 Week Disposition: HOME - Home Medications Comprehensive Discharge Medication List: Ambulatory Orders Albuterol Sulfate [Proair Hfa] 1 puff IH Q4H PRN 03/31/17 Atorvastatin Ca [Lipitor] 10 mg PO HS 03/31/17 Biotin 5,000 mcg PO DAILY 03/31/17 Budesonide/Formeterol Fumarate [SYMBICORT 160/4.5mcg -] 2 inh PO BID 03/31/17 Carbamazepine [Carbamazepine ER] 300 mg PO BID 03/31/17 Exenatide [Byetta] 10 mcg SQ BID 03/31/17 Glipizide [Glipizide Xl] 10 mg PO BID 03/31/17 Hydroxychloroquine So4 [Plaquenil -] 200 mg PO BID 03/31/17 Levothyroxine [Synthroid -] 50 mcg PO ASDIR 03/31/17 Losartan Potassium 50 mg PO DAILY 03/31/17 Montelukast Na [Singulair -] 10 mg PO HS 03/31/17 [place]-3 Fatty Acids [[place]-3] 1,000 mg PO DAILY 03/31/17 Pramipexole Dihydrochloride [Mirapex -] 0.5 mg PO BID 03/31/17 Sertraline HCl 100 mg PO HS 03/31/17 Tiotropium [place] [Spiriva] 1 inh PO DAILY 03/31/17 Topiramate 100 mg PO BID 03/31/17 metFORMIN HCL [Metformin HCl] 500 mg PO BID 03/31/17 Insulin Lispro [Humalog] 0 unit SQ ASDIR 04/25/17 Methotrexate [Mexate -] 12.5 mg PO We@0730 tablet 05/04/17 Pen Needle, Diabetic [Insulin Pen Needle] 1 each MC AM #30 dis.needle 05/04/17 Furosemide [Lasix -] 40 mg PO BID@0600,1400 #60 tablet 06/27/17 Insulin (Levemir) [Levemir Vial] 32 units SQ AM 08/14/17 Prednisone See Taper PO DAILY #35 tablet 08/15/17 This patient is new to me today: No Emergency Visit: No Critical Care patient: No - Discharge Referral Referred to [facility] No Physician Referral: Goran Heard MD ([facility]), Morgan Hyde MD (Pulm)
[2017-08-17] MEDS ORDERED: METHOTREXATE 2.5 MG TABLET PO SCH (07:30)
== END 2017-08-15 20:50 | disposition home or self-care (01) ==
LOC: JER 15:52 → JERBED 22:18 → J6S 08-14 00:21
PROVIDERS: ADMIT Internal Medicine; ATTEND Internal Medicine
PROC: 3E023GC Introduction of Other Therapeutic Substance into Muscle, Percutaneous Approach (ICD-10-PCS; principal; 2017-08-13)
PROC: 3E023GC Introduction of Other Therapeutic Substance into Muscle, Percutaneous Approach (ICD-10-PCS; 2017-08-13)
PROC: 3E013VG Introduction of Insulin into Subcutaneous Tissue, Percutaneous Approach (ICD-10-PCS; 2017-08-13)
PROC: 3E0333Z Introduction of Anti-inflammatory into Peripheral Vein, Percutaneous Approach (ICD-10-PCS; 2017-08-13)
PROC: 3E0F7GC Introduction of Other Therapeutic Substance into Respiratory Tract, Via Natural or Artificial Opening (ICD-10-PCS; 2017-08-13)
PROC: 3E0F7GC Introduction of Other Therapeutic Substance into Respiratory Tract, Via Natural or Artificial Opening (ICD-10-PCS; 2017-08-13)
PROC: 3E0F7GC Introduction of Other Therapeutic Substance into Respiratory Tract, Via Natural or Artificial Opening (ICD-10-PCS; 2017-08-13)
PROC: 3E0F7GC Introduction of Other Therapeutic Substance into Respiratory Tract, Via Natural or Artificial Opening (ICD-10-PCS; 2017-08-13)
PROC: 3E0F7GC Introduction of Other Therapeutic Substance into Respiratory Tract, Via Natural or Artificial Opening (ICD-10-PCS; 2017-08-13)
PROC: 3E0F7GC Introduction of Other Therapeutic Substance into Respiratory Tract, Via Natural or Artificial Opening (ICD-10-PCS; 2017-08-13)
PROC: 3E0F7GC Introduction of Other Therapeutic Substance into Respiratory Tract, Via Natural or Artificial Opening (ICD-10-PCS; 2017-08-13)
DX: J96.21 Acute and chronic respiratory failure with hypoxia (principal); J44.1 Chronic obstructive pulmonary disease with (acute) exacerbation; I25.10 Atherosclerotic heart disease of native coronary artery without angina pectoris; Z98.61 Coronary angioplasty status; I13.0 Hypertensive heart and chronic kidney disease with heart failure and stage 1 through stage 4 chronic kidney disease, or unspecified chronic kidney disease; N18.3 Chronic kidney disease, stage 3 (moderate); I50.30 Unspecified diastolic (congestive) heart failure; Z87.891 Personal history of nicotine dependence; E03.9 Hypothyroidism, unspecified; E11.9 Type 2 diabetes mellitus without complications; Z79.4 Long term (current) use of insulin; G40.909 Epilepsy, unspecified, not intractable, without status epilepticus; G47.33 Obstructive sleep apnea (adult) (pediatric); E66.01 Morbid (severe) obesity due to excess calories; Z68.42 Body mass index [BMI] 45.0-49.9, adult; Z99.81 Dependence on supplemental oxygen; Z98.84 Bariatric surgery status; Z96.641 Presence of right artificial hip joint; Z96.642 Presence of left artificial hip joint; Z88.0 Allergy status to penicillin; Z88.8 Allergy status to other drugs, medicaments and biological substances
CPT/HCPCS: 36415; 71046-TC-FY; 80048; 80053; 82962; 83880; 84484; 85025; 93005; 93010; 94640; 94761; 96372; 96374; 96376; 97116-GP; 97161-GP; 99284-25; G0378; J1644; J7620

== ENCOUNTER 2017-09-07 14:57 | Inpatient (IN) | payer OTHER, MEDICARE ==
--- NOTE | 2017-09-07 15:13 | PDOC ---
History of Present Illness - General Chief Complaint: Shortness of Breath Stated Complaint: COPD Time Seen by Provider: 09/07/17 15:13 - History of Present Illness Initial Comments: 62 year old female PMH of lupus, IDDM, asthma, COPD (3l home O2), hyperlipidemia, seizure disorder, and morbid obesity presenting with worsening shortness of breath over the last day. She went to see Dr. Alvarenga and he was concerned enough to send her to the ER after an episode acute dyspnea during which she was slowly lowered to the floor and complained of anterior chest pain. She received one treatment in Dr. Alvarenga's office and one at home earlier with minor relief. She saw Dr. Wilson 10 days prior for her chronic leg swelling during which he gave her some compression stockings which has helped her tremendously. Her echo from 6 months ago demonstrates Her SOB is extremely exacerbated on exertion. Patient denies new/ productive cough, fevers, hemoptysis, new increased LE swelling, orthopnea, other symptoms. Denies recent ravel, extended immobility, previous history of clots, exogenous estrogen usage. 09/07/17 15:29 Past History - Past Medical History Allergies/Adverse Reactions: Allergies Allergy/AdvReac Type Severity Reaction Status Date / Time gabapentin [From Neurontin] Allergy PALPITATIONS, Verified 08/13/17 16:01 PASSES OUT Penicillins Allergy TONGUE Verified 08/13/17 16:01 Swelling phenytoin sodium Allergy diarrhea/vo Verified 08/13/17 16:01 [From Dilantin] miting phenytoin sodium extended Allergy Verified 08/13/17 16:01 [From Dilantin] theophylline [Theophylline] Allergy diarrhea,SE Verified 08/13/17 16:01 IZURES fresh garlic Allergy Uncoded 08/13/17 16:01 Home Medications: Ambulatory Orders Albuterol Sulfate [Proair Hfa] 1 puff IH Q4H PRN 03/31/17 Atorvastatin Ca [Lipitor] 10 mg PO HS 03/31/17 Biotin 5,000 mcg PO DAILY 03/31/17 Budesonide/Formeterol Fumarate [SYMBICORT 160/4.5mcg -] 2 inh PO BID 03/31/17 Carbamazepine [Carbamazepine ER] 300 mg PO BID 03/31/17 Glipizide [Glipizide Xl] 10 mg PO BID 03/31/17 Hydroxychloroquine So4 [Plaquenil -] 200 mg PO BID 03/31/17 Levothyroxine [Synthroid -] 50 mcg PO ASDIR 03/31/17 Losartan Potassium 50 mg PO DAILY 03/31/17 Montelukast Na [Singulair -] 10 mg PO HS 03/31/17 [place]-3 Fatty Acids [[place]-3] 1,000 mg PO DAILY 03/31/17 Pramipexole Dihydrochloride [Mirapex -] 0.5 mg PO BID 03/31/17 Sertraline HCl 100 mg PO HS 03/31/17 Tiotropium [place] [Spiriva] 1 inh PO DAILY 03/31/17 Topiramate 100 mg PO BID 03/31/17 Insulin Lispro [Humalog] 0 unit SQ ASDIR 04/25/17 Methotrexate [Mexate -] 12.5 mg PO We@0730 tablet 05/04/17 Pen Needle, Diabetic [Insulin Pen Needle] 1 each MC AM #30 dis.needle 05/04/17 Furosemide [Lasix -] 40 mg PO BID@0600,1400 #60 tablet 06/27/17 Insulin (Levemir) [Levemir Vial] 32 units SQ AM 08/14/17 Prednisone See Taper PO DAILY #35 tablet 08/15/17 Furosemide [Lasix] 80 mg PO BID 09/10/17 Anemia: No Asthma: Yes Cancer: No Cardiac Disorders: Yes (CAD) CVA: No COPD: Yes (uses 02 at 3l nasal cannula) CHF: No DVT: No Dementia: No Diabetes: Yes (iddm) GI Disorders: Yes (REFLUX) Disorders: No HTN: Yes Hypercholesterolemia: Yes Liver Disease: No Seizures: Yes (NO RECENT [id number]) Thyroid Disease: Yes (HYPO) - Surgical History Abdominal Surgery: Yes (lapband) Appendectomy: No Cardiac Surgery: No Cholecystectomy: Yes GI Surgery: Yes (LAP sx 11/23/16) Lung Surgery: No Neurologic Surgery: No Orthopedic Surgery: Yes (BILAT HIP REPLACEMENT/BILAT KNEE SX) - Immunization History Immunization Up to Date: Yes - Suicide/Smoking/Psychosocial Hx Smoking Status: Yes Smoking History: Former smoker Have you smoked in the past 12 months: No Number of Cigarettes Smoked Daily: 10 If you are a former smoker, when did you quit?: 20 years ago Cigars Per Day: 0 Hx Alcohol Use: No Drug/Substance Use Hx: No Substance Use Type: None Hx Substance Use Treatment: No Review of Systems - Review of Systems Constitutional: No: Chills, Diaphoresis, Fever HEENTM: No: Eye Pain, Blurred Vision, Tearing Respiratory: Yes: Cough, Shortness of Breath, SOB with Exertion. No: Wheezing, Productive cough Cardiac (ROS): No: Chest Pain, Edema, Irregular Heart Rate ABD/GI: Yes: Nausea, Vomiting. No: Diarrhea : No: Burning, Dysuria, Discharge Musculoskeletal: No: Back Pain, Joint Pain Integumentary: Yes: Flushing. No: Bruising, Change in Color Neurological: No: Headache, Numbness, Paresthesia Psychiatric: No: Anxiety, Depression Hematologic/Lymphatic: No: Blood Clots, Easy Bleeding *Physical Exam - Physical Exam General Appearance: Yes: Nourished, Appropriately Dressed, Apparent Distress, Mild Distress HEENT: positive: EOMI, SHANDRA, Normal ENT Inspection, Normal Voice Neck: positive: Trachea midline, Normal Thyroid, Supple. negative: Tender, Rigid Respiratory/Chest: positive: Lungs Clear, Respiratory Distress. negative: Chest Tender, Normal Breath Sounds (Mild bilateral air movememnt deficiency. ), Accessory Muscle Use Cardiovascular: positive: Regular Rhythm, Regular Rate Gastrointestinal/Abdominal: positive: Normal Bowel Sounds, Flat, Soft. negative : Tender Lymphatic: negative: Adenopathy, Tenderness Musculoskeletal: positive: Normal Inspection. negative: Decreased Range of Motion Extremity: positive: Normal Capillary Refill, Normal Inspection, Normal Range of Motion. negative: Tender Integumentary: positive: Normal Color, Dry, Warm Neurologic: positive: Fully Oriented, Alert, Normal Mood/Affect, Normal Response , Motor Strength 5/5 ED Treatment Course - LABORATORY CBC & Chemistry Diagram: 09/09/17 08:22 09/09/17 08:22 Medical Decision Making - Medical Decision Making 62 year old female with PMH of COPD presenting with increased O2 requirement concerning for COPD exacerbation. Patient given nebs x2 and given steroids. Respiratory status improved but still slightly constricted so patient admitted to medicine for COPD exacerbation. *DC/Admit/Observation/Transfer Diagnosis at time of Disposition: COPD exacerbation - Discharge Dispostion Condition at time of disposition: Fair - Referrals - Patient Instructions - Post Discharge Activity
[2017-09-07 15:15] VITALS: BMI 48.8
[2017-09-07] MEDS ORDERED: ALBUTEROL SO4 0.083% IH SOL 2.5 MG/3 ML VIAL.NEB. NEB PRN ×2 (15:39→17:58)
[2017-09-07] MEDS ORDERED: methylPREDNISolone NA SUCC 125 MG/2 ML VIAL IVPB ONE (15:48)
--- NOTE | 2017-09-07 16:21 | PDOC ---
Attending Attestation - HPI HPI: 09/07/17 17:03 The patient is a 62-year-old female, with a past medical history of IDDM, COPD ( on 3L of O2 at home), asthma, hyperlipidemia, lupus, seizure disorder, and morbid obesity, who presents to the ED with progressively worsening shortness of breath. The patient states that she was at her Bakery Worker's office (Dr. Hyde) today and reports feeling short of breath. The patient received multiple treatments while in the office with no relief of her symptoms. The patient was sent to the ED for further evaluation. On exam, the patient reports experiencing nonproductive cough, chest tightness, and 3-4 days of vomiting; no blood noted. The patient states that she has been vomiting after she eats and it feels as if her food is getting stuck in her chest. Patient has an upcoming appointment with her Fire And Safety Helper Dr. Laboy on 09/15/17. The patient denies any fever, chills, diarrhea, or abdominal pain. Denies any chest pain. Allergies: gabapentin, penicillins, phenytoin sodium. Surgical History: lapband surgery, cholecystectomy, bilateral hip and knee replacements. Social History: Former smoker. PCP: Dr. Hernandez - Physicial Exam PE: 09/07/17 17:47 GENERAL: Awake, alert, and fully oriented, in no acute distress HEAD: No signs of trauma EYES: PERRLA, EOMI, sclera anicteric, conjunctiva clear ENT: Auricles normal inspection, hearing grossly normal, nares patent, oropharynx clear without exudates. Moist mucosa NECK: Normal ROM, supple, no lymphadenopathy, JVD, or masses LUNGS: (+)Severely diminished. No wheezes, and no crackles HEART: Regular rate and rhythm, normal S1 and S2, no murmurs, rubs or gallops ABDOMEN: (+)Belly is obese. Soft, nontender, normoactive bowel sounds. No guarding, no rebound. No masses EXTREMITIES: (+)1+ pitting edema in bilateral lower extremities. Normal range of motion. No clubbing or cyanosis. No cords, erythema, or tenderness NEUROLOGICAL: Cranial nerves II through XII grossly intact. Normal speech, normal gait SKIN: Warm, Dry, normal turgor, no rashes or lesions noted <Serena Joyner - Last Filed: 09/07/17 17:45> - Resident Resident Name: Krzysztof Oseguera - ED Attending Attestation I have performed the following: I have examined & evaluated the patient, The case was reviewed & discussed with the resident, I agree w/resident's findings & plan, Exceptions are as noted - Medical Decision Making 09/07/17 16:21 I, Dr. Kaye Avalos, DO, attest that this document has been prepared under my direction and personally reviewed by me in its entirety. I further attest, that it accurately reflects all work, treatment, procedures and medical decision -making performed by me. 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 Laboy 09/07/17 18:47 trop and BNP negative will place in obs 09/07/17 19:[address] Acuna who accepts the patient to service <Kaye Avalos - Last Filed: 09/07/17 19:48> Discharge Disposition - Discharge Dispostion Last Admission D/C Date: 06/27/17 Decision to Admit order: Yes <Kaye Avalos - Last Filed: 09/07/17 19:48> - Diagnosis COPD exacerbation - Discharge Dispostion Condition at time of disposition: Fair - Referrals Referrals: Goran Hernandez MD [Primary Care Provider] - - Patient Instructions - Post Discharge Activity Heart Score/ECG Review - ECG Intrepretation Comment:: 09/07/17 17:06 sinus at 88, LVH, nl axis, nl interval, no acute st/t wave findings <Kaye Avalos - Last Filed: 09/07/17 19:48> Attestations - Attestations 09/07/17 17:49 Documentation prepared by Serena Joyner, acting as medical accounting clerk for Kaye Avalos DO. <Serena Joyner - Last Filed: 09/07/17 17:45>
[2017-09-07] MEDS ORDERED: SODIUM CHLORIDE 0.9% 1000 ML INFUS.BAG IV ONE (16:52)
[2017-09-07] MEDS ORDERED: ONDANSETRON 4 MG/2 ML VIAL IVPUSH ONE (16:52)
[2017-09-07] MEDS ORDERED: FAMOTIDINE 20 MG/50 ML IVPB 20 MG/50 ML MG IVPB ONE ×2 (17:00→17:14)
[2017-09-07 17:06] LABS: URINE APPEARANCE CLEAR; URINE BILIRUBIN NEGATIVE (<2.0 mg/dL); URINE COLOR LTYELLOW; URINE GLUCOSE (UA) NEGATIVE (NEGATIVE); URINE KETONE NEGATIVE (NEGATIVE); URINE LEUK ESTERASE NEGATIVE (NEGATIVE); URINE NITRITE NEGATIVE (NEGATIVE); URINE PROTEIN NEGATIVE (NEGATIVE); URINE UROBILINOGEN NEGATIVE mg/dL (0.2-1.0)
[2017-09-07] MEDS ORDERED: ONDANSETRON 4 MG/2 ML VIAL ONE (17:13)
[2017-09-07] MEDS ORDERED: methylPREDNISolone NA SUCC 40 MG/1 ML VIAL ONE (17:14)
[2017-09-07 17:31] LABS: BASO % 0.8 % (0-2.0); EOS % 0.1 % (0-4.5); HEMATOCRIT 35.2 % (32.4-45.2); HEMOGLOBIN 11.4 GM/dL (10.7-15.3); MCH 29.9 pg (25.7-33.7); MCHC 32.4 g/dl (32.0-36.0); MEAN CELL VOLUME 92.1 fl (80-96); MONO % 4.8 % (3.8-10.2); NEUT % 79.3 % (42.8-82.8); PLATELET COUNT 363 K/MM3 (134-434); RBC 3.83 M/mm3 (3.60-5.2); RDW 15.4 % (11.6-15.6); WHITE BLOOD COUNT 9.3 K/mm3 (4.0-10.0)
[2017-09-07 17:38] LABS: ALBUMIN 3.6 g/dl (3.4-5.0); ANION GAP 12 (8-16); BILIRUBIN,TOTAL 0.2 mg/dL (0.2-1.0); BLOOD UREA NITROGEN 15 mg/dL (7-18); CALCIUM 8.8 mg/dL (8.5-10.1); CHLORIDE 104 mmol/L (98-107); CO2 27 mmol/L (21-32); CREATININE 1.3 mg/dL (0.55-1.02); GLUCOSE,RANDOM 172 mg/dL (74-106); POTASSIUM 3.4 mmol/L (3.5-5.1); SGOT/AST 26 U/L (15-37); SGPT/ALT 38 U/L (12-78); SODIUM 143 mmol/L (136-145); TOT PROT 7.3 g/dl (6.4-8.2)
[2017-09-07 17:40] LABS: ALK PHOS 138 U/L (45-117); N-TERMINAL BNP 98.21 pg/ml (5-125)
--- NOTE | 2017-09-07 20:22 | PN ---
Teaching Attending Note Name of Resident: Alban Garcia ATTENDING PHYSICIAN STATEMENT I saw and evaluated the patient. I reviewed the resident's note and discussed the case with the resident. I agree with the resident's findings and plan as documented. SUBJECTIVE: Patient 62 y/o F presented to ED c/o SOB. PMH as documented in H&P OBJECTIVE: GEN: A&Ox3 in moderate distress, afebrile, obese HEENT: NC, PERRLA, EOMI CVS: RRR Lungs: CTA, no wheezing Abd: Soft, nontender, BS+, no guarding or rebound. Ext: nl ROM, pulse 2+, no edema CBCD WBC 9.3 K/mm3 (4.0-10.0) 09/07/17 16:40 RBC 3.83 M/mm3 (3.60-5.2) 09/07/17 16:40 Hgb 11.4 GM/dL (10.7-15.3) 09/07/17 16:40 Hct 35.2 % (32.4-45.2) 09/07/17 16:40 MCV 92.1 fl (80-96) 09/07/17 16:40 MCHC 32.4 g/dl (32.0-36.0) 09/07/17 16:40 RDW 15.4 % (11.6-15.6) 09/07/17 16:40 Plt Count 363 K/MM3 (134-434) 09/07/17 16:40 MPV 8.0 fl (7.5-11.1) 09/07/17 16:40 CMP Sodium 143 mmol/L (136-145) 09/07/17 16:40 Potassium 3.4 mmol/L (3.5-5.1) L 09/07/17 16:40 Chloride 104 mmol/L (98-107) 09/07/17 16:40 Carbon Dioxide 27 mmol/L (21-32) 09/07/17 16:40 Anion Gap 12 (8-16) 09/07/17 16:40 BUN 15 mg/dL (7-18) 09/07/17 16:40 Creatinine 1.3 mg/dL (0.55-1.02) H 09/07/17 16:40 Creat Clearance w eGFR 41.64 (>60) 07/25/18 16:40 Calcium 8.8 mg/dL (8.5-10.1) 09/07/17 16:40 Total Bilirubin 0.2 mg/dL (0.2-1.0) 09/07/17 16:40 AST 26 U/L (15-37) 09/07/17 16:40 ALT 38 U/L (12-78) 09/07/17 16:40 Alkaline Phosphatase 138 U/L (45-117) H D 09/07/17 16:40 Total Protein 7.3 g/dl (6.4-8.2) 09/07/17 16:40 Albumin 3.6 g/dl (3.4-5.0) 09/07/17 16:40 ASSESSMENT AND PLAN: COPD exacerbation Nebs q6h Solumedrol 40 mg daily continue home medications DVT prophylaxis
[2017-09-07] MEDS ORDERED: HEMOQUE TEST 1 EACH EACH ONE (22:44)
[2017-09-08] MEDS ORDERED: POTASSIUM CHLORIDE TABS 20 MEQ TABLET.ER (FP) PO ONE ×2 (01:05→06:45)
[2017-09-08] MEDS ORDERED: ALBUTEROL SO4 2.5/IPRATROPIUM 0.5 INH SOL 3 ML VIAL.NEB. NEB SCH (01:15)
--- NOTE | 2017-09-08 04:42 | HP ---
CHIEF COMPLAINT: PCP: HISTORY OF PRESENT ILLNESS: 62 yo F PMH of lupus, IDDM, asthma, COPD (3l home O2), HLD, seizure disorder, morbid obesity, and multiple admissions for COPD exacerbations p/w worsening SOB x1d. She went to see Dr. Gibbs today and in the office had an episode of acute dyspnea during which she was slowly lowered to the floor and complained of anterior chest pain that was constant, sharp in nature and nonradiating. Pt states however, that she always has this CP/has had it for over a year and that it has no relation to movement. She received one O2 treatment in Dr. Alvarenga's office and one at home earlier with minor relief. Dr. Gbibs was concerned for COPD exac and sent her to the ER. Pt has a hx of COPD exacerbation requiring multiple admissions, most recently in 08/13/17 where she had been around sick contact. At that time her COPD was ctl w/ solumedrol 40qd and she was discharged w/ 14 day prednisone taper to 10mg. Pt denies any fever, chills, abd pain, n/d, urinary sxs, recent travel, blood in stools, sick contacts. Of note, pt endorses nonproductive cough for today as well as had 2-3 days of vomiting over the weekend occurring only at night after she ate her food, says she felt like food was stuck in her chest/throat and then would throw up. These episodes have since resolved since tuesday 09/05 +2 pillow orthopnea ER course was notable for: (1) pepcid, zofran, fluids, solumedrol 125, 3L O2 NC, pt sxs improved (2) (3) Recent Travel: PAST MEDICAL HISTORY: echo 04/03 - nl, EF 64% natty 4 b/l hip and knee replacement lap band surgery PAST SURGICAL HISTORY: Social History: Smoking: quit 21 yr ago Alcohol: denies Drugs: denies Family History: denies Allergies gabapentin [From Neurontin] Allergy (Verified 08/13/17 16:01) PALPITATIONS, PASSES OUT Penicillins Allergy (Verified 08/13/17 16:01) TONGUE Swelling phenytoin sodium [From Dilantin] Allergy (Verified 08/13/17 16:01) diarrhea/vomiting phenytoin sodium extended [From Dilantin] Allergy (Verified 08/13/17 16:01) theophylline [Theophylline] Allergy (Verified 08/13/17 16:01) diarrhea,SEIZURES fresh garlic Allergy (Uncoded 08/13/17 16:01) HOME MEDICATIONS: Home Medications Medication Instructions Recorded Albuterol Sulfate [Proair Hfa] 1 puff IH Q4H PRN 03/31/17 Atorvastatin Ca [Lipitor] 10 mg PO HS 03/31/17 Biotin 5,000 mcg PO DAILY 03/31/17 Budesonide/Formeterol Fumarate 2 inh PO BID 03/31/17 [SYMBICORT 160/4.5mcg -] Carbamazepine [Carbamazepine ER] 300 mg PO BID 03/31/17 Glipizide [Glipizide Xl] 10 mg PO BID 03/31/17 Hydroxychloroquine So4 [Plaquenil 200 mg PO BID 03/31/17 -] Levothyroxine [Synthroid -] 50 mcg PO ASDIR 03/31/17 Losartan Potassium 50 mg PO DAILY 03/31/17 Montelukast Na [Singulair -] 10 mg PO HS 03/31/17 Buckner-3 Fatty Acids [Buckner-3] 1,000 mg PO DAILY 03/31/17 Pramipexole Dihydrochloride 0.5 mg PO BID 03/31/17 [Mirapex -] Sertraline HCl 100 mg PO HS 03/31/17 Tiotropium [place] [Spiriva] 1 inh PO DAILY 03/31/17 Topiramate 100 mg PO BID 03/31/17 Insulin Lispro [Humalog] 0 unit SQ ASDIR 04/25/17 Methotrexate [Mexate -] 12.5 mg PO We@0730 tablet 05/04/17 Pen Needle, Diabetic [Insulin Pen 1 each MC AM #30 dis.needle 05/04/17 Needle] Furosemide [Lasix -] 40 mg PO BID@0600,1400 #60 tablet 06/27/17 Insulin (Levemir) [Levemir Vial] 32 units SQ AM 08/14/17 Prednisone See Taper PO DAILY #35 tablet 08/15/17 REVIEW OF SYSTEMS reviewed in HPI PHYSICAL EXAMINATION Vital Signs - 24 hr 09/07/17 09/07/17 09/07/17 15:08 17:57 17:58 Temperature 98.2 F Pulse Rate 91 H 86 86 Pulse Rate [ Right Radial] Respiratory 20 Rate Blood Pressure 119/73 Blood Pressure [Right Arm] O2 Sat by Pulse 97 96 96 Oximetry (%) 09/07/17 09/07/17 09/08/17 19:52 22:00 02:00 Temperature 97.9 F 98.1 F Pulse Rate 80 Pulse Rate [ 70 61 Right Radial] Respiratory 18 18 Rate Blood Pressure 116/53 Blood Pressure 118/63 138/75 [Right Arm] O2 Sat by Pulse 98 97 Oximetry (%) GENERAL: Awake, alert, and fully oriented, in no acute distress on 3L O2 NC. Obese HEAD: NCAT EYES: PERRLA, extraocular movements intact, sclera anicteric, conjunctiva clear. No lid lag. EARS, NOSE, THROAT: nares patent, oropharynx clear without exudates. MMM NECK: Normal ROM, supple without lymphadenopathy, JVD, or masses. LUNGS: CTAB. No wheezes, and no crackles. No accessory muscle use. HEART: RRR, normal S1 and S2 without murmur, rub or gallop. TTP on sternum ABDOMEN: Soft, NTND +BS, no guarding, no rebound, no masses. MUSCULOSKELETAL: Normal range of motion at all joints. No bony deformities or tenderness. UPPER EXTREMITIES: 2+ pulses, warm, well-perfused. No cyanosis. No clubbing. No peripheral edema. LOWER EXTREMITIES: 2+ pulses, warm, well-perfused. No calf tenderness. Mild LE swelling no pitting edema. wearing compression stockings NEUROLOGICAL: Cranial nerves II-XII intact. Normal speech. SKIN: Warm, dry, normal turgor, no rashes or lesions noted, normal capillary refill. Laboratory Results - last 24 hr 09/07/17 09/07/17 09/07/17 16:40 16:40 16:40 WBC 9.3 RBC 3.83 Hgb 11.4 Hct 35.2 MCV 92.1 MCH 29.9 MCHC 32.4 RDW 15.4 Plt Count 363 MPV 8.0 Absolute Neuts (auto) 7.3 Neutrophils % 79.3 D Lymphocytes % 15.0 D Monocytes % 4.8 Eosinophils % 0.1 D Basophils % 0.8 Nucleated RBC % 0 Sodium 143 Potassium 3.4 L Chloride 104 Carbon Dioxide 27 Anion Gap 12 BUN 15 Creatinine 1.3 H Creat Clearance w eGFR 41.64 POC Glucometer Random Glucose 172 H Calcium 8.8 Total Bilirubin 0.2 AST 26 ALT 38 Alkaline Phosphatase 138 H D Creatine Kinase Creatine Kinase Index CK-MB (CK-2) Troponin I B-Natriuretic Peptide 98.21 Total Protein 7.3 Albumin 3.6 Lipase Urine Color Ltyellow Urine Appearance Clear Urine pH 6.0 Ur Specific [place] 1.008 Urine Protein Negative Urine Glucose (UA) Negative Urine Ketones Negative Urine Blood Negative Urine Nitrite Negative Urine Bilirubin Negative Urine Urobilinogen Negative Ur Leukocyte Esterase Negative 09/07/17 09/07/17 09/07/17 16:40 16:40 22:45 WBC RBC Hgb Hct MCV MCH MCHC RDW Plt Count MPV Absolute Neuts (auto) Neutrophils % Lymphocytes % Monocytes % Eosinophils % Basophils % Nucleated RBC % Sodium Potassium Chloride Carbon Dioxide Anion Gap BUN Creatinine Creat Clearance w eGFR POC Glucometer [phone] Random Glucose Calcium Total Bilirubin AST ALT Alkaline Phosphatase Creatine Kinase 179 Creatine Kinase Index 0.8 CK-MB (CK-2) 1.47 Troponin I < 0.02 B-Natriuretic Peptide Total Protein Albumin Lipase 144 Urine Color Urine Appearance Urine pH Ur Specific [place] Urine Protein Urine Glucose (UA) Urine Ketones Urine Blood Urine Nitrite Urine Bilirubin Urine Urobilinogen Ur Leukocyte Esterase ASSESSMENT/PLAN: 62 yo F PMH of lupus, IDDM, asthma, COPD (3l home O2), HLD, seizure disorder, morbid obesity, and multiple admissions for COPD exacerbations p/w worsening SOB x1d. COPD exacerbation - Precipitating factor is unclear. On 3L O2 at home and completed her prednisone taper to 10mg from last admission 1 mo ago. Patient is feeling better after initial therapy in the ER. Less likely to be CHF or PNA/ infx, pt has no JVD, pitting edema or crackles. Pt is afebrile w/ no white count , BNP is normal and CXR remains largely unchanged from prior admission. Pt's associated CP is unlikely to be cardiac in nature, pt has it all the time and PE was positive for sternal rub, trop neg, no acute EKG changes -Duoneb, Solumedrol 40 mg qd, symbicort, and Spiriva -3 L O2 NC maintain O2 sat 89-92% -CPAP at night, pt has her own. -Respiratory therapist Hypo K - 3.4 -one dose 40meq KCL PO -monitor BMP DM - -for now holding home lispro and glipizide -c/w home dose lantus and implement sliding scale insulin regimen. -BGM ACHS Obesity - -Will provide necessary assistance, counseling and positive reinforcement to facilitate weight loss. -Consult network architect manager. HCM -c/w home dose meds for COPD, asthma, HTN, hypothyroid, HLD, seizure, CAD, CHF, SLE #FEN -no IV fluids at this time -replete lytes as needed -low sodium/fat/ diabetic diet #DVTppx SQH 5000u tid #Dispo -admit to tele -Full code case discussed with attending, Dr. Armand Garcia MD PGY1 Visit type - Emergency Visit Emergency Visit: Yes ED Registration Date: 09/08/17 Care time: The patient presented to the Emergency Department on the above date and was hospitalized for further evaluation of their emergent condition. - New Patient This patient is new to me today: Yes Date on this admission: 09/08/17 - Critical Care Critical Care patient: No Hospitalist Screening - Colonoscopy Questionnaire Colonoscopy Questionnaire: Colonoscopy Questionnaire - Patient: 50 - 75 years old and never had a screening colonoscopy: Unknown History of colon or rectal polyps, or CA: Unknown History of IBD, Crohn's disease or UC: Unknown History of abdominal radiation therapy as a child: Unknown - Relative: 1 with colon or rectal CA, or polyps at age 60 or younger: Unknown Colon or rectal CA diagnosed at age 45 or younger: Unknown Multiple relatives with colon or rectal CA: Unknown - Outcome: Screening Result: Negative Screen
[2017-09-08] MEDS: ALBUTEROL SO4 2.5/IPRATROPIUM 0.5 INH SOL 3 ML VIAL.NEB. NEB SCH ×2 (06:45→09:29)
[2017-09-08] MEDS: FUROSEMIDE 40 MG TABLET (FP) PO SCH ×2 (06:52→13:43)
[2017-09-08] MEDS: LEVOTHYROXINE NA 50 MCG TABLET (FP) PO SCH (06:52)
[2017-09-08] MEDS: HEPARIN NA (PORCINE) 5,000 UNITS/ML 1ML VIAL SQ SCH ×3 (06:52→21:31)
[2017-09-08] MEDS: INSULIN SLIDING SCALE (NOVOLOG) 1 VIAL SQ SCH ×4 (06:53→21:34)
[2017-09-08] MEDS: INSULIN (LEVEMIR) 100 UNITS/ML UNITS SQ SCH (06:53)
[2017-09-08 08:14] LABS: BASO % 1.1 % (0-2.0); EOS % 0.2 % (0-4.5); HEMATOCRIT 35.8 % (32.4-45.2); HEMOGLOBIN 11.7 GM/dL (10.7-15.3); LYMPH % 26.1 % (8-40); MCH 30.4 pg (25.7-33.7); MCHC 32.8 g/dl (32.0-36.0); MEAN CELL VOLUME 92.6 fl (80-96); MEAN PLT VOLUME 8.1 fl (7.5-11.1); MONO % 7.3 % (3.8-10.2); NEUT % 65.3 % (42.8-82.8); PLATELET COUNT 336 K/MM3 (134-434); RBC 3.86 M/mm3 (3.60-5.2); RDW 14.9 % (11.6-15.6); WHITE BLOOD COUNT 10.8 K/mm3 (4.0-10.0)
[2017-09-08 08:30] LABS: ALBUMIN 3.4 g/dl (3.4-5.0); ALK PHOS 143 U/L (45-117); ANION GAP 8 (8-16); BILIRUBIN,TOTAL 0.2 mg/dL (0.2-1.0); BLOOD UREA NITROGEN 19 mg/dL (7-18); CALCIUM 9.4 mg/dL (8.5-10.1); CHLORIDE 103 mmol/L (98-107); CO2 30 mmol/L (21-32); CREATININE 1.3 mg/dL (0.55-1.02); GLUCOSE,RANDOM 180 mg/dL (74-106); MAGNESIUM 2.2 mg/dL (1.8-2.4); PHOSPHOROUS 4.2 mg/dL (2.5-4.9); POTASSIUM 3.8 mmol/L (3.5-5.1); SGOT/AST 18 U/L (15-37); SGPT/ALT 38 U/L (12-78); SODIUM 141 mmol/L (136-145); TOT PROT 7.1 g/dl (6.4-8.2)
[2017-09-08] MEDS ORDERED: CEFTRIAXONE 2,000 MG in DEXTROSE 5%-WATER - 50 ML IVPB ONE (09:48)
[2017-09-08] MEDS ORDERED: LOSARTAN POTASSIUM 50 MG TABLET (FP) PO SCH (10:00)
[2017-09-08] MEDS ORDERED: PATIENT'S OWN MEDICATION (NON-FORMULARY) (Biotin [Biotin] 5,000 MCG) PO SCH (10:00)
[2017-09-08] MEDS ORDERED: TIOTROPIUM BROMIDE 18 MCG CAPSULES IH SCH (10:00)
[2017-09-08] MEDS ORDERED: PATIENT'S OWN MEDICATION (NON-FORMULARY) (Omega-3 Fatty Acids [Omega-3] 1,000 MG) PO SCH (10:00)
[2017-09-08] MEDS ORDERED: methylPREDNISolone NA SUCC 40 MG/1 ML VIAL IVPUSH SCH (10:00)
[2017-09-08] MEDS ORDERED: AZITHROMYCIN IVPB 500 MG in DEXTROSE 5%-WATER - 250 ML IVPB ONE (10:15)
[2017-09-08] MEDS: methylPREDNISolone NA SUCC 40 MG/1 ML VIAL IVPUSH SCH ×4 (10:26→21:22)
[2017-09-08] MEDS ORDERED: PT OWN MED DRAWER 7, Y5N ONE ×2 (10:32→15:46)
[2017-09-08] MEDS: PRAMIPEXOLE DIHYDROCHLORIDE 0.5 MG TABLET PO SCH ×2 (10:33→21:30)
[2017-09-08] MEDS: HYDROXYCHLOROQUINE SO4 200 MG TABLET (FP) PO SCH ×2 (10:33→21:37)
[2017-09-08] MEDS: TOPIRAMATE 100 MG TABLET PO SCH ×2 (10:33→21:31)
[2017-09-08] MEDS: BUDESONIDE/FORMETEROL FUMARATE 160/4.5 mcg INHALER IH SCH ×2 (10:33→21:27)
--- NOTE | 2017-09-08 11:13 | PN ---
Progress Note (short form) - Note Progress Note: PULMONARY CONSULTATION DICTATED 09/08/17 IMP ACUTE ON CHRONIC HYPOXEMIC RESPIRATORY FAILURE COPD EXACERBATION SLE CP LIKELY MUSCULOSKELETAL DANY ON AUTO-PAP DM HLD OBESITY H/O SEIZURES PLAN IV STEROIDS O2 INHALED BRONCHODILATORS DALIRESP AUTO-PAP HS DVT PROPHYLAXIS PULMONARY REHAB POST DISCHARGE DR DAI Problem List - Problems (1) Acute on chronic respiratory failure with hypoxemia Code(s): J96.21 - ACUTE AND CHRONIC RESPIRATORY FAILURE WITH HYPOXIA (2) Acute exacerbation of chronic obstructive pulmonary disease (COPD) Code(s): J44.1 - CHRONIC OBSTRUCTIVE PULMONARY DISEASE W (ACUTE) EXACERBATION (3) Shortness of breath Code(s): R06.02 - SHORTNESS OF BREATH (4) Hypertension Code(s): I10 - ESSENTIAL (PRIMARY) HYPERTENSION Qualifiers: Hypertension type: essential hypertension Qualified Code(s): I10 - Essential (primary) hypertension (5) SLE (systemic lupus erythematosus) Code(s): M32.9 - SYSTEMIC LUPUS ERYTHEMATOSUS, UNSPECIFIED (6) Seizure disorder Code(s): G40.909 - EPILEPSY, UNSP, NOT INTRACTABLE, WITHOUT STATUS EPILEPTICUS (7) Sleep apnea, obstructive Code(s): G47.33 - OBSTRUCTIVE SLEEP APNEA (ADULT) (PEDIATRIC)
[2017-09-08] MEDS ORDERED: ALBUTEROL SO4 0.083% IH SOL 2.5 MG/3 ML VIAL.NEB. NEB PRN (11:16)
--- NOTE | 2017-09-08 12:13 | CONS ---
DATE OF CONSULTATION: 09/08/2017 REFERRING PHYSICIAN: Glenna Do MD HISTORY OF PRESENT ILLNESS: The patient is a 62-year-old white female known to me from previous hospitalization, past medical history of advanced COPD, on home oxygen therapy, 3 L, obstructive sleep apnea, maintained on auto PAP, ASHD, status post cardiac catheterization, SLE, maintained on prednisone, methotrexate and Plaquenil, hypertension, hyperlipidemia, diabetes, insulin dependent, recently hospitalized at [facility] in early August, apparently was doing well until a couple of days prior to admission when she started developing increasing shortness of breath, chest congestion. The patient denied any fevers. Has had chills. Denies any hemoptysis. Patient went to see Dr. Hyde yesterday and was noted to have increasing shortness of breath and had an acute decompensation of the COPD. At the time she started on inhaled bronchodilators and transferred to [facility] ER. She also complained of anterior chest pain which is constant, sharp in character, was not radiating. Apparently the patient has had a history of this chest pain and workup has been negative. Patient was sent to the emergency room. In the ER she was treated with IV steroids, inhaled bronchodilators with some improvement and transferred up to the telemetry unit for further monitoring. Of note is recently as stated before she was hospitalized secondary to a COPD exacerbation. Was doing relatively well until the prednisone was tapered down to 10 mg at which time her symptoms worsened. She has a history of tobacco use; quit approximately 20 years ago. There is no history of occupational exposure to chemicals or fumes. There is no history of recent travel. There is no history of DVT or PE in the past. PAST MEDICAL HISTORY: Again includes insulin-dependent diabetes, SLE, asthma, COPD, on home O2, seizure disorder, hyperlipidemia, morbid obesity, obstructive sleep apnea, on auto PAP. REVIEW OF SYSTEMS: Positive cough. Positive shortness of breath. Positive wheezing. Positive chest pain. No nausea. No vomiting. No hemoptysis. No abdominal pain. CURRENT MEDICATIONS: Include Symbicort 160/4.5; Solu-Medrol 40 q.8; Tylenol; Cozaar; Zithromax; ceftriaxone; Cipro eye drops; heparin; Tegretol; topiramate; Zoloft; Plaquenil; methotrexate; albuterol; Duo-Neb; Dobutrex; Mirapex; ; NovoLog; Levemir; Singulair; Lasix; ; digoxin; Synthroid; Rohith-Synephrine eye drops. PHYSICAL EXAMINATION: General: The patient is an obese female, wide awake, alert, dyspneic and congested. Vital Signs: She is currently afebrile, blood pressure is 116/56, respiratory rate is 18, O2 saturation is 97% on 2 L. HEENT: Normocephalic, atraumatic. Neck: Supple. Heart: Regular, S1 and S2. Chest: Scattered bilateral wheezes throughout. Abdomen: Soft. Bowel sounds are positive. Extremities: No cyanosis or edema. LABORATORIES: WBC is 10.8, hemoglobin 11.7, hematocrit 35.8 with a platelet count of 336,000. BUN 19, creatinine 1.3. Chest x-ray reveals no infiltrates and no effusions. IMPRESSION: 1. Acute on chronic hypoxemic respiratory failure secondary to decompensated chronic obstructive pulmonary disease. 2. Chest pain, most likely musculoskeletal. 3. Systemic lupus erythematosus, on Plaquenil, methotrexate and steroids. 4. Diabetes mellitus. 5. Obstructive sleep apnea, on auto PAP. 6. Hyperlipidemia. 7. Seizure disorder. 8. Morbid obesity. PLAN: IV steroids. Inhaled bronchodilators. Supplemental O2. Will start Daliresp 500 mg daily. DVT prophylaxis. Also consider outpatient pulmonary rehab post discharge. Also a slow steroid taper post discharge. Thank you. MARGIE DAI M.D. ИРИНА/[id number]
--- NOTE | 2017-09-08 14:32 | EKG ---
Test Reason : Blood Pressure : / mmHG Vent. Rate : 088 BPM Atrial Rate : 088 BPM P-R Int : 156 ms QRS Dur : 074 ms QT Int : 362 ms P-R-T Axes : 037 -25 067 degrees QTc Int : 438 ms NORMAL SINUS RHYTHM POSSIBLE LEFT ATRIAL ENLARGEMENT LEFT VENTRICULAR HYPERTROPHY ABNORMAL ECG WHEN COMPARED WITH ECG OF 13-AUG-2017 17:03, NO SIGNIFICANT CHANGE WAS FOUND Confirmed by RAVI WARREN, ROSSY ([id number]) on 09/08/2017 2:31:39 PM Referred By: Confirmed By:ROSSY RODRIGUES MD
--- NOTE | 2017-09-08 16:26 | PN ---
Teaching Attending Note Name of Resident: Hugo Wan ATTENDING PHYSICIAN STATEMENT I saw and evaluated the patient. I reviewed the resident's note and discussed the case with the resident. I agree with the resident's findings and plan as documented. SUBJECTIVE:breathing has improved since arrival to the ER. +non productive cough. minimal dyspnea with exertion to the bathroom. denies CP, fever, chills, N/V/C/D. completed steroid taper about a week ago OBJECTIVE: Last Vital Signs Temp Pulse Resp BP Pulse Ox 98.4 F 74 18 104/57 97 09/08/17 14:10 09/08/17 14:10 09/08/17 14:10 09/08/17 14:10 09/08/17 09:00 General NAD CV S1 S2 RRR no murmur/rub/galop Lungs no wheezing. poor inspiratory effort ASSESSMENT AND PLAN: 61 yo F with PMHx of COPD on 2L home oxygen, CAD s/p cath no stent, HTN, HLD, DM, seizure, SLE, hypothyroid, DANY on CPAP, recently admitted with COPD exacerbation comes back with worsening dyspneax1 day 1. Acute on chronic COPD- currently stable. will increase medrol to 40mg Q6H. start azithromycin for anti-inflammatory factors. allergy to PCN noted. currently saturating well on 2L NC. Pulmonary consulted. started on darilesp. will require very slow taper and possible chronic steroids at this time. cont inhalers, nebs. will need pulmonary rehab on discharge 2. Hypokalemia- improved 3. NAN- likely dehydration. stable. will hold lasix and ARB at this time. 4. CAD s/p cath 5. HTN- controlled. cont home medication. will monitor while some are held 6. DM- cont home regimen 7. Seizure- no seizure like activity. on topamax 8. hypothyroid- LT4 9. DANY on cpap 10. SLE- on MTX 11. DVT ppx- Hep sq 12. can d/c cardiac monitoring
[2017-09-08] MEDS: TIOTROPIUM BROMIDE (SPIRIVA) RESPIMAT INHALER IH SCH (16:45)
--- NOTE | 2017-09-08 17:07 | PN ---
Physical Exam: SUBJECTIVE: Patient seen and examined. No acute events overnight. Pt. was resting comfortably on Cpap. Pt. denies chest pain, fever and chill at this time. Pt. endorses pain with deep inspiration. OBJECTIVE: Vital Signs Period Temp Pulse Resp BP Sys/Oconnell Pulse Ox Last 24 Hr 97.8 F-98.5 F 61-86 18-20 104-148/53-88 96-98 GENERAL: The patient is awake, alert, and fully oriented, in no acute distress, became tearful when discussing her chronic condition. LUNGS: Inspiratory wheeze, decreased breath sounds b/l, non-productive dry cough , JVD neg. HEART: Regular rate and rhythm, S1, S2 without murmur ABDOMEN: Soft, nontender, nondistended, normoactive bowel sounds, no guarding, no rebound EXTREMITIES: warm, well-perfused, no edema. PSYCH: Normal mood, normal affect. SKIN: Warm, dry, normal turgor Laboratory Results - last 24 hr 09/07/17 09/07/17 09/07/17 16:40 16:40 16:40 WBC 9.3 RBC 3.83 Hgb 11.4 Hct 35.2 MCV 92.1 MCH 29.9 MCHC 32.4 RDW 15.4 Plt Count 363 MPV 8.0 Absolute Neuts (auto) 7.3 Neutrophils % 79.3 D Lymphocytes % 15.0 D Monocytes % 4.8 Eosinophils % 0.1 D Basophils % 0.8 Nucleated RBC % 0 Sodium 143 Potassium 3.4 L Chloride 104 Carbon Dioxide 27 Anion Gap 12 BUN 15 Creatinine 1.3 H Creat Clearance w eGFR 41.64 POC Glucometer Random Glucose 172 H Calcium 8.8 Phosphorus Magnesium Total Bilirubin 0.2 AST 26 ALT 38 Alkaline Phosphatase 138 H D Creatine Kinase Creatine Kinase Index CK-MB (CK-2) Troponin I B-Natriuretic Peptide 98.21 Total Protein 7.3 Albumin 3.6 Lipase Urine Color Ltyellow Urine Appearance Clear Urine pH 6.0 Ur Specific [place] 1.008 Urine Protein Negative Urine Glucose (UA) Negative Urine Ketones Negative Urine Blood Negative Urine Nitrite Negative Urine Bilirubin Negative Urine Urobilinogen Negative Ur Leukocyte Esterase Negative 09/07/17 09/07/17 09/07/17 16:40 16:40 22:45 WBC RBC Hgb Hct MCV MCH MCHC RDW Plt Count MPV Absolute Neuts (auto) Neutrophils % Lymphocytes % Monocytes % Eosinophils % Basophils % Nucleated RBC % Sodium Potassium Chloride Carbon Dioxide Anion Gap BUN Creatinine Creat Clearance w eGFR POC Glucometer [phone] Random Glucose Calcium Phosphorus Magnesium Total Bilirubin AST ALT Alkaline Phosphatase Creatine Kinase 179 Creatine Kinase Index 0.8 CK-MB (CK-2) 1.47 Troponin I < 0.02 B-Natriuretic Peptide Total Protein Albumin Lipase 144 Urine Color Urine Appearance Urine pH Ur Specific [place] Urine Protein Urine Glucose (UA) Urine Ketones Urine Blood Urine Nitrite Urine Bilirubin Urine Urobilinogen Ur Leukocyte Esterase 09/08/17 09/08/17 09/08/17 06:46 07:15 07:15 WBC 10.8 H RBC 3.86 Hgb 11.7 Hct 35.8 MCV 92.6 MCH 30.4 MCHC 32.8 RDW 14.9 Plt Count 336 MPV 8.1 Absolute Neuts (auto) 7.1 Neutrophils % 65.3 Lymphocytes % 26.1 D Monocytes % 7.3 Eosinophils % 0.2 D Basophils % 1.1 Nucleated RBC % 0 Sodium 141 Potassium 3.8 Chloride 103 Carbon Dioxide 30 Anion Gap 8 BUN 19 H Creatinine 1.3 H Creat Clearance w eGFR 41.64 POC Glucometer 228 Random Glucose 180 H Calcium 9.4 Phosphorus 4.2 Magnesium 2.2 Total Bilirubin 0.2 AST 18 ALT 38 Alkaline Phosphatase 143 H Creatine Kinase Creatine Kinase Index CK-MB (CK-2) Troponin I B-Natriuretic Peptide Total Protein 7.1 Albumin 3.4 Lipase Urine Color Urine Appearance Urine pH Ur Specific [place] Urine Protein Urine Glucose (UA) Urine Ketones Urine Blood Urine Nitrite Urine Bilirubin Urine Urobilinogen Ur Leukocyte Esterase 09/08/17 09/08/17 12:13 16:44 WBC RBC Hgb Hct MCV MCH MCHC RDW Plt Count MPV Absolute Neuts (auto) Neutrophils % Lymphocytes % Monocytes % Eosinophils % Basophils % Nucleated RBC % Sodium Potassium Chloride Carbon Dioxide Anion Gap BUN Creatinine Creat Clearance w eGFR POC Glucometer 173 259 Random Glucose Calcium Phosphorus Magnesium Total Bilirubin AST ALT Alkaline Phosphatase Creatine Kinase Creatine Kinase Index CK-MB (CK-2) Troponin I B-Natriuretic Peptide Total Protein Albumin Lipase Urine Color Urine Appearance Urine pH Ur Specific [place] Urine Protein Urine Glucose (UA) Urine Ketones Urine Blood Urine Nitrite Urine Bilirubin Urine Urobilinogen Ur Leukocyte Esterase Active Medications Current Medications Albuterol Sulfate (Ventolin 0.083% Nebulizer Soln -) 1 amp NEB Q1H PRN PRN Reason: SHORT OF BREATH/WHEEZING Albuterol Sulfate (Ventolin 0.083% Nebulizer Soln -) 1 amp NEB Q4H PRN PRN Reason: SHORT OF BREATH/WHEEZING Atorvastatin Calcium (Lipitor -) 10 mg PO HS [facility] Budesonide/Formoterol Fumarate (Symbicort 160/4.5mcg -) 2 puff IH BID [facility] Last Admin: 09/08/17 10:33 Dose: 2 puff Carbamazepine (Tegretol Xr -) 300 mg PO BID [facility] Last Admin: 09/08/17 10:38 Dose: 300 mg Heparin Sodium (Porcine) (Heparin -) 5,000 unit SQ TID [facility] Last Admin: 09/08/17 13:43 Dose: 5,000 unit Hydroxychloroquine Sulfate (Plaquenil -) 200 mg PO BID [facility] Last Admin: 09/08/17 10:33 Dose: 200 mg Azithromycin 250 mg/ Dextrose 250 mls @ 250 mls/hr IVPB DAILY [facility] Insulin Aspart (Novolog Vial Sliding Scale -) 0 vial SQ ACHS [facility]; Protocol Last Admin: 09/08/17 16:52 Dose: 6 units Insulin Detemir (Levemir Vial) 32 units SQ AM [facility] Last Admin: 09/08/17 06:53 Dose: 32 units Levothyroxine Sodium (Synthroid -) 50 mcg PO MoTuWeThFrSa@0700 [facility] Last Admin: 09/08/17 06:52 Dose: 50 mcg Methotrexate (Mexate -) 12.5 mg PO We@0730 [facility] Methylprednisolone Sodium Succinate (Solu-Medrol -) 40 mg IVPUSH Q6H-IV [facility] Last Admin: 09/08/17 16:52 Dose: 40 mg Montelukast Sodium (Singulair -) 10 mg PO HS [facility] Pramipexole Dihydrochloride (Mirapex -) 0.5 mg PO BID [facility] Last Admin: 09/08/17 10:33 Dose: 0.5 mg Sertraline HCl (Zoloft -) 100 mg PO HS [facility] Tiotropium [place] (Spiriva Respimat) 2 puff IH DAILY [facility] Last Admin: 09/08/17 16:45 Dose: 2 puff Topiramate (Topamax -) 100 mg PO BID [facility] Last Admin: 09/08/17 10:33 Dose: 100 mg ASSESSMENT/PLAN: 62 yo F PMH of lupus, IDDM, asthma, COPD (3l home O2), HLD, seizure disorder, morbid obesity, and multiple admissions for COPD exacerbations p/w worsening SOB x1d. COPD exacerbation - On 3L O2 at home and completed her prednisone taper to 10mg from last admission 1 mo ago. - low suspicion for cardiac etiology for COPD exacerbation( neg. Trops, no acute EKG changes, baseline BNP, CP reproducible with sternal rub) - c/w Duoneb, symbicort, and Spiriva - change solumedrol to 40mg q6h -3 L O2 NC maintain O2 sat 89-92% -CPAP at night, pt has her own. -Respiratory therapist appreciated -Pulmonology consult appreciated: Will start Daliresp 500mcg in the morning(09/09), will c/w IV steroids at the above dose, c/w supplemental o2. -Outpatient pulmonary rehab and slow steroid taper on discharge Hypo K - 3.4 on admission(09/07/17) -one dose 40meq KCL PO -monitor BMP -K: 3.8(09/08/17), resolved DM -holding home lispro and glipizide -c/w home dose lantus and implement sliding scale insulin regimen. -BGM ACHS Obesity - -Will provide necessary assistance, counseling and positive reinforcement to facilitate weight loss. -Consult telex operator -Pt. has detailed why weight loss is difficult. Pt. needs high dose steroids frequently and this makes it easier for her to gain weight. Pt. has had lap- band surgery with good weight loss in the past. Weight was regained after multiple COPD exacerbations necessitating high dose steroids. HCM -c/w home dose meds for COPD, asthma, HTN, hypothyroid, HLD, seizure, CAD, CHF, SLE #FEN -no IV fluids at this time -replete lytes as needed -low sodium/fat/ diabetic diet #DVTppx SQH 5000u tid #Dispo -admit to tele -Full code Visit type - Emergency Visit Emergency Visit: Yes ED Registration Date: 09/08/17 Care time: The patient presented to the Emergency Department on the above date and was hospitalized for further evaluation of their emergent condition. - New Patient This patient is new to me today: Yes Date on this admission: 09/08/17 - Critical Care Critical Care patient: No - Discharge Referral Referred to [facility] No
[2017-09-08] MEDS ORDERED: ATORVASTATIN CA 10 MG TABLET (FP) PO SCH (22:00)
[2017-09-08] MEDS ORDERED: MONTELUKAST NA 10 MG TABLET PO SCH (22:00)
[2017-09-08] MEDS ORDERED: SERTRALINE HCL 50 MG TABLET (FP) PO SCH (22:00)
[2017-09-09] MEDS: methylPREDNISolone NA SUCC 40 MG/1 ML VIAL IVPUSH SCH ×4 (02:44→21:12)
[2017-09-09] MEDS: INSULIN SLIDING SCALE (NOVOLOG) 1 VIAL SQ SCH ×4 (06:10→21:14)
[2017-09-09] MEDS: INSULIN (LEVEMIR) 100 UNITS/ML UNITS SQ SCH (06:10)
[2017-09-09] MEDS: LEVOTHYROXINE NA 50 MCG TABLET (FP) PO SCH (06:10)
[2017-09-09] MEDS: HEPARIN NA (PORCINE) 5,000 UNITS/ML 1ML VIAL SQ SCH ×3 (06:11→21:12)
[2017-09-09] MEDS ORDERED: PT OWN MED DRAWER 7, Y5N ONE ×2 (08:48→21:05)
[2017-09-09 08:53] LABS: ANION GAP 7 (8-16); BLOOD UREA NITROGEN 18 mg/dL (7-18); CALCIUM 9.5 mg/dL (8.5-10.1); CHLORIDE 104 mmol/L (98-107); CO2 28 mmol/L (21-32); CREATININE 1.2 mg/dL (0.55-1.02); GLUCOSE,RANDOM 285 mg/dL (74-106); MAGNESIUM 2.3 mg/dL (1.8-2.4); PHOSPHOROUS 3.2 mg/dL (2.5-4.9); POTASSIUM 4.1 mmol/L (3.5-5.1); SODIUM 139 mmol/L (136-145)
[2017-09-09 09:04] LABS: BASO % 0.5 % (0-2.0); HEMATOCRIT 35.6 % (32.4-45.2); HEMOGLOBIN 11.5 GM/dL (10.7-15.3); LYMPH % 15.5 % (8-40); MCH 29.8 pg (25.7-33.7); MCHC 32.2 g/dl (32.0-36.0); MEAN CELL VOLUME 92.4 fl (80-96); MEAN PLT VOLUME 8.4 fl (7.5-11.1); MONO % 2.8 % (3.8-10.2); NEUT % 81.2 % (42.8-82.8); PLATELET COUNT 369 K/MM3 (134-434); RBC 3.85 M/mm3 (3.60-5.2); RDW 15.3 % (11.6-15.6)
[2017-09-09] MEDS ORDERED: AZITHROMYCIN IVPB 250 MG in DEXTROSE 5%-WATER - 250 ML IVPB SCH (10:00)
[2017-09-09] MEDS: BUDESONIDE/FORMETEROL FUMARATE 160/4.5 mcg INHALER IH SCH ×2 (10:26→21:17)
[2017-09-09] MEDS: TIOTROPIUM BROMIDE (SPIRIVA) RESPIMAT INHALER IH SCH (10:26)
--- NOTE | 2017-09-09 10:42 | PN ---
Progress Note, Physician History of Present Illness: PULMONARY MINIMAL IMPROVEMENT ,STILL DYSPNEIC,+COUGH - Current Medication List Current Medications: Active Medications Albuterol Sulfate (Ventolin 0.083% Nebulizer Soln -) 1 amp NEB Q4H PRN PRN Reason: SHORT OF BREATH/WHEEZING Atorvastatin Calcium (Lipitor -) 10 mg PO HS [facility] Last Admin: 09/08/17 21:29 Dose: 10 mg Budesonide/Formoterol Fumarate (Symbicort 160/4.5mcg -) 2 puff IH BID [facility] Last Admin: 09/09/17 10:26 Dose: 2 puff Carbamazepine (Tegretol Xr -) 300 mg PO BID [facility] Last Admin: 09/08/17 21:30 Dose: 300 mg Heparin Sodium (Porcine) (Heparin -) 5,000 unit SQ TID [facility] Last Admin: 09/09/17 06:11 Dose: 5,000 unit Hydroxychloroquine Sulfate (Plaquenil -) 200 mg PO BID [facility] Last Admin: 09/08/17 21:37 Dose: 200 mg Azithromycin 250 mg/ Dextrose 250 mls @ 250 mls/hr IVPB DAILY [facility] Last Admin: 09/09/17 10:22 Dose: 250 mls/hr Insulin Aspart (Novolog Vial Sliding Scale -) 0 vial SQ ACHS [facility]; Protocol Last Admin: 09/09/17 06:10 Dose: 10 units Insulin Detemir (Levemir Vial) 32 units SQ AM [facility] Last Admin: 09/09/17 06:10 Dose: 32 units Levothyroxine Sodium (Synthroid -) 50 mcg PO MoTuWeThFrSa@0700 [facility] Last Admin: 09/09/17 06:10 Dose: 50 mcg Methotrexate (Mexate -) 12.5 mg PO We@0730 [facility] Methylprednisolone Sodium Succinate (Solu-Medrol -) 40 mg IVPUSH Q6H-IV [facility] Last Admin: 09/09/17 08:56 Dose: 40 mg Montelukast Sodium (Singulair -) 10 mg PO [facility] Last Admin: 09/08/17 21:28 Dose: 10 mg Pramipexole Dihydrochloride (Mirapex -) 0.5 mg PO BID [facility] Last Admin: 09/08/17 21:30 Dose: 0.5 mg Sertraline HCl (Zoloft -) 100 mg PO [facility] Last Admin: 09/08/17 21:28 Dose: 100 mg Tiotropium [place] (Spiriva Respimat) 2 puff IH DAILY [facility] Last Admin: 09/09/17 10:26 Dose: 2 puff Topiramate (Topamax -) 100 mg PO BID [facility] Last Admin: 09/08/17 21:31 Dose: 100 mg - Objective Vital Signs: Vital Signs Temperature 98.5 F 09/09/17 08:32 Pulse Rate 70 09/09/17 08:32 Respiratory Rate 20 09/09/17 08:32 Blood Pressure 144/99 09/09/17 08:32 O2 Sat by Pulse Oximetry (%) 98 09/08/17 21:00 Constitutional: Yes: Well Nourished, Calm Eyes: Yes: WNL HENT: Yes: WNL Neck: Yes: WNL Cardiovascular: Yes: Regular Rate and Rhythm, S1, S2 Respiratory: Yes: Wheezes (SCATTERED KIMO WHEEZES) Gastrointestinal: Yes: Normal Bowel Sounds, Soft Extremities: Yes: WNL Edema: No Labs: CBC, BMP 09/09/17 08:22 09/09/17 08:22 Problem List - Problems (1) Acute on chronic respiratory failure with hypoxemia Code(s): J96.21 - ACUTE AND CHRONIC RESPIRATORY FAILURE WITH HYPOXIA (2) Acute exacerbation of chronic obstructive pulmonary disease (COPD) Code(s): J44.1 - CHRONIC OBSTRUCTIVE PULMONARY DISEASE W (ACUTE) EXACERBATION (3) Shortness of breath Code(s): R06.02 - SHORTNESS OF BREATH (4) Hypertension Code(s): I10 - ESSENTIAL (PRIMARY) HYPERTENSION Qualifiers: Hypertension type: essential hypertension Qualified Code(s): I10 - Essential (primary) hypertension (5) SLE (systemic lupus erythematosus) Code(s): M32.9 - SYSTEMIC LUPUS ERYTHEMATOSUS, UNSPECIFIED (6) Seizure disorder Code(s): G40.909 - EPILEPSY, UNSP, NOT INTRACTABLE, WITHOUT STATUS EPILEPTICUS (7) Sleep apnea, obstructive Code(s): G47.33 - OBSTRUCTIVE SLEEP APNEA (ADULT) (PEDIATRIC) Assessment/Plan IMP ACUTE ON CHRONIC HYPOXEMIC RESPIRATORY FAILURE COPD EXACERBATION SLE CP LIKELY MUSCULOSKELETAL DANY ON AUTO-PAP DM HLD OBESITY H/O SEIZURES PLAN IV STEROIDS SAME DOSE O2 INHALED BRONCHODILATORS DALIRESP AUTO-PAP HS DVT PROPHYLAXIS PULMONARY REHAB POST DISCHARGE CONSIDER PCP PROPHYLAXIS ZITHROMAX 250mg DAILY ANTI-INFLAMMATORY MONITOR QT HEARING EVALUATION DR DAI Problem List - Problems (1) Acute on chronic respiratory failure with hypoxemia Code(s): J96.21 - ACUTE AND CHRONIC RESPIRATORY FAILURE WITH HYPOXIA (2) Acute exacerbation of chronic obstructive pulmonary disease (COPD) Code(s): J44.1 - CHRONIC OBSTRUCTIVE PULMONARY DISEASE W (ACUTE) EXACERBATION (3) Shortness of breath Code(s): R06.02 - SHORTNESS OF BREATH (4) Hypertension Code(s): I10 - ESSENTIAL (PRIMARY) HYPERTENSION Qualifiers: Hypertension type: essential hypertension Qualified Code(s): I10 - Essential (primary) hypertension (5) SLE (systemic lupus erythematosus) Code(s): M32.9 - SYSTEMIC LUPUS ERYTHEMATOSUS, UNSPECIFIED (6) Seizure disorder Code(s): G40.909 - EPILEPSY, UNSP, NOT INTRACTABLE, WITHOUT STATUS EPILEPTICUS (7) Sleep apnea, obstructive Code(s): G47.33 - OBSTRUCTIVE SLEEP APNEA (ADULT) (PEDIATRIC)
[2017-09-09] MEDS: HYDROXYCHLOROQUINE SO4 200 MG TABLET (FP) PO SCH ×2 (11:27→21:16)
[2017-09-09] MEDS: TOPIRAMATE 100 MG TABLET PO SCH ×2 (11:28→21:18)
[2017-09-09] MEDS: PRAMIPEXOLE DIHYDROCHLORIDE 0.5 MG TABLET PO SCH ×2 (13:21→21:14)
--- NOTE | 2017-09-09 13:47 | PN ---
Teaching Attending Note Name of Resident: Hugo Wan ATTENDING PHYSICIAN STATEMENT I saw and evaluated the patient. I reviewed the resident's note and discussed the case with the resident. I agree with the resident's findings and plan as documented. SUBJECTIVE:states no improvement with breathing. was able to ambulate to the bathroom but unable to walk any further. denies Cp, fever, chills, N/V/C/D OBJECTIVE: Last Vital Signs Temp Pulse Resp BP Pulse Ox 98.5 F 70 20 144/99 97 09/09/17 08:32 09/09/17 08:32 09/09/17 08:32 09/09/17 08:32 09/09/17 09:00 General NAD CV S1 S2 RRR no murmur/rub/galop Lungs no wheezing. poor inspiratory effort ASSESSMENT AND PLAN: 61 yo F with PMHx of COPD on 2L home oxygen, CAD s/p cath no stent, HTN, HLD, DM, seizure, SLE, hypothyroid, DANY on CPAP, recently admitted with COPD exacerbation comes back with worsening dyspneax1 day 1. Acute on chronic COPD- currently stable. cont steroids at current dosing. on azithro day 2. supplemental oxygen to maintain spo2 > 90%. nebs and inhalers. pulm on board 2. Hypokalemia- improved 3. NNA- likely dehydration. slightly improved. will hold lasix and ARB at this time. 4. CAD s/p cath 5. HTN- controlled. cont home medication. will monitor while some are held 6. DM- cont home regimen 7. Seizure- no seizure like activity. on topamax 8. hypothyroid- LT4 9. DANY on cpap 10. SLE- on MTX 11. DVT ppx- Hep sq 12. would benefit from pulmonary rehab on discharge. patient is agreeable
--- NOTE | 2017-09-09 18:52 | PN ---
Physical Exam: SUBJECTIVE: Patient seen and examined. Pt. endorses sleeping better last night. She has a cough that causes chest pain. Moving around causes chest pain and loss of breath. Pt. says she get SOB just walking to the bathroom which has become her baseline now. OBJECTIVE: Vital Signs Period Temp Pulse Resp BP Sys/Oconnell Pulse Ox Last 24 Hr 98.3 F-99.3 F 66-85 18-20 106-144/50-99 97-98 GENERAL: The patient is awake, alert, and fully oriented, in mild distress. LUNGS: decreased breath sounds, prolonged expiration, diffuse wheezing and dry non-productive cough HEART: Regular rate and rhythm, S1, S2 without murmur, rub or gallop. No JVD. ABDOMEN: Soft, nontender, nondistended, normoactive bowel sounds EXTREMITIES: warm, 1+ edema, B/l calf pain. NEUROLOGICAL: Normal speech PSYCH: Normal mood, normal affect. SKIN: Warm, dry, normal turgor, multiple ecchymotic sites on arms in IV attempt sites. Laboratory Results - last 24 hr 09/08/17 09/09/17 09/09/17 21:26 05:39 08:22 WBC 9.0 RBC 3.85 Hgb 11.5 Hct 35.6 MCV 92.4 MCH 29.8 MCHC 32.2 RDW 15.3 Plt Count 369 MPV 8.4 Absolute Neuts (auto) 7.3 Neutrophils % 81.2 D Lymphocytes % 15.5 D Monocytes % 2.8 L Eosinophils % 0.0 D Basophils % 0.5 Nucleated RBC % 0 Sodium Potassium Chloride Carbon Dioxide Anion Gap BUN Creatinine Creat Clearance w eGFR POC Glucometer 317 353 Random Glucose Calcium Phosphorus Magnesium 09/09/17 09/09/17 09/09/17 08:22 12:29 16:04 WBC RBC Hgb Hct MCV MCH MCHC RDW Plt Count MPV Absolute Neuts (auto) Neutrophils % Lymphocytes % Monocytes % Eosinophils % Basophils % Nucleated RBC % Sodium 139 Potassium 4.1 Chloride 104 Carbon Dioxide 28 Anion Gap 7 L BUN 18 Creatinine 1.2 H Creat Clearance w eGFR 45.67 POC Glucometer 252 291 Random Glucose 285 H Calcium 9.5 Phosphorus 3.2 Magnesium 2.3 Active Medications Current Medications Albuterol Sulfate (Ventolin 0.083% Nebulizer Soln -) 1 amp NEB Q4H PRN PRN Reason: SHORT OF BREATH/WHEEZING Atorvastatin Calcium (Lipitor -) 10 mg PO HS [facility] Budesonide/Formoterol Fumarate (Symbicort 160/4.5mcg -) 2 puff IH BID [facility] Carbamazepine (Tegretol Xr -) 300 mg PO BID [facility] Heparin Sodium (Porcine) (Heparin -) 5,000 unit SQ TID [facility] Hydroxychloroquine Sulfate (Plaquenil -) 200 mg PO BID [facility] Azithromycin 250 mg/ Dextrose 250 mls @ 250 mls/hr IVPB DAILY [facility] Insulin Aspart (Novolog Vial Sliding Scale -) 1 vial SQ ACHS [facility]; Protocol Insulin Detemir (Levemir Vial) 32 units SQ AM [facility] Levothyroxine Sodium (Synthroid -) 50 mcg PO MoTuWeThFrSa@0700 [facility] Methotrexate (Mexate -) 12.5 mg PO We@0730 [facility] Methylprednisolone Sodium Succinate (Solu-Medrol -) 40 mg IVPUSH Q6H-IV [facility] Montelukast Sodium (Singulair -) 10 mg PO HS [facility] Pramipexole Dihydrochloride (Mirapex -) 0.5 mg PO BID [facility] Sertraline HCl (Zoloft -) 100 mg PO HS [facility] Tiotropium [place] (Spiriva Respimat) 2 puff IH DAILY [facility] Topiramate (Topamax -) 100 mg PO BID [facility] ASSESSMENT/PLAN: 62 yo F PMH of lupus, IDDM, asthma, COPD (3l home O2), HLD, seizure disorder, morbid obesity, and multiple admissions for COPD exacerbations p/w worsening SOB x1d. COPD exacerbation - On 3L O2 at home and completed her prednisone taper to 10mg from last admission 1 mo ago. - low suspicion for cardiac etiology for COPD exacerbation( neg. Trops, no acute EKG changes, baseline BNP, CP reproducible with sternal rub) - c/w Duoneb, symbicort, and Spiriva - c/w solumedrol to 40mg q6h -3 L O2 NC maintain O2 sat 89-92% -CPAP at night, pt has her own. -Respiratory therapist appreciated -Pulmonology consult appreciated: Will start Daliresp 500mcg in the morning(09/09), will c/w IV steroids at the above dose, c/w supplemental o2. -Outpatient pulmonary rehab and slow steroid taper on discharge Hypo K - 3.4 on admission(09/07/17) -one dose 40meq KCL PO -monitor BMP -K: 3.8(09/08/17), resolved DM -holding home lispro and glipizide -c/w home dose lantus and implement sliding scale insulin regimen. -BGM ACHS Obesity - -Will provide necessary assistance, counseling and positive reinforcement to facilitate weight loss. 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 has detailed why weight loss is difficult. Pt. needs high dose steroids frequently and this makes it easier for her to gain weight. Pt. has had lap- band surgery with good weight loss in the past. Weight was regained after multiple COPD exacerbations necessitating high dose steroids. HCM -c/w home dose meds for COPD, asthma, HTN, hypothyroid, HLD, seizure, CAD, CHF, SLE #FEN -no IV fluids at this time -replete lytes as needed -low sodium/fat/ diabetic diet #DVTppx SQH 5000u tid #Dispo -admit to tele -going from Tele to the floor -Full code Visit type - Emergency Visit Emergency Visit: Yes ED Registration Date: 09/08/17 Care time: The patient presented to the Emergency Department on the above date and was hospitalized for further evaluation of their emergent condition. - New Patient This patient is new to me today: No - Critical Care Critical Care patient: No - Discharge Referral Referred to [facility] No
[2017-09-09] MEDS: ATORVASTATIN CA 10 MG TABLET (FP) PO SCH (21:13)
[2017-09-09] MEDS: MONTELUKAST NA 10 MG TABLET PO SCH (21:15)
[2017-09-09] MEDS: SERTRALINE HCL 50 MG TABLET (FP) PO SCH (21:18)
[2017-09-10] MEDS: methylPREDNISolone NA SUCC 40 MG/1 ML VIAL IVPUSH SCH ×4 (03:15→21:57)
[2017-09-10] MEDS: INSULIN (LEVEMIR) 100 UNITS/ML UNITS SQ SCH (06:23)
[2017-09-10] MEDS: HEPARIN NA (PORCINE) 5,000 UNITS/ML 1ML VIAL SQ SCH ×3 (06:23→21:57)
[2017-09-10] MEDS: INSULIN SLIDING SCALE (NOVOLOG) 1 VIAL SQ SCH ×4 (06:24→22:37)
[2017-09-10] MEDS: LEVOTHYROXINE NA 50 MCG TABLET (FP) PO SCH (06:24)
--- NOTE | 2017-09-10 09:24 | PN ---
Progress Note, Physician History of Present Illness: PULMONARY ALERT,FEELING BETTER,LESS DYSPNEIC,+COUGH - Current Medication List Current Medications: Active Medications Albuterol Sulfate (Ventolin 0.083% Nebulizer Soln -) 1 amp NEB Q4H PRN PRN Reason: SHORT OF BREATH/WHEEZING Atorvastatin Calcium (Lipitor -) 10 mg PO HS [facility] Last Admin: 09/09/17 21:13 Dose: 10 mg Budesonide/Formoterol Fumarate (Symbicort 160/4.5mcg -) 2 puff IH BID [facility] Last Admin: 09/09/17 21:17 Dose: 2 puff Carbamazepine (Tegretol Xr -) 300 mg PO BID [facility] Last Admin: 09/09/17 21:18 Dose: 300 mg Heparin Sodium (Porcine) (Heparin -) 5,000 unit SQ TID [facility] Last Admin: 09/10/17 06:23 Dose: 5,000 unit Hydroxychloroquine Sulfate (Plaquenil -) 200 mg PO BID [facility] Last Admin: 09/09/17 21:16 Dose: 200 mg Azithromycin 250 mg/ Dextrose 250 mls @ 250 mls/hr IVPB DAILY [facility] Insulin Aspart (Novolog Vial Sliding Scale -) 1 vial SQ ACHS [facility]; Protocol Last Admin: 09/10/17 06:24 Dose: 8 units Insulin Detemir (Levemir Vial) 32 units SQ AM [facility] Last Admin: 09/10/17 06:23 Dose: 32 units Levothyroxine Sodium (Synthroid -) 50 mcg PO MoTuWeThFrSa@0700 [facility] Last Admin: 09/10/17 06:24 Dose: 50 mcg Methotrexate (Mexate -) 12.5 mg PO We@0730 [facility] Methylprednisolone Sodium Succinate (Solu-Medrol -) 40 mg IVPUSH Q6H-IV [facility] Last Admin: 09/10/17 03:15 Dose: 40 mg Montelukast Sodium (Singulair -) [address] [facility] Last Admin: 09/09/17 21:15 Dose: 10 mg Pramipexole Dihydrochloride (Mirapex -) 0.5 mg PO BID [facility] Last Admin: 09/09/17 21:14 Dose: 0.5 mg Sertraline HCl (Zoloft -) [address] [facility] Last Admin: 09/09/17 21:18 Dose: 100 mg Tiotropium [place] (Spiriva Respimat) 2 puff IH DAILY [facility] Topiramate (Topamax -) 100 mg PO BID [facility] Last Admin: 09/09/17 21:18 Dose: 100 mg - Objective Vital Signs: Vital Signs Temperature 98.0 F 09/10/17 05:14 Pulse Rate 61 09/10/17 05:14 Respiratory Rate 20 09/10/17 05:14 Blood Pressure 140/59 09/10/17 05:14 O2 Sat by Pulse Oximetry (%) 100 09/09/17 20:20 Constitutional: Yes: Well Nourished, Calm Eyes: Yes: WNL HENT: Yes: WNL Neck: Yes: WNL Cardiovascular: Yes: Regular Rate and Rhythm, S1, S2 Respiratory: Yes: Wheezes (SCATTEREED KIMO WHEEZES) Gastrointestinal: Yes: Normal Bowel Sounds, Soft Extremities: Yes: WNL Edema: No Labs: CBC, BMP Problem List - Problems (1) Acute on chronic respiratory failure with hypoxemia Code(s): J96.21 - ACUTE AND CHRONIC RESPIRATORY FAILURE WITH HYPOXIA (2) Acute exacerbation of chronic obstructive pulmonary disease (COPD) Code(s): J44.1 - CHRONIC OBSTRUCTIVE PULMONARY DISEASE W (ACUTE) EXACERBATION (3) Shortness of breath Code(s): R06.02 - SHORTNESS OF BREATH (4) Hypertension Code(s): I10 - ESSENTIAL (PRIMARY) HYPERTENSION Qualifiers: Hypertension type: essential hypertension Qualified Code(s): I10 - Essential (primary) hypertension (5) SLE (systemic lupus erythematosus) Code(s): M32.9 - SYSTEMIC LUPUS ERYTHEMATOSUS, UNSPECIFIED (6) Seizure disorder Code(s): G40.909 - EPILEPSY, UNSP, NOT INTRACTABLE, WITHOUT STATUS EPILEPTICUS (7) Sleep apnea, obstructive Code(s): G47.33 - OBSTRUCTIVE SLEEP APNEA (ADULT) (PEDIATRIC) Assessment/Plan IMP ACUTE ON CHRONIC HYPOXEMIC RESPIRATORY FAILURE SLOWLY IMPROVING COPD EXACERBATION SLE CP LIKELY MUSCULOSKELETAL DANY ON AUTO-PAP DM HLD OBESITY H/O SEIZURES PLAN IV STEROIDS SAME DOSE O2 INHALED BRONCHODILATORS DALIRESP AUTO-PAP HS DVT PROPHYLAXIS PULMONARY REHAB POST DISCHARGE ZITHROMAX 250mg PO DAILY ANTI-INFLAMMATORY MONITOR QT HEARING EVALUATION DR DAI Problem List - Problems (1) Acute on chronic respiratory failure with hypoxemia Code(s): J96.21 - ACUTE AND CHRONIC RESPIRATORY FAILURE WITH HYPOXIA (2) Acute exacerbation of chronic obstructive pulmonary disease (COPD) Code(s): J44.1 - CHRONIC OBSTRUCTIVE PULMONARY DISEASE W (ACUTE) EXACERBATION (3) Shortness of breath Code(s): R06.02 - SHORTNESS OF BREATH (4) Hypertension Code(s): I10 - ESSENTIAL (PRIMARY) HYPERTENSION Qualifiers: Hypertension type: essential hypertension Qualified Code(s): I10 - Essential (primary) hypertension (5) SLE (systemic lupus erythematosus) Code(s): M32.9 - SYSTEMIC LUPUS ERYTHEMATOSUS, UNSPECIFIED (6) Seizure disorder Code(s): G40.909 - EPILEPSY, UNSP, NOT INTRACTABLE, WITHOUT STATUS EPILEPTICUS (7) Sleep apnea, obstructive Code(s): G47.33 - OBSTRUCTIVE SLEEP APNEA (ADULT) (PEDIATRIC)
[2017-09-10] MEDS: HYDROXYCHLOROQUINE SO4 200 MG TABLET (FP) PO SCH ×2 (09:57→22:06)
[2017-09-10] MEDS: PRAMIPEXOLE DIHYDROCHLORIDE 0.5 MG TABLET PO SCH ×2 (09:57→22:04)
[2017-09-10] MEDS: TIOTROPIUM BROMIDE (SPIRIVA) RESPIMAT INHALER IH SCH (09:58)
[2017-09-10] MEDS: TOPIRAMATE 100 MG TABLET PO SCH ×2 (09:58→22:12)
[2017-09-10] MEDS: AZITHROMYCIN IVPB 250 MG in DEXTROSE 5%-WATER - 250 ML IVPB SCH (09:59)
[2017-09-10] MEDS: BUDESONIDE/FORMETEROL FUMARATE 160/4.5 mcg INHALER IH SCH ×2 (09:59→22:12)
--- NOTE | 2017-09-10 11:56 | PN ---
Progress Note (short form) - Note Progress Note: c/o cough. difficulty ambulating to the bathroom and had "coughing attack". denies CP, fever, chills, N/V/C/D Current Medications Generic Name Dose Route Start Last Admin Trade Name Freq PRN Reason Stop Dose Admin Albuterol Sulfate 1 amp 09/09/17 16:48 Ventolin 0.083% Nebulizer Soln - NEB Q4H PRN SHORT OF BREATH/WHEEZING Atorvastatin Calcium 10 mg 09/09/17 22:00 09/09/17 21:13 Lipitor - PO 10 mg HS DONTA Administration Budesonide/Formoterol Fumarate 2 puff 09/09/17 22:00 09/10/17 09:59 Symbicort 160/4.5mcg - IH 2 puff BID DON[facility] Administration Carbamazepine 300 mg 09/09/17 22:00 09/10/17 09:59 Tegretol Xr - PO 300 mg BID [facility] Administration Heparin Sodium (Porcine) 5,000 unit 09/09/17 22:00 09/10/17 06:23 Heparin - SQ 5,000 unit TID [facility] Administration Hydroxychloroquine Sulfate 200 mg 09/09/17 22:00 09/10/17 09:57 Plaquenil - PO 200 mg BID [facility] Administration Azithromycin 250 mg/ Dextrose 250 mls @ 250 mls/hr 09/10/17 10:00 09/10/17 09 :59 IVPB 250 mls/hr DAILY [facility] Administration Insulin Aspart 1 vial 09/09/17 22:00 09/10/17 06:24 Novolog Vial Sliding Scale - SQ 8 units ACHS [facility] Administration Protocol Insulin Detemir 32 units 09/10/17 07:00 09/10/17 06:23 Levemir Vial SQ 32 units AM [facility] Administration Levothyroxine Sodium 50 mcg 09/10/17 07:00 09/10/17 06:24 Synthroid - PO 50 mcg MoTuWeThFrSa@0700 [facility] Administration Methotrexate 12.5 mg 09/14/17 07:30 Mexate - PO We@0730 [facility] Methylprednisolone Sodium Succinate 40 mg 09/09/17 21:00 09/10/17 09:57 Solu-Medrol - IVPUSH 40 mg Q6H-IV [facility] Administration Montelukast Sodium 10 mg 09/09/17 22:00 09/09/17 21:15 Singulair - PO 10 mg HS [facility] Administration Pramipexole Dihydrochloride 0.5 mg 09/09/17 22:00 09/10/17 09:57 Mirapex - PO 0.5 mg BID [facility] Administration Sertraline HCl 100 mg 09/09/17 22:00 09/09/17 21:18 Zoloft - PO 100 mg HS [facility] Administration Tiotropium [place] 2 puff 09/10/17 10:00 09/10/17 09:58 Spiriva Respimat IH 2 puff DAILY [facility] Administration Topiramate 100 mg 09/09/17 22:00 09/10/17 09:58 Topamax - PO 100 mg BID [facility] Administration Last Vital Signs Temp Pulse Resp BP Pulse Ox 98.0 F 61 20 140/59 100 09/10/17 05:14 09/10/17 05:14 09/10/17 05:14 09/10/17 05:14 09/09/17 20:20 General NAD CV S1 S2 RRR no murmur/rub/galop Lungs no wheezing. poor inspiratory effort Extremities trace pitting edema ASSESSMENT AND PLAN: 61 yo F with PMHx of COPD on 2L home oxygen, CAD s/p cath no stent, HTN, HLD, DM, seizure, SLE, hypothyroid, DANY on CPAP, recently admitted with COPD exacerbation comes back with worsening dyspneax1 day 1. Acute on chronic COPD- currently stable. cont steroids at current dosing. on azithro day 3. supplemental oxygen to maintain spo2 > 90%. nebs and inhalers. pulm on board 2. Hypokalemia- improved 3. NAN- likely dehydration. slightly improved. will check tomorrow labs 4. CAD s/p cath 5. HTN- controlled. cont home medication. will re-start lasix. confirmed taking 80mg BID 6. DM- cont home regimen 7. Seizure- no seizure like activity. on topamax 8. hypothyroid- LT4 9. DANY on cpap 10. SLE- on MTX 11. DVT ppx- Hep sq 12. would benefit from pulmonary rehab on discharge. patient is agreeable Visit type - Emergency Visit Emergency Visit: Yes ED Registration Date: 09/08/17 Care time: The patient presented to the Emergency Department on the above date and was hospitalized for further evaluation of their emergent condition. - New Patient This patient is new to me today: No - Critical Care Critical Care patient: No - Discharge Referral Referred to [facility] Med P.C.: No
[2017-09-10] MEDS: FUROSEMIDE 40 MG TABLET (FP) PO SCH (13:45)
[2017-09-10] MEDS: ALBUTEROL SO4 0.083% IH SOL 2.5 MG/3 ML VIAL.NEB. NEB PRN (20:10)
[2017-09-10] MEDS ORDERED: PT OWN MED DRAWER 7, Y5N ONE (20:38)
[2017-09-10] MEDS: ATORVASTATIN CA 10 MG TABLET (FP) PO SCH (22:03)
[2017-09-10] MEDS: MONTELUKAST NA 10 MG TABLET PO SCH (22:08)
[2017-09-10] MEDS: SERTRALINE HCL 50 MG TABLET (FP) PO SCH (22:11)
[2017-09-11] MEDS: methylPREDNISolone NA SUCC 40 MG/1 ML VIAL IVPUSH SCH ×3 (02:19→17:59)
[2017-09-11] MEDS: HEPARIN NA (PORCINE) 5,000 UNITS/ML 1ML VIAL SQ SCH ×3 (05:54→21:08)
[2017-09-11] MEDS: FUROSEMIDE 40 MG TABLET (FP) PO SCH ×2 (05:54→14:43)
[2017-09-11] MEDS: INSULIN SLIDING SCALE (NOVOLOG) 1 VIAL SQ SCH ×4 (06:49→21:09)
[2017-09-11] MEDS: INSULIN (LEVEMIR) 100 UNITS/ML UNITS SQ SCH (06:50)
[2017-09-11 07:01] LABS: ANION GAP 10 (8-16); BLOOD UREA NITROGEN 24 mg/dL (7-18); CALCIUM 9.5 mg/dL (8.5-10.1); CHLORIDE 101 mmol/L (98-107); CO2 29 mmol/L (21-32); CREATININE 1.4 mg/dL (0.55-1.02); GLUCOSE,RANDOM 299 mg/dL (74-106); POTASSIUM 4.5 mmol/L (3.5-5.1); SODIUM 140 mmol/L (136-145)
--- NOTE | 2017-09-11 08:51 | PN ---
Progress Note, Physician History of Present Illness: PULMONARY ALERT,FEELING BETTER,LESS DYSPNEIC,LESS COUGH - Current Medication List Current Medications: Active Medications Albuterol Sulfate (Ventolin 0.083% Nebulizer Soln -) 1 amp NEB Q4H PRN PRN Reason: SHORT OF BREATH/WHEEZING Last Admin: 09/10/17 20:10 Dose: 1 amp Atorvastatin Calcium (Lipitor -) 10 mg PO HS [facility] Last Admin: 09/10/17 22:03 Dose: 10 mg Budesonide/Formoterol Fumarate (Symbicort 160/4.5mcg -) 2 puff IH BID [facility] Last Admin: 09/10/17 22:12 Dose: 2 puff Carbamazepine (Tegretol Xr -) 300 mg PO BID [facility] Last Admin: 09/10/17 22:15 Dose: 300 mg Furosemide (Lasix -) 80 mg PO BID@0600,1400 [facility] Last Admin: 09/11/17 05:54 Dose: 80 mg Heparin Sodium (Porcine) (Heparin -) 5,000 unit SQ TID [facility] Last Admin: 09/11/17 05:54 Dose: 5,000 unit Hydroxychloroquine Sulfate (Plaquenil -) 200 mg PO BID [facility] Last Admin: 09/10/17 22:06 Dose: 200 mg Azithromycin 250 mg/ Dextrose 250 mls @ 250 mls/hr IVPB DAILY [facility] Last Admin: 09/10/17 09:59 Dose: 250 mls/hr Insulin Aspart (Novolog Vial Sliding Scale -) 1 vial SQ ACHS [facility]; Protocol Last Admin: 09/11/17 06:49 Dose: 8 units Insulin Detemir (Levemir Vial) 32 units SQ AM [facility] Last Admin: 09/11/17 06:50 Dose: 32 units Levothyroxine Sodium (Synthroid -) 50 mcg PO MoTuWeThFrSa@0700 [facility] Last Admin: 09/10/17 06:24 Dose: 50 mcg Methotrexate (Mexate -) 12.5 mg PO We@0730 [facility] Methylprednisolone Sodium Succinate (Solu-Medrol -) 40 mg IVPUSH Q6H-IV [facility] Last Admin: 09/11/17 02:19 Dose: 40 mg Montelukast Sodium (Singulair -) 10 mg PO HS [facility] Last Admin: 09/10/17 22:08 Dose: 10 mg Pramipexole Dihydrochloride (Mirapex -) 0.5 mg PO BID [facility] Last Admin: 09/10/17 22:04 Dose: 0.5 mg Sertraline HCl (Zoloft -) 100 mg PO HS [facility] Last Admin: 09/10/17 22:11 Dose: 100 mg Tiotropium [place] (Spiriva Respimat) 2 puff IH DAILY [facility] Last Admin: 09/10/17 09:58 Dose: 2 puff Topiramate (Topamax -) 100 mg PO BID [facility] Last Admin: 09/10/17 22:12 Dose: 100 mg - Objective Vital Signs: Vital Signs Temperature 97.6 F 09/11/17 06:00 Pulse Rate 77 09/11/17 06:00 Respiratory Rate 20 09/11/17 06:00 Blood Pressure 151/93 09/11/17 06:00 O2 Sat by Pulse Oximetry (%) 100 09/10/17 21:00 Constitutional: Yes: Well Nourished, Calm Eyes: Yes: WNL HENT: Yes: WNL Neck: Yes: WNL Cardiovascular: Yes: Regular Rate and Rhythm, S1, S2 Respiratory: Yes: Wheezes (LESS WHEEZES BILATERALLY) Gastrointestinal: Yes: Normal Bowel Sounds, Soft Extremities: Yes: WNL Labs: CBC, BMP 09/11/17 05:30 Problem List - Problems (1) Acute on chronic respiratory failure with hypoxemia Code(s): J96.21 - ACUTE AND CHRONIC RESPIRATORY FAILURE WITH HYPOXIA (2) Acute exacerbation of chronic obstructive pulmonary disease (COPD) Code(s): J44.1 - CHRONIC OBSTRUCTIVE PULMONARY DISEASE W (ACUTE) EXACERBATION (3) Shortness of breath Code(s): R06.02 - SHORTNESS OF BREATH (4) Hypertension Code(s): I10 - ESSENTIAL (PRIMARY) HYPERTENSION Qualifiers: Hypertension type: essential hypertension Qualified Code(s): I10 - Essential (primary) hypertension (5) SLE (systemic lupus erythematosus) Code(s): M32.9 - SYSTEMIC LUPUS ERYTHEMATOSUS, UNSPECIFIED (6) Seizure disorder Code(s): G40.909 - EPILEPSY, UNSP, NOT INTRACTABLE, WITHOUT STATUS EPILEPTICUS (7) Sleep apnea, obstructive Code(s): G47.33 - OBSTRUCTIVE SLEEP APNEA (ADULT) (PEDIATRIC) Assessment/Plan IMP ACUTE ON CHRONIC HYPOXEMIC RESPIRATORY FAILURE SLOWLY IMPROVING COPD EXACERBATION SLE CP LIKELY MUSCULOSKELETAL DANY ON AUTO-PAP DM HLD OBESITY H/O SEIZURES PLAN STEROID TAPER O2 INHALED BRONCHODILATORS DALIRESP AUTO-PAP HS DVT PROPHYLAXIS PULMONARY REHAB POST DISCHARGE ZITHROMAX 250mg PO DAILY ANTI-INFLAMMATORY MONITOR QT HEARING EVALUATION DR DAI Problem List - Problems (1) Acute on chronic respiratory failure with hypoxemia Code(s): J96.21 - ACUTE AND CHRONIC RESPIRATORY FAILURE WITH HYPOXIA (2) Acute exacerbation of chronic obstructive pulmonary disease (COPD) Code(s): J44.1 - CHRONIC OBSTRUCTIVE PULMONARY DISEASE W (ACUTE) EXACERBATION (3) Shortness of breath Code(s): R06.02 - SHORTNESS OF BREATH (4) Hypertension Code(s): I10 - ESSENTIAL (PRIMARY) HYPERTENSION Qualifiers: Hypertension type: essential hypertension Qualified Code(s): I10 - Essential (primary) hypertension (5) SLE (systemic lupus erythematosus) Code(s): M32.9 - SYSTEMIC LUPUS ERYTHEMATOSUS, UNSPECIFIED (6) Seizure disorder Code(s): G40.909 - EPILEPSY, UNSP, NOT INTRACTABLE, WITHOUT STATUS EPILEPTICUS (7) Sleep apnea, obstructive Code(s): G47.33 - OBSTRUCTIVE SLEEP APNEA (ADULT) (PEDIATRIC)
[2017-09-11] MEDS: TIOTROPIUM BROMIDE (SPIRIVA) RESPIMAT INHALER IH SCH (09:01)
[2017-09-11] MEDS: BUDESONIDE/FORMETEROL FUMARATE 160/4.5 mcg INHALER IH SCH ×2 (09:02→21:12)
[2017-09-11] MEDS: PRAMIPEXOLE DIHYDROCHLORIDE 0.5 MG TABLET PO SCH ×2 (09:03→21:09)
[2017-09-11] MEDS: TOPIRAMATE 100 MG TABLET PO SCH ×2 (09:03→21:13)
[2017-09-11] MEDS: HYDROXYCHLOROQUINE SO4 200 MG TABLET (FP) PO SCH ×2 (09:03→21:11)
--- NOTE | 2017-09-11 09:55 | PN ---
Teaching Attending Note Name of Resident: Hugo Wan ATTENDING PHYSICIAN STATEMENT I saw and evaluated the patient. I reviewed the resident's note and discussed the case with the resident. I agree with the resident's findings and plan as documented. SUBJECTIVE:breathing improved. denies CP, SOB, fever, chills, N/V/C/D OBJECTIVE: Last Vital Signs Temp Pulse Resp BP Pulse Ox 97.6 F 77 20 151/93 100 09/11/17 06:00 09/11/17 06:00 09/11/17 06:00 09/11/17 06:00 09/10/17 21:00 General NAD CV S1 S2 RRR no murmur/rub/galop Lungs no wheezing. improved inspiratory effort Extremities trace pitting edema ASSESSMENT AND PLAN: 61 yo F with PMHx of COPD on 2L home oxygen, CAD s/p cath no stent, HTN, HLD, DM, seizure, SLE, hypothyroid, DANY on CPAP, recently admitted with COPD exacerbation comes back with worsening dyspneax1 day 1. Acute on chronic COPD- currently stable. will titrate down steroids to Q8H. on azithro day 4. supplemental oxygen to maintain spo2 > 90%. nebs and inhalers. pulm on board 2. Hypokalemia- improved 3. NAN- likely dehydration. slightly elevated. possible pre-renal. will cont with lasix and monitor 4. CAD s/p cath 5. HTN- controlled. cont home medication. remains elevated however only received 1 dose of lasix yesterday. will monitor and add medications as needed 6. DM- cont home regimen 7. Seizure- no seizure like activity. on topamax 8. hypothyroid- LT4 9. DANY on cpap 10. SLE- on MTX 11. DVT ppx- Hep sq 12. would benefit from pulmonary rehab on discharge. patient is agreeable
[2017-09-11] MEDS ORDERED: PT OWN MED DRAWER 7, Y5N ONE ×2 (10:06→20:32)
[2017-09-11] MEDS: AZITHROMYCIN IVPB 250 MG in DEXTROSE 5%-WATER - 250 ML IVPB SCH (12:22)
--- NOTE | 2017-09-11 12:43 | PN ---
Physical Exam: SUBJECTIVE: Patient seen and examined. No acute events overnight. Pt. is breathing a little easier. Chest pain has decreased. Pt. only needed 1 nebulizer treatment yesterday. Pt. still endorses MYERS(walking to the bathroom). OBJECTIVE: Vital Signs Period Temp Pulse Resp BP Sys/[place] Pulse Ox Last 24 Hr 96.4 F-99.2 F 58-79 20-20 140-153/68-93 100-100 GENERAL: The patient is awake, alert, and fully oriented, in no acute distress sitting up eating breakfast. LUNGS:Decreased breath sounds equal, clear to auscultation bilaterally, no wheezes, no crackles, no accessory muscle use. HEART: Regular rate and rhythm, S1, S2 without murmur, No JVD EXTREMITIES: 2+ dorsal pedal pulses, well-perfused, no edema, RLE- cool to touch , LLE- warm PSYCH: Normal mood, normal affect. SKIN: Warm, dry, normal turgor Laboratory Results - last 24 hr 09/10/17 09/10/17 09/11/17 16:57 22:34 05:30 Sodium 140 Potassium 4.5 Chloride 101 Carbon Dioxide 29 Anion Gap 10 BUN 24 H Creatinine 1.4 H Creat Clearance w eGFR 38.23 POC Glucometer 338 216 Random Glucose 299 H Calcium 9.5 09/11/17 09/11/17 06:03 12:21 Sodium Potassium Chloride Carbon Dioxide Anion Gap BUN Creatinine Creat Clearance w eGFR POC Glucometer 312 222 Random Glucose Calcium Active Medications Current Medications Albuterol Sulfate (Ventolin 0.083% Nebulizer Soln -) 1 amp NEB Q4H PRN PRN Reason: SHORT OF BREATH/WHEEZING Last Admin: 09/10/17 20:10 Dose: 1 amp Atorvastatin Calcium (Lipitor -) 10 mg PO HS [facility] Last Admin: 09/10/17 22:03 Dose: 10 mg Budesonide/Formoterol Fumarate (Symbicort 160/4.5mcg -) 2 puff IH BID [facility] Last Admin: 09/11/17 09:02 Dose: 2 puff Carbamazepine (Tegretol Xr -) 300 mg PO BID [facility] Last Admin: 09/11/17 09:03 Dose: 300 mg Furosemide (Lasix -) 80 mg PO BID@0600,1400 [facility] Last Admin: 09/11/17 05:54 Dose: 80 mg Heparin Sodium (Porcine) (Heparin -) 5,000 unit SQ TID [facility] Last Admin: 09/11/17 05:54 Dose: 5,000 unit Hydroxychloroquine Sulfate (Plaquenil -) 200 mg PO BID [facility] Last Admin: 09/11/17 09:03 Dose: 200 mg Azithromycin 250 mg/ Dextrose 250 mls @ 250 mls/hr IVPB DAILY [facility] Last Admin: 09/11/17 12:22 Dose: Not Given Insulin Aspart (Novolog Vial Sliding Scale -) 1 vial SQ ACHS [facility]; Protocol Last Admin: 09/11/17 12:22 Dose: Not Given Insulin Detemir (Levemir Vial) 32 units SQ AM [facility] Last Admin: 09/11/17 06:50 Dose: 32 units Levothyroxine Sodium (Synthroid -) 50 mcg PO MoTuWeThFrSa@0700 [facility] Last Admin: 09/10/17 06:24 Dose: 50 mcg Methotrexate (Mexate -) 12.5 mg PO We@0730 [facility] Methylprednisolone Sodium Succinate (Solu-Medrol -) 40 mg IVPUSH Q8H-IV [facility] Last Admin: 09/11/17 09:02 Dose: 40 mg Montelukast Sodium (Singulair -) 10 mg PO [facility] Last Admin: 09/10/17 22:08 Dose: 10 mg Pramipexole Dihydrochloride (Mirapex -) 0.5 mg PO BID [facility] Last Admin: 09/11/17 09:03 Dose: 0.5 mg Sertraline HCl (Zoloft -) 100 mg PO [facility] Last Admin: 09/10/17 22:11 Dose: 100 mg Tiotropium [place] (Spiriva Respimat) 2 puff IH DAILY [facility] Last Admin: 09/11/17 09:01 Dose: 2 puff Topiramate (Topamax -) 100 mg PO BID [facility] Last Admin: 09/11/17 09:03 Dose: 100 mg ASSESSMENT/PLAN: 62 yo F PMH of lupus, IDDM, asthma, COPD (3l home O2), HLD, seizure disorder, morbid obesity, and multiple admissions for COPD exacerbations p/w worsening SOB x1d. COPD exacerbation - On 3L O2 at home and completed her prednisone taper to 10mg from last admission 1 mo ago. - low suspicion for cardiac etiology for COPD exacerbation( neg. Trops, no acute EKG changes, baseline BNP, CP reproducible with sternal rub) - c/w Duoneb, symbicort, and Spiriva - decrease solumedrol to 40mg q8h -3 L O2 NC maintain O2 sat 89-92% -CPAP at night, pt has her own. -Respiratory therapist appreciated -Pulmonology consult appreciated: Pt. will start Daliresp on Discharge as outpatient, decreased IV steroids to 40mg q8h, c/w supplemental o2. -Outpatient pulmonary rehab and slow steroid taper on discharge Hypo K - 3.4 on admission(09/07/17) -one dose 40meq KCL PO -monitor BMP -K: 3.8(09/08/17), resolved DM -holding home lispro and glipizide -c/w home dose lantus and implement sliding scale insulin regimen. -BGM ACHS CHF -restarted Lasix 80mg PO BID (09/10/17) -monitor fluid status and Cr. Obesity - -Will provide necessary assistance, counseling and positive reinforcement to facilitate weight loss. -Consult brusher operator -Pt. has detailed why weight loss is difficult. Pt. needs high dose steroids frequently and this makes it easier for her to gain weight. Pt. has had lap- band surgery with good weight loss in the past. Weight was regained after multiple COPD exacerbations necessitating high dose steroids. HCM -c/w home dose meds for COPD, asthma, HTN, hypothyroid, HLD, seizure, CAD, SLE #FEN -no IV fluids at this time -replete lytes as needed -low sodium/fat/ diabetic diet #DVTppx SQH 5000u tid #Dispo -admit to tele -going from Tele to the floor -Full code Visit type - Emergency Visit Emergency Visit: Yes ED Registration Date: 09/08/17 Care time: The patient presented to the Emergency Department on the above date and was hospitalized for further evaluation of their emergent condition. - New Patient This patient is new to me today: No - Critical Care Critical Care patient: No - Discharge Referral Referred to [facility] Med P.C.: No
[2017-09-11] MEDS ORDERED: ONDANSETRON 4 MG TABLET PO ONE (17:00)
[2017-09-11] MEDS: ATORVASTATIN CA 10 MG TABLET (FP) PO SCH (21:08)
[2017-09-11] MEDS: MONTELUKAST NA 10 MG TABLET PO SCH (21:11)
[2017-09-11] MEDS: SERTRALINE HCL 50 MG TABLET (FP) PO SCH (21:13)
[2017-09-12] MEDS: methylPREDNISolone NA SUCC 40 MG/1 ML VIAL IVPUSH SCH ×3 (03:15→17:58)
[2017-09-12] MEDS: METOCLOPRAMIDE HCL 10 MG TABLET (FP) PO PRN (05:50)
[2017-09-12] MEDS: FUROSEMIDE 40 MG TABLET (FP) PO SCH (06:18)
[2017-09-12] MEDS: LEVOTHYROXINE NA 50 MCG TABLET (FP) PO SCH (06:18)
[2017-09-12] MEDS: HEPARIN NA (PORCINE) 5,000 UNITS/ML 1ML VIAL SQ SCH ×3 (06:18→21:50)
[2017-09-12] MEDS: INSULIN SLIDING SCALE (NOVOLOG) 1 VIAL SQ SCH ×4 (06:18→22:02)
[2017-09-12] MEDS: INSULIN (LEVEMIR) 100 UNITS/ML UNITS SQ SCH (06:19)
[2017-09-12 08:09] LABS: ANION GAP 8 (8-16); BLOOD UREA NITROGEN 28 mg/dL (7-18); CALCIUM 9.5 mg/dL (8.5-10.1); CHLORIDE 95 mmol/L (98-107); CO2 33 mmol/L (21-32); CREATININE 1.6 mg/dL (0.55-1.02); GLUCOSE,RANDOM 281 mg/dL (74-106); MAGNESIUM 2.3 mg/dL (1.8-2.4); PHOSPHOROUS 4.7 mg/dL (2.5-4.9); POTASSIUM 4.3 mmol/L (3.5-5.1); SODIUM 136 mmol/L (136-145)
[2017-09-12] MEDS ORDERED: PT OWN MED DRAWER 7, Y5N ONE ×3 (09:25→21:37)
[2017-09-12] MEDS: PRAMIPEXOLE DIHYDROCHLORIDE 0.5 MG TABLET PO SCH ×2 (09:35→21:49)
[2017-09-12] MEDS: TOPIRAMATE 100 MG TABLET PO SCH ×2 (09:35→21:49)
[2017-09-12] MEDS: AZITHROMYCIN IVPB 250 MG in DEXTROSE 5%-WATER - 250 ML IVPB SCH (09:36)
[2017-09-12] MEDS: HYDROXYCHLOROQUINE SO4 200 MG TABLET (FP) PO SCH ×2 (09:36→21:49)
[2017-09-12] MEDS: TIOTROPIUM BROMIDE (SPIRIVA) RESPIMAT INHALER IH SCH (09:39)
[2017-09-12] MEDS: BUDESONIDE/FORMETEROL FUMARATE 160/4.5 mcg INHALER IH SCH ×2 (09:39→21:50)
--- NOTE | 2017-09-12 12:56 | PN ---
Teaching Attending Note Name of Resident: Taras Jordan ATTENDING PHYSICIAN STATEMENT I saw and evaluated the patient. I reviewed the resident's note and discussed the case with the resident. I agree with the resident's findings and plan as documented. SUBJECTIVE:continues to have cough. is not able to walk past the door without becoming dyspnic. denies CP, SOB, fever, chills, N/V/C/D OBJECTIVE: Last Vital Signs Temp Pulse Resp BP Pulse Ox 98.9 F 85 24 108/53 94 L 09/12/17 10:00 09/12/17 11:29 09/12/17 10:00 09/12/17 10:00 09/12/17 11:29 Intake & Output 09/09/17 09/10/17 09/11/17 09/12/17 23:59 23:59 23:59 23:59 Intake Total 182 688 6525 Balance 291 467 6840 Weight 267 lb 265 lb 12.8 oz 265 lb 12.8 oz 262 lb 9.6 oz General NAD CV S1 S2 RRR no murmur/rub/galop Lungs no wheezing. improved inspiratory effort Extremities no pitting edema ASSESSMENT AND PLAN: 61 yo F with PMHx of COPD on 2L home oxygen, CAD s/p cath no stent, HTN, HLD, DM, seizure, SLE, hypothyroid, DANY on CPAP, recently admitted with COPD exacerbation comes back with worsening dyspneax1 day 1. Acute on chronic COPD- currently stable. cont current steroids dosing. q8H. on azithro day 5. supplemental oxygen to maintain spo2 > 90%. nebs and inhalers. pulm on board 2. Hypokalemia- improved 3. NAN- likely medication induced. started to trend up with re-starting her lasix. pt currently appears euvolemic. check BNP. will d/c lasix. monitor 4. CAD s/p cath 5. HTN- controlled. cont home medication. 6. DM- cont home regimen 7. Seizure- no seizure like activity. on topamax 8. hypothyroid- LT4 9. DANY on cpap 10. SLE- on MTX 11. DVT ppx- Hep sq 12. would benefit from pulmonary rehab on discharge. patient is agreeable
--- NOTE | 2017-09-12 13:13 | PN ---
Progress Note (short form) - Note Progress Note: PULMONARY States breathing slightly improved. Still cough and wheezing. Vital Signs Period Temp Pulse Resp BP Sys/Oconnell Pulse Ox Last 24 Hr 97.0 F-99.1 F 7-88 20-24 108-157/53-90 94-100 Gen: NAD at rest Heart: RRR Lung: distant breath sounds, no wheezes Abd: soft, nontender Ext: no edema CBC, BMP 09/09/17 08:22 09/12/17 07:30 Active Medications Albuterol Sulfate (Ventolin 0.083% Nebulizer Soln -) 1 amp NEB Q4H PRN PRN Reason: SHORT OF BREATH/WHEEZING Last Admin: 09/10/17 20:10 Dose: 1 amp Atorvastatin Calcium (Lipitor -) 10 mg PO HS [facility] Last Admin: 09/11/17 21:08 Dose: 10 mg Budesonide/Formoterol Fumarate (Symbicort 160/4.5mcg -) 2 puff IH BID [facility] Last Admin: 09/12/17 09:39 Dose: 2 puff Carbamazepine (Tegretol Xr -) 300 mg PO BID [facility] Last Admin: 09/12/17 09:35 Dose: 300 mg Heparin Sodium (Porcine) (Heparin -) 5,000 unit SQ TID [facility] Last Admin: 09/12/17 06:18 Dose: 5,000 unit Hydroxychloroquine Sulfate (Plaquenil -) 200 mg PO BID [facility] Last Admin: 09/12/17 09:36 Dose: 200 mg Azithromycin 250 mg/ Dextrose 250 mls @ 250 mls/hr IVPB DAILY [facility] Last Admin: 09/12/17 09:36 Dose: 250 mls/hr Insulin Aspart (Novolog Vial Sliding Scale -) 1 vial SQ ACHS [facility]; Protocol Last Admin: 09/12/17 11:08 Dose: 12 units Insulin Detemir (Levemir Vial) 32 units SQ AM [facility] Last Admin: 09/12/17 06:19 Dose: 32 units Levothyroxine Sodium (Synthroid -) 50 mcg PO MoTuWeThFrSa@0700 [facility] Last Admin: 09/12/17 06:18 Dose: 50 mcg Methotrexate (Mexate -) 12.5 mg PO We@0730 [facility] Methylprednisolone Sodium Succinate (Solu-Medrol -) 40 mg IVPUSH Q8H-IV [facility] Last Admin: 09/12/17 09:34 Dose: 40 mg Metoclopramide HCl (Reglan -) 10 mg PO Q6H PRN PRN Reason: NAUSEA Last Admin: 09/12/17 05:50 Dose: 10 mg Montelukast Sodium (Singulair -) 10 mg PO HS [facility] Last Admin: 09/11/17 21:11 Dose: 10 mg Pramipexole Dihydrochloride (Mirapex -) 0.5 mg PO BID [facility] Last Admin: 09/12/17 09:35 Dose: 0.5 mg Sertraline HCl (Zoloft -) 100 mg PO HS [facility] Last Admin: 09/11/17 21:13 Dose: 100 mg Tiotropium [place] (Spiriva Respimat) 2 puff IH DAILY [facility] Last Admin: 09/12/17 09:39 Dose: 2 puff Topiramate (Topamax -) 100 mg PO BID [facility] Last Admin: 09/12/17 09:35 Dose: 100 mg A/P Acute COPD Exacerbation CAD Acute Kidney Injury HTN DM Obstructive Sleep Apnea - continue medrol at current dose - can taper in AM if continues to improve - inhaled bronchodilators - O2 to keep SpO2 >90% - CPAP at night - DVT prophylaxis
[2017-09-12 13:44] LABS: N-TERMINAL BNP 88.17 pg/ml (5-125)
--- NOTE | 2017-09-12 16:31 | PN ---
Physical Exam: SUBJECTIVE: Patient seen and examined at bed side , no acute events over night report some dry cough, denies any wheezing or chest pain , walk to brayan room with some SOB. sat 94 % on 3 L NC . OBJECTIVE: Vital Signs Period Temp Pulse Resp BP Sys/Oconnell Pulse Ox Last 24 Hr 97.0 F-99.1 F 60-97 20-26 108-157/53-90 94-100 GENERAL: AAOx3 in NAD HEAD: NC/AT EYES: EOMI, Conjunctiva clear, sclera anicteric ENT: moist mucous membrane NECK: Supple, no JVD LUNGS: distant breath sounds, no wheezing no accessory muscle use. HEART: RRR, NSR, normal s1, s2, murmur no M/R/G ABDOMEN: Soft, ND, NT, +BS 4 Q, no CVA Tenderness LOWER EXTREMITIES: no edema, +2DP pulse, NEUROLOGICAL: No focal deficit. Normal speech. gait not observed. PSYCHIATRIC: Cooperative. Good eye contact. Appropriate mood and affect. SKIN: Warm, dry, Laboratory Results - last 24 hr 09/11/17 09/11/17 09/12/17 17:48 21:04 05:46 Sodium Potassium Chloride Carbon Dioxide Anion Gap BUN Creatinine Creat Clearance w eGFR POC Glucometer 324 398 235 Random Glucose Calcium Phosphorus Magnesium B-Natriuretic Peptide 09/12/17 09/12/17 07:30 07:30 Sodium 136 Potassium 4.3 Chloride 95 L Carbon Dioxide 33 H Anion Gap 8 BUN 28 H Creatinine 1.6 H Creat Clearance w eGFR 32.77 POC Glucometer Random Glucose 281 H Calcium 9.5 Phosphorus 4.7 Magnesium 2.3 B-Natriuretic Peptide 88.17 Cancelled Active Medications Generic Name Dose Route Start Last Admin Trade Name Freq PRN Reason Stop Dose Admin Albuterol Sulfate 1 amp 09/09/17 16:48 09/10/17 20:10 Ventolin 0.083% Nebulizer Soln - NEB 1 amp Q4H PRN Administration SHORT OF BREATH/WHEEZING Atorvastatin Calcium 10 mg 09/09/17 22:00 09/11/17 21:08 Lipitor - PO 10 mg HS [facility] Administration Budesonide/Formoterol Fumarate 2 puff 09/09/17 22:00 09/12/17 09:39 Symbicort 160/4.5mcg - IH 2 puff BID [facility] Administration Carbamazepine 300 mg 09/09/17 22:00 09/12/17 09:35 Tegretol Xr - PO 300 mg BID [facility] Administration Heparin Sodium (Porcine) 5,000 unit 09/09/17 22:00 09/12/17 13:25 Heparin - SQ 5,000 unit TID [facility] Administration Hydroxychloroquine Sulfate 200 mg 09/09/17 22:00 09/12/17 09:36 Plaquenil - PO 200 mg BID [facility] Administration Azithromycin 250 mg/ Dextrose 250 mls @ 250 mls/hr 09/10/17 10:00 09/12/17 09 :36 IVPB 250 mls/hr DAILY [facility] Administration Insulin Aspart 1 vial 09/09/17 22:00 09/12/17 11:08 Novolog Vial Sliding Scale - SQ 12 units ACHS [facility] Administration Protocol Insulin Detemir 32 units 09/10/17 07:00 09/12/17 06:19 Levemir Vial SQ 32 units AM [facility] Administration Levothyroxine Sodium 50 mcg 09/10/17 07:00 09/12/17 06:18 Synthroid - PO 50 mcg MoTuWeThFrSa@0700 [facility] Administration Methotrexate 12.5 mg 09/14/17 07:30 Mexate - PO We@0730 [facility] Methylprednisolone Sodium Succinate 40 mg 09/11/17 10:00 09/12/17 09:34 Solu-Medrol - IVPUSH 40 mg Q8H-IV [facility] Administration Metoclopramide HCl 10 mg 09/11/17 17:45 09/12/17 05:50 Reglan - PO 10 mg Q6H PRN Administration NAUSEA Montelukast Sodium 10 mg 09/09/17 22:00 09/11/17 21:11 Singulair - PO 10 mg HS [facility] Administration Pramipexole Dihydrochloride 0.5 mg 09/09/17 22:00 09/12/17 09:35 Mirapex - PO 0.5 mg BID [facility] Administration Sertraline HCl 100 mg 09/09/17 22:00 09/11/17 21:13 Zoloft - PO 100 mg HS [facility] Administration Tiotropium [place] 2 puff 09/10/17 10:00 09/12/17 09:39 Spiriva Respimat IH 2 puff DAILY [facility] Administration Topiramate 100 mg 09/09/17 22:00 09/12/17 09:35 Topamax - PO 100 mg BID [facility] Administration CBC, BMP 09/09/17 08:22 09/12/17 07:30 ASSESSMENT/PLAN: 62 yo F PMH of lupus, IDDM, asthma, COPD (3l home O2), HLD, seizure disorder, morbid obesity, and multiple admissions for COPD exacerbations p/w worsening SOB x1d. #COPD exacerbation * On 3L O2 at home and completed her prednisone taper to 10mg from last admission 1 mo ago. * c/w Duoneb, symbicort, and Spiriva * cont solumedrol to 40mg q8h will decrease in AM if no wheezes and no sob * 3 L O2 NC maintain O2 sat 89-92% * CPAP at night, pt has her own. * Respiratory therapist appreciated * Pulmonology consult appreciated: Pt. will start Daliresp on Discharge as outpatient, decreased IV steroids to 40mg q8h, c/w supplemental o2. * Outpatient pulmonary rehab and slow steroid taper on discharge * incentive spirometry # NAN * liklely due to med side effects * will hold lasix and monitor BuN/Cr #Hypo K , resolved * monitor BMP #DM , uncontrolled 2/2 steroids use * holding home lispro and glipizide * c/w home dose lantus 32 units and implement sliding scale insulin regimen. * BGM ACHS #CHF * hold lasix due to worsening kidney function * monitor fluid status and Cr. #Obesity ,likley due to high oral intake pluse steroid use * Will provide necessary assistance, counseling and positive reinforcement to facilitate weight loss. * Consult manager balance * Pt. has detailed why weight loss is difficult. Pt. needs high dose steroids frequently and this makes it easier for her to gain weight. Pt. has had lap- band surgery with good weight loss in the past. Weight was regained after multiple COPD exacerbations necessitating high dose steroids. #HCM * c/w home dose meds for COPD, asthma, HTN, hypothyroid, HLD, seizure, CAD, SLE #FEN * no standing fluids * monitor lytes * low sodium/fat/ diabetic diet #DVTppx * Hep SQ 5000u tid #Dispo * monitor on tele * Full code Visit type - Emergency Visit Emergency Visit: Yes ED Registration Date: 09/08/17 Care time: The patient presented to the Emergency Department on the above date and was hospitalized for further evaluation of their emergent condition. - New Patient This patient is new to me today: Yes Date on this admission: 09/12/17 - Critical Care Critical Care patient: No
[2017-09-12] MEDS: SERTRALINE HCL 50 MG TABLET (FP) PO SCH (21:49)
[2017-09-12] MEDS: MONTELUKAST NA 10 MG TABLET PO SCH (21:49)
[2017-09-12] MEDS: ATORVASTATIN CA 10 MG TABLET (FP) PO SCH (21:49)
[2017-09-12] MEDS ORDERED: INSULIN (NOVOLOG) ASPART 100 UNITS/ML 10ML VIAL ONE (21:57)
[2017-09-13] MEDS: methylPREDNISolone NA SUCC 40 MG/1 ML VIAL IVPUSH SCH ×4 (02:19→21:57)
[2017-09-13] MEDS: LEVOTHYROXINE NA 50 MCG TABLET (FP) PO SCH (06:13)
[2017-09-13] MEDS: INSULIN (LEVEMIR) 100 UNITS/ML UNITS SQ SCH (06:13)
[2017-09-13] MEDS: INSULIN SLIDING SCALE (NOVOLOG) 1 VIAL SQ SCH ×4 (06:13→21:55)
[2017-09-13] MEDS: HEPARIN NA (PORCINE) 5,000 UNITS/ML 1ML VIAL SQ SCH ×3 (06:13→21:49)
[2017-09-13] MEDS ORDERED: INSULIN (NOVOLOG) ASPART 100 UNITS/ML 10ML VIAL ONE ×2 (06:16→11:05)
[2017-09-13 08:54] LABS: ANION GAP 12 (8-16); BLOOD UREA NITROGEN 27 mg/dL (7-18); CALCIUM 9.7 mg/dL (8.5-10.1); CHLORIDE 100 mmol/L (98-107); CO2 27 mmol/L (21-32); CREATININE 1.3 mg/dL (0.55-1.02); GLUCOSE,RANDOM 228 mg/dL (74-106); SODIUM 139 mmol/L (136-145)
[2017-09-13 08:55] LABS: POTASSIUM 4.3 mmol/L (3.5-5.1)
[2017-09-13] MEDS ORDERED: PT OWN MED DRAWER 7, Y5N ONE ×2 (09:47→20:54)
[2017-09-13] MEDS: HYDROXYCHLOROQUINE SO4 200 MG TABLET (FP) PO SCH ×2 (10:06→21:50)
[2017-09-13] MEDS: PRAMIPEXOLE DIHYDROCHLORIDE 0.5 MG TABLET PO SCH ×2 (10:06→21:50)
[2017-09-13] MEDS: TOPIRAMATE 100 MG TABLET PO SCH ×2 (10:07→21:56)
[2017-09-13] MEDS: TIOTROPIUM BROMIDE (SPIRIVA) RESPIMAT INHALER IH SCH (10:08)
[2017-09-13] MEDS: BUDESONIDE/FORMETEROL FUMARATE 160/4.5 mcg INHALER IH SCH ×2 (10:08→21:52)
[2017-09-13] MEDS: AZITHROMYCIN IVPB 250 MG in DEXTROSE 5%-WATER - 250 ML IVPB SCH (10:10)
--- NOTE | 2017-09-13 10:21 | PN ---
Progress Note, Physician History of Present Illness: pulmonary alert,feeling better,less dyspneic, cough slowly improving - Current Medication List Current Medications: Active Medications Albuterol Sulfate (Ventolin 0.083% Nebulizer Soln -) 1 amp NEB Q4H PRN PRN Reason: SHORT OF BREATH/WHEEZING Last Admin: 09/10/17 20:10 Dose: 1 amp Atorvastatin Calcium (Lipitor -) 10 mg PO HS [facility] Last Admin: 09/12/17 21:49 Dose: 10 mg Budesonide/Formoterol Fumarate (Symbicort 160/4.5mcg -) 2 puff IH BID [facility] Last Admin: 09/13/17 10:08 Dose: 2 puff Carbamazepine (Tegretol Xr -) 300 mg PO BID [facility] Last Admin: 09/13/17 10:07 Dose: 300 mg Heparin Sodium (Porcine) (Heparin -) 5,000 unit SQ TID [facility] Last Admin: 09/13/17 06:13 Dose: 5,000 unit Hydroxychloroquine Sulfate (Plaquenil -) 200 mg PO BID [facility] Last Admin: 09/13/17 10:06 Dose: 200 mg Azithromycin 250 mg/ Dextrose 250 mls @ 250 mls/hr IVPB DAILY [facility] Last Admin: 09/13/17 10:10 Dose: 250 mls/hr Insulin Aspart (Novolog Vial Sliding Scale -) 1 vial SQ ACHS [facility]; Protocol Last Admin: 09/13/17 06:13 Dose: 8 units Insulin Detemir (Levemir Vial) 32 units SQ AM [facility] Last Admin: 09/13/17 06:13 Dose: 32 units Levothyroxine Sodium (Synthroid -) 50 mcg PO MoTuWeThFrSa@0700 [facility] Last Admin: 09/13/17 06:13 Dose: 50 mcg Methotrexate (Mexate -) 12.5 mg PO We@0730 [facility] Methylprednisolone Sodium Succinate (Solu-Medrol -) 40 mg IVPUSH Q8H-IV [facility] Last Admin: 09/13/17 10:05 Dose: 40 mg Metoclopramide HCl (Reglan -) 10 mg PO Q6H PRN PRN Reason: NAUSEA Last Admin: 09/12/17 05:50 Dose: 10 mg Montelukast Sodium (Singulair -) 10 mg PO HS [facility] Last Admin: 09/12/17 21:49 Dose: 10 mg Pramipexole Dihydrochloride (Mirapex -) 0.5 mg PO BID [facility] Last Admin: 09/13/17 10:06 Dose: 0.5 mg Sertraline HCl (Zoloft -) 100 mg PO [facility] Last Admin: 09/12/17 21:49 Dose: 100 mg Tiotropium [place] (Spiriva Respimat) 2 puff IH DAILY [facility] Last Admin: 09/13/17 10:08 Dose: 2 puff Topiramate (Topamax -) 100 mg PO BID [facility] Last Admin: 09/13/17 10:07 Dose: 100 mg - Objective Vital Signs: Vital Signs Temperature 98.3 F 09/13/17 09:03 Pulse Rate 65 09/13/17 09:03 Respiratory Rate 20 09/13/17 09:03 Blood Pressure 139/80 09/13/17 09:03 O2 Sat by Pulse Oximetry (%) 100 09/13/17 09:00 Constitutional: Yes: Well Nourished, Calm Eyes: Yes: WNL HENT: Yes: WNL Neck: Yes: WNL Cardiovascular: Yes: Regular Rate and Rhythm, S1, S2 Respiratory: Yes: Wheezes (few scattered trey wheeezes) Gastrointestinal: Yes: Normal Bowel Sounds, Soft Extremities: Yes: WNL Edema: No Labs: 09/13/17 08:15 Problem List - Problems (1) Acute on chronic respiratory failure with hypoxemia Code(s): J96.21 - ACUTE AND CHRONIC RESPIRATORY FAILURE WITH HYPOXIA (2) Acute exacerbation of chronic obstructive pulmonary disease (COPD) Code(s): J44.1 - CHRONIC OBSTRUCTIVE PULMONARY DISEASE W (ACUTE) EXACERBATION (3) Shortness of breath Code(s): R06.02 - SHORTNESS OF BREATH (4) Hypertension Code(s): I10 - ESSENTIAL (PRIMARY) HYPERTENSION Qualifiers: Hypertension type: essential hypertension Qualified Code(s): I10 - Essential (primary) hypertension (5) SLE (systemic lupus erythematosus) Code(s): M32.9 - SYSTEMIC LUPUS ERYTHEMATOSUS, UNSPECIFIED (6) Seizure disorder Code(s): G40.909 - EPILEPSY, UNSP, NOT INTRACTABLE, WITHOUT STATUS EPILEPTICUS (7) Sleep apnea, obstructive Code(s): G47.33 - OBSTRUCTIVE SLEEP APNEA (ADULT) (PEDIATRIC) Assessment/Plan IMP ACUTE ON CHRONIC HYPOXEMIC RESPIRATORY FAILURE SLOWLY IMPROVING COPD EXACERBATION SLE CP LIKELY MUSCULOSKELETAL DANY ON AUTO-PAP DM HLD OBESITY H/O SEIZURES PLAN CONTINUE STEROID TAPER O2 INHALED BRONCHODILATORS DALIRESP AUTO-PAP HS DVT PROPHYLAXIS PULMONARY REHAB POST DISCHARGE ZITHROMAX 250mg PO DAILY ANTI-INFLAMMATORY MONITOR QT HEARING EVALUATION DR DAI Problem List - Problems (1) Acute on chronic respiratory failure with hypoxemia Code(s): J96.21 - ACUTE AND CHRONIC RESPIRATORY FAILURE WITH HYPOXIA (2) Acute exacerbation of chronic obstructive pulmonary disease (COPD) Code(s): J44.1 - CHRONIC OBSTRUCTIVE PULMONARY DISEASE W (ACUTE) EXACERBATION (3) Shortness of breath Code(s): R06.02 - SHORTNESS OF BREATH (4) Hypertension Code(s): I10 - ESSENTIAL (PRIMARY) HYPERTENSION Qualifiers: Hypertension type: essential hypertension Qualified Code(s): I10 - Essential (primary) hypertension (5) SLE (systemic lupus erythematosus) Code(s): M32.9 - SYSTEMIC LUPUS ERYTHEMATOSUS, UNSPECIFIED (6) Seizure disorder Code(s): G40.909 - EPILEPSY, UNSP, NOT INTRACTABLE, WITHOUT STATUS EPILEPTICUS (7) Sleep apnea, obstructive Code(s): G47.33 - OBSTRUCTIVE SLEEP APNEA (ADULT) (PEDIATRIC)
[2017-09-13] MEDS: METOCLOPRAMIDE HCL 10 MG TABLET (FP) PO PRN (11:27)
--- NOTE | 2017-09-13 13:41 | PN ---
Physical Exam: SUBJECTIVE: Patient seen and examined at bed side , no acute events over night denies any wheezing or chest pain, walk to bath room with some SOB. sat 95 % on 3 L NC. on home CPAP at night OBJECTIVE: Vital Signs Period Temp Pulse Resp BP Sys/Oconnell Pulse Ox Last 24 Hr 98.0 F-99.1 F 60-97 18-26 128-140/53-89 99-100 GENERAL: AAOx3 in NAD. on home CPAP HEAD: NC/AT EYES: EOMI, Conjunctiva clear, sclera anicteric ENT: MMM NECK: Supple, no JVD LUNGS: distant breath sounds w/ good effort no wheezing no accessory muscle use. HEART: RRR, NSR, normal s1, s2, murmur no M/R/G ABDOMEN: Soft, ND, NT, +BS 4 Q, no CVA Tenderness LOWER EXTREMITIES: no edema, +2DP pulse, NEUROLOGICAL: No focal deficit. Normal speech. gait not observed. PSYCHIATRIC: Cooperative. Good eye contact. Appropriate mood and affect. SKIN: Warm, dry, Laboratory Results - last 24 hr 09/12/17 09/12/17 09/13/17 07:30 17:03 05:48 Sodium Potassium Chloride Carbon Dioxide Anion Gap BUN Creatinine Creat Clearance w eGFR POC Glucometer 237 307 Random Glucose Calcium B-Natriuretic Peptide 88.17 09/13/17 09/13/17 08:15 11:02 Sodium 139 Potassium 4.3 Chloride 100 Carbon Dioxide 27 Anion Gap 12 BUN 27 H Creatinine 1.3 H Creat Clearance w eGFR 41.64 POC Glucometer 317 Random Glucose 228 H Calcium 9.7 B-Natriuretic Peptide Active Medications Generic Name Dose Route Start Last Admin Trade Name Freq PRN Reason Stop Dose Admin Albuterol Sulfate 1 amp 09/09/17 16:48 09/10/17 20:10 Ventolin 0.083% Nebulizer Soln - NEB 1 amp Q4H PRN Administration SHORT OF BREATH/WHEEZING Atorvastatin Calcium 10 mg 09/09/17 22:00 09/12/17 21:49 Lipitor - PO 10 mg HS [facility] Administration Budesonide/Formoterol Fumarate 2 puff 09/09/17 22:00 09/13/17 10:08 Symbicort 160/4.5mcg - IH 2 puff BID [facility] Administration Carbamazepine 300 mg 09/09/17 22:00 09/13/17 10:07 Tegretol Xr - PO 300 mg BID [facility] Administration Heparin Sodium (Porcine) 5,000 unit 09/09/17 22:00 09/13/17 13:14 Heparin - SQ 5,000 unit TID [facility] Administration Hydroxychloroquine Sulfate 200 mg 09/09/17 22:00 09/13/17 10:06 Plaquenil - PO 200 mg BID [facility] Administration Azithromycin 250 mg/ Dextrose 250 mls @ 250 mls/hr 09/10/17 10:00 09/13/17 10 :10 IVPB 250 mls/hr DAILY [facility] Administration Insulin Aspart 1 vial 09/09/17 22:00 09/13/17 11:06 Novolog Vial Sliding Scale - SQ 8 units ACHS [facility] Administration Protocol Insulin Detemir 32 units 09/10/17 07:00 09/13/17 06:13 Levemir Vial SQ 32 units AM [facility] Administration Levothyroxine Sodium 50 mcg 09/10/17 07:00 09/13/17 06:13 Synthroid - PO 50 mcg MoTuWeThFrSa@0700 [facility] Administration Methotrexate 12.5 mg 09/14/17 07:30 Mexate - PO We@0730 [facility] Methylprednisolone Sodium Succinate 40 mg 09/13/17 10:30 09/13/17 11:09 Solu-Medrol - IVPUSH Not Given Q12H [facility] Metoclopramide HCl 10 mg 09/11/17 17:45 09/13/17 11:27 Reglan - PO 10 mg Q6H PRN Administration NAUSEA Montelukast Sodium 10 mg 09/09/17 22:00 09/12/17 21:49 Singulair - PO 10 mg HS [facility] Administration Pramipexole Dihydrochloride 0.5 mg 09/09/17 22:00 09/13/17 10:06 Mirapex - PO 0.5 mg BID [facility] Administration Sertraline HCl 100 mg 09/09/17 22:00 09/12/17 21:49 Zoloft - PO 100 mg HS [facility] Administration Tiotropium [place] 2 puff 09/10/17 10:00 09/13/17 10:08 Spiriva Respimat IH 2 puff DAILY [facility] Administration Topiramate 100 mg 09/09/17 22:00 09/13/17 10:07 Topamax - PO 100 mg BID [facility] Administration ASSESSMENT/PLAN: 62 yo F PMH of lupus, IDDM, asthma, COPD (3l home O2), HLD, seizure disorder, morbid obesity, and multiple admissions for COPD exacerbations p/w worsening SOB x1d. #COPD exacerbation - pt improving. hope to switch to PO steroids daquan * On 3L O2 at home and completed her prednisone taper to 10mg from last admission 1 mo ago. * c/w Duoneb, symbicort, and Spiriva * decrease to solumedrol 40mg q12h will switch to PO in AM if no wheezes/sob/if cont to improve * azitrhomycin 250mg IVPB qd for anti-inflammation * 3 L O2 NC maintain O2 sat 89-92% * CPAP at night, pt has her own. * Respiratory therapist appreciated * Pulmonology consult appreciated: Pt. will start Daliresp on Discharge as outpatient, decreased IV steroids to 40mg q12h, c/w supplemental o2. * Outpatient pulmonary rehab and slow steroid taper on discharge * incentive spirometry * Ambulatory oxygen assessment # NAN on CKD - follows w/ Dr. Morgan Meade outpt since , per office her baseline is 1.1-1.3. w/u initiated and found mild proteinuria. etiology of her CKD is likely DM HTN. Not lupus and FSGS low on differential * likely due to med side effects * Cr improved, continue to hold lasix #Hypo K , resolved * monitor BMP #DM , uncontrolled 2/2 steroids use * holding home lispro * c/w home dose lantus 32 units and implement sliding scale insulin regimen. * BGM ACHS * resume glipizide at 5 mg BID #CHF * hold lasix due to worsening kidney function * monitor fluid status and Cr. #Obesity ,likley due to high oral intake pluse steroid use * Will provide necessary assistance, counseling and positive reinforcement to facilitate weight loss. * Consult kiln operator helper * Pt. has detailed why weight loss is difficult. Pt. needs high dose steroids frequently and this makes it easier for her to gain weight. Pt. has had lap- band surgery with good weight loss in the past. Weight was regained after multiple COPD exacerbations necessitating high dose steroids. #HCM * c/w home dose meds for COPD, asthma, HTN, hypothyroid, HLD, seizure, CAD, SLE * home dose was for lasix was confirmed to be 80mg BID * meds reconciled #FEN * no standing fluids * monitor lytes * low sodium/fat/ diabetic diet #DVTppx * Hep SQ 5000u tid #Dispo * d/c tele monitor * pending clinical improvement * pulmonary rehab in 1-2 days if continues to improve on slow prednisone taper * Full code Visit type - Emergency Visit Emergency Visit: Yes ED Registration Date: 09/08/17 Care time: The patient presented to the Emergency Department on the above date and was hospitalized for further evaluation of their emergent condition. - New Patient This patient is new to me today: Yes Date on this admission: 09/13/17 - Critical Care Critical Care patient: No - Discharge Referral Referred to [facility] Med [facility] No
--- NOTE | 2017-09-13 15:22 | PN ---
Teaching Attending Note Name of Resident: John Garcia ATTENDING PHYSICIAN STATEMENT I saw and evaluated the patient. I reviewed the resident's note and discussed the case with the resident. I agree with the resident's findings and plan as documented with exceptions below. SUBJECTIVE: patient seen and examined, Breathing with slow improvement. Urinating well, no abdominal or back pain or new concerns. OBJECTIVE: Vital Signs Period Temp Pulse Resp BP Sys/Oconnell Pulse Ox Last 24 Hr 98.0 F-98.9 F 60-88 18-20 128-140/53-89 99-100 Intake & Output 09/10/17 09/11/17 09/12/17 09/13/17 23:59 23:59 23:59 23:59 Intake Total 530 1060 1461 1260 Balance 530 1060 1461 1260 Weight 265 lb 12.8 oz 265 lb 12.8 oz 262 lb 9.6 oz 262 lb 8 oz General: sitting in bed, no use of acessory muscles, able to talk in full sentences Chest: positive air entry bilaterally, no wheezing Abdomen:soft, obese, Extremities: trace pedal non pitting edema Home Medications Medication Instructions Recorded Albuterol Sulfate [Proair Hfa] 1 puff IH Q4H PRN 03/31/17 Atorvastatin Ca [Lipitor] 10 mg PO HS 03/31/17 Biotin 5,000 mcg PO DAILY 03/31/17 Budesonide/Formeterol Fumarate 2 inh PO BID 03/31/17 [SYMBICORT 160/4.5mcg -] Carbamazepine [Carbamazepine ER] 300 mg PO BID 03/31/17 Glipizide [Glipizide Xl] 10 mg PO BID 03/31/17 Hydroxychloroquine So4 [Plaquenil 200 mg PO BID 03/31/17 -] Levothyroxine [Synthroid -] 50 mcg PO ASDIR 03/31/17 Losartan Potassium 50 mg PO DAILY 03/31/17 Montelukast Na [Singulair -] 10 mg PO HS 03/31/17 [place]-3 Fatty Acids [[place]-3] 1,000 mg PO DAILY 03/31/17 Pramipexole Dihydrochloride 0.5 mg PO BID 03/31/17 [Mirapex -] Sertraline HCl 100 mg PO HS 03/31/17 Tiotropium [place] [Spiriva] 1 inh PO DAILY 03/31/17 Topiramate 100 mg PO BID 03/31/17 Insulin Lispro [Humalog] 0 unit SQ ASDIR 04/25/17 Methotrexate [Mexate -] 12.5 mg PO We@0730 tablet 05/04/17 Pen Needle, Diabetic [Insulin Pen 1 each MC AM #30 dis.needle 05/04/17 Needle] Furosemide [Lasix -] 40 mg PO BID@0600,1400 #60 tablet 06/27/17 Insulin (Levemir) [Levemir Vial] 32 units SQ AM 08/14/17 Prednisone See Taper PO DAILY #35 tablet 08/15/17 Furosemide [Lasix] 80 mg PO BID 09/10/17 Active Medications Albuterol Sulfate (Ventolin 0.083% Nebulizer Soln -) 1 amp NEB Q4H PRN PRN Reason: SHORT OF BREATH/WHEEZING Last Admin: 09/10/17 20:10 Dose: 1 amp Atorvastatin Calcium (Lipitor -) 10 mg PO HS [facility] Last Admin: 09/12/17 21:49 Dose: 10 mg Budesonide/Formoterol Fumarate (Symbicort 160/4.5mcg -) 2 puff IH BID [facility] Last Admin: 09/13/17 10:08 Dose: 2 puff Carbamazepine (Tegretol Xr -) 300 mg PO BID [facility] Last Admin: 09/13/17 10:07 Dose: 300 mg Heparin Sodium (Porcine) (Heparin -) 5,000 unit SQ TID [facility] Last Admin: 09/13/17 13:14 Dose: 5,000 unit Hydroxychloroquine Sulfate (Plaquenil -) 200 mg PO BID [facility] Last Admin: 09/13/17 10:06 Dose: 200 mg Azithromycin 250 mg/ Dextrose 250 mls @ 250 mls/hr IVPB DAILY [facility] Last Admin: 09/13/17 10:10 Dose: 250 mls/hr Insulin Aspart (Novolog Vial Sliding Scale -) 1 vial SQ [facility]; Protocol Last Admin: 09/13/17 11:06 Dose: 8 units Insulin Detemir (Levemir Vial) 32 units SQ AM [facility] Last Admin: 09/13/17 06:13 Dose: 32 units Levothyroxine Sodium (Synthroid -) 50 mcg PO MoTuWeThFrSa@0700 [facility] Last Admin: 09/13/17 06:13 Dose: 50 mcg Methotrexate (Mexate -) 12.5 mg PO We@0730 [facility] Methylprednisolone Sodium Succinate (Solu-Medrol -) 40 mg IVPUSH Q12H [facility] Last Admin: 09/13/17 11:09 Dose: Not Given Metoclopramide HCl (Reglan -) 10 mg PO Q6H PRN PRN Reason: NAUSEA Last Admin: 09/13/17 11:27 Dose: 10 mg Montelukast Sodium (Singulair -) [address] [facility] Last Admin: 09/12/17 21:49 Dose: 10 mg Pramipexole Dihydrochloride (Mirapex -) 0.5 mg PO BID [facility] Last Admin: 09/13/17 10:06 Dose: 0.5 mg Sertraline HCl (Zoloft -) [address] [facility] Last Admin: 09/12/17 21:49 Dose: 100 mg Tiotropium [place] (Spiriva Respimat) 2 puff IH DAILY [facility] Last Admin: 09/13/17 10:08 Dose: 2 puff Topiramate (Topamax -) 100 mg PO BID [facility] Last Admin: 09/13/17 10:07 Dose: 100 mg Laboratory Results - last 24 hr 09/12/17 09/13/17 09/13/17 17:03 05:48 08:15 Sodium 139 Potassium 4.3 Chloride 100 Carbon Dioxide 27 Anion Gap 12 BUN 27 H Creatinine 1.3 H Creat Clearance w eGFR 41.64 POC Glucometer 237 307 Random Glucose 228 H Calcium 9.7 09/13/17 11:02 Sodium Potassium Chloride Carbon Dioxide Anion Gap BUN Creatinine Creat Clearance w eGFR POC Glucometer 317 Random Glucose Calcium Microbiology 09/07/17 17:11 Blood - Peripheral Venous Blood Culture - Final NO GROWTH AFTER 5 DAYS INCUBATION 09/07/17 16:40 Blood - Peripheral Venous Blood Culture - Final NO GROWTH AFTER 5 DAYS INCUBATION 09/07/17 17:44 Urine - Urine Clean Catch Urine Culture - Final NO GROWTH OBTAINED ASSESSMENT AND PLAN: 61 yo F with PMHx of COPD on 2L home oxygen, CAD s/p cath no stent, HTN, HLD, DM, seizure, SLE, hypothyroid, DANY on CPAP, recently admitted with acute COPD exacerbation -Acute COPD exacerbation -NAN on CKD Stage II-III -Hypokalemia resolved -CAD -HTN -IDDM -Seizure disorder -Hypothyroidism -DANY on Cpap -SLE on plaquenil/Methotrexate Plan: Taper solumedrol to 40 mg IV BID, standing and prn nebs, Ambulatory oxygen assessment. Cr improved, continue to hold lasix. Discuss with outpatient cook syrup maker Dr. Mar. Levemir 32 units hs, ISS, diabetic diet. resume glipizide at 5 mg BID. Continue topamax, levothyroxine. Methotrexate/Plaquenil DVTPPX heparin Dispo pending clinical improvement. To pulmonary rehab in 1-2 days if continues to improve on slow prednisone taper. Plan discussed with patient in detail, all questions answered.
[2017-09-13] MEDS: glipiZIDE 5 MG TABLET (FP) PO SCH (16:41)
[2017-09-13] MEDS: ATORVASTATIN CA 10 MG TABLET (FP) PO SCH (21:50)
[2017-09-13] MEDS: MONTELUKAST NA 10 MG TABLET PO SCH (21:50)
[2017-09-13] MEDS: SERTRALINE HCL 50 MG TABLET (FP) PO SCH (21:51)
[2017-09-13] MEDS: FLUTICASONE PROP 0.05% 16 GM NASAL SPRAY NS SCH (21:56)
[2017-09-14 06:35] LABS: BASO % 0.7 % (0-2.0); EOS % 0.1 % (0-4.5); HEMATOCRIT 34.9 % (32.4-45.2); HEMOGLOBIN 11.5 GM/dL (10.7-15.3); LYMPH % 21.9 % (8-40); MCH 30.5 pg (25.7-33.7); MCHC 32.9 g/dl (32.0-36.0); MEAN CELL VOLUME 92.7 fl (80-96); MONO % 5.1 % (3.8-10.2); NEUT % 72.2 % (42.8-82.8); PLATELET COUNT 334 K/MM3 (134-434); RBC 3.77 M/mm3 (3.60-5.2); RDW 15.3 % (11.6-15.6); WHITE BLOOD COUNT 12.1 K/mm3 (4.0-10.0)
[2017-09-14] MEDS: HEPARIN NA (PORCINE) 5,000 UNITS/ML 1ML VIAL SQ SCH ×2 (06:43→15:58)
[2017-09-14] MEDS: glipiZIDE 5 MG TABLET (FP) PO SCH (06:43)
[2017-09-14] MEDS: INSULIN (LEVEMIR) 100 UNITS/ML UNITS SQ SCH (06:44)
[2017-09-14] MEDS: LEVOTHYROXINE NA 50 MCG TABLET (FP) PO SCH (06:45)
[2017-09-14] MEDS: INSULIN SLIDING SCALE (NOVOLOG) 1 VIAL SQ SCH ×2 (06:45→14:16)
[2017-09-14 07:18] LABS: ANION GAP 10 (8-16); BLOOD UREA NITROGEN 26 mg/dL (7-18); CALCIUM 9.1 mg/dL (8.5-10.1); CHLORIDE 103 mmol/L (98-107); CO2 27 mmol/L (21-32); GLUCOSE,RANDOM 229 mg/dL (74-106); POTASSIUM 4.4 mmol/L (3.5-5.1); SODIUM 140 mmol/L (136-145)
[2017-09-14 07:19] LABS: CREATININE 1.2 mg/dL (0.55-1.02)
[2017-09-14] MEDS ORDERED: METHOTREXATE 2.5 MG TABLET PO SCH ×2 (07:30)
[2017-09-14] MEDS: ALBUTEROL SO4 0.083% IH SOL 2.5 MG/3 ML VIAL.NEB. NEB PRN (07:40)
[2017-09-14] MEDS ORDERED: PT OWN MED DRAWER 7, Y5N ONE (09:07)
[2017-09-14] MEDS: AZITHROMYCIN IVPB 250 MG in DEXTROSE 5%-WATER - 250 ML IVPB SCH (09:30)
[2017-09-14] MEDS: TOPIRAMATE 100 MG TABLET PO SCH (09:30)
[2017-09-14] MEDS: HYDROXYCHLOROQUINE SO4 200 MG TABLET (FP) PO SCH (09:30)
[2017-09-14] MEDS: PRAMIPEXOLE DIHYDROCHLORIDE 0.5 MG TABLET PO SCH (09:30)
[2017-09-14] MEDS: FLUTICASONE PROP 0.05% 16 GM NASAL SPRAY NS SCH (09:31)
[2017-09-14] MEDS: TIOTROPIUM BROMIDE (SPIRIVA) RESPIMAT INHALER IH SCH (09:31)
[2017-09-14] MEDS: BUDESONIDE/FORMETEROL FUMARATE 160/4.5 mcg INHALER IH SCH (09:31)
[2017-09-14] MEDS: methylPREDNISolone NA SUCC 40 MG/1 ML VIAL IVPUSH SCH (09:34)
[2017-09-14 11:02] VITALS: BP 139/72; TEMP 97.5
[2017-09-14] MEDS ORDERED: predniSONE 5 MG/5 ML ORAL SOLN- UNIT-DOSE CUP PO ONE (11:15)
[2017-09-14 11:32] VITALS: PULSE 86
--- NOTE | 2017-09-14 12:15 | PN ---
Progress Note, Physician History of Present Illness: pulmonary alert,nad,-sob,-cough - Current Medication List Current Medications: Active Medications Albuterol Sulfate (Ventolin 0.083% Nebulizer Soln -) 1 amp NEB Q4H PRN PRN Reason: SHORT OF BREATH/WHEEZING Last Admin: 09/14/17 07:40 Dose: 1 amp Atorvastatin Calcium (Lipitor -) 10 mg PO HS [facility] Last Admin: 09/13/17 21:50 Dose: 10 mg Budesonide/Formoterol Fumarate (Symbicort 160/4.5mcg -) 2 puff IH BID [facility] Last Admin: 09/14/17 09:31 Dose: 2 puff Carbamazepine (Tegretol Xr -) 300 mg PO BID [facility] Last Admin: 09/14/17 09:32 Dose: 300 mg Fluticasone Propionate (Flonase -) 1 spray NS BID [facility] Last Admin: 09/14/17 09:31 Dose: 1 spray Glipizide (Glucotrol -) 5 mg PO BID@0700,1630 [facility] Last Admin: 09/14/17 06:43 Dose: 5 mg Heparin Sodium (Porcine) (Heparin -) 5,000 unit SQ TID [facility] Last Admin: 09/14/17 06:43 Dose: 5,000 unit Hydroxychloroquine Sulfate (Plaquenil -) 200 mg PO BID [facility] Last Admin: 09/14/17 09:30 Dose: 200 mg Azithromycin 250 mg/ Dextrose 250 mls @ 250 mls/hr IVPB DAILY [facility] Last Admin: 09/14/17 09:30 Dose: 250 mls/hr Insulin Aspart (Novolog Vial Sliding Scale -) 1 vial SQ ACHS [facility]; Protocol Last Admin: 09/14/17 06:45 Dose: 4 units Insulin Detemir (Levemir Vial) 32 units SQ AM [facility] Last Admin: 09/14/17 06:44 Dose: 32 units Levothyroxine Sodium (Synthroid -) 50 mcg PO MoTuWeThFrSa@0700 [facility] Last Admin: 09/14/17 06:45 Dose: 50 mcg Methotrexate (Mexate -) 12.5 mg PO We@0730 [facility] Last Admin: 09/14/17 09:30 Dose: 12.5 mg Metoclopramide HCl (Reglan -) 10 mg PO Q6H PRN PRN Reason: NAUSEA Last Admin: 09/13/17 11:27 Dose: 10 mg Montelukast Sodium (Singulair -) 10 mg PO [facility] Last Admin: 09/13/17 21:50 Dose: 10 mg Pramipexole Dihydrochloride (Mirapex -) 0.5 mg PO BID [facility] Last Admin: 09/14/17 09:30 Dose: 0.5 mg Sertraline HCl (Zoloft -) 100 mg PO [facility] Last Admin: 09/13/17 21:51 Dose: 100 mg Tiotropium [place] (Spiriva Respimat) 2 puff IH DAILY [facility] Last Admin: 09/14/17 09:31 Dose: 2 puff Topiramate (Topamax -) 100 mg PO BID [facility] Last Admin: 09/14/17 09:30 Dose: 100 mg - Objective Vital Signs: Vital Signs Temperature 97.5 F L 09/14/17 10:00 Pulse Rate 86 09/14/17 11:15 Respiratory Rate 20 09/14/17 10:00 Blood Pressure 139/72 09/14/17 10:00 O2 Sat by Pulse Oximetry (%) 96 09/14/17 11:15 Constitutional: Yes: Well Nourished, Calm Eyes: Yes: WNL HENT: Yes: WNL Neck: Yes: WNL Cardiovascular: Yes: Regular Rate and Rhythm, S1, S2 Respiratory: Yes: Wheezes, Other (FEW SCATTERED WHEEZES) Gastrointestinal: Yes: Normal Bowel Sounds, Soft Extremities: Yes: WNL Edema: No Labs: CBC, BMP 09/14/17 05:30 09/14/17 05:30 Problem List - Problems (1) Acute on chronic respiratory failure with hypoxemia Code(s): J96.21 - ACUTE AND CHRONIC RESPIRATORY FAILURE WITH HYPOXIA (2) Acute exacerbation of chronic obstructive pulmonary disease (COPD) Code(s): J44.1 - CHRONIC OBSTRUCTIVE PULMONARY DISEASE W (ACUTE) EXACERBATION (3) Shortness of breath Code(s): R06.02 - SHORTNESS OF BREATH (4) Hypertension Code(s): I10 - ESSENTIAL (PRIMARY) HYPERTENSION Qualifiers: Hypertension type: essential hypertension Qualified Code(s): I10 - Essential (primary) hypertension (5) SLE (systemic lupus erythematosus) Code(s): M32.9 - SYSTEMIC LUPUS ERYTHEMATOSUS, UNSPECIFIED (6) Seizure disorder Code(s): G40.909 - EPILEPSY, UNSP, NOT INTRACTABLE, WITHOUT STATUS EPILEPTICUS (7) Sleep apnea, obstructive Code(s): G47.33 - OBSTRUCTIVE SLEEP APNEA (ADULT) (PEDIATRIC) Assessment/Plan IMP ACUTE ON CHRONIC HYPOXEMIC RESPIRATORY FAILURE SLOWLY IMPROVING COPD EXACERBATION SLE CP LIKELY MUSCULOSKELETAL DANY ON AUTO-PAP DM HLD OBESITY H/O SEIZURES PLAN PREDNISONE 60 MG PO DAILY O2 INHALED BRONCHODILATORS DALIRESP AUTO-PAP HS DVT PROPHYLAXIS PULMONARY REHAB POST DISCHARGE ZITHROMAX 250mg PO DAILY ANTI-INFLAMMATORY MONITOR QT HEARING EVALUATION CONSIDER PCP PROPHYLAXIS DR DAI Problem List - Problems (1) Acute on chronic respiratory failure with hypoxemia Code(s): J96.21 - ACUTE AND CHRONIC RESPIRATORY FAILURE WITH HYPOXIA (2) Acute exacerbation of chronic obstructive pulmonary disease (COPD) Code(s): J44.1 - CHRONIC OBSTRUCTIVE PULMONARY DISEASE W (ACUTE) EXACERBATION (3) Shortness of breath Code(s): R06.02 - SHORTNESS OF BREATH (4) Hypertension Code(s): I10 - ESSENTIAL (PRIMARY) HYPERTENSION Qualifiers: Hypertension type: essential hypertension Qualified Code(s): I10 - Essential (primary) hypertension (5) SLE (systemic lupus erythematosus) Code(s): M32.9 - SYSTEMIC LUPUS ERYTHEMATOSUS, UNSPECIFIED (6) Seizure disorder Code(s): G40.909 - EPILEPSY, UNSP, NOT INTRACTABLE, WITHOUT STATUS EPILEPTICUS (7) Sleep apnea, obstructive Code(s): G47.33 - OBSTRUCTIVE SLEEP APNEA (ADULT) (PEDIATRIC)
[2017-09-14] MEDS ORDERED: predniSONE 20 MG TABLET (UD) PO SCH (12:30)
--- NOTE | 2017-09-14 13:07 | PN ---
Teaching Attending Note Name of Resident: John Garcia ATTENDING PHYSICIAN STATEMENT I saw and evaluated the patient. I reviewed the resident's note and discussed the case with the resident. I agree with the resident's findings and plan as documented with exceptions below. SUBJECTIVE: patient seen and examined. breathing improved, on cpap currently OBJECTIVE: Vital Signs Period Temp Pulse Resp BP Sys/Oconnell Pulse Ox Last 24 Hr 97.5 F-98.2 F 60-90 18-20 121-158/58-90 96-100 Intake & Output 09/11/17 09/12/17 09/13/17 09/14/17 23:59 23:59 23:59 23:59 Intake Total 1060 1461 2170 750 Balance 1060 1461 2170 750 Weight 265 lb 12.8 oz 262 lb 9.6 oz 262 lb 8 oz 265 lb 2 oz General: morbidly obese on cpap in bed, BMI 48.5 kg Chest: positive air entry, no wheezing or rales appreciated Abdomen:soft, obese, NT Extremities:trace non pitting edema Home Medications Medication Instructions Recorded Albuterol Sulfate [Proair Hfa] 1 puff IH Q4H PRN 03/31/17 Atorvastatin Ca [Lipitor] 10 mg PO HS 03/31/17 Biotin 5,000 mcg PO DAILY 03/31/17 Carbamazepine [Carbamazepine ER] 200 mg PO BID 03/31/17 Glipizide [Glipizide Xl] 10 mg PO BID 03/31/17 Hydroxychloroquine So4 [Plaquenil 200 mg PO BID 03/31/17 -] Levothyroxine [Synthroid -] 50 mcg PO ASDIR 03/31/17 Losartan Potassium 50 mg PO DAILY 03/31/17 Montelukast Na [Singulair -] 10 mg PO HS 03/31/17 [place]-3 Fatty Acids [[place]-3] 1,000 mg PO DAILY 03/31/17 Pramipexole Dihydrochloride 0.25 mg PO BID 03/31/17 [Mirapex -] Sertraline HCl 100 mg PO HS 03/31/17 Tiotropium [place] [Spiriva] 1 inh PO DAILY 03/31/17 Pen Needle, Diabetic [Insulin Pen 1 each MC AM #30 dis.needle 05/04/17 Needle] Insulin (Levemir) [Levemir Vial] 28 units SQ AM 08/14/17 Albuterol Sulfate [Proair Hfa] 90 mcg Q6H PRN MDD 2 09/13/17 Budesonide/Formeterol Fumarate 2 sprays BID 09/13/17 [SYMBICORT 160/4.5mcg -] Folic Acid 1 mg DAILY 09/13/17 Linaclotide [Linzess] 145 mcg DAILY 09/13/17 Methotrexate [Mexate -] 10 mg WEEKLY 09/13/17 Omeprazole 40 mg DAILY 09/13/17 Topiramate [Topiramate ER] 150 mg PO BID 09/13/17 Albuterol 0.083% Nebulizer Myriam 1 amp NEB Q4H PRN amp 09/14/17 [Ventolin 0.083% Nebulizer Soln -] Furosemide [Lasix] 40 mg PO DAILY 7 Days #7 tablet 09/14/17 Insulin Lispro [Humalog] 1 unit SQ ASDIR #0 5ml 09/14/17 Prednisone 60 mg PO ASDIR 30 Days #100 tablet 09/14/17 Laboratory Results - last 24 hr 09/13/17 09/13/17 09/14/17 16:31 21:54 05:26 WBC RBC Hgb Hct MCV MCH MCHC RDW Plt Count MPV Absolute Neuts (auto) Neutrophils % Lymphocytes % Monocytes % Eosinophils % Basophils % Nucleated RBC % Sodium Potassium Chloride Carbon Dioxide Anion Gap BUN Creatinine Creat Clearance w eGFR POC Glucometer 326 249 238 Random Glucose Calcium 09/14/17 09/14/17 05:30 05:30 WBC 12.1 H RBC 3.77 Hgb 11.5 Hct 34.9 MCV 92.7 MCH 30.5 MCHC 32.9 RDW 15.3 Plt Count 334 MPV 8.0 Absolute Neuts (auto) 8.8 Neutrophils % 72.2 Lymphocytes % 21.9 D Monocytes % 5.1 D Eosinophils % 0.1 D Basophils % 0.7 Nucleated RBC % 0 Sodium 140 Potassium 4.4 Chloride 103 Carbon Dioxide 27 Anion Gap 10 BUN 26 H Creatinine 1.2 H Creat Clearance w eGFR 45.67 POC Glucometer Random Glucose 229 H Calcium 9.1 ASSESSMENT AND PLAN: 61 yo F with PMHx of COPD on 2L home oxygen, CAD s/p cath no stent, HTN, HLD, DM, seizure, SLE, hypothyroid, DANY on CPAP, recently admitted with acute COPD exacerbation -Acute COPD exacerbation -NAN on CKD Stage II-III -Hypokalemia resolved -CAD -HTN -IDDM -Seizure disorder -Hypothyroidism -DANY on Cpap -SLE on plaquenil/Methotrexate Plan: Slow improvement. Oxygen needs at baseline. Lung exam improved. Change to prednisone 60 mg daily with slow taper till 10 mg Outpatient pulmonary follow up. Resume lasix at 40 mg daily to be titrated up based on weight and renal function. Outpatient nephrology/pulmonary follow up. D/c to SNF today. Plan discussed with patient in detail, all questions answered.
--- NOTE | 2017-09-14 15:03 | DS ---
Physical Exam: SUBJECTIVE: Patient seen and examined at bedside , no acute events over night. able to walk to bath room with some SOB. sat 95 % on 3 L NC. on home CPAP at night. pt's condition has greatly improved since admission OBJECTIVE: Vital Signs Period Temp Pulse Resp BP Sys/Oconnell Pulse Ox Last 24 Hr 97.5 F-98.0 F 60-90 18-20 121-158/58-90 96-100 PHYSICAL EXAM GENERAL: AAOx3 in NAD. on home CPAP HEAD: NC/AT EYES: EOMI, Conjunctiva clear, sclera anicteric ENT: MMM NECK: Supple, no JVD LUNGS: distant breath sounds w/ good effort no wheezing no accessory muscle use. improved HEART: RRR, NSR, normal s1, s2, murmur no M/R/G ABDOMEN: Soft, ND, NT, +BS 4 Q, no CVA Tenderness LOWER EXTREMITIES: no edema, +2DP pulse, NEUROLOGICAL: No focal deficit. Normal speech. gait not observed. PSYCHIATRIC: Cooperative. Good eye contact. Appropriate mood and affect. SKIN: Warm, dry, LABS Laboratory Results - last 24 hr 09/13/17 09/13/17 09/14/17 16:31 21:54 05:26 WBC RBC Hgb Hct MCV MCH MCHC RDW Plt Count MPV Absolute Neuts (auto) Neutrophils % Lymphocytes % Monocytes % Eosinophils % Basophils % Nucleated RBC % Sodium Potassium Chloride Carbon Dioxide Anion Gap BUN Creatinine Creat Clearance w eGFR POC Glucometer 326 249 238 Random Glucose Calcium 09/14/17 09/14/17 05:30 05:30 WBC 12.1 H RBC 3.77 Hgb 11.5 Hct 34.9 MCV 92.7 MCH 30.5 MCHC 32.9 RDW 15.3 Plt Count 334 MPV 8.0 Absolute Neuts (auto) 8.8 Neutrophils % 72.2 Lymphocytes % 21.9 D Monocytes % 5.1 D Eosinophils % 0.1 D Basophils % 0.7 Nucleated RBC % 0 Sodium 140 Potassium 4.4 Chloride 103 Carbon Dioxide 27 Anion Gap 10 BUN 26 H Creatinine 1.2 H Creat Clearance w eGFR 45.67 POC Glucometer Random Glucose 229 H Calcium 9.1 HOSPITAL COURSE: Date of Admission:09/08/17 Date of Discharge: 09/14/17 62 yo F PMH of lupus, IDDM, asthma, COPD (3l home O2), HLD, seizure disorder, morbid obesity, and multiple admissions for COPD exacerbations p/w worsening SOB x1d. Pt was admitted for acute COPD exacerbation. Pt's vitals were stable w/ no white count, BNP was normal, UA neg, and CXR was unchanged from prior. Sxs of SOB/wheezing and O2 sats were initially ctl w/ IV solumedrol, azitrhomycin for anti-inflammation, 3L supplemental oxygen, home CPAP, Duoneb, symbicort, and Spiriva. Pt's status slowly improved and steroids were tapered down and were switched to PO 60 mg prednisone with slow taper to 10 mg at discharge along w/ azithromycin PO for anti-inflammation. Pt will f/u w/ Dr. Harvey (pulm). Of note pt had mild NAN during admission attributed to med side effects, likely overdose of lasix. Lasix was held and Cr improved. Pt has CKD at baseline. Follows w/ Dr. Morgan Meade outpt since , per office her baseline is 1.1-1.3. w/u initiated and found mild proteinuria. etiology of her CKD is likely DM HTN. Not lupus and FSGS low on differential. Pt will be d/c w/ lasix 40 PO qd to be titrated up based on weight and renal function. Pt will f/u w/ Dr. Morgan Meade Pt is stable and safe for discharge to SNF today. Minutes to complete discharge: 35 Discharge Summary Reason For Visit: COPD Current Active Problems Acute on chronic respiratory failure with hypoxemia (Acute) COPD exacerbation (Acute) Condition: Good - Instructions Diet, Activity, Other Instructions: Resume lasix at 40 mg daily. Advise blood work BMP (basic metabolic panel) in 3 days at the SNF and lasix can be slowing titrated up to your prior home dose of 80 mg twice daily based on your kidney function and weight. Follow up with your technology sales representative in 1 week. Advise daily weights and notify facility MD if weight gain > 3lbs in 2 days a your lasix will need to be titrated. Prednisone taper as follow: 60 mg daily starting tomorrow for 4 days 2, 3, 09/17 and 09/18, 50 mg daily on 09/19, 09/20, 09/21, 09/22 40 mg daily on 09/23, 09/24, 09/25, 09/26 30 mg daily on 09/27, 09/28, 09/29, 09/30 20 mg daily , continue till seen by your ribbon lap machine tender. Take Azithromycin 250 mg daily for now. You will need interval hearing assessment and EKG monitoring with your doctor. YOU WILL NEED TO BE PLACED ON PREVENTIVE ANTIBIOTIC BACTRIM ONCE YOUR KIDNEY FUNCTION STABILIZES. PLEASE MAKE SURE TO DISCUSS WITH YOUR DOCTOR IN 1 WEEK BASED ON YOUR KIDNEY FUNCTION. Continue rest of your home medications as before. Continue home 3L oxygen with rest and activity and CPAP at night as before. Follow up with your lung doctor in 1 week. Following blood work in 3 days: Basic Metabolic Panel (BMP) Call 911 or come to ED if worsening breathing, weight gain, decreased urination or any new concerns noted. Referrals: Eriberto Harvey MD [Staff Physician] - 1 Week Goran Hernandez MD [Primary Care Provider] - Morgan Murry MD [Staff Physician] - 1 Week Disposition: NURSING HOME FACILITY - Home Medications Comprehensive Discharge Medication List: Ambulatory Orders Albuterol Sulfate [Proair Hfa] 1 puff IH Q4H PRN 03/31/17 Atorvastatin Ca [Lipitor] 10 mg PO HS 03/31/17 Biotin 5,000 mcg PO DAILY 03/31/17 Carbamazepine [Carbamazepine ER] 200 mg PO BID 03/31/17 Glipizide [Glipizide Xl] 10 mg PO BID 03/31/17 Hydroxychloroquine So4 [Plaquenil -] 200 mg PO BID 03/31/17 Levothyroxine [Synthroid -] 50 mcg PO ASDIR 03/31/17 Losartan Potassium 50 mg PO DAILY 03/31/17 Montelukast Na [Singulair -] 10 mg PO HS 03/31/17 [place]-3 Fatty Acids [[place]-3] 1,000 mg PO DAILY 03/31/17 Pramipexole Dihydrochloride [Mirapex -] 0.25 mg PO BID 03/31/17 Sertraline HCl 100 mg PO HS 03/31/17 Tiotropium [place] [Spiriva] 1 inh PO DAILY 03/31/17 Pen Needle, Diabetic [Insulin Pen Needle] 1 each MC AM #30 dis.needle 05/04/17 Insulin (Levemir) [Levemir Vial] 28 units SQ AM 08/14/17 Albuterol Sulfate [Proair Hfa] 90 mcg Q6H PRN MDD 2 09/13/17 Budesonide/Formeterol Fumarate [SYMBICORT 160/4.5mcg -] 2 sprays BID 09/13/17 Folic Acid 1 mg DAILY 09/13/17 Linaclotide [Linzess] 145 mcg DAILY 09/13/17 Methotrexate [Mexate -] 10 mg WEEKLY 09/13/17 Omeprazole 40 mg DAILY 09/13/17 Topiramate [Topiramate ER] 150 mg PO BID 09/13/17 Albuterol 0.083% Nebulizer Myriam [Ventolin 0.083% Nebulizer Soln -] 1 amp NEB Q4H PRN amp 09/14/17 Azithromycin 250 mg PO DAILY 30 Days #30 tablet 09/14/17 Furosemide [Lasix] 40 mg PO DAILY 7 Days #7 tablet 09/14/17 Insulin Lispro [Humalog] 1 unit SQ ASDIR #0 5ml 09/14/17 Prednisone 60 mg PO ASDIR 30 Days #100 tablet 09/14/17 This patient is new to me today: Yes Date on this admission: 09/14/17 Emergency Visit: Yes ED Registration Date: 09/08/17 Care time: The patient presented to the Emergency Department on the above date and was hospitalized for further evaluation of their emergent condition. Critical Care patient: No - Discharge Referral Referred to [facility] No Physician Referral: Morgan Murry DO (Neph)
== END 2017-09-14 16:30 | DRG 189 ==
LOC: JER 14:57 → JERBED 19:48 → UNDOADMOB 19:54 → J4W 23:58 → OBSVTOIN 09-08 00:58
PROVIDERS: ADMIT Internal Medicine; ATTEND Hospitalist
DX: J96.21 Acute and chronic respiratory failure with hypoxia (principal); J44.1 Chronic obstructive pulmonary disease with (acute) exacerbation; Z68.42 Body mass index [BMI] 45.0-49.9, adult; N17.9 Acute kidney failure, unspecified; I13.0 Hypertensive heart and chronic kidney disease with heart failure and stage 1 through stage 4 chronic kidney disease, or unspecified chronic kidney disease; E87.6 Hypokalemia; E78.5 Hyperlipidemia, unspecified; E66.01 Morbid (severe) obesity due to excess calories; Z79.4 Long term (current) use of insulin; G47.33 Obstructive sleep apnea (adult) (pediatric); M32.9 Systemic lupus erythematosus, unspecified; E11.22 Type 2 diabetes mellitus with diabetic chronic kidney disease; N18.3 Chronic kidney disease, stage 3 (moderate); R07.9 Chest pain, unspecified; I25.10 Atherosclerotic heart disease of native coronary artery without angina pectoris; E03.9 Hypothyroidism, unspecified; I50.9 Heart failure, unspecified; E86.0 Dehydration; E11.65 Type 2 diabetes mellitus with hyperglycemia
CPT/HCPCS: 36415; 71045-TC-FY; 80048; 80053; 81003; 82550; 82553; 82962; 83690; 83735; 83880; 84100; 84484; 85025; 87040; 87086; 93005; 93010; 94640; 94761; 97116-GP; 97161-GP; 99285-25; G0378; J1644; J7030; J7620; J8610

== ENCOUNTER 2017-09-19 15:35 | Observation (INO) | payer OTHER, MEDICARE ==
[2017-09-19 16:06] VITALS: BMI 48.8
--- NOTE | 2017-09-19 16:13 | PDOC ---
Rapid Medical Evaluation Chief Complaint: Chest Pain Time Seen by Provider: 09/19/17 16:06 Medical Evaluation: Allergies Allergy/AdvReac Type Severity Reaction Status Date / Time gabapentin [From Neurontin] Allergy PALPITATIONS, Verified 08/13/17 16:01 PASSES OUT Penicillins Allergy TONGUE Verified 08/13/17 16:01 Swelling phenytoin sodium Allergy diarrhea/vo Verified 08/13/17 16:01 [From Dilantin] miting phenytoin sodium extended Allergy Verified 08/13/17 16:01 [From Dilantin] theophylline [Theophylline] Allergy diarrhea,SE Verified 08/13/17 16:01 IZURES fresh garlic Allergy Uncoded 08/13/17 16:01 Vital Signs Temp Pulse Resp BP Pulse Ox 99.1 F 110 H 24 136/61 99 09/19/17 16:04 09/19/17 16:04 09/19/17 16:04 09/19/17 16:04 09/19/17 16:04 09/19/17 16:08 complain: Patient with h/o DM, COPD,HTN, lupus on oxygen therapy BIBA with complains of left sided chest pain radiating down left arm which started 3hrs ago. report EMS gave her nitroglycerin and ASA on route to ED. report pain has decreased. exam: pt in no NAD now. mild tenderness to left side of chest and upper arm over deltoid muscle order: EKG done. troponins ordered f/u patient will proceed to ED for further evaluation Discharge Disposition - Diagnosis Chest pain Qualifiers: Chest pain type: unspecified Qualified Code(s): R07.9 - Chest pain, unspecified - Referrals - Patient Instructions - Post Discharge Activity
--- NOTE | 2017-09-19 18:24 | PDOC ---
History of Present Illness - General History Source: Patient - History of Present Illness Initial Comments: The patient is a 62F with a history of COPD, HTN, and T2DM who presents with several hours of substernal/left sided chest pain which was gradual in onset while at rest. The pain radiates to her back and towards her LUE, It is associated with nausea, lightheadedness, headache, and non-focal blurry vision. The patient was given ASA 325mg and NGT x2 by her skilled nursing and reported improvement of her pain s/p NGT (08/23 to 05/24). She denies ever having felt this pain before. She denies fevers/chills, abdominal pain, diarrhea, or sick contacts. She denies use of blood thinners. 09/19/17 18:18 <Kevan Melvin - Last Filed: 09/19/17 19:27> <Claudia Scherer - Last Filed: 09/19/17 21:07> - General Chief Complaint: Chest Pain Stated Complaint: CHEST PAIN Time Seen by Provider: 09/19/17 16:06 Past History - Past Medical History Anemia: No Asthma: Yes Cancer: No Cardiac Disorders: Yes (CAD) CVA: No COPD: Yes (uses 02 at 3l nasal cannula) CHF: No DVT: No Dementia: No Diabetes: Yes (iddm) GI Disorders: Yes (REFLUX) Disorders: No HTN: Yes Hypercholesterolemia: Yes Liver Disease: No Seizures: Yes (NO RECENT [id number]) Thyroid Disease: Yes (HYPO) - Surgical History Abdominal Surgery: Yes (lapband) Appendectomy: No Cardiac Surgery: No Cholecystectomy: Yes GI Surgery: Yes (LAP sx 11/23/16) Lung Surgery: No Neurologic Surgery: No Orthopedic Surgery: Yes (BILAT HIP REPLACEMENT/BILAT KNEE SX) - Immunization History Immunization Up to Date: Yes - Suicide/Smoking/Psychosocial Hx Smoking Status: Yes Smoking History: Former smoker Have you smoked in the past 12 months: No Number of Cigarettes Smoked Daily: 10 If you are a former smoker, when did you quit?: 20 years ago Cigars Per Day: 0 Information on smoking cessation initiated: No Hx Alcohol Use: No Drug/Substance Use Hx: No Substance Use Type: None Hx Substance Use Treatment: No <Kevan Melvin - Last Filed: 09/19/17 19:27> <Claudia Scherer M - Last Filed: 09/19/17 21:07> - Past Medical History Allergies/Adverse Reactions: Allergies Allergy/AdvReac Type Severity Reaction Status Date / Time gabapentin [From Neurontin] Allergy PALPITATIONS, Verified 09/19/17 17:41 PASSES OUT Penicillins Allergy TONGUE Verified 09/19/17 17:41 Swelling phenytoin sodium Allergy diarrhea/vo Verified 09/19/17 17:41 [From Dilantin] miting phenytoin sodium extended Allergy Verified 09/19/17 17:41 [From Dilantin] theophylline [Theophylline] Allergy diarrhea,SE Verified 09/19/17 17:41 IZURES fresh garlic Allergy Uncoded 09/19/17 17:41 Home Medications: Ambulatory Orders Albuterol Sulfate [Proair Hfa] 1 puff IH Q4H PRN 03/31/17 Atorvastatin Ca [Lipitor] 10 mg PO HS 03/31/17 Biotin 5,000 mcg PO DAILY 03/31/17 Carbamazepine [Carbamazepine ER] 200 mg PO BID 03/31/17 Glipizide [Glipizide Xl] 10 mg PO BID 03/31/17 Hydroxychloroquine So4 [Plaquenil -] 200 mg PO BID 03/31/17 Levothyroxine [Synthroid -] 50 mcg PO ASDIR 03/31/17 Losartan Potassium 50 mg PO DAILY 03/31/17 Montelukast Na [Singulair -] 10 mg PO HS 03/31/17 [place]-3 Fatty Acids [[place]-3] 1,000 mg PO DAILY 03/31/17 Pramipexole Dihydrochloride [Mirapex -] 0.25 mg PO BID 03/31/17 Sertraline HCl 100 mg PO HS 03/31/17 Tiotropium [place] [Spiriva] 1 inh PO DAILY 03/31/17 Pen Needle, Diabetic [Insulin Pen Needle] 1 each MC AM #30 dis.needle 05/04/17 Insulin (Levemir) [Levemir Vial] 28 units SQ AM 08/14/17 Albuterol Sulfate [Proair Hfa] 90 mcg Q6H PRN MDD 2 09/13/17 Budesonide/Formeterol Fumarate [SYMBICORT 160/4.5mcg -] 2 sprays BID 09/13/17 Folic Acid 1 mg DAILY 09/13/17 Linaclotide [Linzess] 145 mcg DAILY 09/13/17 Methotrexate [Mexate -] 10 mg WEEKLY 09/13/17 Omeprazole 40 mg DAILY 09/13/17 Topiramate [Topiramate ER] 150 mg PO BID 09/13/17 Albuterol 0.083% Nebulizer Myriam [Ventolin 0.083% Nebulizer Soln -] 1 amp NEB Q4H PRN amp 09/14/17 Azithromycin 250 mg PO DAILY 30 Days #30 tablet 09/14/17 Furosemide [Lasix] 40 mg PO DAILY 7 Days #7 tablet 09/14/17 Insulin Lispro [Humalog] 1 unit SQ ASDIR #0 5ml 09/14/17 Prednisone 60 mg PO ASDIR 30 Days #100 tablet 09/14/17 Review of Systems - Review of Systems Able to Perform ROS?: Yes Comments:: GENERAL/CONSTITUTIONAL: No fever or chills. No weakness HEAD, EYES, EARS, NOSE AND THROAT: No ear pain or discharge. No sore throat CARDIOVASCULAR: per HPI RESPIRATORY: No cough, or hemoptysis GASTROINTESTINAL: +nausea; Novomiting, diarrhea or constipation GENITOURINARY: No dysuria, frequency, or change in urination MUSCULOSKELETAL: No joint or muscle swelling or pain. No neck or back pain SKIN: No rash NEUROLOGIC: +JI; no current lightheadedness; no loss of consciousness, or change in strength/sensation ENDOCRINE: No increased thirst. No abnormal weight change HEMATOLOGIC/LYMPHATIC: No anemia, easy bleeding, or history of blood clots ALLERGIC/IMMUNOLOGIC: No hives or skin allergy 09/19/17 18:24 <Kevan Melvin - Last Filed: 09/19/17 19:27> *Physical Exam - Vital Signs Last Vital Signs Temp Pulse Resp BP Pulse Ox 99.1 F 110 H 24 136/61 99 09/19/17 16:04 09/19/17 16:04 09/19/17 16:04 09/19/17 16:04 09/19/17 16:04 - Physical Exam Comments: GENERAL: Awake, alert, and fully oriented, in no acute distress HEAD: No signs of trauma, normocephalic, atraumatic EYES: PERRL, EOMI, sclera anicteric, conjunctiva clear ENT: Hearing grossly normal, nares patent, oropharynx clear without exudates. Moist mucosa NECK: Normal ROM, supple LUNGS: No distress, speaks full sentences, diffuse rhonchi b/l HEART: Regular rate and rhythm, normal S1 and S2, no murmurs appreciated, peripheral pulses normal and equal bilaterally. BLE 2+ edema to knee ABDOMEN: Soft, nontender, normoactive bowel sounds. No guarding, no rebound EXTREMITIES : Normal range of motion, no edema. No clubbing or cyanosis NEUROLOGICAL: Cranial nerves II through XII grossly intact. Normal speech, no focal sensorimotor deficits SKIN: Warm, Dry 09/19/17 18:27 <Kevan Melvin - Last Filed: 09/19/17 19:27> - Vital Signs Last Vital Signs Temp Pulse Resp BP Pulse Ox 99.1 F 110 H 24 136/61 99 09/19/17 16:04 09/19/17 16:04 09/19/17 16:04 09/19/17 16:04 09/19/17 16:04 <Claudia Scherer - Last Filed: 09/19/17 21:07> ED Treatment Course - RADIOLOGY Radiology Studies Ordered: Category Date Time Status CHEST CTA [CT] Stat CT Scan 09/19/17 18:06 Ordered CHEST PA & LAT [RAD] Stat Radiology 09/19/17 18:06 Ordered <Kevan Melvin - Last Filed: 09/19/17 19:27> - LABORATORY CBC & Chemistry Diagram: 09/19/17 18:10 09/19/17 18:10 - ADDITIONAL ORDERS Additional order review: Laboratory Results 09/19/17 09/19/17 09/19/17 18:10 18:10 18:10 PT with INR 11.00 INR 0.97 PTT (Actin FS) 27.9 Sodium 138 Potassium 4.9 Chloride 101 Carbon Dioxide 25 Anion Gap 12 BUN 25 H Creatinine 1.2 H Creat Clearance w eGFR 45.67 Random Glucose 324 H* Calcium 9.5 Total Bilirubin 0.3 AST 23 ALT 45 Alkaline Phosphatase 131 H D Creatine Kinase 108 Troponin I < 0.02 Total Protein 7.6 Albumin 3.7 Urine Color Urine Appearance Urine pH Ur Specific [place] Urine Protein Urine Glucose (UA) Urine Ketones Urine Blood Urine Nitrite Urine Bilirubin Urine Urobilinogen Ur Leukocyte Esterase 09/19/17 18:08 PT with INR INR PTT (Actin FS) Sodium Potassium Chloride Carbon Dioxide Anion Gap BUN Creatinine Creat Clearance w eGFR Random Glucose Calcium Total Bilirubin AST ALT Alkaline Phosphatase Creatine Kinase Troponin I Total Protein Albumin Urine Color Ltyellow Urine Appearance Clear Urine pH 6.0 Ur Specific [place] 1.013 Urine Protein Negative Urine Glucose (UA) 3+ H Urine Ketones Negative Urine Blood Negative Urine Nitrite Negative Urine Bilirubin Negative Urine Urobilinogen Negative Ur Leukocyte Esterase Negative 09/19/17 18:10 RBC 4.13 MCV 91.3 MCHC 33.1 RDW 15.8 H MPV 8.3 - Medications Given in the ED: ED Medications Discontinued Medications Generic Name Dose Route Start Last Admin Trade Name Freq PRN Reason Stop Dose Admin Acetaminophen 1,000 mg 09/19/17 18:31 09/19/17 19:56 Ofirmev Injection - IVPB 09/19/17 18:32 1,000 mg ONCE ONE Administration Ondansetron HCl 4 mg 09/19/17 18:25 09/19/17 19:38 Zofran Injection IVPUSH 09/19/17 18:26 4 mg ONCE ONE Administration <Claudia Scherer - Last Filed: 09/19/17 21:07> Medical Decision Making - Medical Decision Making The patient is a 62F with a history of COPD, HTN, and T2DM who presents with atypical angina improved by NGT. Ddx: ACS, PNA, PNX; less likely PE, AD/TAA/TAAA ED Course CMP, CBC, Cardiac enzymes, Coags, UA, UCx ECG, CXR Zofran 4mg IV once Ofirmev 1000mg IV once Plan for admission for atypical angina and ACS r/o. 09/19/17 18:28 <Kevan Melvin - Last Filed: 09/19/17 19:27> *DC/Admit/Observation/Transfer <Kevan Melvin - Last Filed: 09/19/17 19:27> - Discharge Dispostion Decision to Admit order: Yes <Claudia Scherer - Last Filed: 09/19/17 21:07> Diagnosis at time of Disposition: Chest pain Qualifiers: Chest pain type: unspecified Qualified Code(s): R07.9 - Chest pain, unspecified - Discharge Dispostion Condition at time of disposition: Guarded - Referrals Referrals: Ritesh Elizabeth MD [Primary Care Provider] - - Patient Instructions - Post Discharge Activity
[2017-09-19] MEDS ORDERED: ONDANSETRON 4 MG/2 ML VIAL IVPUSH ONE (18:25)
[2017-09-19] MEDS ORDERED: ACETAMINOPHEN 1000 MG/100 ML VIAL (NON FORMULARY) IVPB ONE (18:31)
[2017-09-19 19:04] LABS: URINE APPEARANCE CLEAR; URINE BILIRUBIN NEGATIVE (<2.0 mg/dL); URINE COLOR LTYELLOW; URINE GLUCOSE (UA) 3+ (NEGATIVE); URINE KETONE NEGATIVE (NEGATIVE); URINE LEUK ESTERASE NEGATIVE (NEGATIVE); URINE NITRITE NEGATIVE (NEGATIVE); URINE PROTEIN NEGATIVE (NEGATIVE); URINE UROBILINOGEN NEGATIVE mg/dL (0.2-1.0)
--- NOTE | 2017-09-19 19:04 | PDOC ---
*Physical Exam - Vital Signs Last Vital Signs Temp Pulse Resp BP Pulse Ox 99.1 F 110 H 24 136/61 99 09/19/17 16:04 09/19/17 16:04 09/19/17 16:04 09/19/17 16:04 09/19/17 16:04 ED Treatment Course - LABORATORY CBC & Chemistry Diagram: 09/19/17 18:10 09/19/17 18:10 Medical Decision Making - Medical Decision Making 09/20/17 02:43 Patient admitted to Medicine Obs/Sam - Noah *DC/Admit/Observation/Transfer Diagnosis at time of Disposition: Chest pain Qualifiers: Chest pain type: unspecified Qualified Code(s): R07.9 - Chest pain, unspecified - Discharge Dispostion Condition at time of disposition: Guarded Decision to Admit order: Yes - Referrals - Patient Instructions - Post Discharge Activity
--- NOTE | 2017-09-19 19:20 | PDOC ---
Attending Attestation - Resident Resident Name: GlennaKevan lance - ED Attending Attestation I have performed the following: I have examined & evaluated the patient, The case was reviewed & discussed with the resident, I agree w/resident's findings & plan, Exceptions are as noted - HPI HPI: 09/19/17 19:19 62 yo F c hx DM, COPD, obesity presents with chest pain. The patient reported recently performed a chest pressure with radiation to the left arm. Denies SOB. Some mild discomfort on chest. Denies recent illnesses, fevers, chills, cough, vomiting. Took nitroglycerin which improved the symptoms. Came into ER for an evaluation. - Physicial Exam PE: 09/19/17 19:23 GENERAL: Awake, alert, and fully oriented, in no acute distress. Obese HEAD: No signs of trauma EYES: EOMI, sclera anicteric, conjunctiva clear ENT: Auricles normal inspection, hearing grossly normal, nares patent, Moist mucosa NECK: Normal ROM, supple, no lymphadenopathy, JVD, or masses LUNGS: Breath sounds equal, clear to auscultation bilaterally. No wheezes, and no crackles HEART: Regular rate and rhythm, normal S1 and S2, no murmurs, rubs or gallops EXTREMITIES: Normal range of motion, no edema. No clubbing or cyanosis. No cords, erythema, or tenderness NEUROLOGICAL: Cranial nerves II through XII grossly intact. Normal speech SKIN: Warm, Dry, normal turgor, no rashes or lesions noted. - Medical Decision Making 09/19/17 19:24 Vital Signs Temp Pulse Resp BP Pulse Ox 99.1 F 110 H 24 136/61 99 09/19/17 16:04 09/19/17 16:04 09/19/17 16:04 09/19/17 16:04 09/19/17 16:04 Will need to ESTHELA patient. Aspirin, chest xray, labs including troponin. Given that she has multiple risk factors, will admit for rule out. 09/19/17 19:25 Pt signed out to Dr. Bruno for further management and disposition.
[2017-09-19] MEDS ORDERED: ACETAMINOPHEN INJECTION 100 ML IVPB ONE (19:32)
[2017-09-19] MEDS ORDERED: ONDANSETRON 4 MG/2 ML VIAL ONE (19:32)
[2017-09-19 19:35] LABS: HEMATOCRIT 37.7 % (32.4-45.2); HEMOGLOBIN 12.5 GM/dL (10.7-15.3); MCH 30.2 pg (25.7-33.7); MCHC 33.1 g/dl (32.0-36.0); MEAN CELL VOLUME 91.3 fl (80-96); MEAN PLT VOLUME 8.3 fl (7.5-11.1); PLATELET COUNT 365 K/MM3 (134-434); RBC 4.13 M/mm3 (3.60-5.2); RDW 15.8 % (11.6-15.6); WHITE BLOOD COUNT 10.1 K/mm3 (4.0-10.0)
[2017-09-19 19:47] LABS: INR 0.97 (0.83-1.09)
[2017-09-19 19:50] LABS: ACTIVATED PTT 27.9 SECONDS (25.2-36.5)
[2017-09-19 19:56] LABS: ALBUMIN 3.7 g/dl (3.4-5.0); ALK PHOS 131 U/L (45-117); ANION GAP 12 (8-16); BILIRUBIN,TOTAL 0.3 mg/dL (0.2-1.0); BLOOD UREA NITROGEN 25 mg/dL (7-18); CALCIUM 9.5 mg/dL (8.5-10.1); CHLORIDE 101 mmol/L (98-107); CO2 25 mmol/L (21-32); CREATININE 1.2 mg/dL (0.55-1.02); SGPT/ALT 45 U/L (12-78); SODIUM 138 mmol/L (136-145); TOT PROT 7.6 g/dl (6.4-8.2)
[2017-09-19 19:59] LABS: POTASSIUM 4.9 mmol/L (3.5-5.1); SGOT/AST 23 U/L (15-37)
[2017-09-19 20:00] LABS: GLUCOSE,RANDOM 324 mg/dL (74-106)
[2017-09-19] MEDS ORDERED: INSULIN REGULAR HUMAN 100 UNITS/ML *VIAL SQ ONE (21:05)
[2017-09-19] MEDS ORDERED: SODIUM CHLORIDE 1,000 ML IV STA (21:05)
--- NOTE | 2017-09-19 21:38 | HP ---
Admitting History and Physical - Primary Care Physician PCP: Cathie Hollis (at [facility]) - Admission Chief Complaint: Chest Pain History of Present Illness: This is a 62 y/o woman with a PMHx of SLE, HTN, COPD, DM, Seizure Disorder, DANY from [facility] there for STR. Who presents to the ED with chest pain, fatigue, nausea, dizziness x 2 days. Patient reports having l-sided chest pain radiaiting to L- arm. 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 Cardiovascular: Yes: CAD, HTN, Hyperlipdemia Pulmonary: Yes: Asthma, COPD, O2 Dependent, Sleep Apnea, Other (uses NIPPV at night) ...LMP: 03/18/01 Heme/Onc: Yes: Anemia Rheumatology: Yes: Lupus Endocrine: Yes: Diabetes Mellitus - Past Surgical History Past Surgical History: Yes: Cataract Removal, Cholecystectomy, , Joint Replacement (Right total hip replacement), Tonsillectomy - Smoking History Smoking history: Former smoker Have you smoked in the past 12 months: No Aproximately how many cigarettes per day: 10 If you are a former smoker, when did you quit?: 20 years ago - Alcohol/Substance Use Hx Alcohol Use: No History of Substance Use: reports: None - Social History Usual Living Arrangement: Yes: Senior Living ADL: Support Services History of Recent Travel: No Home Medications - Allergies Allergies/Adverse Reactions: Allergies Allergy/AdvReac Type Severity Reaction Status Date / Time gabapentin [From Neurontin] Allergy PALPITATIONS, Verified 09/19/17 17:41 PASSES OUT Penicillins Allergy TONGUE Verified 09/19/17 17:41 Swelling phenytoin sodium Allergy diarrhea/vo Verified 09/19/17 17:41 [From Dilantin] miting phenytoin sodium extended Allergy Verified 09/19/17 17:41 [From Dilantin] theophylline [Theophylline] Allergy diarrhea,SE Verified 09/19/17 17:41 IZURES fresh garlic Allergy Uncoded 09/19/17 17:41 - Home Medications Home Medications: Ambulatory Orders Albuterol Sulfate [Proair Hfa] 1 puff IH Q4H PRN 03/31/17 Atorvastatin Ca [Lipitor] 10 mg PO HS 03/31/17 Biotin 5,000 mcg PO DAILY 03/31/17 Carbamazepine [Carbamazepine ER] 200 mg PO BID 03/31/17 Glipizide [Glipizide Xl] 10 mg PO BID 03/31/17 Hydroxychloroquine So4 [Plaquenil -] 200 mg PO BID 03/31/17 Levothyroxine [Synthroid -] 50 mcg PO ASDIR 03/31/17 Losartan Potassium 50 mg PO DAILY 03/31/17 Montelukast Na [Singulair -] 10 mg PO HS 03/31/17 [place]-3 Fatty Acids [[place]-3] 1,000 mg PO DAILY 03/31/17 Pramipexole Dihydrochloride [Mirapex -] 0.25 mg PO BID 03/31/17 Sertraline HCl 100 mg PO HS 03/31/17 Tiotropium [place] [Spiriva] 1 inh PO DAILY 03/31/17 Pen Needle, Diabetic [Insulin Pen Needle] 1 each MC AM #30 dis.needle 05/04/17 Insulin (Levemir) [Levemir Vial] 28 units SQ AM 08/14/17 Albuterol Sulfate [Proair Hfa] 90 mcg Q6H PRN MDD 2 09/13/17 Budesonide/Formeterol Fumarate [SYMBICORT 160/4.5mcg -] 2 sprays BID 09/13/17 Folic Acid 1 mg DAILY 09/13/17 Linaclotide [Linzess] 145 mcg DAILY 09/13/17 Methotrexate [Mexate -] 10 mg WEEKLY 09/13/17 Omeprazole 40 mg DAILY 09/13/17 Topiramate [Topiramate ER] 150 mg PO BID 09/13/17 Albuterol 0.083% Nebulizer Myriam [Ventolin 0.083% Nebulizer Soln -] 1 amp NEB Q4H PRN amp 09/14/17 Azithromycin 250 mg PO DAILY 30 Days #30 tablet 09/14/17 Furosemide [Lasix] 40 mg PO DAILY 7 Days #7 tablet 09/14/17 Insulin Lispro [Humalog] 1 unit SQ ASDIR #0 5ml 09/14/17 Prednisone 60 mg PO ASDIR 30 Days #100 tablet 09/14/17 Family Disease History - Family Disease History Family Disease History: Heart Disease: Mother (HTN, Renal Insufficiency), Other : Mother, Brother (Alive and well), Sister (Alive and well), Son (Seizure Disorder) Review of Systems - Review of Systems Constitutional: reports: Diaphoresis Eyes: reports: No Symptoms HENT: reports: No Symptoms Neck: reports: No Symptoms Cardiovascular: reports: Chest Pain, Shortness of Breath Respiratory: reports: SOB Gastrointestinal: reports: No Symptoms Genitourinary: reports: No Symptoms Breasts: reports: No Symptoms Reported Musculoskeletal: reports: Back Pain, Extremity Pain Integumentary: reports: Erythema (B/L LE) Neurological: reports: No Symptoms Endocrine: reports: No Symptoms Hematology/Lymphatic: reports: No Symptoms Psychiatric: reports: No Symptoms Physical Examination Vital Signs: Vital Signs Temperature 99.1 F 09/19/17 16:04 Pulse Rate 110 H 09/19/17 16:04 Respiratory Rate 24 09/19/17 16:04 Blood Pressure 136/61 09/19/17 16:04 O2 Sat by Pulse Oximetry (%) 99 09/19/17 16:04 Constitutional: Yes: Well Nourished, No Distress, Calm, Obese Eyes: Yes: WNL, Conjunctiva Clear, EOM Intact, PERRL HENT: Yes: WNL, Atraumatic, Normocephalic Neck: Yes: WNL, Supple, Trachea Midline Cardiovascular: Yes: WNL, Regular Rate and Rhythm, S1, S2 Respiratory: Yes: Diminished, On Nasal O2 Gastrointestinal: Yes: WNL, Normal Bowel Sounds, Soft, Abdomen, Obese ...Rectal Exam: Yes: Deferred Renal/: Yes: WNL Breast(s): Yes: WNL Musculoskeletal: Yes: Back Pain Extremities: Yes: Erythema (B/L LE) Edema: Yes Edema: LLE: 2+, RLE: 2+ Peripheral Pulses WNL: Yes Integumentary: Yes: Venous Stasis Changes (B/L LE) Neurological: Yes: WNL, Alert, Oriented, Cran Nerves II-XII Intact ...Motor Strength: WNL Psychiatric: Yes: WNL, Alert, Oriented Labs: CBC, BMP 09/19/17 18:10 09/19/17 18:10 Laboratory Results - last 24 hr 09/19/17 09/19/17 09/19/17 18:08 18:10 18:10 WBC 10.1 H RBC 4.13 Hgb 12.5 Hct 37.7 MCV 91.3 MCH 30.2 MCHC 33.1 RDW 15.8 H Plt Count 365 MPV 8.3 PT with INR INR PTT (Actin FS) Sodium Potassium Chloride Carbon Dioxide Anion Gap BUN Creatinine Creat Clearance w eGFR POC Glucometer Random Glucose Calcium Total Bilirubin AST ALT Alkaline Phosphatase Creatine Kinase 108 Troponin I < 0.02 Total Protein Albumin Urine Color Ltyellow Urine Appearance Clear Urine pH 6.0 Ur Specific [place] 1.013 Urine Protein Negative Urine Glucose (UA) 3+ H Urine Ketones Negative Urine Blood Negative Urine Nitrite Negative Urine Bilirubin Negative Urine Urobilinogen Negative Ur Leukocyte Esterase Negative 09/19/17 09/19/17 09/20/17 18:10 18:10 03:40 WBC RBC Hgb Hct MCV MCH MCHC RDW Plt Count MPV PT with INR 11.00 INR 0.97 PTT (Actin FS) 27.9 Sodium 138 Potassium 4.9 Chloride 101 Carbon Dioxide 25 Anion Gap 12 BUN 25 H Creatinine 1.2 H Creat Clearance w eGFR 45.67 POC Glucometer Random Glucose 324 H* Calcium 9.5 Total Bilirubin 0.3 AST 23 ALT 45 Alkaline Phosphatase 131 H D Creatine Kinase Troponin I < 0.02 Total Protein 7.6 Albumin 3.7 Urine Color Urine Appearance Urine pH Ur Specific [place] Urine Protein Urine Glucose (UA) Urine Ketones Urine Blood Urine Nitrite Urine Bilirubin Urine Urobilinogen Ur Leukocyte Esterase 09/20/17 03:49 WBC RBC Hgb Hct MCV MCH MCHC RDW Plt Count MPV PT with INR INR PTT (Actin FS) Sodium Potassium Chloride Carbon Dioxide Anion Gap BUN Creatinine Creat Clearance w eGFR POC Glucometer [id number] Random Glucose Calcium Total Bilirubin AST ALT Alkaline Phosphatase Creatine Kinase Troponin I Total Protein Albumin Urine Color Urine Appearance Urine pH Ur Specific [place] Urine Protein Urine Glucose (UA) Urine Ketones Urine Blood Urine Nitrite Urine Bilirubin Urine Urobilinogen Ur Leukocyte Esterase Current Medications Generic Name Dose Route Start Last Admin Trade Name Freq PRN Reason Stop Dose Admin Albuterol Sulfate 1 amp 09/19/17 22:50 Ventolin 0.083% Nebulizer Soln - NEB Q4H PRN SHORT OF BREATH/WHEEZING Atorvastatin Calcium 10 mg 09/19/17 22:00 09/20/17 00:54 Lipitor - PO 10 mg HS DONTA Administration Budesonide/Formoterol Fumarate 2 puff 09/19/17 23:15 09/20/17 00:54 Symbicort 160/4.5mcg - IH 2 inh BID DONTA Administration Carbamazepine 200 mg 09/19/17 23:15 09/20/17 00:55 Tegretol Xr - PO 200 mg BID DONTA Administration Folic Acid 1 mg 09/20/17 10:00 Folic Acid - PO DAILY DONTA Hydroxychloroquine Sulfate 200 mg 09/19/17 23:00 09/20/17 00:54 Plaquenil - PO 200 mg BID DONTA Administration Losartan Potassium 50 mg 09/20/17 10:00 Cozaar - PO DAILY DONTA Montelukast Sodium 10 mg 09/20/17 22:00 Singulair - PO HS DONTA Non-Formulary Medication 1,000 mg 09/20/17 10:00 [place]-3 Fatty Acids [[place]-3] PO DAILY DONTA Non-Formulary Medication 150 mg 09/19/17 23:00 09/20/17 01:51 Topiramate [Topiramate Er] PO Not Given BID DONTA Pantoprazole Sodium 40 mg 09/20/17 10:00 Protonix - PO DAILY [facility] Pramipexole Dihydrochloride 0.25 mg 09/19/17 23:00 09/20/17 00:54 Mirapex - PO 0.25 mg BID DONTA Administration Sertraline HCl 100 mg 09/19/17 23:15 09/20/17 00:55 Zoloft - PO 100 mg HS DONTA Administration Tiotropium [place] 2 puff 09/20/17 10:00 Spiriva Respimat IH DAILY [facility] Intake & Output 09/17/17 09/18/17 09/19/17 09/20/17 23:59 23:59 23:59 23:59 Weight 121.109 kg Imaging - Results Chest X-ray: Image Reviewed EKG: Image Reviewed Problem List - Problems (1) Chest pain Assessment/Plan: - r/o ACS - cardiac monitoring - serial enzymes - Appreciate Cardiac consult - continue home meds - Asa Code(s): R07.9 - CHEST PAIN, UNSPECIFIED Qualifiers: Chest pain type: unspecified Qualified Code(s): R07.9 - Chest pain, unspecified (2) CAD (coronary artery disease) Assessment/Plan: - EKG reviewed - Continue home meds Code(s): I25.10 - ATHSCL HEART DISEASE OF [place] CORONARY ARTERY W/O ANG PCTRS (3) CHF (congestive heart failure) Assessment/Plan: - sub optimal - On exam: bilateral LE edema +2 noted - chest xray reviewed - Continue home meds - strict INOs - Daily weights Code(s): I50.9 - HEART FAILURE, UNSPECIFIED Qualifiers: Heart failure type: other Qualified Code(s): I50.9 - Heart failure, unspecified (4) COPD (chronic obstructive pulmonary disease) Assessment/Plan: - controlled - Appreciate Pulm consult - Continue home meds - O2 Code(s): J44.9 - CHRONIC OBSTRUCTIVE PULMONARY DISEASE, UNSPECIFIED Qualifiers: COPD type: COPD with acute exacerbation Qualified Code(s): J44.1 - Chronic obstructive pulmonary disease with (acute) exacerbation (5) Diabetic peripheral neuropathy Assessment/Plan: - continue home meds Code(s): E11.42 - TYPE 2 DIABETES MELLITUS WITH DIABETIC POLYNEUROPATHY (6) Hypertension Assessment/Plan: - stable - continue home meds Code(s): I10 - ESSENTIAL (PRIMARY) HYPERTENSION Qualifiers: Hypertension type: essential hypertension Qualified Code(s): I10 - Essential (primary) hypertension (7) Hypothyroidism Assessment/Plan: - TSH in am - continue home meds Code(s): E03.9 - HYPOTHYROIDISM, UNSPECIFIED Qualifiers: Hypothyroidism type: unspecified Qualified Code(s): E03.9 - Hypothyroidism , unspecified (8) Morbid obesity Assessment/Plan: - s/p Lap Band - Counseled on weight loss interventions - Carb Controlled Diet Code(s): E66.01 - MORBID (SEVERE) OBESITY DUE TO EXCESS CALORIES (9) SLE (systemic lupus erythematosus) Assessment/Plan: - Continue home meds Code(s): M32.9 - SYSTEMIC LUPUS ERYTHEMATOSUS, UNSPECIFIED (10) Seizure disorder Assessment/Plan: - controlled - Continue home meds Code(s): G40.909 - EPILEPSY, UNSP, NOT INTRACTABLE, WITHOUT STATUS EPILEPTICUS (11) Sleep apnea, obstructive Assessment/Plan: - Continue CPAP hs - Home Settings 06/03 Code(s): G47.33 - OBSTRUCTIVE SLEEP APNEA (ADULT) (PEDIATRIC) (12) Type 2 diabetes mellitus Assessment/Plan: - BGMs - ISS Code(s): E11.9 - TYPE 2 DIABETES MELLITUS WITHOUT COMPLICATIONS Qualifiers: Diabetes mellitus half-way insulin use: without terminal worker use Diabetes mellitus complication status: with kidney complications Diabetes mellitus complication detail: with chronic kidney disease Chronic kidney disease stage : unspecified stage Qualified Code(s): 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 Visit type - Emergency Visit Emergency Visit: Yes ED Registration Date: 09/19/17 Care time: The patient presented to the Emergency Department on the above date and was hospitalized for further evaluation of their emergent condition. - New Patient This patient is new to me today: Yes Date on this admission: 09/19/17 - Critical Care Critical Care patient: No Hospitalist Screening - Colonoscopy Questionnaire Colonoscopy Questionnaire: Colonoscopy Questionnaire - Patient: 50 - 75 years old and never had a screening colonoscopy: No History of colon or rectal polyps, or CA: No History of IBD, Crohn's disease or UC: No History of abdominal radiation therapy as a child: No - Relative: 1 with colon or rectal CA, or polyps at age 60 or younger: No Colon or rectal CA diagnosed at age 45 or younger: No Multiple relatives with colon or rectal CA: No - Outcome: Screening Result: Negative Screen
[2017-09-19] MEDS ORDERED: ALBUTEROL SO4 0.083% IH SOL 2.5 MG/3 ML VIAL.NEB. NEB PRN (22:50)
[2017-09-19] MEDS ORDERED: TOPIRAMATE 150 MG PO SCH (23:00)
[2017-09-20] MEDS: ATORVASTATIN CA 10 MG TABLET (FP) PO SCH ×2 (00:54→21:29)
[2017-09-20] MEDS: PRAMIPEXOLE DIHYDROCHLORIDE 0.25 MG TABLET PO SCH ×3 (00:54→21:29)
[2017-09-20] MEDS: BUDESONIDE/FORMETEROL FUMARATE 160/4.5 mcg INHALER IH SCH ×3 (00:54→21:30)
[2017-09-20] MEDS: HYDROXYCHLOROQUINE SO4 200 MG TABLET (FP) PO SCH ×3 (00:54→21:30)
[2017-09-20] MEDS: SERTRALINE HCL 50 MG TABLET (FP) PO SCH ×2 (00:55→21:31)
[2017-09-20] MEDS: carBAMazepine XR 200 MG TAB.ER.12H PO SCH ×3 (00:55→21:31)
[2017-09-20] MEDS ORDERED: HEMOQUE TEST 1 EACH EACH ONE (03:46)
[2017-09-20 07:47] LABS: BASO % 0.8 % (0-2.0); EOS % 0.2 % (0-4.5); MCH 30.7 pg (25.7-33.7); MCHC 33.3 g/dl (32.0-36.0); MEAN CELL VOLUME 92.1 fl (80-96); MEAN PLT VOLUME 8.2 fl (7.5-11.1); MONO % 8.6 % (3.8-10.2); NEUT % 56.4 % (42.8-82.8); PLATELET COUNT 294 K/MM3 (134-434); RBC 3.59 M/mm3 (3.60-5.2); RDW 15.3 % (11.6-15.6)
[2017-09-20 08:12] LABS: ANION GAP 12 (8-16); BLOOD UREA NITROGEN 22 mg/dL (7-18); CALCIUM 8.7 mg/dL (8.5-10.1); CHLORIDE 106 mmol/L (98-107); CO2 26 mmol/L (21-32); GLUCOSE,RANDOM 150 mg/dL (74-106); SODIUM 144 mmol/L (136-145)
[2017-09-20 08:19] LABS: PHOSPHOROUS 4.2 mg/dL (2.5-4.9)
[2017-09-20 08:25] LABS: MAGNESIUM 2.3 mg/dL (1.8-2.4); POTASSIUM 4.3 mmol/L (3.5-5.1)
[2017-09-20] MEDS ORDERED: FOLIC ACID 1 MG TABLET (FP) ONE (09:11)
[2017-09-20] MEDS ORDERED: LOSARTAN POTASSIUM 25 MG TABLET ONE (09:11)
--- NOTE | 2017-09-20 09:11 | CON.CARD ---
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, Syncope Cardio/Vascular: Yes: CAD, HTN, Hyperlipdemia Pulmonary: Yes: Asthma, COPD, O2 Dependent, Sleep Apnea, Other (uses NIPPV at night) ...LMP: 03/18/01 Rheumatology: Yes: Lupus Endocrine: Yes: Diabetes Mellitus - Past Surgical History Past Surgical History: Yes: Cataract Removal, Cholecystectomy, , Joint Replacement (Right total hip replacement), Tonsillectomy - Alcohol/Substance Use Hx Alcohol Use: No History of Substance Use: reports: None - Smoking History Smoking history: Former smoker Have you smoked in the past 12 months: No Aproximately how many cigarettes per day: 10 If you are a former smoker, when did you quit?: 20 years ago - Social History Usual Living Arrangement: With Spouse ADL: Support Services History of Recent Travel: No Home Medications - Allergies Allergies/Adverse Reactions: Allergies Allergy/AdvReac Type Severity Reaction Status Date / Time gabapentin [From Neurontin] Allergy PALPITATIONS, Verified 09/19/17 17:41 PASSES OUT Penicillins Allergy TONGUE Verified 09/19/17 17:41 Swelling phenytoin sodium Allergy diarrhea/vo Verified 09/19/17 17:41 [From Dilantin] miting phenytoin sodium extended Allergy Verified 09/19/17 17:41 [From Dilantin] theophylline [Theophylline] Allergy diarrhea,SE Verified 09/19/17 17:41 IZURES fresh garlic Allergy Uncoded 09/19/17 17:41 - Home Medications Home Medications: Ambulatory Orders Albuterol Sulfate [Proair Hfa] 1 puff IH Q4H PRN 03/31/17 Atorvastatin Ca [Lipitor] 10 mg PO HS 03/31/17 Biotin 5,000 mcg PO DAILY 03/31/17 Carbamazepine [Carbamazepine ER] 200 mg PO BID 03/31/17 Glipizide [Glipizide Xl] 10 mg PO BID 03/31/17 Hydroxychloroquine So4 [Plaquenil -] 200 mg PO BID 03/31/17 Levothyroxine [Synthroid -] 50 mcg PO ASDIR 03/31/17 Losartan Potassium 50 mg PO DAILY 03/31/17 Montelukast Na [Singulair -] 10 mg PO HS 03/31/17 [place]-3 Fatty Acids [[place]-3] 1,000 mg PO DAILY 03/31/17 Pramipexole Dihydrochloride [Mirapex -] 0.25 mg PO BID 03/31/17 Sertraline HCl 100 mg PO HS 03/31/17 Tiotropium [place] [Spiriva] 1 inh PO DAILY 03/31/17 Pen Needle, Diabetic [Insulin Pen Needle] 1 each MC AM #30 dis.needle 05/04/17 Insulin (Levemir) [Levemir Vial] 28 units SQ AM 08/14/17 Albuterol Sulfate [Proair Hfa] 90 mcg Q6H PRN MDD 2 09/13/17 Budesonide/Formeterol Fumarate [SYMBICORT 160/4.5mcg -] 2 sprays BID 09/13/17 Folic Acid 1 mg DAILY 09/13/17 Linaclotide [Linzess] 145 mcg DAILY 09/13/17 Methotrexate [Mexate -] 10 mg WEEKLY 09/13/17 Omeprazole 40 mg DAILY 09/13/17 Topiramate [Topiramate ER] 150 mg PO BID 09/13/17 Albuterol 0.083% Nebulizer Myriam [Ventolin 0.083% Nebulizer Soln -] 1 amp NEB Q4H PRN amp 09/14/17 Azithromycin 250 mg PO DAILY 30 Days #30 tablet 09/14/17 Furosemide [Lasix] 40 mg PO DAILY 7 Days #7 tablet 09/14/17 Insulin Lispro [Humalog] 1 unit SQ ASDIR #0 5ml 09/14/17 Prednisone 60 mg PO ASDIR 30 Days #100 tablet 09/14/17 Family Disease History - Family Disease History Family Disease History: Heart Disease: Mother (HTN, Renal Insufficiency), Other : Mother, Brother (Alive and well), Sister (Alive and well), Son (Seizure Disorder) Vital Signs: Vital Signs Temperature 99.1 F 09/19/17 16:04 Pulse Rate 110 H 09/19/17 16:04 Respiratory Rate 24 09/19/17 16:04 Blood Pressure 136/61 09/19/17 16:04 O2 Sat by Pulse Oximetry (%) 100 09/20/17 03:56 - Other Data Labs, Other Data: CBC, BMP 09/20/17 06:46 09/20/17 06:46 INR, PTT INR 0.97 (0.83-1.09) 09/19/17 18:10 Troponin, BNP 09/19/17 09/20/17 09/20/17 18:10 03:40 06:46 Troponin I < 0.02 < 0.02 < 0.02 Troponin, BNP 09/19/17 09/20/17 09/20/17 18:10 03:40 06:46 Troponin I < 0.02 < 0.02 < 0.02
--- NOTE | 2017-09-20 09:18 | PN ---
Progress Note, Physician - Current Medication List Current Medications: Active Medications Albuterol Sulfate (Ventolin 0.083% Nebulizer Soln -) 1 amp NEB Q4H PRN PRN Reason: SHORT OF BREATH/WHEEZING Atorvastatin Calcium (Lipitor -) 10 mg PO HS ON LICENSE OF [facility] Last Admin: 09/20/17 00:54 Dose: 10 mg Budesonide/Formoterol Fumarate (Symbicort 160/4.5mcg -) 2 puff IH BID ON LICENSE OF [facility] Last Admin: 09/20/17 00:54 Dose: 2 inh Carbamazepine (Tegretol Xr -) 200 mg PO BID ON LICENSE OF [facility] Last Admin: 09/20/17 00:55 Dose: 200 mg Folic Acid (Folic Acid -) 1 mg PO DAILY ON LICENSE OF [facility] Hydroxychloroquine Sulfate (Plaquenil -) 200 mg PO BID ON LICENSE OF [facility] Last Admin: 09/20/17 00:54 Dose: 200 mg Losartan Potassium (Cozaar -) 50 mg PO DAILY ON LICENSE OF [facility] Montelukast Sodium (Singulair -) 10 mg PO HS ON LICENSE OF [facility] Non-Formulary Medication ([place]-3 Fatty Acids [[place]-3]) 1,000 mg PO DAILY ON LICENSE OF [facility] Non-Formulary Medication (Topiramate [Topiramate Er]) 150 mg PO BID ON LICENSE OF [facility] Last Admin: 09/20/17 01:51 Dose: Not Given Pantoprazole Sodium (Protonix -) 40 mg PO DAILY ON LICENSE OF [facility] Pramipexole Dihydrochloride (Mirapex -) 0.25 mg PO BID ON LICENSE OF [facility] Last Admin: 09/20/17 00:54 Dose: 0.25 mg Sertraline HCl (Zoloft -) 100 mg PO HS ON LICENSE OF [facility] Last Admin: 09/20/17 00:55 Dose: 100 mg Tiotropium [place] (Spiriva Respimat) 2 puff IH DAILY ON LICENSE OF [facility] Topiramate (Topamax -) 150 mg PO BID ON LICENSE OF [facility] - Objective Vital Signs: Vital Signs Temperature 99.1 F 09/19/17 16:04 Pulse Rate 110 H 09/19/17 16:04 Respiratory Rate 24 09/19/17 16:04 Blood Pressure 136/61 09/19/17 16:04 O2 Sat by Pulse Oximetry (%) 100 09/20/17 03:56 Labs: CBC, BMP 09/20/17 06:46 09/20/17 06:46 INR, PTT INR 0.97 (0.83-1.09) 09/19/17 18:10 Problem List - Problems (1) Chest pain Assessment/Plan: -Atypical - r/o ACS--ce negative--cardio - cardiac monitoring - serial enzymes - Appreciate Cardiac consult - continue home meds - Asa Code(s): R07.9 - CHEST PAIN, UNSPECIFIED Qualifiers: Chest pain type: unspecified Qualified Code(s): R07.9 - Chest pain, unspecified (2) CAD (coronary artery disease) Assessment/Plan: - EKG reviewed - Continue home meds -cardio Code(s): I25.10 - ATHSCL HEART DISEASE OF [place] CORONARY ARTERY W/O ANG PCTRS (3) CHF (congestive heart failure) Assessment/Plan: - On exam: bilateral LE edema +1 noted - chest xray reviewed - Continue home meds - strict I&Os - Daily weights Code(s): I50.9 - HEART FAILURE, UNSPECIFIED Qualifiers: Heart failure type: other Qualified Code(s): I50.9 - Heart failure, unspecified (4) COPD (chronic obstructive pulmonary disease) Assessment/Plan: - controlled - Appreciate Pulm consult - Continue home meds - O2 Code(s): J44.9 - CHRONIC OBSTRUCTIVE PULMONARY DISEASE, UNSPECIFIED Qualifiers: COPD type: COPD with acute exacerbation Qualified Code(s): J44.1 - Chronic obstructive pulmonary disease with (acute) exacerbation (5) Type 2 diabetes mellitus Assessment/Plan: - BGMs - ISS Code(s): E11.9 - TYPE 2 DIABETES MELLITUS WITHOUT COMPLICATIONS Qualifiers: Diabetes mellitus retirement insulin use: without intermediate card tender use Diabetes mellitus complication status: with kidney complications Diabetes mellitus complication detail: with chronic kidney disease Chronic kidney disease stage : unspecified stage Qualified Code(s): E11.22 - Type 2 diabetes mellitus with diabetic chronic kidney disease (6) Hypertension Assessment/Plan: - stable - continue home meds Code(s): I10 - ESSENTIAL (PRIMARY) HYPERTENSION Qualifiers: Hypertension type: essential hypertension Qualified Code(s): I10 - Essential (primary) hypertension (7) SLE (systemic lupus erythematosus) Assessment/Plan: - Continue home meds Code(s): M32.9 - SYSTEMIC LUPUS ERYTHEMATOSUS, UNSPECIFIED (8) Seizure disorder Code(s): G40.909 - EPILEPSY, UNSP, NOT INTRACTABLE, WITHOUT STATUS EPILEPTICUS Assessment/Plan Code(s): E11.9 - TYPE 2 DIABETES MELLITUS WITHOUT COMPLICATIONS Qualifiers: Diabetes mellitus intermediate card tender insulin use: without retirement use Diabetes mellitus complication status: with kidney complications Diabetes mellitus complication detail: with chronic kidney disease Chronic kidney disease stage : unspecified stage Qualified Code(s): 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
[2017-09-20] MEDS ORDERED: PATIENT'S OWN MEDICATION (NON-FORMULARY) (Omega-3 Fatty Acids [Omega-3] 1,000 MG) PO SCH (10:00)
[2017-09-20] MEDS: PANTOPRAZOLE 40 MG TABLET (FP) PO SCH (10:13)
[2017-09-20] MEDS: FOLIC ACID 1 MG TABLET (FP) PO SCH (10:14)
[2017-09-20] MEDS: LOSARTAN POTASSIUM 50 MG TABLET (FP) PO SCH (10:14)
--- NOTE | 2017-09-20 10:44 | CON.CARD ---
Consult Consult Specialty:: cardiology Reason for Consultation:: chest pain - History of Present Illness Chief Complaint: chest pain History of Present Illness: 62F h/o chronic diastolic HF, COPD, HTN, DM p/w chest pain. left sided, starting at rest, radiating to back and left arm. also has nausea. was given aspirin and SLNG at [facility], pain improved. Sees Dr. Laboy in cardiology clinic, last seen 07/2017. noted to have history of atypical chest pain with prior cardiac testing including cath showing normal cors in 08/2016. Pain was thought to be musculoskeletal. In ER trop negative x 3, EKG unremarkable. She still complains of CP this morning as well as pain in left arm. has stable dyspnea, on 3L of O2 by NC at [facility] which has continued. recently had home lasix dose reduced from 80 mg BID to 40 mg daily after recent admission for COPD exacerbation. Has stable bilateral lower extremity edema. weight today 267, on recent hospitalization ranged 262-267, likely stable. 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: Seizure, Syncope Cardio/Vascular: Yes: CAD, HTN, Hyperlipdemia Pulmonary: Yes: Asthma, COPD, O2 Dependent, Sleep Apnea, Other (uses NIPPV at night) ...LMP: 03/18/01 Rheumatology: Yes: Lupus Endocrine: Yes: Diabetes Mellitus - Past Surgical History Past Surgical History: Yes: Cataract Removal, Cholecystectomy, , Joint Replacement (Right total hip replacement), Tonsillectomy - Alcohol/Substance Use Hx Alcohol Use: No History of Substance Use: reports: None - Smoking History Smoking history: Former smoker Have you smoked in the past 12 months: No Aproximately how many cigarettes per day: 10 If you are a former smoker, when did you quit?: 20 years ago - Social History Usual Living Arrangement: With Spouse ADL: Support Services History of Recent Travel: No Home Medications - Allergies Allergies/Adverse Reactions: Allergies Allergy/AdvReac Type Severity Reaction Status Date / Time gabapentin [From Neurontin] Allergy PALPITATIONS, Verified 09/19/17 17:41 PASSES OUT Penicillins Allergy TONGUE Verified 09/19/17 17:41 Swelling phenytoin sodium Allergy diarrhea/vo Verified 09/19/17 17:41 [From Dilantin] miting phenytoin sodium extended Allergy Verified 09/19/17 17:41 [From Dilantin] theophylline [Theophylline] Allergy diarrhea,SE Verified 09/19/17 17:41 IZURES fresh garlic Allergy Uncoded 09/19/17 17:41 - Home Medications Home Medications: Ambulatory Orders Albuterol Sulfate [Proair Hfa] 1 puff IH Q4H PRN 03/31/17 Atorvastatin Ca [Lipitor] 10 mg PO HS 03/31/17 Biotin 5,000 mcg PO DAILY 03/31/17 Carbamazepine [Carbamazepine ER] 200 mg PO BID 03/31/17 Glipizide [Glipizide Xl] 10 mg PO BID 03/31/17 Hydroxychloroquine So4 [Plaquenil -] 200 mg PO BID 03/31/17 Levothyroxine [Synthroid -] 50 mcg PO ASDIR 03/31/17 Losartan Potassium 50 mg PO DAILY 03/31/17 Montelukast Na [Singulair -] 10 mg PO HS 03/31/17 [place]-3 Fatty Acids [[place]-3] 1,000 mg PO DAILY 03/31/17 Pramipexole Dihydrochloride [Mirapex -] 0.25 mg PO BID 03/31/17 Sertraline HCl 100 mg PO HS 03/31/17 Tiotropium [place] [Spiriva] 1 inh PO DAILY 03/31/17 Pen Needle, Diabetic [Insulin Pen Needle] 1 each MC AM #30 dis.needle 05/04/17 Insulin (Levemir) [Levemir Vial] 28 units SQ AM 08/14/17 Albuterol Sulfate [Proair Hfa] 90 mcg Q6H PRN MDD 2 09/13/17 Budesonide/Formeterol Fumarate [SYMBICORT 160/4.5mcg -] 2 sprays BID 09/13/17 Folic Acid 1 mg DAILY 09/13/17 Linaclotide [Linzess] 145 mcg DAILY 09/13/17 Methotrexate [Mexate -] 10 mg WEEKLY 09/13/17 Omeprazole 40 mg DAILY 09/13/17 Topiramate [Topiramate ER] 150 mg PO BID 09/13/17 Albuterol 0.083% Nebulizer Myriam [Ventolin 0.083% Nebulizer Soln -] 1 amp NEB Q4H PRN amp 09/14/17 Azithromycin 250 mg PO DAILY 30 Days #30 tablet 09/14/17 Furosemide [Lasix] 40 mg PO DAILY 7 Days #7 tablet 09/14/17 Insulin Lispro [Humalog] 1 unit SQ ASDIR #0 5ml 09/14/17 Prednisone 60 mg PO ASDIR 30 Days #100 tablet 09/14/17 Family Disease History - Family Disease History Family Disease History: Heart Disease: Mother (HTN, Renal Insufficiency), Other : Mother, Brother (Alive and well), Sister (Alive and well), Son (Seizure Disorder) Review of Systems - Review of Systems Constitutional: reports: Lethargy HENT: reports: No Symptoms Neck: reports: No Symptoms Cardiovascular: reports: Chest Pain Respiratory: reports: No Symptoms Gastrointestinal: reports: No Symptoms Genitourinary: reports: No Symptoms Musculoskeletal: reports: Back Pain Integumentary: reports: No Symptoms Neurological: reports: No Symptoms Endocrine: reports: No Symptoms Hematology/Lymphatic: reports: No Symptoms Psychiatric: reports: No Symptoms Vital Signs: Vital Signs Temperature 99.1 F 09/19/17 16:04 Pulse Rate 68 09/20/17 10:18 Respiratory Rate 20 09/20/17 10:18 Blood Pressure 125/58 09/20/17 10:18 O2 Sat by Pulse Oximetry (%) 100 09/20/17 03:56 Constitutional: Yes: Well Nourished, No Distress, Calm Eyes: Yes: Conjunctiva Clear, EOM Intact HENT: Yes: Atraumatic, Normocephalic Neck: Yes: Supple, Trachea Midline Respiratory: Yes: Regular, CTA Bilaterally Gastrointestinal: Yes: Normal Bowel Sounds, Soft Cardiovascular: Yes: Regular Rate and Rhythm JVD: No Edema: Yes Edema: LLE: 1+ (not pitting, to ankles trey), RLE: 1+ Neurological: Yes: Alert, Oriented Psychiatric: Yes: Alert, Oriented - Other Data Labs, Other Data: CBC, BMP 09/20/17 06:46 09/20/17 06:46 INR, PTT INR 0.97 (0.83-1.09) 09/19/17 18:10 Troponin, BNP 09/19/17 09/20/17 09/20/17 18:10 03:40 06:46 Troponin I < 0.02 < 0.02 < 0.02 Troponin, BNP 08/06/18 08/07/18 08/07/18 18:10 03:40 06:46 Troponin I < 0.02 < 0.02 < 0.02 Assessment/Plan [facility] 08/30 (chaim): mild luminal irregularities LCX; LVEDP 25 Nuclear Stress Test done 07/09/16: nl ecg, mild anteroseptal ischemia, nl lvef 79 % Echo 03/02: normal LV systolic function; nl RV; mild MR/TR; nl RVSP. echo 03/2017: nl lv/rv, no sig valve path, nl rvsp CXR: no chf ECG 09/2017 sinus, no ischemic changes, stable compared to prior tele: sinus with PVCs Assessment/Plan chest pain - history of chronic musculoskeletal chest pain - normal angiogram 08/2016 - trop neg x 3, EKG unremarkable, unlikely ACS - would not pursue further cardiac testing as inpatient chronic diastolic congestive heart failure - no JVD, denies dyspnea - does have mild increase from baseline in edema per patient, recently lasix dose decreased to 40 mg daily from 80 mg BID in clinic after rise in Cr - will increase lasix to 80 mg daily - follow up in cardiology clinic within 1-2 weeks, labs in one week to monitor Cr Essential hypertension -well controlled -cont home meds, monitor bp trend Pure hypercholesterolemia -cont home statin
[2017-09-20] MEDS ORDERED: FUROSEMIDE 40 MG TABLET (FP) PO SCH (11:45)
[2017-09-20] MEDS: TOPIRAMATE 100 MG TABLET PO SCH ×2 (12:30→23:47)
[2017-09-20] MEDS: TIOTROPIUM BROMIDE (SPIRIVA) RESPIMAT INHALER IH SCH (12:59)
--- NOTE | 2017-09-20 14:30 | CON.PULM ---
Consult Consult Specialty:: PULMONARY Referred by:: Dr. Hollis Reason for Consultation:: shortness of breath - History of Present Illness Chief Complaint: shortness of breath History of Present Illness: 62yo female with h/o HTN, DM, COPD, chronic hypoxic respiratory failure on home O2, LV diastolic dysfunction who was [facility] from the residential for anterior chest pain described as sharp and radiating down left arm making her arm numb. Also with associated shortness of breath and nausea. Evaluated by cardiology. Reports some baseline shortness of breath. No significant cough or wheezing. Uses 3L/min nasal cannula at the residential. Recently admitted for COPD exacerbation, still on prednisone taper. 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 Cardio/Vascular: Yes: CAD, HTN, Hyperlipdemia Pulmonary: Yes: Asthma, COPD, O2 Dependent, Sleep Apnea, Other (uses NIPPV at night) ...LMP: 03/18/01 Rheumatology: Yes: Lupus Endocrine: Yes: Diabetes Mellitus - Past Surgical History Past Surgical History: Yes: Cataract Removal, Cholecystectomy, , Joint Replacement (Right total hip replacement), Tonsillectomy - Alcohol/Substance Use Hx Alcohol Use: No History of Substance Use: reports: None - Smoking History Smoking history: Former smoker Have you smoked in the past 12 months: No Aproximately how many cigarettes per day: 10 If you are a former smoker, when did you quit?: 20 years ago - Social History Usual Living Arrangement: With Spouse ADL: Support Services History of Recent Travel: No Home Medications - Allergies Allergies/Adverse Reactions: Allergies Allergy/AdvReac Type Severity Reaction Status Date / Time gabapentin [From Neurontin] Allergy PALPITATIONS, Verified 09/19/17 17:41 PASSES OUT Penicillins Allergy TONGUE Verified 09/19/17 17:41 Swelling phenytoin sodium Allergy diarrhea/vo Verified 09/19/17 17:41 [From Dilantin] miting phenytoin sodium extended Allergy Verified 09/19/17 17:41 [From Dilantin] theophylline [Theophylline] Allergy diarrhea,SE Verified 09/19/17 17:41 IZURES fresh garlic Allergy Uncoded 09/19/17 17:41 - Home Medications Home Medications: Ambulatory Orders Albuterol Sulfate [Proair Hfa] 1 puff IH Q4H PRN 03/31/17 Atorvastatin Ca [Lipitor] 10 mg PO HS 03/31/17 Biotin 5,000 mcg PO DAILY 03/31/17 Carbamazepine [Carbamazepine ER] 200 mg PO BID 03/31/17 Glipizide [Glipizide Xl] 10 mg PO BID 03/31/17 Hydroxychloroquine So4 [Plaquenil -] 200 mg PO BID 03/31/17 Levothyroxine [Synthroid -] 50 mcg PO ASDIR 03/31/17 Losartan Potassium 50 mg PO DAILY 03/31/17 Montelukast Na [Singulair -] 10 mg PO HS 03/31/17 [place]-3 Fatty Acids [[place]-3] 1,000 mg PO DAILY 03/31/17 Pramipexole Dihydrochloride [Mirapex -] 0.25 mg PO BID 03/31/17 Sertraline HCl 100 mg PO HS 03/31/17 Tiotropium [place] [Spiriva] 1 inh PO DAILY 03/31/17 Pen Needle, Diabetic [Insulin Pen Needle] 1 each MC AM #30 dis.needle 05/04/17 Insulin (Levemir) [Levemir Vial] 28 units SQ AM 08/14/17 Albuterol Sulfate [Proair Hfa] 90 mcg Q6H PRN MDD 2 09/13/17 Budesonide/Formeterol Fumarate [SYMBICORT 160/4.5mcg -] 2 sprays BID 09/13/17 Folic Acid 1 mg DAILY 09/13/17 Linaclotide [Linzess] 145 mcg DAILY 09/13/17 Methotrexate [Mexate -] 10 mg WEEKLY 09/13/17 Omeprazole 40 mg DAILY 09/13/17 Topiramate [Topiramate ER] 150 mg PO BID 09/13/17 Albuterol 0.083% Nebulizer Myriam [Ventolin 0.083% Nebulizer Soln -] 1 amp NEB Q4H PRN amp 09/14/17 Azithromycin 250 mg PO DAILY 30 Days #30 tablet 09/14/17 Furosemide [Lasix] 40 mg PO DAILY 7 Days #7 tablet 09/14/17 Insulin Lispro [Humalog] 1 unit SQ ASDIR #0 5ml 09/14/17 Prednisone 60 mg PO ASDIR 30 Days #100 tablet 09/14/17 Family Disease History - Family Disease History Family Disease History: Heart Disease: Mother (HTN, Renal Insufficiency), Other : Mother, Brother (Alive and well), Sister (Alive and well), Son (Seizure Disorder) Review of Systems - Review of Systems Constitutional: denies: Chills, Fever, Weakness Eyes: denies: Recent Change in Vision HENT: denies: Nasal Congestion, Throat Pain Neck: denies: Stiffness, Tenderness Cardiovascular: reports: Chest Pain, Edema, Shortness of Breath Respiratory: reports: SOB. denies: Cough, Hemoptysis, Wheezing Gastrointestinal: reports: Nausea, Vomiting. denies: Abdominal Pain Genitourinary: denies: Dysuria, Hematuria Neurological: denies: Dizziness, Headache Endocrine: reports: Unexplained Weight Loss Physical Exam Vital Sings: Vital Signs Temperature 99.1 F 09/19/17 16:04 Pulse Rate 68 09/20/17 10:18 Respiratory Rate 20 09/20/17 10:18 Blood Pressure 125/58 09/20/17 10:18 O2 Sat by Pulse Oximetry (%) 97 09/20/17 09:00 Constitutional: Yes: Anxious Eyes: Yes: Conjunctiva Clear, EOM Intact HENT: Yes: Atraumatic, Normocephalic Neck: Yes: Supple, Trachea Midline Cardiovascular: Yes: Regular Rate and Rhythm Respiratory: Yes: Diminished (distant breath sounds). No: Wheezes ...Clubbing: No Gastrointestinal: Yes: Normal Bowel Sounds, Soft. No: Tenderness Edema: Yes Neurological: Yes: Alert, Oriented Labs: CBC, BMP 09/20/17 06:46 09/20/17 06:46 Imaging - Results Chest X-ray: Report Reviewed, Image Reviewed (mild cardiomegaly, mild basilar atelectasis) Problem List - Problems (1) Chest pain Code(s): R07.9 - CHEST PAIN, UNSPECIFIED Qualifiers: Chest pain type: unspecified Qualified Code(s): R07.9 - Chest pain, unspecified (2) CAD (coronary artery disease) Code(s): I25.10 - ATHSCL HEART DISEASE OF [place] CORONARY ARTERY W/O ANG PCTRS (3) COPD (chronic obstructive pulmonary disease) Code(s): J44.9 - CHRONIC OBSTRUCTIVE PULMONARY DISEASE, UNSPECIFIED Qualifiers: COPD type: COPD with acute exacerbation Qualified Code(s): J44.1 - Chronic obstructive pulmonary disease with (acute) exacerbation (4) Hypertension Code(s): I10 - ESSENTIAL (PRIMARY) HYPERTENSION Qualifiers: Hypertension type: essential hypertension Qualified Code(s): I10 - Essential (primary) hypertension (5) Hypothyroidism Code(s): E03.9 - HYPOTHYROIDISM, UNSPECIFIED Qualifiers: Hypothyroidism type: unspecified Qualified Code(s): E03.9 - Hypothyroidism , unspecified (6) Morbid obesity Code(s): E66.01 - MORBID (SEVERE) OBESITY DUE TO EXCESS CALORIES (7) Numbness and tingling in left arm Code(s): R20.0 - ANESTHESIA OF SKIN; R20.2 - PARESTHESIA OF SKIN (8) Sleep apnea, obstructive Code(s): G47.33 - OBSTRUCTIVE SLEEP APNEA (ADULT) (PEDIATRIC) Assessment/Plan Chest Pain LV Diastolic Dysfunction Chronic Hypoxic Respiratory Failure Recent COPD Exacerbation Obstructive Sleep Apnea HTN DM Hypothyroidism Morbid Obesity - pain control - cardiology input appreciated - do not suspect COPD exacerbation, continue outpt prednisone taper - inhaled bronchodilators - O2 to keep SpO2 >90% - CPAP at night - DVT prophylaxis Thank you for this consult Gaetano Vasquez MD
--- NOTE | 2017-09-20 16:27 | EKG ---
Test Reason : Blood Pressure : / mmHG Vent. Rate : 090 BPM Atrial Rate : 090 BPM P-R Int : 150 ms QRS Dur : 068 ms QT Int : 382 ms P-R-T Axes : 032 -27 065 degrees QTc Int : 467 ms POOR DATA QUALITY, INTERPRETATION MAY BE ADVERSELY AFFECTED NORMAL SINUS RHYTHM VOLTAGE CRITERIA FOR LEFT VENTRICULAR HYPERTROPHY ABNORMAL ECG WHEN COMPARED WITH ECG OF 07-SEP-2017 15:32, NO SIGNIFICANT CHANGE WAS FOUND Confirmed by Pipo Bruno MD ([id number]) on 09/20/2017 4:27:01 PM Referred By: Confirmed By:Pipo Bruno MD
[2017-09-20] MEDS ORDERED: FUROSEMIDE 40 MG TABLET (FP) ONE (17:31)
[2017-09-20] MEDS: FUROSEMIDE 40 MG TABLET (FP) PO SCH (17:38)
[2017-09-20] MEDS ORDERED: MONTELUKAST NA 10 MG TABLET PO SCH (22:00)
[2017-09-20] MEDS ORDERED: INSULIN (LEVEMIR) 100 UNITS/ML UNITS SQ SCH (22:00)
[2017-09-20] MEDS ORDERED: ACETAMINOPHEN 1000 MG/100 ML VIAL (NON FORMULARY) IVPB ONE (23:00)
[2017-09-20] MEDS: INSULIN SLIDING SCALE (NOVOLOG) 1 VIAL SQ SCH (23:47)
[2017-09-21] MEDS: INSULIN SLIDING SCALE (NOVOLOG) 1 VIAL SQ SCH (06:31)
--- NOTE | 2017-09-21 08:39 | DS ---
Physical Examination Vital Signs: Vital Signs Temperature 98.0 F 09/21/17 05:00 Pulse Rate 68 09/21/17 05:00 Respiratory Rate 20 09/21/17 05:00 Blood Pressure 110/46 09/21/17 05:00 O2 Sat by Pulse Oximetry (%) 99 09/21/17 05:00 Findings/Remarks: 62F h/o chronic diastolic HF, COPD, HTN, DM p/w chest pain. left sided, starting at rest, radiating to back and left arm. also has nausea. [facility] improved. Sees Dr. Laboy in cardiology clinic, last seen 07/2017. noted to have history of atypical chest pain with prior cardiac testing including cath showing normal cors in 08/2016. Pain was thought to be musculoskeletal. In ER trop negative x 3, EKG unremarkable. She still complains of CP this morning as well as pain in left arm. has stable dyspnea, on 3L [facility] which [facility]. recently had home lasix dose reduced from 80 mg BID to 40 mg daily after recent admission for COPD exacerbation. Has stable bilateral lower extremity edema. weight today 267, on recent hospitalization ranged 262-267, likely stable. Constitutional: Yes: Well Nourished, No Distress, Calm Cardiovascular: Yes: Regular Rate and Rhythm Respiratory: Yes: Regular Gastrointestinal: Yes: Normal Bowel Sounds, Soft Musculoskeletal: Yes: WNL Extremities: Yes: WNL Edema: No Neurological: Yes: Alert, Oriented Psychiatric: Yes: Alert, Oriented Labs: CBC, BMP 09/20/17 06:46 09/20/17 06:46 Discharge Summary Reason For Visit: CHEST PAIN Current Active Problems Chest pain (Acute) Hospital Course: Cardiology consult: chest pain - history of chronic musculoskeletal chest pain - normal angiogram 08/2016 - trop neg x 3, EKG unremarkable, unlikely ACS - would not pursue further cardiac testing as inpatient chronic diastolic congestive heart failure - no JVD, denies dyspnea - does have mild increase from baseline in edema per patient, recently lasix dose decreased to 40 mg daily from 80 mg BID in clinic after rise in Cr - will increase lasix to 80 mg daily - follow up in cardiology clinic within 1-2 weeks, labs in one week to monitor Cr Essential hypertension -well controlled -cont home meds, monitor bp trend Pure hypercholesterolemia -cont home statin Pulmonary consult; - pain control - cardiology input appreciated - do not suspect COPD exacerbation, continue outpt prednisone taper - inhaled bronchodilators - O2 to keep SpO2 >90% - CPAP at night - DVT prophylaxis Condition: Stable - Instructions Diet, Activity, Other Instructions: - follow up in cardiology clinic within 1-2 weeks, CBC/CMP in one week to monitor Cr - Prednisone tapering dose: 40 mg daily x 2 days 30 mg daily x 2 days 20 mg daily x 2 days 10 mg daily x 2 days 5 mg daily x 2 days, then stop Referrals: Barbara Crane MD [Staff Physician] - Ritesh Elizabeth MD [Primary Care Provider] - Disposition: [facility] - Home Medications Comprehensive Discharge Medication List: Ambulatory Orders Albuterol Sulfate [Proair Hfa] 1 puff IH Q4H PRN 03/31/17 Atorvastatin Ca [Lipitor] 10 mg PO HS 03/31/17 Biotin 5,000 mcg PO DAILY 03/31/17 Carbamazepine [Carbamazepine ER] 200 mg PO BID 03/31/17 Glipizide [Glipizide Xl] 10 mg PO BID 03/31/17 Hydroxychloroquine So4 [Plaquenil -] 200 mg PO BID 03/31/17 Levothyroxine [Synthroid -] 50 mcg PO ASDIR 03/31/17 Losartan Potassium 50 mg PO DAILY 03/31/17 Montelukast Na [Singulair -] 10 mg PO HS 03/31/17 [place]-3 Fatty Acids [[place]-3] 1,000 mg PO DAILY 03/31/17 Pramipexole Dihydrochloride [Mirapex -] 0.25 mg PO BID 03/31/17 Sertraline HCl 100 mg PO HS 03/31/17 Tiotropium [place] [Spiriva] 1 inh PO DAILY 03/31/17 Pen Needle, Diabetic [Insulin Pen Needle] 1 each MC AM #30 dis.needle 05/04/17 Insulin (Levemir) [Levemir Vial] 28 units SQ AM 08/14/17 Albuterol Sulfate [Proair Hfa] 90 mcg Q6H PRN MDD 2 09/13/17 Budesonide/Formeterol Fumarate [SYMBICORT 160/4.5mcg -] 2 sprays BID 09/13/17 Folic Acid 1 mg DAILY 09/13/17 Linaclotide [Linzess] 145 mcg DAILY 09/13/17 Methotrexate [Mexate -] 10 mg WEEKLY 09/13/17 Omeprazole 40 mg DAILY 09/13/17 Topiramate [Topiramate ER] 150 mg PO BID 09/13/17 Albuterol 0.083% Nebulizer Myriam [Ventolin 0.083% Nebulizer Soln -] 1 amp NEB Q4H PRN amp 09/14/17 Azithromycin 250 mg PO DAILY 30 Days #30 tablet 09/14/17 Furosemide [Lasix] 40 mg PO DAILY 7 Days #7 tablet 09/14/17 Insulin Lispro [Humalog] 1 unit SQ ASDIR #0 5ml 09/14/17 Prednisone 60 mg PO ASDIR 30 Days #100 tablet 09/14/17
--- NOTE | 2017-09-21 09:19 | PN ---
Progress Note (short form) - Note Progress Note: s: o: Current Medications Albuterol Sulfate (Ventolin 0.083% Nebulizer Soln -) 1 amp NEB Q4H PRN PRN Reason: SHORT OF BREATH/WHEEZING Last Admin: 09/21/17 08:40 Dose: 1 amp Atorvastatin Calcium (Lipitor -) 10 mg PO [facility] Last Admin: 09/20/17 21:29 Dose: 10 mg Budesonide/Formoterol Fumarate (Symbicort 160/4.5mcg -) 2 puff IH BID [facility] Last Admin: 09/20/17 21:30 Dose: 2 inh Carbamazepine (Tegretol Xr -) 200 mg PO BID [facility] Last Admin: 09/20/17 21:31 Dose: 200 mg Folic Acid (Folic Acid -) 1 mg PO DAILY [facility] Last Admin: 09/20/17 10:14 Dose: 1 mg Furosemide (Lasix -) 80 mg PO DAILY [facility] Last Admin: 09/20/17 17:38 Dose: 80 mg Hydroxychloroquine Sulfate (Plaquenil -) 200 mg PO BID [facility] Last Admin: 09/20/17 21:30 Dose: 200 mg Insulin Aspart (Novolog Vial Sliding Scale -) 1 vial SQ [facility]; Protocol Last Admin: 09/21/17 06:31 Dose: 8 units Insulin Detemir (Levemir Vial) 10 units SQ [facility] Last Admin: 09/20/17 23:47 Dose: 10 units Losartan Potassium (Cozaar -) 50 mg PO DAILY [facility] Last Admin: 09/20/17 10:14 Dose: 50 mg Montelukast Sodium (Singulair -) 10 mg PO [facility] Last Admin: 09/20/17 21:30 Dose: 10 mg Non-Formulary Medication ([place]-3 Fatty Acids [[place]-3]) 1,000 mg PO DAILY [facility] Pantoprazole Sodium (Protonix -) 40 mg PO DAILY [facility] Last Admin: 09/20/17 10:13 Dose: 40 mg Pramipexole Dihydrochloride (Mirapex -) 0.25 mg PO BID [facility] Last Admin: 09/20/17 21:29 Dose: 0.25 mg Sertraline HCl (Zoloft -) 100 mg PO [facility] Last Admin: 09/20/17 21:31 Dose: 100 mg Tiotropium [place] (Spiriva Respimat) 2 puff IH DAILY [facility] Last Admin: 09/20/17 12:59 Dose: 2 puff Topiramate (Topamax -) 150 mg PO BID [facility] Last Admin: 09/20/17 23:47 Dose: 150 mg Vital Signs: Vital Signs Period Temp Pulse Resp BP Sys/Oconnell Pulse Ox Last 24 Hr 98.0 F-98.4 F 68-93 20-20 110-149/46-78 96-99 Constitutional: Yes: Well Nourished, No Distress, Calm Eyes: Yes: Conjunctiva Clear, EOM Intact HENT: Yes: Atraumatic, Normocephalic Neck: Yes: Supple, Trachea Midline Respiratory: Yes: Regular, CTA Bilaterally Gastrointestinal: Yes: Normal Bowel Sounds, Soft Cardiovascular: Yes: Regular Rate and Rhythm JVD: No Edema: Yes Edema: LLE: 1+ (not pitting, to ankles trey), RLE: 1+ Neurological: Yes: Alert, Oriented Psychiatric: Yes: Alert, Oriented Assessment/Plan [facility] 08/30 (chaim): mild luminal irregularities LCX; LVEDP 25 Nuclear Stress Test done 07/09/16: nl ecg, mild anteroseptal ischemia, nl lvef 79 % Echo 03/02: normal LV systolic function; nl RV; mild MR/TR; nl RVSP. echo 03/2017: nl lv/rv, no sig valve path, nl rvsp CXR: no chf ECG 09/2017 sinus, no ischemic changes, stable compared to prior tele: sinus with PVCs Assessment/Plan chest pain - history of chronic musculoskeletal chest pain - normal angiogram 08/2016 - trop neg x 3, EKG unremarkable, unlikely ACS - would not pursue further cardiac testing as inpatient chronic diastolic congestive heart failure - no JVD, denies dyspnea - does have mild increase from baseline in edema per patient, recently lasix dose decreased to 40 mg daily from 80 mg BID in clinic after rise in Cr - will increase lasix to 80 mg daily - follow up in cardiology clinic within 1-2 weeks, labs in one week to monitor Cr Essential hypertension -well controlled -cont home meds, monitor bp trend Pure hypercholesterolemia -cont home statin
[2017-09-21] MEDS ORDERED: PT OWN MED DRAWER 7, Y5N ONE (09:31)
[2017-09-21 09:41] VITALS: BP 115/64; PULSE 80; TEMP 98.7
[2017-09-21] MEDS: FOLIC ACID 1 MG TABLET (FP) PO SCH (09:44)
[2017-09-21] MEDS: PANTOPRAZOLE 40 MG TABLET (FP) PO SCH (09:44)
[2017-09-21] MEDS: FUROSEMIDE 40 MG TABLET (FP) PO SCH (09:44)
[2017-09-21] MEDS: LOSARTAN POTASSIUM 50 MG TABLET (FP) PO SCH (09:44)
[2017-09-21] MEDS: HYDROXYCHLOROQUINE SO4 200 MG TABLET (FP) PO SCH (09:45)
[2017-09-21] MEDS: TOPIRAMATE 100 MG TABLET PO SCH (09:45)
[2017-09-21] MEDS: PRAMIPEXOLE DIHYDROCHLORIDE 0.25 MG TABLET PO SCH (09:47)
[2017-09-21] MEDS: TIOTROPIUM BROMIDE (SPIRIVA) RESPIMAT INHALER IH SCH (09:47)
[2017-09-21] MEDS: BUDESONIDE/FORMETEROL FUMARATE 160/4.5 mcg INHALER IH SCH (09:47)
[2017-09-21] MEDS: carBAMazepine XR 200 MG TAB.ER.12H PO SCH (09:47)
== END 2017-09-21 10:50 ==
LOC: JER 15:35 → JERBED 22:36 → J4W 09-20 18:45
PROVIDERS: ADMIT Internal Medicine; ATTEND Family Medicine
PROC: 3E033NZ Introduction of Analgesics, Hypnotics, Sedatives into Peripheral Vein, Percutaneous Approach (ICD-10-PCS; principal; 2017-09-19)
PROC: 3E033GC Introduction of Other Therapeutic Substance into Peripheral Vein, Percutaneous Approach (ICD-10-PCS; 2017-09-19)
PROC: 3E0337Z Introduction of Electrolytic and Water Balance Substance into Peripheral Vein, Percutaneous Approach (ICD-10-PCS; 2017-09-19)
PROC: 3E013VG Introduction of Insulin into Subcutaneous Tissue, Percutaneous Approach (ICD-10-PCS; 2017-09-19)
PROC: 3E0F7GC Introduction of Other Therapeutic Substance into Respiratory Tract, Via Natural or Artificial Opening (ICD-10-PCS; 2017-09-19)
DX: R07.9 Chest pain, unspecified (principal); I10 Essential (primary) hypertension; I25.10 Atherosclerotic heart disease of native coronary artery without angina pectoris; I50.9 Heart failure, unspecified; J44.1 Chronic obstructive pulmonary disease with (acute) exacerbation; E11.42 Type 2 diabetes mellitus with diabetic polyneuropathy; E03.9 Hypothyroidism, unspecified; E66.01 Morbid (severe) obesity due to excess calories; M32.9 Systemic lupus erythematosus, unspecified; G40.909 Epilepsy, unspecified, not intractable, without status epilepticus; G47.33 Obstructive sleep apnea (adult) (pediatric); K21.9 Gastro-esophageal reflux disease without esophagitis; E78.5 Hyperlipidemia, unspecified; R20.0 Anesthesia of skin; R20.2 Paresthesia of skin; Z68.42 Body mass index [BMI] 45.0-49.9, adult; Z99.89 Dependence on other enabling machines and devices; Z88.0 Allergy status to penicillin; Z88.8 Allergy status to other drugs, medicaments and biological substances; Z87.891 Personal history of nicotine dependence; Z99.81 Dependence on supplemental oxygen; Z96.643 Presence of artificial hip joint, bilateral; Z79.84 Long term (current) use of oral hypoglycemic drugs
CPT/HCPCS: 36415; 71046-TC-FY; 80048; 80053; 81003; 82550; 82962; 83735; 84100; 84484; 85025; 85027; 85610; 85730; 87086; 93005; 93010; 94640; 94660; 96361; 96372; 96374; 96375; 96376; 99285-25; G0378; J0131; J7030

== ENCOUNTER 2017-10-20 12:57 | Emergency (ER) | payer OTHER, MEDICARE ==
--- NOTE | 2017-10-20 13:06 | PDOC ---
History of Present Illness - General Stated Complaint: CHEST PAIN Time Seen by Provider: 10/20/17 13:06 History Source: Patient Exam Limitations: No Limitations - History of Present Illness Initial Comments: 10/20/17 19:36 Ms. Montoya is a 62 yo F with a hx of diastolic CHF, COPD, HTN, DM, SLE, hyperthyroidism presents with bilateral leg swelling and pain, nausea with 1x vomiting episode yesterday without hematemesis, chest pain with SOB for the past two days. She states her chest pain is in the center of the chest with radiation to the left breast and left backside. She states the pain increases with breathing, feels like a stabbing pain, and is a 6/10 currently. Endorses having headaches. She was recently placed on lasix 80 mg BID, but her rehabilitation/nursing facility she has been only receiving one dose. Denies the following: fever, chills, recent visual changes, nausea, vomiting, diarrhea , and melena. Past History - Past Medical History Allergies/Adverse Reactions: Allergies Allergy/AdvReac Type Severity Reaction Status Date / Time gabapentin [From Neurontin] Allergy PALPITATIONS, Verified 10/20/17 13:07 PASSES OUT Penicillins Allergy TONGUE Verified 10/20/17 13:07 Swelling phenytoin sodium Allergy diarrhea/vo Verified 10/20/17 13:07 [From Dilantin] miting phenytoin sodium extended Allergy Verified 10/20/17 13:07 [From Dilantin] theophylline [Theophylline] Allergy diarrhea,SE Verified 10/20/17 13:07 IZURES fresh garlic Allergy Uncoded 10/20/17 13:07 Home Medications: Ambulatory Orders Albuterol Sulfate [Proair Hfa] 1 puff IH Q4H PRN 03/31/17 Atorvastatin Ca [Lipitor] 10 mg PO HS 03/31/17 Glipizide [Glipizide Xl] 10 mg PO BID 03/31/17 Hydroxychloroquine So4 [Plaquenil -] 200 mg PO BID 03/31/17 Losartan Potassium 50 mg PO DAILY 03/31/17 Montelukast Na [Singulair -] 10 mg PO HS 03/31/17 [place]-3 Fatty Acids [[place]-3] 1,000 mg PO DAILY 03/31/17 Sertraline HCl 100 mg PO HS 03/31/17 Tiotropium [place] [Spiriva] 1 inh PO DAILY 03/31/17 Pen Needle, Diabetic [Insulin Pen Needle] 1 each MC AM #30 dis.needle 05/04/17 Insulin (Levemir) [Levemir Vial] 28 units SQ AM 08/14/17 Albuterol Sulfate [Proair Hfa] 90 mcg Q6H PRN MDD 2 09/13/17 Budesonide/Formeterol Fumarate [SYMBICORT 160/4.5mcg -] 2 sprays BID 09/13/17 Linaclotide [Linzess] 145 mcg DAILY 09/13/17 Methotrexate [Mexate -] 10 mg WEEKLY 09/13/17 Omeprazole 40 mg DAILY 09/13/17 Topiramate [Topiramate ER] 150 mg PO BID 09/13/17 Albuterol 0.083% Nebulizer Myriam [Ventolin 0.083% Nebulizer Soln -] 1 amp NEB Q4H PRN amp 09/14/17 Furosemide [Lasix] 40 mg PO DAILY 7 Days #7 tablet 09/14/17 Insulin Lispro [Humalog] 1 unit SQ ASDIR #0 5ml 09/14/17 Furosemide [Lasix -] 80 mg PO DAILY tablet 09/21/17 Aspirin Coated [Ecotrin -] 325 mg PO DAILY 10/20/17 Atorvastatin Ca [Lipitor] 10 mg PO HS 10/20/17 Azithromycin [Zithromax -] 250 mg PO DAILY 10/20/17 Biotin 5,000 mcg PO DAILY 10/20/17 Carbamazepine 200 mg PO DAILY 10/20/17 Folic Acid 1 mg PO DAILY 10/20/17 Levothyroxine [Synthroid -] 50 mcg PO DAILY 10/20/17 Linaclotide [Linzess] 145 mcg PO DAILY 10/20/17 Meloxicam 15 mg PO DAILY 10/20/17 Pramipexole Dihydrochloride [Mirapex -] 0.25 mg PO HS 10/20/17 predniSONE [Deltasone -] 10 mg PO DAILY 10/20/17 Anemia: No Asthma: Yes Cancer: No Cardiac Disorders: Yes (CAD) CVA: No COPD: Yes (uses 02 at 3l nasal cannula) CHF: No DVT: No Dementia: No Diabetes: Yes (iddm) GI Disorders: Yes (REFLUX) Disorders: No HTN: Yes Hypercholesterolemia: Yes Liver Disease: No Seizures: Yes (NO RECENT GMAALTE-2-9CEO) Thyroid Disease: Yes (HYPO) - Surgical History Abdominal Surgery: Yes (lapband) Appendectomy: No Cardiac Surgery: No Cholecystectomy: Yes GI Surgery: Yes (LAP sx 11/23/16) Lung Surgery: No Neurologic Surgery: No Orthopedic Surgery: Yes (BILAT HIP REPLACEMENT/BILAT KNEE SX) - Immunization History Immunization Up to Date: Yes - Suicide/Smoking/Psychosocial Hx Smoking Status: Yes Smoking History: Former smoker Have you smoked in the past 12 months: No Number of Cigarettes Smoked Daily: 10 If you are a former smoker, when did you quit?: 20 years ago Cigars Per Day: 0 Hx Alcohol Use: No Drug/Substance Use Hx: No Substance Use Type: None Hx Substance Use Treatment: No Review of Systems - Review of Systems Able to Perform ROS?: Yes Constitutional: No: Chills, Diaphoresis, Fever, Weakness HEENTM: No: Recent change in vision, Ear Pain, Nose Pain, Throat Pain, Mouth Pain Respiratory: Yes: Shortness of Breath. No: Cough Cardiac (ROS): Yes: Chest Pain, Edema. No: Palpitations, Syncope, Chest Tightness ABD/GI: Yes: Nausea, Vomiting. No: Constipated, Diarrhea, Rectal Bleeding, Tarry Stools : No: Burning, Dysuria, Hematuria Musculoskeletal: No: Back Pain Integumentary: No: Erythema, Rash Neurological: No: Headache, Numbness, Tremors, Weakness Psychiatric: No: Stressors Endocrine: No: Unexplained Weight Gain Hematologic/Lymphatic: No: Anemia *Physical Exam - Physical Exam General Appearance: Yes: Nourished, Appropriately Dressed HEENT: positive: EOMI, SHANDRA, Normal ENT Inspection Neck: positive: Trachea midline. negative: Lymphadenopathy (R), Lymphadenopathy (L) Respiratory/Chest: positive: Chest Tender (center chest tenderness), Lungs Clear , Normal Breath Sounds. negative: Respiratory Distress, Accessory Muscle Use, Crackles, Rales, Stridor, Wheezing Cardiovascular: positive: Regular Rhythm, Regular Rate, S1, S2. negative: Systolic Murmur Vascular Pulses: Dorsalis-Pedis (R): 3+, Doralis-Pedis (L): 3+ Gastrointestinal/Abdominal: positive: Normal Bowel Sounds. negative: Tender Lymphatic: negative: Adenopathy Musculoskeletal: positive: Normal Inspection. negative: CVA Tenderness Extremity: positive: Normal Capillary Refill, Normal Inspection, Normal Range of Motion, Swelling (bilateral pitting edema). negative: Calf Tenderness, Erythema Integumentary: positive: Normal Color, Dry, Warm. negative: Swelling, Ecchymosis Neurologic: positive: medical device II-XII NML intact, Fully Oriented, Alert, Normal Mood/ Affect, Normal Response, Motor Strength 5/5. negative: EOM Palsy, Confused, Disoriented Heart Score/ECG Review - History History: Slightly suspicious - Electrocardiogram EKG: Normal - Age Age: 45-65 - Risk Factors Risk Factors Heart Score: Yes Hx Hypercholesterolemia, Yes Hx Hypertension, Yes Hx Diabetes, Yes Hx Obesity Based on the list above the patient has:: >/=3 risk factors or Hx atherosclerotic disease - Troponin Troponin: </= normal limit - Score Heart Score - Total: 3 - ECG Intrepretation Comment:: ventricular rate 94 bpm, [place] 158 ms, QRS 084 ms, QTc [address] depressions and elevations noted on the exam. ED Treatment Course - LABORATORY CBC & Chemistry Diagram: 10/20/17 14:07 10/20/17 14:07 Medical Decision Making - Medical Decision Making 10/21/17 12:42 62 yo F with a hx of diastolic CHF, COPD, HTN, DM, SLE, hyperthyroid presents to the emergency department with chest pain. She was recently seen in the emergency department for chest pain which the work up revealed negative 3x troponins with a hx of chronic msk chest pain. ddx: acs, PA, pleuritis, pNA, pericarditis, costochondritis, zosters Initial vitals: Initial Vital Signs Temp Pulse Resp BP Pulse Ox 98.7 F 101 H 20 128/79 100 10/20/17 13:06 10/20/17 13:06 10/20/17 13:06 10/20/17 13:06 10/20/17 13:06 Work up: Laboratory Tests 10/20/17 10/20/17 10/20/17 14:07 14:07 14:07 WBC 7.7 RBC 4.00 Hgb 12.0 Hct 36.5 MCV 91.4 MCH 30.0 MCHC 32.8 RDW 15.2 Plt Count 309 MPV 8.5 Absolute Neuts (auto) 6.2 Neutrophils % 81.0 D Lymphocytes % 12.6 D Monocytes % 5.8 Eosinophils % 0.2 Basophils % 0.4 Nucleated RBC % 0 PT with INR 11.10 INR 0.98 Sodium Potassium Chloride Carbon Dioxide Anion Gap BUN Creatinine Creat Clearance w eGFR Random Glucose Calcium Total Bilirubin AST ALT Alkaline Phosphatase Creatine Kinase Creatine Kinase Index CK-MB (CK-2) Troponin I Total Protein Albumin Urine Color Colorless Urine Appearance Clear Urine pH 6.0 Ur Specific [place] 1.003 Urine Protein Negative Urine Glucose (UA) 3+ H Urine Ketones Negative Urine Blood Negative Urine Nitrite Negative Urine Bilirubin Negative Urine Urobilinogen Negative Ur Leukocyte Esterase Negative Blood Type Antibody Screen 10/20/17 10/20/17 10/20/17 14:07 14:07 18:10 WBC RBC Hgb Hct MCV MCH MCHC RDW Plt Count MPV Absolute Neuts (auto) Neutrophils % Lymphocytes % Monocytes % Eosinophils % Basophils % Nucleated RBC % PT with INR INR Sodium 139 Potassium 5.1 Chloride 103 Carbon Dioxide 26 Anion Gap 10 BUN 12 Creatinine 1.3 H Creat Clearance w eGFR 41.64 Random Glucose 316 H* Calcium 9.1 Total Bilirubin 0.4 AST 53 H ALT 34 Alkaline Phosphatase 136 H Creatine Kinase 241 H 150 Creatine Kinase Index 0.7 0.9 CK-MB (CK-2) 1.80 1.40 Troponin I < 0.02 < 0.02 Total Protein 7.4 Albumin 3.3 L Urine Color Urine Appearance Urine pH Ur Specific [place] Urine Protein Urine Glucose (UA) Urine Ketones Urine Blood Urine Nitrite Urine Bilirubin Urine Urobilinogen Ur Leukocyte Esterase Blood Type Cancelled Antibody Screen Cancelled CXR showed no acute pathologies. both troponins were negative. Dr. Hollis was contacted and he gave the clearance for her to return to the nursing/ rehabilitation facility if troponins x2 and EKG are normal as well as the rest of the work up. The patients pain improved in the emergency department and agreed to return to the facility. She will be discharged back with return precautions given. *DC/Admit/Observation/Transfer Diagnosis at time of Disposition: Chest pain Qualifiers: Chest pain type: unspecified Qualified Code(s): R07.9 - Chest pain, unspecified - Discharge Dispostion Disposition: GROUP HOME FACILITY Decision to Admit order: No - Referrals Referrals: Ritesh Elizabeth MD [Primary Care Provider] - - Patient Instructions Printed Discharge Instructions: DI for Chest Pain Additional Instructions: You have been seen in the emergency department for chest pain. Your cardiac workup was negative with EKG showing no acute changes and no cardiac enzymes elevation. Please return to the emergency department if your chest pain worsens or new concerning symptoms arise. Please see your primary medical doctor within the next 24 hours for follow up care and management. - Post Discharge Activity
[2017-10-20 13:08] VITALS: TEMP 98.7; BMI 50.3
[2017-10-20 13:34] VITALS: PULSE 90
[2017-10-20] MEDS ORDERED: ASPIRIN 81 MG CHEWABLE TABLETS PO ONE (14:02)
--- NOTE | 2017-10-20 14:07 | PDOC ---
Attending Attestation - Resident Resident Name: Ruben Chambers - ED Attending Attestation I have performed the following: I have examined & evaluated the patient, The case was reviewed & discussed with the resident, I agree w/resident's findings & plan, Exceptions are as noted - HPI HPI: 10/20/17 14:05 62y F hx of CHF copd on 3L of [place] at baseline, htn, dm, lupus, hyperthrydism, presents with chest pain. Pts cp x 2 days, constant, substernal radiates to the left brast, 10. Pt endorses some sob, but states this is chronic for her due to her copd. pt endorsing b/l LE edema withotu associated calf pain., currently on lasix bid but only being given it daily. Pt denie sany dysuria, diarrhea, hemotpysis, significant cough. GENERAL: The patient is awake, alert, and fully oriented, Nontoxic - in no acute distress, obese HEAD: Normocephalic, atraumatic. EYES: extraocular movements intact, sclera anicteric, conjunctiva clear. ENT: Normal voice, Moist mucous membranes. NECK: Normal range of motion, supple LUNGS: Breath sounds equal, clear to auscultation bilaterally. No wheezes, no rhonchi, no rales. HEART: Regular rate and rhythm, normal S1 and S2 without murmur, rub or gallop. ABDOMEN: Soft, nontender, normoactive bowel sounds. No guarding, no rebound. . No CVA tenderness EXTREMITIES: Normal range of motion, +1 symmetric b/l LE edema. NEUROLOGICAL: No facial assymetry, Normal speech, PSYCH: Normal mood, normal affect. SKIN: Warm, Dry, normal turgor, - Physicial Exam PE: 10/20/17 20:10 see above - Medical Decision Making 10/20/17 16:22 trop neg x [address] vasquez 10/20/17 18:[address] vasquez - agrees with plan of trop x 2, ekg, cxr and if neg and feeling lin will dc back to [facility] 10/20/17 20:11 trop neg x 2 pt feels better ekg and cxr neg will dc pt back to [facility] Heart Score/ECG Review - ECG Impressions Comment:: 10/20/17 20:11 ekg performed at 14:35 rate of [address] chnges suggestive of acute ischemia sinus rhythm
[2017-10-20] MEDS ORDERED: ASPIRIN 81 MG CHEWABLE TABLETS ONE (14:09)
[2017-10-20 14:17] LABS: BASO % 0.4 % (0-2.0); EOS % 0.2 % (0-4.5); HEMATOCRIT 36.5 % (32.4-45.2); LYMPH % 12.6 % (8-40); MCHC 32.8 g/dl (32.0-36.0); MEAN CELL VOLUME 91.4 fl (80-96); MEAN PLT VOLUME 8.5 fl (7.5-11.1); MONO % 5.8 % (3.8-10.2); PLATELET COUNT 309 K/MM3 (134-434); RDW 15.2 % (11.6-15.6); WHITE BLOOD COUNT 7.7 K/mm3 (4.0-10.0)
[2017-10-20 14:20] LABS: URINE APPEARANCE CLEAR; URINE BILIRUBIN NEGATIVE (<2.0 mg/dL); URINE COLOR COLORLESS; URINE GLUCOSE (UA) 3+ (NEGATIVE); URINE KETONE NEGATIVE (NEGATIVE); URINE LEUK ESTERASE NEGATIVE (NEGATIVE); URINE NITRITE NEGATIVE (NEGATIVE); URINE PROTEIN NEGATIVE (NEGATIVE); URINE UROBILINOGEN NEGATIVE mg/dL (0.2-1.0)
[2017-10-20 14:26] LABS: INR 0.98 (0.83-1.09); PROTHROMBIN TIME (PATIENT) 11.1 SEC (9.7-13.0)
[2017-10-20 14:35] LABS: ALBUMIN 3.3 g/dl (3.4-5.0); ANION GAP 10 MMOL/L (8-16); BLOOD UREA NITROGEN 12 mg/dL (7-18); CALCIUM 9.1 mg/dL (8.5-10.1); CHLORIDE 103 mmol/L (98-107); CO2 26 mmol/L (21-32); CREATININE 1.3 mg/dL (0.55-1.02); SGPT/ALT 34 U/L (12-78); SODIUM 139 mmol/L (136-145)
[2017-10-20 14:39] LABS: ALK PHOS 136 U/L (45-117); BILIRUBIN,TOTAL 0.4 mg/dL (0.2-1.0); TOT PROT 7.4 g/dl (6.4-8.2)
[2017-10-20 14:45] LABS: POTASSIUM 5.1 mmol/L (3.5-5.1); SGOT/AST 53 U/L (15-37)
[2017-10-20 14:47] LABS: GLUCOSE,RANDOM 316 mg/dL (74-106)
[2017-10-20 15:00] VITALS: BP 118/96
--- NOTE | 2017-10-20 15:56 | EKG ---
Test Reason : Blood Pressure : / mmHG Vent. Rate : 094 BPM Atrial Rate : 094 BPM P-R Int : 158 ms QRS Dur : 084 ms QT Int : 360 ms P-R-T Axes : 022 -23 051 degrees QTc Int : 450 ms NORMAL SINUS RHYTHM VOLTAGE CRITERIA FOR LEFT VENTRICULAR HYPERTROPHY ABNORMAL ECG WHEN COMPARED WITH ECG OF 19-SEP-2017 15:59, NO SIGNIFICANT CHANGE WAS FOUND Confirmed by RAVI WARREN, ROSSY ([id number]) on 10/20/2017 3:56:15 PM Referred By: Confirmed By:ROSSY RODRIGUES MD
[2017-10-20] MEDS ORDERED: ALBUTEROL SO4 2.5/IPRATROPIUM 0.5 INH SOL 3 ML VIAL.NEB. NEB ONE ×2 (16:22→16:28)
== END 2017-10-20 21:23 ==
LOC: JER 12:57
PROC: 3E0F7GC Introduction of Other Therapeutic Substance into Respiratory Tract, Via Natural or Artificial Opening (ICD-10-PCS; principal; 2017-10-20)
DX: R07.89 Other chest pain (principal); I25.10 Atherosclerotic heart disease of native coronary artery without angina pectoris; I11.0 Hypertensive heart disease with heart failure; E11.9 Type 2 diabetes mellitus without complications; Z79.4 Long term (current) use of insulin; M32.9 Systemic lupus erythematosus, unspecified; E03.9 Hypothyroidism, unspecified; J44.9 Chronic obstructive pulmonary disease, unspecified; J45.909 Unspecified asthma, uncomplicated; Z88.0 Allergy status to penicillin; Z88.8 Allergy status to other drugs, medicaments and biological substances; Z96.643 Presence of artificial hip joint, bilateral; Z98.84 Bariatric surgery status
CPT/HCPCS: 36415; 71045-TC-FY; 80053; 81003; 82550; 82553; 84484; 85025; 85610; 93005; 93010; 99284-25; J7620

== ENCOUNTER 2018-05-01 15:13 | Emergency (ER) | payer OTHER, MEDICARE ==
--- NOTE | 2018-05-01 15:37 | PDOC ---
Rapid Medical Evaluation Chief Complaint: Pain Time Seen by Provider: 05/01/18 15:36 Medical Evaluation: Allergies Allergy/AdvReac Type Severity Reaction Status Date / Time gabapentin [From Neurontin] Allergy PALPITATIONS, Verified 05/01/18 15:35 PASSES OUT Penicillins Allergy TONGUE Verified 05/01/18 15:35 Swelling phenytoin sodium Allergy diarrhea/vo Verified 05/01/18 15:35 [From Dilantin] miting phenytoin sodium extended Allergy Verified 05/01/18 15:35 [From Dilantin] theophylline [Theophylline] Allergy diarrhea,SE Verified 05/01/18 15:35 IZURES fresh garlic Allergy Uncoded 05/01/18 15:35 05/01/18 15:36 I have performed a brief in-person evaluation of this patient. The patient presents with a chief compliant of bodyaches x 1 month, seen by pmd treated with steriods pain medication, had mri but states not feeling better. Reports bodyaches Pertinent physical exam findings NAD unlabored breathing wheelchair bound I have ordered the following chest xray The patient will proceed to the ED for further evaluation. Discharge Disposition - Diagnosis Back pain - Referrals - Patient Instructions - Post Discharge Activity
[2018-05-01 15:38] VITALS: TEMP 98.9; BMI 47.0
[2018-05-01] MEDS ORDERED: ACETAMINOPHEN 1000 MG/100 ML VIAL (NON FORMULARY) IVPB ONE (18:03)
--- NOTE | 2018-05-01 18:05 | PDOC ---
History of Present Illness - General Chief Complaint: Pain Stated Complaint: BODY ACHE / PAIN Time Seen by Provider: 05/01/18 15:36 History Source: Patient Exam Limitations: No Limitations - History of Present Illness Initial Comments: 05/01/18 18:04 Pt is a 63yo F with PMH of CHF, COPD (on 2L at home), SLE, DM, HTN presenting to the ED with complaints of generalized body aches, sob, cough for one month. Cough is productive of yellow/green sputum. Pt states that she last saw PMD 3 weeks ago and was given a steroid pack but it is not helping. She states that she has some pain in her chest when she takes deep breaths but otherwise denies chest pain. Denies fever, chills, congestion, abdominal pain, n/v/d, urinary symptoms. She states that the body aches are not getting any better. PMD: David PMH: see hpi PSH: cholecystectomy, gastric band, hip replacement, knee replacement Meds: Plaquinil, see med rec Allergies: PCN, Gabapentin, Dilantin Social: denies Past History - Past Medical History Allergies/Adverse Reactions: Allergies Allergy/AdvReac Type Severity Reaction Status Date / Time gabapentin [From Neurontin] Allergy PALPITATIONS, Verified 05/01/18 15:35 PASSES OUT Penicillins Allergy TONGUE Verified 05/01/18 15:35 Swelling phenytoin sodium Allergy diarrhea/vo Verified 05/01/18 15:35 [From Dilantin] miting phenytoin sodium extended Allergy Verified 05/01/18 15:35 [From Dilantin] theophylline [Theophylline] Allergy diarrhea,SE Verified 05/01/18 15:35 IZURES fresh garlic Allergy Uncoded 05/01/18 15:35 Home Medications: Ambulatory Orders Albuterol 0.083% Nebulizer Myriam [Ventolin 0.083% Nebulizer Soln -] 1 amp NEB PRN 10/24/17 Atorvastatin Ca [Lipitor] 10 mg PO HS 10/24/17 Carbamazepine 200 mg PO BID 10/24/17 Folic Acid 1 mg PO DAILY 10/24/17 Glipizide 10 mg PO BID 10/24/17 Hydroxychloroquine So4 [Plaquenil -] 200 mg PO BID 10/24/17 Insulin Detemir [Levemir Flextouch] 20 unit SQ BID 10/24/17 Lasix 80 mg PO DAILY 10/24/17 Linaclotide 145 mcg PO DAILY 10/24/17 Losartan Potassium 100 mg PO DAILY 10/24/17 Methotrexate Sodium [Trexall] 10 mg PO DAILY 10/24/17 Topiramate [Topiramate ER] 150 mg PO BID 10/24/17 Azithromycin [Zithromax -] 250 mg PO UTDICT #6 tab 05/01/18 Budesonide/Formeterol Fumarate [SYMBICORT 160/4.5mcg -] 2 inh PO BID 05/01/18 Carbamazepine [Tegretol -] 100 mg PO BID 05/01/18 Ferrous Sulfate [Iron] 325 mg PO DAILY 05/01/18 Ibuprofen [Motrin -] 600 mg PO TID PRN 05/01/18 Insulin Lispro [Humalog] 0 unit SQ TID 05/01/18 Levothyroxine [Synthroid -] 50 mcg PO MOTUWETHFRSA 05/01/18 Levothyroxine [Synthroid -] 100 mcg PO CHATMAN 05/01/18 Montelukast Sodium [Singulair] 10 mg PO DAILY 05/01/18 Pramipexole Di-HCl [Mirapex] 0.5 mg PO BID 05/01/18 Prednisone 5 mg PO DAILY 05/01/18 Sertraline HCl [Zoloft] 100 mg PO DAILY 05/01/18 Umeclidinium [place] [Incruse Ellipta] 62.5 mcg IH AM 05/01/18 Anemia: No Asthma: Yes Cancer: No Cardiac Disorders: Yes (CAD) CVA: No COPD: Yes (uses 02 at 3l nasal cannula) CHF: No DVT: No Dementia: No Diabetes: Yes GI Disorders: Yes (REFLUX) Disorders: No HTN: Yes Hypercholesterolemia: Yes Liver Disease: No Seizures: Yes (NO RECENT [id number]) Thyroid Disease: Yes (HYPO) - Surgical History Abdominal Surgery: Yes (lapband) Appendectomy: No Cardiac Surgery: No Cholecystectomy: Yes GI Surgery: Yes (LAP sx 11/23/16) Lung Surgery: No Neurologic Surgery: No Orthopedic Surgery: Yes (BILAT HIP REPLACEMENT/BILAT KNEE SX) - Immunization History Immunization Up to Date: Yes - Suicide/Smoking/Psychosocial Hx Smoking Status: Yes Smoking History: Former smoker Have you smoked in the past 12 months: No Number of Cigarettes Smoked Daily: 10 If you are a former smoker, when did you quit?: 22 yrs ago Cigars Per Day: 0 Information on smoking cessation initiated: No Hx Alcohol Use: No Drug/Substance Use Hx: No Substance Use Type: None Hx Substance Use Treatment: No Review of Systems - Review of Systems Constitutional: No: Chills, Fever, Weakness HEENTM: No: Symptoms Reported Respiratory: Yes: Cough, Shortness of Breath Cardiac (ROS): No: Chest Pain, Lightheadedness, Palpitations, Syncope ABD/GI: No: Constipated, Diarrhea, Nausea, Vomiting, Abdominal cramping : No: Symptoms Reported Musculoskeletal: Yes: See HPI, Back Pain, Joint Pain, Muscle Pain, Neck Pain Integumentary: No: Symptoms Reported Neurological: Yes: Headache. No: Numbness, Tingling, Tremors, Weakness *Physical Exam - Vital Signs Last Vital Signs Temp Pulse Resp BP Pulse Ox 98.9 F 120 H 20 147/80 94 L 05/01/18 15:34 05/01/18 15:34 05/01/18 15:34 05/01/18 15:34 05/01/18 15:34 Moderate Sedation - Procedure Monitoring Vital Signs: Procedure Monitoring Vital Signs Temperature 98.9 F 05/01/18 15:34 Pulse Rate 120 H 05/01/18 15:34 Respiratory Rate 20 05/01/18 15:34 Blood Pressure 147/80 05/01/18 15:34 O2 Sat by Pulse Oximetry (%) 94 L 05/01/18 15:34 ED Treatment Course - LABORATORY CBC & Chemistry Diagram: 05/01/18 18:15 05/01/18 18:15 Medical Decision Making - Medical Decision Making Pt is a 63yo F with PMH of CHF, COPD (on 2L at home), SLE, DM, HTN presenting to the ED with complaints of generalized body aches, sob, cough for one month. Cough is productive of yellow/green sputum. Pt states that she last saw PMD 3 weeks ago and was given a steroid pack but it is not helping. She states that she has some pain in her chest when she takes deep breaths but otherwise denies chest pain. Denies fever, chills, congestion, abdominal pain, n/v/d, urinary symptoms. She states that the body aches are not getting any better. Vitals: tachycardia 120, O2 94%RA PE: decreased breath sounds (could be due to poor inspiratory effort). NO leg swelling, speaking in sentences without sob. normal heart sounds. ddx includes but not limited to pe, chf, copd, ptx, pna, acs, carditis -cbc,cmp, trop, bnp, coags -cxr ordered by [facility]ME, CTA, ekg -iv tylenol, solumedrol 05/01/18 18:45 coags hemolyzed otherwise labs wnl. no trop or elevated bnp. EKG- nsr. no malu or depresions. lvh. similar to prior 10/20/2017 CTA- no pe. no changes from prior CT. Pt not having cp or sob. mainly complaining of body aches. otherwise nothing acute. lungs sounds better. will dc home with zpack. repeat vitals 123/63, HR 90, 96%RA *DC/Admit/Observation/Transfer Diagnosis at time of Disposition: Body aches, SOB (shortness of breath) - Discharge Dispostion Disposition: HOME Condition at time of disposition: Good Decision to Admit order: No - Prescriptions Prescriptions: Azithromycin [Zithromax -] 250 mg PO UTDICT #6 tab - Referrals Referrals: Goran Hernandez MD [Primary Care Provider] - - Patient Instructions Printed Discharge Instructions: DI for Shortness of Breath Additional Instructions: You were seen in the emergency room today for body aches, cough and some shortness of breath for one month. The CT scan does not show any clots or infection and the lab work is normal. I recommend taking Tylenol or ibuprofen for the aches as needed. Please make an appointment with your primary care doctor's office as soon as you can. A prescription for a z pack was sent to your pharmacy. Take as directed Come back to the emergency room if pain gets worse, you have a problem breathing , you have chest pain, you develop fever or if any new concerning symptom develops. Thank you - Post Discharge Activity
[2018-05-01] MEDS ORDERED: ACETAMINOPHEN INJECTION 100 ML IVPB ONE (18:13)
[2018-05-01] MEDS ORDERED: methylPREDNISolone NA SUCC 125 MG/2 ML VIAL IVPUSH ONE ×2 (18:32→19:16)
[2018-05-01 18:33] LABS: EOS % 0.3 % (0-4.5); HEMATOCRIT 37.8 % (32.4-45.2); HEMOGLOBIN 12.8 GM/dL (10.7-15.3); LYMPH % 25.1 % (8-40); MCH 30.7 pg (25.7-33.7); MCHC 33.8 g/dl (32.0-36.0); MEAN CELL VOLUME 90.9 fl (80-96); MEAN PLT VOLUME 8.4 fl (7.5-11.1); MONO % 6.5 % (3.8-10.2); NEUT % 67.1 % (42.8-82.8); PLATELET COUNT 382 K/MM3 (134-434); RBC 4.16 M/mm3 (3.60-5.2); RDW 15.6 % (11.6-15.6); WHITE BLOOD COUNT 12.6 K/mm3 (4.0-10.0)
[2018-05-01] MEDS ORDERED: methylPREDNISolone NA SUCC 125 MG/2 ML VIAL ONE ×2 (18:37→20:02)
[2018-05-01 18:59] LABS: N-TERMINAL BNP 78.9 pg/ml (5-125)
[2018-05-01 19:04] LABS: ALBUMIN 3.5 g/dl (3.4-5.0); ALK PHOS 148 U/L (45-117); ANION GAP 9 MMOL/L (8-16); BILIRUBIN,TOTAL 0.4 mg/dL (0.2-1); BLOOD UREA NITROGEN 15 mg/dL (7-18); CALCIUM 8.9 mg/dL (8.5-10.1); CHLORIDE 106 mmol/L (98-107); CO2 23 mmol/L (21-32); CREATININE 1.1 mg/dL (0.55-1.3); GLUCOSE,RANDOM 93 mg/dL (74-106); SGOT/AST 44 U/L (15-37); SGPT/ALT 30 U/L (13-61); SODIUM 139 mmol/L (136-145); TOT PROT 7.9 g/dl (6.4-8.2)
[2018-05-01] MEDS ORDERED: ALBUTEROL SO4 2.5/IPRATROPIUM 0.5 INH SOL 3 ML VIAL.NEB. NEB ONE ×2 (19:04→20:02)
--- NOTE | 2018-05-01 19:26 | PDOC ---
Attending Attestation - Resident Resident Name: CoriHaven - ED Attending Attestation I have performed the following: I have examined & evaluated the patient, The case was reviewed & discussed with the resident, I agree w/resident's findings & plan, Exceptions are as noted - HPI HPI: 05/01/18 19:25 The patient is a 63 year old female, with a significant past medical history of diastolic CHF, COPD, HTN, DM, Lupus, hyperthyroidism, who presents to the emergency department with, a month of productive cough with yellow/green sputum and diffuse body aches. Patient notes her PCP prescribed her steroids previously , without relief. She completed the 3 week course of steroids 3 weeks ago She denies recent fevers, chills, headache or dizziness. She denies recent nausea, vomit, diarrhea or constipation. She denies recent dysuria, frequency, urgency or hematuria. She denies recent chest pain or shortness of breath. Allergies: gabapentin, penicillins, phenytoin sodium. Surgical History: lap band surgery, cholecystectomy, bilateral hip and knee replacements. Social History: Former smoker. Primary Care Physician: Dr. Hernandez - Physicial Exam PE: 05/01/18 19:26 GENERAL: Awake, alert, and fully oriented, in no acute distress HEAD: No signs of trauma EYES: PERRLA, EOMI, sclera anicteric, conjunctiva clear ENT: Auricles normal inspection, hearing grossly normal, nares patent, oropharynx clear without exudates. Moist mucosa NECK: Normal ROM, supple, no lymphadenopathy, JVD, or masses LUNGS: Diminished breath sounds blt. No work of breathing. No wheezes, and no crackles HEART: Regular rate and rhythm, normal S1 and S2, no murmurs, rubs or gallops ABDOMEN: Soft, nontender, normoactive bowel sounds. No guarding, no rebound. No masses EXTREMITIES: Normal range of motion, no edema. No clubbing or cyanosis. No cords , erythema, or tenderness BACK: No midline spinal tenderness in cervical/thoracic/lumbar region NEUROLOGICAL: Normal speech, cranial nerves intact, negative pronator drift, 5/ 5 strength in all 4 extremities, normal sensation to light touch in all 4 extremities, normal cerebellar exam, normal gait, normal reflexes and tone SKIN: Warm, Dry, normal turgor, no rashes or lesions noted.
[2018-05-01 20:46] LABS: INR 1.15 (0.83-1.09); PROTHROMBIN TIME (PATIENT) 13.6 SEC (9.7-13.0)
[2018-05-01 20:48] LABS: ACTIVATED PTT 32.6 SECONDS (25.2-36.5)
[2018-05-02 00:12] VITALS: BP 127/63; PULSE 90
--- NOTE | 2018-05-02 10:42 | EKG ---
Test Reason : Blood Pressure : / mmHG Vent. Rate : 101 BPM Atrial Rate : 101 BPM P-R Int : 152 ms QRS Dur : 074 ms QT Int : 386 ms P-R-T Axes : 031 -22 070 degrees QTc Int : 500 ms SINUS TACHYCARDIA POSSIBLE LEFT ATRIAL ENLARGEMENT LEFT VENTRICULAR HYPERTROPHY WITH REPOLARIZATION ABNORMALITY ABNORMAL ECG Confirmed by Pipo Bruno MD ([id number]) on 05/02/2018 10:42:06 AM Referred By: Confirmed By:Pipo Bruno MD
== END 2018-05-02 00:13 | disposition home or self-care (01) ==
LOC: JER 15:13
PROC: 3E0F7GC Introduction of Other Therapeutic Substance into Respiratory Tract, Via Natural or Artificial Opening (ICD-10-PCS; principal; 2018-05-01)
PROC: 3E0333Z Introduction of Anti-inflammatory into Peripheral Vein, Percutaneous Approach (ICD-10-PCS; 2018-05-01)
PROC: 3E033NZ Introduction of Analgesics, Hypnotics, Sedatives into Peripheral Vein, Percutaneous Approach (ICD-10-PCS; 2018-05-01)
DX: R06.02 Shortness of breath (principal); J44.9 Chronic obstructive pulmonary disease, unspecified; J45.909 Unspecified asthma, uncomplicated; I25.10 Atherosclerotic heart disease of native coronary artery without angina pectoris; I11.0 Hypertensive heart disease with heart failure; I50.9 Heart failure, unspecified; E11.9 Type 2 diabetes mellitus without complications; Z79.4 Long term (current) use of insulin; E03.9 Hypothyroidism, unspecified; M32.9 Systemic lupus erythematosus, unspecified; Z99.81 Dependence on supplemental oxygen; Z99.3 Dependence on wheelchair; Z86.69 Personal history of other diseases of the nervous system and sense organs; Z96.643 Presence of artificial hip joint, bilateral; Z96.653 Presence of artificial knee joint, bilateral; Z98.84 Bariatric surgery status
CPT/HCPCS: 36415; 71046-TC-FY; 71275-TC; 80053; 82550; 82553; 83735; 83880; 84484; 85025; 85610; 85730; 93005; 93010; 94640; 96374; 96375; 99283-25; J0131

== ENCOUNTER 2018-05-24 10:53 | Observation (INO) | payer OTHER, MEDICARE ==
--- NOTE | 2018-05-24 11:03 | PDOC ---
History of Present Illness - General History Source: Patient Exam Limitations: No Limitations - History of Present Illness Initial Comments: 05/24/18 12:09 The patient is a 63 year old female, with a significant past medical history of CHF, COPD (on 2L at home), SLE, DM, HTN, lupus, who presents to the emergency department via ems from clinic for evaluation of pain and lethargy this morning. The patient states she has been experiencing pain typical of her lupus flares for about a year however, states the pain has been more severe for the past week. The patient reports pain from her right neck, down her back, to her anterior chest, and down her right arm. She states the pain is present at rest, constant, and exacerbated with movement of her right arm. She states she feels she can not lift her right arm. She states the pain in her arm extends from her neck to her fingertips. She states she was not experiencing as much pain before her physicians decreased her prednisone dose to 5mg a year ago. She states she was experiencing a severe amount of pain in the clinic this morning which made her fatigued. She states she did not have a seizure and has not had a seizure since 2009 (on topiramate 100 mg BID and followed by Dr. Block). Secondarily, she reports being admitted to the hospital last month with similar pain, as well as cold symptoms, was given antibiotics, and discharged home. She states she had about a week without pain after discharge, however, states the pain has been gradually increasing since then with significant increase in pain over the past week. She states she spends a great deal of time in bed when she is experiencing pain making daily tasks (bathing, getting dressed) difficult The patient denies chest pain, shortness of breath, headache and dizziness. The patient denies fever, chills, nausea, vomit, diarrhea and constipation. The patient denies dysuria, frequency, urgency and hematuria. Allergies: gabapentin, penicillins, phenytoin sodium. Surgical History: lap band surgery, cholecystectomy, bilateral hip and knee replacements, partial hysterectomy, cataracts Social History: Former smoker (12+ year cessation) Primary Care Physician: Dr. Hernandez Neuro: Dr. Block Rheum: Dr. Kateryna Fuller <Cristy Colvin - Last Filed: 05/24/18 13:12> - General History Source: Patient Exam Limitations: No Limitations <Lisbet Simpson - Last Filed: 05/24/18 15:02> - General Chief Complaint: Seizure Stated Complaint: DIZZINESS Time Seen by Provider: 05/24/18 11:00 Past History <Cristy Colvin - Last Filed: 05/24/18 13:12> - Past Medical History Anemia: No Asthma: Yes Cancer: No Cardiac Disorders: Yes (CAD) CVA: No COPD: Yes (uses 02 at 3l nasal cannula) CHF: No DVT: No Dementia: No Diabetes: Yes GI Disorders: Yes (REFLUX) Disorders: No HTN: Yes Hypercholesterolemia: Yes Liver Disease: No Seizures: Yes (NO RECENT [id number]) Thyroid Disease: Yes (HYPO) - Surgical History Abdominal Surgery: Yes (lapband) Appendectomy: No Cardiac Surgery: No Cholecystectomy: Yes GI Surgery: Yes (LAP sx 11/23/16) Lung Surgery: No Neurologic Surgery: No Orthopedic Surgery: Yes (BILAT HIP REPLACEMENT/BILAT KNEE SX) - Immunization History Immunization Up to Date: Yes - Suicide/Smoking/Psychosocial Hx Smoking Status: Yes Smoking History: Former smoker Have you smoked in the past 12 months: No Number of Cigarettes Smoked Daily: 10 If you are a former smoker, when did you quit?: 22 yrs ago Cigars Per Day: 0 Hx Alcohol Use: No Drug/Substance Use Hx: No Substance Use Type: None Hx Substance Use Treatment: No <Lisbet Simpson - Last Filed: 05/24/18 15:02> - Past Medical History Allergies/Adverse Reactions: Allergies Allergy/AdvReac Type Severity Reaction Status Date / Time gabapentin [From Neurontin] Allergy PALPITATIONS, Verified 05/01/18 15:35 PASSES OUT Penicillins Allergy TONGUE Verified 05/01/18 15:35 Swelling phenytoin sodium Allergy diarrhea/vo Verified 05/01/18 15:35 [From Dilantin] miting phenytoin sodium extended Allergy Verified 05/01/18 15:35 [From Dilantin] theophylline [Theophylline] Allergy diarrhea,SE Verified 05/01/18 15:35 IZURES fresh garlic Allergy Uncoded 05/01/18 15:35 Home Medications: Ambulatory Orders Albuterol 0.083% Nebulizer Myriam [Ventolin 0.083% Nebulizer Soln -] 1 amp NEB PRN 10/24/17 Atorvastatin Ca [Lipitor] 10 mg PO HS 10/24/17 Folic Acid 1 mg PO DAILY 10/24/17 Glipizide 10 mg PO BID 10/24/17 Hydroxychloroquine So4 [Plaquenil -] 200 mg PO BID 10/24/17 Insulin Detemir [Levemir Flextouch] 20 unit SQ BID 10/24/17 Losartan Potassium 100 mg PO DAILY 10/24/17 Methotrexate Sodium [Trexall] 30 mg PO WEEKLY 10/24/17 Topiramate [Topiramate ER] 150 mg PO BID 10/24/17 Budesonide/Formeterol Fumarate [SYMBICORT 160/4.5mcg -] 2 inh PO BID 05/01/18 Carbamazepine [Tegretol -] 100 mg PO BID 05/01/18 Ferrous Sulfate [Iron] 325 mg PO DAILY 05/01/18 Ibuprofen [Motrin -] 600 mg PO TID PRN 05/01/18 Insulin Lispro [Humalog] 0 unit SQ TID 05/01/18 Levothyroxine [Synthroid -] 100 mcg PO CHATMAN 05/01/18 Montelukast Sodium [Singulair] 10 mg PO DAILY 05/01/18 Pramipexole Di-HCl [Mirapex] 0.5 mg PO BID 05/01/18 Prednisone 5 mg PO DAILY 05/01/18 Sertraline HCl [Zoloft] 100 mg PO DAILY 05/01/18 Umeclidinium [place] [Incruse Ellipta] 62.5 mcg IH AM 05/01/18 Furosemide [Lasix] 80 mg PO DAILY 05/24/18 Linaclotide [Linzess] 145 mcg PO DAILY 05/24/18 Review of Systems - Review of Systems Able to Perform ROS?: Yes Comments:: 05/24/18 12:09 CONSTITUTIONAL: (+) fatigue. Absent: fever, no chills, EYES: Absent: visual changes ENT: Absent: ear pain, no sore throat CARDIOVASCULAR: Absent: chest pain, no palpitations RESPIRATORY: Absent: cough, no SOB GASTROINTESTINAL: Absent: abdominal pain, no nausea, no vomiting, no constipation, no diarrhea GENITOURINARY: Absent: dysuria, no frequency, no hematuria MUSCULOSKELETAL: (+) R neck pain, R back pain, RUE pain. SKIN: Absent: rash NEURO: Absent: headache <Morenzi,Cristy - Last Filed: 05/24/18 13:12> *Physical Exam - Vital Signs Last Vital Signs Temp Pulse Resp BP Pulse Ox 99.3 F 117 H 20 99/66 98 05/24/18 10:59 05/24/18 10:59 05/24/18 10:59 05/24/18 10:59 05/24/18 10:59 - Physical Exam Comments: 05/24/18 12:10 GENERAL: The patient is in no acute distress. Obese. HEAD: Normal with no signs of trauma. EYES: PERRLA, EOMI, sclera anicteric, conjunctiva clear. ENT: Ears normal, nares patent, oropharynx clear without exudates. Moist mucous membranes. NECK: Normal range of motion, supple without lymphadenopathy, JVD, or masses. LUNGS: Breath sounds equal, clear to auscultation bilaterally. No wheezes, and no crackles. HEART:Regular rate and rhythm, normal S1 and S2 without murmur, rub or gallop. ABDOMEN: Soft, nontender, normoactive bowel sounds. No guarding, no rebound. No masses palpable. EXTREMITIES: Normal range of motion, no edema. No clubbing or cyanosis. No erythema, or tenderness. NEUROLOGICAL: Cranial nerves II through XII grossly intact. Normal speech. No focal neurological deficits. MUSCULOSKELETAL: Back non-tender to palpation, no CVA tenderness SKIN: Warm, Dry, normal turgor, no rashes or lesions noted. <Cristy Colvin - Last Filed: 05/24/18 13:12> ED Treatment Course - LABORATORY CBC & Chemistry Diagram: 05/24/18 11:25 05/24/18 11:25 <Cristy Colvin - Last Filed: 05/24/18 13:12> - LABORATORY CBC & Chemistry Diagram: 05/24/18 11:25 05/24/18 11:25 <Lisbet Simpson - Last Filed: 05/24/18 15:02> Medical Decision Making - Medical Decision Making 05/24/18 13:12 Dr. Fuller was paged via phone answering service at this time, awaiting call back. <Cristy Colvin - Last Filed: 05/24/18 13:12> - Medical Decision Making 05/24/18 11:09 Ms Montoya is a 63 yo F h/o CAD, HLD, SLE, HTN, COPD, DM, Seizure Disorder (on ), DANY who was referred from clinic due to altered mental status Pt presented to the office at her baseline. While there, she became lethargic and was noted by the provider to have tonic movement of the right arm and hand. 05/24/18 12:52 EKG -Sinus tachycardia rate of 117bpm, LAD, LVH, no st elevation or depression, t waves upright 05/24/18 12:55 Laboratory Tests 05/24/18 05/24/18 11:25 11:25 WBC 13.8 H Hgb 13.5 Hct 40.8 Plt Count 487 H D INR 1.17 H 05/24/18 14:[address] Kateryna Canonn (repairer welding systems and equipment - [phone]) The patient was seen approximately 1 month ago and at that time she was stable The patient's Lupus markers have been stable since she has been cared for by Dr Cannon The patient reports arm pain, neck pain, back pain, joint pain She states tylenol has not helped She thinks this is related to lupus Pt denies trauma Call placed to Dr. Khan Will place on observation No additional narcotic medications <Lisbet Simpson - Last Filed: 05/24/18 15:02> *DC/Admit/Observation/Transfer - Attestations Scribe Attestion: 05/24/18 12:11 Documentation prepared by Cristy Colvin, acting as medical laboratory manager for Lisbet Simpson MD <Cristy Colvin - Last Filed: 05/24/18 13:12> - Discharge Dispostion Decision to Admit order: Yes <Lisbet Simpson - Last Filed: 05/24/18 15:02> Diagnosis at time of Disposition: Seizure disorder Altered mental status Qualifiers: Altered mental status type: transient alteration of awareness Qualified Code(s) : R40.4 - Transient alteration of awareness - Discharge Dispostion Condition at time of disposition: Stable - Referrals Referrals: Goran Hernandez MD [Primary Care Provider] - Rubina Cannon MD [Staff Physician] -
[2018-05-24] MEDS ORDERED: morphine CARPU-JECT 4 MG/1 ML DISP.SYRIN IVPUSH ONE (11:47)
[2018-05-24] MEDS ORDERED: ACETAMINOPHEN 1000 MG/100 ML VIAL (NON FORMULARY) IVPB ONE (11:47)
[2018-05-24] MEDS ORDERED: ACETAMINOPHEN INJECTION 100 ML IVPB ONE (12:04)
[2018-05-24] MEDS ORDERED: morphine SULFATE 4 MG/ML VIAL ONE (12:04)
[2018-05-24 12:13] LABS: BASO % 0.9 % (0-2.0); EOS % 0.8 % (0-4.5); HEMATOCRIT 40.8 % (32.4-45.2); HEMOGLOBIN 13.5 GM/dL (10.7-15.3); MCH 30.2 pg (25.7-33.7); MEAN CELL VOLUME 91.6 fl (80-96); MONO % 10.7 % (3.8-10.2); NEUT % 61.6 % (42.8-82.8); PLATELET COUNT 487 K/MM3 (134-434); RBC 4.45 M/mm3 (3.60-5.2); RDW 15.7 % (11.6-15.6); WHITE BLOOD COUNT 13.8 K/mm3 (4.0-10.0)
[2018-05-24 12:28] LABS: INR 1.17 (0.83-1.09); PROTHROMBIN TIME (PATIENT) 13.8 SEC (9.7-13.0)
--- NOTE | 2018-05-24 12:28 | EKG ---
Test Reason : Blood Pressure : / mmHG Vent. Rate : 117 BPM Atrial Rate : 117 BPM P-R Int : 146 ms QRS Dur : 068 ms QT Int : 320 ms P-R-T Axes : 026 -35 077 degrees QTc Int : 446 ms SINUS TACHYCARDIA LEFT AXIS DEVIATION LEFT VENTRICULAR HYPERTROPHY WITH REPOLARIZATION ABNORMALITY ABNORMAL ECG WHEN COMPARED WITH ECG OF 01-MAY-2018 20:56, NO SIGNIFICANT CHANGE WAS FOUND Confirmed by YAHAIRA WARREN, KIKI ([id number]) on 05/24/2018 12:28:18 PM Referred By: Confirmed By:KIKI SYED MD
[2018-05-24 13:04] LABS: ALBUMIN 3.5 g/dl (3.4-5.0); ALK PHOS 152 U/L (45-117); ANION GAP 8 MMOL/L (8-16); BILIRUBIN,TOTAL 0.6 mg/dL (0.2-1); BLOOD UREA NITROGEN 21 mg/dL (7-18); CALCIUM 9.7 mg/dL (8.5-10.1); CHLORIDE 100 mmol/L (98-107); CO2 28 mmol/L (21-32); CREATININE 1.4 mg/dL (0.55-1.3); GLUCOSE,RANDOM 134 mg/dL (74-106); POTASSIUM 5.3 mmol/L (3.5-5.1); SGOT/AST 58 U/L (15-37); SGPT/ALT 39 U/L (13-61); SODIUM 136 mmol/L (136-145); TOT PROT 8.4 g/dl (6.4-8.2)
[2018-05-24] MEDS ORDERED: SODIUM CHLORIDE 1,000 ML IV STA (14:14)
[2018-05-24] MEDS ORDERED: METHOCARBAMOL 500 MG TABLET PO ONE (14:16)
[2018-05-24] MEDS ORDERED: LIDOCAINE 5% TOPICAL PATCH TP ONE (14:17)
[2018-05-24] MEDS ORDERED: LIDOCAINE 5% TOPICAL PATCH ONE (14:26)
[2018-05-24] MEDS ORDERED: METHOCARBAMOL 500 MG TABLET ONE (14:26)
[2018-05-24] MEDS ORDERED: IBUPROFEN 600 MG TABLET (FP) PO PRN (16:08)
[2018-05-24] MEDS ORDERED: ALBUTEROL SO4 0.083% IH SOL 2.5 MG/3 ML VIAL.NEB. NEB PRN (16:15)
--- NOTE | 2018-05-24 16:43 | HP ---
CHIEF COMPLAINT: PCP: HISTORY OF PRESENT ILLNESS: ER course was notable for: (1) (2) (3) Recent Travel: PAST MEDICAL HISTORY: PAST SURGICAL HISTORY: Social History: Smoking: Alcohol: Drugs: Family History: Allergies gabapentin [From Neurontin] Allergy (Verified 05/01/18 15:35) PALPITATIONS, PASSES OUT Penicillins Allergy (Verified 05/01/18 15:35) TONGUE Swelling phenytoin sodium [From Dilantin] Allergy (Verified 05/01/18 15:35) diarrhea/vomiting phenytoin sodium extended [From Dilantin] Allergy (Verified 05/01/18 15:35) theophylline [Theophylline] Allergy (Verified 05/01/18 15:35) diarrhea,SEIZURES fresh garlic Allergy (Uncoded 05/01/18 15:35) HOME MEDICATIONS: Home Medications Medication Instructions Recorded Albuterol 0.083% Nebulizer Myriam 1 amp NEB PRN 10/24/17 [Ventolin 0.083% Nebulizer Soln -] Atorvastatin Ca [Lipitor] 10 mg PO HS 10/24/17 Folic Acid 1 mg PO DAILY 10/24/17 Glipizide 10 mg PO BID 10/24/17 Hydroxychloroquine So4 [Plaquenil 200 mg PO BID 10/24/17 -] Insulin Detemir [Levemir Flextouch] 20 unit SQ BID 10/24/17 Losartan Potassium 100 mg PO DAILY 10/24/17 Methotrexate Sodium [Trexall] 30 mg PO WEEKLY 10/24/17 Topiramate [Topiramate ER] 150 mg PO BID 10/24/17 Budesonide/Formeterol Fumarate 2 inh PO BID 05/01/18 [SYMBICORT 160/4.5mcg -] Carbamazepine [Tegretol -] 100 mg PO BID 05/01/18 Ferrous Sulfate [Iron] 325 mg PO DAILY 05/01/18 Ibuprofen [Motrin -] 600 mg PO TID PRN 05/01/18 Insulin Lispro [Humalog] 0 unit SQ TID 05/01/18 Levothyroxine [Synthroid -] 100 mcg PO CHATMAN 05/01/18 Montelukast Sodium [Singulair] 10 mg PO DAILY 05/01/18 Pramipexole Di-HCl [Mirapex] 0.5 mg PO BID 05/01/18 Prednisone 5 mg PO DAILY 05/01/18 Sertraline HCl [Zoloft] 100 mg PO DAILY 05/01/18 Umeclidinium [place] [Incruse 62.5 mcg IH AM 05/01/18 Ellipta] Furosemide [Lasix] 80 mg PO DAILY 05/24/18 Linaclotide [Linzess] 145 mcg PO DAILY 05/24/18 REVIEW OF SYSTEMS CONSTITUTIONAL: Absent: fever, chills, diaphoresis, generalized weakness, malaise, loss of appetite, weight change HEENT: Absent: rhinorrhea, nasal congestion, throat pain, throat swelling, difficulty swallowing, mouth swelling, ear pain, eye pain, visual changes CARDIOVASCULAR: Absent: chest pain, syncope, palpitations, irregular heart rate, lightheadedness , peripheral edema RESPIRATORY: Absent: cough, shortness of breath, dyspnea with exertion, orthopnea, wheezing, stridor, hemoptysis GASTROINTESTINAL: Absent: abdominal pain, abdominal distension, nausea, vomiting, diarrhea, constipation, melena, hematochezia GENITOURINARY: Absent: dysuria, frequency, urgency, hesitancy, hematuria, flank pain, genital pain MUSCULOSKELETAL: Absent: myalgia, arthralgia, joint swelling, back pain, neck pain SKIN: Absent: rash, itching, pallor HEMATOLOGIC/IMMUNOLOGIC: Absent: easy bleeding, easy bruising, lymphadenopathy, frequent infections ENDOCRINE: Absent: unexplained weight gain, unexplained weight loss, heat intolerance, cold intolerance NEUROLOGIC: Absent: headache, focal weakness or paresthesias, dizziness, unsteady gait, seizure, mental status changes, bladder or bowel incontinence PSYCHIATRIC: Absent: anxiety, depression, suicidal or homicidal ideation, hallucinations. PHYSICAL EXAMINATION Vital Signs - 24 hr 05/24/18 05/24/18 05/24/18 10:59 12:00 13:44 Temperature 99.3 F Pulse Rate 117 H 109 H Pulse Rate [ 108 H Left] Respiratory 20 20 20 Rate Blood Pressure 99/66 106/56 L Blood Pressure 106/56 L [Arm] O2 Sat by Pulse 98 97 99 Oximetry (%) GENERAL: Awake, alert, and fully oriented, in no acute distress. HEAD: Normal with no signs of trauma. EYES: Pupils equal, round and reactive to light, extraocular movements intact, sclera anicteric, conjunctiva clear. No lid lag. EARS, NOSE, THROAT: Ears normal, nares patent, oropharynx clear without exudates. Moist mucous membranes. NECK: Normal range of motion, supple without lymphadenopathy, JVD, or masses. LUNGS: Breath sounds equal, clear to auscultation bilaterally. No wheezes, and no crackles. No accessory muscle use. HEART: Regular rate and rhythm, normal S1 and S2 without murmur, rub or gallop. ABDOMEN: Soft, nontender, not distended, normoactive bowel sounds, no guarding, no rebound, no masses. No hepatomegaly or splenomegaly. MUSCULOSKELETAL: Normal range of motion at all joints. No bony deformities or tenderness. No CVA tenderness. UPPER EXTREMITIES: 2+ pulses, warm, well-perfused. No cyanosis. No clubbing. No peripheral edema. LOWER EXTREMITIES: 2+ pulses, warm, well-perfused. No calf tenderness. No peripheral edema. NEUROLOGICAL: Cranial nerves II-XII intact. Normal speech. Normal gait. PSYCHIATRIC: Cooperative. Good eye contact. Appropriate mood and affect. SKIN: Warm, dry, normal turgor, no rashes or lesions noted, normal capillary refill. Laboratory Results - last 24 hr 05/24/18 05/24/18 05/24/18 11:25 11:25 11:25 WBC 13.8 H RBC 4.45 Hgb 13.5 Hct 40.8 MCV 91.6 MCH 30.2 MCHC 33.0 RDW 15.7 H Plt Count 487 H D MPV 8.0 Absolute Neuts (auto) 8.5 H Neutrophils % 61.6 Lymphocytes % 26.0 Monocytes % 10.7 H Eosinophils % 0.8 D Basophils % 0.9 Nucleated RBC % 0 PT with INR 13.80 H INR 1.17 H Sodium 136 Potassium 5.3 H Chloride 100 Carbon Dioxide 28 Anion Gap 8 BUN 21 H Creatinine 1.4 H Creat Clearance w eGFR 38.10 Random Glucose 134 H Calcium 9.7 Total Bilirubin 0.6 AST 58 H ALT 39 Alkaline Phosphatase 152 H Creatine Kinase 158 Creatine Kinase Index 0.6 CK-MB (CK-2) < 1.0 Troponin I < 0.02 Total Protein 8.4 H Albumin 3.5 Blood Type Antibody Screen 05/24/18 11:25 WBC RBC Hgb Hct MCV MCH MCHC RDW Plt Count MPV Absolute Neuts (auto) Neutrophils % Lymphocytes % Monocytes % Eosinophils % Basophils % Nucleated RBC % PT with INR INR Sodium Potassium Chloride Carbon Dioxide Anion Gap BUN Creatinine Creat Clearance w eGFR Random Glucose Calcium Total Bilirubin AST ALT Alkaline Phosphatase Creatine Kinase Creatine Kinase Index CK-MB (CK-2) Troponin I Total Protein Albumin Blood Type Cancelled Antibody Screen Cancelled ASSESSMENT/PLAN:
--- NOTE | 2018-05-24 17:32 | PN ---
Teaching Attending Note Name of Resident: Harriet Brink ATTENDING PHYSICIAN STATEMENT I saw and evaluated the patient. I reviewed the resident's note and discussed the case with the resident. I agree with the resident's findings and plan as documented with exceptions below. SUBJECTIVE: 63 yof with PMhx of lupus, IDDM, asthma, COPD (3l home O2), Chronic diastolic dysfunction, HTN, HLD, seizure disorder, morbid obesity, DANY on CPAP and multiple admissions for COPD exacerbations sent from Clinic by Dr. Alban Dykes for reported seizures. Per ED, patient was reported to have right arm shaking and lethargy at the clinic and sent to the ED. Per patient, she never had a seizure, reports had shaking of her right arm from pain, denies any lethargy. States went to clinic today for ongoing right arm pain. Patient has SLE, stable on meds (methotrexate/Plaquenil/Prednisone 5 mg). She was seen by her console operator Dr. Cannon a month ago with no concerns. Reports since then has been having progressive generalized aches and pains with decreased ambulation. Over the last few days, has been having Right arm, sharp radiating up neck and mid thoracic spine and down the arm. Has chronic RUE tingling/numbness with no recent change. Denies right hand weakness but limited right arm movements given the same. Denies any recent trauma/heavy lifting. 12 point ROS done, neg except above, no recent seizures, abdominal or urinary incontinence, leg weakness, dyspnea, fevers, chills or new concerns otherwise. OBJECTIVE: Vital Signs Period Temp Pulse Resp BP Sys/Oconnell Pulse Ox Last 24 Hr 99.3 F 97-117 16-20 99-109/56-66 97-99 Intake & Output 05/21/18 05/22/18 05/23/18 05/24/18 23:59 23:59 23:59 23:59 Weight 258 lb GENERAL: Awake, alert, and fully oriented, in no acute distress, no use of accessory muscles of respiration. HEAD: Normal with no signs of trauma. EYES: Pupils equal, round and reactive to light, extraocular movements intact, sclera anicteric, conjunctiva clear. No lid lag. EARS, NOSE, THROAT: Ears normal, nares patent, oropharynx clear without exudates. Moist mucous membranes. NECK: Soft,supple, limited exam due to habitus, no limitation in ROM. LUNGS: Breath sounds equal, clear to auscultation bilaterally. No wheezes, and no crackles. No accessory muscle use. HEART: Regular rate and rhythm, normal S1 and S2 ABDOMEN: Soft, obese, nontender, not distended, normoactive bowel sounds, no guarding, no rebound, no masses. MUSCULOSKELETAL: RUE mild limitation ROM at elevation of right shoulder, able to elevate above 90 degrees with pain, bilateral hand power 5/5 (subtle weakness RUE), decreased sensation RUE(Chronic per patient), no spinal tenderness UPPER EXTREMITIES: 2+ pulses, warm, well-perfused. No cyanosis. No clubbing. No peripheral edema. LOWER EXTREMITIES: 2+ pulses, warm, well-perfused. No calf tenderness. No peripheral edema. NEUROLOGICAL: AAOx3, facial symmetry, RUE exam as above, power 5/5, Cranial nerves II-XII intact. Normal speech. Gait not observed PSYCHIATRIC: Cooperative. Good eye contact. Appropriate mood and affect. SKIN: Warm, dry, normal turgor, no rashes or lesions noted, normal capillary refill. Home Medications Medication Instructions Recorded Albuterol 0.083% Nebulizer Myriam 1 amp NEB PRN 10/24/17 [Ventolin 0.083% Nebulizer Soln -] Atorvastatin Ca [Lipitor] 10 mg PO HS 10/24/17 Folic Acid 1 mg PO DAILY 10/24/17 Glipizide 10 mg PO BID 10/24/17 Hydroxychloroquine So4 [Plaquenil 200 mg PO BID 10/24/17 -] Insulin Detemir [Levemir Flextouch] 20 unit SQ BID 10/24/17 Losartan Potassium 100 mg PO DAILY 10/24/17 Methotrexate Sodium [Trexall] 30 mg PO WEEKLY 10/24/17 Topiramate [Topiramate ER] 150 mg PO BID 10/24/17 Budesonide/Formeterol Fumarate 2 inh PO BID 05/01/18 [SYMBICORT 160/4.5mcg -] Carbamazepine [Tegretol -] 100 mg PO BID 05/01/18 Ferrous Sulfate [Iron] 325 mg PO DAILY 05/01/18 Ibuprofen [Motrin -] 600 mg PO TID PRN 05/01/18 Insulin Lispro [Humalog] 0 unit SQ TID 05/01/18 Levothyroxine [Synthroid -] 100 mcg PO CHATMAN 05/01/18 Montelukast Sodium [Singulair] 10 mg PO DAILY 05/01/18 Pramipexole Di-HCl [Mirapex] 0.5 mg PO BID 05/01/18 Prednisone 5 mg PO DAILY 05/01/18 Sertraline HCl [Zoloft] 100 mg PO DAILY 05/01/18 Umeclidinium Rosenberg [Incruse 62.5 mcg IH AM 05/01/18 Ellipta] Furosemide [Lasix] 80 mg PO DAILY 05/24/18 Linaclotide [Linzess] 145 mcg PO DAILY 05/24/18 Active Medications Albuterol Sulfate (Ventolin 0.083% Nebulizer Soln -) 1 amp NEB PRN DONTA Atorvastatin Calcium (Lipitor -) 10 mg PO HS [facility] Budesonide/Formoterol Fumarate (Symbicort 160/4.5mcg -) 2 puff IH BID DONTA Carbamazepine (Tegretol -) 100 mg PO BID [facility] Folic Acid (Folic Acid -) 1 mg PO DAILY [facility] Gabapentin (Neurontin -) 300 mg PO DAILY ONE Stop: 05/24/18 17:24 Hydroxychloroquine Sulfate (Plaquenil -) 200 mg PO BID [facility] Sodium Chloride (Normal Saline -) 1,000 mls @ 125 mls/hr IV ASDIR STA Stop: 05/24/18 22:13 Last Admin: 05/24/18 14:35 Dose: 125 mls/hr Ibuprofen (Motrin -) 600 mg PO TID PRN PRN Reason: PAIN Insulin Aspart (Novolog Vial Sliding Scale -) 1 vial SQ ACHS [facility]; Protocol Insulin Detemir (Levemir Vial) 20 units SQ BID [facility] Levothyroxine Sodium (Synthroid -) 100 mcg PO CHATMAN [facility] Miscellaneous (Lidoderm Patch Removal) 1 each MC DAILY@2200 [facility] Montelukast Sodium (Singulair -) 10 mg PO DAILY [facility] Non-Formulary Medication (Ferrous Sulfate [Iron]) 325 mg PO DAILY [facility] Non-Formulary Medication (Linaclotide [Linzess]) 145 mcg PO DAILY [facility] Non-Formulary Medication (Sertraline Hcl [Zoloft]) 100 mg PO DAILY [facility] Non-Formulary Medication (Topiramate [Topiramate Er]) 200 mg PO BID [facility] Non-Formulary Medication (Umeclidinium Rosenberg [Incruse Ellipta]) 62.5 mcg IH AM [facility] Non-Formulary Medication (Methotrexate Sodium [Trexall]) 30 mg PO ONCE ONE Stop: 05/24/18 16:47 Pramipexole Dihydrochloride (Mirapex -) 0.5 mg PO BID [facility] Prednisone (Deltasone -) 5 mg PO DAILY [facility] Laboratory Results - last 24 hr 05/24/18 05/24/18 05/24/18 11:25 11:25 11:25 WBC 13.8 H RBC 4.45 Hgb 13.5 Hct 40.8 MCV 91.6 MCH 30.2 MCHC 33.0 RDW 15.7 H Plt Count 487 H D MPV 8.0 Absolute Neuts (auto) 8.5 H Neutrophils % 61.6 Lymphocytes % 26.0 Monocytes % 10.7 H Eosinophils % 0.8 D Basophils % 0.9 Nucleated RBC % 0 PT with INR 13.80 H INR 1.17 H Sodium 136 Potassium 5.3 H Chloride 100 Carbon Dioxide 28 Anion Gap 8 BUN 21 H Creatinine 1.4 H Creat Clearance w eGFR 38.10 Random Glucose 134 H Calcium 9.7 Total Bilirubin 0.6 AST 58 H ALT 39 Alkaline Phosphatase 152 H Creatine Kinase 158 Creatine Kinase Index 0.6 CK-MB (CK-2) < 1.0 Troponin I < 0.02 Total Protein 8.4 H Albumin 3.5 Blood Type Antibody Screen 05/24/18 11:25 WBC RBC Hgb Hct MCV MCH MCHC RDW Plt Count MPV Absolute Neuts (auto) Neutrophils % Lymphocytes % Monocytes % Eosinophils % Basophils % Nucleated RBC % PT with INR INR Sodium Potassium Chloride Carbon Dioxide Anion Gap BUN Creatinine Creat Clearance w eGFR Random Glucose Calcium Total Bilirubin AST ALT Alkaline Phosphatase Creatine Kinase Creatine Kinase Index CK-MB (CK-2) Troponin I Total Protein Albumin Blood Type Cancelled Antibody Screen Cancelled CT head images reviewed ASSESSMENT AND PLAN: 63 yof with PMHx lupus, IDDM, asthma, COPD (3l home O2),HTN, HLD, seizure disorder, morbid obesity, DANY on CPAP and multiple admissions for COPD exacerbations admitted with reported seizure and RUE pain -Reported seizure -RUE pain, suspected cervical radiculopathy, r/o SLE flare -Dehydration -CKD stage II -IDDM -SLE -COPD on 3L home oxygen -HTN -HLD -Seizure disorder -Morbid obesity -DANY on CPAP Plan: Patient denies seizure, reports shaking from pain. Continue Tegretol/Topiramate , seizure precautions. Neurology input Dr. Block. RUE symptoms suggestive of cervical radiculopathy. Check C-spine xrays, start neurontin, flexeril. Pain control with tylenol/ibuprofen (home med, continue with caution). PT eval IV hydration. ?SLE flare. Dr. Cannon contacted from the ED, recommend continuation of current doses of methotrexate/plaquenil/prednisone. Complement levels/Anti-ds DNA and Anti-phospholipid antibody sent, follow up Gentle hydration, hold lasix. Home levemir, ISS, diabetic diet. Hold oral diabetic agents for now. COPD stable, no concerns for exacerbation. oxygen suppl/nebs prn. Continue symbicort. Continue sertraline/levothyroxine/Pramipexole. DVTPPX heparin DIspo d/c in 24 hours if no new concerns. Patient advised will need outpatient follow up with rheumatology/orthopedic and PT for continued work up and monitoring if no concerns inhouse Admit to obs. Plan discussed with patient in detail, all questions answered. Care co-ordinated with ED. Total admit time 55 min.
[2018-05-24] MEDS ORDERED: GABAPENTIN 300 MG CAPSULE (FP) PO SCH (18:00)
[2018-05-24] MEDS ORDERED: METHOTREXATE 2.5 MG TABLET PO ONE (18:00)
--- NOTE | 2018-05-24 18:00 | HP ---
CHIEF COMPLAINT: arm pain PCP: HISTORY OF PRESENT ILLNESS: The patient is a 63 yo F PMH of lupus, IDDM, asthma, COPD (3l home O2), HLD, seizure disorder, morbid obesity, and multiple admissions for COPD exacerbations presented referred from Dr Dykes (sap specialist) office for evaluation of AMS , possible seizure. The patient is complaining of generalized joint pain for a month and fatigue. She has been staying in bed for that time. The patient also reports right upper extremity pain, radiating to the right side on her neck and down to her right hand, numbness, tingling in upper extremities as well as in her legs. She tried Ibuprophen without improvement. The patient visited her Raw Scales Operator Dr Cannon about month ago and was told that her lupus is stable, no medications were changed. She aso saw her Neurologist Dr Block 2 months ago, no medications changed, per patient "last seizure was years ago". Pt denies any fever, chills, abd pain, n/d, urinary sxs, recent travel, blood in stools, sick contacts. ER course was notable for: (1) Morphine (2)x rays of upper extremities PAST MEDICAL HISTORY: as above PAST SURGICAL HISTORY: cholecystectomy 4 b/l hip and knee replacement lap band surgery Social History: Smoking: quit 21 yr ago Alcohol: denies Drugs: denies Family History: N/A Allergies gabapentin [From Neurontin] Allergy (Verified 05/01/18 15:35) PALPITATIONS, PASSES OUT Penicillins Allergy (Verified 05/01/18 15:35) TONGUE Swelling phenytoin sodium [From Dilantin] Allergy (Verified 05/01/18 15:35) diarrhea/vomiting phenytoin sodium extended [From Dilantin] Allergy (Verified 05/01/18 15:35) theophylline [Theophylline] Allergy (Verified 05/01/18 15:35) diarrhea,SEIZURES fresh garlic Allergy (Uncoded 05/01/18 15:35) HOME MEDICATIONS: Home Medications Medication Instructions Recorded Albuterol 0.083% Nebulizer Myriam 1 amp NEB PRN 10/24/17 [Ventolin 0.083% Nebulizer Soln -] Atorvastatin Ca [Lipitor] 10 mg PO HS 10/24/17 Folic Acid 1 mg PO DAILY 10/24/17 Hydroxychloroquine So4 [Plaquenil 200 mg PO BID 10/24/17 -] Insulin Detemir [Levemir Flextouch] 20 unit SQ BID 10/24/17 Losartan Potassium 100 mg PO DAILY 10/24/17 Methotrexate Sodium [Trexall] 30 mg PO WEEKLY 10/24/17 Topiramate [Topiramate ER] 150 mg PO BID 10/24/17 Budesonide/Formeterol Fumarate 2 inh PO BID 05/01/18 [SYMBICORT 160/4.5mcg -] Carbamazepine [Tegretol -] 100 mg PO BID 05/01/18 Ferrous Sulfate [Iron] 325 mg PO DAILY 05/01/18 Ibuprofen [Motrin -] 600 mg PO TID PRN 05/01/18 Insulin Lispro [Humalog] 0 unit SQ TID 05/01/18 Levothyroxine [Synthroid -] 100 mcg PO CHATMAN 05/01/18 Montelukast Sodium [Singulair] 10 mg PO DAILY 05/01/18 Pramipexole Di-HCl [Mirapex] 0.5 mg PO BID 05/01/18 Prednisone 5 mg PO DAILY 05/01/18 Sertraline HCl [Zoloft] 100 mg PO DAILY 05/01/18 Umeclidinium Thornton [Incruse 62.5 mcg IH AM 05/01/18 Ellipta] Furosemide [Lasix] 80 mg PO DAILY 05/24/18 Linaclotide [Linzess] 145 mcg PO DAILY 05/24/18 REVIEW OF SYSTEMS CONSTITUTIONAL: Absent: fever, chills, diaphoresis, generalized weakness, malaise, loss of appetite, weight change HEENT: Absent: rhinorrhea, nasal congestion, throat pain, throat swelling, difficulty swallowing, mouth swelling, ear pain, eye pain, visual changes CARDIOVASCULAR: Absent: chest pain, syncope, palpitations, irregular heart rate, lightheadedness , peripheral edema RESPIRATORY: Absent: cough, shortness of breath, dyspnea with exertion, orthopnea, wheezing, stridor, hemoptysis GASTROINTESTINAL: Absent: abdominal pain, abdominal distension, nausea, vomiting, diarrhea, constipation, melena, hematochezia GENITOURINARY: Absent: dysuria, frequency, urgency, hesitancy, hematuria, flank pain, genital pain MUSCULOSKELETAL: Absent: myalgia, arthralgia, joint swelling, back pain, neck pain SKIN: Absent: rash, itching, pallor HEMATOLOGIC/IMMUNOLOGIC: Absent: easy bleeding, easy bruising, lymphadenopathy, frequent infections ENDOCRINE: Absent: unexplained weight gain, unexplained weight loss, heat intolerance, cold intolerance NEUROLOGIC: Absent: headache, focal weakness or paresthesias, dizziness, unsteady gait, seizure, mental status changes, bladder or bowel incontinence PSYCHIATRIC: Absent: anxiety, depression, suicidal or homicidal ideation, hallucinations. PHYSICAL EXAMINATION Vital Signs - 24 hr 05/24/18 05/24/18 05/24/18 10:59 12:00 13:44 Temperature 99.3 F Pulse Rate 117 H 109 H Pulse Rate [ 108 H Left] Respiratory 20 20 20 Rate Blood Pressure 99/66 106/56 L Blood Pressure 106/56 L [Arm] O2 Sat by Pulse 98 97 99 Oximetry (%) 05/24/18 16:50 Temperature Pulse Rate Pulse Rate [ 97 H Left] Respiratory 16 Rate Blood Pressure Blood Pressure 109/58 L [Arm] O2 Sat by Pulse 99 Oximetry (%) GENERAL: Awake, alert, and fully oriented, in no acute distress. HEAD: Normal with no signs of trauma. EYES: Pupils equal, round and reactive to light, extraocular movements intact, sclera anicteric, conjunctiva clear. No lid lag. EARS, NOSE, THROAT: Ears normal, nares patent, oropharynx clear without exudates. Moist mucous membranes. NECK: Normal range of motion, supple without lymphadenopathy, JVD, or masses. LUNGS: Breath sounds equal, clear to auscultation bilaterally. No wheezes, and no crackles. No accessory muscle use. HEART: Regular rate and rhythm, normal S1 and S2 without murmur, rub or gallop. ABDOMEN: Soft, nontender, not distended, normoactive bowel sounds, no guarding, no rebound, no masses. No hepatomegaly or splenomegaly. MUSCULOSKELETAL: Normal range of motion at all joints. No bony deformities or tenderness. No CVA tenderness. UPPER EXTREMITIES: 2+ pulses, warm, well-perfused. No cyanosis. No clubbing. No peripheral edema. LOWER EXTREMITIES: 2+ pulses, warm, well-perfused. No calf tenderness. No peripheral edema. NEUROLOGICAL: Cranial nerves II-XII intact. Normal speech. Normal gait. PSYCHIATRIC: Cooperative. Good eye contact. Appropriate mood and affect. SKIN: Warm, dry, normal turgor, no rashes or lesions noted, normal capillary refill. Laboratory Results - last 24 hr 05/24/18 05/24/18 05/24/18 11:25 11:25 11:25 WBC 13.8 H RBC 4.45 Hgb 13.5 Hct 40.8 MCV 91.6 MCH 30.2 MCHC 33.0 RDW 15.7 H Plt Count 487 H D MPV 8.0 Absolute Neuts (auto) 8.5 H Neutrophils % 61.6 Lymphocytes % 26.0 Monocytes % 10.7 H Eosinophils % 0.8 D Basophils % 0.9 Nucleated RBC % 0 PT with INR 13.80 H INR 1.17 H Sodium 136 Potassium 5.3 H Chloride 100 Carbon Dioxide 28 Anion Gap 8 BUN 21 H Creatinine 1.4 H Creat Clearance w eGFR 38.10 Random Glucose 134 H Calcium 9.7 Total Bilirubin 0.6 AST 58 H ALT 39 Alkaline Phosphatase 152 H Creatine Kinase 158 Creatine Kinase Index 0.6 CK-MB (CK-2) < 1.0 Troponin I < 0.02 Total Protein 8.4 H Albumin 3.5 Blood Type Antibody Screen 05/24/18 11:25 WBC RBC Hgb Hct MCV MCH MCHC RDW Plt Count MPV Absolute Neuts (auto) Neutrophils % Lymphocytes % Monocytes % Eosinophils % Basophils % Nucleated RBC % PT with INR INR Sodium Potassium Chloride Carbon Dioxide Anion Gap BUN Creatinine Creat Clearance w eGFR Random Glucose Calcium Total Bilirubin AST ALT Alkaline Phosphatase Creatine Kinase Creatine Kinase Index CK-MB (CK-2) Troponin I Total Protein Albumin Blood Type Cancelled Antibody Screen Cancelled ASSESSMENT/PLAN: The patient is a 63 yo F PMH of lupus, IDDM, asthma, COPD (3l home O2), HLD, seizure disorder, morbid obesity, and multiple admissions for COPD exacerbations presented referred from Dr Dykes (sap specialist) office for evaluation of AMS , possible seizure. Right upper extremity pain: -r/o cervical radiculopathy -the patient is complaining of pain in her arm radiating to neck, back and hand may suggest radiculopathy. She has arthrotis in other joints. Will obtain x rays of her joints -Ibuprophen for pain R/o seizure; -accordind to the pt she denies seizure but was observed as shaking in the doctor's office -will confrm with Dr Dykes -cont home medications -f/u neuro recommendations SLE -Continue home medications -consulted her Rheum from ED, will cot the dame meds, C3, C4 antycardiolipins ordered DMII with peripheral neuropathy: -ISS ACHS -BGM ACHS -levemir 20 u BID -hold PO meds leukocytosis; -at baseline, likely due to prednisone COPD; cont home medications -cont prednisone History of CHF Does not seem in exacerbation No changes to O2 requirements, Continue home dose Lasix 80mg PO qd HTN: -cont home meds -sodum restricted diet hyperlipidemia; -cont home meds Morbid obesity: -counseling FEN: Fluids: None; tolerating PO Electrolyte abnormalities: None currently Nutrition: Diabetic, sodium-controlled diet PPX: DVT -Heparin SQ Dispo; observation Problem List - Problem (1) Altered mental status Code(s): R41.82 - ALTERED MENTAL STATUS, UNSPECIFIED Qualifiers: Altered mental status type: transient alteration of awareness Qualified Code(s): R40.4 - Transient alteration of awareness (2) Seizure disorder Code(s): G40.909 - EPILEPSY, UNSP, NOT INTRACTABLE, WITHOUT STATUS EPILEPTICUS (3) Acute exacerbation of chronic obstructive pulmonary disease (COPD) Code(s): J44.1 - CHRONIC OBSTRUCTIVE PULMONARY DISEASE W (ACUTE) EXACERBATION (4) Acute on chronic respiratory failure with hypoxemia Code(s): J96.21 - ACUTE AND CHRONIC RESPIRATORY FAILURE WITH HYPOXIA (5) Body aches Code(s): R52 - PAIN, UNSPECIFIED (6) COPD exacerbation Code(s): J44.1 - CHRONIC OBSTRUCTIVE PULMONARY DISEASE W (ACUTE) EXACERBATION (7) Shortness of breath Code(s): R06.02 - SHORTNESS OF BREATH (8) Swelling of both lower extremities Code(s): M79.89 - OTHER SPECIFIED SOFT TISSUE DISORDERS (9) CAD (coronary artery disease) Code(s): I25.10 - ATHSCL HEART DISEASE OF [place] CORONARY ARTERY W/O ANG PCTRS (10) CHF (congestive heart failure) Code(s): I50.9 - HEART FAILURE, UNSPECIFIED Qualifiers: Heart failure type: other Qualified Code(s): I50.9 - Heart failure, unspecified (11) CKD (chronic kidney disease) stage 3, GFR 30-59 ml/min Code(s): N18.3 - CHRONIC KIDNEY DISEASE, STAGE 3 (MODERATE) (12) COPD (chronic obstructive pulmonary disease) Code(s): J44.9 - CHRONIC OBSTRUCTIVE PULMONARY DISEASE, UNSPECIFIED Qualifiers: COPD type: COPD with acute exacerbation Qualified Code(s): J44.1 - Chronic obstructive pulmonary disease with (acute) exacerbation (13) Diabetic peripheral neuropathy Code(s): E11.42 - TYPE 2 DIABETES MELLITUS WITH DIABETIC POLYNEUROPATHY (14) Hypertension Code(s): I10 - ESSENTIAL (PRIMARY) HYPERTENSION Qualifiers: Hypertension type: essential hypertension Qualified Code(s): I10 - Essential (primary) hypertension (15) Hypothyroidism Code(s): E03.9 - HYPOTHYROIDISM, UNSPECIFIED Qualifiers: Hypothyroidism type: unspecified Qualified Code(s): E03.9 - Hypothyroidism , unspecified (16) Morbid obesity Code(s): E66.01 - MORBID (SEVERE) OBESITY DUE TO EXCESS CALORIES (17) Numbness and tingling in left arm Code(s): R20.0 - ANESTHESIA OF SKIN; R20.2 - PARESTHESIA OF SKIN (18) SLE (systemic lupus erythematosus) Code(s): M32.9 - SYSTEMIC LUPUS ERYTHEMATOSUS, UNSPECIFIED (19) Sleep apnea, obstructive Code(s): G47.33 - OBSTRUCTIVE SLEEP APNEA (ADULT) (PEDIATRIC) (20) Type 2 diabetes mellitus Code(s): E11.9 - TYPE 2 DIABETES MELLITUS WITHOUT COMPLICATIONS Qualifiers: Diabetes mellitus terminal operations supervisor insulin use: without terminal operations supervisor use Diabetes mellitus complication status: with kidney complications Diabetes mellitus complication detail: with chronic kidney disease Chronic kidney disease stage : unspecified stage Qualified Code(s): E11.22 - Type 2 diabetes mellitus with diabetic chronic kidney disease (21) SOB (shortness of breath) Code(s): R06.02 - SHORTNESS OF BREATH Visit type - Emergency Visit Emergency Visit: Yes ED Registration Date: 05/24/18 Care time: The patient presented to the Emergency Department on the above date and was hospitalized for further evaluation of their emergent condition. - New Patient This patient is new to me today: No - Critical Care Critical Care patient: No
[2018-05-24 18:42] VITALS: BMI 46.9
--- NOTE | 2018-05-24 19:33 | CONSULT ---
Consult - text type - Consultation Consultation Note: NEUROLOGY CONSULTATION is greatly appreciated: This 63 yo RH woman with h/o HTN, DM is well-known to me over many years for seizure disorder, Migraine headaches and Severe Restless Limbs Syndrome (RLS). 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 Seizure-free since 2009. Last seen 12/08/17 when Tegretol; was D/C'ed and Topiramate increased to 200 mg q 12 hrs. Pain was controlled at that time on Pramipexole .25 q AM and .50 q HS. Over the last 3 mos pt has had progressive pain in both arms and legs, refractory to multiple therapies. On: albuterol, atorvastatin, glipizide, plaquenil, losartan, insulin, MTX, topiramate 150 BID, tegretol 100 BID, iron (325), ibuprofen 600 TID, pramipexole 0.5 BID, prednisone, sertraline, lasix, linzess. Pt reports few months of intermittent tremors in R hand. Daily headaches x 6 weeks. Admitted today after syncopal episode in doctor's office during blood draw. Pt had prodrome of "lightheadedness," "hot flushing," and "greying of vision." ANA LILIA: Obese. NEURO: Awake, alert. MS/Speech: Nl. CNII-CNXII: Nl. Motor: No drift. Min rest tremor on R. Nl strength. Min Cogwheel on R with reinforcement. Nl reflexes including AJ's. Toes downgoing. Coordination: No FTN dystaxia. Sensation: Nl. Romberg - Gait: Nl, sl waddle. Impression: 1. Essentially Normal Neurological Examination with mild extrapyramidal features on the right (new) 2. Migraine headaches (converted to chronic daily headache syndrome due to overuse of ibuprofen) 3. Severe Restless Limbs Syndrome (RLS) Plan: D/C Tegretol Increase topiramate 200 mg Q12H D/C Ibuprofen, cyclobenzaprine Increase pramipexole to 0.75mg BID x 2 days, then 1.0 mg BID Check Fe++, Iron, TIBC, Ferritin levels Thank you very much, Hugo Block MD
[2018-05-24] MEDS ORDERED: CYCLOBENZAPRINE HCL 5 MG TABLET PO SCH (20:00)
[2018-05-24] MEDS ORDERED: MORPHINE SULFATE 2 MG/ML VIAL IVPUSH ONE (20:55)
[2018-05-24] MEDS ORDERED: glipiZIDE 10 MG TABLET (FP) PO SCH (22:00)
[2018-05-24] MEDS ORDERED: INSULIN DETEMIR 20 UNIT SQ SCH (22:00)
[2018-05-24] MEDS ORDERED: LIDOCAINE PATCH REMOVAL MC SCH (22:00)
[2018-05-24] MEDS ORDERED: ATORVASTATIN CA 10 MG TABLET (FP) PO SCH (22:00)
[2018-05-24] MEDS ORDERED: PRAMIPEXOLE DIHYDROCHLORIDE 0.5 MG TABLET PO SCH (22:00)
[2018-05-24] MEDS ORDERED: carBAMazepine 100 MG TAB.CHEW PO SCH (22:00)
[2018-05-24 22:06] LABS: URINE APPEARANCE CLOUDY; URINE BACTERIA 4715.2 /hpf (NEGATIVE); URINE BILIRUBIN NEGATIVE (NEGATIVE); URINE CASTS 39 /hpf (0-8); URINE COLOR DK YELLOW; URINE GLUCOSE (UA) NEGATIVE (NEGATIVE); URINE KETONE TRACE (NEGATIVE); URINE LEUK ESTERASE 1+ (NEGATIVE); URINE NITRITE NEGATIVE (NEGATIVE); URINE PROTEIN NEGATIVE (NEGATIVE); URINE RBC 4 /hpf (0-4); URINE UROBILINOGEN 0.2 mg/dL (0.2-1.0); URINE WBC 24 /hpf (0-5)
[2018-05-24] MEDS: HYDROXYCHLOROQUINE SO4 200 MG TABLET (FP) PO SCH (22:38)
[2018-05-24] MEDS: BUDESONIDE/FORMETEROL FUMARATE 160/4.5 mcg INHALER IH SCH (22:38)
[2018-05-24] MEDS: TOPIRAMATE 200 MG TABLET (FP) PO SCH (22:38)
[2018-05-24] MEDS: INSULIN SLIDING SCALE (NOVOLOG) 1 VIAL SQ SCH (22:39)
[2018-05-24] MEDS: PRAMIPEXOLE DIHYDROCHLORIDE 0.25 MG TABLET PO SCH (22:39)
[2018-05-24 22:47] LABS: URINE CRYSTALS NONE SEEN /hpf
[2018-05-25 06:46] LABS: BASO % 0.2 % (0-2.0); EOS % 1.2 % (0-4.5); HEMATOCRIT 35.4 % (32.4-45.2); HEMOGLOBIN 11.6 GM/dL (10.7-15.3); LYMPH % 32.7 % (8-40); MCH 30.1 pg (25.7-33.7); MCHC 32.9 g/dl (32.0-36.0); MEAN CELL VOLUME 91.7 fl (80-96); MEAN PLT VOLUME 7.7 fl (7.5-11.1); MONO % 9.5 % (3.8-10.2); NEUT % 56.4 % (42.8-82.8); PLATELET COUNT 391 K/MM3 (134-434); RBC 3.86 M/mm3 (3.60-5.2); RDW 15.5 % (11.6-15.6); WHITE BLOOD COUNT 9.7 K/mm3 (4.0-10.0)
[2018-05-25] MEDS: PRAMIPEXOLE DIHYDROCHLORIDE 0.25 MG TABLET PO SCH ×2 (06:58→14:09)
[2018-05-25] MEDS: INSULIN SLIDING SCALE (NOVOLOG) 1 VIAL SQ SCH ×2 (06:59→12:27)
[2018-05-25] MEDS ORDERED: MORPHINE SULFATE 2 MG/ML VIAL IVPUSH ONE (07:00)
[2018-05-25] MEDS ORDERED: INSULIN (LEVEMIR) 100 UNITS/ML UNITS SQ SCH ×2 (07:00→22:00)
[2018-05-25] MEDS ORDERED: PATIENT'S OWN MEDICATION (NON-FORMULARY) (Umeclidinium Bromide [Incruse Ellipta] 62.5 MCG) IH SCH (07:00)
[2018-05-25] MEDS ORDERED: LEVOTHYROXINE NA 100 MCG TABLET (FP) PO SCH (07:00)
[2018-05-25] MEDS ORDERED: INSULIN (NOVOLOG) ASPART 100 UNITS/ML 10ML VIAL ONE (07:18)
[2018-05-25] MEDS ORDERED: INSULIN (LEVEMIR) 100 UNITS/ML UNITS SQ ONE (07:18)
[2018-05-25 07:27] LABS: ALK PHOS 128 U/L (45-117); ANION GAP 6 MMOL/L (8-16); BILIRUBIN,TOTAL 0.3 mg/dL (0.2-1); BLOOD UREA NITROGEN 24 mg/dL (7-18); CALCIUM 8.9 mg/dL (8.5-10.1); CHLORIDE 101 mmol/L (98-107); CO2 28 mmol/L (21-32); CREATININE 1.1 mg/dL (0.55-1.3); GLUCOSE,RANDOM 147 mg/dL (74-106); MAGNESIUM 2.1 mg/dL (1.8-2.4); PHOSPHOROUS 4.6 mg/dL (2.5-4.9); SGOT/AST 16 U/L (15-37); SGPT/ALT 29 U/L (13-61); SODIUM 135 mmol/L (136-145)
[2018-05-25] MEDS ORDERED: FERROUS SO4 325 MG TABLET (FP) PO SCH (10:00)
[2018-05-25] MEDS ORDERED: FOLIC ACID 1 MG TABLET (FP) PO SCH (10:00)
[2018-05-25] MEDS ORDERED: PATIENT'S OWN MEDICATION (NON-FORMULARY) (Furosemide [Lasix] 80 MG) PO SCH (10:00)
[2018-05-25] MEDS ORDERED: PATIENT'S OWN MEDICATION (NON-FORMULARY) (Linaclotide [Linzess] 145 MCG) PO SCH (10:00)
[2018-05-25] MEDS ORDERED: LOSARTAN POTASSIUM 50 MG TABLET (FP) PO SCH (10:00)
[2018-05-25] MEDS ORDERED: predniSONE 5 MG TABLET (UD) PO SCH (10:00)
[2018-05-25] MEDS ORDERED: SERTRALINE HCL 50 MG TABLET (FP) PO SCH (10:00)
[2018-05-25] MEDS ORDERED: PT OWN MED DRAWER 7, Y5N ONE ×2 (11:18→14:06)
[2018-05-25] MEDS: TOPIRAMATE 200 MG TABLET (FP) PO SCH (11:31)
[2018-05-25] MEDS: HYDROXYCHLOROQUINE SO4 200 MG TABLET (FP) PO SCH (11:31)
[2018-05-25] MEDS: BUDESONIDE/FORMETEROL FUMARATE 160/4.5 mcg INHALER IH SCH (11:32)
--- NOTE | 2018-05-25 12:05 | PN ---
Teaching Attending Note Name of Resident: Harriet Brink ATTENDING PHYSICIAN STATEMENT I saw and evaluated the patient. I reviewed the resident's note and discussed the case with the resident. I agree with the resident's findings and plan as documented with exceptions below. SUBJECTIVE: Patient seen and examined. Ambulating in room, moving arm, pain overall present but no new concerns or seizures. OBJECTIVE: Vital Signs Period Temp Pulse Resp BP Sys/Oconnell Pulse Ox Last 24 Hr 97.9 F-98.4 F 74-108 16-20 101-143/53-72 96-100 Intake & Output 05/22/18 05/23/18 05/24/18 05/25/18 23:59 23:59 23:59 23:59 Intake Total 1000 Balance 1000 Weight 256 lb 8 oz General: ambulating in room, no acute distress Musculoskeletal: no spinal tenderness, able toe elevate RUE upto 90 degrees, power 5/5 bilateral hands, unchanged sensory exam Abdomen:soft, obese, NT Extremities; no edema or tenderness Home Medications Medication Instructions Recorded Albuterol 0.083% Nebulizer Myriam 1 amp NEB PRN 10/24/17 [Ventolin 0.083% Nebulizer Soln -] Atorvastatin Ca [Lipitor] 10 mg PO HS 10/24/17 Folic Acid 1 mg PO DAILY 10/24/17 Glipizide 10 mg PO BID 10/24/17 Hydroxychloroquine So4 [Plaquenil 200 mg PO BID 10/24/17 -] Insulin Detemir [Levemir Flextouch] 20 unit SQ BID 10/24/17 Losartan Potassium 100 mg PO DAILY 10/24/17 Methotrexate Sodium [Trexall] 30 mg PO WEEKLY 10/24/17 Topiramate [Topiramate ER] 150 mg PO BID 10/24/17 Budesonide/Formeterol Fumarate 2 inh PO BID 05/01/18 [SYMBICORT 160/4.5mcg -] Carbamazepine [Tegretol -] 100 mg PO BID 05/01/18 Ferrous Sulfate [Iron] 325 mg PO DAILY 05/01/18 Ibuprofen [Motrin -] 600 mg PO TID PRN 05/01/18 Insulin Lispro [Humalog] 0 unit SQ TID 05/01/18 Levothyroxine [Synthroid -] 100 mcg PO CHATMAN 05/01/18 Montelukast Sodium [Singulair] 10 mg PO DAILY 05/01/18 Pramipexole Di-HCl [Mirapex] 0.5 mg PO BID 05/01/18 Prednisone 5 mg PO DAILY 05/01/18 Sertraline HCl [Zoloft] 100 mg PO DAILY 05/01/18 Umeclidinium [place] [Incruse 62.5 mcg IH AM 05/01/18 Ellipta] Furosemide [Lasix] 80 mg PO DAILY 05/24/18 Linaclotide [Linzess] 145 mcg PO DAILY 05/24/18 Active Medications Albuterol Sulfate (Ventolin 0.083% Nebulizer Soln -) 1 amp NEB Q4H PRN PRN Reason: SHORT OF BREATH/WHEEZING Atorvastatin Calcium (Lipitor -) 10 mg PO HS [facility] Last Admin: 05/24/18 22:38 Dose: 10 mg Budesonide/Formoterol Fumarate (Symbicort 160/4.5mcg -) 2 puff IH BID [facility] Last Admin: 05/25/18 11:32 Dose: 2 pfu Ferrous Sulfate (Feosol -) 325 mg PO DAILY [facility] Last Admin: 05/25/18 11:30 Dose: 325 mg Folic Acid (Folic Acid -) 1 mg PO DAILY [facility] Last Admin: 05/25/18 11:30 Dose: 1 mg Hydroxychloroquine Sulfate (Plaquenil -) 200 mg PO BID [facility] Last Admin: 05/25/18 11:31 Dose: 200 mg Insulin Aspart (Novolog Vial Sliding Scale -) 1 vial SQ [facility]; Protocol Last Admin: 05/25/18 06:59 Dose: Not Given Insulin Detemir (Levemir Vial) 20 units SQ BID@0700,2200 [facility] Last Admin: 05/25/18 06:58 Dose: 20 units Levothyroxine Sodium (Synthroid -) 100 mcg PO AM [facility] Last Admin: 05/25/18 06:58 Dose: 100 mcg Miscellaneous (Lidoderm Patch Removal) 1 each MC DAILY@2200 [facility] Last Admin: 05/24/18 21:32 Dose: 1 each Montelukast Sodium (Singulair -) 10 mg PO HS [facility] Non-Formulary Medication (Linaclotide [Linzess]) 145 mcg PO DAILY [facility] Non-Formulary Medication (Umeclidinium [place] [Incruse Ellipta]) 62.5 mcg IH AM [facility] Pramipexole Dihydrochloride (Mirapex -) 0.75 mg PO TID [facility] Last Admin: 05/25/18 06:58 Dose: 0.75 mg Prednisone (Deltasone -) 5 mg PO DAILY [facility] Last Admin: 05/25/18 11:30 Dose: 5 mg Sertraline HCl (Zoloft -) 100 mg PO DAILY [facility] Last Admin: 05/25/18 11:30 Dose: 100 mg Topiramate (Topamax -) 200 mg PO BID [facility] Last Admin: 05/25/18 11:31 Dose: 200 mg Laboratory Results - last 24 hr 05/24/18 05/24/18 05/24/18 11:25 11:25 11:25 WBC 13.8 H RBC 4.45 Hgb 13.5 Hct 40.8 MCV 91.6 MCH 30.2 MCHC 33.0 RDW 15.7 H Plt Count 487 H D MPV 8.0 Absolute Neuts (auto) 8.5 H Neutrophils % 61.6 Lymphocytes % 26.0 Monocytes % 10.7 H Eosinophils % 0.8 D Basophils % 0.9 Nucleated RBC % 0 PT with INR 13.80 H INR 1.17 H Sodium 136 Potassium 5.3 H Chloride 100 Carbon Dioxide 28 Anion Gap 8 BUN 21 H Creatinine 1.4 H Creat Clearance w eGFR 38.10 POC Glucometer Random Glucose 134 H Calcium 9.7 Phosphorus Magnesium Total Bilirubin 0.6 AST 58 H ALT 39 Alkaline Phosphatase 152 H Creatine Kinase 158 Creatine Kinase Index 0.6 CK-MB (CK-2) < 1.0 Troponin I < 0.02 Total Protein 8.4 H Albumin 3.5 Urine Color Urine Appearance Urine pH Ur Specific [place] Urine Protein Urine Glucose (UA) Urine Ketones Urine Blood Urine Nitrite Urine Bilirubin Urine Urobilinogen Ur Leukocyte Esterase Urine WBC (Auto) Urine RBC (Auto) Urine Casts (Auto) U Pathogenic Cast Auto U Epithel Cells (Auto) Urine Crystals (Auto) Urine Bacteria (Auto) Blood Type Antibody Screen 05/24/18 05/24/18 05/24/18 11:25 21:20 21:34 WBC RBC Hgb Hct MCV MCH MCHC RDW Plt Count MPV Absolute Neuts (auto) Neutrophils % Lymphocytes % Monocytes % Eosinophils % Basophils % Nucleated RBC % PT with INR INR Sodium Potassium Chloride Carbon Dioxide Anion Gap BUN Creatinine Creat Clearance w eGFR POC Glucometer 204 Random Glucose Calcium Phosphorus Magnesium Total Bilirubin AST ALT Alkaline Phosphatase Creatine Kinase Creatine Kinase Index CK-MB (CK-2) Troponin I Total Protein Albumin Urine Color Dk yellow Urine Appearance Cloudy Urine pH 5.0 Ur Specific [place] 1.030 Urine Protein Negative Urine Glucose (UA) Negative Urine Ketones Trace H Urine Blood Negative Urine Nitrite Negative Urine Bilirubin Negative Urine Urobilinogen 0.2 Ur Leukocyte Esterase 1+ H Urine WBC (Auto) 24 Urine RBC (Auto) 4 Urine Casts (Auto) 39 U Pathogenic Cast Auto Review A* U Epithel Cells (Auto) 3.0 Urine Crystals (Auto) None seen Urine Bacteria (Auto) 4715.2 Blood Type Cancelled Antibody Screen Cancelled 05/25/18 05/25/18 05/25/18 06:00 06:00 06:37 WBC 9.7 RBC 3.86 Hgb 11.6 Hct 35.4 MCV 91.7 MCH 30.1 MCHC 32.9 RDW 15.5 Plt Count 391 MPV 7.7 Absolute Neuts (auto) 5.5 Neutrophils % 56.4 Lymphocytes % 32.7 D Monocytes % 9.5 Eosinophils % 1.2 Basophils % 0.2 Nucleated RBC % 0 PT with INR INR Sodium 135 L Potassium 4.0 Chloride 101 Carbon Dioxide 28 Anion Gap 6 L BUN 24 H Creatinine 1.1 Creat Clearance w eGFR 50.33 POC Glucometer 138 Random Glucose 147 H Calcium 8.9 Phosphorus 4.6 Magnesium 2.1 Total Bilirubin 0.3 AST 16 ALT 29 Alkaline Phosphatase 128 H Creatine Kinase Creatine Kinase Index CK-MB (CK-2) Troponin I Total Protein 7.0 Albumin 3.0 L Urine Color Urine Appearance Urine pH Ur Specific [place] Urine Protein Urine Glucose (UA) Urine Ketones Urine Blood Urine Nitrite Urine Bilirubin Urine Urobilinogen Ur Leukocyte Esterase Urine WBC (Auto) Urine RBC (Auto) Urine Casts (Auto) U Pathogenic Cast Auto U Epithel Cells (Auto) Urine Crystals (Auto) Urine Bacteria (Auto) Blood Type Antibody Screen C_spine/T-spine and Right shoulder xray results reviewed ASSESSMENT AND PLAN: 63 yof with PMHx lupus, IDDM, asthma, COPD (3l home O2),HTN, HLD, seizure disorder, morbid obesity, DANY on CPAP and multiple admissions for COPD exacerbations admitted with reported seizure and RUE pain -Reported seizure -RUE pain, suspected cervical radiculopathy, r/o SLE flare -Dehydration -CKD stage II -IDDM -SLE -COPD on 3L home oxygen -HTN -HLD -Seizure disorder -Morbid obesity -DANY on CPAP Plan: symptoms improved, ambulating able to use arm. No concerns for seizures. Neurology input noted. Xrays noted. PT eval. Immunology results pending. Plan for home dc after PT eval with follow up with Dr. Cannon for results and further management. Discussed with patient and nursing, all questions answered.
--- NOTE | 2018-05-25 13:06 | DS ---
Physical Exam: SUBJECTIVE: Patient seen and examined, feeling good. OBJECTIVE: Vital Signs Period Temp Pulse Resp BP Sys/Oconnell Pulse Ox Last 24 Hr 97.9 F-98.4 F 74-108 16-20 101-143/53-72 96-100 PHYSICAL EXAM GENERAL: The patient is awake, alert, and fully oriented, in no acute distress. HEAD: Normal with no signs of trauma. EYES: PERRL, extraocular movements intact, conjunctiva clear. ENT: Oropharynx clear without exudates, moist mucous membranes. NECK: Trachea midline, full range of motion, supple. LUNGS: Breath sounds equal, clear to auscultation bilaterally, no wheezes, no crackles, no accessory muscle use. HEART: Regular rate and rhythm, S1, S2 without murmur, rub or gallop. ABDOMEN: Obese, soft, nontender, nondistended, normoactive bowel sounds, no guarding, no rebound. NEUROLOGICAL: Non focal. Normal speech, gait not observed. PSYCH: Normal mood, normal affect. SKIN: Warm, dry, normal turgor, no rashes. LABS Laboratory Results - last 24 hr 05/24/18 05/24/18 05/24/18 11:25 21:20 21:34 WBC RBC Hgb Hct MCV MCH MCHC RDW Plt Count MPV Absolute Neuts (auto) Neutrophils % Lymphocytes % Monocytes % Eosinophils % Basophils % Nucleated RBC % Sodium Potassium Chloride Carbon Dioxide Anion Gap BUN Creatinine Creat Clearance w eGFR POC Glucometer 204 Random Glucose Calcium Phosphorus Magnesium Total Bilirubin AST ALT Alkaline Phosphatase Creatine Kinase Index 0.6 CK-MB (CK-2) < 1.0 Total Protein Albumin Urine Color Dk yellow Urine Appearance Cloudy Urine pH 5.0 Ur Specific [place] 1.030 Urine Protein Negative Urine Glucose (UA) Negative Urine Ketones Trace H Urine Blood Negative Urine Nitrite Negative Urine Bilirubin Negative Urine Urobilinogen 0.2 Ur Leukocyte Esterase 1+ H Urine WBC (Auto) 24 Urine RBC (Auto) 4 Urine Casts (Auto) 39 U Pathogenic Cast Auto Review A* U Epithel Cells (Auto) 3.0 Urine Crystals (Auto) None seen Urine Bacteria (Auto) 4715.2 05/25/18 05/25/18 05/25/18 06:00 06:00 06:37 WBC 9.7 RBC 3.86 Hgb 11.6 Hct 35.4 MCV 91.7 MCH 30.1 MCHC 32.9 RDW 15.5 Plt Count 391 MPV 7.7 Absolute Neuts (auto) 5.5 Neutrophils % 56.4 Lymphocytes % 32.7 D Monocytes % 9.5 Eosinophils % 1.2 Basophils % 0.2 Nucleated RBC % 0 Sodium 135 L Potassium 4.0 Chloride 101 Carbon Dioxide 28 Anion Gap 6 L BUN 24 H Creatinine 1.1 Creat Clearance w eGFR 50.33 POC Glucometer 138 Random Glucose 147 H Calcium 8.9 Phosphorus 4.6 Magnesium 2.1 Total Bilirubin 0.3 AST 16 ALT 29 Alkaline Phosphatase 128 H Creatine Kinase Index CK-MB (CK-2) Total Protein 7.0 Albumin 3.0 L Urine Color Urine Appearance Urine pH Ur Specific [place] Urine Protein Urine Glucose (UA) Urine Ketones Urine Blood Urine Nitrite Urine Bilirubin Urine Urobilinogen Ur Leukocyte Esterase Urine WBC (Auto) Urine RBC (Auto) Urine Casts (Auto) U Pathogenic Cast Auto U Epithel Cells (Auto) Urine Crystals (Auto) Urine Bacteria (Auto) 05/25/18 12:26 WBC RBC Hgb Hct MCV MCH MCHC RDW Plt Count MPV Absolute Neuts (auto) Neutrophils % Lymphocytes % Monocytes % Eosinophils % Basophils % Nucleated RBC % Sodium Potassium Chloride Carbon Dioxide Anion Gap BUN Creatinine Creat Clearance w eGFR POC Glucometer 108 Random Glucose Calcium Phosphorus Magnesium Total Bilirubin AST ALT Alkaline Phosphatase Creatine Kinase Index CK-MB (CK-2) Total Protein Albumin Urine Color Urine Appearance Urine pH Ur Specific [place] Urine Protein Urine Glucose (UA) Urine Ketones Urine Blood Urine Nitrite Urine Bilirubin Urine Urobilinogen Ur Leukocyte Esterase Urine WBC (Auto) Urine RBC (Auto) Urine Casts (Auto) U Pathogenic Cast Auto U Epithel Cells (Auto) Urine Crystals (Auto) Urine Bacteria (Auto) HOSPITAL COURSE: The patient is a 63 yo F PMH of lupus, IDDM, asthma, COPD (3l home O2), HLD, seizure disorder, morbid obesity, and multiple admissions for COPD exacerbations presented referred from Dr Dykes (bellhop captain) office for evaluation of AMS, possible seizure. The patient is complaining of generalized joint pain for a month and fatigue. She has been staying in bed for that time. The patient also reports right upper extremity pain, radiating to the right side on her neck and down to her right hand, numbness, tingling in upper extremities as well as in her legs. She tried Ibuprophen without improvement. The patient visited her [employer] Dr Cannon about month ago and was told that her lupus is stable, no medications were changed. She also saw her Neurologist Dr Block 2 months ago, no medications changed, per patient "last seizure was years ago". Pt denies any fever, chills, abd pain, n/d, urinary sxs , recent travel, blood in stools, sick contacts. She was admitted to r/o seizure , right upper extremity pain, r.o cervical radiculopathy. Over the course of the hospitalization she had imaging studies done that were negative, Neurology was consulted. Shew was given recommendations to increase topiramate 200 mg Q12H, dc Ibuprofen, cyclobenzaprine, increase pramipexole to 0.75mg BID x 2 days, then 1.0 mg BID. Her arm pain was controlled, no seizures reported. She walked with physical therapy. She clinically improved and was discharged home. Date of Admission:05/24/18 Date of Discharge: 05/25/18 Minutes to complete discharge: 30 Discharge Summary Reason For Visit: SYSTEMIC LUPUS ERYTHETOSUS,SEIZURE DISORDER Current Active Problems Altered mental status (Acute) Seizure disorder (Chronic) Condition: Stable - Instructions Diet, Activity, Other Instructions: Ms Montoya, you were admitted for your right arm pain and to rule out seizures. MEDICATIONS: You were seen by Dr. Block and advised following medication changes: Stop Tegretol Topiramate increased to 200 mg twice daily Pramipexole 0.75 mg twice daily for 2 days, then 1 mg twice daily till further directed by Dr. Block Stop ibuprofen. Please continue to take Tylenol when needed for your joint pain. Continue other home medications as before. You are advised to continue with home oxygen with ambulation, activity and sleep and follow up with primary care doctor and [employer]. DIET/ACTIVITY INSTRUCTIONS: Please monitor your blood sugars at home, at least twice a day. Home oxygen with when needed. No driving, operating heavy machinery or being alone on heights or with children. FOLLOW UP: Your blood tests for lupus have been sent results are currently pending ( Complement C3 and C4 levels, Anti-ds DNA antibodies, anti-cardiolipin antibodies ). Please follow up with Dr. Cannon in 1 week for results and further plan. With your primary care doctor in 1-2 weeks With [employer] in 1- 2 weeks. See in 1-2 weeks. If you have seizures, dizziness, chest pain, palpitations, dizziness, fevers, chills, trouble breathing or worsening of any of your symptoms, please call 911 or come back to emergency room Referrals: Goran Hernandez MD [Primary Care Provider] - Hugo Block MD [Staff Physician] - 1 Week Rubina Cannon MD [Staff Physician] - 1 Week Disposition: VNS/HOME HEALTH CARE - Home Medications Comprehensive Discharge Medication List: Ambulatory Orders Albuterol 0.083% Nebulizer Myriam [Ventolin 0.083% Nebulizer Soln -] 1 amp NEB PRN 10/24/17 Atorvastatin Ca [Lipitor] 10 mg PO HS 10/24/17 Folic Acid 1 mg PO DAILY 10/24/17 Glipizide 10 mg PO BID 10/24/17 Hydroxychloroquine So4 [Plaquenil -] 200 mg PO BID 10/24/17 Insulin Detemir [Levemir Flextouch] 20 unit SQ BID 10/24/17 Losartan Potassium 100 mg PO DAILY 10/24/17 Methotrexate Sodium [Trexall] 30 mg PO WEEKLY 10/24/17 Topiramate [Topiramate ER] 150 mg PO BID 10/24/17 Budesonide/Formeterol Fumarate [SYMBICORT 160/4.5mcg -] 2 inh PO BID 05/01/18 Carbamazepine [Tegretol -] 100 mg PO BID 05/01/18 Ferrous Sulfate [Iron] 325 mg PO DAILY 05/01/18 Insulin Lispro [Humalog] 0 unit SQ TID 05/01/18 Levothyroxine [Synthroid -] 100 mcg PO CHATMAN 05/01/18 Montelukast Sodium [Singulair] 10 mg PO DAILY 05/01/18 Prednisone 5 mg PO DAILY 05/01/18 Sertraline HCl [Zoloft] 100 mg PO DAILY 05/01/18 Umeclidinium [place] [Incruse Ellipta] 62.5 mcg IH AM 05/01/18 Furosemide [Lasix] 80 mg PO DAILY 05/24/18 Linaclotide [Linzess] 145 mcg PO DAILY 05/24/18 Pramipexole Dihydrochloride [Mirapex -] 1 mg PO TID #90 tablet 05/25/18 Problem List - Problems (1) Altered mental status Code(s): R41.82 - ALTERED MENTAL STATUS, UNSPECIFIED Qualifiers: Altered mental status type: transient alteration of awareness Qualified Code(s): R40.4 - Transient alteration of awareness (2) Seizure disorder Code(s): G40.909 - EPILEPSY, UNSP, NOT INTRACTABLE, WITHOUT STATUS EPILEPTICUS (3) Acute exacerbation of chronic obstructive pulmonary disease (COPD) Code(s): J44.1 - CHRONIC OBSTRUCTIVE PULMONARY DISEASE W (ACUTE) EXACERBATION (4) Acute on chronic respiratory failure with hypoxemia Code(s): J96.21 - ACUTE AND CHRONIC RESPIRATORY FAILURE WITH HYPOXIA (5) Body aches Code(s): R52 - PAIN, UNSPECIFIED (6) COPD exacerbation Code(s): J44.1 - CHRONIC OBSTRUCTIVE PULMONARY DISEASE W (ACUTE) EXACERBATION (7) Shortness of breath Code(s): R06.02 - SHORTNESS OF BREATH (8) Swelling of both lower extremities Code(s): M79.89 - OTHER SPECIFIED SOFT TISSUE DISORDERS (9) CAD (coronary artery disease) Code(s): I25.10 - ATHSCL HEART DISEASE OF [place] CORONARY ARTERY W/O ANG PCTRS (10) CHF (congestive heart failure) Code(s): I50.9 - HEART FAILURE, UNSPECIFIED Qualifiers: Heart failure type: other Qualified Code(s): I50.9 - Heart failure, unspecified (11) CKD (chronic kidney disease) stage 3, GFR 30-59 ml/min Code(s): N18.3 - CHRONIC KIDNEY DISEASE, STAGE 3 (MODERATE) (12) COPD (chronic obstructive pulmonary disease) Code(s): J44.9 - CHRONIC OBSTRUCTIVE PULMONARY DISEASE, UNSPECIFIED Qualifiers: COPD type: COPD with acute exacerbation Qualified Code(s): J44.1 - Chronic obstructive pulmonary disease with (acute) exacerbation (13) Diabetic peripheral neuropathy Code(s): E11.42 - TYPE 2 DIABETES MELLITUS WITH DIABETIC POLYNEUROPATHY (14) Hypertension Code(s): I10 - ESSENTIAL (PRIMARY) HYPERTENSION Qualifiers: Hypertension type: essential hypertension Qualified Code(s): I10 - Essential (primary) hypertension (15) Hypothyroidism Code(s): E03.9 - HYPOTHYROIDISM, UNSPECIFIED Qualifiers: Hypothyroidism type: unspecified Qualified Code(s): E03.9 - Hypothyroidism , unspecified (16) Morbid obesity Code(s): E66.01 - MORBID (SEVERE) OBESITY DUE TO EXCESS CALORIES (17) Numbness and tingling in left arm Code(s): R20.0 - ANESTHESIA OF SKIN; R20.2 - PARESTHESIA OF SKIN (18) SLE (systemic lupus erythematosus) Code(s): M32.9 - SYSTEMIC LUPUS ERYTHEMATOSUS, UNSPECIFIED (19) Sleep apnea, obstructive Code(s): G47.33 - OBSTRUCTIVE SLEEP APNEA (ADULT) (PEDIATRIC) (20) Type 2 diabetes mellitus Code(s): E11.9 - TYPE 2 DIABETES MELLITUS WITHOUT COMPLICATIONS Qualifiers: Diabetes mellitus senior living insulin use: without senior living use Diabetes mellitus complication status: with kidney complications Diabetes mellitus complication detail: with chronic kidney disease Chronic kidney disease stage : unspecified stage Qualified Code(s): E11.22 - Type 2 diabetes mellitus with diabetic chronic kidney disease (21) SOB (shortness of breath) Code(s): R06.02 - SHORTNESS OF BREATH This patient is new to me today: No Emergency Visit: Yes ED Registration Date: 05/24/18 Care time: The patient presented to the Emergency Department on the above date and was hospitalized for further evaluation of their emergent condition. Critical Care patient: No - Discharge Referral Referred to [facility] Med P.C.: No
[2018-05-25 14:46] VITALS: BP 117/47; PULSE 88; TEMP 98.8
[2018-05-25] MEDS ORDERED: MONTELUKAST NA 10 MG TABLET PO SCH (22:00)
[2018-05-27 04:12] LABS: SERUM IRON SATURATION 11 % (15-55); TOTAL IRON BINDING CAPACITY 265 ug/dL (250-450); UIBC 237 ug/dL (118-369)
== END 2018-05-25 18:04 | disposition home health service (06) ==
LOC: JER 10:53 → JERBED 13:01 → INTOOBSV 13:01 → J5S 17:35
PROVIDERS: ADMIT Hospitalist; ATTEND Hospitalist
PROC: 3E033NZ Introduction of Analgesics, Hypnotics, Sedatives into Peripheral Vein, Percutaneous Approach (ICD-10-PCS; principal; 2018-05-24)
PROC: 3E0337Z Introduction of Electrolytic and Water Balance Substance into Peripheral Vein, Percutaneous Approach (ICD-10-PCS; 2018-05-24)
PROC: 3E013VG Introduction of Insulin into Subcutaneous Tissue, Percutaneous Approach (ICD-10-PCS; 2018-05-24)
DX: G40.909 Epilepsy, unspecified, not intractable, without status epilepticus (principal); R40.4 Transient alteration of awareness; I11.0 Hypertensive heart disease with heart failure; E11.42 Type 2 diabetes mellitus with diabetic polyneuropathy; E11.22 Type 2 diabetes mellitus with diabetic chronic kidney disease; I12.9 Hypertensive chronic kidney disease with stage 1 through stage 4 chronic kidney disease, or unspecified chronic kidney disease; I25.10 Atherosclerotic heart disease of native coronary artery without angina pectoris; N18.2 Chronic kidney disease, stage 2 (mild); E78.5 Hyperlipidemia, unspecified; E66.01 Morbid (severe) obesity due to excess calories; I50.32 Chronic diastolic (congestive) heart failure; J44.9 Chronic obstructive pulmonary disease, unspecified; M32.9 Systemic lupus erythematosus, unspecified; K21.9 Gastro-esophageal reflux disease without esophagitis; G47.33 Obstructive sleep apnea (adult) (pediatric); G25.81 Restless legs syndrome; Z79.4 Long term (current) use of insulin; E86.0 Dehydration; G43.909 Migraine, unspecified, not intractable, without status migrainosus; M79.603 Pain in arm, unspecified; Z87.891 Personal history of nicotine dependence; Z96.643 Presence of artificial hip joint, bilateral; Z96.653 Presence of artificial knee joint, bilateral; Z98.84 Bariatric surgery status; Z88.0 Allergy status to penicillin; Z88.8 Allergy status to other drugs, medicaments and biological substances; Z90.710 Acquired absence of both cervix and uterus; Z68.42 Body mass index [BMI] 45.0-49.9, adult; Z99.89 Dependence on other enabling machines and devices
CPT/HCPCS: 36415; 70450-TC; 71045-TC-FY; 72050-TC-FY; 72070-TC-FY; 73030-TC-RT-FY; 80053; 81003; 82550; 82553; 82962; 83540; 83550; 83735; 84100; 84484; 85025; 85610; 86160; 86225; 87086; 87186; 93005; 93010; 96361; 96372; 96374; 96375; 96376; 97116-GP; 97161-GP; 99285-25; G0378; J0131; J7030; J8610

== ENCOUNTER 2018-06-02 08:14 | Observation (INO) | payer OTHER, MEDICARE ==
--- NOTE | 2018-06-02 08:22 | PDOC ---
History of Present Illness <Ceferino Ng - Last Filed: 06/02/18 11:41> - General History Source: Patient - History of Present Illness Initial Comments: 06/02/18 09:32 The patient is a 63 year old female with a PMH of COPD (on 2L O2 @ home), CHF, SLE, IDDM and HTN who was BIBEMS for weakness, shortness of breath and chest tightness/pleuritic chest pain. Symptoms present for 1 month and worsening. States she only gets out bed to go to the bathroom and eat with significant MYERS. Recent evaluation in our ED earlier this month for pain likely 2/2 to patient's SLE. Allergy: as per EMR Surgical: Cholecystectomy, Gastric Band, Hip Replacement, Knee Replacement At presentation patient's HR in SVT with HR 200's <Julia Suh - Last Filed: 06/02/18 18:29> - General Stated Complaint: COPD Time Seen by Provider: 06/02/18 08:21 Past History <Ceferino Ng - Last Filed: 06/02/18 11:41> - Past Medical History Anemia: No Asthma: Yes Cancer: No Cardiac Disorders: Yes (CAD) CVA: No COPD: Yes (uses 02 at 3l nasal cannula) CHF: No DVT: No Dementia: No Diabetes: Yes GI Disorders: Yes (REFLUX) Disorders: No HTN: Yes Hypercholesterolemia: Yes Liver Disease: No Seizures: Yes (NO RECENT [id number]) Thyroid Disease: Yes (HYPO) - Surgical History Abdominal Surgery: Yes (lapband) Appendectomy: No Cardiac Surgery: No Cholecystectomy: Yes GI Surgery: Yes (LAP sx 11/23/16) Lung Surgery: No Neurologic Surgery: No Orthopedic Surgery: Yes (BILAT HIP REPLACEMENT/BILAT KNEE SX) - Immunization History Immunization Up to Date: Yes - Suicide/Smoking/Psychosocial Hx Smoking Status: Yes Smoking History: Former smoker Have you smoked in the past 12 months: No Number of Cigarettes Smoked Daily: 10 If you are a former smoker, when did you quit?: 22 yrs ago Cigars Per Day: 0 Hx Alcohol Use: No Drug/Substance Use Hx: No Substance Use Type: None Hx Substance Use Treatment: No <Julia Suh - Last Filed: 06/02/18 18:29> - Past Medical History Allergies/Adverse Reactions: Allergies Allergy/AdvReac Type Severity Reaction Status Date / Time gabapentin [From Neurontin] Allergy PALPITATIONS, Verified 06/02/18 09:28 PASSES OUT Penicillins Allergy TONGUE Verified 06/02/18 09:28 Swelling phenytoin sodium Allergy diarrhea/vo Verified 06/02/18 09:28 [From Dilantin] miting phenytoin sodium extended Allergy Verified 06/02/18 09:28 [From Dilantin] theophylline [Theophylline] Allergy diarrhea,SE Verified 06/02/18 09:28 IZURES fresh garlic Allergy Uncoded 06/02/18 09:28 Home Medications: Ambulatory Orders Albuterol 0.083% Nebulizer Myriam [Ventolin 0.083% Nebulizer Soln -] 1 amp NEB PRN 10/24/17 Atorvastatin Ca [Lipitor] 10 mg PO HS 10/24/17 Folic Acid 1 mg PO DAILY 10/24/17 Glipizide 10 mg PO BID 10/24/17 Hydroxychloroquine So4 [Plaquenil -] 200 mg PO BID 10/24/17 Insulin Detemir [Levemir Flextouch] 20 unit SQ BID 10/24/17 Losartan Potassium 100 mg PO DAILY 10/24/17 Methotrexate Sodium [Trexall] 30 mg PO WEEKLY 10/24/17 Budesonide/Formeterol Fumarate [SYMBICORT 160/4.5mcg -] 2 inh PO BID 05/01/18 Ferrous Sulfate [Iron] 325 mg PO DAILY 05/01/18 Insulin Lispro [Humalog] 0 unit SQ TID 05/01/18 Levothyroxine [Synthroid -] 100 mcg PO CHATMAN 05/01/18 Montelukast Sodium [Singulair] 10 mg PO DAILY 05/01/18 Prednisone 5 mg PO DAILY 05/01/18 Sertraline HCl [Zoloft] 100 mg PO DAILY 05/01/18 Umeclidinium [place] [Incruse Ellipta] 62.5 mcg IH AM 05/01/18 Furosemide [Lasix] 80 mg PO DAILY 05/24/18 Linaclotide [Linzess] 145 mcg PO DAILY 05/24/18 Pramipexole Dihydrochloride [Mirapex -] 0.25 mg PO ASDIR #60 tablet 05/25/18 Topiramate [Topamax -] 200 mg PO BID #60 tablet 05/25/18 Albuterol Sulfate [Proair Hfa] 8.5 gm IH PRN PRN 06/02/18 Cholecalciferol (Vitamin D3) [Vitamin D3 -] 2,000 unit PO DAILY 06/02/18 Cyclobenzaprine HCl 7.5 mg PO PRN PRN 06/02/18 Review of Systems - Review of Systems Constitutional: No: Chills, Fever HEENTM: No: Recent change in vision Respiratory: Yes: Shortness of Breath Cardiac (ROS): Yes: Lightheadedness, Chest Tightness ABD/GI: No: Constipated, Diarrhea, Nausea, Vomiting <Julia Suh - Last Filed: 06/02/18 18:29> *Physical Exam - Vital Signs Last Vital Signs Temp Pulse Resp BP Pulse Ox 98 F 100 H 22 H 107/82 97 06/02/18 08:37 06/02/18 11:34 06/02/18 11:34 06/02/18 11:34 06/02/18 11:34 <Ceferino Ng - Last Filed: 06/02/18 11:41> - Physical Exam General Appearance: Yes: Nourished, Obese HEENT: positive: Normal Voice, Hearing Grossly Normal Neck: positive: Trachea midline, Supple Respiratory/Chest: positive: Lungs Clear, Normal Breath Sounds. negative: Labored Respiration, Crackles Cardiovascular: positive: S1, S2. negative: Edema, JVD Vascular Pulses: Femoral (R): 2+, Femoral (L): 2+ Musculoskeletal: negative: CVA Tenderness (R), CVA Tenderness (L) Extremity: positive: Normal Capillary Refill, Normal Inspection Integumentary: positive: Normal Color, Dry, Warm Neurologic: positive: Fully Oriented, Alert <Julia Suh - Last Filed: 06/02/18 18:29> ED Treatment Course - LABORATORY CBC & Chemistry Diagram: 06/02/18 09:14 06/02/18 09:14 - ADDITIONAL ORDERS Additional order review: Laboratory Results 06/02/18 06/02/18 06/02/18 09:20 09:14 08:45 PT with INR 12.50 INR 1.06 Sodium 144 Potassium 3.7 Chloride 110 H Carbon Dioxide 25 Anion Gap 9 BUN 17 Creatinine 1.1 Creat Clearance w eGFR 50.33 POC Glucometer 88 Random Glucose 78 Calcium 9.5 Total Bilirubin 0.2 AST 23 ALT 30 Alkaline Phosphatase 121 H Creatine Kinase 116 Troponin I 0.03 B-Natriuretic Peptide 235.1 H Total Protein 7.5 Albumin 3.4 06/02/18 06/02/18 09:14 08:45 RBC 4.07 MCV 92.1 MCHC 32.5 RDW 15.3 MPV 8.1 Neutrophils % 49.4 Lymphocytes % 44.1 H D Monocytes % 4.8 Eosinophils % 0.5 Basophils % 1.2 D POC Glucometer 88 - Medications Given in the ED: ED Medications Discontinued Medications Generic Name Dose Route Start Last Admin Trade Name Freq PRN Reason Stop Dose Admin Adenosine 6 mg 06/02/18 08:58 06/02/18 09:17 Adenocard - IVPUSH 06/02/18 08:59 6 mg ONCE ONE Administration <Ceferino Ng - Last Filed: 06/02/18 11:41> - LABORATORY CBC & Chemistry Diagram: 06/02/18 09:14 06/02/18 09:14 <Julia Suh - Last Filed: 06/02/18 18:29> Medical Decision Making - Medical Decision Making 06/02/18 09:34 63 year old female tachycardic (190's-200's) @ presentation. EKG showed SVT ( HR 200's) SVT broke s/p Adenosine (6 mg) with repeat EKG showing sinus tachycardia 06/02/18 10:02 Troponin (-) x1 CBC, CMP unremarkable 06/02/18 10:11 Patient reassessed @ bedside VSS (HR 105-106) States chest tightness, dyspnea improved 06/02/18 10:[address] Laboy 06/02/18 12:[address] Mckeon @ bedside - requests CTA to r/o PE + NIXON Call received from CT scan - GFR of 50, will give patient oral hydration post CTA Attending signed out patient to Dr. Brigitte Odom for further evaluation including CTA, NIXON <Julia Suh - Last Filed: 06/02/18 18:29> *DC/Admit/Observation/Transfer - Discharge Dispostion Decision to Admit order: Yes <Ceferino Ng - Last Filed: 06/02/18 11:41> <Julia Suh - Last Filed: 06/02/18 18:29> Diagnosis at time of Disposition: SVT (supraventricular tachycardia) - Discharge Dispostion Condition at time of disposition: Guarded
[2018-06-02] MEDS ORDERED: ADENOSINE 6 MG/2 ML VIAL IVPUSH ONE ×2 (08:58→09:04)
--- NOTE | 2018-06-02 08:59 | PDOC ---
Attending Attestation - Resident Resident Name: Julia Suh - ED Attending Attestation I have performed the following: I have examined & evaluated the patient, The case was reviewed & discussed with the resident, I agree w/resident's findings & plan, Exceptions are as noted - HPI HPI: 06/02/18 09:20 63y F hx of CHF, COPD (on 2L at home), SLE, DM, HTN, presents with sob. Pt checked her 02 this morning and noticed her HR was in the 160-s. Upon arrival the pts HR was noted at rates up to 200. Pt endorses some chest pain/ sob/ lightheaded. On her EKG it appears to be SVT upon arrival bp slightly hypotensive at 90/60s and pt is diapohretic. Pt was a difficult line, requiring US guided line placed by myself. The patient was given 6mg of adenosine with improvement of her HR from 198-200 to 110s (sinus tach) PMD: [place] PMH: see hpi PSH: cholecystectomy, gastric band, hip replacement, knee replacement Meds: Plaquinil, see med rec Allergies: PCN, Gabapentin, Dilantin Social: denies - Physicial Exam PE: 06/02/18 09:32 GENERAL: The patient is awake, alert, and fully oriented, Nontoxic - in no acute distress, diaphoretic HEAD: Normocephalic, atraumatic. EYES: extraocular movements intact, sclera anicteric, conjunctiva clear. ENT: Normal voice, Moist mucous membranes. NECK: Normal range of motion, supple LUNGS: Breath sounds equal, scant wheezing, no rales apppreciated HEART: tachycardic HR ABDOMEN: Soft, nontender, obese abdomen No guarding, no rebound. . No CVA tenderness EXTREMITIES: Normal range of motion, trace edema. no calf tenderness NEUROLOGICAL: No facial assymetry, Normal speech, PSYCH: Normal mood, normal affect. SKIN: Warm, Dry, normal turgor - Critical Care Time Total Critical Care Time: 45 Critical Care Statement: The care of this patient involved high complexity decision making to prevent further life threatening deterioration of the patient 's condition and/or to evaluate & treat vital organ system(s) failure or risk of failure. - Medical Decision Making 06/02/18 14:20 pt has been reassessed and has been stable on tele monitor. no furthe rsigns of arrythmia case dw with cardiology labs reviewed requests echo pt lost her line prior to CT, requiring multiple attempts to place line using ultrasound guidance Heart Score/ECG Review - ECG Impressions Comment:: 06/02/18 10:19 Twelve-lead EKG was performed and reviewed by me. original ekg performed at 8:45am Rate of 198 tachycardic, narrow QRS, no P waves appreciated impression: SVT repeat ekg performed at 9:08am There is normal sinus rhythm, rate of [address] changes sggestive of acute ischemia imp: sinus tach
[2018-06-02 09:29] LABS: BASO % 1.2 % (0-2.0); EOS % 0.5 % (0-4.5); HEMATOCRIT 37.5 % (32.4-45.2); HEMOGLOBIN 12.2 GM/dL (10.7-15.3); LYMPH % 44.1 % (8-40); MCHC 32.5 g/dl (32.0-36.0); MEAN CELL VOLUME 92.1 fl (80-96); MEAN PLT VOLUME 8.1 fl (7.5-11.1); MONO % 4.8 % (3.8-10.2); NEUT % 49.4 % (42.8-82.8); PLATELET COUNT 398 K/MM3 (134-434); RBC 4.07 M/mm3 (3.60-5.2); RDW 15.3 % (11.6-15.6); WHITE BLOOD COUNT 8.5 K/mm3 (4.0-10.0)
[2018-06-02 09:48] LABS: INR 1.06 (0.83-1.09); PROTHROMBIN TIME (PATIENT) 12.5 SEC (9.7-13.0)
[2018-06-02 09:58] LABS: ALBUMIN 3.4 g/dl (3.4-5.0); ALK PHOS 121 U/L (45-117); ANION GAP 9 MMOL/L (8-16); BILIRUBIN,TOTAL 0.2 mg/dL (0.2-1); BLOOD UREA NITROGEN 17 mg/dL (7-18); CALCIUM 9.5 mg/dL (8.5-10.1); CHLORIDE 110 mmol/L (98-107); CO2 25 mmol/L (21-32); CREATININE 1.1 mg/dL (0.55-1.3); GLUCOSE,RANDOM 78 mg/dL (74-106); N-TERMINAL BNP 235.1 pg/ml (5-125); POTASSIUM 3.7 mmol/L (3.5-5.1); SGOT/AST 23 U/L (15-37); SGPT/ALT 30 U/L (13-61); SODIUM 144 mmol/L (136-145); TOT PROT 7.5 g/dl (6.4-8.2)
--- NOTE | 2018-06-02 11:27 | CON.CARD ---
Consult Consult Specialty:: Cardiology Referred by:: Dr. Ng Reason for Consultation:: PSVT and MYERS - History of Present Illness Chief Complaint: Chest pain, SOB, syncope History of Present Illness: 63F DM, obesity, SLE, HTN, Seizure disorder presents to ER with increased SOB, pleuritic CP found to be in rapid narrow complex SVT that broke with 6mg adenosine. She reports one week of increased MYERS and exertional fatigue accompanied by pleuritic CP and dry cough. Denies palpitations until this AM. Son reports she was markedly SOB walking to car and had a syncopal episode. She is alert and oriented in ER on NC O2 in no acute distress. - History Source History Provided By: Patient - Past Medical History WARPER TENDER: Yes: Seizure, Syncope Cardio/Vascular: Yes: CAD (denies h/o PCI), HTN, Hyperlipdemia Pulmonary: Yes: Asthma, COPD, O2 Dependent, Sleep Apnea, Other (uses NIPPV at night) ...LMP: 03/18/01 Rheumatology: Yes: Lupus Endocrine: Yes: Diabetes Mellitus - Past Surgical History Past Surgical History: Yes: Cataract Removal, Cholecystectomy, , Joint Replacement (Right total hip replacement), Tonsillectomy - Alcohol/Substance Use Hx Alcohol Use: No History of Substance Use: reports: None - Smoking History Smoking history: Former smoker Have you smoked in the past 12 months: No Aproximately how many cigarettes per day: 10 If you are a former smoker, when did you quit?: 22 yrs ago - Social History Usual Living Arrangement: With Spouse ADL: Support Services History of Recent Travel: No Home Medications - Allergies Allergies/Adverse Reactions: Allergies Allergy/AdvReac Type Severity Reaction Status Date / Time gabapentin [From Neurontin] Allergy PALPITATIONS, Verified 06/02/18 09:28 PASSES OUT Penicillins Allergy TONGUE Verified 06/02/18 09:28 Swelling phenytoin sodium Allergy diarrhea/vo Verified 06/02/18 09:28 [From Dilantin] miting phenytoin sodium extended Allergy Verified 06/02/18 09:28 [From Dilantin] theophylline [Theophylline] Allergy diarrhea,SE Verified 06/02/18 09:28 IZURES fresh garlic Allergy Uncoded 06/02/18 09:28 - Home Medications Home Medications: Ambulatory Orders Albuterol 0.083% Nebulizer Myriam [Ventolin 0.083% Nebulizer Soln -] 1 amp NEB PRN 10/24/17 Atorvastatin Ca [Lipitor] 10 mg PO HS 10/24/17 Folic Acid 1 mg PO DAILY 10/24/17 Glipizide 10 mg PO BID 10/24/17 Hydroxychloroquine So4 [Plaquenil -] 200 mg PO BID 10/24/17 Insulin Detemir [Levemir Flextouch] 20 unit SQ BID 10/24/17 Losartan Potassium 100 mg PO DAILY 10/24/17 Methotrexate Sodium [Trexall] 30 mg PO WEEKLY 10/24/17 Budesonide/Formeterol Fumarate [SYMBICORT 160/4.5mcg -] 2 inh PO BID 05/01/18 Ferrous Sulfate [Iron] 325 mg PO DAILY 05/01/18 Insulin Lispro [Humalog] 0 unit SQ TID 05/01/18 Levothyroxine [Synthroid -] 100 mcg PO CHATMAN 05/01/18 Montelukast Sodium [Singulair] 10 mg PO DAILY 05/01/18 Prednisone 5 mg PO DAILY 05/01/18 Sertraline HCl [Zoloft] 100 mg PO DAILY 05/01/18 Umeclidinium [place] [Incruse Ellipta] 62.5 mcg IH AM 05/01/18 Furosemide [Lasix] 80 mg PO DAILY 05/24/18 Linaclotide [Linzess] 145 mcg PO DAILY 05/24/18 Pramipexole Dihydrochloride [Mirapex -] 0.25 mg PO ASDIR #60 tablet 05/25/18 Topiramate [Topamax -] 200 mg PO BID #60 tablet 05/25/18 Albuterol Sulfate [Proair Hfa] 8.5 gm IH PRN PRN 06/02/18 Cholecalciferol (Vitamin D3) [Vitamin D3 -] 2,000 unit PO DAILY 06/02/18 Cyclobenzaprine HCl 7.5 mg PO PRN PRN 06/02/18 Family Disease History - Family Disease History Family Disease History: Heart Disease: Mother, Other: Mother, Brother, Sister, Son Review of Systems Findings/Remarks: see HPI - Review of Systems Constitutional: reports: Weakness HENT: reports: No Symptoms Cardiovascular: reports: Chest Pain (pleuritic), Shortness of Breath Respiratory: reports: Cough, Exercise Intolerance Gastrointestinal: reports: No Symptoms Genitourinary: reports: No Symptoms Breasts: reports: No Symptoms Reported Musculoskeletal: reports: No Symptoms Integumentary: reports: No Symptoms Neurological: reports: No Symptoms Endocrine: reports: No Symptoms Hematology/Lymphatic: reports: No Symptoms Psychiatric: reports: No Symptoms - Risk Factors Known Risk Factors: Yes: Diabetes Mellitus, Hypercholesterolemia, Hypertension, Smoking, Other (Lupus) Vital Signs: Vital Signs Temperature 98 F 06/02/18 08:37 Pulse Rate 102 H 06/02/18 10:49 Respiratory Rate 22 H 06/02/18 08:37 Blood Pressure 98/83 06/02/18 08:37 O2 Sat by Pulse Oximetry (%) 97 06/02/18 10:49 Constitutional: Yes: No Distress Eyes: Yes: Conjunctiva Clear, EOM Intact HENT: Yes: Atraumatic, Normocephalic Neck: Yes: Trachea Midline Respiratory: Yes: Other (Mild diffuse expiratory wheezing) Gastrointestinal: Yes: Soft, Abdomen, Obese (Nontender) Cardiovascular: Yes: Regular Rate and Rhythm JVD: No Carotid Bruit: No PMI: Non-Displaced Heart Sounds: Yes: S1, S2 (regular , no murmurs) Edema: Yes Edema: LLE: 1+, RLE: 1+ Peripheral Pulses WNL: Yes Neurological: Yes: Alert, Oriented ...Motor Strength: WNL Psychiatric: Yes: WNL - Other Data Labs, Other Data: CBC, BMP 06/02/18 09:14 06/02/18 09:14 INR, PTT INR 1.06 (0.83-1.09) 06/02/18 09:20 Troponin, BNP 06/02/18 09:14 Troponin I 0.03 B-Natriuretic Peptide 235.1 H Troponin, BNP 06/02/18 09:14 Troponin I 0.03 B-Natriuretic Peptide 235.1 H Narrow complex SVT near 200bpm reviewed After adeno: NSR with low Voltage QRS likely due to body habitus Echo: Pending Imaging - Results Chest X-ray: Image Reviewed EKG: Image Reviewed Problem List - Problems (1) PSVT (paroxysmal supraventricular tachycardia) Code(s): I47.1 - SUPRAVENTRICULAR TACHYCARDIA (2) Pleuritic chest pain Code(s): R07.81 - PLEURODYNIA (3) Dyspnea Code(s): R06.00 - DYSPNEA, UNSPECIFIED Qualifiers: Dyspnea type: dyspnea on exertion Qualified Code(s): R06.09 - Other forms of dyspnea (4) Lupus Code(s): M32.9 - SYSTEMIC LUPUS ERYTHEMATOSUS, UNSPECIFIED (5) COPD (chronic obstructive pulmonary disease) Code(s): J44.9 - CHRONIC OBSTRUCTIVE PULMONARY DISEASE, UNSPECIFIED Qualifiers: COPD type: chronic bronchitis (6) Diabetes mellitus Code(s): E11.9 - TYPE 2 DIABETES MELLITUS WITHOUT COMPLICATIONS Qualifiers: Diabetes mellitus type: type 2 Diabetes mellitus complication status: with unspecified complications (7) Obesity Code(s): E66.9 - OBESITY, UNSPECIFIED Qualifiers: Obesity type: unspecified obesity type (8) Hypothyroid Code(s): E03.9 - HYPOTHYROIDISM, UNSPECIFIED Qualifiers: Hypothyroidism type: acquired Qualified Code(s): E03.9 - Hypothyroidism, unspecified (9) Abnormal ECG Code(s): R94.31 - ABNORMAL ELECTROCARDIOGRAM [ECG] [EKG] Assessment/Plan IMP: 1. PSVT 2. Pleuritic chest pain 3. Dyspnea 4. Syncope in setting of above 5. SLE 6. DM 7. Obesity/DANY Differential at this time includes: Pulmonary embolism/ COPD exacerbation/ SLE flair/Doubt ACS/ Doubt CHF REC: 1. Tele 2. Can start Cardizem Q6h to prevent recurrent SVT (avoid beta blockers with h/ o asthma and active wheezing) 3. Echo to evaluate for pericardial effusion--> low voltage ECG, likely due to body habitus 4. CTA chest to r/o Pulmonary Embolism 5. Consider Pulm Eval. Thank you. Will follow
[2018-06-02] MEDS ORDERED: ALBUTEROL SO4 8 GM HFA INHALER IH PRN (11:46)
[2018-06-02] MEDS ORDERED: CYCLOBENZAPRINE HCL 5 MG TABLET PO PRN (11:51)
--- NOTE | 2018-06-02 12:04 | HP ---
Admitting History and Physical - Admission Chief Complaint: Palpitation and SOB History of Present Illness: 63 yo F multiple medical Co-morbidities recently discharged home on 05/24/2018 after evaluated for AMS (attributed to ? seizure/medications) also H/O HTN, T2DM , seizure disorder, Migraine headaches and Severe Restless Limbs Syndrome ( RLS). SLE , COPD / ILD secondary to SLE on Home O2, Morbidly obese on CPAP for DANY, today preset with c/o feeling unwell , SOB , palpitation , noticed her HR > 100 at home with pleuritic chest pain on arrival to ED HR recorded 200 with narrow complex, received 6 mg Adenosine Bolus and converted to sinus rhythm and stayed in sinus rhythm, evaluated by cardiology consult recommended CTA to R /O PE and hospitalization for close observation. No c/O fever, chills, nausea, vomiting or diarrhea at base line limited mobility. History Source: Patient - Past Medical History AGRONOMIST: Yes: Seizure, Syncope Cardiovascular: Yes: CAD (denies h/o PCI), HTN, Hyperlipdemia Pulmonary: Yes: Asthma, COPD, O2 Dependent, Sleep Apnea, Other (uses NIPPV at night) ...LMP: 03/18/01 Heme/Onc: Yes: Anemia Rheumatology: Yes: Lupus Endocrine: Yes: Diabetes Mellitus - Past Surgical History Past Surgical History: Yes: Cataract Removal, Cholecystectomy, , Joint Replacement (Right total hip replacement), Tonsillectomy - Smoking History Smoking history: Former smoker Have you smoked in the past 12 months: No Aproximately how many cigarettes per day: 10 If you are a former smoker, when did you quit?: 22 yrs ago - Alcohol/Substance Use Hx Alcohol Use: No History of Substance Use: reports: None - Social History ADL: Support Services History of Recent Travel: No Home Medications - Allergies Allergies/Adverse Reactions: Allergies Allergy/AdvReac Type Severity Reaction Status Date / Time gabapentin [From Neurontin] Allergy PALPITATIONS, Verified 06/02/18 09:28 PASSES OUT Penicillins Allergy TONGUE Verified 06/02/18 09:28 Swelling phenytoin sodium Allergy diarrhea/vo Verified 06/02/18 09:28 [From Dilantin] miting phenytoin sodium extended Allergy Verified 06/02/18 09:28 [From Dilantin] theophylline [Theophylline] Allergy diarrhea,SE Verified 06/02/18 09:28 IZURES fresh garlic Allergy Uncoded 06/02/18 09:28 - Home Medications Home Medications: Ambulatory Orders Albuterol 0.083% Nebulizer Myriam [Ventolin 0.083% Nebulizer Soln -] 1 amp NEB PRN 10/24/17 Atorvastatin Ca [Lipitor] 10 mg PO HS 10/24/17 Folic Acid 1 mg PO DAILY 10/24/17 Glipizide 10 mg PO BID 10/24/17 Hydroxychloroquine So4 [Plaquenil -] 200 mg PO BID 10/24/17 Insulin Detemir [Levemir Flextouch] 20 unit SQ BID 10/24/17 Losartan Potassium 100 mg PO DAILY 10/24/17 Methotrexate Sodium [Trexall] 30 mg PO WEEKLY 10/24/17 Budesonide/Formeterol Fumarate [SYMBICORT 160/4.5mcg -] 2 inh PO BID 05/01/18 Ferrous Sulfate [Iron] 325 mg PO DAILY 05/01/18 Insulin Lispro [Humalog] 0 unit SQ TID 05/01/18 Levothyroxine [Synthroid -] 100 mcg PO CHATMAN 05/01/18 Montelukast Sodium [Singulair] 10 mg PO DAILY 05/01/18 Prednisone 5 mg PO DAILY 05/01/18 Sertraline HCl [Zoloft] 100 mg PO DAILY 05/01/18 Umeclidinium [place] [Incruse Ellipta] 62.5 mcg IH AM 05/01/18 Furosemide [Lasix] 80 mg PO DAILY 05/24/18 Linaclotide [Linzess] 145 mcg PO DAILY 05/24/18 Pramipexole Dihydrochloride [Mirapex -] 0.25 mg PO ASDIR #60 tablet 05/25/18 Topiramate [Topamax -] 200 mg PO BID #60 tablet 05/25/18 Albuterol Sulfate [Proair Hfa] 8.5 gm IH PRN PRN 06/02/18 Cholecalciferol (Vitamin D3) [Vitamin D3 -] 2,000 unit PO DAILY 06/02/18 Cyclobenzaprine HCl 7.5 mg PO PRN PRN 06/02/18 Family Disease History - Family Disease History Family Disease History: Heart Disease: Mother, Other: Mother, Brother, Sister, Son Review of Systems - Review of Systems Constitutional: denies: Chills, Diaphoresis, Fever, Lethargy Eyes: denies: Blurred Vision, Double Vision HENT: denies: Difficult Swallowing, Ear Discharge Neck: denies: Decreased ROM, Lumps, Pain on Movement Cardiovascular: reports: Chest Pain, Edema, Palpitations, Shortness of Breath Respiratory: reports: Exercise Intolerance. denies: Cough, Hemoptysis Gastrointestinal: denies: Abdominal Pain, Bloating Genitourinary: denies: Burning, Discharge Musculoskeletal: reports: Back Pain. denies: Crepitus, Decreased ROM Neurological: denies: Change in LOC, Change in Speech, Weakness Physical Examination Vital Signs: Vital Signs Temperature 98 F 06/02/18 08:37 Pulse Rate 100 H 06/02/18 11:34 Respiratory Rate 22 H 06/02/18 11:34 Blood Pressure 107/82 06/02/18 11:34 O2 Sat by Pulse Oximetry (%) 97 06/02/18 11:34 GENERAL: Middle aged F Awake, no acute distress. HEENT: Normal with no signs of trauma. Pupils equal, round and reactive to light, EOMI NECK: Normal range of motion, supple without lymphadenopathy, JVD, or masses. CHEST/LUNGS: CTA B/L No wheezes, and no crackles. HEART: Regular rate and rhythm, normal S1 and S2 without murmur, rub or gallop. ABDOMEN: Obese , Soft, non-tender, not distended, + bowel sounds, no guarding, no rebound, no masses. MUSCULOSKELETAL: Normal range of motion at all joints. No bony deformities or tenderness. No CVA tenderness. EXTREMITIES: 2+ pulses, warm, well-perfused. No cyanosis, trace edema. NEUROLOGICAL: Cranial nerves II-XII intact. Normal speech. Normal gait. non focal Labs: CBC, BMP 06/02/18 09:14 04/ WBC 8.5 K/mm3 (4.0-10.0) 06/02/18 09:14 RBC 4.07 M/mm3 (3.60-5.2) 06/02/18 09:14 Hgb 12.2 GM/dL (10.7-15.3) 06/02/18 09:14 Hct 37.5 % (32.4-45.2) 06/02/18 09:14 MCV 92.1 fl (80-96) 06/02/18 09:14 MCH 30.0 pg (25.7-33.7) 06/02/18 09:14 MCHC 32.5 g/dl (32.0-36.0) 06/02/18 09:14 RDW 15.3 % (11.6-15.6) 06/02/18 09:14 Plt Count 398 K/MM3 (134-434) 06/02/18 09:14 MPV 8.1 fl (7.5-11.1) 06/02/18 09:14 Absolute Neuts (auto) 4.2 K/mm3 (1.5-8.0) 06/02/18 09:14 Neutrophils % 49.4 % (42.8-82.8) 06/02/18 09:14 Lymphocytes % 44.1 % (8-40) H D 06/02/18 09:14 Monocytes % 4.8 % (3.8-10.2) 06/02/18 09:14 Eosinophils % 0.5 % (0-4.5) 06/02/18 09:14 Basophils % 1.2 % (0-2.0) D 06/02/18 09:14 Nucleated RBC % 0 % (0-0) 06/02/18 09:14 Sodium 144 mmol/L (136-145) 06/02/18 09:14 Potassium 3.7 mmol/L (3.5-5.1) 06/02/18 09:14 Chloride 110 mmol/L (98-107) H 06/02/18 09:14 Carbon Dioxide 25 mmol/L (21-32) 06/02/18 09:14 Anion Gap 9 MMOL/L (8-16) 06/02/18 09:14 BUN 17 mg/dL (7-18) 06/02/18 09:14 Creatinine 1.1 mg/dL (0.55-1.3) 06/02/18 09:14 Creat Clearance w eGFR 50.33 (>60) 06/02/18 09:14 POC Glucometer 88 UNITS (80-120) 06/02/18 08:45 Random Glucose 78 mg/dL (74-106) 06/02/18 09:14 Calcium 9.5 mg/dL (8.5-10.1) 06/02/18 09:14 Total Bilirubin 0.2 mg/dL (0.2-1) 06/02/18 09:14 AST 23 U/L (15-37) 06/02/18 09:14 ALT 30 U/L (13-61) 06/02/18 09:14 Alkaline Phosphatase 121 U/L (45-117) H 06/02/18 09:14 Creatine Kinase 116 U/L (26-192) 06/02/18 09:14 Troponin I 0.03 ng/ml (0.00-0.05) 06/02/18 09:14 B-Natriuretic Peptide 235.1 pg/ml (5-125) H 06/02/18 09:14 Total Protein 7.5 g/dl (6.4-8.2) 06/02/18 09:14 Albumin 3.4 g/dl (3.4-5.0) 06/02/18 09:14 Imaging - Results Chest X-ray: Report Reviewed (No acute pathology) EKG: Report Reviewed (Ist Narrow complex SVT around 200 After Adnosine NSR with low Volatge) Problem List - Problems (1) PSVT (paroxysmal supraventricular tachycardia) Assessment/Plan: New onset PSVT converted to NSR will F/U CTA to R/O PE as c/o chest pain, F/U cardiology recommendation, low voltage EKG F/U ECHO 2nd troponin I. PPro BNP normal Ist Trop I normal. Code(s): I47.1 - SUPRAVENTRICULAR TACHYCARDIA (2) COPD (chronic obstructive pulmonary disease) Assessment/Plan: Cont Home Nebs and MDI on LABA, LAMA, OCS and PRN JUANY, PO Prednione 5 mg daily no active issue F/U Pulm if c/o wob Code(s): J44.9 - CHRONIC OBSTRUCTIVE PULMONARY DISEASE, UNSPECIFIED Qualifiers: COPD type: chronic bronchitis (3) Diabetes mellitus Assessment/Plan: T2 on Insulin and Oral Glipizide will cont same Coorrection dose insulin. Code(s): E11.9 - TYPE 2 DIABETES MELLITUS WITHOUT COMPLICATIONS Qualifiers: Diabetes mellitus type: type 2 Diabetes mellitus complication status: with unspecified complications (4) Hypothyroid Assessment/Plan: On Levothyroxine Code(s): E03.9 - HYPOTHYROIDISM, UNSPECIFIED Qualifiers: Hypothyroidism type: acquired Qualified Code(s): E03.9 - Hypothyroidism, unspecified (5) CKD (chronic kidney disease) stage 3, GFR 30-59 ml/min Assessment/Plan: Stable renal functions F/U BMP Code(s): N18.3 - CHRONIC KIDNEY DISEASE, STAGE 3 (MODERATE) (6) Hypothyroidism Code(s): E03.9 - HYPOTHYROIDISM, UNSPECIFIED Qualifiers: Hypothyroidism type: unspecified Qualified Code(s): E03.9 - Hypothyroidism , unspecified (7) Morbid obesity Assessment/Plan: Chronic nutrition consult as out patient Code(s): E66.01 - MORBID (SEVERE) OBESITY DUE TO EXCESS CALORIES (8) Type 2 diabetes mellitus Code(s): E11.9 - TYPE 2 DIABETES MELLITUS WITHOUT COMPLICATIONS Qualifiers: 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: without residential use Diabetes mellitus complication status: with kidney complications Diabetes mellitus complication detail: with chronic kidney disease Chronic kidney disease stage : unspecified stage Qualified Code(s): E11.22 - Type 2 diabetes mellitus with diabetic chronic kidney disease (9) Hypertension Assessment/Plan: Well controlled cont Home meds Code(s): I10 - ESSENTIAL (PRIMARY) HYPERTENSION Qualifiers: Hypertension type: essential hypertension Qualified Code(s): I10 - Essential (primary) hypertension (10) Lupus Assessment/Plan: Since she was 20s cont Methotrexate, PO Prednisone, Chloroquine no active issue. Code(s): M32.9 - SYSTEMIC LUPUS ERYTHEMATOSUS, UNSPECIFIED (11) Seizure disorder Assessment/Plan: Cont Topitmate no active issue Code(s): G40.909 - EPILEPSY, UNSP, NOT INTRACTABLE, WITHOUT STATUS EPILEPTICUS (12) DANY on CPAP Assessment/Plan: Cont CPAP at home setting, Code(s): G47.33 - OBSTRUCTIVE SLEEP APNEA (ADULT) (PEDIATRIC); Z99.89 - DEPENDENCE ON OTHER ENABLING MACHINES AND DEVICES
[2018-06-02] MEDS: dilTIAZem HCL 30 MG TABLET (FP) PO SCH ×3 (12:45→23:27)
[2018-06-02] MEDS: ENOXAPARIN NA (PORCINE) 40 MG/0.4 ML DISP.SYRIN SQ SCH (12:45)
[2018-06-02] MEDS ORDERED: dilTIAZem HCL 30 MG TABLET (FP) ONE ×2 (13:48→18:24)
[2018-06-02] MEDS ORDERED: ENOXAPARIN NA (PORCINE) 40 MG/0.4 ML DISP.SYRIN SQ ONE (13:49)
[2018-06-02] MEDS: PRAMIPEXOLE DIHYDROCHLORIDE 0.25 MG TABLET PO SCH ×2 (13:54→22:30)
--- NOTE | 2018-06-02 15:24 | ECHO ---
Name: PREM GILES Exam:Adult Echocardiogram Study Date: 06/02/2018 02:32 PM Age: 63 yrs Reason For Study: SVT R/O EFFUSIONLOW VOLTAGE EKG Height: 62 in Weight: 255 lb BSA: 2.1 m2 MMode/2D Measurements & Calculations IVSd: 0.86 cm Ao root diam: 2.7 cm LVIDd: 4.1 cm LA dimension: 3.2 cm LVIDs: 2.6 cm LVPWd: 0.74 cm EDV(Teich): 72.8 ml LVOT diam: 2.1 cm ESV(Teich): 23.7 ml Doppler Measurements & Calculations MV E max harsha: 56.8 cm/sec Ao V2 max: 116.3 cm/sec MV A max harsha: 52.3 cm/sec Ao max P.4 mmHg MV E/A: 1.1 Ao V2 mean: 76.9 cm/sec MV dec time: 0.23 sec Ao mean P.8 mmHg Ao V2 VTI: 20.0 cm TOI(I,D): 2.1 cm2 TOI(V,D): 2.1 cm2 LV V1 max P.3 mmHg SV(LVOT): 41.9 ml LV V1 mean P.95 mmHg LV V1 max: 75.0 cm/sec LV V1 mean: 43.6 cm/sec LV V1 VTI: 12.6 cm TR max harsha: 238.3 cm/sec Med Peak E' Harsha: 5.5 cm/sec TR max P.7 mmHg Med E/e': 10.4 Lat Peak E' Harsha: 7.1 cm/sec Lat E/e': 8.0 Procedure The study was technically difficult with many images being suboptimal in quality. Left Ventricle Left ventricular systolic function is grossly normal. Ejection Fraction = 55-60%. Regional wall motio n abnormalities cannot be excluded due to limited visualization. Right Ventricle The right ventricle is grossly normal size. The right ventricular systolic function is grossly normal . Atria Normal left and right atrial size and function. Mitral Valve There is mild mitral valve thickening. There is no mitral valve stenosis. There is trace mitral regur gitation. Tricuspid Valve The tricuspid valve is normal in structure and function. There is mild tricuspid regurgitation. Right ventricular systolic pressure is normal. Aortic Valve The aortic valve opens well. No hemodynamically significant valvular aortic stenosis. No aortic regur gitation is present. Pulmonic Valve The pulmonic valve is not well seen, but is grossly normal. There is no pulmonic valvular stenosis. T here is no pulmonic valvular regurgitation. Great Vessels The aortic root is normal size. Pericardium/Pleura Trivial pericardial effusion not hemodynamically significant. Interpretation Summary The study was technically difficult with many images being suboptimal in quality. Trivial pericardial effusion not hemodynamically significant Regional wall motion abnormalities cannot be excluded due to limited visualization. Left ventricular systolic function is grossly normal. Ejection Fraction = 55-60%. The right ventricular systolic function is grossly normal. There is mild mitral valve thickening. There is mild tricuspid regurgitation. Right ventricular systolic pressure is normal. MD Nicholson *Linda 06/02/2018 03:23 PM
[2018-06-02] MEDS: INSULIN SLIDING SCALE (NOVOLOG) 1 VIAL SQ SCH (17:30)
[2018-06-02] MEDS: glipiZIDE 10 MG TABLET (FP) PO SCH (17:30)
[2018-06-02] MEDS ORDERED: PT OWN MED DRAWER 7, Y5N ONE (21:12)
[2018-06-02] MEDS: BUDESONIDE/FORMETEROL FUMARATE 160/4.5 mcg INHALER IH SCH (22:28)
[2018-06-02] MEDS: ATORVASTATIN CA 10 MG TABLET (FP) PO SCH (22:29)
[2018-06-02] MEDS: HYDROXYCHLOROQUINE SO4 200 MG TABLET (FP) PO SCH (22:29)
[2018-06-02] MEDS: MONTELUKAST NA 10 MG TABLET PO SCH (22:29)
[2018-06-02] MEDS: TOPIRAMATE 200 MG TABLET (FP) PO SCH (22:30)
[2018-06-02] MEDS: INSULIN (LEVEMIR) 100 UNITS/ML UNITS SQ SCH (22:32)
--- NOTE | 2018-06-02 23:12 | PN ---
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 Patient endorses that her chest pain has been ongoing since admission. She endorses that it is worsened with breathing. Patient does not endorse acute new complaints at this time. Vital signs BP 125/72 HR 90 RR 16 Temp 99.2F Physical exam General: Patient resting comfortably in bed, no acute distress Cardiac: S1 S2 auscultated without murmurs, rubs, gallops. Chest pain not reproducible upon palpation. Pulmonary: Clear to auscultation without wheezing Abdomen: Obese abodmen, soft, nontender to palpation x4 quadrants Neurological: CN II-XII grossly intact. Freely moving all four extremities without gross focal deficit. Extremities: Trace edema bilateral lower extremities. No calf tenderness to palpation Plan STAT EKG shows normal sinus rhythm at [address]- changes when compared with prior studies. STAT Troponin 0.17 (slight increase from 0.15 earlier today). Likely demand ischemia. Follow repeat. STAT CTA Chest (ordered earlier this afternoon). 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 Continue Cardizem 30mg PO Q6H per cardiology recommendations Continue telemetry monitoring
[2018-06-03 01:02] VITALS: BMI 47.9
[2018-06-03] MEDS ORDERED: glipiZIDE 5 MG TABLET (FP) ONE ×2 (06:37→17:18)
[2018-06-03] MEDS: INSULIN SLIDING SCALE (NOVOLOG) 1 VIAL SQ SCH ×3 (06:48→17:23)
[2018-06-03] MEDS: glipiZIDE 10 MG TABLET (FP) PO SCH ×2 (06:48→17:24)
[2018-06-03] MEDS: LEVOTHYROXINE NA 100 MCG TABLET (FP) PO SCH (06:48)
[2018-06-03] MEDS: dilTIAZem HCL 30 MG TABLET (FP) PO SCH ×4 (06:48→23:08)
[2018-06-03] MEDS: INSULIN (LEVEMIR) 100 UNITS/ML UNITS SQ SCH ×2 (06:50→23:08)
[2018-06-03] MEDS ORDERED: PATIENT'S OWN MEDICATION (NON-FORMULARY) (Umeclidinium Bromide [Incruse Ellipta] 62.5 MCG) IH SCH (07:00)
[2018-06-03 07:57] LABS: BASO % 1.2 % (0-2.0); EOS % 0.5 % (0-4.5); HEMATOCRIT 33.7 % (32.4-45.2); HEMOGLOBIN 10.9 GM/dL (10.7-15.3); LYMPH % 36.7 % (8-40); MCH 29.6 pg (25.7-33.7); MCHC 32.2 g/dl (32.0-36.0); MEAN CELL VOLUME 91.9 fl (80-96); MEAN PLT VOLUME 7.7 fl (7.5-11.1); MONO % 7.1 % (3.8-10.2); NEUT % 54.5 % (42.8-82.8); PLATELET COUNT 342 K/MM3 (134-434); RBC 3.67 M/mm3 (3.60-5.2); RDW 14.8 % (11.6-15.6); WHITE BLOOD COUNT 8.3 K/mm3 (4.0-10.0)
[2018-06-03 08:24] LABS: ALK PHOS 113 U/L (45-117); ANION GAP 7 MMOL/L (8-16); BILIRUBIN,TOTAL 0.3 mg/dL (0.2-1); BLOOD UREA NITROGEN 16 mg/dL (7-18); CALCIUM 8.9 mg/dL (8.5-10.1); CHLORIDE 110 mmol/L (98-107); CO2 25 mmol/L (21-32); GLUCOSE,RANDOM 108 mg/dL (74-106); POTASSIUM 4.1 mmol/L (3.5-5.1); SGOT/AST 17 U/L (15-37); SGPT/ALT 25 U/L (13-61); SODIUM 142 mmol/L (136-145); TOT PROT 6.6 g/dl (6.4-8.2)
[2018-06-03] MEDS: ALBUTEROL SO4 0.083% IH SOL 2.5 MG/3 ML VIAL.NEB. NEB PRN ×2 (09:01→14:20)
--- NOTE | 2018-06-03 09:13 | PN ---
Progress Note, Physician - Current Medication List Current Medications: Active Medications Albuterol Sulfate (Ventolin 0.083% Nebulizer Soln -) 1 amp NEB Q6H PRN PRN Reason: SHORT OF BREATH/WHEEZING Last Admin: 06/03/18 09:01 Dose: 1 amp Albuterol Sulfate (Ventolin Hfa Inhaler -) 1 puff IH Q6H PRN PRN Reason: SHORTNESS OF BREATH Atorvastatin Calcium (Lipitor -) 10 mg PO HS [facility] [place] Last Admin: 06/02/18 22:29 Dose: 10 mg Budesonide/Formoterol Fumarate (Symbicort 160/4.5mcg -) 2 puff IH BID [facility] [place] Last Admin: 06/02/18 22:28 Dose: 2 puff Cholecalciferol (Vitamin D3 -) 2,000 unit PO DAILY [facility] [place] Cyclobenzaprine HCl (Cyclobenzaprine Hcl) 7.5 mg PO Q8H PRN PRN Reason: PAIN Diltiazem HCl (Cardizem -) 30 mg PO Q6HPO [facility] [place] Last Admin: 06/03/18 06:48 Dose: 30 mg Enoxaparin Sodium (Lovenox -) 40 mg SQ DAILY [facility] [place] Last Admin: 06/02/18 12:45 Dose: 40 mg Ferrous Sulfate (Feosol -) 325 mg PO DAILY [facility] [place] Folic Acid (Folic Acid -) 1 mg PO DAILY [facility] [place] Furosemide (Lasix -) 80 mg PO DAILY [facility] [place] Glipizide (Glucotrol -) 10 mg PO BIDAC [facility] [place] Last Admin: 06/03/18 06:48 Dose: 10 mg Hydroxychloroquine Sulfate (Plaquenil -) 200 mg PO BID [facility] [place] Last Admin: 06/02/18 22:29 Dose: 200 mg Insulin Aspart (Novolog Vial Sliding Scale -) 1 vial SQ TIDAC [facility] [place]; Protocol Last Admin: 06/03/18 06:48 Dose: Not Given Insulin Detemir (Levemir Vial) 20 units SQ BID@0700,2200 [facility] [place] Last Admin: 06/03/18 06:50 Dose: 20 units Levothyroxine Sodium (Synthroid -) 100 mcg PO DAILY@0700 [facility] [place] Last Admin: 06/03/18 06:48 Dose: 100 mcg Losartan Potassium (Cozaar -) 100 mg PO DAILY [facility] [place] Methotrexate (Mexate -) 30 mg PO We@1000 [facility] [place] Montelukast Sodium (Singulair -) 10 mg PO HS [facility] [place] Last Admin: 06/02/18 22:29 Dose: 10 mg Non-Formulary Medication (Linaclotide [Linzess]) 145 mcg PO DAILY [facility] [place] Non-Formulary Medication (Umeclidinium [place] [Incruse Ellipta]) 62.5 mcg IH AM [facility] [place] Pramipexole Dihydrochloride (Mirapex -) 1 mg PO BID [facility] [place] Pramipexole Dihydrochloride (Mirapex -) 0.75 mg PO BID [facility] [place] Stop: 06/04/18 22:01 Prednisone (Deltasone -) 5 mg PO DAILY [facility] [place] Sertraline HCl (Zoloft -) 100 mg PO DAILY [facility] [place] Topiramate (Topamax -) 200 mg PO BID [facility] [place] Last Admin: 06/02/18 22:30 Dose: 200 mg - Objective Vital Signs: Vital Signs Temperature 97.1 F L 06/03/18 06:00 Pulse Rate 77 06/03/18 06:00 Respiratory Rate 20 06/03/18 06:00 Blood Pressure 117/64 06/03/18 06:00 O2 Sat by Pulse Oximetry (%) 95 06/02/18 20:00 Constitutional: Yes: Well Nourished, No Distress, Calm, Obese Eyes: Yes: WNL, Conjunctiva Clear, EOM Intact HENT: Yes: WNL, Atraumatic, Normocephalic Neck: Yes: WNL, Supple, Trachea Midline Cardiovascular: Yes: WNL, Regular Rate and Rhythm Respiratory: Yes: WNL, Regular, CTA Bilaterally Gastrointestinal: Yes: WNL, Normal Bowel Sounds, Soft Musculoskeletal: Yes: WNL Extremities: Yes: WNL Integumentary: Yes: WNL Wound/Incision: Yes: Clean/Dry Neurological: Yes: WNL, Alert, Oriented ...Motor Strength: WNL Psychiatric: Yes: WNL, Alert, Oriented Labs: CBC, BMP 06/03/18 06:15 06/03/18 06:00 INR, PTT INR 1.06 (0.83-1.09) 06/02/18 09:20 Assessment/Plan PSVT (paroxysmal supraventricular tachycardia) New diagnosed PSVT converted to NSR after the patient received 6mg of adenosine CTA was done to r/o PE cardiology recommendation low voltage EKG - Echo LV normal function no pericardial effusion was noted - c/w diltiazem 60mg q6hrs convert dose to daily when d/c - consider EP evaluation as an outpatient for possible ablation COPD (chronic obstructive pulmonary disease) Cont Home Nebs and MDI on LABA, LAMA, OCS and PRN JUANY, PO Prednione 5 mg daily no active issue F/U Pulm if c/o wob Diabetes mellitus T2 on Insulin and Oral Glipizide ISS Hypothyroid On Levothyroxine CKD (chronic kidney disease) stage 3, GFR 30-59 ml/min Stable renal functions F/U BMP Class III obesity Chronic nutrition consult as out patient Hypertension Well controlled cont Home meds Lupus Since she was 20s cont Methotrexate, PO Prednisone, Chloroquine no active issue. Seizure disorder Cont Topitmate no active issue DANY on CPAP Cont CPAP at home setting
[2018-06-03] MEDS ORDERED: PT OWN MED DRAWER 7, Y5N ONE ×2 (09:18→20:57)
[2018-06-03] MEDS: FUROSEMIDE 40 MG TABLET (FP) PO SCH (09:22)
[2018-06-03] MEDS: ENOXAPARIN NA (PORCINE) 40 MG/0.4 ML DISP.SYRIN SQ SCH (09:22)
[2018-06-03] MEDS: TOPIRAMATE 200 MG TABLET (FP) PO SCH ×2 (09:23→21:09)
[2018-06-03] MEDS: FERROUS SO4 325 MG TABLET (FP) PO SCH (09:23)
[2018-06-03] MEDS: HYDROXYCHLOROQUINE SO4 200 MG TABLET (FP) PO SCH ×2 (09:23→21:09)
[2018-06-03] MEDS: SERTRALINE HCL 50 MG TABLET (FP) PO SCH (09:24)
[2018-06-03] MEDS: PRAMIPEXOLE DIHYDROCHLORIDE 0.25 MG TABLET PO SCH ×2 (09:24→21:09)
[2018-06-03] MEDS: CHOLECALCIFEROL (VITAMIN D3) 1,000 UNIT TABLET (FP) PO SCH (09:24)
[2018-06-03] MEDS: LOSARTAN POTASSIUM 50 MG TABLET (FP) PO SCH (09:24)
[2018-06-03] MEDS: predniSONE 5 MG TABLET (UD) PO SCH (09:24)
[2018-06-03] MEDS: FOLIC ACID 1 MG TABLET (FP) PO SCH (09:24)
[2018-06-03] MEDS: BUDESONIDE/FORMETEROL FUMARATE 160/4.5 mcg INHALER IH SCH ×2 (09:25→21:08)
[2018-06-03] MEDS ORDERED: PATIENT'S OWN MEDICATION (NON-FORMULARY) (Linaclotide [Linzess] 145 MCG) PO SCH (10:00)
--- NOTE | 2018-06-03 13:08 | PN ---
Progress Note (short form) - Note Progress Note: s: no chest pain, palps, dizziness tele: sinus, no events Current Medications Albuterol Sulfate (Ventolin 0.083% Nebulizer Soln -) 1 amp NEB Q6H PRN PRN Reason: SHORT OF BREATH/WHEEZING Last Admin: 06/03/18 09:01 Dose: 1 amp Albuterol Sulfate (Ventolin Hfa Inhaler -) 1 puff IH Q6H PRN PRN Reason: SHORTNESS OF BREATH Atorvastatin Calcium (Lipitor -) 10 mg PO HS [facility] Last Admin: 06/02/18 22:29 Dose: 10 mg Budesonide/Formoterol Fumarate (Symbicort 160/4.5mcg -) 2 puff IH BID [facility] Last Admin: 06/03/18 09:25 Dose: 2 puff Cholecalciferol (Vitamin D3 -) 2,000 unit PO DAILY [facility] Last Admin: 06/03/18 09:24 Dose: 2,000 unit Cyclobenzaprine HCl (Cyclobenzaprine Hcl) 7.5 mg PO Q8H PRN PRN Reason: PAIN Diltiazem HCl (Cardizem -) 30 mg PO Q6HPO [facility] Last Admin: 06/03/18 13:03 Dose: 30 mg Enoxaparin Sodium (Lovenox -) 40 mg SQ DAILY [facility] Last Admin: 06/03/18 09:22 Dose: 40 mg Ferrous Sulfate (Feosol -) 325 mg PO DAILY [facility] Last Admin: 06/03/18 09:23 Dose: 325 mg Folic Acid (Folic Acid -) 1 mg PO DAILY [facility] Last Admin: 06/03/18 09:24 Dose: 1 mg Furosemide (Lasix -) 80 mg PO DAILY [facility] Last Admin: 06/03/18 09:22 Dose: 80 mg Glipizide (Glucotrol -) 10 mg PO BIDAC [facility] Last Admin: 06/03/18 06:48 Dose: 10 mg Hydroxychloroquine Sulfate (Plaquenil -) 200 mg PO BID [facility] Last Admin: 06/03/18 09:23 Dose: 200 mg Insulin Aspart (Novolog Vial Sliding Scale -) 1 vial SQ TIDAC [facility]; Protocol Last Admin: 06/03/18 11:44 Dose: Not Given Insulin Detemir (Levemir Vial) 20 units SQ BID@0700,2200 [facility] Last Admin: 06/03/18 06:50 Dose: 20 units Levothyroxine Sodium (Synthroid -) 100 mcg PO DAILY@0700 [facility] Last Admin: 06/03/18 06:48 Dose: 100 mcg Losartan Potassium (Cozaar -) 100 mg PO DAILY [facility] Last Admin: 06/03/18 09:24 Dose: 100 mg Methotrexate (Mexate -) 30 mg PO We@1000 [facility] Montelukast Sodium (Singulair -) 10 mg PO HS [facility] Last Admin: 06/02/18 22:29 Dose: 10 mg Non-Formulary Medication (Linaclotide [Linzess]) 145 mcg PO DAILY [facility] Non-Formulary Medication (Umeclidinium [place] [Incruse Ellipta]) 62.5 mcg IH AM [facility] Pramipexole Dihydrochloride (Mirapex -) 1 mg PO BID [facility] Pramipexole Dihydrochloride (Mirapex -) 0.75 mg PO BID [facility] Stop: 06/04/18 22:01 Last Admin: 06/03/18 09:24 Dose: 0.75 mg Prednisone (Deltasone -) 5 mg PO DAILY [facility] Last Admin: 06/03/18 09:24 Dose: 5 mg Sertraline HCl (Zoloft -) 100 mg PO DAILY [facility] Last Admin: 06/03/18 09:24 Dose: 100 mg Topiramate (Topamax -) 200 mg PO BID [facility] Last Admin: 06/03/18 09:23 Dose: 200 mg Vital Signs: Vital Signs Period Temp Pulse Resp BP Sys/Oconnell Pulse Ox Last 24 Hr 97.1 F-99.2 F 77-92 20-22 108-128/60-72 95-98 Constitutional: Yes: No Distress Eyes: Yes: Conjunctiva Clear, EOM Intact HENT: Yes: Atraumatic, Normocephalic Neck: Yes: Trachea Midline Respiratory: Yes: Other (Mild diffuse expiratory wheezing) Gastrointestinal: Yes: Soft, Abdomen, Obese (Nontender) Cardiovascular: Yes: Regular Rate and Rhythm JVD: No Carotid Bruit: No PMI: Non-Displaced Heart Sounds: Yes: S1, S2 (regular , no murmurs) Edema: Yes Edema: LLE: 1+, RLE: 1+ Peripheral Pulses WNL: Yes Neurological: Yes: Alert, Oriented ...Motor Strength: WNL Psychiatric: Yes: WNL Narrow complex SVT near 200bpm reviewed After adeno: NSR with low Voltage QRS likely due to body habitus Echo: 05/2018 tds, grossly nl LV function, nl RV function, mild TR Imaging - Results Chest X-ray: Image Reviewed EKG: Image Reviewed Problem List - Problems (1) PSVT (paroxysmal supraventricular tachycardia) Code(s): I47.1 - SUPRAVENTRICULAR TACHYCARDIA (2) Pleuritic chest pain Code(s): R07.81 - PLEURODYNIA (3) Dyspnea Code(s): R06.00 - DYSPNEA, UNSPECIFIED Qualifiers: Dyspnea type: dyspnea on exertion Qualified Code(s): R06.09 - Other forms of dyspnea (4) Lupus Code(s): M32.9 - SYSTEMIC LUPUS ERYTHEMATOSUS, UNSPECIFIED (5) COPD (chronic obstructive pulmonary disease) Code(s): J44.9 - CHRONIC OBSTRUCTIVE PULMONARY DISEASE, UNSPECIFIED Qualifiers: COPD type: chronic bronchitis (6) Diabetes mellitus Code(s): E11.9 - TYPE 2 DIABETES MELLITUS WITHOUT COMPLICATIONS Qualifiers: Diabetes mellitus type: type 2 Diabetes mellitus complication status: with unspecified complications (7) Obesity Code(s): E66.9 - OBESITY, UNSPECIFIED Qualifiers: Obesity type: unspecified obesity type (8) Hypothyroid Code(s): E03.9 - HYPOTHYROIDISM, UNSPECIFIED Qualifiers: Hypothyroidism type: acquired Qualified Code(s): E03.9 - Hypothyroidism, unspecified (9) Abnormal ECG Code(s): R94.31 - ABNORMAL ELECTROCARDIOGRAM [ECG] [EKG] Assessment/Plan IMP: 1. PSVT 2. Pleuritic chest pain 3. Dyspnea 4. Syncope in setting of above 5. SLE 6. DM 7. Obesity/DANY Differential at this time includes: Pulmonary embolism/ COPD exacerbation/ SLE flair/Doubt ACS/ Doubt CHF REC: 1. Tele - no events 2. continue Cardizem Q6h to prevent recurrent SVT (avoid beta blockers with h/o asthma and active wheezing) 3. Echo technically difficult, no effusion, nl LV function 4. CTA chest - no PE 5. Consider Pulm Eval.
--- NOTE | 2018-06-03 14:10 | EKG ---
Test Reason : Blood Pressure : / mmHG Vent. Rate : 084 BPM Atrial Rate : 084 BPM P-R Int : 152 ms QRS Dur : 072 ms QT Int : 406 ms P-R-T Axes : 034 -26 036 degrees QTc Int : 479 ms POOR DATA QUALITY, INTERPRETATION MAY BE ADVERSELY AFFECTED NORMAL SINUS RHYTHM VOLTAGE CRITERIA FOR LEFT VENTRICULAR HYPERTROPHY ABNORMAL ECG Confirmed by MD SANTOS, MARCIO ([id number]) on 06/03/2018 2:10:31 PM Referred By: Confirmed By:MARCIO GRAHAM MD
--- NOTE | 2018-06-03 14:24 | EKG ---
Test Reason : Blood Pressure : / mmHG Vent. Rate : 115 BPM Atrial Rate : 115 BPM P-R Int : 150 ms QRS Dur : 068 ms QT Int : 308 ms P-R-T Axes : 037 -20 077 degrees QTc Int : 426 ms POOR DATA QUALITY, INTERPRETATION MAY BE ADVERSELY AFFECTED SINUS TACHYCARDIA LEFT VENTRICULAR HYPERTROPHY WITH REPOLARIZATION ABNORMALITY ABNORMAL ECG Confirmed by MD SANTOS, MARCIO ([id number]) on 06/03/2018 2:24:04 PM Referred By: Confirmed By:MARCIO GRAHAM MD
[2018-06-03] MEDS: ATORVASTATIN CA 10 MG TABLET (FP) PO SCH (21:08)
[2018-06-03] MEDS: MONTELUKAST NA 10 MG TABLET PO SCH (21:09)
[2018-06-04] MEDS ORDERED: glipiZIDE 5 MG TABLET (FP) ONE (05:31)
[2018-06-04] MEDS: dilTIAZem HCL 30 MG TABLET (FP) PO SCH (05:36)
[2018-06-04] MEDS: LEVOTHYROXINE NA 100 MCG TABLET (FP) PO SCH (07:40)
[2018-06-04 07:43] LABS: BASO % 0.8 % (0-2.0); EOS % 0.6 % (0-4.5); HEMATOCRIT 36.5 % (32.4-45.2); HEMOGLOBIN 12.1 GM/dL (10.7-15.3); LYMPH % 32.3 % (8-40); MCH 30.4 pg (25.7-33.7); MCHC 33.1 g/dl (32.0-36.0); MEAN CELL VOLUME 91.8 fl (80-96); MEAN PLT VOLUME 7.7 fl (7.5-11.1); MONO % 7.1 % (3.8-10.2); NEUT % 59.2 % (42.8-82.8); PLATELET COUNT 348 K/MM3 (134-434); RBC 3.98 M/mm3 (3.60-5.2); RDW 14.9 % (11.6-15.6); WHITE BLOOD COUNT 10.1 K/mm3 (4.0-10.0)
[2018-06-04 08:05] LABS: ALBUMIN 3.3 g/dl (3.4-5.0); ALK PHOS 117 U/L (45-117); ANION GAP 10 MMOL/L (8-16); BILIRUBIN,TOTAL 0.4 mg/dL (0.2-1); BLOOD UREA NITROGEN 13 mg/dL (7-18); CALCIUM 9.3 mg/dL (8.5-10.1); CHLORIDE 106 mmol/L (98-107); CO2 24 mmol/L (21-32); GLUCOSE,RANDOM 67 mg/dL (74-106); POTASSIUM 3.9 mmol/L (3.5-5.1); SGOT/AST 23 U/L (15-37); SGPT/ALT 27 U/L (13-61); SODIUM 141 mmol/L (136-145); TOT PROT 7.2 g/dl (6.4-8.2)
[2018-06-04] MEDS ORDERED: PT OWN MED DRAWER 7, Y5N ONE (08:50)
[2018-06-04 08:55] VITALS: BP 127/72; PULSE 83; TEMP 98.9
[2018-06-04] MEDS: INSULIN SLIDING SCALE (NOVOLOG) 1 VIAL SQ SCH (08:58)
[2018-06-04] MEDS: glipiZIDE 10 MG TABLET (FP) PO SCH (09:02)
[2018-06-04] MEDS: INSULIN (LEVEMIR) 100 UNITS/ML UNITS SQ SCH (09:02)
[2018-06-04] MEDS: HYDROXYCHLOROQUINE SO4 200 MG TABLET (FP) PO SCH (09:03)
[2018-06-04] MEDS: ENOXAPARIN NA (PORCINE) 40 MG/0.4 ML DISP.SYRIN SQ SCH (09:03)
[2018-06-04] MEDS: SERTRALINE HCL 50 MG TABLET (FP) PO SCH (09:04)
[2018-06-04] MEDS: TOPIRAMATE 200 MG TABLET (FP) PO SCH (09:04)
[2018-06-04] MEDS: PRAMIPEXOLE DIHYDROCHLORIDE 0.25 MG TABLET PO SCH (09:05)
[2018-06-04] MEDS: FUROSEMIDE 40 MG TABLET (FP) PO SCH (09:05)
[2018-06-04] MEDS: FERROUS SO4 325 MG TABLET (FP) PO SCH (09:05)
[2018-06-04] MEDS: BUDESONIDE/FORMETEROL FUMARATE 160/4.5 mcg INHALER IH SCH (09:06)
[2018-06-04] MEDS: LOSARTAN POTASSIUM 50 MG TABLET (FP) PO SCH (09:06)
[2018-06-04] MEDS: FOLIC ACID 1 MG TABLET (FP) PO SCH (09:06)
[2018-06-04] MEDS: predniSONE 5 MG TABLET (UD) PO SCH (09:06)
[2018-06-04] MEDS: CHOLECALCIFEROL (VITAMIN D3) 1,000 UNIT TABLET (FP) PO SCH (09:06)
--- NOTE | 2018-06-04 10:30 | PN ---
Progress Note (short form) - Note Progress Note: s: no chest pain, palps, dizziness tele: sinus, no events Current Medications Albuterol Sulfate (Ventolin 0.083% Nebulizer Soln -) 1 amp NEB Q6H PRN PRN Reason: SHORT OF BREATH/WHEEZING Last Admin: 06/03/18 14:20 Dose: 1 amp Albuterol Sulfate (Ventolin Hfa Inhaler -) 1 puff IH Q6H PRN PRN Reason: SHORTNESS OF BREATH Atorvastatin Calcium (Lipitor -) 10 mg PO HS [facility] Last Admin: 06/03/18 21:08 Dose: 10 mg Budesonide/Formoterol Fumarate (Symbicort 160/4.5mcg -) 2 puff IH BID [facility] Last Admin: 06/04/18 09:06 Dose: 2 puff Cholecalciferol (Vitamin D3 -) 2,000 unit PO DAILY [facility] Last Admin: 06/04/18 09:06 Dose: 2,000 unit Cyclobenzaprine HCl (Cyclobenzaprine Hcl) 7.5 mg PO Q8H PRN PRN Reason: PAIN Diltiazem HCl (Cardizem -) 30 mg PO Q6HPO [facility] Last Admin: 06/04/18 05:36 Dose: 30 mg Enoxaparin Sodium (Lovenox -) 40 mg SQ DAILY [facility] Last Admin: 06/04/18 09:03 Dose: 40 mg Ferrous Sulfate (Feosol -) 325 mg PO DAILY [facility] Last Admin: 06/04/18 09:05 Dose: 325 mg Folic Acid (Folic Acid -) 1 mg PO DAILY [facility] Last Admin: 06/04/18 09:06 Dose: 1 mg Furosemide (Lasix -) 80 mg PO DAILY [facility] Last Admin: 06/04/18 09:05 Dose: Not Given Glipizide (Glucotrol -) 10 mg PO BIDAC [facility] Last Admin: 06/04/18 09:02 Dose: 10 mg Hydroxychloroquine Sulfate (Plaquenil -) 200 mg PO BID [facility] Last Admin: 06/04/18 09:03 Dose: 200 mg Insulin Aspart (Novolog Vial Sliding Scale -) 1 vial SQ TIDAC [facility]; Protocol Last Admin: 06/04/18 08:58 Dose: Not Given Insulin Detemir (Levemir Vial) 20 units SQ BID@0700,2200 [facility] Last Admin: 06/04/18 09:02 Dose: 20 units Levothyroxine Sodium (Synthroid -) 100 mcg PO DAILY@0700 [facility] Last Admin: 06/04/18 07:40 Dose: 100 mcg Losartan Potassium (Cozaar -) 100 mg PO DAILY [facility] Last Admin: 06/04/18 09:06 Dose: 100 mg Methotrexate (Mexate -) 30 mg PO We@1000 [facility] Montelukast Sodium (Singulair -) 10 mg PO HS [facility] Last Admin: 06/03/18 21:09 Dose: 10 mg Non-Formulary Medication (Linaclotide [Linzess]) 145 mcg PO DAILY [facility] Non-Formulary Medication (Umeclidinium [place] [Incruse Ellipta]) 62.5 mcg IH AM [facility] Pramipexole Dihydrochloride (Mirapex -) 1 mg PO BID [facility] Pramipexole Dihydrochloride (Mirapex -) 0.75 mg PO BID [facility] Stop: 06/04/18 22:01 Last Admin: 06/04/18 09:05 Dose: 0.75 mg Prednisone (Deltasone -) 5 mg PO DAILY [facility] Last Admin: 06/04/18 09:06 Dose: 5 mg Sertraline HCl (Zoloft -) 100 mg PO DAILY [facility] Last Admin: 06/04/18 09:04 Dose: 100 mg Topiramate (Topamax -) 200 mg PO BID [facility] Last Admin: 06/04/18 09:04 Dose: 200 mg Vital Signs Period Temp Pulse Resp BP Sys/Oconnell Pulse Ox Last 24 Hr 97.6 F-98.9 F 72-94 16-20 115-136/58-79 97-100 Constitutional: Yes: No Distress Eyes: Yes: Conjunctiva Clear, EOM Intact HENT: Yes: Atraumatic, Normocephalic Neck: Yes: Trachea Midline Respiratory: Yes: Other (Mild diffuse expiratory wheezing) Gastrointestinal: Yes: Soft, Abdomen, Obese (Nontender) Cardiovascular: Yes: Regular Rate and Rhythm JVD: No Carotid Bruit: No PMI: Non-Displaced Heart Sounds: Yes: S1, S2 (regular , no murmurs) Edema: Yes Edema: LLE: 1+, RLE: 1+ Peripheral Pulses WNL: Yes Neurological: Yes: Alert, Oriented ...Motor Strength: WNL Psychiatric: Yes: WNL Narrow complex SVT near 200bpm reviewed After adeno: NSR with low Voltage QRS likely due to body habitus Echo: 05/2018 tds, grossly nl LV function, nl RV function, mild TR Imaging - Results Chest X-ray: Image Reviewed EKG: Image Reviewed Problem List - Problems (1) PSVT (paroxysmal supraventricular tachycardia) Code(s): I47.1 - SUPRAVENTRICULAR TACHYCARDIA (2) Pleuritic chest pain Code(s): R07.81 - PLEURODYNIA (3) Dyspnea Code(s): R06.00 - DYSPNEA, UNSPECIFIED Qualifiers: Dyspnea type: dyspnea on exertion Qualified Code(s): R06.09 - Other forms of dyspnea (4) Lupus Code(s): M32.9 - SYSTEMIC LUPUS ERYTHEMATOSUS, UNSPECIFIED (5) COPD (chronic obstructive pulmonary disease) Code(s): J44.9 - CHRONIC OBSTRUCTIVE PULMONARY DISEASE, UNSPECIFIED Qualifiers: COPD type: chronic bronchitis (6) Diabetes mellitus Code(s): E11.9 - TYPE 2 DIABETES MELLITUS WITHOUT COMPLICATIONS Qualifiers: Diabetes mellitus type: type 2 Diabetes mellitus complication status: with unspecified complications (7) Obesity Code(s): E66.9 - OBESITY, UNSPECIFIED Qualifiers: Obesity type: unspecified obesity type (8) Hypothyroid Code(s): E03.9 - HYPOTHYROIDISM, UNSPECIFIED Qualifiers: Hypothyroidism type: acquired Qualified Code(s): E03.9 - Hypothyroidism, unspecified (9) Abnormal ECG Code(s): R94.31 - ABNORMAL ELECTROCARDIOGRAM [ECG] [EKG] Assessment/Plan IMP: 1. PSVT 2. Pleuritic chest pain 3. Dyspnea 4. Syncope in setting of above 5. SLE 6. DM 7. Obesity/DANY Differential at this time includes: Pulmonary embolism/ COPD exacerbation/ SLE flair/Doubt ACS/ Doubt CHF REC: 1. Tele - no events 2. transition to cardizem CD 120 mg daily to prevent recurrent SVT (avoid beta blockers with h/o asthma and active wheezing) 3. Echo technically difficult, no effusion, nl LV function 4. CTA chest - no PE 5. Follow up with Dr Laboy, will consider outpatient EP eval and ablation Stable for dc from cardiac perspective
--- NOTE | 2018-06-04 11:16 | CON.PULM ---
Consult Consult Specialty:: PULMONARY Referred by:: FORTINO Reason for Consultation:: SOB/ASTHMA - History of Present Illness Chief Complaint: SOB History of Present Illness: The patient is a 63 year old female with a PMH of COPD (on 2L O2 @ home), CHF, SLE, IDDM and HTN who was BIBEMS for weakness, shortness of breath and chest tightness/pleuritic chest pain. Symptoms present for 1 month and worsening. States she only gets out bed to go to the bathroom and eat with significant MYERS. Recent evaluation in our ED earlier this month for pain likely 2/2 to patient's SLE. 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 No: Alzheimer's Cardio/Vascular: Yes: CAD (denies h/o PCI), HTN, Hyperlipdemia Pulmonary: Yes: Asthma, COPD, O2 Dependent, Sleep Apnea, Other (uses NIPPV at night) ...LMP: 03/18/01 ...: No Rheumatology: Yes: Lupus Endocrine: Yes: Diabetes Mellitus - Past Surgical History Past Surgical History: Yes: Cataract Removal, Cholecystectomy, , Joint Replacement (Right total hip replacement), Tonsillectomy - Alcohol/Substance Use Hx Alcohol Use: No History of Substance Use: reports: None - Smoking History Smoking history: Former smoker Have you smoked in the past 12 months: No Aproximately how many cigarettes per day: 10 If you are a former smoker, when did you quit?: 22 yrs ago - Social History Usual Living Arrangement: With Spouse ADL: Support Services History of Recent Travel: No Home Medications - Allergies Allergies/Adverse Reactions: Allergies Allergy/AdvReac Type Severity Reaction Status Date / Time gabapentin [From Neurontin] Allergy PALPITATIONS, Verified 06/02/18 09:28 PASSES OUT Penicillins Allergy TONGUE Verified 06/02/18 09:28 Swelling phenytoin sodium Allergy diarrhea/vo Verified 06/02/18 09:28 [From Dilantin] miting phenytoin sodium extended Allergy Verified 06/02/18 09:28 [From Dilantin] theophylline [Theophylline] Allergy diarrhea,SE Verified 06/02/18 09:28 IZURES fresh garlic Allergy Uncoded 06/02/18 09:28 - Home Medications Home Medications: Ambulatory Orders Albuterol 0.083% Nebulizer Myriam [Ventolin 0.083% Nebulizer Soln -] 1 amp NEB PRN 10/24/17 Atorvastatin Ca [Lipitor] 10 mg PO HS 10/24/17 Folic Acid 1 mg PO DAILY 10/24/17 Glipizide 10 mg PO BID 10/24/17 Hydroxychloroquine So4 [Plaquenil -] 200 mg PO BID 10/24/17 Insulin Detemir [Levemir Flextouch] 20 unit SQ BID 10/24/17 Losartan Potassium 100 mg PO DAILY 10/24/17 Methotrexate Sodium [Trexall] 30 mg PO WEEKLY 10/24/17 Budesonide/Formeterol Fumarate [SYMBICORT 160/4.5mcg -] 2 inh PO BID 05/01/18 Ferrous Sulfate [Iron] 325 mg PO DAILY 05/01/18 Insulin Lispro [Humalog] 0 unit SQ TID 05/01/18 Levothyroxine [Synthroid -] 100 mcg PO CHATMAN 05/01/18 Montelukast Sodium [Singulair] 10 mg PO DAILY 05/01/18 Prednisone 5 mg PO DAILY 05/01/18 Sertraline HCl [Zoloft] 100 mg PO DAILY 05/01/18 Umeclidinium [place] [Incruse Ellipta] 62.5 mcg IH AM 05/01/18 Furosemide [Lasix] 80 mg PO DAILY 05/24/18 Linaclotide [Linzess] 145 mcg PO DAILY 05/24/18 Pramipexole Dihydrochloride [Mirapex -] 0.25 mg PO ASDIR #60 tablet 05/25/18 Topiramate [Topamax -] 200 mg PO BID #60 tablet 05/25/18 Albuterol Sulfate [Proair Hfa] 8.5 gm IH PRN PRN 06/02/18 Cholecalciferol (Vitamin D3) [Vitamin D3 -] 2,000 unit PO DAILY 06/02/18 Cyclobenzaprine HCl 7.5 mg PO PRN PRN 06/02/18 Diltiazem HCl [Cardizem [place]] 120 mg PO DAILY 30 Days #30 tab.er.24h 06/04/18 Family Disease History - Family Disease History Family Disease History: Heart Disease: Mother, Other: Mother, Brother, Sister, Son Review of Systems - Review of Systems Constitutional: denies: Fever Respiratory: reports: Exercise Intolerance, SOB, SOB on Exertion, Wheezing. denies: Hemoptysis Physical Exam Vital Sings: Vital Signs Temperature 98.9 F 06/04/18 08:53 Pulse Rate 83 06/04/18 08:53 Respiratory Rate 20 06/04/18 08:53 Blood Pressure 127/72 06/04/18 08:53 O2 Sat by Pulse Oximetry (%) 100 06/04/18 08:54 Constitutional: Yes: Calm Eyes: Yes: EOM Intact HENT: Yes: Normocephalic Neck: Yes: Trachea Midline Cardiovascular: Yes: S1, S2 Respiratory: Yes: CTA Bilaterally Gastrointestinal: Yes: Normal Bowel Sounds, Abdomen, Obese Edema: No Labs: CBC, BMP 06/04/18 06:10 06/04/18 06:10 Imaging - Results Chest X-ray: Report Reviewed, Image Reviewed Cat Scan: Report Reviewed, Image Reviewed Problem List - Problems (1) COPD (chronic obstructive pulmonary disease) Code(s): J44.9 - CHRONIC OBSTRUCTIVE PULMONARY DISEASE, UNSPECIFIED Qualifiers: COPD type: chronic bronchitis (2) Diabetes mellitus Code(s): E11.9 - TYPE 2 DIABETES MELLITUS WITHOUT COMPLICATIONS Qualifiers: Diabetes mellitus type: type 2 Diabetes mellitus complication status: with unspecified complications (3) Lupus Code(s): M32.9 - SYSTEMIC LUPUS ERYTHEMATOSUS, UNSPECIFIED (4) DANY on CPAP Code(s): G47.33 - OBSTRUCTIVE SLEEP APNEA (ADULT) (PEDIATRIC); Z99.89 - DEPENDENCE ON OTHER ENABLING MACHINES AND DEVICES (5) Obesity Code(s): E66.9 - OBESITY, UNSPECIFIED Qualifiers: Obesity type: unspecified obesity type (6) PSVT (paroxysmal supraventricular tachycardia) Code(s): I47.1 - SUPRAVENTRICULAR TACHYCARDIA (7) CHF (congestive heart failure) Code(s): I50.9 - HEART FAILURE, UNSPECIFIED Qualifiers: Heart failure type: other Qualified Code(s): I50.9 - Heart failure, unspecified Assessment/Plan PSVT LIKELY RESPONSIBLE FOR DYSPNEA UNDERLYING COPD STABLE BASELINE PE RULED OUT VIA CTA AGREE WITH CARDIAC PLAN WILL FOLLOW COPD OUTPATIENT NO OBJECTION TO DISCHARGE Eduin HART MD
[2018-06-05] MEDS ORDERED: PRAMIPEXOLE DIHYDROCHLORIDE 1 MG TABLET PO SCH (10:00)
[2018-06-07] MEDS ORDERED: METHOTREXATE 2.5 MG TABLET PO SCH (10:00)
== END 2018-06-04 11:59 | disposition home or self-care (01) ==
LOC: JER 08:14 → JERBED 11:13 → J4S 19:38
PROVIDERS: ADMIT Internal Medicine; ATTEND Internal Medicine
PROC: 3E033GC Introduction of Other Therapeutic Substance into Peripheral Vein, Percutaneous Approach (ICD-10-PCS; principal; 2018-06-02)
PROC: 3E013VG Introduction of Insulin into Subcutaneous Tissue, Percutaneous Approach (ICD-10-PCS; 2018-06-02)
PROC: 3E013GC Introduction of Other Therapeutic Substance into Subcutaneous Tissue, Percutaneous Approach (ICD-10-PCS; 2018-06-02)
PROC: 3E0F7GC Introduction of Other Therapeutic Substance into Respiratory Tract, Via Natural or Artificial Opening (ICD-10-PCS; 2018-06-02)
DX: I47.1 Supraventricular tachycardia (principal); R07.81 Pleurodynia; R06.00 Dyspnea, unspecified; M32.9 Systemic lupus erythematosus, unspecified; J44.9 Chronic obstructive pulmonary disease, unspecified; E11.22 Type 2 diabetes mellitus with diabetic chronic kidney disease; I12.9 Hypertensive chronic kidney disease with stage 1 through stage 4 chronic kidney disease, or unspecified chronic kidney disease; N18.3 Chronic kidney disease, stage 3 (moderate); E66.9 Obesity, unspecified; Z68.42 Body mass index [BMI] 45.0-49.9, adult; E03.9 Hypothyroidism, unspecified; R94.31 Abnormal electrocardiogram [ECG] [EKG]; I11.0 Hypertensive heart disease with heart failure; I50.9 Heart failure, unspecified; I25.10 Atherosclerotic heart disease of native coronary artery without angina pectoris; K21.9 Gastro-esophageal reflux disease without esophagitis; E78.5 Hyperlipidemia, unspecified; G40.909 Epilepsy, unspecified, not intractable, without status epilepticus; G47.33 Obstructive sleep apnea (adult) (pediatric); Z87.891 Personal history of nicotine dependence; Z96.643 Presence of artificial hip joint, bilateral; Z96.653 Presence of artificial knee joint, bilateral; Z99.81 Dependence on supplemental oxygen; Z99.89 Dependence on other enabling machines and devices; Z79.4 Long term (current) use of insulin; Z98.84 Bariatric surgery status; Z88.0 Allergy status to penicillin; Z88.8 Allergy status to other drugs, medicaments and biological substances
CPT/HCPCS: 36415; 71045-TC-FY; 71275-TC; 80053; 82550; 82962; 83880; 84443; 84484; 85025; 85610; 93005; 93010; 93306-TC; 94640; 96372; 96374; 99284-25; G0378

== ENCOUNTER 2018-07-13 14:18 | Emergency (ER) | payer OTHER, MEDICARE | END 2018-07-14 01:06 | disposition home or self-care (01) | LOC: JER 07-14 01:06 | PROC: 3E033NZ Introduction of Analgesics, Hypnotics, Sedatives into Peripheral Vein, Percutaneous Approach (ICD-10-PCS; principal; 2018-07-13) | DX: E11.42 Type 2 diabetes mellitus with diabetic polyneuropathy (principal); Z79.4 Long term (current) use of insulin; J44.9 Chronic obstructive pulmonary disease, unspecified; Z99.81 Dependence on supplemental oxygen; I11.0 Hypertensive heart disease with heart failure; I50.9 Heart failure, unspecified; Z87.39 Personal history of other diseases of the musculoskeletal system and connective tissue; E78.00 Pure hypercholesterolemia, unspecified; E03.9 Hypothyroidism, unspecified; Z86.69 Personal history of other diseases of the nervous system and sense organs ==

== ENCOUNTER 2018-10-18 13:52 | Emergency (ER) | payer OTHER, MEDICARE ==
[2018-10-18 14:02] VITALS: BP 129/69; PULSE 93; TEMP 98.2; BMI 45.7
[2018-10-18] MEDS ORDERED: DIPHTH,PERTUSS(ACELL),TET 0.5 ML DISP.SYRIN IM ONE ×2 (14:31→14:34)
--- NOTE | 2018-10-18 14:37 | PDOC ---
History of Present Illness - General Chief Complaint: Bite Stated Complaint: MOUSE BITE/RT. FOOT Time Seen by Provider: 10/18/18 14:08 - History of Present Illness Initial Comments: 10/18/18 14:36 63-year-old patient bitten by mouth at home last night tetanus shot is not up-to -date. She has diabetes dyslipidemia and hypertension. Past History - Past Medical History Allergies/Adverse Reactions: Allergies Allergy/AdvReac Type Severity Reaction Status Date / Time gabapentin [From Neurontin] Allergy PALPITATIONS, Verified 10/18/18 14:02 PASSES OUT Penicillins Allergy TONGUE Verified 10/18/18 14:02 Swelling phenytoin sodium Allergy diarrhea/vo Verified 10/18/18 14:02 [From Dilantin] miting phenytoin sodium extended Allergy Verified 10/18/18 14:02 [From Dilantin] theophylline [Theophylline] Allergy diarrhea,SE Verified 10/18/18 14:02 IZURES fresh garlic Allergy Uncoded 10/18/18 14:02 Home Medications: Ambulatory Orders Albuterol 0.083% Nebulizer Myriam [Ventolin 0.083% Nebulizer Soln -] 1 amp NEB PRN 10/24/17 Atorvastatin Ca [Lipitor] 10 mg PO HS 10/24/17 Folic Acid 1 mg PO DAILY 10/24/17 Glipizide 10 mg PO BID 10/24/17 Hydroxychloroquine So4 [Plaquenil -] 200 mg PO BID 10/24/17 Insulin Detemir [Levemir Flextouch] 20 unit SQ BID 10/24/17 Losartan Potassium 100 mg PO DAILY 10/24/17 Methotrexate Sodium [Trexall] 30 mg PO WEEKLY 10/24/17 Budesonide/Formeterol Fumarate [SYMBICORT 160/4.5mcg -] 2 inh PO BID 05/01/18 Ferrous Sulfate [Iron] 325 mg PO DAILY 05/01/18 Insulin Lispro [Humalog] 0 unit SQ TID 05/01/18 Levothyroxine [Synthroid -] 100 mcg PO CHATMAN 05/01/18 Montelukast Sodium [Singulair] 10 mg PO DAILY 05/01/18 Prednisone 5 mg PO DAILY 05/01/18 Sertraline HCl [Zoloft] 100 mg PO DAILY 05/01/18 Umeclidinium [place] [Incruse Ellipta] 62.5 mcg IH AM 05/01/18 Furosemide [Lasix] 80 mg PO DAILY 05/24/18 Linaclotide [Linzess] 145 mcg PO DAILY 05/24/18 Pramipexole Dihydrochloride [Mirapex -] 0.25 mg PO ASDIR #60 tablet 05/25/18 Topiramate [Topamax -] 200 mg PO BID #60 tablet 05/25/18 Albuterol Sulfate [Proair Hfa] 8.5 gm IH PRN PRN 06/02/18 Cholecalciferol (Vitamin D3) [Vitamin D3 -] 2,000 unit PO DAILY 06/02/18 Cyclobenzaprine HCl 7.5 mg PO PRN PRN 06/02/18 Diltiazem HCl [Cardizem LA] 120 mg PO DAILY 30 Days #30 tab.er.24h 06/04/18 Lidocaine 5% Patch [Lidoderm -] 1 patch TP DAILY #7 patch 07/14/18 Doxycycline Hyclate 100 mg PO BID 5 Days #10 tablet 10/18/18 Anemia: No Asthma: Yes Cancer: No Cardiac Disorders: Yes (CAD) CVA: No COPD: Yes (uses 02 at 3l nasal cannula) CHF: No DVT: No Dementia: No Diabetes: Yes GI Disorders: Yes (REFLUX) Disorders: No HTN: Yes Hypercholesterolemia: Yes Liver Disease: No Seizures: Yes (NO RECENT [id number]) Thyroid Disease: Yes (HYPO) - Surgical History Abdominal Surgery: Yes (lapband) Appendectomy: No Cardiac Surgery: No Cholecystectomy: Yes GI Surgery: Yes (LAP sx 11/23/16) Lung Surgery: No Neurologic Surgery: No Orthopedic Surgery: Yes (BILAT HIP REPLACEMENT/BILAT KNEE SX) - Immunization History Immunization Up to Date: Yes - Suicide/Smoking/Psychosocial Hx Smoking Status: Yes Smoking History: Never smoked Have you smoked in the past 12 months: No Number of Cigarettes Smoked Daily: 10 If you are a former smoker, when did you quit?: 22 yrs ago Cigars Per Day: 0 Hx Alcohol Use: No Drug/Substance Use Hx: No Substance Use Type: None Hx Substance Use Treatment: No Review of Systems - Review of Systems Integumentary: Yes: See HPI *Physical Exam - Vital Signs Last Vital Signs Temp Pulse Resp BP Pulse Ox 98.2 F 93 H 16 129/69 98 10/18/18 13:59 10/18/18 13:59 10/18/18 13:59 10/18/18 13:59 10/18/18 13:59 - Physical Exam Comments: 10/18/18 14:35 HEAD: NC/AT EYES: Conjuntiva clear MS: Full ROM in all joints without edema; there is a small wound on the tip of the right fourth toe with covered eschar. No surrounding erythema warmth fluctuance or tenderness. NEUROLOGIC: No gross sensory or motor deficits, NVID SKIN: Normal color and temperature no lesions or rashes Medical Decision Making - Medical Decision Making 10/18/18 14:34 Tetanus shot updated, rabies prophylaxis is not required for a rodent bite. Prophylactic antibiotics pending ALLERGIC patient doxycycline given this was checked on up-to-date. Internal medicine follow-up given for wound checks. *DC/Admit/Observation/Transfer Diagnosis at time of Disposition: Bitten by mouse - Discharge Dispostion Disposition: HOME Condition at time of disposition: Stable Decision to Admit order: No - Prescriptions Prescriptions: Doxycycline Hyclate 100 mg PO BID 5 Days #10 tablet - Referrals Referrals: Sebastián Orozco MD [Staff Physician] - - Patient Instructions Additional Instructions: You tetanus shot was updated today. Take the prophylactic doxycycline twice a day for the next 5 days. An without fail please follow-up with internal medicine in 1-2 days for a wound check and further evaluation and treatment options. - Post Discharge Activity
== END 2018-10-18 15:08 | disposition home or self-care (01) ==
LOC: JERFT 13:52
PROC: 3E0234Z Introduction of Serum, Toxoid and Vaccine into Muscle, Percutaneous Approach (ICD-10-PCS; principal; 2018-10-18)
DX: S90.474A Other superficial bite of right lesser toe(s), initial encounter (principal); W53.01XA Bitten by mouse, initial encounter; Y93.89 Activity, other specified; Y92.038 Other place in apartment as the place of occurrence of the external cause; Y99.8 Other external cause status; I10 Essential (primary) hypertension; E78.5 Hyperlipidemia, unspecified; E11.9 Type 2 diabetes mellitus without complications; Z79.4 Long term (current) use of insulin; E03.9 Hypothyroidism, unspecified; Z87.09 Personal history of other diseases of the respiratory system; Z99.81 Dependence on supplemental oxygen
CPT/HCPCS: 90715; 99281-25

== ENCOUNTER 2018-10-30 16:28 | Emergency (ER) | payer OTHER, MEDICARE | END 2018-10-30 17:17 | disposition home or self-care (01) | LOC: JERFT 16:28 ==

== ENCOUNTER 2018-12-15 09:41 | Day surgery (SDC) | payer OTHER, MEDICARE ==
[2018-12-14 11:16] VITALS: BMI 47.0
[2018-12-15 10:33] VITALS: TEMP 98.8
[2018-12-15] MEDS ORDERED: BUPIVACAINE HCL/PF 0.25% (2.5MG/ML) 10 ML VIAL IJ ONE ×2 (11:10→11:26)
[2018-12-15] MEDS ORDERED: PROPOFOL 20 ML ONE (11:15)
[2018-12-15] MEDS ORDERED: LIDOCAINE HCL/PF 2% SDV 5ML VIAL ONE (11:15)
[2018-12-15] MEDS ORDERED: LIDOCAINE HCL 1%, 10 MG/ML (50 mL VIAL) IJ ONE ×2 (11:26)
[2018-12-15] MEDS ORDERED: IOHEXOL 180 MG/1 ML ML IJ ONE (11:26)
[2018-12-15] MEDS ORDERED: BETAMET ACET/BETAMET NA PH 30 MG/5 ML VIAL IM ONE (11:26)
[2018-12-15 14:31] VITALS: BP 120/61; PULSE 89
--- NOTE | 2018-12-19 20:45 | PROC ---
Procedure Note Procedure: Date of service: 12/15/2018 Preoperative Diagnosis: Low back pain and lumbar radiculopathy on right Postoperative Diagnosis: Same Procedure Performed: Lumbar Epidural Steroid Injection (LESI) on Right L4-5 with dye under Fluoroscopy Anesthesia: Local / MAC Anesthesiologist: Procedure: I discussed with the patient in detail about the risks, benefits, and alternatives to treatment not only limited to infection, headache, numbness , weakness, and injury to nerves, blood vessels and muscles. The patient understood, agreed and signed the written consent. The patient was placed in the prone position with the head, abdomen and legs supported with the pillows. The lumbosacral area was prepped and draped with Betadine times three in a sterile fashion. Lumbar vertebrae were identified under the C-arm. At L4-5 level on the right side, 3 ml of 1 % Lidocaine was infiltrated into the skin and subcutaneous tissue. A 3 inch, #20 gauge Tuohy needle was advanced to the epidural space with loss of resistance technique under fluoroscopic guidance. Aspiration was negative for cerebrospinal fluid and blood. 2ml of Omnipaque ( radio-opaque dye) was injected to confirm the tip of the needle into epidural space and spread of dye. There was no CSF or vascular spread. The spread of dye was noted cranially and caudally on epidurogram. Aspiration was done again which was negative. A solution of 2.5 ml of Celestone, 2.5 ml of 0.25% Marcaine and a total of 5 ml was injected slowly. While Tuohy needle was withdrawn 2.0 ml of 1 % Lidocaine was infiltrated. Bleeding was checked. Betadine was wiped off. A sterile bandage was placed. The patient tolerated the procedure well. There were no immediate complications. The patient was transferred to the recovery room. The patient was observed for some time and discharged as per ASU criteria. The patient was told to apply ice at the injection site. Follow up appointment was given and also call my office at [phone]. If there is any problem, call my office or report to Emergency Room. Ty Hopper M.D.
== END 2018-12-15 14:20 | disposition home or self-care (01) ==
LOC: JASU-SURG 09:41
PROVIDERS: ATTEND Physical Medicine & Rehabilitation
PROC: 3E0R33Z Introduction of Anti-inflammatory into Spinal Canal, Percutaneous Approach (ICD-10-PCS; 2018-12-15)
PROC: B01BYZZ Fluoroscopy of Spinal Cord using Other Contrast (ICD-10-PCS; 2018-12-15)
PROC: 3E0R3BZ Introduction of Anesthetic Agent into Spinal Canal, Percutaneous Approach (ICD-10-PCS; principal; 2018-12-15 12:00)
DX: M54.16 Radiculopathy, lumbar region (principal); M54.5 Low back pain; E11.9 Type 2 diabetes mellitus without complications; G47.30 Sleep apnea, unspecified; J44.9 Chronic obstructive pulmonary disease, unspecified
CPT/HCPCS: 76000-TC-FY; 82962

== ENCOUNTER 2019-03-02 14:30 | Emergency (ER) | payer OTHER, MEDICARE ==
[2019-03-02 14:46] VITALS: BMI 47.5
--- NOTE | 2019-03-02 14:46 | PDOC ---
Rapid Medical Evaluation Time Seen by Provider: 03/02/19 14:41 Medical Evaluation: Allergies Allergy/AdvReac Type Severity Reaction Status Date / Time gabapentin [From Neurontin] Allergy PALPITATIONS, Verified 03/02/19 14:41 PASSES OUT Penicillins Allergy TONGUE Verified 03/02/19 14:41 Swelling phenytoin sodium Allergy diarrhea/vo Verified 03/02/19 14:41 [From Dilantin] miting phenytoin sodium extended Allergy Verified 03/02/19 14:41 [From Dilantin] theophylline [Theophylline] Allergy diarrhea,SE Verified 03/02/19 14:41 IZURES fresh garlic Allergy Uncoded 03/02/19 14:41 03/02/19 14:43 I have performed a brief in-person evaluation of this patient. The patient presents with a chief complaint of: RLE pain/swelling/redness x several days. No f/c. No CP, sob or palpitations,. S/p R TKR 02/08/19, lupus, HTN, HLD, DM, CKD, seizures, DANY, asthma/COPD (on oxygen), morbid obesity. Accompanied by son Pertinent physical exam findings: RLE diffusely swollen, erythematous ttp I have ordered the following:labs/US The patient will proceed to the ED for further evaluation Discharge Disposition - Diagnosis Right leg swelling - Referrals - Patient Instructions - Post Discharge Activity
--- NOTE | 2019-03-02 15:37 | PDOC ---
History of Present Illness - History of Present Illness Initial Comments: 03/02/19 16:34 Pt is a 64y/o female with OA s/p right total knee replacement 02/08/19 at [facility], SLE, HTN, HLD, IDDM2, hypothyroidism, who presents with increasing right lower extremity pain, swelling, and redness over the last week. She was sent by physical therapist today. She describes the pain as sharp, tight, and stabbing which is worse with walking. She was treated for cellulitis during the hospital course for the replacement with vancomycin and ceftriaxone x1 week then given PO doxycycline which she was to finish today. She reports subjective fever, chills, and nausea. She has no hx of DVT or clotting disorders. Pt ambulatory with walker. <Beverly Bhatia - Last Filed: 03/03/19 10:49> <Jess Castillo - Last Filed: 03/03/19 21:12> - General Chief Complaint: Pain, Acute Stated Complaint: RT KNEE PAIN Time Seen by Provider: 03/02/19 14:41 Past History - Past Medical History Anemia: No Asthma: Yes Cancer: No Cardiac Disorders: Yes (CAD, TACHYCARDIA) CVA: No COPD: Yes (uses 02 at 3l nasal cannula) CHF: No DVT: No Dementia: No Diabetes: Yes GI Disorders: Yes (REFLUX) Disorders: No HTN: Yes Hypercholesterolemia: Yes Liver Disease: No Seizures: Yes (NO RECENT SEIZURE-IN ABOUT 10 YEARS) Thyroid Disease: Yes (HYPO) - Surgical History Abdominal Surgery: Yes (lapband) Appendectomy: No Cardiac Surgery: No Cholecystectomy: Yes GI Surgery: Yes (LAP sx 11/23/16) Lung Surgery: No Neurologic Surgery: No Orthopedic Surgery: Yes (BILAT HIP REPLACEMENT/BILAT KNEE SX) - Immunization History Immunization Up to Date: Yes - Psycho Social/Smoking Cessation Hx Smoking Status: Yes Smoking History: Never smoked Have you smoked in the past 12 months: No Number of Cigarettes Smoked Daily: 10 If you are a former smoker, when did you quit?: 22 yrs ago Cigars Per Day: 0 Hx Alcohol Use: No Drug/Substance Use Hx: No Substance Use Type: None Hx Substance Use Treatment: No <Beverly Bhatia - Last Filed: 03/03/19 10:49> <Jess Castillo - Last Filed: 03/03/19 21:12> - Past Medical History Allergies/Adverse Reactions: Allergies Allergy/AdvReac Type Severity Reaction Status Date / Time gabapentin [From Neurontin] Allergy PALPITATIONS, Verified 03/02/19 14:41 PASSES OUT Penicillins Allergy TONGUE Verified 03/02/19 14:41 Swelling phenytoin sodium Allergy diarrhea/vo Verified 03/02/19 14:41 [From Dilantin] miting phenytoin sodium extended Allergy Verified 03/02/19 14:41 [From Dilantin] theophylline [Theophylline] Allergy diarrhea,SE Verified 03/02/19 14:41 IZURES fresh garlic Allergy Uncoded 03/02/19 14:41 Home Medications: Ambulatory Orders RX: Albuterol 0.083% Nebulizer Myriam [Ventolin 0.083% Nebulizer Soln -] 1 amp NEB PRN 10/24/17 RX: Atorvastatin Ca [Lipitor] 10 mg PO HS 10/24/17 RX: Folic Acid 1 mg PO DAILY 10/24/17 RX: Glipizide 10 mg PO BID 10/24/17 RX: Hydroxychloroquine So4 [Plaquenil -] 200 mg PO BID 10/24/17 RX: Insulin Detemir [Levemir Flextouch] 20 unit SQ BID 10/24/17 RX: Losartan Potassium 100 mg PO DAILY 10/24/17 RX: Methotrexate Sodium [Trexall] 30 mg PO WEEKLY 10/24/17 RX: Budesonide/Formeterol Fumarate [SYMBICORT 160/4.5mcg -] 2 inh PO BID RX: Ferrous Sulfate [Iron] 325 mg PO DAILY 05/01/18 RX: Insulin Lispro [Humalog] 0 unit SQ TID 05/01/18 RX: Levothyroxine [Synthroid -] 100 mcg PO CHATMAN 05/01/18 RX: Montelukast Sodium [Singulair] 10 mg PO DAILY 05/01/18 RX: Prednisone 5 mg PO ASDIR 05/01/18 RX: Sertraline HCl [Zoloft] 100 mg PO DAILY 05/01/18 RX: Umeclidinium [place] [Incruse Ellipta] 62.5 mcg IH AM 05/01/18 RX: Furosemide [Lasix] 80 mg PO DAILY 05/24/18 RX: Linaclotide [Linzess] 145 mcg PO ASDIR 05/24/18 RX: Pramipexole Dihydrochloride [Mirapex -] 0.25 mg PO ASDIR #60 tablet RX: Topiramate [Topamax -] 200 mg PO BID #60 tablet 05/25/18 RX: Albuterol Sulfate [Proair Hfa] 8.5 gm IH PRN PRN 06/02/18 RX: Cholecalciferol (Vitamin D3) [Vitamin D3 -] 2,000 unit PO DAILY 06/02/18 RX: Cyclobenzaprine HCl 7.5 mg PO PRN PRN 06/02/18 Diltiazem HCl [Cardizem LA] 120 mg PO DAILY 30 Days #30 tab.er.24h 06/04/18 Icosapent Ethyl [Vascepa] 2 gm PO BID 12/14/18 Review of Systems - Review of Systems Constitutional: Yes: Chills, Fever Respiratory: No: Shortness of Breath Cardiac (ROS): No: Chest Pain ABD/GI: Yes: Nausea. No: Vomiting Integumentary: Yes: Erythema <Beverly Bhatia - Last Filed: 03/03/19 10:49> - Review of Systems Able to Perform ROS?: Yes HEENTM: Yes: See HPI Respiratory: Yes: See HPI. No: Cough Musculoskeletal: Yes: See HPI, Joint Pain, Joint Swelling, Muscle Pain. No: Back Pain Integumentary: Yes: See HPI, Change in Color, Erythema Neurological: Yes: See HPI. No: Paresthesia, Tingling, Weakness Hematologic/Lymphatic: No: Blood Clots, Easy Bleeding, Easy Bruising All Other Systems: Reviewed and Negative <Jess Castillo - Last Filed: 03/03/19 21:12> *Physical Exam - Vital Signs Last Vital Signs Temp Pulse Resp BP Pulse Ox 98.5 F 89 18 134/62 100 03/02/19 14:43 03/02/19 14:43 03/02/19 14:43 03/02/19 14:43 03/02/19 14:43 - Physical Exam General Appearance: Yes: Nourished, Appropriately Dressed. No: Apparent Distress HEENT: positive: EOMI, SHANDRA Neck: positive: Trachea midline Respiratory/Chest: positive: Lungs Clear Cardiovascular: positive: Regular Rhythm, Regular Rate Gastrointestinal/Abdominal: positive: Normal Bowel Sounds. negative: Tender Extremity: positive: Tender, Swelling (+1), Erythema, Other (healing incision over right knee with flaking skin, skin tight; pedal pulse intact) Neurologic: positive: health unit supervisor II-XII NML intact, Fully Oriented, Alert, Normal Mood/ Affect <Beverly Bhatia - Last Filed: 03/03/19 10:49> - Vital Signs Last Vital Signs Temp Pulse Resp BP Pulse Ox 98.6 F 96 H 18 153/71 100 03/02/19 19:23 03/02/19 19:23 03/02/19 19:23 03/02/19 19:23 03/02/19 14:43 <Jess Castillo - Last Filed: 03/03/19 21:12> ED Treatment Course - LABORATORY CBC & Chemistry Diagram: 03/02/19 16:25 03/02/19 16:25 <Beverly Bhatia - Last Filed: 03/03/19 10:49> - LABORATORY CBC & Chemistry Diagram: 03/02/19 16:25 03/02/19 16:25 - ADDITIONAL ORDERS Additional order review: 03/02/19 16:25 Blood Culture - Preliminary Blood - Peripheral Venous NO GROWTH OBTAINED AFTER 24 HOURS, INCUBATION TO CONTINUE FOR 4 DAYS. 03/02/19 16:25 Blood Culture - Preliminary Blood - Peripheral Venous NO GROWTH OBTAINED AFTER 24 HOURS, INCUBATION TO CONTINUE FOR 4 DAYS. 03/02/19 16:25 RBC 3.72 MCV 90.3 MCHC 32.6 RDW 16.3 H MPV 8.2 Neutrophils % 48.1 Lymphocytes % 39.7 Monocytes % 7.4 Eosinophils % 4.1 D Basophils % 0.7 <Jess Castillo - Last Filed: 03/03/19 21:12> Medical Decision Making - Medical Decision Making 03/02/19 16:51 Pt is a 64y/o female with OA s/p right total knee replacement 02/08/19 at [facility], SLE, HTN, HLD, IDDM2, hypothyroidism, who presents with increasing right lower extremity pain, swelling, and redness over the last week. She was sent by physical therapist today. orders: CBC, CMP, blood cultures, doppler LE, CT LE differential: cellulitis, infection of hardware, DVT 03/02/19 19:[address] Dominguez at [facility] who will accept transfer pt. <Beverly Bhatia - Last Filed: 03/03/19 10:49> Discharge - Discharge Information Problems reviewed: Yes - Transfer to Acute Care Facility Receiving Facility Name: [facility] <Beverly Bhatia - Last Filed: 03/03/19 10:49> <Jess Castillo - Last Filed: 03/03/19 21:12> - Discharge Information Clinical Impression/Diagnosis: Right leg swelling Condition: Stable Disposition: TRANSFER ACUTE CARE/OTHER HOSP - Follow up/Referral Referrals: Goran Hernandez MD [Primary Care Provider] -
--- NOTE | 2019-03-02 16:23 | PDOC ---
Attending Attestation - Resident Resident Name: JannetteDominiqueBeverly - ED Attending Attestation I have performed the following: I have examined & evaluated the patient, The case was reviewed & discussed with the resident, I agree w/resident's findings & plan - HPI HPI: 03/02/19 16:20 64 YOF with h/o S/p R TKR 02/08/19, lupus, HTN, HLD, DM, CKD, seizures, DANY, asthma/COPD (on oxygen), morbid obesity, who presents with increasing right lower extremity pain, swelling, and redness over the past 1 week. She was sent by physical therapist today, who told her to go to the ED for eval of her RLE swelling/redness. She describes the pain as sharp, tight, and stabbing which is worse with walking. She was treated for cellulitis during the hospital course for the replacement with vancomycin and ceftriaxone x1 week then given PO doxycycline which she was to finish today. She reports subjective fever, chills , and nausea. She has no hx of DVT or clotting disorders. Pt ambulatory with walker. 03/02/19 16:55 03/03/19 21:12 - Physicial Exam PE: 03/02/19 16:21 Agree with the resident's HPI and PE as documented in the electronic medical record. NAD, well appearing, EOMI, PERRL, nl conjunctiva, anicteric; neck supple. lungs clear, RRR, abdomen soft nontender. No rebound, no guarding. Back nontender. RODRIGUEZ x4, no focal neuro deficits, 5/5 plantar and dorsiflexion, SILT. normal color for ethnicity, WWP RLE with diffuse erythema midline knee vertical scar. very tender diffusely soft compartment 2+ DP pulses bilaterally no wounds 03/03/19 21:14 - Medical Decision Making 03/02/19 16:21 Vital Signs Temp Pulse Resp BP Pulse Ox 98.5 F 89 18 134/62 100 03/02/19 14:43 03/02/19 14:43 03/02/19 14:43 03/02/19 14:43 03/02/19 14:43 VS reviewed, wnl. no fever. ddx dvt vs infection, nec fasciitis, cellulitis, septic arthritis, inflammatory arthritis, osteomyelitis duplex CT/imaging holding abx for now, completed multiple courses of oral abx/inpatient abx at [facility] , accepted by Dr Dominguez to [facility] for abx/eval and ortho cs 03/03/19 21:14 03/03/19 21:15 03/03/19 21:15
[2019-03-02 16:47] LABS: BASO % 0.7 % (0-2.0); EOS % 4.1 % (0-4.5); HEMATOCRIT 33.6 % (32.4-45.2); HEMOGLOBIN 10.9 GM/dL (10.7-15.3); LYMPH % 39.7 % (8-40); MCH 29.4 pg (25.7-33.7); MCHC 32.6 g/dl (32.0-36.0); MEAN CELL VOLUME 90.3 fl (80-96); MEAN PLT VOLUME 8.2 fl (7.5-11.1); MONO % 7.4 % (3.8-10.2); NEUT % 48.1 % (42.8-82.8); PLATELET COUNT 423 K/MM3 (134-434); RBC 3.72 M/mm3 (3.60-5.2); RDW 16.3 % (11.6-15.6); WHITE BLOOD COUNT 6.9 K/mm3 (4.0-10.0)
[2019-03-02 17:39] LABS: ALBUMIN 3.6 g/dl (3.4-5.0); BILIRUBIN,TOTAL 0.5 mg/dL (0.2-1); BLOOD UREA NITROGEN 18.5 mg/dL (7-18); CALCIUM 9.8 mg/dL (8.5-10.1); CREATININE 1.2 mg/dL (0.55-1.3); POTASSIUM 4.9 mmol/L (3.5-5.1); TOT PROT 7.8 g/dl (6.4-8.2)
[2019-03-02 19:32] VITALS: BP 153/71; PULSE 96; TEMP 98.6
== END 2019-03-02 19:20 | disposition short-term general hospital (02) ==
LOC: JER 14:30
DX: M79.89 Other specified soft tissue disorders (principal); Z88.0 Allergy status to penicillin; Z88.8 Allergy status to other drugs, medicaments and biological substances; M32.9 Systemic lupus erythematosus, unspecified; I10 Essential (primary) hypertension; E78.5 Hyperlipidemia, unspecified; E11.9 Type 2 diabetes mellitus without complications; E03.9 Hypothyroidism, unspecified
CPT/HCPCS: 36415; 80053; 83605; 85025; 87040; 93971-TC; 99284-25

== ENCOUNTER 2019-03-18 09:52 | Inpatient (IN) | payer OTHER, MEDICARE ==
[2019-03-18] MEDS ORDERED: VANCOMYCIN 1 GM in D5W (PRE-DOCKED) 1,000 MG/250 ML IVPB ONE ×2 (10:44→22:00)
--- NOTE | 2019-03-18 10:48 | PDOC ---
History of Present Illness - General Chief Complaint: Pain, Acute Stated Complaint: LEG PAIN Time Seen by Provider: 03/18/19 10:18 - History of Present Illness Initial Comments: HPI: 64yo F with PMH of OA s/p right total knee replacement 02/08/19 at [facility], SLE, HTN, HLD, IDDM2, hypothyroidism, who presents with increasing bilateral lower extremity pain, swelling, and redness since Tuesday evening. Her pain is so severe ("like I'm being hit with a sledgehammer) that she has been unable to walk since Tuesday. She was treated for cellulitis during the hospital course for the replacement with vancomycin and ceftriaxone x1 week. She reports a fever of 100.6 earlier today. Also has chills and nausea. States she has not eaten anything since yesterday but is feeling like she can eat now. She has no history of DVT or clotting disorders. No chest or shortness of breath. PCP: Dr. Hernandez ROS: Constitutional: +fever, +chills HEENT: no throat pain, no dysphagia Cardiovascular: no chest pain, no palpitations Respiratory: no cough, no shortness of breath Gastrointestinal: no abdominal pain, +nausea Genitourinary: no dysuria, no hematuria Musculoskeletal: +left leg pain, +right leg pain Skin: no rash, no itching Neurologic: +headache, no weakness Psych: no agitation, no confusion PE: General: Awake, alert, and fully oriented, in no acute distress, morbidly obese Head: No signs of trauma Eyes: EOMI, sclera anicteric ENT: Moist mucus membranes Neck: Normal ROM, supple Lungs: Lungs clear, Normal breath sounds Cardio: Regular rhythm, S1 and S2 present Abdomen: Soft, nontender Extremities: BLE with pain and tenderness to palpation, edema, Distal pulses present SKIN: Warm, Dry, normal turgor Neurologic: Cranial nerves II through XII grossly intact. Normal speech ED Course/MDM: DDX including but not limited to cellulitis, DVT, MSK Labs, EKG, CXR Duplex BLE EKG: rate 75, QTc 457, sinus 03/18/19 10:48 Patient asking for pain medication. States that 4mg morphine in the past has not helped her. Takes oxycodone at home which she says does not improve her pain. 0.5 dilaudid ordered. CBC WBC 11.4 K/mm3 (4.0-10.0) H 03/18/19 11:24 RBC 3.53 M/mm3 (3.60-5.2) L 03/18/19 11:24 Hgb 10.3 GM/dL (10.7-15.3) L 03/18/19 11:24 Hct 32.4 % (32.4-45.2) 03/18/19 11:24 MCV 91.8 fl (80-96) 03/18/19 11:24 MCH 29.2 pg (25.7-33.7) 03/18/19 11:24 MCHC 31.8 g/dl (32.0-36.0) L 03/18/19 11:24 RDW 15.8 % (11.6-15.6) H 03/18/19 11:24 Plt Count 313 K/MM3 (134-434) D 03/18/19 11:24 MPV 8.4 fl (7.5-11.1) 03/18/19 11:24 Absolute Neuts (auto) 6.3 K/mm3 (1.5-8.0) 03/18/19 11:24 Neutrophils % 55.7 % (42.8-82.8) 03/18/19 11:24 Lymphocytes % 25.5 % (8-40) D 03/18/19 11:24 Monocytes % 16.0 % (3.8-10.2) H D 03/18/19 11:24 Eosinophils % 1.1 % (0-4.5) 03/18/19 11:24 Basophils % 1.7 % (0-2.0) 03/18/19 11:24 Nucleated RBC % 0 % (0-0) 03/18/19 11:24 Mild leukocytosis CMP Sodium 140 mmol/L (136-145) 03/18/19 11:24 Potassium 3.9 mmol/L (3.5-5.1) 03/18/19 11:24 Chloride 107 mmol/L (98-107) 03/18/19 11:24 Carbon Dioxide 28 mmol/L (21-32) 03/18/19 11:24 Anion Gap 5 MMOL/L (8-16) L 03/18/19 11:24 BUN 13.5 mg/dL (7-18) 03/18/19 11:24 Creatinine 1.1 mg/dL (0.55-1.3) 03/18/19 11:24 Est GFR (CKD-EPI)AfAm 61.88 03/18/19 11:24 Est GFR (CKD-EPI)NonAf 53.39 03/18/19 11:24 Random Glucose 65 mg/dL (74-106) L 03/18/19 11:24 Lactic Acid 1.1 mmol/L (0.4-2.0) 03/18/19 11:24 Calcium 9.1 mg/dL (8.5-10.1) 03/18/19 11:24 Total Bilirubin 0.3 mg/dL (0.2-1) 03/18/19 11:24 AST 19 U/L (15-37) 03/18/19 11:24 ALT 20 U/L (13-61) 03/18/19 11:24 Alkaline Phosphatase 104 U/L (45-117) 03/18/19 11:24 Total Protein 7.0 g/dl (6.4-8.2) 03/18/19 11:24 Albumin 3.0 g/dl (3.4-5.0) L 03/18/19 11:24 Electrolytes unremarkable Cr normal Lactate normal No transaminitis 03/18/19 12:16 Received call from Nurse Harvey from [facility] [phone], ext. [phone], asking for an update. Pending US 03/18/19 14:[address] sheppard's answering service 03/18/19 15:[address] Skelton, Dr. Sheppard's partner. Call made to Dr. Sheppard's phone; voicemail left 03/18/19 15:43 ESR/CRP added Lab notified 03/18/19 15:47 Dr Avalos discussed case with Gloria Sharma who accepted patient under Dr. Hollis 03/18/19 16:42 BLE Duplex as read by radiology: "Bilateral lower extremity pain. Bilateral leg color Doppler and duplex venous ultrasound Grayscale, pulsed Doppler and color Doppler interrogation of both lower extremities deep venous system was performed. The common femoral vein, femoral vein, popliteal and posterior tibial vein were identified, bilaterally with a normal phasic wave form, adequate compressibility and adequate response to augmentation. Visualized portion of the greater saphenous and deep femoral vein are patent No Guerra's cyst is identified in the popliteal fossa, bilaterally. Impression: There is no evidence of deep venous thromboses in both lower extremities. Reported By: Santana Ch MD 03/18/19 0656 " CXR as read by radiology: " EXAM#: TYPE/EXAM: RESULT: [id number] RAD/CHEST X-RAY PORTABLE* Portable chest: Shortness of breath Single AP view of the chest has been submitted. Since 07/13/2018 again noted is the apical lordotic projection with clear lungs, normal mediastinum and sharp angles. The bones and soft tissues are intact. Impression: No acute chest pathology. Reported By: Morgan Dawson MD 03/18/19 1112 " Past History - Past Medical History Allergies/Adverse Reactions: Allergies Allergy/AdvReac Type Severity Reaction Status Date / Time gabapentin [From Neurontin] Allergy PALPITATIONS, Verified 03/02/19 14:41 PASSES OUT Penicillins Allergy TONGUE Verified 03/02/19 14:41 Swelling phenytoin sodium Allergy diarrhea/vo Verified 03/02/19 14:41 [From Dilantin] miting phenytoin sodium extended Allergy Verified 03/02/19 14:41 [From Dilantin] theophylline [Theophylline] Allergy diarrhea,SE Verified 03/02/19 14:41 IZURES fresh garlic Allergy Uncoded 03/02/19 14:41 Home Medications: Ambulatory Orders Baclofen 10 mg PO TID 03/18/19 Benzocaine/Menthol [Cepacol Sore Throat Lozenge] 1 each MM PRN 03/18/19 Budesonide/Formeterol Fumarate [SYMBICORT 160/4.5mcg -] 2 inh PO BID 03/18/19 Ceftriaxone [Rocephin 2Gm Ivpb (Pre-Docked)] 2 gm IVPB DAILY 03/18/19 Diltiazem Cd [Cardizem Cd -] 120 mg PO DAILY 03/18/19 Folic Acid 2 mg PO DAILY 03/18/19 Furosemide 80 mg PO DAILY 03/18/19 Glipizide 10 mg PO BID 03/18/19 Heparin Sodium,Porcine/Pf [Heparin IV Flush 10 Unit/ml Sy] 5 ml IV BID 03/18/19 Hydroxychloroquine So4 [Plaquenil -] 200 mg PO BID 03/18/19 Insulin Aspart [Novolog] 10 unit SQ BID 03/18/19 Insulin Detemir [Levemir Flextouch] 20 unit SQ BID 03/18/19 Levothyroxine Sodium [Levoxyl] 50 mcg PO DAILY 03/18/19 Linaclotide [Linzess] 145 mcg PO DAILY 03/18/19 Losartan Potassium 100 mg PO DAILY 03/18/19 Methotrexate Sodium [Methotrexate] 10 mg PO WEEKLY 03/18/19 Mineral Oil/Hydrophil Petrolat [Dermaphor Ointment] 118 gm TP BID 03/18/19 Montelukast Na [Singulair -] 10 mg PO HS 03/18/19 Multivitamin [Multiple Vitamins] 1 each PO DAILY 03/18/19 [place]-3 Acid Ethyl Esters [Lovaza -] 2,000 mg PO DAILY 03/18/19 Oxycodone HCl 10 mg PO PRN 03/18/19 Pramipexole Di-HCl [Mirapex] 0.5 mg PO HS 03/18/19 Sertraline HCl [Zoloft] 100 mg PO DAILY 03/18/19 Sodium Chloride [Sodium Chloride -] 5 ml IV BID 03/18/19 Topiramate [Topamax] 200 mg PO BID 03/18/19 Umeclidinium [place] [Incruse Ellipta] 62.5 mcg IH DAILY 03/18/19 Vancomycin 1 Gram (Pre-Docked) [Vancomycin (Pre-Docked)] 1,000 mg IVPB BID 03/18 predniSONE [Deltasone -] 5 mg PO 03/18/19 Anemia: No Asthma: Yes Cancer: No Cardiac Disorders: Yes (CAD, TACHYCARDIA) CVA: No COPD: Yes (uses 02 at 3l nasal cannula) CHF: No DVT: No Dementia: No Diabetes: Yes (PICC line right upper arm 03/18/2019) GI Disorders: Yes (REFLUX) Disorders: No HTN: Yes Hypercholesterolemia: Yes Liver Disease: No Seizures: Yes (NO RECENT SEIZURE-IN ABOUT 10 YEARS) Thyroid Disease: Yes (HYPO) - Surgical History Abdominal Surgery: Yes (lapband) Appendectomy: No Cardiac Surgery: No Cholecystectomy: Yes GI Surgery: Yes (LAP sx 11/23/16) Lung Surgery: No Neurologic Surgery: No Orthopedic Surgery: Yes (BILAT HIP REPLACEMENT/BILAT KNEE SX) - Immunization History Immunization Up to Date: Yes - Psycho Social/Smoking Cessation Hx Smoking Status: Yes Smoking History: Unknown if ever smoked Have you smoked in the past 12 months: No Number of Cigarettes Smoked Daily: 10 If you are a former smoker, when did you quit?: 22 yrs ago Cigars Per Day: 0 Information on smoking cessation initiated: No Hx Alcohol Use: No Drug/Substance Use Hx: No Substance Use Type: None Hx Substance Use Treatment: No *Physical Exam - Vital Signs Last Vital Signs Temp Pulse Resp BP Pulse Ox 99.2 F 75 16 129/46 L 92 L 03/18/19 10:00 03/18/19 10:00 03/18/19 10:00 03/18/19 10:00 03/18/19 10:00 ED Treatment Course - LABORATORY CBC & Chemistry Diagram: 03/20/19 07:05 03/20/19 07:05 Discharge - Discharge Information Problems reviewed: Yes Clinical Impression/Diagnosis: Lower extremity cellulitis Qualifiers: Laterality: right Qualified Code(s): L03.115 - Cellulitis of right lower limb Condition: Guarded - Admission Yes - Follow up/Referral - Patient Discharge Instructions - Post Discharge Activity
[2019-03-18] MEDS ORDERED: CEFTRIAXONE 2 GM/100 ML BAG IVPB ONE (10:51)
[2019-03-18] MEDS ORDERED: VANCOMYCIN 1 GRAM (PRE-DOCKED) 1,000 MG/250 ML BAG IVPB ONE (10:52)
--- NOTE | 2019-03-18 11:20 | PDOC ---
Documentation entered by Madelin Diaz SCRIBE, acting as scribe for Kaye Avalos DO. Kaye Avalos, DO: This documentation has been prepared by the Emily mccullough Nirvannie, SCRIBE, under my direction and personally reviewed by me in its entirety. I confirm that the documentation accurately reflects all work, treatment, procedures, and medical decision making performed by me. Attending Attestation - Resident Resident Name: Katia Mathews - ED Attending Attestation I have performed the following: I have examined & evaluated the patient, The case was reviewed & discussed with the resident, I agree w/resident's findings & plan, Exceptions are as noted - HPI HPI: 03/18/19 11:24 The patient is a 64 year old female, with a significant past medical history of CHF, COPD (on 2L at home), CKD, seizures,DANY, IDDM, SLE, HTN, morbid obesity, and recent discharge from [facility] for Cellulitis (03/03-03/06) who presents to the emergency department via EMS from [facility] with 4 days of bilateral lower extremity pain. As per patient and [place] records, she was recently discharged from [facility] to [facility] on IV vancomycin (BID) and Ceftriaxone (2g/day) and started a new physical therapy regimen 5 days ago. She notes since then she has been experiencing persistent pain to the lower extremity and she can only move the lower extremities with rubber bands. While in the ED, patient has erythema and swelling from the mid calf to the mid ankle on the right and swelling to the mid-ankle on the left. Patient is unaware if her cellulitis has progressed secondary to being unable to see her lower extremities. Patient recently had a negative lower extremity DVT USS. She denies recent fevers, chills, headache or dizziness. She denies recent nausea, vomiting, diarrhea or constipation. She denies recent dysuria, frequency, urgency or hematuria. She denies recent chest pain or shortness of breath. Allergies: PCN, Gabapentin, and dilantin Surgical history: Cholecystectomy, Gastric band, hip replacement, and right total knee replacement. Social history: Nonsmoker. Denies EtOH use and recreational drug use. Primary Care Physician: Dr. Hernandez Orthopedist: Dr. Angulo - Physicial Exam PE: 03/18/19 11:24 Constitutional: Awake, alert, oriented. No acute distress. Head: Normocephalic. Atraumatic Eyes: PERRL. EOMI. Conjunctivae are not pale. ENT: Mucous membranes are moist and intact. Posterior pharynx without exudates or erythema. Uvula midline. Neck: Supple. Full ROM. No lymphadenopathy. Cardiovascular: Regular rate. Regular rhythm. S1, S2 regular. Distal pulses are 2+ and symmetric. Pulmonary/Chest: No evidence of respiratory distress. Clear to auscultation bilaterally No wheezing, rales or rhonchi. Abdominal: Soft and non-distended. There is no tenderness. No rebound, guarding or rigidity. No organomegaly. No palpable masses. Good bowel sounds. Back: No CVA tenderness. Musculoskeletal: +RLE: Erythema and swelling from the mid-calf to the mid ankle. +LLE: Erythema and swelling to the mid ankle. No cyanosis. No clubbing. No calf tenderness. Radial/pedal pulses are intact and 2+ bilaterally Skin: Skin is warm and dry. No petechiae. No purpura. Neurological: Alert and oriented to person, place, and time. Cranial nerves II -XII are grossly intact. Normal speech. Strength is grossly symmetric. No sensory deficits. Psychiatric: Good eye contact. Normal interaction, affect and behavior. - Medical Decision Making 03/18/19 10:53 a/p: 64yo female with b/l LE pain and redness -pt currently on vanco and rocephin for le cellulitis -pt states worsening pain since tuesday after PT -had an ultrasound 03/15 that was neg for dvt -pt states using devices to move her legs -pt unsure if the redness has worsened or not -will send labs, cultures, ultrasound -will discuss with ortho and pmd pending labs 03/18/19 11:31 cxr clear 03/18/19 15:23 dvt study neg 03/18/19 15:23 call placed to pts surgeon given worsening cellulitis despite iv abx 03/18/19 16:[address] Angulo - [phone] pending call back 03/18/19 16:40 case discussed with Eric Sharma who accepts pt to service requests pt consult and consult to Dr. Ibrahim Discharge - Discharge Information Problems reviewed: Yes Clinical Impression/Diagnosis: Lower extremity cellulitis Condition: Guarded - Admission Yes - Follow up/Referral Referrals: Goran Hernandez MD [Primary Care Provider] - - Patient Discharge Instructions - Post Discharge Activity Heart Score/ECG Review - ECG Intrepretation Comment:: 03/18/19 12:50 sinus at 75, nl axis, lvh, nl interval, no acute st/t wave findings
[2019-03-18] MEDS ORDERED: ACETAMINOPHEN 1000 MG/100 ML VIAL (NON FORMULARY) IVPB ONE (11:21)
[2019-03-18 11:43] LABS: BASO % 1.7 % (0-2.0); EOS % 1.1 % (0-4.5); HEMATOCRIT 32.4 % (32.4-45.2); HEMOGLOBIN 10.3 GM/dL (10.7-15.3); LYMPH % 25.5 % (8-40); MCH 29.2 pg (25.7-33.7); MCHC 31.8 g/dl (32.0-36.0); MEAN CELL VOLUME 91.8 fl (80-96); MEAN PLT VOLUME 8.4 fl (7.5-11.1); NEUT % 55.7 % (42.8-82.8); PLATELET COUNT 313 K/MM3 (134-434); RBC 3.53 M/mm3 (3.60-5.2); RDW 15.8 % (11.6-15.6); WHITE BLOOD COUNT 11.4 K/mm3 (4.0-10.0)
[2019-03-18 11:55] LABS: INR 1.26 (0.83-1.09); PROTHROMBIN TIME (PATIENT) 14.9 SEC (9.7-13.0)
[2019-03-18 12:07] LABS: BILIRUBIN,TOTAL 0.3 mg/dL (0.2-1); BLOOD UREA NITROGEN 13.5 mg/dL (7-18); CALCIUM 9.1 mg/dL (8.5-10.1); CREATININE 1.1 mg/dL (0.55-1.3); POTASSIUM 3.9 mmol/L (3.5-5.1)
[2019-03-18] MEDS ORDERED: HYDROmorphone HCL CARPU-JECT 2 MG/1 ML DISP.SYRIN IVPUSH ONE (12:08)
[2019-03-18] MEDS ORDERED: HYDROmorphone HCl 2 MG/ML VIAL ONE (12:26)
--- NOTE | 2019-03-18 14:47 | EKG ---
Test Reason : Blood Pressure : / mmHG Vent. Rate : 075 BPM Atrial Rate : 075 BPM P-R Int : 174 ms QRS Dur : 078 ms QT Int : 410 ms P-R-T Axes : 037 -18 011 degrees QTc Int : 457 ms NORMAL SINUS RHYTHM VOLTAGE CRITERIA FOR LEFT VENTRICULAR HYPERTROPHY NONSPECIFIC ST ABNORMALITY ABNORMAL ECG Confirmed by MD MARGARET, MARIBEL ([id number]) on 03/18/2019 2:47:10 PM Referred By: Confirmed By:MARIBEL ROBLES MD
[2019-03-18] MEDS ORDERED: oxyCODONE HCL 5 MG TABLET PO ONE (16:25)
[2019-03-18 16:44] LABS: ERYTHROCYTE SEDIMENTATION RATE 82 mm/hr (0-30)
[2019-03-18] MEDS ORDERED: oxyCODONE HCL 5 MG TABLET ONE ×2 (16:44→21:39)
[2019-03-18] MEDS ORDERED: BENZOCAINE MM PRN (18:00)
[2019-03-18] MEDS ORDERED: [UNRECOGNIZED DRUG - OTHER] MM PRN (18:00)
[2019-03-18] MEDS ORDERED: MENTHOL MM PRN (18:00)
[2019-03-18] MEDS: INSULIN (NOVOLOG) ASPART 100 UNITS/ML 10ML VIAL SQ SCH (21:34)
[2019-03-18] MEDS: glipiZIDE 10 MG TABLET (FP) PO SCH (21:34)
[2019-03-18] MEDS: oxyCODONE HCL 5 MG TABLET PO PRN (21:50)
[2019-03-18] MEDS ORDERED: VANCOMYCIN 1 GM in D5W (PRE-DOCKED) 1,000 MG/250 ML IVPB SCH (22:00)
[2019-03-18] MEDS ORDERED: PRAMIPEXOLE DIHYDROCHLORIDE 0.5 MG TABLET PO SCH (22:00)
[2019-03-18] MEDS ORDERED: TOPIRAMATE 100 MG TABLET PO SCH (22:00)
[2019-03-18] MEDS: BUDESONIDE/FORMETEROL FUMARATE 160/4.5 mcg INHALER IH SCH (23:07)
[2019-03-18] MEDS: HYDROXYCHLOROQUINE SO4 200 MG TABLET (FP) PO SCH (23:07)
[2019-03-18] MEDS: INSULIN (LEVEMIR) 100 UNITS/ML UNITS SQ SCH (23:08)
[2019-03-18] MEDS: BACLOFEN 10 MG TABLET (FP) PO SCH (23:08)
[2019-03-18] MEDS: MONTELUKAST NA 10 MG TABLET PO SCH (23:08)
[2019-03-18] MEDS: HEPARIN NA (PORCINE) 5,000 UNITS/ML 1ML VIAL SQ SCH (23:08)
[2019-03-19 00:18] VITALS: BMI 49.0
[2019-03-19] MEDS ORDERED: glipiZIDE 5 MG TABLET (FP) ONE ×2 (06:06→16:12)
[2019-03-19] MEDS: INSULIN (LEVEMIR) 100 UNITS/ML UNITS SQ SCH ×2 (06:17→22:59)
[2019-03-19] MEDS: glipiZIDE 10 MG TABLET (FP) PO SCH ×2 (06:17→16:43)
[2019-03-19] MEDS: LEVOTHYROXINE NA 50 MCG TABLET (FP) PO SCH (06:18)
[2019-03-19] MEDS: BACLOFEN 10 MG TABLET (FP) PO SCH ×2 (06:18→13:04)
[2019-03-19] MEDS: INSULIN (NOVOLOG) ASPART 100 UNITS/ML 10ML VIAL SQ SCH ×2 (06:19→16:44)
[2019-03-19] MEDS ORDERED: BENZOCAINE/MENTH/CETYLPYRD CL 1 EACH LOZENGE MM PRN (08:15)
--- NOTE | 2019-03-19 09:10 | CON.ORTH ---
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 No: Alzheimer's Cardio/Vascular: Yes: CAD (denies h/o PCI), HTN, Hyperlipdemia Pulmonary: Yes: Asthma, COPD, O2 Dependent, Sleep Apnea, Other (uses NIPPV at night) ...LMP: 03/18/01 ...: No Rheumatology: Yes: Lupus Endocrine: Yes: Diabetes Mellitus - Past Surgical History Past Surgical History: Yes: Cataract Removal, Cholecystectomy, , Joint Replacement (Right total hip replacement), Tonsillectomy - Alcohol/Substance Use Hx Alcohol Use: No History of Substance Use: reports: None - Smoking History Smoking history: Former smoker Have you smoked in the past 12 months: No Aproximately how many cigarettes per day: 10 If you are a former smoker, when did you quit?: 22 yrs ago - Social History Usual Living Arrangement: With Spouse ADL: Support Services History of Recent Travel: No Home Medications - Allergies Allergies/Adverse Reactions: Allergies Allergy/AdvReac Type Severity Reaction Status Date / Time gabapentin [From Neurontin] Allergy PALPITATIONS, Verified 03/02/19 14:41 PASSES OUT Penicillins Allergy TONGUE Verified 03/02/19 14:41 Swelling phenytoin sodium Allergy diarrhea/vo Verified 03/02/19 14:41 [From Dilantin] miting phenytoin sodium extended Allergy Verified 03/02/19 14:41 [From Dilantin] theophylline [Theophylline] Allergy diarrhea,SE Verified 03/02/19 14:41 IZURES fresh garlic Allergy Uncoded 03/02/19 14:41 - Home Medications Home Medications: Ambulatory Orders Baclofen 10 mg PO TID 03/18/19 Benzocaine/Menthol [Cepacol Sore Throat Lozenge] 1 each MM PRN 03/18/19 Budesonide/Formeterol Fumarate [SYMBICORT 160/4.5mcg -] 2 inh PO BID 03/18/19 Ceftriaxone [Rocephin 2Gm Ivpb (Pre-Docked)] 2 gm IVPB DAILY 03/18/19 Diltiazem Cd [Cardizem Cd -] 120 mg PO DAILY 03/18/19 Folic Acid 2 mg PO DAILY 03/18/19 Furosemide 80 mg PO DAILY 03/18/19 Glipizide 10 mg PO BID 03/18/19 Heparin Sodium,Porcine/Pf [Heparin IV Flush 10 Unit/ml Sy] 5 ml IV BID 03/18/19 Hydroxychloroquine So4 [Plaquenil -] 200 mg PO BID 03/18/19 Insulin Aspart [Novolog] 10 unit SQ BID 03/18/19 Insulin Detemir [Levemir Flextouch] 20 unit SQ BID 03/18/19 Levothyroxine Sodium [Levoxyl] 50 mcg PO DAILY 03/18/19 Linaclotide [Linzess] 145 mcg PO DAILY 03/18/19 Losartan Potassium 100 mg PO DAILY 03/18/19 Methotrexate Sodium [Methotrexate] 10 mg PO WEEKLY 03/18/19 Mineral Oil/Hydrophil Petrolat [Dermaphor Ointment] 118 gm TP BID 03/18/19 Montelukast Na [Singulair -] 10 mg PO HS 03/18/19 Multivitamin [Multiple Vitamins] 1 each PO DAILY 03/18/19 [place]-3 Acid Ethyl Esters [Lovaza -] 2,000 mg PO DAILY 03/18/19 Oxycodone HCl 10 mg PO PRN 03/18/19 Pramipexole Di-HCl [Mirapex] 0.5 mg PO HS 03/18/19 Sertraline HCl [Zoloft] 100 mg PO DAILY 03/18/19 Sodium Chloride [Sodium Chloride -] 5 ml IV BID 03/18/19 Topiramate [Topamax] 200 mg PO BID 03/18/19 Umeclidinium [place] [Incruse Ellipta] 62.5 mcg IH DAILY 03/18/19 Vancomycin 1 Gram (Pre-Docked) [Vancomycin (Pre-Docked)] 1,000 mg IVPB BID 03/18 predniSONE [Deltasone -] 5 mg PO 03/18/19 Physical Exam for Ortho Vital Signs: Vital Signs Temperature 98.9 F 03/19/19 05:45 Pulse Rate 88 03/19/19 05:45 Respiratory Rate 20 03/19/19 05:45 Blood Pressure 136/60 03/19/19 05:45 O2 Sat by Pulse Oximetry (%) 99 03/18/19 23:00 Constitutional: Yes: Obese Labs: CBC, BMP 03/18/19 11:24 03/18/19 11:24 INR, PTT INR 1.26 (0.83-1.09) H 03/18/19 11:24 - Lower Extremity Knee: Yes: Right, Limited ROM, Pain, Swelling, Other (well healed surgical incision, + swelling, no erythema, unable to perform active rom due to pain, passively can flex to 20 degrees, calf soft, nt, nvi) Imaging - Results Ultrasound: Report Reviewed Assessment/Plan 64yo F with PMH of OA s/p right total knee replacement 02/08/19 at [facility], SLE, HTN, HLD, IDDM2, hypothyroidism, who presents with increasing bilateral lower extremity pain, swelling, and redness since Tuesday evening. Her pain is so severe ("like I'm being hit with a sledgehammer) that she has been unable to walk since Tuesday. She was treated for cellulitis during the hospital course for the replacement with vancomycin and ceftriaxone x1 week. She reports a fever of 100.6 earlier today. Also has chills and nausea. States she has not eaten anything since yesterday but is feeling like she can eat now. She has no history of DVT or clotting disorders. No chest pain or shortness of breath. a/p b/l LE cellulitis s/p right tkr approx 5 weeks ago Abx as per ID PT eval wbat pain control Pt will need to f/u surgeon who performed TKR d/w Dr. Blake
[2019-03-19] MEDS ORDERED: PT OWN MED DRAWER 7, Y5N ONE ×2 (09:52→12:31)
[2019-03-19] MEDS ORDERED: DEXTROSE 5%-WATER 100 ML IVPB ONE (09:53)
[2019-03-19] MEDS: SERTRALINE HCL 50 MG TABLET (FP) PO SCH (09:57)
[2019-03-19] MEDS: HYDROXYCHLOROQUINE SO4 200 MG TABLET (FP) PO SCH (09:57)
[2019-03-19] MEDS: MULTIVITAMINS (DAILY MVI) TABLET (FP) PO SCH (09:57)
[2019-03-19] MEDS: oxyCODONE HCL 5 MG TABLET PO PRN ×3 (09:57→22:55)
[2019-03-19] MEDS: predniSONE 5 MG TABLET (UD) PO SCH (09:57)
[2019-03-19] MEDS: FOLIC ACID 1 MG TABLET (FP) PO SCH (09:57)
[2019-03-19] MEDS: FUROSEMIDE 40 MG TABLET (FP) PO SCH (09:57)
[2019-03-19] MEDS: HEPARIN NA (PORCINE) 5,000 UNITS/ML 1ML VIAL SQ SCH ×2 (09:59→22:59)
[2019-03-19] MEDS: LOSARTAN POTASSIUM 50 MG TABLET (FP) PO SCH (09:59)
[2019-03-19] MEDS: CEFTRIAXONE 2 GM in DEXTROSE 5%-WATER 100 ML IVPB SCH (09:59)
[2019-03-19] MEDS ORDERED: PATIENT'S OWN MEDICATION (NON-FORMULARY) (Ceftriaxone 2 GM) IVPB SCH (10:00)
[2019-03-19] MEDS ORDERED: PATIENT'S OWN MEDICATION (NON-FORMULARY) (Linaclotide [Linzess] 145 MCG) PO SCH (10:00)
--- NOTE | 2019-03-19 12:18 | HP ---
Admitting History and Physical - Admission Chief Complaint: BLLE pain History of Present Illness: 64yo F with PMH of OA s/p right total knee replacement 02/08/19 at [facility], SLE, HTN, HLD, IDDM2, hypothyroidism, who presents with increasing bilateral lower extremity pain, swelling, and redness since Tuesday evening. Her pain is so severe ("like I'm being hit with a sledgehammer) that she has been unable to walk since Tuesday. She was treated for cellulitis during the hospital course for the replacement with vancomycin and ceftriaxone x1 week. She reports a fever of 100.6 earlier today. Also has chills and nausea. States she has not eaten anything since yesterday but is feeling like she can eat now. She has no history of DVT or clotting disorders. No chest or shortness of breath. 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 No: Alzheimer's Cardiovascular: Yes: CAD (denies h/o PCI), HTN, Hyperlipdemia Pulmonary: Yes: Asthma, COPD, O2 Dependent, Sleep Apnea, Other (uses NIPPV at night) ...LMP: 03/18/01 ...: No Heme/Onc: Yes: Anemia Rheumatology: Yes: Lupus Endocrine: Yes: Diabetes Mellitus - Past Surgical History Past Surgical History: Yes: Cataract Removal, Cholecystectomy, , Joint Replacement (Right total hip replacement), Tonsillectomy - Smoking History Smoking history: Former smoker Have you smoked in the past 12 months: No Aproximately how many cigarettes per day: 10 If you are a former smoker, when did you quit?: 22 yrs ago - Alcohol/Substance Use Hx Alcohol Use: No History of Substance Use: reports: None - Social History ADL: Support Services History of Recent Travel: No Home Medications - Allergies Allergies/Adverse Reactions: Allergies Allergy/AdvReac Type Severity Reaction Status Date / Time gabapentin [From Neurontin] Allergy PALPITATIONS, Verified 03/02/19 14:41 PASSES OUT Penicillins Allergy TONGUE Verified 03/02/19 14:41 Swelling phenytoin sodium Allergy diarrhea/vo Verified 03/02/19 14:41 [From Dilantin] miting phenytoin sodium extended Allergy Verified 03/02/19 14:41 [From Dilantin] theophylline [Theophylline] Allergy diarrhea,SE Verified 03/02/19 14:41 IZURES fresh garlic Allergy Uncoded 03/02/19 14:41 - Home Medications Home Medications: Ambulatory Orders Baclofen 10 mg PO TID 03/18/19 Benzocaine/Menthol [Cepacol Sore Throat Lozenge] 1 each MM PRN 03/18/19 Budesonide/Formeterol Fumarate [SYMBICORT 160/4.5mcg -] 2 inh PO BID 03/18/19 Ceftriaxone [Rocephin 2Gm Ivpb (Pre-Docked)] 2 gm IVPB DAILY 03/18/19 Diltiazem Cd [Cardizem Cd -] 120 mg PO DAILY 03/18/19 Folic Acid 2 mg PO DAILY 03/18/19 Furosemide 80 mg PO DAILY 03/18/19 Glipizide 10 mg PO BID 03/18/19 Heparin Sodium,Porcine/Pf [Heparin IV Flush 10 Unit/ml Sy] 5 ml IV BID 03/18/19 Hydroxychloroquine So4 [Plaquenil -] 200 mg PO BID 03/18/19 Insulin Aspart [Novolog] 10 unit SQ BID 03/18/19 Insulin Detemir [Levemir Flextouch] 20 unit SQ BID 03/18/19 Levothyroxine Sodium [Levoxyl] 50 mcg PO DAILY 03/18/19 Linaclotide [Linzess] 145 mcg PO DAILY 03/18/19 Losartan Potassium 100 mg PO DAILY 03/18/19 Methotrexate Sodium [Methotrexate] 10 mg PO WEEKLY 03/18/19 Mineral Oil/Hydrophil Petrolat [Dermaphor Ointment] 118 gm TP BID 03/18/19 Montelukast Na [Singulair -] 10 mg PO HS 03/18/19 Multivitamin [Multiple Vitamins] 1 each PO DAILY 03/18/19 [place]-3 Acid Ethyl Esters [Lovaza -] 2,000 mg PO DAILY 03/18/19 Oxycodone HCl 10 mg PO PRN 03/18/19 Pramipexole Di-HCl [Mirapex] 0.5 mg PO HS 03/18/19 Sertraline HCl [Zoloft] 100 mg PO DAILY 03/18/19 Sodium Chloride [Sodium Chloride -] 5 ml IV BID 03/18/19 Topiramate [Topamax] 200 mg PO BID 03/18/19 Umeclidinium [place] [Incruse Ellipta] 62.5 mcg IH DAILY 03/18/19 Vancomycin 1 Gram (Pre-Docked) [Vancomycin (Pre-Docked)] 1,000 mg IVPB BID 03/18 predniSONE [Deltasone -] 5 mg PO 03/18/19 Physical Examination Vital Signs: Vital Signs Temperature 98.9 F 03/19/19 05:45 Pulse Rate 88 03/19/19 05:45 Respiratory Rate 20 03/19/19 05:45 Blood Pressure 136/60 03/19/19 05:45 O2 Sat by Pulse Oximetry (%) 99 03/18/19 23:00 Constitutional: Yes: Well Nourished, No Distress, Calm, Obese Cardiovascular: Yes: Regular Rate and Rhythm Respiratory: Yes: Regular, On Nasal O2 Gastrointestinal: Yes: Normal Bowel Sounds, Soft, Abdomen, Obese Musculoskeletal: Yes: Muscle Pain (BLLE), Muscle Weakness (BLLE) Edema: LLE: 1+, RLE: 1+ Peripheral Pulses WNL: Yes Neurological: Yes: Alert, Oriented, Weakness (BLLE) Psychiatric: Yes: Alert, Oriented Labs: CBC, BMP 03/18/19 11:24 03/18/19 11:24 Problem List - Problems (1) Lower extremity weakness Assessment/Plan: -Neurology consult -MRI L spine -Check B12 -Thyroid unremarkable -Physical therapy Problems reviewed: Yes Code(s): R29.898 - OTH SYMPTOMS AND SIGNS INVOLVING THE MUSCULOSKELETAL SYSTEM (2) COPD (chronic obstructive pulmonary disease) Assessment/Plan: -nasal O2 -bronchodilators -Pulmonary consult Problems reviewed: Yes Code(s): J44.9 - CHRONIC OBSTRUCTIVE PULMONARY DISEASE, UNSPECIFIED Qualifiers: COPD type: chronic bronchitis (3) Obesity Problems reviewed: Yes Code(s): E66.9 - OBESITY, UNSPECIFIED Qualifiers: Obesity type: unspecified obesity type (4) Swelling of both lower extremities Assessment/Plan: -No erythema -warm to touch -Cultures pending -Orthopedic consult -U/S venous doppler negative Problems reviewed: Yes Code(s): M79.89 - OTHER SPECIFIED SOFT TISSUE DISORDERS (5) Fever Assessment/Plan: -Check Rapid influenza -Cultures pending -Leukocytosis -acetaminophen PRN -CXR negative -ID consult -IV abx as per ID Problems reviewed: Yes Code(s): R50.9 - FEVER, UNSPECIFIED Assessment/Plan see problem list
[2019-03-19] MEDS: OMEGA-3 ACID ETHYL ESTERS (FATTY-ACIDS) 1 GM CAPSULE (FP) PO SCH (13:00)
[2019-03-19] MEDS: TOPIRAMATE 200 MG TABLET (FP) PO SCH ×2 (13:01→22:57)
[2019-03-19] MEDS: ACETAMINOPHEN 325 MG TABLET (FP) PO PRN (13:02)
[2019-03-19 13:03] LABS: BASO % 0.7 % (0-2.0); EOS % 0.5 % (0-4.5); HEMATOCRIT 31.9 % (32.4-45.2); HEMOGLOBIN 10.3 GM/dL (10.7-15.3); LYMPH % 16.6 % (8-40); MCHC 32.2 g/dl (32.0-36.0); MEAN PLT VOLUME 7.9 fl (7.5-11.1); MONO % 15.5 % (3.8-10.2); NEUT % 66.7 % (42.8-82.8); PLATELET COUNT 344 K/MM3 (134-434); RBC 3.55 M/mm3 (3.60-5.2); RDW 16.1 % (11.6-15.6); WHITE BLOOD COUNT 12.6 K/mm3 (4.0-10.0)
[2019-03-19 13:40] LABS: ALBUMIN 2.8 g/dl (3.4-5.0); BILIRUBIN,TOTAL 0.4 mg/dL (0.2-1); BLOOD UREA NITROGEN 10.6 mg/dL (7-18); CALCIUM 9.1 mg/dL (8.5-10.1); TOT PROT 7.2 g/dl (6.4-8.2)
--- NOTE | 2019-03-19 13:55 | PN ---
Progress Note (short form) - Note Progress Note: ID consult dictated imp/reccd 64 yo female with DM, SLE, s/p RIght TKE 02/[address] Angulo at [facility], she was discharged on 02/24 on po doxycycline. She was seen in our ER and transferred back to [facility] on 03/03 wuth RLE pain and erythema. she was discharged on 03/06 with a Picc line and iv vancomycin and rocephin until 04/03 now reports severe leg pains since Tuesday- both legs, reports intermittent fevers and chills constipation agrees with me that her legs do not appear red at present, reports they are both "hot" and painful unable to move them - unclear if this is due to pain picc line site without erythema no evidence of cellulitis am not sure what accounts for her bilateral leg pain would defer to ortho at this time continue rocephin/vanco per her [facility] doctors to complete on 04/03 should f/u with them (ortho/ID) will check vanco level would get neurology consultation and MRI her LS spine- she c/o low back pain d/w hospitalist who will contact her outpt orthopaedist as well may need rheum input as well regarding her SLE Problem List - Problems (1) Leg pain, bilateral Code(s): M79.604 - PAIN IN RIGHT LEG; M79.605 - PAIN IN LEFT LEG (2) History of total right knee replacement (TKR) Code(s): Z96.651 - PRESENCE OF RIGHT ARTIFICIAL KNEE JOINT (3) Cellulitis Code(s): L03.90 - CELLULITIS, UNSPECIFIED (4) Lupus Code(s): M32.9 - SYSTEMIC LUPUS ERYTHEMATOSUS, UNSPECIFIED
[2019-03-19 15:18] LABS: URIC ACID 5.5 mg/dL (2.6-7.2)
--- NOTE | 2019-03-19 15:50 | CONS ---
INFECTIOUS DISEASE CONSULTATION DATE OF CONSULTATION: DATE OF DICTATION: 03/19/2019 HISTORY: This is a 64-year-old woman who [facility] leg [facility]. She has a history of a right total knee replacement done February 08 at [facility]. She was [birth year] on doxycycline. She was taking her doxycycline and then presented to our ER on the . She was sent from physical therapy because she had erythema and redness of her right leg. She was transferred from our ER back to [facility] and discharged on the on vancomycin and Rocephin until April 03 via PICC line. She now states that since Tuesday she has had severe pain in both her legs. She says it is so bad she has not been able to walk. She reported that she feels like she has fevers and chills. She reports both legs have increased pain. It feels like there are pins and needles in them and that she has been unable to ambulate. She reports she is constipated as well. PAST MEDICAL HISTORY: Notable for lupus, hypertension, hyperlipidemia, type 2 diabetes, hypothyroidism. She has a history as well of seizures and syncope, coronary artery disease, hypertension, hyperlipidemia, asthma, COPD, sleep apnea , anemia. SURGICAL HISTORY: Notable for cataract removal, cholecystectomy, C section, the recent right total knee replacement February 08. She has had a right total hip replacement in the past and tonsillectomy. SOCIAL HISTORY: She is a former smoker. She quit 22 years ago. No history of alcohol or substance use. There are no recent travel. ALLERGIES: She is allergic to GABAPENTIN, PENICILLIN, DILANTIN, and THEOPHYLLINE. MEDICATIONS: [facility] include ceftriaxone and vancomycin until April 04. She is on baclofen, Cepacol, diltiazem, folic acid, furosemide, Glipizide, subcutaneous heparin, Plaquenil, insulin, Levemir, levothyroxine, losartan, methotrexate, Singulair, oxycodone, Mirapex, Zoloft, Topamax, and prednisone 5 mg daily. REVIEW OF SYSTEMS: As per HPI. She has no shortness of breath or cough. PHYSICAL EXAMINATION: Vital Signs: Her maximum temperature is 99.4, current temperature is 98.9, pulse of 88, blood pressure is 136/60, respiratory rate is 20. She weighs 121 kg. HEENT: She is normocephalic. Her eyes are anicteric. Neck: Supple. Lungs: Clear to auscultation. Heart: Regular rate and rhythm. Abdomen: Soft, nontender. Extremities: Notable for the fact that she has a well-healed right total knee incision. There are no signs of any erythema. Unable to bend either knee due to pain. She has no real edema of the legs as well. DIAGNOSTIC DATA: Her white count is 12.6, hemoglobin 10.3, platelets are 344. Her sed rate is 82. Her CRP is 10.2. Her chemistries are normal. Blood cultures have been sent and are negative at 24 hours. Duplex of the leg is negative for DVT of both legs. In summary, this is a 64-year-old woman who reports severe leg pain since Tuesday in both her legs, intermittent fevers and chills have not really been documented, constipation. She agrees with me that her legs are not red. Reports they are hot and painful. Her PICC line is without any erythema. I do not see any evidence of cellulitis. I am not sure what accounts for her leg pain. Would defer to Orthopaedics at this time. Would continue Rocephin and vancomycin per her [facility] doctors to complete on April 03. Should follow up with them. We will check a vancomycin level for completeness. DIALLO BELL M.D. [id number] MTDD
[2019-03-19] MEDS: BUDESONIDE/FORMETEROL FUMARATE 160/4.5 mcg INHALER IH SCH ×2 (16:42→22:59)
[2019-03-19] MEDS: TIOTROPIUM BROMIDE 2.5 MCG (SPIRIVA) RESPIMAT INHALER IH SCH (16:42)
--- NOTE | 2019-03-19 18:20 | CONSULT ---
Consult - text type - Consultation Consultation Note: NEUROLOGY CONSULTATION is greatly appreciated: This 64 yo RH, woman is well-known to me for more than 20 years. PMH of DM, Chol, depression. Long history of seizures and pseudoseizures, migraine headaches and restless Limbs syndrome. Fascinating h/o Tegretol-induced Lupus (SLE). Tapered off Tegretol with normalization of JUAN CARLOS's (recently Neg for few years) and improvement in SLE interstitial pneumonitis (previously required O2 at home, now D/C'ed). Migraines controlled on Topiramate 200 BID. Chronic diffuse leg pain and paresthesiae improved on Pramipexole and Gabapentin. Now s/p R TKR with possible post-op infection and increasing, diffuse pains in BOTH legs associated with increasing immobilization. LE Ultrasound in ER Neg for DVT WBC=12.6 K. ESR= 82 mm/hr ANA LILIA: Obese. Distal pulses intact. Diffuse tenderness both legs and both feet to soft touch. NEURO: MS/speech: Normal CN's II-XII: normal Motor: No drift or tremor. Refuses to move legs but toe extension 5/ 5 B/L Near constant, writhing, asynchronous, non-rhythmic mov'ts of toes and feet (R>L). Toes downgoing. Coord: No FTN dystaxia Sensory: Normal vib both feet. IMP: Probably a normal exam Severe Restless Limbs Syndrome (RLS) exacerbated by recent Sx Migraine headaches. SUGGEST: Continue Rx infection as per ID. Check Fe++, TIBC, Ferritin levels Increase pramipexole to 0.5 mg PO TID Continue Gabapentin and Topiramate. Agree with hydrocodone 5 mg PO q 6 H PRN D/C Baclofen. Hold treatments for "Lupus" as these were D/C'ed by Rheum (Nancy Cannon) in the past. Most importantly- Pt. MUST MOVE! Mobilize OO Bed to chair and gait with walker and PT once cleared by ortho. Thank you very much, Hugo Block MD
[2019-03-19] MEDS: MONTELUKAST NA 10 MG TABLET PO SCH (22:56)
[2019-03-19] MEDS: PRAMIPEXOLE DIHYDROCHLORIDE 0.5 MG TABLET PO SCH (22:57)
[2019-03-19] MEDS: VANCOMYCIN 1 GM in D5W (PRE-DOCKED) 1,000 MG/250 ML IVPB SCH (22:59)
[2019-03-20] MEDS ORDERED: glipiZIDE 5 MG TABLET (FP) ONE ×2 (06:42→16:53)
[2019-03-20] MEDS: LEVOTHYROXINE NA 50 MCG TABLET (FP) PO SCH (06:47)
[2019-03-20] MEDS: oxyCODONE HCL 5 MG TABLET PO PRN ×2 (06:47→17:00)
[2019-03-20] MEDS: INSULIN (NOVOLOG) ASPART 100 UNITS/ML 10ML VIAL SQ SCH ×2 (06:48→17:09)
[2019-03-20] MEDS: INSULIN (LEVEMIR) 100 UNITS/ML UNITS SQ SCH ×2 (06:48→22:03)
[2019-03-20] MEDS: glipiZIDE 10 MG TABLET (FP) PO SCH ×2 (06:48→17:01)
[2019-03-20] MEDS: PRAMIPEXOLE DIHYDROCHLORIDE 0.5 MG TABLET PO SCH ×3 (06:49→22:01)
[2019-03-20 08:28] LABS: BASO % 0.8 % (0-2.0); EOS % 1.2 % (0-4.5); HEMATOCRIT 30.4 % (32.4-45.2); HEMOGLOBIN 9.9 GM/dL (10.7-15.3); LYMPH % 24.4 % (8-40); MCH 29.6 pg (25.7-33.7); MCHC 32.6 g/dl (32.0-36.0); MEAN CELL VOLUME 90.6 fl (80-96); MEAN PLT VOLUME 8.2 fl (7.5-11.1); NEUT % 60.6 % (42.8-82.8); PLATELET COUNT 342 K/MM3 (134-434); RBC 3.35 M/mm3 (3.60-5.2); RDW 15.9 % (11.6-15.6)
[2019-03-20] MEDS ORDERED: DEXTROSE 5%-WATER 100 ML IVPB ONE (09:18)
[2019-03-20 09:27] LABS: ALBUMIN 2.7 g/dl (3.4-5.0); BILIRUBIN,TOTAL 0.9 mg/dL (0.2-1); CREATININE 1.2 mg/dL (0.55-1.3); POTASSIUM 4.1 mmol/L (3.5-5.1); TOT PROT 6.8 g/dl (6.4-8.2)
[2019-03-20] MEDS: MULTIVITAMINS (DAILY MVI) TABLET (FP) PO SCH (09:29)
[2019-03-20] MEDS: SERTRALINE HCL 50 MG TABLET (FP) PO SCH (09:29)
[2019-03-20] MEDS: FOLIC ACID 1 MG TABLET (FP) PO SCH (09:29)
[2019-03-20] MEDS: predniSONE 5 MG TABLET (UD) PO SCH (09:30)
[2019-03-20] MEDS: LOSARTAN POTASSIUM 50 MG TABLET (FP) PO SCH (09:30)
[2019-03-20] MEDS: FUROSEMIDE 40 MG TABLET (FP) PO SCH (09:30)
[2019-03-20] MEDS: CEFTRIAXONE 2 GM in DEXTROSE 5%-WATER 100 ML IVPB SCH (09:31)
[2019-03-20] MEDS: TOPIRAMATE 200 MG TABLET (FP) PO SCH ×2 (09:31→22:02)
[2019-03-20] MEDS: OMEGA-3 ACID ETHYL ESTERS (FATTY-ACIDS) 1 GM CAPSULE (FP) PO SCH (09:31)
[2019-03-20 09:33] LABS: ERYTHROCYTE SEDIMENTATION RATE 98 mm/hr (0-30)
[2019-03-20] MEDS: BUDESONIDE/FORMETEROL FUMARATE 160/4.5 mcg INHALER IH SCH ×2 (09:42→22:05)
[2019-03-20] MEDS: TIOTROPIUM BROMIDE 2.5 MCG (SPIRIVA) RESPIMAT INHALER IH SCH (09:42)
[2019-03-20] MEDS: HEPARIN NA (PORCINE) 5,000 UNITS/ML 1ML VIAL SQ SCH ×2 (10:53→22:00)
[2019-03-20] MEDS: VANCOMYCIN 1 GM in D5W (PRE-DOCKED) 1,000 MG/250 ML IVPB SCH ×2 (10:54→22:02)
--- NOTE | 2019-03-20 11:16 | CON.PULM ---
Consult Consult Specialty:: PULM/CCM Referred by:: Hospitalist Reason for Consultation:: COPD / OSAS - History of Present Illness Chief Complaint: Bilateral leg pain History of Present Illness: 64 F, COPD on supplemental O2 (mostly at HS) Moderate OSAS (20.6 events per hour with severe O2 desaturation) on Auto-PAP (follows with Dr Gibbs), OA ( Right TKR 02/08/19 at [facility]), SLE, HTN, HLD, IDDM2, and hypothyroidism. Admitted via the ER due to increasing bilateral lower extremity pain, swelling, and redness since Tuesday. Denies CP or SOB. No travel history or sick contacts. No hemoptysis. She has not been on her PAP device due to recent hospitalization and Rehab. She does report significant Excessive Daytime Sleepiness (EDS) since she has not been using her PAP device. - History Source History Provided By: Patient Limitations to Obtaining History: No Limitations - Past Medical History WINTER INTERN: Yes: Seizure, Syncope. No: Alzheimer's Cardio/Vascular: Yes: CAD (denies h/o PCI), HTN, Hyperlipdemia Pulmonary: Yes: Asthma, COPD, O2 Dependent, Sleep Apnea, Other (uses NIPPV at night) ...LMP: 03/18/01 ...: No Rheumatology: Yes: Lupus Endocrine: Yes: Diabetes Mellitus - Past Surgical History Past Surgical History: Yes: Cataract Removal, Cholecystectomy, , Joint Replacement (Right total hip replacement), Tonsillectomy - Alcohol/Substance Use Hx Alcohol Use: No History of Substance Use: reports: None - Smoking History Smoking history: Former smoker Have you smoked in the past 12 months: No Aproximately how many cigarettes per day: 10 If you are a former smoker, when did you quit?: 22 yrs ago - Social History Usual Living Arrangement: With Spouse ADL: Support Services History of Recent Travel: No Home Medications - Allergies Allergies/Adverse Reactions: Allergies Allergy/AdvReac Type Severity Reaction Status Date / Time gabapentin [From Neurontin] Allergy PALPITATIONS, Verified 03/02/19 14:41 PASSES OUT Penicillins Allergy TONGUE Verified 03/02/19 14:41 Swelling phenytoin sodium Allergy diarrhea/vo Verified 03/02/19 14:41 [From Dilantin] miting phenytoin sodium extended Allergy Verified 03/02/19 14:41 [From Dilantin] theophylline [Theophylline] Allergy diarrhea,SE Verified 03/02/19 14:41 IZURES fresh garlic Allergy Uncoded 03/02/19 14:41 - Home Medications Home Medications: Ambulatory Orders Baclofen 10 mg PO TID 03/18/19 Benzocaine/Menthol [Cepacol Sore Throat Lozenge] 1 each MM PRN 03/18/19 Budesonide/Formeterol Fumarate [SYMBICORT 160/4.5mcg -] 2 inh PO BID 03/18/19 Ceftriaxone [Rocephin 2Gm Ivpb (Pre-Docked)] 2 gm IVPB DAILY 03/18/19 Diltiazem Cd [Cardizem Cd -] 120 mg PO DAILY 03/18/19 Folic Acid 2 mg PO DAILY 03/18/19 Furosemide 80 mg PO DAILY 03/18/19 Glipizide 10 mg PO BID 03/18/19 Heparin Sodium,Porcine/Pf [Heparin IV Flush 10 Unit/ml Sy] 5 ml IV BID 03/18/19 Hydroxychloroquine So4 [Plaquenil -] 200 mg PO BID 03/18/19 Insulin Aspart [Novolog] 10 unit SQ BID 03/18/19 Insulin Detemir [Levemir Flextouch] 20 unit SQ BID 03/18/19 Levothyroxine Sodium [Levoxyl] 50 mcg PO DAILY 03/18/19 Linaclotide [Linzess] 145 mcg PO DAILY 03/18/19 Losartan Potassium 100 mg PO DAILY 03/18/19 Methotrexate Sodium [Methotrexate] 10 mg PO WEEKLY 03/18/19 Mineral Oil/Hydrophil Petrolat [Dermaphor Ointment] 118 gm TP BID 03/18/19 Montelukast Na [Singulair -] 10 mg PO HS 03/18/19 Multivitamin [Multiple Vitamins] 1 each PO DAILY 03/18/19 [place]-3 Acid Ethyl Esters [Lovaza -] 2,000 mg PO DAILY 03/18/19 Oxycodone HCl 10 mg PO PRN 03/18/19 Pramipexole Di-HCl [Mirapex] 0.5 mg PO HS 03/18/19 Sertraline HCl [Zoloft] 100 mg PO DAILY 03/18/19 Sodium Chloride [Sodium Chloride -] 5 ml IV BID 03/18/19 Topiramate [Topamax] 200 mg PO BID 03/18/19 Umeclidinium [place] [Incruse Ellipta] 62.5 mcg IH DAILY 03/18/19 Vancomycin 1 Gram (Pre-Docked) [Vancomycin (Pre-Docked)] 1,000 mg IVPB BID 03/18 predniSONE [Deltasone -] 5 mg PO 03/18/19 Review of Systems - Review of Systems Constitutional: reports: Lethargy, Malaise. denies: Chills, Fever, Night Sweats , Unintentional Wgt. Loss Eyes: reports: No Symptoms HENT: reports: No Symptoms Neck: reports: No Symptoms Cardiovascular: reports: Edema. denies: Chest Pain, Palpitations, Shortness of Breath Respiratory: reports: Snoring. denies: Cough, Exercise Intolerance, Hemoptysis , Orthopnea, PND, SOB, SOB on Exertion, Wheezing Gastrointestinal: reports: No Symptoms Genitourinary: reports: No Symptoms Breasts: reports: No Symptoms Reported Musculoskeletal: reports: Joint Pain Integumentary: reports: Change in Color, Erythema Neurological: reports: No Symptoms Endocrine: reports: No Symptoms Hematology/Lymphatic: reports: No Symptoms Psychiatric: reports: No Symptoms Physical Exam Vital Sings: Vital Signs Temperature 99.1 F 03/20/19 08:59 Pulse Rate 86 03/20/19 08:59 Respiratory Rate 20 03/20/19 08:59 Blood Pressure 123/54 L 03/20/19 08:59 O2 Sat by Pulse Oximetry (%) 99 03/19/19 09:00 Constitutional: Yes: No Distress, Calm, Obese Eyes: Yes: Conjunctiva Clear, EOM Intact HENT: Yes: Atraumatic, Normocephalic Neck: Yes: Supple, Trachea Midline Cardiovascular: Yes: Regular Rate and Rhythm Respiratory: Yes: CTA Bilaterally, Diminished, On Nasal O2. No: Rales, Rhonchi , SOB, SOB on Exertion, Stridor, Tachypnea, Wheezes ...Inspection: Yes: WNL ...Clubbing: No Gastrointestinal: Yes: Normal Bowel Sounds, Soft, Abdomen, Obese Renal/: Yes: WNL Musculoskeletal: Yes: WNL Extremities: Yes: Erythema Edema: Yes Peripheral Pulses WNL: Yes Integumentary: Yes: Erythema Neurological: Yes: Alert, Oriented ...Motor Strength: WNL Psychiatric: Yes: WNL, Alert, Oriented Labs: CBC, BMP 03/20/19 07:05 03/20/19 07:05 Imaging - Results Chest X-ray: Report Reviewed, Image Reviewed Problem List - Problems (1) Lower extremity cellulitis Code(s): L03.119 - CELLULITIS OF UNSPECIFIED PART OF LIMB (2) Diabetes mellitus Code(s): E11.9 - TYPE 2 DIABETES MELLITUS WITHOUT COMPLICATIONS Qualifiers: Diabetes mellitus type: type 2 Diabetes mellitus complication status: with unspecified complications (3) Hypothyroid Code(s): E03.9 - HYPOTHYROIDISM, UNSPECIFIED Qualifiers: Hypothyroidism type: acquired Qualified Code(s): E03.9 - Hypothyroidism, unspecified (4) Lupus Code(s): M32.9 - SYSTEMIC LUPUS ERYTHEMATOSUS, UNSPECIFIED (5) DANY on CPAP Code(s): G47.33 - OBSTRUCTIVE SLEEP APNEA (ADULT) (PEDIATRIC); Z99.89 - DEPENDENCE ON OTHER ENABLING MACHINES AND DEVICES (6) Swelling of both lower extremities Code(s): M79.89 - OTHER SPECIFIED SOFT TISSUE DISORDERS (7) CAD (coronary artery disease) Code(s): I25.10 - ATHSCL HEART DISEASE OF [place] CORONARY ARTERY W/O ANG PCTRS (8) CHF (congestive heart failure) Code(s): I50.9 - HEART FAILURE, UNSPECIFIED Qualifiers: Heart failure type: other Qualified Code(s): I50.9 - Heart failure, unspecified (9) CKD (chronic kidney disease) stage 3, GFR 30-59 ml/min Code(s): N18.3 - CHRONIC KIDNEY DISEASE, STAGE 3 (MODERATE) (10) COPD (chronic obstructive pulmonary disease) Code(s): J44.9 - CHRONIC OBSTRUCTIVE PULMONARY DISEASE, UNSPECIFIED Qualifiers: COPD type: COPD with acute exacerbation Qualified Code(s): J44.1 - Chronic obstructive pulmonary disease with (acute) exacerbation (11) Diabetic peripheral neuropathy Code(s): E11.42 - TYPE 2 DIABETES MELLITUS WITH DIABETIC POLYNEUROPATHY (12) Hypertension Code(s): I10 - ESSENTIAL (PRIMARY) HYPERTENSION Qualifiers: Hypertension type: essential hypertension Qualified Code(s): I10 - Essential (primary) hypertension (13) Hypothyroidism Code(s): E03.9 - HYPOTHYROIDISM, UNSPECIFIED Qualifiers: Hypothyroidism type: unspecified Qualified Code(s): E03.9 - Hypothyroidism , unspecified (14) Morbid obesity Code(s): E66.01 - MORBID (SEVERE) OBESITY DUE TO EXCESS CALORIES (15) SLE (systemic lupus erythematosus) Code(s): M32.9 - SYSTEMIC LUPUS ERYTHEMATOSUS, UNSPECIFIED (16) Seizure disorder Code(s): G40.909 - EPILEPSY, UNSP, NOT INTRACTABLE, WITHOUT STATUS EPILEPTICUS (17) Sleep apnea, obstructive Code(s): G47.33 - OBSTRUCTIVE SLEEP APNEA (ADULT) (PEDIATRIC) (18) Type 2 diabetes mellitus Code(s): E11.9 - TYPE 2 DIABETES MELLITUS WITHOUT COMPLICATIONS Qualifiers: Diabetes mellitus fci insulin use: without fci use Diabetes mellitus complication status: with kidney complications Diabetes mellitus complication detail: with chronic kidney disease Chronic kidney disease stage : unspecified stage Qualified Code(s): E11.22 - Type 2 diabetes mellitus with diabetic chronic kidney disease Assessment/Plan Will order CPAP @ 10 cm H2O and adjust based on patient tolerance and response Supplemental O2 Advair BID No indication for systemic steroids at this time No smoking ABX per ID VTE prophylaxis Will follow Thank you. Dr Gibson
--- NOTE | 2019-03-20 11:21 | PN ---
Progress Note, Physician Chief Complaint: BLLE weakness/pain fever History of Present Illness: NAD c/o generalized pain seen by neurology + ortho Lumbar MRI pending for BLLE weakness Uric acid normal Blood Cultures pending - Current Medication List Current Medications: Active Medications Acetaminophen (Tylenol -) 650 mg PO Q4H PRN PRN Reason: PAIN Last Admin: 03/19/19 13:02 Dose: 650 mg Benzocaine/Menthol (Cepacol Lozenge -) 1 each MM PRN PRN PRN Reason: SORE THROAT Budesonide/Formoterol Fumarate (Symbicort 160/4.5mcg -) 2 puff IH BID [facility] Last Admin: 03/20/19 09:42 Dose: 2 puff Diltiazem HCl (Cardizem Cd -) 120 mg PO DAILY [facility] Last Admin: 03/20/19 09:30 Dose: 120 mg Folic Acid (Folic Acid -) 2 mg PO DAILY [facility] Last Admin: 03/20/19 09:29 Dose: 2 mg Furosemide (Lasix -) 80 mg PO DAILY [facility] Last Admin: 03/20/19 09:30 Dose: 80 mg Glipizide (Glucotrol -) 10 mg PO BIDAC [facility] Last Admin: 03/20/19 06:48 Dose: Not Given Heparin Sodium (Porcine) (Heparin -) 5,000 unit SQ BID [facility] Last Admin: 03/20/19 10:53 Dose: 5,000 unit Ceftriaxone Sodium 2 gm/ (Dextrose) 100 mls @ 200 mls/hr IVPB DAILY [facility] Last Admin: 03/20/19 09:31 Dose: 200 mls/hr Insulin Aspart (Novolog Vial) 10 units SQ BIDAC [facility] Last Admin: 03/20/19 06:48 Dose: Not Given Insulin Detemir (Levemir Vial) 20 units SQ BID@0700,2200 [facility] Last Admin: 03/20/19 06:48 Dose: Not Given Levothyroxine Sodium (Synthroid -) 50 mcg PO DAILY@0700 [facility] Last Admin: 03/20/19 06:47 Dose: 50 mcg Losartan Potassium (Cozaar -) 100 mg PO DAILY [facility] Last Admin: 03/20/19 09:30 Dose: 100 mg Montelukast Sodium (Singulair -) 10 mg PO HS [facility] Last Admin: 03/19/19 22:56 Dose: 10 mg Multivitamins/Minerals/Vitamin C (Tab-A-Vit -) 1 tab PO DAILY [facility] Last Admin: 03/20/19 09:29 Dose: 1 tab Non-Formulary Medication (Linaclotide [Linzess]) 145 mcg PO DAILY [facility] [id number] Ethyl Esters (Lovaza -) 2 gm PO DAILY [facility] Last Admin: 03/20/19 09:31 Dose: 2 gm Oxycodone HCl (Roxicodone -) 10 mg PO Q6H PRN PRN Reason: PAIN LEVEL 6-10 Last Admin: 03/20/19 06:47 Dose: 10 mg Pramipexole Dihydrochloride (Mirapex -) 0.5 mg PO TID [facility] Last Admin: 03/20/19 06:49 Dose: 0.5 mg Prednisone (Deltasone -) 5 mg PO DAILY [facility] Last Admin: 03/20/19 09:30 Dose: 5 mg Sertraline HCl (Zoloft -) 100 mg PO DAILY [facility] Last Admin: 03/20/19 09:29 Dose: 100 mg Tiotropium [place] (Spiriva Respimat) 2 puff IH DAILY [facility] Last Admin: 03/20/19 09:42 Dose: 2 puff Topiramate (Topamax -) 200 mg PO BID [facility] Last Admin: 03/20/19 09:31 Dose: 200 mg Vancomycin HCl (Vancomycin (Pre-Docked)) 1,000 mg IVPB BID [facility] Last Admin: 03/20/19 10:54 Dose: 1,000 mg - Objective Vital Signs: Vital Signs Temperature 99.1 F 03/20/19 08:59 Pulse Rate 86 03/20/19 08:59 Respiratory Rate 20 03/20/19 08:59 Blood Pressure 123/54 L 03/20/19 08:59 O2 Sat by Pulse Oximetry (%) 99 03/19/19 09:00 Constitutional: Yes: Well Nourished, Calm, Mild Distress (pain), Obese Cardiovascular: Yes: Regular Rate and Rhythm Respiratory: Yes: Regular Gastrointestinal: Yes: Normal Bowel Sounds, Soft, Abdomen, Obese Genitourinary: Yes: WNL Musculoskeletal: Yes: Muscle Weakness, Other (generalized pain) Edema: Yes Edema: LLE: 1+, RLE: 1+ Peripheral Pulses WNL: Yes Neurological: Yes: Alert, Oriented Psychiatric: Yes: Alert, Oriented Labs: CBC, BMP 03/20/19 07:05 03/20/19 07:05 INR, PTT INR 1.26 (0.83-1.09) H 03/18/19 11:24 Problem List - Problems (1) Lower extremity weakness Assessment/Plan: -Neurology consult -MRI L spine pending -Check B12 -Thyroid unremarkable -Physical therapy Problems reviewed: Yes Code(s): R29.898 - OTH SYMPTOMS AND SIGNS INVOLVING THE MUSCULOSKELETAL SYSTEM (2) COPD (chronic obstructive pulmonary disease) Assessment/Plan: -nasal O2 -bronchodilators -Pulmonary consult Problems reviewed: Yes Code(s): J44.9 - CHRONIC OBSTRUCTIVE PULMONARY DISEASE, UNSPECIFIED (3) Obesity Problems reviewed: Yes Code(s): E66.9 - OBESITY, UNSPECIFIED (4) Swelling of both lower extremities Assessment/Plan: -No erythema -warm to touch -Cultures pending -Orthopedic consult -U/S venous doppler negative Problems reviewed: Yes Code(s): M79.89 - OTHER SPECIFIED SOFT TISSUE DISORDERS (5) Fever Assessment/Plan: -Check Rapid influenza -Cultures pending -Leukocytosis -acetaminophen PRN -CXR negative -ID consult -IV abx as per ID Problems reviewed: Yes Code(s): R50.9 - FEVER, UNSPECIFIED Assessment/Plan see problem list
[2019-03-20] MEDS ORDERED: PT OWN MED DRAWER 7, Y5N ONE ×2 (14:18→21:44)
--- NOTE | 2019-03-20 17:05 | PN ---
Progress Note (short form) - Note Progress Note: reports some decrease in pain was able to sit up and eat lunch, has not walked Vital Signs Period Temp Pulse Resp BP Sys/Oconnell Pulse Ox Last 24 Hr 98.4 F-99.1 F 72-86 - 102-150/46-60 95 cor-rrr lungs decreased bs at bases abd soft,nt ext no erythema, incision is well healed picc line site without erythema CBC, BMP 03/20/19 07:05 03/20/19 07:05 Microbiology 03/18/19 11:24 Blood - Peripheral Venous Blood Culture - Preliminary NO GROWTH OBTAINED AFTER 48 HOURS, INCUBATION TO CONTINUE FOR 3 DAYS. 03/18/19 11:24 Blood - Peripheral Venous Blood Culture - Preliminary NO GROWTH OBTAINED AFTER 48 HOURS, INCUBATION TO CONTINUE FOR 3 DAYS. a/p no evidence of cellulitis am not sure what accounts for her bilateral leg pain would defer to ortho and neurology at this time continue rocephin/vanco per her [facility] doctors to complete antibiotics on d/w dr chappell (ID) will check vanco level in am
[2019-03-20] MEDS: MONTELUKAST NA 10 MG TABLET PO SCH (22:00)
[2019-03-21] MEDS: oxyCODONE HCL 5 MG TABLET PO PRN (06:02)
[2019-03-21] MEDS: LEVOTHYROXINE NA 50 MCG TABLET (FP) PO SCH (06:03)
[2019-03-21] MEDS: glipiZIDE 10 MG TABLET (FP) PO SCH ×2 (06:04→17:13)
[2019-03-21] MEDS: PRAMIPEXOLE DIHYDROCHLORIDE 0.5 MG TABLET PO SCH ×2 (06:04→13:01)
[2019-03-21] MEDS: INSULIN (LEVEMIR) 100 UNITS/ML UNITS SQ SCH ×2 (06:32→21:57)
[2019-03-21] MEDS: INSULIN (NOVOLOG) ASPART 100 UNITS/ML 10ML VIAL SQ SCH ×2 (06:32→17:12)
[2019-03-21] MEDS ORDERED: glipiZIDE 5 MG TABLET (FP) ONE ×2 (06:34→17:12)
--- NOTE | 2019-03-21 08:20 | PN ---
Progress Note (short form) - Note Progress Note: Breathing feels OK this AM. Used CPAP from 10 pm to about 6 am. Feels dry (no humudification possible). No CP or SOB. Intake & Output 03/18/19 03/19/19 03/20/19 03/21/19 23:59 23:59 23:59 23:59 Intake Total 1000 1810 Output Total 650 Balance 350 1810 Weight 268 lb Last Vital Signs Temp Pulse Resp BP Pulse Ox 98.4 F 81 20 126/86 97 03/21/19 06:00 03/21/19 06:00 03/21/19 06:00 03/21/19 06:00 03/20/19 20:54 Active Medications Acetaminophen (Tylenol -) 650 mg PO Q4H PRN PRN Reason: PAIN Last Admin: 03/19/19 13:02 Dose: 650 mg Benzocaine/Menthol (Cepacol Lozenge -) 1 each MM PRN PRN PRN Reason: SORE THROAT Budesonide/Formoterol Fumarate (Symbicort 160/4.5mcg -) 2 puff IH BID [facility] Last Admin: 03/20/19 22:05 Dose: 2 puff Diltiazem HCl (Cardizem Cd -) 120 mg PO DAILY [facility] Last Admin: 03/20/19 09:30 Dose: 120 mg Folic Acid (Folic Acid -) 2 mg PO DAILY [facility] Last Admin: 03/20/19 09:29 Dose: 2 mg Furosemide (Lasix -) 80 mg PO DAILY [facility] Last Admin: 03/20/19 09:30 Dose: 80 mg Glipizide (Glucotrol -) 10 mg PO BIDAC [facility] Last Admin: 03/21/19 06:04 Dose: 10 mg Heparin Sodium (Porcine) (Heparin -) 5,000 unit SQ BID [facility] Last Admin: 03/20/19 22:00 Dose: 5,000 unit Ceftriaxone Sodium 2 gm/ (Dextrose) 100 mls @ 200 mls/hr IVPB DAILY [facility] Last Admin: 03/20/19 09:31 Dose: 200 mls/hr Insulin Aspart (Novolog Vial) 10 units SQ BIDAC [facility] Last Admin: 03/21/19 06:32 Dose: Not Given Insulin Detemir (Levemir Vial) 20 units SQ BID@0700,2200 [facility] Last Admin: 03/21/19 06:32 Dose: Not Given Levothyroxine Sodium (Synthroid -) 50 mcg PO DAILY@0700 [facility] Last Admin: 03/21/19 06:03 Dose: 50 mcg Lorazepam (Ativan Injection -) 1 mg IVPUSH ONCE ONE Stop: 03/20/19 18:53 Losartan Potassium (Cozaar -) 100 mg PO DAILY [facility] Last Admin: 03/20/19 09:30 Dose: 100 mg Montelukast Sodium (Singulair -) 10 mg PO HS [facility] Last Admin: 03/20/19 22:00 Dose: 10 mg Multivitamins/Minerals/Vitamin C (Tab-A-Vit -) 1 tab PO DAILY [facility] Last Admin: 03/20/19 09:29 Dose: 1 tab Non-Formulary Medication (Linaclotide [Linzess]) 145 mcg PO DAILY [facility] [id number] Ethyl Esters (Lovaza -) 2 gm PO DAILY [facility] Last Admin: 03/20/19 09:31 Dose: 2 gm Oxycodone HCl (Roxicodone -) 10 mg PO Q6H PRN PRN Reason: PAIN LEVEL 6-10 Last Admin: 03/21/19 06:02 Dose: 10 mg Polysaccharide Iron Complex (Niferex-150 -) 150 mg PO DAILY [facility] Pramipexole Dihydrochloride (Mirapex -) 0.5 mg PO TID [facility] Last Admin: 03/21/19 06:04 Dose: 0.5 mg Prednisone (Deltasone -) 5 mg PO DAILY [facility] Last Admin: 03/20/19 09:30 Dose: 5 mg Sertraline HCl (Zoloft -) 100 mg PO DAILY [facility] Last Admin: 03/20/19 09:29 Dose: 100 mg Tiotropium [place] (Spiriva Respimat) 2 puff IH DAILY [facility] Last Admin: 03/20/19 09:42 Dose: 2 puff Topiramate (Topamax -) 200 mg PO BID [facility] Last Admin: 03/20/19 22:02 Dose: 200 mg Vancomycin HCl (Vancomycin (Pre-Docked)) 1,000 mg IVPB BID [facility] Last Admin: 03/20/19 22:02 Dose: 1,000 mg Constitutional: Yes: No Distress, Calm, Obese Eyes: Yes: Conjunctiva Clear, EOM Intact HENT: Yes: Atraumatic, Normocephalic Neck: Yes: Supple, Trachea Midline Cardiovascular: Yes: Regular Rate and Rhythm Respiratory: Yes: CTA Bilaterally, Diminished, On Nasal O2. No: Rales, Rhonchi , SOB, SOB on Exertion, Stridor, Tachypnea, Wheezes ...Inspection: Yes: WNL ...Clubbing: No Gastrointestinal: Yes: Normal Bowel Sounds, Soft, Abdomen, Obese Renal/: Yes: WNL Musculoskeletal: Yes: WNL Extremities: Yes: Erythema Edema: Yes Peripheral Pulses WNL: Yes Integumentary: Yes: Erythema Neurological: Yes: Alert, Oriented ...Motor Strength: WNL Psychiatric: Yes: WNL, Alert, Oriented Labs: Laboratory Results - last 24 hr 03/20/19 03/20/19 03/20/19 07:05 07:05 11:22 WBC 10.0 RBC 3.35 L Hgb 9.9 L Hct 30.4 L MCV 90.6 MCH 29.6 MCHC 32.6 RDW 15.9 H Plt Count 342 MPV 8.2 Absolute Neuts (auto) 6.0 Neutrophils % 60.6 Lymphocytes % 24.4 D Monocytes % 13.0 H Eosinophils % 1.2 D Basophils % 0.8 Nucleated RBC % 0 ESR 98 H Sodium 140 Potassium 4.1 Chloride 105 Carbon Dioxide 27 Anion Gap 8 BUN 14.0 Creatinine 1.2 Est GFR (CKD-EPI)AfAm 55.70 Est GFR (CKD-EPI)NonAf 48.06 POC Glucometer 146 Random Glucose 62 L Calcium 9.0 Iron 14 L TIBC 216 L Iron Saturation 6 L Unsaturated IBC 202 Ferritin 266.1 Total Bilirubin 0.9 AST 25 ALT 25 Alkaline Phosphatase 101 Creatine Kinase 53 C-Reactive Protein 17.2 H Total Protein 6.8 Albumin 2.7 L Vitamin B12 547 03/20/19 03/20/19 03/21/19 16:58 21:58 05:41 WBC RBC Hgb Hct MCV MCH MCHC RDW Plt Count MPV Absolute Neuts (auto) Neutrophils % Lymphocytes % Monocytes % Eosinophils % Basophils % Nucleated RBC % ESR Sodium Potassium Chloride Carbon Dioxide Anion Gap BUN Creatinine Est GFR (CKD-EPI)AfAm Est GFR (CKD-EPI)NonAf POC Glucometer 161 85 82 Random Glucose Calcium Iron TIBC Iron Saturation Unsaturated IBC Ferritin Total Bilirubin AST ALT Alkaline Phosphatase Creatine Kinase C-Reactive Protein Total Protein Albumin Vitamin B12 Problem List - Problems (1) Lower extremity cellulitis Code(s): L03.119 - CELLULITIS OF UNSPECIFIED PART OF LIMB (2) Diabetes mellitus Code(s): E11.9 - TYPE 2 DIABETES MELLITUS WITHOUT COMPLICATIONS Qualifiers: Diabetes mellitus type: type 2 Diabetes mellitus complication status: with unspecified complications (3) Hypothyroid Code(s): E03.9 - HYPOTHYROIDISM, UNSPECIFIED Qualifiers: Hypothyroidism type: acquired Qualified Code(s): E03.9 - Hypothyroidism, unspecified (4) Lupus Code(s): M32.9 - SYSTEMIC LUPUS ERYTHEMATOSUS, UNSPECIFIED (5) DANY on CPAP Code(s): G47.33 - OBSTRUCTIVE SLEEP APNEA (ADULT) (PEDIATRIC); Z99.89 - DEPENDENCE ON OTHER ENABLING MACHINES AND DEVICES (6) Swelling of both lower extremities Code(s): M79.89 - OTHER SPECIFIED SOFT TISSUE DISORDERS (7) CAD (coronary artery disease) Code(s): I25.10 - ATHSCL HEART DISEASE OF [place] CORONARY ARTERY W/O ANG PCTRS (8) CHF (congestive heart failure) Code(s): I50.9 - HEART FAILURE, UNSPECIFIED Qualifiers: Heart failure type: other Qualified Code(s): I50.9 - Heart failure, unspecified (9) CKD (chronic kidney disease) stage 3, GFR 30-59 ml/min Code(s): N18.3 - CHRONIC KIDNEY DISEASE, STAGE 3 (MODERATE) (10) COPD (chronic obstructive pulmonary disease) Code(s): J44.9 - CHRONIC OBSTRUCTIVE PULMONARY DISEASE, UNSPECIFIED Qualifiers: COPD type: COPD with acute exacerbation Qualified Code(s): J44.1 - Chronic obstructive pulmonary disease with (acute) exacerbation (11) Diabetic peripheral neuropathy Code(s): E11.42 - TYPE 2 DIABETES MELLITUS WITH DIABETIC POLYNEUROPATHY (12) Hypertension Code(s): I10 - ESSENTIAL (PRIMARY) HYPERTENSION Qualifiers: Hypertension type: essential hypertension Qualified Code(s): I10 - Essential (primary) hypertension (13) Hypothyroidism Code(s): E03.9 - HYPOTHYROIDISM, UNSPECIFIED Qualifiers: Hypothyroidism type: unspecified Qualified Code(s): E03.9 - Hypothyroidism , unspecified (14) Morbid obesity Code(s): E66.01 - MORBID (SEVERE) OBESITY DUE TO EXCESS CALORIES (15) SLE (systemic lupus erythematosus) Code(s): M32.9 - SYSTEMIC LUPUS ERYTHEMATOSUS, UNSPECIFIED (16) Seizure disorder Code(s): G40.909 - EPILEPSY, UNSP, NOT INTRACTABLE, WITHOUT STATUS EPILEPTICUS (17) Sleep apnea, obstructive Code(s): G47.33 - OBSTRUCTIVE SLEEP APNEA (ADULT) (PEDIATRIC) (18) Type 2 diabetes mellitus Code(s): E11.9 - TYPE 2 DIABETES MELLITUS WITHOUT COMPLICATIONS Qualifiers: Diabetes mellitus [employer]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: without retirement use Diabetes mellitus complication status: with kidney complications Diabetes mellitus complication detail: with chronic kidney disease Chronic kidney disease stage : unspecified stage Qualified Code(s): E11.22 - Type 2 diabetes mellitus with diabetic chronic kidney disease Assessment/Plan CPAP @ 10 cm H2O Supplemental O2 as needed Advair BID No indication for systemic steroids at this time No smoking ABX per ID VTE prophylaxis Dr Gibson Problem List - Problems (1) Lower extremity cellulitis Code(s): L03.119 - CELLULITIS OF UNSPECIFIED PART OF LIMB (2) Diabetes mellitus Code(s): E11.9 - TYPE 2 DIABETES MELLITUS WITHOUT COMPLICATIONS Qualifiers: Diabetes mellitus type: type 2 Diabetes mellitus complication status: with unspecified complications (3) Hypothyroid Code(s): E03.9 - HYPOTHYROIDISM, UNSPECIFIED Qualifiers: Hypothyroidism type: acquired Qualified Code(s): E03.9 - Hypothyroidism, unspecified (4) Lupus Code(s): M32.9 - SYSTEMIC LUPUS ERYTHEMATOSUS, UNSPECIFIED (5) DANY on CPAP Code(s): G47.33 - OBSTRUCTIVE SLEEP APNEA (ADULT) (PEDIATRIC); Z99.89 - DEPENDENCE ON OTHER ENABLING MACHINES AND DEVICES (6) Swelling of both lower extremities Code(s): M79.89 - OTHER SPECIFIED SOFT TISSUE DISORDERS (7) CAD (coronary artery disease) Code(s): I25.10 - ATHSCL HEART DISEASE OF [place] CORONARY ARTERY W/O ANG PCTRS (8) CHF (congestive heart failure) Code(s): I50.9 - HEART FAILURE, UNSPECIFIED Qualifiers: Heart failure type: other Qualified Code(s): I50.9 - Heart failure, unspecified (9) CKD (chronic kidney disease) stage 3, GFR 30-59 ml/min Code(s): N18.3 - CHRONIC KIDNEY DISEASE, STAGE 3 (MODERATE) (10) COPD (chronic obstructive pulmonary disease) Code(s): J44.9 - CHRONIC OBSTRUCTIVE PULMONARY DISEASE, UNSPECIFIED Qualifiers: COPD type: COPD with acute exacerbation Qualified Code(s): J44.1 - Chronic obstructive pulmonary disease with (acute) exacerbation (11) Diabetic peripheral neuropathy Code(s): E11.42 - TYPE 2 DIABETES MELLITUS WITH DIABETIC POLYNEUROPATHY (12) Hypertension Code(s): I10 - ESSENTIAL (PRIMARY) HYPERTENSION Qualifiers: Hypertension type: essential hypertension Qualified Code(s): I10 - Essential (primary) hypertension (13) Hypothyroidism Code(s): E03.9 - HYPOTHYROIDISM, UNSPECIFIED Qualifiers: Hypothyroidism type: unspecified Qualified Code(s): E03.9 - Hypothyroidism , unspecified (14) Morbid obesity Code(s): E66.01 - MORBID (SEVERE) OBESITY DUE TO EXCESS CALORIES (15) SLE (systemic lupus erythematosus) Code(s): M32.9 - SYSTEMIC LUPUS ERYTHEMATOSUS, UNSPECIFIED (16) Seizure disorder Code(s): G40.909 - EPILEPSY, UNSP, NOT INTRACTABLE, WITHOUT STATUS EPILEPTICUS (17) Sleep apnea, obstructive Code(s): G47.33 - OBSTRUCTIVE SLEEP APNEA (ADULT) (PEDIATRIC) (18) Type 2 diabetes mellitus Code(s): E11.9 - TYPE 2 DIABETES MELLITUS WITHOUT COMPLICATIONS Qualifiers: Diabetes mellitus [employer] 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
[2019-03-21 08:22] LABS: URINE APPEARANCE CLEAR; URINE BILIRUBIN NEGATIVE (NEGATIVE); URINE COLOR YELLOW; URINE GLUCOSE (UA) NEGATIVE (NEGATIVE); URINE KETONE NEGATIVE (NEGATIVE); URINE LEUK ESTERASE NEGATIVE (NEGATIVE); URINE NITRITE NEGATIVE (NEGATIVE); URINE PROTEIN NEGATIVE (NEGATIVE); URINE UROBILINOGEN 0.2 mg/dL (0.2-1.0)
[2019-03-21] MEDS ORDERED: DEXTROSE 5%-WATER 100 ML IVPB ONE (09:25)
[2019-03-21] MEDS ORDERED: PT OWN MED DRAWER 7, Y5N ONE ×3 (09:28→17:13)
[2019-03-21] MEDS: LOSARTAN POTASSIUM 50 MG TABLET (FP) PO SCH (09:51)
[2019-03-21] MEDS: FOLIC ACID 1 MG TABLET (FP) PO SCH (09:52)
[2019-03-21] MEDS: predniSONE 5 MG TABLET (UD) PO SCH (09:52)
[2019-03-21] MEDS: HEPARIN NA (PORCINE) 5,000 UNITS/ML 1ML VIAL SQ SCH ×2 (09:53→21:58)
[2019-03-21] MEDS: FUROSEMIDE 40 MG TABLET (FP) PO SCH (09:53)
[2019-03-21] MEDS: IRON POLYSACCHARIDES 150 MG CAPSULE PO SCH (09:54)
[2019-03-21] MEDS: OMEGA-3 ACID ETHYL ESTERS (FATTY-ACIDS) 1 GM CAPSULE (FP) PO SCH (09:54)
[2019-03-21] MEDS: CEFTRIAXONE 2 GM in DEXTROSE 5%-WATER 100 ML IVPB SCH (09:54)
[2019-03-21] MEDS: MULTIVITAMINS (DAILY MVI) TABLET (FP) PO SCH (09:55)
[2019-03-21] MEDS: TIOTROPIUM BROMIDE 2.5 MCG (SPIRIVA) RESPIMAT INHALER IH SCH (09:55)
[2019-03-21] MEDS: TOPIRAMATE 200 MG TABLET (FP) PO SCH ×2 (09:55→22:00)
[2019-03-21] MEDS: BUDESONIDE/FORMETEROL FUMARATE 160/4.5 mcg INHALER IH SCH ×2 (09:55→22:06)
[2019-03-21] MEDS: SERTRALINE HCL 50 MG TABLET (FP) PO SCH (09:56)
[2019-03-21] MEDS ORDERED: METHOTREXATE 2.5 MG TABLET PO SCH (10:00)
[2019-03-21] MEDS ORDERED: LORazepam 2 MG/ML SDV VIAL IVPUSH ONE (10:30)
--- NOTE | 2019-03-21 11:32 | PN ---
Progress Note, Physician Chief Complaint: BLLE weakness/pain fever History of Present Illness: NAD c/o generalized pain seen by neurology + ortho Lumbar MRI pending for BLLE weakness Uric acid normal Blood Cultures pending - Current Medication List Current Medications: Active Medications Acetaminophen (Tylenol -) 650 mg PO Q4H PRN PRN Reason: PAIN Last Admin: 03/19/19 13:02 Dose: 650 mg Benzocaine/Menthol (Cepacol Lozenge -) 1 each MM PRN PRN PRN Reason: SORE THROAT Budesonide/Formoterol Fumarate (Symbicort 160/4.5mcg -) 2 puff IH BID [facility] Last Admin: 03/21/19 09:55 Dose: 2 puff Diltiazem HCl (Cardizem Cd -) 120 mg PO DAILY [facility] Last Admin: 03/21/19 09:51 Dose: 120 mg Folic Acid (Folic Acid -) 2 mg PO DAILY [facility] Last Admin: 03/21/19 09:52 Dose: 2 mg Furosemide (Lasix -) 80 mg PO DAILY [facility] Last Admin: 03/21/19 09:53 Dose: 80 mg Glipizide (Glucotrol -) 10 mg PO BIDAC [facility] Last Admin: 03/21/19 06:04 Dose: 10 mg Heparin Sodium (Porcine) (Heparin -) 5,000 unit SQ BID [facility] Last Admin: 03/21/19 09:53 Dose: 5,000 unit Ceftriaxone Sodium 2 gm/ (Dextrose) 100 mls @ 200 mls/hr IVPB DAILY [facility] Last Admin: 03/21/19 09:54 Dose: 200 mls/hr Insulin Aspart (Novolog Vial) 10 units SQ BIDAC [facility] Last Admin: 03/21/19 06:32 Dose: Not Given Insulin Detemir (Levemir Vial) 20 units SQ BID@0700,2200 [facility] Last Admin: 03/21/19 06:32 Dose: Not Given Levothyroxine Sodium (Synthroid -) 50 mcg PO DAILY@0700 [facility] Last Admin: 03/21/19 06:03 Dose: 50 mcg Losartan Potassium (Cozaar -) 100 mg PO DAILY [facility] Last Admin: 03/21/19 09:51 Dose: 100 mg Montelukast Sodium (Singulair -) 10 mg PO HS [facility] Last Admin: 03/20/19 22:00 Dose: 10 mg Multivitamins/Minerals/Vitamin C (Tab-A-Vit -) 1 tab PO DAILY [facility] Last Admin: 03/21/19 09:55 Dose: 1 tab Non-Formulary Medication (Linaclotide [Linzess]) 145 mcg PO DAILY [facility] [id number] Ethyl Esters (Lovaza -) 2 gm PO DAILY [facility] Last Admin: 03/21/19 09:54 Dose: 2 gm Oxycodone HCl (Roxicodone -) 10 mg PO Q6H PRN PRN Reason: PAIN LEVEL 6-10 Last Admin: 03/21/19 06:02 Dose: 10 mg Polysaccharide Iron Complex (Niferex-150 -) 150 mg PO DAILY [facility] Last Admin: 03/21/19 09:54 Dose: 150 mg Pramipexole Dihydrochloride (Mirapex -) 0.5 mg PO TID [facility] Last Admin: 03/21/19 06:04 Dose: 0.5 mg Prednisone (Deltasone -) 5 mg PO DAILY [facility] Last Admin: 03/21/19 09:52 Dose: 5 mg Sertraline HCl (Zoloft -) 100 mg PO DAILY [facility] Last Admin: 03/21/19 09:56 Dose: 100 mg Tiotropium [place] (Spiriva Respimat) 2 puff IH DAILY [facility] Last Admin: 03/21/19 09:55 Dose: 2 puff Topiramate (Topamax -) 200 mg PO BID [facility] Last Admin: 03/21/19 09:55 Dose: 200 mg Vancomycin HCl (Vancomycin (Pre-Docked)) 1,000 mg IVPB BID [facility] Last Admin: 03/20/19 22:02 Dose: 1,000 mg - Objective Vital Signs: Vital Signs Temperature 98.1 F 03/21/19 10:00 Pulse Rate 77 03/21/19 10:00 Respiratory Rate 18 03/21/19 10:00 Blood Pressure 136/56 L 03/21/19 10:00 O2 Sat by Pulse Oximetry (%) 97 03/20/19 20:54 Constitutional: Yes: Well Nourished, No Distress, Calm, Obese Cardiovascular: Yes: Regular Rate and Rhythm Respiratory: Yes: Regular Gastrointestinal: Yes: Normal Bowel Sounds, Soft, Abdomen, Obese Genitourinary: Yes: WNL Musculoskeletal: Yes: Muscle Weakness Extremities: Yes: Other (BLLE severe pain) Edema: Yes Edema: LLE: 1+, RLE: 1+ Peripheral Pulses WNL: Yes Neurological: Yes: Alert, Oriented, Weakness (BLLE) Psychiatric: Yes: Alert, Oriented Labs: CBC, BMP 03/20/19 07:05 03/20/19 07:05 INR, PTT INR 1.26 (0.83-1.09) H 03/18/19 11:24 Problem List - Problems (1) Lower extremity weakness Assessment/Plan: -Neurology consult -MRI L spine pending -B12 normal -Thyroid unremarkable -Physical therapy -Awaiting rheumatology consult Problems reviewed: Yes Code(s): R29.898 - OTH SYMPTOMS AND SIGNS INVOLVING THE MUSCULOSKELETAL SYSTEM (2) COPD (chronic obstructive pulmonary disease) Assessment/Plan: -nasal O2 -bronchodilators -Pulmonary consult Problems reviewed: Yes Code(s): J44.9 - CHRONIC OBSTRUCTIVE PULMONARY DISEASE, UNSPECIFIED Qualifiers: COPD type: chronic bronchitis (3) Obesity Problems reviewed: Yes Code(s): E66.9 - OBESITY, UNSPECIFIED Qualifiers: Obesity type: unspecified obesity type (4) Swelling of both lower extremities Assessment/Plan: -No erythema -warm to touch -Cultures pending -Orthopedic consult -U/S venous doppler negative Problems reviewed: Yes Code(s): M79.89 - OTHER SPECIFIED SOFT TISSUE DISORDERS (5) Fever Assessment/Plan: -Rapid influenza negative -Cultures pending -Leukocytosis -acetaminophen PRN -CXR negative -ID consult -IV abx as per ID Problems reviewed: Yes Code(s): R50.9 - FEVER, UNSPECIFIED (6) Lupus Assessment/Plan: -ESR/CRP elevated -Rheumatology consult -Last dosage of methotrexate 8 mg on 02/28/19 Problems reviewed: Yes Code(s): M32.9 - SYSTEMIC LUPUS ERYTHEMATOSUS, UNSPECIFIED Assessment/Plan see problem list
[2019-03-21] MEDS: VANCOMYCIN 1 GM in D5W (PRE-DOCKED) 1,000 MG/250 ML IVPB SCH ×2 (13:01→21:59)
--- NOTE | 2019-03-21 16:01 | CONSULT ---
Consult Consult Specialty:: Rheumatology - History of Present Illness History of Present Illness: 64 y/o female with PMH of CHF, COPD, CKD, seizure disease, IDDM, HTN, morbid obesity, hypothyroidism and diagnosis of lupus. S/P right total knee replacement on 02/08/19 at [facility]. She was admitted at [facility] from to 03/06/19 for treatment of cellulitis and then discharged to [facility] on IV vancomycin and Ceftriaxone. Four days prior to admission she developed progressive pain in legs. Duplex US was negative for DVT. Lupus. The patient reports that she was diagnosed with lupus when she was in her 20s based on an abnormal laboratory test and apparently she was asymptomatic. She has been treated with Hydroxychloroquine for the last 30 years and Methotrexate 10 mg per week ( a low dose) for the last 20 years. She has been followed by Dr. Ya Cannon for the last 2 years, however her office is closed today. The patient reports she has pain in multiple joints in upper and lower limbs accompanied by 15 minutes morning stiffness., ccasional oral ulcers, hair loss now improving and questionable Raynauds phenomenon. Since admission on she had fever only on one occasion on 03/19 (100.4) and otherwise the temperature has been normal. Laboratory work-up from 01/19/19 (from this hospital) revealed creatinine 1.1, eGFR 62.3, ESR 25 and CRP 0.6. JUAN CARLOS 1:80 with speckled pattern, Anti-DNA ds negative and complement normal (C3: 154 and C4: 40). Work-up in this admission: CBC with WBC of 10.2, Hgb 9.9 and platelets 342. ESR 98 and CRP 17.2. Creatinine 1.2, eGFR 48 and liver function tests were normal. Urinalysis normal. - History Source History Provided By: Patient, Medical Record - Past Medical History [employer]CH[employer]: Yes: Seizure, Syncope. No: Alzheimer's Cardio/Vascular: Yes: CAD (denies h/o PCI), HTN, Hyperlipdemia Pulmonary: Yes: Asthma, COPD, O2 Dependent, Sleep Apnea, Other (uses NIPPV at night) ...LMP: 03/18/01 ...: No Rheumatology: Yes: Lupus Endocrine: Yes: Diabetes Mellitus - Past Surgical History Past Surgical History: Yes: Cataract Removal, Cholecystectomy, , Joint Replacement (Right total hip replacement), Tonsillectomy - Alcohol/Substance Use Hx Alcohol Use: No History of Substance Use: reports: None - Smoking History Smoking history: Unknown if ever smoked Have you smoked in the past 12 months: No Aproximately how many cigarettes per day: 10 If you are a former smoker, when did you quit?: 22 yrs ago - Social History Usual Living Arrangement: With Spouse ADL: Support Services History of Recent Travel: No Home Medications - Allergies Allergies/Adverse Reactions: Allergies Allergy/AdvReac Type Severity Reaction Status Date / Time gabapentin [From Neurontin] Allergy PALPITATIONS, Verified 03/02/19 14:41 PASSES OUT Penicillins Allergy TONGUE Verified 03/02/19 14:41 Swelling phenytoin sodium Allergy diarrhea/vo Verified 03/02/19 14:41 [From Dilantin] miting phenytoin sodium extended Allergy Verified 03/02/19 14:41 [From Dilantin] theophylline [Theophylline] Allergy diarrhea,SE Verified 03/02/19 14:41 IZURES fresh garlic Allergy Uncoded 03/02/19 14:41 - Home Medications Home Medications: Ambulatory Orders Baclofen 10 mg PO TID 03/18/19 Benzocaine/Menthol [Cepacol Sore Throat Lozenge] 1 each MM PRN 03/18/19 Budesonide/Formeterol Fumarate [SYMBICORT 160/4.5mcg -] 2 inh PO BID 03/18/19 Ceftriaxone [Rocephin 2Gm Ivpb (Pre-Docked)] 2 gm IVPB DAILY 03/18/19 Diltiazem Cd [Cardizem Cd -] 120 mg PO DAILY 03/18/19 Folic Acid 2 mg PO DAILY 03/18/19 Furosemide 80 mg PO DAILY 03/18/19 Glipizide 10 mg PO BID 03/18/19 Heparin Sodium,Porcine/Pf [Heparin IV Flush 10 Unit/ml Sy] 5 ml IV BID 03/18/19 Hydroxychloroquine So4 [Plaquenil -] 200 mg PO BID 03/18/19 Insulin Aspart [Novolog] 10 unit SQ BID 03/18/19 Insulin Detemir [Levemir Flextouch] 20 unit SQ BID 03/18/19 Levothyroxine Sodium [Levoxyl] 50 mcg PO DAILY 03/18/19 Linaclotide [Linzess] 145 mcg PO DAILY 03/18/19 Losartan Potassium 100 mg PO DAILY 03/18/19 Methotrexate Sodium [Methotrexate] 10 mg PO WEEKLY 03/18/19 Mineral Oil/Hydrophil Petrolat [Dermaphor Ointment] 118 gm TP BID 03/18/19 Montelukast Na [Singulair -] 10 mg PO HS 03/18/19 Multivitamin [Multiple Vitamins] 1 each PO DAILY 03/18/19 Morton-3 Acid Ethyl Esters [Lovaza -] 2,000 mg PO DAILY 03/18/19 Oxycodone HCl 10 mg PO PRN 03/18/19 Pramipexole Di-HCl [Mirapex] 0.5 mg PO HS 03/18/19 Sertraline HCl [Zoloft] 100 mg PO DAILY 03/18/19 Sodium Chloride [Sodium Chloride -] 5 ml IV BID 03/18/19 Topiramate [Topamax] 200 mg PO BID 03/18/19 Umeclidinium [place] [Incruse Ellipta] 62.5 mcg IH DAILY 03/18/19 Vancomycin 1 Gram (Pre-Docked) [Vancomycin (Pre-Docked)] 1,000 mg IVPB BID 03/18 predniSONE [Deltasone -] 5 mg PO 03/18/19 Review of Systems - Review of Systems Constitutional: reports: Malaise Eyes: reports: No Symptoms HENT: reports: No Symptoms Neck: reports: Pain on Movement Cardiovascular: reports: Chest Pain Respiratory: reports: SOB Gastrointestinal: reports: No Symptoms Musculoskeletal: reports: Other (See HPI) Integumentary: reports: No Symptoms Physical Exam Vital Signs: Vital Signs Temperature 98.4 F 03/21/19 14:38 Pulse Rate 87 03/21/19 14:38 Respiratory Rate 18 03/21/19 14:38 Blood Pressure 131/71 03/21/19 14:38 O2 Sat by Pulse Oximetry (%) 96 03/21/19 09:00 Constitutional: Yes: Moderate Distress Eyes: Yes: WNL HENT: Yes: WNL Cardiovascular: Yes: WNL Respiratory: Yes: WNL Gastrointestinal: Yes: WNL Musculoskeletal: Yes: Other (No active joints. Tenderness in 14 out of 14 fibrositic tender points.) Labs: CBC, BMP 03/20/19 07:05 02/04/20 07:05 Laboratory Tests 03/18/19 03/19/19 03/20/19 11:24 12:40 07:05 ESR PT with INR 14.90 H INR 1.26 H PTT (Actin FS) 37.0 H Calcium 9.0 Iron 14 L TIBC 216 L Iron Saturation 6 L Total Bilirubin 0.9 AST 25 ALT 25 Alkaline Phosphatase 101 Creatine Kinase 53 C-Reactive Protein 17.2 H TSH 2.68 Urine Color Urine Appearance Urine pH Ur Specific [place] Urine Protein Urine Glucose (UA) Urine Ketones Urine Blood Urine Nitrite Urine Bilirubin Urine Urobilinogen Ur Leukocyte Esterase 03/20/19 03/21/19 07:05 07:00 ESR 98 H PT with INR INR PTT (Actin FS) Calcium Iron TIBC Iron Saturation Total Bilirubin AST ALT Alkaline Phosphatase Creatine Kinase C-Reactive Protein TSH Urine Color Yellow Urine Appearance Clear Urine pH 6.0 Ur Specific [place] 1.013 Urine Protein Negative Urine Glucose (UA) Negative Urine Ketones Negative Urine Blood Negative Urine Nitrite Negative Urine Bilirubin Negative Urine Urobilinogen 0.2 Ur Leukocyte Esterase Negative Problem List - Problems (1) Fibromyalgia Assessment/Plan: The patient has diffuse pain related to fibromyalgia. She does not have inflammatory arthritis. Code(s): M79.7 - FIBROMYALGIA (2) Lower extremity cellulitis Assessment/Plan: History of recent cellulitis in lower limbs, probably improving. On admission significant elevation of ESR. At the present time no significant erythema in legs. Code(s): L03.119 - CELLULITIS OF UNSPECIFIED PART OF LIMB Qualifiers: Laterality: right Qualified Code(s): L03.115 - Cellulitis of right lower limb (3) SLE (systemic lupus erythematosus) Assessment/Plan: [facility] history of lupus, however recent laboratory work-up revealed JUAN CARLOS positive at a low titer, anti-DNA ds negative and normal complement. She has no renal involvement (there is no abnormal urinary sediment) and no evidence of inflammatory arthritis or other organ involvement. Diffuse pain is related to fibromyalgia. She is been treated with very low dose of Methotrexate and Hydroxychloroquine. It is possible that she does not have lupus. 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 There is no indication for steroids of other additional treatment for this problem. Code(s): M32.9 - SYSTEMIC LUPUS ERYTHEMATOSUS, UNSPECIFIED
--- NOTE | 2019-03-21 19:12 | PN ---
Progress Note (short form) - Note Progress Note: NEUROLOGY PROGRESS: Events reviewed. Patient examined. Pt is more comfortable on Pramipexole 0.5 mg TID (Prior dose from ofice records was 0.5 mg qAM and 1.0 QPM) However, Fe++=14 mg%; LIKR=801; Fe Sat=6 and Ferritin =266. CRP= 17.2 mg%. B12= 547 pg% MRI of LS spine: Normal alignment. Small bulge at L4L5. Essentially a normal study Pt was OO Bed to chair today and ambulated with PT a short distance. EXAM: Pt elevates both legs off bed. Ankle DF= 5/5 B/L Normal reflexes. Normal sensation. IMP: Severe RLS- exacerbated by Iron deficiency SUGGEST: Increase Pramipexole to 0.75 TID Iron supplementation- would strongly suggest IV Rx while hospitalized. Thank you very much, Hugo Block MD
[2019-03-21] MEDS ORDERED: INSULIN (NOVOLOG) ASPART 100 UNITS/ML 10ML VIAL ONE (21:13)
[2019-03-21] MEDS: PRAMIPEXOLE DIHYDROCHLORIDE 0.25 MG TABLET PO SCH (21:57)
[2019-03-21] MEDS: MONTELUKAST NA 10 MG TABLET PO SCH (21:57)
[2019-03-22] MEDS ORDERED: glipiZIDE 5 MG TABLET (FP) ONE (05:45)
[2019-03-22] MEDS: INSULIN (NOVOLOG) ASPART 100 UNITS/ML 10ML VIAL SQ SCH ×2 (06:12→17:49)
[2019-03-22] MEDS: INSULIN (LEVEMIR) 100 UNITS/ML UNITS SQ SCH ×2 (06:13→22:59)
[2019-03-22] MEDS: glipiZIDE 10 MG TABLET (FP) PO SCH ×2 (06:18→17:49)
[2019-03-22] MEDS: LEVOTHYROXINE NA 50 MCG TABLET (FP) PO SCH (06:18)
[2019-03-22] MEDS: PRAMIPEXOLE DIHYDROCHLORIDE 0.25 MG TABLET PO SCH ×3 (06:18→22:55)
--- NOTE | 2019-03-22 09:30 | PN ---
Progress Note (short form) - Note Progress Note: Breathing feels OK this AM. Slept with CPAP for 10 hours last night. No CP or SOB. Intake & Output 03/19/19 03/20/19 03/21/19 03/22/19 23:59 23:59 23:59 23:59 Intake Total 1000 1810 1370 490 Output Total 650 Balance 350 1810 1370 490 Weight 268 lb Last Vital Signs Temp Pulse Resp BP Pulse Ox 99.5 F 86 20 156/71 96 03/22/19 05:52 03/22/19 05:52 03/22/19 05:52 03/22/19 05:52 03/21/19 21:00 Active Medications Acetaminophen (Tylenol -) 650 mg PO Q4H PRN PRN Reason: PAIN Last Admin: 03/19/19 13:02 Dose: 650 mg Benzocaine/Menthol (Cepacol Lozenge -) 1 each MM PRN PRN PRN Reason: SORE THROAT Budesonide/Formoterol Fumarate (Symbicort 160/4.5mcg -) 2 puff IH BID [facility] Last Admin: 03/21/19 22:06 Dose: 2 puff Diltiazem HCl (Cardizem Cd -) 120 mg PO DAILY [facility] Last Admin: 03/21/19 09:51 Dose: 120 mg Folic Acid (Folic Acid -) 2 mg PO DAILY [facility] Last Admin: 03/21/19 09:52 Dose: 2 mg Furosemide (Lasix -) 80 mg PO DAILY [facility] Last Admin: 03/21/19 09:53 Dose: 80 mg Glipizide (Glucotrol -) 10 mg PO BIDAC [facility] Last Admin: 03/22/19 06:18 Dose: Not Given Heparin Sodium (Porcine) (Heparin -) 5,000 unit SQ BID [facility] Last Admin: 03/21/19 21:58 Dose: 5,000 unit Ceftriaxone Sodium 2 gm/ (Dextrose) 100 mls @ 200 mls/hr IVPB DAILY [facility] Last Admin: 03/21/19 09:54 Dose: 200 mls/hr Insulin Aspart (Novolog Vial) 10 units SQ BIDAC [facility] Last Admin: 03/22/19 06:12 Dose: Not Given Insulin Detemir (Levemir Vial) 20 units SQ BID@0700,2200 [facility] Last Admin: 03/22/19 06:13 Dose: Not Given Levothyroxine Sodium (Synthroid -) 50 mcg PO DAILY@0700 [facility] Last Admin: 03/22/19 06:18 Dose: 50 mcg Losartan Potassium (Cozaar -) 100 mg PO DAILY [facility] Last Admin: 03/21/19 09:51 Dose: 100 mg Montelukast Sodium (Singulair -) 10 mg PO HS [facility] Last Admin: 03/21/19 21:57 Dose: 10 mg Multivitamins/Minerals/Vitamin C (Tab-A-Vit -) 1 tab PO DAILY [facility] Last Admin: 03/21/19 09:55 Dose: 1 tab Non-Formulary Medication (Linaclotide [Linzess]) 145 mcg PO DAILY [facility] [id number] Ethyl Esters (Lovaza -) 2 gm PO DAILY [facility] Last Admin: 03/21/19 09:54 Dose: 2 gm Oxycodone HCl (Roxicodone -) 10 mg PO Q6H PRN PRN Reason: PAIN LEVEL 6-10 Last Admin: 03/21/19 06:02 Dose: 10 mg Polysaccharide Iron Complex (Niferex-150 -) 150 mg PO DAILY [facility] Last Admin: 03/21/19 09:54 Dose: 150 mg Pramipexole Dihydrochloride (Mirapex -) 0.75 mg PO TID [facility] Last Admin: 03/22/19 06:18 Dose: 0.75 mg Prednisone (Deltasone -) 5 mg PO DAILY [facility] Last Admin: 03/21/19 09:52 Dose: 5 mg Sertraline HCl (Zoloft -) 100 mg PO DAILY [facility] Last Admin: 03/21/19 09:56 Dose: 100 mg Tiotropium [place] (Spiriva Respimat) 2 puff IH DAILY [facility] Last Admin: 03/21/19 09:55 Dose: 2 puff Topiramate (Topamax -) 200 mg PO BID [facility] Last Admin: 03/21/19 22:00 Dose: 200 mg Vancomycin HCl (Vancomycin (Pre-Docked)) 1,000 mg IVPB BID [facility] Last Admin: 03/21/19 21:59 Dose: 1,000 mg Constitutional: Yes: No Distress, Calm, Obese Eyes: Yes: Conjunctiva Clear, EOM Intact HENT: Yes: Atraumatic, Normocephalic Neck: Yes: Supple, Trachea Midline Cardiovascular: Yes: Regular Rate and Rhythm Respiratory: Yes: CTA Bilaterally, Diminished, On Nasal O2. No: Rales, Rhonchi , SOB, SOB on Exertion, Stridor, Tachypnea, Wheezes ...Inspection: Yes: WNL ...Clubbing: No Gastrointestinal: Yes: Normal Bowel Sounds, Soft, Abdomen, Obese Renal/: Yes: WNL Musculoskeletal: Yes: WNL Extremities: Yes: Erythema Edema: Yes Peripheral Pulses WNL: Yes Integumentary: Yes: Erythema Neurological: Yes: Alert, Oriented ...Motor Strength: WNL Psychiatric: Yes: WNL, Alert, Oriented Labs: Laboratory Results - last 24 hr 03/21/19 03/21/19 03/21/19 06:00 17:02 21:35 ESR 100 H POC Glucometer 167 119 03/22/19 06:10 ESR POC Glucometer 70 Problem List - Problems (1) Lower extremity cellulitis Code(s): L03.119 - CELLULITIS OF UNSPECIFIED PART OF LIMB (2) Diabetes mellitus Code(s): E11.9 - TYPE 2 DIABETES MELLITUS WITHOUT COMPLICATIONS Qualifiers: Diabetes mellitus type: type 2 Diabetes mellitus complication status: with unspecified complications (3) Hypothyroid Code(s): E03.9 - HYPOTHYROIDISM, UNSPECIFIED Qualifiers: Hypothyroidism type: acquired Qualified Code(s): E03.9 - Hypothyroidism, unspecified (4) Lupus Code(s): M32.9 - SYSTEMIC LUPUS ERYTHEMATOSUS, UNSPECIFIED (5) DANY on CPAP Code(s): G47.33 - OBSTRUCTIVE SLEEP APNEA (ADULT) (PEDIATRIC); Z99.89 - DEPENDENCE ON OTHER ENABLING MACHINES AND DEVICES (6) Swelling of both lower extremities Code(s): M79.89 - OTHER SPECIFIED SOFT TISSUE DISORDERS (7) CAD (coronary artery disease) Code(s): I25.10 - ATHSCL HEART DISEASE OF [place] CORONARY ARTERY W/O ANG PCTRS (8) CHF (congestive heart failure) Code(s): I50.9 - HEART FAILURE, UNSPECIFIED Qualifiers: Heart failure type: other Qualified Code(s): I50.9 - Heart failure, unspecified (9) CKD (chronic kidney disease) stage 3, GFR 30-59 ml/min Code(s): N18.3 - CHRONIC KIDNEY DISEASE, STAGE 3 (MODERATE) (10) COPD (chronic obstructive pulmonary disease) Code(s): J44.9 - CHRONIC OBSTRUCTIVE PULMONARY DISEASE, UNSPECIFIED Qualifiers: COPD type: COPD with acute exacerbation Qualified Code(s): J44.1 - Chronic obstructive pulmonary disease with (acute) exacerbation (11) Diabetic peripheral neuropathy Code(s): E11.42 - TYPE 2 DIABETES MELLITUS WITH DIABETIC POLYNEUROPATHY (12) Hypertension Code(s): I10 - ESSENTIAL (PRIMARY) HYPERTENSION Qualifiers: Hypertension type: essential hypertension Qualified Code(s): I10 - Essential (primary) hypertension (13) Hypothyroidism Code(s): E03.9 - HYPOTHYROIDISM, UNSPECIFIED Qualifiers: Hypothyroidism type: unspecified Qualified Code(s): E03.9 - Hypothyroidism , unspecified (14) Morbid obesity Code(s): E66.01 - MORBID (SEVERE) OBESITY DUE TO EXCESS CALORIES (15) SLE (systemic lupus erythematosus) Code(s): M32.9 - SYSTEMIC LUPUS ERYTHEMATOSUS, UNSPECIFIED (16) Seizure disorder Code(s): G40.909 - EPILEPSY, UNSP, NOT INTRACTABLE, WITHOUT STATUS EPILEPTICUS (17) Sleep apnea, obstructive Code(s): G47.33 - OBSTRUCTIVE SLEEP APNEA (ADULT) (PEDIATRIC) (18) Type 2 diabetes mellitus Code(s): E11.9 - TYPE 2 DIABETES MELLITUS WITHOUT COMPLICATIONS Qualifiers: Diabetes mellitus senior living insulin use: without emt intermediate use Diabetes mellitus complication status: with kidney complications Diabetes mellitus complication detail: with chronic kidney disease Chronic kidney disease stage : unspecified stage Qualified Code(s): E11.22 - Type 2 diabetes mellitus with diabetic chronic kidney disease Assessment/Plan CPAP @ 10 cm H2O Supplemental O2 as needed Advair BID No indication for systemic steroids at this time No smoking ABX per ID VTE prophylaxis Dr Gibson Problem List - Problems (1) Lower extremity cellulitis Code(s): L03.119 - CELLULITIS OF UNSPECIFIED PART OF LIMB (2) Diabetes mellitus Code(s): E11.9 - TYPE 2 DIABETES MELLITUS WITHOUT COMPLICATIONS Qualifiers: Diabetes mellitus type: type 2 Diabetes mellitus complication status: with unspecified complications (3) Hypothyroid Code(s): E03.9 - HYPOTHYROIDISM, UNSPECIFIED Qualifiers: Hypothyroidism type: acquired Qualified Code(s): E03.9 - Hypothyroidism, unspecified (4) Lupus Code(s): M32.9 - SYSTEMIC LUPUS ERYTHEMATOSUS, UNSPECIFIED (5) DANY on CPAP Code(s): G47.33 - OBSTRUCTIVE SLEEP APNEA (ADULT) (PEDIATRIC); Z99.89 - DEPENDENCE ON OTHER ENABLING MACHINES AND DEVICES (6) Swelling of both lower extremities Code(s): M79.89 - OTHER SPECIFIED SOFT TISSUE DISORDERS (7) CAD (coronary artery disease) Code(s): I25.10 - ATHSCL HEART DISEASE OF [place] CORONARY ARTERY W/O ANG PCTRS (8) CHF (congestive heart failure) Code(s): I50.9 - HEART FAILURE, UNSPECIFIED Qualifiers: Heart failure type: other Qualified Code(s): I50.9 - Heart failure, unspecified (9) CKD (chronic kidney disease) stage 3, GFR 30-59 ml/min Code(s): N18.3 - CHRONIC KIDNEY DISEASE, STAGE 3 (MODERATE) (10) COPD (chronic obstructive pulmonary disease) Code(s): J44.9 - CHRONIC OBSTRUCTIVE PULMONARY DISEASE, UNSPECIFIED Qualifiers: COPD type: COPD with acute exacerbation Qualified Code(s): J44.1 - Chronic obstructive pulmonary disease with (acute) exacerbation (11) Diabetic peripheral neuropathy Code(s): E11.42 - TYPE 2 DIABETES MELLITUS WITH DIABETIC POLYNEUROPATHY (12) Hypertension Code(s): I10 - ESSENTIAL (PRIMARY) HYPERTENSION Qualifiers: Hypertension type: essential hypertension Qualified Code(s): I10 - Essential (primary) hypertension (13) Hypothyroidism Code(s): E03.9 - HYPOTHYROIDISM, UNSPECIFIED Qualifiers: Hypothyroidism type: unspecified Qualified Code(s): E03.9 - Hypothyroidism , unspecified (14) Morbid obesity Code(s): E66.01 - MORBID (SEVERE) OBESITY DUE TO EXCESS CALORIES (15) SLE (systemic lupus erythematosus) Code(s): M32.9 - SYSTEMIC LUPUS ERYTHEMATOSUS, UNSPECIFIED (16) Seizure disorder Code(s): G40.909 - EPILEPSY, UNSP, NOT INTRACTABLE, WITHOUT STATUS EPILEPTICUS (17) Sleep apnea, obstructive Code(s): G47.33 - OBSTRUCTIVE SLEEP APNEA (ADULT) (PEDIATRIC) (18) Type 2 diabetes mellitus Code(s): E11.9 - TYPE 2 DIABETES MELLITUS WITHOUT COMPLICATIONS Qualifiers: Diabetes mellitus emt intermediate insulin use: without senior living use Diabetes mellitus complication status: with kidney complications Diabetes mellitus complication detail: with chronic kidney disease Chronic kidney disease stage : unspecified stage Qualified Code(s): E11.22 - Type 2 diabetes mellitus with diabetic chronic kidney disease
--- NOTE | 2019-03-22 09:33 | PN ---
Progress Note, Physician Chief Complaint: B/L LE pain B/L LE weakness History of Present Illness: Previous notes and events reviewed awake and alert NAD complain of pain to B/L lower extremity complain of difficulty ambulating denies chest pain or SOB BC neg Lumbar MRI reviewed - Current Medication List Current Medications: Active Medications Acetaminophen (Tylenol -) 650 mg PO Q4H PRN PRN Reason: PAIN Last Admin: 03/19/19 13:02 Dose: 650 mg Benzocaine/Menthol (Cepacol Lozenge -) 1 each MM PRN PRN PRN Reason: SORE THROAT Budesonide/Formoterol Fumarate (Symbicort 160/4.5mcg -) 2 puff IH BID [facility] Last Admin: 03/21/19 22:06 Dose: 2 puff Diltiazem HCl (Cardizem Cd -) 120 mg PO DAILY [facility] Last Admin: 03/21/19 09:51 Dose: 120 mg Folic Acid (Folic Acid -) 2 mg PO DAILY [facility] Last Admin: 03/21/19 09:52 Dose: 2 mg Furosemide (Lasix -) 80 mg PO DAILY [facility] Last Admin: 03/21/19 09:53 Dose: 80 mg Glipizide (Glucotrol -) 10 mg PO BIDAC [facility] Last Admin: 03/22/19 06:18 Dose: Not Given Heparin Sodium (Porcine) (Heparin -) 5,000 unit SQ BID [facility] Last Admin: 03/21/19 21:58 Dose: 5,000 unit Ceftriaxone Sodium 2 gm/ (Dextrose) 100 mls @ 200 mls/hr IVPB DAILY [facility] Last Admin: 03/21/19 09:54 Dose: 200 mls/hr Insulin Aspart (Novolog Vial) 10 units SQ BIDAC [facility] Last Admin: 03/22/19 06:12 Dose: Not Given Insulin Detemir (Levemir Vial) 20 units SQ BID@0700,2200 [facility] Last Admin: 03/22/19 06:13 Dose: Not Given Levothyroxine Sodium (Synthroid -) 50 mcg PO DAILY@0700 [facility] Last Admin: 03/22/19 06:18 Dose: 50 mcg Losartan Potassium (Cozaar -) 100 mg PO DAILY [facility] Last Admin: 03/21/19 09:51 Dose: 100 mg Montelukast Sodium (Singulair -) 10 mg PO HS [facility] Last Admin: 03/21/19 21:57 Dose: 10 mg Multivitamins/Minerals/Vitamin C (Tab-A-Vit -) 1 tab PO DAILY [facility] Last Admin: 03/21/19 09:55 Dose: 1 tab Non-Formulary Medication (Linaclotide [Linzess]) 145 mcg PO DAILY [facility] [id number] Ethyl Esters (Lovaza -) 2 gm PO DAILY [facility] Last Admin: 03/21/19 09:54 Dose: 2 gm Oxycodone HCl (Roxicodone -) 10 mg PO Q6H PRN PRN Reason: PAIN LEVEL 6-10 Last Admin: 03/21/19 06:02 Dose: 10 mg Polysaccharide Iron Complex (Niferex-150 -) 150 mg PO DAILY [facility] Last Admin: 03/21/19 09:54 Dose: 150 mg Pramipexole Dihydrochloride (Mirapex -) 0.75 mg PO TID [facility] Last Admin: 03/22/19 06:18 Dose: 0.75 mg Prednisone (Deltasone -) 5 mg PO DAILY [facility] Last Admin: 03/21/19 09:52 Dose: 5 mg Sertraline HCl (Zoloft -) 100 mg PO DAILY [facility] Last Admin: 03/21/19 09:56 Dose: 100 mg Tiotropium [place] (Spiriva Respimat) 2 puff IH DAILY [facility] Last Admin: 03/21/19 09:55 Dose: 2 puff Topiramate (Topamax -) 200 mg PO BID [facility] Last Admin: 03/21/19 22:00 Dose: 200 mg Vancomycin HCl (Vancomycin (Pre-Docked)) 1,000 mg IVPB BID [facility] Last Admin: 03/21/19 21:59 Dose: 1,000 mg - Objective Vital Signs: Vital Signs Temperature 99.5 F 03/22/19 05:52 Pulse Rate 86 03/22/19 05:52 Respiratory Rate 20 03/22/19 05:52 Blood Pressure 156/71 03/22/19 05:52 O2 Sat by Pulse Oximetry (%) 96 03/21/19 21:00 Constitutional: Yes: No Distress, Calm, Obese Eyes: Yes: Conjunctiva Clear HENT: Yes: Atraumatic Cardiovascular: Yes: Regular Rate and Rhythm Respiratory: Yes: Regular, Diminished Gastrointestinal: Yes: Normal Bowel Sounds, Soft, Abdomen, Obese Musculoskeletal: Yes: Muscle Weakness Extremities: Yes: WNL Edema: Yes Edema: LLE: 1+, RLE: 1+ Neurological: Yes: Alert, Oriented Psychiatric: Yes: Alert, Oriented Labs: CBC, BMP 03/20/19 07:05 03/20/19 07:05 INR, PTT INR 1.26 (0.83-1.09) H 03/18/19 11:24 Microbiology 03/18/19 11:24 Blood - Peripheral Venous Blood Culture - Preliminary NO GROWTH OBTAINED AFTER 96 HOURS, INCUBATION TO CONTINUE FOR 1 DAYS. 03/18/19 11:24 Blood - Peripheral Venous Blood Culture - Preliminary NO GROWTH OBTAINED AFTER 96 HOURS, INCUBATION TO CONTINUE FOR 1 DAYS. 03/21/19 07:00 Urine - Urine Clean Catch Urine Culture - Preliminary Presumptive Ps Aeruginosa Problem List - Problems (1) COPD (chronic obstructive pulmonary disease) Assessment/Plan: -Pulmonary on board -O2 via NC -keep SpO2 >90% -bronchodilators -Symbicort -Spiriva -Prednisone Code(s): J44.9 - CHRONIC OBSTRUCTIVE PULMONARY DISEASE, UNSPECIFIED Qualifiers: COPD type: chronic bronchitis (2) Diabetes mellitus Assessment/Plan: -[facility] -Glucotrol -Levemir BID -HgA1c 5.8% Code(s): E11.9 - TYPE 2 DIABETES MELLITUS WITHOUT COMPLICATIONS Qualifiers: Diabetes mellitus type: type 2 Diabetes mellitus complication status: with unspecified complications (3) Hypothyroid Assessment/Plan: -Levothyroxine Code(s): E03.9 - HYPOTHYROIDISM, UNSPECIFIED Qualifiers: Hypothyroidism type: acquired Qualified Code(s): E03.9 - Hypothyroidism, unspecified (4) Lupus Assessment/Plan: -Rheumatology on board -CRP 17.2, ESR 100 Code(s): M32.9 - SYSTEMIC LUPUS ERYTHEMATOSUS, UNSPECIFIED (5) Obesity Assessment/Plan: -Dietary consult Code(s): E66.9 - OBESITY, UNSPECIFIED Qualifiers: Obesity type: unspecified obesity type (6) Right leg swelling Assessment/Plan: -No erythema -TTP -ID on board -BC neg -Ceftriaxone, Vancomycin -no leukocytosis Code(s): M79.89 - OTHER SPECIFIED SOFT TISSUE DISORDERS (7) CHF (congestive heart failure) Assessment/Plan: -Furosemide -1L fluid restriction -strict I&Os -daily weights -low Na diet Code(s): I50.9 - HEART FAILURE, UNSPECIFIED Qualifiers: Heart failure type: other Qualified Code(s): I50.9 - Heart failure, unspecified (8) Hypertension Assessment/Plan: -Cardizem, Losartan -low Na diet Code(s): I10 - ESSENTIAL (PRIMARY) HYPERTENSION Qualifiers: Hypertension type: essential hypertension Qualified Code(s): I10 - Essential (primary) hypertension (9) Sleep apnea, obstructive Assessment/Plan: -Pulmonary on board -Bipap HS -O2 via NC -keep SpO2 >90% Code(s): G47.33 - OBSTRUCTIVE SLEEP APNEA (ADULT) (PEDIATRIC) (10) Lower extremity weakness Assessment/Plan: -Orthopedic on board -Neurology on board -PT -fall precaution -Lumbar MRI shows no evidence of disc herniation, central spinal canal stenosis , or neural foraminal narrowing Code(s): R29.898 - OT SYMPTOMS AND SIGNS INVOLVING THE MUSCULOSKELETAL SYSTEM (11) Lower extremity cellulitis Assessment/Plan: -ID on board -BC neg -Ceftriaxone, Vancomycin -no leukocytosis -afebrile Code(s): L03.119 - CELLULITIS OF UNSPECIFIED PART OF LIMB Qualifiers: Laterality: right Qualified Code(s): L03.115 - Cellulitis of right lower limb Assessment/Plan see problem list dvt ppx
[2019-03-22] MEDS ORDERED: PT OWN MED DRAWER 7, Y5N ONE ×2 (10:07→13:14)
[2019-03-22] MEDS ORDERED: DEXTROSE 5%-WATER 100 ML IVPB ONE (10:08)
[2019-03-22] MEDS: LOSARTAN POTASSIUM 50 MG TABLET (FP) PO SCH (12:05)
[2019-03-22] MEDS: FOLIC ACID 1 MG TABLET (FP) PO SCH (12:06)
[2019-03-22] MEDS: IRON POLYSACCHARIDES 150 MG CAPSULE PO SCH (12:06)
[2019-03-22] MEDS: FUROSEMIDE 40 MG TABLET (FP) PO SCH (12:06)
[2019-03-22] MEDS: SERTRALINE HCL 50 MG TABLET (FP) PO SCH (12:06)
[2019-03-22] MEDS: MULTIVITAMINS (DAILY MVI) TABLET (FP) PO SCH (12:06)
[2019-03-22] MEDS: HEPARIN NA (PORCINE) 5,000 UNITS/ML 1ML VIAL SQ SCH ×2 (12:07→22:59)
[2019-03-22] MEDS: predniSONE 5 MG TABLET (UD) PO SCH (12:07)
[2019-03-22] MEDS: CEFTRIAXONE 2 GM in DEXTROSE 5%-WATER 100 ML IVPB SCH (12:08)
[2019-03-22] MEDS: OMEGA-3 ACID ETHYL ESTERS (FATTY-ACIDS) 1 GM CAPSULE (FP) PO SCH (12:08)
[2019-03-22] MEDS: VANCOMYCIN 1 GM in D5W (PRE-DOCKED) 1,000 MG/250 ML IVPB SCH ×2 (12:10→23:02)
[2019-03-22] MEDS: TOPIRAMATE 200 MG TABLET (FP) PO SCH ×2 (12:10→23:01)
[2019-03-22] MEDS: BUDESONIDE/FORMETEROL FUMARATE 160/4.5 mcg INHALER IH SCH ×2 (12:11→23:01)
[2019-03-22] MEDS: TIOTROPIUM BROMIDE 2.5 MCG (SPIRIVA) RESPIMAT INHALER IH SCH (12:11)
[2019-03-22] MEDS: ACETAMINOPHEN 325 MG TABLET (FP) PO PRN (22:54)
[2019-03-22] MEDS: MONTELUKAST NA 10 MG TABLET PO SCH (23:01)
[2019-03-23] MEDS ORDERED: glipiZIDE 5 MG TABLET (FP) ONE (06:19)
[2019-03-23] MEDS: PRAMIPEXOLE DIHYDROCHLORIDE 0.25 MG TABLET PO SCH ×2 (06:45→17:38)
[2019-03-23] MEDS: glipiZIDE 10 MG TABLET (FP) PO SCH ×2 (06:46→17:39)
[2019-03-23] MEDS: LEVOTHYROXINE NA 50 MCG TABLET (FP) PO SCH (06:46)
[2019-03-23] MEDS: ACETAMINOPHEN 325 MG TABLET (FP) PO PRN ×2 (06:51→10:22)
[2019-03-23] MEDS: INSULIN (NOVOLOG) ASPART 100 UNITS/ML 10ML VIAL SQ SCH ×2 (06:51→17:39)
[2019-03-23] MEDS: INSULIN (LEVEMIR) 100 UNITS/ML UNITS SQ SCH (06:52)
--- NOTE | 2019-03-23 08:59 | PN ---
Progress Note, Physician - Current Medication List Current Medications: Active Medications Acetaminophen (Tylenol -) 650 mg PO Q4H PRN PRN Reason: PAIN Last Admin: 03/23/19 06:51 Dose: 650 mg Benzocaine/Menthol (Cepacol Lozenge -) 1 each MM PRN PRN PRN Reason: SORE THROAT Budesonide/Formoterol Fumarate (Symbicort 160/4.5mcg -) 2 puff IH BID [facility] Last Admin: 03/22/19 23:01 Dose: 2 puff Diltiazem HCl (Cardizem Cd -) 120 mg PO DAILY [facility] Last Admin: 03/22/19 12:07 Dose: 120 mg Folic Acid (Folic Acid -) 2 mg PO DAILY [facility] Last Admin: 03/22/19 12:06 Dose: 2 mg Furosemide (Lasix -) 80 mg PO DAILY [facility] Last Admin: 03/22/19 12:06 Dose: 80 mg Glipizide (Glucotrol -) 10 mg PO BIDAC [facility] Last Admin: 03/23/19 06:46 Dose: 10 mg Heparin Sodium (Porcine) (Heparin -) 5,000 unit SQ BID [facility] Last Admin: 03/22/19 22:59 Dose: 5,000 unit Ceftriaxone Sodium 2 gm/ (Dextrose) 100 mls @ 200 mls/hr IVPB DAILY [facility] Last Admin: 03/22/19 12:08 Dose: 200 mls/hr Insulin Aspart (Novolog Vial) 10 units SQ BIDAC [facility] Last Admin: 03/23/19 06:51 Dose: 10 units Insulin Detemir (Levemir Vial) 20 units SQ BID@0700,2200 [facility] Last Admin: 03/23/19 06:52 Dose: 20 units Levothyroxine Sodium (Synthroid -) 50 mcg PO DAILY@0700 [facility] Last Admin: 03/23/19 06:46 Dose: 50 mcg Losartan Potassium (Cozaar -) 100 mg PO DAILY [facility] Last Admin: 03/22/19 12:05 Dose: 100 mg Montelukast Sodium (Singulair -) 10 mg PO HS [facility] Last Admin: 03/22/19 23:01 Dose: 10 mg Multivitamins/Minerals/Vitamin C (Tab-A-Vit -) 1 tab PO DAILY [facility] Last Admin: 03/22/19 12:06 Dose: 1 tab Non-Formulary Medication (Linaclotide [Linzess]) 145 mcg PO DAILY [facility] [id number] Ethyl Esters (Lovaza -) 2 gm PO DAILY [facility] Last Admin: 03/22/19 12:08 Dose: 2 gm Polysaccharide Iron Complex (Niferex-150 -) 150 mg PO DAILY [facility] Last Admin: 03/22/19 12:06 Dose: 150 mg Pramipexole Dihydrochloride (Mirapex -) 0.75 mg PO TID [facility] Last Admin: 03/23/19 06:45 Dose: 0.75 mg Prednisone (Deltasone -) 5 mg PO DAILY [facility] Last Admin: 03/22/19 12:07 Dose: 5 mg Sertraline HCl (Zoloft -) 100 mg PO DAILY [facility] Last Admin: 03/22/19 12:06 Dose: 100 mg Tiotropium [place] (Spiriva Respimat) 2 puff IH DAILY [facility] Last Admin: 03/22/19 12:11 Dose: 2 puff Topiramate (Topamax -) 200 mg PO BID [facility] Last Admin: 03/22/19 23:01 Dose: 200 mg Vancomycin HCl (Vancomycin (Pre-Docked)) 1,000 mg IVPB BID [facility] Last Admin: 03/22/19 23:02 Dose: 1,000 mg - Objective Vital Signs: Vital Signs Temperature 98 F 03/23/19 05:00 Pulse Rate 78 03/23/19 05:00 Respiratory Rate 18 03/23/19 05:00 Blood Pressure 140/63 03/23/19 05:00 O2 Sat by Pulse Oximetry (%) 93 L 03/23/19 08:13 Labs: CBC, BMP 03/20/19 07:05 03/20/19 07:05 INR, PTT INR 1.26 (0.83-1.09) H 03/18/19 11:24 Problem List - Problems (1) COPD (chronic obstructive pulmonary disease) Code(s): J44.9 - CHRONIC OBSTRUCTIVE PULMONARY DISEASE, UNSPECIFIED Qualifiers: COPD type: chronic bronchitis (2) Diabetes mellitus Code(s): E11.9 - TYPE 2 DIABETES MELLITUS WITHOUT COMPLICATIONS Qualifiers: Diabetes mellitus type: type 2 Diabetes mellitus complication status: with unspecified complications (3) Hypothyroid Code(s): E03.9 - HYPOTHYROIDISM, UNSPECIFIED Qualifiers: Hypothyroidism type: acquired Qualified Code(s): E03.9 - Hypothyroidism, unspecified (4) Lupus Code(s): M32.9 - SYSTEMIC LUPUS ERYTHEMATOSUS, UNSPECIFIED (5) Obesity Code(s): E66.9 - OBESITY, UNSPECIFIED Qualifiers: Obesity type: unspecified obesity type (6) Right leg swelling Code(s): M79.89 - OTHER SPECIFIED SOFT TISSUE DISORDERS (7) CHF (congestive heart failure) Code(s): I50.9 - HEART FAILURE, UNSPECIFIED Qualifiers: Heart failure type: other Qualified Code(s): I50.9 - Heart failure, unspecified (8) Hypertension Code(s): I10 - ESSENTIAL (PRIMARY) HYPERTENSION Qualifiers: Hypertension type: essential hypertension Qualified Code(s): I10 - Essential (primary) hypertension (9) Sleep apnea, obstructive Code(s): G47.33 - OBSTRUCTIVE SLEEP APNEA (ADULT) (PEDIATRIC) (10) Lower extremity weakness Code(s): R29.898 - OTH SYMPTOMS AND SIGNS INVOLVING THE MUSCULOSKELETAL SYSTEM (11) Lower extremity cellulitis Code(s): L03.119 - CELLULITIS OF UNSPECIFIED PART OF LIMB Qualifiers: Laterality: right Qualified Code(s): L03.115 - Cellulitis of right lower limb
[2019-03-23 09:25] LABS: HEMATOCRIT 32.3 % (32.4-45.2); HEMOGLOBIN 10.4 GM/dL (10.7-15.3); MCHC 32.1 g/dl (32.0-36.0); MEAN CELL VOLUME 90.3 fl (80-96); MEAN PLT VOLUME 7.9 fl (7.5-11.1); PLATELET COUNT 386 K/MM3 (134-434); RBC 3.58 M/mm3 (3.60-5.2); RDW 15.7 % (11.6-15.6); WHITE BLOOD COUNT 11.2 K/mm3 (4.0-10.0)
[2019-03-23 10:02] LABS: ALBUMIN 2.9 g/dl (3.4-5.0); BILIRUBIN,TOTAL 0.2 mg/dL (0.2-1); BLOOD UREA NITROGEN 18.7 mg/dL (7-18); TOT PROT 7.7 g/dl (6.4-8.2)
[2019-03-23] MEDS ORDERED: PT OWN MED DRAWER 7, Y5N ONE (10:17)
[2019-03-23] MEDS ORDERED: DEXTROSE 5%-WATER 100 ML IVPB ONE (10:18)
[2019-03-23] MEDS: CEFTRIAXONE 2 GM in DEXTROSE 5%-WATER 100 ML IVPB SCH (10:21)
[2019-03-23] MEDS: FUROSEMIDE 40 MG TABLET (FP) PO SCH (10:22)
[2019-03-23] MEDS: predniSONE 5 MG TABLET (UD) PO SCH (10:22)
[2019-03-23] MEDS: FOLIC ACID 1 MG TABLET (FP) PO SCH (10:22)
[2019-03-23] MEDS: MULTIVITAMINS (DAILY MVI) TABLET (FP) PO SCH (10:22)
[2019-03-23] MEDS: SERTRALINE HCL 50 MG TABLET (FP) PO SCH (10:22)
[2019-03-23] MEDS: IRON POLYSACCHARIDES 150 MG CAPSULE PO SCH (10:22)
--- NOTE | 2019-03-23 10:22 | DS ---
Physical Examination Vital Signs: Vital Signs Temperature 98 F 03/23/19 05:00 Pulse Rate 78 03/23/19 05:00 Respiratory Rate 18 03/23/19 05:00 Blood Pressure 140/63 03/23/19 05:00 O2 Sat by Pulse Oximetry (%) 93 L 03/23/19 08:13 Findings/Remarks: Laboratory Last Values WBC 11.2 K/mm3 (4.0-10.0) H 03/23/19 08:50 RBC 3.58 M/mm3 (3.60-5.2) L 03/23/19 08:50 Hgb 10.4 GM/dL (10.7-15.3) L 03/23/19 08:50 Hct 32.3 % (32.4-45.2) L 03/23/19 08:50 MCV 90.3 fl (80-96) 03/23/19 08:50 MCH 29.0 pg (25.7-33.7) 03/23/19 08:50 MCHC 32.1 g/dl (32.0-36.0) 03/23/19 08:50 RDW 15.7 % (11.6-15.6) H 03/23/19 08:50 Plt Count 386 K/MM3 (134-434) 03/23/19 08:50 MPV 7.9 fl (7.5-11.1) 03/23/19 08:50 Absolute Neuts (auto) 6.0 K/mm3 (1.5-8.0) 03/20/19 07:05 Neutrophils % 60.6 % (42.8-82.8) 03/20/19 07:05 Lymphocytes % 24.4 % (8-40) D 03/20/19 07:05 Monocytes % 13.0 % (3.8-10.2) H 03/20/19 07:05 Eosinophils % 1.2 % (0-4.5) D 03/20/19 07:05 Basophils % 0.8 % (0-2.0) 03/20/19 07:05 Nucleated RBC % 0 % (0-0) 03/20/19 07:05 ESR 100 mm/hr (0-30) H 03/21/19 06:00 PT with INR 14.90 SEC (9.7-13.0) H 03/18/19 11:24 INR 1.26 (0.83-1.09) H 03/18/19 11:24 PTT (Actin FS) 37.0 SECONDS (25.2-36.5) H 03/18/19 11:24 Sodium 137 mmol/L (136-145) 03/23/19 08:50 Potassium 4.0 mmol/L (3.5-5.1) 03/23/19 08:50 Chloride 103 mmol/L (98-107) 03/23/19 08:50 Carbon Dioxide 25 mmol/L (21-32) 03/23/19 08:50 Anion Gap 8 MMOL/L (8-16) 03/23/19 08:50 BUN 18.7 mg/dL (7-18) H 03/23/19 08:50 Creatinine 1.0 mg/dL (0.55-1.3) 03/23/19 08:50 Est GFR (CKD-EPI)AfAm 69.44 03/23/19 08:50 Est GFR (CKD-EPI)NonAf 59.91 03/23/19 08:50 POC Glucometer 125 UNITS (80-120) 03/23/19 05:34 Random Glucose 99 mg/dL (74-106) 03/23/19 08:50 Hemoglobin A1c % 5.8 % (4.2-6.3) 03/19/19 12:40 Lactic Acid 1.1 mmol/L (0.4-2.0) 03/18/19 11:24 Uric Acid 5.5 mg/dL (2.6-7.2) 03/19/19 12:40 Calcium 9.0 mg/dL (8.5-10.1) 03/23/19 08:50 Iron 14 ug/dL (50-175) L 03/20/19 07:05 TIBC 216 ug/dL (250-450) L 03/20/19 07:05 Iron Saturation 6 % (17.5-39) L 03/20/19 07:05 Unsaturated IBC 202 ug/dL (200-275) 03/20/19 07:05 Ferritin 266.1 ng/ml (8-388) 03/20/19 07:05 Total Bilirubin 0.2 mg/dL (0.2-1) 03/23/19 08:50 AST 46 U/L (15-37) H 03/23/19 08:50 ALT 60 U/L (13-61) 03/23/19 08:50 Alkaline Phosphatase 108 U/L (45-117) 03/23/19 08:50 Creatine Kinase 53 U/L (26-192) 03/20/19 07:05 C-Reactive Protein 17.2 MG/DL (0.00-0.3) H 03/20/19 07:05 Total Protein 7.7 g/dl (6.4-8.2) 03/23/19 08:50 Albumin 2.9 g/dl (3.4-5.0) L 03/23/19 08:50 Vitamin B12 547 pg/ml (193-986) 03/20/19 07:05 TSH 2.68 uIU/ml (0.358-3.74) 03/19/19 12:40 Free T4 1.05 ng/dl (0.76-1.46) 03/19/19 12:40 Urine Color Yellow 03/21/19 07:00 Urine Appearance Clear 03/21/19 07:00 Urine pH 6.0 (5.0-8.0) 03/21/19 07:00 Ur Specific Stopover 1.013 (1.010-1.035) 03/21/19 07:00 Urine Protein Negative (NEGATIVE) 03/21/19 07:00 Urine Glucose (UA) Negative (NEGATIVE) 03/21/19 07:00 Urine Ketones Negative (NEGATIVE) 03/21/19 07:00 Urine Blood Negative (NEGATIVE) 03/21/19 07:00 Urine Nitrite Negative (NEGATIVE) 03/21/19 07:00 Urine Bilirubin Negative (NEGATIVE) 03/21/19 07:00 Urine Urobilinogen 0.2 mg/dL (0.2-1.0) 03/21/19 07:00 Ur Leukocyte Esterase Negative (NEGATIVE) 03/21/19 07:00 Vancomycin Pre-Dose 22.0 ug/ml (18-26) 03/22/19 14:06 JUAN CARLOS Screen Positive (.) H 03/21/19 08:06 JUAN CARLOS Homogeneous Pattern TNP 03/21/19 08:06 JUAN CARLOS Nucleolar Pattern TNP 03/21/19 08:06 JUAN CARLOS Spindle [place] Pattern TNP 03/21/19 08:06 JUAN CARLOS Midbody Pattern TNP 03/21/19 08:06 JUAN CARLOS Centriole Pattern TNP 03/21/19 08:06 JUAN CARLOS Nuclear Dot Pattern TNP 03/21/19 08:06 JUAN CARLOS PCNA Pattern TNP 03/21/19 08:06 JUAN CARLOS Nuclear Membr Pat TNP 03/21/19 08:06 JUAN CARLOS Speckled Pattern 1:160 (.) H 03/21/19 08:06 JUAN CARLOS Centromere Pattern TNP 03/21/19 08:06 Tot Complement (CH50) > 60 U/mL (>41) 03/21/19 08:06 Influenza A (Rapid) Negative (Negative) 03/19/19 Unknown Influenza B (Rapid) Negative (Negative) 03/19/19 Unknown Active Medications Generic Name Dose Route Start Last Admin Trade Name Freq PRN Reason Stop Dose Admin Acetaminophen 650 mg 03/19/19 12:23 03/23/19 06:51 Tylenol - PO 650 mg Q4H PRN Administration PAIN Benzocaine/Menthol 1 each 03/19/19 08:15 Cepacol Lozenge - MM PRN PRN SORE THROAT Budesonide/Formoterol Fumarate 2 puff 03/18/19 22:00 03/22/19 23:01 Symbicort 160/4.5mcg - IH 2 puff BID DONTA Administration Diltiazem HCl 120 mg 03/19/19 10:00 03/22/19 12:07 Cardizem Cd - PO 120 mg DAILY DONTA Administration Folic Acid 2 mg 03/19/19 10:00 03/22/19 12:06 Folic Acid - PO 2 mg DAILY DONTA Administration Furosemide 80 mg 03/19/19 10:00 03/22/19 12:06 Lasix - PO 80 mg DAILY DONTA Administration Glipizide 10 mg 03/18/19 19:30 03/23/19 06:46 Glucotrol - PO 10 mg BIDAC DONTA Administration Heparin Sodium (Porcine) 5,000 unit 03/18/19 22:00 03/22/19 22:59 Heparin - SQ 5,000 unit BID DONTA Administration Ceftriaxone Sodium 2 gm/ 100 mls @ 200 mls/hr 03/19/19 10:00 03/22/19 12:08 Dextrose IVPB 200 mls/hr DAILY DONTA Administration Insulin Aspart 10 units 03/18/19 19:45 03/23/19 06:51 Novolog Vial SQ 10 units BIDAC DONTA Administration Insulin Detemir 20 units 03/18/19 22:00 03/23/19 06:52 Levemir Vial SQ 20 units BID@0700,2200 DONTA Administration Levothyroxine Sodium 50 mcg 03/19/19 07:00 03/23/19 06:46 Synthroid - PO 50 mcg DAILY@0700 DONTA Administration Losartan Potassium 100 mg 03/19/19 10:00 03/22/19 12:05 Cozaar - PO 100 mg DAILY DONTA Administration Montelukast Sodium 10 mg 03/18/19 22:00 03/22/19 23:01 Singulair - PO 10 mg HS DONTA Administration Multivitamins/Minerals/Vitamin C 1 tab 03/19/19 10:00 03/22/19 12:06 Tab-A-Vit - PO 1 tab DAILY DONTA Administration Non-Formulary Medication 145 mcg 03/19/19 10:00 Linaclotide [Linzess] PO DAILY [facility] [id number] Ethyl Esters 2 gm 03/19/19 10:00 03/22/19 12:08 Lovaza - PO 2 gm DAILY [facility] Administration Polysaccharide Iron Complex 150 mg 03/21/19 10:00 03/22/19 12:06 Niferex-150 - PO 150 mg DAILY DONTA Administration Pramipexole Dihydrochloride 0.75 mg 03/21/19 22:00 03/23/19 06:45 Mirapex - PO 0.75 mg TID DONTA Administration Prednisone 5 mg 03/19/19 10:00 03/22/19 12:07 Deltasone - PO 5 mg DAILY DONTA Administration Sertraline HCl 100 mg 03/19/19 10:00 03/22/19 12:06 Zoloft - PO 100 mg DAILY [facility] Administration Tiotropium [place] 2 puff 03/19/19 16:00 03/22/19 12:11 Spiriva Respimat IH 2 puff DAILY [facility] Administration Topiramate 200 mg 03/19/19 02:43 03/22/19 23:01 Topamax - PO 200 mg BID DONTA Administration Vancomycin HCl 1,000 mg 03/19/19 22:00 03/22/19 23:02 Vancomycin (Pre-Docked) IVPB 1,000 mg BID DONTA Administration Microbiology 03/18/19 11:24 Blood - Peripheral Venous Blood Culture - Preliminary NO GROWTH OBTAINED AFTER 96 HOURS, INCUBATION TO CONTINUE FOR 1 DAYS. 03/18/19 11:24 Blood - Peripheral Venous Blood Culture - Preliminary NO GROWTH OBTAINED AFTER 96 HOURS, INCUBATION TO CONTINUE FOR 1 DAYS. 03/21/19 07:00 Urine - Urine Clean Catch Urine Culture - Preliminary Presumptive Ps Aeruginosa Constitutional: Yes: No Distress, Calm, Obese Eyes: Yes: Conjunctiva Clear HENT: Yes: Atraumatic Cardiovascular: Yes: Regular Rate and Rhythm Respiratory: Yes: Regular, Diminished, On Nasal O2 Gastrointestinal: Yes: Normal Bowel Sounds, Soft, Abdomen, Obese Musculoskeletal: Yes: Muscle Weakness Extremities: Yes: WNL Edema: Yes Neurological: Yes: Alert, Oriented, Weakness Psychiatric: Yes: Alert, Oriented Labs: CBC, BMP 03/23/19 08:50 03/23/19 08:50 Discharge Summary Problems reviewed: Yes Reason For Visit: CELLULITIS OF LOWER EXTREMITY,SWELLING OF Current Active Problems Fever (Acute) Fibromyalgia (Acute) Lower extremity cellulitis (Acute) Lower extremity weakness (Acute) Hospital Course: 64yo F with PMH of OA s/p right total knee replacement 02/08/19 at [facility], SLE, HTN, HLD, IDDM2, hypothyroidism, who presents with increasing bilateral lower extremity pain, swelling, and redness since Tuesday evening. Her pain is so severe ("like I'm being hit with a sledgehammer) that she has been unable to walk since Tuesday. She was treated for cellulitis during the hospital course for the replacement with vancomycin and ceftriaxone x1 week. She reports a fever of 100.6 earlier today. Also has chills and nausea. States she has not eaten anything since yesterday but is feeling like she can eat now. She has no history of DVT or clotting disorders. No chest or shortness of breath. - Problems (1) COPD (chronic obstructive pulmonary disease) Assessment/Plan: -Pulmonary on board -O2 via NC -keep SpO2 >90% -bronchodilators -Symbicort -Spiriva -Prednisone Code(s): J44.9 - CHRONIC OBSTRUCTIVE PULMONARY DISEASE, UNSPECIFIED Qualifiers: COPD type: chronic bronchitis (2) Diabetes mellitus Assessment/Plan: -BGM ACHS -ISS -Glucotrol -Levemir BID -HgA1c 5.8% Code(s): E11.9 - TYPE 2 DIABETES MELLITUS WITHOUT COMPLICATIONS Qualifiers: Diabetes mellitus type: type 2 Diabetes mellitus complication status: with unspecified complications (3) Hypothyroid Assessment/Plan: -Levothyroxine Code(s): E03.9 - HYPOTHYROIDISM, UNSPECIFIED Qualifiers: Hypothyroidism type: acquired Qualified Code(s): E03.9 - Hypothyroidism, unspecified (4) Lupus Assessment/Plan: -Rheumatology on board -CRP 17.2, ESR 100 Code(s): M32.9 - SYSTEMIC LUPUS ERYTHEMATOSUS, UNSPECIFIED (5) Obesity Assessment/Plan: -Dietary consult Code(s): E66.9 - OBESITY, UNSPECIFIED Qualifiers: Obesity type: unspecified obesity type (6) Right leg swelling Assessment/Plan: -No erythema -TTP -ID on board -BC neg -Ceftriaxone, Vancomycin -no leukocytosis Code(s): M79.89 - OTHER SPECIFIED SOFT TISSUE DISORDERS (7) CHF (congestive heart failure) Assessment/Plan: -Furosemide -1L fluid restriction -strict I&Os -daily weights -low Na diet Code(s): I50.9 - HEART FAILURE, UNSPECIFIED Qualifiers: Heart failure type: other Qualified Code(s): I50.9 - Heart failure, unspecified (8) Hypertension Assessment/Plan: -Cardizem, Losartan -low Na diet Code(s): I10 - ESSENTIAL (PRIMARY) HYPERTENSION Qualifiers: Hypertension type: essential hypertension Qualified Code(s): I10 - Essential (primary) hypertension (9) Sleep apnea, obstructive Assessment/Plan: -Pulmonary on board -Bipap HS -O2 via NC -keep SpO2 >90% Code(s): G47.33 - OBSTRUCTIVE SLEEP APNEA (ADULT) (PEDIATRIC) (10) Lower extremity weakness Assessment/Plan: -Orthopedic on board -Neurology on board -PT -fall precaution -Lumbar MRI shows no evidence of disc herniation, central spinal canal stenosis , or neural foraminal narrowing Code(s): R29.898 - OTH SYMPTOMS AND SIGNS INVOLVING THE MUSCULOSKELETAL SYSTEM (11) Lower extremity cellulitis Assessment/Plan: -ID on board -BC neg -Ceftriaxone, Vancomycin -no leukocytosis -afebrile Code(s): L03.119 - CELLULITIS OF UNSPECIFIED PART OF LIMB Qualifiers: Laterality: right Qualified Code(s): L03.115 - Cellulitis of right lower limb Assessment/Plan see problem list dvt ppx Condition: Stable - Instructions Diet, Activity, Other Instructions: Follow up with pmd Follow up with Dr Block Neurology in 2 weeks of discharge continue with Vancomycin and Ceftriaxone until scheduled date of completed Vanco level q3days will need PT/OT for lower extremity weakness return to ER if develop severe pain, respiratory distress, chest pain Referrals: Goran Hernandez MD [Primary Care Provider] - Hugo Block MD [Staff Physician] - Jayden Knight MD [Staff Physician] - Disposition: ALF FACILITY - Home Medications Comprehensive Discharge Medication List: Ambulatory Orders Baclofen 10 mg PO TID 03/18/19 Benzocaine/Menthol [Cepacol Sore Throat Lozenge] 1 each MM PRN 03/18/19 Budesonide/Formeterol Fumarate [SYMBICORT 160/4.5mcg -] 2 inh PO BID 03/18/19 Ceftriaxone [Rocephin 2Gm Ivpb (Pre-Docked)] 2 gm IVPB DAILY 03/18/19 Diltiazem Cd [Cardizem Cd -] 120 mg PO DAILY 03/18/19 Folic Acid 2 mg PO DAILY 03/18/19 Furosemide 80 mg PO DAILY 03/18/19 Glipizide 10 mg PO BID 03/18/19 Heparin Sodium,Porcine/Pf [Heparin IV Flush 10 Unit/ml Sy] 5 ml IV BID 03/18/19 Hydroxychloroquine So4 [Plaquenil -] 200 mg PO BID 03/18/19 Insulin Aspart [Novolog] 10 unit SQ BID 03/18/19 Insulin Detemir [Levemir Flextouch] 20 unit SQ BID 03/18/19 Levothyroxine Sodium [Levoxyl] 50 mcg PO DAILY 03/18/19 Linaclotide [Linzess] 145 mcg PO DAILY 03/18/19 Losartan Potassium 100 mg PO DAILY 03/18/19 Methotrexate Sodium [Methotrexate] 10 mg PO WEEKLY 03/18/19 Mineral Oil/Hydrophil [place] [Dermaphor Ointment] 118 gm TP BID 03/18/19 Montelukast Na [Singulair -] 10 mg PO HS 03/18/19 Multivitamin [Multiple Vitamins] 1 each PO DAILY 03/18/19 [place]-3 Acid Ethyl Esters [Lovaza -] 2,000 mg PO DAILY 03/18/19 Oxycodone HCl 10 mg PO PRN 03/18/19 Sertraline HCl [Zoloft] 100 mg PO DAILY 03/18/19 Sodium Chloride [Sodium Chloride -] 5 ml IV BID 03/18/19 Topiramate [Topamax] 200 mg PO BID 03/18/19 Umeclidinium [place] [Incruse Ellipta] 62.5 mcg IH DAILY 03/18/19 Vancomycin 1 Gram (Pre-Docked) [Vancomycin (Pre-Docked)] 1,000 mg IVPB BID 03/18 predniSONE [Deltasone -] 5 mg PO 03/18/19 Ceftriaxone [Rocephin -] 2 gm IVPB DAILY vial 03/23/19 Heparin - 5,000 unit SQ BID vial 03/23/19 Iron Polysaccharides [Niferex-150 -] 150 mg PO DAILY capsule 03/23/19 Pramipexole Dihydrochloride [Mirapex -] 0.75 mg PO TID tablet 03/23/19 Vancomycin 1 Gram (Pre-Docked) [Vancomycin (Pre-Docked)] 1,000 mg IVPB BID bag 03/23/19
[2019-03-23] MEDS: OMEGA-3 ACID ETHYL ESTERS (FATTY-ACIDS) 1 GM CAPSULE (FP) PO SCH (10:23)
[2019-03-23] MEDS: HEPARIN NA (PORCINE) 5,000 UNITS/ML 1ML VIAL SQ SCH (10:23)
[2019-03-23] MEDS: LOSARTAN POTASSIUM 50 MG TABLET (FP) PO SCH (10:23)
[2019-03-23] MEDS: BUDESONIDE/FORMETEROL FUMARATE 160/4.5 mcg INHALER IH SCH (10:24)
[2019-03-23] MEDS: TOPIRAMATE 200 MG TABLET (FP) PO SCH (10:24)
[2019-03-23] MEDS: TIOTROPIUM BROMIDE 2.5 MCG (SPIRIVA) RESPIMAT INHALER IH SCH (10:25)
[2019-03-23] MEDS: VANCOMYCIN 1 GM in D5W (PRE-DOCKED) 1,000 MG/250 ML IVPB SCH (12:20)
[2019-03-23 15:11] VITALS: BP 150/82; PULSE 94; TEMP 98.2
== END 2019-03-23 17:38 | DRG 556 ==
LOC: JER 09:52 → JERBED 16:41 → J6S 21:52
PROVIDERS: ADMIT Family Medicine; ATTEND Family Medicine
DX: M79.7 Fibromyalgia (principal); I13.0 Hypertensive heart and chronic kidney disease with heart failure and stage 1 through stage 4 chronic kidney disease, or unspecified chronic kidney disease; Z68.42 Body mass index [BMI] 45.0-49.9, adult; J44.9 Chronic obstructive pulmonary disease, unspecified; Z99.81 Dependence on supplemental oxygen; G47.33 Obstructive sleep apnea (adult) (pediatric); M32.9 Systemic lupus erythematosus, unspecified; E66.01 Morbid (severe) obesity due to excess calories; E11.22 Type 2 diabetes mellitus with diabetic chronic kidney disease; I50.9 Heart failure, unspecified; E03.9 Hypothyroidism, unspecified; Z79.4 Long term (current) use of insulin; Z87.891 Personal history of nicotine dependence; Z88.0 Allergy status to penicillin; D64.9 Anemia, unspecified; G25.81 Restless legs syndrome; G43.909 Migraine, unspecified, not intractable, without status migrainosus; I25.10 Atherosclerotic heart disease of native coronary artery without angina pectoris; N18.3 Chronic kidney disease, stage 3 (moderate); E11.42 Type 2 diabetes mellitus with diabetic polyneuropathy; G40.909 Epilepsy, unspecified, not intractable, without status epilepticus; R50.9 Fever, unspecified
CPT/HCPCS: 36415; 71045-TC-FY; 72148-TC; 80053; 81003; 82550; 82607; 82728; 82962; 83036; 83540; 83550; 83605; 84439; 84443; 84550; 85025; 85027; 85610; 85651; 85730; 86038; 86140; 86162; 86225; 87040; 87086; 87186; 87804; 93005; 93010; 93970-TC; 94660; 97161-GP; 99285-25; G0480; J0475; J1644